=== PATIENT | female | born 1950 | race Caucasian/White ===

== ENCOUNTER 2017-04-05 12:16 | Outpatient (RCR) | payer MEDICARE, OTHER, SELFPAY ==
[2017-04-05 13:59] LABS: International Normalized Ratio 2.2; Prothrombin Time (Protime)PT. 23.9 SECONDS (11.7-14.9)
== END 2017-04-05 12:17 | disposition home or self-care (01) ==
LOC: LAB 12:16
PROVIDERS: Family Provider Family Medicine; PCP Family Medicine
DX: Z79.01 Long term (current) use of 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 (principal); Z79.899 Other long term (current) drug therapy
CPT/HCPCS: 36415; 85610

== ENCOUNTER 2017-05-06 12:20 | Outpatient (RCR) | payer MEDICARE, OTHER, SELFPAY ==
[2017-04-28 17:28] LABS: Prothrombin Time (Protime)PT. 34.4 SECONDS (11.7-14.9)
[2017-04-28 17:52] LABS: International Normalized Ratio 3.6
[2017-05-06 14:16] LABS: International Normalized Ratio 2.1
== END 2017-05-06 13:00 | disposition home or self-care (01) ==
LOC: LAB 12:20
PROVIDERS: Family Provider Family Medicine; PCP Family Medicine
DX: Z79.01 Long term (current) use of 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 (principal)
CPT/HCPCS: 36415; 85610

== ENCOUNTER → 2017-05-20 14:38 | Outpatient (CLI) | payer MEDICARE, OTHER, SELFPAY | PROVIDERS: Family Provider Family Medicine; PCP Family Medicine; Visit Provider Family Medicine | DX: N30.00 Acute cystitis without hematuria (principal); I48.91 Unspecified atrial fibrillation | CPT/HCPCS: 87086; 87088; 87186 ==

== ENCOUNTER → 2017-06-16 11:24 | Outpatient (CLI) | payer MEDICARE, OTHER, SELFPAY ==
[2017-06-16 16:03] LABS: International Normalized Ratio 2.7; Prothrombin Time (Protime)PT. 29.2 SECONDS (11.7-14.9)
== END ==
PROVIDERS: Family Provider Family Medicine; PCP Family Medicine
DX: Z79.01 Long term (current) use of 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 (principal); R39.11 Hesitancy of micturition
CPT/HCPCS: 36415; 85610; 87086

== ENCOUNTER → 2017-07-08 14:37 | Outpatient (CLI) | payer MEDICARE, OTHER, SELFPAY ==
[2017-07-08 17:13] LABS: International Normalized Ratio 2.3; Prothrombin Time (Protime)PT. 25.6 SECONDS (11.7-14.9)
== END ==
PROVIDERS: Family Provider Family Medicine; PCP Family Medicine
DX: Z79.01 Long term (current) use of 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 (principal)
CPT/HCPCS: 36415; 85610

== ENCOUNTER 2017-07-21 14:00 | Outpatient (RCR) | payer MEDICARE, OTHER, SELFPAY ==
--- NOTE | 2017-06-22 12:12 | HP.PTEVAL_ITS ---
Patient's Visit Information SVEN ALEJO is a 67 year old F referred to Physical Therapy by Everette Adkins MD with a diagnosis of Right Knee. Date of Evaluation: 06/22/17 Physical Therapist: Ivett García - Visit Plan Frequency: 2x /Week Duration: 4 Weeks Plan: Focus on LE and core s/s. - Subjective Subjective: Pt reports that one night she came home and slipped on water in her basement and landed on her R knee - pt knee was bleeding and was in excruciating pain. Pt called upstairs for and they called ambulance to take her to [facility] and the next day she had a aditya and screws placed in her femur - done by Dr. Stallworth. Fell on june 27, had surgery the - released from hospital on 07/25/16. During hospitalization, pt had small stroke and 2 blood clots. Pt reports that she had both knees replaced about a 2 years ago - L knee replaced june 2015 and R knee august [address] Adkins. Patient reports that the hip is good- no pain but the knee is not great. New in the past year she has had a hip injection about 4 months ago for bursitis. No new surgeries. It still clicks, grinds and carries on due to bone grown and bone spur. He could scrap with surgery but doesn?t want to due to infection. 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 Her main concern is that she doesn?t trust the right knee it just reji under her. MD is not as concerned about it as she is but thinks it needs strength. Has to use steps at work and uses them non recip but is nervous to carry things in her hands. Fear of falling when the knee reji. Worst pain is 2/10 with weather changes, stairs, and extra use. Best : 0/10 Eases: rest. Pain is located in the knee itself- no radiating pain. The feet get ice cold but they are N/T. Describes pain as dull and achy- no sharp/shooting for about 4 months. Uses a walker when she goes long distances or uneven surfaces. Sleep: is still sleeping in the recliner- but in the process of getting a new elevated bed for GERD and the knee. PMHx: no changes Meds: coumade, losartan, Prilosec, altase. X-rays last week on the knee. - Objective Posture: FH, RS. Gait: antalgic- decreased stance on the right LE- poor heel/ toe pattern secondary to decreased ROM. HR/TR: able but reports discomfort with heel raise. SLS: can SLS but required UE A. Stairs: non recip with 2 HR. Palpation: tender throughout knee joint medial and lateal joint lines, quad and down the calf to the ankle. ROM: 0-95 degrees with firm end feel. Strength : Ankle: 5/5 Knee: flexion: 4/5, extn: 4-/5, Hip: 4-/5 throughout Core: fair minus - Goals Goal 1:: Patient will be I with HEP and progression Goal Time Frame: 4-6 Weeks Goal 2:: Patient will ambulate >300 feet with a normalized gait pattern Goal Time Frame: 4-6 Weeks Goal 3:: Patient will asc/desc 8 recip with 1 HR Goal Time Frame: 4-6 Weeks Goal 4:: Patient will demo 4+/5 strength in LE Goal Time Frame: 4-6 Weeks - Rehabilitation Potential Physical Therapy Diagnosis: Patient presents with hypomobility- she has decreased ROM, strength and muscular endurance s/p multiple surgeries to the right knee. Rehabilitation Potential: Fair - Anticipated Interventions Patient/Client Instruction: Educate patient on: Benefits of Fitness Program For the Purpose of:: To increase tolerance to activity/condition/position Therapeutic Exercise to Include: Strength training, Endurance training, Balance training, Agility training, Body mechanics, Postural training, Gait and locomotor training, Dynamic Lumbar Stabilization For the Purpose of:: To improve muscle performance and motor function TENS: Yes Cryotherapy (ice pack, ice massage): Yes Thermo therapy (hot pack): Yes Ultrasound (thermal/non thermal): No For the Purpose of:: To decrease pain Thank you for the opportunity to evaluate your patient. For Medicare and Medicare HMO plans, please review the plan of care and approve it. It will need to be FAXED BACK to us at [phone] for Medicare purposes. Please let me know if there are questions or concerns regarding this plan of care. Physician Signature: Date:
--- NOTE | 2017-07-21 14:24 | HP.PTDCSUM_ITS ---
HP - PT D/C Summary It has been my pleasure to treat SVEN ALEJO under orders from Everette Adkins MD, for the diagnosis of Right Knee for a total of 9 visit(s). Discharge Date: Please see the following information for a summary of their discharge status. - Subjective Subjective: Patient reports that the soreness is the same- doesn't feel its muscle feels its more bone related. Goes back to [place] in 3 months but will call sooner. - Pain Right knee Pain Intensity (Out of 10): 4 - Overall Improvement % Improvement: 50 - Objective Objective/Function: Posture: FH, RS. Gait: antalgic- decreased stance on the right LE- poor heel/toe pattern secondary to decreased ROM. HR/TR: able but reports discomfort with heel raise. SLS: can SLS but required UE A. Stairs: non recip with 2 HR due to pain. Palpation: tender throughout knee joint medial and lateal joint lines, quad and down the calf to the ankle. ROM: 0-95 degrees with firm end feel. Strength: Ankle: 5/5 Knee: flexion: 4+/5, extn: 4/5 , Hip: 4/5 throughout Core: fair minus - Goals Goal 1:: Patient will be I with HEP and progression Goal Progress: Goal Met Goal 2:: Patient will ambulate >300 feet with a normalized gait pattern Goal Progress: Progressing Goal 3:: Patient will asc/desc 8 recip with 1 HR Goal Progress: Progressing Goal 4:: Patient will demo 4+/5 strength in LE Goal Progress: Progressing - Plan Plan: Discharge- return to MD for further evaluation - D/C Information If there are questions or concerns regarding this patient's physical therapy, please feel free to call me at [phone]. Thank you for the referral of this patient. Sincerely, Ivett García
== END 2017-07-21 19:00 | disposition home or self-care (01) ==
LOC: PT 14:00
PROVIDERS: Family Provider Family Medicine; PCP Family Medicine; Visit Provider Specialist
DX: M97.11XD Periprosthetic fracture around internal prosthetic right knee joint, subsequent encounter (principal); Z96.651 Presence of right artificial knee joint
CPT/HCPCS: 97110; 97162; 97164

== ENCOUNTER → 2017-08-23 13:40 | Outpatient (CLI) | payer MEDICARE, OTHER, SELFPAY ==
[2017-08-23 16:04] LABS: International Normalized Ratio 2.6; Prothrombin Time (Protime)PT. 28.1 SECONDS (11.7-14.9)
== END ==
PROVIDERS: Family Provider Family Medicine; PCP Family Medicine
DX: Z79.01 Long term (current) use of 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 (principal)
CPT/HCPCS: 36415; 85610

== ENCOUNTER → 2017-10-18 13:45 | Outpatient (CLI) | payer MEDICARE, OTHER, SELFPAY ==
[2017-10-18 15:58] LABS: International Normalized Ratio 2.6; Prothrombin Time (Protime)PT. 28.3 SECONDS (11.7-14.9)
== END ==
PROVIDERS: Family Provider Family Medicine; PCP Family Medicine
DX: Z79.01 Long term (current) use of 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 (principal)
CPT/HCPCS: 36415; 85610

== ENCOUNTER → 2017-12-12 11:01 | Outpatient (CLI) | payer MEDICARE, OTHER, SELFPAY ==
[2017-12-12 15:33] LABS: International Normalized Ratio 2.3
== END ==
PROVIDERS: Family Provider Family Medicine; PCP Family Medicine
DX: Z79.01 Long term (current) use of 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 (principal)
CPT/HCPCS: 36415; 85610

== ENCOUNTER → 2018-02-20 10:01 | Outpatient (CLI) | payer MEDICARE, OTHER, SELFPAY ==
[2018-02-20 12:18] LABS: International Normalized Ratio 2.2; Prothrombin Time (Protime)PT. 24.6 SECONDS (11.7-14.9)
--- OUTSIDE RECORDS SUMMARY | 2018-05-24 23:00 | XMS RPT_ITS | Summary of Care ---
:1950 Author Organization [facility] Address [address] [place] [address] Care Team Providers Name Role Phone Jad Pepe MD Primary Care Provider Reason for Referral Cardio (Routine) Status Reason Specialty Diagnoses / Referred By Referred To Procedures Contact Contact Pending Review Cardiology Diagnoses Bilateral carotid artery stenosis Peres, Jas Procedures Carotid Duplex MD cT [address] [address] Cardio (Routine) Status Reason Specialty Diagnoses / Referred By Referred To Procedures Contact Contact Pending Review Cardiology Diagnoses Bilateral carotid artery stenosis Peres, Jas Procedures Carotid Duplex MD Tc [address] [place] [address] Reason for Visit Cardio (Routine) Status Reason Specialty Diagnoses / Referred By Referred To Procedures Contact Contact Pending Review Cardiology Diagnoses Bilateral carotid artery stenosis Peres, Jas Procedures Carotid Duplex MD Tc [address] [address] Encounter Details Date Type Department Care Team Description 12/26/2017 Hospital Encounter [facility] Heart & Peres, Jas Bilateral carotid Vascular Physicians MD Tc artery stenosis [address] [facility] [address] [place], [place] [phone] [address] Allergies Active Allergy Reactions Severity Noted Date Comments Metformin Diarrhea Medium 10/23/2014 Pt currently taking even with complaints of diarrhea. Nsaids (Non-Steroidal Other (See Comments) 10/23/2014 nausea Anti-Inflammatory Drug) Fluoxetine 03/17/2016 Tevstll-Uxt-Obm Low 04/06/2017 Right upper quadrant Reductase Inhibitors pain with atorva, rosuva, simva, prava as of this encounter Medications Prescription Sig. Disp. Refills Start Date End Date Status warfarin (COUMADIN) 5 Take 1 (one) 45 tablet 11 05/10/2017 Active MG tabletIndications: tablet (5 mg 5mg 5 day's a week total) by mouth 7.5mg two days a week daily OR as directed. sotalol (BETAPACE) 120 Take 1 (one) 180 tablet 3 05/10/2017 Active MG tablet tablet (120 mg total) by mouth 2 (two) times a day. losartan-hydrochlorothi Take 1 (one) 90 tablet 3 05/31/2017 Active azide (HYZAAR) 50-12.5 tablet by mouth mg per tablet daily. as of this encounter Active Problems Problem Noted Date CVA (cerebral vascular accident) (HCC) 10/10/2016 Last Assessment & Plan: Postoperative stroke last year and it was unclear if it was related to A. fib and a subtherapeutic INR versus carotid stenosis. She has done well on her current regimen. I will repeat carotid duplex imaging. Bilateral carotid artery stenosis 10/10/2016 Last Assessment & Plan: History of mild disease in the right, 70% by noninvasive imaging per outside facility, I will repeat a duplex in May 2017 to make sure there has not been any progression. Atrial fibrillation ([facility]) 10/23/2014 Last Assessment & Plan: She is in sinus rhythm today. Her EKGs during hospitalization for the flu also demonstrated sinus rhythm. Continue warfarin and sotalol, no changes HTN (hypertension) 10/23/2014 Last Assessment & Plan: Her losartan hydrochlorothiazide was discontinued during hospitalization due to hypovolemia and acute kidney injury. Blood pressure is fantastic today at 117/78 yesterday was elevated in the 150s. I did not restart her medicines and I asked her to continue monitoring home blood pressure we can always restart it as needed. Diabetes ([facility]) 10/23/2014 Last Assessment & Plan: Improved after weight loss Dyslipidemia associated with type 2 diabetes mellitus (HCC) 10/23/2014 Last Assessment & Plan: She tells me that she has right upper quadrant pain with statins and she tells me she has tried Crestor, pravastatin, Lipitor and Zocor. She is unable to tolerate these meds, she may need something like a PCSK 9 inhibitor. Obviously cost is going to be an issue there so we will have to work through insurance. Social History Tobacco Use Types Packs/Day Years Used Date Never Smoker Smokeless Tobacco: Never Used Alcohol Use Drinks/Week oz/Week Comments Yes 0 Standard drinks or equivalent 0.0 once yearly Sex Assigned at Date Recorded Not on file as of this encounter Plan of Treatment Upcoming Encounters Date Type Specialty Care Team Description 12/28/2017 Office Visit Cardiology Jas Peres MD [address] [place] [address] [phone] Health Maintenance Due Date Last Done Comments CLASS III : CREATININE 1950 CLASS III : EKG 1950 CLASS III : MAGNESIUM 1950 CLASS III : POTASSIUM 1950 COLONOSCOPY 1950 DEXA SCAN 1950 HEPATITIS C SCREENING 1948 FOOT EXAM 1958 OPHTHALMOLOGY EXAM 1958 URINE MICROALBUMIN 1958 ZOSTER VACCINES (1 of 2) 1998 PNEUMOCOCCAL VACCINE AGE 65+ (1 of 2013 2 - PCV13) HEMOGLOBIN A1C 03/23/2015 09/20/2014, 05/01/2014 CLASS III : OFFICE VISIT 10/04/2017 04/06/2017, 10/06/2016, 03/17/2016, Additional history exists SEQUENTIAL INFLUENZA VACCINE (#1) 2017 TETANUS EVERY 10 YR 09/09/2023 09/08/2013 as of this encounter Procedures Procedure Name Priority Date/Time Associated Diagnosis Comments US DOPPLER CAROTID Routine 12/26/2017 12:46 PM Bilateral carotid Results for this EDT artery stenosis procedure are in the results section. in this encounter Results US DOPPLER CAROTID (12/26/2017 12:46 PM) Narrative Performed At Non-Invasive Vascular EM RAD Patient:? MELO ERWINBRIANNE Vickie? Med Rec#:?[id number]? (Age): 1950(67y) ? Study Date:?12/26/2017? Room#:? Type:?Outpatient? Sex:? F Reading:?Jas Peres MD, RPVI Referring:?JAS PERES ASHVIN Supervisor Fur Dressing:?Lori Rasheed RD, RVT Procedure Info:? [id number] Study Quality:?Carotid Duplex: adequate Diagnosis: I65.22?Occlusion and stenosis of left carotid artery Carotid Duplex? Conclusions There was no evidence of stenosis of the right common carotid artery. There was minimal stenosis (1-19%) in the right internal carotid artery. There were elevated velocities in the right external carotid artery, suggestive of stenosis.?The right vertebral artery was patent with antegrade flow.?There was no evidence of stenosis in the right subclavian artery. There was no evidence of stenosis of the left common carotid artery. There was critical stenosis (90-99%) of the left internal carotid artery.?There were elevated velocities in the left external carotid artery, suggestive of stenosis.?The left vertebral artery was patent with antegrade flow.?There was no evidence of stenosis in the left subclavian artery. Supervisor Fur Dressing's Comments:Previous study done 05/13/2017 showed 1-39% stenosis in right ICA with peak systolic velocity 70 cm/s and peak diastolic velocity of 18 cm/s and 60-79% stenosis of left ICA with peak velocity 212 cm/s and peak diastolic velocity 46 cm/s Findings The right common carotid artery showed no evidence of plaque.?The right internal carotid artery contained a small amount of plaque, heterogeneous in consistency.?The right external carotid artery contained a moderate amount of plaque, heterogeneous in consistency. The left common carotid artery showed no evidence of plaque.?The left internal carotid artery contained a large amount of calcified plaque. The left external carotid artery contained a small amount of calcified plaque. Notify Results Results called to Dr. Jas Peres?at 12/26/2017 12:39:01. The procedure was explained to the patient.?The patient voiced understanding.? Measurements ? Right Carotid PSV ? Name? Value?Units?PCCA? 115?cm/sec?MCCA? 94.3? cm/sec?DCCA? 93.5? cm/sec?PICA? -98?cm/sec?ANIVAL? -109? cm/sec?DICA? -112? cm/sec?ECA?2 24?cm/sec?Vertebral?-43.7?cm/sec?PSCA? 107?cm/sec? Right Carotid EDV ? Name? Value?Units?PCCA? 25? cm/sec?MCCA? 24.2? cm/sec?DCCA? 27.6? cm/sec?PICA? -29.9?cm/sec?ANIVAL? -39.2?cm/sec?DICA? -36.1?cm/sec?ECA?3 1.7? cm/sec?Vertebral?-13.2?cm/sec? Left Carotid PSV ? Name? Value?Units?PCCA? 98.7? cm/sec?MCCA? 96? cm/sec?DCCA? 68? cm/sec?PICA? 580?cm/sec?ANIVAL? -322? cm/sec?DICA? -71.8?cm/sec?ECA?- 174? cm/sec?Vertebral?-54.3?cm/sec?PSCA? -118? cm/sec? Left Carotid EDV ? Name? Value?Units?PCCA? 29.5? cm/sec?MCCA? 23.1? cm/sec?DCCA? 15.2? cm/sec?PICA? 233?cm/sec?ANIVAL? -104? cm/sec?DICA? -27.6?cm/sec?ECA?- 29.2?cm/sec?Vertebral?-19.2?cm/sec? Blood Pressures and Ratios ? Name? Value?Units?R ICA/CCA?1.04? ratio?L ICA/CCA?6?rati o? History ? Carotid Artery Stenosis. ? CVA. ? Diabetes. ? Hypertension. Electronically signed at 12/26/2017 13:08:38 by: Jas Peres MD, RPVI Procedure Note Interface, Rad In Heartlab Xper [facility] - 12/26/2017 1:10 PM EDT Non-Invasive Vascular Patient: MELO Johnston [facility] Rec#: [id number] (Age): 1950(67y) Study Date: 12/26/2017 Room#: Type: Outpatient Sex: F Reading: Jas Peres MD, RPVI Referring: JAS PERES ASHVIN Supervisor Fur Dressing: Lori Rasheed IHSAN, RVT Procedure Info: [id number] Study Quality: Carotid Duplex: adequate Diagnosis: I65.22 Occlusion and stenosis of left carotid artery Carotid Duplex Conclusions There was no evidence of stenosis of the right common carotid artery. There was minimal stenosis (1-19%) in the right internal carotid artery. There were elevated velocities in the right external carotid artery, suggestive of stenosis. The right vertebral artery was patent with antegrade flow. There was no evidence of stenosis in the right subclavian artery. There was no evidence of stenosis of the left common carotid artery. There was critical stenosis (90-99%) of the left internal carotid artery. There were elevated velocities in the left external carotid artery, suggestive of stenosis. The left vertebral artery was patent with antegrade flow. There was no evidence of stenosis in the left subclavian artery. Supervisor Fur Dressing's Comments:Previous study done 05/13/2017 showed 1-39% stenosis in right ICA with peak systolic velocity 70 cm/s and peak diastolic velocity of 18 cm/s and 60-79% stenosis of left ICA with peak velocity 212 cm/s and peak diastolic velocity 46 cm/s Findings The right common carotid artery showed no evidence of plaque. The right internal carotid artery contained a small amount of plaque, heterogeneous in consistency. The right external carotid artery contained a moderate amount of plaque, heterogeneous in consistency. The left common carotid artery showed no evidence of plaque. The left internal carotid artery contained a large amount of calcified plaque. The left external carotid artery contained a small amount of calcified plaque. Notify Results Results called to Dr. Jas Peres at 12/26/2017 12:39:01. The procedure was explained to the patient. The patient voiced understanding. Measurements Right Carotid PSV Name Value Units PCCA 115 cm/sec MCCA 94.3 cm/sec DCCA 93.5 cm/sec PICA -98 cm/sec ANIVAL -109 cm/sec DICA -112 cm/sec ECA 224 cm/sec Vertebral -43.7 cm/sec PSCA 107 cm/sec Right Carotid EDV Name Value Units PCCA 25 cm/sec MCCA 24.2 cm/sec DCCA 27.6 cm/sec PICA -29.9 cm/sec ANIVAL -39.2 cm/sec DICA -36.1 cm/sec ECA 31.7 cm/sec Vertebral -13.2 cm/sec Left Carotid PSV Name Value Units PCCA 98.7 cm/sec MCCA 96 cm/sec DCCA 68 cm/sec PICA 580 cm/sec ANIVAL -322 cm/sec DICA -71.8 cm/sec ECA -174 cm/sec Vertebral -54.3 cm/sec PSCA -118 cm/sec Left Carotid EDV Name Value Units PCCA 29.5 cm/sec MCCA 23.1 cm/sec DCCA 15.2 cm/sec PICA 233 cm/sec ANIVAL -104 cm/sec DICA -27.6 cm/sec ECA -29.2 cm/sec Vertebral -19.2 cm/sec Blood Pressures and Ratios Name Value Units R ICA/CCA 1.04 ratio L ICA/CCA 6 ratio History Carotid Artery Stenosis. CVA. Diabetes. Hypertension. Electronically signed at 12/26/2017 13:08:38 by: Jas Peres MD, VI Performing Organization Address City/State/Zipcode Phone Number [facility] [address] [place] [address] in this encounter Visit Diagnoses Diagnosis Bilateral carotid artery stenosis Occlusion and stenosis of carotid artery without mention of cerebral infarction
--- OUTSIDE RECORDS SUMMARY | 2018-05-24 23:00 | XMS RPT_ITS | Summary of Care ---
:1950 Author Organization [facility] Address [address] [place] [address] Care Team Providers Name Role Phone Jad Pepe MD Primary Care Provider Reason for Referral MRI/CAT/PET Scan (Routine) Status Reason Specialty Diagnoses / Procedures Referred By Contact Referred To Contact Closed Radiology Diagnoses Bilateral carotid artery stenosis Vic Christie, Procedures CT Angiogram Neck [address] [place] [address] Reason for Visit MRI/CAT/PET Scan (Routine) Status Reason Specialty Diagnoses / Procedures Referred By Contact Referred To Contact Closed Radiology Diagnoses Bilateral carotid artery stenosis Vic Christie, Procedures CT Angiogram Neck [address] [address] Encounter Details Date Type Department Care Team Description 01/05/2018 Documentation [facility] Physicians Vic Christie, Arrived Group [address] [place] [id number] Allergies Active Allergy Reactions Severity Noted Date Comments Fluoxetine Hcl Other (See Comments) 03/18/2017 Isosorbide Other (See Comments) 03/18/2017 Metformin Diarrhea Medium 10/23/2014 Pt currently taking even with complaints of diarrhea. Nsaids (Non-Steroidal Other (See Comments) 10/23/2014 nausea Anti-Inflammatory Drug) Fluoxetine 03/17/2016 Gvbgqmp-Xog-Trv Low 04/06/2017 Right upper quadrant Reductase Inhibitors [...] tablet by mouth mg per tablet daily. glipiZIDE (GLUCOTROL) 5 Take 5 mg by 1 11/16/2017 Active MG tablet mouth 2 (two) times a day. loratadine (CLARITIN) Take 10 mg by 07/23/2016 Active 10 mg tablet mouth at bedtime. famotidine (PEPCID) 10 Take 10 mg by 07/23/2016 Active MG tablet mouth daily. HEALTHPRO GLUCOSE Use to check 0 11/16/2017 Active MONITOR Misc blood sugars once daily and as needed HEALTHPRO TEST STRIPS use to check 5 11/16/2017 Active strips blood sugar once daily and as needed albuterol sulfate Inhale 1-2 puffs 03/20/2017 Active (PROAIR HFA INHL) daily as needed. as of this encounter Active Problems Problem [...] has not been any progression. Atrial fibrillation (HCC) 10/23/2014 Last Assessment & Plan: She is [...] can always restart it as needed. Diabetes (HCC) 10/23/2014 Last Assessment & Plan: Improved after [...] Encounters Date Type Specialty Care Team Description 01/09/2018 Appointment Cardiology Vic Christie MD [address] [place] [address] [phone] 01/09/2018 Appointment Cardiology Vic Christie MD [address] [address] [phone] 01/09/2018 Appointment Cardiology Vic Christie MD [address] [place] [address] [phone] 01/09/2018 Appointment Cardiology Vic Christie MD [address] [place], [place] [id number] Health Maintenance Due Date Last Done Comments [...] YR 09/09/2023 09/08/2013 as of this encounter Visit Diagnoses Diagnosis Bilateral carotid artery stenosis Occlusion and stenosis of carotid artery without mention of cerebral infarction
--- OUTSIDE RECORDS SUMMARY | 2018-05-24 23:00 | XMS RPT_ITS | Summary of Care ---
:1950 Author Organization [facility] Address [address] [place] [address] Care Team Providers Name Role Phone Jad Pepe MD Primary Care Provider Encounter Details Date Type Department Care Team Description 12/26/2017 Hospital Encounter [facility] Christie, Vic [address] [place] [address] [address] [place] [address] Allergies Active Allergy Reactions Severity Noted Date Comments Metformin Diarrhea Medium 10/23/2014 Pt currently taking even with complaints of diarrhea. Nsaids (Non-Steroidal Other (See Comments) 10/23/2014 nausea Anti-Inflammatory Drug) Fluoxetine 03/17/2016 Xfmpovh-Ywf-Fso Low 04/06/2017 Right upper quadrant Reductase Inhibitors [...] Care Team Description 12/28/2017 Office Visit Cardiology Vic Christie MD [address] [place] [address] [phone] Health Maintenance Due Date Last Done Comments [...]
--- OUTSIDE RECORDS SUMMARY | 2018-05-24 23:00 | XMS RPT_ITS | Summary of Care ---
:1950 Author Organization [facility] Address [address] [place] [address] Care Team Providers Name Role Phone Jad Pepe MD Primary Care Provider Encounter Details Date Type Department Care Team Description 01/05/2018 Hospital Encounter [facility] Christie, Vic [address] [place] [address] [address] [place] [address] Allergies Active Allergy Reactions Severity Noted Date Comments Fluoxetine Hcl Other (See Comments) 03/18/2017 Isosorbide Other (See Comments) 03/18/2017 Metformin Diarrhea Medium 10/23/2014 Pt currently taking even with complaints of diarrhea. Nsaids (Non-Steroidal Other (See Comments) 10/23/2014 nausea Anti-Inflammatory Drug) Fluoxetine 03/17/2016 Gngufke-Pap-Ymx Low 04/06/2017 Right upper quadrant Reductase Inhibitors [...] 01/09/2018 Appointment Cardiology Vic Christie MD [address] [place], [place] [id number] 01/09/2018 Appointment Cardiology Vic Christie MD [address] [place], [place] [id number] 01/09/2018 Appointment Cardiology Vic Christie MD [address] [place], [place] [id number] 01/09/2018 Appointment Cardiology Vic Christie MD [address] [place], [place] [id number] Health Maintenance Due Date Last Done Comments [...] encounter Procedures Procedure Name Priority Date/Time Associated Comments Diagnosis MHS - CREATININE Routine 01/05/2018 3:41 PM Results for this WITH EGFR EDT procedure are in the results section. in this encounter Results Creatinine with eGFR (01/05/2018 3:41 PM) Creatinine 0.9 0.60 - 1.20 mg/dL [facility] eGFR >=60 ml/min/1.73sq.m [facility] Comment: HOSPITAL eGFR is an estimated Glomerular Filtration Rate based on the value of the patient's serum creatinine. In outpatients, eGFR should be used as a helpful tool in screening for CKD. In inpatients or patients with acute renal failure, eGFR represents the GFR at the moment of the draw and should be used with caution. eGFR >=60 ml/min/1.73sq.m [facility] Specimen Blood Performing Organization Address City/State/Zipcode Phone Number [facility] [address] [place] [address] in this encounter
--- OUTSIDE RECORDS SUMMARY | 2018-05-24 23:01 | XMS RPT_ITS | Summary of Care ---
:1950 Author Organization [facility] Address [address] [place] [address] Care Team Providers Name Role Phone Jad Pepe MD Primary Care Provider Reason for Referral MRI/CAT/PET Scan (Routine) Status Reason Specialty Diagnoses / Procedures Referred By Contact Referred To Contact Closed Radiology Diagnoses Bilateral carotid artery stenosis Vic Christie, Procedures CT Angiogram Neck [address] [place] [address] Nuclear Medicine (Routine) Status Reason Specialty Diagnoses / Procedures Referred By Referred To Contact Contact Authorized Radiology Diagnoses Preop cardiovascular exam Dyslipidemia associated with type 2 diabetes mellitus (HCC) Vic Christie Procedures NM Myocardial Perfusion Multiple SPECT MD Tc [address] [place] [address] Reason for Visit Reason Comments Follow-up Carotid done 12/26 Encounter Details Date Type Department Care Team Description 12/28/2017 Office Visit [facility] Vic Christie Bilateral carotid artery stenosis (Primary Dx); Office MD Tc Atrial fibrillation, unspecified type ([facility]); 45 [facility] [address] Preop cardiovascular exam; [place], [place] [address] [place] [address] Dyslipidemia associated with type 2 diabetes mellitus ([facility]); [phone] [place], [place] Essential hypertension; [address] Cerebrovascular accident (CVA), unspecified mechanism ([facility]) [phone] Allergies Active Allergy Reactions Severity Noted Date Comments Fluoxetine Hcl Other (See Comments) 03/18/2017 Isosorbide Other (See Comments) 03/18/2017 Metformin Diarrhea Medium 10/23/2014 Pt currently taking even with complaints of diarrhea. Nsaids (Non-Steroidal Other (See Comments) 10/23/2014 nausea Anti-Inflammatory Drug) Fluoxetine 03/17/2016 Ntayrek-Vqc-Lpq Low 04/06/2017 Right upper quadrant Reductase Inhibitors [...] has done well on her current regimen. Bilateral carotid artery stenosis 10/10/2016 Last Assessment & Plan: Recent duplex shows a significant change in her left-sided velocities, I will quantify it with a carotid CTA, she may need endarterectomy if it has progressed significantly Atrial fibrillation (HCC) 10/23/2014 Last Assessment & Plan: She feels relatively stable, continue sotalol 120 twice daily and warfarin HTN (hypertension) 10/23/2014 Last Assessment & Plan: Mild to moderately elevated today. Currently taking losartan hydrochlorothiazide 50/12.5 daily, previous blood pressures were excellent, she admits that she is a bit nervous waiting for her carotid duplex results, continue to monitor blood pressure readings Diabetes (HCC) 10/23/2014 Last Assessment & Plan: [...] Not on file as of this encounter Last Filed Vital Signs Vital Sign Reading Time Taken Blood Pressure 151/75 12/28/2017 3:10 PM EDT Pulse 70 12/28/2017 3:10 PM EDT Temperature - - Respiratory Rate - - Oxygen Saturation 96% 12/28/2017 3:10 PM EDT Inhaled Oxygen Concentration - - Weight 92.1 kg (203 lb 1.6 oz) 12/28/2017 3:10 PM EDT Height 162.6 cm (5' 4) 12/28/2017 3:10 PM EDT Body Mass Index 34.86 12/28/2017 3:10 PM EDT in this encounter Progress Notes Vic Christie MD - 12/28/2017 3:57 PM EDTFormatting of this note may be different from the original. It was a pleasure to see Laisha Walker in follow up today. Problem List Items Addressed This Visit Endocrine Dyslipidemia associated with type 2 diabetes mellitus (HCC) She tells me that she has right upper quadrant pain with statins and she tells me she has tried Crestor, pravastatin, Lipitor and Zocor. She is unable to tolerate these meds, she may need something like a PCSK 9 inhibitor. Obviously cost is going to be an issue there so we will have to work through insurance. Relevant Medications glipiZIDE (GLUCOTROL) 5 MG tablet Other Relevant Orders Lipid Panel NM Myocardial Perfusion Multiple SPECT Cardiovascular and Mediastinum Atrial fibrillation (HCC) She feels relatively stable, continue sotalol 120 twice daily and warfarin HTN (hypertension) Mild to moderately elevated today. Currently taking losartan hydrochlorothiazide 50/12.5 daily, previous blood pressures were excellent, she admits that she is a bit nervous waiting for her carotid duplex results, continue to monitor blood pressure readings CVA (cerebral vascular accident) (HCC) Postoperative stroke last year and it was unclear if it was related to A. fib and a subtherapeuticINR versus carotid stenosis. She has done well on her current regimen. Bilateral carotid artery stenosis - Primary Recent duplex shows a significant change in her left-sided velocities, I will quantify it with a carotid CTA, she may need endarterectomy if it has progressed significantly Relevant Orders CT Angiogram Neck Other Visit Diagnoses Preop cardiovascular exam Relevant Orders NM Myocardial Perfusion Multiple SPECT She comes in for follow-up from a cardiac standpoint. She denies any complaints of exertional chestpain. She is chronically short of breath with exertion. She denies any symptoms to suggest a new neurologic event. She denies any palpitations. She denies any blood in her stool or urine. We did review her recent carotid duplex study. Review of Systems Constitution: Negative for diaphoresis, malaise/fatigue, weight gain and weight loss. HENT: Positive for tinnitus. Negative for hearing loss and nosebleeds. Eyes: Positive for blurred vision and visual disturbance. Cardiovascular: Positive for claudication, dyspnea on exertion, irregular heartbeat and palpitations. Negative for chest pain, cyanosis, leg swelling, near-syncope, orthopnea, paroxysmal nocturnal dyspnea and syncope. Respiratory: Positive for snoring. Negative for hemoptysis and shortness of breath. Endocrine: Negative for cold intolerance and heat intolerance. Hematologic/Lymphatic: Bruises/bleeds easily. Skin: Negative for flushing, poor wound healing and rash. Musculoskeletal: Positive for back pain and muscle cramps. Negative for muscle weakness and myalgias. Gastrointestinal: Positive for abdominal pain and nausea. Negative for change in bowel habit, melenaand vomiting. Genitourinary: Negative for decreased libido and hematuria. Neurological: Positive for loss of balance. Negative for numbness. Psychiatric/Behavioral: Positive for memory loss. The patient is not nervous/anxious. PMH/PSH/Social Hx/List of Medications reviewed and pertinent findings noted in HPI BP (!) 151/75 Pulse 70 Ht 5' 4 Wt 92.1 kg (203 lb 1.6 oz) SpO2 96% BMI 34.86 kg/m?? Physical Exam Constitutional: She is oriented to person, place, and time. She appears well- developed and well-nourished. HENT: Head: Normocephalic and atraumatic. Right Ear: External ear normal. Left Ear: External ear normal. Nose: Nose normal. Eyes: Pupils are equal, round, and reactive to light. EOM are normal. Neck: Normal range of motion. Carotid bruit is not present. Cardiovascular: Normal rate, regular rhythm and normal heart sounds. Exam reveals no gallop and no friction rub. No murmur heard. Pulmonary/Chest: Effort normal and breath sounds normal. No respiratory distress. She has no rales. Abdominal: Soft. Neurological: She is alert and oriented to person, place, and time. Skin: Skin is warm and dry. Psychiatric: She has a normal mood and affect. Her behavior is normal. Judgment and thought content normal. Nursing note and vitals reviewed. Return in about 6 months (around 06/28/2018). Thank you for allowing to participate in the care of your patient. Should you have any questions, please do not hesitate to contact me. Best wishes and warm regards Vic Christie MD Portions of this note utilized [employer] dictation software, please excuse any typographical or grammatical errors. Mckenna Talley MA - 12/28/2017 3:09 PM EDTReview of Systems Constitution: Negative for diaphoresis, malaise/fatigue, weight gain and weight loss. HENT: Positive for tinnitus. Negative for hearing loss and nosebleeds. Eyes: Positive for blurred vision and visual disturbance. Cardiovascular: Positive for claudication, dyspnea on exertion, irregular heartbeat and palpitations. Negative for chest pain, cyanosis, leg swelling, near-syncope, orthopnea, paroxysmal nocturnal dyspnea and syncope. Respiratory: Positive for snoring. Negative for hemoptysis and shortness of breath. Endocrine: Negative for cold intolerance and heat intolerance. Hematologic/Lymphatic: Bruises/bleeds easily. Skin: Negative for flushing, poor wound healing and rash. Musculoskeletal: Positive for back pain and muscle cramps. Negative for muscle weakness and myalgias. Gastrointestinal: Positive for abdominal pain and nausea. Negative for change in bowel habit, melenaand vomiting. Genitourinary: Negative for decreased libido and hematuria. Neurological: Positive for loss of balance. Negative for numbness. Psychiatric/Behavioral: Positive for memory loss. The patient is not nervous/anxious. in this encounter Miscellaneous Notes Assessment & Plan Note - Vic Christie MD - 01/17/2018 11:11 AM EST Associated Problem(s): Bilateral carotid artery stenosisRecent duplex shows a significant change in her left-sided velocities, I will quantify it with a luque tid CTA, she may need endarterectomy if it has progressed significantly Assessment & Plan Note - Vic Christie MD - 01/17/2018 11:10 AM EST Associated Problem(s): CVA (cerebral vascular accident) (HCC)Postoperative stroke last year and it was unclear if it was related to A. fib and a subtherapeutic INR versus carotid stenosis. She has done well on her current regimen.Assessment & Plan Note - Vic Christie MD - 01/17/2018 11:10 AM ESTAssociated Problem(s): Dyslipidemia associated with type 2 diabetes mellitus (HCC)She tells me that she has right upper quadrant pain with statins and she tells me she has tried Crestor, pravastatin, Lipitor and Zocor. She is unable to tolerate these meds, she may need something like a PCSK 9 inhibitor. Obviously cost is going to be an issue there so we will have to work through i nsurance.Assessment & Plan Note - Vic Christie MD - 01/17/2018 11:09 AM ESTAssociated Problem(s): HTN (hypertension)Mild to moderately elevated today. Currently taking losartan hydrochlorothiazide 50/12.5 daily, previous blood pressures were excellent, she admits that she is a bit nervous waiting for her carotid duplex results, continue to monitor blood pressure readings Assessment & Plan Note - Vic Christie MD - 01/17/2018 11:09 AM EST Associated Problem(s): Atrial fibrillation (HCC)She feels relatively stable, continue sotalol 120 twice daily and warfarinin this encounter Plan of Treatment Upcoming Encounters Date Type Specialty Care Team Description 01/31/2018 Appointment Cardiology Vic Christie MD [address] [place], [place] [id number] 01/31/2018 Appointment Cardiology Vic Christie MD [address] [place], [place] [phone] 01/31/2018 Appointment Cardiology Vic Christie MD [address] [place], [place] [phone] 01/31/2018 Appointment Cardiology Vic Christie MD [address] [place], [place] [phone] Scheduled Tests Name Priority Associated Diagnoses Order Schedule Lipid Panel Routine Dyslipidemia associated with 1 Occurrences starting type 2 diabetes mellitus 12/28/2017 until ([facility]) 12/28/2018 NM Myocardial Perfusion Routine Preop cardiovascular exam 1 Occurrences starting Multiple SPECT Dyslipidemia associated with 12/28/2017 until type 2 diabetes mellitus 12/28/2018 ([facility]) CT Angiogram Neck Routine Bilateral carotid artery 1 Occurrences starting stenosis 12/28/2017 until 12/28/2018 Health Maintenance Due Date Last Done Comments [...] - PCV13) HEMOGLOBIN A1C 03/23/2015 09/20/2014, 05/01/2014 SEQUENTIAL INFLUENZA VACCINE (#1) 2017 CLASS III : OFFICE VISIT 06/28/2018 12/28/2017, 04/06/2017, 10/06/2016, Additional history exists TETANUS EVERY 10 YR 09/09/2023 09/08/2013 as of this encounter Procedures Procedure Name Priority Date/Time Associated Diagnosis Comments ECG 12-LEAD Routine 12/28/2017 3:13 PM Atrial fibrillation, Results for this EDT unspecified type (HCC) procedure are in the results section. in this encounter Results ECG 12-LEAD (12/28/2017 3:13 PM) Atrial Rate Ventricular Rate P-R Interval QRS Duration Q-T Interval Q-T Interval (corrected) QTC Calculation (Bezet) P Lovell R Lovell T Lovell Narrative Performed At in this encounter Visit Diagnoses Diagnosis Bilateral carotid artery stenosis - Primary Occlusion and stenosis of carotid artery without mention of cerebral infarction Atrial fibrillation, unspecified type ([facility]) Preop cardiovascular exam Pre-operative cardiovascular examination Dyslipidemia associated with type 2 diabetes mellitus (HCC) Essential hypertension Unspecified essential hypertension Cerebrovascular accident (CVA), unspecified mechanism ([facility])
--- OUTSIDE RECORDS SUMMARY | 2018-05-24 23:01 | XMS RPT_ITS ---
:1950 Author Organization OHIP Support Name Relationship Address Phone ROCÍO ALEJO Unavailable [address] + [place] [address] R Unavailable Unavailable Unavailable ROCÍO ALEJO Unavailable [address] + [place] [address] R Unavailable Unavailable Unavailable ROCÍO ALEJO Unavailable [address] + [place] [address] ROCÍO ALEJO Unavailable [address] + [place] [address] ROCÍO ALEJO Unavailable Unavailable + ROCÍO ALEJO Unavailable [address] + [place] [address] ROCÍO ALEJO Unavailable [address] + [place] [address] ROCÍO ALEJO Unavailable [address] + [place] [address] ROCÍO ALEJO Unavailable Unavailable + ROCÍO ALEJO Unavailable [address] + [place] [address] R Unavailable Unavailable Unavailable ROCÍO ALEJO Unavailable [address] + [place] [address] R Unavailable Unavailable Unavailable ROCÍO ALEJO Unavailable [address] + [place] [address] ROCÍO ALEJO Unavailable [address] + [place] [address] R Unavailable Unavailable Unavailable ROCÍO ALEJO Unavailable [address] + [place] [address] R Unavailable Unavailable Unavailable ROCÍO ALEJO Unavailable [address] + [place] [address] R Unavailable Unavailable Unavailable ROCÍO ALEJO Unavailable [address] + [place] [address] ROCÍO ALEJO Unavailable [address] + [place] [address] ROCÍO ALEJO Unavailable [address] + [place] [address] R Unavailable Unavailable Unavailable ROCÍO ALEJO Unavailable [address] + [place] [address] R Unavailable Unavailable Unavailable ROCÍO ALEJO Unavailable [address] + [place] [address] R Unavailable Unavailable Unavailable ROCÍO ALEJO Unavailable [address] + [place] [address] ROCÍO ALEJO Unavailable [address] + [place] [address] ROCÍO ALEJO Unavailable [address] + [place] [address] R Unavailable Unavailable Unavailable ROCÍO ALEJO Unavailable [address] + [place] [address] ROCÍO ALEJO Unavailable [address] + [place] [address] R Unavailable Unavailable Unavailable Care Team Providers Name Role Phone Dr. Vic Peres MD Admitting Unavailable Dr. Vic Peres MD Attending Unavailable Dr. Vic Peres MD Admitting Unavailable Dr. Vic Peres MD Attending Unavailable Vic Peres Admitting Unavailable Vic Peres Attending Unavailable Jaycee Hall Primary Care Unavailable VIC PERES Attending Unavailable JAD PEPE Primary Care Unavailable VIC PERES Attending Unavailable JAD PEPE Primary Care Unavailable VIC PERES Admitting Unavailable JAD PEPE Referring Unavailable JAD PEPE Primary Care Unavailable VIC PERES Attending Unavailable JAD PEPE Primary Care Unavailable JOB GALEAS Attending Unavailable MY, JAD ZELDA Primary Care Unavailable LEONEL DEE Attending Unavailable MY, JAD ZELDA Primary Care Unavailable PERES, VIC KHUSHI Attending Unavailable PERES, VIC KHUSHI Referring Unavailable MY, JAD ZELDA Primary Care Unavailable PERES, VIC KHUSHI Attending Unavailable MY, JAD ZELDA Primary Care Unavailable PERES, VIC KHUSHI Admitting Unavailable MY, JAD ZELDA Referring Unavailable MY, JAD ZELDA Primary Care Unavailable ABHILASH MALAVE Attending Unavailable MY, JAD ZELDA Primary Care Unavailable PERES, VIC KHUSHI Attending Unavailable MY, JAD ZELDA Primary Care Unavailable MILLIE KAPLAN Attending Unavailable My, Jad Primary Care Unavailable My, Jad Attending Unavailable My, Jad Referring Unavailable My, Jad Primary Care Unavailable MILLIE KAPLAN Attending Unavailable MILLIE KAPLAN Referring Unavailable My, Jad Primary Care Unavailable MILLIE KAPLAN Attending Unavailable MILLIE KAPLAN Referring Unavailable My, Jad Primary Care Unavailable My, Jad Attending Unavailable My, Jad Primary Care Unavailable MILLIE KAPLAN Attending Unavailable MILLIE KAPLAN Referring Unavailable My, Jad Primary Care Unavailable My, Jad Primary Care Unavailable MILLIE KAPLAN Attending Unavailable MILLIE KAPLAN Referring Unavailable Everette Adkins Attending Unavailable JedEverette Referring Unavailable My, Jad Primary Care Unavailable My, Jad Primary Care Unavailable MILLIE KAPLAN Attending Unavailable MILLIE KAPLAN Referring Unavailable MILLIE KAPLAN Attending Unavailable My, Jad Primary Care Unavailable My, Jad Primary Care Unavailable MILLIE KAPLAN Attending Unavailable MILLIE KAPLAN Referring Unavailable My, Jad Primary Care Unavailable MILLIE KAPLAN Attending Unavailable MILLIE KAPLAN Referring Unavailable PROBLEMS PROBLEMS DATE TYPE CONDITION / CODE ATTENDING STATUS SOURCE 10/10/2016 Admitting Unspecified atrial PERESVIC [facility] diagnosis fibrillation / KH[place]HI Three I48.91(ICD-10) Repository 12/28/2017 Admitting Encounter for PERESVIC [facility] diagnosis preprocedural [place]HI Three cardiovascular Repository examination / Z01.810(ICD-10) 12/14/2017 Unknown Z79.01 - manager terminal MILLIE KAPLAN Active [place] (current) use of Community 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 / Hospital Z79.01(ICD-10) Repository 07/22/2017 Unknown M97.11XD - Everette Adkins Active [place] [facility] fracture around Hospital internal prosthetic Repository right knee joint, subsequent encounter / M97.11XD(ICD-10) 05/20/2017 Unknown N30.00 - Acute Jad Pepe Active [place] cystitis without Community hematuria / Hospital N30.00(ICD-10) Repository 05/20/2017 Unknown I48.91 - Unspecified Jad Pepe Active [place] atrial fibrillation Community / I48.91(ICD-10) Hospital Repository 10/10/2016 [facility] stenosis of [place]HI Three bilateral carotid Repository arteries / I65.23(ICD-10) 10/10/2016 Admitting Cerebral infarction, PERES, [facility] diagnosis unspecified / KHUSHI Three I63.9(ICD-10) Repository 10/23/2014 Admitting Type 2 diabetes [facility] diagnosis mellitus with other KHUSHI Three specified Repository complication / E11.69(ICD-10) 10/23/2014 Admitting Hyperlipidemia, PERESmediafeedia [facility] [email or web address] [facility] diagnosis unspecified / [place]HI Three E78.5(ICD-10) Repository 10/23/2014 Admitting Essential (primary) PERESmediafeedia [facility] diagnosis hypertension / [place] Three I10(ICD-10) Repository 10/23/2014 Admitting Paroxysmal atrial PERESmediafeedia [facility] diagnosis fibrillation / KH[place]HI Three I48.0(ICD-10) Repository 04/07/2017 Unknown Z79.899 - Other long MILLIE KAPLAN Active [place] term (current) drug Community therapy / Hospital Z79.899(ICD-10) Repository 04/07/2017 Unknown I48.0 - Paroxysmal MILLIE KAPLAN Active [place] atrial fibrillation Community Health / I48.0(ICD-10) Hospital Repository PROCEDURES PROCEDURES No Procedure Records FoundRESULTS RESULTS THYROID Observed: 02/21/2018 Status: F Source: [place] 11:53 AM [facility] REPOSITORY [facility] Imaging Services [address] [place] [address] Thyroid MR#: [id number] Acct: [id number] Name: SVEN ALEJO Rep #: [id number] : 1950 F 67 From: Shay Menon MD PCP: Jad Pepe MD Status: REG CLI Study: Thyroid Date of Exam: 02/21/18 Exam# [id number] Ordering Dr: Jad Pepe MD STUDY: THYROID ULTRASOUND REASON FOR EXAM: Female, 67 years old. Follow-up nodule TECHNIQUE: Ultrasound evaluation of the thyroid was performed with real-time and static cherry-scale imaging. COMPARISON: None FINDINGS: RIGHT LOBE: The right lobe of the thyroid gland measures 5.8 x 2.2 x 2.1 cm. There is a heterogeneous echotexture. There are numerous right thyroid lobe nodules. There is a complex cystic nodule measuring 1.0 x 1.0 x 0.4 cm with perinodular vascularity. There is a solid mixed echogenic nodule measuring 2.2 x 1.4 x 1.8 cm with intranodular vascularity. This nodule is irregularly margined. There is a complex cystic nodule with perinodular vascularity measuring 0.5 x 0.8 x 0.6 cm. LEFT LOBE: The left lobe of the thyroid gland measures 5.9 x 2.9 x 2.0 cm. There is a heterogeneous echotexture. There are numerous left thyroid lobe nodules also. There is a complex cystic nodule with perinodular vascularity measuring 1.4 x 1.0 x 1.2 cm. There is a solid hypoechoic nodule with calcification measuring 1.5 x 1.5 x 1.3 cm which demonstrates intranodular vascularity. ISTHMUS: The isthmus measures 0.4 cm . The regional lymph nodes are normal. The left and right thyroid lobes are heterogeneous in echogenicity and enlarged consistent with multinodular goiter. Numerous bilateral thyroidal nodules and complex cysts as detailed above. No previous study is available for comparison. US/Thyroid IMPRESSION: Normal ultrasound examination of the thyroid. Electronically Signed: Shay Menon MD at 16:11 EST , Service support , CC: Jad Pepe MD Truss Designer: Signed PROTHROMBIN TIME W/INR Collected: 02/20/2018 Status: F Source: [place] 10:08 AM [facility] REPOSITORY TYPE CODE TESTS RESULT OUT OF RANGE REFERENCE UNITS LAB L300.4150 11.7-14.9 SECONDS High PROTIME 24.6 LAB L300.4200 Normal INR 2.2 Performed By: #### L300.3900 #### [facility] [address] [place], [place], [address] Observed: 02/20/2018 Status: F Source: [place] CULTURE, URINE 10:00 AM [facility] REPOSITORY Urine Culture ORGANISM 1: Presumptive E. coli Blackey Count >100,000 Presumptive E. coli: REACTION Amoxacillin/Clavulanic Acid $ <=2 S Ampicillin $ 4 S Ampicillin/Sulbactam $ 4 S Cefazolin $ <=4 S Cefepime $ <=1 S Ceftriaxone $ <=1 S Ciprofloxacin $ <=0.25 S ESBL - Ertapenim $$$ <=0.5 S Gentamicin $ <=1 S Imipenem *NF <=0.25 S Levofloxacin $ <=0.12 S Nitrofurantoin $ <=16 S Piperacillin/Tazobactam $$ <=4 S Tobramycin $ <=1 S Trimethoprim/Sulfametho $ <=20 S (NF) indicates non-formulary drug at [facility]. Approval by Infectious Disease Specialist required before non-formulary drugs may be ordered and/or dispensed. Performed By: #### M100.0650 #### [facility] [address] [place], [place], [address] CTA NECK W/ OR W/ Observed: 01/05/2018 Status: F Source: [facility] ANDW/ CONTRAST 3:58 PM [facility] REPOSITORY Final Report Accession No: [id number] Performed: Jan 05 2018 3:58PM Examination: CTA NECK W/ OR W/ ANDW/ CONTRAST EXAMINATION: CTA NECK W/ OR W/ ANDW/ CONTRAST CLINICAL STATEMENT: Carotid artery stenosis. COMPARISON: None. TECHNIQUE: Spiral axial examination performed through the neck with contrast and reconstructed on an independent work station in the axial and coronal planes with maximum intensity projection and by rendering techniques. NASCET criteria used to determine the percent stenosis. Dose reduction techniques were achieved by using automated exposure control and/or adjustment of mA and/or kV according to patient size and/or use of iterative reconstruction technique. CONTRAST: 75 mL Isovue-370 contrast FINDINGS: ORIGIN OF THE GRE[place] VESSELS: No evidence of stenosis. COMMON CAROTID ARTERIES: Normal. LEFT CAROTID BIFURCATION: Atherosclerotic calcification of soft plaque with a residual lumen of 1.5 mm as compared to a cervical carotid artery lumen of 5 mm consistent with a stenosis of approximately 70%. RIGHT CAROTID BIFURCATION: Atherosclerotic calcification without stenosis. CERVICAL CAROTID ARTERIES: Normal. VERTEBRAL ARTERIES: Normal. Multinodular thyroid, no evidence of adenopathy. Lung apices are clear. Osseous structures are intact. IMPRESSION: 1. Approximately 70% stenosis of the origin of the left internal carotid artery. No evidence of stenosis of the origin right internal carotid artery. 2. Multinodular thyroid. Interpreting Physician: KEANU PARK M.D. Trans: leodan : cc: CREATININE WITH EGFR Collected: 01/05/2018 Status: F Source: [facility] 3:41 PM [facility] REPOSITORY TYPE CODE TESTS RESULT OUT OF RANGE REFERENCE UNITS LAB CREA 0.60-1.20 mg/dL Normal Creatinine 0.9 LAB eGFR ml/min/1.7 3sq.m Normal eGFR,NonAfrican- >=60 [place] Result Comment: eGFR is an estimated Glomerular Filtration Rate based on the value of the patient's serum creatinine. In outpatients, eGFR should be used as a helpful tool in screening for CKD. In inpatients or patients with acute renal failure, eGFR represents the GFR at the moment of the draw and should be used with caution. LAB eGFRB ml/min/1.73sq.m eGFR, Normal -Swazi >=60 Performed By: #### CREAT #### Unless otherwise noted, all testing performed by [facility] [address] [place], [place] [address] CLIA: [id number] Therapy Technician: Uche Carmichael M.D. US DOPPLER CAROTID Observed: 12/26/2017 Status: F Source: [facility] 1:08 PM THREE REPOSITORY Non-Invasive Vascular Patient: MELO Johnston [facility] Rec#: [id number] (Age): 1950(67y) Study Date: 12/26/2017 Room#: Type: Outpatient Sex: F Reading: Vic Peres MD, RPVI Referring: VIC PERES ASHVIN Heading Saw Operator: Lori Rasheed RDCS, RVT Procedure Info: 80686 Study Quality: Carotid Duplex: adequate Diagnosis: I65.22 [...] of stenosis in the left subclavian artery. Heading Saw Operator's Comments:Previous study done 05/13/2017 showed 1-39% stenosis [...] plaque. Notify Results Results called to Dr. Vic Peres at 12/26/2017 12:39:01. The procedure was [...] cm/sec DCCA 68 cm/sec PICA 580 cm/sec ANVIAL -322 cm/sec DICA -71.8 cm/sec ECA -174 [...] Hypertension. Electronically signed at 12/26/2017 13:08:38 by: Vic Peres MD, RPVI PROTHROMBIN TIME W/INR Collected: 12/12/2017 Status: F Source: [place] 11:05 AM [facility] REPOSITORY Order Comment: FAX [id number] TYPE CODE TESTS RESULT OUT OF RANGE REFERENCE UNITS LAB L300.4150 11.7-14.9 SECONDS High PROTIME 25.0 LAB L300.4200 Normal INR 2.3 Performed By: #### L300.3900 #### [facility] [address] [place] [address], [id number] PROTHROMBIN TIME W/INR Collected: 10/18/2017 Status: F Source: [place] 2:00 PM [facility] REPOSITORY Order Comment: DR.TEJASASHVIN PERES [facility] TYPE CODE TESTS RESULT OUT OF RANGE REFERENCE UNITS LAB L300.4150 11.7-14.9 SECONDS High PROTIME 28.3 LAB L300.4200 Normal INR 2.6 Performed By: #### L300.3900 #### [facility] [address] [facility] [place], [address] PROTHROMBIN TIME W/INR Collected: 08/23/2017 Status: F Source: [place] 1:55 PM [facility] REPOSITORY TYPE CODE TESTS RESULT OUT OF RANGE REFERENCE UNITS LAB L300.4150 11.7-14.9 SECONDS High PROTIME 28.1 LAB L300.4200 Normal INR 2.6 Performed By: #### L300.3900 #### [facility] [address] [place], [address] PT D/C SUMMARY (1) Observed: 07/21/2017 Status: F Source: [place] 2:24 PM [facility] REPOSITORY [facility] [address] [place], [place] [address] Fax REHABILITATION SERVICES DISCHARGE SUMMARY MR#: [id number] Acct: [id number] Name: SVEN ALEJO Rep #: [id number] : 1950 67 From: Ivett HOUSTONT Referring Dr.: Everette Adkins MD Status: REG RCR Insurance: MEDICARE PART A B [employer] [facility] - PT D/C Summary It has been my pleasure to treat SVEN ALEJO under orders from Everette Adkins MD, for the diagnosis of Right Knee for a total of 9 visit(s). Discharge Date: Please see the following information for a summary of their discharge status. - Subjective Subjective: Patient reports that the soreness is the same- doesn't feel its muscle feels its more bone related. Goes back to [place] in 3 months but will call sooner. - Pain Right knee Pain Intensity (Out of 10): 4 - Overall Improvement % Improvement: 50 - Objective Objective/Function: Posture: FH, RS. Gait: antalgic- decreased stance on the right LE- poor heel/toe pattern secondary to decreased ROM. HR/TR: able but reports discomfort with heel raise. SLS: can SLS but required UE A. Stairs: non recip with 2 HR due to pain. Palpation: tender throughout knee joint medial and lateal joint lines, quad and down the calf to the ankle. ROM: 0-95 degrees with firm end feel. Strength: Ankle: 5/5 Knee: flexion: 4+/5, extn: 4/5, Hip: 4/5 throughout Core: fair minus - Goals Goal 1:: Patient will be I with HEP and progression Goal Progress: Goal Met Goal 2:: Patient will ambulate >300 feet with a normalized gait pattern Goal Progress: Progressing Goal 3:: Patient will asc/desc 8 recip with 1 HR Goal Progress: Progressing Goal 4:: Patient will demo 4+/5 strength in LE Goal Progress: Progressing - Plan Plan: Discharge- return to MD for further evaluation - D/C Information If there are questions or concerns regarding this patient's physical therapy, please feel free to call me at [phone]. Thank you for the referral of this patient. Sincerely, Ivett García <Electronically signed by Ivett García DPT> 07/21/17 1424 CC: Jad Pepe; Everette Adkins MD ELR Signed PROTHROMBIN TIME W/INR Collected: 07/08/2017 Status: F Source: [place] 2:39 PM [facility] REPOSITORY TYPE CODE TESTS RESULT OUT OF RANGE REFERENCE UNITS LAB L300.4150 11.7-14.9 SECONDS High PROTIME 25.6 LAB L300.4200 Normal INR 2.3 Performed By: #### L300.3900 #### [facility] [address] [place], [address] INITAL EVALUATION (1) Observed: 06/22/2017 Status: F Source: [place] - PT 12:12 PM [facility] REPOSITORY [facility] [address] [place] [address]. [address] [place], [place] [address] Fax REHABILITATION SERVICES INITIAL EVALUATION MR#: [id number] Acct: [id number] Name: SVEN ALEJO Rep #: [id number] : 1950 67 From: Ivett García DPT Referring Dr.: Everette Adkins MD Status: REG RCR Insurance: MEDICARE PART A B [facility] Patient's Visit Information SVNE ALEJO is a 67 year old F referred to Physical Therapy by Everette Adkins MD with a diagnosis of Right Knee. Date of Evaluation: 06/22/17 Physical Therapist: Ivett García - Visit Plan Frequency: 2x /Week Duration: 4 Weeks Plan: Focus on LE and core s/s. - Subjective Subjective: Pt reports that one night she came home and slipped on water in her basement and landed on her R knee - pt knee was bleeding and was in excruciating pain. Pt called upstairs for and they called ambulance to take her to [facility] and the next day she had a aditya and screws placed in her femur - done by Dr. Malave. Fell on june 27, had surgery the - released from hospital on 07/25/16. During hospitalization, pt had small stroke and 2 blood clots. Pt reports that she had both knees replaced about a 2 years ago - L knee replaced june 2015 and R knee august [address] Adkins. Patient reports that the hip is good- no pain but the knee is not great. New in the past year she has had a hip injection about 4 months ago for bursitis. No new surgeries. It still clicks, grinds and carries on due to bone grown and bone spur. He could scrap with surgery but doesn t want to due to infection. 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 Her main concern is that she doesn t trust the right knee it just reji under her. MD is not as concerned about it as she is but thinks it needs strength. Has to use steps at work and uses them non recip but is nervous to carry things in her hands. Fear of falling when the knee reji. Worst pain is 2/10 with weather changes, stairs, and extra use. Best: 0/10 Eases: rest. Pain is located in the knee itself- no radiating pain. The feet get ice cold but they are N/T. Describes pain as dull and achy- no sharp/shooting for about 4 months. Uses a walker when she goes long distances or uneven surfaces. Sleep: is still sleeping in the recliner- but in the process of getting a new elevated bed for GERD and the knee. PMHx: no changes Meds: coumade, losartan, Prilosec, altase. X-rays last week on the knee. - Objective Posture: FH, RS. Gait: antalgic- decreased stance on the right LE- poor heel/toe pattern secondary to decreased ROM. HR/TR: able but reports discomfort with heel raise. SLS: can SLS but required UE A. Stairs: non recip with 2 HR. Palpation: tender throughout knee joint medial and lateal joint lines, quad and down the calf to the ankle. ROM: 0-95 degrees with firm end feel. Strength: Ankle: 5/5 Knee: flexion: 4/5, extn: 4-/5, Hip: 4-/5 throughout Core: fair minus - Goals Goal 1:: Patient will be I with HEP and progression Goal Time Frame: 4-6 Weeks Goal 2:: Patient will ambulate >300 feet with a normalized gait pattern Goal Time Frame: 4-6 Weeks Goal 3:: Patient will asc/desc 8 recip with 1 HR Goal Time Frame: 4-6 Weeks Goal 4:: Patient will demo 4+/5 strength in LE Goal Time Frame: 4-6 Weeks - Rehabilitation Potential Physical Therapy Diagnosis: Patient presents with hypomobility- she has decreased ROM, strength and muscular endurance s/p multiple surgeries to the right knee. Rehabilitation Potential: Fair - Anticipated Interventions Patient/Client Instruction: Educate patient on: Benefits of Fitness Program For the Purpose of:: To increase tolerance to activity/condition/position Therapeutic Exercise to Include: Strength training, Endurance training, Balance training, Agility training, Body mechanics, Postural training, Gait and locomotor training, Dynamic Lumbar Stabilization For the Purpose of:: To improve muscle performance and motor function TENS: Yes Cryotherapy (ice pack, ice massage): Yes Thermo therapy (hot pack): Yes Ultrasound (thermal/non thermal): No For the Purpose of:: To decrease pain Thank you for the opportunity to evaluate your patient. For Medicare and Medicare HMO plans, please review the plan of care and approve it. It will need to be FAXED BACK to us at [phone] for Medicare purposes. Please let me know if there are questions or concerns regarding this plan of care. Physician Signature: Date: <Electronically signed by Ivett García DPT> 06/22/17 1212 CC: Jad Pepe; Everette Adkins MD ELR Signed For Medicare only, by signing this I certify the plan of care. Physicians Signature Date Observed: 06/16/2017 Status: F Source: [place] CULTURE, URINE 11:33 AM [facility] REPOSITORY SEND URINE TO DR. LAN ONLY Urine Culture Culture exhibits no growth. Performed By: #### M100.0650 #### [facility] [address] [place], [address] PROTHROMBIN TIME W/INR Collected: 06/16/2017 Status: F Source: [place] 11:28 AM [facility] REPOSITORY Order Comment: [id number] FAX TYPE CODE TESTS RESULT OUT OF RANGE REFERENCE UNITS LAB L300.4150 11.7-14.9 SECONDS High PROTIME 29.2 LAB L300.4200 Normal INR 2.7 Performed By: #### L300.3900 #### [facility] [address] [place], [place], [address] Observed: 05/20/2017 Status: F Source: [place] CULTURE, URINE 2:46 PM [facility] REPOSITORY Urine Culture ORGANISM 1: Presumptive E. coli Blackey Count >100,000 Presumptive E. coli: REACTION Amoxacillin/Clavulanic Acid $ 4 S Ampicillin $ 8 S Ampicillin/Sulbactam $ 4 S Cefazolin $ <=4 S Cefepime $ <=1 S Ceftriaxone $ <=1 S Ciprofloxacin $ <=0.25 S ESBL - Ertapenim $$$ <=0.5 S Gentamicin $ <=1 S Imipenem *NF <=0.25 S Levofloxacin $ <=0.12 S Nitrofurantoin $ <=16 S Piperacillin/Tazobactam $$ <=4 S Tobramycin $ <=1 S Trimethoprim/Sulfametho $ <=20 S (NF) indicates non-formulary drug at [facility]. Approval by Infectious Disease Specialist required before non-formulary drugs may be ordered and/or dispensed. Performed By: #### M100.0650 #### [facility] [address] [place], [address] PROTHROMBIN TIME W/INR Collected: 04/28/2017 Status: F Source: [place] 3:12 PM [facility] REPOSITORY TYPE CODE TESTS RESULT OUT OF REFERENCE UNITS RANGE LAB L300.4150 11.7-14.9 SECONDS High PROTIME 34.4 LAB L300.4200 High alert INR 3.6 Result Comment: CRITICAL VALUE VERIFIED. CALLED TO DR. PERES 04/28/17 1751 Enid Larsen. RESULTS READ BACK BY SAME . Performed By: #### L300.3900 #### [facility] [address] [place], [place], [address] PROTHROMBIN TIME W/INR Collected: 04/05/2017 Status: F Source: [place] 12:44 PM [facility] REPOSITORY TYPE CODE TESTS RESULT OUT OF RANGE REFERENCE UNITS LAB L300.4150 11.7-14.9 SECONDS High PROTIME 23.9 LAB L300.4200 Normal INR 2.2 Performed By: #### L300.3900 #### [facility] [address] [place], [place], [address] ALLERGIES ALLERGIES DATE TYPE / CODE NAME / CODE REACTION SEVERITY SOURCE Drug PUMKOTS-ELH-TZX Low [place] [address] Class/042787056(SN REDUCTASE Three OMED CT) INHIBITORS Repository Drug fluoxetine Other Unknown [place] 8 Allergy/140081395( HCl/D860897634(RXN Community SNOMED [facility]) OR) Hospital Repository Drug isosorbide/E730162 Other Unknown [place] 8 Allergy/623742049( 687(RXNORM) Community SNOMED CT) Hospital Repository Drug metformin/X7367772 Nausea/Vom/Yari Unknown [place] 8 Allergy/851399869( 34(RXNORM) rrhea Community SNOM[facility]) Hospital Repository Drug celecoxib/O0325742 Nausea/Vom/Yari Unknown [place] 8 Allergy/339803954( 31(RXNORM) rrhea [facility] Hospital Repository DRUG FLUOXETINE HCL Other [place] [address] INGREDI/514505850( Three SN[address]) Repository DRUG ISOSORBIDE Other [place] [address] INGREDI/613490108( Three SN[address]) Repository DRUG FLUOXETINE [facility] 7 INGREDI/091136940( Three SN[address]) Repository DRUG METFORMIN Diarrhea Med [facility] 5 INGREDI/996546833( Three SN[address]) Repository Drug NSAIDS Other [place] [address] Class/635190297(SN (NON-STEROIDAL Three OMED CT) ANTI-INFLAMMATORY Repository DRUG) Drug/700086746(SNO ciprofloxacin IRREGULAR [place]aoism MED CT) HEARTBEAT [facility] Repository Drug/554947281(SNO No Known Allergies Hoahaoism MED CT) [facility] Repository Drug/120194160(SNO sulfa drugs Nausea [facility] MED CT) [facility] Repository Miscellaneous Cardizem Heart Palp. [place] Allergy/547425277( Regional SNOM[facility]) [facility] System Repository Miscellaneous Vasotec cough [place] Allergy/616985792( Regional SNOMED [facility]) Health System Repository Miscellaneous Lipitor [place] Allergy/846519690( Regional SNOMED [facility]) [facility] System Repository Drug/042049666(SNO NSAIDs cough [place]aoism MED CT) [facility] Repository ENCOUNTERS ENCOUNTERS ADMIT/DISCHARGE ACCOUNT NUMBER ADMITTING ENCOUNTER LOCATION SOURCE CLASS 02/21/2018 [id number] Ambulatory [facility] ding:US Repository 02/20/2018 [id number] Ambulatory [facility] ding:BFAB Repository 01/12/2018 [id number] Ambulatory Building:[facility] Three BPKWY Repository 01/12/2018 [id number] [facility] Three BPKW[facility] Repository 01/05/[id number] Ambulatory [facility] Repository 01/05/2018/01/10/20 [id number] VIC PERES Ambulatory Building:[place] [address] [facility] Three LOCATION Repository 12/28/2017/12/29/19 [id number] [address] Three BPKW[place] Repository 12/26/2017/12/27/19 [id number] Ambulatory Building:[place] [address] X Three Repository 12/26/[id number] Ambulatory [facility] Repository 12/12/2017 [id number] Ambulatory [facility] ding:BFHLAB Repository 10/18/2017 [id number] Ambulatory [facility] ding:BFHLAB Repository 08/25/2017 [id number] Ambulatory Building:[facility] Three D Repository 08/23/2017 [id number] Ambulatory [facility] ding:BFHLAB Repository 07/21/2017/07/22/19 [id number] Ambulatory [address] ding:PT Repository 07/08/2017 [id number] Ambulatory [facility] ding:BFHLAB Repository 06/24/2017 [id number] [facility] 06/17/2017 [id number] Ambulatory Building:[facility] Three D Repository 06/16/2017 [id number] Ambulatory [facility] ding:BFHLAB Repository 06/06/2017 [id number] Ambulatory [facility] ding:LAB Repository 05/20/2017 [id number] Ambulatory [facility] ding:BFHLAB Repository 05/13/2017/05/14/19 [id number] Vic Peres Ambulatory [address] ding:[facility] IO Repository 05/13/2017/05/14/19 [id number] VIC PERES Ambulatory Building:[place] [address] [facility] Three LOCATION Repository 05/09/2017 [id number] Ambulatory Building:[facility] Three Repository 05/06/2017/05/07/19 [id number] Ambulatory [address] ding:LAB Repository 04/06/2017/04/06/19 [id number] Ambulatory Building:[address] Repository 04/05/2017/04/05/19 [id number] Ambulatory [place] 18 [facility] ding:LAB Repository PAYERS PAYERS ENCOUNTER GUARANTOR PAYER SUBSCRIBER SOURCE 02/21/2018 SVEN Johnston Primary SVEN Reis [id number] [place] Insurance:MEDICARE CRAMERDOB: [place], [place] PART A [facility] [id number] Hospital [address]Wbv: (330) Number: Repository [phone] () [id number] Date:2018-02-20 02/21/2018 Secondary SVEN Hortonoster Insurance:MUTUAL OF CRAMERDOB: [facility] Number: [id number] Hospital [id number] Repository Date:6980-53-64XPDUQB OF [place], [place] [address]DT: 02/21/2018 Tertiary NOT GIVENUNK [place] Insurance:SELF PAY [facility] Number: Effective Repository Date:2018-02-20 02/20/2018 Sven Johnston Primary Sven Reis [id number] [place] Insurance:MEDICARE CramerDOB: [place] PART A [facility] [id number] Hospital [address]Lul: (330) Number: Repository [phone] () [id number] Date:2018-02-20 02/20/2018 Secondary Sven Johnston [place] Insurance:MUTUAL OF CramerDOB: [facility] Number: [id number] Hospital [id number] Repository Date:7582-20-19RRSULE [place], [place] [address]HP: 02/20/2018 Tertiary NOT GIVENUNK [place] Insurance:SELF PAY [facility] Number: Effective Repository Date:2018-02-20 01/12/2018 SVEN Johnston Primary SVEN [facility] CRAMERDOB: Insurance:MEDICAREPol CRAMERDOB: Three Repository icy Number: [id number] OJ[place] [id number] [place], [place] Date:0312-31-08CGT [place], [place] [address]Jpn: (999) J15 PART A CLAIMSPO [address]Fic: (HP) [address]KIQYGPWBW, [phone] (HP) [place] [address]NS: 01/12/2018 Secondary [facility] Health Insurance:COMMERCIALP CRAMERDOB: Three Repository olicy Number: [id number] OJEDA Date:7358-66-61UASFTH [place], [place] OF [facility], [address]Guz: (999) [place] [address]PD: [phone] (HP) 01/12/2018 [facility] Insurance:MEDICAREPol [facility]ER[facility] TUCSONDOB: Three Repository icy Number: [id number] [place] [id number] [place], [place] Date:5489-47-95[place]TAWOLF [place], [place] [address]Nhp: (999) J15 PART A CLAIMSPO [id number]: (HP) [address]KXCJBNTQD, [phone] (HP) [place] [address]MO: 01/12/2018 Secondary [facility] Health Insurance:COMMERCIALP CRAMERDOB: Three Repository olicy Number: [id number] [place] Date:2835-34-46XJDPSV [place], [place] OF [facility], [address]Oht: (999) [place] [address]ST: [phone] (HP) 01/05/2018 Primary [facility] Insurance:MedicarePol CRAMERDOB: [place] and icy Number: [id number] [facility] [id number] OJEDA Repository Date:4077-68-79Iaeo [place], [place] Name:Donna [place] [id number] 01/05/2018 Secondary [facility] Insurance:MedicarePol CRAMERDOB: [place] and icy Number: [id number] [facility] [id number] [place] Repository Date:4611-59-78ZebkLake [place], [place] Name:Donna Kim [address] 01/05/2018 Tertiary [facility] Insurance:[place] CRAMERDOB: [place] [facility] Number: [id number] [facility] [id number] OJEDA Repository Date:Plan [place] Name[facility] [address] [facility] [place] [address]SX: 01/05/2018 SVEN Johnston Primary SVEN [facility]: Insurance:MEDICAREPol CRAMERDOB: Three Repository icy Number: [id number] OJ[place] [id number] [place] Date:0476-48-84JNVWOLF LAKE, [place] [address]Xcx: (999) U15 PART A CLAIMSPO [id number]: (HP) [address]JTAGMBMNT, [phone] (HP) [place] [address]JZ: 01/05/2018 Secondary [facility] Insurance:COMMERCIALP CRAMERDOB: Three Repository olicy Number: [id number] [place] Date:1704-98-90FIKJBGPL[place]OU[place], [place] OF [facility], [address]Pig: (999) [place] [address]HA: [phone] (HP) 12/28/2017 SVEN Johnston Primary SVEN [facility]: Insurance:MEDICAREPol [facility] WESTMERDOB: Three Repository icy Number: [id number] [place] [id number] [place], [place] Date:5794-68-44VBXWOLF LAKE, [place] [address]Xdl: (999) J15 PART A CLAIMSPO [address]Tdg: (HP) [address]PYTFKUYID, [phone] (HP) [place] [address]LH: 12/28/2017 [facility] Insurance:COMMERCIALP CRAMERDOB: Three Repository olicy Number: [id number] O[place] Date:2053-33-66GALSBB [facility], [address]Ltq: (999) [place] [address]LQ: [phone] (HP) 12/26/2017 [facility] Insurance:MEDICAREPol CRAMERDOB: Three Repository icy Number: [id number] OJ[place]A [id number] [place], [place] Date:4694-04-29AVTWOLF LAKE, [place] [address]Mdn: (999) J15 PART A CLAIMSPO [address]Iqt: (HP) [address]LBHCGZYNX, [phone] (HP) [place] [address]FT: 12/26/2017 [facility] Insurance:COMMERCIALP CRAMERDOB: Three Repository olicy Number: [id number] OJEDA Date:5579-72-73NFDHHO [facility], [address]Nxq: (999) [place] [address]UN: [phone] (HP) 12/26/2017 Primary [facility] Insurance:MedicarePol CRAMERDOB: [place] p[place]s icy Number: [id number] [facility] [id number] OJEDA Repository Date:5231-37-15Eslw [place] Name:Donna Overton [address] 12/26/2017 Secondary [facility] Insurance:MedicarePol CRAMERDOB: [place] Number: [id number] [facility] [id number] OJEDA Repository Date:0803-14-03Jypz [place] Name:Donna Kim [address] 12/26/2017 [facility] Insurance:[place] CRAMERDOB: [place] [facility] Number: [id number] [facility] [id number] OJEDA Repository Date:[facility] [place] Name:Health[employer] of [address] [place], [place] [address]ZQ: 12/12/2017 Orlandoholden Johnston Primary Sven Reis [id number] [place] Insurance:MEDICARE CramerDOB: [place] PART A [facility] [id number] Hospital [address]Ilf: (330) Number: Repository [phone] () [id number] Date:2017-12-12 12/12/2017 Secondary Orlandoholden Johnston [place] Insurance:MUTUAL OF CramerDOB: [facility] Number: [id number] Hospital [id number] Repository Date:2314-80-12AGDWJF [place], [place] [address]OI: 12/12/2017 Tertiary NOT GIVENUNK [place] Insurance:SELF PAY [facility] Number: Effective Repository Date:2017-12-12 10/18/2017 Sven Johnston Primary Sven Reis [id number] [place] Insurance:MEDICARE CramerDOB: [place] PART A [facility] [id number] Hospital [address]Dta: (330) Number: Repository [phone] () [id number] Date:2017-10-18 10/18/2017 Secondary Sven Johnston [place] Insurance:MUTUAL OF CramerDOB: [facility] Number: [id number] Hospital [id number] Repository Date:2340-13-09CMAOAL OF [place], [place] [address]UU: 10/18/2017 Tertiary NOT GIVENUNK [place] Insurance:SELF PAY [facility] Number: Effective Repository Date:2017-10-18 08/25/2017 SVEN Johnston Primary SVEN Johnston [facility] CRAMERDOB: Insurance:MEDICAREPol CRAMERDOB: Three Repository icy Number: [id number] [place] [id number] [place] Date:2427-48-86UWG [place], [place] [address]Afn: (112) A90 PART A CLAIMSPO [id number]: (HP) [address] [address]KIPYQRSCK, [phone] (HP) [place] [address]BV: 08/25/2017 Secondary SVEN Johnston [facility] Insurance:COMMERCIALP CRAMERDOB: Three Repository olicy Number: [id number] O[place] Date:5178-59-30WDAOJW [facility], [address]Ivw: (877) NX 9858721[address]TB: [phone] () 08/23/2017 Sven Johnston Primary Sven Reis [id number] [place] Insurance:MEDICARE CramerDOB: [facility] [place] PART A BPolicy [id number] Hospital [address]Pvs: (330) Number: Repository [phone] () [id number] Date:2017-08-23 08/23/2017 Secondary Sven Reis Insurance:MUTUAL OF CramerDOB: [facility] Number: [id number] Hospital [id number] Repository Date:3448-41-19IPOIXDDUNCAN [facility] [place] [address]JJ: 08/23/2017 Tertiary NOT GIVENUNK [place] Insurance:SELF PAY [facility] Number: Effective Repository Date:2017-08-23 07/21/2017 Sven Johnston Primary Sven Reis [id number] [place] Insurance:MEDICARE CramerDOB[facility] [place] BPolic [id number] Hospital [address]Gur: (330) Number: Repository [phone] () [id number] Date:2013-10-05 07/21/2017 Secondary Sven Johnston [place] Insurance:MUTUAL OF CramerDOB: [facility] Number: [id number] Hospital [id number] Repository Date:1883-03-15WDQLEALUMBER [place]ID[place], [place] [address]WT: 07/21/2017 Tertiary NOT GIVENUNK [place] Insurance:SELF PAY [facility] Number: Effective Repository Date:2017-06-16 07/08/2017 Sven Johnston Primary Sven Hortonoster [id number] [place] Insurance:MEDICARE CramerDOB: [facility] [place] A [facility] [id number] Hospital [address]Wvd: (330) Number: Repository [phone] () [id number] Date:2017-07-08 07/08/2017 Secondary Sven Johnston [place] Insurance:MUTUAL OF CramerDOB: [facility] Number: [id number] Hospital [id number] Repository Date:4542-36-46PEMAWQWEST [place], [place] [address]PP: 07/08/2017 Tertiary NOT GIVENUNK [place] Insurance:SELF PAY [facility] Number: Effective Repository Date:2017-07-08 06/24/2017 SVEN Johnston Primary SVEN Johnston [facility]: Insurance:MEDICAREPol [facility] WESTMERDOB: [facility] Repository icy Number: [id number] [place] [id number] [place] Date:9358-83-70RKV [place] [address]Clp: (623) J15 PART A CLAIMSPO [address]Ddn: () [address]XJUZRIMCT, [phone] () [place] [address]GI: 06/24/2017 Secondary SVEN Johnston [facility] Insurance:COMMERCIALP CRAMERDOB: Three Repository olicy Number: [id number] [place] Date:8404-99-19IPVGOJ KEL[place]YBRANDY [facility], [address]Dif: 330) [place] [address]PN: [phone] (HP) 06/17/2017 SVEN Johnston Primary SVEN Johnston [facility] CRAMERDOB: Insurance:MEDICAREPol CRAMERDOB: Three Repository icy Number: [id number] [place] [id number] [place] Date:7789-74-20ISH [place], [place] [address]Xbm: ([phone] C03 PART A CLAIMSPO [address]Ety: (HP) [address]IZFULJXUI, [phone] (HP) [place] [address]AO: 06/17/2017 Secondary SVEN Johnston [facility] Insurance:COMMERCIALP CRAMERDOB: Three Repository olicy Number: [id number] [place] Date:6588-74-24BXTVHE [facility], [address]Fxc: 330) [place] [address]QQ: [phone] (HP) 06/16/2017 Orlandoholden Johnston Primary Sven Reis [place] [address] [place] Insurance:MEDICARE CramerDOB: [facility] [place] PART [place] BPolicy [id number] Hospital [address]Zqs: (330) Number: Repository [phone] (HP) [id number] Date:2017-06-16 06/16/2017 Secondary Sven Reis Insurance:MUTUAL OF CramerDOB: [facility] Number: [id number] Hospital [id number] Repository Date:3744-32-56DREBLKDUNCAN REGIONAL [facility] [place], [place] [address]LT: 06/16/2017 Tertiary NOT GIVENUNK [place] Insurance:SELF PAY [facility] Number: Effective Repository Date:2017-06-16 06/06/2017 Sven Johnston Primary Sven [id number] [place] Insurance:MEDICARE CramerDOB: [facility] [place] olic [id number] Hospital [address]Srz: (330) Number: Repository [phone] () [id number] Date:2017-04-07 06/06/2017 Secondary Sven Johnston [place] Insurance:MUTUAL OF CramerDOB: [facility] Number: [id number] Hospital [id number] Repository Date:5125-05-15BHOXRLLUMBER BRIDGE, [place] [address]XG: 06/06/2017 Tertiary NOT GIVENUNK [place] Insurance:SELF PAY [facility] Number: Effective Repository Date:2017-06-06 05/20/2017 Sven Johnston Primary Sven [id number] [place] Insurance:MEDICARE CramerDOB: [facility] PART A [facility] [id number] Hospital [address]Kyg: (330) Number: Repository [phone] () [id number] Date:2017-05-20 05/20/2017 Secondary Sven Johnston [place] Insurance:MUTUAL OF CramerDOB: [facility] Number: [id number] Hospital [id number] Repository Date:3821-34-74RCIECPWEST [place], [place] [address]ZI: 05/20/2017 Tertiary NOT GIVENUNK [place] Insurance:SELF PAY [facility] Number: Effective Repository Date:2017-05-20 05/13/2017 SVEN Johnston Primary SVEN GATICAB: Insurance:MedicarePol [facility]: [facility] [id number] icy Number: Effective [id number] System OJEDA Date:2017-04-06 - OJEDA Repository [place], [place] 4113-12-60Xeyr [place] [address]Ziz: Name:CD:[id number] [address]Wfm: [address]PPAEZVUQSI, [place] (HP) [phone]: (639) () [phone] (WP) 05/13/2017 Secondary SVEN Johnston [place] Insurance:MUTUAL OF [facility]: [facility] Number: [id number] System Effective OJEDA Repository Date:2017-04-06 - [place] 1811-26-09Perq [id number]: Name:CD:[id number] OF [place], [place] ()Tel: [phone]: (WP) [phone] 05/13/2017 SVEN Vickie Primary SVEN Johnston [facility]: Insurance:MEDICAREPol [facility] Three Repository icy Number: [id number] OJEDA [id number] [place], [place] Date:7887-28-32OKJWOLF LAKE, [place] [address]Vaz: (122) H96 PART A CLAIMSPO [address]Hmz: () [address] [address]OMXZGHZCF, [phone] () [place] [address]VM: 05/13/2017 Secondary SVEN Johnston [facility] Insurance:COMMERCIALP CRAMERDOB: Three Repository olicy Number: [id number] OJEDA Date:5597-31-56ENLUYN [place] OF [facility], [address]Jgn: 330) [place]A [address]BZ: [phone] () 05/09/2017 SVEN Johnston Primary ORLANDOHOLDEN Johnston [facility]: Insurance:MEDICAREPol [facility] WESTMERDOB: Three Repository icy Number: [id number] OJEDA [id number] OJEDA [facility] [place] Date:1945-52-16EYLSUGARLOAF, [place] [address]Qcu: (330) J15 PART A CLAIMSPO [address]Zar: (HP) [address] [address]THFEBBKUB, [phone] (HP) [place] [address]QF: 05/09/2017 Secondary SVEN Johnston [facility] Insurance:COMMERCIALP CRAMERDOB: Three Repository olicy Number: [id number] OJEDA Date:5842-72-61YLPRMD [facility], [address]Vjz: 330) [place] [address]ZT: [phone] () 05/06/2017 Sven Johnston Primary Sven [place] [address] [place] Insurance:MEDICARE CramerDOB: [place], [place] PART A BPolicy [id number] Hospital [address]Clb: (330) Number: Repository [phone] () [id number] Date:2017-04-07 05/06/2017 Secondary Sven Reis Insurance:MUTUAL OF CramerDOB: [facility] Number: [id number] Hospital [id number] Repository Date:4167-14-91XNZOXP [facility] [place] [address]MJ: 05/06/2017 Tertiary NOT GIVENUNK [place] Insurance:SELF PAY [facility] Number: Effective Repository Date:2017-04-07 04/06/2017 SVEN Johnston Primary SVEN Johnston [facility]: Insurance:MEDICAREPol CRAMERDOB: Three Repository icy Number: [id number] OJEDA [id number] [place] Date:7023-01-92RRXWOLF LAKE, [place] [address]Icc: (330) J15 PART A CLAIMSPO [address]Ubo: () [address] [address]XVRBUJUQC, [phone] () [place] [address]AX: 04/06/2017 Secondary SEVN Johnston [facility] Insurance:COMMERCIALP CRAMERDOB: Three Repository [facility] Number: [id number] OJEDA Date:9073-40-06FREWLC [facility] [address]Qog: (833) [place] [address]JA: [phone] () 04/05/2017 Sven Johnston Primary Sven Hortonoster [id number] [place] Insurance:MEDICARE CramerDOB: [facility] [place] A [facility] [id number] Hospital [address]Vte: (330) Number: Repository [phone] () [id number] Date:2017-04-05 04/05/2017 Secondary Sven Reis Insurance:MUTUAL OF [facility] HospitalmerD[facility]: [facility] Number: [id number] Hospital [id number] Repository Date:8723-71-75WNAXEJDUNCAN REGIONAL [facility] [place] [address]TZ: 04/05/2017 Tertiary NOT GIVENUNK [place] Insurance:SELF PAY [facility] Number: Effective Repository Date:2017-04-05
== END ==
PROVIDERS: Family Provider Family Medicine; PCP Family Medicine
DX: N39.0 Urinary tract infection, site not specified (principal); Z79.01 Long term (current) use of 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
CPT/HCPCS: 36415; 85610; 87086; 87088; 87186

== ENCOUNTER → 2018-02-21 11:48 | Outpatient (CLI) | payer MEDICARE, OTHER, SELFPAY ==
--- NOTE | 2018-02-21 11:53 | US_ITS ---
STUDY: THYROID ULTRASOUND REASON FOR EXAM: Female, 67 years old. Follow-up nodule TECHNIQUE: Ultrasound evaluation of the thyroid was performed with real-time and static cherry-scale imaging. COMPARISON: None FINDINGS: RIGHT LOBE: The right lobe of the thyroid gland measures 5.8 x 2.2 x 2.1 cm. There is a heterogeneous echotexture. There are numerous right thyroid lobe nodules. There is a complex cystic nodule measuring 1.0 x 1.0 x 0.4 cm with perinodular vascularity. There is a solid mixed echogenic nodule measuring 2.2 x 1.4 x 1.8 cm with intranodular vascularity. This nodule is irregularly margined. There is a complex cystic nodule with perinodular vascularity measuring 0.5 x 0.8 x 0.6 cm. LEFT LOBE: The left lobe of the thyroid gland measures 5.9 x 2.9 x 2.0 cm. There is a heterogeneous echotexture. There are numerous left thyroid lobe nodules also. There is a complex cystic nodule with perinodular vascularity measuring 1.4 x 1.0 x 1.2 cm. There is a solid hypoechoic nodule with calcification measuring 1.5 x 1.5 x 1.3 cm which demonstrates intranodular vascularity. ISTHMUS: The isthmus measures 0.4 cm . The regional lymph nodes are normal. The left and right thyroid lobes are heterogeneous in echogenicity and enlarged consistent with multinodular goiter. Numerous bilateral thyroidal nodules and complex cysts as detailed above. No previous study is available for comparison. US/Thyroid IMPRESSION: Normal ultrasound examination of the thyroid. Electronically Signed: Shay Menon MD at 16:11 EST , Service support ,
--- OUTSIDE RECORDS SUMMARY | 2018-05-25 21:19 | XMS RPT_ITS ---
:1950 Author Organization OHIP Support Name Relationship Address Phone ROCÍO ALEJO Unavailable [address] + [place] [address] R Unavailable Unavailable Unavailable ROCÍO ALEJO Unavailable [address] + [place] [address] R Unavailable Unavailable Unavailable ROCÍO ALEJO Unavailable [address] + [place] [address] ROCÍO ALEJO Unavailable [address] + [place] [address] ROCÍO ALEJO Unavailable Unavailable + ROCÍO ALEJO Unavailable [address] + [place] [address] ROCÍO ALEJO Unavailable [address] + [place] [address] ROCÍO ALEJO Unavailable [address] + [place] [address] ROCÍO ALEJO Unavailable Unavailable + ROCÍO ALEJO Unavailable [address] + [place] [address] R Unavailable Unavailable Unavailable ROCÍO ALEJO Unavailable [address] + [place] [address] R Unavailable Unavailable Unavailable ROCÍO ALEJO Unavailable [address] + [place] [address] ROCÍO ALEJO Unavailable [address] + [place] [address] R Unavailable Unavailable Unavailable ROCÍO ALEJO Unavailable [address] + [place] [address] R Unavailable Unavailable Unavailable ROCÍO ALEJO Unavailable [address] + [place] [address] R Unavailable Unavailable Unavailable ROCÍO ALEJO Unavailable [address] + [place] [address] ROCÍO ALEJO Unavailable [address] + [place] [address] ROCÍO ALEJO Unavailable [address] + [place] [address] R Unavailable Unavailable Unavailable ROCÍO ALEJO Unavailable [address] + [place] [address] R Unavailable Unavailable Unavailable ROCÍO ALEJO Unavailable [address] + [place] [address] R Unavailable Unavailable Unavailable ROCÍO ALEJO Unavailable [address] + [place] [address] ROCÍO ALEJO Unavailable [address] + [place] [address] ROCOÍ ALEJO Unavailable [address] + [place] [address] R Unavailable Unavailable Unavailable ROCÍO ALEJO Unavailable [address] + [place] [address] ROCÍO ALEJO Unavailable [address] + [place] [address] R Unavailable Unavailable Unavailable Care Team Providers Name Role Phone Pratik BRYANT, Dr. Vic Overton Attending Unavailable Dr. Vic Peres MD Admitting Unavailable Dr. 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 / Hospital Z79.01(ICD-10) Repository 07/22/2017 Unknown M97.11XD - Everette Adkins Active [place] Periprosthetic Community fracture around Hospital internal prosthetic Repository right knee joint, subsequent encounter / M97.11XD(ICD-10) 05/20/2017 Unknown N30.00 - Acute Jad Pepe Active [place] cystitis without Community hematuria / Hospital N30.00(ICD-10) Repository 05/20/2017 Unknown I48.91 - Unspecified Jad Pepe Active [place] atrial fibrillation Community / I48.91(ICD-10) Hospital Repository 10/10/2016 Admitting [facility] stenosis of [place]HI Three bilateral carotid Repository arteries / I65.23(ICD-10) 10/10/2016 Admitting Cerebral infarction, PERES, [facility] diagnosis unspecified / [place] Three I63.9(ICD-10) Repository 10/23/2014 Admitting Type 2 diabetes [facility] diagnosis mellitus with other K[facility]HI Three specified Repository complication / E11.69(ICD-10) 10/23/2014 Admitting Hyperlipidemia, PERESShirley Mae's [facility] RemoteReality [facility] diagnosis unspecified / [place] Three E78.5(ICD-10) Repository 10/23/2014 Admitting Essential (primary) PERESShirley Mae's [facility] diagnosis hypertension / [place] Three I10(ICD-10) Repository 10/23/2014 Admitting Paroxysmal atrial PERESShirley Mae's [facility] diagnosis fibrillation / K[facility]HI Three I48.0(ICD-10) Repository 04/07/2017 Unknown Z79.899 - Other long MILLIE KAPLAN Active [place] term (current) drug Community therapy / Hospital Z79.899(ICD-10) Repository 04/07/2017 Unknown I48.0 - Paroxysmal MILLIE KAPLAN Active [place] atrial fibrillation [facility] / I48.0(ICD-10) Hospital Repository PROCEDURES PROCEDURES No Procedure Records FoundRESULTS RESULTS THYROID Observed: 02/21/2018 Status: F Source: [place] 11:53 AM [facility] REPOSITORY [facility] Imaging Services [address] [place] [address] Thyroid MR#: [id number] Acct: [id number] Name: SVEN ALEJO Rep #: [id number] : 1950 F 67 From: Shay Menon MD PCP: Jad Pepe MD Status: REG CLI Study: Thyroid Date of Exam: 02/21/18 Exam# [id number] Ordering Dr: Jad Pepe MD STUDY: THYROID [...] Service support , CC: Jad Pepe MD Thermal Technician: Signed PROTHROMBIN TIME W/INR Collected: 02/20/2018 Status: F Source: [place] 10:08 AM [facility] REPOSITORY TYPE CODE TESTS RESULT OUT OF RANGE REFERENCE UNITS LAB L300.4150 11.7-14.9 SECONDS High PROTIME 24.6 LAB L300.4200 Normal INR 2.2 Performed By: #### L300.3900 #### [facility] Laboratory [address] [place], [place], [address] Observed: 02/20/2018 Status: F Source: [place] CULTURE, URINE 10:00 AM [facility] REPOSITORY Urine Culture ORGANISM 1: Presumptive E. coli Wales Count >100,000 Presumptive E. coli: REACTION Amoxacillin/Clavulanic [...] <=20 S (NF) indicates non-formulary drug at [facility] Pharm[facility]. Approval by Infectious Disease Specialist required before non-formulary drugs may be ordered and/or dispensed. Performed By: #### M100.0650 #### [facility] Laboratory [address] [place], [place], [address] CTA NECK W/ OR W/ Observed: 01/05/2018 Status: F Source: [facility] ANDW/ CONTRAST 3:58 PM [facility] REPOSITORY Final Report Accession No: [id number] Performed: Jan 05 2018 3:58PM Examination: [...] WITH EGFR Collected: 01/05/2018 Status: F Source: [facility] 3:41 PM [facility] REPOSITORY TYPE CODE TESTS RESULT OUT OF RANGE REFERENCE UNITS LAB CREA 0.60-1.20 mg/dL Normal Creatinine 0.9 LAB eGFR ml/min/1.7 3sq.m Normal eGFR,NonAfrican- >=60 Guinean Result Comment: eGFR is an estimated Glomerular Filtration Rate based on the value of the patient's serum creatinine. In outpatients, eGFR should be used as a helpful tool in screening for CKD. In inpatients or patients with acute renal failure, eGFR represents the GFR at the moment of the draw and should be used with caution. LAB eGFRB ml/min/1.73sq.m eGFR, Normal -Guinean >=60 Performed By: #### CREAT #### Unless otherwise noted, all testing performed by [place] [address] [place], [place] [address] CLIA: [id number] Isobutylene Operator Chief: Uche Carmichael M.D. US DOPPLER CAROTID Observed: 12/26/2017 Status: F Source: [facility] 1:08 PM THREE REPOSITORY Non-Invasive Vascular Patient: MELO Johnston [facility] Rec#: [id number] (Age): 1950(67y) Study Date: 12/26/2017 Room#: Type: Outpatient Sex: F Reading: Vic Peres MD, RPVI Referring: VIC PERES ASHVIN Bacon De Rinder: Lori Rasheed RDCS, RVT Procedure Info: 93857 Study Quality: Carotid Duplex: adequate Diagnosis: I65.22 [...] of stenosis in the left subclavian artery. Bacon De Rinder's Comments:Previous study done 05/13/2017 showed 1-39% stenosis [...] TIME W/INR Collected: 12/12/2017 Status: F Source: [place] 11:05 AM [facility] REPOSITORY Order Comment: FAX [id number] TYPE CODE TESTS RESULT OUT OF RANGE REFERENCE UNITS LAB L300.4150 11.7-14.9 SECONDS High PROTIME 25.0 LAB L300.4200 Normal INR 2.3 Performed By: #### L300.3900 #### [facility] Laboratory [address] [place] [address], [address] PROTHROMBIN TIME W/INR Collected: 10/18/2017 Status: F Source: [place] 2:00 PM [facility] REPOSITORY Order Comment: DR.TEJASASHVIN PERES [facility] HEART AND VASCULAR PHYSICIANS TYPE CODE TESTS RESULT OUT OF RANGE REFERENCE UNITS LAB L300.4150 11.7-14.9 SECONDS High PROTIME 28.3 LAB L300.4200 Normal INR 2.6 Performed By: #### L300.3900 #### [facility] Laboratory [address] [facility] [place], [address] PROTHROMBIN TIME W/INR Collected: 08/23/2017 Status: F Source: [place] 1:55 PM [facility] REPOSITORY TYPE CODE TESTS RESULT OUT OF RANGE REFERENCE UNITS LAB L300.4150 11.7-14.9 SECONDS High PROTIME 28.1 LAB L300.4200 Normal INR 2.6 Performed By: #### L300.3900 #### [facility] Laboratory [address] [place], [address] PT D/C SUMMARY (1) Observed: 07/21/2017 Status: F Source: [place] 2:24 PM [facility] REPOSITORY [facility] Physical Therapy [facility] [address] [place], [place] [address] Fax REHABILITATION SERVICES DISCHARGE SUMMARY MR#: [id number] Acct: [id number] Name: SVEN ALEJO Rep #: [id number] : 1950 67 From: Ivett HOUSTONT Referring Dr.: Everette Adkins MD Status: REG RCR Insurance: MEDICARE PART A B [employer] [place] - PT D/C Summary It has [...] please feel free to call me at [phone]. Thank you for the referral of this patient. Sincerely, Ivett García <Electronically signed by Ivett García DPT> 07/21/17 1424 CC: Jad Pepe; Everette Adkins MD ELR Signed PROTHROMBIN TIME W/INR Collected: 07/08/2017 Status: F Source: [place] 2:39 PM [facility] REPOSITORY TYPE CODE TESTS RESULT OUT OF RANGE REFERENCE UNITS LAB L300.4150 11.7-14.9 SECONDS High PROTIME 25.6 LAB L300.4200 Normal INR 2.3 Performed By: #### L300.3900 #### [facility] Laboratory [address] [place], [address] INITAL EVALUATION (1) Observed: 06/22/2017 Status: F Source: [place] - PT 12:12 PM [facility] REPOSITORY [facility] Physical Therapy [facility] [address] [place] [address]. [address] [place], [place] [address] Fax REHABILITATION SERVICES INITIAL EVALUATION MR#: [id number] Acct: [id number] Name: SVEN ALEJO Rep #: [id number] : 1950 67 From: Ivett García DPT Referring Dr.: Everette Adkins MD Status: REG RCR Insurance: MEDICARE PART A B [facility] Patient's Visit Information SVEN ALEJO is a 67 year old F [...] [facility] she [facility] [...] to be FAXED BACK to us at [phone] for Medicare purposes. Please let me know if there are questions or concerns regarding this plan of care. Physician Signature: Date: <Electronically signed by Ivett García DPT> 06/22/17 1212 CC: Jad Pepe; Everette Adkins MD ELR Signed For Medicare only, by signing this I certify the plan of care. Physicians Signature Date Observed: 06/16/2017 Status: F Source: [place] CULTURE, URINE 11:33 AM [facility] REPOSITORY SEND URINE TO DR. LAN ONLY Urine Culture Culture exhibits no growth. Performed By: #### M100.0650 #### [facility] Laboratory [address] [place], [address] PROTHROMBIN TIME W/INR Collected: 06/16/2017 Status: F Source: [place] 11:28 AM [facility] REPOSITORY Order Comment: [id number] FAX TYPE CODE TESTS RESULT OUT OF RANGE REFERENCE UNITS LAB L300.4150 11.7-14.9 SECONDS High PROTIME 29.2 LAB L300.4200 Normal INR 2.7 Performed By: #### L300.3900 #### [facility] Laboratory [address] [place], [place], [address] Observed: 05/20/2017 Status: F Source: [place] CULTURE, URINE 2:46 PM [facility] REPOSITORY Urine Culture ORGANISM 1: Presumptive E. coli Wales Count >100,000 Presumptive E. coli: REACTION Amoxacillin/Clavulanic [...] <=20 S (NF) indicates non-formulary drug at [facility]. Approval by Infectious Disease Specialist required before non-formulary drugs may be ordered and/or dispensed. Performed By: #### M100.0650 #### [facility] Laboratory [address] [place], [address] PROTHROMBIN TIME W/INR Collected: 04/28/2017 Status: F Source: [place] 3:12 PM [facility] REPOSITORY TYPE CODE TESTS RESULT OUT OF REFERENCE UNITS RANGE LAB L300.4150 11.7-14.9 SECONDS High PROTIME 34.4 LAB L300.4200 High alert INR 3.6 Result Comment: CRITICAL VALUE VERIFIED. CALLED TO DR. PERES 04/28/17 1751 Enid Larsen. RESULTS READ BACK BY SAME . Performed By: #### L300.3900 #### [facility] Laboratory [address] [place], [place], [address] PROTHROMBIN TIME W/INR Collected: 04/05/2017 Status: F Source: [place] 12:44 PM [facility] REPOSITORY TYPE CODE TESTS RESULT OUT OF RANGE REFERENCE UNITS LAB L300.4150 11.7-14.9 SECONDS High PROTIME 23.9 LAB L300.4200 Normal INR 2.2 Performed By: #### L300.3900 #### [facility] Laboratory [address] [place], [place], [address] ALLERGIES ALLERGIES DATE TYPE / CODE NAME / CODE REACTION SEVERITY SOURCE Drug [id number]-[id number]-VLQ [place] [address] Class/777417722(SN REDUCTASE Three OMED CT) INHIBITORS Repository Drug fluoxetine Other Unknown [place] 8 Allergy/247152274( HCl/G645670879(RXN Community SNOMED CT) OR) Hospital Repository Drug isosorbide/W634769 Other Unknown [place] 8 Allergy/492245940( 687(RXNORM) Community SNOMED CT) Hospital Repository Drug metformin/U4058443 Nausea/Vom/Yari Unknown [place] 8 Allergy/504363524( 34(RXNORM) rrhea Community SNOMED CT) Hospital Repository Drug celecoxib/W6806419 Nausea/Vom/Yari Unknown [place] 8 Allergy/367102570( 31(RXNORM) rrhea [facility] SNOMED CT) Hospital Repository DRUG FLUOXETINE HCL Other [place] [address] INGREDI/365630026( Three SNOM[address]) Repository DRUG ISOSORBIDE Other [place] [address] INGREDI/633703024( Three SN[address]) Repository DRUG FLUOXETINE [facility] 7 INGREDI/700349649( Three SNOM[address] CT) Repository DRUG METFORMIN Diarrhea Med [facility] 5 INGREDI/154894937( Three SN[address]) Repository Drug NSAIDS Other [place] [address] Class/238464103(SN (NON-STEROIDAL Three OMED CT) ANTI-INFLAMMATORY Repository DRUG) Drug/641673153(SNO ciprofloxacin IRREGULAR [facility] MED CT) HEARTBEAT [facility] Repository Drug/303415299(SNO No Known Allergies [facility] MED CT) [facility] Repository Drug/307869949(SNO sulfa drugs Nausea [facility] MED CT) [facility] Repository Miscellaneous Cardizem Heart Palp. [facility] Allergy/478352504( Regional SNOMED CT) Health System Repository Miscellaneous Vasotec cough [facility] Allergy/265491188( Regional SNOMED CT) Health System Repository Miscellaneous Lipitor [facility] Allergy/530113665( Regional SNOMED CT) Health System Repository Drug/684496594(SNO NSAIDs cough [facility] MED CT) [facility] Repository ENCOUNTERS ENCOUNTERS ADMIT/DISCHARGE ACCOUNT NUMBER ADMITTING ENCOUNTER LOCATION SOURCE CLASS 02/21/2018 [id number] Ambulatory [facility] ding:US Repository 02/20/2018 [id number] Ambulatory [facility] ding:BFAB Repository 01/12/2018 [id number] Ambulatory Building:[facility] Three BPKWY Repository 01/12/2018 [id number] [facility] Three [facility] Repository 01/05/[id number] Ambulatory [facility] Repository 01/05/2018/01/10/20 [id number] VIC PERES Ambulatory Building:[place] [address] [facility] Repository 12/28/2017/12/29/19 [id number] [facility] [facility] Three [place]PK[facility] Repository 12/26/2017/12/27/19 [id number] Ambulatory Building:[place] [address] X Three Repository 12/26/[id number] Ambulatory [facility] Repository 12/12/2017 [id number] Ambulatory [facility] Hospital ding:BFHLAB Repository 10/18/2017 [id number] Ambulatory [facility] Hospital ding:BFHLAB Repository 08/25/2017 [id number] Ambulatory Building:[facility] Three D Repository 08/23/2017 [id number] Ambulatory [facility] Hospital ding:BFHLAB Repository 07/21/2017/07/22/19 [id number] Ambulatory [address] ding:PT Repository 07/08/2017 [id number] Ambulatory [facility] ding:BFHLAB Repository 06/24/2017 [id number] [facility] 06/17/2017 [id number] Ambulatory Building:[facility] Three D Repository 06/16/2017 [id number] Ambulatory [facility] Hospital ding:BFHLAB Repository 06/06/2017 [id number] Ambulatory [facility] Hospital ding:LAB Repository 05/20/2017 [id number] Ambulatory [facility] ding:BFHLAB Repository 05/13/2017/05/14/19 [id number] Vic Peres Ambulatory [address] ding:[facility] IO Repository 05/13/2017/05/14/19 [id number] VIC PERES Ambulatory Building:[place] [address] [facility] Repository 05/09/2017 [id number] Ambulatory Building:[facility] Three Repository 05/06/2017/05/07/19 [id number] Ambulatory [address] ding:LAB Repository 04/06/2017/04/06/19 [id number] Ambulatory Building:[address] Repository 04/05/2017/04/05/19 [id number] Ambulatory [place] [facility] ding:LAB Repository PAYERS PAYERS ENCOUNTER GUARANTOR PAYER SUBSCRIBER SOURCE 02/21/2018 SVEN Johnston Primary SVEN Reis [id number] [address] Insurance:MEDICARE CRAMERDOB: [place], [place] PART A [facility] [id number] Hospital [address]Xxu: (330) Number: Repository [phone] () [id number] Date:2018-02-20 02/21/2018 Secondary SVEN Hortonoster Insurance:[employer]UAL OF CRAMERDOB: [facility] Number: [id number] Hospital [id number] Repository Date:3101-28-74XYEBQJ OF [place], [place] [address]FJ: 02/21/2018 Tertiary NOT GIVENUNK [place] Insurance:SELF PAY [facility] Number: Effective Repository Date:2018-02-20 02/20/2018 Sven Johnston Primary Sven Reis [id number] [place] Insurance:MEDICARE CramerDOB: [place], [place] PART A [facility] [id number] Hospital [address]Czy: (330) Number: Repository [phone] () [id number] Date:2018-02-20 02/20/2018 Secondary Sven Johnston [place] Insurance:MUTUAL OF CramerDOB: [facility] Number: [id number] Hospital [id number] Repository Date:9099-62-51YFIMES [place] [address]WX: 02/20/2018 Tertiary NOT GIVENUNK [place] Insurance:SELF PAY [facility] Number: Effective Repository Date:2018-02-20 01/12/2018 SVEN Johnston Primary [facility] CRAMERDOB: Insurance:MEDICAREPol CRAMERDOB: Three Repository icy Number: [id number] [address] [id number] [address] [place], [place] Date:3410-65-68JTS [place], [place] [address]Owt: (999) J15 PART A CLAIMSPO [id number]: (HP) [address], [phone] (HP) [place] [address]UV: 01/12/2018 Secondary [facility] Health Insurance:COMMERCIALP CRAMERDOB: Three Repository olicy Number: [id number] [address] Date:7774-80-57UXNXWC [place] OF [facility], [address]Djz: (999) [place] [address]RM: [phone] (HP) 01/12/2018 [facility] Insurance:MEDICAREPol [facility] Three Repository icy Number: [id number] [address] [id number] [address] [place], [place] Date:8649-92-18KGHBARAGA, [place] [address]Ugp: (999) J15 PART A CLAIMSPO [id number]: (HP) [address]JM[address], [phone] (HP) [place] [address]ZM: 01/12/2018 Secondary [facility] Health Insurance:COMMERCIALP CRAMERDOB: Three Repository olicy Number: [id number] [address] Date:7146-37-91DRVKXE [place] OF [facility], [address]Irj: (999) [place] [address]GR: [phone] (HP) 01/05/2018 Primary [facility] Insurance:MedicarePol CRAMERDOB: [place] and icy Number: [id number] [facility] [id number] OJEDA Repository Date:4217-71-85Xhhr [place], [place] Name:Donna Overton [id number] 01/05/2018 Secondary [facility] Insurance:MedicarePol CRAMERDOB: [place] and icy Number: [id number] [facility] [id number] OJEDA Repository Date:2671-36-73YkqzBritt, [place] Name:Donna Kim [id number] 01/05/2018 Tertiary [facility] Insurance:[place] Of CRAMERDOB: Ne[place] pitts [facility] Number: [id number] [facility] [id number] OJEDA Repository Date:Plan [place] Name:[facility] [address] [facility] [place], [place] [address]HV: 01/05/2018 SVEN Johnston Primary [facility]EN [facility] Insurance:MEDICAREPol CRAMERDOB: Three Repository icy Number: [id number] [address] [id number] [address] [place], [place] Date:9813-03-82HCKBARAGA, [place] [address]Lom: (999) S15 PART A CLAIMSPO [id number]: (HP) [address], [phone] (HP) [place] [address]CG: 01/05/2018 Secondary [facility] Insurance:COMMERCIALP CRAMERDOB: Three Repository olicy Number: [id number] OJED[place] Date:2014-20-77OMISGOMONTEREY, [place] OF [facility], [address]Cxe: (999) [place] [address]BO: [phone] (HP) 12/28/2017 SVEN Johnston Primary SVEN [facility]: Insurance:MEDICAREPol [facility] Three Repository icy Number: [id number] [address] [id number] [address] [place], [place] Date:8577-60-80UGZBARAGA, [place] [address]Zbc: (999) J15 PART A CLAIMSPO [id number]: (HP) [address]QKSFIR[address], [phone] (HP) [place] [address]IH: 12/28/2017 [facility] Insurance:COMMERCIALP CRAMERDOB: Three Repository olicy Number: [id number] O[place] Date:8892-47-40LKQWZZ [facility], [address]Hmx: (999) [place] [address]OK: [phone] (HP) 12/26/2017 [facility]: Insurance:MEDICAREPol CRAMERDOB: Three Repository icy Number: [id number] [address] [id number] [address] [place], [place] Date:7509-40-69TQLBARAGA, [place] [address]Biu: (999) J15 PART A CLAIMSPO [id number]: (HP) [address]NM[address], [phone] (HP) [place] [address]KJ: 12/26/2017 [facility] Insurance:COMMERCIALP CRAMERDOB: Three Repository olicy Number: [id number] [place] Date:2698-14-57TKRASR [facility], [address]Lfd: (999) [place] [address]SH: [phone] (HP) 12/26/2017 Primary [facility] Insurance:MedicarePol CRAMERDOB: Neena pitts icy Number: [id number] [facility] [id number] OJEDA Repository Date:2066-85-35Cxia [place], [place] Name:Donna Overton [id number] 12/26/2017 Secondary [facility] Insurance:MedicarePol CRAMERDOB: [place] Number: [id number] [facility] [id number] OJ[place]A Repository Date:9927-20-69Qqnc [place], [place] Name:Donna Kim [id number] 12/26/2017 [facility] Insurance:[place] Of CRAMERDOB: [facility] [facility] Hospital[facility] Number: [id number] [facility] [id number] OJEDA Repository Date:[facility] [place] Name:[employer] [place] [id number] [place], [place] [address]XX: 12/12/2017 [place] Johnston Primary Sven Reis [id number] Ojeda Insurance:MEDICARE CramerDOB: [place] PART A [facility] [id number] Hospital [address]Msp: (330) Number: Repository [phone] () [id number] Date:2017-12-12 12/12/2017 Secondary Orlandoholden Johnston Sm[place] Insurance:MUTUAL OF CramerDOB: [facility] Number: [id number] Hospital [id number] Repository Date:7314-80-07QGKFZG OF [place], [place] [address]GF: 12/12/2017 Tertiary NOT GIVENUNK [place] Insurance:SELF PAY [facility] Number: Effective Repository Date:2017-12-12 10/18/2017 Sven Johnston Primary Sven Reis [id number] Ojeda Insurance:MEDICARE CramerDOB: [place] PART A [facility] [id number] Hospital [address]Tje: (330) Number: Repository [phone] () [id number] Date:2017-10-18 10/18/2017 Secondary Sven Johnston [place] Insurance:MUTUAL OF CramerDOB: [facility] Number: [id number] Hospital [id number] Repository Date:1577-21-83YROOOM OF [place], [place] [address]JE: 10/18/2017 Tertiary NOT GIVENUNK [place] Insurance:SELF PAY [facility]: Effective Repository Date:2017-10-18 08/25/2017 SVEN Johnston Primary SVEN Johnston [facility] CRAMERDOB: Insurance:MEDICAREPol CRAMERDOB: Three Repository icy Number: [id number] OJEDA [id number] [place] Date:0917-13-32CIP [place], [place] [address]Mlq: [phone] PART A CLAIMSPO [id number]: (HP) [address]CLHWXPXOJ, [phone] (HP) [place] [address]HZ: 08/25/2017 Secondary SVEN Johnston [facility] Insurance:COMMERCIALP CRAMERDOB: Three Repository olicy Number: [id number] OJEDA Date:8572-95-95BEAECK [facility], [address]Tfl: [phone] SO [id number]: [phone] () 08/23/2017 Sven Johnston Primary Sven Reis [id number] Oj[place] Insurance:MEDICARE CramerDOB: [facility] [place] BPolicy [id number] Hospital [address]Dua: (330) Number: Repository [phone] () [id number] Date:2017-08-23 08/23/2017 Secondary Sven Reis Insurance:MUTUAL OF CramerDOB: [facility] Number: [id number] Hospital [id number] Repository Date:9586-09-63ZTJSDFJEFFERSON [facility] [place] [address]EA: 08/23/2017 Tertiary NOT GIVENUNK [place] Insurance:SELF PAY [facility] Number: Effective Repository Date:2017-08-23 07/21/2017 Sven Johnston Primary Sven Reis [id number] Oj[place] Insurance:MEDICARE CramerD[facility] BPolic [id number] Hospital [address]Hsl: (330) Number: Repository [phone] () [id number] Date:2013-10-05 07/21/2017 Secondary Sven Johnston [place] Insurance:MUTUAL OF CramerDOB: [facility] Number: [id number] Hospital [id number] Repository Date:4561-01-80QDMYNKMALDEN, [place] [address]ZR: 07/21/2017 Tertiary NOT GIVENUNK [place] Insurance:SELF PAY [facility] Number: Effective Repository Date:2017-06-16 07/08/2017 Sven Johnston Primary Sven Hortonoster [id number] Ojeda Insurance:MEDICARE CramerDOB: [facility] [place] PART A [facility] [id number] Hospital [address]Yfh: (330) Number: Repository [phone] () [id number] Date:2017-07-08 07/08/2017 Secondary Sven Johnston [place] Insurance:MUTUAL OF CramerDOB: [facility] Number: [id number] Hospital [id number] Repository Date:9605-72-80QQJNEGLOS ANGELES, [place] [address]JN: 07/08/2017 Tertiary NOT GIVENUNK [place] Insurance:SELF PAY [facility] Number: Effective Repository Date:2017-07-08 06/24/2017 SVEN Johnston [facility] Insurance:MEDICAREPol [facility] Repository icy Number: [id number] OJEDA [id number] OJEDA [place] Date:2572-89-37LND [place] [address]Xsf: [phone] [phone] PART A CLAIMSPO [id number]: () [address] [address]ZIQETQYIM, [phone] () [place] [address]YB: 06/24/2017 Secondary SVEN Johnston [facility] Insurance:COMMERCIALP CRAMERDOB: Three Repository olicy Number: [id number] OJEDA Date:2263-99-80MLGQME KELSEYBRANDY [facility], [address]Who: 330) [place] [address]UH: [phone] (HP) 06/17/2017 SVEN Johnston Primary SVEN Johnston [facility] CRAMERDOB: Insurance:MEDICAREPol CRAMERDOB: Three Repository icy Number: [id number] OJEDA [id number] OJEDA [place] Date:4313-33-16IXH [place], [place] [address]Tvt: [phone] PART A CLAIMSPO [phone]: (HP) [address] [address]IWNFTJOOZ, [phone] (HP) [place] [address]NS: 06/17/2017 Secondary SVEN Johnston [facility] Insurance:COMMERCIALP CRAMERDOB: Three Repository olicy Number: [id number] OJEDA Date:4902-67-80IOZTJS [facility]WAKEM[facility], [address]Pix: 330) [place] [address]ZS: [phone] (HP) 06/16/2017 Orlandoholden Johnston Primary Sven Reis [place] [address] [place] Insurance:MEDICARE CramerDOB: [facility] [place] PART A BPolicy [id number] Hospital [address]Cma: (330) Number: Repository [phone] (HP) [id number] Date:2017-06-16 06/16/2017 Secondary Sven Reis Insurance:MUTUAL OF CramerDOB: [facility] Number: [id number] Hospital [id number] Repository Date:8167-14-63RDTKSNJEFFERSON COUNTY HOSP[facility] – [place] [address]PG: 06/16/2017 Tertiary NOT GIVENUNK [place] Insurance:SELF PAY [facility] Number: Effective Repository Date:2017-06-16 06/06/2017 Sven Johnston Primary Sven [id number] Ojeda Insurance:MEDICARE CramerDOB: [facility] [place] olic [id number] Hospital [address]Pru: (330) Number: Repository [phone] () [id number] Date:2017-04-07 06/06/2017 Secondary Sven Johnston [place] Insurance:MUTUAL OF CramerDOB: [facility] Number: [id number] Hospital [id number] Repository Date:1005-20-40GGLLAPMALDEN, [place] [address]FI: 06/06/2017 Tertiary NOT GIVENUNK [place] Insurance:SELF PAY [facility] Number: Effective Repository Date:2017-06-06 05/20/2017 Sven Johnston Primary Sven [id number] Oj[place] Insurance:MEDICARE CramerDOB: [facility] PART A [facility] [id number] Hospital 130[address]Drd: (330) Number: Repository [phone] () [id number] Date:2017-05-20 05/20/2017 Secondary Sven Johnston [place] Insurance:MUTUAL OF CramerDOB: [facility] Number: [id number] Hospital [id number] Repository Date:6989-07-04BCDRKPLOS ANGELES, [place] [address]ST: 05/20/2017 Tertiary NOT GIVENUNK [place] Insurance:SELF PAY [facility] Number: Effective Repository Date:2017-05-20 05/13/2017 SVEN Johnston Primary SVEN GATICAB: Insurance:MedicarePol [facility]: [facility] [id number] icy Number: Effective [id number] System OJEDA Date:2017-04-06 - OJEDA Repository [place] 1640-92-35Jpgx [place] [id number]: Name:CD:[id number] [id number]: [id number], [place] (HP) [phone]: [phone] () [phone] (WP) 05/13/2017 Secondary SVEN Johnston Caodaism Insurance:MUTUAL OF [facility]: [facility] Number: [id number] System Effective OJEDA Repository Date:2017-04-06 [place] 6022-55-25Qjxo [id number]: Name:CD:[id number] OF [place], [place] ()Tel: [phone]: [phone]) [phone] 05/13/2017 SVEN Vickie Primary SVEN [facility]MEDICAREPol [facility] Three Repository icy Number: [id number] OJEDA [id number] OJEDA [place], [place] Date:5081-73-07EWABARAGA, [place] [address]Niu: [phone] PART A CLAIMSPO [id number]: () [address] [address]SHQJBPSKC, [phone] () [place] [address]CU: 05/13/2017 Secondary SVEN Johnston [facility] Insurance:COMMERCIALP CRAMERDOB: Three Repository olicy Number: [id number] OJEDA Date:4746-60-74QTUUKU [place] OF [facility], [address]Vvh: 330) [place] [address]ZK: [phone] () 05/09/2017 SVEN Johnston Primary ORLANDOHOLDEN Johnston [facility] Insurance:MEDICAREPol [facility]: Three Repository icy Number: [id number] OJEDA [id number] OJEDA [facility] Date:3642-03-90ASVNEL[place], [place] [address]Rnh: (330) J15 PART A CLAIMSPO [id number]: (HP) [address]ASLNYGHTQ, [phone] (HP) [place] [address]TU: 05/09/2017 Secondary SVEN Johnston [facility] Insurance:COMMERCIALP CRAMERDOB: Three Repository olicy Number: [id number] OJEDA Date:7027-22-74NWVOWL [facility], [address]Vma: 330) [place] [address]DK: [phone] () 05/06/2017 Sven Johnston Primary Sven [place] [address] [place] Insurance:MEDICARE CramerDOB: [place] PART A BPolicy [id number] Hospital [address]Qml: (330) Number: Repository [phone] () [id number] Date:2017-04-07 05/06/2017 Secondary Sven Reis Insurance:MUTUAL OF CramerDOB: [facility] Number: [id number] Hospital [id number] Repository Date:1219-33-43VAGPQK [facility] [place] [address]HD: 05/06/2017 Tertiary NOT GIVENUNK [place] Insurance:SELF PAY [facility] Number: Effective Repository Date:2017-04-07 04/06/2017 SVEN Johnston [facility] SVEN [facility]: Insurance:MEDICAREPol CRAMERDOB: Three Repository icy Number: [id number] OJEDA [id number] [place], [place] Date:6945-95-46ZVJBARAGA, [place] [address]Bnd: (330) J15 PART A CLAIMSPO [id number]: () [address] [address]DSFKRBPSI, [phone] () [place] [address]ZA: 04/06/2017 Secondary SVEN Johnston [facility] Insurance:COMMERCIALP CRAMERDOB: Three Repository [facility] Number: [id number] OJEDA Date:5103-82-63DYCUGR [facility] [address]Cvj: (647) [place] [address]NV: [phone] () 04/05/2017 Sven Johnston Primary Sven Hortonoster [id number] Ojeda Insurance:MEDICARE CramerDOB: [facility] [id number] Hospital [address]Nvs: (330) Number: Repository [phone] () [id number] Date:2017-04-05 04/05/2017 Secondary Sven Reis Insurance:MUTUAL OF [facility]: [facility] Number: [id number] Hospital [id number] Repository Date:3632-93-85XUGLMOJEFFERSON COUNTY HOSPITAL – [place] [address]EF: 04/05/2017 Tertiary NOT GIVENUNK [place] Insurance:SELF PAY [facility] Number: Effective Repository Date:2017-04-05
== END ==
PROVIDERS: Family Provider Family Medicine; PCP Family Medicine; Referring Provider Family Medicine; Visit Provider Family Medicine
DX: E04.1 Nontoxic single thyroid nodule (principal)
CPT/HCPCS: 76536

== ENCOUNTER → 2018-04-10 13:50 | Outpatient (CLI) | payer MEDICARE, OTHER, SELFPAY ==
[2018-04-07 16:14] VITALS: BMI 34.3
[2018-04-10 14:04] LABS: Mucous, Urine 0 SEEN /hpf (<or=2+); Squamous Epithelial Cells - UA 0 SEEN /hpf (5-10)
[2018-04-10 14:40] LABS: Color, Urine Yellow (Yellow); Glucose, Dipstick Normal (Normal); Ketone-Dipstick 5 mg/dl (Negative); Leukocyte Esterase-Dipstick 500 /ul (Negative); Nitrite-Dipstick Positive (Negative); Occult Blood-Urine 250 /ul (Negative); Protein-Dipstick 100 mg/dl (Negative); Specific Gravity, Urine 1.025 (1.002-1.030); Urine Bilirubin Dipstick Negative (Negative); Urine Clarity Turbid (Clear); Urine Urobilinogen Normal (Normal)
[2018-04-10 14:54] LABS: Bacteria 4+ /hpf (None Seen); White Blood Cells >100 SEEN /hpf (0-5)
[2018-04-10 14:55] LABS: Red Blood Cells-Urine > 100 SEEN /hpf (0-5)
== END ==
PROVIDERS: Family Provider Family Medicine; PCP Family Medicine; Referring Provider Physician Assistant Surgical; Visit Provider Physician Assistant Surgical
DX: N30.00 Acute cystitis without hematuria (principal); R30.0 Dysuria
CPT/HCPCS: 81001; 87086; 87088; 87186

== ENCOUNTER → 2018-05-15 17:09 | Outpatient (CLI) | payer MEDICARE, OTHER, SELFPAY ==
[2018-04-07 16:14] VITALS: BMI 34.3
[2018-05-15 17:36] LABS: International Normalized Ratio 1.9; Prothrombin Time (Protime)PT. 21.6 SECONDS (11.7-14.9)
== END ==
PROVIDERS: Family Provider Family Medicine; PCP Family Medicine
DX: I48.0 Paroxysmal atrial fibrillation (principal); Z79.01 Long term (current) use of 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
CPT/HCPCS: 36415; 85610

== ENCOUNTER → 2018-06-26 15:38 | Outpatient (CLI) | payer MEDICARE, OTHER, SELFPAY ==
[2018-04-07 16:14] VITALS: BMI 34.3
[2018-06-26 16:40] LABS: International Normalized Ratio 2.6; Prothrombin Time (Protime)PT. 27.5 SECONDS (11.7-14.9)
== END ==
PROVIDERS: Family Provider Family Medicine; PCP Family Medicine
DX: Z79.01 Long term (current) use of 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 (principal); I48.0 Paroxysmal atrial fibrillation
CPT/HCPCS: 36415; 85610

== ENCOUNTER → 2018-06-29 14:02 | Outpatient (CLI) | payer MEDICARE, OTHER, SELFPAY ==
[2018-06-29 12:46] VITALS: BMI 34.3
[2018-06-29 14:15] LABS: Mucous, Urine 0 SEEN /hpf (<or=2+)
[2018-06-29 14:21] LABS: Color, Urine Yellow (Yellow); Glucose, Dipstick 50 mg/dl (Normal); Ketone-Dipstick Negative (Negative); Leukocyte Esterase-Dipstick 500 /ul (Negative); Nitrite-Dipstick Negative (Negative); Occult Blood-Urine 250 /ul (Negative); Protein-Dipstick 100 mg/dl (Negative); Specific Gravity, Urine 1.015 (1.002-1.030); Urine Bilirubin Dipstick Negative (Negative); Urine Clarity Cloudy (Clear); Urine Urobilinogen Normal (Normal)
[2018-06-29 14:27] LABS: Bacteria 2+ /hpf (None Seen); Red Blood Cells-Urine 25-50 SEEN /hpf (0-5); Squamous Epithelial Cells - UA 0-5 SEEN /hpf (5-10); White Blood Cells 50-100 SEEN /hpf (0-5)
== END ==
PROVIDERS: Family Provider Family Medicine; PCP Family Medicine; Referring Provider Physician Assistant; Visit Provider Physician Assistant
DX: R30.0 Dysuria (principal); N39.0 Urinary tract infection, site not specified
CPT/HCPCS: 81001; 87086; 87088; 87186

== ENCOUNTER 2018-07-23 13:17 | Emergency (ER) | payer MEDICARE, OTHER, SELFPAY ==
[2018-06-29 12:46] VITALS: BMI 34.3
[2018-07-23 13:19] VITALS: BP 152/74; PULSE 83; RESP 16; TEMP 36.1; O2SAT 94; BMI 35.8
--- NOTE | 2018-07-23 14:03 | RAD_ITS ---
STUDY: X-RAY - RIGHT FOOT CLINICAL: Female, 68 years old. Medial foot pain with no injury. TECHNIQUE: 3 view(s) of the foot. COMPARISON: None. FINDINGS: There is generalized osteopenia. There is an inferior calcaneal spur. Normal visualized subtalar, talonavicular, calcaneocuboid, tarsal and tarsometatarsal articulations. Normal metatarsi. 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 Normal second through fifth metatarsophalangeal joints. Normal interphalangeal joints and phalanges of the lesser toes. The soft tissue structures are unremarkable. RAD/Foot min 3 Views IMPRESSION: Osteopenia with calcaneal spur. Severe first MTP joint arthrosis. Electronically Signed: Sav Nation MD at 14:30 EDT , Service support ,
--- NOTE | 2018-07-23 14:32 | ED.VISSUMM ---
- ER Visit Summary Date of Service: 07/23/18 Chief Complaint: Right foot pain History of Present Illness: The patient is a 68 F who presents with a 2 to 3-week history of right foot pain. Pain is worse along the medial aspect of the foot. She states it is worse after standing on her feet all day and improves with elevation. She tried new shoes without improvement. She is currently on Coumadin secondary to a history of A. fib. She has had multiple surgeries in her right leg as well. Physical Examination: Vital signs grossly unremarkable. Patient sitting upright in bed no acute distress. Right lower extremity examination was tenderness along the first metatarsal. No significant erythema noted. Strong distal pulses and normal cap refill noted. Minimal tenderness along the lateral distal ankle. Test Results: Right foot x-rays reveal chronic arthritic changes per my review. No evidence of fracture. Emergency Department Course and Treatment: Sotero wrap is applied to the foot. Patient will continue to use Tylenol. She will be referred to podiatry for follow-up. Treatment Plan: [] Disposition: Discharge Impression: Right foot sprain This note was generated with [employer] dictation software. It may contain incorrect words, spelling, and punctuation that were not noted in review of the chart prior to signing ED Disposition - Plan for ED Patient: Disposition: Home or Assisted Living Instructions: ED Sprain Foot Referrals: Jad Pepe MD [Primary Care Provider] - Stephanie Doran DPM [STAFF PHYSICIAN] - As Needed
[2018-07-23 14:42] VITALS: BP 150/70; PULSE 78; RESP 16; O2SAT 98
== END 2018-07-23 14:43 | disposition home or self-care (01) ==
PROVIDERS: Emergency Provider Emergency Medicine; Family Provider Family Medicine; PCP Family Medicine
DX: S93.601A Unspecified sprain of right foot, initial encounter (principal); M85.80 Other specified disorders of bone density and structure, unspecified site; M77.31 Calcaneal spur, right foot; M19.071 Primary osteoarthritis, right ankle and foot; I48.91 Unspecified atrial fibrillation; E11.9 Type 2 diabetes mellitus without complications; I10 Essential (primary) hypertension; E78.00 Pure hypercholesterolemia, unspecified; Z86.73 Personal history of transient ischemic attack (TIA), and cerebral infarction without residual deficits; Z79.01 Long term (current) use of 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; X58.XXXA Exposure to other specified factors, initial encounter; Y93.9 Activity, unspecified; Y92.89 Other specified places as the place of occurrence of the external cause; Y99.9 Unspecified external cause status
CPT/HCPCS: 73630; 99282

== ENCOUNTER → 2018-08-25 10:38 | Outpatient (CLI) | payer MEDICARE, OTHER, SELFPAY | PROVIDERS: Family Provider Family Medicine; PCP Family Medicine; Visit Provider Family Medicine | DX: N39.0 Urinary tract infection, site not specified (principal) | CPT/HCPCS: 87086; 87088; 87186 ==

== ENCOUNTER 2018-10-06 10:38 | Outpatient (RCR) | payer MEDICARE, OTHER, SELFPAY ==
[2018-10-06 11:06] LABS: International Normalized Ratio 2.8; Prothrombin Time (Protime)PT. 29.6 SECONDS (11.7-14.9)
== END 2018-10-06 12:00 | disposition home or self-care (01) ==
LOC: LAB 10:38
PROVIDERS: Family Provider Family Medicine; PCP Family Medicine
DX: I48.0 Paroxysmal atrial fibrillation (principal); Z79.01 Long term (current) use of 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
CPT/HCPCS: 36415; 85610

== ENCOUNTER → 2019-01-09 12:13 | Outpatient (CLI) | payer MEDICARE, OTHER, SELFPAY | PROVIDERS: Family Provider Family Medicine; PCP Family Medicine | DX: Z00.00 Encounter for general adult medical examination without abnormal findings (principal) ==

== ENCOUNTER → 2019-01-23 10:37 | Outpatient (CLI) | payer MEDICARE, OTHER, SELFPAY ==
[2019-01-23 11:16] LABS: International Normalized Ratio 2.6; Prothrombin Time (Protime)PT. 27.9 SECONDS (11.7-14.9)
== END ==
LOC: LAB.FUTURE 10:44 → LAB 10:53
PROVIDERS: Family Provider Family Medicine; PCP Family Medicine
DX: I48.91 Unspecified atrial fibrillation (principal)
CPT/HCPCS: 36415; 85610; 97035; 97110

== ENCOUNTER 2019-02-16 09:30 | Outpatient (RCR) | payer MEDICARE, OTHER, SELFPAY ==
--- NOTE | 2019-01-23 10:00 | HP.PTEVAL_ITS ---
Patient's Visit Information SVEN ALEJO is a 68 year old F referred to Physical Therapy by Everette Adkins MD with a diagnosis of R greater trochanteric bursitis. Date of Evaluation: 01/17/19 Physical Therapist: Romario Castro DPT - Visit Plan Frequency: 2-3x /Week Duration: 4-6 Weeks Plan: Start with US to R greater trochanter. Add in TFL and pirformis stretching. Once symptoms have lessened add in R hip strenghtening to stabilize her gait in turn reducing the stress she applies to her R hip. - Subjective Findings: Pt. is here today for her initial evaluation with diagnosis of R greater trochanteric bursitis. Pt. reports having in the past which was fixed by an injection. She reports having another injection, but did not help as much this time. She also reports they do not want to give her many more due to her diabetes. Pt. reports increased pain with walking, standing on her RLE. Pt. does have increased lateral hip sway with her walking due to previous injury. Pt. reports no N/T, no radiating pain and no low back pain. Pt. has no back pain as well. She reports increased pain with getting up/down out of a chair. Pt. has not tried any exercises for her pain at this point in time. Pt. has done ice with out good relief. Her symptoms do wake her up at night at times. Pt. is hopeful to reduce her symptoms in order to get back to all recreational walking and house work without limitations. - Pain R greater trochanter Pain Intensity (Out of 10): 4 Pain Intensity Range: 1, 6 - Objective POSTURE: Pt. has increased R laeral shift, with trunk correction. Pt. has normal iliac crest heights, equal. Slight flexed posture and anterior pelvic tilt. PALPATION: Pt. has increased tenderness along her greater trochanter on her R side, and glute med/piriformis region. R side only. No low back pain with palpation. NEURO: Normal bilaterally. Normal sensation. ROM: Pt. has normal lumbar ROM without increase in symptoms. R hip- tight HS, tigth TFL, tight hip flexor and tight quad muscles. MMT: LLE- ankle/knee 5/5 throughout; hip 4+/5 throughout. RLE- ankle 5/5 throughout; knee 5/5 throughout; hip- flexion 4/5, adb 4-/5, ext 4/5. Core strength- poor. GAIT: PT. ambulates without AD, but has large trunk sway during R stance phase with trunk sway to R. (opposite trandelemburg). Pt. has increased pain with all gait. STAIRS: Step to pattern with laoding LLE only. - Special Tests R Hip Scour: Negative R Hip FADDIR - Labrum: Positive R Hip Frank - IT Band: Positive - Goals Goal 1:: Pt. to be I with HEP. Goal Time Frame: 4-6 Weeks Goal 2:: Pt. to walk with improved pattern and 0-2/10 pain in R hip. Goal Time Frame: 4-6 Weeks Goal 3:: Pt. to have increased R hip muscle length including HS, piriformis, hip flexor and quads. Goal Time Frame: 4-6 Weeks Goal 4:: Pt. to have increase R hip strength by 1/2 grade throughout. Goal Time Frame: 4-6 Weeks Goal 5:: Pt. to sleep throughout the night without increase in symptoms. - Rehabilitation Potential Physical Therapy Diagnosis: Pt. has signs and symptoms consistent with R greater trochanteric bursitis. Pt. has tight musculatur throughout R hip and marked glute med/max weakness. Pt. also has marked lateral hip sway with gait, coming down on her R side. Pt. would benefit from PT to increase glute strength, R hip stretching and to reduce pain. Rehabilitation Potential: Good - Anticipated Interventions Patient/Client Instruction: Educate patient on: Condition, Plan of Care, Risk Factors, Benefits of Fitness Program For the Purpose of:: To foster healthy habits, To improve decision making, To facilitate caregiver knowledge, To improve self management, To prevent re- injury, To improve ability to perform tasks related to life management, To improve tolerance to ADL's Therapeutic Exercise to Include: Strength training, Power training, Postural training, Flexibilty training, Gait and locomotor training, Passive ROM, Active ROM, Dynamic Lumbar Stabilization For the Purpose of:: To decrease pain, To decrease swelling/inflammation, To increase ROM, To improve nutrient delivery to tissue, To increase oxygenation perfusion, To improve ability to perform ADL's, To improve gait and locomotor functions, To improve health of tissue, To decrease soft tissue restriction Manual Therapy Techniques to Include: Functional dry needling, Soft tissue mobilization For the Purpose of:: To decrease pain, To decrease swelling/inflammation, To increase ROM TENS: Yes Cryotherapy (ice pack, ice massage): Yes Ultrasound (thermal/non thermal): Yes For the Purpose of:: To decrease pain, To decrease swelling/inflammation, To increase ROM Thank you for the opportunity to evaluate your patient. For Medicare and Medicare HMO plans, please review the plan of care and approve it. It will need to be FAXED BACK to us at [phone] for Medicare purposes. For Medicare only, by signing this I certify the plan of care. Please let me know if there are questions or concerns regarding this plan of care. Physician Signature: Date:
--- NOTE | 2019-02-12 09:35 | HP.PTREVAL_ITS ---
Everette Adkins MD, It has been my pleasure to treat SVEN ALEJO over the last 7 visits for R greater trochanteric bursitis. Please see the progress note below for an update on the physical therapy plan of care! Subjective: Pt. reports I am having less pain, but overall I still having pain in my right hip. Pt. reports reports 4/10 pain currently. No pain with sitting, increased pain wtih standing and walking. Pt. has been HEP compliant with all exercises at home. Objective/Function: RLE- ROM: flexion 120deg mild increase in groin pain at end range (not comparable sign), abd 45deg NE, ext 10deg NE, IR 30deg mild increase NW, ER 445deg increase NE. Lumbar spine: flexion min loss (tightness), extension mod loss increase NW, SB min loss bilat NE, rotation min loss bilat NE. GAIT: Pt. ambulates wtihout AD, but has a large lateral hip sway and drops off. STAIRS: pt. is able to negotaite steps with BHR, but has increased R hip pain and feels weak with negotation, only with RLE, worst with descending. SHe did have improved walking and decreased pain wiht flexion based exercises this date. I would like to work a bit into this to determine if some flexion based exercises reduce her symptoms. Cont. with strengthening as well. Plan Plan: SHe did have improved walking and decreased pain wiht flexion based exercises this date. I would like to work a bit into this to determine if some flexion based exercises reduce her symptoms. Cont. with strengthening as well. Pt. consents. Goals Goal 1:: Pt. to be I with HEP. Goal Time Frame: 4-6 Weeks Goal Progress: Progressing Goal 2:: Pt. to walk with improved pattern and 0-2/10 pain in R hip. Goal Time Frame: 4-6 Weeks Goal Progress: Progressing Goal 3:: Pt. to have increased R hip muscle length including HS, piriformis, hip flexor and quads. Goal Time Frame: 4-6 Weeks Goal Progress: Progressing Goal 4:: Pt. to have increase R hip strength by 1/2 grade throughout. Goal Time Frame: 4-6 Weeks Goal Progress: Progressing Goal 5:: Pt. to sleep throughout the night without increase in symptoms. Goal Progress: Progressing Anticipated Interventions Patient/Client Instruction: Educate patient on: Condition, Plan of Care, Risk Factors, Benefits of Fitness Program For the Purpose of:: To foster healthy habits, To improve decision making, To facilitate caregiver knowledge, To improve self management, To prevent re- injury, To improve ability to perform tasks related to life management, To improve tolerance to ADL's Therapeutic Exercise to Include: Strength training, Power training, Postural training, Flexibilty training, Gait and locomotor training, Passive ROM, Active ROM, Dynamic Lumbar Stabilization For the Purpose of:: To decrease pain, To decrease swelling/inflammation, To increase ROM, To improve nutrient delivery to tissue, To increase oxygenation perfusion, To improve ability to perform ADL's, To improve gait and locomotor functions, To improve health of tissue, To decrease soft tissue restriction Manual Therapy Techniques to Include: Functional dry needling, Soft tissue mobilization For the Purpose of:: To decrease pain, To decrease swelling/inflammation, To increase ROM TENS: Yes Cryotherapy (ice pack, ice massage): Yes Ultrasound (thermal/non thermal): Yes For the Purpose of:: To decrease pain, To decrease swelling/inflammation, To increase ROM Please do not hesitate to contact me at [phone] by phone or if you have questions or concerns regarding this new plan of care! Sincerely, Romario Castro DPT
== END 2019-02-16 19:00 | disposition home or self-care (01) ==
LOC: PT 09:30
PROVIDERS: Family Provider Family Medicine; PCP Family Medicine; Referring Provider Specialist; Visit Provider Specialist
DX: M70.61 Trochanteric bursitis, right hip (principal)
CPT/HCPCS: 97035; 97110; 97140; 97161; 97530

== ENCOUNTER 2019-06-05 15:41 | Outpatient (RCR) | payer MEDICARE, SELFPAY ==
[2019-05-24 15:16] LABS: International Normalized Ratio 1.1; Prothrombin Time (Protime)PT. 14.5 SECONDS (11.7-14.9)
[2019-05-28 12:39] LABS: International Normalized Ratio 1.6
[2019-06-01 11:43] LABS: International Normalized Ratio 2.4; Prothrombin Time (Protime)PT. 26.4 SECONDS (11.7-14.9)
[2019-06-05 16:35] LABS: International Normalized Ratio 2.7
== END 2019-06-05 23:59 | disposition home or self-care (01) ==
LOC: LAB 15:41
PROVIDERS: PCP Family Medicine
DX: I48.0 Paroxysmal atrial fibrillation (principal)
CPT/HCPCS: 36415; 85610

== ENCOUNTER 2019-06-24 11:11 | Emergency (ER) | payer MEDICARE, SELFPAY ==
[2019-06-24 11:13] VITALS: BP 147/71; PULSE 78; RESP 16; TEMP 37.4; O2SAT 97; BMI 34.3
[2019-06-24 11:50] LABS: Absolute Lymphocyte Count 1.17 X10^3/uL (0.83-4.51); Absolute Neutrophil Count 9.9 X10^3/uL (2.0-7.7); Basophil# 0.06 X10^3/uL; Basophil% 0.5 % (0-1); Eosinophil# 0.12 X10^3/uL; Hemoglobin 11.9 g/dL (12.0-15.0); Lymphocyte # 1.17 X10^3/ul (4.0); Lymphocyte % 9.7 % (19-41); Mean Corp Hgb Conc 31.3 g/dL (32-36); Mean Corpuscular Hgb 27.2 pg (27.0-32.0); Mean Platelet Vol. 11.3 fl (6.2-12.0); Monocyte# 0.84 X10^3/uL; Monocyte% 6.9 % (0-10); NRBC Flagged by Analyzer 0 % (0-5); Neutrophil # 9.85 X10^3/uL (2.7-7.7); Neutrophil % 81.4 % (47-70); Platelet Count 238 K/mm3 (150-450); RBC Distribution Width CV 13.8 % (11.6-14.6); RBC Distribution Width SD 43.7 fl (35.1-43.9); Red Blood Count 4.37 M/mm3 (4.2-5.4); White Blood Count 12.1 K/mm3 (4.4-11.0)
[2019-06-24 12:00] LABS: Anion Gap 6 (5-15); BUN 19 mg/dL (7-18); Chloride 102 mmol/L (98-107); Creatinine, Serum 1.19 mg/dL (0.55-1.02); EST Glomerular Filtration Rate 48 mL/min (>60); Est Glom Filt Rate - Afr Amer 58 mL/min (>60); Estimated Creatinine Clearance 37.44 ml/min; Glucose 197 mg/dL (74-106); Potassium 4.3 mmol/L (3.5-5.1); Sodium Level 134 mmol/L (136-145)
[2019-06-24 12:12] LABS: Lactic Acid 1.4 mmol/L (0.4-1.9)
[2019-06-24 12:16] VITALS: BP 155/53; PULSE 83; RESP 18; TEMP 37.9; O2SAT 96
[2019-06-24] MEDS: 0.9% Normal Saline 1,000 ML 150 ML IV (12:19)
[2019-06-24 12:20] LABS: Mucous, Urine 0 SEEN /hpf (<or=2+)
[2019-06-24 12:22] LABS: Color, Urine Yellow (Yellow); Glucose, Dipstick Normal (Normal); Ketone-Dipstick Negative (Negative); Leukocyte Esterase-Dipstick 500 /ul (Negative); Nitrite-Dipstick Positive (Negative); Occult Blood-Urine 250 /ul (Negative); Protein-Dipstick 100 mg/dl (Negative); Specific Gravity, Urine 1.015 (1.002-1.030); Urine Bilirubin Dipstick Negative (Negative); Urine Clarity Cloudy (Clear); Urine Urobilinogen Normal (Normal)
[2019-06-24 12:39] LABS: Bacteria 2+ /hpf (None Seen); Red Blood Cells-Urine 25-50 SEEN /hpf (0-5); White Blood Cells 25-50 SEEN /hpf (0-5)
[2019-06-24 12:40] LABS: Squamous Epithelial Cells - UA 0-5 SEEN /hpf (5-10)
[2019-06-24] MEDS: Ceftriaxone 1 GM/50 ML BAG IV (12:55)
--- NOTE | 2019-06-24 13:04 | ED.DCSUM_ITS ---
- ER Visit Summary Date of Service: 06/24/19 Chief Complaint: [Dysuria] History of Present Illness: The patient is a 69 F [presents the emergency department with complaint of dysuria that started] 4 days ago. Patient complains of cloudy urine that looks like milk. 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 Uribe. Patient denies any vomiting although she is had some mild nausea. She is had decreased appetite. She is had low-grade fever at home up to 100.4. Patient has history of type 2 diabetes, CVA, hypertension, high cholesterol, GERD, and history of UTIs. Patient's had prior appendectomy, cholecystectomy, and hysterectomy. Physical Examination: [HEENT-PERRLA, EOMI. Cranial nerves II through XII grossly intact. TMs clear. Mucous membranes moist. No adenopathy. Cardiovascular-regular rate and rhythm without murmur or ectopy Lungs-clear to auscultation, chest wall stable without crepitus or subcu emphysema Abdomen-normoactive bowel sounds, soft. Patient has some mild diffuse suprapubic tenderness on palpation. There is no rebound, rigidity, peritoneal signs. Patient has multiple surgical wounds from port sites that are healing well without any evidence of infection. Extremities-intact ?4, normal range of motion, normal pulses, atraumatic] Test Results: [CBC with differential obtained showed a white count of 12.1, hemoglobin 11.9, hematocrit 38, platelets 238. Chemistries unremarkable. BUN was 19 and creatinine 1.19. Urinalysis was positive for 500 cassette esterase as well as positive for nitrites as well as WBCs. Lactate was 1.4.] Emergency Department Course and Treatment: [Patient was started on Rocephin 1 g IV. Patient case discussed with urologist on-call for Dr. Uribe. I spoke with Dr. Pugh who was comfortable with treating patient with antibiotics and close follow-up. If her symptoms do not improve they will reevaluate. This point he did not feel any imaging would be indicated.] Treatment Plan: [Patient will be started on ciprofloxacin p.o. And recommended follow-up with her urologist in 3 to 5 days. Patient advised to return if worsening pain, fever, vomiting, dehydration, or condition worsen anyway. Patient also will be given Pyridium.] Disposition: [Discharged home in stable condition] Impression: [Urinary tract infection] This note was generated with [employer] dictation software. It may contain incorrect words, spelling, and punctuation that were not noted in review of the chart prior to signing ED Disposition - Plan for ED Patient: Referrals: Jad Pepe MD [Primary Care Provider] -
--- NOTE | 2019-06-24 13:21 | ED.DEP ---
ED Disposition - Plan for ED Patient: Instructions: ED CYSTITIS Female Adult Prescriptions: Ciprofloxacin [Cipro] 500 mg PO BID #14 tab Transmission Status: Pending to [facility] Phenazopyridine HCl [Pyridium] 200 mg PO BID PRN PRN #10 tab PRN Reason: Pain Transmission Status: Pending to [facility] Referrals: Jad Pepe MD [Primary Care Provider] - Additional Instructions: See Dr. Uribe in 3-5 days
[2019-06-24 14:34] VITALS: BP 165/95; PULSE 84; RESP 16; O2SAT 96
--- NOTE | 2019-06-24 22:57 | ED.RN ---
LAB REPORTED THAT THE PT GREW IN ANEROBIC BLOOD CULTURE BOTTLE , GRAM NEGATIVE RODS. SPOKE WITH RUBEN PHARMACIST AND STATED ROCEPHIN THE PT RECIEVED TREATED THE GRAM NEGATIVE RODS.
== END 2019-06-24 14:38 | disposition home or self-care (01) ==
LOC: ED 13:25
PROVIDERS: Emergency Provider Emergency Medicine; PCP Nurse Practitioner Family
DX: N39.0 Urinary tract infection, site not specified (principal); I10 Essential (primary) hypertension; E78.00 Pure hypercholesterolemia, unspecified; E11.9 Type 2 diabetes mellitus without complications; K21.9 Gastro-esophageal reflux disease without esophagitis; Z86.73 Personal history of transient ischemic attack (TIA), and cerebral infarction without residual deficits; Z79.01 Long term (current) use of 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; Z79.899 Other long term (current) drug therapy
CPT/HCPCS: 80048; 81001; 83605; 85025; 87040; 87077; 87086; 87088; 87186; 96361; 96365; 96366; 99283; J7030; J7050; A4216

== ENCOUNTER 2019-06-28 11:56 | Outpatient (RCR) | payer MEDICARE, SELFPAY ==
[2019-06-20 12:53] LABS: International Normalized Ratio 3.2; Prothrombin Time (Protime)PT. 32.6 SECONDS (11.7-14.9)
[2019-06-28 12:42] LABS: International Normalized Ratio 2.4
== END 2019-07-05 18:00 | disposition home or self-care (01) ==
LOC: LAB 11:56
PROVIDERS: PCP Family Medicine
DX: I48.0 Paroxysmal atrial fibrillation (principal)
CPT/HCPCS: 36415; 85610

== ENCOUNTER 2019-07-27 13:26 | Outpatient (RCR) | payer MEDICARE, SELFPAY ==
[2019-07-13 14:04] LABS: International Normalized Ratio 2.8; Prothrombin Time (Protime)PT. 29.3 SECONDS (11.7-14.9)
[2019-07-27 13:57] LABS: Prothrombin Time (Protime)PT. 30.4 SECONDS (11.7-14.9)
== END 2019-07-27 18:00 | disposition home or self-care (01) ==
LOC: LAB 13:26
PROVIDERS: PCP Nurse Practitioner Family
DX: I48.0 Paroxysmal atrial fibrillation (principal)
CPT/HCPCS: 36415; 85610

== ENCOUNTER 2019-12-03 12:49 | Outpatient (RCR) | payer MEDICARE, SELFPAY ==
[2019-11-16 15:04] LABS: International Normalized Ratio 1.4; Prothrombin Time (Protime)PT. 16.7 SECONDS (11.7-14.9)
[2019-11-23 13:44] LABS: International Normalized Ratio 1.7; Prothrombin Time (Protime)PT. 19.2 SECONDS (11.7-14.9)
[2019-12-03 14:18] LABS: Prothrombin Time (Protime)PT. 22.4 SECONDS (11.7-14.9)
== END 2019-12-03 18:00 | disposition home or self-care (01) ==
LOC: LAB 12:49
PROVIDERS: PCP Nurse Practitioner Family
DX: I48.0 Paroxysmal atrial fibrillation (principal)
CPT/HCPCS: 36415; 85610

== ENCOUNTER 2019-12-17 15:32 | Outpatient (RCR) | payer MEDICARE, SELFPAY ==
[2019-12-10 13:33] LABS: International Normalized Ratio 1.8; Prothrombin Time (Protime)PT. 20.4 SECONDS (11.7-14.9)
[2019-12-17 17:05] LABS: International Normalized Ratio 2.3; Prothrombin Time (Protime)PT. 24.4 SECONDS (11.7-14.9)
== END 2019-12-17 18:00 | disposition home or self-care (01) ==
LOC: LAB 15:32
PROVIDERS: PCP Nurse Practitioner Family
DX: I48.0 Paroxysmal atrial fibrillation (principal)
CPT/HCPCS: 36415; 85610

== ENCOUNTER 2020-01-25 14:10 | Outpatient (RCR) | payer MEDICARE, SELFPAY ==
[2020-01-17 13:04] LABS: International Normalized Ratio 1.8; Prothrombin Time (Protime)PT. 20.4 SECONDS (11.7-14.9)
[2020-01-25 16:36] LABS: International Normalized Ratio 2.1; Prothrombin Time (Protime)PT. 23.2 SECONDS (11.7-14.9)
== END 2020-01-25 18:00 | disposition home or self-care (01) ==
LOC: LAB 14:10
PROVIDERS: PCP Nurse Practitioner Family
DX: I48.0 Paroxysmal atrial fibrillation (principal)
CPT/HCPCS: 36415; 85610

== ENCOUNTER 2020-02-22 13:08 | Outpatient (RCR) | payer MEDICARE, SELFPAY ==
[2020-02-22 14:21] LABS: Prothrombin Time (Protime)PT. 22.5 SECONDS (11.7-14.9)
== END 2020-02-22 18:00 | disposition home or self-care (01) ==
LOC: LAB 13:08
PROVIDERS: PCP Nurse Practitioner Family
DX: I48.0 Paroxysmal atrial fibrillation (principal)
CPT/HCPCS: 36415; 85610

== ENCOUNTER 2022-08-14 21:43 | Emergency (ER) | payer MEDICARE, SELFPAY ==
[2022-08-14 21:44] VITALS: BP 152/72; PULSE 73; RESP 19; TEMP 36.2; O2SAT 93; BMI 34.7
[2022-08-14 21:56] VITALS: O2SAT 96
--- NOTE | 2022-08-14 21:56 | EKG12_ITS ---
Test Reason : CP Blood Pressure : / mmHG Vent. Rate : 068 BPM Atrial Rate : 068 BPM P-R Int : 216 ms QRS Dur : 114 ms QT Int : 440 ms P-R-T Axes : -09 077 050 degrees QTc Int : 467 ms Sinus rhythm with 1st degree A-V block Incomplete right bundle branch block Borderline ECG Confirmed by MARLEN BRYANT, CAS ([id number]), commercial production editor SIMI DESAI ([id number]) on 08/16/2022 1:24:25 PM Referred By: PRETTY Confirmed By:CAS GEE MD
--- NOTE | 2022-08-14 22:02 | EDS_ITS ---
HPI History of Present Illness Chief Complaint: Chest Pain Informant: patient Onset/Context/Timing Onset: Yesterday Activity at onset: gradual Timing: Waxes and wanes Quality: Positive for Tightness (And twisting) Location: Substernal Worsened By: Eating (And drinking) Relieved By: Nothing Associated Symptoms: Positive for Nausea, Dyspnea and Lightheadedness; Negative for Vomiting, Diaphoresis, Cough, Fever, Acid Reflux or Palpitations Narrative Narrative: Patient presents with chest pain that began yesterday. Patient started to get better today and that tonight her pain became worse again. Patient describes it as a tightness and twisting in her chest. Patient states it is over the lower substernal area. Patient states it is worse with eating and drinking. Patient states nothing seems to help with it. Patient admits to some nausea denies any vomiting. Patient states she did take some antacids and Tums tonight with no improvement. Patient admits to some shortness of breath but denies any cough or fevers. Patient does admit to some lightheadedness. CVD Risk Factors: Positive for Hypertension, Diabetes, Hypercholesterolemia and Family History 1' </=55; Negative for Smoking PE Risk Factors: Positive for Prior DVT or PE and OCP + Smoking + >/=35; Negative for Recent Travel/Surgery, Recent Immobilization or Cancer [facility] Medical History (Updated 08/14/22 @ 23:[address] Adonis Reyez, ) Afib Arthritis Asthma Diabetes Difficulty balancing Hemorrhoids Hypertension Knee pain Shoulder pain Thyroid disease Home Medications acetaminophen 325 mg tablet 1,000 mg PO QHS 06/26/16 [History Last Taken 06/29/16 1000 mg] famotidine 20 mg tablet 20 mg PO QHS #30 tabs 07/23/16 [Rx Last Taken Unknown] loratadine 10 mg tablet 10 mg PO QHS 30 days 07/23/16 [Rx Last Taken Unknown] sotalol 80 mg tablet 120 mg PO BID 07/23/16 [Rx Last Taken Unknown] losartan 25 mg tablet 12.5 mg PO DAILY 01/10/17 [History Last Taken Unknown] warfarin 2.5 mg tablet 5 mg PO DAILY 01/10/17 [History Last Taken Unknown] glipizide 5 mg tablet 10 mg PO DAILY 07/23/18 [History Last Taken Unknown] ciprofloxacin HCl 500 mg tablet 500 mg PO BID #14 tabs 06/24/19 [Rx Last Taken Unknown] phenazopyridine 200 mg tablet 200 mg PO BID PRN PRN Pain #10 tabs 06/24/19 [Rx Last Taken Unknown] Allergy/AdvReac Type Severity Reaction Status Date / Time Sulfa (Sulfonamide AdvReac Unknown Diarrhea Verified 08/14/22 21:44 Antibiotics) celecoxib [From Celebrex] AdvReac Nausea/Vom/ Verified 08/14/22 21:44 Diarrhea fluoxetine HCl [From Prozac] AdvReac Other Verified 08/14/22 21:44 isosorbide AdvReac Other Verified 08/14/22 21:44 metformin AdvReac Nausea/Vom/ Verified 08/14/22 21:44 Diarrhea Family History Other CVA (cerebral vascular accident) Diabetes Heart disease Surgical History History of appendectomy History of cholecystectomy History of hysterectomy History of knee replacement History of shoulder surgery Social History Smoking Status: Never smoker ROS ROS ED Constitutional Constitutional ED: Denies chills or fever(s) Eyes Eyes: Denies blurry vision or change in vision ENT ENT ED: Denies rhinorrhea or sore throat Cardiovascular Cardiovascular: Reports chest pain; Denies palpitations Respiratory/Chest Respiratory/Chest: Reports dyspnea; Denies cough Gastrointestinal Gastrointestinal: Reports nausea; Denies abdominal pain or vomiting Genitourinary Genitourinary ED: Reports dysuria; Denies hematuria Musculoskeletal Musculoskeletal: Reports back pain; Denies neck pain Integumentary Denies abscess or rash Neurologic Neurologic: Denies headache(s) or weakness Allergic/Immunologic Allergic/Immunologic ED: Denies mouth swelling or urticaria EXAM Physical Exam Const Vital Signs: 08/14/22 21:44 08/14/22 22:24 08/14/22 21:56 Temperature 97.1 F L Temperature Source Temporal Pulse Rate 73 Respiratory Rate 19 H Respiratory Effort Normal Non-Labored Respiratory Pattern Normal Blood Pressure 152/72 H Blood Pressure Mean 98 Pulse Ox 93 96 Oxygen Delivery Method Room Air Room Air Positive well nourished, well developed and obese General Appearance ED: well developed and NAD Nutritional Appearance: obese HEENT normocephalic and atraumatic Eyes PERRL and EOMs intact bilaterally Neck supple and no JVD Chest Wall palpation of chest normal Resp normal respiratory effort and clear to auscultation bilaterally Effort and Inspection: Negative for respiratory distress Cardio regular rate and regular rhythm GI normal to inspection, nondistended, normoactive bowel sounds, soft to palpation, non-tender and non-distended Extremity normal to inspection General Extremety ED: Negative for edema or tenderness General Extremity: Negative for edema Neuro oriented x3, CN's II-XII intact bilaterally and no sensory deficits noted Sensorium / Orientation: awake and alert Motor Exam: strength 5/5 throughout Psych mental status grossly normal Heart Score History: Slightly/Non-Suspicious ECG: Normal Age: >/= 65 years Risk Factors: >/= 3 Risk Factors or History of CAD Troponin: </= Normal Limit Score: 4 MDM MDM MDM Narrative Medical decision making narrative: Differential diagnosis includes cardiac dysrhythmia, cardiac ischemia, pneumonia, pneumothorax, GERD, anxiety, and musculoskeletal pain. EKG will be obtained to assess for cardiac dysrhythmia and cardiac ischemia. Chest x-ray will be obtained to assess for pneumonia and pneumothorax. CBC will be obtained to assess for leukocytosis and anemia. Basic metabolic profile will be obtained to assess for electrolyte abnormality and renal function. High-sensitivity troponin will be obtained to assess for cardiac ischemia. Patient has a Wells score of 1.5. Therefore, I do not feel this is from a pulmonary embolism. Patient is also on Coumadin. Lab Data Attestation: I reviewed the patient's lab results. Lab results narrative: CBC was reviewed and was within normal limits. PT with INR was reviewed. PT was 25.7 and INR is therapeutic at 2.3. Basic metabolic profile was reviewed and was essentially within normal limits. High-sensitivity troponin was reviewed and was normal at 10. Labs: Laboratory Results - last 24 hr 08/14/22 08/14/22 08/14/22 22:20 22:20 22:35 WBC 9.5 RBC 4.38 Hgb 12.6 Hct 38.1 MCV 87.0 MCH 28.8 MCHC 33.1 RDW Std Deviation 43.4 RDW Coeff of Rukhsana 13.5 Plt Count 214 MPV 11.2 Immature Gran % (Auto) 0.300 Neut % (Auto) 58.6 Lymph % (Auto) 30.8 [place] % (Auto) 8.2 Eos % (Auto) 1.4 Baso % (Auto) 0.7 Absolute Neuts (auto) 5.6 Absolute Lymphs (auto) 2.93 Nucleated RBC % 0 PT 25.7 H INR 2.3 Sodium 139 Potassium 4.1 Chloride 106 Carbon Dioxide 27.0 Anion Gap 6 BUN 23 H Creatinine 1.04 H Estim Creat Clear Calc 40.98 Est GFR (MDRD) Af Amer 67 Est GFR (MDRD) Non-Af 55 L BUN/Creatinine Ratio 22.1 H Glucose 134 H Calcium 10.4 H Troponin I High Sens 10 Radiography Diagnostic Testing: Clinical Impression(s) from Imaging Studies Chest X-Ray 08/14/22 22:30 IMPRESSION: Normal x-ray examination of the chest. Electronically Signed: Ilia Salazar MD at 22:56 EDT , Portable 1 view chest x-ray was obtained. On my independent interpretation, lung arreaga are clear. There is normal cardiac silhouette. Bony thorax is normal. There is no acute process noted. Radiologist also interpreted the x- ray and agrees. EKG Initial EKG: Attestation: I personally reviewed and interpreted this EKG as follows: Interpretation: Sinus Rhythm (With first-degree AV block with a rate of 68), No Acute Injury Pattern and RBBB (Incomplete) Prior EKG tracings: available for review Prior: Unchanged (03/18/2017) Treatment and Re-Evaluation :: Patient was given aspirin and nitroglycerin here. Patient is feeling better on reevaluation. Patient was advised of her findings. Patient has a HEART score of 4. This is for her age and multiple risk factors. Patient was instructed to follow-up with her primary care physician in 5 to 7 days for further evaluation of her chest pain. Patient understood and was agreeable with the plan. All questions were answered. Discharge Plan Triage Chief Complaint: Chest Pain ED Provider: Adonis Reyez Dx/Rx/DC Orders Clinical Impression: Chest pain, HTN (hypertension) Instructions: ED Chest Pain, Uncertain Cause Prescriptions: No Action acetaminophen 325 MG tablet 1,000 mg PO QHS Label Comments: pain control sotalol 80 MG tablet 120 mg PO BID 0RF famotidine 20 MG tablet 20 mg PO QHS Qty: 30 0RF loratadine 10 MG tablet 10 mg PO QHS 30 Days 0RF warfarin 2.5 MG tablet 5 mg PO DAILY losartan 25 MG tablet 12.5 mg PO DAILY glipizide 5 MG tablet 10 mg PO DAILY Label Comments: TAKE 1 TABLET BY MOUTH TWICE DAILY Rx Instructions: 10 IN THE AM, 5 MG AT NIGHT ciprofloxacin HCl 500 MG tablet 500 mg PO BID Qty: 14 0RF phenazopyridine 200 MG tablet 200 mg PO BID PRN PRN (Reason: Pain) Qty: 10 0RF Primary Care Provider: Alexys Tracy Referrals: Alexys Tracy MD [Primary Care Provider] - 5-7 Days Disposition Disposition: Home, Self Care
[2022-08-14] MEDS: Aspirin 81 MG TAB.CHEW 324 MG PO (22:21)
[2022-08-14 22:27] LABS: Absolute Lymphocyte Count 2.93 X10^3/uL (0.83-4.51); Absolute Neutrophil Count 5.6 X10^3/uL (2.0-7.7); Basophil# 0.07 X10^3/uL; Basophil% 0.7 % (0-1); Eosinophil# 0.13 X10^3/uL; Eosinophils% 1.4 % (0-5); Hematocrit 38.1 % (37-47); Hemoglobin 12.6 g/dL (12.0-15.0); Lymphocyte # 2.93 X10^3/ul (0.83-4.51); Lymphocyte % 30.8 % (19-41); Mean Corp Hgb Conc 33.1 g/dL (32-36); Mean Corpuscular Hgb 28.8 pg (27.0-32.0); Mean Platelet Vol. 11.2 fl (6.2-12.0); Monocyte# 0.78 X10^3/uL; Monocyte% 8.2 % (0-10); NRBC Flagged by Analyzer 0 % (0-5); Neutrophil # 5.57 X10^3/uL (2.7-7.7); Neutrophil % 58.6 % (47-70); Platelet Count 214 K/mm3 (150-450); RBC Distribution Width CV 13.5 % (11.6-14.6); RBC Distribution Width SD 43.4 fl (35.1-43.9); Red Blood Count 4.38 M/mm3 (4.2-5.4); White Blood Count 9.5 K/mm3 (4.4-11.0)
--- NOTE | 2022-08-14 22:30 | RAD_ITS ---
STUDY: X-RAY CHEST REASON FOR EXAM: Female, 72 years old. chest pain TECHNIQUE: Single AP portable view of the chest. COMPARISON: 03/18/2017. FINDINGS: The lungs are clear and expanded. There is no demonstrated pleural abnormality. Normal size heart. Normal mediastinum and corina. Normal visualized pulmonary arteries. Normal visualized aortic arch and descending thoracic aorta. Normal visualized thoracic spine. Normal visualized ribs, clavicles, and shoulders. There is no demonstrated abnormality of the visualized soft tissue structures of the upper abdomen. RAD/Chest 1 View (Portable) IMPRESSION: Normal x-ray examination of the chest. Electronically Signed: Ilia Salazar MD at 22:56 EDT ,
[2022-08-14 22:43] LABS: Anion Gap 6 (5-15); BUN 23 mg/dL (7-18); BUN/Creat Ratio 22.1 RATIO (10-20); Calcium,Total 10.4 mg/dL (8.5-10.1); Chloride 106 mmol/L (98-107); Creatinine, Serum 1.04 mg/dL (0.55-1.02); EST Glomerular Filtration Rate 55 mL/min (>60); Est Glom Filt Rate - Afr Amer 67 mL/min (>60); Estimated Creatinine Clearance 40.98 ml/min; Glucose 134 mg/dL (74-106); Potassium 4.1 mmol/L (3.5-5.1); Sodium Level 139 mmol/L (136-145); Troponin-I HS 10 pg/mL (3.0-54.0)
[2022-08-14 22:49] LABS: International Normalized Ratio 2.3; Prothrombin Time (Protime)PT. 25.7 SECONDS (11.7-14.9)
[2022-08-14 23:13] VITALS: BP 115/71; PULSE 62; RESP 17
== END 2022-08-14 23:18 | disposition home or self-care (01) ==
PROVIDERS: Emergency Provider Emergency Medicine; PCP Family Medicine; Visit Provider Emergency Medicine
DX: R07.9 Chest pain, unspecified (principal); E11.9 Type 2 diabetes mellitus without complications; I10 Essential (primary) hypertension; R11.0 Nausea; R06.02 Shortness of breath; R30.0 Dysuria; E66.9 Obesity, unspecified; Z79.01 Long term (current) use of 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
CPT/HCPCS: 71045; 80048; 84484; 85025; 85610; 93005; 99284; A4216

== ENCOUNTER 2022-10-13 16:13 | Emergency (ER) | payer MEDICARE, SELFPAY ==
[2022-10-13 16:14] VITALS: BP 118/95; PULSE 66; RESP 14; TEMP 36.4; O2SAT 97; BMI 33.7
--- NOTE | 2022-10-13 16:53 | EDS_ITS ---
HPI HPI - GI History of Present Illness Chief Complaint: GI Bleed Detail of Chief Complaint: Hemorrhoidal bleeding. On Coumadin for A-fib. Informant: patient Abdominal Pain/Flank Pain Onset: Days Context: Gradual Onset Timing: Intermittent Nausea/Vomiting/Emesis GI Symptom: Negative for Vomiting Diarrhea/Melena/Hematochezia GI Symptom: Negative for Diarrhea or Melena Associated Symptoms Associated Symptoms: Negative for Dysuria, Frequency, Hematuria or Urgency Narrative Narrative: 72-year-old female history of A-fib on Coumadin also diabetes and hypertension. Chronic history of external hemorrhoids. She said her hemorrhoids have been bleeding for the last 6 days or so. Prior similar symptoms: Yes Recent Illness/Hospitalization: No PFSH PFSH Medical History (Updated 10/13/22 @ 20:[address] Gallito Roberson MD) Arthritis Asthma Chronic anemia CVA (cerebral vascular accident) Diabetes Hemorrhoids HLD (hyperlipidemia) Hypertension Obesity PAF (paroxysmal atrial fibrillation) VTE (venous thromboembolism) Home Medications acetaminophen 325 mg tablet 1,000 mg PO QHS 06/26/16 [History Last Taken 06/29/16 1000 mg] loratadine 10 mg tablet 10 mg PO QHS 30 days 07/23/16 [Rx Last Taken Unknown] sotalol 80 mg tablet 120 mg (1.5 x 80 mg) PO BID 07/23/16 [Rx Last Taken Unknown] losartan 25 mg tablet 12.5 mg PO DAILY 01/10/17 [History Last Taken Unknown] warfarin 2.5 mg tablet 5 mg PO DAILY 01/10/17 [History Last Taken Unknown] glipizide 5 mg tablet 10 mg PO DAILY 07/23/18 [History Last Taken Unknown] phenazopyridine 200 mg tablet 200 mg PO BID PRN PRN Pain #10 tabs 06/24/19 [Rx Last Taken Unknown] Allergy/AdvReac Type Severity Reaction Status Date / Time Sulfa (Sulfonamide AdvReac Unknown Diarrhea Verified 08/14/22 21:44 Antibiotics) celecoxib [From Celebrex] AdvReac Nausea/Vom/ Verified 08/14/22 21:44 Diarrhea fluoxetine HCl [From Prozac] AdvReac Other Verified 08/14/22 21:44 isosorbide AdvReac Other Verified 08/14/22 21:44 metformin AdvReac Nausea/Vom/ Verified 08/14/22 21:44 Diarrhea Family History (Updated 10/13/22 @ 20:[address] Elayne Mcmahon MD) Mother CVA (cerebral vascular accident) Diabetes Heart disease Father CVA (cerebral vascular accident) Diabetes Heart disease Surgical History (Updated 10/13/22 @ 20:[address] Elayne Mcmahon MD) History of appendectomy History of cholecystectomy History of hysterectomy History of knee replacement History of shoulder surgery Social History (Updated 10/13/22 @ 20:[address] Elayne Mcmahon MD) household members: spouse Smoking Status: Never smoker alcohol intake: never substance use type: does not use ROS ROS ED ROS Narrative Denies recent illness. Review of Systems ROS Unobtainable: Denies due to encephalopathy Constitutional Constitutional ED: Denies chills or fever(s) ENT ENT ED: Denies ear pain Cardiovascular Cardiovascular: Denies chest pain Respiratory/Chest Respiratory/Chest: Denies cough Gastrointestinal Gastrointestinal: Denies abdominal pain, diarrhea or vomiting Genitourinary Genitourinary ED: Denies dysuria or hematuria Musculoskeletal Musculoskeletal: Denies arthralgias Integumentary Denies abscess Neurologic Neurologic: Denies headache(s) Psychiatric Psychiatric: Denies anxiety Endocrine Endocrinology: Denies polydipsia Hematologic/Lymphatic Hematologic/Lymphatic: Denies easy bleeding Allergic/Immunologic Allergic/Immunologic ED: Denies mouth swelling EXAM Physical Exam Narrative Exam Narrative: Well-appearing 72-year-old female. Vital signs stable afebrile. No distress. at bedside. HEENT exam unremarkable. Lungs clear. Heart regular rhythm rate of 66. No murmur. Abdomen soft nontender. Moving all 4 extremities. Nontender. No significant edema. She has multiple external hemorrhoids nonthrombosed. Currently there is no active bleeding at this time. She is awake and alert. Moving all 4 extremities. Const Vital Signs: 10/13/22 16:14 10/13/22 19:39 Temperature 97.6 F L Temperature Source Temporal Pulse Rate 66 64 Respiratory Rate 14 15 Blood Pressure 118/95 H 146/66 H Blood Pressure Mean 102 92 Pulse Ox 97 97 Oxygen Delivery Method Room Air Room Air Positive well nourished and well developed; Negative for cachectic, contractures or unkempt General Appearance ED: well developed and NAD; Negative for unkempt, cachectic, contractures or pallor Nutritional Appearance: Negative for cachectic HEENT Reports moist mucous membranes normocephalic and atraumatic; Negative for trauma or tenderness Eyes PERRL and EOMs intact bilaterally General Eye ED: Negative for pale conjunctiva or scleral icterus Neck no lymphadenopathy, supple and no JVD General: Negative for tenderness Carotids: Negative for other Lymph Lymphatic: Negative for other Resp normal respiratory effort and clear to auscultation bilaterally Effort and Inspection: Negative for respiratory distress Auscultation: Negative for rales, rhonchi or wheezes Cardio regular rate, regular rhythm, S1 normal heart sound, S2 normal heart sound and no murmurs Rhythm: Negative for abnormal rhythm GI non-tender, non-distended and no masses Inspection: Negative for abdominal distention Auscultation: normoactive bowel sounds Palpation: soft; Negative for tender or guarding Back/Spine no CVA tenderness General Back: Negative for CVA tenderness Cervical Spine: Negative for cervical spine tenderness Thoracic Spine / Upper Back: Negative for thoracic spinal tenderness Lumbar Spine / Lower Back: Negative for lumbar spinal tenderness Coccyx: Negative for other Extremity full ROM General Extremety ED: Negative for edema or tenderness General Extremity: Negative for edema Neuro CN's II-XII intact bilaterally Sensorium / Orientation: alert, oriented to person, oriented to place and orie nted to time; Negative for orientation impaired, confused or lethargic Motor Exam: strength 5/5 throughout Psych Appearance: Negative for unkempt Attitude: No agitated Mood & Affect: Negative for depressed, anxious or tearful Skin no wounds General Skin Exam: Negative for jaundice or pallor Lesions: no lesions Rashes: no rashes Trauma: Negative for abrasion Nails: Negative for discolored MDM MDM MDM Narrative Medical decision making narrative: 72-year-old with bleeding from her hemorrhoids. On Coumadin for A-fib. CBC, chemistry and INR be checked. Currently there is no heavy bleeding. Patient told the nurse she might be having some urinary symptoms so UA was obtained also. Repeat exam patient is doing well. She will be instructed to follow-up with general surgery for possible hemorrhoidectomy. Preparation H cream. Continue her current medications. Return if worse. History & Record Review Discussion w/independent historian: Patient Additional record(s) reviewed:: Prior inpatient record, Prior outpatient record, Prior ED visit and Prior labs Lab Data Attestation: I reviewed the patient's lab results. Lab results narrative: BC shows a white count 8.9. H&H 11.9 and 37.6. That is her baseline hemoglobin. Prior labs are consistent with that. Platelets 235. Electrolytes show gap of 7. BUN and creatinine 18 and 1.1. Glucose 158. PT/INR of 28 and 2.6 which is therapeutic. Urinalysis normal. Labs: Laboratory Results - last 24 hr 10/13/22 10/13/22 17:00 17:15 WBC 8.9 RBC 4.29 Hgb 11.9 L Hct 37.6 MCV 87.6 MCH 27.7 MCHC 31.6 L RDW Std Deviation 44.8 H RDW Coeff of Rukhsana 13.9 Plt Count 235 MPV 11.6 PT 28.2 H INR 2.6 Sodium 139 Potassium 4.1 Chloride 106 Carbon Dioxide 26.0 Anion Gap 7 BUN 18 Creatinine 1.11 H Estim Creat Clear Calc 38.40 Est GFR (MDRD) Af Amer 62 Est GFR (MDRD) Non-Af 51 L BUN/Creatinine Ratio 16.2 Glucose 158 H Calcium 9.6 Urine Color Yellow Urine Clarity Clear Urine pH 7.0 Ur Specific [place] 1.005 Urine Protein Negative Urine Glucose (UA) 50 H Urine Ketones Negative Urine Occult Blood Negative Urine Nitrite Negative Urine Bilirubin Negative Urine Urobilinogen Normal Ur Leukocyte Esterase Negative Urine RBC 0 SEEN Urine WBC 0 SEEN Ur Squamous Epith Cells 0 SEEN Urine Bacteria 0 SEEN Urine Mucus 0 SEEN Discharge Plan Triage Chief Complaint: GI Bleed ED Provider: Gallito Roberson Dx/Rx/DC Orders Clinical Impression: Chronic anticoagulation, Bleeding hemorrhoids, Acute lower gastrointestinal bleeding Instructions: ED Hemorrhoids, ED Lower GI Bleeding (Stable) Prescriptions: No Action acetaminophen 325 MG tablet 1,000 mg PO QHS Patient Comments: pain control sotalol 80 MG tablet 120 mg PO BID 0RF loratadine 10 MG tablet 10 mg PO QHS 30 Days 0RF warfarin 2.5 MG tablet 5 mg PO DAILY losartan 25 MG tablet 12.5 mg PO DAILY glipizide 5 MG tablet 10 mg PO DAILY Patient Comments: TAKE 1 TABLET BY MOUTH TWICE DAILY Rx Instructions: 10 IN THE AM, 5 MG AT NIGHT phenazopyridine 200 MG tablet 200 mg PO BID PRN PRN (Reason: Pain) Qty: 10 0RF Hold Instructions: Pt has been DC'd Primary Care Provider: Alexys Tracy Referrals: Neal Sun MD [Med Staff - Active Staff] - As soon as possible Alexys Tracy MD [Primary Care Provider] - Activity Restrictions/Additional Instructions: Follow-up with a local general surgeon to discuss with them possible hemorrhoidectomy. Your labs were okay today. Your Coumadin level was 2.6. Your hemoglobin was 11.9. Your urinalysis was normal. Return if heavy bleeding otherwise outpatient follow-up. Disposition Disposition: Home, Self Care
[2022-10-13 17:19] LABS: Hematocrit 37.6 % (37-47); Hemoglobin 11.9 g/dL (12.0-15.0); Mean Corp Hgb Conc 31.6 g/dL (32-36); Mean Corpuscular Hgb 27.7 pg (27.0-32.0); Mean Corpuscular Volume 87.6 fL (81-99); Mean Platelet Vol. 11.6 fl (6.2-12.0); Platelet Count 235 K/mm3 (150-450); RBC Distribution Width CV 13.9 % (11.6-14.6); RBC Distribution Width SD 44.8 fl (35.1-43.9); Red Blood Count 4.29 M/mm3 (4.2-5.4); White Blood Count 8.9 K/mm3 (4.4-11.0)
[2022-10-13 17:24] LABS: International Normalized Ratio 2.6; Prothrombin Time (Protime)PT. 28.2 SECONDS (11.7-14.9)
[2022-10-13 17:25] LABS: Anion Gap 7 (5-15); BUN 18 mg/dL (7-18); BUN/Creat Ratio 16.2 RATIO (10-20); Calcium,Total 9.6 mg/dL (8.5-10.1); Chloride 106 mmol/L (98-107); Creatinine, Serum 1.11 mg/dL (0.55-1.02); EST Glomerular Filtration Rate 51 mL/min (>60); Est Glom Filt Rate - Afr Amer 62 mL/min (>60); Glucose 158 mg/dL (74-106); Potassium 4.1 mmol/L (3.5-5.1); Sodium Level 139 mmol/L (136-145)
[2022-10-13 17:41] LABS: Bacteria 0 SEEN /hpf (None Seen); Mucous, Urine 0 SEEN /hpf (<or=2+); Red Blood Cells-Urine 0 SEEN /hpf (0-5); Squamous Epithelial Cells - UA 0 SEEN /hpf (5-10); White Blood Cells 0 SEEN /hpf (0-5)
[2022-10-13 18:02] LABS: Color, Urine Yellow (Yellow); Glucose, Dipstick 50 mg/dl (Normal); Ketone-Dipstick Negative (Negative); Leukocyte Esterase-Dipstick Negative /ul (Negative); Nitrite-Dipstick Negative (Negative); Occult Blood-Urine Negative /ul (Negative); Protein-Dipstick Negative (Negative); Specific Gravity, Urine 1.005 (1.002-1.030); Urine Bilirubin Dipstick Negative (Negative); Urine Clarity Clear (Clear); Urine Urobilinogen Normal (Normal)
[2022-10-13 19:39] VITALS: BP 146/66; PULSE 64; RESP 15; O2SAT 97
== END 2022-10-13 20:55 | disposition home or self-care (01) ==
PROVIDERS: Emergency Provider Emergency Medicine; PCP Family Medicine; Visit Provider Emergency Medicine
DX: K64.4 Residual hemorrhoidal skin tags (principal); I48.91 Unspecified atrial fibrillation; E11.9 Type 2 diabetes mellitus without complications; K92.2 Gastrointestinal hemorrhage, unspecified; I10 Essential (primary) hypertension; E78.5 Hyperlipidemia, unspecified; Z79.01 Long term (current) use of 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
CPT/HCPCS: 80048; 81001; 85027; 85610; 99283; A4216

== ENCOUNTER 2023-01-01 11:29 | Emergency (ER) | payer MEDICARE, SELFPAY ==
[2023-01-01 11:30] VITALS: BP 147/73; PULSE 69; RESP 16; TEMP 35.9; O2SAT 99; BMI 34.0
--- NOTE | 2023-01-01 11:55 | CT_ITS ---
INDICATION: trauma EXAMINATION: CT BRAIN - CT Head or Brain W/O Contrast Injection TECHNIQUE: Multiple axial images were obtained of the head without intravenous contrast. A radiation dose optimization technique was used for this scan. IV Contrast dosage and agent: None. RADIATION DOSAGE (If Supplied By Facility): CTDIvol = ( 44.99 ) mGy, DLP = ( 796.11 ) mGycm COMPARISON: March 18, 2017. FINDINGS: BRAIN PARENCHYMA: Dystrophic calcifications are again seen within the basal ganglia bilaterally likely age related. No intra- or extra-axial hemorrhage. No evidence of acute infarct. No intracranial mass or mass effect. There is preservation of the cherry/white matter interface. Posterior fossa structures are unremarkable. CSF SPACES: Appropriate for age. No hydrocephalus. Basal cisterns are patent. CALVARIUM, SKULL BASE, PARANASAL SINUSES AND MASTOID AIR CELLS: Clear. No discrete lytic or blastic abnormalities. ORBITS: Both globes, extraocular muscles, optic nerves and retrobulbar fat appear unremarkable. ASPECTS Score for Acute Strokes: [address]/Brain/Head without Contrast IMPRESSION: Dystrophic calcifications basal ganglia bilaterally likely age related. Otherwise negative Brain CT without contrast. Electronically Signed: Alexys Young MD at 13:22 EDT ,
--- NOTE | 2023-01-01 11:56 | EDS_ITS ---
HPI HPI - Fall History of Present Illness Chief Complaint: Fall Detail of Chief Complaint: Fall Informant: patient Narrative Narrative: Patient presents to the emergency department with a fall that occurred this [place] around 6:30 AM. Patient states that she was moving something when she lost her balance and fell striking her head on a chair. Patient also went down onto her right side injuring her right hand and right hip. She has been ambulatory. She had no loss of consciousness. Patient is concerned because she is on Coumadin for history of A-fib. She denies any neck pain. Patient has had prior right hip replacement. Patient has had prior right knee replacement. Patient states her head just does not feel right. [facility] Medical History (Updated 01/01/23 @ 12:[address] Arben Wagner, ) Arthritis Asthma Chronic anemia CVA (cerebral vascular accident) Diabetes Hemorrhoids HLD (hyperlipidemia) Hypertension Obesity PAF (paroxysmal atrial fibrillation) Rectal pain VTE (venous thromboembolism) Home Medications acetaminophen 325 mg tablet 1,000 mg PO QHS 06/26/16 [History Last Taken 06/29/16 1000 mg] loratadine 10 mg tablet 10 mg PO QHS 30 days 07/23/16 [Rx Last Taken Unknown] sotalol 80 mg tablet 120 mg (1.5 x 80 mg) PO BID 07/23/16 [Rx Last Taken Unknown] losartan 25 mg tablet 12.5 mg PO DAILY 01/10/17 [History Last Taken Unknown] warfarin 2.5 mg tablet 5 mg PO DAILY 01/10/17 [History Last Taken Unknown] glipizide 5 mg tablet 10 mg PO DAILY 07/23/18 [History Last Taken Unknown] phenazopyridine 200 mg tablet 200 mg PO BID PRN PRN Pain #10 tabs 06/24/19 [Rx Last Taken Unknown] Diltiazem 2% / Lidocaine 5% ointment (compound) #1 ea 10/15/22 [Rx Last Taken Unknown] Allergy/AdvReac Type Severity Reaction Status Date / Time Sulfa (Sulfonamide AdvReac Unknown Diarrhea Verified 01/01/23 11:30 Antibiotics) celecoxib [From Celebrex] AdvReac Nausea/Vom/ Verified 01/01/23 11:30 Diarrhea fluoxetine HCl [From Prozac] AdvReac Other Verified 01/01/23 11:30 isosorbide AdvReac Other Verified 01/01/23 11:30 metformin AdvReac Nausea/Vom/ Verified 01/01/23 11:30 Diarrhea Family History Mother CVA (cerebral vascular accident) Diabetes Heart disease Father CVA (cerebral vascular accident) Diabetes Heart disease Surgical History History of appendectomy History of cholecystectomy History of hysterectomy History of knee replacement History of shoulder surgery Social History household members: spouse Smoking Status: Never smoker alcohol intake: never substance use type: does not use ROS ROS ED Review of Systems ROS Unobtainable: other Constitutional Constitutional ED: Reports lethargy; Denies chills, fever(s), sweats or weight loss Eyes Eyes: Denies blurry vision, change in vision or diplopia ENT ENT ED: Denies rhinorrhea or sore throat Cardiovascular Cardiovascular: Denies chest pain, orthopnea or racing heartbeat Respiratory/Chest Respiratory/Chest: Denies cough, dyspnea, dyspnea on exertion, orthopnea or sputum Gastrointestinal Gastrointestinal: Denies abdominal pain, diarrhea, nausea or vomiting Genitourinary Genitourinary ED: Denies dysuria, hematuria or urinary frequency Musculoskeletal Musculoskeletal: Reports other Details: Right hip pain, right hand pain ; Denies arthralgias, back pain, myalgias or neck pain Integumentary Denies abscess, Abrasions or rash Neurologic Neurologic: Reports headache(s); Denies weakness Psychiatric Psychiatric: Denies anxiety, depression or suicidal thoughts Endocrine Endocrinology: Denies polydipsia, polyphagia or polyuria Hematologic/Lymphatic Hematologic/Lymphatic: Denies easy bleeding, easy bruising or lymphadenopathy Allergic/Immunologic Allergic/Immunologic ED: Denies mouth swelling, tongue swelling or urticaria EXAM Physical Exam Const Vital Signs: 01/01/23 11:30 01/01/23 11:41 Temperature 96.6 F L Temperature Source Temporal Pulse Rate 69 Respiratory Rate 16 Respiratory Effort Normal Respiratory Depth Normal Respiratory Pattern Normal Blood Pressure 147/73 H Blood Pressure Mean 97 Pulse Ox 99 Oxygen Delivery Method Room Air Room Air Positive well nourished and well developed General Appearance ED: well developed and NAD HEENT Reports TM's clear and moist mucous membranes normocephalic and atraumatic; Negative for trauma or tenderness Tympanic Membrane ED: Yes TM's clear Eyes PERRL and EOMs intact bilaterally General Eye ED: Negative for pale conjunctiva or scleral icterus Neck no lymphadenopathy, supple and no JVD General: Negative for tenderness Chest Wall inspection of chest normal and palpation of chest normal Chest: Negative for tenderness Resp normal respiratory effort and clear to auscultation bilaterally Effort and Inspection: Negative for respiratory distress or pain with movement Auscultation: Negative for rhonchi, wheezes or diminished lung sounds Cardio regular rate, regular rhythm, S1 normal heart sound, S2 normal heart sound and no murmurs Peripheral Pulses: pulses 2+ throughout GI normal to inspection, nondistended, normoactive bowel sounds, soft to palpation, non-tender, non-distended and no masses Back/Spine no CVA tenderness and no thoracic nor lumbar tenderness Extremity Extremity Narrative: Tenderness over the right hip. No obvious ecchymosis or bruising noted. No obvious deformity. Neurovascular intact distally. Right hand-patient has tenderness over the fifth metacarpal. Mild ecchymosis noted. No obvious deformity. Neurovascular intact distally. General Extremety ED: Negative for edema General Extremity: Negative for edema Neuro oriented x3, CN's II-XII intact bilaterally, no sensory deficits noted and gait normal Sensorium / Orientation: awake, alert, oriented to person, oriented to place and oriented to time Motor Exam: strength 5/5 throughout and strength abnormal Psych mental status grossly normal Skin no rashes or lesions noted and no wounds MDM MDM MDM Narrative Medical decision making narrative: Patient presents after mechanical fall. She did strike her head and is on Coumadin. CT scan of the brain without contrast obtained interpreted as no evidence of intracranial hemorrhage or skull fracture or acute process. X-rays of the right hip and pelvis as well as right hand obtained showed no evidence of fractures. This point she will be discharged to home and advised to follow-up with primary care physician as needed. Advised to return if worsening headache, vomiting, or condition should worsen anyway. CT scan of the brain without contrast obtained was unremarkable for no evidence of intracranial hemorrhage or skull fracture or acute traumatic process. X-rays of the right hip and pelvis as well as the right hand obtained were read by myself as no acute fractures and radiology in agreement. Patient advised to follow-up with her primary care physician as needed. She is to use Tylenol for discomfort as needed. Radiography Diagnostic Testing: Clinical Impression(s) from Imaging Studies Brain CT 01/01/23 11:55 IMPRESSION: Dystrophic calcifications basal ganglia bilaterally likely age related. Otherwise negative Brain CT without contrast. Electronically Signed: Alexys Young MD at 13:22 EDT , Hand X-Ray 01/01/23 12:20 IMPRESSION: Negative. Electronically Signed: Alexys Young MD at 13:26 EDT , Hip/Pelvis X-Ray 01/01/23 12:20 IMPRESSION: No evidence of displaced pelvic or hip fracture. Electronically Signed: Alexys Young MD at 13:27 EDT , Three-view x-ray of right hip and pelvis obtained interpreted by myself as no evidence of fracture or dislocation. She does have a prior femur aditya noted without evidence of periprosthetic fracture. Three-view x-rays of right hand obtained interpreted by myself as no evidence of fracture or dislocation. Discharge Plan Triage Chief Complaint: Fall ED Provider: Arben Wagner Dx/Rx/DC Orders Clinical Impression: Head injury, Contusion of hand, right, Contusion of hip, right Instructions: ED Hand Contusion, ED Contusion, Lower Extremity, ED Head Injury (Adult) Prescriptions: No Action (DME) Diltiazem 2% / Lidocaine 5% ointment (compound) Ointment See Rx Instructions .ROUTE Qty: 1 0RF Rx Instructions: As directed acetaminophen 325 MG tablet 1,000 mg PO QHS Patient Comments: pain control sotalol 80 MG tablet 120 mg PO BID 0RF loratadine 10 MG tablet 10 mg PO QHS 30 Days 0RF warfarin 2.5 MG tablet 5 mg PO DAILY losartan 25 MG tablet 12.5 mg PO DAILY glipizide 5 MG tablet 10 mg PO DAILY Patient Comments: TAKE 1 TABLET BY MOUTH TWICE DAILY Rx Instructions: 10 IN THE AM, 5 MG AT NIGHT phenazopyridine 200 MG tablet 200 mg PO BID PRN PRN (Reason: Pain) Qty: 10 0RF Hold Instructions: Pt has been DC'd Primary Care Provider: Alexys Tracy Referrals: Alexys Tracy MD [Primary Care Provider] - As Needed Disposition Disposition: Home, Self Care
--- NOTE | 2023-01-01 12:20 | RAD_ITS ---
INDICATION: fall EXAMINATION/TECHNIQUE: X-RAY - XR Hip Unilateral with Pelvis when performed; 2-3 Views COMPARISON: FINDINGS: PELVIC BONES: No displaced fracture, destructive or sclerotic lesions. Note that overlapping bowel shadows may however obscure fine detail. Sacroiliac joints are unremarkable. No widening of the pubic symphysis. HIPS: The articular structures are unremarkable. No displaced fracture seen in this frontal view. Intramedullary aditya is seen in the right femoral shaft consistent with prior open reduction internal fixation. SOFT TISSUES: No soft tissue swelling or gas. RAD/HIP, UNI W/ Pelvis 2-3 Views IMPRESSION: No evidence of displaced pelvic or hip fracture. Electronically Signed: Alexys Young MD at 13:27 EDT ,
--- NOTE | 2023-01-01 12:20 | RAD_ITS ---
INDICATION: fall EXAMINATION/TECHNIQUE: X-RAY - RIGHT XR Hand Min 3 Views 3 VIEWS COMPARISON: FINDINGS: SOFT TISSUES: No soft tissue swelling or gas. No radiopaque foreign body. BONES/JOINTS: No acute fracture or subluxation.. Normal alignment. Preservation of the joint space.. No sclerotic or destructive changes observed. RAD/Hand Min 3 Views IMPRESSION: Negative. Electronically Signed: Alexys Young MD at 13:26 EDT ,
== END 2023-01-01 13:54 | disposition home or self-care (01) ==
PROVIDERS: Emergency Provider Emergency Medicine; PCP Family Medicine; Visit Provider Emergency Medicine
DX: S09.90XA Unspecified injury of head, initial encounter (principal); I48.0 Paroxysmal atrial fibrillation; E11.9 Type 2 diabetes mellitus without complications; S60.221A Contusion of right hand, initial encounter; S70.01XA Contusion of right hip, initial encounter; I10 Essential (primary) hypertension; E78.5 Hyperlipidemia, unspecified; W01.190A Fall on same level from slipping, tripping and stumbling with subsequent striking against furniture, initial encounter; Z79.01 Long term (current) use of 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; Z96.641 Presence of right artificial hip joint; Z96.651 Presence of right artificial knee joint
CPT/HCPCS: 70450; 73130; 73502; 99282

== ENCOUNTER 2023-01-14 15:40 | Observation (INO) | payer MEDICARE, SELFPAY ==
[2023-01-14] VITALS (7 sets, daily range): BP systolic 111–182; BP diastolic 55–82; PULSE 63–83; RESP 14–20; TEMP 36–36.7; O2SAT 95–98; BMI 34.7; BMI 34.1
--- NOTE | 2023-01-14 16:13 | EKG12_ITS ---
Test Reason : CP/SOB/FALL Blood Pressure : / mmHG Vent. Rate : 073 BPM Atrial Rate : 073 BPM P-R Int : 204 ms QRS Dur : 106 ms QT Int : 426 ms P-R-T Axes : 080 -21 004 degrees QTc Int : 469 ms Normal sinus rhythm Incomplete right bundle branch block Moderate voltage criteria for LVH, may be normal variant ( R in aVL , Aryan product ) Borderline ECG Confirmed by BARBARA BRYANT, RADHA ([id number]), editor house organ ADA LINTON ([id number]) on 01/17/2023 8:30:28 AM Referred By: DAVONTE/MONIE Confirmed By:ROSA MARIA JIMENEZ MD
--- NOTE | 2023-01-14 16:13 | CT_ITS ---
INDICATION: Trauma, fall, head injury with dizziness EXAMINATION: CT BRAIN - CT Head or Brain W/O Contrast Injection TECHNIQUE: Multiple axial images were obtained of the head without intravenous contrast. A radiation dose optimization technique was used for this scan. IV Contrast dosage and agent: None. COMPARISON: 01/01/2023 FINDINGS: BRAIN PARENCHYMA: No intra- or extra-axial hemorrhage. No evidence of acute infarct. No intracranial mass or mass effect. Stable idiopathic calcifications in the basal ganglia. Posterior fossa structures are unremarkable. CSF SPACES: Stable. No hydrocephalus. Basal cisterns are patent. CALVARIUM, SKULL BASE, PARANASAL SINUSES AND MASTOID AIR CELLS: Clear. No discrete lytic or blastic abnormalities. ORBITS: Both globes, extraocular muscles, optic nerves and retrobulbar fat appear unremarkable. CT/Brain/Head without Contrast IMPRESSION: No acute intracranial findings. Electronically Signed: Randall Hazel MD at 17:06 EST ,
--- NOTE | 2023-01-14 16:16 | EX.ED.DYSGE1 ---
HPI History of Present Illness Chief Complaint: Dizziness Informant: patient Narrative Narrative: Patient is 72-year-old female with history of proximal atrial fibrillation (on Coumadin and sotalol), type 2 diabetes mellitus, GERD and hypertension presenting from the [place] after a fall/syncopal episode. Apparently states she was visiting her sister at [place]. Patient lives at home with her . She was moving a chair when she somehow fell. She is not sure if she passed out or not. She notes she did hit the right side of her head/face. Patient states she had multiple falls over the past week. Week ago she had a fall and hit her head in the back. She did go to the ER to have this evaluated. Review shows that patient was seen on 01/01 for a fall after losing her balance. CT of the brain at that time did not show any acute process. Patient notes that she has been having issues of dizziness.Notes that she is having ongoing issues with her balance and is supposed to use either a cane or a walker. She does not use any assistive device when she fell today. She is concerned that some of her symptoms might be a side effect of sotalol. She notes her PCP is currently managing of her cardiac issues because her most recent heel seat flap stapler within the clinic moved and she has not followed up with anyone since. Fever or chills. She is little nauseous today. She states while she was on her way to the [place] today she suddenly felt a pain in her left chest which she gets sometimes and attributes to gas. She then felt a weird sensation in her head like she might pass out but did not. She denies any new swelling of her legs, fever, chills, urinary symptoms or other GI symptoms. No recent illnesses. [facility] Medical History Arthritis Asthma Chronic anemia CVA (cerebral vascular accident) Diabetes Hemorrhoids HLD (hyperlipidemia) Hypertension Obesity PAF (paroxysmal atrial fibrillation) Rectal pain VTE (venous thromboembolism) Home Medications acetaminophen 325 mg tablet 1,000 mg PO QHS 06/26/16 [History Last Taken 06/29/16 1000 mg] loratadine 10 mg tablet 10 mg PO QHS 30 days 07/23/16 [Rx Last Taken Unknown] sotalol 80 mg tablet 120 mg (1.5 x 80 mg) PO BID 07/23/16 [Rx Last Taken Unknown] losartan 25 mg tablet 12.5 mg PO DAILY 01/10/17 [History Last Taken Unknown] warfarin 2.5 mg tablet 5 mg PO SUMOWEFR 01/10/17 [History Last Taken Unknown] glipizide 5 mg tablet 5 mg PO BID 07/23/18 [History Last Taken Unknown] phenazopyridine 200 mg tablet 200 mg PO BID PRN PRN Pain #10 tabs 06/24/19 [Rx Last Taken Unknown] Diltiazem 2% / Lidocaine 5% ointment (compound) #1 ea 10/15/22 [Rx Last Taken Unknown] losartan 50 mg-hydrochlorothiazide 12.5 mg tablet 1 tab PO DAILY 01/14/23 [History Last Taken Unknown] rosuvastatin 10 mg tablet 10 mg PO DAILY 01/14/23 [History Last Taken Unknown] warfarin 5 mg tablet 2.5 mg PO TUTHSA 01/14/23 [History Last Taken Unknown] Allergy/AdvReac Type Severity Reaction Status Date / Time Sulfa (Sulfonamide AdvReac Unknown Diarrhea Verified 01/14/23 15:41 Antibiotics) celecoxib [From Celebrex] AdvReac Nausea/Vom/ Verified 01/14/23 15:41 Diarrhea fluoxetine HCl [From Prozac] AdvReac Other Verified 01/14/23 15:41 isosorbide AdvReac Other Verified 01/14/23 15:41 metformin AdvReac Nausea/Vom/ Verified 01/14/23 15:41 Diarrhea Family History Mother CVA (cerebral vascular accident) Diabetes Heart disease Father CVA (cerebral vascular accident) Diabetes Heart disease Surgical History History of appendectomy History of cholecystectomy History of hysterectomy History of knee replacement History of shoulder surgery Social History household members: spouse Smoking Status: Never smoker alcohol intake: never substance use type: does not use ROS ROS ED Constitutional Constitutional ED: Denies chills, fever(s) or sweats Eyes Eyes: Denies change in vision ENT ENT ED: Denies rhinorrhea or sore throat Cardiovascular Cardiovascular: Reports chest pain; Denies palpitations Respiratory/Chest Respiratory/Chest: Denies cough, dyspnea, dyspnea on exertion or sputum Gastrointestinal Gastrointestinal: Reports nausea; Denies abdominal pain, diarrhea, melena or vomiting Genitourinary Genitourinary ED: Denies dysuria or urinary frequency Musculoskeletal Musculoskeletal: Reports neck pain; Denies arthralgias or myalgias Integumentary Denies rash Neurologic Neurologic: Denies headache(s), paresthesias or weakness Psychiatric Psychiatric: Denies anxiety Hematologic/Lymphatic Hematologic/Lymphatic: Reports easy bleeding and easy bruising EXAM Physical Exam Const Vital Signs: 01/14/23 15:42 01/14/23 15:48 01/14/23 18:39 Temperature 96.8 F L Temperature Source Temporal Pulse Rate 75 Pulse Rate [Lying] 75 Pulse Rate [Sitting (for 1 minute prior to obtaining)] 80 Pulse Rate [Standing (for 1 minute prior to obtaining)] 83 Respiratory Rate 20 H Respiratory Effort Normal Non-Labored Blood Pressure 182/62 H Blood Pressure [Lying] 121/55 H Blood Pressure [Sitting (for 1 minute prior to obtaining)] 138/82 H Blood Pressure [Standing (for 1 minute prior to obtaining)] 111/74 Blood Pressure Mean 102 Blood Pressure Mean [Lying] 77 Blood Pressure Mean [Sitting (for 1 minute prior to obtaining)] 100 Blood Pressure Mean [Standing (for 1 minute prior to obtaining)] 86 Pulse Ox 98 Oxygen Delivery Method Room Air 01/14/23 19:33 01/14/23 21:29 01/14/23 22:00 Temperature Temperature Source Pulse Rate 70 76 Pulse Rate [Lying] 63 Pulse Rate [Sitting (for 1 minute prior to obtaining)] 69 Pulse Rate [Standing (for 1 minute prior to obtaining)] 75 Respiratory Rate 17 14 Respiratory Effort Blood Pressure 111/74 146/80 H Blood Pressure [Lying] 146/63 H Blood Pressure [Sitting (for 1 minute prior to obtaining)] 163/66 H Blood Pressure [Standing (for 1 minute prior to obtaining)] 146/80 H Blood Pressure Mean 86 102 Blood Pressure Mean [Lying] 90 Blood Pressure Mean [Sitting (for 1 minute prior to obtaining)] 98 Blood Pressure Mean [Standing (for 1 minute prior to obtaining)] 102 Pulse Ox 95 97 Oxygen Delivery Method Room Air Room Air 01/14/23 23:23 Temperature Temperature Source Pulse Rate 74 Pulse Rate [Lying] Pulse Rate [Sitting (for 1 minute prior to obtaining)] Pulse Rate [Standing (for 1 minute prior to obtaining)] Respiratory Rate 15 Respiratory Effort Blood Pressure 139/74 H Blood Pressure [Lying] Blood Pressure [Sitting (for 1 minute prior to obtaining)] Blood Pressure [Standing (for 1 minute prior to obtaining)] Blood Pressure Mean 95 Blood Pressure Mean [Lying] Blood Pressure Mean [Sitting (for 1 minute prior to obtaining)] Blood Pressure Mean [Standing (for 1 minute prior to obtaining)] Pulse Ox 97 Oxygen Delivery Method Positive well nourished and well developed General Appearance ED: well developed and NAD HEENT Reports TM's clear and moist mucous membranes Negative for trauma Tympanic Membrane ED: Yes TM's clear Eyes PERRL and EOMs intact bilaterally Neck supple and no JVD Neck Narrative: No midline tenderness Chest Wall inspection of chest normal and palpation of chest normal Resp normal respiratory effort and clear to auscultation bilaterally Cardio regular rate, regular rhythm and no murmurs GI normal to inspection, nondistended, normoactive bowel sounds and non-tender Back/Spine Cervical Spine: Negative for cervical spine tenderness Thoracic Spine / Upper Back: Negative for thoracic spinal tenderness Lumbar Spine / Lower Back: Negative for lumbar spinal tenderness Extremity normal to inspection General Extremety ED: Negative for edema or tenderness General Extremity: Negative for edema Neuro oriented x3 and CN's II-XII intact bilaterally Sensorium / Orientation: alert Motor Exam: Negative for general weakness Psych mental status grossly normal Skin Skin Narrative: abrasions to right fingers MDM MDM MDM Narrative Medical decision making narrative: Patient is evaluated for fall and dizziness. She had multiple falls over the past week or so. She is on Coumadin and high risk for injury associate with fall. CT of the brain and C-spine is obtained which does not show any acute trauma or intracranial hemorrhage. CBC is normal with no leukocytosis. INR is therapeutic at 2.2. Her BMP shows chronic CHANDAN with a creatinine of 1.17 which is actually slightly improved from her baseline. She is mildly hyperglycemic with a glucose of 188 but does have a history of diabetes mellitus. High since he troponin stable at 10 and 13 and EKG does not show acute ischemic changes. Orthostatics are obtained and are positive. Patient is symptomatic during them. She is given a liter of IV fluid and orthostatics were repeated. Blood pressure increases mildly but she still quite symptomatic during them and does drop her systolic blood pressure when she goes from sitting to standing.Due to her frequent falls and continued symptomatic dizziness despite IV fluids, patient is agreeable to be admitted. Urinalysis is consistent with mild contamination and not consistent with urinary tract infection. Patient is on multiple medications that can worsen her symptoms including sotalol, losartan as well as hydrochlorothiazide. She might benefit from medication management. She commented she has not seen a heel seat flap stapler in quite some time even though she is on sotalol and she also tells me that she has a history of flexion of carotid arteries wondering if that is related to her dizziness. This is relayed to admitting physician. Lab Data Attestation: I reviewed the patient's lab results. Labs: Laboratory Results - last 24 hr 01/14/23 01/14/23 01/14/23 15:50 17:47 18:55 WBC 8.6 RBC 4.45 Hgb 12.4 Hct 39.3 MCV 88.3 MCH 27.9 MCHC 31.6 L RDW Std Deviation 45.2 H RDW Coeff of R[place]hs[place] 14.1 Plt Count 252 MPV 11.7 Immature Gran % (Auto) 0.200 Neut % (Auto) 60.2 Lymph % (Auto) 28.4 [place] % (Auto) 8.3 Eos % (Auto) 2.1 Baso % (Auto) 0.8 Absolute Neuts (auto) 5.2 Absolute Lymphs (auto) 2.43 Nucleated RBC % 0 PT 24.4 H INR 2.2 Sodium 139 Potassium 4.2 Chloride 106 Carbon Dioxide 27.0 Anion Gap 6 BUN 29 H Creatinine 1.17 H Estim Creat Clear Calc 36.43 Est GFR (MDRD) Af Amer 58 L Est GFR (MDRD) Non-Af 48 L BUN/Creatinine Ratio 24.8 H Glucose 188 H Calcium 9.9 Troponin I High Sens 10 13 Urine Color Yellow Urine Clarity Sl. Cloudy Urine pH 6.5 Ur Specific [place] 1.010 Urine Protein Negative Urine Glucose (UA) 50 H Urine Ketones Negative Urine Occult Blood 10 H Urine Nitrite Negative Urine Bilirubin Negative Urine Urobilinogen Normal Ur Leukocyte Esterase 25 H Urine RBC 0-5 SEEN Urine WBC 0-5 SEEN Ur Squamous Epith Cells 0-5 SEEN Amorphous Sediment 1+ URATE Urine Bacteria 0 SEEN Urine Mucus 0 SEEN Radiography Chest X-Ray - ED: 2 View, Read by ED Physician, Read by Radiologist and No Acute Disease Diagnostic Testing: Clinical Impression(s) from Imaging Studies Brain CT 01/14/23 16:13 IMPRESSION: No acute intracranial findings. Electronically Signed: Randall Hazel MD at 17:06 EST , Cervical Spine CT 01/14/23 16:18 IMPRESSION: No acute fracture. Electronically Signed: Randall Hazel MD at 17:10 EST , Chest X-Ray 01/14/23 16:45 IMPRESSION: No radiographic evidence of acute cardiopulmonary disease. Electronically Signed: Randall Hazel MD at 17:11 EST , Rhythm Strip Rhythm Strip: Sinus Rhythm Rate: 73 Ectopy: None EKG Initial EKG: Attestation: I personally reviewed and interpreted this EKG as follows: Interpretation: Sinus Rhythm Comments: Sinus rhythm rate of 73 bpm Left axis deviation Incomplete right bundle cooper block Moderate voltage criteria for LVH Nonspecific T wave version lead III Prior EKG on 08/14/2022 patient now has a T wave version in lead III as well as LVH criteria Discharge Plan Dx/Rx/DC Orders Clinical Impression: Dizziness, Orthostatic hypotension, [facility] (current) use of 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, Multiple falls Disposition Disposition: Acute Care [facility] Discharge Date/Time: 01/14/23 23:28
--- NOTE | 2023-01-14 16:18 | CT_ITS ---
INDICATION: Trauma, fall EXAMINATION: CT CERVICAL SPINE - CT Spine Cervical W/O Contrast Injection TECHNIQUE: Helically acquired images were obtained of the cervical spine. 2D reformatted images were reviewed. A radiation dose optimization technique was used for this scan. IV Contrast dosage and agent: None. COMPARISON: None. FINDINGS: VERTEBRAE: No acute fracture. Diffuse bilateral facet joint hypertrophy. Normal alignment. Normal craniocervical junction and cervicothoracic junction. DISCS and SPINAL CANAL: Disc heights are preserved. No critical stenosis. NECK SOFT TISSUES: No prevertebral soft tissue swelling. LUNG APICES: Clear. CT/Spine Cervical without Contras IMPRESSION: No acute fracture. Electronically Signed: Randall Hazel MD at 17:10 [facility] ,
[2023-01-14 16:37] LABS: Absolute Lymphocyte Count 2.43 X10^3/uL (0.83-4.51); Absolute Neutrophil Count 5.2 X10^3/uL (2.0-7.7); Basophil# 0.07 X10^3/uL; Basophil% 0.8 % (0-1); Eosinophil# 0.18 X10^3/uL; Eosinophils% 2.1 % (0-5); Hematocrit 39.3 % (37-47); Hemoglobin 12.4 g/dL (12.0-15.0); Lymphocyte # 2.43 X10^3/ul (0.83-4.51); Lymphocyte % 28.4 % (19-41); Mean Corp Hgb Conc 31.6 g/dL (32-36); Mean Corpuscular Hgb 27.9 pg (27.0-32.0); Mean Corpuscular Volume 88.3 fL (81-99); Mean Platelet Vol. 11.7 fl (6.2-12.0); Monocyte# 0.71 X10^3/uL; Monocyte% 8.3 % (0-10); NRBC Flagged by Analyzer 0 % (0-5); Neutrophil # 5.16 X10^3/uL (2.7-7.7); Neutrophil % 60.2 % (47-70); Platelet Count 252 K/mm3 (150-450); RBC Distribution Width CV 14.1 % (11.6-14.6); RBC Distribution Width SD 45.2 fl (35.1-43.9); Red Blood Count 4.45 M/mm3 (4.2-5.4); White Blood Count 8.6 K/mm3 (4.4-11.0)
[2023-01-14 16:40] LABS: International Normalized Ratio 2.2; Prothrombin Time (Protime)PT. 24.4 SECONDS (11.7-14.9)
--- NOTE | 2023-01-14 16:45 | RAD_ITS ---
INDICATION: syncope EXAMINATION/TECHNIQUE: X-RAY - XR Chest 2 Views COMPARISON: 08/14/2022 FINDINGS: LINES/DEVICES: None. LUNGS: No consolidation, edema or effusion. No pneumothorax. MEDIASTINUM AND CARDIOVASCULAR STRUCTURES: Cardiac silhouette not enlarged. Central airways and mediastinal contour are unremarkable. BONES AND SOFT TISSUES: Unremarkable. RAD/Chest PA and Lateral IMPRESSION: No radiographic evidence of acute cardiopulmonary disease. Electronically Signed: Randall Hazel MD at 17:11 EST ,
[2023-01-14 16:48] LABS: Anion Gap 6 (5-15); BUN 29 mg/dL (7-18); BUN/Creat Ratio 24.8 RATIO (10-20); Calcium,Total 9.9 mg/dL (8.5-10.1); Chloride 106 mmol/L (98-107); Creatinine, Serum 1.17 mg/dL (0.55-1.02); EST Glomerular Filtration Rate 48 mL/min (>60); Est Glom Filt Rate - Afr Amer 58 mL/min (>60); Estimated Creatinine Clearance 36.43 ml/min; Glucose 188 mg/dL (74-106); Potassium 4.2 mmol/L (3.5-5.1); Sodium Level 139 mmol/L (136-145); Troponin-I HS (w/2H Reflex) 10 pg/mL (3.0-54.0)
[2023-01-14 18:23] LABS: Reflex Troponin-HS? (from REC) Y
[2023-01-14 18:45] LABS: Troponin-I HS 13 pg/mL (3.0-54.0)
[2023-01-14] MEDS: 0.9% Normal Saline (1000mL) 1,000 ML 999 ML IV (18:57)
[2023-01-14 19:00] LABS: Bacteria 0 SEEN /hpf (None Seen); Mucous, Urine 0 SEEN /hpf (<or=2+)
[2023-01-14 19:04] LABS: Color, Urine Yellow (Yellow); Glucose, Dipstick 50 mg/dl (Normal); Ketone-Dipstick Negative (Negative); Leukocyte Esterase-Dipstick 25 /ul (Negative); Nitrite-Dipstick Negative (Negative); Occult Blood-Urine 10 /ul (Negative); Protein-Dipstick Negative (Negative); Urine Bilirubin Dipstick Negative (Negative); Urine Clarity Sl. Cloudy (Clear); Urine Urobilinogen Normal (Normal); Urine pH 6.5 (5.0 - 8.0)
[2023-01-14 19:12] LABS: Amorphous Sediment 1+ URATE; Red Blood Cells-Urine 0-5 SEEN /hpf (0-5); Squamous Epithelial Cells - UA 0-5 SEEN /hpf (5-10); White Blood Cells 0-5 SEEN /hpf (0-5)
--- NOTE | 2023-01-14 23:27 | HP.PCM.HOS_ITS ---
HPI - General General Date of Admission: 01/14/23 Date of Service: 01/14/23 Chief Complaint: 5 falls in 7 days HPI Narrative SVEN WALKER, is a 72 F with a past medical history of hypertension, hyperlipidemia, diabetes mellitus type 2; of unknown control, obesity with BMI of 34.7 this admission, chronic anemia, asthma, striae of carotid artery stenosis with history of CVA, GERD and history of proximal atrial fibrillation; on Coumadin and sotalol (with no customer experience analyst for the past year) who presents to [facility] ER complaining of 5 falls in 7 days. Mrs. Walker reports her symptoms began in late December of this year when she was evaluated for a fall after losing her balance with a CT scan of the brain at that time showing no acute pathologic process. Since that time she has had problems with with intermittent dizziness and poor balance and is supposed to use a cane or a walker to ambulate. She now falls almost daily for the past week and earlier on 01/14/2023 she was moving a chair at home where she lives with her and somehow fell but she is not sure if she lost consciousness but she does admit to hitting the right side of her head and face. She is concerned that her symptoms may be due to side effects from her sotalol because her customer experience analyst left this area approximately 1 year ago and moved to his clinic closer to [place], [place] and she had seen a customer experience analyst at the [facility] but she did not like his 'flippant demeanor' and she has not followed up with an alternative customer experience analyst since that time. She denies fever, chills, vomiting, dysuria, diarrhea or constipation but she does admit to nausea and abdominal bloating due to gas today. She denies other recent illness and she claims that she has been on sotalol for the past 5 years and has had minimal heart racing on this agent and when her heart was flutter it only last 3 to 4 seconds. Her INR today is therapeutic at 2.2. In the ER she was noted to be orthostatic even after 1 L of fluid was given and there was concern about her continue pattern of falling while on Coumadin. She was then diagnosed with suspected adverse drug reaction to sotalol causing orthostasis and frequent falls and she was then admitted unde r observation status to the CDU for ongoing care for stay that is expected to be less than 48 hours. FORMERLY [facility], [facility]–1983 Medical History Arthritis Asthma Chronic anemia CVA (cerebral vascular accident) Diabetes Hemorrhoids HLD (hyperlipidemia) Hypertension Obesity PAF (paroxysmal atrial fibrillation) Rectal pain VTE (venous thromboembolism) Home Medications acetaminophen 325 mg tablet 1,000 mg PO QHS 06/26/16 [History Last Taken 06/29/16 1000 mg] loratadine 10 mg tablet 10 mg PO QHS 30 days 07/23/16 [Rx Last Taken Unknown] sotalol 80 mg tablet 120 mg (1.5 x 80 mg) PO BID 07/23/16 [Rx Last Taken Unknown] losartan 25 mg tablet 12.5 mg PO DAILY 01/10/17 [History Last Taken Unknown] warfarin 2.5 mg tablet 5 mg PO SUMOWEFR 01/10/17 [History Last Taken Unknown] glipizide 5 mg tablet 5 mg PO BID 07/23/18 [History Last Taken Unknown] phenazopyridine 200 mg tablet 200 mg PO BID PRN PRN Pain #10 tabs 06/24/19 [Rx Last Taken Unknown] Diltiazem 2% / Lidocaine 5% ointment (compound) #1 ea 10/15/22 [Rx Last Taken Unknown] losartan 50 mg-hydrochlorothiazide 12.5 mg tablet 1 tab PO DAILY 01/14/23 [History Last Taken Unknown] rosuvastatin 10 mg tablet 10 mg PO DAILY 01/14/23 [History Last Taken Unknown] warfarin 5 mg tablet 2.5 mg PO TUTHSA 01/14/23 [History Last Taken Unknown] Allergy/AdvReac Type Severity Reaction Status Date / Time Sulfa (Sulfonamide AdvReac Unknown Diarrhea Verified 01/14/23 15:41 Antibiotics) celecoxib [From Celebrex] AdvReac Nausea/Vom/ Verified 01/14/23 15:41 Diarrhea fluoxetine HCl [From Prozac] AdvReac Other Verified 01/14/23 15:41 isosorbide AdvReac Other Verified 01/14/23 15:41 metformin AdvReac Nausea/Vom/ Verified 01/14/23 15:41 Diarrhea Family History Mother CVA (cerebral vascular accident) Diabetes Heart disease Father CVA (cerebral vascular accident) Diabetes Heart disease Surgical History History of appendectomy History of cholecystectomy History of hysterectomy History of knee replacement History of shoulder surgery Social History household members: spouse Smoking Status: Never smoker alcohol intake: never substance use type: does not use ROS ROS Narrative Review of systems: Constitutional: Patient denies fevers chills or sweats Eyes: Patient denies changes in visio ENT: Patient denies runny nose or sore throat Cardiovascular: Patient admits to mild chest discomfort attributed to gas, she denies palpitations Respiratory: Patient denies shortness of breath or cough Gastrointestinal: Patient admits to nausea but denies abdominal pain diarrhea constipation melena or vomiting Genitourinary: Patient denies dysuria or hematuria Musculoskeletal: Patient admits to neck pain but denies arthralgias or myalgia Integumentary: Patient denies rash Neurologic: Patient denies headache or focal neurologic deficits Psychiatric: Patient denies anxiety Hematologic: Patient admits to easy be bleeding and bruising which have been attributed to Coumadin 14 point review systems otherwise negative except for positives noted above in HPI. Vital Signs Vital Signs Vital Signs: 01/14/23 15:42 01/14/23 15:48 01/14/23 18:39 Temperature 96.8 F L Temperature Source Temporal Pulse Rate 75 Pulse Rate [Lying] 75 Pulse Rate [Sitting (for 1 minute prior to obtaining)] 80 Pulse Rate [Standing (for 1 minute prior to obtaining)] 83 Respiratory Rate 20 H Respiratory Effort Normal Non-Labored Blood Pressure 182/62 H Blood Pressure [Lying] 121/55 H Blood Pressure [Sitting (for 1 minute prior to obtaining)] 138/82 H Blood Pressure [Standing (for 1 minute prior to obtaining)] 111/74 Blood Pressure Mean 102 Blood Pressure Mean [Lying] 77 Blood Pressure Mean [Sitting (for 1 minute prior to obtaining)] 100 Blood Pressure Mean [Standing (for 1 minute prior to obtaining)] 86 Pulse Ox 98 Oxygen Delivery Method Room Air 01/14/23 19:33 01/14/23 21:29 01/14/23 22:00 Temperature Temperature Source Pulse Rate 70 76 Pulse Rate [Lying] 63 Pulse Rate [Sitting (for 1 minute prior to obtaining)] 69 Pulse Rate [Standing (for 1 minute prior to obtaining)] 75 Respiratory Rate 17 14 Respiratory Effort Blood Pressure 111/74 146/80 H Blood Pressure [Lying] 146/63 H Blood Pressure [Sitting (for 1 minute prior to obtaining)] 163/66 H Blood Pressure [Standing (for 1 minute prior to obtaining)] 146/80 H Blood Pressure Mean 86 102 Blood Pressure Mean [Lying] 90 Blood Pressure Mean [Sitting (for 1 minute prior to obtaining)] 98 Blood Pressure Mean [Standing (for 1 minute prior to obtaining)] 102 Pulse Ox 95 97 Oxygen Delivery Method Room Air Room Air 01/14/23 23:23 Temperature Temperature Source Pulse Rate 74 Pulse Rate [Lying] Pulse Rate [Sitting (for 1 minute prior to obtaining)] Pulse Rate [Standing (for 1 minute prior to obtaining)] Respiratory Rate 15 Respiratory Effort Blood Pressure 139/74 H Blood Pressure [Lying] Blood Pressure [Sitting (for 1 minute prior to obtaining)] Blood Pressure [Standing (for 1 minute prior to obtaining)] Blood Pressure Mean 95 Blood Pressure Mean [Lying] Blood Pressure Mean [Sitting (for 1 minute prior to obtaining)] Blood Pressure Mean [Standing (for 1 minute prior to obtaining)] Pulse Ox 97 Oxygen Delivery Method Weight Weight: 202 lb 2.622 oz Body Mass Index (BMI) 34.7 Physical Exam Const alert, oriented x3, no apparent distress, average body habitus, healthy appearing and well nourished General Appearance: cooperative HEENT normocephalic, hearing grossly normal bilaterally, moist oral mucous membranes and oropharynx normal HEENT Narrative: Patient has a small abrasion on the right side of her face and head. Eyes PERRL, EOMs intact bilaterally and conjunctivae normal Neck no lymphadenopathy, supple and no JVD Resp normal respiratory effort, no retractions, no use of accessory muscles and clear to auscultation bilaterally Cardio regular rate and regular rhythm GI normal to inspection, nondistended, normoactive bowel sounds, soft to palpation and non-tender Extremity normal to inspection and full ROM Neuro oriented x3, CN's II-XII intact bilaterally, moves all extremities and no focal motor deficits Sensorium / Orientation: awake, alert, oriented to person, oriented to place and oriented to time Speech: speech normal Motor Exam: strength 5/5 throughout Psych affect normal Results Medical Records Data Attestation: I reviewed the patient's medical records Lab / Micro Data Attestation: I reviewed the patient's lab results. 01/15/23 05:43 01/14/23 15:50 Labs: Laboratory Results - last 24 hr 01/14/23 15:50: WBC 8.6, RBC 4.45, Hgb 12.4, Hct 39.3, MCV 88.3, MCH 27.9, MCHC 31.6 L, RDW Std Deviation 45.2 H, RDW Coeff of Rukhsana 14.1, Plt Count 252, MPV 11.7, Immature Gran % (Auto) 0.200, Neut % (Auto) 60.2, Lymph % (Auto) 28.4, [place] % (Auto) 8.3, Eos % (Auto) 2.1, Baso % (Auto) 0.8, Absolute Neuts (auto) 5.2, Absolute Lymphs (auto) 2.43, Nucleated RBC % 0, PT 24.4 H, INR 2.2, Sodium 139, Potassium 4.2, Chloride 106, Carbon Dioxide 27.0, Anion Gap 6, BUN 29 H, Creatinine 1.17 H, Estim Creat Clear Calc 36.43, Est GFR (MDRD) Af Amer 58 L, Est GFR (MDRD) Non-Af 48 L, BUN/Creatinine Ratio 24.8 H, Glucose 188 H, Calcium 9.9, Troponin I High Sens 10 01/14/23 17:47: Troponin I High Sens 13 01/14/23 18:55: Urine Color Yellow, Urine Clarity Sl. Cloudy, Urine pH 6.5, Ur Specific [place] 1.010, Urine Protein Negative, Urine Glucose (UA) 50 H, Urine Ketones Negative, Urine Occult Blood 10 H, Urine Nitrite Negative, Urine Bilirubin Negative, Urine Urobilinogen Normal, Ur Leukocyte Esterase 25 H, Urine RBC 0-5 SEEN, Urine WBC 0-5 SEEN, Ur Squamous Epith Cells 0-5 SEEN, Amorphous Sediment 1+ URATE, Urine Bacteria 0 SEEN, Urine Mucus 0 SEEN Micro: [facility] [address] [place] [address] Brain/Head without Contrast MR#: [id number] Acct: [id number] Name: SVEN WALKER Vickie Rep #: [id number] : 1950 F 72 From: Randall Hazel MD PCP: Dr. Alexys Tracy MD Status: REG ER Study: Brain/Head without Contrast Date of Exam: 01/14/23 Exam# [id number] Ordering Dr: Kelsi Brower DO INDICATION: Trauma, fall, head injury with dizziness EXAMINATION: CT BRAIN - CT Head or Brain W/O Contrast Injection TECHNIQUE: Multiple axial images were obtained of the head without intravenous contrast. A radiation dose optimization technique was used for this scan. IV Contrast dosage and agent: None. COMPARISON: 01/01/2023 FINDINGS: BRAIN PARENCHYMA: No intra- or extra-axial hemorrhage. No evidence of acute infarct. No intracranial mass or mass effect. Stable idiopathic calcifications in the basal ganglia. Posterior fossa structures are unremarkable. CSF SPACES: Stable. No hydrocephalus. Basal cisterns are patent. CALVARIUM, SKULL BASE, PARANASAL SINUSES AND MASTOID AIR CELLS: Clear. No discrete lytic or blastic abnormalities. ORBITS: Both globes, extraocular muscles, optic nerves and retrobulbar fat appear unremarkable. CT/Brain/Head without Contrast IMPRESSION: No acute intracranial findings. Electronically Signed: Randall Hazel MD at 17:06 EST , CC: Dr. Kelsi Brower DO; Dr. Alexys Tracy MD ~ Clinical Data Programmer: Signed [facility] [address] [place] [id number] Chest PA and Lateral MR#: [id number] Acct: [id number] Name: SVEN WALKER Rep #: [id number] : 1950 F 72 From: Randall Hazel MD PCP: Dr. Alexys Tracy MD Status: REG ER Study: Chest PA and Lateral Date of Exam: 01/14/23 Exam# [id number] Ordering Dr: Kelsi Brower DO INDICATION: syncope EXAMINATION/TECHNIQUE: X-RAY - XR Chest 2 Views COMPARISON: 08/14/2022 FINDINGS: LINES/DEVICES: None. LUNGS: No consolidation, edema or effusion. No pneumothorax. MEDIASTINUM AND CARDIOVASCULAR STRUCTURES: Cardiac silhouette not enlarged. Central airways and mediastinal contour are unremarkable. BONES AND SOFT TISSUES: Unremarkable. RAD/Chest PA and Lateral IMPRESSION: No radiographic evidence of acute cardiopulmonary disease. Electronically Signed: Randall Hazel MD at 17:11 EST , CC: Dr. Kelsi Brower DO; Dr. Alexys Tracy MD ~ Clinical Data Programmer Signed [facility] [address] [place] [id number] Spine Cervical without Contras MR#: [id number] Acct: [id number] Name: SVEN WALKER Rep #: [id number] : 1950 F 72 From: Randall Hazel MD PCP: Dr. Alexys Tracy MD Status: REG ER Study: Spine Cervical without Contras Date of Exam: 01/14/23 Exam# [id number] Ordering Dr: Kelsi Brower DO INDICATION: Trauma, fall EXAMINATION: CT CERVICAL SPINE - CT Spine Cervical W/O Contrast Injection TECHNIQUE: Helically acquired images were obtained of the cervical spine. 2D reformatted images were reviewed. A radiation dose optimization technique was used for this scan. IV Contrast dosage and agent: None. COMPARISON: None. FINDINGS: VERTEBRAE: No acute fracture. Diffuse bilateral facet joint hypertrophy. Normal alignment. Normal craniocervical junction and cervicothoracic junction. DISCS and SPINAL CANAL: Disc heights are preserved. No critical stenosis. NECK SOFT TISSUES: No prevertebral soft tissue swelling. LUNG APICES: Clear. CT/Spine Cervical without Contras IMPRESSION: No acute fracture. Electronically Signed: Randall Hazel MD at 17:10 EST , CC: Dr. Kelsi Brower DO; Dr. Alexys Tracy MD ~ Signed Rhythm Strip Rhythm Strip: Sinus Rhythm Rate: 73 Ectopy: None Radiology Impression Brain CT 01/14/23 16:13 IMPRESSION: No acute intracranial findings. Electronically Signed: Randall Hazel MD at 17:06 EST , Cervical Spine CT 01/14/23 16:18 IMPRESSION: No acute fracture. Electronically Signed: Randall Hazel MD at 17:10 EST , Chest X-Ray 01/14/23 16:45 IMPRESSION: No radiographic evidence of acute cardiopulmonary disease. Electronically Signed: Randall Hazel MD at 17:11 EST , Assessment & Plan Assessment/Plan (1) Orthostatic hypotension: (2) Adverse drug reaction: QUALIFIERS: Encounter type: initial encounter Qualified Code(s): T50.905A - Adverse effect of unspecified drugs, medicaments and biological substances, initial encounter PLAN: Plan 1. Orthostatic hypotension with frequent falls - Admit to CDU under observation status. Given normal saline IV fluids and continue supportive care. PT/OT and case management consult without appreciated in advance. 2. Adverse drug reaction to sotalol use to treat paroxysmal atrial fibrillation likely causing #1 - This agent will be discontinued. Finally, we will consult customer experience analyst on-call to evaluate this patient in the a.m. for recommendations regarding an alternative agent and to give her an opportunity to follow-up with someone that can manage her case with help appreciated in advance. 3. History of carotid stenosis with previous CVA - Check carotid duplex to evaluate for stenosis in case this is causing or contributing to #1. Check echocardiogram to evaluate left ventricular ejection fraction and assess for any potential aortic stenosis. 4. Essential hypertension - Hold antihypertensives until orthostatic hypotension is resolved. 5. Hyperlipidemia - Resume statin and check lipid profile. 6. Diabetes mellitus type 2; of unknown control - ADA diet. Fingerstick blood sugars before every meal and at bedtime plus sliding scale insulin. Check hemoglobin A1c to evaluate quality of diabetic control. 7. Obesity with a BMI of 34.1 this admission - Weight loss will be recommended. 8. DVT prophylaxis - Patient is already on Coumadin which will be continued at this time with a therapeutic INR of 2.2 present on admission. Total time: Approximately 45 minutes. Charges/Coding Visit Charges OBSV E&M: 32644 Observ/hosp same date L1
[2023-01-15] MEDS: 0.9% Normal Saline (1000mL) 1,000 ML 125 ML IV ×2 (00:45→09:25)
[2023-01-15] MEDS: 0.9% Saline Lock 10 ML Syringe IV (00:48)
--- NOTE | 2023-01-15 03:37 | ECHOD_ITS ---
Reason For Study: CHF Procedure This was a 2D Doppler, Color Flow transthoracic echocardiogram. Exam performed portable in patient room. Left Ventricle Normal LV size. The estimated ejection fraction is 65 %. Unable to assess diastolic dysfunction. No regional wall motion abnormalities noted. Right Ventricle Normal RV size. Normal systolic function. Atria Normal left atrium. Normal right atrium. No doppler evidence for ASD. Mitral Valve There is moderate to severe mitral annular calcification. There is no mitral valve stenosis. No mitral valve insufficiency. Tricuspid Valve There is no tricuspid stenosis. Trivial tricuspid valve insufficiency. Unable to estimate RV systolic pressure due to insufficient tricuspid regurgitant envelope. Aortic Valve Trisinus/trileaflet aortic valve. Aortic sclerosis, no stenosis. No aortic valve insufficiency. Pulmonic Valve There is no pulmonic valvular stenosis. Trivial pulmonic valve insufficiency. Great Vessels Normal aortic root. Pericardium/Pleural No pericardial effusion. MMode/2D Measurements & Calculations LVIDd: 3.9 cm IVSd: 1.2 cm Ao root diam: 3.1 cm LVIDs: 2.1 cm LVPWd: 1.1 cm RVDd: 2.8 cm FS: 45.0 % LAV(MOD-bp): 50.9 ml LVAd ap4: 22.7 cm2 SV(MOD-sp4): 40.3 ml LAV(MOD-bp) Indexed: 25.9 ml/m2 LVLd ap4: 7.3 cm LAV(MOD-sp2): 53.0 ml EDV(MOD-sp4): 58.1 ml LAV(MOD-sp4): 48.1 ml EDV(sp4-el): 59.6 ml LVAs ap4: 10.9 cm2 LVLs ap4: 5.6 cm ESV(MOD-sp4): 17.8 ml ESV(sp4-el): 18.0 ml EF(MOD-sp4): 69.3 % EF(sp4-el): 69.7 % SV(sp4-el): 41.5 ml LA A4 area: 18.0 cm2 LA dimension(2D): 4.0 cm RA A4 area: 11.1 cm2 TAPSE: 2.7 cm Time Measurements MV dec time: 0.21 sec Doppler Measurements & Calculations MV E max iker: 121.3 cm/sec Lat Peak E' Iker: 6.9 cm/sec Med Peak E' Iker: 7.0 cm/sec MV A max iker: 140.0 cm/sec E/E' lat: 17.5 E/E' med: 17.3 MV E/A: 0.87 MV V2 max: 163.8 cm/sec Ao V2 max: 143.4 cm/sec MV max P.7 mmHg MV dec slope: 575.7 cm/sec2 Ao max P.2 mmHg MV V2 mean: 104.8 cm/sec Ao V2 mean: 97.7 cm/sec MV mean P.8 mmHg Ao mean P.2 mmHg MV V2 VTI: 50.8 cm Ao V2 VTI: 33.1 cm AV (velocity ratio): 0.83 LV V1 max: 120.8 cm/sec PA V2 max: 112.7 cm/sec PI end-d iker: 129.0 cm/sec LV V1 max P.8 mmHg LV V1 mean P.1 mmHg LV V1 mean: 84.0 cm/sec LV V1 VTI: 27.5 cm TR max iker: 280.3 cm/sec TR max P.4 mmHg ECHO/Echo Complete Interpretation Summary The estimated ejection fraction is 65 %. Unable to assess diastolic dysfunction. Ordering Physician: [place] Referring Physician: Alexys Tracy Performed By: Mckenna Canada RDCS, RVT
[2023-01-15 03:42] VITALS: BP 128/56; PULSE 66; RESP 16; TEMP 36.5; O2SAT 97
[2023-01-15 06:00] VITALS: BMI 34.0
[2023-01-15 06:20] LABS: Absolute Lymphocyte Count 2.55 X10^3/uL (0.83-4.51); Absolute Neutrophil Count 4.2 X10^3/uL (2.0-7.7); Basophil# 0.07 X10^3/uL; Basophil% 0.9 % (0-1); Eosinophil# 0.13 X10^3/uL; Eosinophils% 1.7 % (0-5); Hematocrit 33.4 % (37-47); Hemoglobin 10.5 g/dL (12.0-15.0); Lymphocyte # 2.55 X10^3/ul (0.83-4.51); Lymphocyte % 33.5 % (19-41); Mean Corp Hgb Conc 31.4 g/dL (32-36); Mean Corpuscular Hgb 27.9 pg (27.0-32.0); Mean Corpuscular Volume 88.6 fL (81-99); Mean Platelet Vol. 11.7 fl (6.2-12.0); Monocyte# 0.64 X10^3/uL; Monocyte% 8.4 % (0-10); NRBC Flagged by Analyzer 0 % (0-5); Neutrophil % 55.2 % (47-70); Platelet Count 198 K/mm3 (150-450); RBC Distribution Width CV 14.3 % (11.6-14.6); RBC Distribution Width SD 46.4 fl (35.1-43.9); Red Blood Count 3.77 M/mm3 (4.2-5.4); White Blood Count 7.6 K/mm3 (4.4-11.0)
[2023-01-15 06:58] LABS: International Normalized Ratio 2.1
[2023-01-15 08:07] LABS: Anion Gap 5 (5-15); BUN 23 mg/dL (7-18); BUN/Creat Ratio 23.8 RATIO (10-20); Chloride 113 mmol/L (98-107); Creatinine, Serum 0.97 mg/dL (0.55-1.02); EST Glomerular Filtration Rate 60 mL/min (>60); Est Glom Filt Rate - Afr Amer 72 mL/min (>60); Estimated Creatinine Clearance 43.94 ml/min; Glucose 124 mg/dL (74-106); Sodium Level 141 mmol/L (136-145)
[2023-01-15 08:36] LABS: Cholesterol 155 mg/dL (200); High Density Lipoprotein 47 mg/dL; Triglycerides 278 mg/dL; Very Low Density Lipoprotein 56 mg/dL (5-40)
[2023-01-15 09:12] VITALS: BP 137/60; PULSE 77; RESP 18; TEMP 37.1; O2SAT 95
[2023-01-15] MEDS: Losartan Potassium 25 MG Tablet 12.5 MG PO (09:17)
[2023-01-15] MEDS: glipiZIDE 5 MG Tablet 10 MG PO (09:17)
[2023-01-15] MEDS: Flu Vacc QS2023-24(65YR UP)/PF 240 MCG/0.7 ML Syringe IM (09:26)
--- NOTE | 2023-01-15 10:24 | PN.HOSP_ITS ---
Reason for Visit Reason for Visit: Diagnoses Orthostatic hypotension (01/14/23) Adverse effect of unspecified drugs, medicaments and biological substances, initial encounter (01/14/23) Objective Data Objective Data Vital Signs: Vital Signs Temp Pulse Resp BP Pulse Ox O2 Del Method 98.8 F 77 18 137/60 H 95 Room Air 01/15/23 09:12 01/15/23 09:12 01/15/23 09:12 01/15/23 09:12 01/15/23 09:12 01/15/23 09:12 Oxygen Delivery Method Room Air Weight: 198 lb 6.656 oz Body Mass Index (BMI) 34.0 Intake & Output: Intake and Output for Last 24 Hours 01/13/23 01/14/23 01/15/23 23:59 23:59 23:59 Intake Total 1120 / 1120 1060 / 1060 Balance 1120 / 1120 1060 / 1060 Lab / Micro Data 01/15/23 05:43 01/15/23 05:43 Labs: Laboratory Results - last 24 hr 01/14/23 15:50: WBC 8.6, RBC 4.45, Hgb 12.4, Hct 39.3, MCV 88.3, MCH 27.9, MCHC 31.6 L, RDW Std Deviation 45.2 H, RDW Coeff of Rukhsana 14.1, Plt Count 252, MPV 11.7, Immature Gran % (Auto) 0.200, Neut % (Auto) 60.2, Lymph % (Auto) 28.4, [place] % (Auto) 8.3, Eos % (Auto) 2.1, Baso % (Auto) 0.8, Absolute Neuts (auto) 5.2, Absolute Lymphs (auto) 2.43, Nucleated RBC % 0, PT 24.4 H, INR 2.2, Sodium 139, Potassium 4.2, Chloride 106, Carbon Dioxide 27.0, Anion Gap 6, BUN 29 H, Creatinine 1.17 H, Estim Creat Clear Calc 36.43, Est GFR (MDRD) Af Amer 58 L, Est GFR (MDRD) Non-Af 48 L, BUN/Creatinine Ratio 24.8 H, Glucose 188 H, Calcium 9.9, Troponin I High Sens 10 01/14/23 17:47: Troponin I High Sens 13 01/14/23 18:55: Urine Color Yellow, Urine Clarity Sl. Cloudy, Urine pH 6.5, Ur Specific [place] 1.010, Urine Protein Negative, Urine Glucose (UA) 50 H, Urine Ketones Negative, Urine Occult Blood 10 H, Urine Nitrite Negative, Urine Bilirubin Negative, Urine Urobilinogen Normal, Ur Leukocyte Esterase 25 H, Urine RBC 0-5 SEEN, Urine WBC 0-5 SEEN, Ur Squamous Epith Cells 0-5 SEEN, Amorphous S ediment 1+ URATE, Urine Bacteria 0 SEEN, Urine Mucus 0 SEEN 01/15/23 05:35: PT 24.0 H, INR 2.1 01/15/23 05:43: WBC 7.6, RBC 3.77 L, Hgb 10.5 L, Hct 33.4 L, MCV 88.6, MCH 27.9, MCHC 31.4 L, RDW Std Deviation 46.4 H, RDW Coeff of Rukhsana 14.3, Plt Count 198, MPV 11.7, Immature Gran % (Auto) 0.300, Neut % (Auto) 55.2, Lymph % (Auto) 33.5, [place] % (Auto) 8.4, Eos % (Auto) 1.7, Baso % (Auto) 0.9, Absolute Neuts (auto) 4.2, Absolute Lymphs (auto) 2.55, Nucleated RBC % 0, Sodium 141, Potassium 4.0, Chloride 113 H, Carbon Dioxide 23.0, Anion Gap 5, BUN 23 H, Creatinine 0.97, E stim Creat Clear Calc 43.94, Est GFR (MDRD) Af Amer 72, Est GFR (MDRD) Non-Af 60, BUN/Creatinine Ratio 23.8 H, Glucose 124 H, Calcium 9.0, Triglycerides 278 H , Cholesterol 155, LDL Cholesterol 52, VLDL Cholesterol 56 H, HDL Cholesterol 47, TSH 0.80 Radiography Diagnostic Testing: Radiology Impression Brain CT 01/14/23 16:13 IMPRESSION: No acute intracranial findings. Electronically Signed: Randall Hazel MD at 17:06 EST , Cervical Spine CT 01/14/23 16:18 IMPRESSION: No acute fracture. Electronically Signed: Randall Hazel MD at 17:10 EST , Chest X-Ray 01/14/23 16:45 IMPRESSION: No radiographic evidence of acute cardiopulmonary disease. Electronically Signed: Randall Hazel MD at 17:11 EST , Rhythm Strip Rhythm Strip: Sinus Rhythm Rate: 73 Ectopy: None Assessment & Plan Assessment/Plan (1) Orthostatic hypotension: (2) Adverse drug reaction: QUALIFIERS: Encounter type: initial encounter Qualified Code(s): T50.905A - Adverse effect of unspecified drugs, medicaments and biological substances, initial encounter PLAN: Plan 1. Orthostatic hypotension with frequent falls - Admit to CDU under observation status. Given normal saline IV fluids and continue supportive care. PT/OT and case management consult without appreciated in advance. 2. Adverse drug reaction to sotalol use to treat paroxysmal atrial fibrillation likely causing #1 - This agent will be discontinued. Finally, we will consult rigging up man on-call to evaluate this patient in the a.m. for recommendations regarding an alternative agent and to give her an opportunity to follow-up with someone that can manage her case with help appreciated in advance. 3. History of carotid stenosis with previous CVA - Check carotid duplex to evaluate for stenosis in case this is causing or contributing to #1. Check echocardiogram to evaluate left ventricular ejection fraction and assess for any potential aortic stenosis. 4. Essential hypertension - Hold antihypertensives until orthostatic hypotension is resolved. 5. Hyperlipidemia - Resume statin and check lipid profile. 6. Diabetes mellitus type 2; of unknown control - ADA diet. Fingerstick blood sugars before every meal and at bedtime plus sliding scale insulin. Check hemoglobin A1c to evaluate quality of diabetic control. 7. Obesity with a BMI of 34.1 this admission - Weight loss will be recommended. 8. DVT prophylaxis - Patient is already on Coumadin which will be continued at this time with a therapeutic INR of 2.2 present on admission. Total time: Approximately 45 minutes.
[2023-01-15 10:42] VITALS: BP 123/65; BP 126/63; BP 132/57; PULSE 65; PULSE 72; PULSE 87
--- NOTE | 2023-01-15 10:43 | DCINST_ITS ---
Discharge Instructions Diet Discharge Diet: No restrictions and 1800 Calorie Control Diet Activity Discharge Activity: Return to Normal Activity Weight Bearing Status: Weight bearing as tolerated Dressing / Incision Call your doctor if you observe: Fever of 101 or Higher, Coldness, Increased Pain, Numbness or Tingling, Change in Color, Inability to urinate, Inability to have a bowel movement, Using more than 1 pad per hour, Shortness of breath, Dizziness, Fainting spells, Swelling in the ankles, Chest pain, Prolonged hiccupping, Increased palpitations (irregular heartbeat) and Calf discomfort Follow Up Care When: IN 2 WEEKS Test Results: Test results from this visit will be discussed in further detail at your follow- up appointment, if applicable. Discharge Plan Admission Admit Date/Time: 01/14/23 23:47 Primary Reason for Your Visit: Fall/orthostatic hypotension. Attending Provider: Maykel Sloan Primary Care Provider: Alexys Tracy Consulting Providers: Low Patino; [place] Discharge Orders/Prescriptions Prescriptions: New metoprolol succinate [Toprol XL] 25 mg tablet extended release 24 hr 12.5 mg PO DAILY 60 Days Qty: 30 1RF Rx Instructions: Hold for heart less than 60 or systolic blood pressure less than 100 mmHg. losartan 25 mg Tablet 12.5 mg PO DAILY Qty: 30 2RF Rx Instructions: Hold for SBP less than 130 mmHg Continued (DME) Diltiazem 2% / Lidocaine 5% ointment (compound) Ointment See Rx Instructions .ROUTE Qty: 1 0RF Rx Instructions: As directed acetaminophen 325 MG tablet 1,000 mg PO QHS Patient Comments: pain control loratadine 10 MG tablet 10 mg PO QHS 30 Days 0RF warfarin 2.5 MG tablet 5 mg PO SUMOWEFR losartan 25 MG tablet 12.5 mg PO DAILY glipizide 5 MG tablet 5 mg PO BID Patient Comments: TAKE 1 TABLET BY MOUTH TWICE DAILY Rx Instructions: 10 IN THE AM, 5 MG AT NIGHT phenazopyridine 200 MG tablet 200 mg PO BID PRN PRN (Reason: Pain) Qty: 10 0RF Hold Instructions: Pt has been DC'd warfarin 5 mg tablet 2.5 mg PO TUTHSA rosuvastatin 10 mg tablet 10 mg PO DAILY Discontinued sotalol 80 MG tablet 120 mg PO BID 0RF losartan-hydrochlorothiazide 50-12.5 mg tablet 1 tab PO DAILY Referrals / Follow Up: Low Patino MD [Med Staff - Active Staff] - Within 1 Month Alexys Tracy MD [Primary Care Provider] - Within 2 Weeks Disposition Disposition (needs filled in before D/C Order can be placed): Home, Self Care
--- NOTE | 2023-01-15 10:43 | DS.PCM_ITS ---
Providers Date of Admission: 01/14/23 Date of Discharge: 01/15/23 Primary Care Physician: Dr. Alexys Tracy MD Consultations 01/14/23 23:54 Consult: Cardiology Routine Consulting Provider: Low Patino Reason for Consult: Adverse drug reaction to sotalol with orthostatic hypotension frequent fall EMERGENT Consult: No MD Notified: Yes Date Notified: 01/15/23 Time Notified: 06:41 Method of Notification: Text Reason For Visit: ORTHOSTATIC HYPOTENSION D/T ADVERSE DRUG REACTION Diagnosis Discharge Diagnosis (1) Orthostatic hypotension: Status: Acute Code(s): I95.1 - Orthostatic hypotension (2) Adverse drug reaction: Status: Acute Code(s): T50.905A - Adverse effect of unspecified drugs, medicaments and biological substances, initial encounter Qualifiers: Encounter type: initial encounter Qualified Code(s): T50.905A - Adverse effect of unspecified drugs, medicaments and biological substances, initial encounter Plan 1. Orthostatic hypotension with frequent falls - Admit to CDU under observation status. Given normal saline IV fluids and continue supportive care. PT/OT and case management consult without appreciated in advance. 01/15: Patient was well resuscitated with IV fluid. Repeat orthostatic vitals were negative. Last few blood pressure 137/68, 132/57. Patient was evaluated by jewel bearing maker. 2D echo was done. 2D echo shows EF 65%, no RWMA. No Doppler evidence for ASD. Moderate to severe mitral annular calcification but no sig nificant valvular stenosis or regurgitation. Community Engagement Coordinator recommended to discontinue sotalol and HCTZ. Losartan 12.5 mg daily and metoprolol succinate 12.5 mg daily started with holding parameters. Patient was educated to hold losartan and metoprolol medications as per holding parameter and sit for half an hour after taking medications and avoid sudden change in position/posture. Follow-up with Dr. Patino in clinic. 2. Adverse drug reaction to sotalol use to treat paroxysmal atrial fibrillation likely causing #1 -patient on warfarin INR therapeutic. Sotalol discontinued. HCTZ discontinued as patient was dehydrated. 3. History of carotid stenosis with previous CVA: Fasting profile shows triglyceride 278, VLDL 56. TSH normal. Patient on rosuvastatin 10 mg daily, dose increased to 20 mg daily. Advised carotid Doppler as an outpatient. 4. Essential hypertension - Hold antihypertensives until orthostatic hypotension is resolved. 5. Hyperlipidemia - Resume statin and check lipid profile. 6. Diabetes mellitus type 2; of unknown control - ADA diet. Fingerstick blood sugars before every meal and at bedtime plus sliding scale insulin. 7. Obesity with a BMI of 34.1 this admission - Weight loss will be recommended. 8. DVT prophylaxis - Patient is already on Coumadin, continued at this time with a therapeutic INR of 2.2 present on admission. INR therapeutic. Discharge medication reconciliation done. Discharge follow-up instructions completed. Discharge process discussed with the patient and all questions were answered to patient's satisfaction. Follow with PCP in 1 to 2 weeks Total time spent, exact 35 minutes on discharge meds reconciliation, examinati on, coordination of care with nurses and ancillary staff, review of imaging and blood test and discussion with the patient on follow-up instructions. Medications at Discharge Home Medications acetaminophen 325 mg tablet 1,000 mg PO QHS 06/26/16 loratadine 10 mg tablet 10 mg PO QHS 30 days 07/23/16 losartan 25 mg tablet 12.5 mg PO DAILY 01/10/17 warfarin 2.5 mg tablet 5 mg PO SUMOWEFR 01/10/17 glipizide 5 mg tablet 5 mg PO BID 07/23/18 phenazopyridine 200 mg tablet 200 mg PO BID PRN PRN Pain #10 tabs 06/24/19 Diltiazem 2% / Lidocaine 5% ointment (compound) #1 ea 10/15/22 warfarin 5 mg tablet 2.5 mg PO TUTHSA 01/14/23 losartan 25 mg tablet 12.5 mg (1/2 x 25 mg) PO DAILY #30 tabs 01/15/23 metoprolol succinate 25 mg tablet,extended release 24 hr (Toprol XL) 12.5 mg (1/2 x 25 mg) PO DAILY 60 days #30 tabs 01/15/23 rosuvastatin 10 mg tablet 20 mg (2 x 10 mg) PO DAILY #30 tabs 01/15/23 Physical Exam Narrative The patient has a history of recurrent fall. He has degenerative arthritis of hips and knee joints. Had bilateral TKA. Patient is poor balance. PT and OT is done. Patient does not want to go to residential. Advised to follow with PCP and outpatient rehab. Physical exam General: Alert, Oriented x3, Cooperative HEENT: Atraumatic, PERRLA, EOMI, Normocephalic Oral: No Gingival or Mucosal Lesions/ Ulcerations Neck: Supple, No JVD, Negative Carotid Bruits Lungs: Air entry diminished in bilateral lung bases. No crepitation/rhonchi Cardiovascular: Regular rate, Regular Rhythm, Normal S1, Normal S2, No murmurs Abdomen: Bowel Sounds Present, Soft, Non Tender, Non-Distended : No renal angle tenderness. No suprapubic tenderness. Extremities: No edema, Capillary Refill Less than 3 Seconds Skin: No rashes, No breakdown Musculoskeletal: No Tenderness to Palpation of Joints or Extremities Neurological: Cranial nerves II-XII grossly intact, DTR 2+/4. No acute focal neurological deficit. Psych/Mental Status: Normal Affect, Appropriate. Weight / BMI Weight Weight: 198 lb 6.656 oz Body Mass Index (BMI) 34.0 ABG / Lab / Microbiology Data 01/15/23 05:43 01/15/23 05:43 Laboratory: Laboratory Results - last 24 hr 01/14/23 15:50: WBC 8.6, RBC 4.45, Hgb 12.4, Hct 39.3, MCV 88.3, MCH 27.9, MCHC 31.6 L, RDW Std Deviation 45.2 H, RDW Coeff of Rukhsana 14.1, Plt Count 252, MPV 11.7, Immature Gran % (Auto) 0.200, Neut % (Auto) 60.2, Lymph % (Auto) 28.4, [place] % (Auto) 8.3, Eos % (Auto) 2.1, Baso % (Auto) 0.8, Absolute Neuts (auto) 5.2, Absolute Lymphs (auto) 2.43, Nucleated RBC % 0, PT 24.4 H, INR 2.2, Sodium 139, Potassium 4.2, Chloride 106, Carbon Dioxide 27.0, Anion Gap 6, BUN 29 H, Creatinine 1.17 H, Estim Creat Clear Calc 36.43, Est GFR (MDRD) Af Amer 58 L, Est GFR (MDRD) Non-Af 48 L, BUN/Creatinine Ratio 24.8 H, Glucose 188 H, Calcium 9.9, Troponin I High Sens 10 01/14/23 17:47: Troponin I High Sens 13 01/14/23 18:55: Urine Color Yellow, Urine Clarity Sl. Cloudy, Urine pH 6.5, Ur Specific [place] 1.010, Urine Protein Negative, Urine Glucose (UA) 50 H, Urine Ketones Negative, Urine Occult Blood 10 H, Urine Nitrite Negative, Urine Bilirubin Negative, Urine Urobilinogen Normal, Ur Leukocyte Esterase 25 H, Urine RBC 0-5 SEEN, Urine WBC 0-5 SEEN, Ur Squamous Epith Cells 0-5 SEEN, Amorphous Sediment 1+ URATE, Urine Bacteria 0 SEEN, Urine Mucus 0 SEEN 01/15/23 05:35: PT 24.0 H, INR 2.1 01/15/23 05:43: WBC 7.6, RBC 3.77 L, Hgb 10.5 L, Hct 33.4 L, MCV 88.6, MCH 27.9, MCHC 31.4 L, RDW Std Deviation 46.4 H, RDW Coeff of [place]ukhs[place] 14.3, Plt Count 198, MPV 11.7, Immature Gran % (Auto) 0.300, Neut % (Auto) 55.2, Lymph % (Auto) 33.5, [place] % (Auto) 8.4, Eos % (Auto) 1.7, Baso % (Auto) 0.9, Absolute Neuts (auto) 4.2, Absolute Lymphs (auto) 2.55, Nucleated RBC % 0, Sodium 141, Potassium 4.0, Chloride 113 H, Carbon Dioxide 23.0, Anion Gap 5, BUN 23 H, Creatinine 0.97, Estim Creat Clear Calc 43.94, Est GFR (MDRD) Af Amer 72, Est GFR (MDRD) Non-Af 60, BUN/Creatinine Ratio 23.8 H, Glucose 124 H, Calcium 9.0, Triglycerides 278 H , Cholesterol 155, LDL Cholesterol 52, VLDL Cholesterol 56 H, HDL Cholesterol 47, TSH 0.80 Radiography Diagnostic Testing: Radiology Impression Brain CT 01/14/23 16:13 IMPRESSION: No acute intracranial findings. Electronically Signed: Randall Hazel MD at 17:06 EST , Cervical Spine CT 01/14/23 16:18 IMPRESSION: No acute fracture. Electronically Signed: Randall Hazel MD at 17:10 EST , Chest X-Ray 01/14/23 16:45 IMPRESSION: No radiographic evidence of acute cardiopulmonary disease. Electronically Signed: Randall Hazel MD at 17:11 EST , Meaningful Use Info Meaningful Use Diagnoses (Choose all that apply): None applicable Discharge Plan Admission Admit Date/Time: 01/14/23 23:47 Primary Reason for Your Visit: Fall/orthostatic hypotension. Attending Provider: Maykel Sloan Primary Care Provider: Alexys Tracy Consulting Providers: Low Patino; [place] Discharge Orders/Prescriptions Prescriptions: New metoprolol succinate [Toprol XL] 25 mg tablet extended release 24 hr 12.5 mg PO DAILY 60 Days Qty: 30 1RF Rx Instructions: Hold for heart less than 60 or systolic blood pressure less than 100 mmHg. losartan 25 mg Tablet 12.5 mg PO DAILY Qty: 30 2RF Rx Instructions: Hold for SBP less than 130 mmHg Continued (DME) Diltiazem 2% / Lidocaine 5% ointment (compound) Ointment See Rx Instructions .ROUTE Qty: 1 0RF Rx Instructions: As directed acetaminophen 325 MG tablet 1,000 mg PO QHS Patient Comments: pain control loratadine 10 MG tablet 10 mg PO QHS 30 Days 0RF warfarin 2.5 MG tablet 5 mg PO SUMOWEFR losartan 25 MG tablet 12.5 mg PO DAILY glipizide 5 MG tablet 5 mg PO BID Patient Comments: TAKE 1 TABLET BY MOUTH TWICE DAILY Rx Instructions: 10 IN THE AM, 5 MG AT NIGHT phenazopyridine 200 MG tablet 200 mg PO BID PRN PRN (Reason: Pain) Qty: 10 0RF Hold Instructions: Pt has been DC'd warfarin 5 mg tablet 2.5 mg PO TUTHSA Changed rosuvastatin 10 mg tablet 20 mg PO DAILY Qty: 30 0RF Discontinued sotalol 80 MG tablet 120 mg PO BID 0RF losartan-hydrochlorothiazide 50-12.5 mg tablet 1 tab PO DAILY Referrals / Follow Up: Low Patino MD [Med Staff - Active Staff] - Within 1 Month Alexys Tracy MD [Primary Care Provider] - Within 2 Weeks Disposition Disposition (needs filled in before D/C Order can be placed): Home, Self Care Charges/Coding Visit Charges Inpatient E&M: 00036 Disch Hosp >30min
--- NOTE | 2023-01-15 12:24 | PCM.CONS.C ---
Assessment & Plan Assessment/Plan (1) Orthostatic hypotension: PLAN: Agree with holding hydrochlorothiazide and sotalol. Advised patient to stay well-hydrated. Okay to discharge patient home on losartan 12.5 mg p.o. daily and metoprolol succinate 25 mg daily. Advised patient that if she has recurrence of orthostatic hypotension then she can hold the losartan. She does have a blood pressure cuff at home and will monitor her blood pressure at home as well. She can follow-up with cardiology as an outpatient. (2) PAF (paroxysmal atrial fibrillation): HPI Consult Data Date of Consult: 01/15/23 HPI Narrative Reason for Consultation: Dizziness HPI Narrative: SVEN ALEJO, is a 72 F who presents with dizziness. She was found to have orthostatic hypotension. She was given IV fluids and sotalol and hydrochlorothiazide were held. Patient's symptoms have improved overnight. Patient states that she has had dizziness for a very long time and over the last 2 weeks it has been particularly worse. Review of systems: All systems reviewed. All else is negative except that in HPI [facility] Medical History Arthritis Asthma Chronic anemia CVA (cerebral vascular accident) Diabetes Hemorrhoids HLD (hyperlipidemia) Hypertension Obesity PAF (paroxysmal atrial fibrillation) Rectal pain VTE (venous thromboembolism) Home Medications acetaminophen 325 mg tablet 1,000 mg PO QHS 06/26/16 [History Last Taken 06/29/16 1000 mg] loratadine 10 mg tablet 10 mg PO QHS 30 days 07/23/16 [Rx Last Taken Unknown] losartan 25 mg tablet 12.5 mg PO DAILY 01/10/17 [History Last Taken Unknown] warfarin 2.5 mg tablet 5 mg PO SUMOWEFR 01/10/17 [History Last Taken Unknown] glipizide 5 mg tablet 5 mg PO BID 07/23/18 [History Last Taken Unknown] phenazopyridine 200 mg tablet 200 mg PO BID PRN PRN Pain #10 tabs 06/24/19 [Rx Last Taken Unknown] Diltiazem 2% / Lidocaine 5% ointment (compound) #1 ea 10/15/22 [Rx Last Taken Unknown] warfarin 5 mg tablet 2.5 mg PO TUTHSA 01/14/23 [History Last Taken Unknown] losartan 25 mg tablet 12.5 mg (1/2 x 25 mg) PO DAILY #30 tabs 01/15/23 [Rx Last Taken Unknown] metoprolol succinate 25 mg tablet,extended release 24 hr (Toprol XL) 12.5 mg (1/2 x 25 mg) PO DAILY 60 days #30 tabs 01/15/23 [Rx Last Taken Unknown] rosuvastatin 10 mg tablet 20 mg (2 x 10 mg) PO DAILY #30 tabs 01/15/23 [Rx Last Taken Unknown] Allergy/AdvReac Type Severity Reaction Status Date / Time Sulfa (Sulfonamide AdvReac Unknown Diarrhea Verified 01/14/23 15:41 Antibiotics) celecoxib [From Celebrex] AdvReac Nausea/Vom/ Verified 01/14/23 15:41 Diarrhea fluoxetine HCl [From Prozac] AdvReac Other Verified 01/14/23 15:41 isosorbide AdvReac Other Verified 01/14/23 15:41 metformin AdvReac Nausea/Vom/ Verified 01/14/23 15:41 Diarrhea Family History Mother CVA (cerebral vascular accident) Diabetes Heart disease Father CVA (cerebral vascular accident) Diabetes Heart disease Surgical History History of appendectomy History of cholecystectomy History of hysterectomy History of knee replacement History of shoulder surgery Social History household members: spouse Smoking Status: Never smoker alcohol intake: never substance use type: does not use Physical Exam Const alert and oriented x3 HEENT normocephalic Eyes no scleral icterus Resp normal respiratory effort Psych mental status grossly normal Risk Stratification Risk Stratification Applicable: No Charges/Coding Visit Charges Inpatient E&M: 33998 Init Hosp L2 Objective Data Vital Signs: Vital Signs Temp Pulse Resp BP Pulse Ox O2 Del Method 98.8 F 65 18 132/57 H 95 Room Air 01/15/23 09:12 01/15/23 10:42 01/15/23 09:12 01/15/23 10:42 01/15/23 09:12 01/15/23 09:12 Oxygen Delivery Method Room Air Weight: 198 lb 6.656 oz Body Mass Index (BMI) 34.0 Intake & Output: Intake and Output for Last 24 Hours 01/13/23 01/14/23 01/15/23 23:59 23:59 23:59 Intake Total 1120 / 1120 1253.75 / 1253.75 Balance 1120 / 1120 1253.75 / 1253.75 Lab / Micro Data 01/15/23 05:43 01/15/23 05:43 Labs: Laboratory Results - last 24 hr 01/14/23 15:50: WBC 8.6, RBC 4.45, Hgb 12.4, Hct 39.3, MCV 88.3, MCH 27.9, MCHC 31.6 L, RDW Std Deviation 45.2 H, RDW Coeff of Rukhas[place] 14.1, Plt Count 252, MPV 11.7, Immature Gran % (Auto) 0.200, Neut % (Auto) 60.2, Lymph % (Auto) 28.4, [place] % (Auto) 8.3, Eos % (Auto) 2.1, Baso % (Auto) 0.8, Absolute Neuts (auto) 5.2, Absolute Lymphs (auto) 2.43, Nucleated RBC % 0, PT 24.4 H, INR 2.2, Sodium 139, Potassium 4.2, Chloride 106, Carbon Dioxide 27.0, Anion Gap 6, BUN 29 H, Creatinine 1.17 H, Estim Creat Clear Calc 36.43, Est GFR (MDRD) Af Amer 58 L, Est GFR (MDRD) Non-Af 48 L, BUN/Creatinine Ratio 24.8 H, Glucose 188 H, Calcium 9.9, Troponin I High Sens 10 01/14/23 17:47: Troponin I High Sens 13 01/14/23 18:55: Urine Color Yellow, Urine Clarity Sl. Cloudy, Urine pH 6.5, Ur Specific [place] 1.010, Urine Protein Negative, Urine Glucose (UA) 50 H, Urine Ketones Negative, Urine Occult Blood 10 H, Urine Nitrite Negative, Urine Bilirubin Negative, Urine Urobilinogen Normal, Ur Leukocyte Esterase 25 H, Urine RBC 0-5 SEEN, Urine WBC 0-5 SEEN, Ur Squamous Epith Cells 0-5 SEEN, Amorphous Sediment 1+ URATE, Urine Bacteria 0 SEEN, Urine Mucus 0 SEEN 01/15/23 05:35: PT 24.0 H, INR 2.1 01/15/23 05:43: WBC 7.6, RBC 3.77 L, Hgb 10.5 L, Hct 33.4 L, MCV 88.6, MCH 27.9, MCHC 31.4 L, RDW Std Deviation 46.4 H, RDW Coeff of Rukhsana 14.3, Plt Count 198, MPV 11.7, Immature Gran % (Auto) 0.300, Neut % (Auto) 55.2, Lymph % (Auto) 33.5, [place] % (Auto) 8.4, Eos % (Auto) 1.7, Baso % (Auto) 0.9, Absolute Neuts (auto) 4.2, Absolute Lymphs (auto) 2.55, Nucleated RBC % 0, Sodium 141, Potassium 4.0, Chloride 113 H, Carbon Dioxide 23.0, Anion Gap 5, BUN 23 H, Creatinine 0.97, Estim Creat Clear Calc 43.94, Est GFR (MDRD) Af Amer 72, Est GFR (MDRD) Non-Af 60, BUN/Creatinine Ratio 23.8 H, Glucose 124 H, Calcium 9.0, Triglycerides 278 H, Cholesterol 155, LDL Cholesterol 52, VLDL Cholesterol 56 H, HDL Cholesterol 47, TSH 0.80 Rhythm Strip Rhythm Strip: Sinus Rhythm Rate: 73 Ectopy: None Cardiology Labs/Tests 01/14/23 15:50: WBC 8.6, RBC 4.45, Hgb 12.4, Hct 39.3, MCV 88.3, MCH 27.9, MCHC 31.6 L, Plt Count 252, MPV 11.7, Immature Gran % (Auto) 0.200, Neut % (Auto) 60.2, Lymph % (Auto) 28.4, [place] % (Auto) 8.3, Eos % (Auto) 2.1, Baso % (Auto) 0.8, Absolute Neuts (auto) 5.2, Nucleated RBC % 0, PT 24.4 H, INR 2.2, Sodium 139, Potassium 4.2, Chloride 106, Carbon Dioxide 27.0, Anion Gap 6, BUN 29 H, Creatinine 1.17 H, Est GFR (MDRD) Af Amer 58 L, Est GFR (MDRD) Non-Af 48 L, BUN/Creatinine Ratio 24.8 H, Glucose 188 H, Calcium 9.9 01/14/23 18:55: Urine Color Yellow, Urine Clarity Sl. Cloudy, Urine pH 6.5, Ur Specific [place] 1.010, Urine Protein Negative, Urine Glucose (UA) 50 H, Urine Ketones Negative, Urine Occult Blood 10 H, Urine Nitrite Negative, Urine Bilirubin Negative, Urine Urobilinogen Normal, Ur Leukocyte Esterase 25 H, Urine RBC 0-5 SEEN, Urine WBC 0-5 SEEN 01/15/23 05:35: PT 24.0 H, INR 2.1 01/15/23 05:43: WBC 7.6, RBC 3.77 L, Hgb 10.5 L, Hct 33.4 L, MCV 88.6, MCH 27.9, MCHC 31.4 L, Plt Count 198, MPV 11.7, Immature Gran % (Auto) 0.300, Neut % (Auto) 55.2, Lymph % (Auto) 33.5, [place] % (Auto) 8.4, Eos % (Auto) 1.7, Baso % (Auto) 0.9, Absolute Neuts (auto) 4.2, Nucleated RBC % 0, Sodium 141, Potassium 4.0, Chloride 113 H, Carbon Dioxide 23.0, Anion Gap 5, BUN 23 H, Creatinine 0.97, Est GFR (MDRD) Af Amer 72, Est GFR (MDRD) Non-Af 60, BUN/Creatinine Ratio 23.8 H, Glucose 124 H, Calcium 9.0, Triglycerides 278 H, Cholesterol 155, LDL Cholesterol 52, VLDL Cholesterol 56 H, HDL Cholesterol 47 Rhythm: EKG: ECHO: Stress Test: Cardiac Cath: PCI: CT Surgery: Holter monitor: EPS: PPM: CXR: Chest CT Scan: Radiography Diagnostic Testing: Radiology Impression Brain CT 01/14/23 16:13 IMPRESSION: No acute intracranial findings. Electronically Signed: Randall Hazel MD at 17:06 EST , Cervical Spine CT 01/14/23 16:18 IMPRESSION: No acute fracture. Electronically Signed: Randall Hazel MD at 17:10 EST , Chest X-Ray 01/14/23 16:45 IMPRESSION: No radiographic evidence of acute cardiopulmonary disease. Electronically Signed: Randall Hazel MD at 17:11 EST Reading Location ID and State: [id number] [facility] Tel , Service support , Echocardiogram 01/15/23 03:37 Interpretation Summary The estimated ejection fraction is 65 %. Unable to assess diastolic dysfunction. Ordering Physician: [place] Referring Physician: Alexys Tracy Performed By: Mckenna Canada, RDCS, RVT
[2023-01-15 13:40] LABS: Bedside Glucose 169 mg/dL (74-106)
[2023-01-15 15:00] VITALS: BP 120/51; PULSE 74; RESP 16; TEMP 36.6; O2SAT 97
== END 2023-01-15 16:56 | disposition home or self-care (01) ==
LOC: ED 22:36 → PCU 23:59
PROVIDERS: Admitting Provider Internal Medicine; Emergency Provider Emergency Medicine; PCP Family Medicine; Visit Provider Internal Medicine
DX: I95.1 Orthostatic hypotension (principal); I48.0 Paroxysmal atrial fibrillation; E11.9 Type 2 diabetes mellitus without complications; I10 Essential (primary) hypertension; Z68.34 Body mass index [BMI] 34.0-34.9, adult; E66.9 Obesity, unspecified; Z79.01 Long term (current) use of 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; E78.5 Hyperlipidemia, unspecified; J45.909 Unspecified asthma, uncomplicated; Z79.899 Other long term (current) drug therapy; Z79.84 Long term (current) use of oral hypoglycemic drugs; R29.6 Repeated falls; T44.7X5A Adverse effect of beta-adrenoreceptor antagonists, initial encounter; Z23 Encounter for immunization
CPT/HCPCS: 36415; 70450; 71046; 72125; 80048; 80061; 81001; 82962; 84443; 84484; 85025; 85610; 93005; 93306; 96360; 96361; 99221; 99285; G0008; J7030; 90662; A4216; G0378

== ENCOUNTER → 2023-01-17 | Outpatient (CLI) | payer MEDICARE, SELFPAY ==
--- NOTE | 2023-01-17 12:30 | RAD_ITS ---
STUDY: X-RAY - PELVIS AND RIGHT HIP REASON FOR EXAM: Female, 72 years old. fall TECHNIQUE: 5 views of the pelvis and hip. COMPARISON: None. FINDINGS: There is a non-specific bowel gas pattern. Normal visualized soft tissue structures. There are multiple calcified phleboliths. Degenerative disease of the lower lumbar spine. There is narrowing with cortical sclerosis and osteophyte formation of the sacroiliac joint consistent with degenerative osteoarthritic changes. Normal bilateral superior and inferior pubic rami. Normal pubic symphysis. Normal bilateral ischial tuberosities. Mild degenerative disease of bilateral hips. Mild osteophyte along the right femoral head. Normal acetabulum. Mild narrowing of the right hip joint. The right femur reveals gallbladder surgery with intramedullary aditya and total knee prosthesis at the level of the knee. RAD/HIP, UNI W/ Pelvis 2-3 Views IMPRESSION: Multilevel degenerative disease with post ORIF surgery of the right femur. No acute fracture or subluxation seen. Electronically Signed: Chinyere Bae MD at 20:37 EST ,
[2023-01-17 13:19] LABS: Hematocrit 38.4 % (37-47); Hemoglobin 12.1 g/dL (12.0-15.0)
== END | disposition home or self-care (01) ==
LOC: RAD 12:23
PROVIDERS: PCP Family Medicine; Referring Provider Physician Assistant Medical; Visit Provider Physician Assistant Medical
DX: M25.551 Pain in right hip (principal); W19.XXXA Unspecified fall, initial encounter
CPT/HCPCS: 36415; 73502; 85014; 85018

== ENCOUNTER 2023-01-21 20:59 | Emergency (ER) | payer MEDICARE, SELFPAY ==
[2023-01-21 21:04] VITALS: BP 142/49; PULSE 71; RESP 17; TEMP 36.6; O2SAT 97; BMI 35.2
--- NOTE | 2023-01-21 21:11 | EKG12_ITS ---
Test Reason : DIZZY Blood Pressure : / mmHG Vent. Rate : 070 BPM Atrial Rate : 070 BPM P-R Int : 216 ms QRS Dur : 100 ms QT Int : 432 ms P-R-T Axes : 061 -18 011 degrees QTc Int : 466 ms Sinus rhythm 2:1 AV Block Incomplete right bundle branch block Minimal voltage criteria for LVH, may be normal variant ( R in aVL ) Borderline ECG Confirmed by MARLEN BRYANT, CAS ([id number]), social media editor SIMI DESAI ([id number]) on 01/26/2023 12:26:59 PM Referred By: Confirmed By:CAS GEE MD
--- NOTE | 2023-01-21 21:12 | EX.ED.DYSGE1 ---
HPI History of Present Illness Chief Complaint: Dizziness Informant: patient Onset/Context/Timing Onset: Today Narrative Narrative: Patient presents secondary to dizziness. She was seen by her PCP this morning and started on prednisone. After taking her first dose this morning she felt a little lightheaded. This evening she noted worsening of her dizziness and states she was sitting in her chair holding on because she felt the chair was moving. EMS reports her blood sugar was over 500. Patient was admitted to the hospital briefly last week and taken off of sotalol secondary to dizziness and falls. Patient states that dizziness/lightheadedness seemed to improve after her medication change. [facility] Medical History (Updated 01/21/23 @ 22:[address] Bonnie Ramirez MD) Arthritis Asthma Cancer Chronic anemia CVA (cerebral vascular accident) Diabetes DVT (deep venous thrombosis) Hemorrhoids HLD (hyperlipidemia) Hypertension Irregular heart beat Obesity Osteoporosis PAF (paroxysmal atrial fibrillation) Rectal pain TIA (transient ischemic attack) VTE (venous thromboembolism) Home Medications acetaminophen 325 mg tablet 1,000 mg PO QHS 06/26/16 [History Last Taken 06/29/16 1000 mg] loratadine 10 mg tablet 10 mg PO QHS 30 days 07/23/16 [Rx Last Taken Unknown] warfarin 2.5 mg tablet 5 mg PO SUMOWEFR 01/10/17 [History Last Taken Unknown] glipizide 5 mg tablet 5 mg PO BID 07/23/18 [History Last Taken Unknown] phenazopyridine 200 mg tablet 200 mg PO BID PRN PRN Pain #10 tabs 06/24/19 [Rx Last Taken Unknown] Diltiazem 2% / Lidocaine 5% ointment (compound) #1 ea 10/15/22 [Rx Last Taken Unknown] warfarin 5 mg tablet 2.5 mg PO TUTHSA 01/14/23 [History Last Taken Unknown] losartan 25 mg tablet 12.5 mg (1/2 x 25 mg) PO DAILY #30 tabs 01/15/23 [Rx Last Taken Unknown] rosuvastatin 10 mg tablet 20 mg (2 x 10 mg) PO DAILY #30 tabs 01/15/23 [Rx Last Taken Unknown] Allergy/AdvReac Type Severity Reaction Status Date / Time Sulfa (Sulfonamide AdvReac Unknown Diarrhea Verified 01/17/23 11:43 Antibiotics) celecoxib [From Celebrex] AdvReac Nausea/Vom/ Verified 01/17/23 11:43 Diarrhea fluoxetine HCl [From Prozac] AdvReac Other Verified 01/17/23 11:43 isosorbide AdvReac Other Verified 01/17/23 11:43 metformin AdvReac Nausea/Vom/ Verified 01/17/23 11:43 Diarrhea Family History Mother CVA (cerebral vascular accident) Diabetes Heart disease Father CVA (cerebral vascular accident) Diabetes Heart disease Surgical History (Updated 01/21/23 @ 22:04 by Ayana Hart) H/O partial nephrectomy History of appendectomy History of cholecystectomy History of hysterectomy History of knee replacement History of shoulder surgery Social History household members: spouse Smoking Status: Never smoker alcohol intake: never substance use type: does not use ROS ROS ED Constitutional Constitutional ED: Denies chills or fever(s) Eyes Eyes: Denies discharge from eye(s) ENT ENT ED: Denies discharge from eye(s), rhinorrhea or sore throat Cardiovascular Cardiovascular: Denies chest pain or palpitations Respiratory/Chest Respiratory/Chest: Denies cough or dyspnea Gastrointestinal Gastrointestinal: Denies abdominal pain, nausea or vomiting Genitourinary Genitourinary ED: Denies difficulty urinating or dysuria Musculoskeletal Musculoskeletal: Denies back pain or extremity pain Integumentary Denies Abrasions or rash Neurologic Neurologic: Reports other Details: Occasional headaches, none at this time ; Denies weakness Psychiatric Psychiatric: Denies anxiety or depression Allergic/Immunologic Allergic/Immunologic ED: Denies lip swelling or urticaria EXAM Physical Exam Const Vital Signs: 01/21/23 21:04 01/21/23 22:09 01/21/23 23:22 Temperature 97.9 F Temperature Source Oral Pulse Rate 71 37 L 68 Respiratory Rate 17 13 16 Blood Pressure 142/49 H 178/25 H 141/60 H Blood Pressure Mean 80 76 87 Pulse Ox 97 97 97 Oxygen Delivery Method Room Air Room Air Room Air Positive well nourished and well developed General Appearance ED: well developed Eyes EOMs intact bilaterally Chest Wall inspection of chest normal and palpation of chest normal Resp normal respiratory effort and clear to auscultation bilaterally Cardio regular rate and regular rhythm GI non-tender Palpation: soft Extremity normal to inspection Neuro oriented x3 and no sensory deficits noted Motor Exam: strength 5/5 throughout Psych mental status grossly normal Skin no rashes or lesions noted MDM MDM MDM Narrative Medical decision making narrative: Patient placed on quality assurance monitor final. IV line initiated. Patient given IV fluids given her elevated blood sugar. Labwork obtained to evaluate for leukocytosis, anemia, and electrolyte derangement. EKG obtained to evaluate for cardiac arrhythmia/ischemia. Chest x-ray obtained to evaluate for acute lung pathology, cardiac size, or mediastinal abnormality. History & Record Review Discussion w/independent historian: Patient, Family and Significant other Additional record(s) reviewed:: Prior inpatient record, Prior outpatient record, Prior ED visit and Prior labs Lab Data Attestation: I reviewed the patient's lab results. Labs: Laboratory Results - last 24 hr 01/21/23 21:20 WBC 7.5 RBC 4.37 Hgb 12.0 Hct 37.7 MCV 86.3 MCH 27.5 MCHC 31.8 L RDW Std Deviation 43.4 RDW Coeff of Rukhsana 13.7 Plt Count 279 MPV 11.6 Immature Gran % (Auto) 0.400 Neut % (Auto) 89.4 H Lymph % (Auto) 8.3 L [place] % (Auto) 1.6 Eos % (Auto) 0.0 Baso % (Auto) 0.3 Absolute Neuts (auto) 6.7 Absolute Lymphs (auto) 0.62 L Nucleated RBC % 0 PT 24.5 H INR 2.2 Sodium 133 L Potassium 5.4 H Chloride 100 Carbon Dioxide 24.0 Anion Gap 9 BUN 30 H Creatinine 1.57 H Estim Creat Clear Calc 27.15 Est GFR (MDRD) Af Amer 41 L Est GFR (MDRD) Non-Af 34 L BUN/Creatinine Ratio 19.1 Glucose 541 H* Calcium 9.7 Troponin I High Sens 23 Acetone Level NEGATIVE Radiography Chest X-Ray - ED: 1 View, Read by ED Physician and Chronic Changes Diagnostic Testing: Clinical Impression(s) from Imaging Studies Chest X-Ray 01/21/23 22:23 IMPRESSION: Findings suspicious for developing pneumonia in the left mid to upper lung. Electronically Signed: Carlos A Culp MD at 22:37 EST , EKG Initial EKG: Attestation: I personally reviewed and interpreted this EKG as follows: Interpretation: Sinus Rhythm (Sinus at 70 with incomplete right bundle branch block.) Follow-up EKG: Attestation: I personally reviewed and interpreted this EKG as follows: Comments: Second-degree AV block with 4 1 conduction. Ventricular rate is 38 bpm. Treatment and Re-Evaluation :: CBC was normal white count 7.5 with a hemoglobin of 12.0. Differential reveals 89% neutrophils. Chemistry studies reveal a BUN of 30 and creatinine 1.57. This appears consistent with her baseline. Potassium is 5.4 with moderate hemolysis. Glucose is elevated at 541. Serum acetone is negative. Portable chest x-ray per my interpretation reveals chronic changes. Radiology interpretation reviewed and believes there may be a pneumonia. Patient has no symptoms of pneumonia or infection. Initial EKG is sinus at 70. I was called back into the room by nursing staff who notes her heart rate is now in the mid 30s. Repeat EKG at this time reveals a sinus tachycardia rhythm with a second-degree AV block with 4-1 AV conduction where she is only conducting every fourth P wave. Her ventricular rate is only 38. Patient's blood pressure has been stable with this. I spoke with cardiology on-call and we do not have anyone available for a pacemaker this weekend. I then spoke with Audelia lagunas and patient has been accepted. I will add a troponin. Critical Care Time Critical Care Time: Yes Critical care time (excluding procedures): 30-74 minutes (45 minutes), Including time spent:, Discussing w/Patient &/or Family/Neuropsychologist, Discussing w/Consultants, Arranging Admission or Transfer and Performing Direct Patient Care at Bedside Discharge Plan Triage Chief Complaint: Dizziness ED Provider: Bonnie Ramirez Dx/Rx/DC Orders Clinical Impression: AV heart block, Bradycardia Prescriptions: No Action (DME) Diltiazem 2% / Lidocaine 5% ointment (compound) Ointment See Rx Instructions .Route Qty: 1 0RF Rx Instructions: As directed acetaminophen 325 MG tablet 1,000 mg PO QHS Patient Comments: pain control loratadine 10 MG tablet 10 mg PO QHS 30 Days 0RF warfarin 2.5 MG tablet 5 mg PO SUMOWEFR glipizide 5 MG tablet 5 mg PO BID Patient Comments: TAKE 1 TABLET BY MOUTH TWICE DAILY Rx Instructions: 10 IN THE AM, 5 MG AT NIGHT phenazopyridine 200 MG tablet 200 mg PO BID PRN PRN (Reason: Pain) Qty: 10 0RF Hold Instructions: Pt has been DC'd warfarin 5 mg tablet 2.5 mg PO TUTHSA losartan 25 mg Tablet 12.5 mg PO DAILY Qty: 30 2RF Rx Instructions: Hold for SBP less than 130 mmHg rosuvastatin 10 mg tablet 20 mg PO DAILY Qty: 30 0RF Primary Care Provider: Alexys Tracy Referrals: Alexys Tracy MD [Primary Care Provider] - Disposition Disposition: Acute Care Hospital Discharge Location: [facility]
[2023-01-21 21:34] LABS: Absolute Lymphocyte Count 0.62 X10^3/uL (0.83-4.51); Absolute Neutrophil Count 6.7 X10^3/uL (2.0-7.7); Basophil# 0.02 X10^3/uL; Basophil% 0.3 % (0-1); Hematocrit 37.7 % (37-47); Lymphocyte # 0.62 X10^3/ul (0.83-4.51); Lymphocyte % 8.3 % (19-41); Mean Corp Hgb Conc 31.8 g/dL (32-36); Mean Corpuscular Hgb 27.5 pg (27.0-32.0); Mean Corpuscular Volume 86.3 fL (81-99); Mean Platelet Vol. 11.6 fl (6.2-12.0); Monocyte# 0.12 X10^3/uL; Monocyte% 1.6 % (0-10); NRBC Flagged by Analyzer 0 % (0-5); Neutrophil # 6.71 X10^3/uL (2.7-7.7); Neutrophil % 89.4 % (47-70); Platelet Count 279 K/mm3 (150-450); RBC Distribution Width CV 13.7 % (11.6-14.6); RBC Distribution Width SD 43.4 fl (35.1-43.9); Red Blood Count 4.37 M/mm3 (4.2-5.4); White Blood Count 7.5 K/mm3 (4.4-11.0)
[2023-01-21 21:55] LABS: International Normalized Ratio 2.2; Prothrombin Time (Protime)PT. 24.5 SECONDS (11.7-14.9)
[2023-01-21 21:58] LABS: Anion Gap 9 (5-15); BUN 30 mg/dL (7-18); BUN/Creat Ratio 19.1 RATIO (10-20); Calcium,Total 9.7 mg/dL (8.5-10.1); Chloride 100 mmol/L (98-107); Creatinine, Serum 1.57 mg/dL (0.55-1.02); EST Glomerular Filtration Rate 34 mL/min (>60); Est Glom Filt Rate - Afr Amer 41 mL/min (>60); Estimated Creatinine Clearance 27.15 ml/min; Glucose 541 mg/dL (74-106); Potassium 5.4 mmol/L (3.5-5.1); Sodium Level 133 mmol/L (136-145)
--- NOTE | 2023-01-21 21:58 | EKG12_ITS ---
Test Reason : REPEAT Blood Pressure : / mmHG Vent. Rate : 038 BPM Atrial Rate : 150 BPM P-R Int : 256 ms QRS Dur : 098 ms QT Int : 598 ms P-R-T Axes : 069 -05 022 degrees QTc Int : 475 ms Critical Test Result: Low HR , AV Block Sinus Tachycardia with high grade AV block Abnormal ECG Confirmed by MARLEN BRYANT, CAS ([id number]), news videotape editor SIMI DESAI ([id number]) on 01/26/2023 12:28:11 PM Referred By: Confirmed By:CAS GEE MD
[2023-01-21] MEDS: 0.9% Normal Saline (1000mL) 1,000 ML 1000 ML IV (21:59)
[2023-01-21 22:09] VITALS: BP 178/25; PULSE 37; RESP 13; O2SAT 97
--- NOTE | 2023-01-21 22:23 | RAD_ITS ---
EXAM: XR CHEST, 1 VIEW CLINICAL INDICATION: sob TECHNIQUE: Frontal view of the chest. COMPARISON: Previous chest radiographs of 01/14/2023 and 06/30/2016. FINDINGS: LUNGS AND PLEURAL SPACES: Lesser degree of inspiration with crowding of bronchovascular markings. Development of subtle patchy density in the left mid to upper lung, worrisome for early pneumonia. Right lung is clear. No pneumothorax. No effusion. HEART: Unremarkable. Cardiac silhouette not enlarged. Normal pulmonary vasculature. MEDIASTINUM: Mild elongation and calcification of the thoracic aorta. BONES/JOINTS: Unremarkable. No acute fracture. SOFT TISSUES: Cholecystectomy clips. RAD/Chest 1 View (Portable) IMPRESSION: Findings suspicious for developing pneumonia in the left mid to upper lung. Electronically Signed: Carlos A Culp MD at 22:37 EST ,
[2023-01-21 23:22] VITALS: BP 141/60; PULSE 68; RESP 16; O2SAT 97
[2023-01-21 23:31] LABS: Troponin-I HS 23 pg/mL (3.0-54.0)
[2023-01-22 00:14] LABS: Bedside Glucose 489 mg/dL (74-106)
[2023-01-22 00:17] VITALS: BP 93/71; PULSE 64; RESP 22; O2SAT 97
[2023-01-22] MEDS: 0.9% Normal Saline (1000mL) 1,000 ML 999 ML IV (00:44)
[2023-01-22] MEDS: Insulin Lispro 100 UNIT/ML INSULN.PEN 6 UNIT SC (00:48)
[2023-01-22 02:00] VITALS: BP 136/71; PULSE 116; RESP 16; TEMP 36.4; O2SAT 97
== END 2023-01-22 02:24 | disposition short-term general hospital (02) ==
PROVIDERS: Emergency Provider Emergency Medicine; PCP Family Medicine; Visit Provider Emergency Medicine
DX: I44.1 Atrioventricular block, second degree (principal); E11.9 Type 2 diabetes mellitus without complications; I10 Essential (primary) hypertension; R00.1 Bradycardia, unspecified; E78.5 Hyperlipidemia, unspecified; R42 Dizziness and giddiness; Z79.01 Long term (current) use of 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; Z79.899 Other long term (current) drug therapy; Z86.718 Personal history of other venous thrombosis and embolism; J45.909 Unspecified asthma, uncomplicated
CPT/HCPCS: 71045; 80048; 82009; 82962; 84484; 85025; 85610; 93005; 96360; 96361; 96374; 96375; 99285; J7030; A4216

== ENCOUNTER 2023-01-28 00:11 | Emergency (ER) | payer MEDICARE, SELFPAY ==
[2023-01-28 00:12] VITALS: BP 187/90; PULSE 100; RESP 18; TEMP 36.4; O2SAT 99; BMI 33.9
--- NOTE | 2023-01-28 00:35 | ED.VIS.GI ---
HPI HPI - GI History of Present Illness Chief Complaint: Constipation Informant: patient and spouse/S.O. Abdominal Pain/Flank Pain Onset: Days Context: Gradual Onset Timing: Continuous Current Severity: Mild Maximum Severity: Mild Nausea/Vomiting/Emesis GI Symptom: Negative for Nausea or Vomiting Diarrhea/Melena/Hematochezia GI Symptom: Negative for Diarrhea or Melena Associated Symptoms Associated Symptoms: Negative for Dysuria, Frequency, Hematuria or Urgency Narrative Narrative: 72-year-old female status post recent pacemaker placed at [facility] on Tuesday. She is on Coumadin for A-fib. States that she has a history of constipation. After being hospitalized and off her regular diet and routine she said she has soft stools but limited bowel movements last several days. Really denies any abdominal pain. She has chronic hemorrhoids had some intermittent bleeding. She said that not new or worse. She denies any nausea or vomiting or any significant abdominal pain. Prior similar symptoms: Yes Recent Illness/Hospitalization: Yes PFSH PFSH Medical History Arthritis Asthma Cancer Chronic anemia CVA (cerebral vascular accident) Diabetes DVT (deep venous thrombosis) Hemorrhoids HLD (hyperlipidemia) Hypertension Irregular heart beat Obesity Osteoporosis PAF (paroxysmal atrial fibrillation) Rectal pain TIA (transient ischemic attack) VTE (venous thromboembolism) Home Medications acetaminophen 325 mg tablet 1,000 mg PO QHS 06/26/16 [History Last Taken 06/29/16 1000 mg] loratadine 10 mg tablet 10 mg PO QHS 30 days 07/23/16 [Rx Last Taken Unknown] warfarin 2.5 mg tablet 5 mg PO SUMOWEFR 01/10/17 [History Last Taken Unknown] glipizide 5 mg tablet 5 mg PO BID 07/23/18 [History Last Taken Unknown] phenazopyridine 200 mg tablet 200 mg PO BID PRN PRN Pain #10 tabs 06/24/19 [Rx Last Taken Unknown] Diltiazem 2% / Lidocaine 5% ointment (compound) #1 ea 10/15/22 [Rx Last Taken Unknown] warfarin 5 mg tablet 2.5 mg PO TUTHSA 01/14/23 [History Last Taken Unknown] losartan 25 mg tablet 12.5 mg (1/2 x 25 mg) PO DAILY #30 tabs 01/15/23 [Rx Last Taken Unknown] docusate sodium 100 mg capsule (Colace) 200 mg PO QHS 01/21/23 [History Last Taken Unknown] multivitamin (Daily Multi-Vitamin tablet) 1 tab PO DAILY 01/21/23 [History Last Taken Unknown] rosuvastatin 10 mg tablet 20 mg PO QHS 01/21/23 [History Last Taken Unknown] Allergy/AdvReac Type Severity Reaction Status Date / Time Sulfa (Sulfonamide AdvReac Unknown Diarrhea Verified 01/28/23 00:15 Antibiotics) celecoxib [From Celebrex] AdvReac Nausea/Vom/ Verified 01/28/23 00:15 Diarrhea fluoxetine HCl [From Prozac] AdvReac Other Verified 01/28/23 00:15 isosorbide AdvReac Other Verified 01/28/23 00:15 metformin AdvReac Nausea/Vom/ Verified 01/28/23 00:15 Diarrhea Family History Mother CVA (cerebral vascular accident) Diabetes Heart disease Father CVA (cerebral vascular accident) Diabetes Heart disease Surgical History H/O partial nephrectomy History of appendectomy History of cholecystectomy History of hysterectomy History of knee replacement History of shoulder surgery Social History household members: spouse Smoking Status: Never smoker alcohol intake: never substance use type: does not use ROS ROS ED ROS Narrative Constipation. Review of Systems ROS Unobtainable: Denies due to encephalopathy Constitutional Constitutional ED: Denies chills or fever(s) Cardiovascular Cardiovascular: Denies chest pain Respiratory/Chest Respiratory/Chest: Denies cough or dyspnea Gastrointestinal Gastrointestinal: Reports constipation; Denies abdominal pain, diarrhea, melena, nausea or vomiting Genitourinary Genitourinary ED: Denies dysuria or hematuria Musculoskeletal Musculoskeletal: Denies arthralgias Integumentary Denies abscess Neurologic Neurologic: Denies headache(s) Psychiatric Psychiatric: Denies anxiety Endocrine Endocrinology: Denies polydipsia or polyphagia Allergic/Immunologic Allergic/Immunologic ED: Denies mouth swelling, tongue swelling or urticaria EXAM Physical Exam Narrative Exam Narrative: Well-appearing 72-year-old female. Vital signs stable afebrile. present at bedside. HEENT exam unremarkable. Lungs clear. Heart regular rhythm rate about 100 no murmur. Abdomen soft, nondistended, normal bowel sounds without peritoneal signs. Moving all 4 extremities. Nontender no edema. Chest wall she has a recently placed pacemaker on the left. It is well-healing. Back nontender. She has external hemorrhoids. Currently no active bleeding. She is awake and alert. Const Vital Signs: 01/28/23 00:12 Temperature 97.6 F L Temperature Source Temporal Pulse Rate 100 Respiratory Rate 18 Blood Pressure 187/90 H Blood Pressure Mean 122 Pulse Ox 99 Oxygen Delivery Method Room Air Positive well nourished and well developed; Negative for cachectic, contractures or unkempt General Appearance ED: well developed and NAD; Negative for unkempt, cachectic, contractures or pallor Nutritional Appearance: Negative for cachectic HEENT Reports moist mucous membranes normocephalic and atraumatic; Negative for trauma or tenderness Eyes PERRL and EOMs intact bilaterally General Eye ED: Negative for pale conjunctiva or scleral icterus Neck no lymphadenopathy, supple and no JVD General: Negative for tenderness Lymph Lymphatic: Negative for other Resp normal respiratory effort and clear to auscultation bilaterally Effort and Inspection: Negative for respiratory distress Auscultation: Negative for rales, rhonchi or wheezes Cardio regular rate, regular rhythm, S1 normal heart sound, S2 normal heart sound and no murmurs GI non-tender, non-distended and no masses Inspection: Negative for abdominal distention Auscultation: normoactive bowel sounds Palpation: soft; Negative for tender or guarding Back/Spine no CVA tenderness General Back: Negative for CVA tenderness Cervical Spine: Negative for cervical spine tenderness Thoracic Spine / Upper Back: Negative for thoracic spinal tenderness Lumbar Spine / Lower Back: Negative for lumbar spinal tenderness Coccyx: Negative for other Extremity full ROM General Extremety ED: Negative for edema or tenderness General Extremity: Negative for edema Neuro CN's II-XII intact bilaterally and moves all extremities Sensorium / Orientation: alert, oriented to person, oriented to place and oriented to time; Negative for orientation impaired, confused or lethargic Motor Exam: strength 5/5 throughout Psych mental status grossly normal and thought process normal Appearance: Negative for unkempt Attitude: No agitated Mood & Affect: Negative for depressed, anxious or tearful Skin no wounds General Skin Exam: Negative for jaundice or pallor Lesions: no lesions Rashes: no rashes Trauma: Negative for abrasion MDM MDM MDM Narrative Medical decision making narrative: 72-year-old female status post recent hospitalization for pacemaker placement. Complaining of constipation which she has a history of. KUB being obtained. Otherwise exam is benign. Repeat exam patient doing well 1:30 AM. We went over x-ray results they are consistent with constipation. We discussed options and she preferred to go home and use GoLytely which we will get her from the pharmacy and sent home with her. She will continue to use Preparation H or Anusol cream for hemorrhoids. Follow-up as needed or return if worse. Patient and her at bedside are both comfortable with the plan. She will start using the GoLytely around 8 or 9 AM. Radiography Diagnostic Testing: Clinical Impression(s) from Imaging Studies KUB X-Ray 01/28/23 00:45 IMPRESSION: Moderate to large amount of stool. Electronically Signed: Cordell Donohue MD at 1:28 EST , KUB, single view, interpreted by myself and the radiologist showed increased stool in the rectum, ascending, transverse and descending colon. No obstruction. No free air. Discharge Plan Triage Chief Complaint: Constipation ED Provider: Gallito Roberson Dx/Rx/DC Orders Clinical Impression: Acute constipation, Chronic anticoagulation, Hemorrhoids, History of pacemaker, History of atrial fibrillation Instructions: ED Constipation (Adult), ED Hemorrhoids Prescriptions: No Action (DME) Diltiazem 2% / Lidocaine 5% ointment (compound) Ointment See Rx Instructions .Route Qty: 1 0RF Rx Instructions: As directed acetaminophen 325 MG tablet 1,000 mg PO QHS Patient Comments: pain control loratadine 10 MG tablet 10 mg PO QHS 30 Days 0RF warfarin 2.5 MG tablet 5 mg PO SUMOWEFR Rx Instructions: QHS glipizide 5 MG tablet 5 mg PO BID Patient Comments: TAKE 1 TABLET BY MOUTH TWICE DAILY Rx Instructions: 10 IN THE AM, 5 MG AT NIGHT phenazopyridine 200 MG tablet 200 mg PO BID PRN PRN (Reason: Pain) Qty: 10 0RF Hold Instructions: NO LONGER TAKING warfarin 5 mg tablet 2.5 mg PO TUTHSA losartan 25 mg Tablet 12.5 mg PO DAILY Qty: 30 2RF Rx Instructions: Hold for SBP less than 130 mmHg multivitamin [Daily Multi-Vitamin] Tablet 1 tab PO DAILY rosuvastatin 10 mg tablet 20 mg PO QHS docusate sodium [Colace] 100 mg capsule 200 mg PO QHS Primary Care Provider: Alexys Tracy Referrals: Alexys Tracy MD [Primary Care Provider] - 1-2 Days if not improving Activity Restrictions/Additional Instructions: Start drinking the GoLytely either at 8 or 9 AM. I would start with two 8 ounce glasses. And then an 8 out glass every 2 hours as needed and to have a large bowel movement. Use Preparation H or Anusol cream for your hemorrhoids. Also sit in a warm bathtub. Follow-up with your doctor if not improving or return if worse. Disposition Disposition: Home, Self Care
--- NOTE | 2023-01-28 00:45 | RAD_ITS ---
INDICATION: constipation EXAMINATION/TECHNIQUE: X-RAY - XR Abdomen COMPARISON: None. FINDINGS: Supine frontal views of the abdomen and pelvis were obtained. A moderate to large amount of stool is in the colon and rectum. Few loops of small bowel are borderline dilated, but there is no diffuse small bowel dilatation as definitive evidence of small bowel obstruction. No gross free air given the limitations of a supine view. Cholecystectomy clips. Mesenteric calcifications. RAD/Abdomen Single View IMPRESSION: Moderate to large amount of stool. Electronically Signed: Cordell Donohue MD at 1:28 EST ,
[2023-01-28] MEDS: Electrolyte Solution/Peg's 4000 ML 2000 ML PO (02:04)
== END 2023-01-28 02:06 | disposition home or self-care (01) ==
PROVIDERS: Emergency Provider Emergency Medicine; PCP Family Medicine; Visit Provider Emergency Medicine
DX: K59.00 Constipation, unspecified (principal); I48.91 Unspecified atrial fibrillation; E11.9 Type 2 diabetes mellitus without complications; Z79.01 Long term (current) use of 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; E78.5 Hyperlipidemia, unspecified; I10 Essential (primary) hypertension; K64.9 Unspecified hemorrhoids; Z95.0 Presence of cardiac pacemaker; Z79.899 Other long term (current) drug therapy
CPT/HCPCS: 74018; 99282

== ENCOUNTER → 2023-02-15 | Outpatient (CLI) | payer MEDICARE, SELFPAY ==
[2023-02-15 15:04] LABS: International Normalized Ratio 1.7; Prothrombin Time (Protime)PT. 19.8 SECONDS (11.7-14.9)
== END | disposition home or self-care (01) ==
LOC: LAB 13:48
PROVIDERS: PCP Family Medicine; Referring Provider Physician Assistant Medical; Visit Provider Physician Assistant Medical
DX: I48.0 Paroxysmal atrial fibrillation (principal); Z79.01 Long term (current) use of 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
CPT/HCPCS: 36415; 85610

== ENCOUNTER → 2023-03-04 | Outpatient (CLI) | payer MEDICARE, SELFPAY ==
[2023-03-04 14:50] LABS: International Normalized Ratio 1.9; Prothrombin Time (Protime)PT. 21.9 SECONDS (11.7-14.9)
== END | disposition home or self-care (01) ==
LOC: LAB 14:02
PROVIDERS: PCP Family Medicine; Referring Provider Physician Assistant Medical; Visit Provider Physician Assistant Medical
DX: I48.0 Paroxysmal atrial fibrillation (principal); Z79.01 Long term (current) use of 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
CPT/HCPCS: 36415; 85610

== ENCOUNTER 2023-03-18 12:37 | Outpatient (RCR) | payer MEDICARE, SELFPAY | END 2023-03-18 18:00 | disposition home or self-care (01) | LOC: LAB 12:37 | PROVIDERS: PCP Family Medicine; Referring Provider Physician Assistant Medical; Visit Provider Physician Assistant Medical | DX: Z79.01 Long term (current) use of 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 (principal); I48.0 Paroxysmal atrial fibrillation | CPT/HCPCS: 36415; 85610 ==

== ENCOUNTER 2023-04-25 13:11 | Outpatient (RCR) | payer MEDICARE, SELFPAY ==
[2023-04-25 13:39] LABS: International Normalized Ratio 2.2; Prothrombin Time (Protime)PT. 24.8 SECONDS (11.7-14.9)
== END 2023-05-05 18:00 | disposition home or self-care (01) ==
LOC: LAB 13:11
PROVIDERS: PCP Family Medicine; Referring Provider Physician Assistant Medical; Visit Provider Physician Assistant Medical
DX: I48.0 Paroxysmal atrial fibrillation (principal); Z79.01 Long term (current) use of 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
CPT/HCPCS: 36415; 85610

== ENCOUNTER → 2023-05-23 | Outpatient (CLI) | payer MEDICARE, SELFPAY ==
--- NOTE | 2023-05-21 | LES_PTH ---
PATIENT: SVEN ALEJO LOC: [facility] U#:[id number] AGE/SX: 73/F ROOM: RE05/23/[address]: Dr. Chris Land MD : [id number] BED: DIS: 05/23/2023 SPEC #: [id number] RECD: 05/21/23 10:45 STATUS: ANAYELI REDesiree #: [id number] BRANDON: 05/21/23 00:[address]: Chris Land DEPT: SURGICAL PATHOLOGY RECD BY: Julieth Melendrez ENTERED: 05/23/23 11:59 SP TYPE: Lesion OTHR DR: Dr. 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 Solar elastosis. SJ/mr 05/24/2023 COMMENT Case has been reviewed in consultation with Dr. Kumar who concurs with the above diagnosis. IDC:AM MICROSCOPIC DESCRIPTION Slides are reviewed. GROSS DESCRIPTION Received in fixative is one container labeled with the patient's name and designated Left upper lid. The specimen consists of a piece of florence-white skin measuring 0.2x 0.1x <0.1cm. SJ/ mr 05/23/2023 TC:5 CPT: 65075
== END | disposition home or self-care (01) ==
LOC: LABSPEC 10:51
PROVIDERS: PCP Family Medicine; Referring Provider Ophthalmology; Visit Provider Ophthalmology
DX: D49.2 Neoplasm of unspecified behavior of bone, soft tissue, and skin (principal)
CPT/HCPCS: 88305

== ENCOUNTER 2023-06-08 12:36 | Outpatient (RCR) | payer MEDICARE, SELFPAY ==
[2023-06-08 13:14] LABS: International Normalized Ratio 2.6; Prothrombin Time (Protime)PT. 27.8 SECONDS (11.7-14.9)
== END 2023-07-05 22:36 | disposition home or self-care (01) ==
LOC: LAB 12:36
PROVIDERS: PCP Family Medicine; Referring Provider Physician Assistant Medical; Visit Provider Physician Assistant Medical
DX: I48.0 Paroxysmal atrial fibrillation (principal); Z79.01 Long term (current) use of 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
CPT/HCPCS: 36415; 85610

== ENCOUNTER → 2023-06-28 | Outpatient (CLI) | payer MEDICARE, SELFPAY ==
--- NOTE | 2023-06-28 12:45 | CDU_ITS ---
Reason For Study: Rt Carotid Bruit Rt. Velocities/BP Lt. Velocities/BP Prox CCA 94.1/9.7 cm/sec. Prox CCA 100.7/11.6 cm/sec. Mid CCA 87.2/20.0 cm/sec. Mid CCA 88.2/7.5 cm/sec. Dist CCA 76.9/21.7 cm/sec. Dist CCA 67.5/11.6 cm/sec. Prox ICA 113.8/29.8 cm/sec. Prox ICA 0.0 / 0.0 cm/sec. Mid ICA 124.6/43.6 cm/sec. Mid ICA 0.0 / 0.0 cm/sec. Dist ICA 112.4/32.2 cm/sec. Lt ICA appears occluded. Rt. ICA/CCA = 1.4. Prox ECA 209.2/17.1 cm/sec. Prox ECA 164.9/11.5 cm/sec. Lt. Vert. 55.6/15.1 cm/sec. Rt. Vert. 53.5/11.0 cm/sec. Right Extracranial There is intimal thickening but no significant atherosclerotic plaque noted in the right common carotid artery. There is heterogeneous, irregular atherosclerotic plaque noted in the right internal carotid artery. There is heterogeneous, irregular atherosclerotic plaque noted in the right external carotid artery. Antegrade flow is noted in the right vertebral artery. Left Extracranial There is heterogeneous, irregular atherosclerotic plaque noted in the left common carotid artery. There is heterogeneous, irregular atherosclerotic plaque noted in the left internal carotid artery. The left internal carotid artery is occluded. There is heterogeneous, irregular atherosclerotic plaque noted in the left external carotid artery. Antegrade flow is noted in the left vertebral artery. Procedure Carotid Duplex [id number]. This is a Carotid Duplex examination using B-mode, color flow and specral Doppler. The exam was diagnostic. Exam performed in department. VL/Carotid Duplex Ultrasound Interpretation Summary Mild (<50%) stenosis right extracranial internal carotid. 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 Patent and antegrade vertebrals bilaterally. Ordering Physician: Kay Cavazos Referring Physician: MD Demarcus Alexys Performed By: Gonzalo Parikh RVT
== END | disposition home or self-care (01) ==
LOC: CVS 12:44
PROVIDERS: PCP Family Medicine; Referring Provider Physician Assistant Medical; Visit Provider Physician Assistant Medical
DX: R42 Dizziness and giddiness (principal); I65.23 Occlusion and stenosis of bilateral carotid arteries; R09.89 Other specified symptoms and signs involving the circulatory and respiratory systems
CPT/HCPCS: 93880

== ENCOUNTER 2023-07-15 23:17 | Emergency (ER) | payer MEDICARE, SELFPAY ==
[2023-07-15 23:17] VITALS: BP 145/99; PULSE 65; RESP 14; TEMP 36.1; O2SAT 97
[2023-07-15 23:20] VITALS: BMI 34.3
--- NOTE | 2023-07-15 23:22 | CT_ITS ---
EXAM: CT HEAD WITHOUT INTRAVENOUS CONTRAST CLINICAL INDICATION: FALL TECHNIQUE: Multiple axial images were obtained of the head without intravenous contrast. CTDIvol = ( 44.99 ) mGy, DLP = ( 796.11 ) mGycm This CT exam was performed using one or more of the following dose reduction techniques: automated exposure control, adjustment of the mA and/or kV according to patient size, and/or use of iterative reconstruction technique. COMPARISON: No relevant prior studies available. FINDINGS: BRAIN AND EXTRA-AXIAL SPACES: Periventricular small vessel ischemic change. No midline shift or hydrocephalus. Diffuse parenchymal atrophy. Posterior fossa structures are unremarkable. Basal cisterns are patent. No acute intracranial hemorrhage, mass effect or edema. No evidence of acute cortical stroke. BONES/JOINTS: Unremarkable. No discrete lytic or blastic abnormalities. VASCULATURE: Atherosclerotic calcifications of the carotid siphons and vertebrobasilar arteries. SINUSES: Unremarkable as visualized. Clear. MASTOID AIR CELLS: Visualized sinuses and mastoid air cells are clear. ORBITS: Visualized globes, extraocular muscles, optic nerves and retrobulbar fat appear unremarkable. CT/Brain/Head without Contrast IMPRESSION: 1. No evidence of acute intracranial pathology. 2. Diffuse involutional changes and chronic ischemic small vessel white matter disease. AIDOC was utilized to assist in identifying pertinent positive findings. Electronically Signed: Timothy Kpaoor MD at 0:22 EDT ,
--- NOTE | 2023-07-15 23:22 | CT_ITS ---
EXAM: CT CERVICAL SPINE WITHOUT INTRAVENOUS CONTRAST CLINICAL INDICATION: FALL TECHNIQUE: Helically acquired images were obtained of the cervical spine without intravenous contrast. 2D reformatted images were reviewed. CTDIvol = ( 22.65 ) mGy, DLP = ( 507.76 ) mGycm This CT exam was performed using one or more of the following dose reduction techniques: automated exposure control, adjustment of the mA and/or kV according to patient size, and/or use of iterative reconstruction technique. COMPARISON: No relevant prior studies available. FINDINGS: VERTEBRAE: Unremarkable. No traumatic subluxation. No discrete lytic or blastic abnormality. Normal craniocervical junction and cervicothoracic junction. No evidence of acute or healing fracture or malalignment. DISCS/SPINAL CANAL/NEURAL FORAMINA: Multilevel spine degenerative changes. No critical central canal stenosis. SOFT TISSUES: Unremarkable. No prevertebral soft tissue swelling. VASCULATURE: Atherosclerotic calcifications of the internal carotid arteries of the neck. LYMPH NODES: Unremarkable. No cervical adenopathy. THYROID: Bilateral indeterminate thyroid nodules can be further investigated with dedicated thyroid ultrasound. LUNG APICES: Unremarkable as visualized. Clear. PLEURAL SPACE: Unremarkable. No significant effusion. No or apical pneumothorax. CT/Spine Cervical without Contras IMPRESSION: 1. No evidence of acute or healing fracture or malalignment. 2. Bilateral indeterminate thyroid nodules can be further investigated with dedicated thyroid ultrasound. 3. AIDOC was utilized to assist in identifying pertinent positive findings. Electronically Signed: Timothy Kapoor MD at 0:19 EDT ,
--- NOTE | 2023-07-15 23:59 | EX.ED.DYSGE1 ---
HPI History of Present Illness Chief Complaint: Head Injury Informant: patient Onset/Context/Timing Onset: Today Narrative Narrative: Patient presents with fall and head injury. She is currently on Coumadin, her last INR check approximate 1 month ago. She was going up an outdoor step onto a porch tonight when she lost her balance, fell between a metal railing and a lyles. She has a 3 cm long abrasion on the right mosque. She denies loss of consciousness. She denies neck pain. [facility] Medical History Arthritis Asthma Bilateral carotid artery stenosis (10/27/20) Cancer Chronic anemia Cirrhosis of liver not due to alcohol Complete heart block CVA (cerebral vascular accident) Depression Diabetes DVT (deep venous thrombosis) Goiter Hemorrhoids History of renal carcinoma HLD (hyperlipidemia) Hypertension Irregular heart beat Obesity Osteoporosis PAF (paroxysmal atrial fibrillation) Rectal pain Stage 3a chronic kidney disease (CKD) Thrombosed external hemorrhoid TIA (transient ischemic attack) VTE (venous thromboembolism) Home Medications acetaminophen 325 mg tablet 1,000 mg PO QHS 06/26/16 [History Last Taken 06/29/16 1000 mg] loratadine 10 mg tablet 10 mg PO QHS 30 days 07/23/16 [Rx Last Taken Unknown] warfarin 2.5 mg tablet 5 mg PO SUMOWEFR 01/10/17 [History Last Taken Unknown] glipizide 5 mg tablet 5 mg PO BID 07/23/18 [History Last Taken Unknown] warfarin 5 mg tablet 2.5 mg PO TUTHSA 01/14/23 [History Last Taken Unknown] losartan 25 mg tablet 12.5 mg (1/2 x 25 mg) PO DAILY #30 tabs 01/15/23 [Rx Last Taken Unknown] docusate sodium 100 mg capsule (Colace) 200 mg PO QHS 01/21/23 [History Last Taken Unknown] multivitamin (Daily Multi-Vitamin tablet) 1 tab PO DAILY 01/21/23 [History Last Taken Unknown] hydrocortisone 2.5 % topical cream with perineal applicator (Anusol-HC) 1 applic SC QD-BID PRN 02/04/23 [History Last Taken Unknown] promethazine 12.5 mg tablet 12.5 mg PO Q6H PRN 02/04/23 [History Last Taken Unknown] rosuvastatin 20 mg tablet 20 mg PO QHS #90 tabs 03/14/23 [Rx Last Taken Unknown] metoprolol tartrate 50 mg tablet 50 mg PO BID #180 tabs 04/25/23 [Rx Last Taken Unknown] Allergy/AdvReac Type Severity Reaction Status Date / Time etodolac AdvReac Intermediate GI upset Verified 07/15/23 23:17 gabapentin AdvReac Intermediate dizziness Verified 07/15/23 23:17 NSAIDS (Non-Steroidal AdvReac Intermediate GI upset Verified 07/15/23 23:17 Anti-Inflamma sulfamethoxazole AdvReac Intermediate Sulfa Verified 07/15/23 23:17 drugs GI upset sulfametrole AdvReac Intermediate GI upset Verified 07/15/23 23:17 valdecoxib [From Bextra] AdvReac Intermediate GI upset Verified 07/15/23 23:17 atorvastatin AdvReac Unknown unknown Verified 07/15/23 23:17 codeine AdvReac Unknown unknown Verified 07/15/23 23:17 guaifenesin [From Entex [place]] AdvReac Unknown unknown Verified 07/15/23 23:17 hydrocodone AdvReac Unknown unknown Verified 07/15/23 23:17 naproxen [From Naprosyn] AdvReac Unknown unknown Verified 07/15/23 23:17 phenylephrine [From Entex LA] AdvReac Unknown unknown Verified 07/15/23 23:17 phenylpropanolamine AdvReac Unknown unknown Verified 07/15/23 23:17 [From Entex LA] pravastatin AdvReac Unknown unknown Verified 07/15/23 23:17 quinapril [From Accupril] AdvReac Unknown Unknown Verified 07/15/23 23:17 rofecoxib [From Vioxx] AdvReac Unknown unknown Verified 07/15/23 23:17 simvastatin AdvReac Unknown Unknown Verified 07/15/23 23:17 Sulfa (Sulfonamide AdvReac Unknown Diarrhea Verified 07/15/23 23:17 Antibiotics) tramadol AdvReac Unknown unknown Verified 07/15/23 23:17 celecoxib [From Celebrex] AdvReac Nausea/Vom/ Verified 07/15/23 23:17 Diarrhea fluoxetine HCl [From Prozac] AdvReac Other Verified 07/15/23 23:17 isosorbide AdvReac Other Verified 07/15/23 23:17 metformin AdvReac Nausea/Vom/ Verified 07/15/23 23:17 Diarrhea Family History Mother CVA (cerebral vascular accident) Diabetes Heart disease Father CVA (cerebral vascular accident) Diabetes Heart disease 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 Surgical History H/O partial nephrectomy History of appendectomy History of cholecystectomy History of hysterectomy History of incision and drainage History of knee replacement History of shoulder surgery S/P placement of cardiac pacemaker Social History household members: spouse Smoking Status: Never smoker alcohol intake: never substance use type: does not use ROS ROS ED Constitutional Constitutional ED: Denies chills or fever(s) Eyes Eyes: Denies discharge from eye(s) ENT ENT ED: Denies discharge from eye(s), rhinorrhea or sore throat Cardiovascular Cardiovascular: Denies chest pain Respiratory/Chest Respiratory/Chest: Denies cough or dyspnea Gastrointestinal Gastrointestinal: Denies abdominal pain, nausea or vomiting Musculoskeletal Musculoskeletal: Denies back pain, extremity pain or neck pain Integumentary Reports Abrasions; Denies rash Neurologic Neurologic: Denies headache(s) or weakness Psychiatric Psychiatric: Denies anxiety or depression Allergic/Immunologic Allergic/Immunologic ED: Denies lip swelling or urticaria EXAM Physical Exam Const Vital Signs: 07/15/23 23:17 07/15/23 23:58 Temperature 97 F L Temperature Source Temporal Pulse Rate 65 Respiratory Rate 14 Respiratory Effort Normal Respiratory Depth Normal Respiratory Pattern Normal Blood Pressure 145/99 H Blood Pressure Mean 114 Pulse Ox 97 Oxygen Delivery Method Room Air Room Air Positive well nourished and well developed General Appearance ED: well developed HEENT Reports moist mucous membranes HEENT Narrative: 3 cm long abrasion noted to the right mosque. No active bleeding at this time. No surrounding hematoma. Eyes EOMs intact bilaterally Neck Neck Narrative: No C-spine tenderness. Chest Wall inspection of chest normal and palpation of chest normal Resp normal respiratory effort and clear to auscultation bilaterally Cardio regular rate and regular rhythm GI non-tender Palpation: soft Extremity normal to inspection Neuro oriented x3 and no sensory deficits noted Motor Exam: strength 5/5 throughout Psych mental status grossly normal Skin no rashes or lesions noted MDM MDM MDM Narrative Medical decision making narrative: CT scan of the head and C-spine obtained from triage after discussion with physician. Patient does report her tetanus is up-to-date. Her INR will be checked tonight. Wound on the scalp will be cleansed and sealed with Dermabond. Lab Data Labs: Laboratory Results - last 24 hr 07/16/23 00:05 PT 20.4 H INR 1.8 Radiography Diagnostic Testing: Clinical Impression(s) from Imaging Studies Brain CT 07/15/23 23:22 IMPRESSION: 1. No evidence of acute intracranial pathology. 2. Diffuse involutional changes and chronic ischemic small vessel white matter disease. AIDOC was utilized to assist in identifying pertinent positive findings. Electronically Signed: Timothy Kapoor MD at 0:22 EDT , Cervical Spine CT 07/15/23 23:22 IMPRESSION: 1. No evidence of acute or healing fracture or malalignment. 2. Bilateral indeterminate thyroid nodules can be further investigated with dedicated thyroid ultrasound. 3. AIDOC was utilized to assist in identifying pertinent positive findings. Electronically Signed: Timothy Kapoor MD at 0:19 EDT , Treatment and Re-Evaluation :: CT scan of the brain reveals no acute intracranial pathology. CT the C-spine reveals no evidence of fracture or malalignment. INR is slightly subtherapeutic at 1.8. Test results were discussed with the patient. She states on Tuesday, Tuesday, and Tuesday she takes 5 mg of Coumadin and it is now Tuesday evening. The rest of the week she only takes 2.5 mg. Given that she is going into her higher dose over the next 3 days I will not adjust her Coumadin at this time. She is to follow-up next week for repeat INR check. Patient comfortable with the plan. Discharge Plan Triage Chief Complaint: Head Injury ED Provider: Bonnie Ramirez Dx/Rx/DC Orders Clinical Impression: Abrasion of scalp, Closed head injury, Fall Instructions: ED Scalp Contusion, ED Head Injury (Adult) Prescriptions: No Action promethazine 12.5 mg tablet 12.5 mg PO Q6H PRN hydrocortisone [Anusol-HC] 2.5 % cream with perineal applicator 1 applic SC QD-BID PRN rosuvastatin 20 mg tablet 20 mg PO QHS Qty: 90 3RF acetaminophen 325 MG tablet 1,000 mg PO QHS Patient Comments: pain control loratadine 10 MG tablet 10 mg PO QHS 30 Days 0RF warfarin 2.5 MG tablet 5 mg PO SUMOWE Protocol: Dose Management Condition: Tuesday Dose/Route: 5 mg Instruction: 1 x 5 mg tablet Condition: Tuesday Dose/Route: 2.5 mg Instruction: 1 x 2.5 mg tablet Condition: Tuesday Dose/Route: 2.5 mg Instruction: 1 x 2.5 mg tablet Condition: Tuesday Dose/Route: 2.5 mg Instruction: 1 x 2.5 mg tablet Condition: Dose/Route: 2.5 mg Instruction: 1 x 2.5 mg tablet Condition: Tuesday Dose/Route: 5 mg Instruction: 1 x 5 mg tablet Condition: Tuesday Dose/Route: 5 mg Instruction: 1 x 5 mg tablet Protocol Text: Adjustment Start Date: Tuesday06/08/23 INR Value: 2.6 INR Date: 06/08/23 Recheck Date: 07/08/23 Rx Instructions: QHS glipizide 5 MG tablet 5 mg PO BID Patient Comments: TAKE 1 TABLET BY MOUTH TWICE DAILY Rx Instructions: 10 IN THE AM, 5 MG AT NIGHT warfarin 5 mg tablet 2.5 mg PO TUTHSA Protocol: Dose Management Condition: Tuesday Dose/Route: 5 mg Instruction: 1 x 5 mg tablet Condition: Tuesday Dose/Route: 2.5 mg Instruction: 1 x 2.5 mg tablet Condition: Tuesday Dose/Route: 2.5 mg Instruction: 1 x 2.5 mg tablet Condition: Tuesday Dose/Route: 2.5 mg Instruction: 1 x 2.5 mg tablet Condition: Dose/Route: 2.5 mg Instruction: 1 x 2.5 mg tablet Condition: Tuesday Dose/Route: 5 mg Instruction: 1 x 5 mg tablet Condition: Tuesday Dose/Route: 5 mg Instruction: 1 x 5 mg tablet Protocol Text: Adjustment Start Date: Tuesday06/08/23 INR Value: 2.6 INR Date: 06/08/23 Recheck Date: 07/08/23 losartan 25 mg Tablet 12.5 mg PO DAILY Qty: 30 2RF Rx Instructions: Hold for SBP less than 130 mmHg multivitamin [Daily Multi-Vitamin] Tablet 1 tab PO DAILY docusate sodium [Colace] 100 mg capsule 200 mg PO QHS metoprolol tartrate 50 mg tablet 50 mg PO BID Qty: 180 3RF Primary Care Provider: Alexys Tracy Referrals: Alexys Tracy MD [Primary Care Provider] - 1 Week Disposition Disposition: Home, Self Care
[2023-07-16 00:36] LABS: International Normalized Ratio 1.8; Prothrombin Time (Protime)PT. 20.4 SECONDS (11.7-14.9)
[2023-07-16 01:17] VITALS: BP 140/52; PULSE 73; RESP 16; O2SAT 99
[2023-07-16 01:31] VITALS: BP 130/64; PULSE 76; RESP 19; TEMP 36.6; O2SAT 100
== END 2023-07-16 01:41 | disposition home or self-care (01) ==
PROVIDERS: Emergency Provider Emergency Medicine; PCP Family Medicine; Visit Provider Emergency Medicine
DX: S00.01XA Abrasion of scalp, initial encounter (principal); I48.0 Paroxysmal atrial fibrillation; E11.22 Type 2 diabetes mellitus with diabetic chronic kidney disease; N18.31 Chronic kidney disease, stage 3a; Z79.01 Long term (current) use of 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; J45.909 Unspecified asthma, uncomplicated; E78.5 Hyperlipidemia, unspecified; I12.9 Hypertensive chronic kidney disease with stage 1 through stage 4 chronic kidney disease, or unspecified chronic kidney disease; W10.9XXA Fall (on) (from) unspecified stairs and steps, initial encounter
CPT/HCPCS: 12002; 70450; 72125; 85610; 99284

== ENCOUNTER 2023-07-29 13:54 | Outpatient (RCR) | payer MEDICARE, SELFPAY ==
[2023-07-29 15:28] LABS: International Normalized Ratio 2.2; Prothrombin Time (Protime)PT. 23.9 SECONDS (11.7-14.9)
== END 2023-08-05 18:00 | disposition home or self-care (01) ==
LOC: MTLAB 13:54
PROVIDERS: PCP Family Medicine; Referring Provider Physician Assistant Medical; Visit Provider Physician Assistant Medical
DX: I48.0 Paroxysmal atrial fibrillation (principal); Z79.01 Long term (current) use of 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
CPT/HCPCS: 36415; 85610

== ENCOUNTER → 2023-07-29 | Outpatient (CLI) | payer MEDICARE, SELFPAY ==
--- NOTE | 2023-07-29 13:44 | RAD_ITS ---
STUDY: X-RAY - PELVIS AND LEFT HIP REASON FOR EXAM: Female, 73 years old. Hip pain. TECHNIQUE: 3 views of the pelvis and left hip. COMPARISON: Pelvis and right hip radiographs dated 01/17/2023. FINDINGS: There is a non-specific bowel gas pattern. There are multiple calcified phleboliths. Normal bilateral iliac wings, sacroiliac joints and visualized sacrum. Normal bilateral superior and inferior pubic rami. Normal pubic symphysis. Normal bilateral ischial tuberosities. There is stable minimal degenerative arthrosis of the hip joints bilaterally. There is no demonstrated acute fracture. There is a partially visualized intramedullary aditya in the right proximal femoral shaft. RAD/HIP, UNI W/ Pelvis 2-3 Views IMPRESSION: Stable minimal degenerative arthrosis of the hip joints bilaterally. No demonstrated acute fracture. Electronically Signed: Vincent Carroll MD at 16:06 EDT ,
== END | disposition home or self-care (01) ==
PROVIDERS: PCP Family Medicine; Referring Provider Nurse Practitioner; Visit Provider Nurse Practitioner
DX: R30.0 Dysuria (principal); M25.552 Pain in left hip
CPT/HCPCS: 73502; 87086; 87088

== ENCOUNTER 2023-08-12 14:33 | Outpatient (RCR) | payer MEDICARE, SELFPAY ==
[2023-08-12 15:53] LABS: Prothrombin Time (Protime)PT. 22.7 SECONDS (11.7-14.9)
== END 2023-08-12 18:00 | disposition home or self-care (01) ==
LOC: MTLAB 14:33
PROVIDERS: PCP Family Medicine; Referring Provider Physician Assistant Medical; Visit Provider Physician Assistant Medical
DX: I48.0 Paroxysmal atrial fibrillation (principal); Z79.01 Long term (current) use of 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
CPT/HCPCS: 36415; 85610

== ENCOUNTER 2023-09-20 13:51 | Outpatient (RCR) | payer MEDICARE, SELFPAY ==
[2023-09-20 14:55] LABS: International Normalized Ratio 2.3; Prothrombin Time (Protime)PT. 25.5 SECONDS (11.7-14.9)
== END 2023-10-05 18:00 | disposition home or self-care (01) ==
LOC: MTLAB 13:51
PROVIDERS: PCP Family Medicine; Referring Provider Physician Assistant Medical; Visit Provider Physician Assistant Medical
DX: I48.0 Paroxysmal atrial fibrillation (principal); Z79.01 Long term (current) use of 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
CPT/HCPCS: 36415; 85610

== ENCOUNTER 2023-11-03 15:15 | Outpatient (RCR) | payer MEDICARE, SELFPAY ==
[2023-11-03 16:22] LABS: International Normalized Ratio 2.5; Prothrombin Time (Protime)PT. 26.5 SECONDS (11.7-14.9)
== END 2023-11-03 18:00 | disposition home or self-care (01) ==
LOC: LAB 15:15
PROVIDERS: PCP Family Medicine; Referring Provider Physician Assistant Medical; Visit Provider Physician Assistant Medical
DX: I48.0 Paroxysmal atrial fibrillation (principal); Z79.01 Long term (current) use of 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
CPT/HCPCS: 36415; 85610

== ENCOUNTER 2024-01-30 14:22 | Outpatient (RCR) | payer MEDICARE, SELFPAY ==
[2024-01-30 15:06] LABS: International Normalized Ratio 2.5; Prothrombin Time (Protime)PT. 26.7 SECONDS (11.7-14.9)
== END 2024-02-04 18:00 | disposition home or self-care (01) ==
LOC: LAB 14:22
PROVIDERS: PCP Family Medicine; Referring Provider Physician Assistant Medical; Visit Provider Physician Assistant Medical
DX: I48.0 Paroxysmal atrial fibrillation (principal); Z79.01 Long term (current) use of 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
CPT/HCPCS: 36415; 85610

== ENCOUNTER 2024-03-29 13:38 | Outpatient (RCR) | payer MEDICARE, SELFPAY ==
[2024-03-29 14:32] LABS: International Normalized Ratio 1.9; Prothrombin Time (Protime)PT. 21.8 SECONDS (11.7-14.9)
== END 2024-03-29 18:00 | disposition home or self-care (01) ==
LOC: LAB 13:38
PROVIDERS: PCP Family Medicine; Referring Provider Physician Assistant Medical; Visit Provider Physician Assistant Medical
DX: I48.0 Paroxysmal atrial fibrillation (principal); Z79.01 Long term (current) use of 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

== ENCOUNTER 2024-05-02 15:00 | Outpatient (RCR) | payer MEDICARE, SELFPAY ==
[2024-05-02 16:08] LABS: International Normalized Ratio 2.2; Prothrombin Time (Protime)PT. 24.7 SECONDS (11.7-14.9)
== END 2024-05-04 18:00 | disposition home or self-care (01) ==
LOC: LAB 15:00
PROVIDERS: PCP Family Medicine; Referring Provider Physician Assistant Medical; Visit Provider Physician Assistant Medical
DX: I48.0 Paroxysmal atrial fibrillation (principal); Z79.01 Long term (current) use of 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
CPT/HCPCS: 36415; 85610

== ENCOUNTER → 2024-05-11 | Outpatient (CLI) | payer MEDICARE, SELFPAY ==
--- NOTE | 2024-05-11 07:49 | CDU_ITS ---
Reason For Study Reason For Study: Dizziness Rt. Velocities/BP Lt. Velocities/BP Prox CCA 76.8/14.5 cm/sec. Prox CCA 91.2/7.7 cm/sec. Mid CCA 74.9/23 cm/sec. Mid CCA 59.7/5.8 cm/sec. Dist CCA 73/23 cm/sec. Dist CCA 41.9/4.1 cm/sec. Prox ICA 94.9/31.1 cm/sec. Left ICA known occlusion. Mid ICA 141.2/46.8 cm/sec. Prox ECA 176.3/11.6 cm/sec. Dist ICA 149.9/38 cm/sec. Lt. Vert. 54.1/12.6 cm/sec. Rt. ICA/CCA = 2.00. Prox ECA 135.7 cm/sec. Rt. Vert. 54.4/13.9 cm/sec. Right Extracranial There is intimal thickening but no significant atherosclerotic plaque noted in the right common carotid artery. There is heterogeneous, irregular atherosclerotic plaque noted in the right internal carotid artery. There is heterogeneous, irregular atherosclerotic plaque noted in the right external carotid artery. Antegrade flow is noted in the right vertebral artery. Left Extracranial There is heterogeneous, irregular atherosclerotic plaque noted in the left common carotid artery. There is heterogeneous, irregular atherosclerotic plaque noted in the left internal carotid artery. The left internal carotid artery is occluded. There is heterogeneous, irregular atherosclerotic plaque noted in the left external carotid artery. Antegrade flow is noted in the left vertebral artery. Procedure Carotid Duplex 00149. This is a Carotid Duplex examination using B-mode, color flow and specral Doppler. Exam performed in department. VL/Carotid Duplex Ultrasound Interpretation Summary Moderate (50-69%) stenosis right extracranial internal carotid. 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 Patent and antegrade vertebrals bilaterally. Ordering Physician: Chago Dodge Referring Physician: MD Alexys Tracy Performed By: Sandrine Lunsford RVT
== END | disposition home or self-care (01) ==
PROVIDERS: PCP Family Medicine; Referring Provider Internal Medicine Cardiovascular Disease; Visit Provider Internal Medicine Cardiovascular Disease
DX: R42 Dizziness and giddiness (principal)
CPT/HCPCS: 93880

== ENCOUNTER 2024-05-13 23:41 | Emergency (ER) | payer MEDICARE, SELFPAY ==
[2024-05-13 23:42] VITALS: BP 150/58; PULSE 82; RESP 16; TEMP 38.3; O2SAT 93; BMI 36.7
--- NOTE | 2024-05-13 23:43 | EX.ED.DYSGE1 ---
HPI History of Present Illness Chief Complaint: General Illness [facility] Medical History (Updated 05/14/24 @ 01:[address] Alexis Copeland, DO) HLD (hyperlipidemia) Cancer of kidney Cirrhosis of liver not due to alcohol Goiter Depression History of renal carcinoma Stage 3a chronic kidney disease (CKD) Bilateral carotid artery stenosis (10/27/20) Complete heart block Thrombosed external hemorrhoid Osteoporosis Cancer Irregular heart beat DVT (deep venous thrombosis) TIA (transient ischemic attack) Rectal pain Chronic anemia Obesity PAF (paroxysmal atrial fibrillation) Asthma Diabetes Hemorrhoids Arthritis Hypertension VTE (venous thromboembolism) CVA (cerebral vascular accident) Home Medications ?Medication ?Instructions ?Recorded ?Last Taken ?Type acetaminophen 325 mg tablet 1,000 mg PO QHS 06/26/16 06/29/16 History 1000 mg loratadine 10 mg tablet 10 mg PO QHS 30 days 07/23/16 Unknown Rx docusate sodium 100 mg capsule 200 mg PO QHS 01/21/23 Unknown History (Colace) multivitamin (Daily Multi-Vitamin 1 tab PO DAILY 01/21/23 Unknown History tablet) hydrocortisone 2.5 % topical cream 1 applic RI QD-BID PRN 02/04/23 Unknown History with perineal applicator (Anusol-HC) promethazine 12.5 mg tablet 12.5 mg PO Q6H PRN 02/04/23 Unknown History losartan 25 mg tablet 12.5 mg (1/2 x 25 mg) PO DAILY #45 08/15/23 Unknown Rx tabs warfarin 2.5 mg tablet 2.5 mg PO .COMPLEX #180 tabs 01/30/24 Unknown Rx metoprolol tartrate 50 mg tablet 50 mg PO BID #180 tabs 02/24/24 Unknown Rx rosuvastatin 20 mg tablet 20 mg PO QHS #90 tabs 03/13/24 Unknown Rx glipizide 10 mg tablet, extended 10 mg PO BID 04/18/24 Unknown History release 24 hr ondansetron 4 mg disintegrating 4 mg PO Q8H PRN PRN Nausea #10 tabs 05/14/24 Unknown Rx tablet Allergy/AdvReac Type Severity Reaction Status Date / Time simvastatin Allergy Severe Unknown Verified 04/18/24 13:48 etodolac AdvReac Intermediate GI upset Verified 04/18/24 13:48 gabapentin AdvReac Intermediate dizziness Verified 04/18/24 13:48 NSAIDS (Non-Steroidal AdvReac Intermediate GI upset Verified 04/18/24 13:48 Anti-Inflamma sulfamethoxazole AdvReac Intermediate Sulfa Verified 04/18/24 13:48 drugs GI upset sulfametrole AdvReac Intermediate GI upset Verified 04/18/24 13:48 valdecoxib (From Bextra) AdvReac Intermediate GI upset Verified 04/18/24 13:48 atorvastatin AdvReac Unknown unknown Verified 04/18/24 13:48 codeine AdvReac Unknown unknown Verified 04/18/24 13:48 guaifenesin (From Entex [place]) AdvReac Unknown unknown Verified 04/18/24 13:48 hydrocodone AdvReac Unknown unknown Verified 04/18/24 13:48 naproxen (From Naprosyn) AdvReac Unknown unknown Verified 04/18/24 13:48 phenylephrine (From Entex [place]) AdvReac Unknown unknown Verified 04/18/24 13:48 phenylpropanolamine (From AdvReac Unknown unknown Verified 04/18/24 13:48 Entex [place]) pravastatin AdvReac Unknown unknown Verified 04/18/24 13:48 quinapril (From Accupril) AdvReac Unknown Unknown Verified 04/18/24 13:48 rofecoxib (From Vioxx) AdvReac Unknown unknown Verified 04/18/24 13:48 Sulfa (Sulfonamide AdvReac Unknown Diarrhea Verified 04/18/24 13:48 Antibiotics) tramadol AdvReac Unknown unknown Verified 04/18/24 13:48 celecoxib (From Celebrex) AdvReac Nausea/Vom/ Verified 04/18/24 13:48 Diarrhea fluoxetine HCl (From Prozac) AdvReac Other Verified 04/18/24 13:48 isosorbide AdvReac Other Verified 04/18/24 13:48 metformin AdvReac Nausea/Vom/ Verified 04/18/24 13:48 Diarrhea Family History Mother CVA (cerebral vascular accident) Diabetes Heart disease Father CVA (cerebral vascular accident) Diabetes Heart disease 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 Surgical History S/P placement of cardiac pacemaker History of incision and drainage H/O partial nephrectomy History of hysterectomy History of knee replacement History of cholecystectomy History of shoulder surgery History of appendectomy Social History household members: spouse Smoking Status: Never smoker alcohol intake: never substance use type: does not use EXAM Physical Exam Const Vital Signs: 05/13/24 23:42 05/13/24 23:46 05/14/24 00:09 Temperature 100.9 F H 100.9 F H Temperature Source Oral Oral Pulse Rate 82 79 Respiratory Rate 16 16 Respiratory Effort Short of Breath Respiratory Pattern Normal Blood Pressure 150/58 H 150/58 H Blood Pressure Mean 88 88 Pulse Ox 93 93 Oxygen Delivery Method 05/14/24 00:46 05/14/24 02:00 Temperature 99.2 F H 99.1 F Temperature Source Oral Pulse Rate 69 66 Respiratory Rate 23 H 12 Respiratory Effort Respiratory Pattern Blood Pressure 135/78 H 145/70 H Blood Pressure Mean 97 95 Pulse Ox 92 100 Oxygen Delivery Method Room Air MDM MDM MDM Narrative Medical decision making narrative: HISTORY OF PRESENT ILLNESS: 74-year-old female history of hyperlipidemia, CKD 3, nonalcoholic liver cirrhosis, renal cell carcinoma, DVT, complete heart block status post pacemaker, type 2 diabetes, atrial fibrillation (on warfarin), hypertension presents with concern for flulike symptoms. Notes this began Tuesday night (2 days ago). Notes acute onset of nausea vomiting diarrhea. No sick contacts. The patient further states she is experienced some intermittent chest discomfort but denies chest pain at this time. Notes some shortness of breath with exertion. Denies leg swelling. Denies focal weakness. Does note vomitus that started today. Notes right sided abdominal pain. Notes history of multiple abdominal surgeries. REVIEW OF SYSTEMS: Pertinent positives: Flulike symptoms Pertinent negatives: Chest PHYSICAL EXAM: Nursing triage notes reviewed, Vital signs reviewed Constitutional: please see mdm HENT: MMM Eyes: Pupils equal round and reactive to light, Extraocular muscles intact Neck: No stridor, no JVD, full neck ROM Lungs: Clear to auscultation, No wheezing or rales. No increased work of breathing, no conversational dyspnea, no accessory muscle use, no nasal flaring. No respiratory distress noted Heart: Regular rate and rhythm, No murmurs, No rubs and No gallops, 2+ distal pulses (radial, femoral, posterior tibial) in all extremities Abdomen: Soft, there is no tenderness, rigidity, rebound or guarding, no obvious peritoneal signs, no palpable pulsatile abdominal masses, no auscultated abdominal bruit : No CVAT Extremities: No edema Neuro: No new focal neurological deficits, cranial nerves II through XII intact, 5/5 strength in all present extremities. Intact sensation to light touch in all present extremities, 2+ reflexes bilateral patella tendons. Skin: No rash or lesions noted MEDICAL DECISION MAKING: Chief Complaint: Foot symptoms External records reviewed: Prior imaging reviewed Factors affecting care: As per HPI Social determinants of health: none History obtained from others: none Consults: none [facility] Narrative: The patient was initially hemodynamically stable, febrile with a temperature of 100.9 and saturating 93% on room air. Exam without focal cardiopulmonary abnormalities. I considered the following differential diagnosis: COVID/flu/RSV, pneumonia ALL IMAGES (IF OBTAINED) HAVE BEEN PERSONALLY REVIEWED AND INTERPRETED BY MYSELF. EKG with paced rhythm, left axis deviation, prolonged QTc (511), no obvious STEMI or arrhythmia CBC with no leukocytosis, mild anemia, no thrombocytopenia BMP without significant electrolyte abnormalities. There is noted metabolic acidosis and elevated anion gap (of note every patient has a low bicarb and elevated anion gap secondary to recent lab changes I suspect is a lab error). Do not suspect this is indicative of a severe infectious process Lipase is wnl indicating no pancreatic inflammation. LFTs show no evidence of hepatobiliary pathology. High-sensitivity troponin is negative, no evidence of myocardial ischemia COVID/flu/RSV returned with influenza A positive. Upon reassessment patient's fever improved. She is able to ambulate in the ED without significant hypoxia. Patient was able tolerate p.o. here in the emergency department. The likely etiology of patient's symptoms likely influenza A. While I considered prescribing Tamiflu I thought this may make the patient symptoms worse given her presentation with nausea and vomiting. I did prescribe Reglan for nausea vomiting trial at home. The patient and/or family, caregivers express understanding. The patient and/or family, caregivers agrees with the plan. Shared decision making: I will have a discussion with the patient and or visitors regarding risk/benefits of further testing or admission. They will be made aware of of the risk/benefits inherent in this decision they will be given the opportunity to voice understanding. Total critical care time today provided was at least 0 minutes. This excludes separately billable procedures. Critical care time (if documented) is secondary to the patient having high probability of clinically significant/life threatening deterioration in the patient's condition which required my urgent intervention. Impression: 1. Influenza A 2. Acute nausea vomiting diarrhea Dispo: Discharge home This note was generated with [employer] dictation software. It may contain incorrect words, spelling, and punctuation that were not noted in review of the chart prior to signing. Lab Data Labs: Laboratory Results - last 24 hr 05/14/24 00:02 WBC 7.6 RBC 4.24 Hgb 11.9 L Hct 35.7 L MCV 84.2 MCH 28.1 MCHC 33.3 RDW Std Deviation 43.3 RDW Coeff of Rukhsana 14.1 Plt Count 158 MPV 11.8 Sodium 135 Potassium 4.4 Chloride 101 Carbon Dioxide 18.6 L Anion Gap 16 H BUN 17 Creatinine 1.09 Estim Creat Clear Calc 49.64 L Est GFR (MDRD) Non-Af 53 L BUN/Creatinine Ratio 15.4 Glucose 212 H Calcium 9.4 Total Bilirubin 0.65 AST 75 H ALT 35 Alkaline Phosphatase 85 Troponin T High Sens 14 Total Protein 7.6 Albumin 3.9 Globulin 3.7 Albumin/Globulin Ratio 1.1 Lipase 66 Radiography Diagnostic Testing: Clinical Impression(s) from Imaging Studies Abdomen/Pelvis CT 05/13/24 23:59 IMPRESSION: No evidence of acute intra-abdominal process. Nodular liver contour surface suggests underlying cirrhosis. Status post cholecystectomy. One or more dose reduction techniques were used (e.g., Automated exposure control, adjustment of the mA and/or kV according to patient size, use of iterative reconstruction technique). Reading Location: [facility] Chest X-Ray 05/14/24 00:02 IMPRESSION: No evidence of acute cardiopulmonary disease. Interval placement of material combiner pacemaker now present. Reading Location: [facility] Discharge Plan Triage Chief Complaint: General Illness ED Provider: Alexis Copeland Dx/Rx/DC Orders Clinical Impression: Influenza A Instructions: ED Influenza (Adult) Prescriptions: New ondansetron 4 mg tablet,disintegrating 4 mg PO Q8H PRN PRN (Reason: Nausea) Qty: 10 0RF No Action promethazine 12.5 mg tablet 12.5 mg PO Q6H PRN hydrocortisone [Anusol-HC] 2.5 % cream with perineal applicator 1 applic RI QD-BID PRN glipizide 10 mg tablet extended release 24hr 10 mg PO BID acetaminophen 325 MG tablet 1,000 mg PO QHS Patient Comments: pain control loratadine 10 MG tablet 10 mg PO QHS 30 Days 0RF multivitamin [Daily Multi-Vitamin] Tablet 1 tab PO DAILY docusate sodium [Colace] 100 mg capsule 200 mg PO QHS losartan 25 mg tablet 12.5 mg PO DAILY Qty: 45 3RF Rx Instructions: Hold for SBP less than 130 mmHg warfarin 2.5 mg tablet 2.5 mg PO .COMPLEX Qty: 180 3RF Protocol: Dose Management Condition: Tuesday Dose/Route: 5 mg Instruction: 2 x 2.5 mg tablets Condition: Tuesday Dose/Route: 2.5 mg Instruction: 1 x 2.5 mg tablet Condition: Tuesday Dose/Route: 2.5 mg Instruction: 1 x 2.5 mg tablet Condition: Tuesday Dose/Route: 2.5 mg Instruction: 1 x 2.5 mg tablet Condition: Dose/Route: 2.5 mg Instruction: 1 x 2.5 mg tablet Condition: Tuesday Dose/Route: 5 mg Instruction: 2 x 2.5 mg tablets Condition: Tuesday Dose/Route: 5 mg Instruction: 2 x 2.5 mg tablets Protocol Text: Adjustment Start Date: Tuesday05/02/24 INR Value: 2.2 INR Date: 05/02/24 Recheck Date: 06/01/24 Rx Instructions: 2.5 mg orally 1 tablet (2.5 mg) on Tuesday, Tuesday, Tuesday, and ; 2 tablets together to = 5mg on Tuesday, Tuesday and Tuesday at bedtdime; dose changes often, please give extra tablets metoprolol tartrate 50 mg tablet 50 mg PO BID Qty: 180 3RF rosuvastatin 20 mg tablet 20 mg PO QHS Qty: 90 3RF Primary Care Provider: Alexys Tracy Referrals: Alexys Tracy MD [Primary Care Provider] - Activity Restrictions/Additional Instructions: Thank you for trusting us with your care today! Your labs images were consistent with influenza A. While you are within the window for an antiflu medicine called Tamiflu it does cause nausea and vomiting I think would make your symptoms worse rather than better in the situation. Influenza typically resolves in 7 to 14 days. Please take Zofran as needed for nausea and vomiting. Please take Tylenol (2 pills, 650 mg), ibuprofen (2 pills, 400 mg) every 6 hours as needed for pain and fever control. Please return to the emergency department if your symptoms change or worsen. Specifically develop worsening shortness of breath, chest pain or if you lose consciousness. Please follow with your primary care physician for further outpatient evaluation and management. Print Language: Iraqi Disposition Disposition: Home, Self Care Discharge Date/Time: 05/14/24 02:00
[2024-05-13 23:46] VITALS: BP 150/58; PULSE 79; RESP 16; TEMP 38.3; O2SAT 93
--- NOTE | 2024-05-13 23:59 | EKG12_ITS ---
Test Reason : DYSRHYTHMIA Blood Pressure : */* mmHG Vent. Rate : 73 BPM Atrial Rate : 73 BPM P-R Int : 228 ms QRS Dur : 166 ms QT Int : 464 ms P-R-T Axes : 58 -70 82 degrees QTcB Int : 511 ms Atrial-sensed ventricular-paced rhythm with prolonged AV conduction Abnormal ECG Confirmed by Chago Dodge ([id number]), multimedia editor ADA LINTON ([id number]) on 05/14/2024 10:52:46 AM Referred By: NICOLAS Confirmed By: Chago Dodge
--- NOTE | 2024-05-13 23:59 | CT_ITS ---
PROCEDURE: ABDOMEN/PELVIS WITHOUT CONT REASON FOR EXAM: Abdominal pain TECHNIQUE: Abdomen and pelvis CT without intravenous contrast. Coronal and sagittal reformatted images COMPARISON: None. FINDINGS: Noncontrast technique limits evaluation of the abdominal and pelvic viscera. Lung bases: Clear scar atelectasis in the lingula. Pacemaker. Liver: Nodular liver surface contour suggesting underlying cirrhosis. Gallbladder: Status post cholecystectomy. Spleen: Unremarkable. Pancreas: Unremarkable. Adrenals: Unremarkable. Kidneys: Staple line at the lower pole/portion of the right kidney limited evaluation on noncontrast study. No obvious mass identified. May correlate with prior imaging when available and follow-up as warranted. No renal stones or hydronephrosis. Exophytic 5.5 cm left renal cyst.. Bladder: Unremarkable. Reproductive Organs: Unremarkable. Bowel: No bowel dilation, free air or free fluid.. Appendix: Not identified, no secondary signs. Lymph nodes: No suspicious lymph node enlargement. Vasculature: Major vascular structures are unremarkable. Aortoiliac atherosclerotic calcifications. Peritoneum / Retroperitoneum: No ascites. No free air. Bones: Pride artifact from partially imaged retrograde right femoral nail. CT/Abdomen/Pelvis without Cont IMPRESSION: No evidence of acute intra-abdominal process. Nodular liver contour surface suggests underlying cirrhosis. Status post sally cystectomy. One or more dose reduction techniques were used (e.g., Automated exposure contr ol, adjustment of the mA and/or kV according to patient size, use of iterative reconstruction technique). Reading Location: [id number]
--- NOTE | 2024-05-14 00:02 | RAD_ITS ---
PROCEDURE: CHEST 1 VIEW (PORTABLE) REASON FOR EXAM: Cough TECHNIQUE: Frontal view of the chest. COMPARISON: 01/14/2023 and 01/21/2023 FINDINGS: The lungs appear clear. There is now a coverstitch binder pacemaker present. The cardiac and mediastinal contours appear within limits. Atherosclerotic changes at the aortic arch again noted. No significant interval change in appearance of the osseous visualized osseous structures. RAD/Chest 1 View (Portable) IMPRESSION: No evidence of acute cardiopulmonary disease. Interval placement of coverstitch binder pacemaker now present. Reading Location: [id number]
[2024-05-14] MEDS: 0.9% Normal Saline (1000mL) 1,000 ML 1000 ML IV (00:06)
[2024-05-14] MEDS: Acetaminophen 325 MG Tablet 650 MG PO (00:06)
[2024-05-14] MEDS: Ketorolac 15 MG/ML Vial IV (00:06)
[2024-05-14 00:24] LABS: Hematocrit 35.7 % (37-47); Hemoglobin 11.9 g/dL (12.0-15.0); Mean Corp Hgb Conc 33.3 g/dL (32-36); Mean Corpuscular Hgb 28.1 pg (27.0-32.0); Mean Corpuscular Volume 84.2 fL (81-99); Mean Platelet Vol. 11.8 fl (6.2-12.0); Platelet Count 158 K/mm3 (150-450); RBC Distribution Width CV 14.1 % (11.6-14.6); RBC Distribution Width SD 43.3 fl (35.1-43.9); Red Blood Count 4.24 M/mm3 (4.2-5.4); White Blood Count 7.6 K/mm3 (4.4-11.0)
[2024-05-14 00:42] VITALS: O2SAT 95
[2024-05-14 00:46] VITALS: BP 135/78; PULSE 69; RESP 23; TEMP 37.3; O2SAT 92
[2024-05-14 01:22] LABS: Troponin T High Sensitivity 14 ng/L (<=14)
[2024-05-14 01:23] LABS: ALB/GLOB Ratio 1.1 RATIO (0.9-2.4); AST(SGOT) 75 U/L (<=31); Alanine Aminotransfer ALT/SGPT 35 U/L (<=34); Albumin, Serum 3.9 g/dL (3.4-4.8); Alkaline Phosphatase 85 U/L (35-104); Anion Gap 16 (5-15); BUN 17 mg/dL (4-19); BUN/Creat Ratio 15.4 RATIO (10-20); Calcium,Total 9.4 mg/dL (7.6-11.0); Carbon Dioxide 18.6 mmol/L (21.0-32.0); Chloride 101 mmol/L (98-108); Creatinine, Serum 1.09 mg/dL (0.70-1.20); EST Glomerular Filtration Rate 53 (>60); Estimated Creatinine Clearance 49.64 ml/min (50-250); Globulin 3.7 g/dL (2.2-4.2); Glucose 212 mg/dL (70-99); Lipase 66 U/L (13-75); Potassium 4.4 mmol/L (3.3-5.1); Protein, Total 7.6 g/dL (5.9-8.4); Sodium Level 135 mmol/L (133-145); Total Bilirubin 0.65 mg/dL (0.00-1.30)
[2024-05-14 02:00] VITALS: BP 145/70; PULSE 66; RESP 12; TEMP 37.3; O2SAT 100
== END 2024-05-14 02:00 | disposition home or self-care (01) ==
PROVIDERS: Emergency Provider Emergency Medicine; PCP Family Medicine; Visit Provider Emergency Medicine
DX: J10.1 Influenza due to other identified influenza virus with other respiratory manifestations (principal); I48.91 Unspecified atrial fibrillation; E11.22 Type 2 diabetes mellitus with diabetic chronic kidney disease; N18.31 Chronic kidney disease, stage 3a; E87.20 Acidosis, unspecified; Z86.718 Personal history of other venous thrombosis and embolism; I12.9 Hypertensive chronic kidney disease with stage 1 through stage 4 chronic kidney disease, or unspecified chronic kidney disease; E78.5 Hyperlipidemia, unspecified; J45.909 Unspecified asthma, uncomplicated; Z95.0 Presence of cardiac pacemaker; Z79.01 Long term (current) use of 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
CPT/HCPCS: 96361; 96374; 99285; 71045; 74176; 80053; 83690; 84484; 85027; 87631; 93005; A4216

== ENCOUNTER 2024-05-15 16:47 | Inpatient (IN) | payer MEDICARE, SELFPAY ==
[2024-05-15 16:48] VITALS: BP 130/54; PULSE 90; RESP 20; TEMP 36.6; O2SAT 95; BMI 35.0
--- NOTE | 2024-05-15 17:21 | EKG12_ITS ---
Test Reason : GENERAL Blood Pressure : */* mmHG Vent. Rate : 76 BPM Atrial Rate : 76 BPM P-R Int : 176 ms QRS Dur : 116 ms QT Int : 402 ms P-R-T Axes : 65 -16 18 degrees QTcB Int : 452 ms Poor data quality, interpretation may be adversely affected Normal sinus rhythm Left ventricular hypertrophy with QRS widening ( R in aVL , [place] product ) Abnormal ECG Confirmed by BARBARA BRYANT, RADHA ([id number]), editor producer SIMI DESAI ([id number]) on 05/21/2024 11:18:47 AM Referred By: Confirmed By: RADHA JIMENEZ MD
--- NOTE | 2024-05-15 17:25 | ED.VIS.GI ---
HPI <Noreen Ge RN - Last Filed: 05/15/24 21:27> HPI - GI History of Present Illness Chief Complaint: GI Bleed Detail of Chief Complaint: Black liquid stool x 2 at home Informant: patient Abdominal Pain/Flank Pain Onset: Days (3-4) Context: Gradual Onset Timing: Continuous Quality: Aching and Cramping Location: Diffuse Current Severity: 5/10 Maximum Severity: 5/10 Worsened by: Nothing Relieved by: Nothing Nausea/Vomiting/Emesis GI Symptom: Positive for Nausea Onset: Days (3-4) Severity: Mild Diarrhea/Melena/Hematochezia GI Symptom: Positive for Diarrhea and Melena (X 2 episodes today at home) Onset: Today Stool Quality: Positive for Loose and Black Severity: Mild Associated Symptoms Associated Symptoms: Positive for - (Decreased urination) Narrative Narrative: Patient is a 74-year-old female with past medical history significant for hyperlipidemia, A-fib on warfarin, stage IIIa CKD, hemorrhoids, diabetes type 2, GERD, nonalcoholic cirrhosis, and hypertension who presented to the ED for black liquid stool x 2 today. Patient seen in the ED on 05/13/2024 with nausea, vomiting, diarrhea, and intermittent chest discomfort for which she was diagnosed with influenza A. At that time she was not prescribed Tamiflu as there was concern that this may exacerbate her symptoms of nausea and vomiting. Patient reports she still has some dizziness and lightheadedness that caused her to fall on 05/13/2024 and 05/14/2024. Patient denies LOC. Patient continues to have fevers with Tmax today 100.6 for which patient is taking Tylenol with improvement. Patient also continues to have intermittent headaches, intermittent sinus pain, intermittent jaw pain, intermittent chest pain she describes as dull, stabbing, and worse with cough, nausea. Vomiting is resolved. She has a cough with productive pale yellow sputum. Patient does report she has decreased urination which she suspects is due to decreased p.o. intake. Today she had a sudden onset of black liquid, tarry stools x 2 episodes. She reports a history of hemorrhoids. However she reports bleeding with hemorrhoids is generally bright red. This seems different than hemorrhoidal bleeding. Patient denies sore throat, urinary frequency, hematuria. Patient does report she has not taken her medications in approximately 2 days due to not feeling well. Recent Illness/Hospitalization: Yes (Influenza A diagnosed 05/13/2024.) [facility] <Noreen Ge RN - Last Filed: 05/15/24 21:27> [facility] Medical History HLD (hyperlipidemia) Cancer of kidney Cirrhosis of liver not due to alcohol Goiter Depression History of renal carcinoma Stage 3a chronic kidney disease (CKD) Bilateral carotid artery stenosis (10/27/20) Complete heart block Thrombosed external hemorrhoid Osteoporosis Cancer Irregular heart beat DVT (deep venous thrombosis) TIA (transient ischemic attack) Rectal pain Chronic anemia Obesity PAF (paroxysmal atrial fibrillation) Asthma Diabetes Hemorrhoids Arthritis Hypertension VTE (venous thromboembolism) CVA (cerebral vascular accident) Home Medications ?Medication ?Instructions ?Recorded ?Last Taken ?Type acetaminophen 325 mg tablet 1,000 mg PO QHS 06/26/16 06/29/16 History 1000 mg loratadine 10 mg tablet 10 mg PO QHS 30 days 07/23/16 Unknown Rx docusate sodium 100 mg capsule 200 mg PO QHS 01/21/23 Unknown History (Colace) multivitamin (Daily Multi-Vitamin 1 tab PO DAILY 01/21/23 Unknown History tablet) hydrocortisone 2.5 % topical cream 1 applic [place] QD-BID PRN hemorrhoids 02/04/23 Unknown History with perineal applicator (Anusol-HC) promethazine 12.5 mg tablet 12.5 mg PO Q6H PRN nausea and 02/04/23 Unknown History vomiting losartan 25 mg tablet 12.5 mg (1/2 x 25 mg) PO DAILY #45 08/15/23 Unknown Rx tabs metoprolol tartrate 50 mg tablet 50 mg PO BID #180 tabs 02/24/24 Unknown Rx rosuvastatin 20 mg tablet 20 mg PO QHS #90 tabs 03/13/24 Unknown Rx glipizide 10 mg tablet, extended 10 mg PO BID 04/18/24 Unknown History release 24 hr ondansetron 4 mg disintegrating 4 mg PO Q8H PRN PRN Nausea #10 tabs 05/14/24 Unknown Rx tablet warfarin 2.5 mg tablet 2.5 mg PO MOTUWETH 05/15/24 Unknown History Held on 05/17/24. Instructions: Resume on 05/21/24. warfarin 5 mg tablet 5 mg PO .FRSASU 05/15/24 Unknown History Held on 05/17/24. Instructions: Resume on 05/20/24. pantoprazole 40 mg tablet,delayed 40 mg PO BID #60 tabs 05/17/24 Unknown Rx release sucralfate 1 gram tablet 1 g PO TIDAC #90 tabs 05/17/24 Unknown Rx Allergy/AdvReac Type Severity Reaction Status Date / Time simvastatin Allergy Severe Unknown Verified 05/15/24 16:48 etodolac AdvReac Intermediate GI upset Verified 05/15/24 16:48 gabapentin AdvReac Intermediate dizziness Verified 05/15/24 16:48 NSAIDS (Non-Steroidal AdvReac Intermediate GI upset Verified 05/15/24 16:48 Anti-Inflamma sulfamethoxazole AdvReac Intermediate Sulfa Verified 05/15/24 16:48 drugs GI upset sulfametrole AdvReac Intermediate GI upset Verified 05/15/24 16:48 valdecoxib (From Bextra) AdvReac Intermediate GI upset Verified 05/15/24 16:48 atorvastatin AdvReac Unknown unknown Verified 05/15/24 16:48 codeine AdvReac Unknown unknown Verified 05/15/24 16:48 guaifenesin (From Entex [place]) AdvReac Unknown unknown Verified 05/15/24 16:48 hydrocodone AdvReac Unknown unknown Verified 05/15/24 16:48 naproxen (From Naprosyn) AdvReac Unknown unknown Verified 05/15/24 16:48 phenylephrine (From Entex [place]) AdvReac Unknown unknown Verified 05/15/24 16:48 phenylpropanolamine (From AdvReac Unknown unknown Verified 05/15/24 16:48 Entex [place]) pravastatin AdvReac Unknown unknown Verified 05/15/24 16:48 quinapril (From Accupril) AdvReac Unknown Unknown Verified 05/15/24 16:48 rofecoxib (From Vioxx) AdvReac Unknown unknown Verified 05/15/24 16:48 Sulfa (Sulfonamide AdvReac Unknown Diarrhea Verified 05/15/24 16:48 Antibiotics) tramadol AdvReac Unknown unknown Verified 05/15/24 16:48 celecoxib (From Celebrex) AdvReac Nausea/Vom/ Verified 05/15/24 16:48 Diarrhea fluoxetine HCl (From Prozac) AdvReac Other Verified 05/15/24 16:48 isosorbide AdvReac Other Verified 05/15/24 16:48 metformin AdvReac Nausea/Vom/ Verified 05/15/24 16:48 Diarrhea Family History Mother CVA (cerebral vascular accident) Diabetes Heart disease Father CVA (cerebral vascular accident) Diabetes Heart disease 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 Constitutional Constitutional ED: Reports fever(s); Denies chills ENT ENT ED: Reports other Details: Nasal congestion and sinus pain ; Denies ear pain, rhinorrhea or sore throat Cardiovascular Cardiovascular: Reports chest pain and other Details: Generalized chest pain described as dull and stabbing and worse with coughing ; Denies orthopnea, palpitations or racing heartbeat Respiratory/Chest Respiratory/Chest: Reports cough, dyspnea on exertion, sputum and other Details: Pale yellow sputum ; Denies orthopnea Gastrointestinal Gastrointestinal: Reports abdominal pain, diarrhea, melena, nausea and other Details: Generalized abdominal pain ; Denies vomiting Genitourinary Genitourinary ED: Reports other Details: Decreased urination ; Denies dysuria or hematuria Musculoskeletal Musculoskeletal: Reports arthralgias, back pain and myalgias; Denies neck pain Integumentary Denies rash Neurologic Neurologic: Reports headache(s), weakness and other Details: Intermittent headache and generalized weakness ; Denies paresthesias Psychiatric Psychiatric: Denies anxiety or depression Endocrine Endocrinology: Denies polydipsia, polyphagia or polyuria Hematologic/Lymphatic Hematologic/Lymphatic: Reports easy bleeding and easy bruising EXAM <Noreen Ge RN - Last Filed: 05/15/24 21:27> Physical Exam Narrative Exam Narrative: Patient is awake and alert, laying on ED cot with at bedside. Patient is ill-appearing. No acute distress noted. Const Vital Signs: 05/15/24 16:48 05/15/24 18:47 05/15/24 20:00 Temperature 97.9 F Temperature Source Temporal Pulse Rate 90 77 Respiratory Rate 20 H 18 Blood Pressure 130/54 H 137/48 H 128/41 H Blood Pressure Mean 79 77 70 Pulse Ox 95 95 95 Oxygen Delivery Method Room Air Room Air Room Air 05/15/24 20:55 Temperature 98.4 F Temperature Source Pulse Rate 70 Respiratory Rate 18 Blood Pressure 138/60 H Blood Pressure Mean 86 Pulse Ox 97 Oxygen Delivery Method Positive well nourished and well developed General Appearance ED: well developed and NAD HEENT Reports TM's clear and moist mucous membranes HEENT Narrative: Frontal and maxillary sinus pressure with palpation. Jaw pain with palpation normocephalic and atraumatic Tympanic Membrane ED: Yes TM's clear Eyes PERRL and EOMs intact bilaterally Neck no lymphadenopathy and supple General: Negative for tenderness Chest Wall Chest Narrative: No chest wall pain with palpation. Resp normal respiratory effort and clear to auscultation bilaterally Effort and Inspection: Negative for respiratory distress Auscultation: Negative for rales, rhonchi or wheezes Cardio regular rate, regular rhythm, S1 normal heart sound, S2 normal heart sound and no murmurs GI Auscultation: normoactive bowel sounds Palpation: soft and tender LLQ, RLQ, LUQ, RUQ and other (Brown dried stool noted on buttocks) Narrative: Patient reports decreased urine output for which she feels is due to decreased p.o. intake. Denies hematuria, dysuria, and urinary frequency. Back/Spine no CVA tenderness Extremity full ROM Extremity Narrative: Mild chronic bilateral lower extremity edema. General Extremety ED: Yes edema General Extremity: edema Neuro CN's II-XII intact bilaterally, moves all extremities and no sensory deficits noted Sensorium / Orientation: alert, oriented to person, oriented to place and oriented to time Motor Exam: general weakness Psych mental status grossly normal and thought process normal Skin no wounds <Dr. Gallito Roberson MD - Last Filed: 05/18/24 23:57> Physical Exam Const Vital Signs: 05/15/24 16:48 05/15/24 18:47 05/15/24 20:00 Temperature 97.9 F Temperature Source Temporal Pulse Rate 90 77 Respiratory Rate 20 H 18 Blood Pressure 130/54 H 137/48 H 128/41 H Blood Pressure Mean 79 77 70 Pulse Ox 95 95 95 Oxygen Delivery Method Room Air Room Air Room Air 05/15/24 20:55 Temperature 98.4 F Temperature Source Pulse Rate 70 Respiratory Rate 18 Blood Pressure 138/60 H Blood Pressure Mean 86 Pulse Ox 97 Oxygen Delivery Method [facility] <Noreen Ge RN - Last Filed: 05/15/24 21:27> [facility] Narrative Medical decision making narrative: Given patient report of melena, I will order a CBC to evaluate for leukocytosis, BMP to evaluate for electrolyte imbalance, PT/INR to evaluate coagulopathy, type and screen, and Hemoccult. Due to decreased p.o. intake I will also order a normal saline bolus of 500 mL. Due to continued nausea I will also order Protonix 40 mg IV. I have personally performed a face to face assessment of the patient and have reviewed the [facility] Note. I performed a substantive portion of the visit including all aspects of the following. My clark findings include: History is 74-year-old female history of A-fib on Coumadin complaining of black stool today. Her and her said there was a large amount of black stool in the toilet. She has no prior history of GI bleed. She was diagnosed with influenza this past weekend. She denies any hematemesis. Exam is [well-appearing 74-year-old female. Vital signs are stable. She is afebrile. She does not look septic or toxic. Pulse ox 95% on room air no hypoxia. H EENT exam pupils round react light. Mytrex membranes. Neck nontender no JVD. Lungs coarse breath sounds. Dry cough. Equal symmetrical. No rales or rhonchi. No wheezing. Heart regular rhythm. Rate is 70s. Abdomen soft nontender. Moving all 4 extremities. Nontender no edema. She is awake and alert. Rectal exam external hemorrhoids. Not actively bleeding. She has black stool. Neurologically she is awake and alert. Answering questions following commands.] Medical Decision Making [74-year-old female status post influenza anticoagulated on Coumadin due to A-fib. Has a GI bleed. Was given IV Protonix. Hospitalist on page for admission.] Other additions or changes: [None] History & Record Review Discussion w/independent historian: Patient and Significant other Lab Data Attestation: I reviewed the patient's lab results. Labs: Laboratory Results - last 24 hr 05/15/24 05/15/24 17:15 17:30 WBC 7.2 RBC 4.16 L Hgb 11.5 L Hct 35.3 L MCV 84.9 MCH 27.6 MCHC 32.6 RDW Std Deviation 45.5 H RDW Coeff of Rukhsana 14.6 Plt Count 154 MPV 11.4 Immature Gran % (Auto) 0.400 Neut % (Auto) 67.4 Lymph % (Auto) 21.6 Limestone % (Auto) 10.2 H Eos % (Auto) 0.1 Baso % (Auto) 0.3 Absolute Neuts (auto) 4.8 Absolute Lymphs (auto) 1.55 Nucleated RBC % 0 PT 19.9 H INR 1.7 Sodium 135 Potassium 3.8 Chloride 100 Carbon Dioxide 21.2 Anion Gap 13 BUN 27 H Creatinine 1.23 H Estim Creat Clear Calc 42.94 L Est GFR (MDRD) Non-Af 46 L BUN/Creatinine Ratio 22.1 H Glucose 222 H Calcium 9.2 Total Bilirubin 0.67 AST 52 H ALT 26 Alkaline Phosphatase 68 Total Protein 7.1 Albumin 3.6 Globulin 3.5 Albumin/Globulin Ratio 1.0 Blood Type O POSITIVE Antibody Screen NEGATIVE EKG Initial EKG: Attestation: I personally reviewed and interpreted this EKG as follows: Interpretation: Sinus Rhythm Differential Diagnosis Differential Diagnosis: GI bleed Differential Diagnosis: Diverticulitis Management Discussion w/another healthcare provider: Other (Dr Roberson, ED Provider) Treatment and Re-Evaluation :: Upon reevaluation, patient remains awake and alert. Overall, she actually looks better than when she first came into the ED. Patient continues with generalized abdominal pain rating 3/10. Discussed lab results with patient and . Rectal exam shows black stool in the rectal vault. Comments:: Hemoglobin has come back at 11.5 which is just slightly down from 11.9 on 05/14/2024. Her INR is subtherapeutic at 1.7. Hemoccult is negative. BUN has gone up from 17-27. Creatinine has gone up from 1.09-1.23. Patient has received a NS 500 mL bolus. Glucose is elevated at 222. She was 212 when she was seen here 2 days ago. Liver panel was negative. <Dr. Gallito Roberson MD - Last Filed: 05/18/24 23:57> [facility] Narrative Medical decision making narrative: Given patient report of melena, I will order a CBC, BMP, PT/INR, type and screen, and Hemoccult. Due to decreased p.o. intake I will also order a normal saline bolus of 500 mL. Due to continued nausea I will also order Protonix 40 mg IV. I have personally performed a face to face assessment of the patient and have reviewed the [facility] Note. I performed a substantive portion of the visit including all aspects of the following. My clark findings include: History is 74-year-old female history of A-fib on Coumadin complaining of black stool today. Her and her said there was a large amount of black stool in the toilet. She has no prior history of GI bleed. She was diagnosed with influenza this past weekend. She denies any hematemesis. Exam is [well-appearing 74-year-old female. Vital signs are stable. She is afebrile. She does not look septic or toxic. Pulse ox 95% on room air no hypoxia. H EENT exam pupils round react light. Mytrex membranes. Neck nontender no JVD. Lungs coarse breath sounds. Dry cough. Equal symmetrical. No rales or rhonchi. No wheezing. Heart regular rhythm. Rate is 70s. Abdomen soft nontender. Moving all 4 extremities. Nontender no edema. She is awake and alert. Rectal exam external hemorrhoids. Not actively bleeding. She has black stool. Neurologically she is awake and alert. Answering questions following commands.] Medical Decision Making [74-year-old female status post influenza anticoagulated on Coumadin due to A-fib. Has a GI bleed. Was given IV Protonix. Hospitalist on page for admission.] Other additions or changes: [None] Lab Data Lab results narrative: CBC shows a white count of 7 H&H 11.5 and 35.3. Platelets 154. PT/INR 19 and 1.7. Electrolytes show a gap of 13. BUN 27 creatinine 1.23. Glucose 222. Liver enzymes normal. Blood type O+. Labs: Laboratory Results - last 24 hr 05/15/24 05/15/24 17:15 17:30 WBC 7.2 RBC 4.16 L Hgb 11.5 L Hct 35.3 L MCV 84.9 MCH 27.6 MCHC 32.6 RDW Std Deviation 45.5 H RDW Coeff of Rukhsana 14.6 Plt Count 154 MPV 11.4 Immature Gran % (Auto) 0.400 Neut % (Auto) 67.4 Lymph % (Auto) 21.6 [place] % (Auto) 10.2 H Eos % (Auto) 0.1 Baso % (Auto) 0.3 Absolute Neuts (auto) 4.8 Absolute Lymphs (auto) 1.55 Nucleated RBC % 0 PT 19.9 H INR 1.7 Sodium 135 Potassium 3.8 Chloride 100 Carbon Dioxide 21.2 Anion Gap 13 BUN 27 H Creatinine 1.23 H Estim Creat Clear Calc 42.94 L Est GFR (MDRD) Non-Af 46 L BUN/Creatinine Ratio 22.1 H Glucose 222 H Calcium 9.2 Total Bilirubin 0.67 AST 52 H ALT 26 Alkaline Phosphatase 68 Total Protein 7.1 Albumin 3.6 Globulin 3.5 Albumin/Globulin Ratio 1.0 Blood Type O POSITIVE Antibody Screen NEGATIVE Discharge Plan Dx/Rx/DC Orders Clinical Impression: Anemia, Influenza A, Chronic anticoagulation, Diabetes mellitus type II, controlled, Acute upper gastrointestinal bleeding, History of atrial fibrillation Disposition Disposition: Acute Care [facility] Discharge Date/Time: 05/15/24 22:59
[2024-05-15 17:38] LABS: Absolute Lymphocyte Count 1.55 X10^3/uL (0.83-4.51); Absolute Neutrophil Count 4.8 X10^3/uL (2.0-7.7); Basophil# 0.02 X10^3/uL; Basophil% 0.3 % (0-1); Eosinophil# 0.01 X10^3/uL; Eosinophils% 0.1 % (0-5); Hematocrit 35.3 % (37-47); Hemoglobin 11.5 g/dL (12.0-15.0); Lymphocyte # 1.55 X10^3/ul (0.83-4.51); Lymphocyte % 21.6 % (19-41); Mean Corp Hgb Conc 32.6 g/dL (32-36); Mean Corpuscular Hgb 27.6 pg (27.0-32.0); Mean Corpuscular Volume 84.9 fL (81-99); Mean Platelet Vol. 11.4 fl (6.2-12.0); Monocyte# 0.73 X10^3/uL; Monocyte% 10.2 % (0-10); NRBC Flagged by Analyzer 0 % (0-5); Neutrophil # 4.83 X10^3/uL (2.7-7.7); Neutrophil % 67.4 % (47-70); Platelet Count 154 K/mm3 (150-450); RBC Distribution Width CV 14.6 % (11.6-14.6); RBC Distribution Width SD 45.5 fl (35.1-43.9); Red Blood Count 4.16 M/mm3 (4.2-5.4); White Blood Count 7.2 K/mm3 (4.4-11.0)
[2024-05-15] MEDS: 0.9% Normal Saline (500mL Bag) 500 ML 999 ML IV (17:41)
[2024-05-15 17:47] LABS: International Normalized Ratio 1.7; Prothrombin Time (Protime)PT. 19.9 SECONDS (11.7-14.9)
[2024-05-15] MEDS: Pantoprazole Sodium 40 MG in 0.9% Normal Saline (100mL MB+) 100 ML 330 MG IV (18:05)
[2024-05-15 18:17] LABS: AST(SGOT) 52 U/L (<=31); Alanine Aminotransfer ALT/SGPT 26 U/L (<=34); Albumin, Serum 3.6 g/dL (3.4-4.8); Alkaline Phosphatase 68 U/L (35-104); Anion Gap 13 (5-15); BUN 27 mg/dL (4-19); BUN/Creat Ratio 22.1 RATIO (10-20); Calcium,Total 9.2 mg/dL (7.6-11.0); Carbon Dioxide 21.2 mmol/L (21.0-32.0); Chloride 100 mmol/L (98-108); Creatinine, Serum 1.23 mg/dL (0.70-1.20); EST Glomerular Filtration Rate 46 (>60); Estimated Creatinine Clearance 42.94 ml/min (50-250); Globulin 3.5 g/dL (2.2-4.2); Glucose 222 mg/dL (70-99); Potassium 3.8 mmol/L (3.3-5.1); Protein, Total 7.1 g/dL (5.9-8.4); Sodium Level 135 mmol/L (133-145); Total Bilirubin 0.67 mg/dL (0.00-1.30)
[2024-05-15 18:47] VITALS: BP 137/48; O2SAT 95
[2024-05-15 20:00] VITALS: BP 128/41; PULSE 77; RESP 18; O2SAT 95
[2024-05-15 20:55] VITALS: BP 138/60; PULSE 70; RESP 18; TEMP 36.9; O2SAT 97
--- NOTE | 2024-05-15 21:20 | PCM.HP.STD ---
[facility] - General General Date of Admission: 05/15/24 Date of Service: 05/15/24 Chief Complaint: Black Stools. HPI Narrative SVEN WALKER, is a 74 F with a past medical history of essential hypertension; on losartan and metoprolol, hyperlipidemia; on rosuvastatin, history of goiter, obesity; with BMI of 35.1 this admission, history of KIDD; with cirrhosis, DM-2; of unknown control on glipizide 10 mg p.o. twice daily, paroxysmal atrial fibrillation; on warfarin, history of CHB; s/p PPM (2022), history of DVT, history of TIA/CVA, history of asymmetric septal hypertrophy, history of bilateral carotid stenosis (2020), history of orthostatic hypotension, history of renal carcinoma; s/p partial Right nephrectomy, CKD; stage IIIa, chronic anemia, history of thrombosed hemorrhoids; with history of BRBPR (2022), history of sepsis, history of torticollis, OA; with history of bilateral TKR's and chronic Left hip pain and recently diagnosed Influenza A in this ER on May 13, 2024 with complaints of nausea, vomiting, diarrhea and intermittent chest discomfort with patient not prescribed Tamiflu due to concerns that it may exacerbate her nausea and vomiting who presents to [facility] [place] [facility] planing of black liquid stools. Mrs. Walker reports her symptoms began approximately 2 days prior to admission with the abrupt-onset of black liquid stools that were voluminous. She also admits to associated lightheadedness, dizziness and falls on May 13, 2024 and May 14, 2024 but she denies loss of consciousness or significant head trauma with her falls along with fever up to 100.6 ?F earlier today which improved after acetaminophen. She denies similar previous episodes as her previous thrombosed external hemorrhoids are generally productive of bright red blood. She also states she did not take her medications for the past 2 days due to not feeling well. She reports associated lightheadedness, dizziness, generalized weakness, fever, nasal/chest congestion, sinus pain, chest pain that is generalized and dull and stabbing and made worse with coughing, cough productive of pale yellow sputum, abdominal pain, decreased urination and arthralgias. She denies hematuria, back pain, polydipsia, polyphagia or polyuria. In the ER patient was diagnosed with suspected UGIB causing melanotic stools likely due at least in part to adverse drug reaction to warfarin in the setting of suspected PUD. She was then started on IV pantoprazole and made n.p.o. with subsequent transfer to PCU for ongoing care for stay that is expected to extend beyond 2 midnights. [facility] Medical History (Updated 05/16/24 @ 07:[address] South Jesus, DO) HLD (hyperlipidemia) Cancer of kidney Cirrhosis of liver not due to alcohol Goiter Depression History of renal carcinoma Stage 3a chronic kidney disease (CKD) Bilateral carotid artery stenosis (10/27/20) Complete heart block Thrombosed external hemorrhoid Osteoporosis Cancer Irregular heart beat DVT (deep venous thrombosis) TIA (transient ischemic attack) Rectal pain Chronic anemia Obesity PAF (paroxysmal atrial fibrillation) Asthma Diabetes Hemorrhoids Arthritis Hypertension VTE (venous thromboembolism) CVA (cerebral vascular accident) Home Medications ?Medication ?Instructions ?Recorded ?Last Taken ?Type acetaminophen 325 mg tablet 1,000 mg PO QHS 06/26/16 06/29/16 History 1000 mg loratadine 10 mg tablet 10 mg PO QHS 30 days 07/23/16 Unknown Rx docusate sodium 100 mg capsule 200 mg PO QHS 01/21/23 Unknown History (Colace) multivitamin (Daily Multi-Vitamin 1 tab PO DAILY 01/21/23 Unknown History tablet) hydrocortisone 2.5 % topical cream 1 applic LA QD-BID PRN hemorrhoids 02/04/23 Unknown History with perineal applicator (Anusol-HC) promethazine 12.5 mg tablet 12.5 mg PO Q6H PRN nausea and 02/04/23 Unknown History vomiting losartan 25 mg tablet 12.5 mg (1/2 x 25 mg) PO DAILY #45 08/15/23 Unknown Rx tabs metoprolol tartrate 50 mg tablet 50 mg PO BID #180 tabs 02/24/24 Unknown Rx rosuvastatin 20 mg tablet 20 mg PO QHS #90 tabs 03/13/24 Unknown Rx glipizide 10 mg tablet, extended 10 mg PO BID 04/18/24 Unknown History release 24 hr ondansetron 4 mg disintegrating 4 mg PO Q8H PRN PRN Nausea #10 tabs 05/14/24 Unknown Rx tablet warfarin 2.5 mg tablet 2.5 mg PO MOTUWETH 05/15/24 Unknown History warfarin 5 mg tablet 5 mg PO .FRSASU 05/15/24 Unknown History Allergy/AdvReac Type Severity Reaction Status Date / Time simvastatin Allergy Severe Unknown Verified 05/15/24 16:48 etodolac AdvReac Intermediate GI upset Verified 05/15/24 16:48 gabapentin AdvReac Intermediate dizziness Verified 05/15/24 16:48 NSAIDS (Non-Steroidal AdvReac Intermediate GI upset Verified 05/15/24 16:48 Anti-Inflamma sulfamethoxazole AdvReac Intermediate Sulfa Verified 05/15/24 16:48 drugs GI upset sulfametrole AdvReac Intermediate GI upset Verified 05/15/24 16:48 valdecoxib (From Bextra) AdvReac Intermediate GI upset Verified 05/15/24 16:48 atorvastatin AdvReac Unknown unknown Verified 05/15/24 16:48 codeine AdvReac Unknown unknown Verified 05/15/24 16:48 guaifenesin (From Entex [place]) AdvReac Unknown unknown Verified 05/15/24 16:48 hydrocodone AdvReac Unknown unknown Verified 05/15/24 16:48 naproxen (From Naprosyn) AdvReac Unknown unknown Verified 05/15/24 16:48 phenylephrine (From Entex LA) AdvReac Unknown unknown Verified 05/15/24 16:48 phenylpropanolamine (From AdvReac Unknown unknown Verified 05/15/24 16:48 Entex LA) pravastatin AdvReac Unknown unknown Verified 05/15/24 16:48 quinapril (From Accupril) AdvReac Unknown Unknown Verified 05/15/24 16:48 rofecoxib (From Vioxx) AdvReac Unknown unknown Verified 05/15/24 16:48 Sulfa (Sulfonamide AdvReac Unknown Diarrhea Verified 05/15/24 16:48 Antibiotics) tramadol AdvReac Unknown unknown Verified 05/15/24 16:48 celecoxib (From Celebrex) AdvReac Nausea/Vom/ Verified 05/15/24 16:48 Diarrhea fluoxetine HCl (From Prozac) AdvReac Other Verified 05/15/24 16:48 isosorbide AdvReac Other Verified 05/15/24 16:48 metformin AdvReac Nausea/Vom/ Verified 05/15/24 16:48 Diarrhea Family History Mother CVA (cerebral vascular accident) Diabetes Heart disease Father CVA (cerebral vascular accident) Diabetes Heart disease Other longterm (current) use of 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 Surgical History S/P placement of cardiac pacemaker History of incision and drainage H/O partial nephrectomy History of hysterectomy History of knee replacement History of cholecystectomy History of shoulder surgery History of appendectomy Social History household members: spouse Smoking Status: Never smoker alcohol intake: never substance use type: does not use ROS ROS Narrative Review of Systems: Constitutional: Patient admits to low-grade fever, lightheadedness, dizziness and generalized weakness. Eyes: Patient denies changes vision or discharge from eyes. ENT: Patient admits to nasal congestion and sinus pain but she denies sore throat or ear pain. Resp: Patient admits to shortness of breath with congestive cough productive of pale, yellowish sputum after recently being diagnosed with influenza A as per HPI. CV: Patient admits to pleuritic type chest pain made worse with coughing and deep breathing. She denies heart racing or palpitations. GI: Patient admits to generalized abdominal pain with voluminous melanotic stools as per HPI. She admits to nausea but denies vomiting. : Patient admits to decreased urination but she denies dysuria or hematuria. MSK: Patient admits to arthralgias, myalgias and back pain but she denies neck pain. Skin: Patient denies rash, abscess, wounds or jaundice. Psych: Patient denies symptoms of uncontrolled depression or anxiety. Neuro: Patient admits to headache but she denies paresthesias or focal neurologic deficits. Allergy: Patient denies lip swelling, tongue swelling or urticaria. Hematology: Patient admits to voluminous melanotic stools as per HPI. Endocrinology: Patient denies polyuria, polydipsia or polyphagia. 14 point ROS otherwise negative except for positives noted above in HPI. Vital Signs Vital Signs Vital Signs: 05/15/24 16:48 05/15/24 18:47 05/15/24 20:00 Temperature 97.9 F Temperature Source Temporal Pulse Rate 90 77 Respiratory Rate 20 H 18 Blood Pressure 130/54 H 137/48 H 128/41 H Blood Pressure Mean 79 77 70 Pulse Ox 95 95 95 Oxygen Delivery Method Room Air Room Air Room Air 05/15/24 20:55 Temperature 98.4 F Temperature Source Pulse Rate 70 Respiratory Rate 18 Blood Pressure 138/60 H Blood Pressure Mean 86 Pulse Ox 97 Oxygen Delivery Method Weight Weight: 204 lb 5.896 oz Body Mass Index (BMI) 35.0 Physical Exam Const alert, oriented x3 and no apparent distress Constitutional Narrative: Obese with chronically ill appearance. General Appearance: cooperative HEENT normocephalic, head/scalp atraumatic, hearing grossly normal bilaterally and moist oral mucous membranes Eyes PERRL and EOMs intact bilaterally Neck no lymphadenopathy and supple Resp Resp Narrative: Diminished breath sounds throughout with scattered rhonci. Cardio regular rate and regular rhythm GI normal to inspection, nondistended, normoactive bowel sounds, soft to palpation and non-distended GI Narrative: Obese with mild generalized TTP. Extremity normal to inspection, full ROM and no clubbing, cyanosis or edema Skin Skin Narrative: Patient has no evidence of rash, abscess, wounds or jaundice. Neuro oriented x3, CN's II-XII intact bilaterally, moves all extremities and no focal motor deficits Sensorium / Orientation: awake, alert, oriented to person, oriented to place and oriented to time Speech: speech normal Psych affect normal Results Medical Records Data Attestation: I reviewed the patient's medical records Lab / Micro Data Attestation: I reviewed the patient's lab results. 05/16/24 05:47 05/15/24 17:15 Labs: Laboratory Results - last 24 hr 05/15/24 17:15: WBC 7.2, RBC 4.16 L, Hgb 11.5 L, Hct 35.3 L, MCV 84.9, MCH 27.6, MCHC 32.6, RDW Std Deviation 45.5 H, RDW Coeff of Rukhsana 14.6, Plt Count 154, MPV 11.4, Immature Gran % (Auto) 0.400, Neut % (Auto) 67.4, Lymph % (Auto) 21.6, Bladen % (Auto) 10.2 H, Eos % (Auto) 0.1, Baso % (Auto) 0.3, Absolute Neuts (auto) 4.8, Absolute Lymphs (auto) 1.55, Nucleated RBC % 0, PT 19.9 H, INR 1.7, Sodium 135, Potassium 3.8, Chloride 100, Carbon Dioxide 21.2, Anion Gap 13, BUN 27 H, Creatinine 1.23 H, Estim Creat Clear Calc 42.94 L, Est GFR (MDRD) Non-Af 46 L, BUN/Creatinine Ratio 22.1 H, Glucose 222 H, Calcium 9.2, Total Bilirubin 0.67, AST 52 H, ALT 26, Alkaline Phosphatase 68, Total Protein 7.1, Albumin 3.6, Globulin 3.5, Albumin/Globulin Ratio 1.0 05/15/24 17:30: Blood Type O POSITIVE, Antibody Screen NEGATIVE Micro: Microbiology 05/15/24 17:15 Stool Stool Occult Blood (MANDY) - Final Imaging [facility] Imaging Services [address] [place], [place] [id number] Chest without Contrast MR#: [id number] Acct: [id number] Name: SVEN WALKER Rep #: [id number] : 1950 F 74 From: Chago Wharton MD PCP: Dr. Alexys Tracy MD Status: ADM IN Study: Chest without Contrast Date of Exam: 05/16/24 Exam# [id number] Ordering Dr: South Jesus DO PROCEDURE: CHEST WITHOUT CONTRAST REASON FOR EXAM: CONGESTED COUGH AFTER RECENT INFLUENZA A; ?PNA TECHNIQUE: Chest CT without contrast. COMPARISON: Chest x-ray performed on May 14, 2024. FINDINGS: Pacemaker device overlying the left chest. The trachea and central bronchial tree are patent. There is no pleural or pericardial effusion. The heart is normal in size. There are shotty lymph nodes within the mediastinum, which are nonspecific. There is no pneumothorax. There are streaky changes within the left upper lobe and lingula, which may represent subsegmental atelectasis versus scarring (best seen on image 78 and image 97 of 121). There are subcentimeter pulmonary nodules present. For example there is a 2 mm right lower lobe nodule best seen on image 80/121. No evidence of pneumonia is seen. No acute osseous abnormalities identified. Extensive atheromatous calcification seen within the thoracic aorta without evidence of aneurysmal dilatation. Calcified nodules seen within the bilateral thyroid, incompletely characterized. CT/Chest without Contrast IMPRESSION: Minor scarring. Versus subsegmental atelectasis within the left lung. No definite evidence of pneumonia. Other findings as above. One or more dose reduction techniques were used (e.g., Automated exposure control, adjustment of the mA and/or kV according to patient size, use of iterative reconstruction technique). Reading Location: [id number] CC: Dr. South Jesus DO; Dr. Alexys Tracy MD ~ Top Steep Tender: Signed [facility] Imaging Services [address] [place] [address] [id number] Brain/Head without Contrast MR#: [id number] Acct: [id number] Name: SVEN WALKER Rep #: [id number] : 1950 F 74 From: Chago Wharton MD PCP: Dr. Alexys Tracy MD Status: ADM IN Study: Brain/Head without Contrast Date of Exam: 05/16/24 Exam# [id number] Ordering Dr: South Jesus DO EXAM: BRAIN/HEAD WITHOUT CONTRAST CLINICAL HISTORY: MAXIALLARY SINUS PAIN AND PRESSURE. ?SINUSITIS. COMPARISON: CT brain without contrast dated 07/15/2023. TECHNIQUE: CT of the brain was performed without intravenous contrast. Multiplanar reformats were obtained afterwards. FINDINGS: There is no acute intracranial hemorrhage, mass effect or midline shift. There are no abnormal extra-axial fluid collections present. The ventricles and sulci are within normal limits. Bilateral basal ganglia calcifications are present. Mucoperiosteal thickening seen within the bilateral ethmoids. The maxillary sinuses, frontal sinuses, sphenoid sinuses are well aerated. The mastoids are unremarkable. The calvarium is intact. CT/Brain/Head without Contrast IMPRESSION: Mild mucoperiosteal thickening involving the bilateral ethmoids. Correlate clinically for sinus disease. No acute intracranial hemorrhage, mass effect or midline shift. Reading Location: [id number] CC: Dr. South Jesus DO; Dr. Alexys Tracy MD ~ Top Steep Tender: Signed Assessment & Plan Assessment/Plan (1) UGIB (upper gastrointestinal bleed): (2) Melanotic stools: (3) Adverse drug reaction: QUALIFIERS: Encounter type: initial encounter Qualified Code(s): T50.905A - Adverse effect of unspecified drugs, medicaments and biological substances, initial encounter (4) Influenza A: (5) Ethmoidal sinusitis: QUALIFIERS: Chronicity: unspecified Qualified Code(s): J32.2 - Chronic ethmoidal sinusitis (6) Cirrhosis of liver not due to alcohol: (7) Obesity (BMI 30-39.9): (8) PAF (paroxysmal atrial fibrillation): PLAN: Plan 1. UGIB causing melanotic stools in the setting of previously known Orthostatic Hypotension - Admit to PCU. Keep strict n.p.o. and continue IV pantoprazole infusion. Give ondansetron IV as needed nausea vomiting. Give morphine IV as needed severe (level 6-10/10) pain. Finally, we will consult manager metal to see patient on rounds in the a.m. for further recommendations regarding EGD this admission with help appreciated in advance. 2. Adverse Drug Reaction to warfarin in the setting of suspected PUD precipitating #1 - Hold warfarin until further notice. 3. Recently diagnosed Influenza A with persistent low-grade fever plus sinus/chest congestion with Sinusitis complicating #1 & #2 - Checked CT's without contrast to confirm suspicion of suspected bacterial pneumonia and sinusitis with CT negative for pneumonia but positive for evidence of Ethmoid Sinusitis. Start empiric IV ceftriaxone and IV azithromycin. 4. History of KIDD; with cirrhosis in the setting of ongoing Obesity; with BMI of 35.2 this admission adding to the medical complexity of #1 - #3 - Weight loss will be recommended. Check TSH. GI to consult and decide on plan. This complicates her case and may hamper recovery. 5. Paroxysmal atrial fibrillation; on warfarin compounding #1 - #4 - Hold warfarin until further notice. 6. History of thrombosed hemorrhoids; with history of BRBPR (2022) - Noted. 7. Chronic Anemia in the setting of known CKD; stage IIIa - Stable. Check renal indices daily to ensure continued stability. 8. History of Renal Carcinoma; s/p partial Right nephrectomy - Stable. 9. Essential Hypertension; on losartan and metoprolol - Hold scheduled antihypertensives in light of #1. 10. Hyperlipidemia; on rosuvastatin - Restart stain when patient cleared for oral intake. 11. History of goiter - Noted. Check TSH. 12. DM-2; of unknown control on glipizide 10 mg p.o. twice daily - Keep NPO. FSBS q. 6 hours plus cover with lowest intensity SSI. Check HgbA1c to objectively evaluate quality of diabetic control. 13. History of CHB; s/p PPM (2022) - Stable. 14. History of DVT - Noted. 15. History of TIA/CVA - Noted with no signs of recurrence at this time. 16. History of asymmetric septal hypertrophy - Noted. 17. History of bilateral carotid stenosis (2020) - Noted. 18. History of sepsis - Noted. 19. History of torticollis - Stable. 20. OA; with history of bilateral TKR's and chronic Left hip pain - Stable. 21. DVT prophylaxis - SCD's only in light of #1. Total time: Approximately (but not less than) 75 minutes. Charges/Coding Visit Charges Inpatient E&M: 07547 Init Hosp L3
[2024-05-15 22:00] VITALS: BP 145/66; PULSE 77; RESP 18; O2SAT 94
[2024-05-15 23:23] VITALS: BP 158/60; PULSE 74; RESP 18; TEMP 37.6; O2SAT 94; BMI 35.2
[2024-05-16] VITALS (10 sets, daily range): BP systolic 120–159; BP diastolic 45–96; PULSE 82–104; RESP 16–24; TEMP 36.9–37.6; O2SAT 93–97; BMI 34.9
[2024-05-16] MEDS: 0.9% Normal Saline (1000mL) 1,000 ML 100 ML IV ×2 (00:40→12:29)
[2024-05-16] MEDS: Pantoprazole Sodium 80 MG in 0.9% Normal Saline (100mL Bag) 80 ML 10 MG CONT INF ×2 (00:41→10:05)
[2024-05-16 00:46] LABS: Ferritin 247 ng/mL (22-378); Iron 15 ug/dL (50-170); Iron Binding Capacity,Unsat 217 ug/dL (228-428)
[2024-05-16 01:01] LABS: Iron Binding Capacity,Total 232 ug/dL (250-450); PERCENT IRON SATURATION 6.5 % (13-59)
--- NOTE | 2024-05-16 02:30 | CT_ITS ---
PROCEDURE: CHEST WITHOUT CONTRAST REASON FOR EXAM: CONGESTED COUGH AFTER RECENT INFLUENZA A; ?PNA TECHNIQUE: Chest CT without contrast. COMPARISON: Chest x-ray performed on May 14, 2024. FINDINGS: Pacemaker device overlying the left chest. The trachea and central bronchial tree are patent. There is no pleural or pericardial effusion. The heart is normal in size. There are shotty lymph nodes within the mediastinum, which are nonspecific. There is no pneumothorax. There are streaky changes within the left upper lobe and lingula, which may represent subsegmental atelectasis versus scarring (best seen on image 78 and image 97 of 121). There are subcentimeter pulmonary nodules present. For example there is a 2 mm right lower lobe nodule best seen on image 80/121. No evidence of pneumonia is seen. No acute osseous abnormalities identified. Extensive atheromatous calcification seen within the thoracic aorta without evidence of aneurysmal dilatation. Calcified nodules seen within the bilateral thyroid, incompletely characterized. CT/Chest without Contrast IMPRESSION: Minor scarring. Versus subsegmental atelectasis within the left lung. No defi nite evidence of pneumonia. Other findings as above. One or more dose reduction techniques were used (e.g., Automated exposure contr ol, adjustment of the mA and/or kV according to patient size, use of iterative reconstruction technique). Reading Location: [id number]
--- NOTE | 2024-05-16 02:39 | CT_ITS ---
EXAM: BRAIN/HEAD WITHOUT CONTRAST CLINICAL HISTORY: MAXIALLARY SINUS PAIN AND PRESSURE. ?SINUSITIS. COMPARISON: CT brain without contrast dated 07/15/2023. TECHNIQUE: CT of the brain was performed without intravenous contrast. Multiplanar reformats were obtained afterwards. FINDINGS: There is no acute intracranial hemorrhage, mass effect or midline shift. There are no abnormal extra-axial fluid collections present. The ventricles and sulci are within normal limits. Bilateral basal ganglia calcifications are present. Mucoperiosteal thickening seen within the bilateral ethmoids. The maxillary sinuses, frontal sinuses, sphenoid sinuses are well aerated. The mastoids are unremarkable. The calvarium is intact. CT/Brain/Head without Contrast IMPRESSION: Mild mucoperiosteal thickening involving the bilateral ethmoids. Correlate cli nically for sinus disease. No acute intracranial hemorrhage, mass effect or midline shift. Reading Location: [id number]
[2024-05-16] MEDS: 0.9% Saline Lock 10 ML Syringe IV (04:24)
[2024-05-16] MEDS: Ceftriaxone 1 GM/50 ML BAG IV ×2 (04:24→21:47)
[2024-05-16] MEDS: Azithromycin 500 MG in 0.9% Normal Saline (250mL Bag) 250 ML 255 MG IV ×2 (04:59→23:34)
[2024-05-16 06:23] LABS: Absolute Lymphocyte Count 1.38 X10^3/uL (0.83-4.51); Absolute Neutrophil Count 3.2 X10^3/uL (2.0-7.7); Basophil# 0.02 X10^3/uL; Basophil% 0.4 % (0-1); Eosinophil# 0.04 X10^3/uL; Eosinophils% 0.8 % (0-5); Hemoglobin 10.7 g/dL (12.0-15.0); Lymphocyte # 1.38 X10^3/ul (0.83-4.51); Lymphocyte % 27.1 % (19-41); Mean Corp Hgb Conc 32.4 g/dL (32-36); Mean Corpuscular Hgb 27.5 pg (27.0-32.0); Mean Corpuscular Volume 84.8 fL (81-99); Mean Platelet Vol. 11.8 fl (6.2-12.0); Monocyte# 0.44 X10^3/uL; Monocyte% 8.6 % (0-10); NRBC Flagged by Analyzer 0 % (0-5); Neutrophil % 62.9 % (47-70); Platelet Count 141 K/mm3 (150-450); RBC Distribution Width CV 14.6 % (11.6-14.6); RBC Distribution Width SD 45.3 fl (35.1-43.9); Red Blood Count 3.89 M/mm3 (4.2-5.4); White Blood Count 5.1 K/mm3 (4.4-11.0)
[2024-05-16 06:41] LABS: International Normalized Ratio 1.6
[2024-05-16 07:10] LABS: AST(SGOT) 45 U/L (<=31); Alanine Aminotransfer ALT/SGPT 22 U/L (<=34); Albumin, Serum 3.4 g/dL (3.4-4.8); Alkaline Phosphatase 62 U/L (35-104); Anion Gap 13 (5-15); BUN 19 mg/dL (4-19); BUN/Creat Ratio 19.7 RATIO (10-20); Calcium,Total 8.9 mg/dL (7.6-11.0); Carbon Dioxide 20.5 mmol/L (21.0-32.0); Chloride 103 mmol/L (98-108); Creatinine, Serum 0.97 mg/dL (0.70-1.20); EST Glomerular Filtration Rate 60 (>60); Estimated Creatinine Clearance 54.29 ml/min (50-250); Globulin 3.3 g/dL (2.2-4.2); Glucose 157 mg/dL (70-99); Magnesium 1.8 mg/dL (1.5-2.2); Phosphorus 2.5 mg/dL (2.7-4.5); Potassium 3.9 mmol/L (3.3-5.1); Protein, Total 6.7 g/dL (5.9-8.4); Sodium Level 137 mmol/L (133-145); Total Bilirubin 0.49 mg/dL (0.00-1.30)
--- NOTE | 2024-05-16 08:40 | PCM.PN.HOSP ---
Reason for Visit Reason for Visit: Diagnoses Obesity, unspecified (05/15/24) Paroxysmal atrial fibrillation (05/15/24) Influenza due to other identified influenza virus with other respiratory manifestations (05/15/24) Chronic maxillary sinusitis (05/15/24) Chronic ethmoidal sinusitis (05/15/24) Unspecified cirrhosis of liver (05/15/24) Melena (05/15/24) Gastrointestinal hemorrhage, unspecified (05/15/24) Adverse effect of unspecified drugs, medicaments and biological substances, initial encounter (05/15/24) Subjective Subjective No further melena. Feeling well. Objective Data Objective Data Vital Signs: Vital Signs Temp Pulse Resp BP Pulse Ox O2 Del Method 37.6 C H 74 18 158/60 H 94 Room Air 05/15/24 23:23 05/15/24 23:23 05/15/24 23:23 05/15/24 23:23 05/15/24 23:23 05/15/24 23:23 Oxygen Delivery Method Room Air Weight: 92.2 kg Body Mass Index (BMI) 34.9 Intake & Output: Intake and Output for Last 24 Hours 05/14/24 05/15/24 05/16/24 23:59 23:59 23:59 Intake Total 610 / 610 461.50 / 461.50 Balance 610 / 610 461.50 / 461.50 Lab / Micro Data 05/16/24 05:47 05/16/24 05:47 Labs: Laboratory Results - last 24 hr 05/15/24 17:15: WBC 7.2, RBC 4.16 L, Hgb 11.5 L, Hct 35.3 L, MCV 84.9, MCH 27.6, MCHC 32.6, RDW Std Deviation 45.5 H, RDW Coeff of Rukhsana 14.6, Plt Count 154, MPV 11.4, Immature Gran % (Auto) 0.400, Neut % (Auto) 67.4, Lymph % (Auto) 21.6, Clare % (Auto) 10.2 H, Eos % (Auto) 0.1, Baso % (Auto) 0.3, Absolute Neuts (auto) 4.8, Absolute Lymphs (auto) 1.55, Nucleated RBC % 0, PT 19.9 H, INR 1.7, Sodium 135, Potassium 3.8, Chloride 100, Carbon Dioxide 21.2, Anion Gap 13, BUN 27 H, Creatinine 1.23 H, Estim Creat Clear Calc 42.94 L, Est GFR (MDRD) Non-Af 46 L, BUN/Creatinine Ratio 22.1 H, Glucose 222 H, Calcium 9.2, Iron 15 L, TIBC 232 L, Iron Saturation 6.5 L, Unsaturated IBC 217 L, Ferritin 247, Total Bilirubin 0.67, AST 52 H, ALT 26, Alkaline Phosphatase 68, Total Protein 7.1, Albumin 3.6, Globulin 3.5, Albumin/Globulin Ratio 1.0 05/15/24 17:30: Blood Type O POSITIVE, Antibody Screen NEGATIVE 05/16/24 05:47: WBC 5.1, RBC 3.89 L, Hgb 10.7 L, Hct 33.0 L, MCV 84.8, MCH 27.5, MCHC 32.4, RDW Std Deviation 45.3 H, RDW Coeff of Rukhsana 14.6, Plt Count 141 L, MPV 11.8, Immature Gran % (Auto) 0.200, Neut % (Auto) 62.9, Lymph % (Auto) 27.1, Clare % (Auto) 8.6, Eos % (Auto) 0.8, Baso % (Auto) 0.4, Absolute Neuts (auto) 3.2, Absolute Lymphs (auto) 1.38, Nucleated RBC % 0, PT 19.0 H, INR 1.6, Sodium 137, Potassium 3.9, Chloride 103, Carbon Dioxide 20.5 L, Anion Gap 13, BUN 19, Creatinine 0.97, Estim Creat Clear Calc 54.29, Est GFR (MDRD) Non-Af 60, BUN/Creatinine Ratio 19.7, Glucose 157 H, Hemoglobin A1c 8.0, Calcium 8.9, Phosphorus 2.5 L, Magnesium 1.8, Total Bilirubin 0.49, AST 45 H, ALT 22, Alkaline Phosphatase 62, Total Protein 6.7, Albumin 3.4, Globulin 3.3, Albumin/Globulin Ratio 1.0, TSH 1.170 Micro: Microbiology 05/15/24 17:15 Stool Stool Occult Blood (MANDY) - Final Radiography Diagnostic Testing: Radiology Impression Chest CT 05/16/24 02:30 IMPRESSION: Minor scarring. Versus subsegmental atelectasis within the left lung. No definite evidence of pneumonia. Other findings as above. One or more dose reduction techniques were used (e.g., Automated exposure control, adjustment of the mA and/or kV according to patient size, use of iterative reconstruction technique). Reading Location: [facility] Brain CT 05/16/24 02:39 IMPRESSION: Mild mucoperiosteal thickening involving the bilateral ethmoids. Correlate clinically for sinus disease. No acute intracranial hemorrhage, mass effect or midline shift. Reading Location: [facility] Physical Exam Const alert and no apparent distress Constitutional Narrative: up in chair. HEENT head/scalp atraumatic and moist oral mucous membranes Resp normal respiratory effort, no retractions, no use of accessory muscles and clear to auscultation bilaterally Cardio regular rate, regular rhythm, S1 normal heart sound and S2 normal heart sound GI normal to inspection, nondistended, normoactive bowel sounds, soft to palpation and non-distended GI Narrative: TTP Extremity normal to inspection Assessment & Plan Assessment/Plan (1) GI bleed: PLAN: PPI gtt. Unclear source, but suspect upper source. Warfarin held (not causing the bleeding, but exacerbating it) Hg down slightly to 10.7 (from 11.5). GI consult for endoscopy. PLAN: Plan Chronic conditions: pAfib: warfarin held given GIB. Continue metoprolol HTN: losartan DM2: glipizide held. SSI. VTE prophylaxis: SCDs. Charges/Coding Visit Charges Inpatient E&M: 54482 Subs Hosp L2
[2024-05-16 10:37] LABS: Bacteria 0 SEEN /hpf (None Seen); Color, Urine Yellow (Yellow); Glucose, Dipstick Normal (Normal); Ketone-Dipstick Negative (Negative); Leukocyte Esterase-Dipstick Negative /ul (Negative); Mucous, Urine 0 SEEN /hpf (<or=2+); Nitrite-Dipstick Negative (Negative); Occult Blood-Urine Negative /ul (Negative); Protein-Dipstick Negative (Negative); Specific Gravity, Urine 1.015 (1.002-1.030); Squamous Epithelial Cells - UA 0 SEEN /hpf (5-10); Urine Bilirubin Dipstick Negative (Negative); Urine Clarity Clear (Clear); Urine Urobilinogen Normal (Normal); White Blood Cells 0 SEEN /hpf (0-5)
[2024-05-16 12:46] LABS: Bedside Glucose 120 mg/dL (74-106)
[2024-05-16 13:07] LABS: Red Blood Cells-Urine 0 SEEN /hpf (0-5)
--- NOTE | 2024-05-16 13:55 | CASEMGMT ---
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 Pt voices understanding and consents to?assessment?at this time.? Pt resting in bed in no distress at this time.? Pt is A/O at this time and answers all questions appropriately.?? Care providers, pharmacy, and demographics verified/updated at this time. PCP: Dr Tracy Specialists: [facility]/Cardiology. Pt states she has also scheduled an appt @ [place] [facility]. [facility]erred [facility]acy: [facility] Insurance: [employer] [facility] Prescription Benefit:?yes Living Will/HPOA:?Has both LW and HCPOA, stating her is her HCPOA. LNOK: , Ta. 2 sons and a daughter (Cecy) Living Arrangements: Lives w/her in one-story home w/basement and 2 steps to enter home. Pt states she does go to the basement to do laundry and has figured out a way to do it re: navigating the stairs. She is indep w/ADL's and manages her own medications and appts. She does most of the home mgnt tasks, does assist at times. Pt and go grocery shopping together. Transportation:?Pt states drives self and states no transportation concerns at this time. also drives. DME: States has the following DME:?shower chair, raised toilet, cane, walker, pulse ox, W/C, glucometer w/supplies. Pt states she just purchased this glucometer and only tried to use it once so far & states it wouldn't read her BS, and states she thinks she just wasn't doing it right. ALONDRA MARCIAL recommended she have family member bring in the glucometer to have staff show her how to use it. She states she was not feeling well and was having difficulty reading the instructions. She states is not concerned about getting it to work right once she returns home, as she will be able to follow the instructions now that she is feeling better. ALONDRA MARCIAL instructed pt, if it is still not working correctly, to f/u with PCP or the pharmacy where she purchased it from for assistance. She voices appreciation. Pt states she would like medical alert info. Same provided at this time. Pt states no need for further DME at this time.? HHC/SNF: Pt has been to [facility] in the past. She has not had HHC. Discussed dc planning. Pt wishes to dc home, declines wanting HHC. She has done OP therapy @ [facility] in the past and would like to do this again @ dc. ALONDRA MARCIAL informed her a script can be provided for her @ dc. Offered to fax script to [employer] and schedule appt, but pt states she wants to take care of this herself, as she does not know when it will work for her to go. Pt wishes to return home and states has no concerns with going home at time of discharge.? ?CM?to follow for any further discharge planning/needs.? Pt voices no further concerns/needs at this time.? Advised pt to ask for?CM?if any further questions/concerns/needs arise.? Voices understanding. PLAN:??Home w/script for OP therapy. Huey BLELAN?RN?CM
--- NOTE | 2024-05-16 15:08 | PCM.PRE.AN2 ---
ASA Classification* ASA Classification ASA Classification: 3 Assessment & Plan Anesthesia* Anesthesia Assessment Anesthesia Assessment: Discussed sedation and/or anesthesia options, risks, benefits, and alternatives with patient/parents/legal guardian/POA. Questions invited. The patient/parents/legal guardian/POA seems to understand and agrees to proceed with anesthesia plan. Reviewed the physical assessment, medical history, allergy history and patient home medications list prior to surgery/procedure/anesthetic and documented any changes. Performed airway and anesthesia risk assessments. Anesthesia Type Anesthesia Type: MAC (Pacemaker. complete heart block history) Anesthesia Focused Assessment* Temperature: 98.6 F Pulse Rate: 82 Blood Pressure: 121/45 Respiratory Rate: 16 Pulse Ox: 94 Airway Assessment Mouth opens: >3 cm Mallampati Score: II Focused Labs Anesthesia Preop lab: CBC WBC 5.1 K/mm3 (4.4-11.0) 05/16/24 05:47 05/16/24 RBC 3.89 M/mm3 (4.2-5.4) L 05/16/24 05:47 05/16/24 Hgb 10.7 g/dL (12.0-15.0) L 05/16/24 05:47 05/16/24 Hct 33.0 % (37-47) L 05/16/24 05:47 05/16/24 Plt Count 141 K/mm3 (150-450) L 05/16/24 05:47 05/16/24 CHEMISTRY Potassium 3.9 mmol/L (3.3-5.1) 05/16/24 05:47 05/16/24 Sodium 137 mmol/L (133-145) 05/16/24 05:47 05/16/24 Magnesium 1.8 mg/dL (1.5-2.2) 05/16/24 05:47 05/16/24 Phosphorus 2.5 mg/dL (2.7-4.5) L 05/16/24 05:47 05/16/24 BUN 19 mg/dL (4-19) 05/16/24 05:47 05/16/24 Creatinine 0.97 mg/dL (0.70-1.20) 05/16/24 05:47 05/16/24 Glucose 157 mg/dL (70-99) H 05/16/24 05:47 05/16/24 POC Glucose 120 mg/dL (74-106) H 05/16/24 12:06 05/16/24 TSH 1.170 uIU/mL (0.300-4.200) 05/16/24 05:47 05/16/24 COAG PT 19.0 SECONDS (11.7-14.9) H 05/16/24 05:47 05/16/24 INR 4.2 H 02/11/23 15:24 02/11/23 Pre-Assessment Diagnosis/Proposed Procedure Planned Operative Procedure(s): EGD Anesthesia History Anesthesia History - animal care specialist: Anesthesia History - animal care specialist Hx Hospitalization Yes: 06/2107/29/23 12:32 Any Problems With Anesthesia No: pt slow to wake from 05/16/24 14:39 general and nausea Cholinesterase deficiency No 05/16/24 14:39 You/Your Family Experience No 05/16/24 14:39 fever (hyperthermia) with Relationship Recent Exposure to Contagious Yes 05/16/24 14:39 Disease Does patient have nerve No 05/16/24 14:39 stimulator Patient instructed to have No 05/16/24 14:39 device shut off --Does patient have Pacemaker Yes 05/16/24 14:00 or ICD? When Was Last Pacemaker Check dr anna 04/1305/16/24 14:39 QUESTION #4 FULL TEXT: You/Your Family Experience fever (hyperthermia) with Anesthesia Last Oral Intake Last Oral intake: Last Oral Intake NPO since 00:00 05/16/24 14:00 Meds taken in AM with sips of No 05/16/24 14:00 water? Meds patient instructed to take am of surgery PONV PONV - animal care specialist: PONV - animal care specialist Female HX of Motion Sickness HX of N/V After Surgery Non-Smoker Duration of Surgery greater than 60 minutes Number of Risk Factors PONV Score Height & Weight Height & Weight: Anesthesia: Height & Weight Height 5 ft 4 in 05/16/24 14:00 Weight: 92.2 kg 05/16/24 14:00 Body Mass Index (BMI) 34.9 05/16/24 14:00 Respiratory Assessment Respiratory Assessment - animal care specialist: Respiratory Tract Infection Hx - animal care specialist Hx Respiratory Tract Infection Yes: flu a + 05/16/24 14:39 STOP Sleep Apnea STOP Sleep Apnea - animal care specialist: STOP Sleep Apnea - animal care specialist Hx Hypertension Yes 05/16/24 11:44 Hx Sleep Apnea No 05/15/24 23:23 CPAP No 05/15/24 23:23 BIPAP No 05/15/24 23:23 Do you snore loudly (louder No 05/15/24 23:23 than talking or can be heard Do you often feel tired/ No 05/15/24 23:23 fatigued/ sleepy during daytime? Has anyone observed you stop No 05/15/24 23:23 breathing during sleep? STOP Results Negative 05/15/24 23:23 QUESTION #5 FULL TEXT : Do you snore loudly (louder than talking or can be heard through closed doors)? 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 Specify any problems Hx of Preganancy in last 3 No 05/15/24 23:23 Months Nurse Filling Out Transfusion LUIGI 05/15/24 23:23 & Questions: Date: 05/15/24 05/15/24 23:23 Time: 23:30 05/15/24 23:23 Patient unable to answer at this time (ie. confused, unrespo /Reproduction History /Reproductive History - animal care specialist: /Reproductive Hx- animal care specialist Hx Now No 05/16/24 14:39 Gestational Age (in weeks): EDC: Hx Hx Para Hx Section SAB No 05/16/24 14:39 Active Medications Active Medications: Current Medications Generic Name Dose Route Start Last Admin Trade Name Freq PRN Reason Stop Dose Admin Glucagon 1 mg 05/15/24 23:22 Glucagon 1 Mg/Ml Syringe IM X1 PRN HYPOGLYCEMIA Protocol Pantoprazole Sodium 80 mg/ 100 mls @ 10 mls/hr 05/15/24 22:34 05/16/24 10:05 Sodium Chloride CONT INF 10 mls/hr Q10H PREET Administration Sodium Chloride 1,000 mls @ 100 mls/hr 05/15/24 22:34 05/16/24 12:29 IV 05/16/24 18:33 100 mls/hr .Q10H PREET Administration Protocol Dextrose 250 mls @ 0 mls/hr 05/15/24 23:22 Dextrose 10%-Water IV .Q0M PRN HYPOGLYCEMIA Protocol As Directed Sodium Chloride 100 mls @ 15 mls/hr 05/15/24 23:34 IV .Q6H40M PRN Saline Flush Sodium Chloride 100 mls @ 15 mls/hr 05/15/24 23:34 IV .Q6H40M PRN Additional IVPB Infusion Ceftriaxone Sodium 1 gm in 50 mls @ 100 mls/hr 05/16/24 02:35 05/16/24 04:54 Rocephin IV Infused QHS PREET Infusion Azithromycin 500 mg/ Sodium 255 mls @ 255 mls/hr 05/16/24 02:35 05/16/24 04:59 Chloride IV 0 mls/hr QHS PREET Infusion Insulin Human Lispro 0 unit 05/16/24 00:00 05/16/24 13:14 Insulin Lispro 100 Unit/Ml Insuln.Pen SC Not Given Q6 PREET Protocol Ondansetron HCl 4 mg 05/15/24 23:22 Ondansetron 4 Mg/2 Ml Vial IV Q6H PRN PRN NAUSEA/VOMITING Promethazine HCl 12.5 mg 05/15/24 23:22 Promethazine 25 Mg/Ml Syringe IM Q6H PRN PRN Breakthrough Nausea/Vomiting Sodium Chloride 10 - 40 ml 05/15/24 23:34 05/16/24 04:24 0.9% Saline Lock 10 Ml Syringe IV 10 ml UD PRN Administration SALINE FLUSH PFSH Medical History HLD (hyperlipidemia) Cancer of kidney Cirrhosis of liver not due to alcohol Goiter Depression History of renal carcinoma Stage 3a chronic kidney disease (CKD) Bilateral carotid artery stenosis (10/27/20) Complete heart block Thrombosed external hemorrhoid Osteoporosis Cancer Irregular heart beat DVT (deep venous thrombosis) TIA (transient ischemic attack) Rectal pain Chronic anemia Obesity PAF (paroxysmal atrial fibrillation) Asthma Diabetes Hemorrhoids Arthritis Hypertension VTE (venous thromboembolism) CVA (cerebral vascular accident) Home Medications ?Medication ?Instructions ?Recorded ?Last Taken ?Type acetaminophen 325 mg tablet 1,000 mg PO QHS 06/26/16 06/29/16 History 1000 mg loratadine 10 mg tablet 10 mg PO QHS 30 days 07/23/16 Unknown Rx docusate sodium 100 mg capsule 200 mg PO QHS 01/21/23 Unknown History (Colace) multivitamin (Daily Multi-Vitamin 1 tab PO DAILY 01/21/23 Unknown History tablet) hydrocortisone 2.5 % topical cream 1 applic IA QD-BID PRN hemorrhoids 02/04/23 Unknown History with perineal applicator (Anusol-HC) promethazine 12.5 mg tablet 12.5 mg PO Q6H PRN nausea and 02/04/23 Unknown History vomiting losartan 25 mg tablet 12.5 mg (1/2 x 25 mg) PO DAILY #45 08/15/23 Unknown Rx tabs metoprolol tartrate 50 mg tablet 50 mg PO BID #180 tabs 02/24/24 Unknown Rx rosuvastatin 20 mg tablet 20 mg PO QHS #90 tabs 03/13/24 Unknown Rx glipizide 10 mg tablet, extended 10 mg PO BID 04/18/24 Unknown History release 24 hr ondansetron 4 mg disintegrating 4 mg PO Q8H PRN PRN Nausea #10 tabs 05/14/24 Unknown Rx tablet warfarin 2.5 mg tablet 2.5 mg PO MOTUWETH 05/15/24 Unknown History warfarin 5 mg tablet 5 mg PO .FRSASU 05/15/24 Unknown History Allergy/AdvReac Type Severity Reaction Status Date / Time simvastatin Allergy Severe Unknown Verified 05/15/24 16:48 etodolac AdvReac Intermediate GI upset Verified 05/15/24 16:48 gabapentin AdvReac Intermediate dizziness Verified 05/15/24 16:48 NSAIDS (Non-Steroidal AdvReac Intermediate GI upset Verified 05/15/24 16:48 Anti-Inflamma sulfamethoxazole AdvReac Intermediate Sulfa Verified 05/15/24 16:48 drugs GI upset sulfametrole AdvReac Intermediate GI upset Verified 05/15/24 16:48 valdecoxib (From Bextra) AdvReac Intermediate GI upset Verified 05/15/24 16:48 atorvastatin AdvReac Unknown unknown Verified 05/15/24 16:48 codeine AdvReac Unknown unknown Verified 05/15/24 16:48 guaifenesin (From Entex [place]) AdvReac Unknown unknown Verified 05/15/24 16:48 hydrocodone AdvReac Unknown unknown Verified 05/15/24 16:48 naproxen (From Naprosyn) AdvReac Unknown unknown Verified 05/15/24 16:48 phenylephrine (From Entex [place]) AdvReac Unknown unknown Verified 05/15/24 16:48 phenylpropanolamine (From AdvReac Unknown unknown Verified 05/15/24 16:48 Entex LA) pravastatin AdvReac Unknown unknown Verified 05/15/24 16:48 quinapril (From Accupril) AdvReac Unknown Unknown Verified 05/15/24 16:48 rofecoxib (From Vioxx) AdvReac Unknown unknown Verified 05/15/24 16:48 Sulfa (Sulfonamide AdvReac Unknown Diarrhea Verified 05/15/24 16:48 Antibiotics) tramadol AdvReac Unknown unknown Verified 05/15/24 16:48 celecoxib (From Celebrex) AdvReac Nausea/Vom/ Verified 05/15/24 16:48 Diarrhea fluoxetine HCl (From Prozac) AdvReac Other Verified 05/15/24 16:48 isosorbide AdvReac Other Verified 05/15/24 16:48 metformin AdvReac Nausea/Vom/ Verified 05/15/24 16:48 Diarrhea Family History Mother CVA (cerebral vascular accident) Diabetes Heart disease Father CVA (cerebral vascular accident) Diabetes Heart disease Other FPC (current) use of 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 Surgical History S/P placement of cardiac pacemaker History of incision and drainage H/O partial nephrectomy History of hysterectomy History of knee replacement History of cholecystectomy History of shoulder surgery History of appendectomy Social History household members: spouse Smoking Status: Never smoker alcohol intake: never substance use type: does not use Review of Systems (Anesthesia) ROS Narrative System reviewed and no additional complaints, except as documented.
--- NOTE | 2024-05-16 16:10 | CON.PCM.GI_ITS ---
HPI Consult Data Date of Consult: 05/16/24 HPI Narrative Reason for Consultation: GI bleed HPI Narrative: SVEN WALKER, is a 74 F who presents with complaints of nausea, vomiting, diarrhea and intermittent chest discomfort with patient not prescribed Tamiflu due to concerns that it may exacerbate her nausea and vomiting who presents to [facility] ER planing of black liquid stools. Mrs. Walker reports her symptoms began approximately 2 days prior to admission with the abrupt-onset of black liquid stools that were voluminous. She also admits to associated lightheadedness, dizziness and falls on May 13, 2024 and May 14, 2024 but she denies loss of consciousness or significant head trauma with her falls along with fever up to 100.6 ?F earlier today which improved after acetaminophen. She denies similar previous episodes as her previous thrombosed external hemorrhoids are generally productive of bright red blood. She denies hematuria, back pain, polydipsia, polyphagia or polyuria. In the ER patient was diagnosed with suspected UGIB causing melanotic stools. [facility] Medical History HLD (hyperlipidemia) Cancer of kidney Cirrhosis of liver not due to alcohol Goiter Depression History of renal carcinoma Stage 3a chronic kidney disease (CKD) Bilateral carotid artery stenosis (10/27/20) Complete heart block Thrombosed external hemorrhoid Osteoporosis Cancer Irregular heart beat DVT (deep venous thrombosis) TIA (transient ischemic attack) Rectal pain Chronic anemia Obesity PAF (paroxysmal atrial fibrillation) Asthma Diabetes Hemorrhoids Arthritis Hypertension VTE (venous thromboembolism) CVA (cerebral vascular accident) Home Medications ?Medication ?Instructions ?Recorded ?Last Taken ?Type acetaminophen 325 mg tablet 1,000 mg PO QHS 06/26/16 0 06/29/16 History 1000 mg loratadine 10 mg tablet 10 mg PO QHS 30 days 7 Unknown Rx docusate sodium 100 mg capsule 200 mg PO QHS 01/21/23 Unknown History (Colace) multivitamin (Daily Multi-Vitamin 1 tab PO DAILY 01/21 Unknown History tablet) hydrocortisone 2.5 % topical cream 1 applic [place] QD-BID PRN hemorrhoids 02/04/23 Unknown History with perineal applicator (Anusol-HC) promethazine 12.5 mg tablet 12.5 mg PO Q6H PRN nausea and 02/04/23 Unknown History vomiting losartan 25 mg tablet 12.5 mg (1/2 x 25 mg) PO ORION LY #45 08/15/23 Unknown Rx tabs metoprolol tartrate 50 mg tablet 50 mg PO BID #180 tab s 02/24/24 Unknown Rx rosuvastatin 20 mg tablet 20 mg PO QHS #90 tabs Unknown Rx glipizide 10 mg tablet, extended 10 mg PO BID 04/18/24 Unknown History release 24 hr ondansetron 4 mg disintegrating 4 mg PO Q8H PRN PRN Na usea #10 tabs 05/14/24 Unknown Rx tablet warfarin 2.5 mg tablet 2.5 mg PO MOTUWETH 05/15/24 Unknown History warfarin 5 mg tablet 5 mg PO .FRSASU 05/15/24 Unk nown History Allergy/AdvReac Type Severity Reaction Status Date / Time simvastatin Allergy Severe Unknown Verified 05/15/24 16:48 etodolac AdvReac Intermediate GI upset Verified 05/15/24 16:48 gabapentin AdvReac Intermediate dizziness Verified 05/15/24 16:48 NSAIDS (Non-Steroidal AdvReac Intermediate GI upset Verified 05/15/24 16:48 Anti-Inflamma sulfamethoxazole AdvReac Intermediate Sulfa Verified 05/15/24 16:48 drugs GI upset sulfametrole AdvReac Intermediate GI upset Verified 05/15/24 16:48 valdecoxib (From Bextra) AdvReac Intermediate GI upset Verified 05/15/24 16:48 atorvastatin AdvReac Unknown unknown Verified 05/15/24 16:48 codeine AdvReac Unknown unknown Verified 05/15/24 16:48 guaifenesin (From Entex [place]) AdvReac Unknown unknown Verified 05/15/24 16:48 hydrocodone AdvReac Unknown unknown Verified 05/15/24 16:48 naproxen (From Naprosyn) AdvReac Unknown unknown Verified 05/15/24 16:48 phenylephrine (From Entex [place]) AdvReac Unknown unknown Verified 05/15/24 16:48 phenylpropanolamine (From AdvReac Unknown unknown Verified 05/15/24 16:48 Entex [place]) pravastatin AdvReac Unknown unknown Verified 05/15/24 16:48 quinapril (From Accupril) AdvReac Unknown Unknown Verified 05/15/24 16:48 rofecoxib (From Vioxx) AdvReac Unknown unknown Verified 05/15/24 16:48 Sulfa (Sulfonamide AdvReac Unknown Diarrhea Verified 05/15/24 16:48 Antibiotics) tramadol AdvReac Unknown unknown Verified 05/15/24 16:48 celecoxib (From Celebrex) AdvReac Nausea/Vom/ Verified 05/15/24 16:48 Diarrhea fluoxetine HCl (From Prozac) AdvReac Other Verified 05/15/24 16:48 isosorbide AdvReac Other Verified 05/15/24 16:48 metformin AdvReac Nausea/Vom/ Verified 05/15/24 16:48 Diarrhea Family History Mother CVA (cerebral vascular accident) Diabetes Heart disease Father CVA (cerebral vascular accident) Diabetes Heart disease 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 (current) use of 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 Surgical History S/P placement of cardiac pacemaker History of incision and drainage H/O partial nephrectomy History of hysterectomy History of knee replacement History of cholecystectomy History of shoulder surgery History of appendectomy Social History household members: spouse Smoking Status: Never smoker alcohol intake: never substance use type: does not use ROS Constitutional Constitutional: Denies fatigue, fever(s), poor appetite, weight gain or weight loss Gastrointestinal Gastrointestinal: Denies belching, bloating, change in bowel habits, change in stool character, chewing difficulty, coffee ground emesis, constipation, cramping, diarrhea, dyspepsia, dysphagia, early satiety, excessive flatus, fecal incontinence, heartburn, hematemesis, hematochezia, hemorrhoids, loose stools, melena, nausea, odynophagia, rectal bleeding, tenesmus, vomiting or weight changes Physical Exam Const alert, oriented x3, no apparent distress and healthy appearing General Appearance: cooperative GI normal to inspection, nondistended, normoactive bowel sounds, soft to palpation, non-tender and non-distended Percussion: normal to percussion Rectal Exam: deferred Lab / Micro Data 05/16/24 05:47 05/16/24 05:47 Labs: Laboratory Results - last 24 hr 05/15/24 17:15: WBC 7.2, RBC 4.16 L, Hgb 11.5 L, Hct 35.3 L, MCV 84.9, MCH 27.6, MCHC 32.6, RDW Std Deviation 45.5 H, RDW Coeff of Rukhsana 14.6, Plt Count 154, MPV 11.4, Immature Gran % (Auto) 0.400, Neut % (Auto) 67.4, Lymph % (Auto) 21.6, M samy % (Auto) 10.2 H, Eos % (Auto) 0.1, Baso % (Auto) 0.3, Absolute Neuts (auto) 4.8, Absolute Lymphs (auto) 1.55, Nucleated RBC % 0, PT 19.9 H, INR 1.7, Sodium 135, Potassium 3.8, Chloride 100, Carbon Dioxide 21.2, Anion Gap 13, BUN 27 H, C reatinine 1.23 H, Estim Creat Clear Calc 42.94 L, Est GFR (MDRD) Non-Af 46 L, B UN/Creatinine Ratio 22.1 H, Glucose 222 H, Calcium 9.2, Iron 15 L, TIBC 232 L, I adalberto Saturation 6.5 L, Unsaturated IBC 217 L, Ferritin 247, Total Bilirubin 0.67, AST 52 H, ALT 26, Alkaline Phosphatase 68, Total Protein 7.1, Albumin 3.6, Globulin 3.5, Albumin/Globulin Ratio 1.0 05/15/24 17:30: Blood Type O POSITIVE, Antibody Screen NEGATIVE 05/16/24 04:19: Urine Color Yellow, Urine Clarity Clear, Urine pH 6.0, Ur Specific [place] 1.015, Urine Protein Negative, Urine Glucose (UA) Normal, Urine Ketones Negative, Urine Occult Blood Negative, Urine Nitrite Negative, Urine Bilirubin Negative, Urine Urobilinogen Normal, Ur Leukocyte Esterase Negative, Urine RBC 0 SEEN, Urine WBC 0 SEEN, Ur Squamous Epith Cells 0 SEEN, Urine Bacteria 0 SEEN, Urine Mucus 0 SEEN 05/16/24 05:47: WBC 5.1, RBC 3.89 L, Hgb 10.7 L, Hct 33.0 L, MCV 84.8, MCH 27.5, MCHC 32.4, RDW Std Deviation 45.3 H, RDW Coeff of Rukhsana 14.6, Plt Count 141 L, MPV 11.8, Immature Gran % (Auto) 0.200, Neut % (Auto) 62.9, Lymph % (Auto) 27.1, [place] % (Auto) 8.6, Eos % (Auto) 0.8, Baso % (Auto) 0.4, Absolute Neuts (auto) 3.2, Absolute Lymphs (auto) 1.38, Nucleated RBC % 0, PT 19.0 H, INR 1.6, Sodium 137, Potassium 3.9, Chloride 103, Carbon Dioxide 20.5 L, Anion Gap 13, BUN 19, Creatinine 0.97, Estim Creat Clear Calc 54.29, Est GFR (MDRD) Non-Af 60, BUN/Creatinine Ratio 19.7, Glucose 157 H, Hemoglobin A1c 8.0, Calcium 8.9, P hosphorus 2.5 L, Magnesium 1.8, Total Bilirubin 0.49, AST 45 H, ALT 22, Alkaline Phosphatase 62, Total Protein 6.7, Albumin 3.4, Globulin 3.3, Albumin/Globulin Ratio 1.0, TSH 1.170 05/16/24 12:06: POC Glucose 120 H Micro: Microbiology 05/15/24 17:15 Stool Stool Occult Blood (MANDY) - Final Imaging Radiology Impression Chest CT 05/16/24 02:30 IMPRESSION: Minor scarring. Versus subsegmental atelectasis within the left lung. No definite evidence of pneumonia. Other findings as above. One or more dose reduction techniques were used (e.g., Automated exposure control, adjustment of the mA and/or kV according to patient size, use of iterative reconstruction technique). Reading Location: [facility] Brain CT 05/16/24 02:39 IMPRESSION: Mild mucoperiosteal thickening involving the bilateral ethmoids. Correlate clinically for sinus disease. No acute intracranial hemorrhage, mass effect or midline shift. Reading Location: [facility] Assessment & Plan Assessment/Plan (1) GI bleed: PLAN: Very pleasant 74-year-old comes in with GI bleed suspect upper GI bleed source. She is on a PPI drip. Warfarin held (not causing the bleeding, but exacerbating it) Hg down slightly to 10.7 (from 11.5). She was explained alternatives, risk and benefits include not withstanding bleeding, infection, sepsis, perforation, need emergent urgent . She have an ASA of 3. Charges/Coding Visit Charges Inpatient E&M: 36576 Init Hosp L3
--- NOTE | 2024-05-16 16:31 | OP.EGD_ITS ---
Patient Name: Laisha Walker Procedure Date: 05/16/2024 4:03 PM Date of : 1950 Age: 74 Procedure: Upper GI endoscopy Indications: Epigastric abdominal pain, Melena Providers: Omer Jane DO Medicines: Monitored Anesthesia Care Patient Profile: This is a 74 year old female. Refer to note in patient chart for documentation of history and physical. Patient has symptoms of acute epigastric abdominal pain. Complications: No immediate complications. Procedure: Pre-Anesthesia Assessment: - Prior to the procedure, a History and Physical was performed, and patient medications and allergies were reviewed. The patient is competent. The risks and benefits of the procedure and the sedation options and risks were discussed with the patient. All questions were answered and informed consent was obtained. Patient identification and proposed procedure were verified by the physician in the pre-procedure area. Mental Status Examination: alert and oriented. Airway Examination: normal oropharyngeal airway and neck mobility. Respiratory Examination: clear to auscultation. CV Examination: normal. ASA Grade Assessment: II - A patient with mild systemic disease. After reviewing the risks and benefits, the patient was deemed in satisfactory condition to undergo the procedure. The anesthesia plan was to use monitored anesthesia care (MAC). Immediately prior to administration of medications, the patient was re-assessed for adequacy to receive sedatives. The heart rate, respiratory rate, oxygen saturations, blood pressure, adequacy of pulmonary ventilation, and response to care were monitored throughout the procedure. The physical status of the patient was re-assessed after the procedure. After obtaining informed consent, the endoscope was passed under direct vision. Throughout the procedure, the patient's blood pressure, pulse, and oxygen saturations were monitored continuously. The Endoscope was introduced through the mouth, and advanced to the third part of the duodenum. Small bowel enteroscopy was deemed necessary. The upper GI endoscopy was accomplished without difficulty. The patient tolerated the procedure well. Scope In: 4:22:44 PM Scope Out: 4:25:39 PM Total Procedure Duration Time 0 hours 2 minutes 55 seconds Findings: The examined esophagus was normal. A small hiatal hernia was present. No other significant abnormalities were identified in a careful examination of the stomach. One non-bleeding cratered duodenal ulcer with pigmented material was found in the first portion of the duodenum. The lesion was 20 mm in largest dimension. Impression: - No specimens collected. Recommendation: - Discharge patient to home. - Full liquid diet today. - No aspirin, ibuprofen, naproxen, or other non-steroidal anti-inflammatory drugs for 12 weeks. - Use Protonix (pantoprazole) 40 mg PO BID for 3 months. - Use sucralfate tablets 1 gram PO QID for 2 months. Procedure Code(s): --- Professional --- 89358, Small intestinal endoscopy, enteroscopy beyond second portion of duodenum, not including ileum; diagnostic, including collection of specimen(s) by brushing or washing, when performed (separate procedure) CPT copyright 2021 [employer] [place] [employer]. All rights reserved. The codes documented in this report are preliminary and upon automobile salesman review may be revised to meet current compliance requirements. Omer Jane DO 05/16/2024 4:30:46 PM This report has been signed electronically. Number of Addenda: 0 Note Initiated On: 05/16/2024 4:03 PM
--- NOTE | 2024-05-16 16:31 | OP.CCLET_ITS ---
05/16/2024 Alexys Tracy [address] [place] [address] Re : Upper GI endoscopy procedure for Orlandoholden Floresmer Dear Dr. Tracy This procedure was performed on Thursday, May 16, 2024. My impressions and recommendations are as follows: Impressions : - No specimens collected. Recommendations : - Discharge patient to home. - Full liquid diet today. - No aspirin, ibuprofen, naproxen, or other non-steroidal anti-inflammatory drugs for 12 weeks. - Use Protonix (pantoprazole) 40 mg PO BID for 3 months. - Use sucralfate tablets 1 gram PO QID for 2 months. My findings are described in the full procedure note, which is enclosed. If I can be of further assistance, please feel free to contact me at . Sincerely, Omer Friend, 05/16/2024 4:30:46 PM This report has been signed electronically.
--- NOTE | 2024-05-16 16:37 | PCM.POST.ANE ---
Anesthesia: Postop Eval I Current Vital Signs Temperature: 98.9 F Pulse Rate: 102 Blood Pressure: 159/55 Respiratory Rate: 20 Pulse Ox: 93 Assessment Airway patent: Yes Spontaneous unlabored respirations: Yes nausea: No Vomiting: No Anesthesia Complication: No Fluid Hydration Crystalloid volume administer (ml): 100 Total IV fluid infused: 100 Progress Note Anesthesia document: Postop Eval 1 completed: Yes
--- NOTE | 2024-05-16 16:48 | POSTOPAN2_ITS ---
Anesthesia Postop Eval I Sum Postop Eval Completion status Anesthesia document: Postop Eval 1 completed: Yes Anesthesia Postop Eval I Summary Anesthesia Postop Eval I Summary: Anesthesia Postop Eval I: Assessment Summary Airway patent Yes 05/16/24 16:37 PROVINCE [email or web address].[email or web address] Spontaneous unlabored Yes 05/16/24 16:37 PROVINCE ARCHIVIST.TNES respirations Mental status nausea No 05/16/24 16:37 PROVINCE ARCHIVIST.TNES Vomiting No 05/16/24 16:37 PROVINCE [email or web address].TNES Anesthesia Postop Eval I: Fluid Summary Crystalloid volume administer 100 05/16/24 16:37 PROVINCE ARCHIVIST.TNES (ml) Colloids volume administered ( ml) Blood Product volume administered (ml) Total IV fluid infused 100 05/16/24 16:37 PROVINCE [email or web address].TNES Anesthesia Postop Eval I: Summary Notes Anesthesia Complication No 05/16/24 16:37 PROVINCE [email or web address].TNES Anesthesia Complication Comment: Post-operative progress note Anesthesia: Postop Eval II Evaluation Mental status: Awake Pain Level: 0 nausea: No Vomiting: No
--- NOTE | 2024-05-16 16:48 | PCM.POSTANE2 ---
Anesthesia Postop Eval I Sum Postop Eval Completion status Anesthesia document: Postop Eval 1 completed: Yes Anesthesia Postop Eval I Summary Anesthesia Postop Eval I Summary: Anesthesia Postop Eval I: Assessment Summary Airway patent Yes 05/16/24 16:37 GRINDER OUTSIDE [email or web address] Spontaneous unlabored Yes 05/16/24 16:37 GRINDER OUTSIDE DIAMETER.TNES respirations Mental status nausea No 05/16/24 16:37 GRINDER OUTSIDE DIAMETER.TNES Vomiting No 05/16/24 16:37 GRINDER OUTSIDE DIAMETER.TNES Anesthesia Postop Eval I: Fluid Summary Crystalloid volume administer 100 05/16/24 16:37 GRINDER OUTSIDE DIAMETER.TNES (ml) Colloids volume administered ( ml) Blood Product volume administered (ml) Total IV fluid infused 100 05/16/24 16:37 GRINDER OUTSIDE [email or web address].TNES Anesthesia Postop Eval I: Summary Notes Anesthesia Complication No 05/16/24 16:37 GRINDER OUTSIDE [email or web address].TNES Anesthesia Complication Comment: Post-operative progress note Anesthesia: Postop Eval II Evaluation Mental status: Awake Pain Level: 0 nausea: No Vomiting: No
[2024-05-16 18:50] LABS: Bedside Glucose 120 mg/dL (74-106)
--- NOTE | 2024-05-16 19:10 | CT_ITS ---
PROCEDURE: CT abdomen pelvis with IV contrast REASON FOR EXAM: Pain, duodenal ulcer TECHNIQUE: Multiple contiguous axial images through the abdomen and pelvis were obtained after the administration of intravenous contrast. Two-dimensional coronal and sagittal reformatted images were reconstructed. Low-dose imaging technique was utilized. COMPARISON: 05/14/2024 FINDINGS: Lung bases are clear. Coronary artery calcifications. Cirrhotic morphology of the liver. Spleen, pancreas and adrenal glands are intact. Gallbladder is surgically absent. No significant biliary ductal dilation. Kidneys enhance symmetrically. No suspicious renal mass, calculi or hydronephrosis. Right renal atrophy and scarring along the inferior pole. Left renal cyst. Urinary bladder is intact. Moderate focal wall thickening of the 1st segment of the duodenum with moderate surrounding edema/inflammation. No periduodenal abscess or free air. Minimal edema/trace ascites also tracks along the right mesentery and right pericolic gutter toward the pelvis. No bowel obstruction. Severely calcified nonaneurysmal abdominal aorta. A couple mildly prominent periduodenal lymph nodes, likely reactive. No bulky retroperitoneal adenopathy. Small fat containing right inguinal hernia. No acute osseous abnormality. CT/Abdomen/Pelvis WITH Contrast IMPRESSION: 1. Moderate focal wall thickening of the proximal duodenum with surrounding conrado ma/inflammation likely related to the history of duodenal ulcer. No sanna duodenal abscess or free air. 2. Mild mesenteric edema in the right upper quadrant and along the right cristian lic gutter likely related to #1. 3. Cirrhosis. 4. Additional findings as above. One or more dose reduction techniques were used (e.g., Automated exposure contr ol, adjustment of the mA and/or kV according to patient size, use of iterative reconstruction technique). Reading Location: [facility]
[2024-05-16] MEDS: Pantoprazole Sodium 40 MG in 0.9% Normal Saline (100mL MB+) 100 ML 330 MG IV (21:47)
[2024-05-17 00:33] LABS: Bedside Glucose 137 mg/dL (74-106)
[2024-05-17 04:00] VITALS: BP 150/63; PULSE 93; RESP 16; TEMP 36.1; O2SAT 93
[2024-05-17] MEDS: Sucralfate 1 GM Tablet PO ×2 (05:51→12:00)
[2024-05-17 05:55] LABS: Absolute Lymphocyte Count 1.28 X10^3/uL (0.83-4.51); Absolute Neutrophil Count 2.4 X10^3/uL (2.0-7.7); Basophil# 0.01 X10^3/uL; Basophil% 0.2 % (0-1); Eosinophil# 0.03 X10^3/uL; Eosinophils% 0.7 % (0-5); Hematocrit 29.2 % (37-47); Hemoglobin 9.7 g/dL (12.0-15.0); Lymphocyte # 1.28 X10^3/ul (0.83-4.51); Lymphocyte % 31.8 % (19-41); Mean Corp Hgb Conc 33.2 g/dL (32-36); Mean Corpuscular Volume 84.1 fL (81-99); Mean Platelet Vol. 11.2 fl (6.2-12.0); Monocyte# 0.34 X10^3/uL; Monocyte% 8.5 % (0-10); NRBC Flagged by Analyzer 0 % (0-5); Neutrophil # 2.35 X10^3/uL (2.7-7.7); Neutrophil % 58.6 % (47-70); Platelet Count 145 K/mm3 (150-450); RBC Distribution Width CV 14.6 % (11.6-14.6); RBC Distribution Width SD 44.4 fl (35.1-43.9); Red Blood Count 3.47 M/mm3 (4.2-5.4)
[2024-05-17 06:00] VITALS: BMI 36.0
[2024-05-17 06:32] LABS: Anion Gap 13 (5-15); BUN 13 mg/dL (4-19); BUN/Creat Ratio 14.2 RATIO (10-20); Calcium,Total 8.4 mg/dL (7.6-11.0); Carbon Dioxide 19.2 mmol/L (21.0-32.0); Chloride 103 mmol/L (98-108); Creatinine, Serum 0.91 mg/dL (0.70-1.20); EST Glomerular Filtration Rate 66 (>60); Estimated Creatinine Clearance 58.87 ml/min (50-250); Glucose 111 mg/dL (70-99); Magnesium 1.5 mg/dL (1.5-2.2); Potassium 3.6 mmol/L (3.3-5.1); Sodium Level 135 mmol/L (133-145)
[2024-05-17 07:12] LABS: Bedside Glucose 112 mg/dL (74-106)
--- NOTE | 2024-05-17 07:38 | PN.HOSP_ITS ---
Reason for Visit Reason for Visit: Diagnoses Obesity, unspecified (05/15/24) Paroxysmal atrial fibrillation (05/15/24) Influenza due to other identified influenza virus with other respiratory manifestations (05/15/24) Chronic maxillary sinusitis (05/15/24) Chronic ethmoidal sinusitis (05/15/24) Unspecified cirrhosis of liver (05/15/24) Melena (05/15/24) Gastrointestinal hemorrhage, unspecified (05/15/24) Adverse effect of unspecified drugs, medicaments and biological substances, initial encounter (05/15/24) Subjective Subjective Had some black and brown stool. Some abdominal pain. Objective Data Objective Data Vital Signs: Vital Signs Temp Pulse Resp BP Pulse Ox O2 Del Method 36.1 C L 93 16 150/63 H 93 Room Air 05/17/24 04:00 05/17/24 04:00 05/17/24 04:00 05/17/24 04:00 05/17/24 04:00 05/17/24 05:00 Oxygen Delivery Method Room Air Weight: 95.2 kg Body Mass Index (BMI) 36.0 Intake & Output: Intake and Output for Last 24 Hours 05/15/24 05/16/24 05/17/24 23:59 23:59 23:59 Intake Total 610 / 610 2870.34 / 3270.34 855 / 855 Balance 610 / 610 2870.34 / 3270.34 855 / 855 Lab / Micro Data 05/17/24 05:37 05/17/24 05:37 Labs: Laboratory Results - last 24 hr 05/16/24 04:19: Urine Color Yellow, Urine Clarity Clear, Urine pH 6.0, Ur Specific [place] 1.015, Urine Protein Negative, Urine Glucose (UA) Normal, Urine Ketones Negative, Urine Occult Blood Negative, Urine Nitrite Negative, Urine Bilirubin Negative, Urine Urobilinogen Normal, Ur Leukocyte Esterase Negative, Urine RBC 0 SEEN, Urine WBC 0 SEEN, Ur Squamous Epith Cells 0 SEEN, Urine Bacteria 0 SEEN, Urine Mucus 0 SEEN 05/16/24 12:06: POC Glucose 120 H 05/16/24 18:25: POC Glucose 120 H 05/17/24 00:14: POC Glucose 137 H 05/17/24 05:37: WBC 4.0 L, RBC 3.47 L, Hgb 9.7 L, Hct 29.2 L, MCV 84.1, MCH 28.0, MCHC 33.2, RDW Std Deviation 44.4 H, RDW Coeff of Rukhsana 14.6, Plt Count 145 L, MPV 11.2, Immature Gran % (Auto) 0.200, Neut % (Auto) 58.6, Lymph % (Auto) 31.8, [place] % (Auto) 8.5, Eos % (Auto) 0.7, Baso % (Auto) 0.2, Absolute Neuts (auto) 2.4, Absolute Lymphs (auto) 1.28, Nucleated RBC % 0, Sodium 135, Potassium 3.6, Chloride 103, Carbon Dioxide 19.2 L, Anion Gap 13, BUN 13, Creatinine 0.91, Estim Creat Clear Calc 58.87, Est GFR (MDRD) Non-Af 66, BUN/Creatinine Ratio 14.2, Glucose 111 H, Calcium 8.4, Phosphorus 3.0, Magnesium 1.5 05/17/24 05:49: POC Glucose 112 H Micro: Microbiology 05/15/24 17:15 Stool Stool Occult Blood (MANDY) - Final Radiography Diagnostic Testing: Radiology Impression Abdomen/Pelvis CT 05/16/24 19:10 IMPRESSION: 1. Moderate focal wall thickening of the proximal duodenum with surrounding edema/inflammation likely related to the history of duodenal ulcer. No sanna duodenal abscess or free air. 2. Mild mesenteric edema in the right upper quadrant and along the right pericolic gutter likely related to #1. 3. Cirrhosis. 4. Additional findings as above. One or more dose reduction techniques were used (e.g., Automated exposure control, adjustment of the mA and/or kV according to patient size, use of iterative reconstruction technique). [facility] Physical Exam Const alert and no apparent distress HEENT head/scalp atraumatic and moist oral mucous membranes Resp normal respiratory effort, no retractions, no use of accessory muscles and clear to auscultation bilaterally Cardio regular rate, regular rhythm, S1 normal heart sound and S2 normal heart sound GI normal to inspection, nondistended, normoactive bowel sounds, soft to palpation, non-tender and non-distended Assessment & Plan Assessment/Plan (1) GI bleed: PLAN: PPI gtt. Unclear source, but suspect upper source. Warfarin held (not causing the bleeding, but exacerbating it) Hg down slightly to 9.7 (from 11.5). EGD on the show abdominal normal esophagus, small hiatal hernia, nonbleeding cratered duodenal ulcer with pigmented material. Suspect that bleeding that the patient had was due to this duodenal ulcer. Patient continue with pantoprazole and Sucre fate. (2) Debility: PLAN: Patient had falls at home. Case management spoke with patient's in the afternoon on and patient declines home health care. Patient will follow-up with outpatient therapy. PLAN: Plan Chronic conditions: * pAfib: warfarin held given GIB. Continue metoprolol * HTN: losartan * DM2: glipizide held. SSI. VTE prophylaxis: SCDs. Charges/Coding Visit Charges Inpatient E&M: 74769 Subs Hosp L2
[2024-05-17 08:55] VITALS: BP 162/76; PULSE 99; RESP 20; TEMP 36.9; O2SAT 98
[2024-05-17] MEDS: 0.9% Saline Lock 10 ML Syringe IV (09:06)
[2024-05-17] MEDS: Pantoprazole Sodium 40 MG in 0.9% Normal Saline (100mL MB+) 100 ML 330 MG IV (09:06)
[2024-05-17 12:26] LABS: Hematocrit 32.4 % (37-47); Hemoglobin 10.5 g/dL (12.0-15.0)
--- NOTE | 2024-05-17 12:29 | DS.PCM_ITS ---
Providers Date of Admission: 05/15/24 Primary Care Physician: Dr. Alexys Tracy MD Consultations 05/15/24 23:22 Consult: Gastroenterology Routine Consulting Provider: [facility] Reason for Consult: UGIB with Melanotic Stools on Warfarin. EMERGENT Consult: No MD Notified: Yes Date Notified: 05/16/24 Time Notified: 07:42 Method of Notification: Text Reason For Visit: UGIB WITH MELANOTIC STOOLS & ADVERSE DRUG REACTION Diagnosis Discharge Diagnosis (1) GI bleed: Status: Acute Code(s): K92.2 - Gastrointestinal hemorrhage, unspecified Plan: PPI gtt. Unclear source, but suspect upper source. Warfarin held (not causing the bleeding, but exacerbating it) Hg down slightly to 9.7 (from 11.5). EGD on the show abdominal normal esophagus, small hiatal hernia, nonbleeding cratered duodenal ulcer with pigmented material. Suspect that bleeding that the patient had was due to this duodenal ulcer. Patient continue with pantoprazole and Sucre fate. (2) Debility: Status: Acute Code(s): R53.81 - Other malaise Plan: Patient had falls at home. Case management spoke with patient's in the afternoon on and patient declines home health care. Patient will follow-up with outpatient therapy. Plan Chronic conditions: * pAfib: warfarin held given GIB. Continue metoprolol * HTN: losartan * DM2: glipizide held. SSI. VTE prophylaxis: SCDs. Medications at Discharge Home Medications acetaminophen 325 mg tablet 1,000 mg PO QHS 06/26/16 loratadine 10 mg tablet 10 mg PO QHS 30 days 07/23/16 docusate sodium 100 mg capsule (Colace) 200 mg PO QHS 01/21/23 multivitamin (Daily Multi-Vitamin tablet) 1 tab PO DAILY 01/21/23 hydrocortisone 2.5 % topical cream with perineal applicator (Anusol-HC) 1 applic LA QD-BID PRN hemorrhoids 02/04/23 promethazine 12.5 mg tablet 12.5 mg PO Q6H PRN nausea and vomiting 02/04/23 losartan 25 mg tablet 12.5 mg (1/2 x 25 mg) PO DAILY #45 tabs 08/15/23 metoprolol tartrate 50 mg tablet 50 mg PO BID #180 tabs 02/24/24 rosuvastatin 20 mg tablet 20 mg PO QHS #90 tabs 03/13/24 glipizide 10 mg tablet, extended release 24 hr 10 mg PO BID 04/18/24 ondansetron 4 mg disintegrating tablet 4 mg PO Q8H PRN PRN Nausea #10 tabs 05/14/24 warfarin 2.5 mg tablet 2.5 mg PO MOTUWETH 05/15/24 Held on 05/17/24. Instructions: Resume on 05/21/24. warfarin 5 mg tablet 5 mg PO .FRSASU 05/15/24 Held on 05/17/24. Instructions: Resume on 05/20/24. pantoprazole 40 mg tablet,delayed release 40 mg PO BID #60 tabs 05/17/24 sucralfate 1 gram tablet 1 g PO TIDAC #90 tabs 05/17/24 Hospital Course Operations None Procedures EGD Summary of Care Provided Minutes Spent on Discharge: 31 Hospital Course: Patient presents with melena. Patient underwent an EGD on the that showed a duodenal ulcer that was not bleeding. Patient was started on pantoprazole drip prior to that and Sucre fate. Patient remained stable and hemoglobin remained stable. Family made concerned about her ability but the medical plan is for patient to go home with outpatient therapy. Weight / BMI Weight Weight: 95.2 kg Body Mass Index (BMI) 36.0 ABG / Lab / Microbiology Data 05/17/24 10:30 05/17/24 05:37 Laboratory: Laboratory Results - last 24 hr 05/16/24 04:19: Urine RBC 0 SEEN 05/16/24 12:06: POC Glucose 120 H 05/16/24 18:25: POC Glucose 120 H 05/17/24 00:14: POC Glucose 137 H 05/17/24 05:37: WBC 4.0 L, RBC 3.47 L, Hgb 9.7 L, Hct 29.2 L, MCV 84.1, MCH 28.0, MCHC 33.2, RDW Std Deviation 44.4 H, RDW Coeff of Rukhsana 14.6, Plt Count 145 L, MPV 11.2, Immature Gran % (Auto) 0.200, Neut % (Auto) 58.6, Lymph % (Auto) 31.8, Maries % (Auto) 8.5, Eos % (Auto) 0.7, Baso % (Auto) 0.2, Absolute Neuts (auto) 2.4, Absolute Lymphs (auto) 1.28, Nucleated RBC % 0, Sodium 135, Potassium 3.6, Chloride 103, Carbon Dioxide 19.2 L, Anion Gap 13, BUN 13, Creatinine 0.91, Estim Creat Clear Calc 58.87, Est GFR (MDRD) Non-Af 66, BUN/Creatinine Ratio 14.2, Glucose 111 H, Calcium 8.4, Phosphorus 3.0, Magnesium 1.5 05/17/24 05:49: POC Glucose 112 H 05/17/24 10:30: Hgb 10.5 L, Hct 32.4 L Microbiology: Microbiology 05/15/24 17:15 Stool Stool Occult Blood (MANDY) - Final Radiography Diagnostic Testing: Radiology Impression Abdomen/Pelvis CT 05/16/24 19:10 IMPRESSION: 1. Moderate focal wall thickening of the proximal duodenum with surrounding edema/inflammation likely related to the history of duodenal ulcer. No sanna duodenal abscess or free air. 2. Mild mesenteric edema in the right upper quadrant and along the right pericolic gutter likely related to #1. 3. Cirrhosis. 4. Additional findings as above. One or more dose reduction techniques were used (e.g., Automated exposure control, adjustment of the mA and/or kV according to patient size, use of iterative reconstruction technique). Reading Location: [facility] Instructions Discharge Diet: No restrictions DC O2, CPAP, BIPAP Needs Home O2 Discharge instructions: No Meaningful Use Info Meaningful Use Meaningful Use Diagnoses (Choose all that apply): None applicable Ischemic Stroke Statin Dosing Therapy Reference: STATIN DOSE THERAPY REFERENCE: * Patients > 75 years receive moderate or high dose statin therapy. * Patients 75 years or YOUNGER should receive HIGH intensity statin dose unless contraindicated. You will be required to document reason for non-treatment if statin daily dose does not meet guidelines. HIGH DOSE STATIN THERAPY DAILY Atorvastatin > than or = to 40 mg Rosuvastatin > than or = to 20 mg Amlodipine + Atorvastatin > than or = to 2.5/40 mg Ezetimibe + Simvastatin 10/80 mg Simvastatin 80mg Discharge Plan Admission Admit Date/Time: 05/15/24 22:27 Primary Reason for Your Visit: GI bleed. Attending Provider: Adonis Love Primary Care Provider: Alexys Tracy Consulting Providers: [place] Instructions Additional Instructions / Restrictions: You had bleeding due to an ulcer in your duodenum. There is no longer bleeding but you will be on medication with Protonix and Sucre fate. If you have recurrent bleeding, notify your physician or return to the emergency room. We will hold off on your warfarin for 2 more days. Then you can resume that at that time. Please have your INR check later next week with you primary care physician. Discharge Orders/Prescriptions Prescriptions: New sucralfate 1 gram Tablet 1 g PO TIDAC Qty: 90 0RF pantoprazole 40 mg tablet,delayed release (DR/EC) 40 mg PO BID Qty: 60 0RF Continued promethazine 12.5 mg tablet 12.5 mg PO Q6H PRN (Reason: nausea and vomiting) hydrocortisone [Anusol-HC] 2.5 % cream with perineal applicator 1 applic LA QD-BID PRN (Reason: hemorrhoids) glipizide 10 mg tablet extended release 24hr 10 mg PO BID acetaminophen 325 MG tablet 1,000 mg PO QHS Patient Comments: pain control loratadine 10 MG tablet 10 mg PO QHS 30 Days 0RF multivitamin [Daily Multi-Vitamin] Tablet 1 tab PO DAILY docusate sodium [Colace] 100 mg capsule 200 mg PO QHS ondansetron 4 mg tablet,disintegrating 4 mg PO Q8H PRN PRN (Reason: Nausea) Qty: 10 0RF losartan 25 mg tablet 12.5 mg PO DAILY Qty: 45 3RF Rx Instructions: Hold for SBP less than 130 mmHg metoprolol tartrate 50 mg tablet 50 mg PO BID Qty: 180 3RF rosuvastatin 20 mg tablet 20 mg PO QHS Qty: 90 3RF Held warfarin 5 mg tablet 5 mg PO .FRSASU Hold Instructions: Resume on 05/20/24. warfarin 2.5 mg tablet 2.5 mg PO MOTUWETH Hold Instructions: Resume on 05/21/24. Protocol: Dose Management Condition: Tuesday Dose/Route: 5 mg Instruction: 2 x 2.5 mg tablets Condition: Tuesday Dose/Route: 2.5 mg Instruction: 1 x 2.5 mg tablet Condition: Tuesday Dose/Route: 2.5 mg Instruction: 1 x 2.5 mg tablet Condition: Tuesday Dose/Route: 2.5 mg Instruction: 1 x 2.5 mg tablet Condition: Dose/Route: 2.5 mg Instruction: 1 x 2.5 mg tablet Condition: Tuesday Dose/Route: 5 mg Instruction: 2 x 2.5 mg tablets Condition: Tuesday Dose/Route: 5 mg Instruction: 2 x 2.5 mg tablets Protocol Text: Adjustment Start Date: Tuesday05/02/24 INR Value: 2.2 INR Date: 05/02/24 Recheck Date: 06/01/24 Rx Instructions: 2.5 mg orally 1 tablet (2.5 mg) on Tuesday, Tuesday, Tuesday, and ; 2 tablets together to = 5mg on Tuesday, Tuesday and Tuesday at bedtdime; dose changes often, please give extra tablets Other Ambulatory Orders: Physical Therapy Evaluation (Routine) Location: None Selected Ordered By: Dr. Adonis Love Referrals / Follow Up: Alexys Tracy MD [Primary Care Provider] - Within 2 Weeks [facility] [Provider Group] - Within 1 Month Disposition Disposition (needs filled in before D/C Order can be placed): Home, Self Care Charges/Coding Visit Charges Inpatient E&M: 38274 Disch Hosp >30min
[2024-05-17 12:30] LABS: Bedside Glucose 145 mg/dL (74-106)
--- NOTE | 2024-05-17 13:44 | CASEMGMT ---
ALONDRA MARCIAL NOTE: DC order is in. Script for OP therapy obtained from Dr Love and given to pt. Pt is aware she is to hold her warfarin fpr 2 days and to f/u with PCP or tax assistant to have INR checked. ALONDRA MARCIAL advised her to f/u with physician re: INR result and to verify if warfarin is to be resumed. Pt aware Rx's have been sent to [facility] and she states she can pick these up today. She denies having further discharge needs. She plans to visit her in the hospital today, as he is being admitted to [facility] today. Huey GANDARA RN CM
[2024-05-17 13:57] VITALS: BP 153/77; PULSE 133; O2SAT 97
[2024-05-17 14:00] VITALS: BP 153/77; PULSE 133
[2024-05-17] MEDS: Metoprolol Tartrate 50 MG Tablet PO (14:00)
--- NOTE | 2024-05-17 14:26 | EKG12_ITS ---
Test Reason : Blood Pressure : */* mmHG Vent. Rate : 70 BPM Atrial Rate : 70 BPM P-R Int : 184 ms QRS Dur : 116 ms QT Int : 426 ms P-R-T Axes : 71 -17 -4 degrees QTcB Int : 460 ms Normal sinus rhythm Left ventricular hypertrophy with QRS widening ( R in aVL , Aryan product ) Abnormal ECG When compared with ECG of 15-May-2024 17:38, MANUAL COMPARISON REQUIRED DATA IS UNCONFIRMED Confirmed by BARBARA BRYANT, RADHA ([id number]), fashion editor ADA LINTON ([id number]) on 05/21/2024 10:52:21 AM Referred By: REBECCA Confirmed By: RADHA JIMEENZ MD
--- NOTE | 2024-05-17 15:12 | PHA.DC_ITS ---
Pharmacy [facility] has performed discharge medication reconciliation and counseling for this patient. 1. PANTOPRAZOLE 40MG PO BID 2. SUCRALFATE 1GM PO TIDAC 3. RESUMES WARFARIN 05/20 The patient's discharge medication list was reviewed for discrepancies and discrepancies were resolved. The patient was counseled on the following discharge medications and changes in medications for homegoing were reviewed. The Reason for Use, instructions for use, and potential side effects were reviewed for all new medications. The patient's questions regarding all of their medications were answered. The patient was able to verbally demonstrate an understanding of their discharge medications. Medications at Discharge Home Medications acetaminophen 325 mg tablet 1,000 mg PO QHS 06/26/16 loratadine 10 mg tablet 10 mg PO QHS 30 days 07/23/16 docusate sodium 100 mg capsule (Colace) 200 mg PO QHS 01/21/23 multivitamin (Daily Multi-Vitamin tablet) 1 tab PO DAILY 01/21/23 hydrocortisone 2.5 % topical cream with perineal applicator (Anusol-HC) 1 applic [place] QD-BID PRN hemorrhoids 02/04/23 promethazine 12.5 mg tablet 12.5 mg PO Q6H PRN nausea and vomiting 02/04/23 losartan 25 mg tablet 12.5 mg (1/2 x 25 mg) PO DAILY #45 tabs 08/15/23 metoprolol tartrate 50 mg tablet 50 mg PO BID #180 tabs 02/24/24 rosuvastatin 20 mg tablet 20 mg PO QHS #90 tabs 03/13/24 glipizide 10 mg tablet, extended release 24 hr 10 mg PO BID 04/18/24 ondansetron 4 mg disintegrating tablet 4 mg PO Q8H PRN PRN Nausea #10 tabs 05/14/24 warfarin 2.5 mg tablet 2.5 mg PO MOTUWETH 05/15/24 Held on 05/17/24. Instructions: Resume on 05/21/24. warfarin 5 mg tablet 5 mg PO .FRSASU 05/15/24 Held on 05/17/24. Instructions: Resume on 05/20/24. pantoprazole 40 mg tablet,delayed release 40 mg PO BID #60 tabs 05/17/24 sucralfate 1 gram tablet 1 g PO TIDAC #90 tabs 05/17/24
== END 2024-05-17 16:03 | disposition home or self-care (01) | DRG 377 ==
LOC: ED 21:27 → PCU 22:56
PROVIDERS: Internal Medicine Gastroenterology; Admitting Provider Internal Medicine; Emergency Provider Emergency Medicine; PCP Family Medicine
PROC: 0DJ08ZZ Inspection of Upper Intestinal Tract, Via Natural or Artificial Opening Endoscopic (ICD-10-PCS; CPT 43235; principal; 2024-05-16 16:40)
DX: K92.2 Gastrointestinal hemorrhage, unspecified (principal); J15.9 Unspecified bacterial pneumonia; E87.20 Acidosis, unspecified; D63.1 Anemia in chronic kidney disease; E11.22 Type 2 diabetes mellitus with diabetic chronic kidney disease; E66.9 Obesity, unspecified; J32.0 Chronic maxillary sinusitis; E78.5 Hyperlipidemia, unspecified; K74.60 Unspecified cirrhosis of liver; I48.0 Paroxysmal atrial fibrillation; N18.32 Chronic kidney disease, stage 3b; I12.9 Hypertensive chronic kidney disease with stage 1 through stage 4 chronic kidney disease, or unspecified chronic kidney disease; J45.909 Unspecified asthma, uncomplicated; K26.9 Duodenal ulcer, unspecified as acute or chronic, without hemorrhage or perforation; I95.1 Orthostatic hypotension; K64.4 Residual hemorrhoidal skin tags; J10.1 Influenza due to other identified influenza virus with other respiratory manifestations; K44.9 Diaphragmatic hernia without obstruction or gangrene; Z68.35 Body mass index [BMI] 35.0-35.9, adult; Z86.718 Personal history of other venous thrombosis and embolism; Z86.73 Personal history of transient ischemic attack (TIA), and cerebral infarction without residual deficits; Z90.710 Acquired absence of both cervix and uterus; Z79.01 Long term (current) use of 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; Z90.5 Acquired absence of kidney; Z85.528 Personal history of other malignant neoplasm of kidney; Z79.02 Long term (current) use of antithrombotics/antiplatelets; Z79.899 Other long term (current) drug therapy; Z88.5 Allergy status to narcotic agent; Z88.8 Allergy status to other drugs, medicaments and biological substances; Z79.84 Long term (current) use of oral hypoglycemic drugs; R53.81 Other malaise; R29.6 Repeated falls
CPT/HCPCS: 36415; 70450; 71045; 71250; 74176; 74177; 80048; 80053; 81001; 82274; 82728; 82962; 83036; 83540; 83550; 83690; 83735; 84100; 84443; 84484; 85014; 85018; 85025; 85027; 85610; 86850; 86900; 86901; 87631; 93005; 96361; 96374; 97116; 97162; 99285; Q9967; A4216

== ENCOUNTER 2024-05-24 12:33 | Outpatient (RCR) | payer MEDICARE, SELFPAY ==
[2024-05-18 16:26] LABS: International Normalized Ratio 1.4
[2024-05-24 13:00] LABS: International Normalized Ratio 1.5; Prothrombin Time (Protime)PT. 18.8 SECONDS (11.7-14.9)
== END 2024-05-24 18:00 | disposition home or self-care (01) ==
LOC: LAB 12:33
PROVIDERS: PCP Family Medicine; Referring Provider Physician Assistant Medical; Visit Provider Physician Assistant Medical
DX: I48.0 Paroxysmal atrial fibrillation (principal); Z79.01 Long term (current) use of 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
CPT/HCPCS: 36415; 85610

== ENCOUNTER 2024-05-30 10:45 | Emergency (ER) | payer MEDICARE, SELFPAY ==
[2024-05-30 10:47] VITALS: BP 168/92; PULSE 92; RESP 18; TEMP 37; O2SAT 97
--- NOTE | 2024-05-30 11:03 | CT_ITS ---
PROCEDURE: CTA CHEST W/WO CONTRAST 05/30/2024 REASON FOR EXAM: CHEST PAIN / ? PE TECHNIQUE: Contrasted CT pulmonary angiogram.. CONTRAST: Isovue 370 VOLUME: 100mL. One or more dose reduction techniques were used (e.g., Automated exposure control, adjustment of the mA and/or kV according to patient size, use of iterative reconstruction technique). RADIATION DOSE SUMMARY: CTDlvol: 20.68 mGy DLP: 428.96 mGycm COMPARISON: Chest CT of 05/16/2024. FINDINGS: Prominent splenic artery calcification is seen. The visualized upper abdomen shows no acute process. Moderate aortic calcification is seen. No aneurysmal dilation is noted areas, in visualized areas. No pleural effusion is seen. No pneumothorax is evident. No evidence of pulmonary embolism. No pulmonary edema is seen. No focal infiltrate is identified. [id number] degenerative changes of the visualized spine are seen. CT/CTA Chest W/WO Contrast IMPRESSION: 1. No evidence of pulmonary embolism. 2. No acute pneumonic process is seen. Reading Location: [id number]
--- NOTE | 2024-05-30 11:03 | EKG12_ITS ---
Test Reason : CP Blood Pressure : */* mmHG Vent. Rate : 86 BPM Atrial Rate : 86 BPM P-R Int : 226 ms QRS Dur : 170 ms QT Int : 438 ms P-R-T Axes : 76 -70 93 degrees QTcB Int : 524 ms Atrial-sensed ventricular-paced rhythm with prolonged AV conduction Abnormal ECG Confirmed by MARLEN BRYANT, CAS ([id number]), design editor SIMI DESAI ([id number]) on 05/31/2024 8:04:02 AM Referred By: MALENA Confirmed By: CAS GEE MD
[2024-05-30 11:10] VITALS: BMI 35.0
[2024-05-30] MEDS: 0.9% Normal Saline (500mL Bag) 500 ML 999 ML IV (11:10)
[2024-05-30] MEDS: traMADol 50 MG Tablet PO ×2 (11:19→12:33)
--- NOTE | 2024-05-30 11:24 | EX.ED.DYSGE1 ---
HPI History of Present Illness Chief Complaint: Chest Pain Informant: patient, spouse/S.O. and family Narrative Narrative: Patient is a 74-year-old female with past med history of hypertension hyperlipidemia atrial fibrillation status post pacemaker placement and Coumadin use. She was admitted to the hospital roughly 2 weeks ago secondary to upper GI bleed and had an EGD performed which showed a duodenal ulcer but no signs of active bleeding. She was advised to stop her Coumadin for a short time secondary to the blood. She states that she has also had a cough for the last week or so and was positive for influenza. She states she has left-sided chest discomfort that has been present for the last few days but states that it was worse this morning and with her recent admission and holding off on her Coumadin she was concerned this could be related to potential pulmonary embolus and therefore comes in for evaluation. [facility] Medical History Pacemaker Obesity (BMI 30-39.9) Cancer of kidney Cirrhosis of liver not due to alcohol Goiter Depression History of renal carcinoma Stage 3a chronic kidney disease (CKD) Bilateral carotid artery stenosis (10/27/20) Complete heart block Thrombosed external hemorrhoid Osteoporosis Cancer Irregular heart beat DVT (deep venous thrombosis) TIA (transient ischemic attack) Rectal pain Chronic anemia Obesity PAF (paroxysmal atrial fibrillation) Asthma Diabetes Hemorrhoids Arthritis Hypertension VTE (venous thromboembolism) CVA (cerebral vascular accident) PAF (paroxysmal atrial fibrillation) HLD (hyperlipidemia) Home Medications ?Medication ?Instructions ?Recorded ?Last Taken ?Type acetaminophen 325 mg tablet 1,000 mg PO QHS 06/26/16 06/29/16 History 1000 mg loratadine 10 mg tablet 10 mg PO QHS 30 days 07/23/16 Unknown Rx docusate sodium 100 mg capsule 200 mg PO QHS 01/21/23 Unknown History (Colace) multivitamin (Daily Multi-Vitamin 1 tab PO DAILY 01/21/23 Unknown History tablet) hydrocortisone 2.5 % topical cream 1 applic NH QD-BID PRN hemorrhoids 02/04/23 Unknown History with perineal applicator (Anusol-HC) promethazine 12.5 mg tablet 12.5 mg PO Q6H PRN nausea and 02/04/23 Unknown History vomiting metoprolol tartrate 50 mg tablet 50 mg PO BID #180 tabs 02/24/24 Unknown Rx rosuvastatin 20 mg tablet 20 mg PO QHS #90 tabs 03/13/24 Unknown Rx glipizide 10 mg tablet, extended 10 mg PO BID 04/18/24 Unknown History release 24 hr ondansetron 4 mg disintegrating 4 mg PO Q8H PRN PRN Nausea #10 tabs 05/14/24 Unknown Rx tablet warfarin 2.5 mg tablet 2.5 mg PO MOTUWETH 05/15/24 Unknown History Held on 05/17/24. Instructions: Resume on 05/21/24. warfarin 5 mg tablet 5 mg PO .FRSASU 05/15/24 Unknown History Held on 05/17/24. Instructions: Resume on 05/20/24. pantoprazole 40 mg tablet,delayed 40 mg PO BID #60 tabs 05/17/24 Unknown Rx release sucralfate 1 gram tablet 1 g PO TIDAC #90 tabs 05/17/24 Unknown Rx losartan 25 mg tablet 12.5 mg (1/2 x 25 mg) PO DAILY #45 05/21/24 Unknown Rx tabs methocarbamol 500 mg tablet 500 mg PO 4X/DAY PRN Muscle 05/30/24 Unknown Rx pain/spasm #40 tabs tramadol 50 mg tablet 50 mg PO Q6H PRN pain 3 days #12 05/30/24 Unknown Rx tabs Allergy/AdvReac Type Severity Reaction Status Date / Time simvastatin Allergy Severe Unknown Verified 05/15/24 16:48 etodolac AdvReac Intermediate GI upset Verified 05/15/24 16:48 gabapentin AdvReac Intermediate dizziness Verified 05/15/24 16:48 NSAIDS (Non-Steroidal AdvReac Intermediate GI upset Verified 05/15/24 16:48 Anti-Inflamma sulfamethoxazole AdvReac Intermediate Sulfa Verified 05/15/24 16:48 drugs GI upset sulfametrole AdvReac Intermediate GI upset Verified 05/15/24 16:48 valdecoxib (From Bextra) AdvReac Intermediate GI upset Verified 05/15/24 16:48 atorvastatin AdvReac Unknown unknown Verified 05/15/24 16:48 codeine AdvReac Unknown unknown Verified 05/15/24 16:48 guaifenesin (From Entex [place]) AdvReac Unknown unknown Verified 05/15/24 16:48 hydrocodone AdvReac Unknown unknown Verified 05/15/24 16:48 naproxen (From Naprosyn) AdvReac Unknown unknown Verified 05/15/24 16:48 phenylephrine (From Entex [place]) AdvReac Unknown unknown Verified 05/15/24 16:48 phenylpropanolamine (From AdvReac Unknown unknown Verified 05/15/24 16:48 Entex [place]) pravastatin AdvReac Unknown unknown Verified 05/15/24 16:48 quinapril (From Accupril) AdvReac Unknown Unknown Verified 05/15/24 16:48 rofecoxib (From Vioxx) AdvReac Unknown unknown Verified 05/15/24 16:48 Sulfa (Sulfonamide AdvReac Unknown Diarrhea Verified 05/15/24 16:48 Antibiotics) tramadol AdvReac Unknown unknown Verified 05/15/24 16:48 celecoxib (From Celebrex) AdvReac Nausea/Vom/ Verified 05/15/24 16:48 Diarrhea fluoxetine HCl (From Prozac) AdvReac Other Verified 05/15/24 16:48 isosorbide AdvReac Other Verified 05/15/24 16:48 metformin AdvReac Nausea/Vom/ Verified 05/15/24 16:48 Diarrhea Family History Mother CVA (cerebral vascular accident) Diabetes Heart disease Father CVA (cerebral vascular accident) Diabetes Heart disease Other longterm (current) use of 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 Surgical History (Updated 05/22/24 @ 00:03 by Background Joaquin) S/P placement of cardiac pacemaker History of incision and drainage H/O partial nephrectomy History of hysterectomy History of knee replacement History of cholecystectomy History of shoulder surgery History of appendectomy Social History household members: spouse Smoking Status: Never smoker alcohol intake: never substance use type: does not use ROS ROS ED Constitutional Constitutional ED: Denies chills or fever(s) Eyes Eyes: Denies change in vision ENT ENT ED: Denies sore throat Cardiovascular Cardiovascular: Reports chest pain; Denies palpitations or racing heartbeat Respiratory/Chest Respiratory/Chest: Reports cough; Denies dyspnea Gastrointestinal Gastrointestinal: Reports diarrhea; Denies abdominal pain, melena, nausea or vomiting Genitourinary Genitourinary ED: Denies dysuria Musculoskeletal Musculoskeletal: Reports myalgias Integumentary Denies rash Neurologic Neurologic: Denies headache(s) Hematologic/Lymphatic Hematologic/Lymphatic: Reports easy bleeding and easy bruising EXAM Physical Exam Const Vital Signs: 05/30/24 10:47 05/30/24 11:15 05/30/24 11:50 Temperature 98.6 F Temperature Source Temporal Pulse Rate 92 80 Respiratory Rate 18 17 Respiratory Effort Normal Blood Pressure 168/92 H 137/121 H Blood Pressure Mean 117 126 Pulse Ox 97 100 Oxygen Delivery Method Room Air Room Air Room Air 05/30/24 11:50 05/30/24 12:00 05/30/24 12:57 Temperature 98.9 F 98.1 F 98.1 F Temperature Source Oral Oral Oral Pulse Rate 84 74 81 Respiratory Rate 17 19 H 19 H Respiratory Effort Blood Pressure 137/121 H 174/77 H 174/77 H Blood Pressure Mean 126 109 109 Pulse Ox 100 95 98 Oxygen Delivery Method Room Air Room Air Room Air 05/30/24 13:59 Temperature Temperature Source Pulse Rate 78 Respiratory Rate 22 H Respiratory Effort Blood Pressure 153/58 H Blood Pressure Mean 89 Pulse Ox 94 Oxygen Delivery Method Room Air Positive well nourished and well developed General Appearance ED: well developed; Negative for pallor HEENT HEENT Narrative: No tongue or lip swelling no oral lesions no airway edema or compromise No secondary findings in the posterior pharynx to suggest infection Eyes PERRL and EOMs intact bilaterally General Eye ED: Negative for scleral icterus Neck supple and no JVD Neck Narrative: No nuchal rigidity or meningeal signs noted Chest Wall Chest Narrative: There is reproducible pain on palpation of the left chest wall without bony deformity or subcutaneous emphysema noted No overlying soft tissue changes to suggest trauma or infection Resp normal respiratory effort Resp Narrative: Breath sounds are diminished throughout with rhonchi in the bilateral bases but no nasal flaring retractions tachypnea or accessory muscle use Cardio regular rate and regular rhythm GI non-tender, non-distended and no masses GI Narrative: Soft nontender nondistended with hyperactive bowel sounds no voluntary guarding or rigidity or pulsatile mass Auscultation: hyperactive bowel sounds Palpation: soft Extremity normal to inspection Extremity Narrative: No asymmetric edema no pitting edema negative Homans' sign bilaterally Neuro oriented x3, CN's II-XII intact bilaterally and no sensory deficits noted Sensorium / Orientation: alert Motor Exam: strength 5/5 throughout Psych Mood & Affect: anxious Skin no rashes or lesions noted General Skin Exam: Negative for jaundice or pallor MDM MDM MDM Narrative Medical decision making narrative: Patient arrived to the ER in no acute distress. She had reducible chest wall pain indicating her pain is most likely musculoskeletal in nature. However because of her recent hospital admission and the fact she had to come off of her Coumadin because of a upper GI bleed there is concern for potential pulmonary embolus. Patient could also have an esophageal tear secondary to a recent EGD. There is potential for pneumonia or pneumothorax as well. There is also concern for acute coronary syndrome. Therefore at this time I did elect to perform basic laboratory studies with a CTA of the chest. Lab revealed no clinically significant findings. Patient's initial and delta troponin were both 19 going against ACS. Her CTA revealed no acute lung pathology. After receiving tramadol and IV morphine she did have near resolution of her pain and vitals remained stable. Therefore at this time I do not feel there is need for further workup and she is otherwise safe for discharge with symptomatic care History & Record Review Discussion w/independent historian: Patient, Family and Significant other Lab Data Attestation: I reviewed the patient's lab results. Labs: Laboratory Results - last 24 hr 05/30/24 05/30/24 11:22 13:02 WBC 10.4 RBC 4.19 L Hgb 11.6 L Hct 35.2 L MCV 84.0 MCH 27.7 MCHC 33.0 RDW Std Deviation 43.2 RDW Coeff of Rukhsana 14.2 Plt Count 279 MPV 11.4 Immature Gran % (Auto) 0.400 Neut % (Auto) 73.2 H Lymph % (Auto) 17.4 L Benson % (Auto) 7.5 Eos % (Auto) 0.8 Baso % (Auto) 0.7 Absolute Neuts (auto) 7.6 Absolute Lymphs (auto) 1.81 Nucleated RBC % 0 PT 24.7 H INR 2.2 Sodium 138 Potassium 4.3 Chloride 104 Carbon Dioxide 22.4 Anion Gap 12 BUN 16 Creatinine 0.98 Estim Creat Clear Calc 53.89 Est GFR (MDRD) Non-Af 60 BUN/Creatinine Ratio 16.3 Glucose 164 H Calcium 9.7 Magnesium 1.8 Troponin T High Sens 19 H D Troponin T Hi Sens 2 Hr 19 H Radiography Diagnostic Testing: Clinical Impression(s) from Imaging Studies Chest CTA 05/30/24 11:03 IMPRESSION: 1. No evidence of pulmonary embolism. 2. No acute pneumonic process is seen. Reading Location: [address] Discharge Plan Triage Chief Complaint: Chest Pain Other Complaint: Shortness of Breath ED Provider: Timothy James Dx/Rx/DC Orders Clinical Impression: Nonspecific chest pain, HTN (hypertension), Current use of care home anticoagulation, HLD (hyperlipidemia), GERD (gastroesophageal reflux disease) Instructions: ED Chest Pain, Uncertain Cause Prescriptions: New tramadol 50 mg tablet 50 mg PO Q6H PRN (Reason: pain) 3 Days Qty: 12 0RF methocarbamol 500 mg tablet 500 mg PO 4X/DAY PRN (Reason: Muscle pain/spasm) Qty: 40 0RF No Action promethazine 12.5 mg tablet 12.5 mg PO Q6H PRN (Reason: nausea and vomiting) hydrocortisone [Anusol-HC] 2.5 % cream with perineal applicator 1 applic NH QD-BID PRN (Reason: hemorrhoids) glipizide 10 mg tablet extended release 24hr 10 mg PO BID acetaminophen 325 MG tablet 1,000 mg PO QHS Patient Comments: pain control loratadine 10 MG tablet 10 mg PO QHS 30 Days 0RF multivitamin [Daily Multi-Vitamin] Tablet 1 tab PO DAILY docusate sodium [Colace] 100 mg capsule 200 mg PO QHS ondansetron 4 mg tablet,disintegrating 4 mg PO Q8H PRN PRN (Reason: Nausea) Qty: 10 0RF warfarin 5 mg tablet 5 mg PO .FRSASU Protocol: Dose Management Condition: Tuesday Dose/Route: 5 mg Instruction: 1 x 5 mg tablet Condition: Tuesday Dose/Route: 2.5 mg Instruction: 1 x 2.5 mg tablet Condition: Tuesday Dose/Route: 2.5 mg Instruction: 1 x 2.5 mg tablet Condition: Tuesday Dose/Route: 2.5 mg Instruction: 1 x 2.5 mg tablet Condition: Dose/Route: 2.5 mg Instruction: 1 x 2.5 mg tablet Condition: Tuesday Dose/Route: 5 mg Instruction: 1 x 5 mg tablet Condition: Tuesday Dose/Route: 5 mg Instruction: 1 x 5 mg tablet Protocol Text: Adjustment Start Date: 05/24/24 INR Value: 1.5 INR Date: 05/24/24 Recheck Date: 05/31/24 warfarin 2.5 mg tablet 2.5 mg PO MOTUWETH Protocol: Dose Management Condition: Tuesday Dose/Route: 5 mg Instruction: 1 x 5 mg tablet Condition: Tuesday Dose/Route: 2.5 mg Instruction: 1 x 2.5 mg tablet Condition: Tuesday Dose/Route: 2.5 mg Instruction: 1 x 2.5 mg tablet Condition: Tuesday Dose/Route: 2.5 mg Instruction: 1 x 2.5 mg tablet Condition: Dose/Route: 2.5 mg Instruction: 1 x 2.5 mg tablet Condition: Tuesday Dose/Route: 5 mg Instruction: 1 x 5 mg tablet Condition: Tuesday Dose/Route: 5 mg Instruction: 1 x 5 mg tablet Protocol Text: Adjustment Start Date: 05/24/24 INR Value: 1.5 INR Date: 05/24/24 Recheck Date: 05/31/24 Rx Instructions: 2.5 mg orally 1 tablet (2.5 mg) on Tuesday, Tuesday, Tuesday, and ; 2 tablets together to = 5mg on Tuesday, Tuesday and Tuesday at bedtdime; dose changes often, please give extra tablets sucralfate 1 gram Tablet 1 g PO TIDAC Qty: 90 0RF pantoprazole 40 mg tablet,delayed release (DR/EC) 40 mg PO BID Qty: 60 0RF metoprolol tartrate 50 mg tablet 50 mg PO BID Qty: 180 3RF rosuvastatin 20 mg tablet 20 mg PO QHS Qty: 90 3RF losartan 25 mg tablet 12.5 mg PO DAILY Qty: 45 3RF Rx Instructions: Hold for SBP less than 130 mmHg Primary Care Provider: Alexys Tracy Referrals: Alexys Tracy MD [Primary Care Provider] - Activity Restrictions/Additional Instructions: Your workup today showed no sign of heart attack or blood clot or pneumonia indicating your chest pain is most likely musculoskeletal. Take the prescribed medication as directed to help control symptoms and you may use pnct-tqa-[id number] medications such as IcyHot Bengay or lidocaine patches to help as well. Return to the ER should you have any further concerns Print Language: Upper Sorbian Disposition Disposition: Home, Self Care
[2024-05-30 11:30] LABS: Absolute Lymphocyte Count 1.81 X10^3/uL (0.83-4.51); Absolute Neutrophil Count 7.6 X10^3/uL (2.0-7.7); Basophil# 0.07 X10^3/uL; Basophil% 0.7 % (0-1); Eosinophil# 0.08 X10^3/uL; Eosinophils% 0.8 % (0-5); Hematocrit 35.2 % (37-47); Hemoglobin 11.6 g/dL (12.0-15.0); Lymphocyte # 1.81 X10^3/ul (0.83-4.51); Lymphocyte % 17.4 % (19-41); Mean Corpuscular Hgb 27.7 pg (27.0-32.0); Mean Platelet Vol. 11.4 fl (6.2-12.0); Monocyte# 0.78 X10^3/uL; Monocyte% 7.5 % (0-10); NRBC Flagged by Analyzer 0 % (0-5); Neutrophil % 73.2 % (47-70); Platelet Count 279 K/mm3 (150-450); RBC Distribution Width CV 14.2 % (11.6-14.6); RBC Distribution Width SD 43.2 fl (35.1-43.9); Red Blood Count 4.19 M/mm3 (4.2-5.4); White Blood Count 10.4 K/mm3 (4.4-11.0)
[2024-05-30 11:40] LABS: International Normalized Ratio 2.2; Prothrombin Time (Protime)PT. 24.7 SECONDS (11.7-14.9)
[2024-05-30 11:50] VITALS: BP 137/121; PULSE 80; PULSE 84; RESP 17; TEMP 37.2; O2SAT 100
[2024-05-30 12:00] VITALS: BP 174/77; PULSE 74; RESP 19; TEMP 36.7; O2SAT 95
[2024-05-30 12:13] LABS: Anion Gap 12 (5-15); BUN 16 mg/dL (4-19); BUN/Creat Ratio 16.3 RATIO (10-20); Calcium,Total 9.7 mg/dL (7.6-11.0); Carbon Dioxide 22.4 mmol/L (21.0-32.0); Chloride 104 mmol/L (98-108); Creatinine, Serum 0.98 mg/dL (0.70-1.20); EST Glomerular Filtration Rate 60 (>60); Estimated Creatinine Clearance 53.89 ml/min (50-250); Glucose 164 mg/dL (70-99); Magnesium 1.8 mg/dL (1.5-2.2); Potassium 4.3 mmol/L (3.3-5.1); Sodium Level 138 mmol/L (133-145)
[2024-05-30 12:35] LABS: Troponin T High Sensitivity 19 ng/L (<=14)
[2024-05-30 12:57] VITALS: BP 174/77; PULSE 81; RESP 19; TEMP 36.7; O2SAT 98
[2024-05-30] MEDS: Ondansetron 4 MG/2 ML Vial IV (13:25)
[2024-05-30] MEDS: Morphine 2 MG/ML Syringe IV (13:25)
[2024-05-30 13:45] LABS: Troponin T High Sens 2 HR 19 ng/L (<=14)
[2024-05-30 13:59] VITALS: BP 153/58; PULSE 78; RESP 22; O2SAT 94
[2024-05-30 14:10] VITALS: BP 141/52; PULSE 77; RESP 19; TEMP 36.8; O2SAT 98
== END 2024-05-30 14:26 | disposition home or self-care (01) ==
PROVIDERS: Emergency Provider Emergency Medicine; PCP Family Medicine; Visit Provider Emergency Medicine
DX: R07.89 Other chest pain (principal); I48.0 Paroxysmal atrial fibrillation; E11.22 Type 2 diabetes mellitus with diabetic chronic kidney disease; N18.31 Chronic kidney disease, stage 3a; E78.5 Hyperlipidemia, unspecified; I12.9 Hypertensive chronic kidney disease with stage 1 through stage 4 chronic kidney disease, or unspecified chronic kidney disease; K21.9 Gastro-esophageal reflux disease without esophagitis; Z79.01 Long term (current) use of 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; Z95.0 Presence of cardiac pacemaker
CPT/HCPCS: 71275; 80048; 83735; 84484; 85025; 85610; 93005; 96361; 96374; 96375; 99284; Q9967; A4216; J2405

== ENCOUNTER 2024-06-02 04:40 | Observation (INO) | payer MEDICARE, SELFPAY ==
[2024-06-02] VITALS (10 sets, daily range): BP systolic 114–160; BP diastolic 51–78; PULSE 66–80; RESP 16–18; TEMP 36.6–36.9; O2SAT 94–98; BMI 34.7; BMI 34.4
--- NOTE | 2024-06-02 04:56 | CT_ITS ---
EXAM: ABDOMEN/PELVIS W IV CONT ONLY 06/02/2024 CLINICAL HISTORY: Abdomen pain, back pain fall COMPARISON: 05/16/2024 TECHNIQUE: CT of the abdomen and pelvis with contrast with coronal and sagittal reformatted images. 99 cc Isovue 370 contrast intravenous FINDINGS: Diffusely nodular appearing liver surface contour may represent cirrhosis. Status post cholecystectomy. The adrenal glands, left kidney, pancreas and spleen appear within limits. Large exophytic left lower pole renal cyst again seen. Changes at the lower pole of the right kidney consistent with reported history of previous partial nephrectomy. Likely tiny hepatic cyst left lobe near the dome again seen. Aortoiliac atherosclerotic changes. No abdominal aortic aneurysm. Circumaortic left renal vein, incidental anatomic variant. No bowel dilation or free air. The appendix is not identified, no secondary signs. The bladder appears within limits. No free fluid seen. Status post apparent hysterectomy. Previous inflammatory changes at the duodenum and alexandr hepatis essentially resolved. Linwood artifact from right femoral intramedullary nail. No acute fracture. Lower lumbar spondylosis/discogenic change. CT/Abdomen/Pelvis W IV Cont ONLY IMPRESSION: No evidence of acute intra-abdominal traumatic injury. Possible cirrhosis again noted. Status post cholecystectomy and partial right nephrectomy. Reading Location: [id number]
--- NOTE | 2024-06-02 04:56 | EKG12_ITS ---
Test Reason : DYSRHYTHMIA Blood Pressure : */* mmHG Vent. Rate : 149 BPM Atrial Rate : 84 BPM P-R Int : * ms QRS Dur : 176 ms QT Int : 388 ms P-R-T Axes : 76 -67 92 degrees QTcB Int : 611 ms Normal sinus rhythm at 75 Ventricular electronic pacer tracking Sinus Rhythm Abnormal ECG Confirmed by Chago Dodge ([id number]), art editor SIMI DESAI ([id number]) on 06/07/2024 10:01:42 AM Referred By: Confirmed By: Chago Dodge
--- NOTE | 2024-06-02 04:56 | CT_ITS ---
EXAM: SPINE CERVICAL WITHOUT CONTRAS 06/02/2024 CLINICAL HISTORY: Trauma COMPARISON: 07/15/2023 TECHNIQUE: Noncontrast cervical spine CT with coronal and sagittal reformatted images FINDINGS: No fracture or malalignment. The disc spaces appear within limits. No prevertebral soft tissue swelling. Bilateral facet multilevel degenerative changes again noted. Carotid vascular calcifications. Heterogeneous and somewhat lobular prominent appearance of the thyroid with left lobe larger than right and areas of calcification again noted. May follow-up with thyroid ultrasound as warranted. Visualized apices appear clear. CT/Spine Cervical without Contras IMPRESSION: No fracture or malalignment. Reading Location: [id number]
--- NOTE | 2024-06-02 04:56 | CT_ITS ---
EXAM: BRAIN/HEAD WITHOUT CONTRAST 06/02/2024 CLINICAL HISTORY: Trauma COMPARISON: 05/16/2024 TECHNIQUE: Noncontrast head CT with coronal and sagittal reformatted images FINDINGS: No intracranial hemorrhage, mass effect or calvarial fracture. The ventricles are unchanged in size and remain midline. Age commensurate chronic and involutional changes again noted. Visualized paranasal sinuses, mastoids and orbits appear within limits. Vascular calcifications again noted. CT/Brain/Head without Contrast IMPRESSION: No intracranial hemorrhage, mass effect or calvarial fracture. Reading Location: [id number]
--- NOTE | 2024-06-02 04:56 | CT_ITS ---
EXAM: CHEST WITHOUT CONTRAST 06/02/2024 CLINICAL HISTORY: Back pain COMPARISON: 05/30/2024 TECHNIQUE: Noncontrast CT of the chest with coronal and sagittal reformatted images FINDINGS: Dual-chamber pacemaker again noted. Thoracic aorta appears within limits on noncontrast imaging. Atherosclerotic changes of the arch and descending thoracic aorta. Coronary calcifications appear heavy. No pericardial or pleural effusion. Heterogeneous nodular appearing thyroid with areas of calcification again seen. The central airways are patent. Mild dependent basilar atelectasis. The lungs otherwise appear clear. No pneumothorax. Suggestion of right shoulder rotator cuff calcific tendinosis. No acute fracture identified. CT/Chest without Contrast IMPRESSION: No evidence of acute intrathoracic traumatic injury on noncontrast imaging. Reading Location: [id number]
--- NOTE | 2024-06-02 04:59 | EX.ED.GENINJ ---
HPI History of Present Illness Chief Complaint: Fall Narrative Narrative: Patient is a 74-year-old female with past medical history of chronic kidney disease, complete heart block with pacemaker, renal cell carcinoma, DVT on warfarin, TIA, paroxysmal A-fib, diabetes, hyperlipidemia, hypertension who presented to the emerged part with chief complaint of fall. Patient states that she was attempted to go use the restroom walking with her rollator when she lost her balance falling backwards hitting her head against the wall. Patient is complaining of some back pain as well states that she has had back pain for the last several days. Patient states that she did not pass out she remembers the entire event. [facility] Medical History Pacemaker Obesity (BMI 30-39.9) Cancer of kidney Cirrhosis of liver not due to alcohol Goiter Depression History of renal carcinoma Stage 3a chronic kidney disease (CKD) Bilateral carotid artery stenosis (10/27/20) Complete heart block Thrombosed external hemorrhoid Osteoporosis Cancer Irregular heart beat DVT (deep venous thrombosis) TIA (transient ischemic attack) Rectal pain Chronic anemia Obesity PAF (paroxysmal atrial fibrillation) Asthma Diabetes Hemorrhoids Arthritis Hypertension VTE (venous thromboembolism) CVA (cerebral vascular accident) PAF (paroxysmal atrial fibrillation) HLD (hyperlipidemia) Home Medications ?Medication ?Instructions ?Recorded ?Last Taken ?Type acetaminophen 325 mg tablet 1,000 mg PO QHS 06/26/16 06/29/16 History 1000 mg loratadine 10 mg tablet 10 mg PO QHS 30 days 07/23/16 Unknown Rx docusate sodium 100 mg capsule 200 mg PO QHS 01/21/23 Unknown History (Colace) multivitamin (Daily Multi-Vitamin 1 tab PO DAILY 01/21/23 Unknown History tablet) hydrocortisone 2.5 % topical cream 1 applic [place] QD-BID PRN hemorrhoids 02/04/23 Unknown History with perineal applicator (Anusol-HC) promethazine 12.5 mg tablet 12.5 mg PO Q6H PRN nausea and 02/04/23 Unknown History vomiting metoprolol tartrate 50 mg tablet 50 mg PO BID #180 tabs 02/24/24 Unknown Rx rosuvastatin 20 mg tablet 20 mg PO QHS #90 tabs 03/13/24 Unknown Rx glipizide 10 mg tablet, extended 10 mg PO BID 04/18/24 Unknown History release 24 hr ondansetron 4 mg disintegrating 4 mg PO Q8H PRN PRN Nausea #10 tabs 05/14/24 Unknown Rx tablet warfarin 2.5 mg tablet 2.5 mg PO MOTUWETH 05/15/24 Unknown History warfarin 5 mg tablet 5 mg PO .FRSASU 05/15/24 Unknown History pantoprazole 40 mg tablet,delayed 40 mg PO BID #60 tabs 05/17/24 Unknown Rx release sucralfate 1 gram tablet 1 g PO TIDAC #90 tabs 05/17/24 Unknown Rx losartan 25 mg tablet 12.5 mg (1/2 x 25 mg) PO DAILY #45 05/21/24 Unknown Rx tabs methocarbamol 500 mg tablet 500 mg PO 4X/DAY PRN Muscle 05/30/24 Unknown Rx pain/spasm #40 tabs tramadol 50 mg tablet 50 mg PO Q6H PRN pain 3 days #12 05/30/24 Unknown Rx tabs Allergy/AdvReac Type Severity Reaction Status Date / Time simvastatin Allergy Severe Unknown Verified 06/02/24 04:41 etodolac AdvReac Intermediate GI upset Verified 06/02/24 04:41 gabapentin AdvReac Intermediate dizziness Verified 06/02/24 04:41 NSAIDS (Non-Steroidal AdvReac Intermediate GI upset Verified 06/02/24 04:41 Anti-Inflamma sulfamethoxazole AdvReac Intermediate Sulfa Verified 06/02/24 04:41 drugs GI upset sulfametrole AdvReac Intermediate GI upset Verified 06/02/24 04:41 valdecoxib (From Bextra) AdvReac Intermediate GI upset Verified 06/02/24 04:41 atorvastatin AdvReac Unknown unknown Verified 06/02/24 04:41 codeine AdvReac Unknown unknown Verified 06/02/24 04:41 guaifenesin (From Entex [place]) AdvReac Unknown unknown Verified 06/02/24 04:41 hydrocodone AdvReac Unknown unknown Verified 06/02/24 04:41 naproxen (From Naprosyn) AdvReac Unknown unknown Verified 06/02/24 04:41 phenylephrine (From Entex [place]) AdvReac Unknown unknown Verified 06/02/24 04:41 phenylpropanolamine (From AdvReac Unknown unknown Verified 06/02/24 04:41 Entex [place]) pravastatin AdvReac Unknown unknown Verified 06/02/24 04:41 quinapril (From Accupril) AdvReac Unknown Unknown Verified 06/02/24 04:41 rofecoxib (From Vioxx) AdvReac Unknown unknown Verified 06/02/24 04:41 Sulfa (Sulfonamide AdvReac Unknown Diarrhea Verified 06/02/24 04:41 Antibiotics) tramadol AdvReac Unknown unknown Verified 06/02/24 04:41 celecoxib (From Celebrex) AdvReac Nausea/Vom/ Verified 06/02/24 04:41 Diarrhea fluoxetine HCl (From Prozac) AdvReac Other Verified 06/02/24 04:41 isosorbide AdvReac Other Verified 06/02/24 04:41 metformin AdvReac Nausea/Vom/ Verified 06/02/24 04:41 Diarrhea Family History Mother CVA (cerebral vascular accident) Diabetes Heart disease Father CVA (cerebral vascular accident) Diabetes Heart disease 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 Surgical History S/P placement of cardiac pacemaker History of incision and drainage H/O partial nephrectomy History of hysterectomy History of knee replacement History of cholecystectomy History of shoulder surgery History of appendectomy Social History household members: spouse Smoking Status: Never smoker alcohol intake: never substance use type: does not use ROS ROS ED ROS Narrative Constitutional: Complains of headache denies any lightheadedness dizziness fevers or chills Eyes: Denies change in vision double vision blurry Cardiovascular: Denies chest pain or palpitations Respiratory: Denies coughing wheezing shortness of breath Abdomen: Complains of abdominal pain denies nausea vomit diarrhea : Denies urinary symptoms Neurological: Denies numbness, tingling Musculoskeletal: Complains of back pain as noted above Skin: Denies rashes or lesions EXAM Physical Exam Narrative Exam Narrative: General: Patient was lying in bed rest comfortably did not appear to be in acute distress Head: Atraumatic, normocephalic Eyes: PERRL bilaterally, EOMI bilateral, no conjunctival injection noted Neck: Soft, supple, trachea midline Cardiovascular: Regular rate and rhythm no murmurs gallops rubs noted Respiratory: Clear to auscultation bilaterally Abdomen: Soft, nondistended, nontender to palpation Extremities: +4/5 strength noted in the bilateral upper and lower extremities, radial pulse +2/4 in the bilateral per extremities Neurological: Patient following commands that she was at [facility] years 2024 Skin: Warm, dry, intact no rashes or lesions noted Const Vital Signs: 06/02/24 04:41 06/02/24 04:44 06/02/24 06:40 Temperature 97.8 F 97.8 F Temperature Source Oral Pulse Rate 80 77 Respiratory Rate 18 16 Respiratory Effort Normal Non-Labored Respiratory Depth Normal Respiratory Pattern Normal Blood Pressure 155/78 H 156/57 H Blood Pressure Mean 103 90 Pulse Ox 94 96 Oxygen Delivery Method Room Air Room Air Room Air 06/02/24 07:08 Temperature 98.2 F Temperature Source Pulse Rate 79 Respiratory Rate 18 Respiratory Effort Respiratory Depth Respiratory Pattern Blood Pressure 160/59 H Blood Pressure Mean 92 Pulse Ox 97 Oxygen Delivery Method MDM MDM MDM Narrative Medical decision making narrative: Patient is a 74-year-old female who presented to the emergency department chief complaint of losing her balance and falling backwards hitting her head she is on warfarin. On the differential diagnose includes but limited to intracranial hemorrhage, cervical spine fracture, intra-abdominal hemorrhage, thoracic lumbar fracture, rib fracture. Once workup is obtained reviewed she will be reevaluated. Patient CBC was reviewed and showed a white blood count of 13,000, hemoglobin 10.6, plate count normal at 277. Patient INR of 2.3 within therapeutic range for on warfarin, sodium was 131, potassium normal 4.4, creatinine was 1. Patient's AST and ALT are 2715 respectively. Patient's troponin was noted be 21 delta troponin pending at this point in time. Patient's EKG per computer showed heart rate of 149 bpm her heart rate was not 149 bpm on his EKG was roughly around 75 bpm did show a paced rhythm no Sgarbossa criteria were met. Patient's urinalysis reviewed and showed no evidence of infection. Patient's CT head and brain without contrast showed no acute hemorrhage. Patient CT cervical spine was reviewed and showed no fracture or malalignment. Patient CT chest reviewed and showed no evidence of acute intrathoracic traumatic injury. Patient CT abdomen pelvis with IV contrast showed no acute intra-abdominal traumatic injuries possible cirrhosis again noted status post cholecystectomy and right nephrectomy noted. Patient did ambulate to the bathroom however she felt shaky during this. Patient's delta troponin is pending. After further discussion with the patient and family at bedside she states that given that she was unsteady on her feet and has had multiple falls and multiple visits recently they do believe that she will benefit from rehab. Patient's case will be discussed with hospitalist for admission for PT/OT evaluation for possible placement Discussed case with hospitalist Dr. Carroll who accept the patient for admission. Patient and significant other bedside are agreeable this plan all question concerns answered. Lab Data Labs: Laboratory Results - last 24 hr 06/02/24 06/02/24 05:09 05:10 WBC 13.2 H RBC 3.96 L Hgb 10.9 L Hct 33.2 L MCV 83.8 MCH 27.5 MCHC 32.8 RDW Std Deviation 42.4 RDW Coeff of Rukhsana 13.7 Plt Count 277 MPV 11.7 Immature Gran % (Auto) 0.400 Neut % (Auto) 74.3 H Lymph % (Auto) 12.2 L Foster % (Auto) 12.5 H Eos % (Auto) 0.2 Baso % (Auto) 0.4 Absolute Neuts (auto) 9.8 H Absolute Lymphs (auto) 1.61 Nucleated RBC % 0 Differential Comment SCANNED Diff Path Review July foll PT 25.5 H INR 2.3 APTT 51.1 H Sodium 131 L Potassium 4.4 Chloride 98 Carbon Dioxide 21.1 Anion Gap 12 BUN 15 Creatinine 1.00 Estim Creat Clear Calc 52.57 Est GFR (MDRD) Non-Af 58 L BUN/Creatinine Ratio 15.2 Glucose 190 H Calcium 9.7 Total Bilirubin 1.18 Direct Bilirubin 0.56 H AST 27 ALT 15 Alkaline Phosphatase 78 Troponin T High Sens 21 H D Total Protein 7.7 Albumin 3.6 Globulin 4.1 Urine Color Yellow Urine Clarity Clear Urine pH 6.0 Ur Specific [place] 1.020 Urine Protein 15 H Urine Glucose (UA) 100 H Urine Ketones Negative Urine Occult Blood Negative Urine Nitrite Negative Urine Bilirubin Negative Urine Urobilinogen Normal Ur Leukocyte Esterase Negative Urine RBC 0 SEEN Urine WBC 0 SEEN Ur Squamous Epith Cells 0 SEEN Urine Bacteria 0 SEEN Urine Mucus 0 SEEN Radiography Diagnostic Testing: Clinical Impression(s) from Imaging Studies Abdomen/Pelvis CT 06/02/24 04:56 IMPRESSION: No evidence of acute intra-abdominal traumatic injury. Possible cirrhosis again noted. Status post cholecystectomy and partial right nephrectomy. Reading Location: [facility] Brain CT 06/02/24 04:56 IMPRESSION: No intracranial hemorrhage, mass effect or calvarial fracture. Reading Location: [facility] Cervical Spine CT 06/02/24 04:56 IMPRESSION: No fracture or malalignment. Reading Location: [facility] Chest CT 06/02/24 04:56 IMPRESSION: No evidence of acute intrathoracic traumatic injury on noncontrast imaging. Reading Location: [facility] Discharge Plan Triage Chief Complaint: Fall ED Provider: Ian Brambila Dx/Rx/DC Orders Clinical Impression: Fall, Generalized weakness Prescriptions: No Action promethazine 12.5 mg tablet 12.5 mg PO Q6H PRN (Reason: nausea and vomiting) hydrocortisone [Anusol-HC] 2.5 % cream with perineal applicator 1 applic [place] QD-BID PRN (Reason: hemorrhoids) glipizide 10 mg tablet extended release 24hr 10 mg PO BID acetaminophen 325 MG tablet 1,000 mg PO QHS Patient Comments: pain control loratadine 10 MG tablet 10 mg PO QHS 30 Days 0RF multivitamin [Daily Multi-Vitamin] Tablet 1 tab PO DAILY docusate sodium [Colace] 100 mg capsule 200 mg PO QHS ondansetron 4 mg tablet,disintegrating 4 mg PO Q8H PRN PRN (Reason: Nausea) Qty: 10 0RF warfarin 5 mg tablet [facility] Protocol: Dose Management Condition: Tuesday Dose/Route: 5 mg Instruction: 1 x 5 mg tablet Condition: Tuesday Dose/Route: 2.5 mg Instruction: 1 x 2.5 mg tablet Condition: Tuesday Dose/Route: 2.5 mg Instruction: 1 x 2.5 mg tablet Condition: Tuesday Dose/Route: 2.5 mg Instruction: 1 x 2.5 mg tablet Condition: Dose/Route: 2.5 mg Instruction: 1 x 2.5 mg tablet Condition: Tuesday Dose/Route: 5 mg Instruction: 1 x 5 mg tablet Condition: Tuesday Dose/Route: 5 mg Instruction: 1 x 5 mg tablet Protocol Text: Adjustment Start Date: 05/24/24 INR Value: 1.5 INR Date: 05/24/24 Recheck Date: 05/31/24 warfarin 2.5 mg tablet 2.5 mg PO MOTUWETH Protocol: Dose Management Condition: Tuesday Dose/Route: 5 mg Instruction: 1 x 5 mg tablet Condition: Tuesday Dose/Route: 2.5 mg Instruction: 1 x 2.5 mg tablet Condition: Tuesday Dose/Route: 2.5 mg Instruction: 1 x 2.5 mg tablet Condition: Tuesday Dose/Route: 2.5 mg Instruction: 1 x 2.5 mg tablet Condition: Dose/Route: 2.5 mg Instruction: 1 x 2.5 mg tablet Condition: Tuesday Dose/Route: 5 mg Instruction: 1 x 5 mg tablet Condition: Tuesday Dose/Route: 5 mg Instruction: 1 x 5 mg tablet Protocol Text: Adjustment Start Date: 05/24/24 INR Value: 1.5 INR Date: 05/24/24 Recheck Date: 05/31/24 Rx Instructions: 2.5 mg orally 1 tablet (2.5 mg) on Tuesday, Tuesday, Tuesday, and ; 2 tablets together to = 5mg on Tuesday, Tuesday and Tuesday at bedtdime; dose changes often, please give extra tablets sucralfate 1 gram Tablet 1 g PO TIDAC Qty: 90 0RF pantoprazole 40 mg tablet,delayed release (DR/EC) 40 mg PO BID Qty: 60 0RF tramadol 50 mg tablet 50 mg PO Q6H PRN (Reason: pain) 3 Days Qty: 12 0RF methocarbamol 500 mg tablet 500 mg PO 4X/DAY PRN (Reason: Muscle pain/spasm) Qty: 40 0RF metoprolol tartrate 50 mg tablet 50 mg PO BID Qty: 180 3RF rosuvastatin 20 mg tablet 20 mg PO QHS Qty: 90 3RF losartan 25 mg tablet 12.5 mg PO DAILY Qty: 45 3RF Rx Instructions: Hold for SBP less than 130 mmHg Primary Care Provider: Alexys Tracy Referrals: Alexys Tracy MD [Primary Care Provider] - Print Language: Kazakh Disposition Disposition: Acute Care Hospital [facility]
[2024-06-02] MEDS: 0.9% Normal Saline (1000mL) 1,000 ML 999 ML IV (05:16)
[2024-06-02 05:27] LABS: Bacteria 0 SEEN /hpf (None Seen); Mucous, Urine 0 SEEN /hpf (<or=2+); Squamous Epithelial Cells - UA 0 SEEN /hpf (5-10); White Blood Cells 0 SEEN /hpf (0-5)
[2024-06-02 05:30] LABS: Absolute Lymphocyte Count 1.61 X10^3/uL (0.83-4.51); Absolute Neutrophil Count 9.8 X10^3/uL (2.0-7.7); Basophil# 0.05 X10^3/uL; Basophil% 0.4 % (0-1); Eosinophil# 0.03 X10^3/uL; Eosinophils% 0.2 % (0-5); Hematocrit 33.2 % (37-47); Hemoglobin 10.9 g/dL (12.0-15.0); Lymphocyte # 1.61 X10^3/ul (0.83-4.51); Lymphocyte % 12.2 % (19-41); Mean Corp Hgb Conc 32.8 g/dL (32-36); Mean Corpuscular Hgb 27.5 pg (27.0-32.0); Mean Corpuscular Volume 83.8 fL (81-99); Mean Platelet Vol. 11.7 fl (6.2-12.0); Monocyte# 1.66 X10^3/uL; Monocyte% 12.5 % (0-10); NRBC Flagged by Analyzer 0 % (0-5); Neutrophil # 9.84 X10^3/uL (2.7-7.7); Neutrophil % 74.3 % (47-70); POSITIVE DIFFERENTIAL YES; Platelet Count 277 K/mm3 (150-450); RBC Distribution Width CV 13.7 % (11.6-14.6); RBC Distribution Width SD 42.4 fl (35.1-43.9); Red Blood Count 3.96 M/mm3 (4.2-5.4); White Blood Count 13.2 K/mm3 (4.4-11.0)
[2024-06-02 05:34] LABS: Differential Indicated SCAN CRITERIA MET
[2024-06-02 05:34] LABS: Color, Urine Yellow (Yellow); Glucose, Dipstick 100 mg/dl (Normal); Ketone-Dipstick Negative (Negative); Leukocyte Esterase-Dipstick Negative /ul (Negative); Nitrite-Dipstick Negative (Negative); Occult Blood-Urine Negative /ul (Negative); Protein-Dipstick 15 mg/dl (Negative); Urine Bilirubin Dipstick Negative (Negative); Urine Clarity Clear (Clear); Urine Urobilinogen Normal (Normal)
[2024-06-02 05:46] LABS: International Normalized Ratio 2.3; Prothrombin Time (Protime)PT. 25.5 SECONDS (11.7-14.9)
[2024-06-02 05:51] LABS: Red Blood Cells-Urine 0 SEEN /hpf (0-5)
[2024-06-02 05:55] LABS: AST(SGOT) 27 U/L (<=31); Alanine Aminotransfer ALT/SGPT 15 U/L (<=34); Albumin, Serum 3.6 g/dL (3.4-4.8); Alkaline Phosphatase 78 U/L (35-104); Anion Gap 12 (5-15); BUN 15 mg/dL (4-19); BUN/Creat Ratio 15.2 RATIO (10-20); Bilirubin, Direct 0.56 mg/dL (0.00-0.30); Calcium,Total 9.7 mg/dL (7.6-11.0); Carbon Dioxide 21.1 mmol/L (21.0-32.0); Chloride 98 mmol/L (98-108); EST Glomerular Filtration Rate 58 (>60); Estimated Creatinine Clearance 52.57 ml/min (50-250); Globulin 4.1 g/dL (2.2-4.2); Glucose 190 mg/dL (70-99); Partial Thromboplast Time 51.1 Seconds (24.1-36.2); Potassium 4.4 mmol/L (3.3-5.1); Protein, Total 7.7 g/dL (5.9-8.4); Sodium Level 131 mmol/L (133-145); Total Bilirubin 1.18 mg/dL (0.00-1.30)
[2024-06-02 06:22] LABS: Troponin T High Sensitivity 21 ng/L (<=14)
[2024-06-02 06:33] LABS: Differential Comment SCANNED; Pathologist Review May foll
--- NOTE | 2024-06-02 07:21 | PCM.HP.STD ---
HPI - General General Date of Admission: 06/02/24 Date of Service: 06/02/24 Chief Complaint: Falls HPI Narrative SVEN ALEJO, is a 74 F who presented to the emergency department [facility] on 06/02/2024 early in the morning after she sustained a fall at home. Patient was recently admitted here in mid May at which time she was found to have a duodenal ulcer. She is on Coumadin at baseline for atrial fibrillation and her Coumadin was held. Appears that her hemoglobin is stabilized since that point in time. She was then diagnosed with influenza and was back in the emergency department 3 days ago on the . At that time she was planing of some left-sided flank pain/chest pain and complained of some ongoing coughing. She was stable on room air at 97 to 100% and vitals were otherwise unremarkable at that time. A CTA was performed and was unremarkable for any lung pathology or pulmonary embolus/dissection. She was sent home with a course of Ultram and methocarbamol. Since discharge she has had 2 falls. She has not sustained any serious injury however she is sore. Early this morning she was getting up to use the restroom and walking with her rollator walker and lost her balance falling backwards and hitting her head against the wall. On presentation she was complaining of a sore back. The flank pain that she had previously has still been somewhat problematic. Patient had no loss of consciousness. She also complains of some dysuria. She said no fever or chills. She still is having some intermittent cough related to her recent influenza infection. Vital signs on presentation showed temperature of 97.8, heart rate 80, respiratory rate 18, blood pressure was 155/78 and pulse ox was 94 to 96% on room air. CBC shows a mild leukocytosis with a white count of 13.2. She does have a mild left shift there is a 74.3% neutrophilia. I am unclear if this is reactive or an infectious etiology as patient has no significant infectious concerns other send dysuria and her UA is unremarkable. She has anemia with a hemoglobin of 10.9 which appears to be fairly stable compared to previous. Her INR was 2.3 on presentation. She had mild hyponatremia sodium of 131 renal function is normal. Glucose was 190. Liver functions were unremarkable. Initial troponin was 21 with a repeat of 22. Her troponin was mildly elevated at her last ED visit to 19. UA showed some mild dehydration with a specific gravity of 1.02 but is negative for nitrites, leuk esterase, white cells, and bacteria. She was garland scanned on presentation due to trauma. She did have a CTA of her chest on 05/30/[address] of the abdomen pelvis was unremarkable for any acute findings. CT of the brain was unremarkable for any acute findings. CT of the cervical spine was negative for any acute findings, and CT of her chest was unremarkable for any acute findings [facility] Medical History Pacemaker Obesity (BMI 30-39.9) Cancer of kidney Cirrhosis of liver not due to alcohol Goiter Depression History of renal carcinoma Stage 3a chronic kidney disease (CKD) Bilateral carotid artery stenosis (10/27/20) Complete heart block Thrombosed external hemorrhoid Osteoporosis Cancer Irregular heart beat DVT (deep venous thrombosis) TIA (transient ischemic attack) Rectal pain Chronic anemia Obesity PAF (paroxysmal atrial fibrillation) Asthma Diabetes Hemorrhoids Arthritis Hypertension VTE (venous thromboembolism) CVA (cerebral vascular accident) PAF (paroxysmal atrial fibrillation) HLD (hyperlipidemia) Home Medications ?Medication ?Instructions ?Recorded ?Last Taken ?Type acetaminophen 325 mg tablet 1,000 mg PO QHS 06/26/16 06/29/16 History 1000 mg loratadine 10 mg tablet 10 mg PO QHS 30 days 07/23/16 Unknown Rx docusate sodium 100 mg capsule 200 mg PO QHS 01/21/23 Unknown History (Colace) multivitamin (Daily Multi-Vitamin 1 tab PO DAILY 01/21/23 Unknown History tablet) hydrocortisone 2.5 % topical cream 1 applic CO QD-BID PRN hemorrhoids 02/04/23 Unknown History with perineal applicator (Anusol-HC) promethazine 12.5 mg tablet 12.5 mg PO Q6H PRN nausea and 02/04/23 Unknown History vomiting metoprolol tartrate 50 mg tablet 50 mg PO BID #180 tabs 02/24/24 Unknown Rx rosuvastatin 20 mg tablet 20 mg PO QHS #90 tabs 03/13/24 Unknown Rx glipizide 10 mg tablet, extended 10 mg PO BID 04/18/24 Unknown History release 24 hr ondansetron 4 mg disintegrating 4 mg PO Q8H PRN PRN Nausea #10 tabs 05/14/24 Unknown Rx tablet warfarin 2.5 mg tablet 2.5 mg PO MOTUWETH 05/15/24 Unknown History warfarin 5 mg tablet 5 mg PO .FRSASU 05/15/24 Unknown History pantoprazole 40 mg tablet,delayed 40 mg PO BID #60 tabs 05/17/24 Unknown Rx release sucralfate 1 gram tablet 1 g PO TIDAC #90 tabs 05/17/24 Unknown Rx losartan 25 mg tablet 12.5 mg (1/2 x 25 mg) PO DAILY #45 05/21/24 Unknown Rx tabs methocarbamol 500 mg tablet 500 mg PO 4X/DAY PRN Muscle 05/30/24 Unknown Rx pain/spasm #40 tabs tramadol 50 mg tablet 50 mg PO Q6H PRN pain 3 days #12 05/30/24 Unknown Rx tabs Allergy/AdvReac Type Severity Reaction Status Date / Time simvastatin Allergy Severe Unknown Verified 06/02/24 04:41 etodolac AdvReac Intermediate GI upset Verified 06/02/24 04:41 gabapentin AdvReac Intermediate dizziness Verified 06/02/24 04:41 NSAIDS (Non-Steroidal AdvReac Intermediate GI upset Verified 06/02/24 04:41 Anti-Inflamma sulfamethoxazole AdvReac Intermediate Sulfa Verified 06/02/24 04:41 drugs GI upset sulfametrole AdvReac Intermediate GI upset Verified 06/02/24 04:41 valdecoxib (From Bextra) AdvReac Intermediate GI upset Verified 06/02/24 04:41 atorvastatin AdvReac Unknown unknown Verified 06/02/24 04:41 codeine AdvReac Unknown unknown Verified 06/02/24 04:41 guaifenesin (From Entex [place]) AdvReac Unknown unknown Verified 06/02/24 04:41 hydrocodone AdvReac Unknown unknown Verified 06/02/24 04:41 naproxen (From Naprosyn) AdvReac Unknown unknown Verified 06/02/24 04:41 phenylephrine (From Entex [place]) AdvReac Unknown unknown Verified 06/02/24 04:41 phenylpropanolamine (From AdvReac Unknown unknown Verified 06/02/24 04:41 Entex [place]) pravastatin AdvReac Unknown unknown Verified 06/02/24 04:41 quinapril (From Accupril) AdvReac Unknown Unknown Verified 06/02/24 04:41 rofecoxib (From Vioxx) AdvReac Unknown unknown Verified 06/02/24 04:41 Sulfa (Sulfonamide AdvReac Unknown Diarrhea Verified 06/02/24 04:41 Antibiotics) tramadol AdvReac Unknown unknown Verified 06/02/24 04:41 celecoxib (From Celebrex) AdvReac Nausea/Vom/ Verified 06/02/24 04:41 Diarrhea fluoxetine HCl (From Prozac) AdvReac Other Verified 06/02/24 04:41 isosorbide AdvReac Other Verified 06/02/24 04:41 metformin AdvReac Nausea/Vom/ Verified 06/02/24 04:41 Diarrhea Family History Mother CVA (cerebral vascular accident) Diabetes Heart disease Father CVA (cerebral vascular accident) Diabetes Heart disease Other FPC (current) use of 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 Surgical History S/P placement of cardiac pacemaker History of incision and drainage H/O partial nephrectomy History of hysterectomy History of knee replacement History of cholecystectomy History of shoulder surgery History of appendectomy Social History (Updated 06/02/24 @ 08:[address] Cheryl Carroll DO) household members: spouse Smoking Status: Never smoker alcohol intake: never substance use type: does not use additional social history: Ambulates with a wheeled walker ROS Constitutional Constitutional: Reports fatigue and weakness; Denies anorexia, change in weight, chills, fever(s), malaise, night sweats or other Eyes Eyes: Denies blurry vision, change in eye color, change in vision, discharge from eye(s), double vision, erythema, eye pain, loss of vision or other ENT HEENT: Denies abnormal hearing, dysphagia, ear pain, epistaxis, headache(s), hearing loss, nasal congestion, nasal discharge, post nasal drip, sinus pressure, sore throat or other Cardiovascular Cardiovascular: Denies chest pain, claudication, dyspnea on exertion, edema, lightheadedness, orthopnea, palpitations, paroxysmal nocturnal dyspnea, rapid heart rate, syncope or other Respiratory/Chest Respiratory/Chest: Reports other Details: Left-sided flank pain Gastrointestinal Gastrointestinal: Denies abdominal pain, coffee ground emesis, constipation, diarrhea, dyspepsia, hematemesis, hematochezia, loose stools, melena, nausea, vomiting or other Genitourinary Genitourinary: Reports dysuria; Denies burning urination, difficulty urinating, hematuria, nocturia, urinary frequency, urinary hesitancy, urinary incontinence, urinary urgency or other Musculoskeletal Musculoskeletal: Reports back pain, joint pain, joint stiffness, neck pain and other Details: Left scapular pain, left hip pains, left leg pain ; Denies arthralgias, joint swelling or myalgias Neurologic Neurologic: Reports abnormal gait; Denies abnormal speech, confusion, disequilibrium, dizziness, focal weakness, headache(s), numbness, paresthesias, seizure-like activity, seizures, syncope, tingling, tremor(s) or other Psychiatric Psychiatric: Denies anxiety, depression, homicidal ideation, suicidal ideation or other Endocrine Endocrinology: Denies change in body appearance, cold intolerance, excessive sweating, heat intolerance, polydipsia, polyuria or other Hematologic/Lymphatic Hematologic/Lymphatic: Denies anemia, easy bleeding, easy bruising, lymphadenopathy or other Allergic/Immunologic Allergic/Immunologic: Denies rhinitis, hives, eczemia, asthma or other Vital Signs Vital Signs Vital Signs: 06/02/24 04:41 06/02/24 04:44 06/02/24 06:40 Temperature 97.8 F 97.8 F Temperature Source Oral Pulse Rate 80 77 Respiratory Rate 18 16 Respiratory Effort Normal Non-Labored Respiratory Depth Normal Respiratory Pattern Normal Blood Pressure 155/78 H 156/57 H Blood Pressure Mean 103 90 Pulse Ox 94 96 Oxygen Delivery Method Room Air Room Air Room Air 06/02/24 07:08 Temperature 98.2 F Temperature Source Pulse Rate 79 Respiratory Rate 18 Respiratory Effort Respiratory Depth Respiratory Pattern Blood Pressure 160/59 H Blood Pressure Mean 92 Pulse Ox 97 Oxygen Delivery Method Weight Weight: 91.9 kg Body Mass Index (BMI) 34.7 Physical Exam Const alert, oriented x3, no apparent distress and well nourished; Negative for healthy appearing Constitutional Narrative: Obese, elderly, white female, lying in bed, at bedside, does not appear uncomfortable at this time, pleasant, interacts appropriately General Appearance: cooperative HEENT normocephalic, head/scalp atraumatic, hearing grossly normal bilaterally and moist oral mucous membranes HEENT Narrative: Dentition is poor, Mallampati is 3, no thrush Eyes EOMs intact bilaterally and conjunctivae normal Eyes Narrative: No scleral icterus Neck supple and no JVD Neck Narrative: Trachea midline Resp normal respiratory effort, no retractions, no use of accessory muscles and clear to auscultation bilaterally Auscultation: Negative for rales, rhonchi or wheezes Cardio regular rate, regular rhythm, S1 normal heart sound, S2 normal heart sound, no rub, no gallops and no clicks Cardio Narrative: 3/6 systolic murmur loudest at left lower sternal border GI normal to inspection, nondistended, normoactive bowel sounds, soft to palpation and non-tender Extremity no clubbing, cyanosis or edema Extremity Narrative: Pedal pulses are 2+, scattered areas of ecchymosis Skin Skin Narrative: Scattered areas of new ecchymosis Neuro oriented x3, moves all extremities and no focal motor deficits Speech: speech normal Psych affect normal Results Lab / Micro Data 06/02/24 05:09 06/02/24 05:09 Labs: Laboratory Results - last 24 hr 06/02/24 05:09: WBC 13.2 H, RBC 3.96 L, Hgb 10.9 L, Hct 33.2 L, MCV 83.8, MCH 27.5, MCHC 32.8, RDW Std Deviation 42.4, RDW Coeff of Rukhsana 13.7, Plt Count 277, MPV 11.7, Immature Gran % (Auto) 0.400, Neut % (Auto) 74.3 H, Lymph % (Auto) 12.2 L, [place] % (Auto) 12.5 H, Eos % (Auto) 0.2, Baso % (Auto) 0.4, Absolute Neuts (auto) 9.8 H, Absolute Lymphs (auto) 1.61, Nucleated RBC % 0, Differential Comment SCANNED, Diff Path Review July foll, PT 25.5 H, INR 2.3, APTT 51.1 H, Sodium 131 L, Potassium 4.4, Chloride 98, Carbon Dioxide 21.1, Anion Gap 12, BUN 15, Creatinine 1.00, Estim Creat Clear Calc 52.57, Est GFR (MDRD) Non-Af 58 L, BUN/Creatinine Ratio 15.2, Glucose 190 H, Calcium 9.7, Total Bilirubin 1.18, Direct Bilirubin 0.56 H, AST 27, ALT 15, Alkaline Phosphatase 78, Troponin T High Sens 21 H D, Total Protein 7.7, Albumin 3.6, Globulin 4.1 06/02/24 05:10: Urine Color Yellow, Urine Clarity Clear, Urine pH 6.0, Ur Specific [place] 1.020, Urine Protein 15 H, Urine Glucose (UA) 100 H, Urine Ketones Negative, Urine Occult Blood Negative, Urine Nitrite Negative, Urine Bilirubin Negative, Urine Urobilinogen Normal, Ur Leukocyte Esterase Negative, Urine RBC 0 SEEN, Urine WBC 0 SEEN, Ur Squamous Epith Cells 0 SEEN, Urine Bacteria 0 SEEN, Urine Mucus 0 SEEN Imaging Radiology Impression Abdomen/Pelvis CT 06/02/24 04:56 IMPRESSION: No evidence of acute intra-abdominal traumatic injury. Possible cirrhosis again noted. Status post cholecystectomy and partial right nephrectomy. Reading Location: [facility] Brain CT 06/02/24 04:56 IMPRESSION: No intracranial hemorrhage, mass effect or calvarial fracture. Reading Location: [facility] Cervical Spine CT 06/02/24 04:56 IMPRESSION: No fracture or malalignment. Reading Location: [facility] Chest CT 06/02/24 04:56 IMPRESSION: No evidence of acute intrathoracic traumatic injury on noncontrast imaging. Reading Location: [facility] Assessment & Plan Assessment/Plan (1) Generalized weakness: (2) Fall: (3) Current use of intermediate card tender anticoagulation: (4) Debility: (5) Elevated troponin: (6) Dysuria: PLAN: Plan Falls/generalized weakness/debility -Suspect compounded from recent GI bleed and influenza A infection -No focal deficits -Patient also with significant pain from recent falls but no severe injuries noted on imaging -PT/OT consultation for assistance with functional evaluation -Consult case management/social work assistance with discharge planning as I do suspect patient will need placement prior to going home -Patient does not meet criteria for full admission and will admitted observation. Patient has commercial Medicare and will need pre-CERT prior to discharge Dysuria -UA was completely unremarkable for any signs of infection -Will check culture given symptoms however highly doubt UTI present -Hold off on antibiotics empirically at this point Troponin elevation -Very mild at 21 and 22-suspect related to elevated blood pressure -Was 19 and 19 on her last hospital visit the ED -The chest pain she is experiencing is left lateral and more flank at the ribs and reproducible with palpation -No further workup required at this time Recent GI bleed secondary to peptic ulcer disease -Continue Carafate -Continue Protonix 40 mg p.o. twice daily -Okay to continue Coumadin with stable hemoglobin -Outpatient follow-up with Dr. Jane as previously recommended Recent influenza A infection -Patient still with mild cough -Antitussives available -Suspect contributing to generalized weakness and debility Leukocytosis -Mild -may be reactive from fall -No signs of overt infection -Continue to monitor Carotid artery stenosis -90% stenosis of left w/significant collaterals, 50% stenosis of right per U/S 10/27/2020. Right ICA 20-39% stenosis -Continue outpatient ongoing investigation -Patient states she is supposed to have an appointment on Tuesday Paroxysmal atrial fibrillation with history of complete heart block -Pacemaker in place -Continue home metoprolol Essential hypertension/hyperlipidemia -Continue metoprolol -Continue home losartan -Continue home statin Asymmetric septal hypertrophy -EF of 75% on last echo from January 2023 -Continue ongoing outpatient follow-up with cardiology Liver cirrhosis -Secondary to nonalcoholic fatty liver disease I suspect -Outpatient follow-up DM-2 -Hold home glipizide -SSI as ordered -Accu-Cheks 3 times daily and AC -Will monitor sugars Hemorrhoids -Continue home Anusol History of renal cell carcinoma -Remote Chronic anemia -Hemoglobin is relatively stable -Repeat CBC in a.m. Chronic anticoagulation -For atrial fibrillation -INR is therapeutic -Repeat INR in a.m. DVT prophylaxis -Continue home Coumadin with therapeutic INR presently CODE STATUS -DNR CCA with no intubation as verified at the time of admission Charges/Coding Visit Charges Inpatient E&M: 58146 Init Hosp L2
[2024-06-02 07:44] LABS: Troponin T High Sens 2 HR 22 ng/L (<=14)
[2024-06-02 10:32] LABS: Troponin T High Sens 4 HR 23 ng/L (<=14)
[2024-06-02] MEDS: Lidocaine 5% Patch 1 PATCH TOPICAL (11:16)
[2024-06-02] MEDS: Pantoprazole Sodium 40 MG Tablet PO ×2 (11:16→21:59)
[2024-06-02] MEDS: Sucralfate 1 GM Tablet PO ×2 (11:16→16:54)
[2024-06-02] MEDS: Multivitamins,Therapeutic Tablet 1 TABLET PO (11:17)
[2024-06-02] MEDS: Acetaminophen 500 MG Tablet 1000 MG PO ×2 (11:17→21:59)
[2024-06-02] MEDS: Metoprolol Tartrate 50 MG Tablet PO ×2 (11:20→21:59)
[2024-06-02] MEDS: Insulin Lispro 100 UNIT/ML INSULN.PEN SC ×3 (11:42→22:07)
[2024-06-02 11:57] LABS: Bedside Glucose 276 mg/dL (74-106)
--- NOTE | 2024-06-02 14:39 | CASEMGMT ---
ALONDRA CM in to complete WEBBER form with patient. ALONDRA MARCIAL explained WEBBER form to patient, patient voiced understanding. Patient signed WEBBER Form and filed in chart. Patient provided copy of signed WEBBER Form. Patient had no further questions or concerns.
--- NOTE | 2024-06-02 15:08 | CASEMGMT ---
Social Work- SW met with pt and spouse to discuss preferences at discharge. Pt spouse reports that he is concerned due to all the falls that pt has had recently. Pt spouse reports that pt has a difficult time from sit to stand and it is very challenging for him to assist pt. Pt reports pain in upper L quadrant that pt and pt spouse feel much of her difficulty comes from that pain. Pt reports she often does not want to move due to the pain. SW encouraged pt and pt spouse to discuss concerns with nursing and hospitalist. SW also notified hospitalist. SW provided education on HHC, outpatient therapy, and [facility] facility level of care, as well as the SNF process, precert guidelines, and timeline estimates for referral acceptances and precert determinations. A list of SNF providers including quality and resource use data and consistent with the patient?s preferred geographic region, medical needs, and insurance network were provided from the [employer] Guide. Pt and pt spouse to look over list and SW will follow up Tuesday to discuss if pt and pt spouse feel that SNF continues to be the preferred discharge plan. ONELIA Alonso
[2024-06-02 17:39] LABS: Bedside Glucose 170 mg/dL (74-106)
[2024-06-02] MEDS: Loratadine 10 MG Tablet PO (21:59)
[2024-06-02] MEDS: Docusate Sodium 100 MG Capsule 200 MG PO (21:59)
[2024-06-02] MEDS: Losartan Potassium 25 MG Tablet 12.5 MG PO (22:00)
[2024-06-02] MEDS: Rosuvastatin 20 MG Tablet PO (22:00)
[2024-06-02 23:30] LABS: Bedside Glucose 203 mg/dL (74-106)
[2024-06-03] MEDS: Acetaminophen 500 MG Tablet 1000 MG PO ×3 (07:08→21:12)
[2024-06-03] MEDS: Sucralfate 1 GM Tablet PO ×3 (07:10→16:07)
[2024-06-03 07:18] LABS: Absolute Lymphocyte Count 1.73 X10^3/uL (0.83-4.51); Absolute Neutrophil Count 5.2 X10^3/uL (2.0-7.7); Basophil# 0.05 X10^3/uL; Basophil% 0.6 % (0-1); Eosinophils% 1.3 % (0-5); Hematocrit 28.8 % (37-47); Hemoglobin 9.3 g/dL (12.0-15.0); Lymphocyte # 1.73 X10^3/ul (0.83-4.51); Lymphocyte % 21.7 % (19-41); Mean Corp Hgb Conc 32.3 g/dL (32-36); Mean Corpuscular Hgb 27.4 pg (27.0-32.0); Mean Corpuscular Volume 84.7 fL (81-99); Mean Platelet Vol. 12.2 fl (6.2-12.0); Monocyte% 11.3 % (0-10); NRBC Flagged by Analyzer 0 % (0-5); Neutrophil # 5.15 X10^3/uL (2.7-7.7); Neutrophil % 64.6 % (47-70); Platelet Count 248 K/mm3 (150-450); RBC Distribution Width SD 43.5 fl (35.1-43.9)
[2024-06-03] MEDS: Insulin Lispro 100 UNIT/ML INSULN.PEN SC ×4 (07:19→21:15)
[2024-06-03 07:34] LABS: Anion Gap 11 (5-15); BUN 19 mg/dL (4-19); BUN/Creat Ratio 18.3 RATIO (10-20); Calcium,Total 9.5 mg/dL (7.6-11.0); Carbon Dioxide 20.9 mmol/L (21.0-32.0); Chloride 103 mmol/L (98-108); Creatinine, Serum 1.03 mg/dL (0.70-1.20); EST Glomerular Filtration Rate 56 (>60); Estimated Creatinine Clearance 50.81 ml/min (50-250); Glucose 145 mg/dL (70-99); Magnesium 1.8 mg/dL (1.5-2.2); Phosphorus 3.6 mg/dL (2.7-4.5); Sodium Level 135 mmol/L (133-145)
[2024-06-03 08:19] VITALS: O2SAT 99
--- NOTE | 2024-06-03 08:57 | PCM.PN.HOSP ---
Reason for Visit Reason for Visit: Diagnoses Dysuria (06/02/24) Weakness (06/02/24) Other malaise (06/02/24) Other specified abnormal findings of blood chemistry (06/02/24) Unspecified fall, initial encounter (06/02/24) care home (current) use of 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 (06/02/24) Subjective Subjective Patient states the lidocaine patch does help her rib pain some. She states she still has pain with movement which is to be expected. No significant overnight issues. SNF list was provided yesterday and choices to be determined. Objective Data Objective Data Vital Signs: Vital Signs Temp Pulse Resp BP Pulse Ox O2 Del Method 98.5 F 70 18 114/57 L 99 Room Air 06/02/24 20:52 06/02/24 21:59 06/02/24 20:52 06/02/24 20:52 06/03/24 08:19 06/03/24 08:19 Oxygen Delivery Method Room Air Weight: 91.1 kg Body Mass Index (BMI) 34.4 Intake & Output: Intake and Output for Last 24 Hours 06/01/24 06/02/24 06/03/24 23:59 23:59 23:59 Intake Total 1360 / 1360 Balance 1360 / 1360 Lab / Micro Data 06/03/24 12:00 06/03/24 05:09 Labs: Laboratory Results - last 24 hr 06/02/24 09:35: Troponin T Hi Sens 4Hr 23 H 06/02/24 11:30: POC Glucose 276 H 06/02/24 16:53: POC Glucose 170 H 06/02/24 22:06: POC Glucose 203 H 06/03/24 05:09: WBC 8.0, RBC 3.40 L, Hgb 9.3 L, Hct 28.8 L, MCV 84.7, MCH 27.4, MCHC 32.3, RDW Std Deviation 43.5, RDW Coeff of Rukhsana 14.0, Plt Count 248, MPV 12.2 H, Immature Gran % (Auto) 0.500, Neut % (Auto) 64.6, Lymph % (Auto) 21.7, [place] % (Auto) 11.3 H, Eos % (Auto) 1.3, Baso % (Auto) 0.6, Absolute Neuts (auto) 5.2, Absolute Lymphs (auto) 1.73, Nucleated RBC % 0, Sodium 135, Potassium 4.0, Chloride 103, Carbon Dioxide 20.9 L, Anion Gap 11, BUN 19, Creatinine 1.03, Estim Creat Clear Calc 50.81, Est GFR (MDRD) Non-Af 56 L, BUN/Creatinine Ratio 18.3, Glucose 145 H, Calcium 9.5, Phosphorus 3.6, Magnesium 1.8 Physical Exam Const alert, oriented x3, no apparent distress and well nourished; Negative for healthy appearing Constitutional Narrative: Obese, elderly, white female, sitting up in a chair at the bedside, appears comfortable, nontoxic, watching television General Appearance: cooperative HEENT normocephalic and head/scalp atraumatic Skin Skin Narrative: Scattered areas of new ecchymosis Neuro moves all extremities and no focal motor deficits Psych affect normal Assessment & Plan Assessment/Plan (1) Generalized weakness: (2) Fall: (3) Current use of penitentiary anticoagulation: (4) Debility: (5) Elevated troponin: (6) Dysuria: PLAN: Plan Falls/generalized weakness/debility -Suspect compounded from recent GI bleed and influenza A infection -No focal deficits -Patient also with significant pain from recent falls but no severe injuries noted on imaging -PT/OT consultation for assistance with functional evaluation -Consult case management/social work assistance with discharge planning as I do suspect patient will need placement prior to going home -Plan is for discharge to SNF. bilingual patient support caseworker met yesterday and gave list. Patient has been are picking site and will need approval and pre-CERT prior to discharge Dysuria -UA was completely unremarkable for any signs of infection -Cx pending -Hold off on antibiotics empirically at this point Troponin elevation -Very mild at 21 and 22-suspect related to elevated blood pressure -Was 19 and 19 on her last hospital visit the ED -The chest pain she is experiencing is left lateral and more flank at the ribs and reproducible with palpation -No further workup required at this time Recent GI bleed secondary to peptic ulcer disease -Continue Carafate -Continue Protonix 40 mg p.o. twice daily -Okay to continue Coumadin with stable hemoglobin -Outpatient follow-up with Dr. Jane as previously recommended Recent influenza A infection -Patient still with mild cough -Antitussives available -Suspect contributing to generalized weakness and debility Leukocytosis -Resolved Carotid artery stenosis -90% stenosis of left w/significant collaterals, 50% stenosis of right per U/S 10/27/2020. Right ICA 20-39% stenosis -Continue outpatient ongoing investigation -Patient states she is supposed to have an appointment on Tuesday Paroxysmal atrial fibrillation with history of complete heart block -Pacemaker in place -Continue home metoprolol Essential hypertension/hyperlipidemia -Continue metoprolol -Continue home losartan -Continue home statin Asymmetric septal hypertrophy -EF of 75% on last echo from January 2023 -Continue ongoing outpatient follow-up with cardiology Liver cirrhosis -Secondary to nonalcoholic fatty liver disease I suspect -Outpatient follow-up DM-2 -Hold home glipizide -SSI as ordered -Accu-Cheks 3 times daily and AC -Will monitor sugars Hemorrhoids -Continue home Anusol History of renal cell carcinoma -Remote Chronic anemia -Slight drop this morning however repeat shows stability -Repeat CBC in a.m. Chronic anticoagulation -For atrial fibrillation -INR is therapeutic -Repeat INR in a.m. DVT prophylaxis -Continue home Coumadin with therapeutic INR presently CODE STATUS -DNR CCA with no intubation as verified at the time of admission Disposition: -Patient is medically stable for discharge as of 06/03/2024. Will need facility and pre-CERT Charges/Coding Visit Charges Inpatient E&M: 48629 Subs Hosp L1
[2024-06-03 09:10] VITALS: BP 137/54; PULSE 66; RESP 18; TEMP 36.6; O2SAT 98
[2024-06-03 09:14] VITALS: PULSE 66
[2024-06-03] MEDS: Lidocaine 5% Patch 1 PATCH TOPICAL (09:14)
[2024-06-03] MEDS: Pantoprazole Sodium 40 MG Tablet PO ×2 (09:14→21:12)
[2024-06-03] MEDS: Metoprolol Tartrate 50 MG Tablet PO ×2 (09:14→21:12)
[2024-06-03] MEDS: Multivitamins,Therapeutic Tablet 1 TABLET PO (09:14)
--- NOTE | 2024-06-03 10:09 | NURSING ---
downtime documentation 06/03/24 12am until 7am
[2024-06-03 10:35] LABS: Bedside Glucose 151 mg/dL (74-106)
[2024-06-03] MEDS: Docusate Sodium 100 MG Capsule 200 MG PO ×2 (12:08→21:11)
[2024-06-03 12:30] LABS: Bedside Glucose 223 mg/dL (74-106)
[2024-06-03 12:35] LABS: Hemoglobin 10.7 g/dL (12.0-15.0)
[2024-06-03 14:04] VITALS: BP 130/77; PULSE 60; RESP 18; TEMP 36.5; O2SAT 99
[2024-06-03 16:29] LABS: Bedside Glucose 164 mg/dL (74-106)
[2024-06-03 21:01] VITALS: BP 134/87; PULSE 67; RESP 18; TEMP 36.4; O2SAT 100
[2024-06-03] MEDS: 0.9% Saline Lock 10 ML Syringe IV (21:07)
[2024-06-03 21:12] VITALS: BP 134/87; PULSE 67
[2024-06-03] MEDS: Loratadine 10 MG Tablet PO (21:12)
[2024-06-03] MEDS: Losartan Potassium 25 MG Tablet 12.5 MG PO (21:12)
[2024-06-03] MEDS: Rosuvastatin 20 MG Tablet PO (21:12)
[2024-06-04 00:22] LABS: Bedside Glucose 152 mg/dL (74-106)
[2024-06-04 02:41] VITALS: BP 120/41; PULSE 66; RESP 16; TEMP 36.8; O2SAT 98
[2024-06-04 05:53] VITALS: BMI 34.4
[2024-06-04] MEDS: Sucralfate 1 GM Tablet PO ×3 (06:19→16:30)
[2024-06-04] MEDS: Acetaminophen 500 MG Tablet 1000 MG PO ×3 (06:19→22:57)
[2024-06-04] MEDS: Insulin Lispro 100 UNIT/ML INSULN.PEN SC ×4 (06:19→23:06)
[2024-06-04 07:09] LABS: Hematocrit 28.7 % (37-47); Hemoglobin 9.3 g/dL (12.0-15.0); Mean Corp Hgb Conc 32.4 g/dL (32-36); Mean Corpuscular Hgb 27.2 pg (27.0-32.0); Mean Corpuscular Volume 83.9 fL (81-99); Mean Platelet Vol. 11.9 fl (6.2-12.0); Platelet Count 283 K/mm3 (150-450); RBC Distribution Width CV 13.9 % (11.6-14.6); RBC Distribution Width SD 42.5 fl (35.1-43.9); Red Blood Count 3.42 M/mm3 (4.2-5.4); White Blood Count 6.1 K/mm3 (4.4-11.0)
[2024-06-04 07:31] LABS: Bedside Glucose 155 mg/dL (74-106)
[2024-06-04 07:42] LABS: Anion Gap 12 (5-15); BUN 18 mg/dL (4-19); Calcium,Total 9.4 mg/dL (7.6-11.0); Chloride 105 mmol/L (98-108); Creatinine, Serum 0.92 mg/dL (0.70-1.20); EST Glomerular Filtration Rate 65 (>60); Estimated Creatinine Clearance 56.88 ml/min (50-250); Glucose 165 mg/dL (70-99); Potassium 4.3 mmol/L (3.3-5.1); Sodium Level 137 mmol/L (133-145)
--- NOTE | 2024-06-04 08:05 | PCM.PN.HOSP ---
Reason for Visit Reason for Visit: Diagnoses Dysuria (06/02/24) Weakness (06/02/24) Other malaise (06/02/24) Other specified abnormal findings of blood chemistry (06/02/24) Unspecified fall, initial encounter (06/02/24) skilled nursing (current) use of 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 (06/02/24) Subjective Subjective Patient is a 74-year-old lady admitted with frequent falls. Patient had recently been diagnosed with upper GI bleed as well as acute influenza A infection Objective Data Objective Data Vital Signs: Vital Signs Temp Pulse Resp BP Pulse Ox O2 Del Method 98.2 F 66 16 120/41 L 98 Room Air 06/04/24 02:41 06/04/24 02:41 06/04/24 02:41 06/04/24 02:41 06/04/24 02:41 06/04/24 02:42 Oxygen Delivery Method Room Air Weight: 91.1 kg Body Mass Index (BMI) 34.4 Intake & Output: Intake and Output for Last 24 Hours 06/02/24 06/03/24 06/04/24 23:59 23:59 23:59 Intake Total 1360 / 1360 300 / 300 Balance 1360 / 1360 300 / 300 Lab / Micro Data 06/04/24 06:35 06/04/24 06:35 Labs: Laboratory Results - last 24 hr 06/03/24 06:07: POC Glucose 151 H 06/03/24 12:00: Hgb 10.7 L 06/03/24 12:07: POC Glucose 223 H 06/03/24 16:06: POC Glucose 164 H 06/03/24 21:06: POC Glucose 152 H 06/04/24 06:17: POC Glucose 155 H 06/04/24 06:35: WBC 6.1, RBC 3.42 L, Hgb 9.3 L, Hct 28.7 L, MCV 83.9, MCH 27.2, MCHC 32.4, RDW Std Deviation 42.5, RDW Coeff of Rukhsana 13.9, Plt Count 283, MPV 11.9, Sodium 137, Potassium 4.3, Chloride 105, Carbon Dioxide 20.0 L, Anion Gap 12, BUN 18, Creatinine 0.92, Estim Creat Clear Calc 56.88, Est GFR (MDRD) Non-Af 65, BUN/Creatinine Ratio 20.0, Glucose 165 H, Calcium 9.4 Physical Exam Narrative GENERAL: cooperative HEENT: Atraumatic; normocephalic EYES; Anicteric, Normal Conjunctiva NECK; supple, normal thyroid, RESPIRATORY: Diminished to auscultation CARDIOVASCULAR: Irregular S1-S2 GI: soft, normoactive bowel sounds, : No Renal angle tenderness; EXTREMITIES: No edema, no clubbing, MUSCULOSKELETAL: no muscle wasting NEURO: Awake; no lateralizing signs. SKIN: No Rash PSYCH; Flat affect Assessment & Plan Assessment/Plan (1) Generalized weakness: (2) Fall: (3) Current use of fci anticoagulation: (4) Debility: (5) Elevated troponin: (6) Dysuria: PLAN: Plan Patient is a 74-year-old lady admitted with frequent falls. Patient had recently been diagnosed with upper GI bleed as well as acute influenza A infection 1. Physical deconditioning ? Secondary to recent hospitalization with influenza A and GI bleed. Patient admitted to regular nursing floor requested for PT OT eval and social science manager to assist with discharge planning 2. Dysuria ? Patient urinalysis obtained unremarkable 3. Elevated troponin ? Secondary to demand ischemia from blood pressure 4.Recent GI bleed secondary to peptic ulcer disease Patient is on Carafate as well as Protonix 40 mg p.o. twice daily 5. Anemia ? Secondary to chronic disorder as well as recent acute blood loss anemia from bleeding peptic ulcer. Monitoring H&H and transfuse if patient becomes symptomatic or hemoglobin falls below 7 6. Carotid artery stenosis -90% stenosis of left w/significant collaterals, 50% stenosis of right per U/S 10/27/2020. Right ICA 20-39% stenosis. Patient followed by vascular surgery as outpatient 7. History of complete heart block ? Status post pacemaker placed 7. Chronic atrial fibrillation ? Rate controlled on metoprolol patient is on warfarin close monitoring of H&H implemented 8. Dyslipidemia ?Patient is on statin therapy, continued at home dose 9. Hypertension ? Blood pressure controlled, home medications continued with dose adjustment as needed 10. Asymmetric septal hypertrophy -EF of 75% on last echo from January 2023; Continue ongoing outpatient follow-up with cardiology 11. 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 Diabetes mellitus type II -patient's oral hypoglycemics held. Placed on long acting insulin, Accu-Cheks a.c. and at bedtime and covered with sliding scale insulin 13. Hemorrhoids -Continue home Anusol 14. History of renal cell carcinoma -Remote; remains in remission 15. DVT prophylaxis -Continue home Coumadin with therapeutic INR presently CODE STATUS -DNR CCA with no intubation as verified at the time of admission Time spent in the patient's overall evaluation,decision-making process, review of diagnostic data, adjustment of management, discussion with other providers, nursing nursing and ancillary staff involved in patient's care documentation, 36 minutes Charges/Coding Visit Charges Inpatient E&M: 23681 Subs Hosp L2
--- NOTE | 2024-06-04 09:24 | CASEMGMT ---
Dr. Lopez states that the pt will be medically ready for DC today. See PT notes. RN CM to pt room at this time. Dr. Lopez at bedside. Pt SO at bedside. Pt states that she does not feel safe returning home today. Pt refusing to return home today with her SO. Pt states that she would like to go to a SNF for further rehab prior to returning home. Pt was able to ambulate 150 ft with PT and precertification may get declined. Pt also educated on self pay options. At this time, the pt would like to attempt precertification and hope to qualify for a short term SNF stay. SW updated and to f/u for pt choices. Pt and pt SO deny further questions or concerns at this time.
[2024-06-04 09:46] VITALS: BP 144/64; PULSE 69; RESP 18; TEMP 36.6; O2SAT 98
[2024-06-04 09:53] VITALS: BP 144/64; PULSE 69
[2024-06-04] MEDS: Metoprolol Tartrate 50 MG Tablet PO ×2 (09:53→22:56)
[2024-06-04] MEDS: Pantoprazole Sodium 40 MG Tablet PO ×2 (09:53→22:56)
[2024-06-04] MEDS: Lidocaine 5% Patch 1 PATCH TOPICAL (09:53)
[2024-06-04] MEDS: Multivitamins,Therapeutic Tablet 1 TABLET PO (09:53)
--- NOTE | 2024-06-04 10:10 | CASEMGMT ---
Social Work SW spoke w/pt and spouse, though pt is walking 150 feet, she does not feel she can go home. SW explained that she was unsteady going to the bathroom is having difficulty w/pivoting. SW explained to pt that there is a strong possibility insurance will deny the SNF stay, but we can make the referral. SW did also speak w/her about home health, and private pay SNF. Pt states they cannot afford to pay for SNF privately. They would like a referral to TCU, SW explained TCU has no beds. Their next choices are [facility] and [facility]. SW explained will make the referrals and keep them informed. Pt and spouse state understanding. SW sent referral to [facility] via [facility], will continue to follow. JUSTINO Navarro
[2024-06-04 11:45] LABS: Bedside Glucose 171 mg/dL (74-106)
--- NOTE | 2024-06-04 15:42 | CASEMGMT ---
Social Work Pt was accepted by [facility], insurance is still pending. SW updated pt and . SW did again reiterate that pt will likely be denied by insurance. Pt states understanding. SW will continue to follow. JUSTINO Navarro
[2024-06-04 16:00] VITALS: BP 144/64; PULSE 69; RESP 16; TEMP 36.6; O2SAT 100
[2024-06-04 17:44] LABS: Bedside Glucose 199 mg/dL (74-106)
[2024-06-04 21:00] VITALS: BP 140/65; PULSE 64; RESP 16; TEMP 36.4; O2SAT 96
[2024-06-04] MEDS: Ondansetron 4 MG/2 ML Vial IV (21:15)
[2024-06-04] MEDS: 0.9% Saline Lock 10 ML Syringe IV (21:15)
[2024-06-04 22:56] VITALS: BP 140/65; PULSE 64
[2024-06-04] MEDS: Losartan Potassium 25 MG Tablet 12.5 MG PO (22:56)
[2024-06-04] MEDS: Docusate Sodium 100 MG Capsule 200 MG PO (22:56)
[2024-06-04] MEDS: Loratadine 10 MG Tablet PO (22:56)
[2024-06-04] MEDS: Rosuvastatin 20 MG Tablet PO (22:58)
[2024-06-04 23:28] LABS: Bedside Glucose 160 mg/dL (74-106)
[2024-06-05 03:15] VITALS: BP 102/48; PULSE 60; RESP 16; TEMP 36.5; O2SAT 100
[2024-06-05 05:11] VITALS: BMI 34.8
[2024-06-05] MEDS: Acetaminophen 500 MG Tablet 1000 MG PO (06:21)
[2024-06-05] MEDS: Sucralfate 1 GM Tablet PO ×2 (06:21→11:35)
[2024-06-05 06:44] LABS: Absolute Lymphocyte Count 2.22 X10^3/uL (0.83-4.51); Absolute Neutrophil Count 3.3 X10^3/uL (2.0-7.7); Basophil# 0.07 X10^3/uL; Basophil% 1.1 % (0-1); Eosinophil# 0.15 X10^3/uL; Eosinophils% 2.4 % (0-5); Hematocrit 29.2 % (37-47); Hemoglobin 9.4 g/dL (12.0-15.0); Lymphocyte # 2.22 X10^3/ul (0.83-4.51); Lymphocyte % 35.2 % (19-41); Mean Corp Hgb Conc 32.2 g/dL (32-36); Mean Corpuscular Hgb 27.2 pg (27.0-32.0); Mean Corpuscular Volume 84.6 fL (81-99); Mean Platelet Vol. 11.4 fl (6.2-12.0); Monocyte# 0.59 X10^3/uL; Monocyte% 9.4 % (0-10); NRBC Flagged by Analyzer 0 % (0-5); Neutrophil # 3.25 X10^3/uL (2.7-7.7); Neutrophil % 51.6 % (47-70); Platelet Count 310 K/mm3 (150-450); RBC Distribution Width CV 14.3 % (11.6-14.6); RBC Distribution Width SD 44.3 fl (35.1-43.9); Red Blood Count 3.45 M/mm3 (4.2-5.4); White Blood Count 6.3 K/mm3 (4.4-11.0)
[2024-06-05 06:51] LABS: Bedside Glucose 133 mg/dL (74-106)
[2024-06-05 07:00] LABS: Anion Gap 12 (5-15); BUN 19 mg/dL (4-19); BUN/Creat Ratio 17.8 RATIO (10-20); Calcium,Total 9.6 mg/dL (7.6-11.0); Carbon Dioxide 21.7 mmol/L (21.0-32.0); Chloride 107 mmol/L (98-108); Creatinine, Serum 1.06 mg/dL (0.70-1.20); EST Glomerular Filtration Rate 54 (>60); Estimated Creatinine Clearance 49.62 ml/min (50-250); Glucose 152 mg/dL (70-99); Magnesium 1.9 mg/dL (1.5-2.2); Phosphorus 3.4 mg/dL (2.7-4.5); Potassium 4.3 mmol/L (3.3-5.1); Sodium Level 140 mmol/L (133-145)
--- NOTE | 2024-06-05 07:23 | PN.HOSP_ITS ---
Reason for Visit Reason for Visit: Diagnoses Dysuria (06/02/24) Weakness (06/02/24) Other malaise (06/02/24) Other specified abnormal findings of blood chemistry (06/02/24) Unspecified fall, initial encounter (06/02/24) alf (current) use of 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 (06/02/24) Subjective Subjective Patient seen went into A-fib with rapid ventricular response. Resolved spontaneously. Awaiting insurance approval prior to transfer to [facility] Objective Data Objective Data Vital Signs: Vital Signs Temp Pulse Resp BP Pulse Ox O2 Del Method 97.7 F L 60 16 102/48 L 100 Room Air 06/05/24 03:15 06/05/24 03:15 06/05/24 03:15 06/05/24 03:15 06/05/24 03:15 06/05/24 03:15 Oxygen Delivery Method Room Air Weight: 92 kg Body Mass Index (BMI) 34.8 Intake & Output: Intake and Output for Last 24 Hours 06/03/24 06/04/24 06/05/24 23:59 23:59 23:59 Intake Total 300 / 300 Balance 300 / 300 Lab / Micro Data 06/05/24 05:59 06/05/24 05:59 Labs: Laboratory Results - last 24 hr 06/04/24 06:17: POC Glucose 155 H 06/04/24 06:35: Sodium 137, Potassium 4.3, Chloride 105, Carbon Dioxide 20.0 L, Anion Gap 12, BUN 18, Creatinine 0.92, Estim Creat Clear Calc 56.88, Est GFR (MDRD) Non-Af 65, BUN/Creatinine Ratio 20.0, Glucose 165 H, Calcium 9.4 06/04/24 11:24: POC Glucose 171 H 06/04/24 16:24: POC Glucose 199 H 06/04/24 23:04: POC Glucose 160 H 06/05/24 05:59: WBC 6.3, RBC 3.45 L, Hgb 9.4 L, Hct 29.2 L, MCV 84.6, MCH 27.2, MCHC 32.2, RDW Std Deviation 44.3 H, RDW Coeff of Rukhsana 14.3, Plt Count 310, MPV 11.4, Immature Gran % (Auto) 0.300, Neut % (Auto) 51.6, Lymph % (Auto) 35.2, [place] % (Auto) 9.4, Eos % (Auto) 2.4, Baso % (Auto) 1.1 H, Absolute Neuts (auto) 3.3, Absolute Lymphs (auto) 2.22, Nucleated RBC % 0, Sodium 140, Potassium 4.3, Chloride 107, Carbon Dioxide 21.7, Anion Gap 12, BUN 19, Creatinine 1.06, Estim Creat Clear Calc 49.62 L, Est GFR (MDRD) Non-Af 54 L, BUN/Creatinine Ratio 17.8, Glucose 152 H, Calcium 9.6, Phosphorus 3.4, Magnesium 1.9 06/05/24 06:20: POC Glucose 133 H Physical Exam Narrative GENERAL: cooperative HEENT: Atraumatic; normocephalic EYES; Anicteric, Normal Conjunctiva NECK; supple, normal thyroid, RESPIRATORY: Diminished to auscultation CARDIOVASCULAR: Irregular S1-S2 GI: soft, normoactive bowel sounds, : No Renal angle tenderness; EXTREMITIES: No edema, no clubbing, MUSCULOSKELETAL: no muscle wasting NEURO: Awake; no lateralizing signs. SKIN: No Rash PSYCH; Flat affect Assessment & Plan Assessment/Plan (1) Generalized weakness: (2) Fall: (3) Current use of termite technician anticoagulation: (4) Debility: (5) Elevated troponin: (6) Dysuria: PLAN: Plan Patient is a 74-year-old lady admitted with frequent falls. Patient had recently been diagnosed with upper GI bleed as well as acute influenza A infection 1. Physical deconditioning ? Secondary to recent hospitalization with influenza A and GI bleed. Patient admitted to regular nursing floor requested for PT OT eval and case management social worker to assist with discharge planning 06/05/2024; awaiting insurance decision prior to disposition 2. Dysuria ? Patient urinalysis obtained unremarkable 3. Elevated troponin ? Secondary to demand ischemia from blood pressure 4.Recent GI bleed secondary to peptic ulcer disease Patient is on Carafate as well as Protonix 40 mg p.o. twice daily 5. Anemia ? Secondary to chronic disorder as well as recent acute blood loss anemia from bleeding peptic ulcer. Monitoring H&H and transfuse if patient becomes symptomatic or hemoglobin falls below 7 6. Carotid artery stenosis -90% stenosis of left w/significant collaterals, 50% stenosis of right per U/S 10/27/2020. Right ICA 20-39% stenosis. Patient followed by vascular surgery as outpatient 7. History of complete heart block ? Status post pacemaker placed 7. Chronic atrial fibrillation ? Rate controlled on metoprolol patient is on warfarin close monitoring of H&H implemented ?; went into rapid ventricular response heart rate back within normal limits 8. Dyslipidemia ?Patient is on statin therapy, continued at home dose 9. Hypertension ? Blood pressure controlled, home medications continued with dose adjustment as needed 10. Asymmetric septal hypertrophy -EF of 75% on last echo from January 2023; Continue ongoing outpatient follow- up with cardiology 11. 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 Diabetes mellitus type II -patient's oral hypoglycemics held. Placed on long acting insulin, Accu-Cheks a.c. and at bedtime and covered with sliding scale insulin 13. Hemorrhoids -Continue home Anusol 14. History of renal cell carcinoma -Remote; remains in remission 15. DVT prophylaxis -Continue home Coumadin with therapeutic INR presently CODE STATUS -DNR CCA with no intubation as verified at the time of admission Time spent in the patient's overall evaluation,decision-making process, review of diagnostic data, adjustment of management, discussion with other providers, nursing nursing and ancillary staff involved in patient's care documentation, 36 minutes Charges/Coding Visit Charges Inpatient E&M: 69307 Subs Hosp L2
[2024-06-05 08:50] VITALS: BP 150/60; PULSE 64; RESP 16; TEMP 36.6; O2SAT 100
[2024-06-05] MEDS: Docusate Sodium 100 MG Capsule 200 MG PO (08:53)
[2024-06-05 08:54] VITALS: BP 150/60; PULSE 64
[2024-06-05] MEDS: Multivitamins,Therapeutic Tablet 1 TABLET PO (08:54)
[2024-06-05] MEDS: Lidocaine 5% Patch 1 PATCH TOPICAL (08:54)
[2024-06-05] MEDS: Metoprolol Tartrate 50 MG Tablet PO (08:54)
[2024-06-05] MEDS: Pantoprazole Sodium 40 MG Tablet PO (08:55)
--- NOTE | 2024-06-05 09:51 | CASEMGMT ---
Addendum entered by Tiffanie Salamanca 06/05/24 12:07: Social Work AMITA updated physician and [facility] that pt is going home now instead of SNF. JUSTINO Navarro Addendum entered by Tiffanie Salamanca 06/05/24 11:58: Social Work SW gave pt and list for home health, they reviewed and would like [facility]. AMITA updated CM Dennis, he is making referral. JUSTINO Navarro Addendum entered by Tiffanie Salamanca 06/05/24 11:09: Social Work Pt and have decided they will go home rather than wait to see if insurance will approve SNF. states understanding that the precert will likely not be given for SNF. They are agreeable to home health. SW explained will get them a list of [facility] agencies for them to choose which agency they would like a referral sent. SW will continue to follow. JUSTINO Navarro Original Note: Social Work We have not received a response yet from [facility] regarding precert. SW spoke w/pt and in room in regard to plan. They still want to continue to pursue SNF placement, both are aware that it will likely be denied by insurance. In speaking w/the physician, as per pt she was told if she were to fall again and if she hit her head could have a brain bleed, or could break something, and could then end up in a usp permanently. Both pt and are very concerned about pt falling again. SW offered support. SW explained we can continue to wait for the insurance determination, but to be prepared that it may be denied. Both state understanding. SW will continue to follow. JUSTINO Navarro
--- NOTE | 2024-06-05 11:26 | CASEMGMT ---
Discharge Planning A list of?HH providers including quality and resource use data and consistent with the patient's preferred geographic region, medical needs, and insurance network was created in [facility] Guide.? This list was provided to the SW. Darleen Parker Discharge Planning Asst.
[2024-06-05] MEDS: Insulin Lispro 100 UNIT/ML INSULN.PEN SC (11:37)
--- NOTE | 2024-06-05 11:56 | CASEMGMT ---
Addendum entered by Shaji Stallworth 06/05/24 12:43: Georgie from [facility] states that they are able to accept for SOC . RNCM to pt room at this time and the pt states that she is agreeable to this and denies any further DC needs. Original Note: RN AGGIE was notified by that the pt would like [facility]. TC to [facility] and referral made for SN, PT, OT. Awaiting return response. CM to follow.
[2024-06-05 12:14] LABS: Bedside Glucose 267 mg/dL (74-106)
--- NOTE | 2024-06-05 12:23 | PCM.DC.SUM ---
Providers Date of Admission: 06/02/24 Date of Discharge: 06/05/24 Primary Care Physician: Dr. Alexys Tracy MD Reason For Visit: FALLS/WEAKNESS Diagnosis Discharge Diagnosis (1) Generalized weakness: Status: Acute Code(s): R53.1 - Weakness (2) Fall: Status: Acute Code(s): W19.XXXA - Unspecified fall, initial encounter (3) Current use of detention anticoagulation: Status: Acute Code(s): Z79.01 - group home (current) use of 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 (4) Debility: Status: Acute Code(s): R53.81 - Other malaise (5) Elevated troponin: Status: Acute Code(s): R79.89 - Other specified abnormal findings of blood chemistry (6) Dysuria: Status: Acute Code(s): R30.0 - Dysuria Plan Patient is a 74-year-old lady admitted with frequent falls. Patient had recently been diagnosed with upper GI bleed as well as acute influenza A infection 1. Physical deconditioning ? Secondary to recent hospitalization with influenza A and GI bleed. Patient admitted to regular nursing floor requested for PT OT eval and social work administrator to assist with discharge planning 06/05/2024; awaiting insurance decision prior to disposition 2. Dysuria ? Patient urinalysis obtained unremarkable 3. Elevated troponin ? Secondary to demand ischemia from blood pressure 4.Recent GI bleed secondary to peptic ulcer disease Patient is on Carafate as well as Protonix 40 mg p.o. twice daily 5. Anemia ? Secondary to chronic disorder as well as recent acute blood loss anemia from bleeding peptic ulcer. Monitoring H&H and transfuse if patient becomes symptomatic or hemoglobin falls below 7 6. Carotid artery stenosis -90% stenosis of left w/significant collaterals, 50% stenosis of right per U/S 10/27/2020. Right ICA 20-39% stenosis. Patient followed by vascular surgery as outpatient 7. History of complete heart block ? Status post pacemaker placed 7. Chronic atrial fibrillation ? Rate controlled on metoprolol patient is on warfarin close monitoring of H&H implemented ; went into rapid ventricular response heart rate back within normal limits 8. Dyslipidemia ?Patient is on statin therapy, continued at home dose 9. Hypertension ? Blood pressure controlled, home medications continued with dose adjustment as needed 10. Asymmetric septal hypertrophy -EF of 75% on last echo from January 2023; Continue ongoing outpatient follow-up with cardiology 11. 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 Diabetes mellitus type II -patient's oral hypoglycemics held. Placed on long acting insulin, Accu-Cheks a.c. and at bedtime and covered with sliding scale insulin 13. Hemorrhoids -Continue home Anusol 14. History of renal cell carcinoma -Remote; remains in remission 15. DVT prophylaxis -Continue home Coumadin with therapeutic INR presently CODE STATUS -DNR CCA with no intubation as verified at the time of admission Time spent in the patient's overall evaluation,decision-making process, review of diagnostic data, adjustment of management, discussion with other providers, nursing nursing and ancillary staff involved in patient's care documentation, 36 minutes Medications at Discharge Home Medications acetaminophen 325 mg tablet 1,000 mg PO QHS 06/26/16 loratadine 10 mg tablet 10 mg PO QHS 30 days 07/23/16 docusate sodium 100 mg capsule (Colace) 200 mg PO QHS 01/21/23 multivitamin (Daily Multi-Vitamin tablet) 1 tab PO DAILY 01/21/23 hydrocortisone 2.5 % topical cream with perineal applicator (Anusol-HC) 1 applic SC QD-BID PRN hemorrhoids 02/04/23 promethazine 12.5 mg tablet 12.5 mg PO Q6H PRN nausea and vomiting 02/04/23 metoprolol tartrate 50 mg tablet 50 mg PO BID #180 tabs 02/24/24 rosuvastatin 20 mg tablet 20 mg PO QHS #90 tabs 03/13/24 glipizide 10 mg tablet, extended release 24 hr 10 mg PO BID 04/18/24 ondansetron 4 mg disintegrating tablet 4 mg PO Q8H PRN PRN Nausea #10 tabs 05/14/24 warfarin 2.5 mg tablet 2.5 mg PO MOTUWETH 05/15/24 warfarin 5 mg tablet 5 mg PO .FRSASU 05/15/24 pantoprazole 40 mg tablet,delayed release 40 mg PO BID #60 tabs 05/17/24 sucralfate 1 gram tablet 1 g PO TIDAC #90 tabs 05/17/24 losartan 25 mg tablet 12.5 mg (1/2 x 25 mg) PO DAILY #45 tabs 05/21/24 methocarbamol 500 mg tablet 500 mg PO 4X/DAY PRN Muscle pain/spasm #40 tabs 05/30/24 tramadol 50 mg tablet 50 mg PO Q6H PRN pain 3 days #12 tabs 05/30/24 Physical Exam Narrative GENERAL: cooperative HEENT: Atraumatic; normocephalic EYES; Anicteric, Normal Conjunctiva NECK; supple, normal thyroid, RESPIRATORY: Diminished to auscultation CARDIOVASCULAR: Irregular S1-S2 GI: soft, normoactive bowel sounds, : No Renal angle tenderness; EXTREMITIES: No edema, no clubbing, MUSCULOSKELETAL: no muscle wasting NEURO: Awake; no lateralizing signs. SKIN: No Rash PSYCH; Flat affect Weight / BMI Weight Weight: 92 kg Body Mass Index (BMI) 34.8 ABG / Lab / Microbiology Data 06/05/24 05:59 06/05/24 05:59 Laboratory: Laboratory Results - last 24 hr 06/04/24 16:24: POC Glucose 199 H 06/04/24 23:04: POC Glucose 160 H 06/05/24 05:59: WBC 6.3, RBC 3.45 L, Hgb 9.4 L, Hct 29.2 L, MCV 84.6, MCH 27.2, MCHC 32.2, RDW Std Deviation 44.3 H, RDW Coeff of Rukhsana 14.3, Plt Count 310, MPV 11.4, Immature Gran % (Auto) 0.300, Neut % (Auto) 51.6, Lymph % (Auto) 35.2, [place] % (Auto) 9.4, Eos % (Auto) 2.4, Baso % (Auto) 1.1 H, Absolute Neuts (auto) 3.3, Absolute Lymphs (auto) 2.22, Nucleated RBC % 0, Sodium 140, Potassium 4.3, Chloride 107, Carbon Dioxide 21.7, Anion Gap 12, BUN 19, Creatinine 1.06, Estim Creat Clear Calc 49.62 L, Est GFR (MDRD) Non-Af 54 L, BUN/Creatinine Ratio 17.8, Glucose 152 H, Calcium 9.6, Phosphorus 3.4, Magnesium 1.9 06/05/24 06:20: POC Glucose 133 H 06/05/24 11:36: POC Glucose 267 H Microbiology: Microbiology 06/03/24 12:00 Urine, Clean Catch Urine Culture - Final Mixed Gram Positive Organisms D/C Instructions Discharge Diet: No restrictions Discharge Activity: Return to Normal Activity Call your doctor if you observe: Fever of 101 or Higher, Shortness of breath, Fainting spells and Chest pain DC O2, CPAP, BIPAP Needs Home O2 Discharge instructions: No Meaningful Use Info Meaningful Use Meaningful Use Diagnoses (Choose all that apply): None applicable Ischemic Stroke Statin Dosing Therapy Reference: STATIN DOSE THERAPY REFERENCE: * Patients > 75 years receive moderate or high dose statin therapy. * Patients 75 years or YOUNGER should receive HIGH intensity statin dose unless contraindicated. You will be required to document reason for non-treatment if statin daily dose does not meet guidelines. HIGH DOSE STATIN THERAPY DAILY Atorvastatin > than or = to 40 mg Rosuvastatin > than or = to 20 mg Amlodipine + Atorvastatin > than or = to 2.5/40 mg Ezetimibe + Simvastatin 10/80 mg Simvastatin 80mg Discharge Plan Admission Admit Date/Time: 06/02/24 07:13 Attending Provider: [place] Primary Care Provider: Alexys Tracy Consulting Providers: Cheryl Carroll Discharge Orders/Prescriptions Prescriptions: Continued promethazine 12.5 mg tablet 12.5 mg PO Q6H PRN (Reason: nausea and vomiting) hydrocortisone [Anusol-HC] 2.5 % cream with perineal applicator 1 applic SC QD-BID PRN (Reason: hemorrhoids) glipizide 10 mg tablet extended release 24hr 10 mg PO BID acetaminophen 325 MG tablet 1,000 mg PO QHS Patient Comments: pain control loratadine 10 MG tablet 10 mg PO QHS 30 Days 0RF multivitamin [Daily Multi-Vitamin] Tablet 1 tab PO DAILY docusate sodium [Colace] 100 mg capsule 200 mg PO QHS ondansetron 4 mg tablet,disintegrating 4 mg PO Q8H PRN PRN (Reason: Nausea) Qty: 10 0RF war[facility]in 5 [facility] Protocol: Dose Management Condition: Tuesday Dose/Route: 5 mg Instruction: 1 x 5 mg tablet Condition: Tuesday Dose/Route: 2.5 mg Instruction: 1 x 2.5 mg tablet Condition: Tuesday Dose/Route: 2.5 mg Instruction: 1 x 2.5 mg tablet Condition: Tuesday Dose/Route: 2.5 mg Instruction: 1 x 2.5 mg tablet Condition: Dose/Route: 2.5 mg Instruction: 1 x 2.5 mg tablet Condition: Tuesday Dose/Route: 5 mg Instruction: 1 x 5 mg tablet Condition: Tuesday Dose/Route: 5 mg Instruction: 1 x 5 mg tablet Protocol Text: Adjustment Start Date: 05/24/24 INR Value: 1.5 INR Date: 05/24/24 Recheck Date: 05/31/24 warfarin 2.5 mg tablet 2.5 mg PO MOTUWETH Protocol: Dose Management Condition: Tuesday Dose/Route: 5 mg Instruction: 1 x 5 mg tablet Condition: Tuesday Dose/Route: 2.5 mg Instruction: 1 x 2.5 mg tablet Condition: Tuesday Dose/Route: 2.5 mg Instruction: 1 x 2.5 mg tablet Condition: Tuesday Dose/Route: 2.5 mg Instruction: 1 x 2.5 mg tablet Condition: Dose/Route: 2.5 mg Instruction: 1 x 2.5 mg tablet Condition: Tuesday Dose/Route: 5 mg Instruction: 1 x 5 mg tablet Condition: Tuesday Dose/Route: 5 mg Instruction: 1 x 5 mg tablet Protocol Text: Adjustment Start Date: 05/24/24 INR Value: 1.5 INR Date: 05/24/24 Recheck Date: 05/31/24 Rx Instructions: 2.5 mg orally 1 tablet (2.5 mg) on Tuesday, Tuesday, Tuesday, and ; 2 tablets together to = 5mg on Tuesday, Tuesday and Tuesday at bedtdime; dose changes often, please give extra tablets sucralfate 1 gram Tablet 1 g PO TIDAC Qty: 90 0RF pantoprazole 40 mg tablet,delayed release (DR/EC) 40 mg PO BID Qty: 60 0RF tramadol 50 mg tablet 50 mg PO Q6H PRN (Reason: pain) 3 Days Qty: 12 0RF methocarbamol 500 mg tablet 500 mg PO 4X/DAY PRN (Reason: Muscle pain/spasm) Qty: 40 0RF metoprolol tartrate 50 mg tablet 50 mg PO BID Qty: 180 3RF rosuvastatin 20 mg tablet 20 mg PO QHS Qty: 90 3RF losartan 25 mg tablet 12.5 mg PO DAILY Qty: 45 3RF Rx Instructions: Hold for SBP less than 130 mmHg Referrals / Follow Up: Alexys Tracy MD [Primary Care Provider] - 06/08/24 12:45 pm Disposition Disposition (needs filled in before D/C Order can be placed): Home Health Service Charges/Coding Visit Charges Inpatient E&M: 83804 Disch Hosp >30min
== END 2024-06-05 13:23 | disposition home health service (06) ==
LOC: ED 07:13 → MS3 08:01
PROVIDERS: Admitting Provider Internal Medicine; Emergency Provider Emergency Medicine; PCP Family Medicine; Visit Provider Internal Medicine
DX: R53.1 Weakness (principal); I48.0 Paroxysmal atrial fibrillation; E11.22 Type 2 diabetes mellitus with diabetic chronic kidney disease; N18.31 Chronic kidney disease, stage 3a; R79.89 Other specified abnormal findings of blood chemistry; W01.198A Fall on same level from slipping, tripping and stumbling with subsequent striking against other object, initial encounter; R29.6 Repeated falls; I65.23 Occlusion and stenosis of bilateral carotid arteries; K27.9 Peptic ulcer, site unspecified, unspecified as acute or chronic, without hemorrhage or perforation; D63.8 Anemia in other chronic diseases classified elsewhere; E78.5 Hyperlipidemia, unspecified; R53.81 Other malaise; R30.0 Dysuria; E86.0 Dehydration; Z79.01 Long term (current) use of 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; Z79.84 Long term (current) use of oral hypoglycemic drugs; Z79.899 Other long term (current) drug therapy; Z95.0 Presence of cardiac pacemaker; Z86.73 Personal history of transient ischemic attack (TIA), and cerebral infarction without residual deficits
CPT/HCPCS: 36415; 70450; 71250; 72125; 74177; 80048; 80076; 81001; 82962; 83735; 84100; 84484; 85018; 85025; 85027; 85610; 85730; 87086; 87088; 93005; 94668; 96361; 96374; 97116; 97162; 97166; 97530; 97535; 97802; 99221; 99285; Q9967; A4216; G0378; J2405

== ENCOUNTER → 2024-06-25 | Outpatient (CLI) | payer MEDICARE, SELFPAY ==
[2024-06-25 15:25] LABS: Absolute Lymphocyte Count 2.19 X10^3/uL (0.83-4.51); Absolute Neutrophil Count 4.7 X10^3/uL (2.0-7.7); Basophil# 0.09 X10^3/uL; Basophil% 1.2 % (0-1); Eosinophil# 0.15 X10^3/uL; Eosinophils% 1.9 % (0-5); Hemoglobin 11.3 g/dL (12.0-15.0); Lymphocyte # 2.19 X10^3/ul (0.83-4.51); Lymphocyte % 28.4 % (19-41); Mean Corp Hgb Conc 31.4 g/dL (32-36); Mean Corpuscular Hgb 27.1 pg (27.0-32.0); Mean Corpuscular Volume 86.3 fL (81-99); Mean Platelet Vol. 12.4 fl (6.2-12.0); Monocyte# 0.57 X10^3/uL; Monocyte% 7.4 % (0-10); NRBC Flagged by Analyzer 0 % (0-5); Neutrophil # 4.68 X10^3/uL (2.7-7.7); Neutrophil % 60.7 % (47-70); Platelet Count 218 K/mm3 (150-450); RBC Distribution Width CV 14.9 % (11.6-14.6); RBC Distribution Width SD 47.5 fl (35.1-43.9); Red Blood Count 4.17 M/mm3 (4.2-5.4); White Blood Count 7.7 K/mm3 (4.4-11.0)
== END | disposition home or self-care (01) ==
LOC: LABSPEC 13:57
PROVIDERS: PCP Family Medicine; Visit Provider Nurse Practitioner Family
DX: D50.0 Iron deficiency anemia secondary to blood loss (chronic) (principal)
CPT/HCPCS: 85025

== ENCOUNTER → 2024-07-11 | Outpatient (CLI) | payer MEDICARE, SELFPAY ==
[2024-07-11 14:32] LABS: Bacteria 0 SEEN /hpf (None Seen); Mucous, Urine 0 SEEN /hpf (<or=2+)
[2024-07-11 14:58] LABS: Color, Urine Yellow (Yellow); Glucose, Dipstick Normal (Normal); Ketone-Dipstick Negative (Negative); Leukocyte Esterase-Dipstick 500 /ul (Negative); Nitrite-Dipstick Negative (Negative); Occult Blood-Urine 250 /ul (Negative); Protein-Dipstick 100 mg/dl (Negative); Specific Gravity, Urine 1.005 (1.002-1.030); Urine Bilirubin Dipstick Negative (Negative); Urine Clarity Sl. Cloudy (Clear); Urine Urobilinogen Normal (Normal)
[2024-07-11 15:07] LABS: Red Blood Cells-Urine 5-10 SEEN /hpf (0-5); Squamous Epithelial Cells - UA 0-5 SEEN /hpf (5-10); White Blood Cells 50-100 SEEN /hpf (0-5)
== END | disposition home or self-care (01) ==
LOC: LAB 13:28
PROVIDERS: PCP Family Medicine; Referring Provider Internal Medicine; Visit Provider Internal Medicine
DX: N12 Tubulo-interstitial nephritis, not specified as acute or chronic (principal); R30.0 Dysuria
CPT/HCPCS: 81001; 87086; 87088; 87186

== ENCOUNTER → 2024-07-13 | Outpatient (CLI) | payer MEDICARE, SELFPAY ==
--- NOTE | 2024-07-13 11:44 | CT_ITS ---
PROCEDURE: CTA HEAD AND NECK W/ CONTRAST 07/13/2024 REASON FOR EXAM: L ICA OCCLUSION, R ICA STENOSIS TECHNIQUE: CTA imaging of the head and neck from the aortic arch to the skull vertex with out contrast and with intravenous contrast. Multiplanar and multisequence images were obtained. CONTRAST:VOLUME:mL Gauge IV One or more dose reduction techniques were used (e.g., Automated exposure control, adjustment of the mA and/or kV according to patient size, use of iterative reconstruction technique). RADIATION DOSE SUMMARY: CTDlvol: mGy DLP: mGycm COMPARISON: CT brain FINDINGS: Patent aortic arch showing intimal irregularities and calcified plaques. It gives rise to three ordered major vascular trunks showing ostial atherosclerotic changes. Patent common carotid arteries showing mild irregular intimal thickening. No tight stenosis. Patent carotid bulbs showing fibrofatty and calcified atheromatous plaques. Patent external carotid arteries. Occluded left internal carotid artery starting from its ostium with refilling of its attenuated petrous, cavernous and supraclinoid segments showing multifocal occluded segments. Attenuated yet patent left middle cerebral artery and its branches. Patent homogenously cervical, petrous, cavernous and supraclinoid segments of the right internal carotid artery showing non significant calcified atheromatous plaques. No tight stenotic lesions, aneurysmal dilatation or dissecting intimal flaps. Patent both anterior and right middle cerebral arteries. No tight stenotic lesions, aneurysmal dilatation or dissecting intimal flaps. Patent vertebral arteries showing irregular intimal thickening. No tight stenotic lesions, aneurysmal dilatation or dissecting intimal flaps. Patent basilar artery and its branches. No tight stenotic lesions, aneurysmal dilatation or dissecting intimal flaps. The visualized brain parenchyma shows normal appearance. No focal parenchymal abnormalities are demonstrated. Scherer-white matter differentiation is maintained. Normal CT appearance of the posterior fossa structures. No intracerebral or extra-axial hematoma. No midline shifts or deformity. Normal size and configuration of the cerebral ventricles. Prominent fronto-parietal cortical sulci. No definite calvarial fractures. The osseous structures in the skull base are unremarkable. CT/CTA Head AND Neck W/ Contrast IMPRESSION: Occluded left internal carotid artery starting from its ostium with refilling o f its attenuated petrous, cavernous and supraclinoid segments showing multifocal occluded segments. Attenuated yet patent left middle cerebral artery and its branches. Reading Location: [id number]
--- NOTE | 2024-07-13 11:44 | US_ITS ---
PROCEDURE: KIDNEY AND BLADDER 07/13/2024 REASON FOR EXAM: DYSURIA, LUQ PAIN TECHNIQUE: Bilateral renal ultrasound. COMPARISON: 06/02/2024 CT FINDINGS: Right kidney measures 8.8 x 4.1 x 4.6 cm. The cortex measures 1 cm. No stones. No hydronephrosis. History of partial nephrectomy with lobulated borders. The left kidney measures 11.8 x 4.4 x 4.3 cm. The cortex measures 0.8 cm. No stones. No hydronephrosis. Inferior pole cyst measuring 5.1 x 5.5 x 4.5 cm. Lobulated borders noted. Urinary bladder distended volume is 34.5 cc. Urinary bladder wall is 3 mm. Jets are visualized. US/Kidney and Bladder IMPRESSION: Left renal simple cysts, stable as compared to the. History of partial right nephrectomy with no obvious lesions. Reading Location: [place] [id number]
== END | disposition home or self-care (01) ==
LOC: US 11:39
PROVIDERS: PCP Family Medicine; Referring Provider Internal Medicine; Visit Provider Internal Medicine
DX: I65.23 Occlusion and stenosis of bilateral carotid arteries (principal)
CPT/HCPCS: 70496; 70498; 76770; Q9967

== ENCOUNTER 2024-08-13 09:11 | Outpatient (RCR) | payer MEDICARE, SELFPAY ==
[2024-08-13 10:13] LABS: International Normalized Ratio 2.3
== END 2024-08-13 18:00 | disposition home or self-care (01) ==
LOC: LAB 09:11
PROVIDERS: PCP Family Medicine; Referring Provider Physician Assistant Medical; Visit Provider Physician Assistant Medical
DX: I48.0 Paroxysmal atrial fibrillation (principal); Z79.01 Long term (current) use of 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
CPT/HCPCS: 36415; 85610

== ENCOUNTER 2024-09-12 08:20 | Outpatient (RCR) | payer MEDICARE, SELFPAY | END 2024-10-04 20:53 | disposition home or self-care (01) | LOC: LAB 08:20 | PROVIDERS: PCP Family Medicine; Referring Provider Physician Assistant Medical; Visit Provider Physician Assistant Medical | DX: I48.0 Paroxysmal atrial fibrillation (principal); Z79.01 Long term (current) use of 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 ==

== ENCOUNTER → 2024-09-12 | Outpatient (CLI) | payer MEDICARE, SELFPAY ==
--- NOTE | 2024-09-12 08:27 | US_ITS ---
PROCEDURE: ABD LIMITED W/ ELASTOGRAPHY REASON FOR EXAM: CIRRHOSIS, ELEVATED CA 19-9 COMPARISON: Prior CT scan dated June 02, 2024. TECHNIQUE: Right upper quadrant abdominal ultrasound. DYNA[employer] SOFTWARE SL ElastQ Imaging shear wave elastography for non-invasive assessment of liver tissue stiffness. D[employer] SL EPIQ Elite. FINDINGS: LIVER: Size: Unremarkable Length: 15.7 cm Echotexture: Coarsened Contour: Normal Lesions: None identified Elastography: EQI Med: 15.1 kPa EQI Med Iker: 2.22 m/s IQR/Med: 21 %* GALLBLADDER: Surgically absent. COMMON BILE DUCT: Dilated measuring up to 8.8 mm . PANCREAS: Normal The patient is status post partial right nephrectomy. The kidney measures 8 cm 5 cm 5.2 cm. Renal cortex measures 1.3 cm. No right upper quadrant ascites. The spleen is not enlarged. It measures 10.7 cm x 5.5 cm 4.8 cm. US/ABD Limited w/ Elastography IMPRESSION: SEVERE HEPATIC FIBROSIS / CIRRHOSIS Fatty infiltration of the liver. Status post cholecystectomy. Reference Values: SRU <1.37 m/s (5.7kPa): No to mild fibrosis 1.37 m/s - 2.2 m/s: Moderate to severe fibrosis >2.2 m/s (15kPa): Significant fibrosis / cirrhosis METAVIR Score F2 or higher: 1.34 m/s (5.7kPa) F3 or higher: 1.55 m/s (7.3kPa) F4: 1.80 m/s (10kPa) * If the IQR/Med is >30%, the variance in the measurements is a large and the a ccuracy of the measurement may be in question. Reading Location: [place] [id number]
[2024-09-12 10:12] LABS: Hematocrit 34.1 % (37-47); Hemoglobin 11.0 g/dL (12.0-15.0); Immature Granulocytes Count 0.020 X10^3/uL (0.0-0.0); Mean Corp Hgb Conc 32.3 g/dL (32-36); Mean Corpuscular Volume 84.2 fL (81-99); Mean Platelet Vol. 11.7 fl (6.2-12.0); NRBC Flagged by Analyzer 0 % (0-5); Platelet Count 173 K/mm3 (150-450); RBC Distribution Width CV 14.6 % (11.6-14.6); RBC Distribution Width SD 44.9 fl (35.1-43.9); Red Blood Count 4.05 M/mm3 (4.2-5.4); White Blood Count 5.8 K/mm3 (4.4-11.0)
[2024-09-12 10:19] LABS: Prothrombin Time (Protime)PT. 30.6 SECONDS (11.7-14.9)
[2024-09-12 11:30] LABS: AST(SGOT) 35 U/L (<=31); Alanine Aminotransfer ALT/SGPT 22 U/L (<=34); Albumin, Serum 4.0 g/dL (3.4-4.8); Alkaline Phosphatase 93 U/L (35-104); Anion Gap 13 (5-15); BUN 18 mg/dL (4-19); BUN/Creat Ratio 15.6 RATIO (10-20); Bilirubin, Direct 0.16 mg/dL (0.00-0.30); Calcium,Total 9.8 mg/dL (7.6-11.0); Carbon Dioxide 22.5 mmol/L (21.0-32.0); Chloride 103 mmol/L (98-108); Cholesterol 193 mg/dL (<=200); Ferritin 56 ng/mL (22-378); Globulin 3.5 g/dL (2.2-4.2); Glucose 166 mg/dL (70-99); HIV Nonreactive (Nonreactive); Low Density Lipoprotein Calc. 52 mg/dL; Potassium 4.2 mmol/L (3.3-5.1); Triglycerides 482 mg/dL; Very Low Density Lipoprotein 96 mg/dL (5-40); cholesterol:hdl ratio screen 4.35
[2024-09-12 15:19] LABS: Iron Binding Capacity,Total 297 ug/dL (250-450)
[2024-09-12 15:20] LABS: CRP < 3.00 mg/L (0.0-3.0); Iron 37 ug/dL (50-170); Iron Binding Capacity,Unsat 260 ug/dL (228-428); LDH 222 U/L (84-246)
[2024-09-13 15:08] LABS: ANTINUCLEAR ANTIBODIES DIRECT Negative (Negative)
[2024-09-16 16:07] LABS: Albumin 3.7 g/dL (2.9-4.4); Anti-Smooth Muscle ABS 5 Units (0-19); Carcinoembryonic Antigen 1.7 ng/mL (0.0-4.7); Copper, Serum or Plasma 103 ug/dL (80-158); Cytoplasmic Ab (C-ANCA) <1:20 titer (Neg:<1:20); GGTP 71 IU/L (0-60); Gamma Globulin 1.4 g/dL (0.4-1.8); HEPATITIS B SURFACE AG Negative (Negative); Hep C Antibodies Non Reactive (Non Reactive); Immunoglobulin A 279 mg/dL (64-422); Immunoglobulin G 1462 mg/dL (586-1602); Immunoglobulin M 73 mg/dL (26-217); PROEL- TOTAL PROTEIN 7.4 g/dL (6.0-8.5); Perinuclear Ab (P-ANCA) <1:20 titer (Neg:<1:20)
== END | disposition home or self-care (01) ==
PROVIDERS: PCP Family Medicine; Referring Provider Internal Medicine; Visit Provider Internal Medicine
DX: I48.0 Paroxysmal atrial fibrillation (principal); K74.60 Unspecified cirrhosis of liver; E11.22 Type 2 diabetes mellitus with diabetic chronic kidney disease; N18.31 Chronic kidney disease, stage 3a; Z79.01 Long term (current) use of 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; D64.9 Anemia, unspecified; K92.2 Gastrointestinal hemorrhage, unspecified; R10.32 Left lower quadrant pain; I12.9 Hypertensive chronic kidney disease with stage 1 through stage 4 chronic kidney disease, or unspecified chronic kidney disease; R97.8 Other abnormal tumor markers; Z90.5 Acquired absence of kidney
CPT/HCPCS: 76705; 76981; 80053; 80061; 80074; 82105; 82248; 82378; 82390; 82525; 82728; 82784; 82785; 82977; 83036; 83516; 83540; 83550; 83615; 83883; 84165; 84439; 84443; 85025; 85610; 86037; 86038; 86140; 86225; 86235; 86301; 86334; 86703

== ENCOUNTER 2024-10-26 12:10 | Outpatient (RCR) | payer MEDICARE, SELFPAY ==
[2024-10-08 13:04] LABS: Prothrombin Time (Protime)PT. 26.3 SECONDS (11.7-14.9)
[2024-10-26 12:50] LABS: Prothrombin Time (Protime)PT. 24.6 SECONDS (11.7-14.9)
== END 2024-10-26 18:00 | disposition home or self-care (01) ==
LOC: LAB 12:10
PROVIDERS: PCP Family Medicine; Referring Provider Physician Assistant Medical; Visit Provider Physician Assistant Medical
DX: I48.0 Paroxysmal atrial fibrillation (principal); Z79.01 Long term (current) use of 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
CPT/HCPCS: 36415; 85610

== ENCOUNTER → 2024-11-16 | Outpatient (CLI) | payer MEDICARE, SELFPAY ==
--- NOTE | 2024-11-16 09:09 | ECHOD_ITS ---
Reason For Study Reason For Study: OTHER Procedure This was a 2D Doppler, Color Flow transthoracic echocardiogram. Exam performed in department. Left Ventricle Normal LV size. Mild concentric left ventricular hypertrophy. The left ventricular ejection fraction is 60 %. Stage 1 diastolic dysfunction. Right Ventricle Normal right ventricle. Atria The left atrium is mildly enlarged. Normal right atrium. Mitral Valve There is Moderate focal posterior mitral annular calcification. Trivial mitral valve insufficiency. Tricuspid Valve Trivial tricuspid valve insufficiency. Unable to estimate RV systolic pressure due to insufficient tricuspid regurgitant envelope. Aortic Valve Moderately calcified aortic valve with restricted leaflet motion. Mean peak gradient 5 mmHg. Pulmonic Valve Mild (1+) pulmonic valve insufficiency. Great Vessels Normal sized aortic root. Pericardium/Pleural No pericardial effusion. MMode/2D Measurements & Calculations LVIDd: 4.0 cm IVSd: 1.3 cm LVOT diam: 1.9 cm LVIDs: 2.9 cm LVPWd: 1.3 cm LVOT area: 2.9 cm2 RVDd: 2.8 cm FS: 28.1 % Ao root diam: 3.2 cm LAV(MOD-bp): 48.6 ml LVAd ap4: 25.8 cm2 LA dimension: 4.5 cm LAV(MOD-bp) Indexed: 25.4 ml/m2 LVLd ap4: 7.7 cm LAV(MOD-sp2): 51.2 ml EDV(MOD-sp4): 71.1 ml LAV(MOD-sp4): 44.9 ml EDV(sp4-el): 73.5 ml LVAs ap4: 14.0 cm2 LVLs ap4: 6.7 cm ESV(MOD-sp4): 25.8 ml ESV(sp4-el): 24.8 ml EF(MOD-sp4): 63.7 % EF(sp4-el): 66.3 % SV(MOD-sp4): 45.3 ml SV(sp4-el): 48.7 ml LA A4 area: 17.2 cm2 SI(MOD-sp4): 23.7 ml/m2 LA dimension(2D): 3.8 cm RA A4 area: 10.5 cm2 Time Measurements MV dec time: 0.29 sec Doppler Measurements & Calculations MV E max iker: 87.9 cm/sec Lat Peak E' Iker: 6.3 cm/sec Med Peak E' Iker: 4.5 cm/sec MV A max iker: 131.2 cm/sec E/E' lat: 14.0 E/E' med: 19.5 MV E/A: 0.67 MV V2 max: 142.6 cm/sec Ao V2 max: 160.1 cm/sec MV max P.1 mmHg MV dec slope: 305.5 cm/sec2 Ao max P.3 mmHg MV V2 mean: 81.5 cm/sec Ao V2 mean: 113.5 cm/sec MV mean P.0 mmHg Ao mean P.9 mmHg MV V2 VTI: 44.2 cm Ao V2 VTI: 41.9 cm AV (velocity ratio): 0.98 MVA(VTI): 2.7 cm2 KIYA(I,D): 2.8 cm2 KIYA(V,D): 2.5 cm2 LV V1 max: 137.4 cm/sec SV(LVOT): 118.6 ml PA V2 max: 109.9 cm/sec LV V1 max P.6 mmHg PA V2 mean: 80.0 cm/sec LV V1 mean P.3 mmHg LV V1 mean: 111.5 cm/sec LV V1 VTI: 40.9 cm ECHO/Echo Complete Interpretation Summary Mild concentric left ventricular hypertrophy. The left ventricular ejection fraction is 60 %. Stage 1 diastolic dysfunction. The left atrium is mildly enlarged. There is Moderate focal posterior mitral annular calcification. Mild (1+) pulmonic valve insufficiency. Moderately calcified aortic valve with restricted leaflet motion. Mean peak gra dient 5 mmHg. Ordering Physician: Kay Cavazos Referring Physician: Kay Cavazos Performed By: Rosa Mclain RCS
== END | disposition home or self-care (01) ==
PROVIDERS: PCP Family Medicine; Referring Provider Physician Assistant Medical; Visit Provider Physician Assistant Medical
DX: I51.7 Cardiomegaly (principal)
CPT/HCPCS: 93306

== ENCOUNTER 2024-11-30 15:55 | Outpatient (RCR) | payer MEDICARE, SELFPAY ==
[2024-11-08 17:28] LABS: Prothrombin Time (Protime)PT. 19.7 SECONDS (11.7-14.9)
[2024-11-16 10:51] LABS: Prothrombin Time (Protime)PT. 22.8 SECONDS (11.7-14.9)
[2024-11-30 18:21] LABS: Prothrombin Time (Protime)PT. 30.3 SECONDS (11.7-14.9)
== END 2024-12-04 18:00 | disposition home or self-care (01) ==
LOC: LAB 15:55
PROVIDERS: PCP Family Medicine; Referring Provider Physician Assistant Medical; Visit Provider Physician Assistant Medical
DX: I48.0 Paroxysmal atrial fibrillation (principal); Z79.01 Long term (current) use of 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
CPT/HCPCS: 36415; 85610

== ENCOUNTER 2025-01-11 15:05 | Outpatient (RCR) | payer MEDICARE, SELFPAY ==
[2025-01-11 15:46] LABS: Prothrombin Time (Protime)PT. 23.1 SECONDS (11.7-14.9)
== END 2025-02-02 18:00 | disposition home or self-care (01) ==
LOC: LAB 15:05
PROVIDERS: PCP Family Medicine; Referring Provider Physician Assistant Medical; Visit Provider Physician Assistant Medical
DX: I48.0 Paroxysmal atrial fibrillation (principal); Z79.01 Long term (current) use of 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
CPT/HCPCS: 36415; 85610

== ENCOUNTER → 2025-01-21 | Outpatient (CLI) | payer MEDICARE, SELFPAY ==
--- NOTE | 2025-01-21 12:34 | CDU_ITS ---
Reason For Study Reason For Study: Right ICA stenosis Rt. Velocities/BP Lt. Velocities/BP Prox CCA 90.5/21.2 cm/sec. Prox CCA 75.1/6.9 cm/sec. Mid CCA 78.4/20.1 cm/sec. Mid CCA 54.2/8 cm/sec. Dist CCA 65.2/20.1 cm/sec. Dist CCA 43.2/5.8 cm/sec. Prox ICA 108.3/35.3 cm/sec. Left ICA, Known Occlusion. Mid ICA 157.6/48 cm/sec. Prox ECA 176.3/9.4 cm/sec. Dist ICA 139.4/38.9 cm/sec. Lt. Vert. 52/13.5 cm/sec. Prox ECA 137.5/4.2 cm/sec. Rt. Vert. 52.2/15.4 cm/sec. Right Extracranial There is intimal thickening but no significant atherosclerotic plaque noted in the right common carotid artery. There is heterogeneous, irregular atherosclerotic plaque noted in the right internal carotid artery. There is heterogeneous, irregular atherosclerotic plaque noted in the right external carotid artery. Antegrade flow is noted in the right vertebral artery. Left Extracranial There is intimal thickening but no significant atherosclerotic plaque noted in the left common carotid artery. There is heterogeneous, irregular atherosclerotic plaque noted in the left internal carotid artery. The left internal carotid artery is occluded. There is heterogeneous, irregular atherosclerotic plaque noted in the left external carotid artery. Antegrade flow is noted in the left vertebral artery. Procedure Carotid Duplex 47078. This is a Carotid Duplex examination using B-mode, color flow and specral Doppler. Exam performed in department. VL/Carotid Duplex Ultrasound Interpretation Summary Moderate (50-69%) stenosis right extracranial internal carotid. 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 Patent and antegrade vertebrals bilaterally. Ordering Physician: Sofya Herrera Referring Physician: MD Demarcus Alexys Performed By: Sandrine Lunsford, RVT
== END | disposition home or self-care (01) ==
LOC: CVS 12:31
PROVIDERS: PCP Family Medicine; Referring Provider Physician Assistant; Visit Provider Physician Assistant
DX: I65.23 Occlusion and stenosis of bilateral carotid arteries (principal)
CPT/HCPCS: 93880

== ENCOUNTER 2025-02-12 17:53 | Observation (INO) | payer MEDICARE, SELFPAY ==
[2025-02-12 17:53] VITALS: BP 146/63; PULSE 66; RESP 16; TEMP 37; O2SAT 99; BMI 33.0
--- NOTE | 2025-02-12 18:20 | CT_ITS ---
PROCEDURE: CT ABDOMEN/PELVIS W IV CONT ONLY 02/12/2025 REASON FOR EXAM: LLQ PAIN, MELANOTIC STOOL TECHNIQUE: Procedure Code: [id number] Modality: CT Procedure: ABDOMEN/PELVIS W IV CONT ONLY Coronal and Sagittal reconstruction series were provided. CONTRAST: Isovue 370 VOLUME: 88 mL One or more dose reduction techniques were used (e.g., Automated exposure control, adjustment of the mA and/or kV according to patient size, use of iterative reconstruction technique. RADIATION DOSE SUMMARY: DLP: 1202.19 mGycm COMPARISON: 06/02/2024 FINDINGS: Lung bases: Clear. Liver: Nodular surface contour compatible with cirrhosis. Mild diffuse steatosis. Gallbladder: Surgically absent. Spleen: Mildly enlarged. Pancreas: Few parenchymal calcifications, sequelae of chronic pancreatitis. Adrenals: Unremarkable. Kidneys: Normal in size with symmetric enhancement. No urolithiasis or hydronephrosis. Prominent simple appearing exophytic cyst extending from the lower pole of the left kidney. Postoperative changes to the lower pole of the right kidney status post partial nephrectomy. Bladder: Unremarkable. Reproductive Organs: Prior hysterectomy. Unremarkable adnexae. Bowel: No evidence of obstruction or active inflammatory process. Appendix: Surgically absent. Lymph nodes: No suspicious lymph node enlargement. Vasculature: Normal in course and caliber. Mild-moderate atherosclerotic disease. Peritoneum / Retroperitoneum: No ascites or free air. Bones: Mild degenerative changes of the spine. Partially imaged right femur ORIF hardware. CT/Abdomen/Pelvis W IV Cont ONLY IMPRESSION: 1. No acute or active inflammatory intra-abdominal pathology. 2. Hepatic cirrhosis and mild splenomegaly. 3. Ancillary findings noted above. Reading Location: [id number]
--- NOTE | 2025-02-12 18:25 | ED.VIS.GI ---
HPI HPI - GI History of Present Illness Chief Complaint: GI Bleed Narrative Narrative: Patient is a 74-year-old female presenting to the emergency department for melanotic stool and left lower quadrant pain. Patient has a past medical history of duodenal ulcer, cirrhosis, A-fib on warfarin, thrombosed hemorrhoids, type 2 diabetes, hypertension, hyperlipidemia, CKD stage III and obesity. Patient states that today she had 1 bowel movement this evening that was black and watery. States that she was dealing with some constipation and took laxatives and then had this episode today. States that she also had some bright red blood in her stool but thinks this is from her hemorrhoids. She endorses lightheadedness but states this is chronic for her as well as nausea which is also chronic for her she states. States has been having a left lower quadrant pain for months. Unchanged from baseline. Denies any fever or chills. Denies any vomiting. Denies any dysuria or hematuria. She denies chest pain or shortness of breath. Denies any recent iron use or Pepto-Bismol. PFSH [facility] Medical History Pacemaker Obesity (BMI 30-39.9) Cancer of kidney Cirrhosis of liver not due to alcohol Goiter Depression History of renal carcinoma Stage 3a chronic kidney disease (CKD) Bilateral carotid artery stenosis (10/27/20) Complete heart block Thrombosed external hemorrhoid Osteoporosis Cancer Irregular heart beat DVT (deep venous thrombosis) TIA (transient ischemic attack) Rectal pain Chronic anemia Obesity PAF (paroxysmal atrial fibrillation) Asthma Diabetes Hemorrhoids Arthritis Hypertension VTE (venous thromboembolism) CVA (cerebral vascular accident) PAF (paroxysmal atrial fibrillation) HLD (hyperlipidemia) Home Medications ?Medication ?Instructions ?Recorded ?Last Taken ?Type loratadine 10 mg tablet 10 mg PO QHS allergies 30 days 07/23/16 02/11/25 Rx hydrocortisone 2.5 % topical cream 1 applic MN QD-BID PRN hemorrhoids 02/04/23 02/05/25 History with perineal applicator (Anusol-HC) metoprolol tartrate 50 mg tablet 50 mg PO BID heart #180 tabs 02/24/24 02/12/25 Rx glipizide 10 mg tablet, extended 10 mg PO BID blood sugar 04/18/24 02/12/25 History release 24 hr warfarin 2.5 mg tablet 2.5 mg PO MOTUWETH afib 05/15/24 02/12/25 History warfarin 5 mg tablet 5 mg PO SUMOFRSA afib 05/15/24 02/11/25 History losartan 25 mg tablet 12.5 mg (1/2 x 25 mg) PO DAILY #45 05/21/24 02/11/25 Rx tabs acetaminophen 500 mg capsule 500 mg PO Q6H PRN pain 02/12/25 02/08/25 History docusate sodium 100 mg capsule 100 mg PO DAILY stool softner 02/12/25 02/11/25 History (Colace) fluticasone propionate 50 1 spray intranasal DAILY allergies 02/12/25 02/12/25 History mcg/actuation nasal spray,suspension multivitamin (Daily Multi-Vitamin 1 tab PO DAILY supplement 02/12/25 02/12/25 History tablet) ondansetron 4 mg disintegrating 4 mg PO Q8H PRN Nausea 02/12/25 02/12/25 History tablet pantoprazole 40 mg tablet,delayed 40 mg PO BID gerd 02/12/25 02/12/25 History release rosuvastatin 20 mg tablet 20 mg PO QHS cholesterol 02/12/25 02/11/25 History Allergy/AdvReac Type Severity Reaction Status Date / Time simvastatin Allergy Severe Unknown Verified 02/12/25 17:55 etodolac AdvReac Intermediate GI upset Verified 02/12/25 17:55 gabapentin AdvReac Intermediate dizziness Verified 02/12/25 17:55 NSAIDS (Non-Steroidal AdvReac Intermediate GI upset Verified 02/12/25 17:55 Anti-Inflamma sulfamethoxazole AdvReac Intermediate Sulfa Verified 02/12/25 17:55 drugs GI upset sulfametrole AdvReac Intermediate GI upset Verified 02/12/25 17:55 valdecoxib (From Bextra) AdvReac Intermediate GI upset Verified 02/12/25 17:55 atorvastatin AdvReac Unknown unknown Verified 02/12/25 17:55 codeine AdvReac Unknown unknown Verified 02/12/25 17:55 guaifenesin (From Entex [place]) AdvReac Unknown unknown Verified 02/12/25 17:55 hydrocodone AdvReac Unknown unknown Verified 02/12/25 17:55 naproxen (From Naprosyn) AdvReac Unknown unknown Verified 02/12/25 17:55 phenylephrine (From Entex [place]) AdvReac Unknown unknown Verified 02/12/25 17:55 phenylpropanolamine (From AdvReac Unknown unknown Verified 02/12/25 17:55 Entex [place]) pravastatin AdvReac Unknown unknown Verified 02/12/25 17:55 quinapril (From Accupril) AdvReac Unknown Unknown Verified 02/12/25 17:55 rofecoxib (From Vioxx) AdvReac Unknown unknown Verified 02/12/25 17:55 Sulfa (Sulfonamide AdvReac Unknown Diarrhea Verified 02/12/25 17:55 Antibiotics) tramadol AdvReac Unknown unknown Verified 02/12/25 17:55 celecoxib (From Celebrex) AdvReac Nausea/Vom/ Verified 02/12/25 17:55 Diarrhea fluoxetine HCl (From Prozac) AdvReac Other Verified 02/12/25 17:55 isosorbide AdvReac Other Verified 02/12/25 17:55 metformin AdvReac Nausea/Vom/ Verified 02/12/25 17:55 Diarrhea Family History Mother CVA (cerebral vascular accident) Diabetes Heart disease Father CVA (cerebral vascular accident) Diabetes Heart disease Other jail (current) use of 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 Surgical History S/P placement of cardiac pacemaker History of incision and drainage H/O partial nephrectomy History of hysterectomy History of knee replacement History of cholecystectomy History of shoulder surgery History of appendectomy Social History household members: spouse Smoking Status: Never smoker alcohol intake: never substance use type: does not use additional social history: Ambulates with a wheeled walker ROS ROS ED ROS Narrative See HPI EXAM Physical Exam Narrative Exam Narrative: Vital signs: Reviewed General: Alert and oriented x 3. No acute distress. Chronically ill-appearing, nontoxic. HEENT: Head is normocephalic and atraumatic, sinuses nontender, pupils equal round and reactive. Nares are patent. Oropharynx and throat exams normal. Neck: Supple without lymphadenopathy nontender Cardiovascular: Regular rate and rhythm, no murmurs. No rubs or gallops. Normal S1 and S2 Respiratory: Clear to auscultation bilaterally. No wheezes, rales, rhonchi Abdominal: Soft and mildly tender to palpation in the left lower quadrant. Normal bowel sounds. No guarding or rebound. 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 Multiple external hemorrhoids. No evidence of thrombosis. No gross blood on rectal exam. Extremities: No tenderness. No bruising. Normal range of motion. Normal sensation. Skin: No rash or redness. Pale. The rest of the physical exam is unremarkable Const Vital Signs: 02/12/25 17:53 02/12/25 19:53 02/12/25 21:01 Temperature 98.6 F 97.9 F Temperature Source Oral Oral Pulse Rate 66 68 66 Respiratory Rate 16 16 16 Blood Pressure 146/63 H 107/52 L 157/76 H Blood Pressure Mean 90 70 103 Pulse Ox 99 100 100 Oxygen Delivery Method Room Air Room Air Room Air 02/12/25 21:02 Temperature 97.9 F Temperature Source Pulse Rate 66 Respiratory Rate 16 Blood Pressure 157/76 H Blood Pressure Mean 103 Pulse Ox 100 Oxygen Delivery Method MDM MDM MDM Narrative Medical decision making narrative: Patient is a 74-year-old female presenting to the emergency department for melanotic stool that started today. Patient was seen and examined. Vitals are stable. Stable BP of 146/63. Pulse of 66. She is afebrile. Differential includes but is not limited to: Upper versus lower GI bleed, hemorrhoids, anemia, diverticulitis, colitis Coagulation studies and type and screen ordered. Blood work ordered including CBC, CMP and lipase. Will obtain a CT of the abdomen pelvis with IV contrast given concern for possible diverticulitis or colitis with the left lower quadrant pain however I think this is less likely given the chronic nature of the pain. Patient was given Protonix and Rocephin given patient's history of cirrhosis. CBC with no leukocytosis and chronic anemia of 11.5. CMP with mild elevation in BUN and Cr. Lipase mildly elevated at 90, not 3 times the upper limit of normal. CT shows no acute or active inflammatory intra-abdominal pathology. Hepatic cirrhosis and mild splenomegaly. Fecal occult positive. Given patient's use of warfarin and history of cirrhosis I did recommend that she be admitted for observation and further management with possible GI consultation. Patient is agreeable with plan. Patient admitted to hospitalist, Dr. Mcmahon for further management. Clinical impression: GI bleed Chronic anemia History & Record Review Discussion w/independent historian: Patient and Significant other Lab Data Attestation: I reviewed the patient's lab results. Labs: Laboratory Results - last 24 hr 02/12/25 18:45 WBC 8.6 RBC 4.42 Hgb 11.5 L Hct 36.9 L MCV 83.5 MCH 26.0 L MCHC 31.2 L RDW Std Deviation 45.4 H RDW Coeff of Rukhsana 15.0 H Plt Count 241 MPV 11.9 Immature Gran % (Auto) 0.300 Neut % (Auto) 61.7 Lymph % (Auto) 28.4 [place] % (Auto) 7.0 Eos % (Auto) 1.7 Baso % (Auto) 0.9 Absolute Neuts (auto) 5.3 Absolute Lymphs (auto) 2.45 Nucleated RBC % 0 PT 28.2 H INR 2.6 APTT 42.0 H Sodium 138 Potassium 4.2 Chloride 103 Carbon Dioxide 23.5 Anion Gap 11 BUN 20 H Creatinine 1.28 H Estim Creat Clear Calc 41.45 L Est GFR (MDRD) Non-Af 43 L BUN/Creatinine Ratio 15.9 Glucose 231 H Calcium 9.6 Total Bilirubin 0.72 AST 41 H ALT 22 Alkaline Phosphatase 96 Total Protein 7.6 Albumin 4.0 Globulin 3.6 Albumin/Globulin Ratio 1.1 Lipase 90 H Urine Color Yellow Urine Clarity Clear Urine pH 6.0 Ur Specific [employer] 1.015 Urine Protein 15 H Urine Glucose (UA) Normal Urine Ketones Negative Urine Occult Blood 10 H Urine Nitrite Negative Urine Bilirubin Negative Urine Urobilinogen Normal Ur Leukocyte Esterase 100 H Urine RBC 0-5 SEEN Urine WBC 5-10 SEEN Ur Squamous Epith Cells 0-5 SEEN Urine Bacteria RARE Urine Mucus 0 SEEN Blood Type O POSITIVE Antibody Screen POSITIVE H Antibody Identification ANTI-E Antigen Identification E ANTIGEN - NEGATIVE Radiography Diagnostic Testing: Clinical Impression(s) from Imaging Studies Abdomen/Pelvis CT 02/12/25 18:20 IMPRESSION: 1. No acute or active inflammatory intra-abdominal pathology. 2. Hepatic cirrhosis and mild splenomegaly. 3. Ancillary findings noted above. Reading Location: [id number] Discharge Plan Disposition Disposition: Acute Care Hospital [facility] Discharge Date/Time: 02/12/25 21:50
[2025-02-12] MEDS: Pantoprazole Sodium 40 MG in 0.9% Normal Saline (100mL MB+) 100 ML 300 MG IV (18:46)
[2025-02-12 19:09] LABS: Mucous, Urine 0 SEEN /hpf (<or=2+)
[2025-02-12] MEDS: Ceftriaxone 2 GM in 0.9% Normal Saline (50mL MB+) 50 ML IV (19:19)
[2025-02-12 19:20] LABS: Hematocrit 36.9 % (37-47); Hemoglobin 11.5 g/dL (12.0-15.0); Immature Granulocytes Count 0.030 X10^3/uL (0.0-0.0); Mean Corp Hgb Conc 31.2 g/dL (32-36); Mean Corpuscular Volume 83.5 fL (81-99); Mean Platelet Vol. 11.9 fl (6.2-12.0); NRBC Flagged by Analyzer 0 % (0-5); Platelet Count 241 K/mm3 (150-450); RBC Distribution Width CV 15.0 % (11.6-14.6); RBC Distribution Width SD 45.4 fl (35.1-43.9); Red Blood Count 4.42 M/mm3 (4.2-5.4); White Blood Count 8.6 K/mm3 (4.4-11.0)
[2025-02-12 19:21] LABS: Color, Urine Yellow (Yellow); Glucose, Dipstick Normal (Normal); Ketone-Dipstick Negative (Negative); Leukocyte Esterase-Dipstick 100 /ul (Negative); Nitrite-Dipstick Negative (Negative); Occult Blood-Urine 10 /ul (Negative); Protein-Dipstick 15 mg/dl (Negative); Specific Gravity, Urine 1.015 (1.002-1.030); Urine Bilirubin Dipstick Negative (Negative)
[2025-02-12 19:38] LABS: Prothrombin Time (Protime)PT. 28.2 SECONDS (11.7-14.9)
[2025-02-12 19:39] LABS: Partial Thromboplast Time 42.0 Seconds (24.1-36.2)
[2025-02-12 19:53] VITALS: BP 107/52; PULSE 68; RESP 16; O2SAT 100
[2025-02-12 19:56] LABS: AST(SGOT) 41 U/L (<=31); Alanine Aminotransfer ALT/SGPT 22 U/L (<=34); Albumin, Serum 4.0 g/dL (3.4-4.8); Alkaline Phosphatase 96 U/L (35-104); Anion Gap 11 (5-15); BUN 20 mg/dL (4-19); BUN/Creat Ratio 15.9 RATIO (10-20); Calcium,Total 9.6 mg/dL (7.6-11.0); Carbon Dioxide 23.5 mmol/L (21.0-32.0); Chloride 103 mmol/L (98-108); Estimated Creatinine Clearance 41.45 ml/min (50-250); Globulin 3.6 g/dL (2.2-4.2); Glucose 231 mg/dL (70-99); Lipase 90 U/L (13-75); Potassium 4.2 mmol/L (3.3-5.1)
[2025-02-12 20:26] LABS: Red Blood Cells-Urine 0-5 SEEN /hpf (0-5); Squamous Epithelial Cells - UA 0-5 SEEN /hpf (5-10)
--- NOTE | 2025-02-12 21:00 | PCM.HP.STD ---
[facility] - General General Date of Admission: 02/12/25 Date of Service: 02/12/25 Chief Complaint: LLQ pain, melanotic stools. HPI Narrative The patient is a 74-year-old female with PMHx: GERD with history of previous duodenal ulcer/GI bleed, obesity, chronic hepatic cirrhosis nonalcoholic with chronically elevated CEA, history of right renal carcinoma, CKD stage II unclear subtype, history VTE, history of CVA, diabetes mellitus type 2, carotid disease, history complete heart block, hypertension, hyperlipidemia, chronic asthma with allergic rhinitis, PAF, GERD who presents to the [facility] ED on 02/12/2025 with concern for melanotic stools and left lower quadrant pain with 1 bowel movement on the evening of day of presentation noted to be black and watery recently dealing with constipation with self administration of laxatives earlier in the day with also some bright red blood in the stool however she does have ongoing hemorrhoids with lightheadedness however noted to be chronic with mild nausea also chronic per patient in addition to left lower quadrant pain however she also reports there is some chronic component to this with no emesis prompting eventual ED evaluation to be cautious. Patient denies any ongoing iron usage or Pepto-Bismol usage. She does report acute on chronic bloating sensation throughout the abdomen. She describes the LLQ pain as more aching, 3-4/10 in severity. Workup in the ED included T98.6, heart rate 66, BP 146/63, respiratory rate 16, 99% on room air with most recent repeat vitals heart rate 68, BP 107/52, respiratory rate 16, 100% on room air, CBC with WBC 8.6, Hgb 11.5, MCV 83.5, platelet 241, acute shift, coags with INR 2.6, CMP with BUN/creatinine 20/1.28, GFR 43, glucose 231, hepatic profile with AST 41 otherwise not marked appearing, lipase 90, urinalysis with specific gravity 1.015, protein 15, occult blood 10, negative nitrite, leukocyte esterase 100 with no marked urine WBCs or bacteria, type and screen initiated per ED physician, CT abdomen and pelvis with IV contrast only with no acute or active inflammatory intra-abdominal pathology, chronic hepatic cirrhosis and mild splenomegaly, stool guaiac positive. In the ED patient ministered Rocephin 2 g IV x 1 as well as Protonix 40 mg IV x 1. [facility] Medical History Pacemaker Obesity (BMI 30-39.9) Cancer of kidney Cirrhosis of liver not due to alcohol Goiter Depression History of renal carcinoma Stage 3a chronic kidney disease (CKD) Bilateral carotid artery stenosis (10/27/20) Complete heart block Thrombosed external hemorrhoid Osteoporosis Cancer Irregular heart beat DVT (deep venous thrombosis) TIA (transient ischemic attack) Rectal pain Chronic anemia Obesity PAF (paroxysmal atrial fibrillation) Asthma Diabetes Hemorrhoids Arthritis Hypertension VTE (venous thromboembolism) CVA (cerebral vascular accident) PAF (paroxysmal atrial fibrillation) HLD (hyperlipidemia) Home Medications ?Medication ?Instructions ?Recorded ?Last Taken ?Type loratadine 10 mg tablet 10 mg PO QHS allergies 30 days 07/23/16 02/11/25 Rx hydrocortisone 2.5 % topical cream 1 applic AL QD-BID PRN hemorrhoids 02/04/23 02/05/25 History with perineal applicator (Anusol-HC) metoprolol tartrate 50 mg tablet 50 mg PO BID heart #180 tabs 02/24/24 02/12/25 Rx glipizide 10 mg tablet, extended 10 mg PO BID blood sugar 04/18/24 02/12/25 History release 24 hr warfarin 2.5 mg tablet 2.5 mg PO MOTUWETH afib 05/15/24 02/12/25 History warfarin 5 mg tablet 5 mg PO SUMOFRSA afib 05/15/24 02/11/25 History losartan 25 mg tablet 12.5 mg (1/2 x 25 mg) PO DAILY #45 05/21/24 02/11/25 Rx tabs acetaminophen 500 mg capsule 500 mg PO Q6H PRN pain 02/12/25 02/08/25 History docusate sodium 100 mg capsule 100 mg PO DAILY stool softner 02/12/25 02/11/25 History (Colace) fluticasone propionate 50 1 spray intranasal DAILY allergies 02/12/25 02/12/25 History mcg/actuation nasal spray,suspension multivitamin (Daily Multi-Vitamin 1 tab PO DAILY supplement 02/12/25 02/12/25 History tablet) ondansetron 4 mg disintegrating 4 mg PO Q8H PRN Nausea 02/12/25 02/12/25 History tablet pantoprazole 40 mg tablet,delayed 40 mg PO BID gerd 02/12/25 02/12/25 History release rosuvastatin 20 mg tablet 20 mg PO QHS cholesterol 02/12/25 02/11/25 History Allergy/AdvReac Type Severity Reaction Status Date / Time simvastatin Allergy Severe Unknown Verified 02/12/25 17:55 etodolac AdvReac Intermediate GI upset Verified 02/12/25 17:55 gabapentin AdvReac Intermediate dizziness Verified 02/12/25 17:55 NSAIDS (Non-Steroidal AdvReac Intermediate GI upset Verified 02/12/25 17:55 Anti-Inflamma sulfamethoxazole AdvReac Intermediate Sulfa Verified 02/12/25 17:55 drugs GI upset sulfametrole AdvReac Intermediate GI upset Verified 02/12/25 17:55 valdecoxib (From Bextra) AdvReac Intermediate GI upset Verified 02/12/25 17:55 atorvastatin AdvReac Unknown unknown Verified 02/12/25 17:55 codeine AdvReac Unknown unknown Verified 02/12/25 17:55 guaifenesin (From Entex [place]) AdvReac Unknown unknown Verified 02/12/25 17:55 hydrocodone AdvReac Unknown unknown Verified 02/12/25 17:55 naproxen (From Naprosyn) AdvReac Unknown unknown Verified 02/12/25 17:55 phenylephrine (From Entex [place]) AdvReac Unknown unknown Verified 02/12/25 17:55 phenylpropanolamine (From AdvReac Unknown unknown Verified 02/12/25 17:55 Entex [place]) pravastatin AdvReac Unknown unknown Verified 02/12/25 17:55 quinapril (From Accupril) AdvReac Unknown Unknown Verified 02/12/25 17:55 rofecoxib (From Vioxx) AdvReac Unknown unknown Verified 02/12/25 17:55 Sulfa (Sulfonamide AdvReac Unknown Diarrhea Verified 02/12/25 17:55 Antibiotics) tramadol AdvReac Unknown unknown Verified 02/12/25 17:55 celecoxib (From Celebrex) AdvReac Nausea/Vom/ Verified 02/12/25 17:55 Diarrhea fluoxetine HCl (From Prozac) AdvReac Other Verified 02/12/25 17:55 isosorbide AdvReac Other Verified 02/12/25 17:55 metformin AdvReac Nausea/Vom/ Verified 02/12/25 17:55 Diarrhea Family History Mother CVA (cerebral vascular accident) Diabetes Heart disease Father CVA (cerebral vascular accident) Diabetes Heart disease 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 HEENT: Eyes: No visual loss, blurred vision, double vision or yellow sclerae. Ears, Nose, Throat: No hearing loss, sneezing, congestion, runny nose or sore throat. SKIN: No rash or itching, lesions, wounds. CARDIOVASCULAR: No chest pain, chest pressure or chest discomfort, palpitations, edema, orthopnea, syncopal events. RESPIRATORY: No shortness of breath, cough or sputum, wheezing, hemoptysis. GASTROINTESTINAL: + Chronic nausea, acute on chronic left lower quadrant pain, recent issues with constipation with now resulting diarrhea following laxatives with melanotic stool concern, intermittent bright red blood per rectum which is common for patient given hemorrhoids and reportedly stable, acute on chronic bloating. GENITOURINARY: No dysuria, frequency, urgency or retention. NEUROLOGICAL: + Chronic lightheadedness. No headache, dizziness, syncope, paralysis, ataxia, numbness or tingling in the extremities, focal weakness, change in bowel or bladder control, seizure. MUSCULOSKELETAL: + muscle, back pain, joint pain or stiffness. HEMATOLOGIC: + Chronic anemia, easy bleeding/bruising. LYMPHATICS: No enlarged nodes. No history of splenectomy. PSYCHIATRIC: No history of depression or anxiety. ENDOCRINOLOGIC: No reports of sweating, cold or heat intolerance. No polyuria or polydipsia. ALLERGIES: + History of asthma, allergic rhinitis. Vital Signs Vital Signs Vital Signs: 02/12/25 17:53 02/12/25 19:53 Temperature 98.6 F Temperature Source Oral Pulse Rate 66 68 Respiratory Rate 16 16 Blood Pressure 146/63 H 107/52 L Blood Pressure Mean 90 70 Pulse Ox 99 100 Oxygen Delivery Method Room Air Room Air Weight Weight: 198 lb 8 oz Body Mass Index (BMI) 33.0 Physical Exam Narrative Physical Examination: General: Awake, alert, oriented x 3 and cooperative, seated upright in the ED bed in no apparent distress, fatigued. Skin: Normal color, normal turgor, no icterus, no cyanosis except occasional staged ecchymoses, occasional abrasion. HEENT: AT/NC, EOMI, PERRLA, MMM, no carotid bruits or JVD noted. Lungs: Diminished, greater bases, appropriate effort, no appreciated rales, ronchi or wheezing. Heart: Regular rate and rhythm; no gallop, rub audible. Abdomen: Soft, obese, despite complaints of left lower quadrant tenderness no significant discomfort with palpation of the entire abdomen although generalized discomfort complaint, reports bloating but no marked distention evident, mildly hyperactive BS, + HM, CT scan also noting splenomegaly but not appreciated. Extremities: No cyanosis, no clubbing, mild distal ankle not markedly pitting edema, chronic. Neurological: Patient awake, alert, oriented as noted cognitive function intact; pupils equally reactive to light and accommodation, cranial nerves grossly normal, moving all 4 extremities, no focal deficits, strength mildly to moderately globally decreased secondary to acute presentation complaints. Psychiatric: Affect appears fatigued, anxious, no acute evidence of depressive feelings. Results Lab / Micro Data 02/12/25 18:45 02/12/25 18:45 Labs: Laboratory Results - last 24 hr 02/12/25 18:45: WBC 8.6, RBC 4.42, Hgb 11.5 L, Hct 36.9 L, MCV 83.5, MCH 26.0 L, MCHC 31.2 L, RDW Std Deviation 45.4 H, RDW Coeff of Rukhsana 15.0 H, Plt Count 241, MPV 11.9, Immature Gran % (Auto) 0.300, Neut % (Auto) 61.7, Lymph % (Auto) 28.4, Daniels % (Auto) 7.0, Eos % (Auto) 1.7, Baso % (Auto) 0.9, Absolute Neuts (auto) 5.3, Absolute Lymphs (auto) 2.45, Nucleated RBC % 0, PT 28.2 H, INR 2.6, APTT 42.0 H, Sodium 138, Potassium 4.2, Chloride 103, Carbon Dioxide 23.5, Anion Gap 11, BUN 20 H, Creatinine 1.28 H, Estim Creat Clear Calc 41.45 L, Est GFR (MDRD) Non-Af 43 L, BUN/Creatinine Ratio 15.9, Glucose 231 H, Calcium 9.6, Total Bilirubin 0.72, AST 41 H, ALT 22, Alkaline Phosphatase 96, Total Protein 7.6, Albumin 4.0, Globulin 3.6, Albumin/Globulin Ratio 1.1, Lipase 90 H, Urine Color Yellow, Urine Clarity Clear, Urine pH 6.0, Ur Specific [place] 1.015, Urine Protein 15 H, Urine Glucose (UA) Normal, Urine Ketones Negative, Urine Occult Blood 10 H, Urine Nitrite Negative, Urine Bilirubin Negative, Urine Urobilinogen Normal, Ur Leukocyte Esterase 100 H, Urine RBC 0-5 SEEN, Urine WBC 5-10 SEEN, Ur Squamous Epith Cells 0-5 SEEN, Urine Bacteria RARE, Urine Mucus 0 SEEN, Blood Type O POSITIVE Micro: Microbiology 02/12/25 18:54 Stool Stool Occult Blood (MANDY) - Final Occult Blood Positive Imaging Radiology Impression Abdomen/Pelvis CT 02/12/25 18:20 IMPRESSION: 1. No acute or active inflammatory intra-abdominal pathology. 2. Hepatic cirrhosis and mild splenomegaly. 3. Ancillary findings noted above. Reading Location: [id number] Assessment & Plan Assessment/Plan (1) LUQ pain: PLAN: Plan The patient is a 74-year-old female with PMHx: GERD with history of previous duodenal ulcer/GI bleed, obesity, chronic hepatic cirrhosis nonalcoholic with chronically elevated CEA, history of right renal carcinoma, CKD stage II unclear subtype, history VTE, history of CVA, diabetes mellitus type 2, carotid disease, history complete heart block, hypertension, hyperlipidemia, chronic asthma with allergic rhinitis, PAF, GERD who presents to the [facility] ED on 02/12/2025 with concern for melanotic stools and left lower quadrant pain with 1 bowel movement on the evening of day of presentation noted to be black and watery recently dealing with constipation with self administration of laxatives earlier in the day with also some bright red blood in the stool however she does have ongoing hemorrhoids with lightheadedness however noted to be chronic with mild nausea also chronic per patient in addition to left lower quadrant pain however she also reports there is some chronic component to this with no emesis prompting eventual ED evaluation to be cautious. #1. Acute left lower quadrant pain with concern for possible GI Bleed w/ chronic normocytic anemia complicated/made worse by chronic anticoagulant therapy/hypercoaguable state: Will admit to [facility] given stable vital signs, will judiciously hydrate, allow clears until midnight with n.p.o. status following, will continue serial H&H assessments, guaiac positive per ED, type and screen already performed per ED physician, will maintain on prophylactic Rocephin as well as IV Protonix drip, GI will be consulted, will administer vitamin K and continue to trend INR however given current stable vital signs and stable hemoglobin will defer any FFP at this time but low threshold to use if necessary. Of note note most recently noted upper/lower scopes 11/01/2024 screening upper endoscopy with normal esophagus, portal hypertensive gastropathy, normal examined duodenum, dilation in the upper third of the main bile duct measuring up to 8 mm, normal ampulla, no demonstrated significant pathology in the main pancreatic duct, colonoscopy with one 3 mm polyp in the cecum which was removed with a cold biopsy forcep, resected and retrieved. #2. Chronic hepatic cirrhosis, nonalcoholic associated with chronically elevated CEA: Following with hepatology, last visit noted 01/10/2025, per note hepatic autoimmune evaluation negative, no aggressive usage of NSAIDs, liver ultrasound and elastography demonstrated median liver stiffness 15.1 kPa, median velocity 2.22 and elevated serum ELF 11.58 suggestive of advanced chronic liver fibrosis/early cirrhosis, all highly suggestive of early cirrhosis, per record has been hesitant to have a biopsy performed. Given this history patient will remain on prophylactic Rocephin therapy. #3. History of right renal carcinoma: Status post right partial nephrectomy, reportedly considered in remission, encourage follow-up as previously arranged. #4. Chronic Kidney Disease Stage III, unclear subtype or GFR trending: Admission BUN/Cr 20/1.28, GFR 43, baseline renal function primarily 0.9-1.1, repeat BMP in AM. #5. History of VTE: INR upon presentation therapeutic, 2.6, will temporally hold Coumadin and as noted will administer vitamin K and continue to trend INR however given current stable vital signs and stable hemoglobin will defer any FFP at this time but low threshold to use if necessary. #6. History CVA: Holding Coumadin as noted given concerns, will continue hypertensive regimen, statin therapy, hold oral diabetic regimen temporarily as noted. #7. Diabetes mellitus type II: Hold oral home regimen, given current presentation will allow clears until midnight with n.p.o. status following while further assessment as noted above, maintain on every 6 hours accu checks w/ ISS. #8. Carotid disease: Most recent noted carotid duplex ultrasound 01/21/2025 with moderate 50 to 69% stenosis of the right extracranial internal carotid, occlusion of the left extracranial internal carotid, patent and antegrade vertebrals bilaterally, temporally holding Coumadin as noted, continue statin therapy, continue hypertensive regimen, diabetic regimen with adjustments as noted. #9. History complete heart block: Status post cardiac pacemaker, encourage continued follow-up with interrogation as previously arranged. #10. Hypertension: Continue home regimen including metoprolol, losartan with hold parameters, PRN hydralazine. #11. Hyperlipidemia: Will continue patient on statin therapy. #12. Chronic asthma with allergic rhinitis: Per current list does not appear to be on chronic regimen, will have as needed albuterol, encourage head of bed, I-S, continue patient home loratadine and fluticasone home regimen. #13. PAF: Will continue patient home metoprolol regimen, temporally holding Coumadin, trend INR, defer reversal given stable hemoglobin however if H&H decreases with assessment low threshold to initiate. #14. GERD: Will maintain on Protonix drip. #15. Obesity: Weight loss and lifestyle changes encouraged. #16. DVT prophylaxis: SCDs, as noted above holding coumadin, will administer vitamin K and continue to trend INR however given current stable vital signs and stable hemoglobin will defer any FFP at this time but low threshold to use if necessary. #17. CODE status: Patient HARINDER is her who is present and living will is currently in place. Discussed CODE status at length including difference between FULL code, DNR-CCA and DNR-CC status. Following discussions about the differences in these status, requested Full Code status. Advanced Care Planning Face to Face Time: 16 minutes. Charges/Coding Visit Charges Inpatient E&M: 38597 Init Hosp L3 Procedures Hospitalists Procedures: 68702 Advncd Care Plan 30 Min
[2025-02-12 21:01] VITALS: BP 157/76; PULSE 66; RESP 16; TEMP 36.6; O2SAT 100
[2025-02-12 21:02] VITALS: BP 157/76; PULSE 66; RESP 16; TEMP 36.6; O2SAT 100
--- OUTSIDE RECORDS SUMMARY | 2025-02-12 21:49 | XMS RPT_ITS | CCD ---
Author Organization [facility] Care Team Providers Care Button Maker Name Role Phone Divya Dockery Unavailable [phone] Unavailable Unavailable Unavailable Christie, Vic Unavailable Unavailable Christie, Vic Unavailable Unavailable Rafael, Norma L Unavailable Unavailable Christie, Vic Unavailable Unavailable Christie, Vic Unavailable Unavailable Rafael, Norma L Unavailable Unavailable Christie, Vic A Unavailable Unavailable Christie, Vic A Unavailable Unavailable Christie, Vic A Unavailable Unavailable Hcristie, Vic A Unavailable Unavailable Divya Dockery Primary Care Provider [phone] CHRISTEI, VIC KHUSHI Attending Unavailable CHRISTIE, VIC KHUSHI Referring Unavailable DIVYA DOCKERY Primary Care Unavailable CHRISTIE, VIC KUHSHI Attending Unavailable CHRISTIE, VIC KHUSHI Referring Unavailable CHRISTINE, OTONIEL Primary Care Unavailable CHRISTIE, VIC KHUSHI Admitting Unavailable CHRISTIE, VIC KHUSHI Referring Unavailable CHRISTIEN, OTONIEL Primary Care Unavailable Christine, Otoniel Primary Care Provider CHRISTIE, VIC KHUSHI Attending Unavailable CHRISTINE, OTONIEL Primary Care Unavailable ZAC SULLIVAN Attending Unavaila ble DIVYA DOCKERY Primary Care Unavailable DIVYA DOCKERY Primary Care Unavailable VIC CHRISTIE Attending Unavailable DIVYA DOCKERY Primary Care Unavailable CHELI TALLEY Attending Unavailable DIVYA DOCKERY Primary Care Unavailable CHRISTIE, VIC PURI Attending Unavailable DIVYA DOCKERY Primary Care Unavailable ABHILASH STALLWORTH Attending Unavailable CHRISTINE, OTONIEL Primary Care Unavailable CHELI TALLEY Attending Unavailable CHRISTINE, OTONIEL Primary Care Unavailable CHRISTIE, VIC KHUSHI Attending Unavailable CHRISTIE, VIC KHUSHI Attending Unavailable CHRISTINE, OTONIEL Primary Care Unavailable CHRISTIE, VIC KHUSHI Attending Unavailable CHRISTINE, OTONIEL Primary Care Unavailable CHRISTIE, VIC KHUSHI Attending Unavailable CHRISTINE, OTONIEL Primary Care Unavailable SARKIS, DIVYA NDIAYE Primary Care Unavailable CHRISTIE, VIC KHUSHI Attending Unavailable SARKIS, DIVYA ZELDA Primary Care Unavailable CHRISTIE, VIC KHUSHI Attending Unavailable CHRISTIE, VIC KHUSHI Attending Unavailable CHRISTINE, OTONIEL Primary Care Unavailable Christine, Otoniel Primary Care Provider Christine MORTICIAN INVESTIGATOR, Otoniel Primary Care Provider Christine MORTICIAN INVESTIGATOR, Otoniel Primary Care Provider Flako Tracy MD Primary Care Provider 13, Pharmacist Unavailable Dr. Flako Tracy Primary Care Provider [phone] Dr. Flako Tracy Referring Provider Dr. Neal Sun Attending Provider Dr. Flako Tracy Primary Care Provider Dr. Flako Tracy Referring Provider Dr. Neal Sun Attending Provider [phone] Dr. Mark Ryan Attending Provider Dr. Kelsi Brower Emergency Provider Dr. South Jesus Admit Provider Unavailabl e Dr. South Jesus Other Provider Unavailabl e Dr. Low Patino Other Provider Dr. Maykel Sloan Attending Provider Dr. Maykel Sloan Other Provider Dirk SANDOVAL, PA Kay Johnston Attending Provider Low Patino MD Unavailable Deon CANTU, Denille Unavailable Dr. Flako Tracy Primary Care Provider Dr. Flako Tracy Referring Provider SIMONE Mariee Attending Provider Darleen Aranda Attending Provider Unavailable Dr. Flako Tracy Attending Provider LEONEL OTERO Attending Unavailable LEONEL OTERO Admitting Unavailable BONNIE RAMIREZ Referring Unavailable FLAKO TRACY Primary Care Unavailable FLAKO TRACY Primary Care Unavailable FLAKO TRACY Primary Care Unavailable GEORGIE STALLWORTH Referring Unavailable FLAKO TRACY Primary Care Unavailable Dr. Low Patino Attending Provider [phone] Gina Barrera Attending Provider Unavailable 13, Pharmacist Unavailable Dr. Flako Tracy Primary Care Provider Dr. Flako Tracy Referring Provider SIMONE Mariee Attending Provider Darleen Aranda Attending Provider Unavailable Dr. Flako Tracy Attending Provider Dr. Low Patino Attending Provider [phone] Gina Barrera Attending Provider Unavailable LORI Huang Attending Provider Dr. Flako Tracy Primary Care Provider Dr. Flako Tracy Referring Provider Dr. Low Patino Referring Provider [phone] Adonis Newman Attending Provider Flako Tracy MD Primary Care Provider Dr. Flako Tracy Primary Care Provider Dr. Low Patino Attending Provider [phone] Flako Tracy Referring Provider LORI Huang Attending Provider LORI Huang Referring Provider Rick SILK SCREEN CUTTER.MORTICIAN INVESTIGATOR, Georgie Unavailable Christine SILK SCREEN CUTTER.MORTICIAN INVESTIGATOR, Otoniel Unavailable Dr. Flako Tracy MD Primary Care Provider [phone] Kay Huang Attending Provider Kay Huang Referring Provider [phone] Carey BRYANT, Dr. Kelsey Attending Provider [phone] Carey BRYANT, Dr. Kelsey Referring Provider [phone] Echo BRYANT, Dr. Anders Other Provider [phone] Echo BRYANT, Dr. Anders Attending Provider Echo BRYANT, Dr. Anders Referring Provider Min WILSON, Dr. Espinoza Emergency Provider Trent BRYANT, Dr. Lamb Attending Provider Dr. Gallito Roberson MD Emergency Provider Jesus DO, Dr. Dia Admit Provider Unavail able Jesus DO, Dr. Dia Attending Provider Unav ailable Dr. Alexis Copeland DO Attending Provider Jesus DO, Dr. Dia Other Provider Unavail able Dr. Adonis Love DO Attending Provider Dr. Adonis Love DO Other Provider Dr. Omer Jane DO Attending Provider Dr. Adonis Love DO Referring Provider Dr. Flako Tracy MD Primary Care Provider Kay Huang Attending Provider Kay Huang Referring Provider Dr. Timothy James DO Emergency Provider Dr. Ian Brambila DO Emergency Provider Dr. Cheryl Carroll DO Admit Provider Glen WILSON, Dr. Luna Attending Provider Demarcus BRYANT, Dr. Reardon Primary Care Provider Carey BRYANT, Dr. Kelsey Attending Provider Carey BRYANT, Dr. Kelsey Referring Provider Dirk SANDOVAL, Kay Johnston Attending Provider Kay Huang Referring Provider Echo BRYANT, Dr. Anders Other Provider Echo BRYANT, Dr. Anders Attending Provider Echo BRYANT, Dr. Anders Referring Provider Trent BRYANT, Dr. Lamb Attending Provider [phone] Min WILSON, Dr. Espinoza Attending Provider [phone] Min WILSON, Dr. Espinoza Emergency Provider Da BRYANT, Dr. Conti Emergency Provider Jesus DO, Dr. Dia Admit Provider Unavail able de Luis Antonio WILSON, Dr. Dia Other Provider Unavail able Ivan WILSON, Dr. Lamb Attending Provider Ivan WILSON, Dr. Lamb Other Provider Ivan WILSON, Dr. Lamb Referring Provider Buck WILSON, Dr. Tello Attending Provider Dr. Timothy James DO Attending Provider Dr. Timothy James DO Emergency Provider Dr. Ian Brambila DO Emergency Provider Glen WILSON, Dr. Luna Admit Provider Glen WILSON, Dr. Luna Other Provider Dr. South Lopez MD Attending Provider Unavaila ble Glen WILSON, Dr. Luna Attending Provider Dr. South Lopez MD Other Provider Unavailable Androney WILSON, Dr. Aguirre Attending Provider Glen WILSON, Dr. Luna Other Provider Jessica BRYANT, Dr. Dia Attending Provider Unavaila ble Glen WILSON, Dr. Luna Attending Provider Jessica BRYANT, Dr. Dia Other Provider Unavailable Tannhof SILK SCREEN CUTTER.MORTICIAN INVESTIGATOR, Georgie Unavailable Unavail able Tannhof SILK SCREEN CUTTER.MORTICIAN INVESTIGATOR, Georgie Unavailable Demarcus BRYANT, Dr. Reardon Primary Care Provider Carey BRYANT, Dr. Kelsey Attending Provider Carey BRYANT, Dr. Kelsey Referring Provider Demarcus BRYANT, Dr. Reardon Attending Provider Demarcus BRYANT, Dr. Reardon Referring Provider Luther BRYANT, Dr. Brar Attending Provider Sofya Brown Attending Provider Christine PRODUCER ASSISTANT-C, Otoniel Attending Provider Luther BRYANT, Dr. Brar Referring Provider Christine MORTICIAN INVESTIGATOR, Otoniel Primary Care Provider [facility] SILK SCREEN CUTTER.MORTICIAN INVESTIGATOR, Georgie Amanda Unavailable Demarcus BRYANT, Dr. Reardon Primary Care Provider Kay Huang Attending Provider Kay Huang Referring Provider Dr. London Anna MD Other Provider Carey BRYANT, Dr. Kelsey Attending Provider Demarcus BRYANT, Dr. Reardon Primary Care Provider Demarcus BRYANT, Dr. Reardon Primary Care Provider Carey BRYANT, Dr. Kelsey Attending Provider Demarcus BRYANT, Dr. Reardon Attending Provider Demarcus BRYANT, Dr. Reardon Referring Provider Luther BRYANT, Dr. Brar Attending Provider Sofya Brown Attending Provider Dirk SANDOVAL, Kay Johnston Referring Provider Christine PRODUCER ASSISTANT-COtoniel Attending Provider Luther BRYANT, Dr. Brar Referring Provider Dirk SANDOVAL, Kay Johnston Attending Provider Echo BRYANT, Dr. Anders Other Provider Carey BRYANT, Dr. Kelsey Referring Provider Demarcus BRYANT, Dr. Reardon Primary Care Provider [phone] Demarcus BRYANT, Dr. Reardon Attending Provider Luther BRYANT, Dr. Brar Attending Provider Carey BRYANT, Dr. Kelsey Attending Provider Demarcus BRYANT, Dr. Reardon Referring Provider Demarcus BRYANT, Dr. Reardon Primary Care Provider Dirk SANDOVAL, Kay Johnston Referring Provider Demarcus BRYANT, Dr. Reardon Primary Care Physician Kay Huang Attending Physician Echo BRYANT, Dr. Anders Nurse Practitioner Carey BRYANT, Dr. Kelesy Attending Physician Luther BRYANT, Dr. Brar Attending Physician Luther BRYANT, Dr. Brar Referring Provider Cayden BRYANT, Dr. Young Attending Physician FLAKO TRACY Primary Care Unavailable OTONIEL KING Attending Unavailable FLAKO TRACY Primary Care Unavailable GEORGIE STALLWORTH Attending UnavailFLAKO Marie Primary Care Unavailable GEORGIE STALLWORTH Referring UnavailFLAKO Marie Primary Care Unavailable GEORGIE STALLWORTH Referring UnavailDARIELA Virk Referring Unavailable FLAKO TRACY Primary Care Unavailable DARIELA COUTLER Referring Unavailable ANIKA GALAN Attending Unavailable FLAKO TRACY Primary Care Unavailable ELDERBROCK, FLAKO D Primary Care Unavailable OTONIEL KING Attending Unavailable NORMA FERNÁNDEZ Attending Unavailable ELDERBROCK, FLAKO D Primary Care Unavailable ELDERBROCK, FLAKO D Primary Care Unavailable ELDERBROCK, FLAKO D Referring Unavailable ELDERBROCK, FLAKO D Primary Care Unavailable LONDON CONCEPCION Attending Unavailable ELDERBROCK, FLAKO D Attending Unavailable ELDERBROCK, FLAKO D Primary Care Unavailable ADRIA ANSARI Attending Unavaila ble ELDERBROCK, FLAKO D Primary Care Unavailable CHELSI COBB Referring Unavailable ELDERBROCK, FLAKO D Primary Care Unavailable DARIELA COULTER Referring Unavailable ELDERBROCK, FLAKO D Primary Care Unavailable DARIELA COULTER Referring Unavailable ELDERBROCK, FLAKO D Primary Care Unavailable MANA CARRENO Attending Unavailable ELDERBROCK, FLAKO D Primary Care Unavailable ELDERBROCK, FLAKO D Primary Care Unavailable GEORGIE STALLWORTH Referring Unavailabl e ELDERBROCK, FLAKO D Primary Care Unavailable GEORGIE STALLWORTH Referring Unavailabl e ELDERBROCK, FLAKO D Primary Care Unavailable OTONIEL KING Referring Unavailable ELDERBROCK, FLAKO D Primary Care Unavailable JERROD BUSBY Attending Unavailable OTONIEL KING Referring Unavailable Elderbrock, Flako Primary Care Unavailable London Anna Referring Unavailable Adonis Newman Attending Unavailable Kay Huang Referring Unavail able Elderbrock, Flako Primary Care Unavailable London Anna Consulting Unavailable Kay Huang Attending Unavail able Elderbrock, Flako Primary Care Unavailable Yaya Herreraison Attending Unavailable Herrera, Sofya Referring Unavailable HerreraYayaSofya Referring Unavailable Yaya Herreraison Attending Unavailable Elderbrock, Flako Primary Care Unavailable Kay Huang Referring Unavail able Elderbrock, Flako Primary Care Unavailable Kay Huang Attending Unavail able Elderbrock, Flako Primary Care Unavailable London Anna Referring Unavailable London Anna Attending Unavailable Kay Huang Referring Unavail able London Anna Consulting Unavailable Kay Huang Attending Unavail able Elderbrock, Flako Primary Care Unavailable Kay Huang Referring Unavail able London Anna Consulting Unavailable Elderbrock, Flako Primary Care Unavailable Kay Huang Attending Unavail able Elderbrock, Flako Primary Care Unavailable South Jesus Consulting Unavailable South Jesus Admitting Unavailable Adonis Love Attending Unavailable Kay Huang Referring Unavail able Elderbrock, Flako Primary Care Unavailable Kay Huang Attending Unavail able Otoniel King NP Attending Unavailable Elderbrock, Flako Primary Care Unavailable Luther, Maykel Attending Unavailable Luther, Maykel Referring Unavailable Elderbrock, Flako Primary Care Unavailable Elderbrock, Flako Primary Care Unavailable Alexis Copeland Attending Unavailable Timothy James Attending Unavailable Elderbrock, Flako Primary Care Unavailable [facility], Maykel Attending Unavailable Luther, Maykel Referring Unavailable Elderbrock, Flako Primary Care Unavailable Luther, Maykel Attending Unavailable Luther, Maykel Referring Unavailable Elderbrock, Flako Primary Care Unavailable Anna, London Consulting Unavailable Elderbrock, Flako Primary Care Unavailable Kay Huang Attending Unavail able Kay Huang Referring Unavail able Kay Huang Referring Unavail able Elderbrock, Flako Primary Care Unavailable Kay Huang Attending Unavail able Carey, Athol Attending Unavailable Elderbrock, Flako Primary Care Unavailable [facility], Maykel Attending Unavailable Elderbrock, Flako Primary Care Unavailable Elderbrock, Flako Referring Unavailable Anna, London Consulting Unavailable Elderbrock, Flako Primary Care Unavailable Kay Huang Attending Unavail able Kay Huang Referring Unavail able South Lopez Attending Unavailable Cheryl Carroll Consulting Unavailable Cheryl Carroll Admitting Unavailable Elderbrock, Flako Primary Care Unavailable Kay Huang Referring Unavail able London Anna Consulting Unavailable Elderbrock, Flako Primary Care Unavailable Kay Huang Attending Unavail able Carey, Athol Attending Unavailable Elderbrock, Flako Primary Care Unavailable Kay Huang Referring Unavail able Elderbrock, Flako Primary Care Unavailable Echo London Consulting Unavailable Kay Huang Attending Unavail able Carey, Athol Attending Unavailable Carey, Athol Referring Unavailable Elderbrock, Flako Primary Care Unavailable Carey, Athol Referring Unavailable Carey, Athol Attending Unavailable Elderbrock, Flako Primary Care Unavailable Elderbrock, Flako Primary Care Unavailable Elderbrock, Flako Attending Unavailable Elderbrock, Flako Primary Care Unavailable Elderbrock, Flako Attending Unavailable Elderbrock, Flako Primary Care Unavailable Hector Rodarte Attending Unavailable South Lopez Attending Unavailable Cheryl Carroll Consulting Unavailable Cheryl Carroll Admitting Unavailable Elderbrock, Flako Primary Care Unavailable South Lopez Consulting Unavailable Cheryl Carroll Attending Unavailable [facility], Flako Primary Care Unavailable South Jesus Attending Unavailable South Jesus Consulting Unavailable South Jesus Admitting Unavailable Jopperi, Adonis Consulting Unavailable Jopperi, Adonis Attending Unavailable Omer Jane Attending Unavailable Ivan, Adonis Referring Unavailable Maykel Sloan Attending Unavailable Elderbrock, Flako Primary Care Unavailable Elderbrock, Flako Referring Unavailable Elderbrock, Flako Primary Care Unavailable Elderbrock, Flako Referring Unavailable Kay Huang Attending Unavail able Carey, Low Referring Unavailable Carey, Low Attending Unavailable Elderbrock, Flako Primary Care Unavailable Elderbrock, Flako Primary Care Unavailable London Anna Attending Unavailable Elderbrock, Flako Referring Unavailable Kay Huang Referring Unavail able Sofya Herrera Attending Unavailable [facility], Flako Primary Care Unavailable Carey, Low Referring Unavailable Carey, Low Attending Unavailable [facility], Flako Primary Care Unavailable Allergies Allergy Classification Reported Allergen(s) Allergy Type Date of Onset Reaction(s) Facility Isosorbide (1 source) Isosorbide Drug Allergy 03-18-19 18 Other (See Comments) [facility] metFORMIN (1 source) metFORMIN Drug Allergy 10-24-19 15 Diarrhea [facility] Serotonin Reuptake Inhibitors (SSRIs) (2 sources) FLUoxetine Drug Allergy 03-17-19 17 Other (See Comments) [facility] Unclassified (1 source) HMG-CoA reductase inhibitor Propensity to adverse reactions to drug 04-06-19 18 [facility] Work Phone: Unclassified (9 sources) Non-steroidal anti-inflammatory agent Propensity to adverse reactions to drug 10-24-19 15 Other (See Comments), Other: See Comments [facility] (15 sources) FLUoxetine; Translations: [FLUOXETINE] Propensity to adverse reactions to drug 03-17-19 17 [facility] Work Phone: (13 sources) Hmg-Coa Reductase Inhibitors (Statins); Translations: [Unknown] Propensity to adverse reactions to drug 04-06-19 18 [facility] Work Phone: (20 sources) metFORMIN; Translations: [METFORMIN] Propensity to adverse reactions to drug 10-24-19 15 Diarrhea [facility] Work Phone: (20 sources) NSAIDs; Translations: [NSAIDS (NON-STEROIDAL ANTI-INFLAMMATORY DRUG)] Propensity to adverse reactions to drug 10-24-19 Other (See Comments), Other: See Comments [facility] Work Phone: (1 source) atorvastatin; Translations: [Lipitor] Drug Allergy [facility] Repository (1 source) ciprofloxacin; Translations: [facility]ciprofloxacin] [facility] dilTIAZem; Translations: [Cardizem] Drug Allergy [facility] Repository (1 source) enalapril; Translations: [Vasotec] Drug Allergy [facility] Rep[facility] (1 source) NSAIDs; Translations: [NSAIDs] Propensity to adverse reactions [facility] drug [facility]disorder[facility] Sulfonamides (Antibiotic); Translations: [sulfa drugs] Propensity to adverse reactions to drug (disorder[facility] ([facility]) No Known Allergies; Translations: [No Known Allergies] Propensity to adverse reactions to drug (disorder) [facility] Repository (20 sources) FLUoxetine; Translations: [FLUOXETINE HCL] Drug Allergy 03-18-19 18 Other (See Comments) [facility] (20 sources) isosorbide; Translations: [ISOSORBIDE] Drug Allergy 03-18-19 Other (See Comments) [facility] (2 sources) HMG-CoA reductase inhibitor Propensity to adverse reactions to drug 04-06-19 [facility] Work Phone: (20 sources) Non-steroidal anti-inflammatory agent Propensity to adverse reactions to drug 10-24-19 Other (See Comments), Unknown, Other: See Comments [facility] (20 sources) Acetaminophen / HYDROcodone; Translations: [HYDROCODONE-ACETAMINO PHEN] Drug Allergy 07-06-19 Other: See Comments [facility] Work Phone: (20 sources) Acetaminophen / traMADol; Translations: [TRAMADOL-ACETAMINOPHE N] Drug Allergy 07-06-19 Other: See Comments [facility] Work Phone: (20 sources) atorvastatin; Translations: [ATORVASTATIN CALCIUM] Drug Allergy 07-06-19 Other: See Comments [facility] Work Phone: (20 sources) celecoxib; Translations: [CELECOXIB] Drug Allergy 07-06-[address] [facility] Work Phone: (20 sources) Codeine; Translations: [CODEINE] Drug Allergy 07-06-19 Other: See Comments [facility] Work Phone: (20 sources) Etodolac; Translations: [ETODOLAC] Drug Allergy 07-06-[address] [facility] Work Phone: (20 sources) gabapentin; Translations: [GABAPENTIN] Drug Allergy 11-04-19 Other: See Comments [facility] (20 sources) guaiFENesin / Phenylephrine; Translations: [PHENYLEPHRINE-GUAIFEN ESIN] Drug Allergy 07-06-19 Other: See Comments [facility] Work Phone: (20 sources) metFORMIN; Translations: [METFORMIN HCL] Drug Allergy 07-06-19 Other: See Comments [facility] Work Phone: (20 sources) Naproxen; Translations: [NAPROXEN] Drug Allergy 07-06-19 Other: See Comments [facility] Work Phone: (20 sources) Pravastatin; Translations: [PRAVASTATIN SODIUM] Drug Allergy 07-06-19 Other: See Comments [facility] Work Phone: (20 sources) quinapril; Translations: [QUINAPRIL HCL] Drug Allergy 07-06-19 Other: See Comments [facility] Work Phone: (20 sources) rofecoxib; Translations: [ROFECOXIB] Drug Allergy 07-06-19 Other: See Comments [facility] Work Phone: (20 sources) Simvastatin; Translations: [SIMVASTATIN] Drug Allergy 07-06-19 Other: See Comments [facility] Work Phone: Comment on above: migraine (20 sources) Sulfonamides (Antibiotic); Translations: [SULFA (SULFONAMIDE ANTIBIOTICS)] Drug Allergy 07-09-[address] [facility] (20 sources) valdecoxib; Translations: [VALDECOXIB] Drug Allergy 07-06-[address] [facility] Work Phone: (20 sources) Sulfonamides (Antibiotic) Propensity to adverse reactions 08-15-19 Diarrhea [facility] (20 sources) atorvastatin Drug Allergy 02-05-20 unknown [facility] (20 sources) guaiFENesin Drug Allergy 02-05-20 unknown [facility] (20 sources) HYDROcodone Drug Allergy 02-05-20 unknown [facility] (20 sources) Phenylephrine Drug Allergy 02-05-20 [facility] (20 sources) Phenylpropanolamine Drug Allergy 02-05-20 [facility] (20 sources) Pravastatin Drug Allergy 02-05-20 [facility] (20 sources) quinapril Drug Allergy 02-05-20 [facility] (20 sources) Sulfamethoxazole Drug Allergy 02-05-20 Sulfa drugs GI upset [facility] (20 sources) sulfametrole Drug Allergy 02-05-20 [facility] (20 sources) traMADol Drug Allergy 02-05-20 unknown [facility] (1 source) atorvastatin Drug Allergy 01-11-20 [facility] Repository (1 source) celecoxib Drug Allergy 01-11-20 [facility] Repository (1 source) Codeine Drug Allergy 01-11-20 [facility] Rep[facility] (1 source) Etodolac Drug Allergy 01-11-20 [facility] (1 source) FLUoxetine Drug Allergy 01-11-20 [facility] Rep[facility] (1 source) gabapentin Drug Allergy 01-11-20 [facility] Rep[facility] (1 source) guaiFENesin Drug Allergy 01-11-20 [facility] Rep[facility] (1 source) HYDROcodone Drug Allergy 01-11-20 [facility] (1 source) Isosorbide Drug Allergy 01-11-20 [facility] (1 source) metFORMIN Drug Allergy 01-11-20 [facility] Rep[facility] (1 source) Naproxen Drug Allergy 01-11-20 [facility] (1 source) Phenylephrine Drug Allergy 01-11-20 [facility] Rep[facility] (1 source) Phenylpropanolamine Drug Allergy 01-11-20 [facility] (1 source) Pravastatin Drug Allergy 01-11-20 [facility] (1 source) quinapril Drug Allergy 01-11-20 [facility] (1 source) rofecoxib Drug Allergy 01-11-20 [facility] (1 source) Simvastatin Drug Allergy 01-11-20 [facility] Rep[facility] (1 source) Sulfamethoxazole Drug Allergy 01-11-20 [facility] Rep[facility] (1 source) Sulfonamides (Antibiotic) Drug allergy (disorder) 01-11-20 [facility] (1 source) traMADol Drug Allergy 01-11-20 [facility] (1 source) valdecoxib Drug Allergy 01-11-20 [facility] (1 source) NSAIDS (Non-Steroidal Anti-Inflamma Drug allergy (disorder) 01-11-20 [facility] Rep[facility] (1 source) sulfametrole Drug allergy (disorder) 01-11-20 [facility] Repository Medications Current Medications Medication Drug Class(es) Dates Sig (Normalized) Sig (Original) albuterol (11 sources) beta2-Adrenergic Agonist Start: 03-20-2017 take 1-2 puff(s) by inhalation once daily as needed albuterol sulfate (PROAIR HFA INHL) Inhale 1-2 puffs daily as needed. 0 03/20/2017 Active Start: 03-20-2017 take 1-2 puff(s) by inhalation once daily as needed albuterol sulfate (PROAIR HFA INHL) Inhale 1-2 puffs daily as needed. 03/20/2017 Active amoxicillin 500 mg oral tablet (2 sources) Penicillin-class Antibacterial Start: 10-07-2023 End: 10-14-2023 take 1 tablet by mouth twice daily Amoxicillin 500 mg tablet Indications: Dysuria Take 1 tablet by mouth two times a day for 7 days. 14 tablet 0 10/07/2023 10/14/2023 Active Blood-Glucose Meter monitoring kit (2 sources) Start: 05-14-2024 End: 05-15-2024 Blood-Glucose Meter monitoring kit Indications: Type 2 diabetes mellitus without complication, without long-term current use of insulin ([facility]) Glucose Meter of Choice - Kit - Dx: Type 2 DM - Controlled E11.9 Check sugars 1 time daily 1 Each 05/14/2024 05/15/2024 Active cephalexin 500 mg oral capsule (20 sources) Cephalosporin Antibacterial Start: 11-09-2024 End: 11-16-2024 take 1 capsule by mouth three times daily cephALEXin (KEFLEX) 500 mg capsule Indications: Urinary tract infection with hematuria, site unspecified Take 1 capsule by mouth three times a day for 7 days. 21 capsule 11/09/2024 11/16/2024 Active Start: 07-13-2024 End: 07-18-2024 take 1 tablet by mouth every eight hours Cephalexin 500 mg tablet Discontinued 500 mg PO Q8H 15 5 0 July 13, 2024 12:00am July 17, 2024 12:00am July 18, 2024 12:08am Start: 08-29-2023 End: 09-05-2023 take 1 capsule by mouth twice daily cephALEXin (KEFLEX) 500 mg capsule Take 1 capsule by mouth two times a day for 7 days. 14 capsule 0 08/29/2023 09/05/2023 Active Start: 07-29-2023 End: 08-03-2023 take 1 capsule by mouth three times daily Cephalexin 500 mg capsule Discontinued 500 mg PO THREE TIMES A DAY 15 5 0 July 29, 2023 12:00am August 02, 2023 12:00am August 03, 2023 12:05am Start: 11-15-2022 End: 11-22-2022 take 1 capsule by mouth twice daily cephALEXin (KEFLEX) 500 mg capsule Take 1 capsule by mouth twice daily for 7 days. 14 capsule 0 11/15/2022 11/22/2022 Active Start: 10-28-2022 End: 11-04-2022 take 1 capsule by mouth twice daily cephALEXin (KEFLEX) 500 mg capsule Indications: Burning with urination Take 1 capsule by mouth twice daily for 7 days. 14 capsule 0 10/28/2022 11/04/2022 Active Start: 04-05-2022 End: 04-12-2022 take 1 capsule by mouth twice daily cephALEXin (KEFLEX) 500 mg capsule Take 1 capsule by mouth twice daily for 7 days. 14 capsule 0 04/05/2022 04/12/2022 Active Start: 12-24-2019 End: 12-31-2019 take 1 capsule by mouth three times daily cephALEXin (KEFLEX) 500 mg capsule Indications: Recurrent UTI (urinary tract infection) Take 1 capsule by mouth three times daily for 7 days. 21 capsule 12/24/2019 12/31/2019 Start: 12-03-2019 End: 12-10-2019 take 1 capsule by mouth three times daily cephALEXin (KEFLEX) 500 mg capsule Indications: Dysuria Take 1 capsule by mouth three times daily for 7 days. 21 capsule 12/03/2019 12/10/2019 Start: 04-07-2018 End: 04-17-2018 take 1 capsule by mouth every twelve hours Cephalexin 500 mg capsule Discontinued 500 mg PO Q12H 20 10 0 April 07, 2018 1:00am April 16, 2018 1:00am April 17, 2018 1:09am Start: 03-20-2017 End: 04-17-2018 take 1 capsule by mouth three times daily Cephalexin 500 MG capsule Discontinued 500 mg PO THREE TIMES A DAY 12 March 20, 2017 1:00am April 07, 2018 5:17pm Comment on above: Take 1 capsule by mo [facility] twice daily for 7 days. ciprofloxacin 500 mg oral tablet (20 sources) Quinolone Antimicrobial Start: 11-24-19 End: 12-04-19 take 1 tablet by mouth twice daily ciprofloxacin HCl (CIPRO) 500 mg tablet Indications: Dysuria , Acute cough Take 1 tablet by mouth two times a day for 10 days. 20 tablet 11/24/2023 12/04/2023 Active Start: 06-24-2019 End: 12-31-2019 ciprofloxacin HCl (CIPRO) 50 0 mg tablet Ciprofloxacin Ciprofloxacin Active 500 MG TWICE A DAY June 24, 2019 1:22pm 06-24-2019 [facility] ([id number]) 06/24/2019 12/31/2019 Discontinued (Course of therapy completed) Start: 06-24-2019 End: 10-13-2022 take 1 tablet by mouth twice daily Ciprofloxacin Hcl 500 MG tablet Discontinued 500 mg PO TWICE A DAY 14 June 24, 2019 12:00am October 13, 2022 4:56pm docusate sodium 100 mg oral capsule (20 sources) Start: 01-21-2023 take 2 capsules by m outh at bedtime Start: 01-21-2023 docusate sodium (STOOL SOFTENER ORAL) Take by mouth as needed. OTC Active docusate sodium (STOOL SOFTENER ORAL) Take by mouth as needed. OTC 0 Active Comment on above: Take by mouth as nee ded. OTC enteric contrast (will be provided with radiology test) (1 source) Start: 08-12-2022 End: 08-13-2022 enteric contrast (will be provided with radiology test) Indications: Renal carcinoma, right (HCC) , Other cirrhosis of liver (HCC) For CT ABD/PEL W IVCON Routine order Administer, As Directed One Time Only, via Oral, Rectal, both Oral and Rectal, Enteric Tube, Stoma or Indwelling Catheter, Enteric Contrast as designated per enteric contrast guidelines 1 Each 0 08/12/2022 08/13/2022 Active Comment on above: For CT ABD/PEL W IVC ON Routine order Administer, As Directed One Time Only, via Oral, Rectal, both Oral and Rectal, Enteric Tube, Stoma or Indwelling Catheter, Enteric Contrast as designated per enteric contrast guidelines famotidine 10 mg oral tablet (20 sources) Histamine-2 Receptor Antagonist Start: 07-23-2016 take 1 tablet by mouth once daily famotidine (PEPCID) 10 MG tablet Take 10 mg by mouth daily. 07/23/2016 Active Start: 06-26-2016 End: 10-13-2022 take 1 tablet by mouth at bedtime Famotidine 20 MG tablet Discontinued 20 mg PO AT BEDTIME 30 0 July 23, 2016 11:38am October 13, 2022 4:56pm Start: 06-26-2016 End: 10-13-2022 glipiZIDE er 10 mg 24 hr extended release oral tablet (20 sources) Sulfonylurea Start: 02-17-2024 End: 04-16-2025 take 1 tablet by mouth twice daily Start: 10-10-2019 End: 02-05-2021 take 2 tablets by mouth before breakfast, then take 1 tablet by mouth before dinner glipiZIDE (GLUCOTROL) 5 mg tablet Indications: Type 2 diabetes mellitus without complication, without long-term current use of insulin (HCC) Take 2 tablets by mouth before breakfast and one tablet by mouth before dinner 270 tablet 1 10/10/2019 03/10/2020 Discontinued Start: 07-23-2018 End: 04-18-2024 Glipizide 5 MG tablet Discon tinued 5 mg PO TWICE A DAY July 23, 2018 12:00am April 18, 2024 2:50pm 10 IN THE AM, 5 MG AT NIGHT Start: 07-23-2018 Glipizide Acti ve 10 MG PO DAILY July 23, 2018 12:00am 10 IN THE AM, 5 MG AT NIGHT Start: 11-16-2017 End: 02-17-2024 glipiZIDE (GLUCOTROL) 5 MG t ablet 5 mg 2 tabs in AM. 1 tab in afternoon . 1 11/16/2017 Active Comment on above: Take 1 tablets by mo uth before breakfast and one tablet by mouth before dinner [employer] Glucose Monitor (2 sources) Start: 11-16-2017 [facility] GLUCOSE MONITOR Misc Use to check blood sugars once daily and as needed 0 11/16/2017 Active [facility] GLUCOSE MONITOR Misc (9 sources) Start: 11-16-2017 [facility] GLUCOSE MONITOR Misc Use to check blood sugars once daily and as needed 0 11/16/2017 Active hydrocortisone 25 mg/ml topical cream (20 sources) Corticosteroid Start: 02-04-2023 Start: 04-07-2021 hydrocortisone (ANUSOL-HC) 2.5 % rectal cream by RECTAL route twice daily. 28 g 04/07/2021 Active Comment on above: by RECTAL route twic e daily. isopropyl alcohol 0.7 ml/ml medicated pad (20 sources) Start: 01-15-20 alcohol swabs (ALCOHOL PREP PADS) Apply 1 application to affected area once daily. 200 Each 11 01/15/2020 Active Comment on above: Apply 1 application to affected area once daily. iv contrast (will be provided with radiology test) (1 source) Start: 08-13-19 End: 08-14-19 iv contrast (will be provided with radiology test) Indications: Renal carcinoma, right (HCC) , Other cirrhosis of liver (HCC) CT ABD/PEL -Inject, intravenously, once for 1 dose.No IV access, insert saline lock prior to the beginning of sedation, infusion, injection of imaging exam. Discontinue saline lock post exam. If Pt. has a central line or IVAD, may access for administration according to line specific nursing protocol. Once exam is complete flush line and de-access according to line specific nursing protocol in the CT contrast administration guidelines link. 1 Each 0 08/12/2022 08/13/2022 Active Comment on above: CT ABD/PEL -Inject, intravenously, once for 1 dose.No IV access, insert saline lock prior to the beginning of sedation, infusion, injection of imaging exam. Discontinue saline lock post exam. If Pt. has a central line or IVAD, may access for administration according to line specific nursing protocol. Once exam is complete flush line and de-access according to line specific nursing protocol in the CT contrast administration guidelines link. methocarbamol 500 mg oral tablet (16 sources) Muscle Relaxant Start: 05-31-19 take 1 tablet by mouth four times daily as needed for pain Multivitamin (Daily Multi-Vitamin) tablet (20 sources) Start: 01-22-20 Start: 01-21-2023 Multivitamin ( Daily Multi-Vitamin) tablet Active 1 {tbl} PO DAILY January 21, 2023 1:00am Start: 01-21-2023 take 1 tablet by sabrina th once daily Multivitamin (Daily Multi-Vitamin) tablet Active 1 TABLET PO DAILY January 21, 2023 1:00am Start: 01-21-2023 take 1 tablet by sabrina th once daily Multivitamin (Daily Multi-Vitamin) tablet Active 1 TABLET PO DAILY January 21, 2023 12:00am Multivitamin preparation (20 sources) multivitamin (MU LTIPLE VITAMINS ORAL) Take by mouth. Active multivitamin (MU LTIPLE VITAMINS ORAL) Take by mouth. 0 Active Comment on above: Take by mouth. ondansetron 4 mg disintegrating oral tablet (20 sources) Serotonin-3 Receptor Antagonist Start: 05-14-2024 take 1 tablet by mouth every eight hours as needed for nausea Start: 10-21-2023 End: 11-20-2023 take 1 tablet by mouth every eight hours as needed for nausea and nausea ondansetron orally disintegrating (ZOFRAN ODT) 4 mg disintegrating tablet Indications: Nausea Take 1 tablet by mouth every 8 hours as needed for nausea/vomiting. 30 tablet 10/21/2023 11/20/2023 Active Start: 05-22-2021 End: 08-10-2022 take 1 tablet by mouth every eight hours as needed for nausea and nausea ondansetron orally disintegrating (ZOFRAN ODT) 4 mg disintegrating tablet Indications: Nausea Take 1 tablet by mouth every 8 hours as needed for nausea/vomiting. 18 tablet 1 05/22/2021 08/10/2022 Discontinued Comment on above: Take 1 tablet by sabrina every 8 hours as needed for nausea/vomiting. pantoprazole 40 mg delayed release oral tablet (20 sources) Proton Pump Inhibitor Start: 05-17-2024 take 1 tablet by mouth twice daily Start: 05-17-2024 End: 09-26-2024 take 1 tablet by mouth every twelve hours pantop[address] (PROTONIX) 40 mg tablet Indications: Gastroesophageal reflux disease without esophagitis Take 1 tablet by mouth every 12 hours. 60 tablet 2 09/26/2024 Active Start: 03-13-2019 End: 04-14-2020 take 1 tablet by mouth once daily before breakfast pantoprazole DR (PROTONIX) 20 mg tablet Indications: GERD without esophagitis Take 1 tablet by mouth daily before breakfast. Take on empty stomach, 1/2 hr before meal. 90 tablet 1 03/13/2019 04/14/2020 Discontinued (Lack of Efficacy) pioglitazone 15 mg oral tablet (16 sources) Peroxisome Proliferator Receptor alpha Agonist, Peroxisome Proliferator Receptor gamma Agonist, Thiazolidinedione Start: 08-31-2024 take 1 tablet by mouth once daily pioglitazone (ACTOS) 15 mg tablet Take 1 tablet by mouth once daily. 30 tablet 5 08/31/2024 Active polyethylene glycol 3350 910080 mg / potassium chloride 2970 mg / sodium bicarbonate 6740 mg / sodium chloride 5860 mg / sodium sulfate 92308 mg powder for oral solution (1 source) Osmotic Laxative Start: 09-26-2024 End: 09-26-2024 peg 3350-Electrolytes (GOLYTELY) 236-22.74-6.74 -5.86 gram suspension Indications: Encounter for screening colonoscopy Take 4,000 mL by mouth one time only for 1 dose. Refer to printed prep instructions from your provider. 4000 mL 09/26/2024 09/26/2024 Active predniSONE 20 mg oral tablet (20 sources) Start: 01-21-2023 End: 01-26-2023 take 2 tablets by mouth once daily predniSONE (DELTASONE) 20 mg tablet Indications: Acute right-sided low back pain without sciatica Take 2 tablets by mouth once daily for 5 days. 10 tablet 0 01/21/2023 01/26/2023 Active Start: 03-20-2017 End: 06-29-2018 Prednisone 10 MG tablet Disc ontinued 1 {tbl} PO DAILY 12 March 20, 2017 1:00am June 29, 2018 12:45pm Comment on above: Take 2 tablets by [facility] once daily for 5 days. traMADol hydrochloride 50 mg oral tablet (16 sources) Opioid Agonist Start: 05-30-2024 take 1 tablet by mouth every six hours as needed for pain warfarin sodium 5 mg oral tablet (20 sources) Vitamin K Antagonist Start: 05-15-2024 Start: 01-14-2023 Warfarin Activ e 2.5 MG PO TUTHSA January 14, 2023 1:00am Start: 01-15-2022 End: 06-12-2024 Warfarin 5 mg tablet Discont inued 2.5 mg PO TUTHSA January 14, 2023 1:00am January 27, 2024 3:11pm Please contact the information source for Protocol details. Start: 03-29-2019 End: 01-27-2024 Warfarin 5 mg tablet Discont inued 2.5 mg PO TUTHSA Protocol: Adjustment Start Date: 11/03/23INR Value: 2.5INR Date: 11/03/23Recheck Date: 12/03/23 Condition: Tuesday Dose/Route: 5 mg Instructions: 1 x 5 mg tablet Condition: Tuesday Dose/Route: 2.5 mg Instructions: 1 x 2.5 mg tablet Condition: Tuesday Dose/Route: 2.5 mg Instructions: 1 x 2.5 mg tablet Condition: Tuesday Dose/Route: 2.5 mg Instructions: 1 x 2.5 mg tablet Condition: Dose/Route: 2.5 mg Instructions: 1 x 2.5 mg tablet Condition: Tuesday Dose/Route: 5 mg Instructions: 1 x 5 mg tablet Condition: Tuesday Dose/Route: 5 mg Instructions: 1 x 5 mg tablet January 14, 2023 1:00am January 27, 2024 3:11pm Please contact the information source for Protocol details. Start: 05-15-2018 take 1 tablet by sabrina th once daily warfarin (COUMADIN) 5 MG tablet Indications: 5mg 5 day's a week 7.5mg two days a week Take 1 (one) tablet (5 mg total) by mouth daily OR as directed Reasons: 5mg 5 day's a week 7.5mg two days a week. 45 tablet 05/15/2018 Active Start: 05-10-2017 warfarin (COUM ADELAIDE) 5 MG tablet Indications: 5mg 5 day's a week 7.5mg two days a week Take 1 (one) tablet (5 mg total) by mouth daily OR as directed. 45 tablet 05/10/2017 Active Start: 07-23-2016 End: 05-15-2024 Warfarin 2.5 mg tablet Disco ntinued 2.5 mg PO .COMPLEX Protocol: Adjustment Start Date: Tuesday05/02/24INR Value: 2.2INR Date: 05/02/24Recheck Date: 06/01/24 Condition: Tuesday Dose/Route: 5 mg Instructions: 2 x 2.5 mg tablets Condition: Tuesday Dose/Route: 2.5 mg Instructions: 1 x 2.5 mg tablet Condition: Tuesday Dose/Route: 2.5 mg Instructions: 1 x 2.5 mg tablet Condition: Tuesday Dose/Route: 2.5 mg Instructions: 1 x 2.5 mg tablet Condition: Dose/Route: 2.5 mg Instructions: 1 x 2.5 mg tablet Condition: Tuesday Dose/Route: 5 mg Instructions: 2 x 2.5 mg tablets Condition: Tuesday Dose/Route: 5 mg Instructions: 2 x 2.5 mg tablets 180 3 January 30, 2024 4:13pm May 15, 2024 8:55pm 2.5 mg orally 1 tablet (2.5 mg) on Tuesday, Tuesday, Tuesday, and ; 2 tablets together to = 5mg on Tuesday, Tuesday and Tuesday at bedtdime; dose changes often, please give extra tablets Please contact the information source for Protocol details. Start: 07-23-2016 End: 01-10-2017 take 1 tablet by mouth once daily Warfarin (Jantoven) 4 MG tablet Discontinued 4 mg PO DAILY@1700 30 0 July 23, 2016 12:00am January 10, 2017 6:59pm Start: 07-23-2016 End: 01-27-2024 take 2 tablets by mouth once daily at bedtime Warfarin 2.5 MG tablet Discontinued 5 mg PO SUMOWEFR January 10, 2017 6:59pm January 27, 2024 3:13pm [facility] Please contact the information source for Protocol details. Start: 07-23-2016 End: 05-15-2024 Start: 05-28-2015 End: 07-23-2016 take 1 tablet by mouth once daily Warfarin (Jantoven) 5 MG tablet Discontinued 5 mg PO DAILY May 28, 2015 12:00am July 23, 2016 11:37am Comment on above: 2.5 mg Mon, 5 mg all other days or as directed 2.5 mg Mon/Thurs, 5 mg all other days or as directed 2.5 mg //, 5 mg all other days or as directed Completed/Discontinued Medications Medication Drug Class(es) Dates Sig (Normalized) Sig (Original) acetaminophen 325 mg oral tablet (20 sources) Start: 06-26-2016 End: 10-17-2024 Acetaminophen 325 MG tablet Discontinued 1000 mg PO AT BEDTIME June 26, 2016 10:57pm October 17, 2024 11:43am Start: 06-26-2016 take 1000 mg by mout h at bedtime Acetaminophen Active 1000 MG PO AT BEDTIME June 26, 2016 10:57pm Start: 06-12-2015 End: 07-23-2016 take 2 tablets by mouth every six hours Acetaminophen (Tylenol) 325 MG tablet Discontinued 650 mg PO EVERY 6 HOURS 90 0 August 28, 2015 12:00am June 26, 2016 10:57pm Start: 06-12-2015 End: 07-23-2016 Acetaminophen (Tylenol) 325 MG tablet Discontinued 650 mg PO EVERY 6 HOURS NEEDED as needed for Mild Pain (scale 0-3)/T>100.7 0 0 July 02, 2016 12:00am July 23, 2016 11:34am Start: 05-28-2015 End: 06-12-2015 take 500-1000 mg by mouth every six hours as needed for pain Acetaminophen 500 MG tablet Discontinued 500 - 1000 mg PO EVERY 6 HOURS NEEDED as needed for Pain May 28, 2015 12:00am June 12, 2015 6:34am Comment on above: Take 500 mg by mouth . 2 TABLETS AT HS acetaminophen 325 mg / HYDROcodone bitartrate 5 mg oral tablet (20 sources) Opioid Agonist Start: 03-02-2015 End: 06-12-2015 Hydrocodone-Acetaminophe n 1 TABLET tablet Discontinued 1 - 2 {tbl} PO EVERY 4 HOURS NEEDED as needed for Pain 12 March 02, 2015 1:00am June 12, 2015 6:34am Start: 03-02-2015 End: 06-12-2015 Start: 03-02-2015 End: 06-12-2015 take 1 tablet by mouth every four hours as needed Hydrocodone-Acetaminophen Discontinued 1 - 2 TABLET PO EVERY 4 HOURS NEEDED March 02, 2015 1:00am June 12, 2015 6:34am atorvastatin 80 mg oral tablet (20 sources) HMG-CoA Reductase Inhibitor Start: 08-26-2016 End: 04-06-2017 take 1 tablet by mouth once daily atorvastatin (LIPITOR) 80 MG tablet Take 80 mg by mouth daily. 3 08/26/2016 04/06/2017 Discontinued Start: 07-02-2016 End: 07-23-2016 take 1 tablet by mouth once daily Atorvastatin 80 MG tablet Discontinued 80 mg PO DAILY@2200 30 0 July 02, 2016 12:00am July 23, 2016 11:38am benzonatate 100 mg oral capsule (12 sources) Non-narcotic Antitussive Start: 11-25-2022 End: 01-21-2023 take 2 capsules by mouth every eight hours as needed benzonatate (TESSALON PERLE) 100 mg capsule Take 2 capsules by mouth three times daily as needed. 30 capsule 0 11/25/2022 01/21/2023 Discontinued Comment on above: Take 2 capsules by m outh three times daily as needed. betamethasone 3 mg/ml / betamethasone acetate 3 mg/ml injectable suspension (2 sources) Corticosteroid Start: 06-12-2024 End: 06-12-2024 betamethasone acetate-betamethas one sodium phosphate 6 mg injection (CELESTONE) Start: 06-12-2024 End: 06-12-2024 6 mg, Injection - FOR ORTHO USE ONLY, ONCE, 1 dose, Starting on Tue06/12/24 at 1054, Until Tue06/12/24 at 1054 bisacodyl 5 mg delayed release oral tablet (1 source) Stimulant Laxative Start: 07-31-2020 End: 08-04-2021 Bisacodyl (DULCOLAX) 5 mg tab Indications: Alternating constipation and diarrhea , Grade II hemorrhoids , Other cirrhosis of liver (HCC) , History of colonic polyps , Blood in stool Use as directed for Miralax / Gatorade Bowel Prep Kit 4 tablet 07/31/2020 08/04/2021 Discontinued 30 ml bupivacaine hydrochloride 5 mg/ml injection (2 sources) Amide Local Anesthetic Start: 06-12-2024 End: 06-12-2024 BUPivacaine (PF) 0.5 % (5 mg/mL) 4 mL injection Start: 06-12-2024 End: 06-12-2024 4 mL, Injection - FOR ORTHO USE ONLY, ONCE, 1 dose, Starting on Tue06/12/24 at 1054, Until Tue06/12/24 at 1054 Diltiazem 2% / Lidocaine 5% Ointment (Compound) (13 sources) Start: 10-15-2022 End: 02-04-2023 Diltiazem 2% / Lidocaine 5% Ointment (Compound) Discontinued 0 .Route 1 October 15, 2022 12:00am February 04, 2023 4:55pm As directed Start: 10-15-2022 End: 02-04-2023 Diltiazem 2% / Lidocaine 5% Ointment (Compound) Discontinued 0 .Route 1 October 14, 2022 11:00pm February 04, 2023 3:55pm As directed Start: 10-15-2022 Diltiazem 2% / Lidocaine 5% Ointment (Compound) Active 0 .Route 1 October 14, 2022 11:00pm As directed Start: 10-15-2022 Diltiazem 2% / Lidocaine 5% Ointment (Compound) Active 0 .ROUTE October 14, 2022 11:00pm As directed Start: 10-15-2022 Diltiazem 2% / Lidocaine 5% Ointment (Compound) Active 0 .ROUTE 1 October 15, 2022 12:00am As directed Diltiazem 2% / Lidocaine 5% Ointment (Compound) ointment (13 sources) Start: 10-15-2022 End: 02-04-2023 Diltiazem 2% / Lidocaine 5% Ointment (Compound) ointment Discontinued 0 .Route 1 0 October 15, 2022 12:00am February 04, 2023 4:55pm Rectal pain Other specified diseases of anus and rectum rectal pain As directed Start: 10-15-2022 End: 02-04-2023 Diltiazem 2% / Lidocaine 5% Ointment (Compound) ointment Discontinued 0 .Route 1 October 15, 2022 12:00am February 04, 2023 4:55pm As directed docusate sodium 50 mg / sennosides, care home 8.6 mg oral tablet (20 sources) Start: 06-12-2015 End: 12-18-2015 take 1 tablet by mouth twice daily Sennosides-Docusate Sodium (Stool Softener-Stimulant Laxat) 1 TABLET tablet Discontinued 2 {tbl} PO TWICE A DAY 45 0 August 28, 2015 12:00am December 18, 2015 2:42pm Start: 06-12-2015 End: 12-18-2015 empagliflozin 10 mg oral tablet (2 sources) Sodium-Glucose Cotransporter 2 Inhibitor Start: 08-24-2024 End: 08-31-2024 take 1 tablet by mouth once daily at breakfast empagliflozin (JARDIANCE) 10 mg tablet Indications: Type 2 diabetes mellitus without complication, without long-term current use of insulin (HCC) Take 1 tablet by mouth daily with breakfast. 30 tablet 5 08/24/2024 08/31/2024 Discontinued escitalopram 10 mg oral tablet (3 sources) Serotonin Reuptake Inhibitor Start: 08-26-2016 End: 04-06-2017 take 1 tablet by mouth once escitalopram oxalate (LEXAPRO) 10 MG tablet Take 10 mg by mouth nightly. 3 08/26/2016 04/06/2017 Discontinued 1 ml evolocumab 140 mg/ml auto-injector (3 sources) PCSK9 Inhibitor Start: 08-23-2019 End: 05-23-2020 inject 140 mg by subcutaneous injection every other week evolocumab 140 mg/mL subcutaneous pen injector (REPATHA SURECLICK) Inject subcutaneously every 2 weeks. 08/23/2019 05/23/2020 Discontinued Start: 08-23-2019 evolocumab (Re patha SureClick) 140 mg/mL Pen Inject 1 Pen Needle under the skin every 14 (fourteen) days . 2 pen 11 08/23/2019 Active Fish Oil-[place]-3 Fatty Acids (FISH OIL) 340-1,000 mg cap (2 sources) End: 05-23-2020 take 1 capsule by mouth once daily Fish Oil-[place]-3 Fatty Acids (FISH OIL) 340-1,000 mg cap Take 1 capsule by mouth once daily. 05/23/2020 Discontinued Gatorade Sports Drink (1 source) Start: 07-31-2020 End: 08-04-2021 Gatorade Sports Drink Indications: Alternating constipation and diarrhea , Grade II hemorrhoids , Other cirrhosis of liver (HCC) , History of colonic polyps , Blood in stool Use as directed for Miralax / Gatorade Bowel Prep Kit 64 oz 07/31/2020 08/04/2021 Discontinued hydroCHLOROthiazide 25 mg oral tablet (20 sources) Thiazide Diuretic Start: 07-23-2016 End: 03-18-2017 take 6.25 mg by mouth once daily Hydrochlorothiazide 25 MG tablet Discontinued 6.25 mg PO DAILY 0 July 23, 2016 12:00am March 18, 2017 11:18am Start: 07-23-2016 End: 03-20-2017 Hydrochlorothiazide 25 MG ta blet Discontinued 12.5 mg PO DAILY March 18, 2017 11:18am March 20, 2017 12:15pm Start: 07-23-2016 End: 03-20-2017 Start: 07-23-2016 End: 03-18-2017 take 6.25 mg by mouth once daily Hydrochlorothiazide Discontinued 6.25 MG PO DAILY July 23, 2016 12:00am March 18, 2017 11:18am hydroCHLOROthiazide 12.5 mg / losartan potassium 50 mg oral tablet (20 sources) Thiazide Diuretic, Angiotensin 2 Receptor Zandra Start: 01-14-2023 End: 01-15-2023 Start: 01-14-2023 End: 01-15-2023 take 1 tablet by mouth once daily Losartan-Hydrochlorothiazide Discontinue d 1 TABLET PO DAILY January 14, 2023 1:00am January 15, 2023 1:21pm Start: 03-29-2019 End: 01-21-2023 Losartan-Hydrochlorothiazide 50-12.5 mg tablet Discontinued 1 {tbl} PO DAILY January 14, 2023 1:00am January 15, 2023 1:21pm Start: 05-31-2017 End: 08-02-2018 take 0.5 tablet by mouth once daily losartan-hydrochlorothiazide (HYZAAR) 50-12.5 mg per tablet Take 0.5 (one-half) tablet by mouth daily . 15 tablet 11 08/02/2018 Active Start: 05-03-2017 take 1 tablet by sabrina th once daily losartan-hydrochlorothiazide (HYZAAR) 50-12.5 mg per tablet Take 1 tablet by mouth daily. 05/03/2017 Active Start: 05-28-2015 End: 04-06-2017 Losartan/Hydrochlorothiazide (Hyzaar 50-12.5 Tablet) 1 TAB tablet Discontinued 0.5 {tbl} PO DAILY May 28, 2015 12:00am July 23, 2016 11:37am Start: 05-28-2015 End: 07-23-2016 Comment on above: Take 1 tablet by sabrina th once daily. Take 0.5 tablets by mouth once daily. ibuprofen 800 mg oral tablet (3 sources) Nonsteroidal Anti-inflammatory Drug End: 8 take 1 tablet by mouth once, then take 1 tablet by mouth ibuprofen (ADVIL,MOTRIN) 800 MG tablet Take 800 mg by mouth nightly. 04/06/2017 Discontinued 3 ml insulin aspart, human 100 unt/ml pen injector (20 sources) Insulin Analog Start: 7 End: 7 Insulin Aspart U-100 (Novolog Flexpen U-100 Insulin) 100 UNITS/ML Flexpen Discontinued 0 U SC BEFORE MEALS AND AT BEDTIME Protocol: - Use for Total Daily Dose of Insulin 15-27 units- Thin, elderly, renal patientsLOW DOSING ALGORITHM Condition: 150-224 mg/dl = 1 unit Condition: 225-299 mg/dl = 2 units Condition: 300-374 mg/dl = 3 units Condition: 375-499 mg/dl = 4 units Condition: Greater than 449 call physician June 30, 2016 1:22pm July 23, 2016 11:37am Please contact the information source for Protocol details. Start: 06-30-2016 End: 07-23-2016 Insulin Aspart U-100 (Novolo g Flexpen U-100 Insulin) 100 UNITS/ML Flexpen Discontinued 0 U SC BEFORE MEALS AND AT BEDTIME 0 June 30, 2016 12:00am June 30, 2016 1:22pm Start: 06-30-2016 End: 07-23-2016 10 ml lidocaine hydrochloride 10 mg/ml injection (20 sources) Antiarrhythmic, Amide Local Anesthetic Start: 06-12-2024 End: 06-12-2024 lidocaine (PF) 10 mg/mL (1 %) 4 mL injection (XYLOCAINE) Start: 06-12-2024 End: 06-12-2024 4 mL, Injection - FOR ORTHO USE ONLY, ONCE, 1 dose, Starting on Tue06/12/24 at 1054, Until Tue06/12/24 at 1054 Start: 07-23-2016 End: 07-23-2016 Lidocaine 1 PATCH patch Discontinued 1 NMA TOPICAL DAILY 0 July 23, 2016 12:00am July 23, 2016 12:11pm Start: 07-23-2016 End: 07-23-2016 Start: 07-23-2016 End: 07-23-2016 apply 1 dose topically once daily Lidocaine Discontinued 1 PATCH TOPICAL DAILY July 23, 2016 12:00am July 23, 2016 12:11pm loratadine 10 mg oral tablet (20 sources) Start: 05-28-2015 End: 04-06-2017 take 1 tablet by mouth at bedtime Loratadine (Allergy Relief (Loratadine)) 10 MG tablet Discontinued 10 mg PO AT BEDTIME 30 July 23, 2016 12:09pm July 23, 2016 12:10pm Comment on above: Take 10 mg by mouth once daily. losartan potassium 25 mg oral tablet (20 sources) Angiotensin 2 Receptor Zandra Start: 01-15-2023 take 0.5 tablet by mouth once losartan (COZAAR) 25 mg tablet Take 0.5 tablets by mouth every afternoon. 01/15/2023 Active Start: 07-23-2016 End: 05-21-2024 Losartan 25 mg tablet Discon tinued 12.5 mg PO DAILY 45 3 August 15, 2023 12:01pm May 21, 2024 3:04pm Hold for SBP less than 130 mmHg Start: 07-23-2016 End: 01-10-2017 take 1 tablet by mouth once daily Losartan 25 MG tablet Discontinued 25 mg PO DAILY 30 0 July 23, 2016 12:00am January 10, 2017 6:59pm Start: 07-23-2016 End: 05-21-2024 Losartan 25 MG tablet Discon tinued 12.5 mg PO DAILY January 10, 2017 6:59pm January 17, 2023 12:44pm Start: 07-23-2016 End: 05-21-2024 Start: 07-23-2016 End: 05-21-2024 Comment on above: Take 0.5 tablets by mouth every afternoon. metoprolol tartrate 50 mg oral tablet (20 sources) beta-Adrenergic Zandra Start: End: take 1 tablet by mouth twice daily Metoprolol Tartrate 50 mg tablet Discontinued 50 mg PO TWICE A DAY 180 April 25, 2023 3:10pm February 24, 2024 9:07am Start: 02-07-2023 End: 04-08-2023 take 1 tablet by mouth twice daily Metoprolol Tartrate 25 mg tablet Discontinued 25 mg PO TWICE A DAY 60 February 07, 2023 1:00am April 08, 2023 12:57pm Start: 02-07-2023 End: 04-08-2023 take 2 tablets by mouth twice daily Metoprolol Tartrate 25 mg tablet Discontinued 50 mg PO TWICE A DAY 60 April 08, 2023 12:57pm April 08, 2023 12:58pm Start: 02-07-2023 End: 04-08-2023 nitrofurantoin, macrocrystals 25 mg / nitrofurantoin, monohydrate 75 mg oral capsule (5 sources) Nitrofuran Antibacterial Start: 11-24-2023 End: 11-24-2023 take 1 capsule by mouth twice daily at mealtime nitrofurantoin monohydrate and macrocrystal (MACROBID) 100 mg capsule Indications: Dysuria Take 1 capsule by mouth two times a day with meals for 5 days. 10 capsule 11/24/2023 11/24/2023 Discontinued (Erroneous entry) Start: 08-24-2023 End: 08-29-2023 take 1 capsule by mouth twice daily nitrofurantoin monohydrate and macrocrystal (MACROBID) 100 mg capsule Indications: Urgency of urination Take 1 capsule by mouth two times a day for 5 days. 10 capsule 0 08/24/2023 08/29/2023 Active Start: 07-12-2022 End: 07-17-2022 take 1 capsule by mouth twice daily nitrofurantoin monohydrate and macrocrystal (MACROBID) 100 mg capsule Indications: Recurrent UTI (urinary tract infection) Take 1 capsule by mouth twice daily for 5 days. 10 capsule 0 07/12/2022 07/17/2022 Active Comment on above: Take 1 capsule by [facility] twice daily for 5 days. oseltamivir 75 mg oral capsule (20 sources) Neuraminidase Inhibitor Start: 03-20-19 18 End: 06-30-19 19 take 1 capsule by mouth twice daily Oseltamivir 75 MG capsule Discontinued 75 mg PO TWICE A DAY 5 0 March 20, 2017 1:00am June 29, 2018 12:44pm oxyCODONE hydrochloride 5 mg oral tablet (20 sources) Opioid Agonist Start: 07-01-19 17 End: 07-24-19 17 take 1 tablet by mouth every four hours as needed for pain Oxycodone 5 MG tablet Discontinued 5 mg PO EVERY 4 HOURS NEEDED as needed for Moderate Pain (pain scale 4-5) 20 0 June 30, 2016 12:00am July 23, 2016 11:37am Start: 06-12-2015 End: 08-28-2015 take 5-10 mg by mouth every four hours as needed for pain Oxycodone 5 MG tablet Discontinued 5 - 10 mg PO EVERY 4 HOURS NEEDED as needed for Pain 90 0 June 12, 2015 12:00am August 28, 2015 9:29am Start: 06-12-2015 End: 08-28-2015 take 1 tablet by mouth twice daily Oxycodone (Oxycontin) 10 MG tablet Discontinued 10 mg PO TWICE A DAY 4 0 June 12, 2015 12:00am August 28, 2015 9:29am phenazopyridine hydrochlorid e 200 mg oral tablet (20 sources) Start: 06-24-2019 End: 12-31-2019 phenazopyridine (PYRIDIUM, GERIDIUM) 200 mg tablet Phenazopyridine Phenazopyridine Hcl Active 200 MG TWICE DAILY NEEDED June 24, 2019 1:22pm 06-24-2019 [facility] ([id number]) 06/24/2019 12/31/2019 Discontinued (Course of therapy completed) Start: 06-24-2019 End: 02-04-2023 take 1 tablet by mouth twice daily as needed for pain Phenazopyridine 200 MG tablet Discontinued 200 mg PO TWICE DAILY NEEDED as needed for Pain 10 0 June 24, 2019 12:00am February 04, 2023 4:54pm On Hold: NO LONGER TAKING polyethylene glycol 3350 30712 mg powder for oral solution (1 source) Osmotic Laxative Start: 07-31-2020 End: 08-04-2021 polyethylene glycol 3350 (MIRALAX, GLYCOLAX) 17 gram/dose powder Indications: Alternating constipation and diarrhea , Grade II hemorrhoids , Other cirrhosis of liver (HCC) , History of colonic polyps , Blood in stool Use as directed for Miralax / Gatorade Bowel Prep Kit 238 g 07/31/2020 08/04/2021 Discontinued polysaccharide iron complex 150 mg oral capsule (20 sources) Start: 06-30-2016 End: 07-02-2016 Polysaccharide Iron Complex (Ferrex 150) 150 MG capsule Discontinued 150 mg PO DAILY WITH MEALS 0 June 30, 2016 12:00am July 02, 2016 10:20am promethazine hydrochloride 12.5 mg oral tablet (20 sources) Phenothiazine Start: 11-25-2022 End: 06-13-2024 take 1 tablet by mouth every six hours as needed for nausea and vomiting Promethazine 12.5 mg tablet Discontinued 12.5 mg PO EVERY 6 HOURS as needed for nausea and vomiting February 04, 2023 1:00am June 13, 2024 2:03pm Comment on above: Take 1 tablet by sabrina th every 6 hours as needed. rosuvastatin calcium 40 mg oral tablet (20 sources) HMG-CoA Reductase Inhibitor Start: 06-22-2024 End: 10-17-2024 take 1 tablet by mouth once daily Rosuvastatin 40 mg tablet Discontinued 40 mg PO daily 30 2 June 22, 2024 12:00am October 17, 2024 11:43am Start: 03-14-2023 End: 03-13-2024 take 1 tablet by mouth at bedtime Start: 02-04-2023 End: 03-14-2023 take 1 tablet by mouth at bedtime Rosuvastatin 10 mg tablet Discontinued 10 mg PO AT BEDTIME February 04, 2023 4:53pm March 14, 2023 6:05pm Start: 01-14-2023 End: 08-24-2024 take 2 tablets by mouth at bedtime Rosuvastatin 10 mg tablet Discontinued 20 mg PO AT BEDTIME January 21, 2023 1:00am February 04, 2023 4:57pm Start: 01-14-2023 End: 03-14-2023 Start: 08-10-2022 End: 01-21-2023 take 1 tablet by mouth once daily Rosuvastatin 10 mg tablet Discontinued 10 mg PO DAILY January 14, 2023 1:00am January 15, 2023 1:32pm Start: 08-04-2021 End: 08-10-2022 take 1 tablet by mouth once daily rosuvastatin (CRESTOR) 5 mg tablet Indications: Hyperlipidemia, mixed Take 1 tablet by mouth once daily. 90 tablet 3 08/04/2021 07/13/2022 Discontinued Comment on above: Take 1 tablet by sabrina th once daily. Take 1 tablet by sabrina th daily at bedtime. Take 20 mg by mouth once daily. sotalol hydrochloride 120 mg oral tablet (20 sources) Antiarrhythmic Start: 03-29-19 End: 01-22-20 take 1 tablet by mouth twice daily sotalol (BETAPACE) 120 mg tablet Indications: Hypertension, essential Take 1 tablet by mouth twice daily. 180 tablet 3 02/09/2022 01/21/2023 Discontinued Start: 09-21-2018 take 1 tablet by sabrina th twice daily sotalol (BETAPACE) 120 MG tablet Take 1 (one) tablet (120 mg total) by mouth 2 (two) times a day . 180 tablet 3 09/21/2018 Active Start: 05-10-2017 take 1 tablet by sabrina th twice daily sotalol (BETAPACE) 120 MG tablet Take 1 (one) tablet (120 mg total) by mouth 2 (two) times a day. 180 tablet 3 05/10/2017 Active Start: 05-10-2017 take 1 tablet by sabrina th twice daily sotalol (BETAPACE) 120 MG tablet Take 1 (one) tablet (120 mg total) by mouth 2 (two) times a day. 180 tablet 3 05/10/2017 Active Start: 07-23-2016 End: 01-15-2023 Sotalol 80 MG tablet Discont inued 120 mg PO TWICE A DAY 0 July 23, 2016 12:00am January 15, 2023 1:22pm Start: 07-23-2016 End: 01-15-2023 take 120 mg by mouth twice daily Sotalol Discontinued 120 MG PO TWICE A DAY July 23, 2016 12:00am January 15, 2023 1:22pm Start: 03-18-2016 End: 03-18-2017 take 1.5 tablets by mouth twice daily sotalol (BETAPACE) 80 MG tablet Take 1.5 tablets (120 mg total) by mouth 2 (two) times a day. 270 tablet 3 03/18/2016 03/18/2017 Active take 1 tablet by sabrina th twice daily sotalol (BETAPACE) 120 MG tablet Take 120 mg by mouth 2 (two) times a day. Active Comment on above: Take 1 tablet by sabrina th twice daily. sucralfate 1000 mg oral tablet (20 sources) Aluminum Complex Start: End: take 1 tablet by mouth three times daily before mealtime Sucralfate 1 gram Tablet Discontinued 1 g PO THREE TIMES DAILY BEFORE MEALS 90 0 May 17, 2024 12:00am June 13, 2024 2:03pm (20 sources) Start: End: Start: 07-13-2024 Start: 04-18-2024 Start: 01-21-2023 Start: 10-15-2022 End: 02-04-2023 Problems Active Problems Problem Classification Problem Date Documented Da te Episodic/Chronic Acute and unspecified renal failure (20 sources) Injury of kidney; Translations: [Acute kidney failure, unspecified] 03-18-2017 Episodic Acute cerebrovascular disease (20 sources) Cerebrovascular accident; Translations: [Cerebral infarction, unspecified] Onset: 7 10-10-2016 Chronic Comment on above: states neurologist s tated wasn't a cva. Anal and rectal conditions (20 sources) Rectal pain; Translations: [Other specified diseases of anus and rectum] 10-15-2022 Episodic Cancer of kidney and renal pelvis (20 sources) History of malignant neoplasm of retroperitoneum; Translations: [Personal history of other malignant neoplasm of kidney] 02-04-2023 Episodic Cardiac dysrhythmias (20 sources) Atrial fibrillation; Translations: [Paroxysmal atrial fibrillation] Onset: 5 10-23-2014 Chronic Cardiac dysrhythmias (20 sources) Bradycardia; Translations: [Bradycardia, unspecified] Onset: 3 01-22-2023 Episodic Chronic kidney disease (20 sources) Chronic kidney disease stage 3A ; Translations: [Stage 3a chronic kidney disease] Onset: 3 08-10-2022 Chronic Comment on above: History of kidney ca ncer and partial nephrecotmy Chronic kidney disease (1 source) Chronic kidney disease; Translations: [Stage 3a chronic kidney disease (HCC)] Onset: 3 Chronic obstructive pulmonary disease and bronchiectasis (20 sources) Bronchitis; Translations: [Bronchitis, not specified as acute or chronic] 03-18-2017 Episodic Conduction disorders (20 sources) Complete atrioventricular block; Translations: [Atrioventricular block, complete] Onset: 3 01-25-2023 Chronic Comment on above: Pacemaker placed by Dr. Otero @ [facility] 01/24/2023 [facility] Deficiency and other anemia (1 source) Iron deficiency anemia due to blood loss; Translations: [Iron deficiency anemia secondary to blood loss (chronic)] 06-08-2024 Chronic Deficiency and other anemia (2 sources) Iron deficiency anemia secondary to blood loss (chronic); Translations: [Iron deficiency anemia due to chronic blood loss] Onset: 5 Chronic Deficiency and other anemia (20 sources) Anemia; Translations: [Anemia, unspecified] Onset: 5 03-18-2017 Episodic Deficiency and other anemia (1 source) Anemia, unspecified; Translations: [Anemia, unspecified type] Onset: 5 Episodic Diabetes mellitus with complications (20 sources) Type 2 diabetes mellitus; Translations: [Type 2 diabetes mellitus with other specified complication] Onset: 5 10-23-2014 Chronic Diabetes mellitus without complication (20 sources) Diabetes mellitus; Translations: [Type 2 diabetes mellitus] Onset: 5 10-23-2014 Chronic Disorders of lipid metabolism (20 sources) Mixed hyperlipidemia; Translations: [Mixed hyperlipidemia] Onset: 3 Chronic Disorders of teeth and jaw (1 source) Jaw pain; Translations: [Jaw pain] 10-07-2023 Episodic E Codes: Natural/environment (1 source) Bitten or stung by nonvenomous insect and other nonvenomous arthropods, initial encounter; Translations: [Tick bite of right back wall of thorax, initial encounter] Onset: 5 Episodic Esophageal disorders (20 sources) Gastroesophageal reflux disease; Translations: [Gastro-esophageal reflux disease without esophagitis] Onset: 3 03-18-2017 Chronic Essential hypertension (20 sources) Hypertensive disorder; Translations: [Essential hypertension] Onset: 5 10-23-2014 Chronic Gastroduodenal ulcer (except hemorrhage) (19 sources) Ulcer of duodenum; Translations: [Duodenal ulcer, unspecified as acute or chronic, without hemorrhage or perforation] 06-13-2024 Chronic Gastrointestinal hemorrhage (1 source) Gastrointestinal hemorrhage; Translations: [Chronic or unspecified peptic ulcer, site unspecified, with hemorrhage] 06-08-2024 Chronic Hemorrhoids (20 sources) Bleeding hemorrhoids; Translations: [Unspecified hemorrhoids] 10-13-2022 Episodic Malaise and fatigue (1 source) Fatigue; Translations: [Chronic fatigue, unspecified] 10-21-2023 Chronic Nausea and vomiting (2 sources) Nausea; Translations: [Nausea] 11-25-2022 Episodic Occlusion or stenosis of precerebral arteries (20 sources) Occlusion and stenosis of bilateral carotid arteries; Translations: [Carotid artery stenosis] Onset: 7 10-10-2016 Chronic Comment on above: 90% stenosis of left w/significant collaterals, 50% stenosis of right per U/S 10/27/2020. Right ICA 20-39% stenosis 90% stenosis of left w/significant collaterals, 50% stenosis of right per U/S 10/27/2020. Right ICA 20-39% stenosisstates to have secretarial stenographer appointment 06/04/24 for this Other aftercare (20 sources) Long-term current use of anticoagulant; Translations: [USP (current) use of 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] Onset: 3 10-13-2022 Episodic Other aftercare (2 sources) Post-discharge follow-up; Translations: [Encounter for follow-up examination after completed treatment for conditions other than malignant neoplasm] 01-04-2023 Episodic Other aftercare (5 sources) imaging technologist (current) use of 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; Translations: [Long-term (current) use of 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] Onset: 5 01-15-2023 Episodic Other aftercare (1 source) Wound finding; Translations: [Encounter for other specified aftercare] 02-03-2023 Episodic Other aftercare (1 source) Encounter for other specified aftercare; Translations: [Visit for wound check] Onset: 3 Episodic Other and ill-defined heart disease (20 sources) Ventricular hypertrophy ; Translations: [Cardiomegaly] 04-18-2024 Chronic Other and ill-defined heart disease (1 source) Cardiomegaly; Translations: [Cardiomegaly] Onset: Chronic Other circulatory disease (20 sources) Orthostatic hypotension; Translations: [Orthostatic hypotension] Onset: 3 01-14-2023 Episodic Other circulatory disease (7 sources) Orthostatic hypotension; Translations: [Orthostatic hypotension] 01-15-2023 Episodic Other circulatory disease (20 sources) H/O: atrial fibrillation; Translations: [Personal history of other diseases of the circulatory system] 01-28-2023 Episodic Other connective tissue disease (1 source) Artificial knee joint present; Translations: [Presence of right artificial knee joint] 06-12-2024 Chronic Other connective tissue disease (1 source) Thickening of tendon sheath; Translations: [Other specified disorders of synovium and tendon, unspecified site] Episodic Other connective tissue disease (20 sources) Recurrent falls ; Translations: [Repeated falls] Onset: 3 01-15-2023 Episodic Other connective tissue disease (7 sources) Repeated falls; Translations: [History of fall] 01-15-2023 Episodic Other connective tissue disease (3 sources) Trochanteric bursitis of right hip; Translations: [Trochanteric bursitis, right hip] 06-08-2024 Episodic Other diseases of kidney and ureters (20 sources) Renal mass; Translations: [Other specified disorders of kidney and ureter] Onset: 0 05-18-2019 Chronic Other diseases of kidney and ureters (1 source) Other specified disorders of kidney and ureter; Translations: [Right renal mass] Onset: 0 Chronic Other gastrointestinal disorders (2 sources) Dysphagia; Translations: [Dysphagia, unspecified] 01-05-2023 Episodic Other gastrointestinal disorders (20 sources) Acute constipation; Translations: [Constipation, unspecified] 01-28-2023 Episodic Other gastrointestinal disorders (2 sources) Chronic constipation; Translations: [Other constipation] 10-07-2023 Episodic Other injuries and conditions due to external causes (20 sources) Injury of head; Translations: [Unspecified injury of head, initial encounter] 01-01-2023 Episodic Other injuries and conditions due to external causes (1 source) Unspecified injury of head, initial encounter; Translations: [Injury of head, initial encounter] Onset: 3 Episodic Other injuries and conditions due to external causes (20 sources) Closed injury of head; Translations: [Unspecified injury of head, initial encounter] 07-16-2023 Episodic Other injuries and conditions due to external causes (1 source) Injury of ribs; Translations: [Unspecified injury of thorax, initial encounter] 12-05-2020 Episodic Other injuries and conditions due to external causes (1 source) Injury of left hand; Translations: [Unspecified injury of left wrist, hand and finger(s), initial encounter] 12-05-2020 Episodic Other injuries and conditions due to external causes (1 source) Injury of right hand; Translations: [Unspecified injury of right wrist, hand and finger(s), initial encounter] 12-05-2020 Episodic Other liver diseases (20 sources) Cirrhosis of liver; Translations: [Other cirrhosis of liver] Onset: 1 05-23-2020 Chronic Other liver diseases (20 sources) Cirrhosis - non-alcoholic; Translations: [Unspecified cirrhosis of liver] 05-16-2024 Chronic Comment on above: THIS NEEDS VERIFIED: was on history from Discharge Summary from [facility] 01/25/23 Other liver diseases (2 sources) Unspecified cirrhosis of liver; Translations: [Hepatic cirrhosis, unspecified hepatic cirrhosis type, unspecified whether ascites present (HCC)] Onset: 5 Chronic Other liver diseases (1 source) Other cirrhosis of liver; Translations: [Other cirrhosis of liver (HCC)] Onset: 1 Chronic Other lower respiratory disease (1 source) Cough; Translations: [Acute cough] 11-24-2023 Episodic Other nervous system disorders (1 source) Other chronic pain; Translations: [Chronic midline low back pain without sciatica] Onset: 6 Chronic Other non-traumatic joint disorders (20 sources) Hip pain; Translations: [Pain in right hip] 01-17-2023 Episodic Other nutritional; endocrine; and metabolic disorders (20 sources) Obese class II; Translations: [Obesity, unspecified] Onset: 0 05-19-2019 Chronic Other nutritional; endocrine; and metabolic disorders (20 sources) Body mass index 30+ - obesity; Translations: [Body mass index (BMI) of 30.0 to 39.9] Onset: 0 03-18-2017 Chronic Other nutritional; endocrine; and metabolic disorders (1 source) Obesity caused by energy imbalance; Translations: [Other obesity due to excess calories] 10-21-2023 Chronic Other nutritional; endocrine; and metabolic disorders (1 source) Hypercalcemia; Translations: [Hypercalcemia] 02-17-2024 Chronic Other nutritional; endocrine; and metabolic disorders (1 source) Body mass index (BMI) 34.0-34.9, adult; Translations: [BMI 34.0-34.9,adult] Onset: 5 Chronic Other nutritional; endocrine; and metabolic disorders (1 source) Hypercalcemia; Translations: [Serum calcium elevated] Onset: 4 Chronic Other nutritional; endocrine; and metabolic disorders (1 source) Obesity, unspecified; Translations: [Obesity, unspecified] Onset: 5 Chronic Other nutritional; endocrine; and metabolic disorders (4 sources) H/O: thyroid disorder; Translations: [Personal history of other endocrine, nutritional and metabolic disease] Episodic Other screening for suspected conditions (not mental disorders or infectious disease) (1 source) Finding of thyroid gland; Translations: [Abnormal findings on diagnostic imaging of other specified body structures] 01-18-2023 Chronic Other upper respiratory infections (20 sources) Ethmoidal sinusitis; Translations: [Chronic ethmoidal sinusitis] Onset: 5 05-16-2024 Chronic Other upper respiratory infections (1 source) Upper respiratory infection; Translations: [Acute upper respiratory infection, unspecified] 11-25-2022 Episodic Otitis media and related conditions (1 source) Unspecified Eustachian tube disorder, bilateral; Translations: [Eustachian tube dysfunction, bilateral] Onset: 5 Episodic Phlebitis; thrombophlebitis and thromboembolism (20 sources) Thromboembolism of vein; Translations: [Acute embolism and thrombosis of unspecified vein] Onset: 5 10-13-2022 Episodic Pneumonia (except that caused by tuberculosis or sexually transmitted disease) (18 sources) Pneumonia; Translations: [Pneumonia, unspecified organism] 05-16-2024 Episodic Residual codes; unclassified (2 sources) Pain; Translations: [Pain, unspecified] Episodic Residual codes; unclassified (1 source) Bilateral lower limb edema; Translations: [Localized edema] 02-16-2024 Episodic Residual codes; unclassified (20 sources) Edema of lower extremity; Translations: [Localized edema] 07-20-2023 Episodic Residual codes; unclassified (12 sources) History of partial nephrectomy; Translations: [Acquired absence of kidney] 06-13-2024 Episodic Comment on above: Hx Right renal carci moma Respiratory failure; insufficiency; arrest (adult) (20 sources) Acute respiratory failure; Translations: [Acute respiratory failure with hypoxia] 03-18-2017 Episodic Septicemia (except in labor) (20 sources) Sepsis; Translations: [Sepsis, unspecified organism] 03-18-2017 Episodic Spondylosis; intervertebral disc disorders; other back problems (20 sources) Low back pain; Translations: [Lumbago] Onset: 6 07-06-2005 Episodic Superficial injury; contusion (20 sources) Contusion of right hand; Translations: [Contusion of right hand, initial encounter] Onset: 5 01-01-2023 Episodic Thyroid disorders (3 sources) Goiter; Translations: [Nontoxic goiter, unspecified] 11-19-2022 Chronic Unclassified (8 sources) Bilateral carotid artery stenosis; Translations: [Bilateral carotid artery stenosis] Onset: 7 10-10-2016 Unclassified (5 sources) 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 Onset: 5 10-18-2024 Unclassified (1 source) Acute midline low back pain without sciatica; Translations: [Acute midline low back pain without sciatica] Onset: 6 Unclassified (1 source) Obesity, Class II, BMI 35-39.9; Translations: [Obesity, Class II, BMI 35-39.9] Onset: 3 Unclassified (1 source) Chronic midline low back pain without sciatica; Translations: [Chronic midline low back pain without sciatica] Onset: 6 Past or Other Problems Problem Classification Problem Date Documented Da te Episodic/Chronic Abdominal pain (20 sources) Pain in pelvis; Translations: [Pelvic and perineal pain] Onset: 4 10-21-2023 Episodic Cancer of kidney and renal pelvis (20 sources) Malignant tumor of kidney parenchyma; Translations: [Malignant neoplasm of right kidney, except renal pelvis] Onset: 0 Resolved: 3 05-20-2019 Chronic Conditions associated with dizziness or vertigo (20 sources) Dizziness; Translations: [Dizziness and giddiness] Onset: 5 01-15-2023 Episodic E Codes: Adverse effects of medical drugs (20 sources) Adverse reaction to drug; Translations: [Adverse effect of unspecified drugs, medicaments and biological substances, initial encounter] Onset: 5 01-15-2023 Episodic E Codes: Fall (20 sources) Fall; Translations: [Unspecified fall, initial encounter] Onset: 5 01-05-2023 Episodic E Codes: Fall (1 source) Fall 06-08-2024 Gastrointestinal hemorrhage (20 sources) Acute lower gastrointestinal hemorrhage; Translations: [Gastrointestinal hemorrhage, unspecified] Onset: 5 10-13-2022 Episodic Genitourinary symptoms and ill-defined conditions (20 sources) Scalding pain on urination ; Translations: [Dysuria] Onset: 5 Episodic Influenza (20 sources) Influenza due to Influenza A virus; Translations: [Influenza due to other identified influenza virus with other respiratory manifestations] Onset: 5 03-18-2017 Episodic Malaise and fatigue (20 sources) Fatigue; Translations: [Other fatigue] Onset: 5 Episodic Nonspecific chest pain (20 sources) Chest pain; Translations: [Chest pain, unspecified] Onset: 5 08-22-2022 Episodic Other connective tissue disease (20 sources) Enthesopathy of hip region; Translations: [Other specified enthesopathies of unspecified lower limb, excluding foot] Onset: 6 07-06-2005 Episodic Other connective tissue disease (1 source) Trochanteric bursitis, right hip; Translations: [Trochanteric bursitis of right hip] Onset: 5 Episodic Other gastrointestinal disorders (1 source) Other constipation; Translations: [Chronic constipation] Onset: 4 Episodic Other non-traumatic joint disorders (7 sources) Pain in right hip; Translations: [Pain in joint, pelvic region and thigh] Onset: 5 01-17-2023 Episodic Other nutritional; endocrine; and metabolic disorders (20 sources) Obese class I; Translations: [Obesity, unspecified] Onset: 3 Resolved: 3 11-19-2022 Chronic Other screening for suspected conditions (not mental disorders or infectious disease) (20 sources) Patient encounter status; Translations: [Encounter for screening for malignant neoplasm of colon] Onset: 5 Episodic Residual codes; unclassified (20 sources) Other specified personal risk factors, not elsewhere classified; Translations: [Other specified personal history presenting hazards to health] Onset: 3 01-22-2023 Episodic Residual codes; unclassified (1 source) Illness, unspecified; Translations: [Illness, unspecified] Onset: 5 Episodic Sprains and strains (20 sources) Lumbar sprain; Translations: [Sprain of ligaments of lumbar spine, initial encounter] Onset: 6 07-06-2005 Episodic Unclassified (2 sources) Patient encounter status 09-26-2024 Urinary tract infections (20 sources) Acute cystitis; Translations: [Acute cystitis with hematuria] Onset: 4 Episodic Results Test Name Value Interpretation Reference Range Facility Prothrombin Time w/INRon INR Coag (PPP) [Relative time] 2.0 {INR} Normal [facility] Comment on above: Performed By: #### L 758.4787 ####[facility] [id number] [place], [place], [id number] PT Coag (PPP) [Time] 23.1 s High 11.7-14.9 [facility] Comment on above: Performed By: #### L 300.3900 ####[facility] [id number] [place], [address] Gastroenterology Visit Repor ton 01-10-2025 Gastroenterology Visit Report Normal [facility] CNOVon 12-27-2024 CNOV Office Visit (WOJOSE G) -------- LAISHA WALKER ([id number]) 1950 F Date Time Provider Department 12/27/24 1:45 PM [facility] CONCEPCION During your visit today, we recorded the following information about you: Temperature Pulse Respiration Blood pressure 98.4 degrees 79/minute 20/minute 132/76 Weight 88.8 kg London Concepcion MD 12/27/2024 1:52 PM Signed [facility] Subjective Laisha Walker is a 74 year old female. Patient presents with: Trauma: Tick bite on back Pt is here with a tick attached to her upper back area right side noticed this am unknown time attached no systemic symptoms brought in by her dog Pt desires prophylaxis Trauma Associated symptoms include a rash. Pertinent negatives include no chills, fatigue, fever, numbness or weakness. Review of Systems Constitutional: Negative for chills, fatigue and fever. Skin: Positive for rash and wound. Neurological: Negative for weakness and numbness. Objective BP 132/76 Pulse 79 Temp 36.9 ?C (98.4 ?F) Resp 20 Wt 88.8 kg (195 lb 12.3 oz) SpO2 97% BMI 34.13 kg/m? Physical Exam Vitals and nursing note reviewed. Constitutional: Appearance: Normal appearance. She is not ill-appearing. Skin: Findings: Rash present. Comments: Right upper back: tick attached with surrounding area of redness Neurological: Mental Status: She is alert. Numbing spray applied and tick removed with pick ups a small piece embedded in {ASSESSMENT/PLAN: 1. Tick bite of right back wall of thorax, initial encounter - ICD9: 911.4, E906.4, ICD10: S20.461A, W57.XXXA Return here as needed - MUPIROCIN 2 % TOPICAL OINTMENT - DOXYCYCLINE HYCLATE 100 MG CAPSULE London Concepcion MD History and Record Review Clinical information obtained from an independent historian. History obtained from or confirmed by: spouse. Differential Diagnoses - tick bite is more likely for the following reason(s): suggested by HANDP - unknown insect bite is less likely for the following reason(s): tick attached Disposition The patient was discharged. Procedures Allergies As of Date: 12/27/2024 Noted Allergy Reaction GABAPENTIN 11/03/2021 14 - Other: See Comments Comments: Dizziness ACCUPRIL (QUINAPRIL HCL) 07/05/2005 14 - Other: See Comments BEXTRA (VALDECOXIB) 07/05/2005 8 - GI Upset CELEBREX (CELECOXIB) 07/05/2005 8 - GI Upset Comments: CODEINE 07/05/2005 14 - Other: See Comments ENTEX LA (PHENYLEPHRINE-GUAIFENES *07/05/2005 14 - Other: See Comments GLUCOPHAGE (METFORMIN HCL) 07/05/2005 14 - Other: See Comments LIPITOR (ATORVASTATIN CALCIUM) 07/05/2005 14 - Other: See Comments LODINE (ETODOLAC) 07/05/2005 8 - GI Upset NAPROSYN (NAPROXEN) 07/05/2005 14 - Other: See Comments NSAIDS (NON-STEROIDAL ANTI-INFLAM*12/06/2019 14 - Other: See Comments PRAVACHOL (PRAVASTATIN SODIUM) 07/05/2005 14 - Other: See Comments Comments: Worsening abdominal pain SULFA (SULFONAMIDE ANTIBIOTICS) 07/08/2014 8 - GI Upset ULTRACET (TRAMADOL-ACETAMINOPHEN) 07/05/2005 14 - Other: See Comments VICODIN (HYDROCODONE-ACETAMINOPH E*07/05/2005 14 - Other: See Comments VIOXX (ROFECOXIB) 07/05/2005 14 - Other: See Comments ZOCOR (SIMVASTATIN) 07/05/2005 14 - Other: See Comments Date Reviewed: 12/27/2024 Reviewed by: Luli Dowling MA - Fully Assessed Reason for Visit: Trauma [112] Cmt: Tick bite on back Primary Visit Diagnosis:Tick bite of right back wall of thorax, initial encounter [S20.461A, W57.XXXA] Order(s):mupirocin (BACTROBAN) 2 % ointmentApply 1 application to affected area three times a day for 5 days.Disp: 30 gRfl: 0 doxycycline hyclate (VIBRAMYCIN) 100 mg capsuleTake 2 capsules by mouth one time only for 1 dose.Disp: 2 capsuleRfl: 0 Prescriptions as of 12/27/2024 - mupirocin (BACTROBAN) 2 % ointment Apply 1 application to affected area three times a day for 5 days. - doxycycline hyclate (VIBRAMYCIN) 100 mg capsule Take 2 capsules by mouth one time only for 1 dose. - fluticasone (FLONASE ALLERGY RELIEF) 50 mcg/actuation nasal spray Use 1 spray in each nostril once daily. - cetirizine (ZYRTEC) 10 mg tablet Take 1 tablet by mouth once daily. - blood sugar diagnostic (BLOOD GLUCOSE TEST) test strip Test blood sugar(s) 1` times daily. Dx: Type 2 DM - Uncontrolled E11.65 Insulin: No - glipiZIDE (GLUCOTROL XL) 10mg 24 hr tablet Take 1 tablet by mouth two times a day. - pantoprazole DR (PROTONIX) 40 mg tablet Take 1 tablet by mouth every 12 hours. - pioglitazone (ACTOS) 15 mg tablet Take 1 tablet by mouth once daily. - warfarin (COUMADIN) 2.5 mg tablet TAKE 1 TABLET BY MOUTH on Tuesday, Tuesday, Tuesday, and ; 2 tablets together to = 5mg on Tuesday, Tuesday and Tuesday at bedtdime; dose changes often, please give extra tablets - rosuvastatin (CRESTOR) 20 mg tablet Take 1 tablet by mouth once daily. - metoprolol tartrate, short acting, (more content not included)... Normal [facility] CBC panel Auto (Bld)on 12-25 Erythrocyte distribution width (RBC) [Ratio] 15.2 % High 11.5-15.0 [facility] Comment on above: Order Comment: Speci men Type: BLOOD SPECIMENOrdering Facility: [facility] Address: [address] [place], [place] [address] Performed By: #### 5 8410-2 ####[facility] LABCLIA [id number] [place] [address] [place] Hematocrit (Bld) [Volume fraction] 37.3 % Normal 36.0-46.0 [facility] Comment on above: Order Comment: Speci men Type: BLOOD SPECIMENOrdering Facility: [facility] Address: [address] [place] [address] Performed By: #### 5 8410-2 ####[facility] LABCLIA [id number] [place] [address] [place] Hemoglobin (Bld) [Mass/Vol] 11.4 g/dL Low 11.5-15.5 [facility] Comment on above: Order Comment: Speci men Type: BLOOD SPECIMENOrdering Facility: [facility] Address: [address] [place] [address] Performed By: #### 5 8410-2 ####[facility] LABCLIA [id number] [address] [place] MCH (RBC) [Entitic mass] 26.0 pg Normal 26.0-34.0 [facility] Comment on above: Order Comment: Speci men Type: BLOOD SPECIMENOrdering Facility: [facility] Address: [address] [place] [address] Performed By: #### 5 8410-2 ####[facility] LABCLIA [id number] [place] [address] [place] MCHC (RBC) [Mass/Vol] 30.6 g/dL Normal 30.5-36.0 [facility] Comment on above: Order Comment: Speci men Type: BLOOD SPECIMENOrdering Facility: [facility] Address: [address] [place] [address] Performed By: #### 5 8410-2 ####[facility] LABCLIA [id number] [address] [place] MCV (RBC) [Entitic vol] 85.0 fL Normal 80.0-100.0 [facility] Comment on above: Order Comment: Speci men Type: BLOOD SPECIMENOrdering Facility: [facility] Address: [address] [place] [address] Performed By: #### 5 8410-2 ####[facility] LABCLIA [id number] [place] [address] [place] Nucleated RBC (Bld) [#/Vol] 10*3/uL Normal <0.01 [facility] Comment on above: Order Comment: Speci men Type: BLOOD SPECIMENOrdering Facility: [facility] Address: [address] [place] [address] Performed By: #### 5 8410-2 ####[facility] LABIA [id number] [place] [address] [place] Platelet mean volume (Bld) [Entitic vol] 12.3 fL Normal 9.0-12.7 [facility] Comment on above: Order Comment: Speci men Type: BLOOD SPECIMENOrdering Facility: [facility] Address: [address] [place] [address] Performed By: #### 5 8410-2 ####[facility] LABCLIA [id number] [place] [address] [place] Platelets (Bld) [#/Vol] 263 10*3/uL Normal 150-400 [facility] Comment on above: Order Comment: Speci men Type: BLOOD SPECIMENOrdering Facility: [facility] Address: [address] [place] [address] Performed By: #### 5 8410-2 ####[facility] LABCLIA [id number] [place] [address] [place] RBC (Bld) [#/Vol] 4.39 10*6/uL Normal 3.90-5.20 [facility] Comment on above: Order Comment: Speci men Type: BLOOD SPECIMENOrdering Facility: [facility] Address: [address] [place] [address] Performed By: #### 5 8410-2 ####[facility] LABCLIA [id number] [place] [address] [place] WBC (Bld) [#/Vol] 9.16 10*3/uL Normal 3.70-11.00 [facility] Comment on above: Order Comment: Speci men Type: BLOOD SPECIMENOrdering Facility: [facility] Address: [address] [place] [address] Performed By: #### 5 8410-2 ####[facility] LABCLIA [id number] [address] [place] CNOVon 12-25-2024 CNOV Office Visit (FAMPWS ) -------- LAISHA WALKER ([id number]) 1950 F Date Time Provider Department 12/25/24 10:20 [facility] your visit today, we recorded the following information about you: Pulse Blood pressure Weight 76/minute 143/75 89 kg Mana Carreno APRN.MORTICIAN INVESTIGATOR 12/25/2024 10:26 AM Signed Chief Complaint Patient presents with: Ear Problem: JEREMY ear clogged feeling X 2 months HPI Orlandoholden Johnston Aaron is a 74 year old female who presents here today for Above Complaints.. Patient presents for sore throat and feeling of clogged ears. Past medical history, appointments, medications, allergies reviewed. Previous Medical History PAST MEDICAL HISTORY Diagnosis Date Atrial fibrillation (HCC) SEES DR. BARRERA Carotid stenosis, asymptomatic Cirrhosis (HCC) CVA (cerebral vascular accident) (HCC) post op after 2017 bilateral knee replacements - per pt was told by neurology that it was a questionable stroke Diabetes mellitus type 2 in obese 01/22/2023 DVT (deep venous thrombosis) (HCC) post op Dysthymic disorder Depression (non-psychotic) Esophageal reflux Essential hypertension, benign Goiter, unspecified Goiter Liver cirrhosis (HCC) Macular degeneration (senile) of retina, unspecified Macular degeneration Other and unspecified hyperlipidemia Renal carcinoma, right (HCC) S/P placement of cardiac pacemaker 01/25/2023 Patient underwent implantation of [place] permanent pacemaker with right atrial and right ventricular apex leads with Dr. Steele on 01/24/2023. Type 2 diabetes mellitus (HCC) Previous Surgical History PAST SURGICAL HISTORY Procedure Laterality Date ANESTH,PACEMAKER INSERTION APPENDECTOMY 1962 RUPTURED APPENDIX ARTHRP KNE CONDYLEANDPLATU MEDIALANDLAT COMPARTMENTS Bilateral 2017 CHOLECYSTECTOMY 1995 Cholecystectomy COLONOSCOPY [facility] EGD EUS 06/11/2020 benign leiomyoma GE junction, mild antral gastropathy, fatty pancreas, likely cirrhotic liver, prominent dilated portal vein NEPHRECTOMY PARTIAL Right 05/18/2019 robotic PAST SURGICAL HISTORY OF 07/15/1999 LEFT SHOULDER PAST SURGICAL HISTORY OF Left 2018 REPAIR OF LEFT KNEE FRACTURE PAST SURGICAL HISTORY OF 05/2024 duodenal procedure TOTAL ABDOMINAL HYSTERECT W/WO RMVL TUBE OVARY 1985 Hysterectomy, JERRY Family History FAMILY HISTORY Problem Relation Age of Onset Arthritis Mother Hypertension Mother Dementia Mother Heart Father [place] Hypertension Father Heart disease Father other (DEPRESSION) Sister Stroke Sister Diabetes Brother Heart Attack Brother Heart disease Brother other (DEPRESSION) Brother Hypertension Brother Cancer No Family History none Anesthesia Problems No Family History Patient Allergies ALLERGIES Allergen Reactions Gabapentin Other: See Comments Dizziness Accupril [Quinapril* Other: See Comments Bextra [Valdecoxib] GI Upset Celebrex [Celecoxib] GI Upset Codeine Other: See Comments Entex La [Phenyleph* Other: See Comments Glucophage [Metform* Other: See Comments Lipitor [Atorvastat* Other: See Comments Lodine [Etodolac] GI Upset Naprosyn [Naproxen] Other: See Comments Nsaids (Non-Steroid* Other: See Comments Pravachol [Pravasta* Other: See Comments Worsening abdominal pain Sulfa (Sulfonamide * GI Upset Ultracet [Tramadol-* Other: See Comments Vicodin [Hydrocodon* Other: See Comments Vioxx [Rofecoxib] Other: See Comments Zocor [Simvastatin] Other: See Comments Current Medications Current Outpatient Medications on File Prior to Visit Medication Sig glipiZIDE (GLUCOTROL XL) 10mg 24 hr tablet Take 1 tablet by mouth two times a day. pantoprazole DR (PROTONIX) 40 mg tablet Take 1 tablet by mouth every 12 hours. pioglitazone (ACTOS) 15 mg tablet Take 1 tablet by mouth once daily. (Patient not taking: Reported on 10/17/2024) warfarin (COUMADIN) 2.5 mg tablet TAKE 1 TABLET BY MOUTH on Tuesday, Tuesday, Tuesday, and ; 2 tablets together to = 5mg on Tuesday, Tuesday and Tuesday at bedtdime; dose changes often, please give extra tablets rosuvastatin (CRESTOR) 20 mg tablet Take 1 tablet by mouth once daily. blood sugar diagnostic (BLOOD GLUCOSE TEST) test strip Test blood sugar(s) 1` times daily. Dx: Type 2 DM - Uncontrolled E11.65 Insulin: No metoprolol tartrate, short acting, (LOPRESSOR) 50 mg tablet Take 50 mg by mouth two times a day. losartan (COZAAR) 25 mg tablet Take 0.5 tablets by mouth every afternoon. docusate sodium (STOOL SOFTENER ORAL) Take by mouth as needed. OTC Lancets lancets Test blood sugar(s) 1` times daily. Dx: Type 2 DM - Uncontrolled 65 Insulin: No hydrocortisone (ANUSOL-HC) 2.5 % rectal cream by RECTAL route twice daily. multivitamin (MULTIPLE VITAMINS ORAL) Take by mouth. alcohol swabs (ALCOHOL PREP PADS) Apply 1 application to affected area once daily. (more content not included)... Normal [facility] Comprehensive metabolic 2000 panelon 12-25-2024 Albumin [Mass/Vol] 4.1 g/dL Normal 3.9-4.9 [facility] Comment on above: Order Comment: Speci men Type: BLOOD SPECIMENOrdering Facility: [facility] Address: [address] [place] [address] Performed By: #### 2 4323-8, 86510-4 ####[facility] LABCLIA [id number] [place] [address] [place] ALP [Catalytic activity/Vol] 100 U/L Normal 34-123 [facility] Comment on above: Order Comment: Speci men Type: BLOOD SPECIMENOrdering Facility: [facility] Address: [address] [place] [address] Performed By: #### 2 4323-8, 18594-2 ####[facility] LABCLIA [id number] [place] [id number] [place] ALT [Catalytic activity/Vol] 23 U/L Normal 7-38 [facility] Comment on above: Order Comment: Speci men Type: BLOOD SPECIMENOrdering Facility: [facility] Address: [address] [place] [address] Performed By: #### 2 4323-8, 11558-2 ####[facility] LABCLIA [id number] [place] [address] [place] Anion gap [Moles/Vol] 14 mmol/L Normal 8-15 [facility] Comment on above: Order Comment: Speci men Type: BLOOD SPECIMENOrdering Facility: [facility] Address: [address] [place] [address] Performed By: #### 2 4323-8, 43021-2 ####[facility] LABCLIA [id number] [place] [address] [place] AST [Catalytic activity/Vol] 42 U/L High 13-35 [facility] Comment on above: Order Comment: Speci men Type: BLOOD SPECIMENOrdering Facility: [facility] Address: [address] [place] [address] Performed By: #### 2 4323-8, 54107-5 ####[facility] LABCLIA [id number] [place] [address] [place] Bilirubin [Mass/Vol] 0.6 mg/dL Normal 0.2-1.3 [facility] Comment on above: Order Comment: Speci men Type: BLOOD SPECIMENOrdering Facility: [facility] Address: [address] [place] [address] Performed By: #### 2 4323-8, 24580-3 ####[facility] LABCLIA [id number] [place] [address] [place] Calcium [Mass/Vol] 10.0 mg/dL Normal 8.5-10.2 [facility] Comment on above: Order Comment: Speci men Type: BLOOD SPECIMENOrdering Facility: [facility] Address: [address] [place] [address] Performed By: #### 2 4323-8, 75486-8 ####[facility] LABCLIA [id number] [place] [address] [place] Chloride [Moles/Vol] 101 mmol/L Normal 98-107 [facility] Comment on above: Order Comment: Speci men Type: BLOOD SPECIMENOrdering Facility: [facility] Address: [address] [place] [address] Performed By: #### 2 4323-8, 72771-3 ####[facility] LABCLIA [id number] [place] [address] [place] CO2 [Moles/Vol] 23 mmol/L Normal 22-30 [facility] Comment on above: Order Comment: Speci men Type: BLOOD SPECIMENOrdering Facility: [facility] Address: [address] [place] [address] Performed By: #### 2 4323-8, 55855-2 ####[facility] LABCLIA [id number] [place] [address] [place] Creatinine [Mass/Vol] 1.27 mg/dL High 0.58-0.96 [facility] Comment on above: Order Comment: Speci men Type: BLOOD SPECIMENOrdering Facility: [facility] Address: [address] [place] [address] Performed By: #### 2 4323-8, 09152-9 ####[facility] LABCLIA [id number] [place] [address] [place] eGFRcr SerPlBld CKD-EPI 2020 44 mL/min/1.73m??? Low >=60 [facility] Comment on above: Order Comment: Speci men Type: BLOOD SPECIMENOrdering Facility: [facility] Address: [address] [place] [address] Result Comment: Bhavain mated Glomerular Filtration Rate (eGFR) is calculated using the 2020 CKD-EPI creatinine equation. This equation utilizes serum creatinine, sex, and age as parameters. The creatinine assay has traceable calibration to isotope dilution-mass spectrometry. Refer to KDIGO guidelines for clinical interpretation. In patients with unstable renal function, e.g. those with acute kidney injury, the eGFR may not accurately reflect actual GFR. Performed By: #### 2 4323-8, 52177-0 ####[facility] LABCLIA [id number] [place] [address] [place] Glucose [Mass/Vol] 193 mg/dL High 74-99 [facility] Comment on above: Order Comment: Speci men Type: BLOOD SPECIMENOrdering Facility: [facility] Address: [address] [place] [address] Result Comment: The [place] Diabetes Association (ADA) provides guidance for cutoff values for fasting glucose and random glucose. The ADA defines fasting as no caloric intake for at least 8 hours. Fasting plasma glucose results between 100 to 125 mg/dL indicate increased risk for diabetes (prediabetes). Fasting plasma glucose results greater than or equal to 126 mg/dL meet the criteria for diagnosis of diabetes. In the absence of unequivocal hyperglycemia, results should be confirmed by repeat testing. In a patient with classic symptoms of hyperglycemia or hyperglycemic crisis, random plasma glucose results greater than or equal to 200 mg/dL meet the criteria for diagnosis of diabetes. Reference: Standards of Medical Care in Diabetes 2016, [place] [employer] Association. Diabetes Care. 2016.39(Suppl 1). Performed By: #### 2 4323-8, ####[facility] LABCLIA [id number] [place] [id number] [place] Potassium [Moles/Vol] 4.6 mmol/L Normal 3.7-5.1 [facility] Comment on above: Order Comment: Debbie pagan Type: BLOOD SPECIMENOrdering Facility: [facility] Address: [address] [place] [address] Performed By: #### 2 4323-8, 61587-6 ####[facility] LABCLIA [id number] [place] [address] [place] Protein [Mass/Vol] 8.0 g/dL Normal 6.3-8.0 [facility] Comment on above: Order Comment: Speci men Type: BLOOD SPECIMENOrdering Facility: [facility] Address: [address] [place] [address] Performed By: #### 2 4323-8, 37692-6 ####[facility] LABCLIA [id number] [place] [address] [place] Sodium [Moles/Vol] 138 mmol/L Normal 136-144 [facility] Comment on above: Order Comment: Speci men Type: BLOOD SPECIMENOrdering Facility: [facility] Address: [address] [place] [address] Performed By: #### 2 4323-8, 99796-7 ####[facility] LABCLIA [id number] [place] [address] [place] Urea nitrogen [Mass/Vol] 21 mg/dL Normal 7-21 [facility] Comment on above: Order Comment: Speci men Type: BLOOD SPECIMENOrdering Facility: [facility] Address: [address] [place] [address] Performed By: #### 2 4323-8, 48565-5 ####[facility] LABCLIA [id number] [place] [address] [place] HbA1c (Bld)on 12-25-2024 Average glucose Estimated from glycated hemoglobin (Bld) [Mass/Vol] 194 mg/dL Normal [facility] Comment on above: Order Comment: Speci men Type: BLOOD SPECIMENOrdering Facility: [facility] Address: [address] [place] [address] Result Comment: eAG: (Estimated average glucose) is a calculated value from HgbA1c and is sales representative meats of the average blood glucose level in the last 2-3 month period. Performed By: #### 5 5454-3 ####[facility] LABCLIA [id number] [place] [address] [place] HbA1c (Bld) [Mass fraction] 8.4 % High 4.3-5.6 [facility] Comment on above: Order Comment: Speci men Type: BLOOD SPECIMENOrdering Facility: [facility] Address: [address] [place] [address] Result Comment: Amer ican Diabetes Association guidelines indicate that patients with HgbA1c in the range 5.7-6.4% are at increased risk for development of diabetes, and intervention by lifestyle modification may be beneficial. HgbA1c greater or equal to 6.5% is considered diagnostic of diabetes. Performed By: #### 5 5454-3 ####[facility] LABCLIA [id number] [place] [address] [place] Lipid 1996 panelon 5 Cholesterol [Mass/Vol] 211 mg/dL High <200 [facility] Comment on above: Order Comment: Debbie pagan Type: BLOOD SPECIMENOrdering Facility: [facility] Address: [address] [place] [address] Result Comment: <200 mg/dL, Desirable 200-239 mg/dL, Borderline high >239 mg/dL, High Performed By: #### 2 4323-8, 09800-4 ####[facility] LABCLIA [id number] [address] [place] Cholesterol in HDL [Mass/Vol] 51 mg/dL Normal >39 [facility] Comment on above: Order Comment: Debbie pagan Type: BLOOD SPECIMENOrdering Facility: [facility] Address: [address] [place] [address] Result Comment: 40-5 9 mg/dL, Acceptable >59 mg/dL, High: Negative risk factor for coronary heart disease <40 mg/dL, Low: Positive risk factor for coronary heart disease Performed By: #### 2 4323-8, 00282-2 ####[facility] LABCLIA [id number] [address] [place] Cholesterol in LDL [Mass/Vol] 105 mg/dL High <100 [facility] Comment on above: Order Comment: Debbie pagan Type: BLOOD SPECIMENOrdering Facility: [facility] Address: [address] [place] [address] Result Comment: <100 mg/dL, Optimal 100-129 mg/dL, Near optimal/above optimal 130-159 mg/dL, Borderline high 160-189 mg/dL, High >189 mg/dL, Very high Secondary prevention optimal LDL Cholesterol levels are recommended to be <70 mg/dL LDL cholesterol is calculated using the Briceño-NIH equation. Performed By: #### 2 4323-8, 09063-3 ####[facility] LABCLIA [id number] [place] [address] [place] Cholesterol in LDL/Cholesterol in HDL [Mass ratio] 2.06 {ratio} Normal <2.54 [facility] Comment on above: Order Comment: Speci men Type: BLOOD SPECIMENOrdering Facility: [facility] Address: [address] [place] [address] Result Comment: Gem pineda: 1. National Cholesterol Education Program ATP III Guideline At-A-Glance Quick Desk Reference: National Heart, Lung, and Blood Geary. National Institutes of Health. 2001: NIH Publication No. 01-3305. 2. An International Atherosclerosis Society position paper: global recommendations for the management of dyslipidemia: executive summary, Atherosclerosis. 2014: 232(2):410-413. Performed By: #### 2 4323-8, ####[facility] LABCLIA [id number] [place] [address] [place] Cholesterol in VLDL [Mass/Vol] 55 mg/dL High <30 [facility] Comment on above: Order Comment: Debbie pagan Type: BLOOD SPECIMENOrdering Facility: [facility] Address: [address] [place] [address] Performed By: #### 2 4323-8, ####[facility] LABCLIA [id number] [place] [id number] [place] Cholesterol non HDL [Mass/Vol] 160 mg/dL High <130 [facility] Comment on above: Order Comment: Debbie ej Type: BLOOD SPECIMENOrdering Facility: [facility] Address: [address] [place] [address] Result Comment: <130 mg/dL, Optimal 130-159 mg/dL, Near optimal/above optimal 160-189 mg/dL, Borderline high 190-219 mg/dL, High >219 mg/dL, Very high Secondary prevention optimal non HDL Cholesterol levels are recommended to be <100 mg/dL Performed By: #### 2 4323-8, 11464-9 ####[facility] LABCLIA [id number] [place] [address] [place] Cholesterol.total/Jahaira sterol in HDL [Mass ratio] 4.14 {ratio} Normal <5.10 [facility] Comment on above: Order Comment: Speci men Type: BLOOD SPECIMENOrdering Facility: [facility] Address: [address] [place] [address] Performed By: #### 2 4323-8, 39439-4 ####[facility] LABCLIA [id number] [address] [place] FASTING TIME 12 hrs Normal [facility] Comment on above: Order Comment: Speci men Type: BLOOD SPECIMENOrdering Facility: [facility] Address: [address] [place] [address] Performed By: #### 2 4323-8, 08473-3 ####[facility] LABCLIA [id number] [place] [address] [place] Triglyceride [Mass/Vol] 326 mg/dL High <150 [facility] Comment on above: Order Comment: Speci men Type: BLOOD SPECIMENOrdering Facility: [facility] Address: [address] [place] [address] Result Comment: <150 mg/dL, Normal 150-199 mg/dL, Borderline high 200-499 mg/dL, High >499 mg/dL, Very high Performed By: #### 2 4323-8, 29243-1 ####[facility] LABCLIA [id number] [place] [address] [place] International normalized rat io (INR) calculationOrdered By: Kay Cavazos on 11-30-2024 INR Coag (Bld) [Relative time] 2.8 {INR} [facility] Prothrombin Time w/INRon INR Coag (PPP) [Relative time] 2.8 {INR} Normal [facility] Comment on above: Performed By: #### L 300.3900 ####[facility] [address] [place], [address] PT Coag (PPP) [Time] 30.3 s High 11.7-14.9 [facility] Comment on above: Performed By: #### L 300.3900 ####[facility] [address] [place], [address] Prothrombin timeOrdered By: Kay Cavazos on 11-30-2024 PT Coag (PPP) [Time] 30.3 s High 11.7-14.9 [facility] Echo Completeon 11-16-2024 Echo Complete Normal [facility] Echocardiogram study reportO rdered By: Hector Rodarte on 11-16-2024 Study report [facility] [address] [place] [address] Echo Complete 11/16/24 0913 MR#: [id number] Acct: [id number] Name: LAISHA WALKER Rep #:[id number] : 1950 74 From: Hector Rodarte MD Attending Dr: LORI Cho Status: REG CLI Ordering Dr: Kay Cavazos Date: 11/16/24 Location: CVS Sex: F C Admitted: Reason For Study : OTHER Procedure This was a 2D Doppler, Color Flow transthoracic echocardiogram. Exam performed in department. Left Ventricle Normal LV size. Mild concentric left ventricular hypertrophy. The left ventricular ejection fraction is 60 %. Stage 1 diastolic dysfunction. Right Ventricle Normal right ventricle. ICD or pacer leads identified within the right ventricle. Atria The left atrium is mildly enlarged. Normal right atrium. ICD or pacer leads identified within the right atrium. Mitral Valve There is Moderate focal posterior mitral annular calcification. Trivial mitral valve insufficiency. Tricuspid Valve Trivial tricuspid valve insufficiency. Unable to estimate RV systolic pressure due to insufficient tricuspid regurgitant envelope. Aortic Valve Moderately calcified aortic valve with restricted leaflet motion. Mean peak gradient 5 mmHg. Pulmonic Valve Mild (1+) pulmonic valve insufficiency. Great Vessels Normal sized aortic root. Pericardium/Pleural No pericardial effusion. MMode/2D Measurements & Calculations LVIDd: 4.0 cm IVSd: 1.3 cm LVOT diam: 1.9 cm LVIDs: 2.9 cm LVPWd: 1.3 cm LVOT area: 2.9 cm2 RVDd: 2.8 cm FS: 28.1 % _ Ao root diam: 3.2 cm LAV(MOD-bp): 48.6 ml LVAd ap4: 25.8 cm2 LA dimension: 4.5 cm LAV(MOD-bp) Indexed: 25.4 ml/m2 LVLd ap4: 7.7 cm LAV(MOD-sp2): 51.2 ml EDV(MOD-sp4): 71.1 ml LAV(MOD-sp4): 44.9 ml EDV(sp4-el): 73.5 ml LVAs ap4: 14.0 cm2 LVLs ap4: 6.7 cm ESV(MOD-sp4): 25.8 ml ESV(sp4-el): 24.8 ml EF(MOD-sp4): 63.7 % EF(sp4-el): 66.3 % _ SV(MOD-sp4): 45.3 ml SV(sp4-el): 48.7 ml LA A4 area: 17.2 cm2 SI(MOD-sp4): 23.7 ml/m2 _ LA dimension(2D): 3.8 cm RA A4 area: 10.5 cm2 Time Measurements MV dec time: 0.29 sec Doppler Measurements & Calculations MV E max betty: 87.9 cm/sec Lat Peak E' Betty: 6.3 cm/sec Med Peak E' Betty: 4.5 cm/sec MV A max betty: 131.2 cm/sec E/E' lat: 14.0 E/E' med: 19.5 MV E/A: 0.67 MV V2 max: 142.6 cm/sec Ao V2 max: 160.1 cm/sec MV max P.1 mmHg MV dec slope: 305.5 cm/sec2 Ao max P.3 mmHg MV V2 mean: 81.5 cm/sec Ao V2 mean: 113.5 cm/sec MV mean P.0 mmHg Ao mean P.9 mmHg MV V2 VTI: 44.2 cm Ao V2 VTI: 41.9 cm AV (velocity ratio): 0.98 MVA(VTI): 2.7 cm2 KIYA(I,D): 2.8 cm2 KIYA(V,D): 2.5 cm2 _ LV V1 max: 137.4 cm/sec SV(LVOT): 118.6 ml PA V2 max: 109.9 cm/sec LV V1 max P.6 mmHg PA V2 mean: 80.0 cm/sec LV V1 mean P.3 mmHg LV V1 mean: 111.5 cm/sec LV V1 VTI: 40.9 cm ECHO/Echo Complete Interpretation Summary Mild concentric left ventricular hypertrophy. The left ventricular ejection fraction is 60 %. Stage 1 diastolic dysfunction. The left atrium is mildly enlarged. There is Moderate focal posterior mitral annular calcification. Mild (1+) pulmonic valve insufficiency. Moderately calcified aortic valve with restricted leaflet motion. Mean peak gradient 5 mmHg. Ordering Physician: Kay Cavazos Referring Physician: Kay Cavazos Performed By: Rosa Mclain RCS 11/16/24 1057 Date _ Hector Rodarte MD CC: Dr. Flako Tracy MD; LORI Cho ~ Date Dictated: 11/16/24912 Date Transcribed: 11/16/24 1044 Account Group Supervisor: Signed [facility] Work Phone: Prothrombin Time w/INRon INR Coag (PPP) [Relative time] 2.0 {INR} Normal [facility] Comment on above: Performed By: #### L 300.3900 ####[facility] [id number] [place], [address] PT Coag (PPP) [Time] 22.8 s High 11.7-14.9 [facility] Comment on above: Performed By: #### L 300.3900 ####[facility] [id number] [place], [place], [id number] Bacteria Ur Culton 5 Bacteria identified Cx Nom (U) ORGANISM ID: 1 >=100,000 CFU/ml Providencia rettgeri ORGANISM ID: 1 (PROVIDENCIA RETTGERI) ANTIBIOTIC INTERPRETATION MANDY STATUS REFERENCE RANGE Ampicillin R F Cefazolin R >=64 F Susceptible 0-16 , Intermediate <0 or >16 , Resistant >16 For uncomplicated urinary tract infections, cefazolin results can be used to predict susceptibility or resistance to cephalexin. Ceftriaxone S <=1 F Susceptible <=1 , Intermediate >1 , Resistant >=4 Cefepime S <=1 F Susceptible <=2 , Susceptible-Dose Dependent >2 , Resistant >=16 Ertapenem S <=0.5 F Susceptible <=0.5 , Intermediate >.5 , Resistant >1 Meropenem S <=0.25 F Susceptible <=1 , Intermediate >1 , Resistant >2 Piperacillin/Tazobac S <=4 F Susceptible <16 , Susceptible-Dose Dependent >=16 , Resistant >=32 Gentamicin S <=1 F Susceptible <=2 , Intermediate >2 , Resistant >=8 Tobramycin S <=1 F Susceptible <4 , Intermediate >=4 , Resistant >=8 Trimeth sulfameth S <=20 F Susceptible <=40 , Resistant >40 Ciprofloxacin S <=0.25 F Susceptible <0.5 , Intermediate >=.5 , Resistant >=1 Nitrofurantoin R 128 F Susceptible <=32 , Intermediate >32 , Resistant >64 Abnormal [facility] Comment on above: Performed By: #### 6 30-4 ####[facility] LABCLIA [id number] [place] [id number] [facility] CNOVon 11-09-2024 CNOV Office Visit ([facility]) -------- LAISHA WALKER ([id number]) 1950 F Date Time Provider Department 11/09/24 4:45 PM NORMA FERNÁNDEZ During your visit today, we recorded the following information about you: Temperature Pulse Respiration Blood pressure 98.1 degrees 65/minute 18/minute 144/75 Weight 88.7 kg Norma Fernández APRN.[facility] 11/09/2024 5:19 PM Signed [facility] Subjective Laisha Johnston Aaron is a 74 year old female. Patient presents with: UTI: Burning, pain, urine odor x5 days UTI The patient is a 74-year-old female presenting with dysuria, urinary frequency, and chills. Dysuria and Urinary Frequency: - Onset: 1 week ago. - Associated with chills; denies fever >98 degreeF. - Denies emesis; reports chronic nausea. - Denies taking any medication for symptoms. - Denies pain over the bladder. Review of Systems Genitourinary: Positive for dysuria. Constitutional: (+) chills, (-) fever Gastrointestinal: (+) nausea, (-) vomiting Genitourinary: (+) urinary frequency, (+) dysuria, (-) suprapubic pain Musculoskeletal: (+) back pain Objective BP 144/75 Pulse 65 Temp 36.7 ?C (98.1 ?F) Resp 18 Wt 88.7 kg (195 lb 8.8 oz) SpO2 98% BMI 34.10 kg/m? PAST MEDICAL HISTORY Diagnosis Date Atrial fibrillation (HCC) SEES DR. BARRERA Carotid stenosis, asymptomatic Cirrhosis (HCC) CVA (cerebral vascular accident) (HCC) post op after 2017 bilateral knee replacements - per pt was told by neurology that it was a questionable stroke Diabetes mellitus type 2 in obese 01/22/2023 DVT (deep venous thrombosis) (HCC) post op Dysthymic disorder Depression (non-psychotic) Esophageal reflux Essential hypertension, benign Goiter, unspecified Goiter Liver cirrhosis (HCC) Macular degeneration (senile) of retina, unspecified Macular degeneration Other and unspecified hyperlipidemia Renal carcinoma, right (HCC) S/P placement of cardiac pacemaker 01/25/2023 Patient underwent implantation of [place] permanent pacemaker with right atrial and right ventricular apex leads with Dr. Steele on 01/24/2023. Type 2 diabetes mellitus (HCC) PAST SURGICAL HISTORY Procedure Laterality Date ANESTH,PACEMAKER INSERTION APPENDECTOMY 1963 RUPTURED APPENDIX ARTHRP KNE CONDYLEANDPLATU MEDIALANDLAT COMPARTMENTS Bilateral 2017 CHOLECYSTECTOMY 1995 Cholecystectomy COLONOSCOPY [facility] EGD EUS 06/11/2020 benign leiomyoma GE junction, mild antral gastropathy, fatty pancreas, likely cirrhotic liver, prominent dilated portal vein NEPHRECTOMY PARTIAL Right 05/18/2019 robotic PAST SURGICAL HISTORY OF 07/15/1999 LEFT SHOULDER PAST SURGICAL HISTORY OF Left 2018 REPAIR OF LEFT KNEE FRACTURE PAST SURGICAL HISTORY OF 05/2024 duodenal procedure TOTAL ABDOMINAL HYSTERECT W/WO RMVL TUBE OVARY 1984 Hysterectomy, JERRY ALLERGIES Gabapentin, Accupril [Quinapril Hcl], Bextra [Valdecoxib], Celebrex [Celecoxib], Codeine, Entex La [Phenylephrine-Guaifenes in], Glucophage [Metformin Hcl], Lipitor [Atorvastatin Calcium], Lodine [Etodolac], Naprosyn [Naproxen], Nsaids (Non-Steroidal Anti-Inflammatory Drug), Pravachol [Pravastatin Sodium], Sulfa (Sulfonamide Antibiotics), Ultracet [Tramadol-Acetaminophen] , Vicodin [Hydrocodone-Acetaminoph en], Vioxx [Rofecoxib], and Zocor [Simvastatin] MEDICATIONS glipiZIDE (GLUCOTROL XL) 10mg 24 hr tablet Take 1 tablet by mouth two times a day. pantoprazole DR (PROTONIX) 40 mg tablet Take 1 tablet by mouth every 12 hours. warfarin (COUMADIN) 2.5 mg tablet TAKE 1 TABLET BY MOUTH on Tuesday, Tuesday, Tuesday, and ; 2 tablets together to = 5mg on Tuesday, Tuesday and Tuesday at bedtdime; dose changes often, please give extra tablets rosuvastatin (CRESTOR) 20 mg tablet Take 1 tablet by mouth once daily. blood sugar diagnostic (BLOOD GLUCOSE TEST) test strip Test blood sugar(s) 1` times daily. Dx: Type 2 DM - Uncontrolled E11.65 Insulin: No metoprolol tartrate, short acting, (LOPRESSOR) 50 mg tablet Take 50 mg by mouth two times a day. losartan (COZAAR) 25 mg tablet Take 0.5 tablets by mouth every afternoon. docusate sodium (STOOL SOFTENER ORAL) Take by mouth as needed. OTC Lancets lancets Test blood sugar(s) 1` times daily. Dx: Type 2 DM - Uncontrolled E11.65 Insulin: No multivitamin (MULTIPLE VITAMINS ORAL) Take by mouth. alcohol swabs (ALCOHOL PREP PADS) Apply 1 application to affected area once daily. loratadine (CLARITIN) 10 mg tablet Take 10 mg by mouth once daily. pioglitazone (ACTOS) 15 mg tablet Take 1 tablet by mouth once daily. (Patient not taking: Reported on 10/17/2024) hydrocortisone (ANUSOL-HC) 2.5 % rectal cream by RECTAL route twice daily. acetaminophen (TYLENOL) 325 mg tablet Take 500 mg by mouth. 2 TABLETS AT HS (Patient not taking: Reported on 10/17/2024) FAMILY HISTORY Problem Relation Age of Onset (more content not included)... Normal [facility] UA DIP, URINE (POC)on 2024 BILIRUBIN UA (POCT) Negative Negative [facility] CLARITY UA (POCT) Cloudy [facility] COLOR UA (POCT) Yellow [facility] GLUCOSE UA (POCT) 500 mg/dL Abnormal Negative [facility] Hemoglobin Ql (U) Trace-intact Abnormal Negative [facility] Interpretation and review of laboratory results Abnormal [facility] KETONE UA (POCT) Negative Negative mg/dL [facility] LEUKOCYTES UA (POCT) Large Abnormal Negative [facility] NITR[facility] (POCT) Positive Abnormal Negative [facility] PH UA (POCT) 7.5 4.5 - 8.0 [facility] Protein Ql (U) 30 mg/dL Abnormal Negative [facility] SPECIFIC GRAVITY UA (POCT) 1.015 1.005 - 1.030 [facility] UROBILINOGEN UA (POCT) 0.2 Mily l E.U./dL [facility] Location:[facility], [address] [place] [address], [place], [address] [facility] Prothrombin Time w/INRon INR Coag (PPP) [Relative time] 1.6 {INR} Normal [facility] Comment on above: Performed By: #### L 300.3900 ####[facility] [id number] [place], [place], [address] PT Coag (PPP) [Time] 19.7 s High 11.7-14.9 [facility] Comment on above: Performed By: #### L [id number] ####[facility] [id number] [place], [place], [address] CNPNon 11-02-2024 CNPN Telephone ([facility]STNOR) -------- LAISHA WALKER ([id number]) 1950 F Date Time Provider Department 11/02/24 ADRIA ANSARI During your visit today, we recorded the following information about you: Sallie Mcmanus 11/02/2024 1:52 PM Signed Patient called and asks if she has liver cirrhosis. If she does, she would like to know what she should do next. Please call patient to answer her questions. Dariela Coulter PA-C 11/02/2024 4:26 PM Signed Spoke to patient on the phone; verified identity with full name and date of . Discussed diagnosis of cirrhosis based on elastography in may 2024. Discussed reasoning for EUS, EGD, colonoscopy. Patient expressed understanding and appreciation for call. Recommended follow up with Dr. Urbano in clinic. Allergies As of Date: 11/02/2024 Noted Allergy Reaction GABAPENTIN 11/03/2021 14 - Other: See Comments Comments: Dizziness ACCUPRIL (QUINAPRIL HCL) 07/05/2005 14 - Other: See Comments BEXTRA (VALDECOXIB) 07/05/2005 8 - GI Upset CELEBREX (CELECOXIB) 07/05/2005 8 - GI Upset Comments: CODEINE 07/05/2005 14 - Other: See Comments ENTEX LA (PHENYLEPHRINE-GUAIFENES *07/05/2005 14 - Other: See Comments GLUCOPHAGE (METFORMIN HCL) 07/05/2005 14 - Other: See Comments LIPITOR (ATORVASTATIN CALCIUM) 07/05/2005 14 - Other: See Comments LODINE (ETODOLAC) 07/05/2005 8 - GI Upset NAPROSYN (NAPROXEN) 07/05/2005 14 - Other: See Comments NSAIDS (NON-STEROIDAL ANTI-INFLAM*12/06/2019 14 - Other: See Comments PRAVACHOL (PRAVASTATIN SODIUM) 07/05/2005 14 - Other: See Comments Comments: Worsening abdominal pain SULFA (SULFONAMIDE ANTIBIOTICS) 07/08/2014 8 - GI Upset ULTRACET (TRAMADOL-ACETAMINOPHEN) 07/05/2005 14 - Other: See Comments VICODIN (HYDROCODONE-ACETAMINOPH E*07/05/2005 14 - Other: See Comments VIOXX (ROFECOXIB) 07/05/2005 14 - Other: See Comments ZOCOR (SIMVASTATIN) 07/05/2005 14 - Other: See Comments Date Reviewed: 11/01/2024 Reviewed by: Krysta Patel, RN - Fully Assessed Reason for Visit: Patient Question [1477] Prescriptions as of 11/02/2024 - glipiZIDE (GLUCOTROL XL) 10mg 24 hr tablet Take 1 tablet by mouth two times a day. - pantoprazole DR (PROTONIX) 40 mg tablet Take 1 tablet by mouth every 12 hours. - pioglitazone (ACTOS) 15 mg tablet Take 1 tablet by mouth once daily. - warfarin (COUMADIN) 2.5 mg tablet TAKE 1 TABLET BY MOUTH on Tuesday, Tuesday, Tuesday, and ; 2 tablets together to = 5mg on Tuesday, Tuesday and Tuesday at bedtdime; dose changes often, please give extra tablets - rosuvastatin (CRESTOR) 20 mg tablet Take 1 tablet by mouth once daily. - blood sugar diagnostic (BLOOD GLUCOSE TEST) test strip Test blood sugar(s) 1` times daily. Dx: Type 2 DM - Uncontrolled .65 Insulin: No - metoprolol tartrate, short acting, (LOPRESSOR) 50 mg tablet Take 50 mg by mouth two times a day. - losartan (COZAAR) 25 mg tablet Take 0.5 tablets by mouth every afternoon. - docusate sodium (STOOL SOFTENER ORAL) Take by mouth as needed. OTC - Lancets lancets Test blood sugar(s) 1` times daily. Dx: Type 2 DM - Uncontrolled 65 Insulin: No - hydrocortisone (ANUSOL-HC) 2.5 % rectal cream by RECTAL route twice daily. - multivitamin (MULTIPLE VITAMINS ORAL) Take by mouth. - alcohol swabs (ALCOHOL PREP PADS) Apply 1 application to affected area once daily. - loratadine (CLARITIN) 10 mg tablet Take 10 mg by mouth once daily. - acetaminophen (TYLENOL) 325 mg tablet Take 500 mg by mouth. 2 TABLETS AT HS Problem List As Of Date 11/02/2024 Noted Resolved LUMBAGO [M54.50] 07/06/2005 ENTHESOPATHY OF HIP [M76.899] 07/06/2005 SPRAIN LUMBAR REGION [S33.5XXA] 07/06/2005 Dyslipidemia associated with type 2 diabetes me* Paroxysmal atrial fibrillation (HCC) [I48.0] 01/15/2023 Carotid stenosis, asymptomatic [I65.29] Right renal mass [N28.89] 05/18/2019 BMI 34.0-34.9,adult [Z68.34] 05/19/2019 Renal carcinoma, right (HCC) [C64.1] 05/20/2019 01/21/2023 Other cirrhosis of liver (HCC) [K74.69] 05/23/2020 Stage 3a chronic kidney disease (HCC) [N18.31] 08/10/2022 Obesity, Class I, BMI 30-34.9 [E66.811] 11/19/2022 01/22/2023 Anticoagulant long-term use [Z79.01] 11/24/2022 Third degree atrioventricular block (HCC) [I44.*01/22/2023 Bradycardia [R00.1] 01/22/2023 At risk for stroke [Z91.89] 01/22/2023 Bilateral carotid artery stenosis [I65.23] 10/10/2016 Diagnosed: 01/22/2023 Gastroesophageal reflux disease [K21.9] 01/22/2023 Diagnosed: 01/22/2023 Hyperlipidemia [E78.5] 01/22/2023 Diagnosed: 01/22/2023 Recurrent falls [R29.6] 01/22/2023 Diagnosed: 01/22/2023 Orthostatic hypotension [I95.1] 01/17/2023 Diagnosed: 01/22/2023 Holley-Mary syncope [I45.9] 01/22/2023 Diabetes mellitus type 2 in obese (HCC) [E11.6*01/22/2023 S/P placement of cardiac pacemaker [Z95.0] 01/25/2023 HTN (hypertension) [I10] 10/17/2024 History of (more content not included)... Normal [facility] ANES POSTPROC EVALon 025 ANES POSTPROC EVAL HNO ID: [id number] Author: ANIKA GALAN MD Service: ? Author Type: Anesthesiologist Type: Anesthesia Postprocedure Evaluation Filed: 11/01/2024 16:34 Note Text: POST ANESTHESIA EVALUATION NOTE : 1950 Procedure Summary Date: 11/01/24 Room / Location: Gastroenterology Anesthesia Start: 1109 Anesthesia Stop: 1159 Procedures: COLONOSCOPY SCREENING EGD - THERAPEUTIC, EUS, OR TUBE INTERVENTIONS Diagnosis: Hepatic cirrhosis, unspecified hepatic cirrhosis type, unspecified whether ascites present (HCC) Encounter for screening colonoscopy (Screening for colorectal malignant neoplasm) (Abnormal ultrasound of the abdomen) Scheduled Providers: Chelsi Cobb MD; Lesly Herrera APRN.CRNA; Anika Galan MD Responsible Provider: Anika Galan MD Anesthesia Type: general ASA Status: 4 Anesthesia Type: general Airway Type: supplemental O2 Last Vitals Vitals Value Taken Time BP 137/61 11/01/24 12:20 Temp 36.4 ?C (97.5 ?F) 11/01/24 11:59 Pulse 60 11/01/24 12:22 Resp 16 11/01/24 11:59 SpO2 99 % 11/01/24 12:22 Vitals shown include unfiled device data. Post Anesthesia Patient Status Patient Evaluation: PACU. PACU/ICU Patient Condition: stable. Anticipated Disposition: phase 2 then home. Neurological Status: aware and responsive. Pulmonary Status: breathing comfortably on room air Airway Control: returned to baseline unsupported. Cardiovascular Status: stable. Pain Management: clinically adequate Postoperative Hydration: acceptable. Intraoperative Events: no significant anesthesia events Post Operative Nausea/Vomiting Status: no significant post operative nausea or vomiting Recommendation: continue current plan of care. Anesthesia Observations No Documentation SIGNATURE: Anika Galan MD PATIENT NAME: Laisha Walker DATE: November 01, 2024 TIME: 4:34 PM CSN: [id number] Normal [facility] ANES PRE-OPon 11-01-2024 ANES PRE-OP HNO ID: [id number] Author: ANIKA GALAN MD Service: ? Author Type: Anesthesiologist Type: Anesthesia Preprocedure Evaluation Filed: 11/01/2024 11:08 Note Text: ANESTHESIOLOGY DAY OF SURGERY NOTE : 1950 Procedure Information Date/Time: 11/01/24 1100 Scheduled providers: Chelsi Cobb MD; Lesly Herrera APRN.AGRICULTURAL ECONOMICS TEACHER; Anika Galan MD Procedures: COLONOSCOPY SCREENING EGD - THERAPEUTIC, EUS, OR TUBE INTERVENTIONS Location: Gastroenterology Estimated body mass index is 34.35 kg/m? as calculated from the following: Height as of 10/17/24: 161.3 cm (5' 3.5). Weight as of 10/17/24: 89.4 kg (197 lb). Most recent hematocrit and potassium results: Hematocrit 35.0 09/27/2024 Potassium 4.4 08/13/2024 Relevant Problems CARDIO (+) Bilateral carotid artery stenosis (+) Carotid stenosis, asymptomatic (+) HTN (hypertension) (+) Paroxysmal atrial fibrillation (HCC) (+) Third degree atrioventricular block (HCC) ENDO (+) Diabetes mellitus type 2 in obese (+) Dyslipidemia associated with type 2 diabetes mellitus (HCC) GI (+) Gastroesophageal reflux disease -RENAL (+) Other cirrhosis of liver (HCC) (+) Stage 3a chronic kidney disease (HCC) I - PHYSICAL EVALUATION AIRWAY Patient intubated: No. Tracheostomy tube not present Mallampati: II. TM distance: >3 FB. Neck ROM: full ROM without neurological symptoms. Mouth openin FB. Short neck: no. Thick neck: no DENTAL Dental findings: teeth intact. II - ANESTHESIA PLAN ASA Score: 4 Anesthetic Plan: general Airway type: supplemental O2 NPO Status: adequate Monitoring Plan Monitoring plan: standard ASA. Post Procedure Analgesic Plan Postoperative analgesic plan: per surgical service. Informed Consent Anesthetic risks, benefits, alternatives, personnel and consent discussed: yes. Patient / Responsible Libertarian agrees to proceed: yes Patient / Surrogate agrees to blood products: blood products not planned Significant changes in the patient condition since the History and Physical, not otherwise documented in primary service progress note: no. Potential Anesthesia issues that may suggest increased risk of complications or contraindication to planned procedure: none. Vitals Value Taken Time BP 156/65 11/01/24 10:37 Pulse Resp 16 11/01/24 10:37 Temp 36.3 ?C (97.3 ?F) 11/01/24 10:37 SpO2 98 % 11/01/24 10:37 Outpatient Medications as of 11/01/2024 Medication Sig glipiZIDE (GLUCOTROL XL) 10mg 24 hr tablet Take 1 tablet by mouth two times a day. pantoprazole DR (PROTONIX) 40 mg tablet Take 1 tablet by mouth every 12 hours. pioglitazone (ACTOS) 15 mg tablet Take 1 tablet by mouth once daily. (Patient not taking: Reported on 10/17/2024) warfarin (COUMADIN) 2.5 mg tablet TAKE 1 TABLET BY MOUTH on Tuesday, Tuesday, Tuesday, and ; 2 tablets together to = 5mg on Tuesday, Tuesday and Tuesday at bedtdime; dose changes often, please give extra tablets rosuvastatin (CRESTOR) 20 mg tablet Take 1 tablet by mouth once daily. blood sugar diagnostic (BLOOD GLUCOSE TEST) test strip Test blood sugar(s) 1` times daily. Dx: Type 2 DM - Uncontrolled E11.65 Insulin: No metoprolol tartrate, short acting, (LOPRESSOR) 50 mg tablet Take 50 mg by mouth two times a day. losartan (COZAAR) 25 mg tablet Take 0.5 tablets by mouth every afternoon. docusate sodium (STOOL SOFTENER ORAL) Take by mouth as needed. OTC Lancets lancets Test blood sugar(s) 1` times daily. Dx: Type 2 DM - Uncontrolled E11.65 Insulin: No hydrocortisone (ANUSOL-HC) 2.5 % rectal cream by RECTAL route twice daily. multivitamin (MULTIPLE VITAMINS ORAL) Take by mouth. alcohol swabs (ALCOHOL PREP PADS) Apply 1 application to affected area once daily. loratadine (CLARITIN) 10 mg tablet Take 10 mg by mouth once daily. acetaminophen (TYLENOL) 325 mg tablet Take 500 mg by mouth. 2 TABLETS AT HS (Patient not taking: Reported on 10/17/2024) No current facility-administered medications on file as of 11/01/2024. I have interviewed and examined the patient. I have reviewed the medical record and/or the pre-anesthesia evaluation, pertinent labs, and test results. This contains updated information obtained within 48 hours of Surgery/Procedure. SIGNATURE: Anika Galan MD PATIENT NAME: Laisha Walker DATE: November 01, 2024 TIME: 11:07 AM CSN: [id number] Normal [facility] Colonoscopyon 11-01-2024 Colonoscopy Q3 Patient Name: Laisha Walker Procedure Date: 11/01/2024 11:06 AM Date of : 1950 Admit Type: Outpatient Age: 74 Gender: Female Note Status: Finalized Attending MD: Chelsi Cobb MD, [id number] Procedure: Colonoscopy Indications: Screening for colorectal malignant neoplasm Providers: Chelsi Cobb MD Patient Profile: Last Colonoscopy: 5 years ago. Referring Physician: Dariela Coulter (Referring MD) Medicines: General Anesthesia Complications: No immediate complications. Requesting Provider: Procedure: Pre-Anesthesia Assessment: - ASA Grade Assessment: II - A patient with mild systemic disease. After I obtained informed consent, the scope was passed under direct vision. Throughout the procedure, the patient's blood pressure, pulse, and oxygen saturations were monitored continuously. The Colonoscope was introduced through the anus and advanced to the cecum, identified by appendiceal orifice and ileocecal valve. The colonoscopy was performed without difficulty. The patient tolerated the procedure well. The quality of the bowel preparation was excellent. The ileocecal valve, appendiceal orifice, and rectum were photographed. Moderate Sedation: MAC anesthesia was administered by the anesthesia team. Findings: The perianal and digital rectal examinations were normal. The colon (entire examined portion) appeared normal. No additional abnormalities were found on retroflexion. A 3 mm polyp was found in the cecum. The polyp was sessile. The polyp was removed with a cold biopsy forceps. Resection and retrieval were complete. Impression: - The entire examined colon is normal. - One 3 mm polyp in the cecum, removed with a cold biopsy forceps. Resected and retrieved. Estimated Blood Loss: Estimated blood loss: none. Recommendation: - Patient has a contact number available for emergencies. The signs and symptoms of potential delayed complications were discussed with the patient. Return to normal activities tomorrow. Written discharge instructions were provided to the patient. - Resume previous diet. - Continue present medications. - Repeat colonoscopy in 5-10 years for surveillance. Procedure Code(s): --- Professional --- 25719, Colonoscopy, flexible; with biopsy, single or multiple Diagnosis Code(s): --- Professional --- Z12.11, Encounter for screening for malignant neoplasm of colon D12.0, Benign neoplasm of cecum CPT copyright 2020 [employer]. All rights reserved. Attending Participation: I personally performed the entire procedure. Scope In: 11:35:00 AM Scope Out: 11:47:25 AM MD Chelsi Isbell MD 11/01/2024 11:51:00 AM This report has been signed electronically by Chelsi Cobb MD Number of Addenda: 0 Note Initiated On: 11/01/2024 11:06 AM Normal [facility] Colonoscopy Study observatio non 11-01-2024 [facility] Radiology Study observation (narrative) [facility] EGD Study observation Narrat iveon 11-01-2024 [facility] Radiology Study observation (narrative) [facility] NURSING PROGon 11-01-2024 NURSING PROG HNO ID: [id number] Author: KRYSTA PATEL RN Service: ? Author Type: Registered Nurse Type: Nursing Progress Note Filed: 11/01/2024 12:06 Note Text: AMBULATORY PATIENT EDUCATION NOTE TOPIC: GI PROCEDURES: Colonoscopy with or without biopsies based on clinical findings Endoscopic Ultrasound (EUS) with or without Fine Needle Aspiration (FNA) Esophagogastroduodenosco py(EGD) with or without biopies based on clinical findings, removal of polyps or lesions READINESS TO LEARN INSTRUCTION PROVIDED TO: Patient, readness to learn accessed prior to procedure COGNITIVE ABILITY: Alert and oriented PTED MOTIVATION TO LEARN: Eager FAMILY SUPPORT: High - Very involved in pt care IPATIENT LEARNS BEST BY: Individual Instruction Written Instruction - Hand-outs Verbal Instruction FACTORS AFFECTING LEARNING: None PHYSICAL LIMITATIONS AFFECTING LEARNING: None LEARNING RESPONSE METHOD OF INSTRUCTION: Individual instruction PATIENT / FAMILY RESPONSE: Verbalizes understanding of: WORSENING CONDITION-Signs and symptoms of a worsening condition that warrant a call to the physician FOLLOW-UP PLAN: Patient instructed to call with any further issues SUPPLEMENTAL MATERIAL: Procedure Discharge Instructions REFERRAL (RECOMMENDATION): None Electronically Signed By: Krysta Patel RN [facility] NURSING PROG HNO ID: [id number] Author: LÓPEZ PAIGE RN Service: Nursing Author Type: Registered Nurse Type: Nursing Progress Note Filed: 11/01/2024 10:22 Note Text: PRE OP LEARNING ASSESSMENT PROCEDURE/SURGERY: GI PROCEDURES: Colonoscopy, EGD, and ESU READINESS TO LEARN COGNITIVE ABILITY: Alert and oriented MOTIVATION TO LEARN: Interested FAMILY SUPPORT: High - Very involved in pt care PATIENT LEARNS BEST BY: Individual Instruction FACTORS AFFECTING LEARNING: None PHYSICAL LIMITATIONS AFFECTING LEARNING: None Electronically Signed By: López Paige RN In Department: GASTROENTEROLOGY Normal [facility] Pathology biopsy report Dominic (Tiss)on 11-01-2024 AP DISCLAIMER Normal [facility] Comment on above: Order Comment: Speci men Type: TISSUE SPECIMENOrdering Facility: [facility] Address: [address] [place] [address] Result Comment: Valorie whyte Developed Test (LDT) Disclaimer: Performance characteristics of immunohistochemical, immunofluorescent, and chromogenic in-situ hybridization tests have been determined by the performing laboratory within the [facility] Department of Pathology and Laboratory Medicine ([facility], [facility], [facility], [facility], [facility], or [facility]) in a manner consistent with CLIA requirements. One or more of these tests may not have been cleared or approved by the FDA. The [facility] Department of Pathology and Laboratory Medicine is regulated under CLIA as qualified to perform high-complexity testing. These tests are used for clinical purposes. These should not be regarded as investigational or for research. Positive and negative controls stain appropriately. Performed By: #### 6 6121-5 ####[facility] LAB[facility] [id number] [place] [address] [place] CASE REPORT Normal [facility] Comment on above: Order Comment: Debbie pagan Type: TISSUE SPECIMENOrdering Facility: [facility] Address: [address] [place] [address] Result Comment: Surg [facility] Pathology Report Case: [id number] Authorizing Provider: Chelsi Cobb MD Collected: 11/01/2024 11:43 AM Ordering Location: Gastroenterology Received: 11/01/2024 04:34 PM Pathologist: Lucio Richmond MD, PhD Specimen: Colon, Cecum, Polyp, R/o adenoma Performed By: #### 6 6121-5 ####[facility] [id number] [address] STATES OF [facility] FINAL DIAGNOSIS Normal [facility] Comment on above: Order Comment: Debbie pagan Type: TISSUE SPECIMENOrdering Facility: [facility] Address: [address] [place] [address] Result Comment: A. C ecum polyp, polypectomy: - Multiple fragments of tubular adenoma at 1258 EDT Performed By: #### 6 6121-5 ####[facility] [id number] [address] [address] [place] FINAL PERFORMING LAB Normal [facility] Comment on above: Order Comment: Speci men Type: TISSUE SPECIMENOrdering Facility: [facility] Address: [address] [place] [address] Result Comment: Diag nostic interpretation performed at: [facility], [address] [place] [address], [place] [address] CLIA# [id number] Ships Or Barges Loader: Gennaro Wolfe MD Performed By: #### 6 6121-5 ####[facility] [id number] [place] [address] [place] GROSS DESCRIPTION Normal [facility] Comment on above: Order Comment: Speci men Type: TISSUE SPECIMENOrdering Facility: [facility] Address: [address] [place] [address] Result Comment: Andrew guy, Cecum, Polyp Received in formalin are two pieces of florence, soft tissue aggregating to 0.9 x 0.2 x 0.1 cm. Totally submitted in one cassette. DB November 01, 2024 8:44 PM Gross examination performed at [facility], [address] [place] [address] Performed By: #### 6 6121-5 ####[facility] [id number] [place] [address] [place] International normalized rat io (INR) calculationOrdered By: Kay Cavazos on 10-26-2024 INR Coag (Bld) [Relative time] 2.2 {INR} [facility] Prothrombin Time w/INRon INR Coag (PPP) [Relative time] 2.2 {INR} Normal [facility] Comment on above: Performed By: #### L 300.3900 ####[facility] [address]fi[address] [facility] [id number] PT Coag (PPP) [Time] 24.6 s High 11.7-14.9 [facility] Comment on above: Performed By: #### L 300.3900 ####[facility] [address] [place], [address] Prothrombin timeOrdered By: Kay Cavazos on 10-26-2024 PT Coag (PPP) [Time] 24.6 s High [facility]7-14.9 [facility] CNPN Telephone (PREANME) -------- LAISHA WALKER ([id number]) 1950 F Date Time Provider Department 10/25/24 CHERELLE MELENDREZ PREANME During your visit today, we recorded the following information about you: Cherelle Melendrez APRN.CNP 10/26/2024 9:01 AM Addendum Valorie, I saw this mutual patient in [facility] on 10/17/2024. Laisha Walker 1950 [id number] is scheduled for Colonoscopy with you on 11/01/24. Received cardiac optimization letter from patient's secretarial stenographer, which in the attached note stated, 90% stenosis of left w/ significant collaterals, 50% stenosis of right per [place] 10/27/2020. Right ICA 20-39% states to have secretarial stenographer appointment 06/04/24 for this. Patient apparently was to see someone at the [facility] but they retired therefore we will revaluate this with carotid ultrasounds and if appropriate refer to one of the vascular surgeons. I am concerned about these dizzy spells that the patient is having which may be related to this carotid stenosis it does not appear to be related to her pacemaker which is functioning appropriately. June 2023 per Social Welfare Administrator note: Mild (<50%) stenosis right extracranial internal carotid. 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 Patent and antegrade vertebrals internally. Consulted Dr. Daphney Sweeney - Anesthesiologist, patient will have to have vascular workup prior to elective procedure. Called patient and made her aware of this. Thank you Cherelle Melendrez APRN.[facility] ADDENDUM: October 26, 2024 8:58 AM [facility] called this PRODUCER ASSISTANT this morning - spoke to Mar Carriage Operator. Voices that she is cleared as this is chronic and stable and had recent imaging in their office. Pending scan. Surgery can still proceed with appropriate workup per anesthesiologist. Erlinda Leigh LPN 10/26/2024 9:42 AM Signed Faxed optimization letter to [facility] requesting response back. JAMIE Mendiola Jessica, LPN 10/26/2024 10:45 AM Signed Received letter back from Vascular and last office visit. Scanned into [employer] through Onbase scanning. JAMIE Mendiola Ariana, APRN.JASEN 10/26/2024 10:57 AM Signed Patient has received clearance from vascular standpoint. See Scanned Documents. Cherelle Melendrez APRN.JASEN Allergies As of Date: 10/25/2024 Noted Allergy Reaction GABAPENTIN 11/03/2021 14 - Other: See Comments Comments: Dizziness ACCUPRIL (QUINAPRIL HCL) 07/05/2005 14 - Other: See Comments BEXTRA (VALDECOXIB) 07/05/2005 8 - GI Upset CELEBREX (CELECOXIB) 07/05/2005 8 - GI Upset Comments: CODEINE 07/05/2005 14 - Other: See Comments ENTEX LA (PHENYLEPHRINE-GUAIFENES *07/05/2005 14 - Other: See Comments GLUCOPHAGE (METFORMIN HCL) 07/05/2005 14 - Other: See Comments LIPITOR (ATORVASTATIN CALCIUM) 07/05/2005 14 - Other: See Comments LODINE (ETODOLAC) 07/05/2005 8 - GI Upset NAPROSYN (NAPROXEN) 07/05/2005 14 - Other: See Comments NSAIDS (NON-STEROIDAL ANTI-INFLAM*12/06/2019 14 - Other: See Comments PRAVACHOL (PRAVASTATIN SODIUM) 07/05/2005 14 - Other: See Comments Comments: Worsening abdominal pain SULFA (SULFONAMIDE ANTIBIOTICS) 07/08/2014 8 - GI Upset ULTRACET (TRAMADOL-ACETAMINOPHEN) 07/05/2005 14 - Other: See Comments VICODIN (HYDROCODONE-ACETAMINOPH E*07/05/2005 14 - Other: See Comments VIOXX (ROFECOXIB) 07/05/2005 14 - Other: See Comments ZOCOR (SIMVASTATIN) 07/05/2005 14 - Other: See Comments Date Reviewed: 10/17/2024 Reviewed by: Cherelle Melendrez APRN.MORTICIAN INVESTIGATOR - Fully Assessed Reason for Visit: Preparations For Surgery [898] Prescriptions as of 10/26/2024 - glipiZIDE (GLUCOTROL XL) 10mg 24 hr tablet Take 1 tablet by mouth two times a day. - pantoprazole DR (PROTONIX) 40 mg tablet Take 1 tablet by mouth every 12 hours. - pioglitazone (ACTOS) 15 mg tablet Take 1 tablet by mouth once daily. - warfarin (COUMADIN) 2.5 mg tablet TAKE 1 TABLET BY MOUTH on Tuesday, Tuesday, Tuesday, and ; 2 tablets together to = 5mg on Tuesday, Tuesday and Tuesday at bedtdime; dose changes often, please give extra tablets - rosuvastatin (CRESTOR) 20 mg tablet Take 1 tablet by mouth once daily. - blood sugar diagnostic (BLOOD GLUCOSE TEST) test strip Test blood sugar(s) 1` times daily. Dx: Type 2 DM - Uncontrolled E11.65 Insulin: No - metoprolol tartrate, short acting, (LOPRESSOR) 50 mg tablet Take 50 mg by mouth two times a day. - losartan (COZAAR) 25 mg tablet Take 0.5 tablets by mouth every afternoon. - docusate sodium (STOOL SOFTENER ORAL) Take by mouth as needed. OTC - Lancets lancets Test blood sugar(s) 1` times daily. Dx: Type 2 DM - Uncontrolled E11.65 Insulin: No - hydrocortisone (ANUSOL-HC) 2.5 % rectal cream by RECTAL route twice daily. - multivitamin (MULTIPLE VITAMINS ORAL) Take by mouth. - alcohol swabs (ALCOHOL PREP PADS) Apply 1 application to affected area once daily. - loratadine (CLAR (more content not included)... Normal [facility] NURSING PROGon 10-25-2024 NURSING PROG HNO ID: [id number] Author: JEN SWIFT RN Service: ? Author Type: Registered Nurse Type: Nursing Progress Note Filed: 10/25/2024 12:37 Note Text: Attempted to reach the patient at the contact number that they provided [phone] (home) . Unable to speak with patient so without identifying the patient the following information was left on their voice mail: Date of procedure, location and report time Prep instructions A message was left informing the patient/patient sales representative meats they must have a responsible adult accompany them to their procedure; and remain in the endoscopy area until they are discharged. Failure to have a responsible adult accompany the patient to their procedure appointment prevents the use of sedation or anesthesia for their procedure; and can result in cancellation of the procedure NPO instructions were reviewed. Clear liquids the day before the procedure, stop all liquids 4 hours before the procedure Instructions to contact their primary care provider regarding their medications and which medications to stop in preparation for their procedure Instructions to completely read and follow the written instructions that they recieved regarding their procedure. Number to call with questions or concerns [phone] Number to call to cancel their procedure [phone] Jen [facility] Telephone (PANCarnad) -------- LAISHA WALKER ([id number]) 1950 F Date Time Provider Department 10/22/24 CHERELLE MELENDREZ During your visit today, we recorded the following information about you: Erlinda Leigh LPN 10/22/2024 9:40 AM Signed Received Cardiac optimization letter and cardiac records. Scanned into [facility] through Onbase scanning. JAMIE Mendiola Ariana, APRN.JASEN 10/22/2024 11:05 AM Signed Hello, Would you mind calling to see if they ca fax over recent pacemaker check? It was not included in testing. Thanks!!!! Cherelle Melendrez APRN.Erlinda Gomes LPN 10/22/2024 1:12 PM Signed Scanned into epic through Onbase scanning. Erlinda Leigh LPN Allergies As of Date: 10/22/2024 Noted Allergy Reaction GABAPENTIN 11/03/2021 14 - Other: See Comments Comments: Dizziness ACCUPRIL (QUINAPRIL HCL) 07/05/2005 14 - Other: See Comments BEXTRA (VALDECOXIB) 07/05/2005 8 - GI Upset CELEBREX (CELECOXIB) 07/05/2005 8 - GI Upset Comments: CODEINE 07/05/2005 14 - Other: See Comments ENTEX LA (PHENYLEPHRINE-GUAIFENES *07/05/2005 14 - Other: See Comments GLUCOPHAGE (METFORMIN HCL) 07/05/2005 14 - Other: See Comments LIPITOR (ATORVASTATIN CALCIUM) 07/05/2005 14 - Other: See Comments LODINE (ETODOLAC) 07/05/2005 8 - GI Upset NAPROSYN (NAPROXEN) 07/05/2005 14 - Other: See Comments NSAIDS (NON-STEROIDAL ANTI-INFLAM*12/06/2019 14 - Other: See Comments PRAVACHOL (PRAVASTATIN SODIUM) 07/05/2005 14 - Other: See Comments Comments: Worsening abdominal pain SULFA (SULFONAMIDE ANTIBIOTICS) 07/08/2014 8 - GI Upset ULTRACET (TRAMADOL-ACETAMINOPHEN) 07/05/2005 14 - Other: See Comments VICODIN (HYDROCODONE-ACETAMINOPH E*07/05/2005 14 - Other: See Comments VIOXX (ROFECOXIB) 07/05/2005 14 - Other: See Comments ZOCOR (SIMVASTATIN) 07/05/2005 14 - Other: See Comments Date Reviewed: 10/17/2024 Reviewed by: Cherelle Melendrez APRN.MORTICIAN INVESTIGATOR - Fully Assessed Prescriptions as of 10/22/2024 - glipiZIDE (GLUCOTROL XL) 10mg 24 hr tablet Take 1 tablet by mouth two times a day. - pantoprazole DR (PROTONIX) 40 mg tablet Take 1 tablet by mouth every 12 hours. - pioglitazone (ACTOS) 15 mg tablet Take 1 tablet by mouth once daily. - warfarin (COUMADIN) 2.5 mg tablet TAKE 1 TABLET BY MOUTH on Tuesday, Tuesday, Tuesday, and ; 2 tablets together to = 5mg on Tuesday, Tuesday and Tuesday at bedtdime; dose changes often, please give extra tablets - rosuvastatin (CRESTOR) 20 mg tablet Take 1 tablet by mouth once daily. - blood sugar diagnostic (BLOOD GLUCOSE TEST) test strip Test blood sugar(s) 1` times daily. Dx: Type 2 DM - Uncontrolled 65 Insulin: No - metoprolol tartrate, short acting, (LOPRESSOR) 50 mg tablet Take 50 mg by mouth two times a day. - losartan (COZAAR) 25 mg tablet Take 0.5 tablets by mouth every afternoon. - docusate sodium (STOOL SOFTENER ORAL) Take by mouth as needed. OTC - Lancets lancets Test blood sugar(s) 1` times daily. Dx: Type 2 DM - Uncontrolled 65 Insulin: No - hydrocortisone (ANUSOL-HC) 2.5 % rectal cream by RECTAL route twice daily. - multivitamin (MULTIPLE VITAMINS ORAL) Take by mouth. - alcohol swabs (ALCOHOL PREP PADS) Apply 1 application to affected area once daily. - loratadine (CLARITIN) 10 mg tablet Take 10 mg by mouth once daily. - acetaminophen (TYLENOL) 325 mg tablet Take 500 mg by mouth. 2 TABLETS AT HS Problem List As Of Date 10/22/2024 Noted Resolved LUMBAGO [M54.50] 07/06/2005 ENTHESOPATHY OF HIP [M76.899] 07/06/2005 SPRAIN LUMBAR REGION [S33.5XXA] 07/06/2005 Dyslipidemia associated with type 2 diabetes me* Paroxysmal atrial fibrillation (HCC) [I48.0] 01/15/2023 Carotid stenosis, asymptomatic [I65.29] Right renal mass [N28.89] 05/18/2019 BMI 34.0-34.9,adult [Z68.34] 05/19/2019 Renal carcinoma, right (HCC) [C64.1] 05/20/2019 01/21/2023 Other cirrhosis of liver (HCC) [K74.69] 05/23/2020 Stage 3a chronic kidney disease (HCC) [N18.31] 08/10/2022 Obesity, Class I, BMI 30-34.9 [E66.811] 11/19/2022 01/22/2023 Anticoagulant long-term use [Z79.01] 11/24/2022 Third degree atrioventricular block (HCC) [I44.*01/22/2023 Bradycardia [R00.1] 01/22/2023 At risk for stroke [Z91.89] 01/22/2023 Bilateral carotid artery stenosis [I65.23] 10/10/2016 Diagnosed: 01/22/2023 Gastroesophageal reflux disease [K21.9] 01/22/2023 Diagnosed: 01/22/2023 Hyperlipidemia [E78.5] 01/22/2023 Diagnosed: 01/22/2023 Recurrent falls [R29.6] 01/22/2023 Diagnosed: 01/22/2023 Orthostatic hypotension [I95.1] 01/17/2023 Diagnosed: 01/22/2023 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 Normal [facility] Cardiology Visit Reporton Cardiology Visit Report Normal [facility] HISTORY PHYSICALon HISTORY PHYSICAL HNO ID: [id number] Author: CHERELLE MELENDREZ APRN.MORTICIAN INVESTIGATOR Service: ? Author Type: Nurse Practitioner Type: H&P Filed: 10/26/2024 12:52 Note Text: [facility] HISTORY AND PHYSICAL EXAMINATION SERVICE DATE: 10/17/2024 SERVICE TIME: 12:52 PM PRIMARY CARE PHYSICIAN: Flako Tracy MD Assessment Patient has the following medical conditions which may affect sanna-operative course: 1. 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 S/P placement of cardiac pacemaker (Z95.0) 3. Paroxysmal atrial fibrillation (HCC) (I48.0) - No episodes of syncope since pacemaker placement in 2022. - On Coumadin for anticoagulation; instructed to hold Coumadin 3-5 days prior to upcoming EGD and colonoscopy. - Will confirm Coumadin hold duration with Dr. Anna. - Shortness of breath worsening; seen by cardiology (Dr. Anna) today, echo performed. - Continue current management; will follow up with cardiology regarding echo results and further recommendations. External Cardiology - Miscellaneous Cardiac (10/22/2024) Type of device/Gut Sorter: [place] Last interrogation: 09/10/24 Pacemaker dependency: YY Surgical site: EGD/Colonscopy Location of CIED generator in body: Chest Device rep needed: No If device rep needed, PACC RN to contact. ADDENDUM: October 26, 2024 11:26 AM Patient optimized from a cardiac standpoint. External Document(s) - Consultation - Cardiology (10/19/2024) 4. Hyperlipidemia, unspecified hyperlipidemia type (E78.5) 5. Dyslipidemia associated with type 2 diabetes mellitus (HCC) (E11.69) - Continue rosuvastatin as prescribed. 6. Gastroesophageal reflux disease without esophagitis (K21.9) - Continue Protonix as prescribed. 7. Stage 3a chronic kidney disease (HCC) (N18.31) 8. Right renal mass (N28.89) - History of right renal mass resected. - No current issues reported. 9. BMI 34.0-34.9,adult (Z68.34) - Body mass index is 34.35 kg/m?. 10. Bilateral carotid artery stenosis (I65.23) - Recent evaluation performed per patient ADDENDUM: October 25, 2024 3:12 PM Received cardiac optimization letter from patient's secretarial stenographer, which in the attached note stated, 90% stenosis of left w/ significant collaterals, 50% stenosis of right per US 10/27/2020. Right ICA 20-39% states to have secretarial stenographer appointment 06/04/24 for this. Patient apparently was to see someone at the [facility] but they retired therefore we will revaluate this with carotid ultrasounds and if appropriate refer to one of the vascular surgeons. I am concerned about these dizzy spells that the patient is having which may be related to this carotid stenosis it does not appear to be related to her pacemaker which is functioning appropriately. June 2023 per Social Welfare Administrator note: Mild (<50%) stenosis right extracranial internal carotid. 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 Patent and antegrade vertebrals internally. Consulted Dr. Daphney Sweeney - Anesthesiologist, patient will have to have vascular workup prior to elective procedure. ADDENDUM: October 26, 2024 11:27 AM Patient is optimized from a vascular standpoint. Recent US and CTA below. Per Dr. Nell Valdivia MD - Anesthesiologist, okay to proceed. External Document(s) - Consultation - Vascular Medicine/Vascular Surgery (10/26/2024) 11. Hypertension, unspecified type (I10) - Continue losartan as prescribed. 12. History of DVT (deep vein thrombosis) (Z86.718) - On Coumadin for anticoagulation. 13. Acute midline low back pain without sciatica (M54.50) - Denies any new or worsening symptoms. 14. Anemia, unspecified type (D64.9) - Recent labs show resolving anemia (Hgb 11.4 on 09/27). ANESTHESIA FINDINGS: Intubation History: No history of difficult intubation. No abnormal airway history Significant Anesthesia Considerations: none Airway History: No history of difficult airway No abnormal airway history Elliott Activity Status Index: METS: Walk indoors, such as around the house (1.75 METs) Do light work around the house, such as dusting or washing dishes (2.70 METs) Take care of self; that is eating, dressing, bathing, using the toilet (2.75 METs) DASI Score: 7.2 (+ baseline dyspnea) Patient denies any chest pain or undue shortness of breath with the above physical activity. Clinical Frailty Scale: 3. Well, with treated comorbid disease STOP-Bang Score: Has or is being treated for high blood pressure Patient over 50 years old Denies snoring loudly Denies feeling tired, fatigued, or sleepy during the daytime Has not been observed to stop breathing or choking/gasping during sleep BMI less than or equal to 35 kg/m2 Does not have a large neck Non-male patient STOP-Bang Score: 2 I - PHYSICAL EVALUATION AIRWAY Patient intubated: No. Tracheostomy tube not present Mallampati: II. TM distance: >3 FB. Neck ROM: full ROM w (more content not included)... Normal [facility] Hepatic function 2000 panelo n 10-08-2024 Albumin [Mass/Vol] 4.0 g/dL Normal 3.9-4.9 [facility] Comment on above: Order Comment: Speci men Type: BLOOD SPECIMENOrdering Facility: [facility] Address: [address] [place] [address] Performed By: #### 2 4325-3 ####[facility] LABCLIA [id number] [facility] [address] [place] [address] [place] ALP [Catalytic activity/Vol] 96 U/L Normal 34-123 [facility] Comment on above: Order Comment: Speci men Type: BLOOD SPECIMENOrdering Facility: [facility] Address: [address] [place] [address] Performed By: #### 2 4325-3 ####[facility] LABCLIA [id number] [facility] [address] [place] [address] [place] ALT [Catalytic activity/Vol] 21 U/L Normal 7-38 [facility] Comment on above: Order Comment: Speci men Type: BLOOD SPECIMENOrdering Facility: [facility] Address: [address] [place] [address] Performed By: #### 2 4325-3 ####[facility] LABCLIA [id number] [address], [facility] [place] AST [Catalytic activity/Vol] 38 U/L High 13-35 [facility] Comment on above: Order Comment: Speci men Type: BLOOD SPECIMENOrdering Facility: [facility] Address: [address] [place] [address] Performed By: #### 2 4325-3 ####[facility] LABCLIA [id number] [place] [id number] [place] Bilirubin [Mass/Vol] 0.5 mg/dL Normal 0.2-1.3 [facility] Comment on above: Order Comment: Speci men Type: BLOOD SPECIMENOrdering Facility: [facility] Address: [address] [place] [address] Performed By: #### 2 4325-3 ####[facility] LABCLIA [id number] [address] [place] [address] [place] Bilirubin.conjugated [Mass/Vol] 0.2 mg/dL Normal <0.3 [facility] Comment on above: Order Comment: Speci men Type: BLOOD SPECIMENOrdering Facility: [facility] Address: [address] [place] [place] [id number] Performed By: #### 2 4325-3 ####[facility] LABCLIA [id number] [address] [address] [place] Protein [Mass/Vol] 7.5 g/dL Normal 6.3-8.0 [facility] Comment on above: Order Comment: Speci men Type: BLOOD SPECIMENOrdering Facility: [facility] Address: [address] [place], [place] [id number] Performed By: #### 2 4325-3 ####[facility] LABCLIA [id number] [place] [id number] [place] International normalized rat io (INR) calculationOrdered By: Kay Cavazos on 10-08-2024 INR Coag (Bld) [Relative time] 2.4 {INR} [facility] Prothrombin Time w/INRon INR Coag (PPP) [Relative time] 2.4 {INR} Normal [facility] Comment on above: Performed By: #### L 300.3900 ####[facility] [id number] [facility]. [place], [place], [id number] PT Coag (PPP) [Time] 26.3 s High 11.7-14.9 [facility] Comment on above: Performed By: #### L 300.3900 ####[facility] [id number] [facility]. [place], [place], [id number] Prothrombin timeOrdered By: Kay Cavazos on 10-08-2024 PT Coag (PPP) [Time] 26.3 s High 11.7-14.9 [facility] ASCITES SURVEYon 10-02-19 ASCITES SURVEY * * *Final Report* * * DATE OF EXAM: Oct 01 2024 11:00AM [facility] - US ASCITES SURVEY / PROCEDURE REASON: Hepatic cirrhosis, unspecified hepatic cirrhosis type, unspecified whether ascit * * * * Physician Interpretation * * * * EXAMINATION: US ASCITES SURVEY CLINICAL INFORMATION: 74 years old Female with Hepatic cirrhosis, unspecified hepatic cirrhosis type, unspecified whether ascites present TECHNIQUE: Targeted sonography of the abdomen was performed. Images were obtained and stored in a permanent archive. COMPARISON: CT abdomen pelvis 08/25/2022 RESULT/ IMPRESSION: No abdominal ascites. Limited evaluation of the abdomen demonstrates cirrhotic liver morphology. Account Group Supervisor: RODERICK Transcribe Date/Time: Oct 01 2024 3:16P Dictated by : VIDA GAMBINO DO This examination was interpreted and the report reviewed and electronically signed by: VIDA GAMBINO DO on Oct 01 2024 3:18PM EST [id number] Normal [facility] US Abdomenon 10-01-2024 * * *Final Report* * * DATE OF EXAM: Oct 01 2024 11:00AM [facility] 1016 US ASCITES SURVEY / PROCEDURE REASON: Hepatic cirrhosis, unspecified hepatic cirrhosis type, unspecified whether ascit * * * * Physician Interpretation * * * * EXAMINATION: US ASCITES SURVEY CLINICAL INFORMATION: 74 years old Female with Hepatic cirrhosis, unspecified hepatic cirrhosis type, unspecified whether ascites present TECHNIQUE: Targeted sonography of the abdomen was performed. Images were obtained and stored in a permanent archive. COMPARISON: CT abdomen pelvis 08/25/2022 RESULT/ DIVISION OF RADIOLOGY [facility]/01/2024 * * *Final Report* * * DATE OF EXAM: Oct 01 2024 11:00AM [facility] 1016 - US ASCITES SURVEY / PROCEDURE REASON: Hepatic cirrhosis, unspecified hepatic cirrhosis type, unspecified whether ascit * * * * Physician Interpretation * * * * EXAMINATION: US ASCITES SURVEY CLINICAL INFORMATION: 74 years old Female with Hepatic cirrhosis, unspecified hepatic cirrhosis type, unspecified whether ascites present TECHNIQUE: Targeted sonography of the abdomen was performed. Images were obtained and stored in a permanent archive. COMPARISON: CT abdomen pelvis 08/25/2022 RESULT/ IMPRESSION IMPRESSION: No abdominal ascites. Limited evaluation of the abdomen demonstrates cirrhotic liver morphology. Account Group Supervisor: RODERICK Transcribe Date/Time: Oct 01 2024 3:16P Dictated by : VIDA GAMBINO DO This examination was interpreted and the report reviewed and electronically signed by: VIDA GAMBINO DO on Oct 01 2024 3:18PM EST [facility] Radiology Study observation (narrative) [employer] US AbdomenOrdered By: Ccvirgilio lo on 10-01-2024 [facility] AFP SerPl-mCncon 09-27-2024 AFP [Mass/Vol] 3.61 ng/mL Normal <9.00 [facility] Comment on above: Order Comment: Speci men Type: BLOOD SPECIMENOrdering Facility: [facility] Address: [address] [place] [address] Result Comment: The Alpha-Fetoprotein test was performed using the Richy Amart[employer] DxI immunoenzymatic assay. Results obtained with different assay methods or kits cannot be used interchangeably. Performed By: #### 1 834-1 ####[facility] LABCLIA [id number] [place] [address] [place] Ammonia Plas-sCncon 09-28-19 25 Ammonia (P) [Moles/Vol] 25 umol/L Normal 11-51 C [facility] Comment on above: Order Comment: Speci men Type: BLOOD SPECIMENOrdering Facility: [facility] Address: [address] [place] [address] Performed By: #### 1 6362-6 ####[facility] LABCLIA [id number] [place] [address] [place] CBC W Auto Differential pane l (Bld)on 09-27-2024 Basophils (Bld) [#/Vol] 0.07 10*3/uL Normal <0.11 [facility] Comment on above: Order Comment: Speci men Type: BLOOD SPECIMENOrdering Facility: [facility] Address: [address] [place] [address] Performed By: #### 5 7021-8 ####[facility] [id number] [place] [address] [place] Basophils/100 WBC (Bld) 0.9 % Normal C [facility] Comment on above: Order Comment: Speci men Type: BLOOD SPECIMENOrdering Facility: [facility] Address: [address] [place] [address] Performed By: #### 5 7021-8 ####[facility]HA [id number] [place] [address] [place] Differential cell count method Nom (Bld) Auto Normal [facility] Comment on above: Order Comment: Speci men Type: BLOOD SPECIMENOrdering Facility: [facility] Address: [address] [place] [address] Performed By: #### 5 7021-8 ####[facility] [id number] [place] [address] [place] Eosinophils (Bld) [#/Vol] 0.13 10*3/uL Normal <0.46 [facility] Comment on above: Order Comment: Speci men Type: BLOOD SPECIMENOrdering Facility: [facility] Address: [address] [place] [address] Performed By: #### 5 7021-8 ####[facility] [id number] [place] [address] [place] Eosinophils/100 WBC (Bld) 1.8 % Normal [facility] Comment on above: Order Comment: Speci men Type: BLOOD SPECIMENOrdering Facility: [facility] Address: [address] [place] [address] Performed By: #### 5 7021-8 ####[facility] [id number] [place] [address] [place] Erythrocyte distribution width (RBC) [Ratio] 14.3 % Normal 11.5-15.0 [facility] Comment on above: Order Comment: Speci men Type: BLOOD SPECIMENOrdering Facility: [facility] Address: [address] [place] [address] Performed By: #### 5 7021-8 ####[facility] [id number] [place] [address] [place] Hematocrit (Bld) [Volume fraction] 35.0 % Low 36.0-46.0 [facility] Comment on above: Order Comment: Speci men Type: BLOOD SPECIMENOrdering Facility: [facility] Address: [address] [place] [address] Performed By: #### 5 7021-8 ####[facility] SYSTEM[facility] [id number] [place] [address] [place] Hemoglobin (Bld) [Mass/Vol] 11.4 g/dL Low 11.5-15.5 [facility] Comment on above: Order Comment: Speci men Type: BLOOD SPECIMENOrdering Facility: [facility] Address: [address] [place] [address] Performed By: #### 5 7021-8 ####[facility] [id number] [place] [address] [place] Immature granulocytes (Bld) [#/Vol] 10*3/uL Normal <0.10 [facility] Comment on above: Order Comment: Speci men Type: BLOOD SPECIMENOrdering Facility: [facility] Address: [address] [place] [address] Performed By: #### 5 7021-8 ####[facility] SYSTEM[facility] [id number] [place] [address] [place] Immature granulocytes/100 WBC (Bld) 0.3 % Normal [facility] Comment on above: Order Comment: Speci men Type: BLOOD SPECIMENOrdering Facility: [facility] Address: [address] [place] [address] Performed By: #### 5 7021-8 ####[facility] [id number] [place] [address] [place] Lymphocytes (Bld) [#/Vol] 1.88 10*3/uL Normal 1.00-4.00 [facility] Comment on above: Order Comment: Speci men Type: BLOOD SPECIMENOrdering Facility: [facility] Address: [address] [place] [address] Performed By: #### 5 7021-8 ####[facility] [id number] [place] [address] [place] Lymphocytes/100 WBC (Bld) 25.4 % Normal [facility] Comment on above: Order Comment: Speci men Type: BLOOD SPECIMENOrdering Facility: [facility] Address: [address] [place] [address] Performed By: #### 5 7021-8 ####[facility] [id number] [place] [address] [place] MCH (RBC) [Entitic mass] 26.8 pg Normal 26.0-34.0 [facility] Comment on above: Order Comment: Speci men Type: BLOOD SPECIMENOrdering Facility: [facility] Address: [address] [place] [address] Performed By: #### 5 7021-8 ####[facility] [id number] [place] [address] [place] MCHC (RBC) [Mass/Vol] 32.6 g/dL Normal 30.5-36.0 [facility] Comment on above: Order Comment: Speci men Type: BLOOD SPECIMENOrdering Facility: [facility] Address: [address] [place] [address] Performed By: #### 5 7021-8 ####[facility] [id number] [address] [place] MCV (RBC) [Entitic vol] 82.2 fL Normal 80.0-100.0 C [facility] Comment on above: Order Comment: Speci men Type: BLOOD SPECIMENOrdering Facility: [facility] Address: [address] [place] [address] Performed By: #### 5 7021-8 ####[facility] [id number] [place] [address] [place] Monocytes (Bld) [#/Vol] 0.54 10*3/uL Normal <0.87 [facility] Comment on above: Order Comment: Speci men Type: BLOOD SPECIMENOrdering Facility: [facility] Address: [address] [place] [address] Performed By: #### 5 7021-8 ####[facility] [id number] [place] [address] [place] Monocytes/100 WBC (Bld) 7.3 % Normal [facility] Comment on above: Order Comment: Speci men Type: BLOOD SPECIMENOrdering Facility: [facility] Address: [address] [place] [address] Performed By: #### 5 7021-8 ####[facility] [id number] [place] [address] [place] Neutrophils (Bld) [#/Vol] 4.76 10*3/uL Normal 1.45-7.50 [facility] Comment on above: Order Comment: Speci men Type: BLOOD SPECIMENOrdering Facility: [facility] Address: [address] [place] [address] Performed By: #### 5 7021-8 ####[facility] SYSTEM[facility] [id number] [place] [address] [place] Neutrophils/100 WBC (Bld) 64.3 % Normal [facility] Comment on above: Order Comment: Speci men Type: BLOOD SPECIMENOrdering Facility: [facility] Address: [address] [place] [address] Performed By: #### 5 7021-8 ####[facility] TAVOWNCLIA [id number] [place] [address] [place] Nucleated RBC (Bld) [#/Vol] 10*3/uL Normal <0.01 [facility] Comment on above: Order Comment: Speci men Type: BLOOD SPECIMENOrdering Facility: [facility] Address: [address] [place] [address] Performed By: #### 5 7021-8 ####[facility] SYSTEM[facility] [id number] [place] [address] [place] Nucleated RBC/100 WBC (Bld) [Ratio] 0.0 /100 WBC Normal [facility] Comment on above: Order Comment: Speci men Type: BLOOD SPECIMENOrdering Facility: [facility] Address: [address] [place] [address] Performed By: #### 5 7021-8 ####[facility] [id number] [place] [address] [place] Platelet mean volume (Bld) [Entitic vol] 10.9 fL Normal 9.0-12.7 [facility] Comment on above: Order Comment: Speci men Type: BLOOD SPECIMENOrdering Facility: [facility] Address: [address] [place] [address] Performed By: #### 5 7021-8 ####[facility] SYSTEML[facility] [id number] [place] [address] [place] Platelets (Bld) [#/Vol] 234 10*3/uL Normal 150-400 [facility] Comment on above: Order Comment: Speci men Type: BLOOD SPECIMENOrdering Facility: [facility] Address: [address] [place] [address] Performed By: #### 5 7021-8 ####[facility] [id number] [place] [address] [place] RBC (Bld) [#/Vol] 4.26 10*6/uL Normal 3.90-5.20 [facility] Comment on above: Order Comment: Speci men Type: BLOOD SPECIMENOrdering Facility: [facility] Address: [address] [place] [address] Performed By: #### 5 7021-8 ####[facility] [id number] [place] [address] [place] WBC (Bld) [#/Vol] 7.40 10*3/uL Normal 3.70-11.00 [facility] Comment on above: Order Comment: Speci men Type: BLOOD SPECIMENOrdering Facility: [facility] Address: [address] [place] [address] Performed By: #### 5 7021-8 ####[facility] [id number] [place] [address] [place] CEA SerPl-ncon 09-27-2024 Carcinoembryonic Ag [Mass/Vol] 1.3 ng/mL Normal <=2.9 [facility] Comment on above: Order Comment: [facility] Type: BLOOD SPECIMENOrdering Facility: [facility] Address: [address] [place] [address] Result Comment: Carc inoembryonic antigen test is used as an aid in monitoring response to treatment or recurrence in patients with established colorectal, breast, lung, prostatic, pancreatic, and ovarian carcinomas. Clinical correlation is required. The Carcinoembryonic antigen test was performed using the Richy [place] [employer] DXI paramagnetic particle chemiluminescent immunoassay method. Results obtained with different assay methods or kits cannot be used interchangeably. Performed By: #### 2 039-6 ####[facility] LABCLIA [id number] [place] [address] [place] Hepatic function 2000 panelo n 09-27-2024 Albumin [Mass/Vol] g/dL Low 3.9-4.9 [facility] Comment on above: Order Comment: Speci men Type: BLOOD SPECIMENOrdering Facility: [facility] Address: [address] [place] [address] Performed By: #### 2 4325-3 ####[facility] MILLTOWNCLIA [id number] [place] [address] [place] ALP [Catalytic activity/Vol] U/L Low 34-123 [facility] Comment on above: Order Comment: Speci men Type: BLOOD SPECIMENOrdering Facility: [facility] Address: [address] [place] [address] Performed By: #### 2 4325-3 ####[facility]ERSBURGWNCLIA [id number] [place] [address] [place] ALT [Catalytic activity/Vol] 15 U/L Normal 7-38 [facility] Comment on above: Order Comment: Speci men Type: BLOOD SPECIMENOrdering Facility: [facility] Address: [address] [place] [address] Performed By: #### 2 4325-3 ####[facility] PET[facility]GWNCLIA [id number] [place] [address] [place] AST [Catalytic activity/Vol] 29 U/L Normal 13-35 [facility] Comment on above: Order Comment: Speci men Type: BLOOD SPECIMENOrdering Facility: [facility] Address: [address] [place] [address] Performed By: #### 2 4325-3 ####[facility] MILLTOWNCLIA [id number] [place] [address] [place] Bilirubin [Mass/Vol] mg/dL Low 0.2-1.3 [facility] Comment on above: Order Comment: Speci men Type: BLOOD SPECIMENOrdering Facility: [facility] Address: [address] [place] [address] Performed By: #### 2 4325-3 ####[facility] MILLWNCLIA [id number] [place] [address] [place] Bilirubin.conjugated [Mass/Vol] mg/dL Normal <0.3 [facility] Comment on above: Order Comment: Speci men Type: BLOOD SPECIMENOrdering Facility: [facility] Address: [address] [place] [address] Performed By: #### 2 4325-3 ####[facility]EST YARMOUTHNCLI [id number] [address] [place] Protein [Mass/Vol] g/dL Low 6.3-8.0 [facility] Comment on above: Order Comment: Specrm men Type: BLOOD SPECIMENOrdering Facility: [facility] Address: [address] [place] [address] Performed By: #### 2 4325-3 ####[facility]GWNCLIA [id number] [address] OF [facility] CNOVon 09-26-2024 CNOV Office Visit (GSTNOR ) -------- LAISHA WALKER ([id number]) 1950 F Date Time Provider Department 09/26/24 11:30 AM ADRIA ANSARI GSTNOR During your visit today, we recorded the following information about you: Pulse Blood pressure Weight Height 73/minute 120/62 89.4 kg 1.575 m Dariela Coulter PA-C 09/26/2024 4:06 PM Signed CHIEF COMPLAINT: Patient presents with: EUS eval This consult was requested by No ref. provider found for an opinion regarding cirrhosis and elevated CA19-9. My final recommendations will be communicated to the requesting health care provider by way of the shared medical record for internal providers or letter via the [employer] for external providers. HPI: Laisha Walker is a 74 year old female who presents for EUS eval. Was told she had fatty liver 20+ years ago. Over the last few months, began having increasing dull pain, nausea, early satiety, fatigue, and loss of appetite. Food intake will slightly decrease abdominal pain and nausea. Really only tolerating peanut butter and mashed potatoes. Notes intermittent BRBPR when hemorrhoids get irritated. Denies weight loss, diarrhea, melena. Hx of duodenal ulcer and UGIB in 05/2024 evaluated with EGD - surgical intervention. 05/22/24 - EGD Latest Reference Range AND Units 04/15/20 10:14 05/06/20 10:36 08/05/20 13:56 CA19-9 <36 U/mL 90 (H) 101 (H) 79 (H) (H): Data is abnormally high Record Review: [facility] / Outside records reviewed. PAST MEDICAL HISTORY Diagnosis Date Atrial fibrillation (HCC) SEES DR. BARRERA Carotid stenosis, asymptomatic CVA (cerebral vascular accident) (HCC) post op after 2017 bilateral knee replacements - per pt was told by neurology that it was a questionable stroke Diabetes mellitus type 2 in obese 01/22/2023 DVT (deep venous thrombosis) (HCC) post op Dysthymic disorder Depression (non-psychotic) Esophageal reflux Essential hypertension, benign Goiter, unspecified Goiter Liver cirrhosis (HCC) Macular degeneration (senile) of retina, unspecified Macular degeneration Other and unspecified hyperlipidemia Renal carcinoma, right (HCC) S/P placement of cardiac pacemaker 01/25/2023 Patient underwent implantation of [place] permanent pacemaker with right atrial and right ventricular apex leads with Dr. Steele on 01/24/2023. Type 2 diabetes mellitus (HCC) PAST SURGICAL HISTORY Procedure Laterality Date ANESTH,PACEMAKER INSERTION APPENDECTOMY 1962 RUPTURED APPENDIX ARTHRP KNE CONDYLEANDPLATU MEDIALANDLAT COMPARTMENTS Bilateral 2017 CHOLECYSTECTOMY 1996 Cholecystectomy COLONOSCOPY [facility] EGD EUS 06/11/2020 benign leiomyoma GE junction, mild antral gastropathy, fatty pancreas, likely cirrhotic liver, prominent dilated portal vein NEPHRECTOMY PARTIAL Right 05/18/2019 robotic PAST SURGICAL HISTORY OF 07/15/1999 LEFT SHOULDER PAST SURGICAL HISTORY OF Left 2018 REPAIR OF LEFT KNEE FRACTURE TOTAL ABDOMINAL HYSTERECT W/WO RMVL TUBE OVARY 1985 Hysterectomy, JERRY Allergies: ALLERGIES Allergen Reactions Gabapentin Other: See Comments Dizziness Accupril [Quinapril* Other: See Comments Bextra [Valdecoxib] GI Upset Celebrex [Celecoxib] GI Upset Codeine Other: See Comments Entex La [Phenyleph* Other: See Comments Glucophage [Metform* Other: See Comments Lipitor [Atorvastat* Other: See Comments Lodine [Etodolac] GI Upset Naprosyn [Naproxen] Other: See Comments Nsaids (Non-Steroid* Other: See Comments Pravachol [Pravasta* Other: See Comments Worsening abdominal pain Sulfa (Sulfonamide * GI Upset Ultracet [Tramadol-* Other: See Comments Vicodin [Hydrocodon* Other: See Comments Vioxx [Rofecoxib] Other: See Comments Zocor [Simvastatin] Other: See Comments Medications: glipiZIDE (GLUCOTROL XL) 10mg 24 hr tablet Take 1 tablet by mouth two times a day. warfarin (COUMADIN) 2.5 mg tablet TAKE 1 TABLET BY MOUTH on Tuesday, Tuesday, Tuesday, and ; 2 tablets together to = 5mg on Tuesday, Tuesday and Tuesday at bedtdime; dose changes often, please give extra tablets rosuvastatin (CRESTOR) 20 mg tablet Take 1 tablet by mouth once daily. pantoprazole DR (PROTONIX) 40 mg tablet Take 1 tablet by mouth every 12 hours. blood sugar diagnostic (BLOOD GLUCOSE TEST) test strip Test blood sugar(s) 1` times daily. Dx: Type 2 DM - Uncontrolled E11.65 Insulin: No metoprolol tartrate, short acting, (LOPRESSOR) 50 mg tablet Take 50 mg by mouth two times a day. losartan (COZAAR) 25 mg tablet Take 0.5 tablets by mouth every afternoon. docusate sodium (STOOL SOFTENER ORAL) Take by mouth as needed. OTC Lancets lancets Test blood sugar(s) 1` times daily. Dx: Type 2 DM - Uncontrolled E11.65 Insulin: No hydrocortisone (ANUSOL-HC) 2.5 % rectal cream by RECTAL route twice daily. multivitamin (MULTIPLE VITAMINS ORAL) Take by mouth. lorata (more content not included)... Normal [facility] 09-26-2024 CNPN Telephone (GSTNOR) -------- LAISHA WALKER ([id number]) 1950 F Date Time Provider Department 09/26/24 ADRIA ANSARI GSTNOR During your visit today, we recorded the following information about you: Bassam Lancaster 09/26/2024 12:07 PM Signed Bi Quesada This patient will need scheduled at [facility] for her Colonoscopy. Thank you. Allergies As of Date: 09/26/2024 Noted Allergy Reaction GABAPENTIN 11/03/2021 14 - Other: See Comments Comments: Dizziness ACCUPRIL (QUINAPRIL HCL) 07/05/2005 14 - Other: See Comments BEXTRA (VALDECOXIB) 07/05/2005 8 - GI Upset CELEBREX (CELECOXIB) 07/05/2005 8 - GI Upset Comments: CODEINE 07/05/2005 14 - Other: See Comments ENTEX LA (PHENYLEPHRINE-GUAIFENES *07/05/2005 14 - Other: See Comments GLUCOPHAGE (METFORMIN HCL) 07/05/2005 14 - Other: See Comments LIPITOR (ATORVASTATIN CALCIUM) 07/05/2005 14 - Other: See Comments LODINE (ETODOLAC) 07/05/2005 8 - GI Upset NAPROSYN (NAPROXEN) 07/05/2005 14 - Other: See Comments NSAIDS (NON-STEROIDAL ANTI-INFLAM*12/06/2019 14 - Other: See Comments PRAVACHOL (PRAVASTATIN SODIUM) 07/05/2005 14 - Other: See Comments Comments: Worsening abdominal pain SULFA (SULFONAMIDE ANTIBIOTICS) 07/08/2014 8 - GI Upset ULTRACET (TRAMADOL-ACETAMINOPHEN) 07/05/2005 14 - Other: See Comments VICODIN (HYDROCODONE-ACETAMINOPH E*07/05/2005 14 - Other: See Comments VIOXX (ROFECOXIB) 07/05/2005 14 - Other: See Comments ZOCOR (SIMVASTATIN) 07/05/2005 14 - Other: See Comments Date Reviewed: 09/26/2024 Reviewed by: Claudia Ang MA - Fully Assessed Reason for Visit: Orders [681] Prescriptions as of 10/08/2024 - pantoprazole DR (PROTONIX) 40 mg tablet Take 1 tablet by mouth every 12 hours. - glipiZIDE (GLUCOTROL XL) 10mg 24 hr tablet Take 1 tablet by mouth two times a day. - pioglitazone (ACTOS) 15 mg tablet Take 1 tablet by mouth once daily. - warfarin (COUMADIN) 2.5 mg tablet TAKE 1 TABLET BY MOUTH on Tuesday, Tuesday, Tuesday, and ; 2 tablets together to = 5mg on Tuesday, Tuesday and Tuesday at bedtdime; dose changes often, please give extra tablets - rosuvastatin (CRESTOR) 20 mg tablet Take 1 tablet by mouth once daily. - blood sugar diagnostic (BLOOD GLUCOSE TEST) test strip Test blood sugar(s) 1` times daily. Dx: Type 2 DM - Uncontrolled E11.65 Insulin: No - metoprolol tartrate, short acting, (LOPRESSOR) 50 mg tablet Take 50 mg by mouth two times a day. - losartan (COZAAR) 25 mg tablet Take 0.5 tablets by mouth every afternoon. - docusate sodium (STOOL SOFTENER ORAL) Take by mouth as needed. OTC - Lancets lancets Test blood sugar(s) 1` times daily. Dx: Type 2 DM - Uncontrolled E11.65 Insulin: No - hydrocortisone (ANUSOL-HC) 2.5 % rectal cream by RECTAL route twice daily. - multivitamin (MULTIPLE VITAMINS ORAL) Take by mouth. - alcohol swabs (ALCOHOL PREP PADS) Apply 1 application to affected area once daily. - loratadine (CLARITIN) 10 mg tablet Take 10 mg by mouth once daily. - acetaminophen (TYLENOL) 325 mg tablet Take 500 mg by mouth. 2 TABLETS AT HS Problem List As Of Date 09/26/2024 Noted Resolved LUMBAGO [M54.50] 07/06/2005 ENTHESOPATHY OF HIP [M76.899] 07/06/2005 SPRAIN LUMBAR REGION [S33.5XXA] 07/06/2005 Dyslipidemia associated with type 2 diabetes me* Paroxysmal atrial fibrillation (HCC) [I48.0] 01/15/2023 Carotid stenosis, asymptomatic [I65.29] Right renal mass [N28.89] 05/18/2019 Obesity, Class II, BMI 35-39.9 [E66.812] 05/19/2019 Renal carcinoma, right (HCC) [C64.1] 05/20/2019 01/21/2023 Other cirrhosis of liver (HCC) [K74.69] 05/23/2020 Stage 3a chronic kidney disease (HCC) [N18.31] 08/10/2022 Obesity, Class I, BMI 30-34.9 [E66.811] 11/19/2022 01/22/2023 Anticoagulant long-term use [Z79.01] 11/24/2022 Third degree atrioventricular block (HCC) [I44.*01/22/2023 Bradycardia [R00.1] 01/22/2023 At risk for stroke [Z91.89] 01/22/2023 Bilateral carotid artery stenosis [I65.23] 10/10/2016 Diagnosed: 01/22/2023 Gastroesophageal reflux disease [K21.9] 01/22/2023 Diagnosed: 01/22/2023 Hyperlipidemia [E78.5] 01/22/2023 Diagnosed: 01/22/2023 Recurrent falls [R29.6] 01/22/2023 Diagnosed: 01/22/2023 Orthostatic hypotension [I95.1] 01/17/2023 Diagnosed: 01/22/2023 Holley-Mary syncope [I45.9] 01/22/2023 Diabetes mellitus type 2 in obese (HCC) [E11.6*01/22/2023 S/P placement of cardiac pacemaker [Z95.0] 01/25/2023 Encounter Status:Closed by BASSAM LANCASTER on 10/08/24 [facility] Natasha 09-19-2024 GLENN Telephone (GSTNOR) -------- LAISHA [id number]) 1950 F Date Time Provider Department 09/19/24 ADRIA ANSARI During your visit today, we recorded the following information about you: Allergies As of Date: 09/19/2024 Noted Allergy Reaction GABAPENTIN 11/03/2021 14 - Other: See Comments Comments: Dizziness ACCUPRIL (QUINAPRIL HCL) 07/05/2005 14 - Other: See Comments BEXTRA (VALDECOXIB) 07/05/2005 8 - GI Upset CELEBREX (CELECOXIB) 07/05/2005 8 - GI Upset Comments: CODEINE 07/05/2005 14 - Other: See Comments ENTEX LA (PHENYLEPHRINE-GUAIFENES *07/05/2005 14 - Other: See Comments GLUCOPHAGE (METFORMIN HCL) 07/05/2005 14 - Other: See Comments LIPITOR (ATORVASTATIN CALCIUM) 07/05/2005 14 - Other: See Comments LODINE (ETODOLAC) 07/05/2005 8 - GI Upset NAPROSYN (NAPROXEN) 07/05/2005 14 - Other: See Comments NSAIDS (NON-STEROIDAL ANTI-INFLAM*12/06/2019 14 - Other: See Comments PRAVACHOL (PRAVASTATIN SODIUM) 07/05/2005 14 - Other: See Comments Comments: Worsening abdominal pain SULFA (SULFONAMIDE ANTIBIOTICS) 07/08/2014 8 - GI Upset ULTRACET (TRAMADOL-ACETAMINOPHEN) 07/05/2005 14 - Other: See Comments VICODIN (HYDROCODONE-ACETAMINOPH E*07/05/2005 14 - Other: See Comments VIOXX (ROFECOXIB) 07/05/2005 14 - Other: See Comments ZOCOR (SIMVASTATIN) 07/05/2005 14 - Other: See Comments Date Reviewed: 08/24/2024 Reviewed by: Cheryl Harrison MA - Fully Assessed Prescriptions as of 09/19/2024 - glipiZIDE (GLUCOTROL XL) 10mg 24 hr tablet Take 1 tablet by mouth two times a day. - pioglitazone (ACTOS) 15 mg tablet Take 1 tablet by mouth once daily. - warfarin (COUMADIN) 2.5 mg tablet TAKE 1 TABLET BY MOUTH on Tuesday, Tuesday, Tuesday, and ; 2 tablets together to = 5mg on Tuesday, Tuesday and Tuesday at bedtdime; dose changes often, please give extra tablets - rosuvastatin (CRESTOR) 20 mg tablet Take 1 tablet by mouth once daily. - pantoprazole DR (PROTONIX) 40 mg tablet Take 1 tablet by mouth every 12 hours. - blood sugar diagnostic (BLOOD GLUCOSE TEST) test strip Test blood sugar(s) 1` times daily. Dx: Type 2 DM - Uncontrolled E11.65 Insulin: No - metoprolol tartrate, short acting, (LOPRESSOR) 50 mg tablet Take 50 mg by mouth two times a day. - losartan (COZAAR) 25 mg tablet Take 0.5 tablets by mouth every afternoon. - docusate sodium (STOOL SOFTENER ORAL) Take by mouth as needed. OTC - Lancets lancets Test blood sugar(s) 1` times daily. Dx: Type 2 DM - Uncontrolled E11.65 Insulin: No - hydrocortisone (ANUSOL-HC) 2.5 % rectal cream by RECTAL route twice daily. - multivitamin (MULTIPLE VITAMINS ORAL) Take by mouth. - alcohol swabs (ALCOHOL PREP PADS) Apply 1 application to affected area once daily. - loratadine (CLARITIN) 10 mg tablet Take 10 mg by mouth once daily. - acetaminophen (TYLENOL) 325 mg tablet Take 500 mg by mouth. 2 TABLETS AT HS Problem List As Of Date 09/19/2024 Noted Resolved LUMBAGO [M54.50] 07/06/2005 ENTHESOPATHY OF HIP [M76.899] 07/06/2005 SPRAIN LUMBAR REGION [S33.5XXA] 07/06/2005 Dyslipidemia associated with type 2 diabetes me* Paroxysmal atrial fibrillation (HCC) [I48.0] 01/15/2023 Carotid stenosis, asymptomatic [I65.29] Right renal mass [N28.89] 05/18/2019 Obesity, Class II, BMI 35-39.9 [E66.812] 05/19/2019 Renal carcinoma, right (HCC) [C64.1] 05/20/2019 01/21/2023 Other cirrhosis of liver (HCC) [K74.69] 05/23/2020 Stage 3a chronic kidney disease (HCC) [N18.31] 08/10/2022 Obesity, Class I, BMI 30-34.9 [E66.811] 11/19/2022 01/22/2023 Anticoagulant long-term use [Z79.01] 11/24/2022 Third degree atrioventricular block (HCC) [I44.*01/22/2023 Bradycardia [R00.1] 01/22/2023 At risk for stroke [Z91.89] 01/22/2023 Bilateral carotid artery stenosis [I65.23] 10/10/2016 Diagnosed: 01/22/2023 Gastroesophageal reflux disease [K21.9] 01/22/2023 Diagnosed: 01/22/2023 Hyperlipidemia [E78.5] 01/22/2023 Diagnosed: 01/22/2023 Recurrent falls [R29.6] 01/22/2023 Diagnosed: 01/22/2023 Orthostatic hypotension [I95.1] 01/17/2023 Diagnosed: 01/22/2023 Holley-Mary syncope [I45.9] 01/22/2023 Diabetes mellitus type 2 in obese (HCC) [E11.6*01/22/2023 S/P placement of cardiac pacemaker [Z95.0] 01/25/2023 Encounter Status:Closed by KATHERIN ANDRE on 09/19/24 Normal [facility] AFP, Tumor Markeron 09-17-19 AFP TUMOR FLAKO 3.2 ng/mL Normal 0.0-9.2 [facility] Comment on above: Order Comment: Test( s) 305940-Oaeddv, Serum or Plasmawas developed and its performance characteristicsdetermined by [facility]. It has not been cleared or approvedby the Food and Drug Administration.N Result Comment: [facility] Electrochemiluminescence Immunoassay(ECLIA)Values obtained with different assay methods or kits cannotbe used interchangeably. Results cannot be interpreted asabsolute evidence of the presence or absence of malignantdisease.This test is not interpretable in females. Performed By: #### L 300.3900, L501.4700, L3130.0010, L3890.6006, L501.9985, L3300.0100, L501.5101, L500.4100, L501.9520, L3100.2300, L3300.1200, L3100.3425, L504.2610, L800.1280, L3200.1100, L503.6030, L3400.0700, L100.0100, L506.0400, L3300.0700, L3100.5450, L3100.5020, L500.4050, L803.2200, L3410.9992, L501.6710, L3000.0375, L503.6550 ####[facility] [address] [place], [place], [id number] ANCAon 09-16-2024 Atypical pANCA <1:20 Normal Neg:<1:20 [facility] Comment on above: Order Comment: Test( s) 766168-Lgoruq, Serum or Plasmawas developed and its performance characteristicsdetermined by [facility]. It has not been cleared or approvedby the Food and Drug Administration. Result Comment: The atypical pANCA pattern has been observed in asignificant percentage of patients with ulcerative colitis,primary sclerosing cholangitis and autoimmune hepatitis. Performed By: #### L 300.3900, L501.4700, L3130.0010, L3890.6006, L501.9985, L3300.0100, L501.5101, L500.4100, L501.9520, L3100.2300, L3300.1200, L3100.3425, L504.2610, L800.1280, L3200.1100, L503.6030, L3400.0700, L100.0100, L506.0400, L3300.0700, L3100.5450, L3100.5020, L500.4050, L803.2200, L3410.9992, L501.6710, L3000.0375, L503.6550 ####[facility] [address] [place], [address] Cytoplasmic Ab <1:20 Normal Neg:<1:20 [facility] Comment on above: Order Comment: Test( s) [id number]-Phoxzi, Serum or Plasmawas developed and its performance characteristicsdetermined by [facility]. It has not been cleared or approvedby the Food and Drug Administration. Performed By: #### L 300.3900, L501.4700, L3130.0010, L3890.6006, L501.9985, L3300.0100, L501.5101, L500.4100, L501.9520, L3100.2300, L3300.1200, L3100.3425, L504.2610, L800.1280, L3200.1100, L503.6030, L3400.0700, L100.0100, L506.0400, L3300.0700, L3100.5450, L3100.5020, L500.4050, L803.2200, L3410.9992, L501.6710, L3000.0375, L503.6550 ####[facility] [address] [place], [address] Perinuclear Ab. <1:20 Normal Neg:<1:20 [facility] Comment on above: Order Comment: Test( s) 713397-Hzofrh, Serum or Plasmawas developed and its performance characteristicsdetermined by [facility]. It has not been cleared or approvedby the Food and Drug Administration. Result Comment: The presence of positive fluorescence exhibiting P-ANCA orC-ANCA patterns alone is not specific for the diagnosis ofWegener's Granulomatosis (WG) or microscopic polyangiitis.Decisions about treatment should not be based solely onANCA IFA results. The International ANCA Group Consensusrecommends follow up testing of positive sera with both FL-3 and MPO-ANCA enzyme immunoassays. As many as 5% serumsamples are positive only by EIA. Ref. AM J Clin Dxhksi1445;111:507-513. Performed By: #### L 300.3900, L501.4700, L3130.0010, L3890.6006, L501.9985, L3300.0100, L501.5101, L500.4100, L501.9520, L3100.2300, L3300.1200, L3100.3425, L504.2610, L800.1280, L3200.1100, L503.6030, L3400.0700, L100.0100, L506.0400, L3300.0700, L3100.5450, L3100.5020, L500.4050, L803.2200, L3410.9992, L501.6710, L3000.0375, L503.6550 ####[facility] [address] [place], [place], [address] Anti-Smooth Muscle ABSon ANTISMOOTH MUSC 5 Units Normal 0-19 [facility] Comment on above: Order Comment: Test( s) 696478-Mgxvss, Serum or Plasmawas developed and its performance characteristicsdetermined by [facility]. It has not been cleared or approvedby the Food and Drug Administration. Result Comment: Nega tive 0 - 19 Weak positive 20 - 30 Moderate to strong positive >30 Actin Antibodies are found in 52-85% of patients with autoimmune hepatitis or chronic active hepatitis and in 22% of patients with primary biliary cirrhosis. Performed By: #### L 300.3900, L501.4700, L3130.0010, L3890.6006, L501.9985, L3300.0100, L501.5101, L500.4100, L501.9520, L3100.2300, L3300.1200, L3100.3425, L504.2610, L800.1280, L3200.1100, L503.6030, L3400.0700, L100.0100, L506.0400, L3300.0700, L3100.5450, L3100.5020, L500.4050, L803.2200, L3410.9992, L501.6710, L3000.0375, L503.6550 ####[facility] [address] [place], [place], [id number] Carbohydrate AG 19-9on 09-16 CA 19-9 53 U/mL High 0-35 [facility] Comment on above: Order Comment: Test( s) [id number]-Skbaym, Serum or Plasmawas developed and its performance characteristicsdetermined by [facility]. It has not been cleared or approvedby the Food and Drug Administration. Result Comment: [facility] Electrochemiluminescence Immunoassay(ECLIA)Values obtained with different assay methods or kits cannotbe used interchangeably. Results cannot be interpreted asabsolute evidence of the presence or absence of malignantdisease. Performed By: #### L 300.3900, L501.4700, L3130.0010, L3890.6006, L501.9985, L3300.0100, L501.5101, L500.4100, L501.9520, L3100.2300, L3300.1200, L3100.3425, L504.2610, L800.1280, L3200.1100, L503.6030, L3400.0700, L100.0100, L506.0400, L3300.0700, L3100.5450, L3100.5020, L500.4050, L803.2200, L3410.9992, L501.6710, L3000.0375, L503.6550 ####[facility] [address] [place], [address] Carcinoembryonic Antigenon 0 - CEA 1.7 ng/mL Normal 0.0-4.7 [facility] Comment on above: Order Comment: Test( s) [id number]-Aexquh, Serum or Plasmawas developed and its performance characteristicsdetermined by [facility]. It has not been cleared or approvedby the Food and Drug Administration. Result Comment: Nons mokers <3.9 Smokers <5.6[facility] Electrochemiluminescence Immunoassay(ECLIA)Values obtained with different assay methods or kitscannot be used interchangeably. Results cannot beinterpreted as absolute evidence of the presence orabsence of malignant disease. Performed By: #### L 300.3900, L501.4700, L3130.0010, L3890.6006, L501.9985, L3300.0100, L501.5101, L500.4100, L501.9520, L3100.2300, L3300.1200, L3100.3425, L504.2610, L800.1280, L3200.1100, L503.6030, L3400.0700, L100.0100, L506.0400, L3300.0700, L3100.5450, L3100.5020, L500.4050, L803.2200, L3410.9992, L501.6710, L3000.0375, L503.6550 ####[facility] [address] [place], [place], [id number] Ceruloplasminon 09-16-2024 CERULOPLASMIN 24.3 mg/dL Normal 19.0-39.0 [facility] Comment on above: Order Comment: Test( s) [id number]-Qzniqm, Serum or Plasmawas developed and its performance characteristicsdetermined by [facility]. It has not been cleared or approvedby the Food and Drug Administration. Performed By: #### L 300.3900, L501.4700, L3130.0010, L3890.6006, L501.9985, L3300.0100, L501.5101, L500.4100, L501.9520, L3100.2300, L3300.1200, L3100.3425, L504.2610, L800.1280, L3200.1100, L503.6030, L3400.0700, L100.0100, L506.0400, L3300.0700, L3100.5450, L3100.5020, L500.4050, L803.2200, L3410.9992, L501.6710, L3000.0375, L503.6550 ####[facility] [address] [place], [place], [id number] Copper, Serum or Plasmaon COPPER, SERUM 103 ug/dL Normal 80-158 [facility] Comment on above: Order Comment: Test( s) [id number]-Wyfmii, Serum or Plasmawas developed and its performance characteristicsdetermined by [facility]. It has not been cleared or approvedby the Food and Drug Administration. Result Comment: Dete ction Limit = 5Performed at: [facility] [address] [id number] Director: Josafat El PhD, Phone: [phone] at: [address] [id number] Director: Jenny Cm MD, Phone: [phone] Performed By: #### L 300.3900, L501.4700, L3130.0010, L3890.6006, L501.9985, L3300.0100, L501.5101, L500.4100, L501.9520, L3100.2300, L3300.1200, L3100.3425, L504.2610, L800.1280, L3200.1100, L503.6030, L3400.0700, L100.0100, L506.0400, L3300.0700, L3100.5450, L3100.5020, L500.4050, L803.2200, L3410.9992, L501.6710, L3000.0375, L503.6550 ####[facility] [address] [place], [address] Hepatitis Panel Acuteon 09-04 COMMENT Comment Normal . [facility] Comment on above: Order Comment: Test( s) 401880-Pbmyrg, Serum or Plasmawas developed and its performance characteristicsdetermined by [employer]. It has not been cleared or approvedby the Food and Drug Administration. Result Comment: Not infected with HCV unless early or acute infection issuspected (which may be delayed in an immunocompromisedindividual), or other evidence exists to indicate HCVinfection. Performed By: #### L 300.3900, L501.4700, L3130.0010, L3890.6006, L501.9985, L3300.0100, L501.5101, L500.4100, L501.9520, L3100.2300, L3300.1200, L3100.3425, L504.2610, L800.1280, L3200.1100, L503.6030, L3400.0700, L100.0100, L506.0400, L3300.0700, L3100.5450, L3100.5020, L500.4050, L803.2200, L3410.9992, L501.6710, L3000.0375, L503.6550 ####[facility] [address] [facility]. [place], [place], [id number] HEP B CORE,IgM Negative Normal Negative [facility] Comment on above: Order Comment: Test( s) 139862-Qbuzou, Serum or Plasmawas developed and its performance characteristicsdetermined by [employer]. It has not been cleared or approvedby the Food and Drug Administration. Performed By: #### L 300.3900, L501.4700, L3130.0010, L3890.6006, L501.9985, L3300.0100, L501.5101, L500.4100, L501.9520, L3100.2300, L3300.1200, L3100.3425, L504.2610, L800.1280, L3200.1100, L503.6030, L3400.0700, L100.0100, L506.0400, L3300.0700, L3100.5450, L3100.5020, L500.4050, L803.2200, L3410.9992, L501.6710, L3000.0375, L503.6550 ####[facility] [address] [facility]. [place], [place], [id number] HEP B SURF AG Negative Normal Negative [facility] Comment on above: Order Comment: Test( s) 053125-Kvutep, Serum or Plasmawas developed and its performance characteristicsdetermined by [employer]. It has not been cleared or approvedby the Food and Drug Administration. Performed By: #### L 300.3900, L501.4700, L3130.0010, L3890.6006, L501.9985, L3300.0100, L501.5101, L500.4100, L501.9520, L3100.2300, L3300.1200, L3100.3425, L504.2610, L800.1280, L3200.1100, L503.6030, L3400.0700, L100.0100, L506.0400, L3300.0700, L3100.5450, L3100.5020, L500.4050, L803.2200, L3410.9992, L501.6710, L3000.0375, L503.6550 ####[facility] [address] [facility] [place], [address] HEP C VIRUS AB Non-Reactive Normal Non Reactive [facility] Comment on above: Order Comment: Test( s) 726276-Ywpmhb, Serum or Plasmawas developed and its performance characteristicsdetermined by [employer]. It has not been cleared or approvedby the Food and Drug Administration. Performed By: #### L 300.3900, L501.4700, L3130.0010, L3890.6006, L501.9985, L3300.0100, L501.5101, L500.4100, L501.9520, L3100.2300, L3300.1200, L3100.3425, L504.2610, L800.1280, L3200.1100, L503.6030, L3400.0700, L100.0100, L506.0400, L3300.0700, L3100.5450, L3100.5020, L500.4050, L803.2200, L3410.9992, L501.6710, L3000.0375, L503.6550 ####[facility] [address] [facility] [place], [address] HEPATITIS A-IgM Negative Normal Negative [facility] Comment on above: Order Comment: Test( s) 504394-Pkzrih, Serum or Plasmawas developed and its performance characteristicsdetermined by [employer]. It has not been cleared or approvedby the Food and Drug Administration. Result Comment: A ne gative anti-HAV IgM result suggests no recent orcurrent HAV infection. Performed By: #### L 300.3900, L501.4700, L3130.0010, L3890.6006, L501.9985, L3300.0100, L501.5101, L500.4100, L501.9520, L3100.2300, L3300.1200, L3100.3425, L504.2610, L800.1280, L3200.1100, L503.6030, L3400.0700, L100.0100, L506.0400, L3300.0700, L3100.5450, L3100.5020, L500.4050, L803.2200, L3410.9992, L501.6710, L3000.0375, L503.6550 ####[facility] [address] [place], [address] MARSHALL + Protein Elect, Serumon 09-16-2024 Albumin [Mass/Vol] 3.7 g/dL Normal 2.9-4.4 [facility] Comment on above: Order Comment: Test( s) 790972-Aeumqr, Serum or Plasmawas developed and its performance characteristicsdetermined by [employer]. It has not been cleared or approvedby the Food and Drug Administration.N Performed By: #### L 300.3900, L501.4700, L3130.0010, L3890.6006, L501.9985, L3300.0100, L501.5101, L500.4100, L501.9520, L3100.2300, L3300.1200, L3100.3425, L504.2610, L800.1280, L3200.1100, L503.6030, L3400.0700, L100.0100, L506.0400, L3300.0700, L3100.5450, L3100.5020, L500.4050, L803.2200, L3410.9992, L501.6710, L3000.0375, L503.6550 ####[facility] [address] [place], [address] Albumin/Globulin [Mass ratio] 1.1 {ratio} Normal 0.7-1.7 [facility] Comment on above: Order Comment: Test( s) 002228-Cxsbad, Serum or Plasmawas developed and its performance characteristicsdetermined by [employer]. It has not been cleared or approvedby the Food and Drug Administration.N Performed By: #### L 300.3900, L501.4700, L3130.0010, L3890.6006, L501.9985, L3300.0100, L501.5101, L500.4100, L501.9520, L3100.2300, L3300.1200, L3100.3425, L504.2610, L800.1280, L3200.1100, L503.6030, L3400.0700, L100.0100, L506.0400, L3300.0700, L3100.5450, L3100.5020, L500.4050, L803.2200, L3410.9992, L501.6710, L3000.0375, L503.6550 ####[facility] [address] [place], [place], [id number] SDTRI-8-DNSV 0.3 g/dL Normal 0.0-0.4 [facility] Comment on above: Order Comment: Test( s) 180178-Rrcpsl, Serum or Plasmawas developed and its performance characteristicsdetermined by [employer]. It has not been cleared or approvedby the Food and Drug Administration.N Performed By: #### L 300.3900, L501.4700, L3130.0010, L3890.6006, L501.9985, L3300.0100, L501.5101, L500.4100, L501.9520, L3100.2300, L3300.1200, L3100.3425, L504.2610, L800.1280, L3200.1100, L503.6030, L3400.0700, L100.0100, L506.0400, L3300.0700, L3100.5450, L3100.5020, L500.4050, L803.2200, L3410.9992, L501.6710, L3000.0375, L503.6550 ####[facility] [address] [facility]. [place], [place], [address] GVWAH-7-LZKX 0.9 g/dL Normal 0.4-1.0 [facility] Comment on above: Order Comment: Test( s) 602744-Txikfz, Serum or Plasmawas developed and its performance characteristicsdetermined by [employer]. It has not been cleared or approvedby the Food and Drug Administration.N Performed By: #### L 300.3900, L501.4700, L3130.0010, L3890.6006, L501.9985, L3300.0100, L501.5101, L500.4100, L501.9520, L3100.2300, L3300.1200, L3100.3425, L504.2610, L800.1280, L3200.1100, L503.6030, L3400.0700, L100.0100, L506.0400, L3300.0700, L3100.5450, L3100.5020, L500.4050, L803.2200, L3410.9992, L501.6710, L3000.0375, L503.6550 ####[facility] [address] [facility]. [place], [place], [id number] BETA GLOBULIN 1.1 g/dL Normal 0.7-1.3 [facility] Comment on above: Order Comment: Test( s) 022600-Kaqzee, Serum or Plasmawas developed and its performance characteristicsdetermined by [employer]. It has not been cleared or approvedby the Food and Drug Administration.N Performed By: #### L 300.3900, L501.4700, L3130.0010, L3890.6006, L501.9985, L3300.0100, L501.5101, L500.4100, L501.9520, L3100.2300, L3300.1200, L3100.3425, L504.2610, L800.1280, L3200.1100, L503.6030, L3400.0700, L100.0100, L506.0400, L3300.0700, L3100.5450, L3100.5020, L500.4050, L803.2200, L3410.9992, L501.6710, L3000.0375, L503.6550 ####[facility] [address] [place], [address] GAMMA GLOBULIN 1.4 g/dL Normal 0.4-1.8 [facility] Comment on above: Order Comment: Test( s) 276611-Gytnmn, Serum or Plasmawas developed and its performance characteristicsdetermined by [employer]. It has not been cleared or approvedby the Food and Drug Administration.N Performed By: #### L 300.3900, L501.4700, L3130.0010, L3890.6006, L501.9985, L3300.0100, L501.5101, L500.4100, L501.9520, L3100.2300, L3300.1200, L3100.3425, L504.2610, L800.1280, L3200.1100, L503.6030, L3400.0700, L100.0100, L506.0400, L3300.0700, L3100.5450, L3100.5020, L500.4050, L803.2200, L3410.9992, L501.6710, L3000.0375, L503.6550 ####[facility] [address] [facility] [place], [address] Globulin (S) [Mass/Vol] 3.7 g/dL Normal 2.2-3.9 [facility] Comment on above: Order Comment: Test( s) 781828-Xsabyo, Serum or Plasmawas developed and its performance characteristicsdetermined by [employer]. It has not been cleared or approvedby the Food and Drug Administration.N Performed By: #### L 300.3900, L501.4700, L3130.0010, L3890.6006, L501.9985, L3300.0100, L501.5101, L500.4100, L501.9520, L3100.2300, L3300.1200, L3100.3425, L504.2610, L800.1280, L3200.1100, L503.6030, L3400.0700, L100.0100, L506.0400, L3300.0700, L3100.5450, L3100.5020, L500.4050, L803.2200, L3410.9992, L501.6710, L3000.0375, L503.6550 ####[facility] [address] [place], [address] MARSHALL RESULT,S Comment Normal . [facility] Comment on above: Order Comment: Test( s) 870947-Rwieas, Serum or Plasmawas developed and its performance characteristicsdetermined by [employer]. It has not been cleared or approvedby the Food and Drug Administration.N Result Comment: No m onoclonality detected. Performed By: #### L 300.3900, L501.4700, L3130.0010, L3890.6006, L501.9985, L3300.0100, L501.5101, L500.4100, L501.9520, L3100.2300, L3300.1200, L3100.3425, L504.2610, L800.1280, L3200.1100, L503.6030, L3400.0700, L100.0100, L506.0400, L3300.0700, L3100.5450, L3100.5020, L500.4050, L803.2200, L3410.9992, L501.6710, L3000.0375, L503.6550 ####[facility] [address] [place], [place], [id number] IMMUNOGLOB A QN 279 mg/dL Normal 64-422 [facility] Comment on above: Order Comment: Test( s) 442195-Ilxdlj, Serum or Plasmawas developed and its performance characteristicsdetermined by [employer]. It has not been cleared or approvedby the Food and Drug Administration.N Performed By: #### L 300.3900, L501.4700, L3130.0010, L3890.6006, L501.9985, L3300.0100, L501.5101, L500.4100, L501.9520, L3100.2300, L3300.1200, L3100.3425, L504.2610, L800.1280, L3200.1100, L503.6030, L3400.0700, L100.0100, L506.0400, L3300.0700, L3100.5450, L3100.5020, L500.4050, L803.2200, L3410.9992, L501.6710, L3000.0375, L503.6550 ####[facility] [address] [facility]. [place], [place], [id number] IMMUNOGLOB G QN 1462 mg/dL Normal 586-1602 [facility] Comment on above: Order Comment: Test( s) 273095-Igyzbc, Serum or Plasmawas developed and its performance characteristicsdetermined by [employer]. It has not been cleared or approvedby the Food and Drug Administration.N Performed By: #### L 300.3900, L501.4700, L3130.0010, L3890.6006, L501.9985, L3300.0100, L501.5101, L500.4100, L501.9520, L3100.2300, L3300.1200, L3100.3425, L504.2610, L800.1280, L3200.1100, L503.6030, L3400.0700, L100.0100, L506.0400, L3300.0700, L3100.5450, L3100.5020, L500.4050, L803.2200, L3410.9992, L501.6710, L3000.0375, L503.6550 ####[facility] [address] [facility]. [place], [place], [id number] IMMUNOGLOB M QN 73 mg/dL Normal 26-217 [facility] Comment on above: Order Comment: Test( s) 187340-Czbkqx, Serum or Plasmawas developed and its performance characteristicsdetermined by [employer]. It has not been cleared or approvedby the Food and Drug Administration.N Performed By: #### L 300.3900, L501.4700, L3130.0010, L3890.6006, L501.9985, L3300.0100, L501.5101, L500.4100, L501.9520, L3100.2300, L3300.1200, L3100.3425, L504.2610, L800.1280, L3200.1100, L503.6030, L3400.0700, L100.0100, L506.0400, L3300.0700, L3100.5450, L3100.5020, L500.4050, L803.2200, L3410.9992, L501.6710, L3000.0375, L503.6550 ####[facility] [address] [facility] [place], [address] M-Jose Angel Not Observed Normal Not Observed [facility] Comment on above: Order Comment: Test( s) 008785-Fulsqt, Serum or Plasmawas developed and its performance characteristicsdetermined by [employer]. It has not been cleared or approvedby the Food and Drug Administration.N Performed By: #### L 300.3900, L501.4700, L3130.0010, L3890.6006, L501.9985, L3300.0100, L501.5101, L500.4100, L501.9520, L3100.2300, L3300.1200, L3100.3425, L504.2610, L800.1280, L3200.1100, L503.6030, L3400.0700, L100.0100, L506.0400, L3300.0700, L3100.5450, L3100.5020, L500.4050, L803.2200, L3410.9992, L501.6710, L3000.0375, L503.6550 ####[facility] [address] [facility] [place], [address] NOTE: Comment Normal . [facility] Comment on above: Order Comment: Test( s) 010917-Wbpgos, Serum or Plasmawas developed and its performance characteristicsdetermined by [employer]. It has not been cleared or approvedby the Food and Drug Administration.N Result Comment: Prot ein electrophoresis scan will follow via computer,mail, or rough rounder machine delivery. Performed By: #### L 300.3900, L501.4700, L3130.0010, L3890.6006, L501.9985, L3300.0100, L501.5101, L500.4100, L501.9520, L3100.2300, L3300.1200, L3100.3425, L504.2610, L800.1280, L3200.1100, L503.6030, L3400.0700, L100.0100, L506.0400, L3300.0700, L3100.5450, L3100.5020, L500.4050, L803.2200, L3410.9992, L501.6710, L3000.0375, L503.6550 ####[facility] [address] [place], [address] Protein [Mass/Vol] 7.4 g/dL Normal 6.0-8.5 [facility] Comment on above: Order Comment: Test( s) 670678-Zuiwvz, Serum or Plasmawas developed and its performance characteristicsdetermined by [employer]. It has not been cleared or approvedby the Food and Drug Administration.N Performed By: #### L 300.3900, L501.4700, L3130.0010, L3890.6006, L501.9985, L3300.0100, L501.5101, L500.4100, L501.9520, L3100.2300, L3300.1200, L3100.3425, L504.2610, L800.1280, L3200.1100, L503.6030, L3400.0700, L100.0100, L506.0400, L3300.0700, L3100.5450, L3100.5020, L500.4050, L803.2200, L3410.9992, L501.6710, L3000.0375, L503.6550 ####[facility] [address] [place], [place], [id number] Immunoglobulins G/A/M/Ulysses IMMUNOGLOB E QN 30 IU/mL Normal 6-495 [facility] Comment on above: Order Comment: Test( s) 917441-Yemzsb, Serum or Plasmawas developed and its performance characteristicsdetermined by [employer]. It has not been cleared or approvedby the Food and Drug Administration.N Performed By: #### L 300.3900, L501.4700, L3130.0010, L3890.6006, L501.9985, L3300.0100, L501.5101, L500.4100, L501.9520, L3100.2300, L3300.1200, L3100.3425, L504.2610, L800.1280, L3200.1100, L503.6030, L3400.0700, L100.0100, L506.0400, L3300.0700, L3100.5450, L3100.5020, L500.4050, L803.2200, L3410.9992, L501.6710, L3000.0375, L503.6550 ####[facility] [address] [place], [place], [id number] Farmer Lambda Light Chainson 09-16-2024 FR KAPPA LT CHN 27.2 mg/L Abnormal 3.3-19.4 [facility] Comment on above: Order Comment: Test( s) 337926-Joyrda, Serum or Plasmawas developed and its performance characteristicsdetermined by [employer]. It has not been cleared or approvedby the Food and Drug Administration. Performed By: #### L 300.3900, L501.4700, L3130.0010, L3890.6006, L501.9985, L3300.0100, L501.5101, L500.4100, L501.9520, L3100.2300, L3300.1200, L3100.3425, L504.2610, L800.1280, L3200.1100, L503.6030, L3400.0700, L100.0100, L506.0400, L3300.0700, L3100.5450, L3100.5020, L500.4050, L803.2200, L3410.9992, L501.6710, L3000.0375, L503.6550 ####[facility] [address] [place], [place], [address] FR LAMBDA LT CH 25.8 mg/L Normal 5.7-26.3 [facility] Comment on above: Order Comment: Test( s) 399900-Ahjwkh, Serum or Plasmawas developed and its performance characteristicsdetermined by [employer]. It has not been cleared or approvedby the Food and Drug Administration. Performed By: #### L 300.3900, L501.4700, L3130.0010, L3890.6006, L501.9985, L3300.0100, L501.5101, L500.4100, L501.9520, L3100.2300, L3300.1200, L3100.3425, L504.2610, L800.1280, L3200.1100, L503.6030, L3400.0700, L100.0100, L506.0400, L3300.0700, L3100.5450, L3100.5020, L500.4050, L803.2200, L3410.9992, L501.6710, L3000.0375, L503.6550 ####[facility] [address] [place], [address] KAPPA/LAMBDA % 1.05 Normal 0.26-1.65 [facility] Comment on above: Order Comment: Test( s) 529677-Xcyael, Serum or Plasmawas developed and its performance characteristicsdetermined by [employer]. It has not been cleared or approvedby the Food and Drug Administration. Performed By: #### L 300.3900, L501.4700, L3130.0010, L3890.6006, L501.9985, L3300.0100, L501.5101, L500.4100, L501.9520, L3100.2300, L3300.1200, L3100.3425, L504.2610, L800.1280, L3200.1100, L503.6030, L3400.0700, L100.0100, L506.0400, L3300.0700, L3100.5450, L3100.5020, L500.4050, L803.2200, L3410.9992, L501.6710, L3000.0375, L503.6550 ####[facility] [address] [place], [place], [address] L501.5101on 09-16-2024 GGTP 71 IU/L Abnormal 0-60 [facility] Comment on above: Order Comment: Test( s) 428839-Vqeyke, Serum or Plasmawas developed and its performance characteristicsdetermined by [employer]. It has not been cleared or approvedby the Food and Drug Administration. Performed By: #### L 300.3900, L501.4700, L3130.0010, L3890.6006, L501.9985, L3300.0100, L501.5101, L500.4100, L501.9520, L3100.2300, L3300.1200, L3100.3425, L504.2610, L800.1280, L3200.1100, L503.6030, L3400.0700, L100.0100, L506.0400, L3300.0700, L3100.5450, L3100.5020, L500.4050, L803.2200, L3410.9992, L501.6710, L3000.0375, L503.6550 ####[facility] [address] [place], [place], [address] DWAYNE w/ Reflex Mult Confirmon 09-14-2024 ANTI-DNA (DS)AB TNP Normal [facility] Comment on above: Performed By: #### L 300.3900, L501.4700, L3130.0010, L3890.6006, L501.9985, L3300.0100, L501.5101, L500.4100, L501.9520, L3100.2300, L3300.1200, L3100.3425, L504.2610, L800.1280, L3200.1100, L503.6030, L3400.0700, L100.0100, L506.0400, L3300.0700, L3100.5450, L3100.5020, L500.4050, L803.2200, L3410.9992, L501.6710, L3000.0375, L503.6550 ####[facility] [address] [place], [address] ANTI-SS-A TNP [facility] Comment on above: Performed By: #### L 300.3900, L501.4700, L3130.0010, L3890.6006, L501.9985, L3300.0100, L501.5101, L500.4100, L501.9520, L3100.2300, L3300.1200, L3100.3425, L504.2610, L800.1280, L3200.1100, L503.6030, L3400.0700, L100.0100, L506.0400, L3300.0700, L3100.5450, L3100.5020, L500.4050, L803.2200, L3410.9992, L501.6710, L3000.0375, L503.6550 ####[facility] [address] [place], [address] ANTI-SS-B TNP [facility] Comment on above: Performed By: #### L 300.3900, L501.4700, L3130.0010, L3890.6006, L501.9985, L3300.0100, L501.5101, L500.4100, L501.9520, L3100.2300, L3300.1200, L3100.3425, L504.2610, L800.1280, L3200.1100, L503.6030, L3400.0700, L100.0100, L506.0400, L3300.0700, L3100.5450, L3100.5020, L500.4050, L803.2200, L3410.9992, L501.6710, L3000.0375, L503.6550 ####[facility] [address] [place], [address] L3410.9992on 09-14-2024 [facility] Mis. COMMENT Normal . [facility] Comment on above: Order Comment: 34059 9ELD TIGER RF Result Comment: Test Ordered: [id number] Enhanced Liver Fibrosis (ELF)ELF(TM) Score 11.58 [H ] BN Reference Range: <9.80ELF(TM) Score Interpretation:Risk cut-offs to assess the likelihood of progressionto cirrhosis and liver-related clinical events within3.9 years following baseline ELF score (IQR: 14.0-22.4months)*: Lower risk < 9.80 Mid risk 9.80 - 11.29 Higher risk >11.29Note: The ELF(TM) Score is a unitless numerical value.*Andrea SA, Fortunato VW, Okandrei T, et al. Selonsertibfor patients with bridging fibrosis or compensatedcirrhosis due to KIDD: Results from randomized phaseIII STELLAR trials. J Hepatol. 2020 Sep;73(1):26-39.Performed at: [facility] [address] [id number] Director: Jenny Cm MD, Phone: [phone] at: [address] [id number] Director: Josafat El PhD, Phone: [phone] Performed By: #### L 300.3900, L501.4700, L3130.0010, L3890.6006, L501.9985, L3300.0100, L501.5101, L500.4100, L501.9520, L3100.2300, L3300.1200, L3100.3425, L504.2610, L800.1280, L3200.1100, L503.6030, L3400.0700, L100.0100, L506.0400, L3300.0700, L3100.5450, L3100.5020, L500.4050, L803.2200, L3410.9992, L501.6710, L3000.0375, L503.6550 ####[facility] [address] [place], [address] Anti-Mitochondrial ABon - ANTIMITOCHON AB <20.0 Normal 0.0-20.0 [facility] Comment on above: Result Comment: Nega tive 0.0 - 20.0 Equivocal 20.1 - 24.9 Positive >24.9Mitochondrial (M2) Antibodies are found in 90-96% ofpatients with primary biliary cirrhosis. Performed By: #### L 300.3900, L501.4700, L3130.0010, L3890.6006, L501.9985, L3300.0100, L501.5101, L500.4100, L501.9520, L3100.2300, L3300.1200, L3100.3425, L504.2610, L800.1280, L3200.1100, L503.6030, L3400.0700, L100.0100, L506.0400, L3300.0700, L3100.5450, L3100.5020, L500.4050, L803.2200, L3410.9992, L501.6710, L3000.0375, L503.6550 ####[facility] [address] [place], [place], [id number] ABD Limited w/ Elastographyo n 09-12-2024 ABD Limited w/ Elastography Normal [facility] Absolute lymphocyte countOrd ered By: Maykel Sloan on 09-12-2024 Lymphocytes Auto (Unsp spec) [#/Vol] 1.99 10*3/uL 0.83-4.51 [facility] Absolute neutrophil countOrd ered By: Maykel Sloan on 09-12-2024 Neutrophils (Bld) [#/Vol] 3.1 10*3/uL 2.0-7.7 [facility] Albumin Elph [Mass/Vol]Order ed By: Maykel Sloan on 09-12-2024 Albumin [Mass/Vol] 3.7 g/dL 2.9-4.4 [facility] Anion gap in Serum or Plasma Ordered By: Maykel Sloan on 09-12-2024 Anion gap [Moles/Vol] 13 mmol/L 5-15 [facility] Automated lymphocyte count a s percentage of total leukocytesOrdered By: Maykel Sloan on 09-12-2024 Lymphocytes/100 WBC Auto (Unsp spec) 34.6 % 19-41 [facility] BUN/creatinine ratioOrdered By: Maykel Sloan on 09-12-2024 Urea nitrogen/Creatinine [Mass ratio] 15.6 mg/mg 10-20 [facility] Basophil percentageOrdered B y: Maykel Sloan on 09-12-2024 Basophils/100 WBC (Bld) 1.2 % High 0-1 [facility] Bilirubin directOrdered By: Mayekl Sloan on 09-12-2024 Bilirubin.direct [Mass/Vol] 0.16 mg/dL 0.00-0.30 [facility] Bilirubin, Directon 09-13-19 25 Bilirubin.direct [Mass/Vol] 0.16 mg/dL Normal 0.00-0.30 [facility] Comment on above: Performed By: #### L 300.3900, L501.4700, L3130.0010, L3890.6006, L501.9985, L3300.0100, L501.5101, L500.4100, L501.9520, L3100.2300, L3300.1200, L3100.3425, L504.2610, L800.1280, L3200.1100, L503.6030, L3400.0700, L100.0100, L506.0400, L3300.0700, L3100.5450, L3100.5020, L500.4050, L803.2200, L3410.9992, L501.6710, L3000.0375, L503.6550 ####[facility] [address] [facility] [address] [place], [place], [id number] Bilirubin, totalOrdered By: Maykel Sloan on 09-12-2024 Bilirubin [Mass/Vol] 0.44 mg/dL 0.00-1.30 [facility] CA 19-9 agOrdered By: Jorge Sloan on 09-12-2024 CA 19-9 ag 53 U/mL High 0-35 [facility] Comment on above: [employer] El ectrochemiluminescence Immunoassay(ECLIA)Values obtained with different assay methods or kits cannotbe used interchangeably. Results cannot be interpreted asabsolute evidence of the presence or absence of malignantdisease. CBC W/Diff, Automatedon Absolute Lymph 1.99 X10 3/uL Normal 0.83-4.51 [facility] Comment on above: Performed By: #### L 300.3900, L501.4700, L3130.0010, L3890.6006, L501.9985, L3300.0100, L501.5101, L500.4100, L501.9520, L3100.2300, L3300.1200, L3100.3425, L504.2610, L800.1280, L3200.1100, L503.6030, L3400.0700, L100.0100, L506.0400, L3300.0700, L3100.5450, L3100.5020, L500.4050, L803.2200, L3410.9992, L501.6710, L3000.0375, L503.6550 ####[facility] [address] [facility] [address] [place], [place], [id number] Absolute Neut 3.1 X10 3/uL Normal 2.0-7.7 [facility] Comment on above: Performed By: #### L 300.3900, L501.4700, L3130.0010, L3890.6006, L501.9985, L3300.0100, L501.5101, L500.4100, L501.9520, L3100.2300, L3300.1200, L3100.3425, L504.2610, L800.1280, L3200.1100, L503.6030, L3400.0700, L100.0100, L506.0400, L3300.0700, L3100.5450, L3100.5020, L500.4050, L803.2200, L3410.9992, L501.6710, L3000.0375, L503.6550 ####[facility] [address] [facility] [place], [address] Basophils/100 WBC (Bld) 1.2 % High 0-1 [facility] Comment on above: Performed By: #### L 300.3900, L501.4700, L3130.0010, L3890.6006, L501.9985, L3300.0100, L501.5101, L500.4100, L501.9520, L3100.2300, L3300.1200, L3100.3425, L504.2610, L800.1280, L3200.1100, L503.6030, L3400.0700, L100.0100, L506.0400, L3300.0700, L3100.5450, L3100.5020, L500.4050, L803.2200, L3410.9992, L501.6710, L3000.0375, L503.6550 ####[facility] [address] [facility] [place], [address] Eosinophils/100 WBC (Bld) 2.3 % Normal 0-5 [facility] Comment on above: Performed By: #### L 300.3900, L501.4700, L3130.0010, L3890.6006, L501.9985, L3300.0100, L501.5101, L500.4100, L501.9520, L3100.2300, L3300.1200, L3100.3425, L504.2610, L800.1280, L3200.1100, L503.6030, L3400.0700, L100.0100, L506.0400, L3300.0700, L3100.5450, L3100.5020, L500.4050, L803.2200, L3410.9992, L501.6710, L3000.0375, L503.6550 ####[facility] [address]xf[address] [facility] [place], [address] Erythrocyte distribution width (RBC) [Ratio] 14.6 % Normal 11.6-14.6 [facility] Comment on above: Performed By: #### L 300.3900, L501.4700, L3130.0010, L3890.6006, L501.9985, L3300.0100, L501.5101, L500.4100, L501.9520, L3100.2300, L3300.1200, L3100.3425, L504.2610, L800.1280, L3200.1100, L503.6030, L3400.0700, L100.0100, L506.0400, L3300.0700, L3100.5450, L3100.5020, L500.4050, L803.2200, L3410.9992, L501.6710, L3000.0375, L503.6550 ####[facility] [address] [facility] [place] [place], [id number] Hematocrit (Bld) [Volume fraction] 34.1 % Low 37-47 [facility] Comment on above: Performed By: #### L 300.3900, L501.4700, L3130.0010, L3890.6006, L501.9985, L3300.0100, L501.5101, L500.4100, L501.9520, L3100.2300, L3300.1200, L3100.3425, L504.2610, L800.1280, L3200.1100, L503.6030, L3400.0700, L100.0100, L506.0400, L3300.0700, L3100.5450, L3100.5020, L500.4050, L803.2200, L3410.9992, L501.6710, L3000.0375, L503.6550 ####[facility] Wfphuxgusm3651 [facility]. [place], [place], [id number] Hemoglobin (Bld) [Mass/Vol] 11.0 g/dL Low 12.0-15.0 [facility] Comment on above: Performed By: #### L 300.3900, L501.4700, L3130.0010, L3890.6006, L501.9985, L3300.0100, L501.5101, L500.4100, L501.9520, L3100.2300, L3300.1200, L3100.3425, L504.2610, L800.1280, L3200.1100, L503.6030, L3400.0700, L100.0100, L506.0400, L3300.0700, L3100.5450, L3100.5020, L500.4050, L803.2200, L3410.9992, L501.6710, L3000.0375, L503.6550 ####[facility] Jwffinjtqx1996 [facility]. [place], [place], [phone] IG% 0.300 Normal 0.0-0.9 [facility] Comment on above: Result Comment: IG% - Immature Granulocytes (promyelocytes, myelocytes andmetamyelocytes) > 1% indicates that a LEFT SHIFT is Present. Performed By: #### L 300.3900, L501.4700, L3130.0010, L3890.6006, L501.9985, L3300.0100, L501.5101, L500.4100, L501.9520, L3100.2300, L3300.1200, L3100.3425, L504.2610, L800.1280, L3200.1100, L503.6030, L3400.0700, L100.0100, L506.0400, L3300.0700, L3100.5450, L3100.5020, L500.4050, L803.2200, L3410.9992, L501.6710, L3000.0375, L503.6550 ####[facility] [address] [facility] [place], [place], [id number] Lymphocytes/100 WBC (Bld) 34.6 % Normal 19-41 [facility] Comment on above: Performed By: #### L 300.3900, L501.4700, L3130.0010, L3890.6006, L501.9985, L3300.0100, L501.5101, L500.4100, L501.9520, L3100.2300, L3300.1200, L3100.3425, L504.2610, L800.1280, L3200.1100, L503.6030, L3400.0700, L100.0100, L506.0400, L3300.0700, L3100.5450, L3100.5020, L500.4050, L803.2200, L3410.9992, L501.6710, L3000.0375, L503.6550 ####[facility] [address]ugfr[address]75 [facility]. [place], [place], [phone] MCH (RBC) [Entitic mass] 27.2 pg Normal 27.0-32.0 [facility] Comment on above: Performed By: #### L 300.3900, L501.4700, L3130.0010, L3890.6006, L501.9985, L3300.0100, L501.5101, L500.4100, L501.9520, L3100.2300, L3300.1200, L3100.3425, L504.2610, L800.1280, L3200.1100, L503.6030, L3400.0700, L100.0100, L506.0400, L3300.0700, L3100.5450, L3100.5020, L500.4050, L803.2200, L3410.9992, L501.6710, L3000.0375, L503.6550 ####[facility] Ipoihhbsme8686 [facility]. [place], [place], [phone] MCHC (RBC) [Mass/Vol] 32.3 g/dL Normal 32-36 [facility] Comment on above: Performed By: #### L 300.3900, L501.4700, L3130.0010, L3890.6006, L501.9985, L3300.0100, L501.5101, L500.4100, L501.9520, L3100.2300, L3300.1200, L3100.3425, L504.2610, L800.1280, L3200.1100, L503.6030, L3400.0700, L100.0100, L506.0400, L3300.0700, L3100.5450, L3100.5020, L500.4050, L803.2200, L3410.9992, L501.6710, L3000.0375, L503.6550 ####[facility] Ekftjznvmp5462 [facility]. [place], [place], [id number] MCV (RBC) [Entitic vol] 84.2 fL Normal 81-99 [facility] Comment on above: Performed By: #### L 300.3900, L501.4700, L3130.0010, L3890.6006, L501.9985, L3300.0100, L501.5101, L500.4100, L501.9520, L3100.2300, L3300.1200, L3100.3425, L504.2610, L800.1280, L3200.1100, L503.6030, L3400.0700, L100.0100, L506.0400, L3300.0700, L3100.5450, L3100.5020, L500.4050, L803.2200, L3410.9992, L501.6710, L3000.0375, L503.6550 ####[facility] Gponmqttfb7562 [facility]. [place], [place], [phone]) Monocytes/100 WBC (Bld) 7.1 % Normal 0-10 [facility] Comment on above: Performed By: #### L 300.3900, L501.4700, L3130.0010, L3890.6006, L501.9985, L3300.0100, L501.5101, L500.4100, L501.9520, L3100.2300, L3300.1200, L3100.3425, L504.2610, L800.1280, L3200.1100, L503.6030, L3400.0700, L100.0100, L506.0400, L3300.0700, L3100.5450, L3100.5020, L500.4050, L803.2200, L3410.9992, L501.6710, L3000.0375, L503.6550 ####[facility] Wxyrxvwaqw3395 [facility]. [place], [place], [phone]) Neutrophils/100 WBC (Bld) 54.5 % Normal 47-70 [facility] Comment on above: Performed By: #### L 300.3900, L501.4700, L3130.0010, L3890.6006, L501.9985, L3300.0100, L501.5101, L500.4100, L501.9520, L3100.2300, L3300.1200, L3100.3425, L504.2610, L800.1280, L3200.1100, L503.6030, L3400.0700, L100.0100, L506.0400, L3300.0700, L3100.5450, L3100.5020, L500.4050, L803.2200, L3410.9992, L501.6710, L3000.0375, L503.6550 ####[facility] Duonuecejy4162 [facility]. [place], [place], [phone] Nucleated RBC (Bld) [#/Vol] 0 10*3/uL Normal 0-5 [facility] Comment on above: Performed By: #### L 300.3900, L501.4700, L3130.0010, L3890.6006, L501.9985, L3300.0100, L501.5101, L500.4100, L501.9520, L3100.2300, L3300.1200, L3100.3425, L504.2610, L800.1280, L3200.1100, L503.6030, L3400.0700, L100.0100, L506.0400, L3300.0700, L3100.5450, L3100.5020, L500.4050, L803.2200, L3410.9992, L501.6710, L3000.0375, L503.6550 ####[facility] [address] [place], [address] Platelet mean volume (Bld) [Entitic vol] 11.7 fL Normal 6.2-12.0 [facility] Comment on above: Performed By: #### L 300.3900, L501.4700, L3130.0010, L3890.6006, L501.9985, L3300.0100, L501.5101, L500.4100, L501.9520, L3100.2300, L3300.1200, L3100.3425, L504.2610, L800.1280, L3200.1100, L503.6030, L3400.0700, L100.0100, L506.0400, L3300.0700, L3100.5450, L3100.5020, L500.4050, L803.2200, L3410.9992, L501.6710, L3000.0375, L503.6550 ####[facility] [address] [place], [address] Platelets (Bld) [#/Vol] 173 10*3/uL Normal 150-450 [facility] Comment on above: Performed By: #### L 300.3900, L501.4700, L3130.0010, L3890.6006, L501.9985, L3300.0100, L501.5101, L500.4100, L501.9520, L3100.2300, L3300.1200, L3100.3425, L504.2610, L800.1280, L3200.1100, L503.6030, L3400.0700, L100.0100, L506.0400, L3300.0700, L3100.5450, L3100.5020, L500.4050, L803.2200, L3410.9992, L501.6710, L3000.0375, L503.6550 ####[facility] [address] [place], [address] RBC (Bld) [#/Vol] 4.05 10*6/uL Low 4.2-5.4 [facility] Comment on above: Performed By: #### L 300.3900, L501.4700, L3130.0010, L3890.6006, L501.9985, L3300.0100, L501.5101, L500.4100, L501.9520, L3100.2300, L3300.1200, L3100.3425, L504.2610, L800.1280, L3200.1100, L503.6030, L3400.0700, L100.0100, L506.0400, L3300.0700, L3100.5450, L3100.5020, L500.4050, L803.2200, L3410.9992, L501.6710, L3000.0375, L503.6550 ####[facility] [address] [place], [address] RDW SD 44.9 fl High 35.1-43.9 [facility] Comment on above: Performed By: #### L 300.3900, L501.4700, L3130.0010, L3890.6006, L501.9985, L3300.0100, L501.5101, L500.4100, L501.9520, L3100.2300, L3300.1200, L3100.3425, L504.2610, L800.1280, L3200.1100, L503.6030, L3400.0700, L100.0100, L506.0400, L3300.0700, L3100.5450, L3100.5020, L500.4050, L803.2200, L3410.9992, L501.6710, L3000.0375, L503.6550 ####[facility] Yqtrfiz[address]l7322 [facility]. [place], [place], [phone] WBC (Bld) [#/Vol] 5.8 10*3/uL Normal 4.4-11.0 [facility] Comment on above: Performed By: #### L 300.3900, L501.4700, L3130.0010, L3890.6006, L501.9985, L3300.0100, L501.5101, L500.4100, L501.9520, L3100.2300, L3300.1200, L3100.3425, L504.2610, L800.1280, L3200.1100, L503.6030, L3400.0700, L100.0100, L506.0400, L3300.0700, L3100.5450, L3100.5020, L500.4050, L803.2200, L3410.9992, L501.6710, L3000.0375, L503.6550 ####[facility] Exkf[address]tw4149 [facility]. [place], [place], [id number] CRPon 09-12-2024 C-REACTIVE PROT < 3.00 Normal 0.0-3.0 [facility] Comment on above: Performed By: #### L 300.3900, L501.4700, L3130.0010, L3890.6006, L501.9985, L3300.0100, L501.5101, L500.4100, L501.9520, L3100.2300, L3300.1200, L3100.3425, L504.2610, L800.1280, L3200.1100, L503.6030, L3400.0700, L100.0100, L506.0400, L3300.0700, L3100.5450, L3100.5020, L500.4050, L803.2200, L3410.9992, L501.6710, L3000.0375, L503.6550 ####[facility] [address] [place], [place], [id number] Calculated very low density lipoprotein (VLDL) cholesterol measurementOrdered By: Maykel Sloan on 09-12-2024 Calculated very low density lipoprotein (VLDL) cholesterol measurement 96 mg/dL High 5-40 [facility] Carbon dioxide, total [Moles /volume] in Central venous bloodOrdered By: Maykel Sloan on 09-12-2024 CO2 [Moles/Vol] 22.5 mmol/L 21.0-32.0 [facility] Chloride assayOrdered By: Preethi Sloan on 09-12-2024 Chloride [Moles/Vol] 103 mmol/L 98-108 [facility] Comprehensive Metabolic Prof ilon 09-12-2024 Albumin [Mass/Vol] 4.0 g/dL Normal 3.4-4.8 [facility] Comment on above: Performed By: #### L 300.3900, L501.4700, L3130.0010, L3890.6006, L501.9985, L3300.0100, L501.5101, L500.4100, L501.9520, L3100.2300, L3300.1200, L3100.3425, L504.2610, L800.1280, L3200.1100, L503.6030, L3400.0700, L100.0100, L506.0400, L3300.0700, L3100.5450, L3100.5020, L500.4050, L803.2200, L3410.9992, L501.6710, L3000.0375, L503.6550 ####[facility] [address] [place], [place], [phone] Albumin/Globulin [Mass ratio] 1.1 {ratio} Normal 0.9-2.4 [facility] Comment on above: Performed By: #### L 300.3900, L501.4700, L3130.0010, L3890.6006, L501.9985, L3300.0100, L501.5101, L500.4100, L501.9520, L3100.2300, L3300.1200, L3100.3425, L504.2610, L800.1280, L3200.1100, L503.6030, L3400.0700, L100.0100, L506.0400, L3300.0700, L3100.5450, L3100.5020, L500.4050, L803.2200, L3410.9992, L501.6710, L3000.0375, L503.6550 ####[facility] [address] [place], [address] ALK PHOS 93 U/L Normal 35-104 [facility] Comment on above: Performed By: #### L 300.3900, L501.4700, L3130.0010, L3890.6006, L501.9985, L3300.0100, L501.5101, L500.4100, L501.9520, L3100.2300, L3300.1200, L3100.3425, L504.2610, L800.1280, L3200.1100, L503.6030, L3400.0700, L100.0100, L506.0400, L3300.0700, L3100.5450, L3100.5020, L500.4050, L803.2200, L3410.9992, L501.6710, L3000.0375, L503.6550 ####[facility] [address] [place], [address] ALT [Catalytic activity/Vol] 22 U/L Normal <=34 [facility] Comment on above: Performed By: #### L 300.3900, L501.4700, L3130.0010, L3890.6006, L501.9985, L3300.0100, L501.5101, L500.4100, L501.9520, L3100.2300, L3300.1200, L3100.3425, L504.2610, L800.1280, L3200.1100, L503.6030, L3400.0700, L100.0100, L506.0400, L3300.0700, L3100.5450, L3100.5020, L500.4050, L803.2200, L3410.9992, L501.6710, L3000.0375, L503.6550 ####[facility] [address] [place], [address] AST [Catalytic activity/Vol] 35 U/L High <=31 [facility] Comment on above: Performed By: #### L 300.3900, L501.4700, L3130.0010, L3890.6006, L501.9985, L3300.0100, L501.5101, L500.4100, L501.9520, L3100.2300, L3300.1200, L3100.3425, L504.2610, L800.1280, L3200.1100, L503.6030, L3400.0700, L100.0100, L506.0400, L3300.0700, L3100.5450, L3100.5020, L500.4050, L803.2200, L3410.9992, L501.6710, L3000.0375, L503.6550 ####[facility] [address] [place], [address] Bilirubin [Mass/Vol] 0.44 mg/dL Normal 0.00-1.30 [facility] Comment on above: Performed By: #### L 300.3900, L501.4700, L3130.0010, L3890.6006, L501.9985, L3300.0100, L501.5101, L500.4100, L501.9520, L3100.2300, L3300.1200, L3100.3425, L504.2610, L800.1280, L3200.1100, L503.6030, L3400.0700, L100.0100, L506.0400, L3300.0700, L3100.5450, L3100.5020, L500.4050, L803.2200, L3410.9992, L501.6710, L3000.0375, L503.6550 ####[facility] [address]jxq[address] [facility]. [place], [place], [id number] BUN/CRE 15.6 RATIO Normal 10-20 [facility] Comment on above: Performed By: #### L 300.3900, L501.4700, L3130.0010, L3890.6006, L501.9985, L3300.0100, L501.5101, L500.4100, L501.9520, L3100.2300, L3300.1200, L3100.3425, L504.2610, L800.1280, L3200.1100, L503.6030, L3400.0700, L100.0100, L506.0400, L3300.0700, L3100.5450, L3100.5020, L500.4050, L803.2200, L3410.9992, L501.6710, L3000.0375, L503.6550 ####[facility] Rbeenoltzr3627 [facility]. [place], [place], [id number] Calcium [Mass/Vol] 9.8 mg/dL Normal 7.6-11.0 [facility] Comment on above: Performed By: #### L 300.3900, L501.4700, L3130.0010, L3890.6006, L501.9985, L3300.0100, L501.5101, L500.4100, L501.9520, L3100.2300, L3300.1200, L3100.3425, L504.2610, L800.1280, L3200.1100, L503.6030, L3400.0700, L100.0100, L506.0400, L3300.0700, L3100.5450, L3100.5020, L500.4050, L803.2200, L3410.9992, L501.6710, L3000.0375, L503.6550 ####[facility] Ozfvmoqeok1268 [facility]. [place], [place], [address] Chloride [Moles/Vol] 103 mmol/L Normal 98-108 [facility] Comment on above: Performed By: #### L 300.3900, L501.4700, L3130.0010, L3890.6006, L501.9985, L3300.0100, L501.5101, L500.4100, L501.9520, L3100.2300, L3300.1200, L3100.3425, L504.2610, L800.1280, L3200.1100, L503.6030, L3400.0700, L100.0100, L506.0400, L3300.0700, L3100.5450, L3100.5020, L500.4050, L803.2200, L3410.9992, L501.6710, L3000.0375, L503.6550 ####[facility] [address] [facility]. [place], [place], [id number] CO2 [Moles/Vol] 22.5 mmol/L Normal 21.0-32.0 [facility] Comment on above: Performed By: #### L 300.3900, L501.4700, L3130.0010, L3890.6006, L501.9985, L3300.0100, L501.5101, L500.4100, L501.9520, L3100.2300, L3300.1200, L3100.3425, L504.2610, L800.1280, L3200.1100, L503.6030, L3400.0700, L100.0100, L506.0400, L3300.0700, L3100.5450, L3100.5020, L500.4050, L803.2200, L3410.9992, L501.6710, L3000.0375, L503.6550 ####[facility] [address] [facility]. [place], [place], [id number] Creatinine [Mass/Vol] 1.15 mg/dL Normal 0.70-1.20 [facility] Comment on above: Performed By: #### L 300.3900, L501.4700, L3130.0010, L3890.6006, L501.9985, L3300.0100, L501.5101, L500.4100, L501.9520, L3100.2300, L3300.1200, L3100.3425, L504.2610, L800.1280, L3200.1100, L503.6030, L3400.0700, L100.0100, L506.0400, L3300.0700, L3100.5450, L3100.5020, L500.4050, L803.2200, L3410.9992, L501.6710, L3000.0375, L503.6550 ####[facility] [address] [place], [place], [address] GAP 13 Normal 5-15 [facility] Comment on above: Performed By: #### L 300.3900, L501.4700, L3130.0010, L3890.6006, L501.9985, L3300.0100, L501.5101, L500.4100, L501.9520, L3100.2300, L3300.1200, L3100.3425, L504.2610, L800.1280, L3200.1100, L503.6030, L3400.0700, L100.0100, L506.0400, L3300.0700, L3100.5450, L3100.5020, L500.4050, L803.2200, L3410.9992, L501.6710, L3000.0375, L503.6550 ####[facility] [address] [facility]. [place], [place], [id number] GFR/1.73 sq M.predicted among non-blacks MDRD (S/P/Bld) [Vol rate/Area] 49 mL/min/{1.73_m2} Low >60 [facility] Comment on above: Result Comment: mL/m in/1.73m2 CKD-EPI Creatinine Equation (2020) Performed By: #### L 300.3900, L501.4700, L3130.0010, L3890.6006, L501.9985, L3300.0100, L501.5101, L500.4100, L501.9520, L3100.2300, L3300.1200, L3100.3425, L504.2610, L800.1280, L3200.1100, L503.6030, L3400.0700, L100.0100, L506.0400, L3300.0700, L3100.5450, L3100.5020, L500.4050, L803.2200, L3410.9992, L501.6710, L3000.0375, L503.6550 ####[facility] [address] [place], [place], [id number] Globulin (S) [Mass/Vol] 3.5 g/dL Normal 2.2-4.2 [facility] Comment on above: Performed By: #### L 300.3900, L501.4700, L3130.0010, L3890.6006, L501.9985, L3300.0100, L501.5101, L500.4100, L501.9520, L3100.2300, L3300.1200, L3100.3425, L504.2610, L800.1280, L3200.1100, L503.6030, L3400.0700, L100.0100, L506.0400, L3300.0700, L3100.5450, L3100.5020, L500.4050, L803.2200, L3410.9992, L501.6710, L3000.0375, L503.6550 ####[facility] [address] [place], [place], [id number] Glucose [Mass/Vol] 166 mg/dL High 70-99 [facility] Comment on above: Performed By: #### L 300.3900, L501.4700, L3130.0010, L3890.6006, L501.9985, L3300.0100, L501.5101, L500.4100, L501.9520, L3100.2300, L3300.1200, L3100.3425, L504.2610, L800.1280, L3200.1100, L503.6030, L3400.0700, L100.0100, L506.0400, L3300.0700, L3100.5450, L3100.5020, L500.4050, L803.2200, L3410.9992, L501.6710, L3000.0375, L503.6550 ####[facility] [address] [facility]. [place], [place], [id number] Potassium [Moles/Vol] 4.2 mmol/L Normal 3.3-5.1 [facility] Comment on above: Performed By: #### L 300.3900, L501.4700, L3130.0010, L3890.6006, L501.9985, L3300.0100, L501.5101, L500.4100, L501.9520, L3100.2300, L3300.1200, L3100.3425, L504.2610, L800.1280, L3200.1100, L503.6030, L3400.0700, L100.0100, L506.0400, L3300.0700, L3100.5450, L3100.5020, L500.4050, L803.2200, L3410.9992, L501.6710, L3000.0375, L503.6550 ####[facility] [address] [place], [address] Sodium [Moles/Vol] 139 mmol/L Normal 133-145 [facility] Comment on above: Performed By: #### L 300.3900, L501.4700, L3130.0010, L3890.6006, L501.9985, L3300.0100, L501.5101, L500.4100, L501.9520, L3100.2300, L3300.1200, L3100.3425, L504.2610, L800.1280, L3200.1100, L503.6030, L3400.0700, L100.0100, L506.0400, L3300.0700, L3100.5450, L3100.5020, L500.4050, L803.2200, L3410.9992, L501.6710, L3000.0375, L503.6550 ####[facility] [address] [place], [place], [id number] T PROT 7.5 g/dL Normal 5.9-8.4 [facility] Comment on above: Performed By: #### L 300.3900, L501.4700, L3130.0010, L3890.6006, L501.9985, L3300.0100, L501.5101, L500.4100, L501.9520, L3100.2300, L3300.1200, L3100.3425, L504.2610, L800.1280, L3200.1100, L503.6030, L3400.0700, L100.0100, L506.0400, L3300.0700, L3100.5450, L3100.5020, L500.4050, L803.2200, L3410.9992, L501.6710, L3000.0375, L503.6550 ####[facility] [address] [facility] [place], [place], [id number] Urea nitrogen [Mass/Vol] 18 mg/dL Normal 4-19 [facility] Comment on above: Performed By: #### L 300.3900, L501.4700, L3130.0010, L3890.6006, L501.9985, L3300.0100, L501.5101, L500.4100, L501.9520, L3100.2300, L3300.1200, L3100.3425, L504.2610, L800.1280, L3200.1100, L503.6030, L3400.0700, L100.0100, L506.0400, L3300.0700, L3100.5450, L3100.5020, L500.4050, L803.2200, L3410.9992, L501.6710, L3000.0375, L503.6550 ####[facility] [address] [facility]. [place], [place], [id number] Eosinophil percentageOrdered By: [facility] on 09-12-2024 Eosinophils/100 WBC (Bld) 2.3 % 0-5 [facility] Erythrocyte distribution wid th ratioOrdered By: Maykel [facility] on 09-12-2024 Erythrocyte distribution width (RBC) [Ratio] 14.6 % 11.6-14.6 [facility] Erythrocyte distribution wid th standard deviationOrdered By: [facility] on 09-12-2024 Erythrocyte distribution width (RBC) [Ratio] 44.9 fl High 35.1-43.9 [facility] Ferritinon 09-12-2024 Ferritin [Mass/Vol] 56 ng/mL Normal 22-378 [facility] Comment on above: Performed By: #### L 300.3900, L501.4700, L3130.0010, L3890.6006, L501.9985, L3300.0100, L501.5101, L500.4100, L501.9520, L3100.2300, L3300.1200, L3100.3425, L504.2610, L800.1280, L3200.1100, L503.6030, L3400.0700, L100.0100, L506.0400, L3300.0700, L3100.5450, L3100.5020, L500.4050, L803.2200, L3410.9992, L501.6710, L3000.0375, L503.6550 ####[facility] [address] [place], [address] Gamma glutamyl transferase ( GGT) measurementOrdered By: Maykel Sloan on 09-12-2024 Amylase [Catalytic activity/Vol] 71 U/L High 0-60 [facility] Glomerular filtration rate ( GFR) estimation/1.73 sq m using serum, plasma, or whole bOrdered By: Maykel Sloan on 09-12-2024 GFR/1.73 sq M.predicted among non-blacks MDRD (S/P/Bld) [Vol rate/Area] 49 mL/min/{1.73_m2} Low >60 [facility] Comment on above: mL/min/1.73m2 CKD-EP I Creatinine Equation (2020) HIVon 09-12-2024 HIV Non-Reactive Normal Nonreactive [facility] Comment on above: Result Comment: Non- ReactiveReactiveRepeatedly reactive samples must be confirmed according toCCO recommended confirmatory algorithms. The subresults foreither HIVAG or AHIV can be used as an aid in the selectionof the confirmation algorithm for reactive samples.Send out specimens with Reactive results to [facility] forconfirmation.Order the HIV antibody detection and differentiation:lc#[id number] Performed By: #### L 300.3900, L501.4700, L3130.0010, L3890.6006, L501.9985, L3300.0100, L501.5101, L500.4100, L501.9520, L3100.2300, L3300.1200, L3100.3425, L504.2610, L800.1280, L3200.1100, L503.6030, L3400.0700, L100.0100, L506.0400, L3300.0700, L3100.5450, L3100.5020, L500.4050, L803.2200, L3410.9992, L501.6710, L3000.0375, L503.6550 ####[facility] [address] [facility] [place], [address] Hematocrit Auto (Bld) [Volum e fraction]Ordered By: Maykel Sloan on 09-12-2024 Hematocrit (Bld) [Volume fraction] 34.1 % Low 37-47 [facility] Hemoglobin A1con 09-12-2024 HbA1c (Bld) [Mass fraction] 8.6 % High <=5.6 [facility] Comment on above: Result Comment: Norm al < 5.7 % Prediabetic 5.7 - 6.4 % Diabetic >or= 6.5 % Please note range changes. Performed By: #### L 300.3900, L501.4700, L3130.0010, L3890.6006, L501.9985, L3300.0100, L501.5101, L500.4100, L501.9520, L3100.2300, L3300.1200, L3100.3425, L504.2610, L800.1280, L3200.1100, L503.6030, L3400.0700, L100.0100, L506.0400, L3300.0700, L3100.5450, L3100.5020, L500.4050, L803.2200, L3410.9992, L501.6710, L3000.0375, L503.6550 ####[facility] [address] [place], [address] Hemoglobin A1c percentageOrd ered By: Maykel Sloan on 09-12-2024 HbA1c (Bld) [Mass fraction] 8.6 % High <5.7 [facility] Comment on above: Normal < 5.7 % Predi abetic 5.7 - 6.4 % Diabetic >or= 6.5 % Please note range changes. Hemoglobin measurementOrdere d By: Maykel Sloan on 09-12-2024 Hemoglobin (Bld) [Mass/Vol] 11.0 g/dL Low 12.0-15.0 [facility] IgEOrdered By: Maykel Sloan on 09-12-2024 IgE 30 IU/mL 6-495 [facility] Immature granulocytes/100 WB C Auto (Bld)Ordered By: Maykel Sloan on 09-12-2024 Immature granulocytes/100 WBC (Bld) 0.300 % 0.0-0.9 [facility] Comment on above: IG% - Immature Granu locytes (promyelocytes, myelocytes and metamyelocytes) > 1% indicates that a LEFT SHIFT is Present. International normalized rat io (INR) calculationOrdered By: Maykel Sloan on 09-12-2024 INR Coag (Bld) [Relative time] 2.9 {INR} [facility] Interpretation of serum or p lasma protein pattern by immunofixation (narrative resultOrdered By: Maykel Sloan on 09-12-2024 Protein Fractions Immunofixation Dominic [Interp] Not Observed g/dL Not Observed [facility] Iron measurement (mass/mass) Ordered By: Myakel Sloan on 09-12-2024 Iron (Unsp spec) [Mass/Mass] 37 ug/dL Low 50-170 [facility] Iron+Iron Binding Capacityon 09-12-2024 Iron [Mass/Vol] 37 ug/dL Low 50-170 [facility] Comment on above: Performed By: #### L 300.3900, L501.4700, L3130.0010, L3890.6006, L501.9985, L3300.0100, L501.5101, L500.4100, L501.9520, L3100.2300, L3300.1200, L3100.3425, L504.2610, L800.1280, L3200.1100, L503.6030, L3400.0700, L100.0100, L506.0400, L3300.0700, L3100.5450, L3100.5020, L500.4050, L803.2200, L3410.9992, L501.6710, L3000.0375, L503.6550 ####[facility] [address] [place], [place], [id number] UIBC 260 ug/dL Normal 228-428 [facility] Comment on above: Performed By: #### L 300.3900, L501.4700, L3130.0010, L3890.6006, L501.9985, L3300.0100, L501.5101, L500.4100, L501.9520, L3100.2300, L3300.1200, L3100.3425, L504.2610, L800.1280, L3200.1100, L503.6030, L3400.0700, L100.0100, L506.0400, L3300.0700, L3100.5450, L3100.5020, L500.4050, L803.2200, L3410.9992, L501.6710, L3000.0375, L503.6550 ####[facility] [address] [place], [address] LDHon 09-12-2024 LDH 222 U/L Normal 84-246 [facility] Comment on above: Order Comment: 1 Performed By: #### L 300.3900, L501.4700, L3130.0010, L3890.6006, L501.9985, L3300.0100, L501.5101, L500.4100, L501.9520, L3100.2300, L3300.1200, L3100.3425, L504.2610, L800.1280, L3200.1100, L503.6030, L3400.0700, L100.0100, L506.0400, L3300.0700, L3100.5450, L3100.5020, L500.4050, L803.2200, L3410.9992, L501.6710, L3000.0375, L503.6550 ####[facility] [address] [place], [address] LDL calc ser/plasOrdered By: Maykel Sloan on 09-12-2024 Cholesterol in LDL [Mass/Vol] 52 mg/dL [facility] Comment on above: Aofpghynay=121-135 m g/dL & Higher Ewix=666 mg/dL or greater Laboratory - Chemistry and C hemistry - challengeOrdered By: Maykel Sloan on 09-12-2024 AST [Catalytic activity/Vol] 35 U/L High <32 [facility] Lactate dehydrogenase (LDH) measurementOrdered By: Maykel Sloan on 09-12-2024 LDH [Catalytic activity/Vol] 222 U/L 84-246 [facility] Lipid Profileon 09-12-2024 CHOL:HDL 4.35 Normal [facility] Comment on above: Performed By: #### L 300.3900, L501.4700, L3130.0010, L3890.6006, L501.9985, L3300.0100, L501.5101, L500.4100, L501.9520, L3100.2300, L3300.1200, L3100.3425, L504.2610, L800.1280, L3200.1100, L503.6030, L3400.0700, L100.0100, L506.0400, L3300.0700, L3100.5450, L3100.5020, L500.4050, L803.2200, L3410.9992, L501.6710, L3000.0375, L503.6550 ####[facility] [address] [place], [address] Cholesterol [Mass/Vol] 193 mg/dL Normal <=200 [facility] Comment on above: Result Comment: Chol esterol level, Desirable <200 mg/dLBorderline high cholesterol 200-239 mg/dLHigh cholesterol >=240 mg/dLRecommendations of the NCEP Adult Treatment Panel for thefollowing risk-cutoff thresholds for the [place] Americanpopulation. Performed By: #### L 300.3900, L501.4700, L3130.0010, L3890.6006, L501.9985, L3300.0100, L501.5101, L500.4100, L501.9520, L3100.2300, L3300.1200, L3100.3425, L504.2610, L800.1280, L3200.1100, L503.6030, L3400.0700, L100.0100, L506.0400, L3300.0700, L3100.5450, L3100.5020, L500.4050, L803.2200, L3410.9992, L501.6710, L3000.0375, L503.6550 ####[facility] [address] [facility] [place], [address] Cholesterol in HDL [Mass/Vol] 44 mg/dL Normal [facility] Comment on above: Result Comment: Xiomy onal Cholesterol Education Program (NCEP) guidelines:<40 mg/dL: Low HDL-cholesterol (major risk factor for CHD)>= 60 mg/dL: High HDL-cholesterol (negative risk factor forCHD)HDL-cholesterol is affected by a number of factors, e.g.smoking, exercise, hormones, sex and age. Performed By: #### L 300.3900, L501.4700, L3130.0010, L3890.6006, L501.9985, L3300.0100, L501.5101, L500.4100, L501.9520, L3100.2300, L3300.1200, L3100.3425, L504.2610, L800.1280, L3200.1100, L503.6030, L3400.0700, L100.0100, L506.0400, L3300.0700, L3100.5450, L3100.5020, L500.4050, L803.2200, L3410.9992, L501.6710, L3000.0375, L503.6550 ####[facility] [address] [facility] [place], [address] Cholesterol in LDL [Mass/Vol] 52 mg/dL Normal [facility] Comment on above: Result Comment: Bord djwdsr=410-036 mg/dL Higher Urxi=852 mg/dL or greater Performed By: #### L 300.3900, L501.4700, L3130.0010, L3890.6006, L501.9985, L3300.0100, L501.5101, L500.4100, L501.9520, L3100.2300, L3300.1200, L3100.3425, L504.2610, L800.1280, L3200.1100, L503.6030, L3400.0700, L100.0100, L506.0400, L3300.0700, L3100.5450, L3100.5020, L500.4050, L803.2200, L3410.9992, L501.6710, L3000.0375, L503.6550 ####[facility] [address] [facility] [place], [address] Cholesterol in VLDL [Mass/Vol] 96 mg/dL High 5-40 [facility] Comment on above: Performed By: #### L 300.3900, L501.4700, L3130.0010, L3890.6006, L501.9985, L3300.0100, L501.5101, L500.4100, L501.9520, L3100.2300, L3300.1200, L3100.3425, L504.2610, L800.1280, L3200.1100, L503.6030, L3400.0700, L100.0100, L506.0400, L3300.0700, L3100.5450, L3100.5020, L500.4050, L803.2200, L3410.9992, L501.6710, L3000.0375, L503.6550 ####[facility] [address] [facility] [place], [address] Triglyceride [Mass/Vol] 482 mg/dL High [facility] Comment on above: Result Comment: The drugs N-Acetylcysteine and Metamizole may falselydepress this assay.Normal range: <150 mg/dLBorderline High: 150-199 mg/dLHigh: 200-499 mg/dLVery High: >500 mg/dL Performed By: #### L 300.3900, L501.4700, L3130.0010, L3890.6006, L501.9985, L3300.0100, L501.5101, L500.4100, L501.9520, L3100.2300, L3300.1200, L3100.3425, L504.2610, L800.1280, L3200.1100, L503.6030, L3400.0700, L100.0100, L506.0400, L3300.0700, L3100.5450, L3100.5020, L500.4050, L803.2200, L3410.9992, L501.6710, L3000.0375, L503.6550 ####[facility] [address] [place], [address] MCV (mean corpuscular volume ) determinationOrdered By: Maykel Sloan on 09-12-2024 MCV (RBC) [Entitic vol] 84.2 fL 81-99 [facility] Mean corpuscular hemoglobin (MCH) determinationOrdered By: Maykel Sloan on 09-12-2024 MCH (RBC) [Entitic mass] 27.2 pg 27.0-32.0 [facility] Mean corpuscular hemoglobin concentration (MCHC) determinationOrdered By: Maykel Sloan on 09-12-2024 MCHC (RBC) [Mass/Vol] 32.3 g/dL 32-36 [facility] Mean platelet volume determi nationOrdered By: Maykel Sloan on 09-12-2024 Platelet mean volume (Bld) [Entitic vol] 11.7 fL 6.2-12.0 [facility] Monocyte percentageOrdered B y: Maykel Sloan on 09-12-2024 Monocytes/100 WBC (Bld) 7.1 % 0-10 [facility] Neutrophil percentageOrdered By: Maykel Sloan on 09-12-2024 Neutrophils/100 WBC (Bld) 54.5 % 47-70 [facility] No Panel InformationOrdered By: Maykel Sloan on 09-12-2024 Addendum Document Comment . [facility] Comment on above: Protein electrophore sis scan will follow via computer,mail, or rough rounder machine delivery. Hepatitis C Antibody Comment Comment . [facility] Comment on above: Not infected with HC V unless early or acute infection issuspected (which may be delayed in an immunocompromisedindividual), or other evidence exists to indicate HCVinfection. HIV (1&2) Antibody Non-Reactive Nonreactive [facility] Comment on above: Non-ReactiveReactive Repeatedly reactive samples must be confirmed according to CDC recommended confirmatory algorithms. The subresults for either HIVAG or AHIV can be used as an aid in the selection of the confirmation algorithm for reactive samples.Send out specimens with Reactive results to [facility] for confirmation.Order the HIV antibody detection and differentiation: #[id number] Unsaturated Iron Binding Capacity 260 ug/dL 228-428 [facility] 35 U/L High <32 [facility] 260 ug/dL 228-428 [facility] Comment . [facility] Non-Reactive Nonreactive [facility] Nucleated red blood cell per centageOrdered By: Maykel Sloan on 09-12-2024 Nucleated RBC/100 WBC (Bld) [Ratio] 0 % 0-5 [facility] Platelet countOrdered By: Preethi Sloan on 09-12-2024 Platelets (Bld) [#/Vol] 173 10*3/uL 150-450 [facility] Potassium measurement (mass/ volume)Ordered By: Maykel Sloan on 09-12-2024 Potassium (Unsp spec) [Mass/Vol] 4.2 mmol/L 3.3-5.1 [facility] Prothrombin Time w/INRon INR Coag (PPP) [Relative time] 2.9 {INR} Normal [facility] Comment on above: Order Comment: SEND FL/INR RESULTS TO Performed By: #### L 300.3900, L501.4700, L3130.0010, L3890.6006, L501.9985, L3300.0100, L501.5101, L500.4100, L501.9520, L3100.2300, L3300.1200, L3100.3425, L504.2610, L800.1280, L3200.1100, L503.6030, L3400.0700, L100.0100, L506.0400, L3300.0700, L3100.5450, L3100.5020, L500.4050, L803.2200, L3410.9992, L501.6710, L3000.0375, L503.6550 ####[facility] [address] [place], [place], [id number] PT Coag (PPP) [Time] 30.6 s High 11.7-14.9 [facility] Comment on above: Order Comment: SEND FL/INR RESULTS TO Performed By: #### L 300.3900, L501.4700, L3130.0010, L3890.6006, L501.9985, L3300.0100, L501.5101, L500.4100, L501.9520, L3100.2300, L3300.1200, L3100.3425, L504.2610, L800.1280, L3200.1100, L503.6030, L3400.0700, L100.0100, L506.0400, L3300.0700, L3100.5450, L3100.5020, L500.4050, L803.2200, L3410.9992, L501.6710, L3000.0375, L503.6550 ####[facility] [address] [place], [place], [id number] Prothrombin timeOrdered By: Maykel Sloan on 09-12-2024 PT Coag (PPP) [Time] 30.6 s High 11.7-14.9 [facility] RBC Auto (Bld) [#/Vol]Ordere d By: Maykel Sloan on 09-12-2024 RBC (Bld) [#/Vol] 4.05 10*6/uL Low 4.2-5.4 [facility] Screening total cholesterol/ high density lipoprotein (HDL) cholesterol ratioOrdered By: Maykel Sloan on 09-12-2024 Cholesterol.total/Jahaira sterol in HDL [Mass ratio] 4.35 {ratio} [facility] Serum DNA double strand anti body assay (units/volume)Ordered By: Maykel Sloan on 09-12-2024 DNA double strand Ab Qn (S) [facility] Comment on above: Test not performed Serum Scl-70 antibody assay (units/volume)Ordered By: Maykel Sloan on 09-12-2024 SCL-70 extractable nuclear Ab Qn (S) [facility] Comment on above: Test not performed Serum classic neutrophil cyt oplasmic antibody assay (units/volume)Ordered By: Maykel Sloan on 09-12-2024 Neutrophil cytoplasmic Ab.classic Qn (S) <1:20 titer Neg:<1:20 [facility] Serum creatinine measurement (mass/volume)Ordered By: Maykel Sloan on 09-12-2024 Creatinine [Mass/Vol] 1.15 mg/dL 0.70-1.20 [facility] Serum globulin measurement ( mass/volume)Ordered By: Maykel Sloan on 09-12-2024 Globulin (S) [Mass/Vol] 3.7 g/dL 2.2-3.9 [facility] Serum glucose measurement (m ass/volume)Ordered By: Maykel Sloan on 09-12-2024 Glucose [Mass/Vol] 166 mg/dL High 70-99 [facility] Serum immunoglobulin kappa l ight chains/immunoglobulin lambda light chains mass ratioOrdered By: Maykel Sloan on 09-12-2024 Immunoglobulin light chains.kappa/Immunoglob ulin light chains.lambda (S) [Mass ratio] 1.05 0.26-1.65 [facility] Serum mitochondria antibody detectionOrdered By: Maykel Sloan on 09-12-2024 Mitochondria Ab Ql (S) <20.0 Units 0.0-20.0 [facility] Comment on above: Negative 0.0 - 20.0 Equivocal 20.1 - 24.9 Positive >24.9Mitochondrial (M2) Antibodies are found in 90-96% ofpatients with primary biliary cirrhosis. Serum or plasma C reactive p rotein measurement (mass/volume)Ordered By: Maykel Sloan on 09-12-2024 CRP [Mass/Vol] mg/L 0.0-3.0 [facility] Serum or plasma IgA measurem ent (mass/volume)Ordered By: Maykel Sloan on 09-12-2024 IgA [Mass/Vol] 279 mg/dL 64-422 [facility] Serum or plasma IgG measurem ent (mass/volume)Ordered By: Maykel Sloan on 09-12-2024 IgG [Mass/Vol] 1462 mg/dL 586-1602 [facility] Serum or plasma actin IgG an tibody assay (units/volume)Ordered By: Maykel Sloan on 09-12-2024 Actin IgG Qn 5 Units 0-19 [facility] Comment on above: Negative 0 - 19 Weak positive 20 - 30 Moderate to strong positive >30 Actin Antibodies are found in 52-85% of patients with autoimmune hepatitis or chronic active hepatitis and in 22% of patients with primary biliary cirrhosis. Serum or plasma alanine marcum otransferase (ALT) measurementOrdered By: Maykel Sloan on 09-12-2024 ALT [Catalytic activity/Vol] 22 U/L <35 [facility] Serum or plasma albumin sebastián urement (mass/volume)Ordered By: Maykel Sloan on 09-12-2024 Albumin [Mass/Vol] 4.0 g/dL 3.4-4.8 [facility] Serum or plasma albumin/glob ulin mass ratioOrdered By: Maykel Sloan on 09-12-2024 Albumin/Globulin [Mass ratio] 1.1 {ratio} 0.9-2.4 [facility] Serum or plasma alkaline mahamed sphatase measurementOrdered By: Maykel Sloan on 09-12-2024 ALP [Catalytic activity/Vol] 93 U/L 35-104 [facility] Serum or plasma alpha 1 glob ulin measurement by electrophoresis (mass/volume)Ordered By: Maykel Sloan on 09-12-2024 Alpha 1 globulin Elph [Mass/Vol] 0.3 g/dL 0.0-0.4 [facility] Alpha 1 globulin Elph [Mass/Vol] 0.9 g/dL 0.4-1.0 [facility] Serum or plasma beta globuli n measurement by electrophoresis (mass/volume)Ordered By: Maykel Sloan on 09-12-2024 Beta globulin Elph [Mass/Vol] 1.1 g/dL 0.7-1.3 [facility] Serum or plasma calcium sebastián urement (mass/volume)Ordered By: Maykel Sloan on 09-12-2024 Calcium [Mass/Vol] 9.8 mg/dL 7.6-11.0 [facility] Serum or plasma carcinoembry onic antigen measurement (mass/volume)Ordered By: Maykel Sloan on 09-12-2024 Carcinoembryonic Ag [Mass/Vol] 1.7 ng/mL 0.0-4.7 [facility] Comment on above: Nonsmokers <3.9 Smok ers [facility] Electrochemiluminescence Immunoassay(ECLIA)Values obtained with different assay methods or kitscannot be used interchangeably. Results cannot beinterpreted as absolute evidence of the presence orabsence of malignant disease. Serum or plasma cholesterol in HDL measurement (mass/volume)Ordered By: Maykel Sloan on 09-12-2024 Cholesterol in HDL [Mass/Vol] 44 mg/dL >40 [facility] Comment on above: National Cholesterol Education Program (NCEP) guidelines:<40 mg/dL: Low HDL-cholesterol (major risk factor for CHD)>= 60 mg/dL: High HDL-cholesterol (negative risk factor for CHD)HDL-cholesterol is affected by a number of factors, e.g. smoking, exercise, hormones, sex and age. Serum or plasma cholesterol measurement (mass/volume)Ordered By: Maykel Sloan on 09-12-2024 Cholesterol [Mass/Vol] 193 mg/dL <201 [facility] Comment on above: Cholesterol level, D esirable <200 mg/dLBorderline high cholesterol 200-239 mg/dLHigh cholesterol >=240 mg/dLRecommendations of the NCEP Adult Treatment Panel for the following risk-cutoff thresholds for the [place] population. Serum or plasma ferritin anahi surement (mass/volume)Ordered By: Maykel Sloan on 09-12-2024 Ferritin [Mass/Vol] 56 ng/mL 22-378 [facility] Serum or plasma gamma globul in measurement by electrophoresis (mass/volume)Ordered By: Maykel Sloan on 09-12-2024 Gamma globulin Elph [Mass/Vol] 1.4 g/dL 0.4-1.8 [facility] Serum or plasma hepatitis B virus surface antigen detection by immunoassayOrdered By: Maykel Sloan on 09-12-2024 HBV surface Ag IA Ql Negative Negative [facility] Serum or plasma immunoelectr ophoresis interpretation (nominal result)Ordered By: Maykel Sloan on 09-12-2024 Interpretation IEP [Interp] Comment . [facility] Comment on above: No monoclonality det ected. Serum or plasma immunoglobul in kappa light chains measurement (mass/volume)Ordered By: Maykel Sloan on 09-12-2024 Immunoglobulin light chains.kappa [Mass/Vol] 27.2 mg/L High 3.3-19.4 [facility] Serum or plasma iron saturat ion measurement (mass fraction)Ordered By: Maykel Sloan on 09-12-2024 Iron saturation [Mass fraction] 12.5 % Low 13-59 [facility] Comment on above: Previous reported re sult: 12.0 %Edited by: JIMMY on 09/12/24:1520 AMENDED REPORT 09/12/24 1520 IRON SATURATION previously reported as: 12.0 L % Serum or plasma protein sebastián urement (mass/volume)Ordered By: Maykel Sloan on 09-12-2024 Protein [Mass/Vol] 7.4 g/dL 6.0-8.5 [facility] Serum or plasma urea nitroge n measurement (mass/volume)Ordered By: Maykel Sloan on 09-12-2024 Urea nitrogen [Mass/Vol] 18 mg/dL 4-19 [facility] Serum perinuclear neutrophil cytoplasmic antibody titer by immunofluorescenceOrdered By: Maykel Sloan on 09-12-2024 Neutrophil cytoplasmic Ab.perinuclear IF (S) [Titer] <1:20 titer Neg:<1:20 [facility] Comment on above: The presence of posi tive fluorescence exhibiting P-ANCA orC-ANCA patterns alone is not specific for the diagnosis ofWegener's Granulomatosis (WG) or microscopic polyangiitis.Decisions about treatment should not be based solely onANCA IFA results. The International ANCA Group Consensusrecommends follow up testing of positive sera with both FL-3 and MPO-ANCA enzyme immunoassays. As many as 5% serumsamples are positive only by EIA. Ref. AM J Clin Zlgqhx5423;111:507-513. Sodium levelOrdered By: Mary Sloan on 09-12-2024 Sodium [Moles/Vol] 139 mmol/L 133-145 [facility] T4 Free Directon 09-12-2024 T4 FREE DIRECT 1.20 ng/dL Normal 0.76-1.46 [facility] Comment on above: Performed By: #### L 300.3900, L501.4700, L3130.0010, L3890.6006, L501.9985, L3300.0100, L501.5101, L500.4100, L501.9520, L3100.2300, L3300.1200, L3100.3425, L504.2610, L800.1280, L3200.1100, L503.6030, L3400.0700, L100.0100, L506.0400, L3300.0700, L3100.5450, L3100.5020, L500.4050, L803.2200, L3410.9992, L501.6710, L3000.0375, L503.6550 ####[facility] [address] [place], [address] T4 freeOrdered By: Maykel beckwith on 09-12-2024 Free T4 [Mass/Vol] 1.20 ng/dL 0.76-1.46 [facility] TSH DL <= 0.005 mIU/L QnOrde red By: Maykel Sloan on 09-12-2024 TSH Qn 0.817 uIU/mL 0.300-4.200 [facility] Thyroid Stim Hormone (TSH)on 09-12-2024 TSH 0.817 uIU/mL Normal 0.300-4.200 [facility] Comment on above: Performed By: #### L 300.3900, L501.4700, L3130.0010, L3890.6006, L501.9985, L3300.0100, L501.5101, L500.4100, L501.9520, L3100.2300, L3300.1200, L3100.3425, L504.2610, L800.1280, L3200.1100, L503.6030, L3400.0700, L100.0100, L506.0400, L3300.0700, L3100.5450, L3100.5020, L500.4050, L803.2200, L3410.9992, L501.6710, L3000.0375, L503.6550 ####[facility] [address] [place], [address] Total proteinOrdered By: Pamela Sloan on 09-12-2024 Protein [Mass/Vol] 7.5 g/dL 5.9-8.4 [facility] Triglycerides measurementOrd ered By: Maykel Sloan on 09-12-2024 Triglyceride [Mass/Vol] 482 mg/dL High <199 [facility] Comment on above: The drugs N-Acetylcy steine and Metamizole may falsely depress this assay. Normal range: <150 mg/dLBorderline High: 150-199 mg/dLHigh: 200-499 mg/dLVery High: >500 mg/dL White blood cell (WBC) count Ordered By: Maykel Sloan on 09-12-2024 WBC (Bld) [#/Vol] 5.8 10*3/uL 4.4-11.0 [facility] CNOVon 08-24-2024 CNOV Office Visit (FAMPWS ) -------- LAISHA WALKER ([id number]) 1950 F Date Time Provider Department 08/24/24 11:00 AM FLAKO TRACY FAMPWS During your visit today, we recorded the following information about you: Pulse Respiration Blood pressure Weight 78/minute 16/minute 120/70 91.6 kg Flako Tracy MD 08/24/2024 5:31 PM Signed Chief Complaint Patient presents with: 6 Month Exam HPI Laisha Walker is a 74 year old female who presents here today for 6 month follow up. Has an advanced directive. Denies any bowel, Gi, or urinary issues. Uses OTC stool softeners as needed. Uses Anusol rectal cream BID as needed for hemorrhoids. Chronic constipation. Hx of left kidney cancer. Follows with Gastro Dr. Coates for liver. Getting CT done routinely every 3-6 months. Pt was referred to Urology at last visit in Feb for chronic UTI. GERD: Sx controlled with Protonix 40 mg 1 pill BID. DM: Checking BS once x a day with FBS 150-180. Taking Glucotrol xl 10 mg 1 pill BID. Denies any hypoglcyemic episodes. Some tingling in the toes of both feet. Follows with [facility], has appt next month. Does not follow with any Podiatrists for foot exams. HTN/A-fib: Follows with Social Welfare Administrator at [facility]. Taking Losartan 25 mg half pill daily and Lopressor 50 mg 1 pill BID. No chest pains, dizziness, or Shortness of Breath. Has pacemaker. Taking coumadin 2.5 mg taking 2.5 mg on Tue//Tue/ and 5 mg Tue/Tue/Tue which is managed by Social Welfare Administrator. Lipid: Taking Crestor 20 mg daily, she states that this was reduced from BID due to hand cramps. Uses Tylenol as needed for chronic hip, groin, and back pain. Past medical history, appointments, medications, allergies reviewed. Previous Medical History PAST MEDICAL HISTORY Diagnosis Date Atrial fibrillation (HCC) SEES DR. BARRERA Carotid stenosis, asymptomatic CVA (cerebral vascular accident) (HCC) post op after 2017 bilateral knee replacements - per pt was told by neurology that it was a questionable stroke Diabetes mellitus type 2 in obese 01/22/2023 DVT (deep venous thrombosis) (HCC) post op Dysthymic disorder Depression (non-psychotic) Esophageal reflux Essential hypertension, benign Goiter, unspecified Goiter Liver cirrhosis (HCC) Macular degeneration (senile) of retina, unspecified Macular degeneration Other and unspecified hyperlipidemia Renal carcinoma, right (HCC) S/P placement of cardiac pacemaker 01/25/2023 Patient underwent implantation of [place] permanent pacemaker with right atrial and right ventricular apex leads with Dr. Steele on 01/24/2023. Type 2 diabetes mellitus (HCC) Previous Surgical History PAST SURGICAL HISTORY Procedure Laterality Date APPENDECTOMY 1963 RUPTURED APPENDIX ARTHRP KNE CONDYLEANDPLATU MEDIALANDLAT COMPARTMENTS Bilateral 2017 CHOLECYSTECTOMY 1996 Cholecystectomy COLONOSCOPY [facility] EGD EUS 06/11/2020 benign leiomyoma GE junction, mild antral gastropathy, fatty pancreas, likely cirrhotic liver, prominent dilated portal vein NEPHRECTOMY PARTIAL Right 05/18/2019 robotic PAST SURGICAL HISTORY OF 07/15/1999 LEFT SHOULDER PAST SURGICAL HISTORY OF Left 2018 REPAIR OF LEFT KNEE FRACTURE TOTAL ABDOMINAL HYSTERECT W/WO RMVL TUBE OVARY 1985 Hysterectomy, JERRY Family History FAMILY HISTORY Problem Relation Age of Onset Arthritis Mother Hypertension Mother Dementia Mother Heart Father [place] Hypertension Father Heart disease Father other (DEPRESSION) Sister Stroke Sister Diabetes Brother Heart Attack Brother Heart disease Brother other (DEPRESSION) Brother Hypertension Brother Cancer No Family History none Patient Allergies ALLERGIES Allergen Reactions Gabapentin Other: See Comments Dizziness Accupril [Quinapril* Other: See Comments Bextra [Valdecoxib] GI Upset Celebrex [Celecoxib] GI Upset Codeine Other: See Comments Entex La [Phenyleph* Other: See Comments Glucophage [Metform* Other: See Comments Lipitor [Atorvastat* Other: See Comments Lodine [Etodolac] GI Upset Naprosyn [Naproxen] Other: See Comments Nsaids (Non-Steroid* Other: See Comments Pravachol [Pravasta* Other: See Comments Worsening abdominal pain Sulfa (Sulfonamide * GI Upset Ultracet [Tramadol-* Other: See Comments Vicodin [Hydrocodon* Other: See Comments Vioxx [Rofecoxib] Other: See Comments Zocor [Simvastatin] Other: See Comments Current Medications Current Outpatient Medications on File Prior to Visit Medication Sig pantoprazole DR (PROTONIX) 40 mg tablet Take 1 tablet by mouth every 12 hours. blood sugar diagnostic (BLOOD GLUCOSE TEST) test strip Test blood sugar(s) 1` times daily. Dx: Type 2 DM - Uncontrolled E11.65 Insulin: No glipiZIDE (GLUCOTROL XL) 10mg 24 hr tablet Take 1 tablet by mouth two times a day. metoprolol tartrate, sh (more content not included)... Normal [facility] CBC W Auto Differential pane l (Bld)on 08-13-2024 Basophils (Bld) [#/Vol] 0.08 10*3/uL Normal <0.11 [facility] Comment on above: Order Comment: Speci men Type: BLOOD SPECIMENOrdering Facility: [facility] Address: [address] [place] [address] Performed By: #### 5 7021-8 ####[facility] LABCLIA [id number] [place] [address] [place] Basophils/100 WBC (Bld) 1.3 % Normal [facility] Comment on above: Order Comment: Speci men Type: BLOOD SPECIMENOrdering Facility: [facility] Address: [address] [place] [address] Performed By: #### 5 7021-8 ####[facility] LABCLIA [id number] [place] [address] [place] Differential cell count method Nom (Bld) Auto Normal [facility] Comment on above: Order Comment: Speci men Type: BLOOD SPECIMENOrdering Facility: [facility] Address: [address] [place] [address] Performed By: #### 5 7021-8 ####[facility] LABCLIA [id number] [place] [address] [place] Eosinophils (Bld) [#/Vol] 0.12 10*3/uL Normal <0.46 [facility] Comment on above: Order Comment: Speci men Type: BLOOD SPECIMENOrdering Facility: [facility] Address: [address] [place] [address] Performed By: #### 5 7021-8 ####[facility] LABCLIA [id number] [place] [address] [place] Eosinophils/100 WBC (Bld) 1.9 % Normal [facility] Comment on above: Order Comment: Speci men Type: BLOOD SPECIMENOrdering Facility: [facility] Address: [address] [place] [address] Performed By: #### 5 7021-8 ####[facility] LABCLIA [id number] [place] [address] [place] Erythrocyte distribution width (RBC) [Ratio] 14.5 % Normal 11.5-15.0 [facility] Comment on above: Order Comment: Speci men Type: BLOOD SPECIMENOrdering Facility: [facility] Address: [address] [place] [address] Performed By: #### 5 7021-8 ####[facility] LABCLIA [id number] [address], [place] [address] [place] Hematocrit (Bld) [Volume fraction] 35.7 % Low 36.0-46.0 [facility] Comment on above: Order Comment: Speci men Type: BLOOD SPECIMENOrdering Facility: [facility] Address: [address] [place] [address] Performed By: #### 5 7021-8 ####[facility] LABCLIA [id number] [place] [address] [place] Hemoglobin (Bld) [Mass/Vol] 11.2 g/dL Low 11.5-15.5 [facility] Comment on above: Order Comment: Speci men Type: BLOOD SPECIMENOrdering Facility: [facility] Address: [address] [place] [address] Performed By: #### 5 7021-8 ####[facility] LABCLIA [id number] [place] [address] [place] Immature granulocytes (Bld) [#/Vol] 10*3/uL Normal <0.10 [facility] Comment on above: Order Comment: Speci men Type: BLOOD SPECIMENOrdering Facility: [facility] Address: [address] [place] [address] Performed By: #### 5 7021-8 ####[facility] LABCLIA [id number] [place] [id number] [place] Immature granulocytes/100 WBC (Bld) 0.3 % Normal [facility] Comment on above: Order Comment: Speci men Type: BLOOD SPECIMENOrdering Facility: [facility] Address: [address] [place] [address] Performed By: #### 5 7021-8 ####[facility] LABIA [id number] [place] [id number] [place] Lymphocytes (Bld) [#/Vol] 2.31 10*3/uL Normal 1.00-4.00 [facility] Comment on above: Order Comment: Speci men Type: BLOOD SPECIMENOrdering Facility: [facility] Address: [address] [place] [address] Performed By: #### 5 7021-8 ####[facility] LABIA [id number] [place] [address] [place] Lymphocytes/100 WBC (Bld) 36.8 % Normal [facility] Comment on above: Order Comment: Speci men Type: BLOOD SPECIMENOrdering Facility: [facility] Address: [address] [place] [address] Performed By: #### 5 7021-8 ####[facility] LABIA [id number] [place] [address] [place] MCH (RBC) [Entitic mass] 26.9 pg Normal 26.0-34.0 [facility] Comment on above: Order Comment: Speci men Type: BLOOD SPECIMENOrdering Facility: [facility] Address: [address] [place] [address] Performed By: #### 5 7021-8 ####[facility] LABIA [id number] [place] [id number] [place] MCHC (RBC) [Mass/Vol] 31.4 g/dL Normal 30.5-36.0 [facility] Comment on above: Order Comment: Speci men Type: BLOOD SPECIMENOrdering Facility: [facility] Address: [address] [place] [address] Performed By: #### 5 7021-8 ####[facility] LABCLIA [id number] [address] [address] [place] MCV (RBC) [Entitic vol] 85.6 fL Normal 80.0-100.0 [facility] Comment on above: Order Comment: Speci men Type: BLOOD SPECIMENOrdering Facility: [facility] Address: [address] [place] [address] Performed By: #### 5 7021-8 ####[facility] LABCLIA [id number] [place] [address] [place] Monocytes (Bld) [#/Vol] 0.52 10*3/uL Normal <0.87 [facility] Comment on above: Order Comment: Speci men Type: BLOOD SPECIMENOrdering Facility: [facility] Address: [address] [place] [address] Performed By: #### 5 7021-8 ####[facility] LABIA [id number] [place] [address] [place] Monocytes/100 WBC (Bld) 8.3 % Normal [facility] Comment on above: Order Comment: Speci men Type: BLOOD SPECIMENOrdering Facility: [facility] Address: [address] [place] [address] Performed By: #### 5 7021-8 ####[facility] LABIA [id number] [place] [address] [place] Neutrophils (Bld) [#/Vol] 3.22 10*3/uL Normal 1.45-7.50 [facility] Comment on above: Order Comment: Speci men Type: BLOOD SPECIMENOrdering Facility: [facility] Address: [address] [place] [address] Performed By: #### 5 7021-8 ####[facility] LABCLIA [id number] [place] [id number] [place] Neutrophils/100 WBC (Bld) 51.4 % Normal [facility] Comment on above: Order Comment: Speci men Type: BLOOD SPECIMENOrdering Facility: [facility] Address: [address] [place] [address] Performed By: #### 5 7021-8 ####[facility] LABCLIA [id number] [address] [address] [place] Nucleated RBC (Bld) [#/Vol] 10*3/uL Normal <0.01 [facility] Comment on above: Order Comment: Speci men Type: BLOOD SPECIMENOrdering Facility: [facility] Address: [address] [place] [address] Performed By: #### 5 7021-8 ####[facility] LABIA [id number] [place] [address] [place] Nucleated RBC/100 WBC (Bld) [Ratio] 0.0 /100 WBC Normal [facility] Comment on above: Order Comment: Speci men Type: BLOOD SPECIMENOrdering Facility: [facility] Address: [address] [place] [address] Performed By: #### 5 7021-8 ####[facility] LABIA [id number] [place] [address] [place] Platelet mean volume (Bld) [Entitic vol] 12.5 fL Normal 9.0-12.7 [facility] Comment on above: Order Comment: Speci men Type: BLOOD SPECIMENOrdering Facility: [facility] Address: [address] [place] [address] Performed By: #### 5 7021-8 ####[facility] LABIA [id number] [place] [id number] [place] Platelets (Bld) [#/Vol] 209 10*3/uL Normal 150-400 [facility] Comment on above: Order Comment: Speci men Type: BLOOD SPECIMENOrdering Facility: [facility] Address: [address] [place] [address] Performed By: #### 5 7021-8 ####[facility] LABCLIA [id number] [address] [address] [place] RBC (Bld) [#/Vol] 4.17 10*6/uL Normal 3.90-5.20 [facility] Comment on above: Order Comment: Speci men Type: BLOOD SPECIMENOrdering Facility: [facility] Address: [address] [place] [address] Performed By: #### 5 7021-8 ####[facility] LABCLIA [id number] [address] [address] [place] WBC (Bld) [#/Vol] 6.27 10*3/uL Normal 3.70-11.00 [facility] Comment on above: Order Comment: Speci men Type: BLOOD SPECIMENOrdering Facility: [facility] Address: [address] [place] [address] Performed By: #### 5 7021-8 ####[facility] LABCLIA [id number] [address] [address] [place] Comprehensive metabolic 2000 panelon 08-13-2024 Albumin [Mass/Vol] 4.0 g/dL Normal 3.9-4.9 [facility] Comment on above: Order Comment: Speci men Type: BLOOD SPECIMENOrdering Facility: [facility] Address: [address] [place] [address] Performed By: #### 2 4323-8, 75086-5 ####[facility] LABCLIA [id number] [address] [address] [place] ALP [Catalytic activity/Vol] 94 U/L Normal 34-123 [facility] Comment on above: Order Comment: Speci men Type: BLOOD SPECIMENOrdering Facility: [facility] Address: [address] [place] [address] Performed By: #### 2 4323-8, 85148-7 ####[facility] LABCLIA [id number] [facility] [address] [place] [address] [place] ALT [Catalytic activity/Vol] 18 U/L Normal 7-38 [facility] Comment on above: Order Comment: Speci men Type: BLOOD SPECIMENOrdering Facility: [facility] Address: [address] [place] [address] Performed By: #### 2 4323-8, 95389-9 ####[facility] LABCLIA [id number] [facility] [address] [place] [address] [place] Anion gap [Moles/Vol] 13 mmol/L Normal 8-15 [facility] Comment on above: Order Comment: Speci men Type: BLOOD SPECIMENOrdering Facility: [facility] Address: [address] [place] [address] Performed By: #### 2 4323-8, 73506-9 ####[facility] LABCLIA [id number] [address], [facility] [place] AST [Catalytic activity/Vol] 34 U/L Normal 13-35 [facility] Comment on above: Order Comment: Speci men Type: BLOOD SPECIMENOrdering Facility: [facility] Address: [address] [place] [address] Performed By: #### 2 4323-8, 93419-7 ####[facility] LABCLIA [id number] [address], [facility] [place] Bilirubin [Mass/Vol] 0.5 mg/dL Normal 0.2-1.3 [facility] Comment on above: Order Comment: Speci men Type: BLOOD SPECIMENOrdering Facility: [facility] Address: [address] [place] [address] Performed By: #### 2 4323-8, 50811-9 ####[facility] LABCLIA [id number] [address] [place] [address] [place] Calcium [Mass/Vol] 9.5 mg/dL Normal 8.5-10.2 [facility] Comment on above: Order Comment: Speci men Type: BLOOD SPECIMENOrdering Facility: [facility] Address: [address] [place], [place] [address] Performed By: #### 2 4323-8, 35099-8 ####[facility] LABCLIA [id number] [address] [address] [place] Chloride [Moles/Vol] 103 mmol/L Normal 98-107 [facility] Comment on above: Order Comment: Speci men Type: BLOOD SPECIMENOrdering Facility: [facility] Address: [address] [place], [place] [address] Performed By: #### 2 4323-8, 27828-3 ####[facility] LABCLIA [id number] [place] [address] [place] CO2 [Moles/Vol] 22 mmol/L Normal 22-30 [facility] Comment on above: Order Comment: Speci men Type: BLOOD SPECIMENOrdering Facility: [facility] Address: [address] [place] [address] Performed By: #### 2 4323-8, 02534-5 ####[facility] LABCLIA [id number] [place] [id number] [place] Creatinine [Mass/Vol] 1.04 mg/dL High 0.58-0.96 [facility] Comment on above: Order Comment: Speci men Type: BLOOD SPECIMENOrdering Facility: [facility] Address: [address] [place], [place] [address] Performed By: #### 2 4323-8, 91111-3 ####[facility] LABCLIA [id number] [place] [id number] [place] Creatinine and Glomerular filtration rate.predicted panel (S/P/Bld) 56 mL/min/1.73m??? Low >=60 [facility] Comment on above: Order Comment: Speci men Type: BLOOD SPECIMENOrdering Facility: [facility] Address: [address] [place] [address] Result Comment: Bhavani mated Glomerular Filtration Rate (eGFR) is calculated using the 2020 CKD-EPI creatinine equation. This equation utilizes serum creatinine, sex, and age as parameters. The creatinine assay has traceable calibration to isotope dilution-mass spectrometry. Refer to KDIGO guidelines for clinical interpretation. In patients with unstable renal function, e.g. those with acute kidney injury, the eGFR may not accurately reflect actual GFR. Performed By: #### 2 4323-8, 07854-2 ####[facility] LABIA [id number] [place] [address] [place] Glucose [Mass/Vol] 163 mg/dL High 74-99 [facility] Comment on above: Order Comment: Speci men Type: BLOOD SPECIMENOrdering Facility: [facility] Address: [address] [place] [address] Result Comment: The [place] Diabetes Association (ADA) provides guidance for cutoff values for fasting glucose and random glucose. The ADA defines fasting as no caloric intake for at least 8 hours. Fasting plasma glucose results between 100 to 125 mg/dL indicate increased risk for diabetes (prediabetes). Fasting plasma glucose results greater than or equal to 126 mg/dL meet the criteria for diagnosis of diabetes. In the absence of unequivocal hyperglycemia, results should be confirmed by repeat testing. In a patient with classic symptoms of hyperglycemia or hyperglycemic crisis, random plasma glucose results greater than or equal to 200 mg/dL meet the criteria for diagnosis of diabetes. Reference: Standards of Medical Care in Diabetes 2016, [place] Diabetes Association. Diabetes Care. 2016.39(Suppl 1). Performed By: #### 2 4323-8, 96727-3 ####[facility] LABIA [id number] [place] [id number] [place] Potassium [Moles/Vol] 4.4 mmol/L Normal 3.7-5.1 [facility] Comment on above: Order Comment: Speci men Type: BLOOD SPECIMENOrdering Facility: [facility] Address: [address] [place] [address] Performed By: #### 2 4323-8, ####[facility] LABCLIA [id number] [address] [address] [place] Protein [Mass/Vol] 7.6 g/dL Normal 6.3-8.0 [facility] Comment on above: Order Comment: Speci men Type: BLOOD SPECIMENOrdering Facility: [facility] Address: [address] [place] [address] Performed By: #### 2 4323-8, 95702-8 ####[facility] LABIA [id number] [address] [address] [place] Sodium [Moles/Vol] 138 mmol/L Normal 136-144 [facility] Comment on above: Order Comment: Speci men Type: BLOOD SPECIMENOrdering Facility: [facility] Address: [address] [place] [address] Performed By: #### 2 4323-8, ####[facility] LABIA [id number] [place] [id number] [place] Urea nitrogen [Mass/Vol] 17 mg/dL Normal 7-21 [facility] Comment on above: Order Comment: Speci men Type: BLOOD SPECIMENOrdering Facility: [facility] Address: [address] [place] [address] Performed By: #### 2 4323-8, ####[facility] LABIA [id number] [address] [address] [place] HbA1c (Bld)on 08-13-2024 Average glucose Estimated from glycated hemoglobin (Bld) [Mass/Vol] 183 mg/dL Normal [facility] Comment on above: Order Comment: Speci men Type: BLOOD SPECIMENOrdering Facility: [facility] Address: [address] [place] [address] Result Comment: eAG: (Estimated average glucose) is a calculated value from HgbA1c and is sales representative meats of the average blood glucose level in the last 2-3 month period. Performed By: #### 5 5454-3 ####[facility] LABCL[facility] [id number] [place] [address] [place] HbA1c (Bld) [Mass fraction] 8.0 % High 4.3-5.6 [facility] Comment on above: Order Comment: Speci men Type: BLOOD SPECIMENOrdering Facility: [facility] Address: [address] [place] [address] Result Comment: Amer [place] Diabetes Association guidelines indicate that patients with HgbA1c in the range 5.7-6.4% are at increased risk for development of diabetes, and intervention by lifestyle modification may be beneficial. HgbA1c greater or equal to 6.5% is considered diagnostic of diabetes. Performed By: #### 5 5454-3 ####[facility] LABIA [id number] [place] [id number] [place] International normalized rat io (INR) calculationOrdered By: Kay Cavazos on 08-13-2024 INR Coag (Bld) [Relative time] 2.3 {INR} [facility] Lipid 1996 panelon Cholesterol [Mass/Vol] 193 mg/dL Normal <200 [facility] Comment on above: Order Comment: Speci men Type: BLOOD SPECIMENOrdering Facility: [facility] Address: [address] [place] [address] Result Comment: <200 mg/dL, Desirable 200-239 mg/dL, Borderline high >239 mg/dL, High Performed By: #### 2 4323-8, 23036-3 ####[facility] LABIA [id number] [place] [id number] [place] Cholesterol in HDL [Mass/Vol] 44 mg/dL Normal >39 [facility] Comment on above: Order Comment: Speci men Type: BLOOD SPECIMENOrdering Facility: [facility] Address: [address] [place] [address] Result Comment: 40-5 9 mg/dL, Acceptable >59 mg/dL, High: Negative risk factor for coronary heart disease <40 mg/dL, Low: Positive risk factor for coronary heart disease Performed By: #### 2 4323-8, 05090-5 ####[facility] LABCLIA [id number] [address] STATES OF [facility] Cholesterol in LDL [Mass/Vol] 86 mg/dL Normal <100 [facility] Comment on above: Order Comment: Speci men Type: BLOOD SPECIMENOrdering Facility: [facility] Address: [address] [place] [address] Result Comment: <100 mg/dL, Optimal 100-129 mg/dL, Near optimal/above optimal 130-159 mg/dL, Borderline high 160-189 mg/dL, High >189 mg/dL, Very high Secondary prevention optimal LDL Cholesterol levels are recommended to be <70 mg/dL LDL cholesterol is calculated using the Briceño-NIH equation. Performed By: #### 2 4323-8, 01910-9 ####[facility] [id number] [address] STATES [facility] Cholesterol in LDL/Cholesterol in HDL [Mass ratio] 1.95 {ratio} Normal <2.54 [facility] Comment on above: Order Comment: Beni men Type: BLOOD SPECIMENOrdering Facility: [facility] Address: [address] [place] [address] Result Comment: Refe edwin: 1. National Cholesterol Education Program ATP III Guideline At-A-Glance Quick Desk Reference: National Heart, Lung, and Blood Geary. National Institutes of Health. 2001: NIH Publication No. 01-3305. 2. An International Atherosclerosis Society position paper: global recommendations for the management of dyslipidemia: executive summary, Atherosclerosis. 2014: 232(2):410-413. Performed By: #### 2 4323-8, 69323-9 ####[facility] [id number] [address] [place] Cholesterol in VLDL [Mass/Vol] 62 mg/dL High <30 [facility] Comment on above: Order Comment: Beni men Type: BLOOD SPECIMENOrdering Facility: [facility] Address: [address] [place] [id number] Performed By: #### 2 4323-8, 02355-3 ####[facility] LABCLIA [id number] [address] [address] [place] Cholesterol non HDL [Mass/Vol] 149 mg/dL High <130 [facility] Comment on above: Order Comment: Speci men Type: BLOOD SPECIMENOrdering Facility: [facility] Address: [address] [place] [address] Result Comment: <130 mg/dL, Optimal 130-159 mg/dL, Near optimal/above optimal 160-189 mg/dL, Borderline high 190-219 mg/dL, High >219 mg/dL, Very high Secondary prevention optimal non HDL Cholesterol levels are recommended to be <100 mg/dL Performed By: #### 2 4323-8, 24830-7 ####[facility] LABCL[facility] [id number] [place] [address] [place] Cholesterol.total/Jahaira sterol in HDL [Mass ratio] 4.39 {ratio} Normal <5.10 [facility] Comment on above: Order Comment: Speci men Type: BLOOD SPECIMENOrdering Facility: [facility] Address: [address] [place] [address] Performed By: #### 2 4323-8, 45812-9 ####[facility] LABCL[facility] [id number] [place] [id number] [place] FASTING TIME 12 hrs Normal [facility] Comment on above: Order Comment: Speci men Type: BLOOD SPECIMENOrdering Facility: [facility] Address: [address] [place], [place] [address] Performed By: #### 2 4323-8, 43110-9 ####[facility]CL[facility] [id number] [facility] [facility] [address] [address] [place] Triglyceride [Mass/Vol] 388 mg/dL High <150 C [facility] Comment on above: Order Comment: Speci men Type: BLOOD SPECIMENOrdering Facility: [facility] Address: [address] [place] [address] Result Comment: <150 mg/dL, Normal 150-199 mg/dL, Borderline high 200-499 mg/dL, High >499 mg/dL, Very high Performed By: #### 2 4323-8, 52163-6 ####[facility] LABCLIA [id number] [facility] [id number] [place] [address] [place] Prothrombin Time w/INRon INR Coag (PPP) [Relative time] 2.3 {INR} Normal [facility] Comment on above: Performed By: #### L 300.3900 ####[facility] [address] [place], [place], [phone] PT Coag (PPP) [Time] 26.0 s High 11.7-14.9 [facility] Comment on above: Performed By: #### L 300.3900 ####[facility] [address] [place], [place], [phone] Prothrombin timeOrdered By: Kay Cavazos on 08-13-2024 PT Coag (PPP) [Time] 26.0 s High 11.7-14.9 [facility] CREATININE FINGERSTICKon Creatinine [Mass/Vol] 1.0 mg/dL Normal 0.55-1.02 [facility] Comment on above: Performed By: #### L 9100.0200 ####[facility] [address] [place], [address] GFR/1.73 sq M.predicted among non-blacks MDRD (S/P/Bld) [Vol rate/Area] 54.0000 mL/min/{1.73_m2} Low >60 [facility] Comment on above: Performed By: #### L 9100.0200 ####[facility] [address] [place], [place], [phone] CTA Head AND Neck W/ Contras ton 07-13-2024 CTA Head AND Neck W/ Contrast Normal [facility] Kidney and Bladderon 025 Kidney and Bladder Normal [facility] Urine Cultureon 07-13-2024 URC Normal [facility] Comment on above: Performed By: #### L 400.0001, M100.0 ####[facility] [address] [place], [place], [phone] Bilirubin Test strip Ql (U)O rdered By: Maykel Sloan on 07-11-2024 Bilirubin Ql (U) Negative Negative [facility] Ketones Test strip Ql (U)Ord ered By: Maykel Sloan on 07-11-2024 Ketones Ql (U) Negative Negative [facility] Microscopic analysis of urin e for red blood cells (RBC)Ordered By: Maykel Sloan on 07-11-2024 Microscopic analysis of urine for red blood cells (RBC) 5-10 SEEN /hpf 0-5 [facility] Mucus LM Ql (Urine sed)Order ed By: Maykel Sloan on 07-11-2024 Mucus Ql (Urine sed) 0 SEEN /hpf [facility] Nitrite Test strip Ql (U)Ord ered By: Maykel Sloan on 07-11-2024 Nitrite Ql (U) Negative Negative [facility] Protein Test strip Ql (U)Ord ered By: Maykel Sloan on 07-11-2024 Protein Ql (U) 100 mg/dl High Negative [facility] Squamous epithelial cells de tection in urine sediment by light microscopyOrdered By: Maykel Sloan on 07-11-2024 Epithelial cells.squamous LM Ql (Urine sed) 0-5 SEEN /hpf 5-10 [facility] Urinalysis, Completeon 07-11 EPI,SQUAMOUS 0-5 SEEN Normal 5-10 [facility] Comment on above: Order Comment: ANISA CTOR TO SPECIFY Performed By: #### L 400.0001, M100.0 ####[facility] [address] [place], [place], [phone] RBC 5-10 SEEN Normal 0-5 [facility] Comment on above: Order Comment: ANISA CTOR TO SPECIFY Performed By: #### L 400.0001, M100.2200 ####[facility] [address] [place], [address] WBC 50-100 SEEN Normal 0-5 [facility] Comment on above: Order Comment: ANISA CTOR TO SPECIFY Performed By: #### L 400.0001, M100.2200 ####[facility] [address] [place], [address] BACTERIA 0 SEEN Normal None Seen [facility] Comment on above: Order Comment: ANISA CTOR TO SPECIFY Performed By: #### L 400.0001, M100.2200 ####[facility] [address] [place], [address] Mucus Ql (Urine sed) 0 SEEN Normal [facility] Comment on above: Order Comment: ANISA CTOR TO SPECIFY Performed By: #### L 400.0001, M100.2200 ####[facility] [address] [place], [address] Urine clarityOrdered By: Pamela Sloan on 07-11-2024 Clarity (U) Sl. Cloudy Clear [facility] Urine color determinationOrd ered By: Maykel Sloan on 07-11-2024 Color (U) Yellow Yellow [facility] Urine cultureOrdered By: Pamela Sloan on 07-11-2024 Bacteria identified Cx Nom (U) Presumptive E. coli Abnormal [facility] Urine glucose detectionOrder ed By: Maykel Sloan on 07-11-2024 Glucose Ql (U) Normal mg/dl Normal [facility] Urine leukocyte esterase det ection by dipstickOrdered By: Maykel Sloan on 07-11-2024 Leukocyte esterase Test strip Ql (U) 500 /ul High Negative [facility] Urine pHOrdered By: Maykel Sloan on 07-11-2024 pH (U) 7.0 [pH] 5.0 - 8.0 [facility] Urine sediment bacteria coun t by microscopy (number/high power field)Ordered By: Maykel Sloan on 2025 Bacteria LM.HPF (Urine sed) [#/Area] 0 /[HPF] None Seen [facility] Urine specific gravity measu rementOrdered By: Maykel Sloan on 07-11-2024 Specific gravity (U) [Rel density] 1.005 1.002-1.030 [facility] Urine urobilinogen measureme ntOrdered By: Maykel Sloan on 07-11-2024 Urobilinogen Ql (U) Normal mg/dl Normal [facility] White blood cell countOrdere d By: Maykel Sloan on 07-11-2024 White blood cell count 50-100 SEEN /hpf 0-5 [facility] CNPNon 07-06-2024 CNPN Telephone (FAMPWS) -------- LAISHA WALKER ([id number]) 1950 F Date Time Provider Department 07/06/24 FLAKO TRACY [facility] During your visit today, we recorded the following information about you: Vickie Gaines, RN 07/06/2024 4:24 PM Signed [facility]- reports patient was discharged from today. Insurance would not authorize any more visits. Flako Tracy MD 07/06/2024 4:56 PM Signed Michael Tracy MD Allergies As of Date: 07/06/2024 Noted Allergy Reaction GABAPENTIN 11/03/2021 14 - Other: See Comments Comments: Dizziness ACCUPRIL (QUINAPRIL HCL) 07/05/2005 14 - Other: See Comments BEXTRA (VALDECOXIB) 07/05/2005 8 - GI Upset CELEBREX (CELECOXIB) 07/05/2005 8 - GI Upset Comments: CODEINE 07/05/2005 14 - Other: See Comments ENTEX LA (PHENYLEPHRINE-GUAIFENES *07/05/2005 14 - Other: See Comments GLUCOPHAGE (METFORMIN HCL) 07/05/2005 14 - Other: See Comments LIPITOR (ATORVASTATIN CALCIUM) 07/05/2005 14 - Other: See Comments LODINE (ETODOLAC) 07/05/2005 8 - GI Upset NAPROSYN (NAPROXEN) 07/05/2005 14 - Other: See Comments NSAIDS (NON-STEROIDAL ANTI-INFLAM*12/06/2019 14 - Other: See Comments PRAVACHOL (PRAVASTATIN SODIUM) 07/05/2005 14 - Other: See Comments Comments: Worsening abdominal pain SULFA (SULFONAMIDE ANTIBIOTICS) 07/08/2014 8 - GI Upset ULTRACET (TRAMADOL-ACETAMINOPHEN) 07/05/2005 14 - Other: See Comments VICODIN (HYDROCODONE-ACETAMINOPH E*07/05/2005 14 - Other: See Comments VIOXX (ROFECOXIB) 07/05/2005 14 - Other: See Comments ZOCOR (SIMVASTATIN) 07/05/2005 14 - Other: See Comments Date Reviewed: 06/12/2024 Reviewed by: Pam Saunders MA - Fully Assessed Reason for Visit: [facility] discharge [Other] Prescriptions as of 07/06/2024 - pantoprazole DR (PROTONIX) 40 mg tablet Take 1 tablet by mouth every 12 hours. - blood sugar diagnostic (BLOOD GLUCOSE TEST) test strip Test blood sugar(s) 1` times daily. Dx: Type 2 DM - Uncontrolled E11.65 Insulin: No - glipiZIDE (GLUCOTROL XL) 10mg 24 hr tablet Take 1 tablet by mouth two times a day. - metoprolol tartrate, short acting, (LOPRESSOR) 50 mg tablet Take 50 mg by mouth two times a day. - rosuvastatin (CRESTOR) 10 mg tablet Take 20 mg by mouth once daily. - losartan (COZAAR) 25 mg tablet Take 0.5 tablets by mouth every afternoon. - docusate sodium (STOOL SOFTENER ORAL) Take by mouth as needed. OTC - Lancets lancets Test blood sugar(s) 1` times daily. Dx: Type 2 DM - Uncontrolled E11.65 Insulin: No - hydrocortisone (ANUSOL-HC) 2.5 % rectal cream by RECTAL route twice daily. - multivitamin (MULTIPLE VITAMINS ORAL) Take by mouth. - alcohol swabs (ALCOHOL PREP PADS) Apply 1 application to affected area once daily. - loratadine (CLARITIN) 10 mg tablet Take 10 mg by mouth once daily. - acetaminophen (TYLENOL) 325 mg tablet Take 500 mg by mouth. 2 TABLETS AT HS Problem List As Of Date 07/06/2024 Noted Resolved LUMBAGO [M54.50] 07/06/2005 ENTHESOPATHY OF HIP [M76.899] 07/06/2005 SPRAIN LUMBAR REGION [S33.5XXA] 07/06/2005 Dyslipidemia associated with type 2 diabetes me* Paroxysmal atrial fibrillation (HCC) [I48.0] 01/15/2023 Carotid stenosis, asymptomatic [I65.29] Right renal mass [N28.89] 05/18/2019 Obesity, Class II, BMI 35-39.9 [E66.812] 05/19/2019 Renal carcinoma, right (HCC) [C64.1] 05/20/2019 01/21/2023 Other cirrhosis of liver (HCC) [K74.69] 05/23/2020 Stage 3a chronic kidney disease (HCC) [N18.31] 08/10/2022 Obesity, Class I, BMI 30-34.9 [E66.811] 11/19/2022 01/22/2023 Anticoagulant long-term use [Z79.01] 11/24/2022 Third degree atrioventricular block (HCC) [I44.*01/22/2023 Bradycardia [R00.1] 01/22/2023 At risk for stroke [Z91.89] 01/22/2023 Bilateral carotid artery stenosis [I65.23] 10/10/2016 Diagnosed: 01/22/2023 Gastroesophageal reflux disease [K21.9] 01/22/2023 Diagnosed: 01/22/2023 Hyperlipidemia [E78.5] 01/22/2023 Diagnosed: 01/22/2023 Recurrent falls [R29.6] 01/22/2023 Diagnosed: 01/22/2023 Orthostatic hypotension [I95.1] 01/17/2023 Diagnosed: 01/22/2023 Holley-Mary syncope [I45.9] 01/22/2023 Diabetes mellitus type 2 in obese (HCC) [E11.6*01/22/2023 S/P placement of cardiac pacemaker [Z95.0] 01/25/2023 Encounter Status:Closed by FLAKO TRACY on 07/06/24 Normal [facility] CBC W/Diff, Automatedon 06-06 PATH REV Reviewed Normal [facility] Comment on above: Result Comment: SEE REPORT IN PATIENT'S EMR AMENDED REPORT 06/26/24 1129 PATH REV previously reported as: July Performed By: #### L 500.3400, L300.4310, L100.0100, L500.2500, L300.3900 ####[facility] [address] [place], [address] Absolute lymphocyte countOrd ered By: Otoniel King on 06-25-2024 Lymphocytes Auto (Unsp spec) [#/Vol] 2.19 10*3/uL 0.83-4.51 [facility] Absolute neutrophil countOrd ered By: Otoniel King on 06-25-2024 Neutrophils (Bld) [#/Vol] 4.7 10*3/uL 2.0-7.7 [facility] Automated lymphocyte count a s percentage of total leukocytesOrdered By: Otoniel King on 06-25-2024 Lymphocytes/100 WBC Auto (Unsp spec) 28.4 % 19-41 [facility] Basophil percentageOrdered B y: Otoniel King on 06-25-2024 Basophils/100 WBC (Bld) 1.2 % High 0-1 [facility] CBC W/Diff, Automatedon 06-06 Absolute Lymph 2.19 X10 3/uL Normal 0.83-4.51 [facility] Comment on above: Performed By: #### L 100.0100 ####[facility] [address] [place], [address] Absolute Neut 4.7 X10 3/uL Normal 2.0-7.7 [facility] Comment on above: Performed By: #### L 100.0100 ####[facility] [address] [place], [address] Basophils/100 WBC (Bld) 1.2 % High 0-1 [facility] Comment on above: Performed By: #### L 100.0100 ####[facility] [address] [place], [address] Eosinophils/100 WBC (Bld) 1.9 % Normal 0-5 [facility] Comment on above: Performed By: #### L 100.0100 ####[facility] [address] [place], [address] Erythrocyte distribution width (RBC) [Ratio] 14.9 % High 11.6-14.6 [facility] Comment on above: Performed By: #### L 100.0100 ####[facility] [address] [place], [address] Hematocrit (Bld) [Volume fraction] 36.0 % Low 37-47 [facility] Comment on above: Performed By: #### L 100.0100 ####[facility] [address] [place], [address] Hemoglobin (Bld) [Mass/Vol] 11.3 g/dL Low 12.0-15.0 [facility] Comment on above: Performed By: #### L 100.0100 ####[facility] [address] [place], [address] IG% 0.400 Normal 0.0-0.9 [facility] Comment on above: Result Comment: IG% - Immature Granulocytes (promyelocytes, myelocytes andmetamyelocytes) > 1% indicates that a LEFT SHIFT is Present. Performed By: #### L 100.0100 ####[facility] [address] [place], [address] Lymphocytes/100 WBC (Bld) 28.4 % Normal 19-41 [facility] Comment on above: Performed By: #### L 100.0100 ####[facility] [address] [place], [address] MCH (RBC) [Entitic mass] 27.1 pg Normal 27.0-32.0 [facility] Comment on above: Performed By: #### L 100.0100 ####[facility] [address] [place], [address] MCHC (RBC) [Mass/Vol] 31.4 g/dL Low 32-36 [facility] Comment on above: Performed By: #### L 100.0100 ####[facility] [address] [place], [address] MCV (RBC) [Entitic vol] 86.3 fL Normal 81-99 [facility] Comment on above: Performed By: #### L 100.0100 ####[facility] [address] [place], [address] Monocytes/100 WBC (Bld) 7.4 % Normal 0-10 [facility] Comment on above: Performed By: #### L 100.0100 ####[facility] [address] [place], [address] Neutrophils/100 WBC (Bld) 60.7 % Normal 47-70 [facility] Comment on above: Performed By: #### L 100.0100 ####[facility] [address] [place], [address] Nucleated RBC (Bld) [#/Vol] 0 10*3/uL Normal 0-5 [facility] Comment on above: Performed By: #### L 100.0100 ####[facility] [address] [place], [address] Platelet mean volume (Bld) [Entitic vol] 12.4 fL High 6.2-12.0 [facility] Comment on above: Performed By: #### L 100.0100 ####[facility] [address] [place], [address] Platelets (Bld) [#/Vol] 218 10*3/uL Normal 150-450 [facility] Comment on above: Performed By: #### L 100.0100 ####[facility] [address] [place], [place], [phone](170) RBC (Bld) [#/Vol] 4.17 10*6/uL Low 4.2-5.4 [facility] Comment on above: Performed By: #### L 100.0100 ####[facility] [address] [place], [address] RDW SD 47.5 fl High 35.1-43.9 [facility] Comment on above: Performed By: #### L 100.0100 ####[facility] [address] [place], [address] WBC (Bld) [#/Vol] 7.7 10*3/uL Normal 4.4-11.0 [facility] Comment on above: Performed By: #### L 100.0100 ####[facility] [address] [place], [place], [address] CNPNon 06-25-2024 CNPN Telephone (INTWS) -------- LAISHA WALKER ([id number]) 1950 F Date Time Provider Department 06/25/24 FLAKO TRACY INTWS During your visit today, we recorded the following information about you: Trip Angeles MA 06/25/2024 5:12 PM Signed Office received Lab results from [facility]. Recent TE this was supposed to be due in 1 month. Placed into scanning for review. SALTY Dowd Jesse, APRN.MORTICIAN INVESTIGATOR 06/25/2024 6:41 PM Signed Please let the patient know that her blood counts are almost back to normal. Much improved from when she was discharged from the hospital. We can recheck when she sees Dr Tracy in 2 months. JASEN Maher Amanda, RN 06/25/2024 6:59 PM Signed Pt called and is notified of providers results and instructions. Pt voices understanding. Simi Jung RN Allergies As of Date: 06/25/2024 Noted Allergy Reaction GABAPENTIN 11/03/2021 14 - Other: See Comments Comments: Dizziness ACCUPRIL (QUINAPRIL HCL) 07/05/2005 14 - Other: See Comments BEXTRA (VALDECOXIB) 07/05/2005 8 - GI Upset CELEBREX (CELECOXIB) 07/05/2005 8 - GI Upset Comments: CODEINE 07/05/2005 14 - Other: See Comments ENTEX LA (PHENYLEPHRINE-GUAIFENES *07/05/2005 14 - Other: See Comments GLUCOPHAGE (METFORMIN HCL) 07/05/2005 14 - Other: See Comments LIPITOR (ATORVASTATIN CALCIUM) 07/05/2005 14 - Other: See Comments LODINE (ETODOLAC) 07/05/2005 8 - GI Upset NAPROSYN (NAPROXEN) 07/05/2005 14 - Other: See Comments NSAIDS (NON-STEROIDAL ANTI-INFLAM*12/06/2019 14 - Other: See Comments PRAVACHOL (PRAVASTATIN SODIUM) 07/05/2005 14 - Other: See Comments Comments: Worsening abdominal pain SULFA (SULFONAMIDE ANTIBIOTICS) 07/08/2014 8 - GI Upset ULTRACET (TRAMADOL-ACETAMINOPHEN) 07/05/2005 14 - Other: See Comments VICODIN (HYDROCODONE-ACETAMINOPH E*07/05/2005 14 - Other: See Comments VIOXX (ROFECOXIB) 07/05/2005 14 - Other: See Comments ZOCOR (SIMVASTATIN) 07/05/2005 14 - Other: See Comments Date Reviewed: 06/12/2024 Reviewed by: Pam Saunders MA - Fully Assessed Reason for Visit: Results [95] Prescriptions as of 06/25/2024 - pantoprazole DR (PROTONIX) 40 mg tablet Take 1 tablet by mouth every 12 hours. - blood sugar diagnostic (BLOOD GLUCOSE TEST) test strip Test blood sugar(s) 1` times daily. Dx: Type 2 DM - Uncontrolled E11.65 Insulin: No - glipiZIDE (GLUCOTROL XL) 10mg 24 hr tablet Take 1 tablet by mouth two times a day. - metoprolol tartrate, short acting, (LOPRESSOR) 50 mg tablet Take 50 mg by mouth two times a day. - rosuvastatin (CRESTOR) 10 mg tablet Take 20 mg by mouth once daily. - losartan (COZAAR) 25 mg tablet Take 0.5 tablets by mouth every afternoon. - docusate sodium (STOOL SOFTENER ORAL) Take by mouth as needed. OTC - Lancets lancets Test blood sugar(s) 1` times daily. Dx: Type 2 DM - Uncontrolled E11.65 Insulin: No - hydrocortisone (ANUSOL-HC) 2.5 % rectal cream by RECTAL route twice daily. - multivitamin (MULTIPLE VITAMINS ORAL) Take by mouth. - alcohol swabs (ALCOHOL PREP PADS) Apply 1 application to affected area once daily. - loratadine (CLARITIN) 10 mg tablet Take 10 mg by mouth once daily. - acetaminophen (TYLENOL) 325 mg tablet Take 500 mg by mouth. 2 TABLETS AT HS Problem List As Of Date 06/25/2024 Noted Resolved LUMBAGO [M54.50] 07/06/2005 ENTHESOPATHY OF HIP [M76.899] 07/06/2005 SPRAIN LUMBAR REGION [S33.5XXA] 07/06/2005 Dyslipidemia associated with type 2 diabetes me* Paroxysmal atrial fibrillation (HCC) [I48.0] 01/15/2023 Carotid stenosis, asymptomatic [I65.29] Right renal mass [N28.89] 05/18/2019 Obesity, Class II, BMI 35-39.9 [E66.812] 05/19/2019 Renal carcinoma, right (HCC) [C64.1] 05/20/2019 01/21/2023 Other cirrhosis of liver (HCC) [K74.69] 05/23/2020 Stage 3a chronic kidney disease (HCC) [N18.31] 08/10/2022 Obesity, Class I, BMI 30-34.9 [E66.811] 11/19/2022 01/22/2023 Anticoagulant long-term use [Z79.01] 11/24/2022 Third degree atrioventricular block (HCC) [I44.*01/22/2023 Bradycardia [R00.1] 01/22/2023 At risk for stroke [Z91.89] 01/22/2023 Bilateral carotid artery stenosis [I65.23] 10/10/2016 Diagnosed: 01/22/2023 Gastroesophageal reflux disease [K21.9] 01/22/2023 Diagnosed: 01/22/2023 Hyperlipidemia [E78.5] 01/22/2023 Diagnosed: 01/22/2023 Recurrent falls [R29.6] 01/22/2023 Diagnosed: 01/22/2023 Orthostatic hypotension [I95.1] 01/17/2023 Diagnosed: 01/22/2023 Holley-Mary syncope [I45.9] 01/22/2023 Diabetes mellitus type 2 in obese (HCC) [E11.6*01/22/2023 S/P placement of cardiac pacemaker [Z95.0] 01/25/2023 Encounter Status:Closed by S[facility]M [facility] LAISHA [facility] ([id number]) 1950 F Date Time Provider Department 06/25/24 [facility] During your visit today, we recorded the following information about you: Nik Kate RN 06/25/2024 10:10 AM Signed Mary with [facility] calls to ask when patient is due for her CBC with diff as patient has requested they draw it with . Notified order was to be done in 1 month from last OV around 07/08/2024. Faxed to [phone] per request. Nik Kate RN Allergies As of Date: 06/25/2024 Noted Allergy Reaction GABAPENTIN 11/03/2021 14 - Other: See Comments Comments: Dizziness ACCUPRIL (QUINAPRIL HCL) 07/05/2005 14 - Other: See Comments BEXTRA (VALDECOXIB) 07/05/2005 8 - GI Upset CELEBREX (CELECOXIB) 07/05/2005 8 - GI Upset Comments: CODEINE 07/05/2005 14 - Other: See Comments ENTEX LA (PHENYLEPHRINE-GUAIFENES *07/05/2005 14 - Other: See Comments GLUCOPHAGE (METFORMIN HCL) 07/05/2005 14 - Other: See Comments LIPITOR (ATORVASTATIN CALCIUM) 07/05/2005 14 - Other: See Comments LODINE (ETODOLAC) 07/05/2005 8 - GI Upset NAPROSYN (NAPROXEN) 07/05/2005 14 - Other: See Comments NSAIDS (NON-STEROIDAL ANTI-INFLAM*12/06/2019 14 - Other: See Comments PRAVACHOL (PRAVASTATIN SODIUM) 07/05/2005 14 - Other: See Comments Comments: Worsening abdominal pain SULFA (SULFONAMIDE ANTIBIOTICS) 07/08/2014 8 - GI Upset ULTRACET (TRAMADOL-ACETAMINOPHEN) 07/05/2005 14 - Other: See Comments VICODIN (HYDROCODONE-ACETAMINOPH E*07/05/2005 14 - Other: See Comments VIOXX (ROFECOXIB) 07/05/2005 14 - Other: See Comments ZOCOR (SIMVASTATIN) 07/05/2005 14 - Other: See Comments Date Reviewed: 06/12/2024 Reviewed by: Pam Saunders MA - Fully Assessed Reason for Visit: Orders [681] Prescriptions as of 06/25/2024 - pantoprazole DR (PROTONIX) 40 mg tablet Take 1 tablet by mouth every 12 hours. - blood sugar diagnostic (BLOOD GLUCOSE TEST) test strip Test blood sugar(s) 1` times daily. Dx: Type 2 DM - Uncontrolled E11.65 Insulin: No - glipiZIDE (GLUCOTROL XL) 10mg 24 hr tablet Take 1 tablet by mouth two times a day. - metoprolol tartrate, short acting, (LOPRESSOR) 50 mg tablet Take 50 mg by mouth two times a day. - rosuvastatin (CRESTOR) 10 mg tablet Take 20 mg by mouth once daily. - losartan (COZAAR) 25 mg tablet Take 0.5 tablets by mouth every afternoon. - docusate sodium (STOOL SOFTENER ORAL) Take by mouth as needed. OTC - Lancets lancets Test blood sugar(s) 1` times daily. Dx: Type 2 DM - Uncontrolled E11.65 Insulin: No - hydrocortisone (ANUSOL-HC) 2.5 % rectal cream by RECTAL route twice daily. - multivitamin (MULTIPLE VITAMINS ORAL) Take by mouth. - alcohol swabs (ALCOHOL PREP PADS) Apply 1 application to affected area once daily. - loratadine (CLARITIN) 10 mg tablet Take 10 mg by mouth once daily. - acetaminophen (TYLENOL) 325 mg tablet Take 500 mg by mouth. 2 TABLETS AT HS Problem List As Of Date 06/25/2024 Noted Resolved LUMBAGO [M54.50] 07/06/2005 ENTHESOPATHY OF HIP [M76.899] 07/06/2005 SPRAIN LUMBAR REGION [S33.5XXA] 07/06/2005 Dyslipidemia associated with type 2 diabetes me* Paroxysmal atrial fibrillation (HCC) [I48.0] 01/15/2023 Carotid stenosis, asymptomatic [I65.29] Right renal mass [N28.89] 05/18/2019 Obesity, Class II, BMI 35-39.9 [E66.812] 05/19/2019 Renal carcinoma, right (HCC) [C64.1] 05/20/2019 01/21/2023 Other cirrhosis of liver (HCC) [K74.69] 05/23/2020 Stage 3a chronic kidney disease (HCC) [N18.31] 08/10/2022 Obesity, Class I, BMI 30-34.9 [E66.811] 11/19/2022 01/22/2023 Anticoagulant long-term use [Z79.01] 11/24/2022 Third degree atrioventricular block (HCC) [I44.*01/22/2023 Bradycardia [R00.1] 01/22/2023 At risk for stroke [Z91.89] 01/22/2023 Bilateral carotid artery stenosis [I65.23] 10/10/2016 Diagnosed: 01/22/2023 Gastroesophageal reflux disease [K21.9] 01/22/2023 Diagnosed: 01/22/2023 Hyperlipidemia [E78.5] 01/22/2023 Diagnosed: 01/22/2023 Recurrent falls [R29.6] 01/22/2023 Diagnosed: 01/22/2023 Orthostatic hypotension [I95.1] 01/17/2023 Diagnosed: 01/22/2023 Holley-Mary syncope [I45.9] 01/22/2023 Diabetes mellitus type 2 in obese (HCC) [E11.6*01/22/2023 S/P placement of cardiac pacemaker [Z95.0] 01/25/2023 Encounter Status:Closed by NIK KATE on 06/25/24 Normal [facility] Eosinophil percentageOrdered By: Otoniel King on 06-25-2024 Eosinophils/100 WBC (Bld) 1.9 % 0-5 [facility] Erythrocyte distribution wid th ratioOrdered By: Otoniel King on 06-25-2024 Erythrocyte distribution width (RBC) [Ratio] 14.9 % High 11.6-14.6 [facility] Erythrocyte distribution wid th standard deviationOrdered By: Otoneil King on 06-25-2024 Erythrocyte distribution width (RBC) [Ratio] 47.5 fl High 35.1-43.9 [facility] Hematocrit Auto (Bld) [Volum e fraction]Ordered By: Otonielaydin King on 06-25-2024 Hematocrit (Bld) [Volume fraction] 36.0 % Low 37-47 [facility] Hemoglobin measurementOrdere d By: Ootniel King on 06-25-2024 Hemoglobin (Bld) [Mass/Vol] 11.3 g/dL Low 12.0-15.0 [facility] Immature granulocytes/100 WB C Auto (Bld)Ordered By: Otoniel King on 06-25-2024 Immature granulocytes/100 WBC (Bld) 0.400 % 0.0-0.9 [facility] Comment on above: IG% - Immature Granu locytes (promyelocytes, myelocytes and metamyelocytes) > 1% indicates that a LEFT SHIFT is Present. MCV (mean corpuscular volume ) determinationOrdered By: Otoniel King on 06-25-2024 MCV (RBC) [Entitic vol] 86.3 fL 81-99 [facility] Mean corpuscular hemoglobin (MCH) determinationOrdered By: Otoniel King on 06-25-2024 MCH (RBC) [Entitic mass] 27.1 pg 27.0-32.0 [facility] Mean corpuscular hemoglobin concentration (MCHC) determinationOrdered By: Otoniel King on 06-25-2024 MCHC (RBC) [Mass/Vol] 31.4 g/dL Low 32-36 [facility] Mean platelet volume determi nationOrdered By: Otoniel King on 06-25-2024 Platelet mean volume (Bld) [Entitic vol] 12.4 fL High 6.2-12.0 [facility] Monocyte percentageOrdered B y: Otoniel King on 06-25-2024 Monocytes/100 WBC (Bld) 7.4 % 0-10 [facility] Neutrophil percentageOrdered By: Otoniel King on 06-25-2024 Neutrophils/100 WBC (Bld) 60.7 % 47-70 [facility] No Panel Informationon 06-25 INR International Normalized Ratio 2.5 [facility] 2.5 [facility] Nucleated red blood cell per centageOrdered By: Otoniel King on 06-25-2024 Nucleated RBC/100 WBC (Bld) [Ratio] 0 % 0-5 [facility] Platelet countOrdered By: Marcos King on 06-25-2024 Platelets (Bld) [#/Vol] 218 10*3/uL 150-450 [facility] RBC Auto (Bld) [#/Vol]Ordere d By: Otoniel King on 06-25-2024 RBC (Bld) [#/Vol] 4.17 10*6/uL Low 4.2-5.4 [facility] White blood cell (WBC) count Ordered By: Otoniel King on 06-25-2024 WBC (Bld) [#/Vol] 7.7 10*3/uL 4.4-11.0 [facility] MR/Rodri 06-22-2024 MR/[email or web address] Normal [facility]) [facility] AARONLAISHA Johnston ([id number]) 1950 F Date Time Provider Department 06/18/24 FLAKO TRACY FAMPWS During your visit today, we recorded the following information about you: Tresa Noriega LPN 06/18/2024 4:18 PM Signed Aimee from [facility] Home Health calling with OT plan of care, 2 visits weekly for 2 weeks, then 1 visit weekly for 1 week. Working on safety and fall prevention. No need for return call. Flako Tracy MD 06/18/2024 6:13 PM Signed Noted and agree Flako Tracy MD Allergies As of Date: 06/18/2024 Noted Allergy Reaction GABAPENTIN 11/03/2021 14 - Other: See Comments Comments: Dizziness ACCUPRIL (QUINAPRIL HCL) 07/05/2005 14 - Other: See Comments BEXTRA (VALDECOXIB) 07/05/2005 8 - GI Upset CELEBREX (CELECOXIB) 07/05/2005 8 - GI Upset Comments: CODEINE 07/05/2005 14 - Other: See Comments ENTEX LA (PHENYLEPHRINE-GUAIFENES *07/05/2005 14 - Other: See Comments GLUCOPHAGE (METFORMIN HCL) 07/05/2005 14 - Other: See Comments LIPITOR (ATORVASTATIN CALCIUM) 07/05/2005 14 - Other: See Comments LODINE (ETODOLAC) 07/05/2005 8 - GI Upset NAPROSYN (NAPROXEN) 07/05/2005 14 - Other: See Comments NSAIDS (NON-STEROIDAL ANTI-INFLAM*12/06/2019 14 - Other: See Comments PRAVACHOL (PRAVASTATIN SODIUM) 07/05/2005 14 - Other: See Comments Comments: Worsening abdominal pain SULFA (SULFONAMIDE ANTIBIOTICS) 07/08/2014 8 - GI Upset ULTRACET (TRAMADOL-ACETAMINOPHEN) 07/05/2005 14 - Other: See Comments VICODIN (HYDROCODONE-ACETAMINOPH E*07/05/2005 14 - Other: See Comments VIOXX (ROFECOXIB) 07/05/2005 14 - Other: See Comments ZOCOR (SIMVASTATIN) 07/05/2005 14 - Other: See Comments Date Reviewed: 06/12/2024 Reviewed by: Pam Saunders MA - Fully Assessed Reason for Visit: OT plan of care [Other] Prescriptions as of 06/18/2024 - pantoprazole DR (PROTONIX) 40 mg tablet Take 1 tablet by mouth every 12 hours. - blood sugar diagnostic (BLOOD GLUCOSE TEST) test strip Test blood sugar(s) 1` times daily. Dx: Type 2 DM - Uncontrolled E11.65 Insulin: No - glipiZIDE (GLUCOTROL XL) 10mg 24 hr tablet Take 1 tablet by mouth two times a day. - metoprolol tartrate, short acting, (LOPRESSOR) 50 mg tablet Take 50 mg by mouth two times a day. - rosuvastatin (CRESTOR) 10 mg tablet Take 20 mg by mouth once daily. - losartan (COZAAR) 25 mg tablet Take 0.5 tablets by mouth every afternoon. - docusate sodium (STOOL SOFTENER ORAL) Take by mouth as needed. OTC - Lancets lancets Test blood sugar(s) 1` times daily. Dx: Type 2 DM - Uncontrolled E11.65 Insulin: No - hydrocortisone (ANUSOL-HC) 2.5 % rectal cream by RECTAL route twice daily. - multivitamin (MULTIPLE VITAMINS ORAL) Take by mouth. - alcohol swabs (ALCOHOL PREP PADS) Apply 1 application to affected area once daily. - loratadine (CLARITIN) 10 mg tablet Take 10 mg by mouth once daily. - acetaminophen (TYLENOL) 325 mg tablet Take 500 mg by mouth. 2 TABLETS AT HS Problem List As Of Date 06/18/2024 Noted Resolved LUMBAGO [M54.50] 07/06/2005 ENTHESOPATHY OF HIP [M76.899] 07/06/2005 SPRAIN LUMBAR REGION [S33.5XXA] 07/06/2005 Dyslipidemia associated with type 2 diabetes me* Paroxysmal atrial fibrillation (HCC) [I48.0] 01/15/2023 Carotid stenosis, asymptomatic [I65.29] Right renal mass [N28.89] 05/18/2019 Obesity, Class II, BMI 35-39.9 [E66.812] 05/19/2019 Renal carcinoma, right (HCC) [C64.1] 05/20/2019 01/21/2023 Other cirrhosis of liver (HCC) [K74.69] 05/23/2020 Stage 3a chronic kidney disease (HCC) [N18.31] 08/10/2022 Obesity, Class I, BMI 30-34.9 [E66.811] 11/19/2022 01/22/2023 Anticoagulant long-term use [Z79.01] 11/24/2022 Third degree atrioventricular block (HCC) [I44.*01/22/2023 Bradycardia [R00.1] 01/22/2023 At risk for stroke [Z91.89] 01/22/2023 Bilateral carotid artery stenosis [I65.23] 10/10/2016 Diagnosed: 01/22/2023 Gastroesophageal reflux disease [K21.9] 01/22/2023 Diagnosed: 01/22/2023 Hyperlipidemia [E78.5] 01/22/2023 Diagnosed: 01/22/2023 Recurrent falls [R29.6] 01/22/2023 Diagnosed: 01/22/2023 Orthostatic hypotension [I95.1] 01/17/2023 Diagnosed: 01/22/2023 Holley-Mary syncope [I45.9] 01/22/2023 Diabetes mellitus type 2 in obese (HCC) [E11.6*01/22/2023 S/P placement of cardiac pacemaker [Z95.0] 01/25/2023 Encounter Status:Closed by FLAKO TRACY on 06/18/24 Normal [facility] Gastroenterology Visit Repor ton 06-13-2024 [facility] Visit Report [facility] Visit (FRFHWS ) -------- LAISHA WALKER ([id number]) 1950 F Date Time Provider Department 06/12/24 10:30 AM JERROD BUSBYWS During your visit today, we recorded the following information about you: Pam Saunders MA 06/12/2024 10:58 AM Signed Patient presents with: Trochanteric bursitis right hip: Referred by Otoniel King AMB ROOMING INTAKE FLOWSHEET DATA Pain Pain Level: 3 Description: Aching, Numbness, Stiffness, Surgical/Not Incision, Tenderness, Tightness Duration Units: Hours Frequency: Intermittent Intervention/Comfort measure: Reposition, Positioning Patient states she is having lateral right hip pain. States she fell 2 weeks ago and landed on that hip. She has fallen 4-5 times in the past 6 weeks.Taking Tylenol or Tramadol for the pain as needed. X-rays done 06/08/24. Jerrod Busby V, DO 06/12/2024 10:58 AM Signed SERVICE DATE: June 12, 2024 PCP: Flako Tracy MD Subjective Patient ID: Umm is a 74 year old female. Chief Complaint: Patient presents with: Trochanteric bursitis right hip: Referred by Otoniel King PAIN EVALUATION 06/11/2024 1512 Pain Level: 3 Description: Aching;Numbness;Stiffnes s;Surgical/Not Incision;Tenderness;Tigh tness Duration Units: Hours Frequency: Intermittent Intervention/Comfort measure: Reposition;Positioning HPI Hip Pain: - Persistent pain in the lateral hip. - History of frequent falls; recent fall with significant impact on the hip. - Concerns about increased pain and hesitancy to bear weight on the affected side. - Previous arden placement in the femur following a fall in 2017. - Has received corticosteroid injections in the past for pain management. Knee Pain: - Pain and crepitus in the knee with movement. - History of knee replacement surgery. - Physical therapy exercises provided for knee mobility. Musculoskeletal: (+) hip pain, (+) knee pain, (+) weight-bearing difficulty, (+) frequent falls Review of Systems ACTIVE PROBLEM LIST Lumbago Enthesopathy of Hip Region Sprain of Lumbar Region Dyslipidemia Associated With Type 2 Diabetes Mellitus (Hcc) Paroxysmal Atrial Fibrillation (Hcc) Carotid Stenosis, Asymptomatic Right Renal Mass Obesity, Class II, Bmi 35-39.9 Other Cirrhosis of Liver (Hcc) Stage 3a Chronic Kidney Disease (Hcc) Anticoagulant Long-Term Use Third Degree Atrioventricular Block (Hcc) Bradycardia At Risk for Stroke Bilateral Carotid Artery Stenosis Gastroesophageal Reflux Disease Hyperlipidemia Recurrent Falls Orthostatic Hypotension Holley-Mary Syncope Diabetes Mellitus Type 2 in Obese S/P Placement of Cardiac Pacemaker PAST MEDICAL HISTORY Diagnosis Date Atrial fibrillation (HCC) SEES DR. BARRERA Carotid stenosis, asymptomatic CVA (cerebral vascular accident) (HCC) post op after 2017 bilateral knee replacements - per pt was told by neurology that it was a questionable stroke Diabetes mellitus type 2 in obese 01/22/2023 DVT (deep venous thrombosis) (HCC) post op Dysthymic disorder Depression (non-psychotic) Esophageal reflux Essential hypertension, benign Goiter, unspecified Goiter Liver cirrhosis (HCC) Macular degeneration (senile) of retina, unspecified Macular degeneration Other and unspecified hyperlipidemia Renal carcinoma, right (HCC) S/P placement of cardiac pacemaker 01/25/2023 Patient underwent implantation of [place] permanent pacemaker with right atrial and right ventricular apex leads with Dr. Steele on 01/24/2023. Type 2 diabetes mellitus (HCC) PAST SURGICAL HISTORY Procedure Laterality Date APPENDECTOMY 1962 RUPTURED APPENDIX ARTHRP KNE CONDYLEANDPLATU MEDIALANDLAT COMPARTMENTS Bilateral 2017 CHOLECYSTECTOMY 1995 Cholecystectomy COLONOSCOPY [facility] EGD EUS 06/11/2020 benign leiomyoma GE junction, mild antral gastropathy, fatty pancreas, likely cirrhotic liver, prominent dilated portal vein NEPHRECTOMY PARTIAL Right 05/18/2019 robotic PAST SURGICAL HISTORY OF 07/15/1999 LEFT SHOULDER PAST SURGICAL HISTORY OF Left 2018 REPAIR OF LEFT KNEE FRACTURE TOTAL ABDOMINAL HYSTERECT W/WO RMVL TUBE OVARY 1985 Hysterectomy, JERRY FAMILY HISTORY Problem Relation Age of Onset Arthritis Mother Hypertension Mother Dementia Mother Heart Father [place] Hypertension Father Heart disease Father other (DEPRESSION) Sister Stroke Sister Diabetes Brother Heart Attack Brother Heart disease Brother other (DEPRESSION) Brother Hypertension Brother Cancer No Family History none Social History Tobacco Use Smoking status: Never Smokeless tobacco: Never Vaping Use Vaping status: Never Used Substance Use Topics Alcohol use: Yes Comment: very seldom Drug use: No ALLERGIES Allergen Reactions Gabapentin Other: See Comments Dizziness Accupril [Quinapril* Other: See Comments Bextra [Valdecox (more content not included)... Normal [facility] Large Joint Arthro/Inj: R gr eater trochanteric bursaon 06-12-2024 Jerrod Busby V, DO 06/12/2024 10:58 AM Large Joint Arthro/Inj: R greater trochanteric bursa 06/12/2024 10:54 AM The procedure site was prepped in the usual sterile fashion. Site: R greater trochanteric bursa Medications: 6 mg betamethasone acetate-betamethasone sodium phosphate 6 mg/mL Anesthetics: 4 mL lidocaine (PF) 10 mg/mL (1 %); 4 mL BUPivacaine (PF) 0.5 % (5 mg/mL) Outcome: Tolerated well, no immediate complications Post-injection instructions were reviewed with the patient and the patient voiced understanding of these instructions. Informed Consent Consent Obtained: Verbal [place] Protocol SIGN IN TIME OUT [facility] No Panel Informationon 06-12 INR International Normalized Ratio 2.8 [facility] 2.8 [facility] CNPNon [facility]-11-[facility] -------- LAISHA WALKER ([id number]) 1950 F Date Time Provider Department 06/11/24 [facility] During your visit today, we recorded the following information about you: Chasity Polk RN 06/11/2024 2:39 PM Signed Darinel with [facility] PT calling with plan of care for patient. Physical Therapy will see patient 2 times per week for 3 weeks for functional mobility training. No call back needed if provider agreeable with plan. ALONDRA Montez Mark D, MD 06/11/2024 2:40 PM Signed Noted and agree Flako Tracy MD Allergies As of Date: 06/11/2024 Noted Allergy Reaction GABAPENTIN 11/03/2021 14 - Other: See Comments Comments: Dizziness ACCUPRIL (QUINAPRIL HCL) 07/05/2005 14 - Other: See Comments BEXTRA (VALDECOXIB) 07/05/2005 8 - GI Upset CELEBREX (CELECOXIB) 07/05/2005 8 - GI Upset Comments: CODEINE 07/05/2005 14 - Other: See Comments ENTEX LA (PHENYLEPHRINE-GUAIFENES *07/05/2005 14 - Other: See Comments GLUCOPHAGE (METFORMIN HCL) 07/05/2005 14 - Other: See Comments LIPITOR (ATORVASTATIN CALCIUM) 07/05/2005 14 - Other: See Comments LODINE (ETODOLAC) 07/05/2005 8 - GI Upset NAPROSYN (NAPROXEN) 07/05/2005 14 - Other: See Comments NSAIDS (NON-STEROIDAL ANTI-INFLAM*12/06/2019 14 - Other: See Comments PRAVACHOL (PRAVASTATIN SODIUM) 07/05/2005 14 - Other: See Comments Comments: Worsening abdominal pain SULFA (SULFONAMIDE ANTIBIOTICS) 07/08/2014 8 - GI Upset ULTRACET (TRAMADOL-ACETAMINOPHEN) 07/05/2005 14 - Other: See Comments VICODIN (HYDROCODONE-ACETAMINOPH E*07/05/2005 14 - Other: See Comments VIOXX (ROFECOXIB) 07/05/2005 14 - Other: See Comments ZOCOR (SIMVASTATIN) 07/05/2005 14 - Other: See Comments Date Reviewed: 06/08/2024 Reviewed by: Areli Stanton LPN - Fully Assessed Reason for Visit: [facility] PT Plan of Care [Other] Prescriptions as of 06/11/2024 - sucralfate (CARAFATE) 1 gram tablet Take 1 g by mouth three times a day before meals. - pantoprazole DR (PROTONIX) 40 mg tablet Take 1 tablet by mouth every 12 hours. - blood sugar diagnostic (BLOOD GLUCOSE TEST) test strip Test blood sugar(s) 1` times daily. Dx: Type 2 DM - Uncontrolled E11.65 Insulin: No - glipiZIDE (GLUCOTROL XL) 10mg 24 hr tablet Take 1 tablet by mouth two times a day. - metoprolol tartrate, short acting, (LOPRESSOR) 50 mg tablet Take 50 mg by mouth two times a day. - rosuvastatin (CRESTOR) 10 mg tablet Take 20 mg by mouth once daily. - losartan (COZAAR) 25 mg tablet Take 0.5 tablets by mouth every afternoon. - warfarin (COUMADIN) 5 mg tablet 2.5 mg //Tuesday, 5 mg all other days or as directed - docusate sodium (STOOL SOFTENER ORAL) Take by mouth as needed. OTC - Lancets lancets Test blood sugar(s) 1` times daily. Dx: Type 2 DM - Uncontrolled E11.65 Insulin: No - hydrocortisone (ANUSOL-HC) 2.5 % rectal cream by RECTAL route twice daily. - multivitamin (MULTIPLE VITAMINS ORAL) Take by mouth. - alcohol swabs (ALCOHOL PREP PADS) Apply 1 application to affected area once daily. - loratadine (CLARITIN) 10 mg tablet Take 10 mg by mouth once daily. - acetaminophen (TYLENOL) 325 mg tablet Take 500 mg by mouth. 2 TABLETS AT HS Problem List As Of Date 06/11/2024 Noted Resolved LUMBAGO [M54.50] 07/06/2005 ENTHESOPATHY OF HIP [M76.899] 07/06/2005 SPRAIN LUMBAR REGION [S33.5XXA] 07/06/2005 Dyslipidemia associated with type 2 diabetes me* Paroxysmal atrial fibrillation (HCC) [I48.0] 01/15/2023 Carotid stenosis, asymptomatic [I65.29] Right renal mass [N28.89] 05/18/2019 Obesity, Class II, BMI 35-39.9 [E66.812] 05/19/2019 Renal carcinoma, right (HCC) [C64.1] 05/20/2019 01/21/2023 Other cirrhosis of liver (HCC) [K74.69] 05/23/2020 Stage 3a chronic kidney disease (HCC) [N18.31] 08/10/2022 Obesity, Class I, BMI 30-34.9 [E66.811] 11/19/2022 01/22/2023 Anticoagulant long-term use [Z79.01] 11/24/2022 Third degree atrioventricular block (HCC) [I44.*01/22/2023 Bradycardia [R00.1] 01/22/2023 At risk for stroke [Z91.89] 01/22/2023 Bilateral carotid artery stenosis [I65.23] 10/10/2016 Diagnosed: 01/22/2023 Gastroesophageal reflux disease [K21.9] 01/22/2023 Diagnosed: 01/22/2023 Hyperlipidemia [E78.5] 01/22/2023 Diagnosed: 01/22/2023 Recurrent falls [R29.6] 01/22/2023 Diagnosed: 01/22/2023 Orthostatic hypotension [I95.1] 01/17/2023 Diagnosed: 01/22/2023 Holley-Mary syncope [I45.9] 01/22/2023 Diabetes mellitus type 2 in obese (HCC) [E11.6*01/22/2023 S/P placement of cardiac pacemaker [Z95.0] 01/25/2023 Encounter Status:Closed by FLAKO TRACY on 06/11/24 [facility]NP[facility] Telephone (FAMPWS) -------- LAISHA WALKER ([id number]) 1950 F Date Time Provider Department 06/11/24 FLAKO TRACY FAMPWS During your visit today, we recorded the following information about you: Vickie Gaines RN 06/11/2024 11:18 AM Signed [facility]- reports she saw patient today, and patient informed her she is not taking her carafate d/t nausea everytime she took it. Cheli reports pt is seeing Dr. Jane later on this week, and advised patient to discuss with Dr. Jane. Just wanted to let pcp know. Otoniel King APRN.CNP 06/11/2024 11:30 AM Signed Noted. Otoniel King APRN.MORTICIAN INVESTIGATOR Allergies As of Date: 06/11/2024 Noted Allergy Reaction GABAPENTIN 11/03/2021 14 - Other: See Comments Comments: Dizziness ACCUPRIL (QUINAPRIL HCL) 07/05/2005 14 - Other: See Comments BEXTRA (VALDECOXIB) 07/05/2005 8 - GI Upset CELEBREX (CELECOXIB) 07/05/2005 8 - GI Upset Comments: CODEINE 07/05/2005 14 - Other: See Comments ENTEX LA (PHENYLEPHRINE-GUAIFENES *07/05/2005 14 - Other: See Comments GLUCOPHAGE (METFORMIN HCL) 07/05/2005 14 - Other: See Comments LIPITOR (ATORVASTATIN CALCIUM) 07/05/2005 14 - Other: See Comments LODINE (ETODOLAC) 07/05/2005 8 - GI Upset NAPROSYN (NAPROXEN) 07/05/2005 14 - Other: See Comments NSAIDS (NON-STEROIDAL ANTI-INFLAM*12/06/2019 14 - Other: See Comments PRAVACHOL (PRAVASTATIN SODIUM) 07/05/2005 14 - Other: See Comments Comments: Worsening abdominal pain SULFA (SULFONAMIDE ANTIBIOTICS) 07/08/2014 8 - GI Upset ULTRACET (TRAMADOL-ACETAMINOPHEN) 07/05/2005 14 - Other: See Comments VICODIN (HYDROCODONE-ACETAMINOPH E*07/05/2005 14 - Other: See Comments VIOXX (ROFECOXIB) 07/05/2005 14 - Other: See Comments ZOCOR (SIMVASTATIN) 07/05/2005 14 - Other: See Comments Date Reviewed: 06/08/2024 Reviewed by: Areli Stanton LPN - Fully Assessed Reason for Visit: Patient Update [1234] Prescriptions as of 06/11/2024 - sucralfate (CARAFATE) 1 gram tablet Take 1 g by mouth three times a day before meals. - pantoprazole DR (PROTONIX) 40 mg tablet Take 1 tablet by mouth every 12 hours. - blood sugar diagnostic (BLOOD GLUCOSE TEST) test strip Test blood sugar(s) 1` times daily. Dx: Type 2 DM - Uncontrolled E11.65 Insulin: No - glipiZIDE (GLUCOTROL XL) 10mg 24 hr tablet Take 1 tablet by mouth two times a day. - metoprolol tartrate, short acting, (LOPRESSOR) 50 mg tablet Take 50 mg by mouth two times a day. - rosuvastatin (CRESTOR) 10 mg tablet Take 20 mg by mouth once daily. - losartan (COZAAR) 25 mg tablet Take 0.5 tablets by mouth every afternoon. - warfarin (COUMADIN) 5 mg tablet 2.5 mg //Tuesday, 5 mg all other days or as directed - docusate sodium (STOOL SOFTENER ORAL) Take by mouth as needed. OTC - Lancets lancets Test blood sugar(s) 1` times daily. Dx: Type 2 DM - Uncontrolled E11.65 Insulin: No - hydrocortisone (ANUSOL-HC) 2.5 % rectal cream by RECTAL route twice daily. - multivitamin (MULTIPLE VITAMINS ORAL) Take by mouth. - alcohol swabs (ALCOHOL PREP PADS) Apply 1 application to affected area once daily. - loratadine (CLARITIN) 10 mg tablet Take 10 mg by mouth once daily. - acetaminophen (TYLENOL) 325 mg tablet Take 500 mg by mouth. 2 TABLETS AT HS Problem List As Of Date 06/11/2024 Noted Resolved LUMBAGO [M54.50] 07/06/2005 ENTHESOPATHY OF HIP [M76.899] 07/06/2005 SPRAIN LUMBAR REGION [S33.5XXA] 07/06/2005 Dyslipidemia associated with type 2 diabetes me* Paroxysmal atrial fibrillation (HCC) [I48.0] 01/15/2023 Carotid stenosis, asymptomatic [I65.29] Right renal mass [N28.89] 05/18/2019 Obesity, Class II, BMI 35-39.9 [E66.812] 05/19/2019 Renal carcinoma, right (HCC) [C64.1] 05/20/2019 01/21/2023 Other cirrhosis of liver (HCC) [K74.69] 05/23/2020 Stage 3a chronic kidney disease (HCC) [N18.31] 08/10/2022 Obesity, Class I, BMI 30-34.9 [E66.811] 11/19/2022 01/22/2023 Anticoagulant long-term use [Z79.01] 11/24/2022 Third degree atrioventricular block (HCC) [I44.*01/22/2023 Bradycardia [R00.1] 01/22/2023 At risk for stroke [Z91.89] 01/22/2023 Bilateral carotid artery stenosis [I65.23] 10/10/2016 Diagnosed: 01/22/2023 Gastroesophageal reflux disease [K21.9] 01/22/2023 Diagnosed: 01/22/2023 Hyperlipidemia [E78.5] 01/22/2023 Diagnosed: 01/22/2023 Recurrent falls [R29.6] 01/22/2023 Diagnosed: 01/22/2023 Orthostatic hypotension [I95.1] 01/17/2023 Diagnosed: 01/22/2023 Holley-Mary syncope [I45.9] 01/22/2023 Diabetes mellitus type 2 in obese (HCC) [E11.6*01/22/2023 S/P placement of cardiac pacemaker [Z95.0] 01/25/2023 Encounter Status:Closed by OTONIEL KING on 06/11/24 Normal [facility] CNOVon 06-08-2024 CNOV Office Visit (FAMPWS ) -------- AARONLAISHA JENNINGS ([id number]) 1950 F Date Time Provider Department 06/08/24 1:00 PM OTONIEL KING During your visit today, we recorded the following information about you: Pulse Respiration Blood pressure Weight 65/minute 16/minute 120/66 90.7 kg Otoniel King APRN.MORTICIAN INVESTIGATOR 06/08/2024 1:23 PM Signed Chief Complaint Patient presents with: Hospital F/U: [facility] HPI Laisha Johnston Aaron is a 74 year old female who presents here today for Hospital Discharge Follow up. follow up for weakness, falls, elevated troponin. Umm is a 74-year-old female with a history of cirrhosis, recent falls, and hemorrhoids, presenting for follow-up after a recent hospitalization. Umm was recently hospitalized from June 02 to June 05 at [facility] following a fall while walking to the bathroom, during which she hit her head. Imaging studies, including CT scans of the head, neck, chest, and abdomen, were performed and reportedly showed no acute abnormalities. However, the abdominal CT scan suggested possible cirrhosis, for which she has a follow-up appointment with Dr. Jane on the . She is also following up with private duty rn for neck artery issues in the next 2 weeks and is under the care of [facility] for Coumadin management. Since her discharge, Umm reports persistent dizziness, stating, my middle name is dizzy. She also experiences episodes of her legs giving out, particularly in the right knee, which has a history of surgery. She describes the knee as buckling and notes pain and swelling. Additionally, she reports pain in her right hip, where a arden was placed approximately a decade ago, stating, it's been hurting since the fall, not this fall...probably 4 falls ago. She expresses concern that the arden may be contributing to her symptoms. Umm also reports ongoing issues with hemorrhoids, experiencing bright red blood in her stool. She uses Anusol and occasionally takes sitz baths for relief. She denies any recent episodes of melena. She is currently receiving home health services for physical therapy to improve her strength. She monitors her blood pressure at home, noting readings around 150/60, but reports lower readings since her recent hospitalization. She is on metoprolol and losartan for blood pressure management. She also takes a multivitamin that includes iron. Past medical history, appointments, medications, allergies reviewed. EXAM: BP 120/66 Pulse 65 Resp 16 Wt 90.7 kg (200 lb) SpO2 96% BMI 35.44 kg/m? General Appearance: Well appearing, alert, in no acute distress, well-hydrated, well nourished.. Lungs: Lungs clear to auscultation. No wheezing, rhonchi, rales.. Heart: RRR without murmur, gallop, or rubs. No ectopy. M/S: Moderate tenderness of the right lateral hip, unable to get onto exam table for extensive exam. 1. Generalized weakness (R53.1) Fall, sequela (W19.XXXS) Recent hospitalization from 06/02 to 06/05 at [facility] due to a fall while walking to the bathroom, resulting in head trauma. CT scans of the head, neck, chest, and abdomen were performed, all showing no acute abnormalities. Patient reports two episodes of legs giving out, leading to falls. Currently receiving home health physical therapy for strengthening. - Continue home health physical therapy. - Monitor for any further episodes of weakness or falls. 2. Gastrointestinal hemorrhage associated with peptic ulcer (K27.4) Recent hospitalization noted a drop in hemoglobin to 9.4 g/dL, with initial levels in the mid-10s. No current melena reported, but bright red blood per rectum due to hemorrhoids. Patient uses Anusol and performs sitz baths for hemorrhoid management. - Continue Anusol and increase frequency of sitz baths or Epsom salt baths up to four times daily - Monitor for any signs of melena or increased bleeding. 3. Iron deficiency anemia due to chronic blood loss (D50.0) Hemoglobin levels have decreased, but not to the threshold for transfusion. Patient takes a multivitamin with iron. - Repeat CBC in one month to monitor hemoglobin levels. - Continue multivitamin with iron. - Encourage dietary intake of iron-rich foods. 4. Hypertension, essential (I10) Blood pressure readings have been variable, with recent in-office measurement at 120/66 mmHg and home readings reportedly around 150/60 mmHg. Currently on metoprolol and losartan 25 mg daily. - Continue current antihypertensive regimen. - Monitor blood pressure at home and report any significant changes. 5. Other cirrhosis of liver (HCC) (K74.69) CT scan findings suggestive of cirrhosis. Follow-up with Dr. Jane scheduled for next week to discuss potential liver biopsy for definitive diagnosis. - Follow-up with Dr. Jane on 06/11 to discuss liver biopsy. 6. Pain of r (more content not included)... Normal [facility] XR HIP 3V PELV+ AP/LAT RTon 06-08-2024 XR HIP 3V PELV+ AP/LAT RT * * *Final Report* * * DATE OF EXAM: Jun 08 2024 2:02PM WOX [id number] - XR HIP 3V PELV+ AP/LAT RT / PROCEDURE REASON: multiple diagnoses * * * * Physician Interpretation * * * * HIP RADIOGRAPHS - RIGHT HISTORY: Fall, sequela Pain of right hip TECHNOLOGIST PROVIDED HISTORY (if applicable): right hip pain. Pt states she has fallen multiple times over the last few weeks. TECHNIQUE: XR HIP 3V PELV+ AP/LAT RT COMPARISON: Comparison radiographs 02/09/2022 RESULT: There is mild medial narrowing of the right hip joint There is mild medial narrowing of the left hip joint Pelvic ring is intact. There is mild SI joint and symphysis pubis arthrosis. Distal lumbar spondylosis Intramedullary arden in the femur with healed fracture deformity distal metaphysis and partially visualized knee arthroplasty IMPRESSION: 1. No acute radiographic abnormality of the right hip Account Group Supervisor: PSCB Transcribe Date/Time: Jun 12 2024 7:13P Dictated by : SHEFALI WYMAN MD This examination was interpreted and the report reviewed and electronically signed by: SHEFALI WYMAN MD on Jun 12 2024 7:14PM EST [id number] Normal [facility] Basic Metabolic Profile (BMP )on 06-07-2024 BUN Normal 4-19 [facility] Comment on above: Result Comment: Canc elled via OM: Order cancelled - Patient discharged Performed By: #### L 500.2500, L100.0100 ####[facility] [address] [place], [address] BUN/CRE Normal 10-20 [facility] Comment on above: Result Comment: Canc elled via OM: Order cancelled - Patient discharged Performed By: #### L 500.2500, L100.0100 ####[facility] [address] [place], [address] Calcium Normal 7.6-11.0 [facility] Comment on above: Result Comment: Canc elled via OM: Order cancelled - Patient discharged Performed By: #### L 500.2500, L100.0100 ####[facility] [address] [place], [address] CL Normal 98-108 [facility] Comment on above: Result Comment: Canc elled via OM: Order cancelled - Patient discharged Performed By: #### L 500.2500, L100.0100 ####[facility] [address] [place], [address] CO2 Normal 21.0-32.0 [facility] Comment on above: Result Comment: Canc elled via OM: Order cancelled - Patient discharged Performed By: #### L 500.2500, L100.0100 ####[facility] [address] [place], [address] CREAT,SERUM Normal 0.70-1.20 [facility] Comment on above: Result Comment: Canc elled via OM: Order cancelled - Patient discharged Performed By: #### L 500.2500, L100.0100 ####[facility] [address] [place], [address] eGFR Normal >60 [facility] Comment on above: Result Comment: Canc elled via OM: Order cancelled - Patient discharged Performed By: #### L 500.2500, L100.0100 ####[facility] [address] [place], [address] GAP Normal 5-15 [facility] Comment on above: Result Comment: Canc elled via OM: Order cancelled - Patient discharged Performed By: #### L 500.2500, L100.0100 ####[facility] [address] [place], [address] GLU Normal 70-99 [facility] Comment on above: Result Comment: Canc elled via OM: Order cancelled - Patient discharged Performed By: #### L 500.2500, L100.0100 ####[facility] [address] [place], [address] Potassium Normal 3.3-5.1 [facility] Comment on above: Result Comment: Canc elled via OM: Order cancelled - Patient discharged Performed By: #### L 500.2500, L100.0100 ####[facility] [address] [place], [address] Basic Metabolic Profile (BMP) Normal 133-145 [facility] Comment on above: Result Comment: Canc elled via OM: Order cancelled - Patient discharged Performed By: #### L 500.2500, L100.0100 ####[facility] [address] [place], [address] CBC W/Diff, Automatedon 04-0 -2024 Absolute Neut Normal 2.0-7.7 [facility] Comment on above: Result Comment: Canc elled via OM: Order cancelled - Patient discharged Performed By: #### L 500.2500, L100.0100 ####[facility] [address] [place], [address] HCT Normal 37-47 [facility] Comment on above: Result Comment: Canc elled via OM: Order cancelled - Patient discharged Performed By: #### L 500.2500, L100.0100 ####[facility] [address] [place], [address] HGB Normal 12.0-15.0 [facility] Comment on above: Result Comment: Canc elled via OM: Order cancelled - Patient discharged Performed By: #### L 500.2500, L100.0100 ####[facility] [address] [place], [address] MCH Normal 27.0-32.0 [facility] Comment on above: Result Comment: Canc elled via OM: Order cancelled - Patient discharged Performed By: #### L 500.2500, L100.0100 ####[facility] [address] [place], [address] MCHC Normal 32-36 [facility] Comment on above: Result Comment: Canc elled via OM: Order cancelled - Patient discharged Performed By: #### L 500.2500, L100.0100 ####[facility] [address] [place], [address] MCV Normal 81-99 [facility] Comment on above: Result Comment: Canc elled via OM: Order cancelled - Patient discharged Performed By: #### L 500.2500, L100.0100 ####[facility] [address] [place], [address] NEUT% Normal 47-70 [facility] Comment on above: Result Comment: Canc elled via OM: Order cancelled - Patient discharged Performed By: #### L 500.2500, L100.0100 ####[facility] [address] [place], [address] PLT Normal 150-450 [facility] Comment on above: Result Comment: Canc elled via OM: Order cancelled - Patient discharged Performed By: #### L 500.2500, L100.0100 ####[facility] [address] [place], [address] RBC Normal 4.2-5.4 [facility] Comment on above: Result Comment: Canc elled via OM: Order cancelled - Patient discharged Performed By: #### L 500.2500, L100.0100 ####[facility] [address] [place], [address] RDW CV Normal 11.6-14.6 [facility] Comment on above: Result Comment: Canc elled via OM: Order cancelled - Patient discharged Performed By: #### L 500.2500, L100.0100 ####[facility] [address] [place], [address] RDW SD Normal 35.1-43.9 [facility] Comment on above: Result Comment: Canc elled via OM: Order cancelled - Patient discharged Performed By: #### L 500.2500, L100.0100 ####[facility] [address] [place], [address] WBC Normal 4.4-11.0 [facility] Comment on above: Result Comment: Canc elled via OM: Order cancelled - Patient discharged Performed By: #### L 500.2500, L100.0100 ####[facility] [address] [place], [address] CNPNon 06-07-2024 CNPN Telephone (FAMPWS) -------- LAISHA WALKER ([id number]) 1950 F Date Time Provider Department 06/07/24 FLAKO TRACY FAMPWS During your visit today, we recorded the following information about you: Tresa Noriega LPN 06/07/2024 1:36 PM Signed Jacquie from [facility] calling with residential plan of care, 1 visit weekly for 1 week, then 2 visits weekly for 1 week, then 1 visit weekly for 3 weeks. No need for return call. Flako Tracy MD 06/07/2024 1:49 PM Signed Noted and agree Flako Tracy MD Allergies As of Date: 06/07/2024 Noted Allergy Reaction GABAPENTIN 11/03/2021 14 - Other: See Comments Comments: Dizziness ACCUPRIL (QUINAPRIL HCL) 07/05/2005 14 - Other: See Comments BEXTRA (VALDECOXIB) 07/05/2005 8 - GI Upset CELEBREX (CELECOXIB) 07/05/2005 8 - GI Upset Comments: CODEINE 07/05/2005 14 - Other: See Comments ENTEX LA (PHENYLEPHRINE-GUAIFENES *07/05/2005 14 - Other: See Comments GLUCOPHAGE (METFORMIN HCL) 07/05/2005 14 - Other: See Comments LIPITOR (ATORVASTATIN CALCIUM) 07/05/2005 14 - Other: See Comments LODINE (ETODOLAC) 07/05/2005 8 - GI Upset NAPROSYN (NAPROXEN) 07/05/2005 14 - Other: See Comments NSAIDS (NON-STEROIDAL ANTI-INFLAM*12/06/2019 14 - Other: See Comments PRAVACHOL (PRAVASTATIN SODIUM) 07/05/2005 14 - Other: See Comments Comments: Worsening abdominal pain SULFA (SULFONAMIDE ANTIBIOTICS) 07/08/2014 8 - GI Upset ULTRACET (TRAMADOL-ACETAMINOPHEN) 07/05/2005 14 - Other: See Comments VICODIN (HYDROCODONE-ACETAMINOPH E*07/05/2005 14 - Other: See Comments VIOXX (ROFECOXIB) 07/05/2005 14 - Other: See Comments ZOCOR (SIMVASTATIN) 07/05/2005 14 - Other: See Comments Date Reviewed: 05/22/2024 Reviewed by: Areli Stanton LPN - Fully Assessed Reason for Visit: skilled nusring plan of care [Other] Prescriptions as of 06/07/2024 - sucralfate (CARAFATE) 1 gram tablet Take 1 g by mouth three times a day before meals. - pantoprazole DR (PROTONIX) 40 mg tablet Take 1 tablet by mouth every 12 hours. - blood sugar diagnostic (BLOOD GLUCOSE TEST) test strip Test blood sugar(s) 1` times daily. Dx: Type 2 DM - Uncontrolled E11.65 Insulin: No - glipiZIDE (GLUCOTROL XL) 10mg 24 hr tablet Take 1 tablet by mouth two times a day. - metoprolol tartrate, short acting, (LOPRESSOR) 50 mg tablet Take 50 mg by mouth two times a day. - rosuvastatin (CRESTOR) 10 mg tablet Take 20 mg by mouth once daily. - losartan (COZAAR) 25 mg tablet Take 0.5 tablets by mouth every afternoon. - warfarin (COUMADIN) 5 mg tablet 2.5 mg //Tuesday, 5 mg all other days or as directed - docusate sodium (STOOL SOFTENER ORAL) Take by mouth as needed. OTC - Lancets lancets Test blood sugar(s) 1` times daily. Dx: Type 2 DM - Uncontrolled E11.65 Insulin: No - hydrocortisone (ANUSOL-HC) 2.5 % rectal cream by RECTAL route twice daily. - multivitamin (MULTIPLE VITAMINS ORAL) Take by mouth. - alcohol swabs (ALCOHOL PREP PADS) Apply 1 application to affected area once daily. - loratadine (CLARITIN) 10 mg tablet Take 10 mg by mouth once daily. - acetaminophen (TYLENOL) 325 mg tablet Take 500 mg by mouth. 2 TABLETS AT HS Problem List As Of Date 06/07/2024 Noted Resolved LUMBAGO [M54.50] 07/06/2005 ENTHESOPATHY OF HIP [M76.899] 07/06/2005 SPRAIN LUMBAR REGION [S33.5XXA] 07/06/2005 Dyslipidemia associated with type 2 diabetes me* Paroxysmal atrial fibrillation (HCC) [I48.0] 01/15/2023 Carotid stenosis, asymptomatic [I65.29] Right renal mass [N28.89] 05/18/2019 Obesity, Class II, BMI 35-39.9 [E66.812] 05/19/2019 Renal carcinoma, right (HCC) [C64.1] 05/20/2019 01/21/2023 Other cirrhosis of liver (HCC) [K74.69] 05/23/2020 Stage 3a chronic kidney disease (HCC) [N18.31] 08/10/2022 Obesity, Class I, BMI 30-34.9 [E66.811] 11/19/2022 01/22/2023 Anticoagulant long-term use [Z79.01] 11/24/2022 Third degree atrioventricular block (HCC) [I44.*01/22/2023 Bradycardia [R00.1] 01/22/2023 At risk for stroke [Z91.89] 01/22/2023 Bilateral carotid artery stenosis [I65.23] 10/10/2016 Diagnosed: 01/22/2023 Gastroesophageal reflux disease [K21.9] 01/22/2023 Diagnosed: 01/22/2023 Hyperlipidemia [E78.5] 01/22/2023 Diagnosed: 01/22/2023 Recurrent falls [R29.6] 01/22/2023 Diagnosed: 01/22/2023 Orthostatic hypotension [I95.1] 01/17/2023 Diagnosed: 01/22/2023 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, [address] BUN/CRE Normal - [facility] Comment on above: Result Comment: Canc elled via OM: Order cancelled - Patient discharged Performed By: #### L 100.0100, L500.2500 ####[facility] [address] [place], [address] Calcium Normal 7.6-11.0 [facility] Comment on above: Result Comment: Canc elled via OM: Order cancelled - Patient discharged Performed By: #### L 100.0100, L500.2500 ####[facility] [address] [place], [address] CL Normal 98-108 [facility] Comment on above: Result Comment: Canc elled via OM: Order cancelled - Patient discharged Performed By: #### L 100.0100, L500.2500 ####[facility] [address] [place], [address] CO2 Normal 21.0-32.0 [facility] Comment on above: Result Comment: Canc elled via OM: Order cancelled - Patient discharged Performed By: #### L 100.0100, L500.2500 ####[facility] [address] [place], [address] CREAT,SERUM Normal 0.70-1.20 [facility] Comment on above: Result Comment: Canc elled via OM: Order cancelled - Patient discharged Performed By: #### L 100.0100, L500.2500 ####[facility] [address] [place], [address] eGFR Normal >60 [facility] Comment on above: Result Comment: Canc elled via OM: Order cancelled - Patient discharged Performed By: #### L 100.0100, L500.2500 ####[facility] [address] [place], [address] GAP Normal 5-15 [facility] Comment on above: Result Comment: Canc elled via OM: Order cancelled - Patient discharged Performed By: #### L 100.0100, L500.2500 ####[facility] [address] [place], [address] GLU Normal 70-99 [facility] Comment on above: Result Comment: Canc elled via OM: Order cancelled - Patient discharged Performed By: #### L 100.0100, L500.2500 ####[facility] [address] [place], [address] Potassium Normal 3.3-5.1 [facility] Comment on above: Result Comment: Canc elled via OM: Order cancelled - Patient discharged Performed By: #### L 100.0100, L500.2500 ####[facility] [address] [place], [address] Basic Metabolic Profile (BMP) Normal 133-145 [facility] Comment on above: Result Comment: Canc elled via OM: Order cancelled - Patient discharged Performed By: #### L 100.0100, L500.2500 ####[facility] [address] [place], [address] CBC W/Diff, Automatedon 04-0 Absolute Neut Normal 2.0-7.7 [facility] Comment on above: Result Comment: Canc elled via OM: Order cancelled - Patient discharged Performed By: #### L 100.0100, L500.2500 ####[facility] [address] [place], [address] HCT Normal 37-47 [facility] Comment on above: Result Comment: Canc elled via OM: Order cancelled - Patient discharged Performed By: #### L 100.0100, L500.2500 ####[facility] [address] [place], [address] HGB Normal 12.0-15.0 [facility] Comment on above: Result Comment: Canc elled via OM: Order cancelled - Patient discharged Performed By: #### L 100.0100, L500.2500 ####[facility] [address] [place], [address] MCH Normal 27.0-32.0 [facility] Comment on above: Result Comment: Canc elled via OM: Order cancelled - Patient discharged Performed By: #### L 100.0100, L500.2500 ####[facility] [address] [place], [address] MCHC Normal 32-36 [facility] Comment on above: Result Comment: Canc elled via OM: Order cancelled - Patient discharged Performed By: #### L 100.0100, L500.2500 ####[facility] [address] [place], [address] MCV Normal 81-99 [facility] Comment on above: Result Comment: Canc elled via OM: Order cancelled - Patient discharged Performed By: #### L 100.0100, L500.2500 ####[facility] [address] [place], [address] NEUT% Normal 47-70 [facility] Comment on above: Result Comment: Canc elled via OM: Order cancelled - Patient discharged Performed By: #### L 100.0100, L500.2500 ####[facility] [address] [place], [address] PLT Normal 150-450 [facility] Comment on above: Result Comment: Canc elled via OM: Order cancelled - Patient discharged Performed By: #### L 100.0100, L500.2500 ####[facility] [address] [place], [address] RBC Normal 4.2-5.4 [facility] Comment on above: Result Comment: Canc elled via OM: Order cancelled - Patient discharged Performed By: #### L 100.0100, L500.2500 ####[facility] [address] [place], [address] RDW CV Normal 11.6-14.6 [facility] Comment on above: Result Comment: Canc elled via OM: Order cancelled - Patient discharged Performed By: #### L 100.0100, L500.2500 ####[facility] [address] [place], [address] RDW SD Normal 35.1-43.9 [facility] Comment on above: Result Comment: Canc elled via OM: Order cancelled - Patient discharged Performed By: #### L 100.0100, L500.2500 ####[facility] [address] [place], [address] WBC Normal 4.4-11.0 [facility] Comment on above: Result Comment: Canc elled via OM: Order cancelled - Patient discharged Performed By: #### L 100.0100, L500.2500 ####[facility] [address] [place], [address] Absolute lymphocyte countOrd ered By: [place] Lopez on 06-05-2024 Lymphocytes Auto (Unsp spec) [#/Vol] 2.22 10*3/uL 0.83-4.51 [facility] Absolute neutrophil countOrd ered By: [place] Lopez on 06-05-2024 Neutrophils (Bld) [#/Vol] 3.3 10*3/uL 2.0-7.7 [facility] Anion gap in Serum or Plasma Ordered By: [place] Lopez on 06-05-2024 Anion gap [Moles/Vol] 12 mmol/L 5-15 [facility] Automated lymphocyte count a s percentage of total leukocytesOrdered By: [place] Lopez on 06-05-2024 Lymphocytes/100 WBC Auto (Unsp spec) 35.2 % - [facility] BUN/creatinine ratioOrdered By: [place] Lopez on 06-05-2024 Urea nitrogen/Creatinine [Mass ratio] 17.8 mg/mg - [facility] Basic Metabolic Profile (BMP )on 06-05-2024 BUN/CRE 17.8 RATIO Normal - [facility] Comment on above: Performed By: #### L 100.0100, L501.2300, L500.2500, L501.5200 ####[facility] [address] [place], [address] ECRCL 49.62 ml/min Low 50-250 [facility] Comment on above: Performed By: #### L 100.0100, L501.2300, L500.2500, L501.5200 ####[facility] [address] [place], [address] GAP 12 Normal 5-15 [facility] Comment on above: Performed By: #### L 100.0100, L501.2300, L500.2500, L501.5200 ####[facility] [address] [place], [address] Basophil percentageOrdered B y: [place] Mitulpriscilla on 06-05-2024 Basophils/100 WBC (Bld) 1.1 % High 0-1 [facility] Bedside Glucoseon 06-05-2024 FINGERSTICK GLU 267 mg/dL High 74-106 [facility] Comment on above: Result Comment: MUKUND GEMENT OF PATIENT CARE PER NURSING PROTOCOL Performed By: #### L 501.080 ####[facility] [address] [place], [address] FINGERSTICK GLU 133 mg/dL High 74-106 [facility] Comment on above: Result Comment: MUKUND GEMENT OF PATIENT CARE PER NURSING PROTOCOL Performed By: #### L 501.080 ####[facility] [address] [place], [address] CBC W/Diff, Automatedon 04-0 Absolute Lymph 2.22 X10 3/uL Normal 0.83-4.51 [facility] Comment on above: Performed By: #### L 100.0100, L501.2300, L500.2500, L501.5200 ####[facility] [address] [place], [address] Absolute Neut 3.3 X10 3/uL Normal 2.0-7.7 [facility] Comment on above: Performed By: #### L 100.0100, L501.2300, L500.2500, L501.5200 ####[facility] [address] [place], [address] Basophils/100 WBC (Bld) 1.1 % High 0-1 [facility] Comment on above: Performed By: #### L 100.0100, L501.2300, L500.2500, L501.5200 ####[facility] [address] [place], [address] Eosinophils/100 WBC (Bld) 2.4 % Normal 0-5 [facility] Comment on above: Performed By: #### L 100.0100, L501.2300, L500.2500, L501.5200 ####[facility] [address] [place], [address] Erythrocyte distribution width (RBC) [Ratio] 14.3 % Normal 11.6-14.6 [facility] Comment on above: Performed By: #### L 100.0100, L501.2300, L500.2500, L501.5200 ####[facility] [address] [place], [address] Hematocrit (Bld) [Volume fraction] 29.2 % Low 37-47 [facility] Comment on above: Performed By: #### L 100.0100, L501.2300, L500.2500, L501.5200 ####[facility] [address] [place], [address] Hemoglobin (Bld) [Mass/Vol] 9.4 g/dL Low 12.0-15.0 [facility] Comment on above: Performed By: #### L 100.0100, L501.2300, L500.2500, L501.5200 ####[facility] [address] [place], [address] IG% 0.300 Normal 0.0-0.9 [facility] Comment on above: Result Comment: IG% - Immature Granulocytes (promyelocytes, myelocytes andmetamyelocytes) > 1% indicates that a LEFT SHIFT is Present. Performed By: #### L 100.0100, L501.2300, L500.2500, L501.5200 ####[facility] [address] [place], [address] Lymphocytes/100 WBC (Bld) 35.2 % Normal 19-41 [facility] Comment on above: Performed By: #### L 100.0100, L501.2300, L500.2500, L501.5200 ####[facility] [address] [place], [address] MCH (RBC) [Entitic mass] 27.2 pg Normal 27.0-32.0 [facility] Comment on above: Performed By: #### L 100.0100, L501.2300, L500.2500, L501.5200 ####[facility] [address] [place], [address] MCHC (RBC) [Mass/Vol] 32.2 g/dL Normal 32-36 [facility] Comment on above: Performed By: #### L 100.0100, L501.2300, L500.2500, L501.5200 ####[facility] [address] [place], [address] MCV (RBC) [Entitic vol] 84.6 fL Normal 81-99 [facility] Comment on above: Performed By: #### L 100.0100, L501.2300, L500.2500, L501.5200 ####[facility] [address] [place], [address] Monocytes/100 WBC (Bld) 9.4 % Normal 0-10 [facility] Comment on above: Performed By: #### L 100.0100, L501.2300, L500.2500, L501.5200 ####[facility] [address] [place], [address] Neutrophils/100 WBC (Bld) 51.6 % Normal 47-70 [facility] Comment on above: Performed By: #### L 100.0100, L501.2300, L500.2500, L501.5200 ####[facility] [address] [place], [address] Nucleated RBC (Bld) [#/Vol] 0 10*3/uL Normal 0-5 [facility] Comment on above: Performed By: #### L 100.0100, L501.2300, L500.2500, L501.5200 ####[facility] [address] [place], [address] Platelet mean volume (Bld) [Entitic vol] 11.4 fL Normal 6.2-12.0 [facility] Comment on above: Performed By: #### L 100.0100, L501.2300, L500.2500, L501.5200 ####[facility] [address] [place], [address] Platelets (Bld) [#/Vol] 310 10*3/uL Normal 150-450 [facility] Comment on above: Performed By: #### L 100.0100, L501.2300, L500.2500, L501.5200 ####[facility] [address] [place], [address] RBC (Bld) [#/Vol] 3.45 10*6/uL Low 4.2-5.4 [facility] Comment on above: Performed By: #### L 100.0100, L501.2300, L500.2500, L501.5200 ####[facility] [address] [place], [address] RDW SD 44.3 fl High 35.1-43.9 [facility] Comment on above: Performed By: #### L 100.0100, L501.2300, L500.2500, L501.5200 ####[facility] [address] [place], [address] WBC (Bld) [#/Vol] 6.3 10*3/uL Normal 4.4-11.0 [facility] Comment on above: Performed By: #### L 100.0100, L501.2300, L500.2500, L501.5200 ####[facility] [address] [place], [address] CNPNon 06-05-2024 CNPN Telephone (FAMPWS) -------- LAISHA WALKER ([id number]) 1950 F Date Time Provider Department 06/05/24 [facility] During your visit today, we recorded the following information about you: Vickie Gaines, RN 06/05/2024 12:50 PM Signed Georgie- [facility] HH- reports patient is being discharged from [facility] today with referral for C SN PT OT. Admitted for falls/weakness AND possible UTI. Georgie asking if pcp is agreeable to follow. Please phone Georgie with verbal: [phone] Flako Tracy MD 06/05/2024 2:42 PM Signed I am agreeable to follow for HHC orders MD Ed Gomez Rilee, MA 06/05/2024 3:55 PM Signed Return call to Georgie and notified of message below from Provider. Georgie verbalized understanding. Trip Angeles MA Allergies As of Date: 06/05/2024 Noted Allergy Reaction GABAPENTIN 11/03/2021 14 - Other: See Comments Comments: Dizziness ACCUPRIL (QUINAPRIL HCL) 07/05/2005 14 - Other: See Comments BEXTRA (VALDECOXIB) 07/05/2005 8 - GI Upset CELEBREX (CELECOXIB) 07/05/2005 8 - GI Upset Comments: CODEINE 07/05/2005 14 - Other: See Comments ENTEX LA (PHENYLEPHRINE-GUAIFENES *07/05/2005 14 - Other: See Comments GLUCOPHAGE (METFORMIN HCL) 07/05/2005 14 - Other: See Comments LIPITOR (ATORVASTATIN CALCIUM) 07/05/2005 14 - Other: See Comments LODINE (ETODOLAC) 07/05/2005 8 - GI Upset NAPROSYN (NAPROXEN) 07/05/2005 14 - Other: See Comments NSAIDS (NON-STEROIDAL ANTI-INFLAM*12/06/2019 14 - Other: See Comments PRAVACHOL (PRAVASTATIN SODIUM) 07/05/2005 14 - Other: See Comments Comments: Worsening abdominal pain SULFA (SULFONAMIDE ANTIBIOTICS) 07/08/2014 8 - GI Upset ULTRACET (TRAMADOL-ACETAMINOPHEN) 07/05/2005 14 - Other: See Comments VICODIN (HYDROCODONE-ACETAMINOPH E*07/05/2005 14 - Other: See Comments VIOXX (ROFECOXIB) 07/05/2005 14 - Other: See Comments ZOCOR (SIMVASTATIN) 07/05/2005 14 - Other: See Comments Date Reviewed: 05/22/2024 Reviewed by: Areli Stanton LPN - Fully Assessed Reason for Visit: [facility] agree to follow [Other] Prescriptions as of 06/05/2024 - sucralfate (CARAFATE) 1 gram tablet Take 1 g by mouth three times a day before meals. - pantoprazole DR (PROTONIX) 40 mg tablet Take 1 tablet by mouth every 12 hours. - blood sugar diagnostic (BLOOD GLUCOSE TEST) test strip Test blood sugar(s) 1` times daily. Dx: Type 2 DM - Uncontrolled E11.65 Insulin: No - glipiZIDE (GLUCOTROL XL) 10mg 24 hr tablet Take 1 tablet by mouth two times a day. - metoprolol tartrate, short acting, (LOPRESSOR) 50 mg tablet Take 50 mg by mouth two times a day. - rosuvastatin (CRESTOR) 10 mg tablet Take 20 mg by mouth once daily. - losartan (COZAAR) 25 mg tablet Take 0.5 tablets by mouth every afternoon. - warfarin (COUMADIN) 5 mg tablet 2.5 mg //Tuesday, 5 mg all other days or as directed - docusate sodium (STOOL SOFTENER ORAL) Take by mouth as needed. OTC - Lancets lancets Test blood sugar(s) 1` times daily. Dx: Type 2 DM - Uncontrolled E11.65 Insulin: No - hydrocortisone (ANUSOL-HC) 2.5 % rectal cream by RECTAL route twice daily. - multivitamin (MULTIPLE VITAMINS ORAL) Take by mouth. - alcohol swabs (ALCOHOL PREP PADS) Apply 1 application to affected area once daily. - loratadine (CLARITIN) 10 mg tablet Take 10 mg by mouth once daily. - acetaminophen (TYLENOL) 325 mg tablet Take 500 mg by mouth. 2 TABLETS AT HS Problem List As Of Date 06/05/2024 Noted Resolved LUMBAGO [M54.50] 07/06/2005 ENTHESOPATHY OF HIP [M76.899] 07/06/2005 SPRAIN LUMBAR REGION [S33.5XXA] 07/06/2005 Dyslipidemia associated with type 2 diabetes me* Paroxysmal atrial fibrillation (HCC) [I48.0] 01/15/2023 Carotid stenosis, asymptomatic [I65.29] Right renal mass [N28.89] 05/18/2019 Obesity, Class II, BMI 35-39.9 [E66.812] 05/19/2019 Renal carcinoma, right (HCC) [C64.1] 05/20/2019 01/21/2023 Other cirrhosis of liver (HCC) [K74.69] 05/23/2020 Stage 3a chronic kidney disease (HCC) [N18.31] 08/10/2022 Obesity, Class I, BMI 30-34.9 [E66.811] 11/19/2022 01/22/2023 Anticoagulant long-term use [Z79.01] 11/24/2022 Third degree atrioventricular block (HCC) [I44.*01/22/2023 Bradycardia [R00.1] 01/22/2023 At risk for stroke [Z91.89] 01/22/2023 Bilateral carotid artery stenosis [I65.23] 10/10/2016 Diagnosed: 01/22/2023 Gastroesophageal reflux disease [K21.9] 01/22/2023 Diagnosed: 01/22/2023 Hyperlipidemia [E78.5] 01/22/2023 Diagnosed: 01/22/2023 Recurrent falls [R29.6] 01/22/2023 Diagnosed: 01/22/2023 Orthostatic hypotension [I95.1] 01/17/2023 Diagnosed: 01/22/2023 Holley-Mary syncope [I45.9] 01/22/2023 Diabetes mellitus type 2 in obese (HCC) [E11.6*01/22/2023 S/P placement of cardiac pacemaker [Z95.0] 01/25/2023 Encounter Status:Closed by TRIP ANGELES on 06/05/24 Normal [facility] Carbon dioxide, total [Moles /volume] in Central venous bloodOrdered By: South Lopez on 06-05-2024 CO2 [Moles/Vol] 21.7 mmol/L Normal 21.0-32.0 [facility] Comment on above: Performed By: #### L 100.0100, L501.2300, L500.2500, L501.5200 ####[facility] [address] [facility] [place], [place], [id number] Chloride assayOrdered By: Tobias Lopez on 06-05-2024 Chloride [Moles/Vol] 107 mmol/L Normal 98-108 [facility] Comment on above: Performed By: #### L 100.0100, L501.2300, L500.2500, L501.5200 ####[facility] [address] [facility]. [place], [place], [address] Eosinophil percentageOrdered By: South Lopez on 06-05-2024 Eosinophils/100 WBC (Bld) 2.4 % 0-5 [facility] Erythrocyte distribution wid th ratioOrdered By: South Lopez on 06-05-2024 Erythrocyte distribution width (RBC) [Ratio] 14.3 % 11.6-14.6 [facility] Erythrocyte distribution wid th standard deviationOrdered By: South Lopez on 06-05-2024 Erythrocyte distribution width (RBC) [Entitic vol] 44.3 fL High 35.1-43.9 [facility] Erythrocyte distribution width (RBC) [Ratio] 44.3 fl High 35.1-43.9 [facility] Estimation of creatinine stefani aranceOrdered By: South Lopez on 06-05-2024 Estimated Creatinine Clearance Calc 49.62 ml/min Low 50-250 [facility] GFR/1.73 sq M.predicted killian g non-blacks MDRD (S/P/Bld) [Vol rate/Area]Ordered By: South Lopez on 06-05-2024 Estimated GFR (MDRD) Non-Af Amer 54 Low >60 [facility] Comment on above: mL/min/1.73m2 CKD-EP I Creatinine Equation (2020) Glomerular filtration rate ( GFR) estimation/1.73 sq m using serum, plasma, or whole bOrdered By: South Lopez on 06-05-2024 GFR/1.73 sq M.predicted among non-blacks MDRD (S/P/Bld) [Vol rate/Area] 54 mL/min/{1.73_m2} Low >60 [facility] Comment on above: Result Comment: mL/m in/1.73m2 CKD-EPI Creatinine Equation (2020) Performed By: #### L 100.0100, L501.2300, L500.2500, L501.5200 ####[facility] [address] [place], [address] [facility] deOrdered By: South Lopez on 06-05-2024 Bedside Glucose (Misc Panel) 267 mg/dL High 74-106 [facility] Comment on above: MANAGEMENT OF PATIEN T CARE PER NURSING PROTOCOL Glucose [Mass/Vol] 267 mg/dL High 74-106 [facility] Hematocrit Auto (Bld) [Volum e fraction]Ordered By: South Lopez on 06-05-2024 Hematocrit (Bld) [Volume fraction] 29.2 % Low 37-47 [facility] Hemoglobin measurementOrdere d By: South Lopez on 06-05-2024 Hemoglobin (Bld) [Mass/Vol] 9.4 g/dL Low 12.0-15.0 [facility] Immature granulocytes/100 WB C Auto (Bld)Ordered By: South Lopez on 06-05-2024 Immature granulocytes/100 WBC (Bld) 0.300 % 0.0-0.9 [facility] Comment on above: IG% - Immature Granu locytes (promyelocytes, myelocytes and metamyelocytes) > 1% indicates that a LEFT SHIFT is Present. Lymphocytes Auto (Unsp spec) [#/Vol]Ordered By: South Lopez on 06-05-2024 Lymphocytes (Bld) [#/Vol] 2.22 10*3/uL 0.83-4.51 [facility] Lymphocytes/100 WBC Auto (Un sp spec)Ordered By: South Lopez on 06-05-2024 Lymphocytes/100 WBC (Bld) 35.2 % 19-41 [facility] MCV (mean corpuscular volume ) determinationOrdered By: South Lopez on 06-05-2024 MCV (RBC) [Entitic vol] 84.6 fL 81-99 [facility] Magnesium measurement (mass/ volume)Ordered By: South Lopez on 06-05-2024 Magnesium (Unsp spec) [Mass/Vol] 1.9 mg/dL 1.5-2.2 [facility] Magnesium [Mass/Vol] 1.9 mg/dL Normal 1.5-2.2 [facility] Comment on above: Performed By: #### L 100.0100, L501.2300, L500.2500, L501.5200 ####[facility] [address] [place], [address] Mean corpuscular hemoglobin (MCH) determinationOrdered By: South Lopez on 06-05-2024 MCH (RBC) [Entitic mass] 27.2 pg 27.0-32.0 [facility] Mean corpuscular hemoglobin concentration (MCHC) determinationOrdered By: South Lopez on 06-05-2024 MCHC (RBC) [Mass/Vol] 32.2 g/dL 32-36 [facility] Mean platelet volume determi nationOrdered By: South Lopez on 06-05-2024 Platelet mean volume (Bld) [Entitic vol] 11.4 fL 6.2-12.0 [facility] Monocyte percentageOrdered B y: South Lopez on 06-05-2024 Monocytes/100 WBC (Bld) 9.4 % 0-10 [facility] Neutrophil percentageOrdered By: South Lopez on 06-05-2024 Neutrophils/100 WBC (Bld) 51.6 % 47-70 [facility] Nucleated red blood cell per centageOrdered By: South Lopez on 06-05-2024 Nucleated RBC/100 WBC (Bld) [Ratio] 0 % 0-5 [facility] Phosphoruson 06-05-2024 Phosphate [Mass/Vol] 3.4 mg/dL Normal 2.7-4.5 [facility] Comment on above: Performed By: #### L 100.0100, L501.2300, L500.2500, L501.5200 ####[facility] [address] [place], [address] Platelet countOrdered By: Tobias Lopez on 06-05-2024 Platelets (Bld) [#/Vol] 310 10*3/uL 150-450 [facility] Potassium measurement (mass/ volume)Ordered By: South Lopez on 06-05-2024 Potassium (Unsp spec) [Mass/Vol] 4.3 mmol/L 3.3-5.1 [facility] Potassium [Moles/Vol] 4.3 mmol/L Normal 3.3-5.1 [facility] Comment on above: Performed By: #### L 100.0100, L501.2300, L500.2500, L501.5200 ####[facility] [address] [place], [address] RBC Auto (Bld) [#/Vol]Ordere d By: South Lopez on 06-05-2024 RBC (Bld) [#/Vol] 3.45 10*6/uL Low 4.2-5.4 [facility] Serum creatinine measurement (mass/volume)Ordered By: South Lopez on 06-05-2024 Creatinine [Mass/Vol] 1.06 mg/dL Normal 0.70-1.20 [facility] Comment on above: Performed By: #### L 100.0100, L501.2300, L500.2500, L501.5200 ####[facility] [address] [place], [address] Serum glucose measurement (m ass/volume)Ordered By: South Lopez on 06-05-2024 Glucose [Mass/Vol] 152 mg/dL High 70-99 [facility] Comment on above: Performed By: #### L 100.0100, L501.2300, L500.2500, L501.5200 ####[facility] [address] [place], [address] Serum or plasma calcium sebastián urement (mass/volume)Ordered By: South Lopez on 06-05-2024 Calcium [Mass/Vol] 9.6 mg/dL Normal 7.6-11.0 [facility] Comment on above: Performed By: #### L 100.0100, L501.2300, L500.2500, L501.5200 ####[facility] [address] [place], [address] Serum or plasma urea nitroge n measurement (mass/volume)Ordered By: South Lopez on 06-05-2024 Urea nitrogen [Mass/Vol] 19 mg/dL Normal 4-19 [facility] Comment on above: Performed By: #### L 100.0100, L501.2300, L500.2500, L501.5200 ####[facility] [address] [place], [address] Serum phosphorus measurement Ordered By: South Lopez on 06-05-2024 Phosphorus Level 3.4 mg/dL 2.7-4.5 [facility] Sodium levelOrdered By: Oscar Lopez on 06-05-2024 Sodium [Moles/Vol] 140 mmol/L Normal 133-145 [facility] Comment on above: Performed By: #### L 100.0100, L501.2300, L500.2500, L501.5200 ####[facility] [address] [place], [address] Urine Cultureon 06-05-2024 [facility] Mixed Gram Positive Organisms [place] Count 11,000-25,000 MIX[facility] Mixed contaminants. Submit a new specimen if indicated. Normal [facility] Comment on above: Performed By: #### M 100.2200 ####[facility] [address] [place], [address] White blood cell (WBC) count Ordered By: South Lopez on 06-05-2024 WBC (Bld) [#/Vol] 6.3 10*3/uL 4.4-11.0 [facility] Anion gap [Moles/Vol]Ordered By: Cheryl Carroll on 06-04-2024 Anion gap in Serum or Plasma 12 5-15 [facility] BUN/creatinine ratioOrdered By: Cheryl Carroll on 06-04-2024 BUN/creatinine ratio 20.0 RATIO 10-20 [facility] Basic Metabolic Profile (BMP )on 06-04-2024 BUN/CRE 20.0 RATIO Normal 10-20 [facility] Comment on above: Performed By: #### L 500.2500, L100.0500 ####[facility] [address] [place], [address] Calcium [Mass/Vol] 9.4 mg/dL Normal 7.6-11.0 [facility] Comment on above: Performed By: #### L 500.2500, L100.0500 ####[facility] [address] [place], [address] Chloride [Moles/Vol] 105 mmol/L Normal 98-108 [facility] Comment on above: Performed By: #### L 500.2500, L100.0500 ####[facility] [address] [place], [address] CO2 [Moles/Vol] 20.0 mmol/L Low 21.0-32.0 [facility] Comment on above: Performed By: #### L 500.2500, L100.0500 ####[facility] [address] [place], [address] Creatinine [Mass/Vol] 0.92 mg/dL Normal 0.70-1.20 [facility] Comment on above: Performed By: #### L 500.2500, L100.0500 ####[facility] [address] [place], [address] ECRCL 56.88 ml/min Normal 50-250 [facility] Comment on above: Performed By: #### L 500.2500, L100.0500 ####[facility] [address] [place], [address] GAP 12 Normal 5-15 [facility] Comment on above: Performed By: #### L 500.2500, L100.0500 ####[facility] [address] [place], [address] GFR/1.73 sq M.predicted among non-blacks MDRD (S/P/Bld) [Vol rate/Area] 65 mL/min/{1.73_m2} Normal >60 [facility] Comment on above: Result Comment: mL/m in/1.73m2 CKD-EPI Creatinine Equation (2020) Performed By: #### L 500.2500, L100.0500 ####[facility] [address] [place], [address] Glucose [Mass/Vol] 165 mg/dL High 70-99 [facility] Comment on above: Performed By: #### L 500.2500, L100.0500 ####[facility] [address] [place], [address] Potassium [Moles/Vol] 4.3 mmol/L Normal 3.3-5.1 [facility] Comment on above: Performed By: #### L 500.2500, L100.0500 ####[facility] [address] [place], [address] Sodium [Moles/Vol] 137 mmol/L Normal 133-145 [facility] Comment on above: Performed By: #### L 500.2500, L100.0500 ####[facility] [address] [place], [address] Urea nitrogen [Mass/Vol] 18 mg/dL Normal 4-19 [facility] Comment on above: Performed By: #### L 500.2500, L100.0500 ####[facility] [address] [place], [address] Bedside Glucoseon 06-04-2024 FINGERSTICK GLU 160 mg/dL High 74-106 [facility] Comment on above: Result Comment: MUKUND GEMENT OF PATIENT CARE PER NURSING PROTOCOL Performed By: #### L 501.080 ####[facility] [address] [place], [address] FINGERSTICK GLU 199 mg/dL High 74-106 [facility] Comment on above: Result Comment: MUKUND GEMENT OF PATIENT CARE PER NURSING PROTOCOL Performed By: #### L 501.080 ####[facility] [address] [place], [address] FINGERSTICK GLU 171 mg/dL High 74-106 [facility] Comment on above: Result Comment: MUKUND GEMENT OF PATIENT CARE PER NURSING PROTOCOL Performed By: #### L 501.080 ####[facility] [address] [place], [address] FINGERSTICK GLU 155 mg/dL High 74-106 [facility] Comment on above: Result Comment: MUKUND GEMENT OF PATIENT CARE PER NURSING PROTOCOL Performed By: #### L 501.080 ####[facility] [address] [place], [address] FINGERSTICK GLU 152 mg/dL High 74-106 [facility] Comment on above: Result Comment: MUKUND DUNLAP OF PATIENT CARE PER NURSING PROTOCOL Performed By: #### L 501.080 ####[facility] [address] [place], [address] CBC-Complete Blood Cnt No Di ffon 06-04-2024 Erythrocyte distribution width (RBC) [Ratio] 13.9 % Normal 11.6-14.6 [facility] Comment on above: Performed By: #### L 500.2500, L100.0500 ####[facility] [address] [place], [address] Hematocrit (Bld) [Volume fraction] 28.7 % Low 37-47 [facility] Comment on above: Performed By: #### L 500.2500, L100.0500 ####[facility] [address] [place], [address] Hemoglobin (Bld) [Mass/Vol] 9.3 g/dL Low 12.0-15.0 [facility] Comment on above: Performed By: #### L 500.2500, L100.0500 ####[facility] [address] [place], [address] MCH (RBC) [Entitic mass] 27.2 pg Normal 27.0-32.0 [facility] Comment on above: Performed By: #### L 500.2500, L100.0500 ####[facility] [address] [place], [address] MCHC (RBC) [Mass/Vol] 32.4 g/dL Normal 32-36 [facility] Comment on above: Performed By: #### L 500.2500, L100.0500 ####[facility] [address] [place], [address] MCV (RBC) [Entitic vol] 83.9 fL Normal 81-99 [facility] Comment on above: Performed By: #### L 500.2500, L100.0500 ####[facility] [address] [place], [address] Platelet mean volume (Bld) [Entitic vol] 11.9 fL Normal 6.2-12.0 [facility] Comment on above: Performed By: #### L 500.2500, L100.0500 ####[facility] [address] [place], [address] Platelets (Bld) [#/Vol] 283 10*3/uL Normal 150-450 [facility] Comment on above: Performed By: #### L 500.2500, L100.0500 ####[facility] [address] [place], [address] RBC (Bld) [#/Vol] 3.42 10*6/uL Low 4.2-5.4 [facility] Comment on above: Performed By: #### L 500.2500, L100.0500 ####[facility] [address] [place], [address] RDW SD 42.5 fl Normal 35.1-43.9 [facility] Comment on above: Performed By: #### L 500.2500, L100.0500 ####[facility] [address] [place], [address] WBC (Bld) [#/Vol] 6.1 10*3/uL Normal 4.4-11.0 [facility] Comment on above: Performed By: #### L 500.2500, L100.0500 ####[facility] [address] [place], [address] Calcium [Mass/Vol]Ordered By : Cheryl Carroll on 06-04-2024 Serum or plasma calcium measurement (mass/volume) 9.4 mg/dL 7.6-11.0 [facility] Carbon dioxide, total [Moles /volume] in Central venous bloodOrdered By: Cheryl Carroll on 06-04-2024 Carbon dioxide, total [Moles/volume] in Central venous blood 20.0 mmol/L Low 21.0-32.0 [facility] Chloride assayOrdered By: Xavi Carroll on 06-04-2024 Chloride assay 105 mmol/L 98-108 [facility] Creatinine [Mass/Vol]Ordered By: Cheryl Carroll on 06-04-2024 Serum creatinine measurement (mass/volume) 0.92 mg/dL 0.70-1.20 [facility] Erythrocyte distribution wid th (RBC) [Entitic vol]Ordered By: Cheryl Carroll on 06-04-2024 Erythrocyte distribution width standard deviation 42.5 fl 35.1-43.9 [facility] Erythrocyte distribution wid th (RBC) [Ratio]Ordered By: Cheryl Carroll on 06-04-2024 Erythrocyte distribution width ratio 13.9 % 11.6-14.6 [facility] Estimation of creatinine stefani aranceOrdered By: Cheryl Carroll on 06-04-2024 Estimation of creatinine clearance 56.88 ml/min 50-250 [facility] GFR/1.73 sq M.predicted killian g non-blacks MDRD (S/P/Bld) [Vol rate/Area]Ordered By: Cheryl Carroll on 06-04-2024 Glomerular filtration rate (GFR) estimation/1.73 sq m using serum, plasma, or whole b 65 >60 [facility] Glucose [Mass/Vol]Ordered By : Cheryl Carroll on 06-04-2024 Serum glucose measurement (mass/volume) 165 mg/dL High 70-99 [facility] Glucose measurement at bedsi deOrdered By: South Lopez on 06-04-2024 Glucose measurement at bedside 199 mg/dL High 74-106 [facility] Hematocrit Auto (Bld) [Volum e fraction]Ordered By: Cheryl Carroll on 06-04-2024 Automated blood hematocrit (percentage) 28.7 % Low 37-47 [facility] Hemoglobin measurementOrdere d By: Cheryl Carroll on 06-04-2024 Hemoglobin measurement 9.3 g/dL Low 12.0-15.0 [facility] MCV (RBC) [Entitic vol]Order ed By: Cheryl Carroll on 06-04-2024 MCV (mean corpuscular volume) determination 83.9 fL 81-99 [facility] Mean corpuscular hemoglobin (MCH) determinationOrdered By: Cheryl Carroll on 06-04-2024 Mean corpuscular hemoglobin (MCH) determination 27.2 pg 27.0-32.0 [facility] Mean corpuscular hemoglobin concentration (MCHC) determinationOrdered By: Cheryl Carroll on 06-04-2024 Mean corpuscular hemoglobin concentration (MCHC) determination 32.4 g/dL 32-36 [facility] Mean platelet volume determi nationOrdered By: Cheryl Carroll on 06-04-2024 Mean platelet volume determination 11.9 fl 6.2-12.0 [facility] Platelet countOrdered By: Xavi Carroll on 06-04-2024 Platelet count 283 K/mm3 150-450 [facility] Potassium (Unsp spec) [Mass/ Vol]Ordered By: Cheryl Carroll on 06-04-2024 Potassium measurement (mass/volume) 4.3 mmol/L 3.3-5.1 [facility] RBC Auto (Bld) [#/Vol]Ordere d By: Cheryl Carroll on 06-04-2024 Automated blood erythrocyte count 3.42 M/mm3 Low 4.2-5.4 [facility] Sodium levelOrdered By: Giovana Carroll on 06-04-2024 Sodium level 137 mmol/L 133-145 [facility] Urea nitrogen [Mass/Vol]Orde red By: Cheryl Carroll on 06-04-2024 Serum or plasma urea nitrogen measurement (mass/volume) 18 mg/dL 4-19 [facility] White blood cell (WBC) count Ordered By: Cheryl Carroll on 06-04-2024 White blood cell (WBC) count 6.1 K/mm3 4.4-11.0 [facility] Absolute neutrophil countOrd ered By: Cheryl Carroll on 06-03-2024 Absolute neutrophil count 5.2 X10^3/uL 2.0-7.7 [facility] Basic Metabolic Profile (BMP )on 06-03-2024 BUN/CRE 18.3 RATIO Normal 10-20 [facility] Comment on above: Performed By: #### L 501.5200, L501.2300, L500.2500, L100.0100 ####[facility] [address] [place], [address] Calcium [Mass/Vol] 9.5 mg/dL Normal 7.6-11.0 [facility] Comment on above: Performed By: #### L 501.5200, L501.2300, L500.2500, L100.0100 ####[facility] [address] [place], [address] Chloride [Moles/Vol] 103 mmol/L Normal 98-108 [facility] Comment on above: Performed By: #### L 501.5200, L501.2300, L500.2500, L100.0100 ####[facility] [address] [place], [address] CO2 [Moles/Vol] 20.9 mmol/L Low 21.0-32.0 [facility] Comment on above: Performed By: #### L 501.5200, L501.2300, L500.2500, L100.0100 ####[facility] [address] [place], [address] Creatinine [Mass/Vol] 1.03 mg/dL Normal 0.70-1.20 [facility] Comment on above: Performed By: #### L 501.5200, L501.2300, L500.2500, L100.0100 ####[facility] [address] [place], [address] ECRCL 50.81 ml/min Normal 50-250 [facility] Comment on above: Performed By: #### L 501.5200, L501.2300, L500.2500, L100.0100 ####[facility] [address] [place], [address] GAP 11 Normal 5-15 [facility] Comment on above: Performed By: #### L 501.5200, L501.2300, L500.2500, L100.0100 ####[facility] [address] [place], [address] GFR/1.73 sq M.predicted among non-blacks MDRD (S/P/Bld) [Vol rate/Area] 56 mL/min/{1.73_m2} Low >60 [facility] Comment on above: Result Comment: mL/m in/1.73m2 CKD-EPI Creatinine Equation (2020) Performed By: #### L 501.5200, L501.2300, L500.2500, L100.0100 ####[facility] [address] [place], [address] Glucose [Mass/Vol] 145 mg/dL High 70-99 [facility] Comment on above: Performed By: #### L 501.5200, L501.2300, L500.2500, L100.0100 ####[facility] [address] [place], [address] Potassium [Moles/Vol] 4.0 mmol/L Normal 3.3-5.1 [facility] Comment on above: Performed By: #### L 501.5200, L501.2300, L500.2500, L100.0100 ####[facility] [address] [place], [address] Sodium [Moles/Vol] 135 mmol/L Normal 133-145 [facility] Comment on above: Performed By: #### L 501.5200, L501.2300, L500.2500, L100.0100 ####[facility] [address] [place], [address] Urea nitrogen [Mass/Vol] 19 mg/dL Normal 4-19 [facility] Comment on above: Performed By: #### L 501.5200, L501.2300, L500.2500, L100.0100 ####[facility] [address] [place], [address] Basophil percentageOrdered B y: Cheryl Carroll on 06-03-2024 Basophil percentage 0.6 % 0-1 [facility] Bedside Glucoseon 06-03-2024 FINGERSTICK GLU 164 mg/dL High 74-106 [facility] Comment on above: Result Comment: MUKUND GEMENT OF PATIENT CARE PER NURSING PROTOCOL Performed By: #### L 501.080 ####[facility] [address] [place], [address] FINGERSTICK GLU 223 mg/dL High 74-106 [facility] Comment on above: Result Comment: MUKUND GEMENT OF PATIENT CARE PER NURSING PROTOCOL Performed By: #### L 501.080 ####[facility] [address] [place], [address] FINGERSTICK GLU 151 mg/dL High 74-106 [facility] Comment on above: Result Comment: MUKUND GEMENT OF PATIENT CARE PER NURSING PROTOCOL Performed By: #### L 501.080 ####[facility] [address] [place], [address] CBC W/Diff, Automatedon 05-07 Absolute Lymph 1.73 X10 3/uL Normal 0.83-4.51 [facility] Comment on above: Performed By: #### L 501.5200, L501.2300, L500.2500, L100.0100 ####[facility] [address] [place], [address] Absolute Neut 5.2 X10 3/uL Normal 2.0-7.7 [facility] Comment on above: Performed By: #### L 501.5200, L501.2300, L500.2500, L100.0100 ####[facility] [address] [place], [address] Basophils/100 WBC (Bld) 0.6 % Normal 0-1 [facility] Comment on above: Performed By: #### L 501.5200, L501.2300, L500.2500, L100.0100 ####[facility] [address] [place], [address] Eosinophils/100 WBC (Bld) 1.3 % Normal 0-5 [facility] Comment on above: Performed By: #### L 501.5200, L501.2300, L500.2500, L100.0100 ####[facility] [address] [place], [address] Erythrocyte distribution width (RBC) [Ratio] 14.0 % Normal 11.6-14.6 [facility] Comment on above: Performed By: #### L 501.5200, L501.2300, L500.2500, L100.0100 ####[facility] [address] [place], [address] Hematocrit (Bld) [Volume fraction] 28.8 % Low 37-47 [facility] Comment on above: Performed By: #### L 501.5200, L501.2300, L500.2500, L100.0100 ####[facility] [address] [place], [address] Hemoglobin (Bld) [Mass/Vol] 9.3 g/dL Low 12.0-15.0 [facility] Comment on above: Performed By: #### L 501.5200, L501.2300, L500.2500, L100.0100 ####[facility] [address] [place], [address] IG% 0.500 Normal 0.0-0.9 [facility] Comment on above: Result Comment: IG% - Immature Granulocytes (promyelocytes, myelocytes andmetamyelocytes) > 1% indicates that a LEFT SHIFT is Present. Performed By: #### L 501.5200, L501.2300, L500.2500, L100.0100 ####[facility] [address] [place], [address] Lymphocytes/100 WBC (Bld) 21.7 % Normal 19-41 [facility] Comment on above: Performed By: #### L 501.5200, L501.2300, L500.2500, L100.0100 ####[facility] [address] [place], [address] MCH (RBC) [Entitic mass] 27.4 pg Normal 27.0-32.0 [facility] Comment on above: Performed By: #### L 501.5200, L501.2300, L500.2500, L100.0100 ####[facility] [address] [place], [address] MCHC (RBC) [Mass/Vol] 32.3 g/dL Normal 32-36 [facility] Comment on above: Performed By: #### L 501.5200, L501.2300, L500.2500, L100.0100 ####[facility] [address] [place], [address] MCV (RBC) [Entitic vol] 84.7 fL Normal 81-99 [facility] Comment on above: Performed By: #### L 501.5200, L501.2300, L500.2500, L100.0100 ####[facility] [address] [place], [address] Monocytes/100 WBC (Bld) 11.3 % High 0-10 [facility] Comment on above: Performed By: #### L 501.5200, L501.2300, L500.2500, L100.0100 ####[facility] [address] [place], [address] Neutrophils/100 WBC (Bld) 64.6 % Normal 47-70 [facility] Comment on above: Performed By: #### L 501.5200, L501.2300, L500.2500, L100.0100 ####[facility] [address] [place], [address] Nucleated RBC (Bld) [#/Vol] 0 10*3/uL Normal 0-5 [facility] Comment on above: Performed By: #### L 501.5200, L501.2300, L500.2500, L100.0100 ####[facility] [address] [place], [address] Platelet mean volume (Bld) [Entitic vol] 12.2 fL High 6.2-12.0 [facility] Comment on above: Performed By: #### L 501.5200, L501.2300, L500.2500, L100.0100 ####[facility] [address] [place], [address] Platelets (Bld) [#/Vol] 248 10*3/uL Normal 150-450 [facility] Comment on above: Performed By: #### L 501.5200, L501.2300, L500.2500, L100.0100 ####[facility] [address] [place], [address] RBC (Bld) [#/Vol] 3.40 10*6/uL Low 4.2-5.4 [facility] Comment on above: Performed By: #### L 501.5200, L501.2300, L500.2500, L100.0100 ####[facility] [address] [place], [address] RDW SD 43.5 fl Normal 35.1-43.9 [facility] Comment on above: Performed By: #### L 501.5200, L501.2300, L500.2500, L100.0100 ####[facility] [address] [place], [address] WBC (Bld) [#/Vol] 8.0 10*3/uL Normal 4.4-11.0 [facility] Comment on above: Performed By: #### L 501.5200, L501.2300, L500.2500, L100.0100 ####[facility] [address] [place], [address] Eosinophil percentageOrdered By: Cheryl Carroll on 06-03-2024 Eosinophil percentage 1.3 % 0-5 [facility] Hemoglobinon 06-03-2024 Hemoglobin (Bld) [Mass/Vol] 10.7 g/dL Low 12.0-15.0 [facility] Comment on above: Performed By: #### L 100.1300 ####[facility] [address] [place], [address] Immature granulocytes/100 WB C Auto (Bld)Ordered By: Cheryl Carroll on 06-03-2024 Automated immature granulocyte percentage 0.500 % 0.0-0.9 [facility] Lymphocytes Auto (Unsp spec) [#/Vol]Ordered By: Cheryl Carroll on 06-03-2024 Absolute lymphocyte count 1.73 X10^3/uL 0.83-4.51 [facility] Lymphocytes/100 WBC Auto (Un sp spec)Ordered By: Cheryl Carroll on 06-03-2024 Automated lymphocyte count as percentage of total leukocytes 21.7 % 19-41 [facility] Magnesiumon 06-03-2024 Magnesium [Mass/Vol] 1.8 mg/dL Normal 1.5-2.2 [facility] Comment on above: Performed By: #### L 501.5200, L501.2300, L500.2500, L100.0100 ####[facility] [address] [place], [address] Magnesium (Unsp spec) [Mass/ Vol]Ordered By: Cheryl Carroll on 06-03-2024 Magnesium measurement (mass/volume) 1.8 mg/dL 1.5-2.2 [facility] Monocyte percentageOrdered B y: Cheryl Carroll on 06-03-2024 Monocyte percentage 11.3 % High 0-10 [facility] Neutrophil percentageOrdered By: Cheryl Carroll on 06-03-2024 Neutrophil percentage 64.6 % 47-70 [facility] Nucleated red blood cell per centageOrdered By: Cheryl Carroll on 06-03-2024 Nucleated red blood cell percentage 0 % 0-5 [facility] Phosphoruson 06-03-2024 Phosphate [Mass/Vol] 3.6 mg/dL Normal 2.7-4.5 [facility] Comment on above: Performed By: #### L 501.5200, L501.2300, L500.2500, L100.0100 ####[facility] [address] [place], [place], [address] Serum phosphorus measurement Ordered By: Cheryl Carroll on 06-03-2024 Serum phosphorus measurement 3.6 mg/dL 2.7-4.5 [facility] Urine cultureOrdered By: Caitlin Carroll on 06-03-2024 Bacteria identified Cx Nom (U) Positive Abnormal [facility] 12 Lead EKGon 06-02-2024 12 Lead EKG Normal [facility] ALP [Catalytic activity/Vol] Ordered By: Ian Brambila on 06-02-2024 Serum or plasma alkaline phosphatase measurement 78 U/L 35-104 [facility] ALT [Catalytic activity/Vol] Ordered By: Ian Brambila on 06-02-2024 Serum or plasma alanine aminotransferase (ALT) measurement 15 U/L <35 [facility] Abdomen/Pelvis W IV Cont ONL Yon 06-02-2024 Abdomen/Pelvis W IV Cont ONLY Normal [facility] Absolute neutrophil countOrd ered By: Ian Brambila on 06-02-2024 Neutrophils (Bld) [#/Vol] 9.8 10*3/uL High 2.0-7.7 [facility] Activated partial thrombopla stin time (aPTT) in platelet poor plasma by coagulation aOrdered By: Ian Brambila on 06-02-2024 aPTT Coag (PPP) [Time] 51.1 s High 24.1-36.2 [facility] Albumin [Mass/Vol]Ordered By : Ian Brambila on 06-02-2024 Serum or plasma albumin measurement (mass/volume) 3.6 g/dL 3.4-4.8 [facility] Anion gap in Serum or Plasma Ordered By: Ian Brambila on 06-02-2024 Anion gap [Moles/Vol] 12 mmol/L 07-19 [facility] BUN/creatinine ratioOrdered By: Ian Brambila on 06-02-2024 Urea nitrogen/Creatinine [Mass ratio] 15.2 mg/mg 12-24 [facility] Basic Metabolic Profile (BMP )on 06-02-2024 BUN/CRE 15.2 RATIO Normal 12-24 [facility] Comment on above: Performed By: #### L 500.3400, L300.4310, L100.0100, L500.2500, L300.3900 ####[facility] [address] [place], [address] Calcium [Mass/Vol] 9.7 mg/dL Normal 7.6-11.0 [facility] Comment on above: Performed By: #### L 500.3400, L300.4310, L100.0100, L500.2500, L300.3900 ####[facility] [address] [place], [address] Chloride [Moles/Vol] 98 mmol/L Normal 98-108 [facility] Comment on above: Performed By: #### L 500.3400, L300.4310, L100.0100, L500.2500, L300.3900 ####[facility] [address] [place], [address] CO2 [Moles/Vol] 21.1 mmol/L Normal 21.0-32.0 [facility] Comment on above: Performed By: #### L 500.3400, L300.4310, L100.0100, L500.2500, L300.3900 ####[facility] [address] [place], [address] Creatinine [Mass/Vol] 1.00 mg/dL Normal 0.70-1.20 [facility] Comment on above: Performed By: #### L 500.3400, L300.4310, L100.0100, L500.2500, L300.3900 ####[facility] [address] [place], [address] ECRCL 52.57 ml/min Normal 50-250 [facility] Comment on above: Performed By: #### L 500.3400, L300.4310, L100.0100, L500.2500, L300.3900 ####[facility] [address] [place], [address] GAP 12 Normal 5-15 [facility] Comment on above: Performed By: #### L 500.3400, L300.4310, L100.0100, L500.2500, L300.3900 ####[facility] [address] [place], [address] GFR/1.73 sq M.predicted among non-blacks MDRD (S/P/Bld) [Vol rate/Area] 58 mL/min/{1.73_m2} Low >60 [facility] Comment on above: Result Comment: mL/m in/1.73m2 CKD-EPI Creatinine Equation (2020) Performed By: #### L 500.3400, L300.4310, L100.0100, L500.2500, L300.3900 ####[facility] [address] [place], [address] Glucose [Mass/Vol] 190 mg/dL High 70-99 [facility] Comment on above: Performed By: #### L 500.3400, L300.4310, L100.0100, L500.2500, L300.3900 ####[facility] [address] [place], [address] Potassium [Moles/Vol] 4.4 mmol/L Normal 3.3-5.1 [facility] Comment on above: Performed By: #### L 500.3400, L300.4310, L100.0100, L500.2500, L300.3900 ####[facility] [address] [place], [address] Sodium [Moles/Vol] 131 mmol/L Low 133-145 [facility] Comment on above: Performed By: #### L 500.3400, L300.4310, L100.0100, L500.2500, L300.3900 ####[facility] [address] [place], [address] Urea nitrogen [Mass/Vol] 15 mg/dL Normal 4-19 [facility] Comment on above: Performed By: #### L 500.3400, L300.4310, L100.0100, L500.2500, L300.3900 ####[facility] [address] [place], [address] Basophil percentageOrdered B y: Ian Brambila on 06-02-2024 Basophils/100 WBC (Bld) 0.4 % 0-1 [facility] Bedside Glucoseon 06-02-2024 FINGERSTICK GLU 203 mg/dL High 74-106 [facility] Comment on above: Result Comment: MUKUND GEMENT OF PATIENT CARE PER NURSING PROTOCOL Performed By: #### L 501.080 ####[facility] [address] [place], [address] FINGERSTICK GLU 170 mg/dL High 74-106 [facility] Comment on above: Result Comment: MUKUND GEMENT OF PATIENT CARE PER NURSING PROTOCOL Performed By: #### L 501.080 ####[facility] [address] [place], [address] FINGERSTICK GLU 276 mg/dL High 74-106 [facility] Comment on above: Result Comment: MUKUND GEMENT OF PATIENT CARE PER NURSING PROTOCOL Performed By: #### L 501.080 ####[facility] [address] [place], [address] Bilirubin Test strip Ql (U)O rdered By: Ian Brambila on 06-02-2024 Bilirubin Ql (U) Negative Negative [facility] Bilirubin directOrdered By: Ian Brambila on 06-02-2024 Bilirubin.direct [Mass/Vol] 0.56 mg/dL High 0.00-0.30 [facility] Bilirubin, totalOrdered By: Ian Brambila on 06-02-2024 Bilirubin [Mass/Vol] 1.18 mg/dL 0.00-1.30 [facility] Bilirubin, total 1.18 mg/dL 0.00-1.30 [facility] Bilirubin.direct [Mass/Vol]O rdered By: Ian Brambila on 06-02-2024 Bilirubin direct 0.56 mg/dL High 0.00-0.30 [facility] Blood manual differential co mment interpretation (narrative result)Ordered By: Ian Brambila on 06-02-2024 Manual differential comment Dominic (Bld) [Interp] SCANNED [facility] Brain/Head without Contrasto n 06-02-2024 Brain/Head without Contrast Normal [facility] Carbon dioxide, total [Moles /volume] in Central venous bloodOrdered By: Ian Brambila on 06-02-2024 CO2 [Moles/Vol] 21.1 mmol/L 21.0-32.0 [facility] Chest without Contraston Chest without Contrast Normal [facility] Chloride assayOrdered By: Jadon Brambila on 06-02-2024 Chloride [Moles/Vol] 98 mmol/L 98-108 [facility] Clarity (U)Ordered By: Ian Brambila on 06-02-2024 Urine clarity Clear Clear [facility] Color (U)Ordered By: Ian nicholas on 06-02-2024 Urine color determination Yellow Yellow [facility] Emergency Department Summary on 06-02-2024 Emergency Department Summary Normal [facility] Eosinophil percentageOrdered By: Ian Brambila on 06-02-2024 Eosinophils/100 WBC (Bld) 0.2 % 0-5 [facility] Epithelial cells.squamous LM Ql (Urine sed)Ordered By: Ian Brambila on 06-02-2024 Epithelial cells.squamous LM.HPF (Urine sed) [#/Area] 0 /[HPF] 5-10 [facility] Erythrocyte distribution wid th ratioOrdered By: Ian Brambila on 06-02-2024 Erythrocyte distribution width (RBC) [Ratio] 13.7 % 11.6-14.6 [facility] Erythrocyte distribution wid th standard deviationOrdered By: Ian Brambila on 06-02-2024 Erythrocyte distribution width (RBC) [Entitic vol] 42.4 fL 35.1-43.9 [facility] Estimation of creatinine stefani aranceOrdered By: Ian Brambila on 06-02-2024 Estimated Creatinine Clearance Calc 52.57 ml/min 50-250 [facility] GFR/1.73 sq M.predicted killian g non-blacks MDRD (S/P/Bld) [Vol rate/Area]Ordered By: Ian Brambila on 06-02-2024 Estimated GFR (MDRD) Non-Af Amer 58 Low >60 [facility] Comment on above: mL/min/1.73m2 CKD-EP I Creatinine Equation (2020) Glucose Ql (U)Ordered By: Jadon Brambila on 06-02-2024 Glucose (U) [Mass/Vol] 100 mg/dL High Normal [facility] Urine glucose detection 100 mg/dl High Normal [facility] H AND P Exam - Hospitaliston 06-02-2024 H&P Exam - Hospitalist Normal [facility] Hematocrit Auto (Bld) [Volum e fraction]Ordered By: Ian Brambila on 06-02-2024 Hematocrit (Bld) [Volume fraction] 33.2 % Low 37-47 [facility] Hemoglobin measurementOrdere d By: Ian Brambila on 06-02-2024 Hemoglobin (Bld) [Mass/Vol] 10.9 g/dL Low 12.0-15.0 [facility] Immature granulocytes/100 WB C Auto (Bld)Ordered By: Ian Brambila on 06-02-2024 Immature granulocytes/100 WBC (Bld) 0.400 % 0.0-0.9 [facility] Comment on above: IG% - Immature Granu locytes (promyelocytes, myelocytes and metamyelocytes) > 1% indicates that a LEFT SHIFT is Present. International normalized rat io (INR) calculationOrdered By: Ian Brambila on 06-02-2024 INR Coag (Bld) [Relative time] 2.3 {INR} [facility] International normalized ratio (INR) calculation 2.3 [facility] Ketones Test strip Ql (U)Ord ered By: Ian Brambila on 06-02-2024 Ketones Ql (U) Negative Negative [facility] L499.0042on 06-02-2024 Trop T High Sen 22 ng/L High <=14 [facility] Comment on above: Performed By: #### L 499.0042 ####[facility] [address] [place], [address] L499.0043on 06-02-2024 Trop T High Sen 23 ng/L High <=14 [facility] Comment on above: Performed By: #### L 499.0043 ####[facility] [address] [place], [address] L501.4021on 06-02-2024 Trop T High Sen 21 ng/L High <=14 [facility] Comment on above: Performed By: #### L 501.4021 ####[facility] [address] [place], [address] Laboratory - Chemistry and C hemistry - challengeOrdered By: Ian Brambila on 06-02-2024 AST [Catalytic activity/Vol] 27 U/L <32 [facility] Liver Profileon 06-02-2024 Albumin [Mass/Vol] 3.6 g/dL Normal 3.4-4.8 [facility] Comment on above: Performed By: #### L 500.3400, L300.4310, L100.0100, L500.2500, L300.3900 ####[facility] [address] [place], [address] ALK PHOS 78 U/L Normal 35-104 [facility] Comment on above: Performed By: #### L 500.3400, L300.4310, L100.0100, L500.2500, L300.3900 ####[facility] [address] [place], [address] ALT [Catalytic activity/Vol] 15 U/L Normal <=34 [facility] Comment on above: Performed By: #### L 500.3400, L300.4310, L100.0100, L500.2500, L300.3900 ####[facility] [address] [place], [address] AST [Catalytic activity/Vol] 27 U/L Normal <=31 [facility] Comment on above: Performed By: #### L 500.3400, L300.4310, L100.0100, L500.2500, L300.3900 ####[facility] [address] [place], [address] Bilirubin [Mass/Vol] 1.18 mg/dL Normal 0.00-1.30 [facility] Comment on above: Performed By: #### L 500.3400, L300.4310, L100.0100, L500.2500, L300.3900 ####[facility] [address] [place], [address] Bilirubin.direct [Mass/Vol] 0.56 mg/dL High 0.00-0.30 [facility] Comment on above: Performed By: #### L 500.3400, L300.4310, L100.0100, L500.2500, L300.3900 ####[facility] [address] [place], [address] Globulin (S) [Mass/Vol] 4.1 g/dL Normal 2.2-4.2 [facility] Comment on above: Performed By: #### L 500.3400, L300.4310, L100.0100, L500.2500, L300.3900 ####[facility] [address] [place], [address] T PROT 7.7 g/dL Normal 5.9-8.4 [facility] Comment on above: Performed By: #### L 500.3400, L300.4310, L100.0100, L500.2500, L300.3900 ####[facility] [address] [place], [address] Lymphocytes Auto (Unsp spec) [#/Vol]Ordered By: Ian Brambila on 06-02-2024 Lymphocytes (Bld) [#/Vol] 1.61 10*3/uL 0.83-4.51 [facility] Lymphocytes/100 WBC Auto (Un sp spec)Ordered By: Ian Brambila on 06-02-2024 Lymphocytes/100 WBC (Bld) 12.2 % Low 19-41 [facility] MCV (mean corpuscular volume ) determinationOrdered By: Ian Brambila on 06-02-2024 MCV (RBC) [Entitic vol] 83.8 fL 81-99 [facility] Manual differential comment Dominic (Bld) [Interp]Ordered By: Ian Brambila on 06-02-2024 Differential Comment SCANNED [facility] Comment on above: MONOCYTOSIS PRESENT Blood manual differential comment interpretation (narrative result) SCANNED [facility] Mean corpuscular hemoglobin (MCH) determinationOrdered By: Ian Brambila on 06-02-2024 MCH (RBC) [Entitic mass] 27.5 pg 27.0-32.0 [facility] Mean corpuscular hemoglobin concentration (MCHC) determinationOrdered By: Ian Brambila on 06-02-2024 MCHC (RBC) [Mass/Vol] 32.8 g/dL 32-36 [facility] Mean platelet volume determi nationOrdered By: Ian Brambila on 06-02-2024 Platelet mean volume (Bld) [Entitic vol] 11.7 fL 6.2-12.0 [facility] Microscopic analysis of urin e for red blood cells (RBC)Ordered By: Ian Brambila on 06-02-2024 Urine RBC 0 SEEN /hpf 0-5 [facility] Monocyte percentageOrdered B y: Ian Brambila on 06-02-2024 Monocytes/100 WBC (Bld) 12.5 % High 0-10 [facility] Mucus LM Ql (Urine sed)Order ed By: Ian Brambila on 06-02-2024 Mucus Ql (Urine sed) 0 SEEN /hpf [facility] Neutrophil percentageOrdered By: Ian Brambila on 06-02-2024 Neutrophils/100 WBC (Bld) 74.3 % High 47-70 [facility] Nitrite Test strip Ql (U)Ord ered By: Ian Brambila on 06-02-2024 Nitrite Ql (U) Negative Negative [facility] No Panel InformationOrdered By: Ian Brambila on 06-02-2024 Troponin T High Sensitivity 21 ng/L High <14 [facility] Comment on above: Delta: 19 on 5-1122 21 ng/L High <14 [facility] 27 U/L <32 [facility] Nucleated red blood cell per centageOrdered By: Ian Brambila on 06-02-2024 Nucleated RBC/100 WBC (Bld) [Ratio] 0 % 0-5 [facility] Partial Thromboplast Timeon 06-02-2024 aPTT Coag (Bld) [Time] 51.1 s High 24.1-36.2 [facility] Comment on above: Performed By: #### L 500.3400, L300.4310, L100.0100, L500.2500, L300.3900 ####[facility] [address] [place], [place], [id number] Pathologist review Dominic (Unsp spec) [Interp]Ordered By: Ian Brambila on 06-02-2024 Differential Pathologist's Review July [facility] Review by pathologist July [facility] Platelet countOrdered By: Jadon Brambila on 06-02-2024 Platelets (Bld) [#/Vol] 277 10*3/uL 150-450 [facility] Potassium (Unsp spec) [Mass/ Vol]Ordered By: Ian Brambila on 06-02-2024 Potassium [Moles/Vol] 4.4 mmol/L 3.3-5.1 [facility] Protein Test strip Ql (U)Ord ered By: Ian Brambila on 06-02-2024 Protein Ql (U) 15 mg/dl High Negative [facility] Urine protein assay by test strip, semi-quantitative 15 mg/dl High Negative [facility] Prothrombin Time w/INRon INR Coag (PPP) [Relative time] 2.3 {INR} Normal [facility] Comment on above: Performed By: #### L 500.3400, L300.4310, L100.0100, L500.2500, L300.3900 ####[facility] [address] [place], [place], [id number] PT Coag (PPP) [Time] 25.5 s High 11.7-14.9 [facility] Comment on above: Performed By: #### L 500.3400, L300.4310, L100.0100, L500.2500, L300.3900 ####[facility] [address] [place], [place], [id number] Prothrombin timeOrdered By: Ian Brambila on 06-02-2024 PT Coag (PPP) [Time] 25.5 s High 11.7-14.9 [facility] Prothrombin time 25.5 SECONDS High 11.7-14.9 [facility] RBC Auto (Bld) [#/Vol]Ordere d By: Ian Brambila on 06-02-2024 RBC (Bld) [#/Vol] 3.96 10*6/uL Low 4.2-5.4 [facility] Review by pathologistOrdered By: Ian Brambila on 06-02-2024 Pathologist review Dominic (Unsp spec) [Interp] Reviewed [facility] Serum creatinine measurement (mass/volume)Ordered By: Ian Brambila on 06-02-2024 Creatinine [Mass/Vol] 1.00 mg/dL 0.70-1.20 [facility] Serum globulin measurementOr dered By: Ian Brambila on 06-02-2024 Globulin (S) [Mass/Vol] 4.1 g/dL 2.2-4.2 [facility] Serum globulin measurement 4.1 g/dL 2.2-4.2 [facility] Serum glucose measurement (m ass/volume)Ordered By: Ian Brambila on 06-02-2024 Glucose [Mass/Vol] 190 mg/dL High 70-99 [facility] Serum or plasma alanine marcum otransferase (ALT) measurementOrdered By: Ian Brambila on 06-02-2024 ALT [Catalytic activity/Vol] 15 U/L <35 [facility] Serum or plasma albumin sebastián urement (mass/volume)Ordered By: Ian Brambila on 06-02-2024 Albumin [Mass/Vol] 3.6 g/dL 3.4-4.8 [facility] Serum or plasma alkaline mahamed sphatase measurementOrdered By: Ian Brambila on 06-02-2024 ALP [Catalytic activity/Vol] 78 U/L 35-104 [facility] Serum or plasma calcium sebastián urement (mass/volume)Ordered By: Ian Brambila on 06-02-2024 Calcium [Mass/Vol] 9.7 mg/dL 7.6-11.0 [facility] Serum or plasma urea nitroge n measurement (mass/volume)Ordered By: Ian Brambila on 06-02-2024 Urea nitrogen [Mass/Vol] 15 mg/dL 4-19 [facility] Sodium levelOrdered By: Tai Brambila on 06-02-2024 Sodium [Moles/Vol] 131 mmol/L Low 133-145 [facility] Specific gravity (U) [Rel de nsity]Ordered By: Ian Brambila on 06-02-2024 Urine specific gravity measurement 1.020 1.002-1.030 [facility] Spine Cervical without Contr ason 06-02-2024 Spine Cervical without Contras Normal [facility] Squamous epithelial cells de tection in urine sediment by light microscopyOrdered By: Ian Brambila on 06-02-2024 Epithelial cells.squamous LM Ql (Urine sed) 0 SEEN /hpf 5-10 [facility] Total proteinOrdered By: Bonnie Brambila on 06-02-2024 Protein [Mass/Vol] 7.7 g/dL 5.9-8.4 [facility] Total protein 7.7 g/dL 5.9-8.4 [facility] Troponin T.cardiac High sens itivity method [Mass/Vol]Ordered By: Ian Brambila on 06-02-2024 Troponin T High Sensitivity 4 Hour 23 ng/L High <14 [facility] Troponin T.cardiac [Mass/volume] in Serum or Plasma by High sensitivity method 23 ng/L High <14 [facility] Troponin T High Sensitivity 2 Hour 22 ng/L High <14 [facility] Troponin T.cardiac [Mass/volume] in Serum or Plasma by High sensitivity method 22 ng/L High <14 [facility] Troponin T.cardiac [Mass/vol ume] in Serum or Plasma by High sensitivity methodOrdered By: Ian Brambila on 06-02-2024 Troponin T.cardiac High sensitivity method [Mass/Vol] 23 ng/L High <14 [facility] Troponin T.cardiac High sensitivity method [Mass/Vol] 22 ng/L High <14 [facility] Urinalysis, Completeon 06-02 RBC 0 SEEN Normal 0-5 [facility] Comment on above: Order Comment: CLEAN CATCH Performed By: #### L 400.0001 ####[facility] [address] [place], [address] BACTERIA 0 SEEN Normal None Seen [facility] Comment on above: Order Comment: CLEAN CATCH Performed By: #### L 400.0001 ####[facility] [address] [place], [address] EPI,SQUAMOUS 0 SEEN Normal 5-10 [facility] Comment on above: Order Comment: CLEAN CATCH Performed By: #### L 400.0001 ####[facility] [address] [place], [address] Mucus Ql (Urine sed) 0 SEEN Normal [facility] Comment on above: Order Comment: CLEAN CATCH Performed By: #### L 400.0001 ####[facility] [address] [place], [address] WBC 0 SEEN Normal 0-5 [facility] Comment on above: Order Comment: CLEAN CATCH Performed By: #### L 400.0001 ####[facility] [address] [place], [address] Urine blood detectionOrdered By: Ian Brambila on 06-02-2024 Urine Occult Blood Negative Negative [facility] Urine clarityOrdered By: Bonnie Brambila on 06-02-2024 Clarity (U) Clear Clear [facility] Urine color determinationOrd ered By: Ian Brambila on 06-02-2024 Color (U) Yellow Yellow [facility] Urine glucose detectionOrder ed By: Ian Brambila on 06-02-2024 Glucose Ql (U) 100 mg/dl High Normal [facility] Urine leukocyte esterase det ection by dipstickOrdered By: Ian Brambila on 06-02-2024 Leukocyte esterase Test strip Ql (U) Negative Negative [facility] Urine pHOrdered By: Ian de on 06-02-2024 pH (U) 6.0 [pH] 5.0 - 8.0 [facility] Urine sediment bacteria coun t by microscopy (number/high power field)Ordered By: Ian Brambila on 06-02-2024 Bacteria LM.HPF (Urine sed) [#/Area] 0 /[HPF] None Seen [facility] Urine specific gravity measu rementOrdered By: Ian Brambila on 06-02-2024 Specific gravity (U) [Rel density] 1.020 1.002-1.030 [facility] Urine total bilirubin detect ion by test stripOrdered By: Ian Brambila on 06-02-2024 Urine total bilirubin detection by test strip Negative Negative [facility] Urine urobilinogen measureme ntOrdered By: Ian Brambila on 06-02-2024 Urobilinogen Ql (U) Normal mg/dl Normal [facility] Urobilinogen Ql (U)Ordered B y: Ian Brambila on 06-02-2024 Urine Urobilinogen Normal mg/dl Normal [facility] Urine urobilinogen measurement Normal mg/dl Normal [facility] White blood cell (WBC) count Ordered By: Ian Brambila on 06-02-2024 WBC (Bld) [#/Vol] 13.2 10*3/uL High 4.4-11.0 [facility] White blood cell countOrdere d By: Ian Brambila on 06-02-2024 Urine WBC 0 SEEN /hpf 0-5 [facility] White blood cell count 0 SEEN /hpf 0-5 [facility] White blood cell count 0 SEEN /hpf [facility] aPTT Coag (PPP) [Time]Ordere d By: Ian Brambila on 06-02-2024 aPTT Coag (Bld) [Time] 51.1 s High 24.1-36.2 [facility] Activated partial thromboplastin time (aPTT) in platelet poor plasma by coagulation a 51.1 Seconds High 24.1-36.2 [facility] pH (U)Ordered By: Ian gunter on 06-02-2024 Urine pH 6.0 5.0 - 8.0 [facility] CNPNon 06-01-2024 CNPN Telephone (4CQ) -------- LAISHA WALKER ([id number]) 1950 F Date Time Provider Department 06/01/24 FLAKO TRACY 4CQ During your visit today, we recorded the following information about you: Chasity Isaacs 06/01/2024 9:53 AM Signed Called patient to offer a sooner appointment she did take Tuesday06/04/24 but requesting additional pain medication Tramadol 1 tablet every 6 hrs be sent to [facility] in [place], patient also states she has been to the [facility] ER 3 times in the last 2 weeks. Flako Tracy MD 06/04/2024 12:18 PM Signed Has appt today 06/04 Flako Tracy MD Allergies As of Date: 06/01/2024 Noted Allergy Reaction GABAPENTIN 11/03/2021 14 - Other: See Comments Comments: Dizziness ACCUPRIL (QUINAPRIL HCL) 07/05/2005 14 - Other: See Comments BEXTRA (VALDECOXIB) 07/05/2005 8 - GI Upset CELEBREX (CELECOXIB) 07/05/2005 8 - GI Upset Comments: CODEINE 07/05/2005 14 - Other: See Comments ENTEX LA (PHENYLEPHRINE-GUAIFENES *07/05/2005 14 - Other: See Comments GLUCOPHAGE (METFORMIN HCL) 07/05/2005 14 - Other: See Comments LIPITOR (ATORVASTATIN CALCIUM) 07/05/2005 14 - Other: See Comments LODINE (ETODOLAC) 07/05/2005 8 - GI Upset NAPROSYN (NAPROXEN) 07/05/2005 14 - Other: See Comments NSAIDS (NON-STEROIDAL ANTI-INFLAM*12/06/2019 14 - Other: See Comments PRAVACHOL (PRAVASTATIN SODIUM) 07/05/2005 14 - Other: See Comments Comments: Worsening abdominal pain SULFA (SULFONAMIDE ANTIBIOTICS) 07/08/2014 8 - GI Upset ULTRACET (TRAMADOL-ACETAMINOPHEN) 07/05/2005 14 - Other: See Comments VICODIN (HYDROCODONE-ACETAMINOPH E*07/05/2005 14 - Other: See Comments VIOXX (ROFECOXIB) 07/05/2005 14 - Other: See Comments ZOCOR (SIMVASTATIN) 07/05/2005 14 - Other: See Comments Date Reviewed: 05/22/2024 Reviewed by: Areli Stanton LPN - Fully Assessed Reason for Visit: Patient Update [1234] Prescriptions as of 06/04/2024 - sucralfate (CARAFATE) 1 gram tablet Take 1 g by mouth three times a day before meals. - pantoprazole DR (PROTONIX) 40 mg tablet Take 1 tablet by mouth every 12 hours. - blood sugar diagnostic (BLOOD GLUCOSE TEST) test strip Test blood sugar(s) 1` times daily. Dx: Type 2 DM - Uncontrolled E11.65 Insulin: No - glipiZIDE (GLUCOTROL XL) 10mg 24 hr tablet Take 1 tablet by mouth two times a day. - metoprolol tartrate, short acting, (LOPRESSOR) 50 mg tablet Take 50 mg by mouth two times a day. - rosuvastatin (CRESTOR) 10 mg tablet Take 20 mg by mouth once daily. - losartan (COZAAR) 25 mg tablet Take 0.5 tablets by mouth every afternoon. - warfarin (COUMADIN) 5 mg tablet 2.5 mg //Tuesday, 5 mg all other days or as directed - docusate sodium (STOOL SOFTENER ORAL) Take by mouth as needed. OTC - Lancets lancets Test blood sugar(s) 1` times daily. Dx: Type 2 DM - Uncontrolled E11.65 Insulin: No - hydrocortisone (ANUSOL-HC) 2.5 % rectal cream by RECTAL route twice daily. - multivitamin (MULTIPLE VITAMINS ORAL) Take by mouth. - alcohol swabs (ALCOHOL PREP PADS) Apply 1 application to affected area once daily. - loratadine (CLARITIN) 10 mg tablet Take 10 mg by mouth once daily. - acetaminophen (TYLENOL) 325 mg tablet Take 500 mg by mouth. 2 TABLETS AT HS Problem List As Of Date 06/01/2024 Noted Resolved LUMBAGO [M54.50] 07/06/2005 ENTHESOPATHY OF HIP [M76.899] 07/06/2005 SPRAIN LUMBAR REGION [S33.5XXA] 07/06/2005 Dyslipidemia associated with type 2 diabetes me* Paroxysmal atrial fibrillation (HCC) [I48.0] 01/15/2023 Carotid stenosis, asymptomatic [I65.29] Right renal mass [N28.89] 05/18/2019 Obesity, Class II, BMI 35-39.9 [E66.812] 05/19/2019 Renal carcinoma, right (HCC) [C64.1] 05/20/2019 01/21/2023 Other cirrhosis of liver (HCC) [K74.69] 05/23/2020 Stage 3a chronic kidney disease (HCC) [N18.31] 08/10/2022 Obesity, Class I, BMI 30-34.9 [E66.811] 11/19/2022 01/22/2023 Anticoagulant long-term use [Z79.01] 11/24/2022 Third degree atrioventricular block (HCC) [I44.*01/22/2023 Bradycardia [R00.1] 01/22/2023 At risk for stroke [Z91.89] 01/22/2023 Bilateral carotid artery stenosis [I65.23] 10/10/2016 Diagnosed: 01/22/2023 Gastroesophageal reflux disease [K21.9] 01/22/2023 Diagnosed: 01/22/2023 Hyperlipidemia [E78.5] 01/22/2023 Diagnosed: 01/22/2023 Recurrent falls [R29.6] 01/22/2023 Diagnosed: 01/22/2023 Orthostatic hypotension [I95.1] 01/17/2023 Diagnosed: 01/22/2023 Holley-Mary syncope [I45.9] 01/22/2023 Diabetes mellitus type 2 in obese (HCC) [E11.6*01/22/2023 S/P placement of cardiac pacemaker [Z95.0] 01/25/2023 Encounter Status:Closed by FLAKO TRACY on 06/04/24 Normal [facility] 12 Lead EKGon 05-30-2024 12 Lead EKG Normal [facility] Absolute lymphocyte countOrd ered By: Timothy James on 05-30-2024 Lymphocytes Auto (Unsp spec) [#/Vol] 1.81 10*3/uL 0.83-4.51 [facility] Absolute neutrophil countOrd ered By: Timothy James on 05-30-2024 Neutrophils (Bld) [#/Vol] 7.6 10*3/uL 2.0-7.7 [facility] Absolute neutrophil count 7.6 X10^3/uL 2.0-7.7 [facility] Anion gap [Moles/Vol]Ordered By: Timothy James on 05-30-2024 Anion gap in Serum or Plasma 12 5- [facility] Anion gap in Serum or Plasma Ordered By: Timothy James on 05-30-2024 Anion gap [Moles/Vol] 12 mmol/L - [facility] Automated lymphocyte count a s percentage of total leukocytesOrdered By: Timothy James on 05-30-2024 Lymphocytes/100 WBC Auto (Unsp spec) 17.4 % Low - [facility] BUN/creatinine ratioOrdered By: Timothy James on 05-30-2024 Urea nitrogen/Creatinine [Mass ratio] 16.3 mg/mg - [facility] BUN/creatinine ratio 16.3 RATIO - [facility] Basic Metabolic Profile (BMP )on 05-30-2024 BUN/CRE 16.3 RATIO Normal 10-20 [facility] Comment on above: Performed By: #### L 100.0100, L501.5200, L500.2500, L300.3900 ####[facility] [address] [place], [address] Calcium [Mass/Vol] 9.7 mg/dL Normal 7.6-11.0 [facility] Comment on above: Performed By: #### L 100.0100, L501.5200, L500.2500, L300.3900 ####[facility] [address] [place], [address] Chloride [Moles/Vol] 104 mmol/L Normal 98-108 [facility] Comment on above: Performed By: #### L 100.0100, L501.5200, L500.2500, L300.3900 ####[facility] [address] [place], [address] CO2 [Moles/Vol] 22.4 mmol/L Normal 21.0-32.0 [facility] Comment on above: Performed By: #### L 100.0100, L501.5200, L500.2500, L300.3900 ####[facility] [address] [place], [address] Creatinine [Mass/Vol] 0.98 mg/dL Normal 0.70-1.20 [facility] Comment on above: Performed By: #### L 100.0100, L501.5200, L500.2500, L300.3900 ####[facility] [address] [place], [address] ECRCL 53.89 ml/min Normal 50-250 [facility] Comment on above: Performed By: #### L 100.0100, L501.5200, L500.2500, L300.3900 ####[facility] [address] [place], [address] GAP 12 Normal 5-15 [facility] Comment on above: Performed By: #### L 100.0100, L501.5200, L500.2500, L300.3900 ####[facility] [address] [place], [address] GFR/1.73 sq M.predicted among non-blacks MDRD (S/P/Bld) [Vol rate/Area] 60 mL/min/{1.73_m2} Normal >60 [facility] Comment on above: Result Comment: mL/m in/1.73m2 CKD-EPI Creatinine Equation (2020) Performed By: #### L 100.0100, L501.5200, L500.2500, L300.3900 ####[facility] [address] [place], [address] Glucose [Mass/Vol] 164 mg/dL High 70-99 [facility] Comment on above: Performed By: #### L 100.0100, L501.5200, L500.2500, L300.3900 ####[facility] [address] [place], [address] Potassium [Moles/Vol] 4.3 mmol/L Normal 3.3-5.1 [facility] Comment on above: Performed By: #### L 100.0100, L501.5200, L500.2500, L300.3900 ####[facility] [address] [place], [address] Sodium [Moles/Vol] 138 mmol/L Normal 133-145 [facility] Comment on above: Performed By: #### L 100.0100, L501.5200, L500.2500, L300.3900 ####[facility] [address] [place], [address] Urea nitrogen [Mass/Vol] 16 mg/dL Normal 4-19 [facility] Comment on above: Performed By: #### L 100.0100, L501.5200, L500.2500, L300.3900 ####[facility] [address] [place], [address] Basophil percentageOrdered B y: Timothy James on 05-30-2024 Basophils/100 WBC (Bld) 0.7 % 0-1 [facility] Basophil percentage 0.7 % 0-1 [facility] CBC W/Diff, Automatedon 05-06 Absolute Lymph 1.81 X10 3/uL Normal 0.83-4.51 [facility] Comment on above: Performed By: #### L 100.0100, L501.5200, L500.2500, L300.3900 ####[facility] [address] [place], [address] Absolute Neut 7.6 X10 3/uL Normal 2.0-7.7 [facility] Comment on above: Performed By: #### L 100.0100, L501.5200, L500.2500, L300.3900 ####[facility] [address] [place], [address] Basophils/100 WBC (Bld) 0.7 % Normal 0-1 [facility] Comment on above: Performed By: #### L 100.0100, L501.5200, L500.2500, L300.3900 ####[facility] [address] [place], [address] Eosinophils/100 WBC (Bld) 0.8 % Normal 0-5 [facility] Comment on above: Performed By: #### L 100.0100, L501.5200, L500.2500, L300.3900 ####[facility] [address] [place], [address] Erythrocyte distribution width (RBC) [Ratio] 14.2 % Normal 11.6-14.6 [facility] Comment on above: Performed By: #### L 100.0100, L501.5200, L500.2500, L300.3900 ####[facility] [address] [place], [address] Hematocrit (Bld) [Volume fraction] 35.2 % Low 37-47 [facility] Comment on above: Performed By: #### L 100.0100, L501.5200, L500.2500, L300.3900 ####[facility] [address] [place], [address] Hemoglobin (Bld) [Mass/Vol] 11.6 g/dL Low 12.0-15.0 [facility] Comment on above: Performed By: #### L 100.0100, L501.5200, L500.2500, L300.3900 ####[facility] [address] [place], [address] IG% 0.400 Normal 0.0-0.9 [facility] Comment on above: Result Comment: IG% - Immature Granulocytes (promyelocytes, myelocytes andmetamyelocytes) > 1% indicates that a LEFT SHIFT is Present. Performed By: #### L 100.0100, L501.5200, L500.2500, L300.3900 ####[facility] [address] [place], [address] Lymphocytes/100 WBC (Bld) 17.4 % Low 19-41 [facility] Comment on above: Performed By: #### L 100.0100, L501.5200, L500.2500, L300.3900 ####[facility] [address] [place], [address] MCH (RBC) [Entitic mass] 27.7 pg Normal 27.0-32.0 [facility] Comment on above: Performed By: #### L 100.0100, L501.5200, L500.2500, L300.3900 ####[facility] [address] [place], [address] MCHC (RBC) [Mass/Vol] 33.0 g/dL Normal 32-36 [facility] Comment on above: Performed By: #### L 100.0100, L501.5200, L500.2500, L300.3900 ####[facility] [address] [place], [address] MCV (RBC) [Entitic vol] 84.0 fL Normal 81-99 [facility] Comment on above: Performed By: #### L 100.0100, L501.5200, L500.2500, L300.3900 ####[facility] [address] [place], [address] Monocytes/100 WBC (Bld) 7.5 % Normal 0-10 [facility] Comment on above: Performed By: #### L 100.0100, L501.5200, L500.2500, L300.3900 ####[facility] [address] [place], [address] Neutrophils/100 WBC (Bld) 73.2 % High 47-70 [facility] Comment on above: Performed By: #### L 100.0100, L501.5200, L500.2500, L300.3900 ####[facility] [address] [place], [address] Nucleated RBC (Bld) [#/Vol] 0 10*3/uL Normal 0-5 [facility] Comment on above: Performed By: #### L 100.0100, L501.5200, L500.2500, L300.3900 ####[facility] [address] [place], [address] Platelet mean volume (Bld) [Entitic vol] 11.4 fL Normal 6.2-12.0 [facility] Comment on above: Performed By: #### L 100.0100, L501.5200, L500.2500, L300.3900 ####[facility] [address] [place], [address] Platelets (Bld) [#/Vol] 279 10*3/uL Normal 150-450 [facility] [facility] Comment on above: Performed By: #### L 100.0100, L501.5200, L500.2500, L300.3900 ####[facility] [address] [place], [address] RBC (Bld) [#/Vol] 4.19 10*6/uL Low 4.2-5.4 [facility] Comment on above: Performed By: #### L 100.0100, L501.5200, L500.2500, L300.3900 ####[facility] [address] [place], [address] RDW SD 43.2 fl Normal 35.1-43.9 [facility] Comment on above: Performed By: #### L 100.0100, L501.5200, L500.2500, L300.3900 ####[facility] [address] [place], [address] WBC (Bld) [#/Vol] 10.4 10*3/uL Normal 4.4-11.0 [facility] Comment on above: Performed By: #### L 100.0100, L501.5200, L500.2500, L300.3900 ####[facility] [address] [place], [address] CTA Chest W/WO Contraston CTA Chest W/WO Contrast Normal [facility] Calcium [Mass/Vol]Ordered By : Timothy James on 05-30-2024 Serum or plasma calcium measurement (mass/volume) 9.7 mg/dL 7.6-11.0 [facility] Carbon dioxide, total [Moles /volume] in Central venous bloodOrdered By: Timothy James on 05-30-2024 CO2 [Moles/Vol] 22.4 mmol/L 21.0-32.0 [facility] Carbon dioxide, total [Moles/volume] in Central venous blood 22.4 mmol/L 21.0-32.0 [facility] Chloride assayOrdered By: Ligia James on 05-30-2024 Chloride [Moles/Vol] 104 mmol/L 98-108 [facility] Chloride assay 104 mmol/L 98-108 [facility] Creatinine [Mass/Vol]Ordered By: Timothy James on 05-30-2024 Serum creatinine measurement (mass/volume) 0.98 mg/dL 0.70-1.20 [facility] Emergency Department Summary on 05-30-2024 Emergency Department Summary Normal [facility] Eosinophil percentageOrdered By: Timothy James on 05-30-2024 Eosinophils/100 WBC (Bld) 0.8 % 0-5 [facility] Eosinophil percentage 0.8 % 0-5 [facility] Erythrocyte distribution wid th (RBC) [Entitic vol]Ordered By: Timothy James on 05-30-2024 Erythrocyte distribution width standard deviation 43.2 fl 35.1-43.9 [facility] Erythrocyte distribution wid th (RBC) [Ratio]Ordered By: Timothy James on 05-30-2024 Erythrocyte distribution width ratio 14.2 % 11.6-14.6 [facility] Erythrocyte distribution wid th ratioOrdered By: Timothy James on 05-30-2024 Erythrocyte distribution width (RBC) [Ratio] 14.2 % 11.6-14.6 [facility] Erythrocyte distribution wid th standard deviationOrdered By: Timothy James on 05-30-2024 Erythrocyte distribution width (RBC) [Entitic vol] 43.2 fL 35.1-43.9 [facility] Erythrocyte distribution width (RBC) [Ratio] 43.2 fl 35.1-43.9 [facility] Estimation of creatinine stefani aranceOrdered By: Timothy James on 05-30-2024 Estimated Creatinine Clearance Calc 53.89 ml/min 50-250 [facility] Estimation of creatinine clearance 53.89 ml/min 50-250 [facility] GFR/1.73 sq M.predicted killian g non-blacks MDRD (S/P/Bld) [Vol rate/Area]Ordered By: Timothy James on 05-30-2024 Estimated GFR (MDRD) Non-Af Amer 60 >60 [facility] Comment on above: mL/min/1.73m2 CKD-EP I Creatinine Equation (2020) Glomerular filtration rate (GFR) estimation/1.73 sq m using serum, plasma, or whole b 60 >60 [facility] Glomerular filtration rate ( GFR) estimation/1.73 sq m using serum, plasma, or whole bOrdered By: Timothy James on 05-30-2024 GFR/1.73 sq M.predicted among non-blacks MDRD (S/P/Bld) [Vol rate/Area] 60 mL/min/{1.73_m2} >60 [facility] Glucose [Mass/Vol]Ordered By : Timothy James on 05-30-2024 Serum glucose measurement (mass/volume) 164 mg/dL High 70-99 [facility] Hematocrit Auto (Bld) [Volum e fraction]Ordered By: Timothy James on 05-30-2024 Hematocrit (Bld) [Volume fraction] 35.2 % Low 37-47 [facility] Automated blood hematocrit (percentage) 35.2 % Low 37-47 [facility] Hemoglobin measurementOrdere d By: Timothy James on 05-30-2024 Hemoglobin (Bld) [Mass/Vol] 11.6 g/dL Low 12.0-15.0 [facility] Hemoglobin measurement 11.6 g/dL Low 12.0-15.0 [facility] Immature granulocytes/100 WB C Auto (Bld)Ordered By: Timothy James on 05-30-2024 Immature granulocytes/100 WBC (Bld) 0.400 % 0.0-0.9 [facility] Comment on above: IG% - Immature Granu locytes (promyelocytes, myelocytes and metamyelocytes) > 1% indicates that a LEFT SHIFT is Present. Automated immature granulocyte percentage 0.400 % 0.0-0.9 [facility] International normalized rat io (INR) calculationOrdered By: Timothy James on 05-30-2024 INR Coag (Bld) [Relative time] 2.2 {INR} [facility] International normalized ratio (INR) calculation 2.2 [facility] L499.0042on 05-30-2024 Trop T High Sen 19 ng/L High <=14 [facility] Comment on above: Performed By: #### L 499.0042 ####[facility] [address] [place], [address] L501.4021on 05-30-2024 Trop T High Sen 19 ng/L High <=14 [facility] Comment on above: Performed By: #### L 501.4021 ####[facility] [address] [place], [address] Lymphocytes Auto (Unsp spec) [#/Vol]Ordered By: Timothy James on 05-30-2024 Lymphocytes (Bld) [#/Vol] 1.81 10*3/uL 0.83-4.51 [facility] Absolute lymphocyte count 1.81 X10^3/uL 0.83-4.51 [facility] Lymphocytes/100 WBC Auto (Un sp spec)Ordered By: Timothy James on 05-30-2024 Lymphocytes/100 WBC (Bld) 17.4 % Low - [facility] Automated lymphocyte count as percentage of total leukocytes 17.4 % Low 19-41 [facility] MCV (RBC) [Entitic vol]Order ed By: Timothy James on 05-30-2024 MCV (mean corpuscular volume) determination 84.0 fL 81-99 [facility] MCV (mean corpuscular volume ) determinationOrdered By: Timothy James on 05-30-2024 MCV (RBC) [Entitic vol] 84.0 fL 81-99 [facility] Magnesiumon 05-30-2024 Magnesium [Mass/Vol] 1.8 mg/dL Normal 1.5-2.2 [facility] Comment on above: Performed By: #### L 100.0100, L501.5200, L500.2500, L300.3900 ####[facility] [address] [place], [address] Magnesium (Unsp spec) [Mass/ Vol]Ordered By: Timothy James on 05-30-2024 Magnesium [Mass/Vol] 1.8 mg/dL 1.5-2.2 [facility] Magnesium measurement (mass/volume) 1.8 mg/dL 1.5-2.2 [facility] Magnesium measurement (mass/ volume)Ordered By: Timothy James on 05-30-2024 Magnesium (Unsp spec) [Mass/Vol] 1.8 mg/dL 1.5-2.2 [facility] Mean corpuscular hemoglobin (MCH) determinationOrdered By: Timothy James on 05-30-2024 MCH (RBC) [Entitic mass] 27.7 pg 27.0-32.0 [facility] Mean corpuscular hemoglobin (MCH) determination 27.7 pg 27.0-32.0 [facility] Mean corpuscular hemoglobin concentration (MCHC) determinationOrdered By: Timothy James on 05-30-2024 MCHC (RBC) [Mass/Vol] 33.0 g/dL 32-36 [facility] Mean corpuscular hemoglobin concentration (MCHC) determination 33.0 g/dL -36 [facility] Mean platelet volume determi nationOrdered By: Timothy James on 05-30-2024 Platelet mean volume (Bld) [Entitic vol] 11.4 fL 6.2-12.0 [facility] Mean platelet volume determination 11.4 fl 6.2-12.0 [facility] Monocyte percentageOrdered B y: Timothy James on 05-30-2024 Monocytes/100 WBC (Bld) 7.5 % 0-10 [facility] Monocyte percentage 7.5 % 0-10 [facility] Neutrophil percentageOrdered By: Timothy James on 05-30-2024 Neutrophils/100 WBC (Bld) 73.2 % High 47-70 [facility] Neutrophil percentage 73.2 % High 47-70 [facility] No Panel InformationOrdered By: Timothy James on 05-30-2024 Troponin T High Sensitivity 19 ng/L High <14 [facility] Comment on above: Delta: 14 on 5-0002 19 ng/L High <14 [facility] Nucleated red blood cell per centageOrdered By: Timothy James on 05-30-2024 Nucleated RBC/100 WBC (Bld) [Ratio] 0 % 0-5 [facility] Nucleated red blood cell percentage 0 % 0-5 [facility] Platelet countOrdered By: Ligia James on 05-30-2024 Platelets (Bld) [#/Vol] 279 10*3/uL 150-450 [facility] Platelet count 279 K/mm3 150-450 [facility] Potassium (Unsp spec) [Mass/ Vol]Ordered By: Timothy James on 05-30-2024 Potassium [Moles/Vol] 4.3 mmol/L 3.3-5.1 [facility] Potassium measurement (mass/volume) 4.3 mmol/L 3.3-5.1 [facility] Potassium measurement (mass/ volume)Ordered By: Timothy James on 05-30-2024 Potassium (Unsp spec) [Mass/Vol] 4.3 mmol/L 3.3-5.1 [facility] Prothrombin Time w/INRon INR Coag (PPP) [Relative time] 2.2 {INR} Normal [facility] Comment on above: Performed By: #### L 100.0100, L501.5200, L500.2500, L300.3900 ####[facility] [address] [place], [address] PT Coag (PPP) [Time] 24.7 s High 11.7-14.9 [facility] Comment on above: Performed By: #### L 100.0100, L501.5200, L500.2500, L300.3900 ####[facility] [address] [place], [address] Prothrombin timeOrdered By: Timothy James on 05-30-2024 PT Coag (PPP) [Time] 24.7 s High 11.7-14.9 [facility] Prothrombin time 24.7 SECONDS High 11.7-14.9 [facility] RBC Auto (Bld) [#/Vol]Ordere d By: Timothy James on 05-30-2024 RBC (Bld) [#/Vol] 4.19 10*6/uL Low 4.2-5.4 [facility] Automated blood erythrocyte count 4.19 M/mm3 Low 4.2-5.4 [facility] Serum creatinine measurement (mass/volume)Ordered By: Timothy James on 05-30-2024 Creatinine [Mass/Vol] 0.98 mg/dL 0.70-1.20 [facility] Serum glucose measurement (m ass/volume)Ordered By: Timothy James on 05-30-2024 Glucose [Mass/Vol] 164 mg/dL High 70-99 [facility] Serum or plasma calcium sebastián urement (mass/volume)Ordered By: Timothy James on 05-30-2024 Calcium [Mass/Vol] 9.7 mg/dL 7.6-11.0 [facility] Serum or plasma urea nitroge n measurement (mass/volume)Ordered By: Timothy James on 05-30-2024 Urea nitrogen [Mass/Vol] 16 mg/dL 06-23 [facility] Sodium levelOrdered By: Haile James on 05-30-2024 Sodium [Moles/Vol] 138 mmol/L 133-145 [facility] Sodium level 138 mmol/L 133-145 [facility] Troponin T.cardiac High sens itivity method [Mass/Vol]Ordered By: Timothy James on 05-30-2024 Troponin T High Sensitivity 2 Hour 19 ng/L High <14 [facility] Troponin T.cardiac [Mass/volume] in Serum or Plasma by High sensitivity method 19 ng/L High <14 [facility] Troponin T.cardiac [Mass/vol ume] in Serum or Plasma by High sensitivity methodOrdered By: Timothy James on 05-30-2024 Troponin T.cardiac High sensitivity method [Mass/Vol] 19 ng/L High <14 [facility] Urea nitrogen [Mass/Vol]Orde red By: Timothy James on 05-30-2024 Serum or plasma urea nitrogen measurement (mass/volume) 16 mg/dL - [facility] White blood cell (WBC) count Ordered By: Timothy James on 05-30-2024 WBC (Bld) [#/Vol] 10.4 10*3/uL 4.4-11.0 [facility] White blood cell (WBC) count 10.4 K/mm3 4.4-11.0 [facility] International normalized rat io (INR) calculationOrdered By: Kay Cavazos on 05-24-2024 INR Coag (Bld) [Relative time] 1.5 {INR} [facility] International normalized ratio (INR) calculation 1.5 [facility] Prothrombin Time w/INRon INR Coag (PPP) [Relative time] 1.5 {INR} Normal [facility] Comment on above: Performed By: #### L 300.3900 ####[facility] [address] [place], [address] Prothrombin timeOrdered By: Kay Cavazos on 05-24-2024 PT Coag (PPP) [Time] 18.8 s High 11.7-14.9 [facility] Comment on above: Performed By: #### L 300.3900 ####[facility] [address] [place], [place], [address] Prothrombin time 18.8 SECONDS High 11.7-14.9 [facility] CNOVon 05-22-2024 CNOV Office Visit (FAMPWS ) -------- LAISHA WALKER ([id number]) 1950 F Date Time Provider Department 05/22/24 1:20 PM OTONIEL KING FAMPWS During your visit today, we recorded the following information about you: Pulse Respiration Blood pressure Weight 72/minute 16/minute 124/77 92.1 kg Otoniel King APRN.CNP 05/22/2024 1:48 PM Signed TRANSITION CARE MANAGEMENT (TCM) INITIAL CONTACT Divisional Merchandising Manager Outreach Provider Action/FYI: Pt reports [facility] instructed her to start coumadin on Tuesday05/20/24. Initial contact with patient post discharge, spoke to patient. Patient identified by name and . TRANSITION CARE MANAGEMENT INITIAL OUTREACH DOCUMENTATION: 05/18/2024 Date of Outreach: Outreach Attempt 1: Contact Made Date of Discharge 05/17/2024 SUMMARY: -Pt discharged from [facility] on 05/17/24. -Admitted for: Duodenal ulcer. GI bleed. Flu A. Sinus infection. Do you have a hospital follow up appointment with your PCP? Appointment on 05/22/24 with Otoniel King. Yes. Remind patient of appointment date, time, and location. If not within 14 calendar days of discharge - please reschedule accordingly. MEDICATIONS: Many patients have questions or concerns about their medications once they are home. Were you prescribed any new medications? If yes, what are those medications? Carafate. Protonix. Were you told to hold any medications? If yes, what are those medications? Coumadin on Hold. Has to check INR before restarts. States she has a standing order at [facility] for heart group. Were any of your medications discontinued? No Do you have any questions about getting or taking your medications? No Your discharge instructions/After visit Summary (AVS) are important in guiding you through the recovery process. Is there anything I might help you understand? No Do you have all the necessary equipment and supplies at home? Yes Medical records from recent hospitalization: Care Everywhere Chief Complaint Patient presents with: Hospital F/U: [facility] duodenal ulcer. Flu HPI Laisha Walker is a 74 year old female who presents here today for Hospital Discharge Follow up. Patient Overview: Patient is here for a hospital follow-up. She went to [facility] on May 15 for two episodes of dark stool. Two days prior, she was at [facility] and was diagnosed with influenza A. She is on Coumadin for atrial fibrillation and had a few episodes of dizziness. During her hospital stay, she was given IV Protonix and IV fluids, and her Coumadin was held. Gastroenterology was consulted, and she was admitted for observation to the progressive care unit. Her cardiology group also evaluated her and ordered an ultrasound of her carotid arteries due to dizziness. 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 Referred to vascular surgery. - Discharge Diagnoses (May 17): - Duodenal ulcer - GI bleed - Flu A - Sinus infection - Cirrhosis of the liver - Kidney function and Hgb Hct stable on discharge Items for Follow-Up Today: - Restart Coumadin on Tuesday, May 20 per [facility]. They have been following her INR. Umm is a 74-year-old female with a history of atrial fibrillation on Coumadin, presenting for a follow-up after a recent hospitalization for melena. Umm was admitted to [facility] on May 15 after experiencing two episodes of melena. She had been seen at the same hospital two days prior and was diagnosed with influenza. During her second visit, her hemoglobin levels were stable compared to her May 13 labs. She was given IV Protonix and IV fluids, and her Coumadin was held during admission. Gastroenterology was consulted, and she was admitted to the progressive care unit for observation. Her cardiology group also evaluated her and ordered a carotid ultrasound due to episodes of dizziness, which revealed 50-69% occlusion. She was discharged in stable condition on May 17 with diagnoses of duodenal ulcerative colitis, GI bleed, influenza A, and sinus infection. She was instructed to restart Coumadin on May 20. Since discharge, she denies any further episodes of melena but notes her stools are now yellow in color. She reports ongoing fatigue, nausea, and a general sense of not feeling well, as well as a persistent cough described as feeling like little feathers tickling her throat. She is currently taking Protonix 40 mg BID and Carafate, both of which were started during her hospital stay. She has a follow-up appointment with a c d still operator but does not recall the name. She also has a scheduled INR check on . She monitors her blood pressure at home, which typically ranges from 120/70 mmHg to 140/70 mmHg. Past medical history, appointments, medications, (more content not included)... Normal [facility] Natasha 05-18-2024 GLENN Telephone (KETURAHWS) -------- ALISHA WALKER ([id number]) 1950 F Date Time Provider Department 05/18/24 FLAKO TRACY During your visit today, we recorded the following information about you: Vickie Gaines, RN 05/18/2024 10:00 AM Signed Pt was d/c'd from [facility] yesterday. Reports she was admitted with duodenal ulcer, GI bleed, Flu A, sinus infection. Pt has f/u appt with Angela King on 05/22/24. TCM completed. Coumadin is on hold. Pt taking new Rx's carafate, and protonix. She was told carafate interacts with coumadin. Pt reports [facility] instructed her to restart coumadin on Tuesday05/20/24. Asking Otoniel if she should start it on Tuesday. Should she have INR checked first. Reports she has a standing order through Heart group at [facility]. Please advise and phone pt with reply. Otoniel King APRN.CNP 05/18/2024 10:29 AM Signed Noted. Since [facility] is managing her Coumadin, INR, she should reach out to them to ask their guidance. Otoniel King APRN.Areli Lindsey LPN 05/18/2024 11:13 AM Signed Patient notified. Verbalized understanding. Allergies As of Date: 05/18/2024 Noted Allergy Reaction GABAPENTIN 11/03/2021 14 - Other: See Comments Comments: Dizziness ACCUPRIL (QUINAPRIL HCL) 07/05/2005 14 - Other: See Comments BEXTRA (VALDECOXIB) 07/05/2005 8 - GI Upset CELEBREX (CELECOXIB) 07/05/2005 8 - GI Upset Comments: CODEINE 07/05/2005 14 - Other: See Comments ENTEX LA (PHENYLEPHRINE-GUAIFENES *07/05/2005 14 - Other: See Comments GLUCOPHAGE (METFORMIN HCL) 07/05/2005 14 - Other: See Comments LIPITOR (ATORVASTATIN CALCIUM) 07/05/2005 14 - Other: See Comments LODINE (ETODOLAC) 07/05/2005 8 - GI Upset NAPROSYN (NAPROXEN) 07/05/2005 14 - Other: See Comments NSAIDS (NON-STEROIDAL ANTI-INFLAM*12/06/2019 14 - Other: See Comments PRAVACHOL (PRAVASTATIN SODIUM) 07/05/2005 14 - Other: See Comments Comments: Worsening abdominal pain SULFA (SULFONAMIDE ANTIBIOTICS) 07/08/2014 8 - GI Upset ULTRACET (TRAMADOL-ACETAMINOPHEN) 07/05/2005 14 - Other: See Comments VICODIN (HYDROCODONE-ACETAMINOPH E*07/05/2005 14 - Other: See Comments VIOXX (ROFECOXIB) 07/05/2005 14 - Other: See Comments ZOCOR (SIMVASTATIN) 07/05/2005 14 - Other: See Comments Date Reviewed: 02/16/2024 Reviewed by: Meggan Bartlett LPN - Fully Assessed Reason for Visit: Patient Question [1477] Prescriptions as of 05/18/2024 - blood sugar diagnostic (BLOOD GLUCOSE TEST) test strip Test blood sugar(s) 1` times daily. Dx: Type 2 DM - Uncontrolled E11.65 Insulin: No - glipiZIDE (GLUCOTROL XL) 10mg 24 hr tablet Take 1 tablet by mouth two times a day. - metoprolol tartrate, short acting, (LOPRESSOR) 50 mg tablet Take 50 mg by mouth two times a day. - rosuvastatin (CRESTOR) 10 mg tablet Take 20 mg by mouth once daily. - losartan (COZAAR) 25 mg tablet Take 0.5 tablets by mouth every afternoon. - warfarin (COUMADIN) 5 mg tablet 2.5 mg //Tuesday, 5 mg all other days or as directed - docusate sodium (STOOL SOFTENER ORAL) Take by mouth as needed. OTC - Lancets lancets Test blood sugar(s) 1` times daily. Dx: Type 2 DM - Uncontrolled E11.65 Insulin: No - hydrocortisone (ANUSOL-HC) 2.5 % rectal cream by RECTAL route twice daily. - multivitamin (MULTIPLE VITAMINS ORAL) Take by mouth. - alcohol swabs (ALCOHOL PREP PADS) Apply 1 application to affected area once daily. - loratadine (CLARITIN) 10 mg tablet Take 10 mg by mouth once daily. - acetaminophen (TYLENOL) 325 mg tablet Take 500 mg by mouth. 2 TABLETS AT HS Problem List As Of Date 05/18/2024 Noted Resolved LUMBAGO [M54.50] 07/06/2005 ENTHESOPATHY OF HIP [M76.899] 07/06/2005 SPRAIN LUMBAR REGION [S33.5XXA] 07/06/2005 Dyslipidemia associated with type 2 diabetes me* Paroxysmal atrial fibrillation (HCC) [I48.0] 01/15/2023 Carotid stenosis, asymptomatic [I65.29] Right renal mass [N28.89] 05/18/2019 Obesity, Class II, BMI 35-39.9 [E66.812] 05/19/2019 Renal carcinoma, right (HCC) [C64.1] 05/20/2019 01/21/2023 Other cirrhosis of liver (HCC) [K74.69] 05/23/2020 Stage 3a chronic kidney disease (HCC) [N18.31] 08/10/2022 Obesity, Class I, BMI 30-34.9 [E66.811] 11/19/2022 01/22/2023 Anticoagulant long-term use [Z79.01] 11/24/2022 Third degree atrioventricular block (HCC) [I44.*01/22/2023 Bradycardia [R00.1] 01/22/2023 At risk for stroke [Z91.89] 01/22/2023 Bilateral carotid artery stenosis [I65.23] 10/10/2016 Diagnosed: 01/22/2023 Gastroesophageal reflux disease [K21.9] 01/22/2023 Diagnosed: 01/22/2023 Hyperlipidemia [E78.5] 01/22/2023 Diagnosed: 01/22/2023 Recurrent falls [R29.6] 01/22/2023 Diagnosed: 01/22/2023 Orthostatic hypotension [I95.1] 01/17/2023 Diagnosed: 01/22/2023 Holley-Mary syncope [I45.9] 01/22/2023 Diabetes mellitus type 2 in obese (HCC) [E11.6*01/22/2023 S/P placement of cardiac pacemaker [Z95.0] 01/25/2023 Encounter (more content not included)... Normal [facility] International normalized rat io (INR) calculationOrdered By: Kay Cavazos on 05-18-2024 INR Coag (Bld) [Relative time] 1.4 {INR} [facility] Prothrombin Time w/INRon INR Coag (PPP) [Relative time] 1.4 {INR} Normal [facility] Comment on above: Performed By: #### L 300.3900 ####[facility] [address] [place], [place], [id number] PT Coag (PPP) [Time] 17.0 s High 11.7-14.9 [facility] Comment on above: Performed By: #### L 300.3900 ####[facility] [address] [place], [place], [id number] Prothrombin timeOrdered By: Kay Cavazos on 05-18-2024 PT Coag (PPP) [Time] 17.0 s High 11.7-14.9 [facility] 12 Lead EKGon 05-17-2024 12 Lead EKG Normal [facility] Absolute lymphocyte countOrd ered By: Adonis Love on 05-17-2024 Lymphocytes Auto (Unsp spec) [#/Vol] 1.28 10*3/uL 0.83-4.51 [facility] Absolute neutrophil countOrd ered By: Adonis Love on 05-17-2024 Neutrophils (Bld) [#/Vol] 2.4 10*3/uL 2.0-7.7 [facility] Absolute neutrophil count 2.4 X10^3/uL 2.0-7.7 [facility] Anion gap [Moles/Vol]Ordered By: Adonis Love on 05-17-2024 Anion gap in Serum or Plasma 13 07-19 [facility] Anion gap in Serum or Plasma Ordered By: Adonis Love on 05-17-2024 Anion gap [Moles/Vol] 13 mmol/L 07-19 [facility] Automated lymphocyte count a s percentage of total leukocytesOrdered By: Adonis Love on 05-17-2024 Lymphocytes/100 WBC Auto (Unsp spec) 31.8 % [facility] BUN/creatinine ratioOrdered By: Adonis Love on 05-17-2024 Urea nitrogen/Creatinine [Mass ratio] 14.2 mg/mg - [facility] BUN/creatinine ratio 14.2 RATIO - [facility] Basic Metabolic Profile (BMP )on 05-17-2024 BUN/CRE 14.2 RATIO Normal - [facility] Comment on above: Performed By: #### L 501.5200, L501.2300, L500.2500 ####[facility] [address] [place], [address] Calcium [Mass/Vol] 8.4 mg/dL Normal 7.6-11.0 [facility] Comment on above: Performed By: #### L 501.5200, L501.2300, L500.2500 ####[facility] [address] [place], [address] Chloride [Moles/Vol] 103 mmol/L Normal 98-108 [facility] Comment on above: Performed By: #### L 501.5200, L501.2300, L500.2500 ####[facility] [address] [place], [address] CO2 [Moles/Vol] 19.2 mmol/L Low 21.0-32.0 [facility] Comment on above: Performed By: #### L 501.5200, L501.2300, L500.2500 ####[facility] [address] [place], [address] Creatinine [Mass/Vol] 0.91 mg/dL Normal 0.70-1.20 [facility] Comment on above: Performed By: #### L 501.5200, L501.2300, L500.2500 ####[facility] [address] [place], [address] ECRCL 58.87 ml/min Normal 50-250 [facility] Comment on above: Performed By: #### L 501.5200, L501.2300, L500.2500 ####[facility] [address] [place], [address] GAP 13 Normal 5-15 [facility] Comment on above: Performed By: #### L 501.5200, L501.2300, L500.2500 ####[facility] [address] [place], [address] GFR/1.73 sq M.predicted among non-blacks MDRD (S/P/Bld) [Vol rate/Area] 66 mL/min/{1.73_m2} Normal >60 [facility] Comment on above: Result Comment: mL/m in/1.73m2 CKD-EPI Creatinine Equation (2020) Performed By: #### L 501.5200, L501.2300, L500.2500 ####[facility] [address] [place], [address] Glucose [Mass/Vol] 111 mg/dL High 70-99 [facility] Comment on above: Performed By: #### L 501.5200, L501.2300, L500.2500 ####[facility] [address] [place], [address] Potassium [Moles/Vol] 3.6 mmol/L Normal 3.3-5.1 [facility] Comment on above: Performed By: #### L 501.5200, L501.2300, L500.2500 ####[facility] [address] [place], [address] Sodium [Moles/Vol] 135 mmol/L Normal 133-145 [facility] Comment on above: Performed By: #### L 501.5200, L501.2300, L500.2500 ####[facility] [address] [place], [address] Urea nitrogen [Mass/Vol] 13 mg/dL Normal 4-19 [facility] Comment on above: Performed By: #### L 501.5200, L501.2300, L500.2500 ####[facility] [address] [place], [address] Basophil percentageOrdered B y: Adonis Love on 05-17-2024 Basophils/100 WBC (Bld) 0.2 % 0-1 [facility] Basophil percentage 0.2 % 0-1 [facility] Bedside Glucoseon 05-17-2024 FINGERSTICK GLU 145 mg/dL High 74-106 [facility] Comment on above: Result Comment: MUKUND GEMENT OF PATIENT CARE PER NURSING PROTOCOL Performed By: #### L 501.080 ####[facility] [address] [place], [address] FINGERSTICK GLU 112 mg/dL High 74-106 [facility] Comment on above: Result Comment: MUKUND GEMENT OF PATIENT CARE PER NURSING PROTOCOL Performed By: #### L 501.080 ####[facility] [address] [place], [address] FINGERSTICK GLU 137 mg/dL High 74-106 [facility] Comment on above: Result Comment: MUKUND GEMENT OF PATIENT CARE PER NURSING PROTOCOL Performed By: #### L 501.080 ####[facility] [address] [place], [address] CBC W/Diff, Automatedon 05-05 Absolute Lymph 1.28 X10 3/uL Normal 0.83-4.51 [facility] Comment on above: Performed By: #### L 100.0100 ####[facility] [address] [place], [address] Absolute Neut 2.4 X10 3/uL Normal 2.0-7.7 [facility] Comment on above: Performed By: #### L 100.0100 ####[facility] [address] [place], [address] Basophils/100 WBC (Bld) 0.2 % Normal 0-1 [facility] Comment on above: Performed By: #### L 100.0100 ####[facility] [address] [place], [address] Eosinophils/100 WBC (Bld) 0.7 % Normal 0-5 [facility] Comment on above: Performed By: #### L 100.0100 ####[facility] [address] [place], [address] Erythrocyte distribution width (RBC) [Ratio] 14.6 % Normal 11.6-14.6 [facility] Comment on above: Performed By: #### L 100.0100 ####[facility] [address] [place], [address] Hematocrit (Bld) [Volume fraction] 29.2 % Low 37-47 [facility] Comment on above: Performed By: #### L 100.0100 ####[facility] [address] [place], [address] Hemoglobin (Bld) [Mass/Vol] 9.7 g/dL Low 12.0-15.0 [facility] Comment on above: Performed By: #### L 100.0100 ####[facility] [address] [place], [address] IG% 0.200 Normal 0.0-0.9 [facility] Comment on above: Result Comment: IG% - Immature Granulocytes (promyelocytes, myelocytes andmetamyelocytes) > 1% indicates that a LEFT SHIFT is Present. Performed By: #### L 100.0100 ####[facility] [address] [place], [address] Lymphocytes/100 WBC (Bld) 31.8 % Normal 19-41 [facility] Comment on above: Performed By: #### L 100.0100 ####[facility] [address] [place], [address] MCH (RBC) [Entitic mass] 28.0 pg Normal 27.0-32.0 [facility] Comment on above: Performed By: #### L 100.0100 ####[facility] [address] [place], [address] MCHC (RBC) [Mass/Vol] 33.2 g/dL Normal 32-36 [facility] Comment on above: Performed By: #### L 100.0100 ####[facility] [address] [place], [address] MCV (RBC) [Entitic vol] 84.1 fL Normal 81-99 [facility] Comment on above: Performed By: #### L 100.0100 ####[facility] [address] [place], [address] Monocytes/100 WBC (Bld) 8.5 % Normal 0-10 [facility] Comment on above: Performed By: #### L 100.0100 ####[facility] [address] [place], [address] Neutrophils/100 WBC (Bld) 58.6 % Normal 47-70 [facility] Comment on above: Performed By: #### L 100.0100 ####[facility] [address] [place], [address] Nucleated RBC (Bld) [#/Vol] 0 10*3/uL Normal 0-5 [facility] Comment on above: Performed By: #### L 100.0100 ####[facility] [address] [place], [address] Platelet mean volume (Bld) [Entitic vol] 11.2 fL Normal 6.2-12.0 [facility] Comment on above: Performed By: #### L 100.0100 ####[facility] [address] [place], [address] Platelets (Bld) [#/Vol] 145 10*3/uL Low 150-450 [facility] Comment on above: Performed By: #### L 100.0100 ####[facility] [address] [place], [address] RBC (Bld) [#/Vol] 3.47 10*6/uL Low 4.2-5.4 [facility] Comment on above: Performed By: #### L 100.0100 ####[facility] [address] [place], [address] RDW SD 44.4 fl High 35.1-43.9 [facility] Comment on above: Performed By: #### L 100.0100 ####[facility] [address] [place], [address] WBC (Bld) [#/Vol] 4.0 10*3/uL Low 4.4-11.0 [facility] Comment on above: Performed By: #### L 100.0100 ####[facility] [address] [place], [address] Calcium [Mass/Vol]Ordered By : Adonis Love on 05-17-2024 Serum or plasma calcium measurement (mass/volume) 8.4 mg/dL 7.6-11.0 [facility] Carbon dioxide, total [Moles /volume] in Central venous bloodOrdered By: Adonis Love on 05-17-2024 CO2 [Moles/Vol] 19.2 mmol/L Low 21.0-32.0 [facility] Carbon dioxide, total [Moles/volume] in Central venous blood 19.2 mmol/L Low 21.0-32.0 [facility] Chloride assayOrdered By: Ravin Love on 05-17-2024 Chloride [Moles/Vol] 103 mmol/L 98-108 [facility] Chloride assay 103 mmol/L 98-108 [facility] Creatinine [Mass/Vol]Ordered By: Adonis Love on 05-17-2024 Serum creatinine measurement (mass/volume) 0.91 mg/dL 0.70-1.20 [facility] Eosinophil percentageOrdered By: Adonis Love on 05-17-2024 Eosinophils/100 WBC (Bld) 0.7 % 0-5 [facility] Eosinophil percentage 0.7 % 0-5 [facility] Erythrocyte distribution wid th (RBC) [Entitic vol]Ordered By: Adonis Love on 05-17-2024 Erythrocyte distribution width standard deviation 44.4 fl High 35.1-43.9 [facility] Erythrocyte distribution wid th (RBC) [Ratio]Ordered By: Adonis Love on 05-17-2024 Erythrocyte distribution width ratio 14.6 % 11.6-14.6 [facility] Erythrocyte distribution wid th ratioOrdered By: Adonis Love on 05-17-2024 Erythrocyte distribution width (RBC) [Ratio] 14.6 % 11.6-14.6 [facility] Erythrocyte distribution wid th standard deviationOrdered By: Adonis Love on 05-17-2024 Erythrocyte distribution width (RBC) [Entitic vol] 44.4 fL High 35.1-43.9 [facility] Erythrocyte distribution width (RBC) [Ratio] 44.4 fl High 35.1-43.9 [facility] Estimation of creatinine stefani aranceOrdered By: Adonis Love on 05-17-2024 Estimated Creatinine Clearance Calc 58.87 ml/min 50-250 [facility] Estimation of creatinine clearance 58.87 ml/min 50-250 [facility] GFR/1.73 sq M.predicted killian g non-blacks MDRD (S/P/Bld) [Vol rate/Area]Ordered By: Adonis Love on 05-17-2024 Estimated GFR (MDRD) Non-Af Amer 66 >60 [facility] Comment on above: mL/min/1.73m2 CKD-EP I Creatinine Equation (2020) Glomerular filtration rate (GFR) estimation/1.73 sq m using serum, plasma, or whole b 66 >60 [facility] Glomerular filtration rate ( GFR) estimation/1.73 sq m using serum, plasma, or whole bOrdered By: Adonis Love on 05-17-2024 GFR/1.73 sq M.predicted among non-blacks MDRD (S/P/Bld) [Vol rate/Area] 66 mL/min/{1.73_m2} >60 [facility] Glucose [Mass/Vol]Ordered By : Adonis Love on 05-17-2024 Serum glucose measurement (mass/volume) 111 mg/dL High 70-99 [facility] Glucose measurement at bedsi deOrdered By: Adonis Love on 05-17-2024 Bedside Glucose (Misc Panel) 145 mg/dL High 74-106 [facility] Comment on above: MANAGEMENT OF PATIEN T CARE PER NURSING PROTOCOL Glucose [Mass/Vol] 145 mg/dL High 74-106 [facility] Glucose measurement at bedside 145 mg/dL High 74-106 [facility] HH, Hemoglobin AND Hematocri ton 05-17-2024 Hematocrit (Bld) [Volume fraction] 32.4 % Low 37-47 [facility] Comment on above: Performed By: #### L 100.0600 ####[facility] [address] [place], [address] Hemoglobin (Bld) [Mass/Vol] 10.5 g/dL Low 12.0-15.0 [facility] Comment on above: Performed By: #### L 100.0600 ####[facility] [address] [place], [address] Hematocrit Auto (Bld) [Volum e fraction]Ordered By: Adonis Love on 05-17-2024 Hematocrit (Bld) [Volume fraction] 32.4 % Low 37-47 [facility] Automated blood hematocrit (percentage) 32.4 % Low 37-47 [facility] Hemoglobin measurementOrdere d By: Adonis Love on 05-17-2024 Hemoglobin (Bld) [Mass/Vol] 10.5 g/dL Low 12.0-15.0 [facility] Hemoglobin measurement 10.5 g/dL Low 12.0-15.0 [facility] Immature granulocytes/100 WB C Auto (Bld)Ordered By: Adonis Love on 05-17-2024 Immature granulocytes/100 WBC (Bld) 0.200 % 0.0-0.9 [facility] Comment on above: IG% - Immature Granu locytes (promyelocytes, myelocytes and metamyelocytes) > 1% indicates that a LEFT SHIFT is Present. Automated immature granulocyte percentage 0.200 % 0.0-0.9 [facility] Lymphocytes Auto (Unsp spec) [#/Vol]Ordered By: Adonis Love on 05-17-2024 Lymphocytes (Bld) [#/Vol] 1.28 10*3/uL 0.83-4.51 [facility] Absolute lymphocyte count 1.28 X10^3/uL 0.83-4.51 [facility] Lymphocytes/100 WBC Auto (Un sp spec)Ordered By: Adonis Love on 05-17-2024 Lymphocytes/100 WBC (Bld) 31.8 % [facility] Automated lymphocyte count as percentage of total leukocytes 31.8 % [facility] MCV (RBC) [Entitic vol]Order ed By: Adonis Love on 05-17-2024 MCV (mean corpuscular volume) determination 84.1 fL 81-99 [facility] MCV (mean corpuscular volume ) determinationOrdered By: Adonis Love on 05-17-2024 MCV (RBC) [Entitic vol] 84.1 fL 81-99 [facility] Magnesiumon 05-17-2024 Magnesium [Mass/Vol] 1.5 mg/dL Normal 1.5-2.2 [facility] Comment on above: Performed By: #### L 501.5200, L501.2300, L500.2500 ####[facility] [address] [place], [address] Magnesium (Unsp spec) [Mass/ Vol]Ordered By: [place] on 05-17-2024 Magnesium [Mass/Vol] 1.5 mg/dL 1.5-2.2 [facility] Magnesium measurement (mass/volume) 1.5 mg/dL 1.5-2.2 [facility] Magnesium measurement (mass/ volume)Ordered By: [place] on 05-17-2024 Magnesium (Unsp spec) [Mass/Vol] 1.5 mg/dL 1.5-2.2 [facility] Mean corpuscular hemoglobin (MCH) determinationOrdered By: Adonis Love on 05-17-2024 MCH (RBC) [Entitic mass] 28.0 pg 27.0-32.0 [facility] Mean corpuscular hemoglobin (MCH) determination 28.0 pg 27.0-32.0 [facility] Mean corpuscular hemoglobin concentration (MCHC) determinationOrdered By: Adonis Love on 05-17-2024 MCHC (RBC) [Mass/Vol] 33.2 g/dL 32-36 [facility] Mean corpuscular hemoglobin concentration (MCHC) determination 33.2 g/dL -36 [facility] Mean platelet volume determi nationOrdered By: Adonis Love on 05-17-2024 Platelet mean volume (Bld) [Entitic vol] 11.2 fL 6.2-12.0 [facility] Mean platelet volume determination 11.2 fl 6.2-12.0 [facility] Monocyte percentageOrdered B y: Adonis Love on 05-17-2024 Monocytes/100 WBC (Bld) 8.5 % 0-10 [facility] Monocyte percentage 8.5 % 0-10 [facility] Neutrophil percentageOrdered By: Adonis Love on 05-17-2024 Neutrophils/100 WBC (Bld) 58.6 % 47-70 [facility] Neutrophil percentage 58.6 % 47-70 [facility] Nucleated red blood cell per centageOrdered By: Adonis Love on 05-17-2024 Nucleated RBC/100 WBC (Bld) [Ratio] 0 % 0-5 [facility] Nucleated red blood cell percentage 0 % 0-5 [facility] Phosphoruson 05-17-2024 Phosphate [Mass/Vol] 3.0 mg/dL Normal 2.7-4.5 [facility] Comment on above: Performed By: #### L 501.5200, L501.2300, L500.2500 ####[facility] [address] [place], [address] Platelet countOrdered By: Ravin Love on 05-17-2024 Platelets (Bld) [#/Vol] 145 10*3/uL Low 150-450 [facility] Platelet count 145 K/mm3 Low 150-450 [facility] Potassium (Unsp spec) [Mass/ Vol]Ordered By: Adonis Love on 05-17-2024 Potassium [Moles/Vol] 3.6 mmol/L 3.3-5.1 [facility] Potassium measurement (mass/volume) 3.6 mmol/L 3.3-5.1 [facility] Potassium measurement (mass/ volume)Ordered By: Adonis Love on 05-17-2024 Potassium (Unsp spec) [Mass/Vol] 3.6 mmol/L 3.3-5.1 [facility] RBC Auto (Bld) [#/Vol]Ordere d By: Adonis Love on 05-17-2024 RBC (Bld) [#/Vol] 3.47 10*6/uL Low 4.2-5.4 [facility] Automated blood erythrocyte count 3.47 M/mm3 Low 4.2-5.4 [facility] Serum creatinine measurement (mass/volume)Ordered By: Adonis Love on 05-17-2024 Creatinine [Mass/Vol] 0.91 mg/dL 0.70-1.20 [facility] Serum glucose measurement (m ass/volume)Ordered By: Adonis Love on 05-17-2024 Glucose [Mass/Vol] 111 mg/dL High 70-99 [facility] Serum or plasma calcium sebastián urement (mass/volume)Ordered By: Adonis Love on 05-17-2024 Calcium [Mass/Vol] 8.4 mg/dL 7.6-11.0 [facility] Serum or plasma urea nitroge n measurement (mass/volume)Ordered By: Adonis Love on 05-17-2024 Urea nitrogen [Mass/Vol] 13 mg/dL 4-19 [facility] Serum phosphorus measurement Ordered By: [place] on 05-17-2024 Phosphorus Level 3.0 mg/dL 2.7-4.5 [facility] Serum phosphorus measurement 3.0 mg/dL 2.7-4.5 [facility] Sodium levelOrdered By: Adonis Love on 05-17-2024 Sodium [Moles/Vol] 135 mmol/L 133-145 [facility] Sodium level 135 mmol/L 133-145 [facility] Urea nitrogen [Mass/Vol]Orde red By: Adonis Love on 05-17-2024 Serum or plasma urea nitrogen measurement (mass/volume) 13 mg/dL 4-19 [facility] White blood cell (WBC) count Ordered By: Adonis Love on 05-17-2024 WBC (Bld) [#/Vol] 4.0 10*3/uL Low 4.4-11.0 [facility] White blood cell (WBC) count 4.0 K/mm3 Low 4.4-11.0 [facility] ALP [Catalytic activity/Vol] Ordered By: [place] on 05-16-2024 Serum or plasma alkaline phosphatase measurement 62 U/L 35-104 [facility] ALT [Catalytic activity/Vol] Ordered By: [place] on 05-16-2024 Serum or plasma alanine aminotransferase (ALT) measurement 22 U/L <35 [facility] Abdomen/Pelvis WITH Contrast on 05-16-2024 Abdomen/Pelvis WITH Contrast Normal [facility] Albumin [Mass/Vol]Ordered By : [place] on 05-16-2024 Serum or plasma albumin measurement (mass/volume) 3.4 g/dL 3.4-4.8 [facility] Albumin/Globulin [Mass ratio ]Ordered By: [place] on 05-16-2024 Serum or plasma albumin/globulin mass ratio 1.0 RATIO 0.9-2.4 [facility] Bedside Glucoseon 05-16-2024 FINGERSTICK GLU 120 mg/dL High 74-106 [facility] Comment on above: Result Comment: MUKUND GEMENT OF PATIENT CARE PER NURSING PROTOCOL Performed By: #### L 501.080 ####[facility] [address] [place], [place], [address] FINGERSTICK GLU 120 mg/dL High 74-106 [facility] Comment on above: Result Comment: MUKUND GEMENT OF PATIENT CARE PER NURSING PROTOCOL Performed By: #### L 501.080 ####[facility] [address] [place], [place], [address] Bilirubin Test strip Ql (U)O rdered By: [place] on 05-16-2024 Bilirubin Ql (U) Negative Negative [facility] Bilirubin, totalOrdered By: [place] on 05-16-2024 Bilirubin [Mass/Vol] 0.49 mg/dL 0.00-1.30 [facility] Bilirubin, total 0.49 mg/dL 0.00-1.30 [facility] Brain/Head without Contrasto n 05-16-2024 Brain/Head without Contrast Normal [facility] CBC W/Diff, Automatedon 05-05 Absolute Lymph 1.38 X10 3/uL Normal 0.83-4.51 [facility] Comment on above: Performed By: #### L 100.0100, L501.9985, L500.4050, L501.2300, L501.9520, L300.3900, L501.5200 ####[facility] [address] [place], [address] Absolute Neut 3.2 X10 3/uL Normal 2.0-7.7 [facility] Comment on above: Performed By: #### L 100.0100, L501.9985, L500.4050, L501.2300, L501.9520, L300.3900, L501.5200 ####[facility] [address] [place], [address] Basophils/100 WBC (Bld) 0.4 % Normal 0-1 [facility] Comment on above: Performed By: #### L 100.0100, L501.9985, L500.4050, L501.2300, L501.9520, L300.3900, L501.5200 ####[facility] [address] [place], [address] Eosinophils/100 WBC (Bld) 0.8 % Normal 0-5 [facility] Comment on above: Performed By: #### L 100.0100, L501.9985, L500.4050, L501.2300, L501.9520, L300.3900, L501.5200 ####[facility] [address] [place], [address] Erythrocyte distribution width (RBC) [Ratio] 14.6 % Normal 11.6-14.6 [facility] Comment on above: Performed By: #### L 100.0100, L501.9985, L500.4050, L501.2300, L501.9520, L300.3900, L501.5200 ####[facility] [address] [place], [address] Hematocrit (Bld) [Volume fraction] 33.0 % Low 37-47 [facility] Comment on above: Performed By: #### L 100.0100, L501.9985, L500.4050, L501.2300, L501.9520, L300.3900, L501.5200 ####[facility] [address] [place], [address] Hemoglobin (Bld) [Mass/Vol] 10.7 g/dL Low 12.0-15.0 [facility] Comment on above: Performed By: #### L 100.0100, L501.9985, L500.4050, L501.2300, L501.9520, L300.3900, L501.5200 ####[facility] [address] [place], [address] IG% 0.200 Normal 0.0-0.9 [facility] Comment on above: Result Comment: IG% - Immature Granulocytes (promyelocytes, myelocytes andmetamyelocytes) > 1% indicates that a LEFT SHIFT is Present. Performed By: #### L 100.0100, L501.9985, L500.4050, L501.2300, L501.9520, L300.3900, L501.5200 ####[facility] [address] [place], [address] Lymphocytes/100 WBC (Bld) 27.1 % Normal 19-41 [facility] Comment on above: Performed By: #### L 100.0100, L501.9985, L500.4050, L501.2300, L501.9520, L300.3900, L501.5200 ####[facility] [address] [place], [address] MCH (RBC) [Entitic mass] 27.5 pg Normal 27.0-32.0 [facility] Comment on above: Performed By: #### L 100.0100, L501.9985, L500.4050, L501.2300, L501.9520, L300.3900, L501.5200 ####[facility] [address] [place], [address] MCHC (RBC) [Mass/Vol] 32.4 g/dL Normal 32-36 [facility] Comment on above: Performed By: #### L 100.0100, L501.9985, L500.4050, L501.2300, L501.9520, L300.3900, L501.5200 ####[facility] [address] [place], [address] MCV (RBC) [Entitic vol] 84.8 fL Normal 81-99 [facility] Comment on above: Performed By: #### L 100.0100, L501.9985, L500.4050, L501.2300, L501.9520, L300.3900, L501.5200 ####[facility] [address] [place], [address] Monocytes/100 WBC (Bld) 8.6 % Normal 0-10 [facility] Comment on above: Performed By: #### L 100.0100, L501.9985, L500.4050, L501.2300, L501.9520, L300.3900, L501.5200 ####[facility] [address] [place], [address] Neutrophils/100 WBC (Bld) 62.9 % Normal 47-70 [facility] Comment on above: Performed By: #### L 100.0100, L501.9985, L500.4050, L501.2300, L501.9520, L300.3900, L501.5200 ####[facility] [address] [place], [address] Nucleated RBC (Bld) [#/Vol] 0 10*3/uL Normal 0-5 [facility] Comment on above: Performed By: #### L 100.0100, L501.9985, L500.4050, L501.2300, L501.9520, L300.3900, L501.5200 ####[facility] [address] [place], [address] Platelet mean volume (Bld) [Entitic vol] 11.8 fL Normal 6.2-12.0 [facility] Comment on above: Performed By: #### L 100.0100, L501.9985, L500.4050, L501.2300, L501.9520, L300.3900, L501.5200 ####[facility] [address] [place], [address] Platelets (Bld) [#/Vol] 141 10*3/uL Low 150-450 [facility] Comment on above: Performed By: #### L 100.0100, L501.9985, L500.4050, L501.2300, L501.9520, L300.3900, L501.5200 ####[facility] [address] [place], [address] RBC (Bld) [#/Vol] 3.89 10*6/uL Low 4.2-5.4 [facility] Comment on above: Performed By: #### L 100.0100, L501.9985, L500.4050, L501.2300, L501.9520, L300.3900, L501.5200 ####[facility] [address] [place], [address] RDW SD 45.3 fl High 35.1-43.9 [facility] Comment on above: Performed By: #### L 100.0100, L501.9985, L500.4050, L501.2300, L501.9520, L300.3900, L501.5200 ####[facility] [address] [place], [address] WBC (Bld) [#/Vol] 5.1 10*3/uL Normal 4.4-11.0 [facility] Comment on above: Performed By: #### L 100.0100, L501.9985, L500.4050, L501.2300, L501.9520, L300.3900, L501.5200 ####[facility] [address] [place], [address] Chest without Contraston Chest without Contrast Normal [facility] Clarity (U)Ordered By: South Salmon on 05-16-2024 Urine clarity Clear Clear [facility] Color (U)Ordered By: South jaeger on 05-16-2024 Urine color determination Yellow Yellow [facility] Comprehensive Metabolic Prof ilon 05-16-2024 Albumin [Mass/Vol] 3.4 g/dL Normal 3.4-4.8 [facility] Comment on above: Performed By: #### L 100.0100, L501.9985, L500.4050, L501.2300, L501.9520, L300.3900, L501.5200 ####[facility] [address] [place], [address] Albumin/Globulin [Mass ratio] 1.0 {ratio} Normal 0.9-2.4 [facility] Comment on above: Performed By: #### L 100.0100, L501.9985, L500.4050, L501.2300, L501.9520, L300.3900, L501.5200 ####[facility] [address] [place], [address] ALK PHOS 62 U/L Normal 35-104 [facility] Comment on above: Performed By: #### L 100.0100, L501.9985, L500.4050, L501.2300, L501.9520, L300.3900, L501.5200 ####[facility] [address] [place], [place], [phone] ALT [Catalytic activity/Vol] 22 U/L Normal <=34 [facility] Comment on above: Performed By: #### L 100.0100, L501.9985, L500.4050, L501.2300, L501.9520, L300.3900, L501.5200 ####[facility] [address] [place], [place], [phone] AST [Catalytic activity/Vol] 45 U/L High <=31 [facility] Comment on above: Performed By: #### L 100.0100, L501.9985, L500.4050, L501.2300, L501.9520, L300.3900, L501.5200 ####[facility] [address] [place], [place], [phone] Bilirubin [Mass/Vol] 0.49 mg/dL Normal 0.00-1.30 [facility] Comment on above: Performed By: #### L 100.0100, L501.9985, L500.4050, L501.2300, L501.9520, L300.3900, L501.5200 ####[facility] [address] [place], [place], [phone] BUN/CRE 19.7 RATIO Normal 10-20 [facility] Comment on above: Performed By: #### L 100.0100, L501.9985, L500.4050, L501.2300, L501.9520, L300.3900, L501.5200 ####[facility] [address] [place], [address] Calcium [Mass/Vol] 8.9 mg/dL Normal 7.6-11.0 [facility] Comment on above: Performed By: #### L 100.0100, L501.9985, L500.4050, L501.2300, L501.9520, L300.3900, L501.5200 ####[facility] [address] [place], [address] Chloride [Moles/Vol] 103 mmol/L Normal 98-108 [facility] Comment on above: Performed By: #### L 100.0100, L501.9985, L500.4050, L501.2300, L501.9520, L300.3900, L501.5200 ####[facility] [address] [place], [address] CO2 [Moles/Vol] 20.5 mmol/L Low 21.0-32.0 [facility] Comment on above: Performed By: #### L 100.0100, L501.9985, L500.4050, L501.2300, L501.9520, L300.3900, L501.5200 ####[facility] [address] [place], [address] Creatinine [Mass/Vol] 0.97 mg/dL Normal 0.70-1.20 [facility] Comment on above: Performed By: #### L 100.0100, L501.9985, L500.4050, L501.2300, L501.9520, L300.3900, L501.5200 ####[facility] [address] [place], [address] ECRCL 54.29 ml/min Normal 50-250 [facility] Comment on above: Performed By: #### L 100.0100, L501.9985, L500.4050, L501.2300, L501.9520, L300.3900, L501.5200 ####[facility] [address] [place], [address] GAP 13 Normal 5-15 [facility] Comment on above: Performed By: #### L 100.0100, L501.9985, L500.4050, L501.2300, L501.9520, L300.3900, L501.5200 ####[facility] [address] [place], [address] GFR/1.73 sq M.predicted among non-blacks MDRD (S/P/Bld) [Vol rate/Area] 60 mL/min/{1.73_m2} Normal >60 [facility] Comment on above: Result Comment: mL/m in/1.73m2 CKD-EPI Creatinine Equation (2020) Performed By: #### L 100.0100, L501.9985, L500.4050, L501.2300, L501.9520, L300.3900, L501.5200 ####[facility] [address] [place], [place], [phone] Globulin (S) [Mass/Vol] 3.3 g/dL Normal 2.2-4.2 [facility] Comment on above: Performed By: #### L 100.0100, L501.9985, L500.4050, L501.2300, L501.9520, L300.3900, L501.5200 ####[facility] [address] [place], [address] Glucose [Mass/Vol] 157 mg/dL High 70-99 [facility] Comment on above: Performed By: #### L 100.0100, L501.9985, L500.4050, L501.2300, L501.9520, L300.3900, L501.5200 ####[facility] [address] [place], [address] Potassium [Moles/Vol] 3.9 mmol/L Normal 3.3-5.1 [facility] Comment on above: Performed By: #### L 100.0100, L501.9985, L500.4050, L501.2300, L501.9520, L300.3900, L501.5200 ####[facility] [address] [place], [address] Sodium [Moles/Vol] 137 mmol/L Normal 133-145 [facility] Comment on above: Performed By: #### L 100.0100, L501.9985, L500.4050, L501.2300, L501.9520, L300.3900, L501.5200 ####[facility] [address] [place], [address] T PROT 6.7 g/dL Normal 5.9-8.4 [facility] Comment on above: Performed By: #### L 100.0100, L501.9985, L500.4050, L501.2300, L501.9520, L300.3900, L501.5200 ####[facility] [address] [place], [address] Urea nitrogen [Mass/Vol] 19 mg/dL Normal 4-19 [facility] Comment on above: Performed By: #### L 100.0100, L501.9985, L500.4050, L501.2300, L501.9520, L300.3900, L501.5200 ####[facility] [address] [place], [address] EGD Reporton 05-16-2024 EGD Report Normal [facility] Epithelial cells.squamous LM Ql (Urine sed)Ordered By: South Salmon on 05-16-2024 Epithelial cells.squamous LM.HPF (Urine sed) [#/Area] 0 /[HPF] 5-10 [facility] Ferritinon 05-16-2024 Ferritin [Mass/Vol] 247 ng/mL Normal 22-378 [facility] Comment on above: Performed By: #### L 503.6030, L503.6550 ####[facility] [address] [place], [place], [phone] Glucose Ql (U)Ordered By: Tobias Salmon on 05-16-2024 Urine Glucose (UA) Normal mg/dl Normal [facility] HbA1c (Bld) [Mass fraction]O rdered By: South Salmon on 05-16-2024 Hemoglobin A1c percentage 8.0 % >5.7 [facility] Hemoglobin A1con 05-16-2024 HbA1c (Bld) [Mass fraction] 8.0 % Normal <=5.6 [facility] Comment on above: Performed By: #### L 100.0100, L501.9985, L500.4050, L501.2300, L501.9520, L300.3900, L501.5200 ####[facility] [address] [place], [place], [phone] Hemoglobin A1c percentageOrd ered By: South Salmon on 05-16-2024 HbA1c (Bld) [Mass fraction] 8.0 % >5.7 [facility] International normalized rat io (INR) calculationOrdered By: South Salmon on 05-16-2024 INR Coag (Bld) [Relative time] 1.6 {INR} [facility] International normalized ratio (INR) calculation 1.6 [facility] Iron+Iron Binding Capacityon 05-16-2024 TIBC 232 ug/dL Low 250-450 [facility] Comment on above: Performed By: #### L 503.6030, L503.6550 ####[facility] [address] [place], [place], [phone] Ketones Test strip Ql (U)Ord ered By: South Salmon on 05-16-2024 Ketones Ql (U) Negative Negative [facility] Laboratory - Chemistry and C hemistry - challengeOrdered By: South Salmon on 05-16-2024 AST [Catalytic activity/Vol] 45 U/L High <32 [facility] MR/CON.PCM.GIon 05-16-2024 MR/CON.PCM.GI Normal [facility] MR/POSTOP.ANEon 05-16-2024 MR/POSTOP.ANE Normal [facility] MR/RIUPCAEU9tf 05-16-2024 MR/POSTOPAN2 Normal [facility] Magnesiumon 05-16-2024 Magnesium [Mass/Vol] 1.8 mg/dL Normal 1.5-2.2 [facility] Comment on above: Performed By: #### L 100.0100, L501.9985, L500.4050, L501.2300, L501.9520, L300.3900, L501.5200 ####[facility] [address] [place], [place], [address] Microscopic analysis of urin e for red blood cells (RBC)Ordered By: South Salmon on 05-16-2024 Urine RBC 0 SEEN /hpf 0-5 [facility] Mucus LM Ql (Urine sed)Order ed By: South Salmon on 05-16-2024 Mucus Ql (Urine sed) 0 SEEN /hpf [facility] Nitrite Test strip Ql (U)Ord ered By: South Salmon on 05-16-2024 Nitrite Ql (U) Negative Negative [facility] No Panel InformationOrdered By: South Salmon on 05-16-2024 45 U/L High <32 [facility] Phosphoruson 05-16-2024 Phosphate [Mass/Vol] 2.5 mg/dL Low 2.7-4.5 [facility] Comment on above: Performed By: #### L 100.0100, L501.9985, L500.4050, L501.2300, L501.9520, L300.3900, L501.5200 ####[facility] [address] [place], [place], [address] Protein Test strip Ql (U)Ord ered By: South Salmon on 05-16-2024 Protein Ql (U) Negative Negative [facility] Prothrombin Time w/INRon INR Coag (PPP) [Relative time] 1.6 {INR} Normal [facility] Comment on above: Performed By: #### L 100.0100, L501.9985, L500.4050, L501.2300, L501.9520, L300.3900, L501.5200 ####[facility] [address] [place], [address] PT Coag (PPP) [Time] 19.0 s High 11.7-14.9 [facility] Comment on above: Performed By: #### L 100.0100, L501.9985, L500.4050, L501.2300, L501.9520, L300.3900, L501.5200 ####[facility] [address] [place], [place], [phone] Prothrombin timeOrdered By: South Salmon on 05-16-2024 PT Coag (PPP) [Time] 19.0 s High 11.7-14.9 [facility] Prothrombin time 19.0 SECONDS High 11.7-14.9 [facility] Serum globulin measurementOr dered By: South Salmon on 05-16-2024 Globulin (S) [Mass/Vol] 3.3 g/dL 2.2-4.2 [facility] Serum globulin measurement 3.3 g/dL 2.2-4.2 [facility] Serum or plasma alanine marcum otransferase (ALT) measurementOrdered By: South Salmon on 05-16-2024 ALT [Catalytic activity/Vol] 22 U/L <35 [facility] Serum or plasma albumin sebastián urement (mass/volume)Ordered By: South Salmon on 05-16-2024 Albumin [Mass/Vol] 3.4 g/dL 3.4-4.8 [facility] Serum or plasma albumin/glob ulin mass ratioOrdered By: South Salmno on 05-16-2024 Albumin/Globulin [Mass ratio] 1.0 {ratio} 0.9-2.4 [facility] Serum or plasma alkaline mahamed sphatase measurementOrdered By: South Salmon on 05-16-2024 ALP [Catalytic activity/Vol] 62 U/L 35-104 [facility] Specific gravity (U) [Rel de nsity]Ordered By: South Salmon on 05-16-2024 Urine specific gravity measurement 1.015 1.002-1.030 [facility] Squamous epithelial cells de tection in urine sediment by light microscopyOrdered By: South Salmon on 05-16-2024 Epithelial cells.squamous LM Ql (Urine sed) 0 SEEN /hpf 5-10 [facility] TSH DL <= 0.005 mIU/L QnOrde red By: South Salmon on 05-16-2024 Thyroid Stimulating Hormone (TSH) 1.170 uIU/mL 0.300-4.200 [facility] TSH Qn 1.170 uIU/mL 0.300-4.200 [facility] Serum or plasma thyroid stimulating hormone (TSH) measurement by high sensitivity met 1.170 uIU/mL 0.300-4.200 [facility] Thyroid Stim Hormone (TSH)on 05-16-2024 TSH 1.170 uIU/mL Normal 0.300-4.200 [facility] Comment on above: Performed By: #### L 100.0100, L501.9985, L500.4050, L501.2300, L501.9520, L300.3900, L501.5200 ####[facility] [address] [place], [place], [phone] Total proteinOrdered By: Rashid Salmon on 05-16-2024 Protein [Mass/Vol] 6.7 g/dL 5.9-8.4 [facility] Total protein 6.7 g/dL 5.9-8.4 [facility] Urinalysis, Completeon 05-16 RBC 0 SEEN Normal 0-5 [facility] Comment on above: Order Comment: COLLE CTOR TO SPECIFY Performed By: #### L 400.0001 ####[facility] [address] [place], [address] Urine blood detectionOrdered By: Sotuh Salmon on 05-16-2024 Urine Occult Blood Negative Negative [facility] Urine clarityOrdered By: Rashid Salmon on 05-16-2024 Clarity (U) Clear Clear [facility] Urine color determinationOrd ered By: South Salmon on 05-16-2024 Color (U) Yellow Yellow [facility] Urine glucose detectionOrder ed By: South Salmon on 05-16-2024 Glucose Ql (U) Normal mg/dl Normal [facility] Urine glucose detection Normal mg/dl Normal [facility] Urine leukocyte esterase det ection by dipstickOrdered By: South Salmon on 05-16-2024 Leukocyte esterase Test strip Ql (U) Negative Negative [facility] Urine pHOrdered By: Suoth perez on 05-16-2024 pH (U) 6.0 [pH] 5.0 - 8.0 [facility] Urine sediment bacteria coun t by microscopy (number/high power field)Ordered By: South Salmon on 05-16-2024 Bacteria LM.HPF (Urine sed) [#/Area] 0 /[HPF] None Seen [facility] Urine specific gravity measu rementOrdered By: South Salmon on 05-16-2024 Specific gravity (U) [Rel density] 1.015 1.002-1.030 [facility] Urine total bilirubin detect ion by test stripOrdered By: South Salmon on 05-16-2024 Urine total bilirubin detection by test strip Negative Negative [facility] Urine urobilinogen measureme ntOrdered By: South Salmon on 05-16-2024 Urobilinogen Ql (U) Normal mg/dl Normal [facility] Urobilinogen Ql (U)Ordered B y: South Salmon on 05-16-2024 Urine Urobilinogen Normal mg/dl Normal [facility] White blood cell countOrdere d By: South Salmon on 05-16-2024 Urine WBC 0 SEEN /hpf 0-5 [facility] White blood cell count 0 SEEN /hpf 0-5 [facility] White blood cell count 0 SEEN /hpf [facility] pH (U)Ordered By: South thomas on 05-16-2024 Urine pH 6.0 5.0 - 8.0 [facility] 12 Lead EKGon 05-15-2024 12 Lead EKG Normal [facility] Absolute neutrophil countOrd ered By: Gallito Roberson on 05-15-2024 Neutrophils (Bld) [#/Vol] 4.8 10*3/uL 2.0-7.7 [facility] Anion gap in Serum or Plasma Ordered By: Gallito Roberson on 05-15-2024 Anion gap [Moles/Vol] 13 mmol/L 5-15 [facility] BUN/creatinine ratioOrdered By: Gallito Roberson on 05-15-2024 Urea nitrogen/Creatinine [Mass ratio] 22.1 mg/mg High 10-20 [facility] Basophil percentageOrdered B y: Gallito Roberson on 05-15-2024 Basophils/100 WBC (Bld) 0.3 % 0-1 [facility] Bilirubin, totalOrdered By: Gallito Roberson on 05-15-2024 Bilirubin [Mass/Vol] 0.67 mg/dL 0.00-1.30 [facility] CBC W/Diff, Automatedon 05-05 Absolute Lymph 1.55 X10 3/uL Normal 0.83-4.51 [facility] Comment on above: Performed By: #### L 100.0100, L500.4050 ####[facility] [address] [place], [address] Absolute Neut 4.8 X10 3/uL Normal 2.0-7.7 [facility] Comment on above: Performed By: #### L 100.0100, L500.4050 ####[facility] [address] [place], [address] Basophils/100 WBC (Bld) 0.3 % Normal 0-1 [facility] Comment on above: Performed By: #### L 100.0100, L500.4050 ####[facility] [address] [place], [address] Eosinophils/100 WBC (Bld) 0.1 % Normal 0-5 [facility] Comment on above: Performed By: #### L 100.0100, L500.4050 ####[facility] [address] [place], [address] Erythrocyte distribution width (RBC) [Ratio] 14.6 % Normal 11.6-14.6 [facility] Comment on above: Performed By: #### L 100.0100, L500.4050 ####[facility] [address] [place], [address] Hematocrit (Bld) [Volume fraction] 35.3 % Low 37-47 [facility] Comment on above: Performed By: #### L 100.0100, L500.4050 ####[facility] [address] [place], [address] Hemoglobin (Bld) [Mass/Vol] 11.5 g/dL Low 12.0-15.0 [facility] Comment on above: Performed By: #### L 100.0100, L500.4050 ####[facility] [address] [place], [address] IG% 0.400 Normal 0.0-0.9 [facility] Comment on above: Result Comment: IG% - Immature Granulocytes (promyelocytes, myelocytes andmetamyelocytes) > 1% indicates that a LEFT SHIFT is Present. Performed By: #### L 100.0100, L500.4050 ####[facility] [address] [place], [address] Lymphocytes/100 WBC (Bld) 21.6 % Normal 19-41 [facility] Comment on above: Performed By: #### L 100.0100, L500.4050 ####[facility] [address] [place], [address] MCH (RBC) [Entitic mass] 27.6 pg Normal 27.0-32.0 [facility] Comment on above: Performed By: #### L 100.0100, L500.4050 ####[facility] [address] [place], [address] MCHC (RBC) [Mass/Vol] 32.6 g/dL Normal 32-36 [facility] Comment on above: Performed By: #### L 100.0100, L500.4050 ####[facility] [address] [place], [address] MCV (RBC) [Entitic vol] 84.9 fL Normal 81-99 [facility] Comment on above: Performed By: #### L 100.0100, L500.4050 ####[facility] [address] [place], [address] Monocytes/100 WBC (Bld) 10.2 % High 0-10 [facility] Comment on above: Performed By: #### L 100.0100, L500.4050 ####[facility] [address] [place], [address] Neutrophils/100 WBC (Bld) 67.4 % Normal 47-70 [facility] Comment on above: Performed By: #### L 100.0100, L500.4050 ####[facility] [address] [place], [address] Nucleated RBC (Bld) [#/Vol] 0 10*3/uL Normal 0-5 [facility] Comment on above: Performed By: #### L 100.0100, L500.4050 ####[facility] [address] [place], [address] Platelet mean volume (Bld) [Entitic vol] 11.4 fL Normal 6.2-12.0 [facility] Comment on above: Performed By: #### L 100.0100, L500.4050 ####[facility] [address] [place], [address] Platelets (Bld) [#/Vol] 154 10*3/uL Normal 150-450 [facility] Comment on above: Performed By: #### L 100.0100, L500.4050 ####[facility] [address] [place], [address] RBC (Bld) [#/Vol] 4.16 10*6/uL Low 4.2-5.4 [facility] Comment on above: Performed By: #### L 100.0100, L500.4050 ####[facility] [address] [place], [address] RDW SD 45.5 fl High 35.1-43.9 [facility] Comment on above: Performed By: #### L 100.0100, L500.4050 ####[facility] [address] [place], [address] WBC (Bld) [#/Vol] 7.2 10*3/uL Normal 4.4-11.0 [facility] Comment on above: Performed By: #### L 100.0100, L500.4050 ####[facility] [address] [place], [address] Calculated total iron bindin g capacityOrdered By: South Salmon on 05-15-2024 Total Iron Binding Capacity 232 ug/dL Low 250-450 [facility] Calculated total iron binding capacity 232 ug/dL Low 250-450 [facility] Carbon dioxide, total [Moles /volume] in Central venous bloodOrdered By: Gallito Roberson on 05-15-2024 CO2 [Moles/Vol] 21.2 mmol/L 21.0-32.0 [facility] Chloride assayOrdered By: Marcos Roberson on 05-15-2024 Chloride [Moles/Vol] 100 mmol/L 98-108 [facility] Comprehensive Metabolic Prof ilon 05-15-2024 Albumin [Mass/Vol] 3.6 g/dL Normal 3.4-4.8 [facility] Comment on above: Performed By: #### L 100.0100, L500.4050 ####[facility] [address] [place], [address] Albumin/Globulin [Mass ratio] 1.0 {ratio} Normal 0.9-2.4 [facility] Comment on above: Performed By: #### L 100.0100, L500.4050 ####[facility] [address] [place], [address] ALK PHOS 68 U/L Normal 35-104 [facility] Comment on above: Performed By: #### L 100.0100, L500.4050 ####[facility] [address] [place], [address] ALT [Catalytic activity/Vol] 26 U/L Normal <=34 [facility] Comment on above: Performed By: #### L 100.0100, L500.4050 ####[facility] [address] [place], [address] AST [Catalytic activity/Vol] 52 U/L High <=31 [facility] Comment on above: Performed By: #### L 100.0100, L500.4050 ####[facility] [address] [place], [address] Bilirubin [Mass/Vol] 0.67 mg/dL Normal 0.00-1.30 [facility] Comment on above: Performed By: #### L 100.0100, L500.4050 ####[facility] [address] [place], [address] BUN/CRE 22.1 RATIO High 10-20 [facility] Comment on above: Performed By: #### L 100.0100, L500.4050 ####[facility] [address] [place], [address] Calcium [Mass/Vol] 9.2 mg/dL Normal 7.6-11.0 [facility] Comment on above: Performed By: #### L 100.0100, L500.4050 ####[facility] [address] [place], [address] Chloride [Moles/Vol] 100 mmol/L Normal 98-108 [facility] Comment on above: Performed By: #### L 100.0100, L500.4050 ####[facility] [address] [place], [address] CO2 [Moles/Vol] 21.2 mmol/L Normal 21.0-32.0 [facility] Comment on above: Performed By: #### L 100.0100, L500.4050 ####[facility] [address] [place], [address] Creatinine [Mass/Vol] 1.23 mg/dL High 0.70-1.20 [facility] Comment on above: Performed By: #### L 100.0100, L500.4050 ####[facility] [address] [place], [address] ECRCL 42.94 ml/min Low 50-250 [facility] Comment on above: Performed By: #### L 100.0100, L500.4050 ####[facility] [address] [place], [address] GAP 13 Normal 5-15 [facility] Comment on above: Performed By: #### L 100.0100, L500.4050 ####[facility] [address] [place], [address] GFR/1.73 sq M.predicted among non-blacks MDRD (S/P/Bld) [Vol rate/Area] 46 mL/min/{1.73_m2} Low >60 [facility] Comment on above: Result Comment: mL/m in/1.73m2 CKD-EPI Creatinine Equation (2020) Performed By: #### L 100.0100, L500.4050 ####[facility] [address] [place], [address] Globulin (S) [Mass/Vol] 3.5 g/dL Normal 2.2-4.2 [facility] Comment on above: Performed By: #### L 100.0100, L500.4050 ####[facility] [address] [place], [address] Glucose [Mass/Vol] 222 mg/dL High 70-99 [facility] Comment on above: Performed By: #### L 100.0100, L500.4050 ####[facility] [address] [place], [address] Potassium [Moles/Vol] 3.8 mmol/L Normal 3.3-5.1 [facility] Comment on above: Performed By: #### L 100.0100, L500.4050 ####[facility] [facility] [address] [place], [address] Sodium [Moles/Vol] 135 mmol/L Normal 133-145 [facility] Comment on above: Performed By: #### L 100.0100, L500.4050 ####[facility] [address] [place], [address] T PROT 7.1 g/dL Normal 5.9-8.4 [facility] Comment on above: Performed By: #### L 100.0100, L500.4050 ####[facility] [address] [place], [address] Urea nitrogen [Mass/Vol] 27 mg/dL High 4-19 [facility] Comment on above: Performed By: #### L 100.0100, L500.4050 ####[facility] [address] [place], [address] Emergency Department Summary on 05-15-2024 Emergency Department Summary Normal [facility] Eosinophil percentageOrdered By: Gallito Roberson on 05-15-2024 Eosinophils/100 WBC (Bld) 0.1 % 0-5 [facility] Erythrocyte distribution wid th ratioOrdered By: Gallito Roberson on 05-15-2024 Erythrocyte distribution width (RBC) [Ratio] 14.6 % 11.6-14.6 [facility] Erythrocyte distribution wid th standard deviationOrdered By: Gallito Roberson on 05-15-2024 Erythrocyte distribution width (RBC) [Entitic vol] 45.5 fL High 35.1-43.9 [facility] Estimation of creatinine stefani aranceOrdered By: Gallito Roberson on 05-15-2024 Estimated Creatinine Clearance Calc 42.94 ml/min Low 50-250 [facility] Ferritin [Mass/Vol]Ordered B y: [place] on 05-15-2024 Serum or plasma ferritin measurement (mass/volume) 247 ng/mL 22-378 [facility] GFR/1.73 sq M.predicted killian g non-blacks MDRD (S/P/Bld) [Vol rate/Area]Ordered By: Gallito Roberson on 05-15-2024 Estimated GFR (MDRD) Non-Af Amer 46 Low >60 [facility] Comment on above: mL/min/1.73m2 CKD-EP I Creatinine Equation (2020) H AND P Exam - [facility] 05-15-2024 H&P Exam - Hospitalist Normal [facility] Hematocrit Auto (Bld) [Volum e fraction]Ordered By: Gallito Roberson on 05-15-2024 Hematocrit (Bld) [Volume fraction] 35.3 % Low 37-47 [facility] Hemoglobin measurementOrdere d By: Gallito Roberson on 05-15-2024 Hemoglobin (Bld) [Mass/Vol] 11.5 g/dL Low 12.0-15.0 [facility] Immature granulocytes/100 WB C Auto (Bld)Ordered By: Gallito Roberson on 05-15-2024 Immature granulocytes/100 WBC (Bld) 0.400 % 0.0-0.9 [facility] Comment on above: IG% - Immature Granu locytes (promyelocytes, myelocytes and metamyelocytes) > 1% indicates that a LEFT SHIFT is Present. International normalized rat io (INR) calculationOrdered By: Gallito Roberson on 05-15-2024 INR Coag (Bld) [Relative time] 1.7 {INR} [facility] Iron (Unsp spec) [Mass/Mass] Ordered By: [place] on 05-15-2024 Iron [Mass/Vol] 15 ug/dL Low 50-170 [facility] Iron measurement (mass/mass) 15 ug/dL Low 50-170 [facility] Iron measurement (mass/mass) Ordered By: [place] on 05-15-2024 Iron (Unsp spec) [Mass/Mass] 15 ug/dL Low 50-170 [facility] Iron saturation [Mass fracti on]Ordered By: [place] on 05-15-2024 Iron Saturation 6.5 % Low 13-59 [facility] Comment on above: Previous reported re sult: 7.0 %Edited by: LUZ ELENA on 05/16/24:0101 AMENDED REPORT 05/16/24 0101 IRON SATURATION previously reported as: 7.0 L % Serum or plasma iron saturation measurement (mass fraction) 6.5 % Low 13-59 [facility] Laboratory - Chemistry and C hemistry - challengeOrdered By: Gallito Roberson on 05-15-2024 AST [Catalytic activity/Vol] 52 U/L High <32 [facility] Lower GI hemoglobin IA Ql (S tl)Ordered By: Gallito Roberson on 05-15-2024 Stool Occult Blood (MANDY) [facility] Lymphocytes Auto (Unsp spec) [#/Vol]Ordered By: Gallito Roberson on 05-15-2024 Lymphocytes (Bld) [#/Vol] 1.55 10*3/uL 0.83-4.51 [facility] Lymphocytes/100 WBC Auto (Un sp spec)Ordered By: Gallito Roberson on 05-15-2024 Lymphocytes/100 WBC (Bld) 21.6 % 19-41 [facility] MCV (mean corpuscular volume ) determinationOrdered By: Gallito Roberson on 05-15-2024 MCV (RBC) [Entitic vol] 84.9 fL 81-99 [facility] Mean corpuscular hemoglobin (MCH) determinationOrdered By: Gallito Roberson on 05-15-2024 MCH (RBC) [Entitic mass] 27.6 pg 27.0-32.0 [facility] Mean corpuscular hemoglobin concentration (MCHC) determinationOrdered By: Gallito Roberson on 05-15-2024 MCHC (RBC) [Mass/Vol] 32.6 g/dL 32-36 [facility] Mean platelet volume determi nationOrdered By: Gallito Roberson on 05-15-2024 Platelet mean volume (Bld) [Entitic vol] 11.4 fL 6.2-12.0 [facility] Monocyte percentageOrdered B y: Gallito Roberson on 05-15-2024 Monocytes/100 WBC (Bld) 10.2 % High 0-10 [facility] Neutrophil percentageOrdered By: Gallito Roberson on 05-15-2024 Neutrophils/100 WBC (Bld) 67.4 % 47-70 [facility] No Panel InformationOrdered By: [place] on 05-15-2024 Unsaturated Iron Binding Capacity 217 ug/dL Low 228-428 [facility] 217 ug/dL Low 228-428 [facility] Nucleated red blood cell per centageOrdered By: Gallito Roberson on 05-15-2024 Nucleated RBC/100 WBC (Bld) [Ratio] 0 % 0-5 [facility] Platelet countOrdered By: Marcos Roberson on 05-15-2024 Platelets (Bld) [#/Vol] 154 10*3/uL 150-450 [facility] Potassium (Unsp spec) [Mass/ Vol]Ordered By: Gallito Roberson on 05-15-2024 Potassium [Moles/Vol] 3.8 mmol/L 3.3-5.1 [facility] Prothrombin Time w/INRon INR Coag (PPP) [Relative time] 1.7 {INR} Normal [facility] Comment on above: Performed By: #### L 797.3218 ####[facility] [address] [place], [place], [address] PT Coag (PPP) [Time] 19.9 s High 11.7-14.9 [facility] Comment on above: Performed By: #### L 300.3900 ####[facility] [address] [place], [place], [id number] Prothrombin timeOrdered By: Gallito Roberson on 05-15-2024 PT Coag (PPP) [Time] 19.9 s High 11.7-14.9 [facility] RBC Auto (Bld) [#/Vol]Ordere d By: Gallito Roberson on 05-15-2024 RBC (Bld) [#/Vol] 4.16 10*6/uL Low 4.2-5.4 [facility] Serum creatinine measurement (mass/volume)Ordered By: Gallito Roberson on 05-15-2024 Creatinine [Mass/Vol] 1.23 mg/dL High 0.70-1.20 [facility] Serum globulin measurementOr dered By: Gallito Roberson on 05-15-2024 Globulin (S) [Mass/Vol] 3.5 g/dL 2.2-4.2 [facility] Serum glucose measurement (m ass/volume)Ordered By: Gallito Roberson on 05-15-2024 Glucose [Mass/Vol] 222 mg/dL High 70-99 [facility] Serum or plasma alanine marcum otransferase (ALT) measurementOrdered By: Gallito Roberson on 05-15-2024 ALT [Catalytic activity/Vol] 26 U/L <35 [facility] Serum or plasma albumin sebastián urement (mass/volume)Ordered By: Gallito Roberson on 05-15-2024 Albumin [Mass/Vol] 3.6 g/dL 3.4-4.8 [facility] Serum or plasma albumin/glob ulin mass ratioOrdered By: Gallito Roberson on 05-15-2024 Albumin/Globulin [Mass ratio] 1.0 {ratio} 0.9-2.4 [facility] Serum or plasma alkaline mahamed sphatase measurementOrdered By: Gallito Roberson on 05-15-2024 ALP [Catalytic activity/Vol] 68 U/L 35-104 [facility] Serum or plasma calcium sebastián urement (mass/volume)Ordered By: Gallito Roberson on 05-15-2024 Calcium [Mass/Vol] 9.2 mg/dL 7.6-11.0 [facility] Serum or plasma ferritin anahi surement (mass/volume)Ordered By: [place] on 05-15-2024 Ferritin [Mass/Vol] 247 ng/mL 22-378 [facility] Serum or plasma iron saturat ion measurement (mass fraction)Ordered By: [place] on 05-15-2024 Iron saturation [Mass fraction] 6.5 % Low 13-59 [facility] Serum or plasma urea nitroge n measurement (mass/volume)Ordered By: Gallito Roberson on 05-15-2024 Urea nitrogen [Mass/Vol] 27 mg/dL High 4-19 [facility] Sodium levelOrdered By: Gallito Roberson on 05-15-2024 Sodium [Moles/Vol] 135 mmol/L 133-145 [facility] Stool Occult Blood iFOBon STOB Negative Normal [facility] Comment on above: Performed By: #### Julio DODD, M100.7537 ####[facility] [address] [place], [place], [id number] Stool gastrointestinal hemog lobin detection by immunologic methodOrdered By: Gallito Roberson on 05-15-2024 Lower GI hemoglobin IA Ql (Stl) [facility] Total proteinOrdered By: Cj Roberson on 05-15-2024 Protein [Mass/Vol] 7.1 g/dL 5.9-8.4 [facility] Type AND Screenon Ab SCREEN GEL Negative Normal [facility] Comment on above: Order Comment: HGI Performed By: #### Julio DODD, M100.7900 ####[facility] [address] [place], [place], [id number] White blood cell (WBC) count Ordered By: Gallito Roberson on 05-15-2024 WBC (Bld) [#/Vol] 7.2 10*3/uL 4.4-11.0 [facility] ALP [Catalytic activity/Vol] Ordered By: Alexis Copeland on 05-14-2024 Serum or plasma alkaline phosphatase measurement 85 U/L 35-104 [facility] ALT [Catalytic activity/Vol] Ordered By: Alexis Copeland on 05-14-2024 Serum or plasma alanine aminotransferase (ALT) measurement 35 U/L <35 [facility] Albumin [Mass/Vol]Ordered By : Alexis Copeland on 05-14-2024 Serum or plasma albumin measurement (mass/volume) 3.9 g/dL 3.4-4.8 [facility] Albumin/Globulin [Mass ratio ]Ordered By: Alexis Copeland on 05-14-2024 Serum or plasma albumin/globulin mass ratio 1.1 RATIO 0.9-2.4 [facility] Anion gap [Moles/Vol]Ordered By: Alexis Copeland on 05-14-2024 Anion gap in Serum or Plasma 16 High -15 [facility] Anion gap in Serum or Plasma Ordered By: Alexis Copeland on 05-14-2024 Anion gap [Moles/Vol] 16 mmol/L High -15 [facility] BUN/creatinine ratioOrdered By: Alexis Copeland on 05-14-2024 Urea nitrogen/Creatinine [Mass ratio] 15.4 mg/mg 12-24 [facility] BUN/creatinine ratio 15.4 RATIO 12-24 [facility] Bilirubin, totalOrdered By: Alexis Copeland on 05-14-2024 Bilirubin [Mass/Vol] 0.65 mg/dL 0.00-1.30 [facility] Bilirubin, total 0.65 mg/dL 0.00-1.30 [facility] CBC-Complete Blood Cnt No Di ffon 05-14-2024 Erythrocyte distribution width (RBC) [Ratio] 14.1 % Normal 11.6-14.6 [facility] Comment on above: Performed By: #### L 501.4021, L100.0500, L501.2450, L500.4050 ####[facility] [address] [place], [address] Hematocrit (Bld) [Volume fraction] 35.7 % Low 37-47 [facility] Comment on above: Performed By: #### L 501.4021, L100.0500, L501.2450, L500.4050 ####[facility] [address] [place], [address] Hemoglobin (Bld) [Mass/Vol] 11.9 g/dL Low 12.0-15.0 [facility] Comment on above: Performed By: #### L 501.4021, L100.0500, L501.2450, L500.4050 ####[facility] [address] [place], [address] MCH (RBC) [Entitic mass] 28.1 pg Normal 27.0-32.0 [facility] Comment on above: Performed By: #### L 501.4021, L100.0500, L501.2450, L500.4050 ####[facility] [address] [place], [address] MCHC (RBC) [Mass/Vol] 33.3 g/dL Normal 32-36 [facility] Comment on above: Performed By: #### L 501.4021, L100.0500, L501.2450, L500.4050 ####[facility] [address] [place], [address] MCV (RBC) [Entitic vol] 84.2 fL Normal 81-99 [facility] Comment on above: Performed By: #### L 501.4021, L100.0500, L501.2450, L500.4050 ####[facility] [address] [place], [address] Platelet mean volume (Bld) [Entitic vol] 11.8 fL Normal 6.2-12.0 [facility] Comment on above: Performed By: #### L 501.4021, L100.0500, L501.2450, L500.4050 ####[facility] [address] [place], [address] Platelets (Bld) [#/Vol] 158 10*3/uL Normal 150-450 [facility] Comment on above: Performed By: #### L 501.4021, L100.0500, L501.2450, L500.4050 ####[facility] [address] [place], [address] RBC (Bld) [#/Vol] 4.24 10*6/uL Normal 4.2-5.4 [facility] Comment on above: Performed By: #### L 501.4021, L100.0500, L501.2450, L500.4050 ####[facility] [address] [place], [address] RDW SD 43.3 fl Normal 35.1-43.9 [facility] Comment on above: Performed By: #### L 501.4021, L100.0500, L501.2450, L500.4050 ####[facility] [address] [place], [address] WBC (Bld) [#/Vol] 7.6 10*3/uL Normal 4.4-11.0 [facility] Comment on above: Performed By: #### L 501.4021, L100.0500, L501.2450, L500.4050 ####[facility] [address] [place], [address] Calcium [Mass/Vol]Ordered By : Alexis Copeland on 05-14-2024 Serum or plasma calcium measurement (mass/volume) 9.4 mg/dL 7.6-11.0 [facility] Carbon dioxide, total [Moles /volume] in Central venous bloodOrdered By: Alexis Copeland on 05-14-2024 CO2 [Moles/Vol] 18.6 mmol/L Low 21.0-32.0 [facility] Carbon dioxide, total [Moles/volume] in Central venous blood 18.6 mmol/L Low 21.0-32.0 [facility] Chest 1 View (Portable)on Chest 1 View (Portable) Normal [facility] Chloride assayOrdered By: Mary Copeland on 05-14-2024 Chloride [Moles/Vol] 101 mmol/L 98-108 [facility] Chloride assay 101 mmol/L 98-108 [facility] Comprehensive Metabolic Prof ilon 05-14-2024 Albumin [Mass/Vol] 3.9 g/dL Normal 3.4-4.8 [facility] Comment on above: Performed By: #### L 501.4021, L100.0500, L501.2450, L500.4050 ####[facility] [address] [place], [address] Albumin/Globulin [Mass ratio] 1.1 {ratio} Normal 0.9-2.4 [facility] Comment on above: Performed By: #### L 501.4021, L100.0500, L501.2450, L500.4050 ####[facility] [address] [place], [address] ALK PHOS 85 U/L Normal 35-104 [facility] Comment on above: Performed By: #### L 501.4021, L100.0500, L501.2450, L500.4050 ####[facility] [address] [place], [address] ALT [Catalytic activity/Vol] 35 U/L Normal <=34 [facility] Comment on above: Performed By: #### L 501.4021, L100.0500, L501.2450, L500.4050 ####[facility] [address] [place], [address] AST [Catalytic activity/Vol] 75 U/L High <=31 [facility] Comment on above: Performed By: #### L 501.4021, L100.0500, L501.2450, L500.4050 ####[facility] [address] [place], [address] Bilirubin [Mass/Vol] 0.65 mg/dL Normal 0.00-1.30 [facility] Comment on above: Performed By: #### L 501.4021, L100.0500, L501.2450, L500.4050 ####[facility] [address] [place], [address] BUN/CRE 15.4 RATIO Normal 10-20 [facility] Comment on above: Performed By: #### L 501.4021, L100.0500, L501.2450, L500.4050 ####[facility] [address] [place], [address] Calcium [Mass/Vol] 9.4 mg/dL Normal 7.6-11.0 [facility] Comment on above: Performed By: #### L 501.4021, L100.0500, L501.2450, L500.4050 ####[facility] [address] [place], [address] Chloride [Moles/Vol] 101 mmol/L Normal 98-108 [facility] Comment on above: Performed By: #### L 501.4021, L100.0500, L501.2450, L500.4050 ####[facility] [address] [place], [address] CO2 [Moles/Vol] 18.6 mmol/L Low 21.0-32.0 [facility] Comment on above: Performed By: #### L 501.4021, L100.0500, L501.2450, L500.4050 ####[facility] [address] [place], [address] Creatinine [Mass/Vol] 1.09 mg/dL Normal 0.70-1.20 [facility] Comment on above: Performed By: #### L 501.4021, L100.0500, L501.2450, L500.4050 ####[facility] [address] [place], [address] ECRCL 49.64 ml/min Low 50-250 [facility] Comment on above: Performed By: #### L 501.4021, L100.0500, L501.2450, L500.4050 ####[facility] [address] [place], [address] GAP 16 High 5-15 [facility] Comment on above: Performed By: #### L 501.4021, L100.0500, L501.2450, L500.4050 ####[facility] [address] [place], [address] GFR/1.73 sq M.predicted among non-blacks MDRD (S/P/Bld) [Vol rate/Area] 53 mL/min/{1.73_m2} Low >60 [facility] Comment on above: Result Comment: mL/m in/1.73m2 CKD-EPI Creatinine Equation (2020) Performed By: #### L 501.4021, L100.0500, L501.2450, L500.4050 ####[facility] [address] [place], [address] Globulin (S) [Mass/Vol] 3.7 g/dL Normal 2.2-4.2 [facility] Comment on above: Performed By: #### L 501.4021, L100.0500, L501.2450, L500.4050 ####[facility] [address] [place], [address] Glucose [Mass/Vol] 212 mg/dL High 70-99 [facility] Comment on above: Performed By: #### L 501.4021, L100.0500, L501.2450, L500.4050 ####[facility] [address] [place], [address] Potassium [Moles/Vol] 4.4 mmol/L Normal 3.3-5.1 [facility] Comment on above: Performed By: #### L 501.4021, L100.0500, L501.2450, L500.4050 ####[facility] [address] [place], [address] Sodium [Moles/Vol] 135 mmol/L Normal 133-145 [facility] Comment on above: Performed By: #### L 501.4021, L100.0500, L501.2450, L500.4050 ####[facility] [address] [place], [address] T PROT 7.6 g/dL Normal 5.9-8.4 [facility] Comment on above: Performed By: #### L 501.4021, L100.0500, L501.2450, L500.4050 ####[facility] [address] [place], [address] Urea nitrogen [Mass/Vol] 17 mg/dL Normal 4-19 [facility] Comment on above: Performed By: #### L 501.4021, L100.0500, L501.2450, L500.4050 ####[facility] [address] [place], [address] Creatinine [Mass/Vol]Ordered By: Alexis Copeland on 05-14-2024 Serum creatinine measurement (mass/volume) 1.09 mg/dL 0.70-1.20 [facility] Duplex ultrasound of carotid artery reportOrdered By: Adonis Newman on 05-14-2024 Study report [facility] [address] [place] [address] Carotid Duplex Ultrasound 05/11/24 0802 MR#: [id number] Acct: [id number] Name: LAISHA WALKER Vickie Rep #:[id number] : 1950 74 From: Adonis Frankel Attending Dr: Dr. London Anna MD Status: REG CLI Ordering Dr: London Anna MD Date: 05/11/24 Location: [facility] Sex: F C Admitted: Reason For Study Reason For Study: Dizziness Rt. Velocities/BP Lt. Velocities/BP Prox CCA 76.8/14.5 cm/sec. Prox CCA 91.2/7.7 cm/sec. Mid CCA 74.9/23 cm/sec. Mid CCA 59.7/5.8 cm/sec. Dist CCA 73/23 cm/sec. Dist CCA 41.9/4.1 cm/sec. Prox ICA 94.9/31.1 cm/sec. Left ICA known occlusion. Mid ICA 141.2/46.8 cm/sec. Prox ECA 176.3/11.6 cm/sec. Dist ICA 149.9/38 cm/sec. Lt. Vert. 54.1/12.6 cm/sec. Rt. ICA/CCA = 2.00. Prox ECA 135.7 cm/sec. Rt. Vert. 54.4/13.9 cm/sec. Right Extracranial There is intimal thickening but no significant atherosclerotic plaque noted in the right common carotid artery. There is heterogeneous, irregular atherosclerotic plaque noted in the right internal carotid artery. There is heterogeneous, irregular atherosclerotic plaque noted in the right external carotid artery. Antegrade flow is noted in the right vertebral artery. Left Extracranial There is heterogeneous, irregular atherosclerotic plaque noted in the left common carotid artery. There is heterogeneous, irregular atherosclerotic plaque noted in the left internal carotid artery. The left internal carotid artery is occluded. There is heterogeneous, irregular atherosclerotic plaque noted in the left external carotid artery. Antegrade flow is noted in the left vertebral artery. Procedure Carotid Duplex [id number]. This is a Carotid Duplex examination using B-mode, color flow and specral Doppler. Exam performed in department. VL/Carotid Duplex Ultrasound Interpretation Summary Moderate (50-69%) stenosis right extracranial internal carotid. 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 Patent and antegrade vertebrals bilaterally. Ordering Physician: London Anna Referring Physician: MD Demarcus Flako Performed By: Vinicio Lunsford RVT 05/14/24840 Date _ Adonis Newman MD CC: Dr. Flako Tracy MD; Dr. London Anna MD ~ Date Dictated: 05/11/24801 Date Transcribed: 05/14/24840 Account Group Supervisor: Signed [facility] Work Phone: Erythrocyte distribution wid th (RBC) [Entitic vol]Ordered By: Alexis Copeland on 05-14-2024 Erythrocyte distribution width standard deviation 43.3 fl 35.1-43.9 [facility] Erythrocyte distribution wid th (RBC) [Ratio]Ordered By: Alexis Copeland on 05-14-2024 Erythrocyte distribution width ratio 14.1 % 11.6-14.6 [facility] Erythrocyte distribution wid th ratioOrdered By: Alexis Copeland on 05-14-2024 Erythrocyte distribution width (RBC) [Ratio] 14.1 % 11.6-14.6 [facility] Erythrocyte distribution wid th standard deviationOrdered By: Alexis Copeland on 05-14-2024 Erythrocyte distribution width (RBC) [Entitic vol] 43.3 fL 35.1-43.9 [facility] Erythrocyte distribution width (RBC) [Ratio] 43.3 fl 35.1-43.9 [facility] Estimation of creatinine stefani aranceOrdered By: Alexis Copeland on 05-14-2024 Estimated Creatinine Clearance Calc 49.64 ml/min Low 50-250 [facility] Estimation of creatinine clearance 49.64 ml/min Low 50-250 [facility] GFR/1.73 sq M.predicted killian g non-blacks MDRD (S/P/Bld) [Vol rate/Area]Ordered By: Alexis Copeland on 05-14-2024 Estimated GFR (MDRD) Non-Af Amer 53 Low >60 [facility] Comment on above: mL/min/1.73m2 CKD-EP I Creatinine Equation (2020) Glomerular filtration rate (GFR) estimation/1.73 sq m using serum, plasma, or whole b 53 Low >60 [facility] Glomerular filtration rate ( GFR) estimation/1.73 sq m using serum, plasma, or whole bOrdered By: Alexis Copeland on 05-14-2024 GFR/1.73 sq M.predicted among non-blacks MDRD (S/P/Bld) [Vol rate/Area] 53 mL/min/{1.73_m2} Low >60 [facility] Glucose [Mass/Vol]Ordered By : Alexis Copeland on 05-14-2024 Serum glucose measurement (mass/volume) 212 mg/dL High 70-99 [facility] Hematocrit Auto (Bld) [Volum e fraction]Ordered By: Alexis Copeland on 05-14-2024 Hematocrit (Bld) [Volume fraction] 35.7 % Low 37-47 [facility] Automated blood hematocrit (percentage) 35.7 % Low 37-47 [facility] Hemoglobin measurementOrdere d By: Alexis Copeland on 05-14-2024 Hemoglobin (Bld) [Mass/Vol] 11.9 g/dL Low 12.0-15.0 [facility] Hemoglobin measurement 11.9 g/dL Low 12.0-15.0 [facility] Influenza virus A and B and SARS-CoV-2 (COVID-19) and Respiratory syncytial virus RNAOrdered By: Alexis Copeland on 05-14-2024 SARS-CoV-2 (COVID-19) RNA COLE+probe Ql (Unsp spec) Influenzae A Abnormal [facility] Influenza virus A and B and SARS-CoV-2 (COVID-19) and Respiratory syncytial virus RNA Influenzae A Abnormal [facility] L501.4021on 05-14-2024 Trop T High Sen 14 ng/L Normal <=14 [facility] Comment on above: Performed By: #### L 501.4021, L100.0500, L501.2450, L500.4050 ####[facility] [id number] [place], [address] Laboratory - Chemistry and C hemistry - challengeOrdered By: Alexis Copeland on 05-14-2024 AST [Catalytic activity/Vol] 75 U/L High <32 [facility] Lipaseon 05-14-2024 Lipase [Catalytic activity/Vol] 66 U/L Normal 13-75 [facility] Comment on above: Result Comment: Marquise mcghee note:LIPASE revised reference range effective 22.New Lipase methodology. Expected to produce lower valuesthan the previous assay method.NEW Reference Range: 13 - 75 U/L Performed By: #### L 501.4021, L100.0500, L501.2450, L500.4050 ####[facility] [address] [place], [address] Lipase measurementOrdered By : Alexis Copeland on 05-14-2024 Lipase [Catalytic activity/Vol] 66 U/L 13-75 [facility] Comment on above: Please note:LIPASE r evised reference range effective 22. New Lipase methodology. Expected to produce lower values than the previous assay method. NEW Reference Range: 13 - 75 U/L Lipase measurement 66 U/L 13-75 [facility] M100.678on 05-14-2024 M100.678 Normal [facility] Comment on above: Performed By: #### M 100.678 ####[facility] [address] [place], [place], [id number] MCV (RBC) [Entitic vol]Order ed By: Alexis Copeland on 05-14-2024 MCV (mean corpuscular volume) determination 84.2 fL 81-99 [facility] MCV (mean corpuscular volume ) determinationOrdered By: Alexis Copeland on 05-14-2024 MCV (RBC) [Entitic vol] 84.2 fL 81-99 [facility] Mean corpuscular hemoglobin (MCH) determinationOrdered By: Alexis Copeland on 05-14-2024 MCH (RBC) [Entitic mass] 28.1 pg 27.0-32.0 [facility] Mean corpuscular hemoglobin (MCH) determination 28.1 pg 27.0-32.0 [facility] Mean corpuscular hemoglobin concentration (MCHC) determinationOrdered By: Alexis Copeland on 05-14-2024 MCHC (RBC) [Mass/Vol] 33.3 g/dL 32-36 [facility] Mean corpuscular hemoglobin concentration (MCHC) determination 33.3 g/dL 32-36 [facility] Mean platelet volume determi nationOrdered By: Alexis Copeland on 05-14-2024 Platelet mean volume (Bld) [Entitic vol] 11.8 fL 6.2-12.0 [facility] Mean platelet volume determination 11.8 fl 6.2-12.0 [facility] No Panel InformationOrdered By: Alexis Copeland on 05-14-2024 Troponin T High Sensitivity 14 ng/L <14 [facility] 14 ng/L <14 [facility] 75 U/L High <32 [facility] Platelet countOrdered By: Mary Copeland on 05-14-2024 Platelets (Bld) [#/Vol] 158 10*3/uL 150-450 [facility] Platelet count 158 K/mm3 150-450 [facility] Potassium (Unsp spec) [Mass/ Vol]Ordered By: Alexis Copeland on 05-14-2024 Potassium [Moles/Vol] 4.4 mmol/L 3.3-5.1 [facility] Potassium measurement (mass/volume) 4.4 mmol/L 3.3-5.1 [facility] Potassium measurement (mass/ volume)Ordered By: lAexis Copeland on 05-14-2024 Potassium (Unsp spec) [Mass/Vol] 4.4 mmol/L 3.3-5.1 [facility] RBC Auto (Bld) [#/Vol]Ordere d By: Alexis Copeland on 05-14-2024 RBC (Bld) [#/Vol] 4.24 10*6/uL 4.2-5.4 [facility] Automated blood erythrocyte count 4.24 M/mm3 4.2-5.4 [facility] Serum creatinine measurement (mass/volume)Ordered By: Alexis Copeland on 05-14-2024 Creatinine [Mass/Vol] 1.09 mg/dL 0.70-1.20 [facility] Serum globulin measurementOr dered By: Alexis Copeland on 05-14-2024 Globulin (S) [Mass/Vol] 3.7 g/dL 2.2-4.2 [facility] Serum globulin measurement 3.7 g/dL 2.2-4.2 [facility] Serum glucose measurement (m ass/volume)Ordered By: Alexis Copeland on 05-14-2024 Glucose [Mass/Vol] 212 mg/dL High 70-99 [facility] Serum or plasma alanine marcum otransferase (ALT) measurementOrdered By: Alexis Copeland on 05-14-2024 ALT [Catalytic activity/Vol] 35 U/L <35 [facility] Serum or plasma albumin sebastián urement (mass/volume)Ordered By: Alexis Copeland on 05-14-2024 Albumin [Mass/Vol] 3.9 g/dL 3.4-4.8 [facility] Serum or plasma albumin/glob ulin mass ratioOrdered By: Alexis Copeland on 05-14-2024 Albumin/Globulin [Mass ratio] 1.1 {ratio} 0.9-2.4 [facility] Serum or plasma alkaline mahamed sphatase measurementOrdered By: Alexis Copeland on 05-14-2024 ALP [Catalytic activity/Vol] 85 U/L 35-104 [facility] Serum or plasma calcium sebastián urement (mass/volume)Ordered By: Alexis Copeland on 05-14-2024 Calcium [Mass/Vol] 9.4 mg/dL 7.6-11.0 [facility] Serum or plasma urea nitroge n measurement (mass/volume)Ordered By: Alexis Copeland on 05-14-2024 Urea nitrogen [Mass/Vol] 17 mg/dL 4-19 [facility] Sodium levelOrdered By: Adele Copeland on 05-14-2024 Sodium [Moles/Vol] 135 mmol/L 133-145 [facility] Sodium level 135 mmol/L 133-145 [facility] Total proteinOrdered By: Juan R Copeland on 05-14-2024 Protein [Mass/Vol] 7.6 g/dL 5.9-8.4 [facility] Total protein 7.6 g/dL 5.9-8.4 [facility] Urea nitrogen [Mass/Vol]Orde red By: Alexis Copeland on 05-14-2024 Serum or plasma urea nitrogen measurement (mass/volume) 17 mg/dL 4-19 [facility] White blood cell (WBC) count Ordered By: Alexis Copeland on 05-14-2024 WBC (Bld) [#/Vol] 7.6 10*3/uL 4.4-11.0 [facility] White blood cell (WBC) count 7.6 K/mm3 4.4-11.0 [facility] 12 Lead EKGon 05-13-2024 12 Lead EKG Normal [facility] Abdomen/Pelvis without Conto n 05-13-2024 Abdomen/Pelvis without Cont Normal [facility] Emergency Department Summary on 05-13-2024 Emergency Department Summary Normal [facility] Carotid Duplex Ultrasoundon 05-11-2024 Carotid Duplex Ultrasound Normal [facility] International normalized rat io (INR) calculationOrdered By: Kay Cavazos on 05-02-2024 INR Coag (Bld) [Relative time] 2.2 {INR} [facility] International normalized ratio (INR) calculation 2.2 [facility] Prothrombin Time w/INRon INR Coag (PPP) [Relative time] 2.2 {INR} Normal [facility] Comment on above: Performed By: #### L 300.3900 ####[facility] [address] [place], [address] PT Coag (PPP) [Time] 24.7 s High 11.7-14.9 [facility] Comment on above: Performed By: #### L 300.3900 ####[facility] [address] [place], [address] Prothrombin timeOrdered By: Kay Cavazos on 05-02-2024 PT Coag (PPP) [Time] 24.7 s High 11.7-14.9 [facility] Prothrombin time 24.7 SECONDS High 11.7-14.9 [facility] 12 Lead EKG performed by BMS on 04-18-2024 12 Lead EKG performed by [facility]MS Normal [facility] Cardiology Visit Reporton Cardiology Visit Report Normal [facility] Pacemaker Checkon 04-18-2024 Pacemaker Check Normal [facility] International normalized rat io (INR) calculationOrdered By: Kay Cavazos on 03-29-2024 INR Coag (Bld) [Relative time] 1.9 {INR} [facility] International normalized ratio (INR) calculation 1.9 [facility] Prothrombin Time w/INRon INR Coag (PPP) [Relative time] 1.9 {INR} Normal [facility] Comment on above: Performed By: #### L 300.3900 ####[facility] [address] [place], [place], [id number] PT Coag (PPP) [Time] 21.8 s High 11.7-14.9 [facility] Comment on above: Performed By: #### L 300.3900 ####[facility] [address] [place], [place], [id number] Prothrombin timeOrdered By: Kay Cavazos on 03-29-2024 PT Coag (PPP) [Time] 21.8 s High 11.7-14.9 [facility] Prothrombin time 21.8 SECONDS High 11.7-14.9 [facility] 02-24-2024 [facility] Telephone (MARY KATE) -------- LAISHA WALKER ([id number]) 1950 F Date Time Provider Department 02/24/24 [facility] During your visit today, we recorded the following information about you: Georgie Stallworth APRN.[facility] 02/24/2024 9:17 AM Signed Can you please call the patient and let her know that I reviewed her lab results. Labs were relatively normal, glucose was elevated. I would like her to monitor this at home. Work on eating a low-carb diet. Calcium was mildly elevated but PTH was normal. I would like her to get repeat labs in 6 months prior to next visit. Please let me know if she has any questions. Thank you. Georgie Stallworth APRN.Meggan Shelton, ALONDRA 02/24/2024 9:50 AM Signed Pt called and is notified of results and given providers message. Pt voices understanding. Allergies As of Date: 02/24/2024 Noted Allergy Reaction GABAPENTIN 11/03/2021 14 - Other: See Comments Comments: Dizziness ACCUPRIL (QUINAPRIL HCL) 07/05/2005 14 - Other: See Comments BEXTRA (VALDECOXIB) 07/05/2005 8 - GI Upset CELEBREX (CELECOXIB) 07/05/2005 8 - GI Upset Comments: CODEINE 07/05/2005 14 - Other: See Comments ENTEX LA (PHENYLEPHRINE-GUAIFENES *07/05/2005 14 - Other: See Comments GLUCOPHAGE (METFORMIN HCL) 07/05/2005 14 - Other: See Comments LIPITOR (ATORVASTATIN CALCIUM) 07/05/2005 14 - Other: See Comments LODINE (ETODOLAC) 07/05/2005 8 - GI Upset NAPROSYN (NAPROXEN) 07/05/2005 14 - Other: See Comments NSAIDS (NON-STEROIDAL ANTI-INFLAM*12/06/2019 14 - Other: See Comments PRAVACHOL (PRAVASTATIN SODIUM) 07/05/2005 14 - Other: See Comments Comments: Worsening abdominal pain SULFA (SULFONAMIDE ANTIBIOTICS) 07/08/2014 8 - GI Upset ULTRACET (TRAMADOL-ACETAMINOPHEN) 07/05/2005 14 - Other: See Comments VICODIN (HYDROCODONE-ACETAMINOPH E*07/05/2005 14 - Other: See Comments VIOXX (ROFECOXIB) 07/05/2005 14 - Other: See Comments ZOCOR (SIMVASTATIN) 07/05/2005 14 - Other: See Comments Date Reviewed: 02/16/2024 Reviewed by: Meggan Bartlett LPN - Fully Assessed Reason for Visit: Results [95] Cmt: Labs Prescriptions as of 02/24/2024 - glipiZIDE (GLUCOTROL XL) 10mg 24 hr tablet Take 1 tablet by mouth two times a day. - metoprolol tartrate, short acting, (LOPRESSOR) 50 mg tablet Take 50 mg by mouth two times a day. - rosuvastatin (CRESTOR) 10 mg tablet Take 20 mg by mouth once daily. - losartan (COZAAR) 25 mg tablet Take 0.5 tablets by mouth every afternoon. - warfarin (COUMADIN) 5 mg tablet 2.5 mg //Tuesday, 5 mg all other days or as directed - docusate sodium (STOOL SOFTENER ORAL) Take by mouth as needed. OTC - blood sugar diagnostic (BLOOD GLUCOSE TEST) test strip Test blood sugar(s) 1` times daily. Dx: Type 2 DM - Uncontrolled E11.65 Insulin: No - Lancets lancets Test blood sugar(s) 1` times daily. Dx: Type 2 DM - Uncontrolled E11.65 Insulin: No - hydrocortisone (ANUSOL-HC) 2.5 % rectal cream by RECTAL route twice daily. - multivitamin (MULTIPLE VITAMINS ORAL) Take by mouth. - alcohol swabs (ALCOHOL PREP PADS) Apply 1 application to affected area once daily. - loratadine (CLARITIN) 10 mg tablet Take 10 mg by mouth once daily. - acetaminophen (TYLENOL) 325 mg tablet Take 500 mg by mouth. 2 TABLETS AT HS Problem List As Of Date 02/24/2024 Noted Resolved LUMBAGO [M54.50] 07/06/2005 ENTHESOPATHY OF HIP [M76.899] 07/06/2005 SPRAIN LUMBAR REGION [S33.5XXA] 07/06/2005 Dyslipidemia associated with type 2 diabetes me* Paroxysmal atrial fibrillation (HCC) [I48.0] 01/15/2023 Carotid stenosis, asymptomatic [I65.29] Right renal mass [N28.89] 05/18/2019 Obesity, Class II, BMI 35-39.9 [E66.812] 05/19/2019 Renal carcinoma, right (HCC) [C64.1] 05/20/2019 01/21/2023 Other cirrhosis of liver (HCC) [K74.69] 05/23/2020 Stage 3a chronic kidney disease (HCC) [N18.31] 08/10/2022 Obesity, Class I, BMI 30-34.9 [E66.811] 11/19/2022 01/22/2023 Anticoagulant long-term use [Z79.01] 11/24/2022 Third degree atrioventricular block (HCC) [I44.*01/22/2023 Bradycardia [R00.1] 01/22/2023 At risk for stroke [Z91.89] 01/22/2023 Bilateral carotid artery stenosis [I65.23] 10/10/2016 Diagnosed: 01/22/2023 Gastroesophageal reflux disease [K21.9] 01/22/2023 Diagnosed: 01/22/2023 Hyperlipidemia [E78.5] 01/22/2023 Diagnosed: 01/22/2023 Recurrent falls [R29.6] 01/22/2023 Diagnosed: 01/22/2023 Orthostatic hypotension [I95.1] 01/17/2023 Diagnosed: 01/22/2023 Holley-Mary syncope [I45.9] 01/22/2023 Diabetes mellitus type 2 in obese (HCC) [E11.6*01/22/2023 S/P placement of cardiac pacemaker [Z95.0] 01/25/2023 Encounter Status:Closed by MEGGAN CHAUDHARI on 02/24/24 Normal [facility] Calcium.ionized [Moles/Vol]o n 02-20-2024 Calcium.ionized (Bld) [Mass/Vol] 1.38 mmol/L High 1.08-1.30 [facility] Comment on above: Order Comment: Speci men Type: BLOOD SPECIMENOrdering Facility: [facility] Address: [address] [place] [address] Performed By: #### 1 995-0 ####[facility] LABIA [id number] [place] [address] [place] Calcium.ionized adjusted to pH 7.4 (Bld) [Moles/Vol] 1.30 mmol/L Normal 1.08-1.30 [facility] Comment on above: Order Comment: Speci men Type: BLOOD SPECIMENOrdering Facility: [facility] Address: [address] [place] [address] Performed By: #### 1 995-0 ####[facility] LABCLIA [id number] [place] [id number] [place] Comprehensive metabolic 2000 panelon 02-20-2024 Albumin [Mass/Vol] 4.1 g/dL Normal 3.9-4.9 [facility] Comment on above: Order Comment: Speci men Type: BLOOD SPECIMENOrdering Facility: [facility] Address: [address] [place] [address] Performed By: #### 2 4323-8, 2730-10 ####[facility] LABCLIA [id number] [place] [address] [place] ALP [Catalytic activity/Vol] 87 U/L Normal 34-123 [facility] Comment on above: Order Comment: Speci men Type: BLOOD SPECIMENOrdering Facility: [facility] Address: [address] [place] [address] Performed By: #### 2 4323-8, 8 ####[facility] LABCLIA [id number] [place] [address] [place] ALT [Catalytic activity/Vol] 19 U/L Normal 7-38 [facility] Comment on above: Order Comment: Speci men Type: BLOOD SPECIMENOrdering Facility: [facility] Address: [address] [place] [address] Performed By: #### 2 4323-8, 8 ####[facility] LABCLIA [id number] [place] [address] [place] Anion gap [Moles/Vol] 14 mmol/L Normal 8-15 [facility] Comment on above: Order Comment: Speci men Type: BLOOD SPECIMENOrdering Facility: [facility] Address: [address] [place] [address] Performed By: #### 2 4323-8, 8 ####[facility] LABCLIA [id number] [place] [address] [place] AST [Catalytic activity/Vol] 33 U/L Normal 13-35 [facility] Comment on above: Order Comment: Speci men Type: BLOOD SPECIMENOrdering Facility: [facility] Address: [address] [place] [id number] Performed By: #### 2 432-8, 2730-10 ####[facility] LABCLIA [id number] [address] [address] [place] Bilirubin [Mass/Vol] 0.7 mg/dL Normal 0.2-1.3 [facility] Comment on above: Order Comment: Speci men Type: BLOOD SPECIMENOrdering Facility: [facility] Address: [address] [place], [place] [address] Performed By: #### 2 432-8, 2730-10 ####[facility] LABCLIA [id number] [place] [address] [place] Calcium [Mass/Vol] 9.9 mg/dL Normal 8.5-10.2 [facility] Comment on above: Order Comment: Speci men Type: BLOOD SPECIMENOrdering Facility: [facility] Address: [address] [place], [place] [address] Performed By: #### 2 432-8, 2730-10 ####[facility] LABCLIA [id number] [place] [address] [place] Chloride [Moles/Vol] 105 mmol/L Normal 98-107 [facility] Comment on above: Order Comment: Speci men Type: BLOOD SPECIMENOrdering Facility: [facility] Address: [address] [place], [place] [address] Performed By: #### 2 4323-8, 2730-10 ####[facility] LABCLIA [id number] [place] [id number] [place] CO2 [Moles/Vol] 21 mmol/L Low 22-30 [facility] Comment on above: Order Comment: Speci men Type: BLOOD SPECIMENOrdering Facility: [facility] Address: [address] [place] [address] Performed By: #### 2 4323-8, 2730-10 ####[facility] [id number] [place] [address] [place] Creatinine [Mass/Vol] 0.96 mg/dL Normal 0.58-0.96 [facility] Comment on above: Order Comment: Speci ej Type: BLOOD SPECIMENOrdering Facility: [facility] Address: [address] [place] [address] Performed By: #### 2 4323-8, 2730-10 ####[facility] [id number] [place] [address] [place] Creatinine and Glomerular filtration rate.predicted panel (S/P/Bld) 62 mL/min/1.73m??? Normal >=60 [facility] Comment on above: Order Comment: Debbie pagan Type: BLOOD SPECIMENOrdering Facility: [facility] Address: [address] [place] [address] Result Comment: Bhavani mated Glomerular Filtration Rate (eGFR) is calculated using the 2020 CKD-EPI creatinine equation. This equation utilizes serum creatinine, sex, and age as parameters. The creatinine assay has traceable calibration to isotope dilution-mass spectrometry. Refer to KDIGO guidelines for clinical interpretation. In patients with unstable renal function, e.g. those with acute kidney injury, the eGFR may not accurately reflect actual GFR. Performed By: #### 2 4323-8, 2730-10 ####[facility] [id number] [place] [address] [place] Glucose [Mass/Vol] 188 mg/dL High 74-99 [facility] Comment on above: Order Comment: Debbie pagan Type: BLOOD SPECIMENOrdering Facility: [facility] Address: [address] [place] [address] Result Comment: The [place] Diabetes Association (ADA) provides guidance for cutoff values for fasting glucose and random glucose. The ADA defines fasting as no caloric intake for at least 8 hours. Fasting plasma glucose results between 100 to 125 mg/dL indicate increased risk for diabetes (prediabetes). Fasting plasma glucose results greater than or equal to 126 mg/dL meet the criteria for diagnosis of diabetes. In the absence of unequivocal hyperglycemia, results should be confirmed by repeat testing. In a patient with classic symptoms of hyperglycemia or hyperglycemic crisis, random plasma glucose results greater than or equal to 200 mg/dL meet the criteria for diagnosis of diabetes. Reference: Standards of Medical Care in Diabetes 2016, [place] [employer] Association. Diabetes Care. 2016.39(Suppl 1). Performed By: #### 2 4328, 2730-10 ####[facility] LABCLIA [id number] [address] [address] [place] Potassium [Moles/Vol] 4.6 mmol/L Normal 3.7-5.1 [facility] Comment on above: Order Comment: Speci men Type: BLOOD SPECIMENOrdering Facility: [facility] Address: [address] [place] [address] Performed By: #### 2 8, 2730-10 ####[facility] [id number] [place] [id number] [place] Protein [Mass/Vol] 7.3 g/dL Normal 6.3-8.0 [facility] Comment on above: Order Comment: Speci men Type: BLOOD SPECIMENOrdering Facility: [facility] Address: [address] [place] [address] Performed By: #### 2 8, 2730-10 ####[facility] LABCLIA [id number] [place] [id number] [place] Sodium [Moles/Vol] 140 mmol/L Normal 136-144 [facility] Comment on above: Order Comment: Speci men Type: BLOOD SPECIMENOrdering Facility: [facility] Address: [address] [place] [address] Performed By: #### 2 4328, 2730-10 ####[facility] LABCLIA [id number] [address] [address] [place] Urea nitrogen [Mass/Vol] 21 mg/dL Normal 7-21 [facility] Comment on above: Order Comment: Speci men Type: BLOOD SPECIMENOrdering Facility: [facility] Address: [address] [place] [address] Performed By: #### 2 4323-8, 2738 ####[facility] [id number] [address] [place] PTH-Intact [facility]Pl[facility] - Parathyrin.intact [Mass/Vol] 44 pg/mL Normal 15-65 [facility] Comment on above: Order Comment: Speci men Type: BLOOD SPECIMENOrdering Facility: [facility] Address: [address] [place] [address] Performed By: #### 2 4323-8, 2738 ####[facility] LABCLIA [id number] [address] OF [facility] LAISHA WALKER ([id number]) 1950 F Date Time Provider Department 02/17/24 GEORGIE STALLWORTH [facility] During your visit today, we recorded the following information about you: Georgie Stallworth APRN.[employer]ICIAN INVESTIGATOR 02/17/2024 12:39 PM Addendum Can you please call the patient and let her know that I reviewed her x-ray of her low back and lab results. A1c went up from 7.5 to 7.6. Mild decreased kidney function but stable.Triglycerides were elevated. I would recommend increasing the glipizide 10 mg twice daily. Get repeat labs in 6 months prior to next office visit. Please let me know what she prefers. X-ray showed no fractures. There is mild arthritis in the low back as well as some mild osteophyte formation. I would recommend that she continue with Tylenol as needed. Continue supportive care at home, may consider physical therapy in the future. If pain does not improve I can place a consult for pain management. Please let me know if she has any questions. Thank you. Georgie Stallworth APRN.Tresa Bailey LPN 02/17/2024 1:05 PM Signed Phoned patient went over results, notes from Georgie Nicholson PRODUCER ASSISTANT. Patient has questions concerning her elevated calcium level and liver function AST elevated also. She said with her fatty liver and cirrhosis of the liver. She has sharp pain right upper quadrant off and on and bloating. If she needs to do any follow up with that? She did not discuss that yesterday since it was a wellness visit. She needs new rx for the Glipizide since dose is being increased. She uses [facility] for her pharmacy. Patient asking if she should see Ortho for her back or not? since she has arthritis in her knees and had knee replacement done. Georgie Stallworth APRN.JASEN 02/17/2024 1:24 PM Signed Can you please call the patient back and let her know that I sent in an updated prescription for glipizide 10 mg twice daily to her pharmacy. In regards to her liver enzyme, this is mildly elevated by 1 point. I would not be concerned however she is due to have a follow-up with her c d still operator. We can recheck labs in a month to verify calcium level. Let me know what she prefers. In regards to her back, orthopedics will probably recommend that she complete physical therapy to help with her back, they may be able to offer a back injection which may help provide her with relief. The following approved medication requests have been transmitted electronically. Requested Prescriptions Signed Prescriptions Disp Refills glipiZIDE (GLUCOTROL XL) 10mg 24 hr tablet 60 tablet 5 Sig: Take 1 tablet by mouth two times a day. Authorizing Provider: GEORGIE STALLWORTH APRN.CNP Ferriman, Barbara, LPN 02/17/2024 1:30 PM Signed Patient notified of Rx, verbalizes understanding of instructions. Please put in calcium in one month. JAMIE Goins Ashley, APRN.CNP 02/17/2024 1:34 PM Signed Lab orders placed, thank you Georgie Stallworth APRN.MORTICIAN INVESTIGATOR Allergies As of Date: 02/17/2024 Noted Allergy Reaction GABAPENTIN 11/03/2021 14 - Other: See Comments Comments: Dizziness ACCUPRIL (QUINAPRIL HCL) 07/05/2005 14 - Other: See Comments BEXTRA (VALDECOXIB) 07/05/2005 8 - GI Upset CELEBREX (CELECOXIB) 07/05/2005 8 - GI Upset Comments: CODEINE 07/05/2005 14 - Other: See Comments ENTEX LA (PHENYLEPHRINE-GUAIFENES *07/05/2005 14 - Other: See Comments GLUCOPHAGE (METFORMIN HCL) 07/05/2005 14 - Other: See Comments LIPITOR (ATORVASTATIN CALCIUM) 07/05/2005 14 - Other: See Comments LODINE (ETODOLAC) 07/05/2005 8 - GI Upset NAPROSYN (NAPROXEN) 07/05/2005 14 - Other: See Comments NSAIDS (NON-STEROIDAL ANTI-INFLAM*12/06/2019 14 - Other: See Comments PRAVACHOL (PRAVASTATIN SODIUM) 07/05/2005 14 - Other: See Comments Comments: Worsening abdominal pain SULFA (SULFONAMIDE ANTIBIOTICS) 07/08/2014 8 - GI Upset ULTRACET (TRAMADOL-ACETAMINOPHEN) 07/05/2005 14 - Other: See Comments VICODIN (HYDROCODONE-ACETAMINOPH E*07/05/2005 14 - Other: See Comments VIOXX (ROFECOXIB) 07/05/2005 14 - Other: See Comments ZOCOR (SIMVASTATIN) 07/05/2005 14 - Other: See Comments Date Reviewed: 02/16/2024 Reviewed by: Meggan Bartlett LPN - Fully Assessed Reason for Visit: Results [95] Cmt: Lumbar Xray/Labs Primary Visit Diagnosis:Controlled type 2 diabetes mellitus without complication, without long-term current use of insulin (HCC) [E11.9] Other Visit Diagnosis:Serum calcium elevated [E83.52] Order(s):glipiZIDE (GLUCOTROL XL) 10mg 24 hr tabletTake 1 tablet by mouth two times a day.Disp: 60 tabletRfl: 5 CALCIUM, IONIZED [SQICA] Order #: [id number] FUTURE PTH INTACT [SQPTHI] Order #: [id number] FUTURE COMPREHENSIVE METABOLIC PANEL [SQCMP] Order #: [id number] FUTURE Prescriptions as of 02/17/2024 - glipiZIDE (GLUCOTROL XL) 10mg 24 hr tablet Take 1 tablet by mouth two times a day. (more content not included)... Normal [facility] CNOVon 02-16-2024 [facility] -------- LAISHA WALKER ([id number]) 1950 F Date Time Provider Department 02/16/24 11:00 AM GEORGIE STALLWORTH [facility] During your visit today, we recorded the following information about you: Pulse Respiration Blood pressure Weight 60/minute 16/minute 130/64 93 kg Height 1.6 m Georgie Stallworth APRN.MORTICIAN INVESTIGATOR 02/16/2024 12:55 PM Signed Laisha Floresmer is a 73 year old female here for a Medicare wellness visit. Medicare Health Risk Assessment General Health Fair Exercise: Minutes/Day 0 min Exercise: Days/Week 0 days Alcohol: Daily Use Never Alcohol: Drinks/Day Patient does not drink Alcohol: 6 or more drinks Never Feel off balance Yes Concerns: Teeth/Dentures Yes Concerns: Sexual function No Troubled by feelings None of the above Frequency: Eating healthy diet Nearly every day ADLs requiring help Housework; Sitting or standing; Walking; Managing urine leakage Safety precautions in home/vehicle Yes Smoke, vape, chews tobacco No Difficulty hearing Yes Difficulty seeing No Current Providers Specialists: I have reviewed specialist-related care of the patient in the medical record. Cardiology: [facility], yearly. Medical/Family history review Reviewed and updated problem list, medical/surgical/family/ social history, medications, and allergies. Opioid use review Opioid Medications (last 90 days) No data to display Depression Screening DEPRESSION SCREENING Ordered at: 02/16/24 1110 Based on score and interview, patient is: Not at risk for depression Screening tool discussed with patient, and I recommend: No further intervention at this time PHQ-2 Score: 0 ANXIETY SCREENING Ordered at: 02/16/24 1110 Based on score and interview, patient is: Not at risk for anxiety Screening tool discussed with patient, and I recommend: No further intervention at this time ALAN-2 Score: 0 Cognitive screening Mini Cog Score: 5 Cognitive screening reviewed and No further action needed (score 3-5). Functional Observation Was the patient's Timed Up AND Go test unsteady or >= 12 seconds? No Advance Care Planning Surrogate decision maker and/or advance care plan documented Measurements BP 130/64 Pulse 60 Resp 16 Ht 160 cm (5' 2.99) Wt 93 kg (205 lb 0.4 oz) SpO2 98% BMI 36.33 kg/m? Vision Screening: Follows with optometry/ophthalmology Assessment/Plan Medicare annual wellness visit, subsequent (Z00.00) - Counseled on healthy diet and regular exercise - Fall avoidance information provided - Personalized prevention plan provided - Discussed need for and benefit of weight loss. BMI 36.33 kg/(m2) This is a 73 year old female who presents today with: Patient presents with: Medicare Wellness Exam HISTORY OF PRESENT ILLNESS: Laisha Walker is a 73 year old female. Patient presents with: Medicare Wellness Exam Here in the office for extensive exam. Chronic hip, groin, and back pain. Using Tylenol as needed, sparingly. Bilateral leg swelling, on going, but seems to be starting in the left ankle as well. No chest pain. Recurrent UTIs: Has had at least 4 UTI's in the past year. History of left kidney cancer in the past. Mass removed. Chronic constipation, using stool softener as needed. Afib: Following with cardiology, Dr. Christie, switched to [facility]. Taking losartan 25 mg, half tablet daily and Lopressor 50 mg twice daily. Taking Coumadin 5 mg Tuesday, Tuesday, and Tuesday. 2.5 mg all other days. Not currently checking blood pressure at home. Denies chest pain or dizziness. Pace maker placed in January 2023. DM2: Checking fasting sugars, 140's Taking Glucotrol 5 mg twice daily. Working on watching diet Denies any hypoglycemic . Tingling in bilateral feet worse in the toes, seems to be constant, sharp pain. Lipids: Taking Crestor 10 mg daily. Watching diet. Liver: Was getting CT abdomen/pelvis routinely to monitor the liver every 3 to 6 months. Was following with gastroenterology, Dr. Josie Coates, schedule follow-up. Would like to exit mammogram screening Vaccines: Denies wanting any vaccines at this time. PAST MEDICAL HISTORY: PAST MEDICAL HISTORY Diagnosis Date Atrial fibrillation (HCC) SEES DR. BARRERA Carotid stenosis, asymptomatic CVA (cerebral vascular accident) (HCC) post op after 2017 bilateral knee replacements - per pt was told by neurology that it was a questionable stroke Diabetes mellitus type 2 in obese 01/22/2023 DVT (deep venous thrombosis) (HCC) post op Dysthymic disorder Depression (non-psychotic) Esophageal reflux Essential hypertension, benign Goiter, unspecified Goiter Liver cirrhosis (HCC) Macular degeneration (senile) of retina, unspecified Macular degeneration Other and unspecified hyperlipidemia Renal carcinoma, right (HCC) S/P placement of cardiac pacemaker 01/26/20 (more content not included)... Normal [facility] Cholesterol in LDL Direct as say [Mass/Vol]on 02-16-2024 Cholesterol in LDL [Mass/Vol] 75 mg/dL Normal <100 [facility] Comment on above: Order Comment: Speci ej Type: BLOOD SPECIMENOrdering Facility: [facility] Address: [address] [place] [address] Result Comment: <100 mg/dL, Optimal 100-129 mg/dL, Near optimal/above optimal 130-159 mg/dL, Borderline high 160-189 mg/dL, High >189 mg/dL, Very high Secondary prevention optimal LDL Cholesterol levels are recommended to be < 70 mg/dL Performed By: #### 2 4331-1, 26882-2, 18032-1 ####[facility] LABCLIA [id number] [place] [address] [place] Cholesterol in VLDL [Mass/Vol] 83 mg/dL High <30 [facility] Comment on above: Order Comment: Debbie pagan Type: BLOOD SPECIMENOrdering Facility: [facility] Address: [address] [place] [address] Performed By: #### 2 4331-1, 20346-6, ####[facility] LABCLIA [id number] [address] [address] [place] Comprehensive metabolic 2000 panelon 02-16-2024 Albumin [Mass/Vol] 4.3 g/dL Normal 3.9-4.9 [facility] Comment on above: Order Comment: Speci men Type: BLOOD SPECIMENOrdering Facility: [facility] Address: [address] [place] [address] Performed By: #### 2 4331-1, 44024-6, ####[facility] LABIA [id number] [place] [address] [place] ALP [Catalytic activity/Vol] 86 U/L Normal 34-123 [facility] Comment on above: Order Comment: Speci men Type: BLOOD SPECIMENOrdering Facility: [facility] Address: [address] [place] [address] Performed By: #### 2 4331-1, , ####[facility] LABIA [id number] [place] [address] [place] ALT [Catalytic activity/Vol] 22 U/L Normal 7-38 [facility] Comment on above: Order Comment: Speci men Type: BLOOD SPECIMENOrdering Facility: [facility] Address: [address] [place] [address] Performed By: #### 2 4331-1, 09432-7, ####[facility] LABIA [id number] [address] [address] [place] Anion gap [Moles/Vol] 13 mmol/L Normal 8-15 [facility] Comment on above: Order Comment: Speci men Type: BLOOD SPECIMENOrdering Facility: [facility] Address: [address] [place] [address] Performed By: #### 2 4331-1, 98255-5, ####[facility] LABCLIA [id number] [address] [address] [place] AST [Catalytic activity/Vol] 36 U/L High 13-35 [facility] Comment on above: Order Comment: Speci men Type: BLOOD SPECIMENOrdering Facility: [facility] Address: [address] [place] [address] Performed By: #### 2 4331-1, 70265-0, ####[facility] LABCLIA [id number] [address] [address] [place] Bilirubin [Mass/Vol] 0.7 mg/dL Normal 0.2-1.3 [facility] Comment on above: Order Comment: Speci men Type: BLOOD SPECIMENOrdering Facility: [facility] Address: [address] [place] [address] Performed By: #### 2 4331-1, , ####[facility] LABIA [id number] [place] [address] [place] Calcium [Mass/Vol] 10.6 mg/dL High 8.5-10.2 [facility] Comment on above: Order Comment: Speci men Type: BLOOD SPECIMENOrdering Facility: [facility] Address: [address] [place] [address] Performed By: #### 2 4331-1, , ####[facility] LABIA [id number] [place] [id number] [place] Chloride [Moles/Vol] 102 mmol/L Normal 98-107 [facility] Comment on above: Order Comment: Speci men Type: BLOOD SPECIMENOrdering Facility: [facility] Address: [address] [place], [place] [address] Performed By: #### 2 4331-1, 66112-2, ####[facility] LABCLIA [id number] [place] [address] [place] CO2 [Moles/Vol] 24 mmol/L Normal 22-30 [facility] Comment on above: Order Comment: Debbie pagan Type: BLOOD SPECIMENOrdering Facility: [facility] Address: [address] [place] [address] Performed By: #### 2 4331-1, 14459-3, ####[facility] LABCLIA [id number] [place] [address] [place] Creatinine [Mass/Vol] 1.10 mg/dL High 0.58-0.96 [facility] Comment on above: Order Comment: Speci men Type: BLOOD SPECIMENOrdering Facility: [facility] Address: [address] [place] [address] Performed By: #### 2 4331-1, 33236-8, ####[facility] [id number] [place] [address] [place] Creatinine and Glomerular filtration rate.predicted panel (S/P/Bld) 53 mL/min/1.73m??? Low >=60 [facility] Comment on above: Order Comment: Debbie pagan Type: BLOOD SPECIMENOrdering Facility: [facility] Address: [address] [place] [address] Result Comment: Bhavani mated Glomerular Filtration Rate (eGFR) is calculated using the 2020 CKD-EPI creatinine equation. This equation utilizes serum creatinine, sex, and age as parameters. The creatinine assay has traceable calibration to isotope dilution-mass spectrometry. Refer to KDIGO guidelines for clinical interpretation. In patients with unstable renal function, e.g. those with acute kidney injury, the eGFR may not accurately reflect actual GFR. Performed By: #### 2 4331-1, 00577-1, ####[facility] LABCLIA [id number] [place] [id number] [place] Glucose [Mass/Vol] 185 mg/dL High 74-99 [facility] Comment on above: Order Comment: Debbie pagan Type: BLOOD SPECIMENOrdering Facility: [facility] Address: [address] [place] [address] Result Comment: The [place] Diabetes Association (ADA) provides guidance for cutoff values for fasting glucose and random glucose. The ADA defines fasting as no caloric intake for at least 8 hours. Fasting plasma glucose results between 100 to 125 mg/dL indicate increased risk for diabetes (prediabetes). Fasting plasma glucose results greater than or equal to 126 mg/dL meet the criteria for diagnosis of diabetes. In the absence of unequivocal hyperglycemia, results should be confirmed by repeat testing. In a patient with classic symptoms of hyperglycemia or hyperglycemic crisis, random plasma glucose results greater than or equal to 200 mg/dL meet the criteria for diagnosis of diabetes. Reference: Standards of Medical Care in Diabetes 2016, [place] Diabetes Association. Diabetes Care. 2016.39(Suppl 1). Performed By: #### 2 4331-1, 58252-1, 61947-2 ####[facility] LABCLIA [id number] [place] [address] [place] Potassium [Moles/Vol] 4.7 mmol/L Normal 3.7-5.1 [facility] Comment on above: Order Comment: Debbie pagan Type: BLOOD SPECIMENOrdering Facility: [facility] Address: [address] [place] [address] Performed By: #### 2 4331-1, 44591-9, 70338-0 ####[facility] LABCLIA [id number] [place] [id number] [place] Protein [Mass/Vol] 8.1 g/dL High 6.3-8.0 [facility] Comment on above: Order Comment: Debbie pagan Type: BLOOD SPECIMENOrdering Facility: [facility] Address: [address] [place] [address] Performed By: #### 2 4331-1, 29086-0, 55698-9 ####[facility] LABCLIA [id number] [place] [address] [place] Sodium [Moles/Vol] 139 mmol/L Normal 136-144 [facility] Comment on above: Order Comment: Speci men Type: BLOOD SPECIMENOrdering Facility: [facility] Address: [address] [place] [address] Performed By: #### 2 4331-1, 96211-0, 80493-6 ####[facility] LABCLIA [id number] [place] [address] [place] Urea nitrogen [Mass/Vol] 19 mg/dL Normal 7-21 [facility] Comment on above: Order Comment: Speci men Type: BLOOD SPECIMENOrdering Facility: [facility] Address: [address] [place] [address] Performed By: #### 2 4331-1, 50087-9, 33226-2 ####[facility] LABIA [id number] [place] [address] [place] HbA1c (Bld)on 02-16-2024 Average glucose Estimated from glycated hemoglobin (Bld) [Mass/Vol] 171 mg/dL Normal [facility] Comment on above: Order Comment: Beni men Type: BLOOD SPECIMENOrdering Facility: [facility] Address: [address] [place] [address] Result Comment: eAG: (Estimated average glucose) is a calculated value from HgbA1c and is sales representative meats of the average blood glucose level in the last 2-3 month period. Performed By: #### 5 5454-3 ####[facility] LABIA [id number] [place] [address] [place] HbA1c (Bld) [Mass fraction] 7.6 % High 4.3-5.6 [facility] Comment on above: Order Comment: Beni men Type: BLOOD SPECIMENOrdering Facility: [facility] Address: [address] [place] [address] Result Comment: Amer [place] Diabetes Association guidelines indicate that patients with HgbA1c in the range 5.7-6.4% are at increased risk for development of diabetes, and intervention by lifestyle modification may be beneficial. HgbA1c greater or equal to 6.5% is considered diagnostic of diabetes. Performed By: #### 5 5454-3 ####[facility] LABCLIA [id number] [place] [address] [place] Lipid 1996 panelon 4 Cholesterol [Mass/Vol] 210 mg/dL High <200 [facility] Comment on above: Order Comment: Speci men Type: BLOOD SPECIMENOrdering Facility: [facility] Address: [address] [place] [address] Result Comment: <200 mg/dL, Desirable 200-239 mg/dL, Borderline high >239 mg/dL, High Performed By: #### 2 4331-1, 87064-3, ####[facility] LABCLIA [id number] [address] [place] Cholesterol in HDL [Mass/Vol] 52 mg/dL Normal >39 [facility] Comment on above: Order Comment: Speci men Type: BLOOD SPECIMENOrdering Facility: [facility] Address: [address] [place] [address] Result Comment: 40-5 9 mg/dL, Acceptable >59 mg/dL, High: Negative risk factor for coronary heart disease <40 mg/dL, Low: Positive risk factor for coronary heart disease Performed By: #### 2 4331-1, 24470-6, 97787-6 ####[facility] LABCLIA [id number] [address] [place] Cholesterol in LDL [Mass/Vol] Normal [facility] Comment on above: Order Comment: Speci men Type: BLOOD SPECIMENOrdering Facility: [facility] Address: [address] [place] [address] Result Comment: Unab le to calculate due to increased Triglycerides. See LDL-Chol, Direct. Performed By: #### 2 4331-1, 78878-9, 37413-2 ####[facility] LABCLIA [id number] [address] [facility] Cholesterol in LDL/Cholesterol in HDL [Mass ratio] Normal [facility] Comment on above: Order Comment: Speci men Type: BLOOD SPECIMENOrdering Facility: [facility] Address: [address] [place] [address] Result Comment: Unab le to calculate due to elevated Triglycerides. Reference: 1. National Cholesterol Education Program ATP III Guideline At-A-Glance Quick Desk Reference: National Heart, Lung, and Blood Geary. National Institutes of Health. 2001: NIH Publication No. 01-3305. 2. An International Atherosclerosis Society position paper: global recommendations for the management of dyslipidemia: executive summary, Atherosclerosis. 2014: 232(2):410-413. Performed By: #### 2 4331-1, 78357-3, ####[facility] LABCLIA [id number] [address] [place] Cholesterol in VLDL [Mass/Vol] Normal [facility] Comment on above: Order Comment: Speci men Type: BLOOD SPECIMENOrdering Facility: [facility] Address: [address] [place] [address] Result Comment: Unab le to calculate due to increased Triglycerides. See LDL-Chol, Direct. Performed By: #### 2 4331-1, 78277-8, ####[facility] LABCLIA [id number] [place] [address] [place] Cholesterol non HDL [Mass/Vol] 158 mg/dL High <130 [facility] Comment on above: Order Comment: Debbie pagan Type: BLOOD SPECIMENOrdering Facility: [facility] Address: [address] [place] [address] Result Comment: <130 mg/dL, Optimal 130-159 mg/dL, Near optimal/above optimal 160-189 mg/dL, Borderline high 190-219 mg/dL, High >219 mg/dL, Very high Secondary prevention optimal non HDL Cholesterol levels are recommended to be <100 mg/dL Performed By: #### 2 4331-1, 15771-5, 98544-8 ####[facility] LABCLIA [id number] [place] [address] [place] Cholesterol.total/Jahaira sterol in HDL [Mass ratio] 4.04 {ratio} Normal <5.10 [facility] Comment on above: Order Comment: Speci men Type: BLOOD SPECIMENOrdering Facility: [facility] Address: [address] [place] [address] Performed By: #### 2 4331-1, 12206-9, 73819-2 ####[facility] LABIA [id number] [place] [address] [place] FASTING TIME 12 hrs Normal [facility] Comment on above: Order Comment: Speci men Type: BLOOD SPECIMENOrdering Facility: [facility] Address: [address] [place] [address] Performed By: #### 2 4331-1, 72370-2, 02855-5 ####[facility] LABIA [id number] [place] [id number] [place] Triglyceride [Mass/Vol] 407 mg/dL High <150 [facility] Comment on above: Order Comment: Speci men Type: BLOOD SPECIMENOrdering Facility: [facility] Address: [address] [place] [address] Result Comment: <150 mg/dL, Normal 150-199 mg/dL, Borderline high 200-499 mg/dL, High >499 mg/dL, Very high Performed By: #### 2 4331-1, 83977-6, 27325-7 ####[facility] LABCLIA [id number] [address] [address] [place] XR LUMBAR 3V AP/LAT/L5-S1on 02-16-2024 XR LUMBAR 3V AP/LAT/L5-S1 * * *Final Report* * * DATE OF EXAM: Feb 16 2024 12:13PM WOX [id number] - XR LUMBAR 3V AP/LAT/L5-S1 / PROCEDURE REASON: multiple diagnoses * * * * Physician Interpretation * * * * EXAM TITLE: XR LUMBAR 3V AP/LAT/L5-S1 EXAM DATE/TIME: 02/16/2024 12:13 PM COMPARISON: X-ray lumbar spine on 02/09/2022 CLINICAL INDICATION/HISTORY: Low back pain. TECHNIQUE: AP, lateral and cone down lateral views of the lumbar spine are presented. FINDINGS: There are five gxy-zyi-lnzvitk lumbar vertebrae. No acute fractures demonstrated. There is grade 1 L4 on L5 anterolisthesis. There appears be L4-5 mild disc space narrowing. There is mild osteophyte formation. Kissing spine seen on lateral view. IMPRESSION: Lumbar spine degenerative changes as described above. Account Group Supervisor: [employer] Transcribe Date/Time: Feb 17 2024 11:29A Dictated by : BREONNA GARCIA MD This examination was interpreted and the report reviewed and electronically signed by: BREONNA GARCIA MD on Feb 17 2024 11:33AM EST [id number] Normal [facility] [employer] normalized rat io (INR) calculationOrdered By: Kay Cavazos on 01-30-2024 INR Coag (Bld) [Relative time] 2.5 {INR} [facility] Prothrombin Time w/INRon INR Coag (PPP) [Relative time] 2.5 {INR} Normal [facility] Comment on above: Performed By: #### L 300.3900 ####[facility] [id number] [place], [place], [id number] PT Coag (PPP) [Time] 26.7 s High 11.7-14.9 [facility] Comment on above: Performed By: #### L 300.3900 ####[facility] [id number] [place], [address] Prothrombin timeOrdered By: Kay Cavazos on 01-30-2024 PT Coag (PPP) [Time] 26.7 s High 11.7-14.9 [facility] UA DIP, URINE (POC)on 2023 BILIRUBIN UA (POCT) Negative Negative [facility] CLARITY UA (POCT) Cloudy [facility] COLOR UA (POCT) Yellow [facility] GLUCOSE UA (POCT) 100 mg/dL Abnormal Negative [facility] Hemoglobin Ql (U) Moderate Abnormal Negative [facility] Interpretation and review of laboratory results Abnormal [facility] KETONE UA (POCT) Negative Negative mg/dL [facility] LEUKOCYTES UA (POCT) Large Abnormal [facility] NITRITE UA (POCT) Positive Abnormal Negative [facility] PH UA (POCT) 6.0 4.5 - 8.0 [facility] Protein Ql (U) 30 mg/dL Abnormal Negative [facility] SPECIFIC GRAVITY UA (POCT) 1.020 1.005 - 1.030 [facility] UROBILINOGEN UA (POCT) 0.2 Mily l E.U./dL [facility] Location:[address], [place], [place], [id number] [place] [address] [facility] XR Abdomen Single viewon IMPRESSION: No obstruction or free air seen Account Group Supervisor: [facility] Transcribe Date/Time: Oct 27 2023 7:03A Dictated by : MARION TIAN MD This examination was interpreted and the report reviewed and electronically signed by: MARION TIAN MD on Oct 27 2023 7:04AM [facility] DIVISION OF RADIOLOGY * * *Final Report* * * DATE OF EXAM: Oct 21 2023 2:41PM WOX [id number] - XR ABDOMEN 1V SPECIFY / PROCEDURE REASON: Pelvic pain * * * * Physician Interpretation * * * * XR ABDOMEN 1V SPECIFY PROVIDED HISTORY: Pelvic pain COMPARISON: No previous similar exams are available for comparison TECHNIQUE: Single view of abdomen RESULT: The bowel gas pattern is unremarkable. Cholecystectomy clips. No renal stones are seen. No small bowel obstruction or free air is visualized. Intramedullary arden of the right proximal femur. DIVISION OF RADIOLOGY Provider, [facility] - 10/27/2023 * * *Final Report* * * DATE OF EXAM: Oct 21 2023 2:41PM WOX 5288 - XR ABDOMEN 1V SPECIFY / PROCEDURE REASON: Pelvic pain * * * * Physician Interpretation * * * * XR ABDOMEN 1V SPECIFY PROVIDED HISTORY: Pelvic pain COMPARISON: No previous similar exams are available for comparison TECHNIQUE: Single view of abdomen RESULT: The bowel gas pattern is unremarkable. Cholecystectomy clips. No renal stones are seen. No small bowel obstruction or free air is visualized. Intramedullary arden of the right proximal femur. IMPRESSION IMPRESSION: No obstruction or free air seen Account Group Supervisor: RODERICK Transcribe Date/Time: Oct 27 2023 7:03A Dictated by : MARION TIAN MD This examination was interpreted and the report reviewed and electronically signed by: MARION TIAN MD on Oct 27 2023 7:04AM EST [facility] XR Abdomen Single viewOrdere d By: [facility] Provider on 10-27-2023 [facility] XR Abdomen Single viewon Radiology Study observation (narrative) [facility] UA DIP, URINE (POC)on 2023 BILIRUBIN UA (POCT) Negative Negative [facility] CLARITY UA (POCT) [facility] COLOR UA (POCT) Dark yellow [facility] GLUCOSE UA (POCT) Negative Negative mg/dL [facility] Hemoglobin Ql (U) Large Abnormal Negative [facility] [employer] Interpretation and review of laboratory results Abnormal [facility] KETONE UA (POCT) Negative Negative mg/dL [facility] LEUKOCYTES UA (POCT) Moderate Abnormal Negative [facility] NITRITE UA (POCT) Positive Abnormal Negative [facility] PH UA (POCT) 6.5 4.5 - 8.0 [facility] Protein Ql (U) 100 mg/dL Abnormal Negative [facility] SPECIFIC GRAVITY UA (POCT) 1.015 1.005 - 1.030 [facility] UROBILINOGEN UA (POCT) 0.2 Mily l E.U./dL [facility] Location:[address], [place], [place], [id number] [place] [address] [facility] UA DIP, URINE (POC)on 2023 BILIRUBIN UA (POCT) Negative Negative [facility] CLARITY UA (POCT) Cloudy [facility] COLOR UA (POCT) Light yellow [facility] GLUCOSE UA (POCT) Negative Negative mg/dL [facility] Hemoglobin Ql (U) Small Abnormal Negative [facility] Interpretation and review of laboratory results Abnormal [facility] KETONE UA (POCT) Negative Negative mg/dL [facility] LEUKOCYTES UA (POCT) Large Abnormal Negative [facility] NITRITE UA (POCT) Negative Negative [facility] PH UA (POCT) 5.5 4.5 - 8.0 [facility] Protein Ql (U) Negative Negative mg/dL [facility] SPECIFIC GRAVITY UA (POCT) <=1.005 Abnormal 1.005 - 1.030 [facility] UROBILINOGEN UA (POCT) 0.2 Mily l E.U./dL [facility] Location:[facility], [address] [place] [address], [place], [place], [address] [place] [address] [facility] Laboratory - CoagulationOrde red By: Bonnie Ramirez on 07-16-2023 INR Coag (Bld) [Relative time] 1.8 {INR} [facility] PT Coag (PPP) [Time] 20.4 s 11.7-14.9 [facility] Laboratory - CoagulationOrde red By: Kay Cavazos on 06-08-2023 INR Coag (Bld) [Relative time] 2.6 {INR} [facility] PT Coag (PPP) [Time] 27.8 s 11.7-14.9 [facility] Laboratory - CoagulationOrde red By: Kay Cavazos on 04-25-2023 INR Coag (Bld) [Relative time] 2.2 {INR} [facility] PT Coag (PPP) [Time] 24.8 s 11.7-14.9 [facility] - CoagulationOrde red By: Kay Cavazos on 03-18-2023 PT Coag (PPP) [Time] 23.0 s 11.7-14.9 [facility] Whole blood international no rmalized ratio (INR)Ordered By: Kay Cavazos on 03-18-2023 INR Coag (Bld) [Relative time] 2.0 {INR} [facility] INR in Blood by Coagulation assayOrdered By: Kay Cavazos on 03-04-2023 INR Coag (Bld) [Relative time] 1.9 {INR} [facility] Laboratory - CoagulationOrde red By: Kay Cavazos on 03-04-2023 PT Coag (PPP) [Time] 21.9 s 11.7-14.9 [facility] INR in Blood by Coagulation assayOrdered By: Kay Cavazos on 02-15-2023 INR Coag (Bld) [Relative time] 1.7 {INR} [facility] Laboratory - CoagulationOrde red By: Kay Cavazso on 02-15-2023 PT Coag (PPP) [Time] 19.8 s 11.7-14.9 [facility] INR (POC)on 02-11-2023 INR Coag (PPP) [Relative time] 4.7 {INR} High 0.8 - 1.2 [facility] Internal Quality Check Acceptable Cl [facility] No Panel Informationon 02-11 INR International Normalized Ratio 4.2 [facility] ALLIED HEALTHon 01-25-2023 ALLIED HEALTH HNO ID: [id number] Author: Nafisa Lou RT(R) Service: Radiology Author Type: Technologist Type: Allied Health Filed: 01/25/2023 10:14 AM Note Text: Radiology Service Progress Note PATIENT NAME: Laisha Walker DATE OF SERVICE: January 25, 2023 TIME: 10:14 AM PATIENT IDENTITY VERIFICATION COMPLETED USING TWO (2) IDENTIFIERS: Name and Date of confirmed by patient verbally and Name and Date of confirmed by identification band. FALL SCREENING: Has the patient had 2 falls in the last year or 1 fall with injury or currently using an Ambulatory Assistive Device (Walker, Cane, Wheelchair, Crutches, etc.)? Inpatient: Screened on floor PATIENT GENDER DATA: Female. status: : No status: NO. PATIENT RELEVANT IMPLANT DATA REVIEWED: Not Applicable RADIOLOGY DEPARTMENT: General X-ray: Exam(s) Completed: Chest X-Ray PERIPHERAL IV DATA: Not applicable SIGNED BY: RT Cj(R) January 25, 2023 10:14 AM Normal [facility] Basic metabolic 2000 panelon 01-25-2023 Anion gap [Moles/Vol] 8 mmol/L Low 9-18 [facility] Comment on above: Order Comment: Speci men Type: BLOOD SPECIMEN [facility] Facility[facility] Address: [address] [place] [address] Performed By: #### 2 4321-2, 60248-2, 2777-1 #### [facility] CLIA [id number] [address] [place] [address] [place] Calcium [Mass/Vol] 9.2 mg/dL Normal 8.5-10.2 [facility] Comment on above: Order Comment: Speci men Type: BLOOD SPECIMEN [facility] Address: [address] [place] [address] Performed By: #### 2 4321-2, , 2776-03 #### [facility] CLIA [id number] [address] [place] [address] [place] Chloride [Moles/Vol] 98 mmol/L Normal 97-105 [facility] Comment on above: Order Comment: Speci men Type: BLOOD SPECIMEN [facility] Address: [address] [place] [address] Performed By: #### 2 4321-2, , 2776-03 #### [facility] CLIA [id number] [address] STATES OF [facility] CO2 [Moles/Vol] 25 mmol/L Normal 22-30 [facility] Comment on above: Order Comment: Speci men Type: BLOOD SPECIMEN [facility] Address: [address] [place] [address] Performed By: #### 2 4321-2, , 2776-03 #### [facility] CLIA [id number] [address] [place] Creatinine [Mass/Vol] 1.16 mg/dL High 0.58-0.96 [facility] Comment on above: Order Comment: Speci men Type: BLOOD SPECIMEN [facility] Address: [address] [place] [address] Performed By: #### 2 4321-2, , 2776-03 #### [facility] CLIA [id number] [address] OF [place] Creatinine and Glomerular filtration rate.predicted panel (S/P/Bld) 50 mL/min/1.73m??? Low >=60 [facility] Comment on above: Order Comment: Debbie pagan Type: BLOOD SPECIMEN [facility] Address: [address] [place] [address] Result Comment: Bhavani mated Glomerular Filtration Rate (eGFR) is calculated using the 2020 CKD-EPI creatinine equation. This equation utilizes serum creatinine, sex, and age as parameters. The creatinine assay has traceable calibration to isotope dilution-mass spectrometry. Refer to KDIGO guidelines for clinical interpretation. In patients with unstable renal function, e.g. those with acute kidney injury, the eGFR may not accurately reflect actual GFR. Performed By: #### 2 4321-2, 54886-6, 2776- #### [facility] CLIA [id number] [address] [place] [address] [place] Glucose [Mass/Vol] 315 mg/dL High 74-99 [facility] Comment on above: Order Comment: Debbie pagan Type: BLOOD SPECIMEN [facility] Address: [address] [place] [address] Result Comment: The [place] Diabetes Association (ADA) provides guidance for cutoff values for fasting glucose and random glucose. The ADA defines fasting as no caloric intake for at least 8 hours. Fasting plasma glucose results between 100 to 125 mg/dL indicate increased risk for diabetes (prediabetes). Fasting plasma glucose results greater than or equal to 126 mg/dL meet the criteria for diagnosis of diabetes. In the absence of unequivocal hyperglycemia, results should be confirmed by repeat testing. In a patient with classic symptoms of hyperglycemia or hyperglycemic crisis, random plasma glucose results greater than or equal to 200 mg/dL meet the criteria for diagnosis of diabetes. Reference: Standards of Medical Care in Diabetes 2016, [place] Diabetes Association. Diabetes Care. 2016.39(Suppl 1). Performed By: #### 2 4321-2, 54469-5, 2776-03 #### [facility] CLIA [id number] [address] [place] [address] [place] Potassium [Moles/Vol] 4.7 mmol/L Normal 3.7-5.1 [facility] Comment on above: Order Comment: Debbie pagan Type: BLOOD SPECIMEN [facility] Address: [address] [place] [address] Performed By: #### 2 4321-2, 31904-4, 2777-1 #### [facility] CLIA [id number] [address] OF [facility] Sodium [Moles/Vol] 131 mmol/L Low 136-144 [facility] Comment on above: Order Comment: Speci men Type: BLOOD SPECIMEN [facility] Address: [address] [place] [address] Performed By: #### 2 4321-2, 60462-6, 2776- #### [facility] CLIA [id number] [address] [place] Urea nitrogen [Mass/Vol] 37 mg/dL High 7-21 [facility] Comment on above: Order Comment: Speci men Type: BLOOD SPECIMEN [facility] Address: [address] [place] [address] Performed By: #### 2 4321-2, , 2776-03 #### [facility] CLIA [id number] [address] OF [facility] CASE MANAGEMon 01-25-2023 CASE MANAGEM HNO ID: [id number] Author: Chris Vale RN Service: ? Author Type: Registered Nurse Type: Care Mgt Progress Note Filed: 01/25/2023 2:49 PM Note Text: CARE MANAGEMENT DISCHARGE NOTE SERVICE DATE: January 25, 2023 SERVICE TIME: 8 Admission Date: 01/22/2023 LOS: 3 days Discharge Arrangement Discharge Arrangement: Home with Self Care, Other: See Comment (home with spouse) Services Arranged Provider Name: Dr. Tracy Caregiver Assessment Caregiver is ready, willing and able to meet the patient's needs as recommended by the inter-professional team: Yes Name of Caregiver: Emir Walker Transportation Arrangements Transportation Arrangements: Car Handoff Communication: Additional Information: NA Pt to discharge to home with spouse and self care today. Spouse to transport patient home. SIGNATURE: Chris Vale RN PATIENT NAME: Laisha Walker DATE: January 25, 2023 TIME: 2:48 PM CONTACT #: [phone] [facility] CASE MANAGEM HNO ID: [id number] Author: Chris Vale RN Service: ? Author Type: Registered Nurse Type: Care Mgt Progress Note Filed: 01/25/2023 2:38 PM Note Text: CARE MANAGEMENT PROGRESS NOTE SERVICE DATE: 01/25/2023 SERVICE TIME: 1339 LOS: 3 days IMM Follow Up Copy Given: Yes Copy given to:: Patient Method: In Person Patient verbalized understanding SIGNATURE: Chris Vale RN PATIENT NAME: Laisha Walker DATE: January 25, 2023 TIME: 2:37 PM PAGER/CONTACT #: [phone] [facility] CASE MGT INIT Jena 2022 CASE MGT INIT ASSRONEY HNO ID: [id number] Author: Chris Vale RN Service: ? Author Type: Registered Nurse Type: Care Mgt Initial Assessment Filed: 01/25/2023 2:46 PM Note Text: CARE MANAGEMENT: ASSESSMENT AND DISCHARGE PLAN SERVICE DATE: January 25, 2023 SERVICE TIME: 1444 PCP: Flako Tracy MD Primary Contact: Extended Emergency Contact Information Primary Emergency Contact: Emir Walker Address: [address] [place] [address] [address] Mobile Relation: Spouse Secondary Emergency Contact: Claudia Harris Mobile Relation: Daughter Admission Status: Inpatient Insurance Provider: [facility] MEDIC[facility] PPO Discharge Planning requested by: Per Department Practice Potential Transition Plans Home Advance Directives Current Advance Directive: Health Care Power of Interpersonal Communications Professor In Chart: No Current Living Arrangements and Support Lives with: Spouse/significant other Type of Residence: Private Residence (House) Does the patient have to climb stairs at home?: Yes;stairs within the home (basement stairs) Support: Spouse/significant other How do you manage to accomplish the following: Independent: Bathe/Shower;Dress;Meals /Meal Prep;Medication Management Needs Assistance: Ambulation;Going to the bathroom;Transportation to appointments/community Current Services/Equipment Current Post-Acute Service(s): DME Current DME Type: Cane, Walker Discharge Planning Patient Goal(s): Be able to go home, General wellness [place] of Choice Explained: [place] of [place] Given: No Reason Not Given: No placements necessary Are you interested in bedside delivery of your medications? No Discharge Planning Participant(s): Patient Patient/Family Comments: Caregiver Assessment: Caregiver is ready, willing and able to meet the patient's needs as recommended by the inter-professional team: Yes Name of Caregiver: Emir Walker Transport at Discharge: Transportation Arrangements: Car Needs Prior to Discharge: Needs Prior to Discharge: Ready for Discharge Post-Acute Discharge Plan: MEt with patient at bedside. 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 Pt s/p pacemaker placement yesterday. +PCP, +DME, +Rx. No transitional care needs identified at this time. Spouse to transport at discharge. SIGNATURE: Chris Vale RN PATIENT NAME: Laisha Walker DATE: January 25, 2023 TIME: 2:43 PM CONTACT #: [phone] Normal [facility] CBC panel Auto (Bld)on 01-25 Erythrocyte distribution width (RBC) [Ratio] 13.5 % Normal 11.5-15.0 [facility] Comment on above: Order Comment: Debbie pagan Type: BLOOD SPECIMENOrdering Facility: [facility] Address: [address] [place] [address] Performed By: #### 5 8410-2 ####[facility]ORYCLIA [id number] [place] [address] [place] Hematocrit (Bld) [Volume fraction] 34.9 % Low 36.0-46.0 [facility] Comment on above: Order Comment: Debbie pagan Type: BLOOD SPECIMENOrdering Facility: [facility] Address: [address] [place] [address] Performed By: #### 5 8410-2 ####[facility]ORYCLIA [id number] [place] [address] [place] Hemoglobin (Bld) [Mass/Vol] 11.4 g/dL Low 11.5-15.5 [facility] Comment on above: Order Comment: Debbie pagan Type: BLOOD SPECIMENOrdering Facility: [facility] Address: [address] [place] [address] Performed By: #### 5 8410-2 ####[facility]ORYCLIA [id number] [address] MCH (RBC) [Entitic mass] 27.9 pg Normal 26.0-34.0 [facility] Comment on above: Order Comment: Speci men Type: BLOOD SPECIMENOrdering Facility: [facility] Address: [address] [place] [address] Performed By: #### 5 8410-2 ####[facility]ORYCLIA [id number] [address] MCHC (RBC) [Mass/Vol] 32.7 g/dL Normal 30.5-36.0 [facility] Comment on above: Order Comment: Speci men Type: BLOOD SPECIMENOrdering Facility: [facility] Address: [address] [place] [address] Performed By: #### 5 8410-2 ####[facility]ORYCLIA [id number] [address] MCV (RBC) [Entitic vol] 85.5 fL Normal 80.0-100.0 [facility] Comment on above: Order Comment: Speci men Type: BLOOD SPECIMENOrdering Facility: [facility] Address: [address] [place] [address] Performed By: #### 5 8410-2 ####[facility]ORYCLIA [id number] [address] Nucleated RBC (Bld) [#/Vol] 10*3/uL Normal <0.01 [facility] Comment on above: Order Comment: Speci men Type: BLOOD SPECIMENOrdering Facility: [facility] Address: [address] [place] [address] Performed By: #### 5 8410-2 ####[facility]ORYCLIA [id number] [address] Platelet mean volume (Bld) [Entitic vol] 10.8 fL Normal 9.0-12.7 [facility] Comment on above: Order Comment: Speci men Type: BLOOD SPECIMENOrdering Facility: [facility] Address: [address] [place] [address] Performed By: #### 5 8410-2 ####[facility]ATORYCLIA [id number] [address] Platelets (Bld) [#/Vol] 291 10*3/uL Normal 150-400 [facility] Comment on above: Order Comment: Speci men Type: BLOOD SPECIMENOrdering Facility: [facility] Address: [place] [address] Performed By: #### 5 8410-2 ####[facility]ATORYCLIA [id number] [address] RBC (Bld) [#/Vol] 4.08 10*6/uL Normal 3.90-5.20 [facility] Comment on above: Order Comment: Speci men Type: BLOOD SPECIMENOrdering Facility: [facility] Address: [address] [place] [address] Performed By: #### 5 8410-2 ####[facility]ORYCLIA [id number] [address] WBC (Bld) [#/Vol] 10.41 10*3/uL Normal 3.70-11.00 [facility] Comment on above: Order Comment: Speci men Type: BLOOD SPECIMENOrdering Facility: [facility] Address: [address] [place] [address] Performed By: #### 5 8410-2 ####[facility]ORYCLIA [id number] [address] CNDSon 01-25-2023 CNDS HNO ID: [id number] Author: Davon Morrissey MD Service: Cardiovascular Medicine Author Type: Resident Type: Discharge Summary Filed: 01/25/2023 12:14 PM Note Text: -------- Attestation signed by Adarsh Steele MD at 01/25/2023 2:27 PM I saw and evaluated the patient. Discussed with the resident and agree with resident's findings and plan as documented in the resident's note. -------- DISCHARGE SUMMARY PATIENT NAME: Laisha Walker ADMISSION DATE: 01/22/2023 DISCHARGE DATE: 01/25/2023 Attending Physician: Leonel Otero MD Code Status: Full Code Highest Readmission Risk Score: 17 The 30 day readmissions risk score is derived from an internally validated risk model which evaluates patient level characteristics, utilization history, medication orders and lab results up until the day of discharge. Patients with a score of 40 or above are considered highest risk for readmission. Specific patient level drivers will be listed at the bottom of the summary. The 30 day readmissions risk score is derived from an internally validated risk model which evaluates patient level characteristics, utilization history, medication orders and lab results up until the day of discharge. Patients with a score of 40 or above are considered highest risk for readmission. Specific patient level drivers will be listed at the bottom of the summary. PRINCIPAL PROBLEM: S/P placement of cardiac pacemaker Operations During Hospitalization: None Procedures During Hospitalization: Pacemaker placement Hospital Course: Laisha Walker is a 72 year old female with PMH: Atrial fibrillation Carotid stenosis Self reported 90% stenosis of left w/ significant collaterals, 50% stenosis of right US 10/27/20 Left ICA occlusion Right ICA 20-39% stenosis CVA DVT Warfarin 5 mg daily HTN T2DM (HBA1c 7.7 6 months ago) CKD 3a Renal carcinoma, right Cirrhosis Orthostatic hypotension Depression GERD Goiter Planning for FNA Who presented to the [facility] on January 21, 2023 after a syncopal event at home. Of note, patient was evaluated in the [facility] on 01/14 and by her PCP today for this same issue. Patient reports she has been having dizziness for the past 5 months however the episode she had yesterday was a lot worse and when she checked her heart rate it was 35. She initially went to [facility] on January 14 for chief complaint of frequent falls and syncope and was diagnosed with orthostatic hypotension. Her home sotalol and hydrochlorothiazide was held and patient was discharged. She again went to her PCP yesterday with similar complaints. Yesterday in the [facility] ED, she was normotensive heart rate of 71 however telemetry was concerning for complete heart block and her heart rate fell to 30s. Her labs were unremarkable and EKG showed normal sinus rhythm with incomplete right bundle branch block however repeat EKG showed second-degree AV block with 4:1 conduction. Of note, patient reports a tick bite 2 weeks ago which was removed when she noticed it and she is unsure how long it was there. She does not complain of any fever or any rash, arthralgias or myalgias. Review of system was otherwise unremarkable. Given her high-degree AV block, a permanent pacemaker was placed on Tuesday01/24/2023 without complications. She was observed overnight in CVICU and is now stable to be discharged. Principal Problem: S/P placement of cardiac pacemaker (POA: Unknown) Active Problems: Paroxysmal atrial fibrillation (HCC) (POA: Yes) Obesity, Class II, BMI 35-39.9 (POA: Yes) Stage 3a chronic kidney disease (HCC) (POA: Yes) Anticoagulant long-term use (POA: Yes) Third degree atrioventricular block (HCC) (POA: Yes) Bradycardia (POA: Yes) At risk for stroke (POA: Yes) Holley-Mary syncope (POA: Yes) Diabetes mellitus type 2 in obese (HCC) (POA: Yes) Resolved Problems: * No resolved hospital problems. * Transitions of Care Critical Issues: NEW BASELINE FOR PATIENT: s/p pacemaker placement IMAGING FOLLOW-UP: none LAB MONITORING NEEDED: none SPECIALIST FOLLOW-UP: none [facility]ARK MEDICATION CHANGES: none PROCEDURES SCHEDULED: none LABS AND PROCEDURES PENDING AT DISCHARGE: No pending results. Consulting Teams During Hospitalization: None Patient Condition @ Discharge: Stable Patient is able to complete both ADLS and IADLS which represents a return to baseline mental/physical health. Discharge Disposition: Home with Self Care Diet: Resume pre-hospital diet Activity: Resume pre-hospital activity Wound/Surgical Site Care: None ALLERGIES Allergen Reactions Gabapentin Other: See Comments Dizziness Accupril [Quinapril* Other: See Comments Bextra [Valdecoxib] GI Upset Celebrex [Celecoxib] GI Up (more content not included)... Normal [facility] 01-25-2023 JASENN Telephone (AGCARDPOB ) -------- LAISHA WALKER ([id number]) 1950 F Date Time Provider Department 01/25/23 MIGUELITO BRUNO During your visit today, we recorded the following information about you: Miguelito Bruno APRN.MORTICIAN INVESTIGATOR 01/25/2023 1:58 PM Signed Patient underwent implantation of [place] dual-chamber permanent pacemaker with Dr. Steele in 01/24/2023. She will need a wound check phone call in 1 week. Subsequently she would prefer to follow with her established general secretarial stenographer with the [facility] for device care moving forward. ThanksMiguelito APRN.[facility] January 25, 2023 1:58 PM Yolande Little 01/25/2023 3:33 PM Signed Follow up(s) scheduled. Patient to be notified upon discharge. Yolande Little Allergies As of Date: 01/25/2023 Noted Allergy Reaction GABAPENTIN 11/03/2021 14 - Other: See Comments Comments: Dizziness ACCUPRIL (QUINAPRIL HCL) 07/05/2005 14 - Other: See Comments BEXTRA (VALDECOXIB) 07/05/2005 8 - GI Upset CELEBREX (CELECOXIB) 07/05/2005 8 - GI Upset Comments: CODEINE 07/05/2005 14 - Other: See Comments ENTEX LA (PHENYLEPHRINE-GUAIFENES *07/05/2005 14 - Other: See Comments GLUCOPHAGE (METFORMIN HCL) 07/05/2005 14 - Other: See Comments LIPITOR (ATORVASTATIN CALCIUM) 07/05/2005 14 - Other: See Comments LODINE (ETODOLAC) 07/05/2005 8 - GI Upset NAPROSYN (NAPROXEN) 07/05/2005 14 - Other: See Comments NSAIDS (NON-STEROIDAL ANTI-INFLAM*12/06/2019 14 - Other: See Comments PRAVACHOL (PRAVASTATIN SODIUM) 07/05/2005 14 - Other: See Comments Comments: Worsening abdominal pain SULFA (SULFONAMIDE ANTIBIOTICS) 07/08/2014 8 - GI Upset ULTRACET (TRAMADOL-ACETAMINOPHEN) 07/05/2005 14 - Other: See Comments VICODIN (HYDROCODONE-ACETAMINOPH E*07/05/2005 14 - Other: See Comments VIOXX (ROFECOXIB) 07/05/2005 14 - Other: See Comments ZOCOR (SIMVASTATIN) 07/05/2005 14 - Other: See Comments Date Reviewed: 01/23/2023 Reviewed by: Delia Rivera RN - Fully Assessed Reason for Visit: Wound Check [133] Prescriptions as of 01/25/2023 - rosuvastatin (CRESTOR) 10 mg tablet Take 20 mg by mouth once daily. - predniSONE (DELTASONE) 20 mg tablet Take 2 tablets by mouth once daily for 5 days. - losartan (COZAAR) 25 mg tablet Take 0.5 tablets by mouth every afternoon. - promethazine (PHENERGAN) 12.5 mg tablet Take 1 tablet by mouth every 6 hours as needed. - warfarin (COUMADIN) 5 mg tablet 2.5 mg //Tuesday, 5 mg all other days or as directed - glipiZIDE (GLUCOTROL) 5 mg tablet Take 1 tablets by mouth before breakfast and one tablet by mouth before dinner - docusate sodium (STOOL SOFTENER ORAL) Take by mouth as needed. OTC - blood sugar diagnostic (BLOOD GLUCOSE TEST) test strip Test blood sugar(s) 1` times daily. Dx: Type 2 DM - Uncontrolled E11.65 Insulin: No - Lancets lancets Test blood sugar(s) 1` times daily. Dx: Type 2 DM - Uncontrolled E11.65 Insulin: No - hydrocortisone (ANUSOL-HC) 2.5 % rectal cream by RECTAL route twice daily. - multivitamin (MULTIPLE VITAMINS ORAL) Take by mouth. - alcohol swabs (ALCOHOL PREP PADS) Apply 1 application to affected area once daily. - loratadine (CLARITIN) 10 mg tablet Take 10 mg by mouth once daily. - acetaminophen (TYLENOL) 325 mg tablet Take 500 mg by mouth. 2 TABLETS AT HS Facility-Administered Medications as of 01/25/2023 - senna-docusate 8.6-50 mg 1 tablet (SENNA-S) - insulin lispro injection (rapid acting) (ADMElog) - acetaminophen 1,000 mg tab(s) (TYLENOL) - WARFARIN DOSING PER PHARMACY - rosuvastatin 20 mg tab(s) (CRESTOR) - losartan 12.5 mg tab(s) (COZAAR) - potassium chloride ER 20-40 mEq tab(s) (KLOR-CON) - potassium chloride iv piggyback 20 mEq/100 mL - phosphorus 500 mg tab(s) (K PHOS NEUTRAL) - calcium gluconate iv piggyback 2 g in NaCl (iso-osmotic) 100 mL - NaCl 0.9% iv flush bag - sodium chloride 0.9 % (flush) 2-10 mL (BD POSIFLUSH) - perflutren lipid microspheres 1.1 mg/mL 1.3 mL injection (DEFINITY) - atropine 0.4 mg injection - dextrose 15 gram/32 mL 15 g (TRUEPLUS) - glucagon 1 mg injection - dextrose 10% iv bolus Problem List As Of Date 01/25/2023 Noted Resolved LUMBAGO [M54.50] 07/06/2005 ENTHESOPATHY OF HIP [M76.899] 07/06/2005 SPRAIN LUMBAR REGION [S33.5XXA] 07/06/2005 Dyslipidemia associated with type 2 diabetes me* Paroxysmal atrial fibrillation (HCC) [I48.0] 01/15/2023 Carotid stenosis, asymptomatic [I65.29] Right renal mass [N28.89] 05/18/2019 Obesity, Class II, BMI 35-39.9 [E66.9] 05/19/2019 Renal carcinoma, right (HCC) [C64.1] 05/20/2019 01/21/2023 Other cirrhosis of liver (HCC) [K74.69] 05/23/2020 Stage 3a chronic kidney disease (HCC) [N18.31] 08/10/2022 Obesity, Class I, BMI 30-34.9 [E66.9] 11/19/2022 01/22/2023 Anticoagulant long-term use [Z79.01] 11/24/2022 Third degree atrioventricular block (HCC) [I44.*01/22/2023 Bradycardia [R00.1] (more content not included)... Normal [facility] Magnesium SerPl-mCncon 01-25 Magnesium [Mass/Vol] 2.1 mg/dL Normal 1.7-2.3 [facility] Comment on above: Order Comment: Speci men Type: BLOOD SPECIMENOrdering Facility: [facility] Address: [address] [place] [address] Performed By: #### 2 4321-2, 45567-4, 2777-1 ####[facility]ORYCLIA [id number] [place] [address] [place] No Panel Informationon 01-25 BLANK _ [facility] Implant Date 01/24/2023 [facility] PAC[facility]ER CLIN[facility] CHECKon AMS Fallback Rate (bpm) 80 {beats}/min [facility] AV Delay Adaptive Paced Minimum (ms) [address] [facility] AV Delay Adaptive Rate Maximum (bpm) 130 {beats}/min [facility] AV Delay Adaptive Rate Minimum (bpm) 90 {beats}/min [facility] AV Delay Adaptive Sensed Minimum (ms) [address] [facility] AV Delay Adaptive Status DISABLED [facility] Battery Voltage (volts) 3.07 V [facility] RA Pacing Amplitude (volts) 3.[address] [facility] Vincent RA Pacing Polarity BI [facility] Vincent RA Pacing Pulse Width (ms) 0.[address] [facility] Vincent RA Sensing Blanking Period (ms) [address] [facility] Vincent RA Sensing Polarity BI [facility] RA Sensing Refractory Period (ms) [address] [facility] Vincent RV Pacing Amplitude (volts) 3.[address] [facility] Vincent RV Pacing Polarity BI [facility] Vincent RV Pacing Pulse Width (ms) 0.[address] [facility] Vincent RV Sensing Amplitude (mvolts) 2.[address] [facility] Vincent RV Sensing Blanking Period (ms) [address] [facility] Vincent RV Sensing Polarity BI [facility] RV Sensing Refractory Period (ms) [address] [facility] Hysteresis Rate (bpm) Off [facility] Lead1 Mfg SJM [facility] Lead2 Mfg [facility] Location RA [facility] Location RV [facility] Lower Rate (bpm) 60 {beats}/min [facility] Max Sensor Rate (bmp) 130 {beats}/min [facility] Model 2272 Assurity MRI [facility] Model 2087TC/52 [facility] Model 2087TC/58 [facility] Pacemaker Dependent? NO [facility] Pacing Mode DDDR [facility] PM-Device Mfg STJ [facility] PM-Percent Pacing (A) 0.09 % [facility] PM-Percent Pacing (V) 4.3 % [facility] PM-PMT Intervention Atrial Pace [facility] PM-PVC Intervention Atrial Pace [facility] PM-Rate Modulation Acceleration Reaction Fast [facility] PM-Rate Modulation Deceleration Medium [facility] PM-Rate Modulation [place] Auto (+2) [facility] PM-Rate Modulation Threshold Auto (+0.0) [facility] Rhythm sinus rhythm @ 83 bpm [facility] Serial Number [id number] [facility] Serial Number [id number] [facility] Serial Number [id number] [facility] Thresh RA Capture Amplitude (volts) 0.[address] [facility] Thresh RA Capture Duration (ms) 0.[address] [facility] Thresh RA Sensing Amplitude (mvolts) 5.[address] [facility] Thresh RV Capture Amplitude (volts) 0.[address] [facility] Thresh RV Capture Duration (ms) 0.[address] [facility] Thresh RV Sensing Amplitude (mvolts) 8.[address] [facility] Tracking Rate (bpm) 130 {beats}/min [facility] PT panel Coag (PPP)on 2022 INR Coag (PPP) [Relative time] 1.8 {INR} High 0.9-1.3 [facility] Comment on above: Order Comment: Speci men Type: BLOOD SPECIMEN [facility] Address: [address] [place] [address] Result Comment: Daja min K Antagonist (VKA) Therapeutic Range: INR 2 to 3 (Target INR of 2.5) Note: For patients treated with VKA drugs, such as warfarin, the [place] [employer] 2012 Guideline recommends a therapeutic INR range of 2 to 3 (target INR of 2.5). This recommendation includes high-risk patients with antiphospholipid syndrome with previous arterial or venous thromboembolism, current-generation mechanical or bioprosthetic aortic heart valve replacement. Note: Patients with mechanical aortic valve replacement and additional risk factors for thromboembolic events (atrial fibrillation, previous thromboembolism, LV dysfunction, hypercoagulable conditions) or an older generation mechanical AVR (i.e., ball in-Cage) or any mechanical MVR should have a INR therapeutic range of 2.5 to 3.5 (target INR of 3). Joseph GH, et al. Chest 2012, 141:7S-47S Yoli RA, et al. JAC 2017, 70: 252-289 Performed By: #### 3 4528-0 #### [facility] CLIA [id number] [address] [place] [address] [place] PT Coag (PPP) [Time] 17.9 s High 9.7-13.0 [facility] Comment on above: Order Comment: Debbie pagan Type: BLOOD SPECIMEN [facility] Address: [address] [place] [address] Performed By: #### 3 4528-0 #### [facility] CLIA [id number] [address] [place] [address] [place] Phosphate SerPl-mCncon 01-25 Phosphate [Mass/Vol] 3.9 mg/dL Normal 2.7-4.8 [facility] Comment on above: Order Comment: Debbie pagan Type: BLOOD SPECIMENOrdering Facility: [facility] Address: [address] [place] [address] Performed By: #### 2 4321-2, 35881-3, 2777-1 ####[facility]ORATORYCLIA [id number] [place] [address] [place] XR CHEST 2V FRONTAL/LATon XR CHEST 2V FRONTAL/LAT * * *Final Repor t* * * DATE OF EXAM: Jan 25 2023 10:14AM [id number] [id number] - XR CHEST 2V FRONTAL/LAT / PROCEDURE REASON: Other * * * * Physician Interpretation * * * * EXAMINATION: CHEST RADIOGRAPH (2 VIEW FRONTAL and LATERAL) CLINICAL HISTORY: Other, Rhythm device implantation MQ: [id number] EXAM DATE/TIME: 01/25/2023 10:14 AM COMPARISON: 12/05/2020 RESULT: Lines, tubes, and devices: Left chest pacer device with leads in the right atrium and ventricle.. Lungs and pleura: No consolidation. No lung mass. No pleural effusion. No pneumothorax. Cardiomediastinal silhouette: Normal cardiomediastinal silhouette. Bones and soft tissues: Unremarkable. IMPRESSION: No acute radiographic abnormality. Account Group Supervisor: PSCB Transcribe Date/Time: Jan 25 2023 10:15A Dictated by : IDA SILVA MD This examination was interpreted and the report reviewed and electronically signed by: IDA SILVA MD on Jan 25 2023 10:16AM EST [id number] Normal [facility] ANES POSTPROC EVALon 023 ANES POSTPROC EVAL HNO ID: [id number] Author: Zelda Thompson MD Service: Anesthesiology Author Type: Physician Type: Anesthesia Postprocedure Evaluation Filed: 01/24/2023 2:55 PM Note Text: POST ANESTHESIA EVALUATION NOTE : 1950 Procedure Summary Date: 01/24/23 Room / Location: [place] [address] / [facility] Anesthesia Start: 1049 Anesthesia Stop: 1312 Procedure: (NEW IMPLANT DUAL CHAMBER PPM) INSERTION OF A NEW PERMANENT PACEMAKER W/ INSERTION OF NEW TRANSVENOUS ELECTRODE(S) ATRIAL AND VENTRICULAR (Left: Cardiac) Diagnosis: Heart block (Heart block [I45.9]) Surgeons: Adarsh Steele MD Responsible Provider: Zelda Thompson MD Anesthesia Type: MAC ASA Status: 4 Anesthesia Type: MAC Last Vitals Vitals Value Taken Time BP 143/66 01/24/23 1430 Temp 01/24/23 1446 Pulse 91 01/24/23 1445 Resp 15 01/24/23 1445 SpO2 97 % 01/24/23 1445 Vitals shown include unvalidated device data. Post Anesthesia Patient Status Anticipated Disposition: ICU planned admission. Neurological Status: aware and responsive. Pulmonary Status: breathing comfortably on room air Airway Control: returned to baseline unsupported. Cardiovascular Status: stable. Pain Management: clinically adequate Postoperative Hydration: acceptable. Intraoperative Events: no significant anesthesia events Post Operative Nausea/Vomiting Status: no significant post operative nausea or vomiting Recommendation: further care per PACU/ICU/floor team. Anesthesia Observations No Documentation SIGNATURE: Zelda Thompson MD PATIENT NAME: Laisha Walker DATE: January 24, 2023 TIME: 2:46 PM CSN: [id number] Normal [facility] ANES PRE-OPon 01-24-2023 ANES PRE-OP HNO ID: [id number] Author: Zelda Thompson MD Service: Anesthesiology Author Type: Physician Type: Anesthesia Preprocedure Evaluation Filed: 01/24/2023 10:55 AM Note Text: ANESTHESIOLOGY DAY OF SURGERY NOTE : 1950 Procedure Information Anesthesia Start Date/Time: 01/24/23 1021 Procedure: (NEW IMPLANT DUAL CHAMBER PPM) INSERTION OF A NEW PERMANENT PACEMAKER W/ INSERTION OF NEW TRANSVENOUS ELECTRODE(S) ATRIAL AND VENTRICULAR (Left: Cardiac) Location: [place] [facility] / [facility] Surgeons: Adarsh Steele MD Estimated body mass index is 35 kg/m? as calculated from the following: Height as of this encounter: 162.6 cm (5' 4). Weight as of this encounter: 92.5 kg (203 lb 14.8 oz). Most recent hematocrit and potassium results: Hematocrit 34.3 01/24/2023 Potassium 4.7 01/24/2023 Relevant Problems CARDIO (+) Bilateral carotid artery stenosis (+) Carotid stenosis, asymptomatic (+) Paroxysmal atrial fibrillation (HCC) (+) Third degree atrioventricular block (HCC) ENDO (+) Diabetes mellitus type 2 in obese (HCC) (+) Dyslipidemia associated with type 2 diabetes mellitus (HCC) GI (+) Gastroesophageal reflux disease -RENAL (+) Other cirrhosis of liver (HCC) (+) Stage 3a chronic kidney disease (HCC) I - PHYSICAL EVALUATION AIRWAY Patient intubated: No. Tracheostomy tube not present Mallampati: III. TM distance: <3 FB. Neck ROM: limited extension. Mouth opening: adequate. Short neck: no. Thick neck: no DENTAL Dental findings: chipped. Additional exam findings: no II - ANESTHESIA PLAN ASA Score: 4 Anesthetic Plan: MAC NPO Status: adequate Beta Zandra Monitoring Plan Monitoring plan: standard ASA. Post Procedure Analgesic Plan Postoperative analgesic plan: multimodal analgesia. Informed Consent Anesthetic risks, benefits, alternatives, personnel and consent discussed: yes. Patient / Responsible Libertarian agrees to proceed: yes Patient / Surrogate agrees to blood products: Yes Significant changes in the patient condition since the History and Physical, not otherwise documented in primary service progress note: no. Potential Anesthesia issues that may suggest increased risk of complications or contraindication to planned procedure: potential difficult intubation. Vitals Value Taken Time BP 161/83 01/24/23 1000 Pulse 89 01/24/23 1004 Resp 22 01/24/23 1004 Temp SpO2 97 % 01/24/23 1004 Vitals shown include unvalidated device data. Facility-Administered Medications as of 01/24/2023 Medication Dose Route Frequency - [Held on Transfer] acetaminophen 1,000 mg tab(s) (TYLENOL) 1,000 mg ORAL q 6 H PRN - [COMPLETED] magnesium sulfate iv piggyback in sterile water 2 g 50 mL 2 g INTRAVENOUS ONCE - [Held on Transfer] WARFARIN DOSING PER PHARMACY 1 Each OTHER DAILY - WARFARIN - [COMPLETED] warfarin 2.5 mg tab(s) (COUMADIN) 2.5 mg ORAL ONCE - WARFARIN - [COMPLETED] insulin regular human 5 Units injection (short acting) 5 Units SUBCUTANEOUS ONCE - [COMPLETED] insulin lispro 10 Units injection (rapid acting) (ADMElog) 10 Units SUBCUTANEOUS ONCE - [Held on Transfer] rosuvastatin 20 mg tab(s) (CRESTOR) 20 mg ORAL DAILY - [Held on Transfer] losartan 12.5 mg tab(s) (COZAAR) 12.5 mg ORAL DAILY - [Held on Transfer] potassium chloride ER 20-40 mEq tab(s) (KLOR-CON) 20-40 mEq ORAL/FEEDING TUBE PRN Or - [Held on Transfer] potassium chloride iv piggyback 20 mEq/100 mL 20 mEq INTRAVENOUS PRN - [Held on Transfer] phosphorus 500 mg tab(s) (K PHOS NEUTRAL) 500 mg ORAL/FEEDING TUBE PRN(NO DISPENSE) - [Held on Transfer] calcium gluconate iv piggyback 2 g in NaCl (iso-osmotic) 100 mL 2 g INTRAVENOUS PRN(NO DISPENSE) - [Held on Transfer] NaCl 0.9% iv flush bag 20 mL INTRAVENOUS PRN - [Held on Transfer] sodium chloride 0.9 % (flush) 2-10 mL (BD POSIFLUSH) 2-10 mL INTRAVENOUS DIRECTED PRN And - [Held on Transfer] perflutren lipid microspheres 1.1 mg/mL 1.3 mL injection (DEFINITY) 1.3 mL INTRAVENOUS DIRECTED PRN - [Held on Transfer] atropine 0.4 mg injection 0.4 mg INTRAVENOUS PRN(NO DISPENSE) - [Held on Transfer] dextrose 15 gram/32 mL 15 g (TRUEPLUS) 15 g ORAL PRN Or - [Held on Transfer] glucagon 1 mg injection 1 mg INTRAMUSCULAR PRN Or - [Held on Transfer] dextrose 10% iv bolus 12.5 g INTRAVENOUS PRN - [Held on Transfer] predniSONE 40 mg tab(s) (DELTASONE) 40 mg ORAL DAILY AT 12 PM - [Held on Transfer] insulin lispro injection (rapid acting) (ADMElog) SUBCUTANEOUS w MEALS - [COMPLETED] warfarin 2.5 mg tab(s) (COUMADIN) 2.5 mg ORAL ONCE - WARFARIN - [Held on Transfer] vancomycin 1.5 g in NaCl 0.9% 250 mL (VANCOCIN) 0.015 g/kg/dose INTRAVENOUS [employer] to [place] Outpatient Medications as of 01/24/2023 Medication Sig - rosuvastatin (CRESTOR) 10 mg tablet Take 20 mg by mouth once daily. - losartan (COZAAR) 25 mg tablet Take 0.5 tablets by mouth every afternoon. - promethazine (PHENERGAN) 12.5 mg tab (more content not included)... Normal [facility] Basic metabolic 2000 panelon 01-24-2023 Anion gap [Moles/Vol] 10 mmol/L Normal 9-18 [facility] Comment on above: Order Comment: Speci men Type: BLOOD SPECIMEN [facility] Address: [address] [place] [address] Performed By: #### 2 4321-2, 85283-2, 2777-1 #### [facility] CLIA [id number] [address] [place] [address] [place] Calcium [Mass/Vol] 9.3 mg/dL Normal 8.5-10.2 [facility] Comment on above: Order Comment: Speci men Type: BLOOD SPECIMEN [facility] Address: [address] [place] [address] Performed By: #### 2 4321-2, , 2776-03 #### [facility] CLIA [id number] [address] [place] Chloride [Moles/Vol] 102 mmol/L Normal 97-105 [facility] Comment on above: Order Comment: Speci men Type: BLOOD SPECIMEN [facility] Address: [address] [place] [address] Performed By: #### 2 4321-2, , 2776-03 #### [facility] CLIA [id number] [address] STATES OF [facility] CO2 [Moles/Vol] 24 mmol/L Normal 22-30 [facility] Comment on above: Order Comment: Speci men Type: BLOOD SPECIMEN [facility] Address: [address] [place] [address] Performed By: #### 2 4321-2, , 2776-03 #### [facility] CLIA [id number] [address] [place] Creatinine [Mass/Vol] 1.05 mg/dL High 0.58-0.96 [facility] Comment on above: Order Comment: Speci men Type: BLOOD SPECIMEN [facility] Address: [address] [place] [address] Performed By: #### 2 4321-2, , 2776-03 #### [facility] CLIA [id number] [address] Creatinine and Glomerular filtration rate.predicted panel (S/P/Bld) 56 mL/min/1.73m??? Low >=60 [facility] Comment on above: Order Comment: Speci men Type: BLOOD SPECIMEN [facility] Address: [address] [place] [address] Result Comment: Bhavani mated Glomerular Filtration Rate (eGFR) is calculated using the 2020 CKD-EPI creatinine equation. This equation utilizes serum creatinine, sex, and age as parameters. The creatinine assay has traceable calibration to isotope dilution-mass spectrometry. Refer to KDIGO guidelines for clinical interpretation. In patients with unstable renal function, e.g. those with acute kidney injury, the eGFR may not accurately reflect actual GFR. Performed By: #### 2 4321-2, , 2776-03 #### [facility] CLIA [id number] [address] [place] [address] [place] Glucose [Mass/Vol] 239 mg/dL High 74-99 [facility] Comment on above: Order Comment: Debbie pagan Type: BLOOD SPECIMEN [facility] Address: [address] [place] [address] Result Comment: The [place] Diabetes Association (ADA) provides guidance for cutoff values for fasting glucose and random glucose. The ADA defines fasting as no caloric intake for at least 8 hours. Fasting plasma glucose results between 100 to 125 mg/dL indicate increased risk for diabetes (prediabetes). Fasting plasma glucose results greater than or equal to 126 mg/dL meet the criteria for diagnosis of diabetes. In the absence of unequivocal hyperglycemia, results should be confirmed by repeat testing. In a patient with classic symptoms of hyperglycemia or hyperglycemic crisis, random plasma glucose results greater than or equal to 200 mg/dL meet the criteria for diagnosis of diabetes. Reference: Standards of Medical Care in Diabetes 2016, [place] [employer] Association. Diabetes Care. 2016.39(Suppl 1). Performed By: #### 2 4321-2, , 2776-03 #### [facility] CLIA [id number] [address] [place] [address] [place] Potassium [Moles/Vol] 4.7 mmol/L Normal 3.7-5.1 [facility] Comment on above: Order Comment: Debbie pagan Type: BLOOD SPECIMEN [facility] Address: [address] [place] [address] Performed By: #### 2 4321-2, , 2776-03 #### [facility] CLIA [id number] [address] [place] Sodium [Moles/Vol] 136 mmol/L Normal 136-144 [facility] Comment on above: Order Comment: Speci men Type: BLOOD SPECIMEN [facility] Address: [address] [place] [address] Performed By: #### 2 4321-2, 62748-0, 2776-1 #### [facility] CLIA [id number] [address] [place] Urea nitrogen [Mass/Vol] 32 mg/dL High 7-21 [facility] Comment on above: Order Comment: Speci men Type: BLOOD SPECIMEN [facility] Address: [address] [place] [address] Performed By: #### 2 4321-2, , 2776-03 #### [facility] CLIA [id number] [address] [place] [facility] CBC panel Auto (Bld)on 01-24 Erythrocyte distribution width (RBC) [Ratio] 13.4 % Normal 11.5-15.0 [facility] Comment on above: Order Comment: Speci men Type: BLOOD SPECIMEN [facility] Address: [address] [place] [address] Performed By: #### 3 4528-0 #### [facility] CLIA [id number] [address] [place] Hematocrit (Bld) [Volume fraction] 34.3 % Low 36.0-46.0 [facility] Comment on above: Order Comment: Speci men Type: BLOOD SPECIMEN [facility] Address: [address] [place] [address] Performed By: #### 3 4528-0 #### [facility] CLIA [id number] [address] [place] Hemoglobin (Bld) [Mass/Vol] 11.3 g/dL Low 11.5-15.5 [facility] Comment on above: Order Comment: Speci men Type: BLOOD SPECIMEN [facility] Address: [address] [place] [address] Performed By: #### 3 4528-0 #### [facility] CLIA [id number] [address] MCH (RBC) [Entitic mass] 28.0 pg Normal 26.0-34.0 [facility] Comment on above: Order Comment: Speci men Type: BLOOD SPECIMEN [facility] Address: [address] [place] [address] Performed By: #### 3 4528-0 #### [facility] CLIA [id number] [address] MCHC (RBC) [Mass/Vol] 32.9 g/dL Normal 30.5-36.0 [facility] Comment on above: Order Comment: Speci men Type: BLOOD SPECIMEN [facility] Address: [address] [place] [address] Performed By: #### 3 4528-0 #### [facility] CLIA [id number] [address] MCV (RBC) [Entitic vol] 84.9 fL Normal 80.0-100.0 [facility] Comment on above: Order Comment: Speci men Type: BLOOD SPECIMEN [facility] Address: [address] [place] [address] Performed By: #### 3 4528-0 #### [facility] CLIA [id number] [address] Nucleated RBC (Bld) [#/Vol] 10*3/uL Normal <0.01 [facility] Comment on above: Order Comment: Speci men Type: BLOOD SPECIMEN [facility] Facility[facility] Address: [address] [place] [address] Performed By: #### 3 4528-0 #### [facility] CLIA [id number] [address] [place] [address] [place] Platelet mean volume (Bld) [Entitic vol] 10.7 fL Normal 9.0-12.7 [facility] Comment on above: Order Comment: Beni men Type: BLOOD SPECIMEN [facility] Facility[facility] Address: [address] [place] [address] Performed By: #### 3 4528-0 #### [facility] CLIA [id number] [address] [place] Platelets (Bld) [#/Vol] 290 10*3/uL Normal 150-400 [facility] Comment on above: Order Comment: Beni ej Type: BLOOD SPECIMEN [facility] Facility[facility] Address: [address] [place] [address] Performed By: #### 3 4528-0 #### [facility] CLIA [id number] [address] STATES OF [facility] RBC (Bld) [#/Vol] 4.04 10*6/uL Normal 3.90-5.20 [facility] Comment on above: Order Comment: Beni men Type: BLOOD SPECIMEN [facility] Address: [address] [place] [address] Performed By: #### 3 4528-0 #### [facility] CLIA [id number] [address] [place] WBC (Bld) [#/Vol] 11.68 10*3/uL High 3.70-11.00 [facility] Comment on above: Order Comment: Speci men Type: BLOOD SPECIMEN [facility] Address: [address] [place] [address] Performed By: #### 3 4528-0 #### [facility] CLIA [id number] [address] CONSULT PROGon 01-24-2023 CONSULT PROG HNO ID: [id number] Author: Merrick Becker RPh Service: Pharmacy Author Type: Pharmacist Type: Consult Progress Note Filed: 01/24/2023 4:43 PM Note Text: PHARMACY ANTICOAGULATION CONSULT PATIENT NAME: Laisha Walker DATE of SERVICE: 01/24/2023 TIME of SERVICE: 4:34 PM Indication for Anticoagulation: A fib Goal INR: 2.0 to 2.5 Per consult order target INR is in low 2s for pacemaker implantation tentatively Tuesday - Pacer placed Goal remains 2.0-2.5 Expected Duration of Therapy: Indefinite Assessment: New Start: No Home Dose: warfarin 2.5 mg TTS, 5 mg all other days (per last outpatient anticoagulation note on 12/30/22. INR at that time was 2.6). Patient was due for a follow-up INR on 01/20/23. 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 Based on the dosing algorithm approved by the hospital Pharmacy and Therapeutics Committee, the following order will be initiated: Pharmacy re-consulted for warfarin dosing and monitoring. Goal INR adjusted to 2-2.5 with notes to target INR in low 2s for pacemaker implantation today Ordered 2.5 mg PO x 1 today. Conservative dosing given lower target INR and DDI with prednisone (risk of INR elevation). Consider increasing dose back to home dose along with INR goal once stable post pacemaker placement. Patient?s INR, condition, and signs/symptoms of bleeding will be monitored daily. Recommended post discharge dosing: Warfarin 2.5 mg TTS, 5mg every other days, with an INR check in 3-5 days. Thank you for allowing me to participate in the care for this patient. Current Laboratory Values Recent Labs 01/24/23 0410 01/23/23 0135 01/22/23 0324 12/30/22 1447 INR 1.7* 1.7* 2.0* 2.6* Recent Labs 01/24/23 0410 01/23/23 0135 01/22/23 0324 08/10/22 1035 HB 11.3* 10.6* 11.0* 12.8 HCT 34.3* 33.0* 33.4* 40.2 PLT 290 277 274 255 Estimated Creatinine Clearance: 51.8 mL/min (A) (based on SCr of 1.05 mg/dL (H)). Current Medications Current Facility-Administered Medications Medication Dose Route Frequency rosuvastatin 20 mg tab(s) (CRESTOR) 20 mg ORAL DAILY losartan 12.5 mg tab(s) (COZAAR) 12.5 mg ORAL DAILY potassium chloride ER 20-40 mEq tab(s) (KLOR-CON) 20-40 mEq ORAL/FEEDING TUBE PRN Or potassium chloride iv piggyback 20 mEq/100 mL 20 mEq INTRAVENOUS PRN phosphorus 500 mg tab(s) (K PHOS NEUTRAL) 500 mg ORAL/FEEDING TUBE PRN(NO DISPENSE) calcium gluconate iv piggyback 2 g in NaCl (iso-osmotic) 100 mL 2 g INTRAVENOUS PRN(NO DISPENSE) NaCl 0.9% iv flush bag 20 mL INTRAVENOUS PRN sodium chloride 0.9 % (flush) 2-10 mL (BD POSIFLUSH) 2-10 mL INTRAVENOUS DIRECTED PRN And perflutren lipid microspheres 1.1 mg/mL 1.3 mL injection (DEFINITY) 1.3 mL INTRAVENOUS DIRECTED PRN atropine 0.4 mg injection 0.4 mg INTRAVENOUS PRN(NO DISPENSE) dextrose 15 gram/32 mL 15 g (TRUEPLUS) 15 g ORAL PRN Or glucagon 1 mg injection 1 mg INTRAMUSCULAR PRN Or dextrose 10% iv bolus 12.5 g INTRAVENOUS PRN predniSONE 40 mg tab(s) (DELTASONE) 40 mg ORAL DAILY AT 12 PM insulin lispro injection (rapid acting) (ADMElog) SUBCUTANEOUS w MEALS acetaminophen 1,000 mg tab(s) (TYLENOL) 1,000 mg ORAL q 6 H PRN WARFARIN DOSING PER PHARMACY 1 Each OTHER DAILY - WARFARIN [START ON 01/25/2023] vancomycin 1.5 g in NaCl 0.9% 250 mL (VANCOCIN) 0.015 g/kg/dose INTRAVENOUS ONCE warfarin 2.5 mg tab(s) (COUMADIN) 2.5 mg ORAL ONCE - WARFARIN Has patient received education: No, not a new start medication Signature: Merrick Becker [facility] EKGon 01-24-2023 Electrocardiogram Ventricular Rate : 1 01 BPM Atrial Rate : 101 BPM P-R Interval : 188 ms QRS Duration : 112 ms Q-T Interval : 356 ms QTC Calculation(Bazett) : 461 ms Calculated P Kingfield : 73 degrees Calculated R [place] : -28 degrees Calculated T [place] : 3 degrees SINUS TACHYCARDIA INCOMPLETE RIGHT BUNDLE BRANCH BLOCK MODERATE VOLTAGE CRITERIA FOR LVH, MAY BE NORMAL VARIANT ( R in aVL , [place] product ) BORDERLINE ECG WHEN COMPARED WITH ECG OF 24-JAN-2023 19:25, SINUS RHYTHM HAS REPLACED ELECTRONIC VENTRICULAR PACEMAKER VENT. RATE HAS DECREASED BY 147 BPM Confirmed by MD WEIR KAMALESH ([id number]) on 01/25/2023 12:06:24 PM NAME : LAISHA WALKER PID : [id number] : 1950 Gender : Female Race : ORD : Procedure Date : Jan 24 2023 19:50:00 Edit Date : Jan 25 2023 12:06:25 Diagnosis: SINUS TACHYCARDIA INCOMPLETE RIGHT BUNDLE BRANCH BLOCK MODERATE VOLTAGE CRITERIA FOR LVH, MAY BE NORMAL VARIANT ( R in aVL , [place] product ) BORDERLINE ECG WHEN COMPARED WITH ECG OF 24-JAN-2023 19:25, SINUS RHYTHM HAS REPLACED ELECTRONIC VENTRICULAR PACEMAKER VENT. RATE HAS DECREASED BY 147 BPM Confirmed by MD WEIR KAMALESH ([id number]) on 01/25/2023 12:06:24 PM Test Reason : Location : 200 : [place] [address] Overread By : MD WEIR KAMALESH Edited By : MD WEIR KAMALESH Referred By : BONNIE RAMIREZ Acquired by : LYNDA AUSTIN [facility] Electrocardiogram Ventricular Rate : 1 26 BPM QRS Duration : 94 ms Q-T Interval : 88 ms QTC Calculation(Bazett) : 128 ms Calculated R [place] : -92 degrees Calculated T [place] : 0 degrees ventricular-paced complexes INFERIOR INFARCT , AGE UNDETERMINED ANTEROLATERAL INFARCT , AGE UNDETERMINED ABNORMAL ECG WHEN COMPARED WITH ECG OF 24-JAN-2023 19:23, VENT. RATE HAS INCREASED BY 124 BPM Confirmed by MD WEIR KAMALESH ([id number]) on 01/25/2023 12:06:13 PM NAME : LAISHA WALKER PID : [id number] : 1950 Gender : Female Race : ORD : Procedure Date : Jan 24 2023 19:25:03 Edit Date : Jan 25 2023 12:06:16 Diagnosis: ventricular-paced complexes INFERIOR INFARCT , AGE UNDETERMINED ANTEROLATERAL INFARCT , AGE UNDETERMINED ABNORMAL ECG WHEN COMPARED WITH ECG OF 24-JAN-2023 19:23, VENT. RATE HAS INCREASED BY 124 BPM Confirmed by MD WEIR KAMALESH ([id number]) on 01/25/2023 12:06:13 PM Test Reason : Location : [facility] : [place] [address] Overread By : MD WEIR KAMALESH Edited By : MD WEIR KAMALESH Referred By : BONNIE RAMIREZ Acquired by : LYNDA AUSTIN [facility] Electrocardiogram Ventricular Rate : 1 24 BPM Atrial Rate : 124 BPM QRS Duration : 108 ms Q-T Interval : 332 ms QTC Calculation(Bazett) : 476 ms Calculated R Kingfield : -34 degrees Calculated T [place] : 9 degrees Ventricular-paced rhythm ABNORMAL ECG WHEN COMPARED WITH ECG OF 24-JAN-2023 19:20, ELECTRONIC VENTRICULAR PACEMAKER HAS REPLACED SINUS RHYTHM Confirmed by MD EMERY YASSAR ([id number]) on 01/25/2023 11:51:25 AM NAME : LAISHA WALKER PID : [id number] : 1950 Gender : Female Race : ORD : Procedure Date : Jan 24 2023 19:23:40 Edit Date : Jan 25 2023 11:51:25 Diagnosis: Ventricular-paced rhythm ABNORMAL ECG WHEN COMPARED WITH ECG OF 24-JAN-2023 19:20, ELECTRONIC VENTRICULAR PACEMAKER HAS REPLACED SINUS RHYTHM Confirmed by MD EMERY YASSAR ([id number]) on 01/25/2023 11:51:25 AM Test Reason : Location : [facility] : [place] [address] Overread By : MD EMERY YASSAR Edited By : MD EMERY YASSAR Referred By : BONNIE RAMIREZ Acquired by : LYNDA AUSTIN [facility] Electrocardiogram Ventricular Rate : 1 27 BPM Atrial Rate : 127 BPM P-R Interval : 136 ms QRS Duration : 106 ms Q-T Interval : 360 ms QTC Calculation(Bazett) : 523 ms Calculated R [place] : -31 degrees Calculated T [place] : 12 degrees SINUS TACHYCARDIA LEFT AXIS DEVIATION INCOMPLETE RIGHT BUNDLE BRANCH BLOCK MODERATE VOLTAGE CRITERIA FOR LVH, MAY BE NORMAL VARIANT ( R in aVL , [place] product ) ABNORMAL ECG NO PREVIOUS ECGS AVAILABLE Confirmed by MD EMERY YASSAR ([id number]) on 01/25/2023 11:49:48 AM NAME : LAISHA WALKER PID : [id number] : 1950 Gender : Female Race : ORD : Procedure Date : Jan 24 2023 19:20:50 Edit Date : Jan 25 2023 11:50:02 Diagnosis: SINUS TACHYCARDIA LEFT AXIS DEVIATION INCOMPLETE RIGHT BUNDLE BRANCH BLOCK MODERATE VOLTAGE CRITERIA FOR LVH, MAY BE NORMAL VARIANT ( R in aVL , [place] product ) ABNORMAL ECG NO PREVIOUS ECGS AVAILABLE Confirmed by MD EMERY YASSAR ([id number]) on 01/25/2023 11:49:48 AM Test Reason : Location : 200 : [place] [address] Overread By : MD EMERY YASSAR Edited By : MD EMERY YASSAR Referred By : BONNIE RAMIREZ Acquired by : LYNDA AUSTIN [facility] Magnesium SerPl-mCncon 01-24 Magnesium [Mass/Vol] 2.3 mg/dL Normal 1.7-2.3 [facility] Comment on above: Order Comment: Debbie pagan Type: BLOOD SPECIMEN [facility] Address: [address] [place] [address] Performed By: #### 2 4321-2, 05740-1, 2777-1 #### [facility] CLIA [id number] [address] OF [facility] PT panel Coag (PPP)on 2022 INR Coag (PPP) [Relative time] 1.7 {INR} High 0.9-1.3 [facility] Comment on above: Order Comment: Debbie pagan Type: BLOOD SPECIMEN [facility] Address: [address] [place] [address] Result Comment: Daja min K Antagonist (VKA) Therapeutic Range: INR 2 to 3 (Target INR of 2.5) Note: For patients treated with VKA drugs, such as warfarin, the [place] [employer] 2012 Guideline recommends a therapeutic INR range of 2 to 3 (target INR of 2.5). This recommendation includes high-risk patients with antiphospholipid syndrome with previous arterial or venous thromboembolism, current-generation mechanical or bioprosthetic aortic heart valve replacement. Note: Patients with mechanical aortic valve replacement and additional risk factors for thromboembolic events (atrial fibrillation, previous thromboembolism, LV dysfunction, hypercoagulable conditions) or an older generation mechanical AVR (i.e., ball in-Cage) or any mechanical MVR should have a INR therapeutic range of 2.5 to 3.5 (target INR of 3). Joseph GH, et al. Chest 2012, 141:7S-47S Yoli RA, et al. [facility] 2017, 70: 252-289 Performed By: #### 3 4528-0 #### [facility] CLIA [id number] [address] STATES [place] [facility] PT Coag (PPP) [Time] 17.5 s High 9.7-13.0 [facility] Comment on above: Order Comment: Beni ej Type: BLOOD SPECIMEN [facility] Address: [address] [place] [address] Performed By: #### 3 4528-0 #### [facility] CLIA [id number] [address] [place] Phosphate SerPl-mCncon 01-24 Phosphate [Mass/Vol] 3.8 mg/dL Normal 2.7-4.8 [facility] Comment on above: Order Comment: Debbie pagan Type: BLOOD SPECIMEN [facility] Address: [address] [place] [address] Performed By: #### 2 4321-2, 01232-3, 2777-1 #### [facility] CLIA [id number] [address] [place] [address] Urinalysis complete panel (U )on 01-24-2023 Bilirubin Ql (U) Negative Normal Negative [facility] Comment on above: Order Comment: Debbie pagan Type: URINE SPECIMENOrdering Facility: [facility] Address: [address] [place] [address] Performed By: #### 2 4356-8 ####[facility]IA [id number] [address] [place] Clarity (Unsp spec) Clear Normal Clear [facility] Comment on above: Order Comment: Speci men Type: URINE SPECIMENOrdering Facility: [facility] Address: [address] [place] [address] Performed By: #### 2 4356-8 ####[facility]IA [id number] [address] [place] Color (U) Colorless Normal yellow [facility] Comment on above: Order Comment: Speci men Type: URINE SPECIMENOrdering Facility: [facility] Address: [address] [place] [address] Performed By: #### 2 4356-8 ####[facility]CLIA [id number] [address] Glucose Test strip (U) [Mass/Vol] 4+ Abnormal Trace, Negative [facility] Comment on above: Order Comment: Speci men Type: URINE SPECIMENOrdering Facility: [facility] Address: [address] [place] [address] Performed By: #### 2 4356-8 ####[facility]ORYCLIA [id number] [place] [address] [place] Hemoglobin Ql (U) Negative Normal Negative, Trace [facility] Comment on above: Order Comment: Speci men Type: URINE SPECIMENOrdering Facility: [facility] Address: [address] [place] [address] Performed By: #### 2 4356-8 ####[facility]ORYCLIA [id number] [address] [place] Ketones Ql (U) Negative Normal Negative, Trace [facility] Comment on above: Order Comment: Speci men Type: URINE SPECIMENOrdering Facility: [facility] Address: [address] [place] [address] Performed By: #### 2 4356-8 ####[facility]ORYCLIA [id number] [address] [place] Leukocyte esterase Test strip Ql (U) Negative Normal Negative, 25 Katya/uL [facility] Comment on above: Order Comment: Speci men Type: URINE SPECIMENOrdering Facility: [facility] Address: [address] [place] [address] Performed By: #### 2 4356-8 ####[facility]ORYCLIA [id number] [address] [place] Nitrite Ql (U) Negative Normal Negative [facility] Comment on above: Order Comment: Speci men Type: URINE SPECIMENOrdering Facility: [facility] Address: [address] [place] [address] Performed By: #### 2 4356-8 ####[facility]ORYCLIA [id number] [address] [place] pH (U) 7.0 [pH] Normal 5.0-8.0 [facility] Comment on above: Order Comment: Speci men Type: URINE SPECIMENOrdering Facility: [facility] Address: [address] [place] [address] Performed By: #### 2 4356-8 ####[facility]ORYCLIA [id number] [address] [place] Protein (U) [Mass/Vol] Negative Normal Trace , Negative [facility] Comment on above: Order Comment: Speci men Type: URINE SPECIMENOrdering Facility: [facility] Address: [address] [place] [address] Performed By: #### 2 4356-8 ####[facility]ORYCLIA [id number] [place] [address] [place] RBC LM.HPF (Urine sed) [#/Area] 0-3 /HPF Normal 0-3 /HPF [facility] Comment on above: Order Comment: Speci men Type: URINE SPECIMENOrdering Facility: [facility] Address: [address] [place] [address] Performed By: #### 2 4356-8 ####[facility]ORYCLIA [id number] [address] [place] Specific gravity (U) [Rel density] 1.011 Normal 1.005-1.030 [facility] Comment on above: Order Comment: Speci men Type: URINE SPECIMENOrdering Facility: [facility] Address: [address] [place] [address] Performed By: #### 2 4356-8 ####[facility]ORYCLIA [id number] [address] OF [facility] Urobilinogen Ql (U) Normal Normal Negative [facility] Comment on above: Order Comment: Speci men Type: URINE SPECIMENOrdering Facility: [facility] Address: [address] [place] [address] Performed By: #### 2 4356-8 ####[facility]ORYCLIA [id number] [address] STATES OF [facility] WBC LM.HPF (Urine sed) [#/Area] 0-5 /HPF Normal 0-5 /HPF [facility] Comment on above: Order Comment: Speci men Type: URINE SPECIMENOrdering Facility: [facility] Address: [address] [place] [address] Performed By: #### 2 4356-8 ####[facility]ORYCLIA [id number] [place] [address] [place] Basic metabolic 2000 panelon 01-23-2023 Anion gap [Moles/Vol] 11 mmol/L Normal 9-18 [facility] Comment on above: Order Comment: Speci men Type: BLOOD SPECIMEN [facility] Address: [address] [place] [address] Performed By: #### 3 4528-0 #### [facility] CLIA [id number] 1 [place] [address] [place] Calcium [Mass/Vol] 9.2 mg/dL Normal 8.5-10.2 [facility] Comment on above: Order Comment: Speci men Type: BLOOD SPECIMEN [facility] Address: [address] [place] [address] Performed By: #### 3 4528-0 #### [facility] CLIA [id number] [address] [place] Chloride [Moles/Vol] 100 mmol/L Normal 97-105 [facility] Comment on above: Order Comment: Speci men Type: BLOOD SPECIMEN [facility] Address: [address] [place] [address] Performed By: #### 3 4528-0 #### [facility] CLIA [id number] [address] CO2 [Moles/Vol] 23 mmol/L Normal 22-30 [facility] Comment on above: Order Comment: Speci men Type: BLOOD SPECIMEN [facility] Address: [address] [place] [address] Performed By: #### 3 4528-0 #### [facility] CLIA [id number] [address] [place] [address] Creatinine [Mass/Vol] 0.89 mg/dL Normal 0.58-0.96 [facility] Comment on above: Order Comment: Speci men Type: BLOOD SPECIMEN [facility] Address: [address] [place] [address] Performed By: #### 3 4528-0 #### [facility] CLIA [id number] [address] Creatinine and Glomerular filtration rate.predicted panel (S/P/Bld) 68 mL/min/1.73m??? Normal >=60 [facility] Comment on above: Order Comment: Speci men Type: BLOOD SPECIMEN [facility] Address: [address] [place] [address] Result Comment: Bhavani mated Glomerular Filtration Rate (eGFR) is calculated using the 2020 CKD-EPI creatinine equation. This equation utilizes serum creatinine, sex, and age as parameters. The creatinine assay has traceable calibration to isotope dilution-mass spectrometry. Refer to KDIGO guidelines for clinical interpretation. In patients with unstable renal function, e.g. those with acute kidney injury, the eGFR may not accurately reflect actual GFR. Performed By: #### 3 4528-0 #### [facility] CLIA [id number] [address] Glucose [Mass/Vol] 364 mg/dL High 74-99 [facility] Comment on above: Order Comment: Debbie pagan Type: BLOOD SPECIMEN [facility] Address: [address] [place] [address] Result Comment: The [place] Diabetes Association (ADA) provides guidance for cutoff values for fasting glucose and random glucose. The ADA defines fasting as no caloric intake for at least 8 hours. Fasting plasma glucose results between 100 to 125 mg/dL indicate increased risk for diabetes (prediabetes). Fasting plasma glucose results greater than or equal to 126 mg/dL meet the criteria for diagnosis of diabetes. In the absence of unequivocal hyperglycemia, results should be confirmed by repeat testing. In a patient with classic symptoms of hyperglycemia or hyperglycemic crisis, random plasma glucose results greater than or equal to 200 mg/dL meet the criteria for diagnosis of diabetes. Reference: Standards of Medical Care in Diabetes 2016, [place] [employer] Association. Diabetes Care. 2016.39(Suppl 1). Performed By: #### 3 4528-0 #### [facility] CLIA [id number] [address] [place] [address] [place] Potassium [Moles/Vol] 4.6 mmol/L Normal 3.7-5.1 [facility] Comment on above: Order Comment: Debbie pagan Type: BLOOD SPECIMEN [facility] Address: [address] [place] [address] Performed By: #### 3 4528-0 #### [facility] CLIA [id number] [address] [place] [address] [place] Sodium [Moles/Vol] 134 mmol/L Low 136-144 [facility] Comment on above: Order Comment: Debbie pagan Type: BLOOD SPECIMEN [facility] Address: [address] [place] [address] Performed By: #### 3 4528-0 #### [facility] CLIA [id number] [address] [place] [address] [place] Urea nitrogen [Mass/Vol] 26 mg/dL High 7-21 [facility] Comment on above: Order Comment: Debbie pagan Type: BLOOD SPECIMEN [facility] Address: [address] [place], [place] [id number] Performed By: #### 3 4528-0 #### [facility] CLIA [id number] [address] CBC panel Auto (Bld)on 01-23 Erythrocyte distribution width (RBC) [Ratio] 13.8 % Normal 11.5-15.0 [facility] Comment on above: Order Comment: Speci men Type: BLOOD SPECIMEN [facility] Address: [address] [place] [address] Performed By: #### 3 4528-0 #### [facility] CLIA [id number] [address] Hematocrit (Bld) [Volume fraction] 33.0 % Low 36.0-46.0 [facility] Comment on above: Order Comment: Speci men Type: BLOOD SPECIMEN [facility] Address: [address] [place] [address] Performed By: #### 3 4528-0 #### [facility] CLIA [id number] [address] Hemoglobin (Bld) [Mass/Vol] 10.6 g/dL Low 11.5-15.5 [facility] Comment on above: Order Comment: Speci men Type: BLOOD SPECIMEN [facility] Address: [address] [place] [address] Performed By: #### 3 4528-0 #### [facility] CLIA [id number] [address] MCH (RBC) [Entitic mass] 27.2 pg Normal 26.0-34.0 [facility] Comment on above: Order Comment: Speci men Type: BLOOD SPECIMEN [facility] Address: [address] [place] [address] Performed By: #### 3 4528-0 #### [facility] CLIA [id number] 1 [address] [address] MCHC (RBC) [Mass/Vol] 32.1 g/dL Normal 30.5-36.0 [facility] Comment on above: Order Comment: Speci men Type: BLOOD SPECIMEN Ordering Facility: [facility] Address: [address] [place] [address] Performed By: #### 3 4528-0 #### [facility] CLIA [id number] [address] MCV (RBC) [Entitic vol] 84.8 fL Normal 80.0-100.0 [facility] Comment on above: Order Comment: Speci men Type: BLOOD SPECIMEN Ordering Facility: [facility] Address: [address] [place] [address] Performed By: #### 3 4528-0 #### [facility] CLIA [id number] [address] Nucleated RBC (Bld) [#/Vol] 10*3/uL Normal <0.01 [facility] Comment on above: Order Comment: Speci men Type: BLOOD SPECIMEN [facility]ing Facility: [facility] Address: [address] [place] [address] Performed By: #### 3 4528-0 #### [facility] CLIA [id number] [address] Platelet mean volume (Bld) [Entitic vol] 11.1 fL Normal 9.0-12.7 [facility] Comment on above: Order Comment: Speci men Type: BLOOD SPECIMEN [facility] Facility[facility] Address: [address] [place] [address] Performed By: #### 3 4528-0 #### [facility] CLIA [id number] [address] [place] Platelets (Bld) [#/Vol] 277 10*3/uL Normal 150-400 [facility] Comment on above: Order Comment: Speci men Type: BLOOD SPECIMEN [facility]ing Facility[facility] Address: [address] [place] [address] Performed By: #### 3 4528-0 #### [facility] CLIA [id number] [address] [place] RBC (Bld) [#/Vol] 3.89 10*6/uL Low 3.90-5.20 [facility] Comment on above: Order Comment: Debbie pagan Type: BLOOD SPECIMEN [facility] Address: [address] [place] [address] Performed By: #### 3 4528-0 #### [facility] CLIA [id number] [address] [place] WBC (Bld) [#/Vol] 11.55 10*3/uL High 3.70-11.00 [facility] Comment on above: Order Comment: Debbie pagan Type: BLOOD SPECIMEN [facility] Address: [address] [place] [address] Performed By: #### 3 4528-0 #### [facility] CLIA [id number] [address] CONSULT PROGon 01-23-2023 CONSULT PROG HNO ID: [id number] Author: Ratna Kendrick RPh Service: Pharmacy Author Type: Pharmacist Type: Consult Progress Note Filed: 01/23/2023 11:53 AM Note Text: PHARMACY ANTICOAGULATION CONSULT PATIENT NAME: Laisha Walker DATE of SERVICE: 01/22/2023 TIME of SERVICE: 10:35 AM Indication for Anticoagulation: A fib Goal INR: 2-2.5* Per consult order target INR is in low 2s for pacemaker implantation tentatively Tuesday Expected Duration of Therapy: Indefinite Assessment: New Start: No Home Dose: warfarin 2.5 mg TTS, 5 mg all other days (per last outpatient anticoagulation note on 12/30/22. INR at that time was 2.6). Patient was due for a follow-up INR on 01/20/23. 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 Based on the dosing algorithm approved by the hospital Pharmacy and Therapeutics Committee, the following order will be initiated: Pharmacy re-consulted today for warfarin dosing and monitoring. Goal INR adjusted to 2-2.5 with notes to target INR in low 2s for pacemaker implantation tentatively tomorrow Will order 2.5 mg PO x 1 today (instead of 5 mg [employer] I ASSEMBLER dosing). This is 50% of the patient's home dose. Conservative dosing given lower target INR and DDI with prednisone (risk of INR elevation). Patient?s INR, condition, and signs/symptoms of bleeding will be monitored daily. Recommended post discharge dosing: TBD; anticipate resuming [employer] ASSEMBLER dosing of: warfarin 2.5 mg TTS, 5 mg all other days with outpatient follow-up in 3-5 days. Thank you for allowing me to participate in the care for this patient. Current Laboratory Values Recent Labs 01/23/23 0135 01/22/23 0324 12/30/22 1447 11/19/22 0910 INR 1.7* 2.0* 2.6* 2.4* Recent Labs 01/23/23 0135 01/22/23 0324 08/10/22 1035 HB 10.6* 11.0* 12.8 HCT 33.0* 33.4* 40.2 PLT 277 274 255 Estimated Creatinine Clearance: 61.1 mL/min (based on SCr of 0.89 mg/dL). Current Medications Current Facility-Administered Medications Medication Dose Route Frequency rosuvastatin 20 mg tab(s) (CRESTOR) 20 mg ORAL DAILY losartan 12.5 mg tab(s) (COZAAR) 12.5 mg ORAL DAILY potassium chloride ER 20-40 mEq tab(s) (KLOR-CON) 20-40 mEq ORAL/FEEDING TUBE PRN Or potassium chloride iv piggyback 20 mEq/100 mL 20 mEq INTRAVENOUS PRN phosphorus 500 mg tab(s) (K PHOS NEUTRAL) 500 mg ORAL/FEEDING TUBE PRN(NO DISPENSE) calcium gluconate iv piggyback 2 g in NaCl (iso-osmotic) 100 mL 2 g INTRAVENOUS PRN(NO DISPENSE) NaCl 0.9% iv flush bag 20 mL INTRAVENOUS PRN sodium chloride 0.9 % (flush) 2-10 mL (BD POSIFLUSH) 2-10 mL INTRAVENOUS DIRECTED PRN And perflutren lipid microspheres 1.1 mg/mL 1.3 mL injection (DEFINITY) 1.3 mL INTRAVENOUS DIRECTED PRN atropine 0.4 mg injection 0.4 mg INTRAVENOUS PRN(NO DISPENSE) dextrose 15 gram/32 mL 15 g (TRUEPLUS) 15 g ORAL PRN Or glucagon 1 mg injection 1 mg INTRAMUSCULAR PRN Or dextrose 10% iv bolus 12.5 g INTRAVENOUS PRN predniSONE 40 mg tab(s) (DELTASONE) 40 mg ORAL DAILY AT 12 PM insulin lispro injection (rapid acting) (ADMElog) SUBCUTANEOUS w MEALS [START ON 01/24/2023] vancomycin 1.5 g in NaCl 0.9% 250 mL (VANCOCIN) 0.015 g/kg/dose 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 Comment on above: Order Comment: Debbie pagan Type: BLOOD SPECIMEN [facility] Address: [address] [place] [address] Performed By: #### 3 4528-0 #### [facility] CLIA [id number] [address] OF [facility] PT panel Coag (PPP)on 2022 INR Coag (PPP) [Relative time] 1.7 {INR} High 0.9-1.3 [facility] Comment on above: Order Comment: Debbie pagan Type: BLOOD SPECIMEN [facility] Address: [address] [place] [address] Result Comment: Daja min K Antagonist (VKA) Therapeutic Range: INR 2 to 3 (Target INR of 2.5) Note: For patients treated with VKA drugs, such as warfarin, the [place] [employer] 2012 Guideline recommends a therapeutic INR range of 2 to 3 (target INR of 2.5). This recommendation includes high-risk patients with antiphospholipid syndrome with previous arterial or venous thromboembolism, current-generation mechanical or bioprosthetic aortic heart valve replacement. Note: Patients with mechanical aortic valve replacement and additional risk factors for thromboembolic events (atrial fibrillation, previous thromboembolism, LV dysfunction, hypercoagulable conditions) or an older generation mechanical AVR (i.e., ball in-Cage) or any mechanical MVR should have a INR therapeutic range of 2.5 to 3.5 (target INR of 3). Joseph GH, et al. Chest 2012, 141:7S-47S Yoli RA, et al. [facility] 2017, 70: 252-289 Performed By: #### 3 4528-0 #### [employer] [facility] CLIA [id number] [address] [place] [address] [place] PT Coag (PPP) [Time] 17.7 s High 9.7-13.0 [facility] Comment on above: Order Comment: Debbie pagan Type: BLOOD SPECIMEN [facility] Address: [address] [place] [address] Performed By: #### 3 4528-0 #### [facility] CLIA [id number] [address] [place] [address] [place] Phosphate SerPl-mCncon 01-23 Phosphate [Mass/Vol] 4.0 mg/dL Normal 2.7-4.8 [facility] Comment on above: Order Comment: Debbie pagan Type: BLOOD SPECIMEN [facility] Address: [address] [place] [address] Performed By: #### 3 4528-0 #### [facility] CLIA [id number] [address] [place] [address] [place] B. burgdorferi IgG and IgM p kaira (S)on 01-22-2023 B. burgdorferi IgG+IgM Qn (S) Negative Normal Negative [facility] Comment on above: Order Comment: Debbie pagan Type: BLOOD SPECIMEN [facility] Address: [address] [place] [address] Result Comment: Rece nt infection with B. burgdorferi sensu lato cannot be excluded if the specimen collected within four weeks after the onset of signs and symptoms or within six weeks after a known tick exposure. Clinical and epidemiological correlation is required. Performed By: #### 3 4942-3 #### [facility] CLIA [id number] [address] [facility] [id number] OF [facility] CBC panel Auto (Bld)on 01-22 Erythrocyte distribution width (RBC) [Ratio] 13.6 % Normal 11.5-15.0 [facility] Comment on above: Order Comment: Speci men Type: BLOOD SPECIMEN [facility] Address: [address] [place] [address] Performed By: #### 3 4528-0 #### [facility] CLIA [id number] [address] Hematocrit (Bld) [Volume fraction] 33.4 % Low 36.0-46.0 [facility] Comment on above: Order Comment: Debbie pagan Type: BLOOD SPECIMEN [facility] Address: [address] [place] [address] Performed By: #### 3 4528-0 #### [facility] CLIA [id number] [address] [place] [address] Hemoglobin (Bld) [Mass/Vol] 11.0 g/dL Low 11.5-15.5 [facility] Comment on above: Order Comment: Beni ej Type: BLOOD SPECIMEN [facility] Address: [address] [place] [address] Performed By: #### 3 4528-0 #### [facility] CLIA [id number] [address] MCH (RBC) [Entitic mass] 28.0 pg Normal 26.0-34.0 [facility] Comment on above: Order Comment: Beni men Type: BLOOD SPECIMEN [facility] Address: [address] [place] [address] Performed By: #### 3 4528-0 #### [facility] CLIA [id number] [address] MCHC (RBC) [Mass/Vol] 32.9 g/dL Normal 30.5-36.0 [facility] Comment on above: Order Comment: Speci men Type: BLOOD SPECIMEN [facility] Address: [address] [place] [address] Performed By: #### 3 4528-0 #### [facility] CLIA [id number] [address] [place] MCV (RBC) [Entitic vol] 85.0 fL Normal 80.0-100.0 [facility] Comment on above: Order Comment: Speci men Type: BLOOD SPECIMEN Order[facility] Address: [address] [place] [address] Performed By: #### 3 4528-0 #### [facility] CLIA [id number] [address] OF [facility] Nucleated RBC (Bld) [#/Vol] 10*3/uL Normal <0.01 [facility] Comment on above: Order Comment: Speci men Type: BLOOD SPECIMEN [facility] Address: [address] [place] [address] Performed By: #### 3 4528-0 #### [facility] CLIA [id number] [address] [place] Platelet mean volume (Bld) [Entitic vol] 11.3 fL Normal 9.0-12.7 [facility] Comment on above: Order Comment: Speci men Type: BLOOD SPECIMEN [facility] Address: [address] [place] [address] Performed By: #### 3 4528-0 #### [facility] CLIA [id number] [address] [place] Platelets (Bld) [#/Vol] 274 10*3/uL Normal 150-400 [facility] Comment on above: Order Comment: Speci men Type: BLOOD SPECIMEN [facility] Address: [address] [place] [address] Performed By: #### 3 4528-0 #### [facility] CLIA [id number] 1 [place] [address] [place] RBC (Bld) [#/Vol] 3.93 10*6/uL Normal 3.90-5.20 [facility] Comment on above: Order Comment: Speci men Type: BLOOD SPECIMEN [facility] Address: [address] [place] [address] Performed By: #### 3 4528-0 #### [facility] CLIA [id number] [address] OF [facility] WBC (Bld) [#/Vol] 11.10 10*3/uL High 3.70-11.00 [facility] Comment on above: Order Comment: Speci men Type: BLOOD SPECIMEN [facility] Address: [address] [place] [address] Performed By: #### 3 4528-0 #### [facility] CLIA [id number] [address] CONSULT PROGon 01-22-2023 CONSULT PROG HNO ID: [id number] Author: Ratna Kendrick RPh Service: Pharmacy Author Type: Pharmacist Type: Consult Progress Note Filed: 01/22/2023 3:55 PM Note Text: PHARMACY ANTICOAGULATION CONSULT Patient Name:Giselle Walker Admission Date: 01/22/2023 Date: 01/22/2023 Time: 3:50 PM Consult for warfarin dosing per pharmacy has been discontinued. Pharmacy will sign off. discontinued the warfarin dosing per pharmacy order today at 12:34. Pharmacy order for warfarin 2.5 mg PO x 1 was also discontinued by him at this time and a new order for 2.5 mg PO x 1 ordered by him at 13:30. Please place order for warfarin dosing per pharmacy if pharmacy is to resume warfarin dosing. Thank you for allowing us to participate in the care of this patient. Ratna Kendrick RPh Normal [facility] CONSULT PROG HNO ID: [id number] Author: Ratna eKndrick RPh Service: Pharmacy Author Type: Pharmacist Type: Consult Progress Note Filed: 01/22/2023 10:48 AM Note Text: PHARMACY ANTICOAGULATION CONSULT PATIENT NAME: Laisha Walker DATE of SERVICE: 01/22/2023 TIME of SERVICE: 10:35 AM Indication for Anticoagulation: A fib Goal INR: 2.0 to 3.0 Expected Duration of Therapy: Indefinite Assessment: New Start: No Home Dose: warfarin 2.5 mg TTS, 5 mg all other days (per last outpatient anticoagulation note on 12/30/22. INR at that time was 2.6). Patient was due for a follow-up INR on 01/20/23. Other Anticoagulants: None Dosing Considerations/Precautio ns: High fall risk Drug Interactions: Prednisone 40 mg daily -- through 01/25/23 (5-day total course) Rosuvastatin ([employer] I ASSEMBLER medication) Evidence of side effects?: No Plan: Patient is currently therapeutic. Based on the dosing algorithm approved by the hospital Pharmacy and Therapeutics Committee, the following order will be initiated: Warfarin 2.5 mg PO x 1 ([employer] I ASSEMBLER dose; monitor closely with addition of steroids) Ordered daily INRs to guide ongoing dosing/monitoring while inpatient. Patient?s INR, condition, and signs/symptoms of bleeding will be monitored daily. Recommended post discharge dosing: TBD; anticipate resuming [employer] I ASSEMBLER dosing of: warfarin 2.5 mg TTS, 5 mg all other days with outpatient follow-up in 3-5 days. Thank you for allowing me to participate in the care for this patient. Current Laboratory Values Recent Labs 01/22/23 0324 12/30/22 1447 11/19/22 0910 10/25/22 1331 INR 2.0* 2.6* 2.4* 2.6* Recent Labs 01/22/23 0324 08/10/22 1035 HB 11.0* 12.8 HCT 33.4* 40.2 PLT 274 255 Estimated Creatinine Clearance: 52.8 mL/min (A) (based on SCr of 1.03 mg/dL (H)). Current Medications Current Facility-Administered Medications Medication Dose Route Frequency WARFARIN DOSING PER PHARMACY 1 Each OTHER DAILY - WARFARIN rosuvastatin 20 mg tab(s) (CRESTOR) 20 mg ORAL DAILY losartan 12.5 mg tab(s) (COZAAR) 12.5 mg ORAL DAILY potassium chloride ER 20-40 mEq tab(s) (KLOR-CON) 20-40 mEq ORAL/FEEDING TUBE PRN Or potassium chloride iv piggyback 20 mEq/100 mL 20 mEq INTRAVENOUS PRN magnesium sulfate iv piggyback in sterile water 2 g 50 mL 2 g INTRAVENOUS PRN phosphorus 500 mg tab(s) (K PHOS NEUTRAL) 500 mg ORAL/FEEDING TUBE PRN(NO DISPENSE) calcium gluconate iv piggyback 2 g in NaCl (iso-osmotic) 100 mL 2 g INTRAVENOUS PRN(NO DISPENSE) NaCl 0.9% iv flush bag 20 mL INTRAVENOUS PRN sodium chloride 0.9 % (flush) 2-10 mL (BD POSIFLUSH) 2-10 mL INTRAVENOUS DIRECTED PRN And perflutren lipid microspheres 1.1 mg/mL 1.3 mL injection (DEFINITY) 1.3 mL INTRAVENOUS DIRECTED PRN atropine 0.4 mg injection 0.4 mg INTRAVENOUS PRN(NO DISPENSE) dextrose 15 gram/32 mL 15 g (TRUEPLUS) 15 g ORAL PRN Or glucagon 1 mg injection 1 mg INTRAMUSCULAR PRN Or dextrose 10% iv bolus 12.5 g INTRAVENOUS PRN predniSONE 40 mg tab(s) (DELTASONE) 40 mg ORAL DAILY AT 12 PM insulin lispro injection (rapid acting) (ADMElog) SUBCUTANEOUS w MEALS Has patient received education: No - not a new start Signature: Ratna Kendrick [facility] Pager/Extension: N/A Normal [facility] Comprehensive metabolic 2000 panelon 01-22-2023 Albumin [Mass/Vol] 3.7 g/dL Low 3.9-4.9 [facility] Comment on above: Order Comment: Speci men Type: BLOOD SPECIMEN [facility] Address: [address] [place] [address] Performed By: #### 3 4528-0 #### [facility] CLIA [id number] 1 [place] [address] [place] ALP [Catalytic activity/Vol] 78 U/L Normal 34-123 [facility] Comment on above: Order Comment: Speci men Type: BLOOD SPECIMEN [facility] Address: [address] [place] [address] Performed By: #### 3 4528-0 #### [facility] CLIA [id number] [address] OF [facility] ALT With P-5'-P [Catalytic activity/Vol] 17 U/L Normal 7-38 [facility] Comment on above: Order Comment: Speci men Type: BLOOD SPECIMEN [facility] Address: [address] [place] [address] Performed By: #### 3 4528-0 #### [facility] CLIA [id number] [address] OF [facility] Anion gap [Moles/Vol] 11 mmol/L Normal 9-18 [facility] Comment on above: Order Comment: Speci men Type: BLOOD SPECIMEN [facility] Address: [address] [place] [address] Performed By: #### 3 4528-0 #### [facility] CLIA [id number] [address] OF [facility] AST With P-5'-P [Catalytic activity/Vol] 22 U/L Normal 13-35 [facility] Comment on above: Order Comment: Speci men Type: BLOOD SPECIMEN [facility] Address: [address] [place] [address] Performed By: #### 3 4528-0 #### [facility] CLIA [id number] [address] OF [facility] Bilirubin [Mass/Vol] 0.4 mg/dL Normal 0.2-1.3 [facility] Comment on above: Order Comment: Speci men Type: BLOOD SPECIMEN [facility] Address: [address] [place] [address] Performed By: #### 3 4528-0 #### [facility] CLIA [id number] [address] OF [facility] Calcium [Mass/Vol] 9.6 mg/dL Normal 8.5-10.2 [facility] Comment on above: Order Comment: Speci men Type: BLOOD SPECIMEN [facility] Address: [address] [place] [address] Performed By: #### 3 4528-0 #### [facility] CLIA [id number] [address] OF [facility] Chloride [Moles/Vol] 104 mmol/L Normal 97-105 [facility] Comment on above: Order Comment: Speci men Type: BLOOD SPECIMEN [facility] Address: [address] [place] [address] Performed By: #### 3 4528-0 #### [facility] CLIA [id number] [address] OF [facility] CO2 [Moles/Vol] 22 mmol/L Normal 22-30 [facility] Comment on above: Order Comment: Speci men Type: BLOOD SPECIMEN [facility] Address: [address] [place] [address] Performed By: #### 3 4528-0 #### [facility] CLIA [id number] [address] [place] [address] OF [facility] Creatinine [Mass/Vol] 1.03 mg/dL High 0.58-0.96 [facility] Comment on above: Order Comment: Speci men Type: BLOOD SPECIMEN [facility] Address: [address] [place] [address] Performed By: #### 3 4528-0 #### [facility] CLIA [id number] [address] Creatinine and Glomerular filtration rate.predicted panel (S/P/Bld) 57 mL/min/1.73m??? Low >=60 [facility] Comment on above: Order Comment: Speci men Type: BLOOD SPECIMEN [facility] Address: [address] [place] [address] Result Comment: Bhavani mated Glomerular Filtration Rate (eGFR) is calculated using the 2020 CKD-EPI creatinine equation. This equation utilizes serum creatinine, sex, and age as parameters. The creatinine assay has traceable calibration to isotope dilution-mass spectrometry. Refer to KDIGO guidelines for clinical interpretation. In patients with unstable renal function, e.g. those with acute kidney injury, the eGFR may not accurately reflect actual GFR. Performed By: #### 3 4528-0 #### [facility] CLIA [id number] [address] [place] [address] [place] Glucose [Mass/Vol] 356 mg/dL High 74-99 [facility] Comment on above: Order Comment: Debbie pagan Type: BLOOD SPECIMEN [facility] Address: [address] [place] [address] Result Comment: The [place] Diabetes Association (ADA) provides guidance for cutoff values for fasting glucose and random glucose. The ADA defines fasting as no caloric intake for at least 8 hours. Fasting plasma glucose results between 100 to 125 mg/dL indicate increased risk for diabetes (prediabetes). Fasting plasma glucose results greater than or equal to 126 mg/dL meet the criteria for diagnosis of diabetes. In the absence of unequivocal hyperglycemia, results should be confirmed by repeat testing. In a patient with classic symptoms of hyperglycemia or hyperglycemic crisis, random plasma glucose results greater than or equal to 200 mg/dL meet the criteria for diagnosis of diabetes. Reference: Standards of Medical Care in Diabetes 2016, [place] [employer] Association. Diabetes Care. 2016.39(Suppl 1). Performed By: #### 3 4528-0 #### [facility] CLIA [id number] [address] [place] [address] [place] Potassium [Moles/Vol] 4.7 mmol/L Normal 3.7-5.1 [facility] Comment on above: Order Comment: Debbie pagan Type: BLOOD SPECIMEN [facility] Address: [address] [place] [address] Performed By: #### 3 4528-0 #### [facility] CLIA [id number] [address] [place] [address] [place] Protein [Mass/Vol] 7.5 g/dL Normal 6.3-8.0 [facility] Comment on above: Order Comment: Debbie pagan Type: BLOOD SPECIMEN [facility] Address: [address] [place] [address] Performed By: #### 3 4528-0 #### [facility] CLIA [id number] [address] [place] [address] [place] Sodium [Moles/Vol] 137 mmol/L Normal 136-144 [facility] Comment on above: Order Comment: Speci men Type: BLOOD SPECIMEN [facility] Address: [place] [address] Performed By: #### 3 4528-0 #### [facility] [facility] CLIA [id number] [address] [place] Urea nitrogen [Mass/Vol] 28 mg/dL High 7-21 [facility] Comment on above: Order Comment: Speci men Type: BLOOD SPECIMEN Ordering Facility: [facility] Address: [place] [address] Performed By: #### 3 4528-0 #### [facility] CLIA [id number] [address] ECHOon 01-22-2023 Echocardiography Echocardiography Rep ort: Transthoracic Echo [facility] Date of service: 01/22/2023 8:53:37 [facility] Ordering physician: LEONEL OTERO Indication: Sustained atrial fibrillation Technologist: Vinicio Rosenthal [facility] Interpreting physician: Pascual Souza MD PATIENT: Name: MRS. LAISHA WALKER : 1950 Age: 72 years Gender: F Primary rhythm: sinus. Height: 162.60 cm BSA: 2.01 m Weight: 89.13 kg BMI: 33.7 kg/m Heart rate 94 bpm Blood pressure 162/61 mmHg Technically difficult exam due to body habitus. Color Doppler was utilized to interrogate the cardiac valves assessed and spectral Doppler was utilized to determine the flow velocities and pressure gradients reported in this exam. Myocardial strain analysis was performed in this exam to aid in the assessment of cardiac function. MEASUREMENTS: Value Indexed Normal Max aortic dimension 3.3 cm Ao < 3.8 Left atrium diameter 2.8 cm (2D) Left atrial volume 44 ml (biplane A-L) 22 ml/m Max <= 34 LV ID (diastole) 3.4 cm (2D) 1.69 cm/m LV ID (systole) 1.9 cm (2D) 0.93 cm/m IVS, leaflet tips 1.6 cm (2D) Posterior wall thickness 1.1 cm (2D) Left ventricular mass 156 g (2D) 78 g/m Global peak long strain -20.2 % LV stroke volume 15 ml (3D) LVOT stroke volume 75 ml 38 ml/m LV end diastolic volume 20 ml (3D) 10.0 ml/m EDVi<=71 LV end systolic volume 5 ml (3D) 2.5 ml/m Ejection Fraction 75 % (3D) EF > 54 FINDINGS: LEFT VENTRICLE The left ventricle is normal in size. There is moderate septal asymmetric left ventricular hypertrophy. Left ventricular systolic function is hyperdynamic. Global LV myocardial strain is normal. Grade I left ventricular diastolic dysfunction. Mitral annular lateral E/e': 12.8. Mitral annular septal E/e': 11.5. Wall Motion: All scored segments are normal. 3D data was obtained and analyzed to provide quantitative left ventricle measurements and assist with ventricular assessment. RIGHT VENTRICLE The right ventricle is normal in size. Right ventricular systolic function is normal. RV systolic tissue Doppler velocity is 19.0 cm/s. Tricuspid annular displacement is 2.2 cm. Estimated right ventricular systolic pressure is not reported due to an insufficient tricuspid regurgitation signal. Estimated right atrial pressure is 3 mmHg based on IVC assessment. LEFT ATRIUM The left atrial cavity is normal in size. RIGHT ATRIUM The right atrial cavity is normal in size. Inferior Vena Cava: The inferior vena cava appears normal measuring 0.8 cm. The vessel decreases greater than 50 percent with inspiration. MITRAL VALVE There is moderate mitral annular calcification observed posterior. There is mild mitral stenosis. There is trace mitral valve regurgitation. There is mild thickening. The peak mitral valve gradient is 13 mmHg. The mean mitral valve gradient is 5 mmHg. The pressure half time is 57 msec. The peak mitral E/A ratio is 0.67. The average mitral E/e' ratio is 12.1. The mitral flow deceleration time is 197 msec. TRICUSPID VALVE The tricuspid valve leaflets are structurally normal. There is trace tricuspid valve regurgitation. AORTIC VALVE There is no aortic valve regurgitation. Tricuspid aortic valve. There is moderate thickening. The peak gradient is 15 mmHg (peak velocity = 196.7 cm/s). The mean gradient is 8 mmHg. The LVOT mean velocity is 93.1 cm/s. The LVOT diameter is 1.9 cm. The aortic VTI is 34.4 cm. The mean velocity in the aortic valve is 132.8 cm/s. The dimensionless valve index is 0.74. AV area is 2.17 cm (1.08 cm /m ) by continuity, VTI. The LVOT stroke volume index is 38 ml/m . PULMONIC VALVE The pulmonic valve cusps are structurally normal. There is no pulmonic valve regurgitation. The peak gradient is 10 mmHg. AORTA The visualized aorta is normal in size. Measurements - Sinus: 3.0 cm. Mid ascending aorta 3.3 cm. PULMONARY ARTERIES The pulmonary arteries are unseen or not interrogated. PERICARDIUM There is no pericardial effusion. CONCLUSIONS: - Technically difficult exam due to body habitus. - Exam indication: Sustained atrial fibrillation - The left ventricle is normal in size. There is moderate septal asymmetric left ventricular hypertrophy. Left ventricular systolic function is hyperdynamic. EF = 75 5% (3D) There is a 23 mm resting gradient in the left ventricular outflow tract, which increases to 54 mm with Valsalva. Global longitudinal strain -20.2% - The right ventricle is normal in size. Right ventricular systolic function is normal. Tricuspid annular displacement is 2.2 cm. - The patient has not had a prior CC echocardiographic exam for comparison. * * * Final * * * [facility] Image : [id number] D Normal [facility] HISTORY PHYSICALon HISTORY PHYSICAL HNO ID: [id number] Author: Tomer العلي DO Service: Cardiovascular Medicine Author Type: Resident Type: HANDP Filed: 01/22/2023 4:12 AM Note Text: -------- Attestation signed by Leonel Otero MD at 01/22/2023 1:26 PM [facility] Electrophysiology (EP) EP Attending [facility] STAFF PHYSICIAN NOTE OF PERSONAL INVOLVEMENT IN CARE IMPRESSION: Patient is a 72 year old female admitted with severely symptomatic bradycardia due to intermittent advanced AV block. She has required CVICU admission for intensive care and monitoring for her potentially unstable and unpredictable cardiac condition. Fortunately thus far has not required emergent cardiac pacing such as temporary transvenous or transcutaneous pacing, but these modalities are immediately available if necessary. No reversible cause of the AV block identified. I doubt she has Lyme disease, she has no clinical features suggestive of this problem. She did find a tick on the back of her neck or shoulder recently but states she did not think it bit her. No rash, fever, arthralgias. 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 Presently having 1:1 AV conduction but at times she has high degree AV block. She has clear indication for cardiac pacemaker. I think a transvenous dual-chamber pacemaker system jane the left side of the chest would be best, as opposed to a leadless type of pacemaker. I had a detailed discussion with Ms. Walker regarding my evaluation and recommendations. After our discussion, Ms. Walker expressed her understanding and I answered all her questions to her apparent satisfaction. She agrees to proceed as outlined with pacemaker implant. The procedure will likely be early this week, hopefully can add to schedule on Wednesday 01/24. NPO except medications after midnight Tuesday night, hold warfarin. She has very high [id number] score, high risk for stroke from atrial fibrillation. However, heparin bridge therapy postoperatively within the first 48 hours has very high risk for bleeding at the implant site, with subsequent risk for need of reoperation and therefore substantially higher risk for pocket infection. INR was 2.0 today. Will give half dose warfarin today and check INR tomorrow. We can try to keep INR near 2.0 - 2.5 for the procedure, if INR < 2.0 tomorrow consider small dose of warfarin, such as half of what she normally takes. Check with Dr. Steele about this tomorrow 01/23/2023 as he will be rounding for EP service. She expressed interest in having the pacemaker followed in the [facility] under supervision of [facility] secretarial stenographer. INFORMED CONSENT The risks, benefits and anticipated outcomes of the procedure, the risks and benefits of the alternatives to the procedure and the roles and tasks of the personnel to be involved were discussed with the patient. Consent for the procedure and agreement to proceed has been obtained. I verify that I personally obtained the consent. CHADS2-Vasc Score Breakdown 7 Total Score 1 Female 1 Age 65-74 years old 1 History of hypertension 1 History of diabetes mellitus 2 History of stroke, TIA, or thromboemolism 1 History of vascular disease Active Hospital Problems Diagnosis Date Noted Third degree atrioventricular block (HCC) 01/22/2023 Bradycardia 01/22/2023 At risk for stroke 01/22/2023 Holley-Mary syncope 01/22/2023 Diabetes mellitus type 2 in obese (HCC) 01/22/2023 Paroxysmal atrial fibrillation (HCC) 01/15/2023 Anticoagulant long-term use 11/24/2022 Stage 3a chronic kidney disease (HCC) 08/10/2022 Obesity, Class II, BMI 35-39.9 05/19/2019 PLAN: 1) plan for permanent pacemaker implant this week, possibly Wednesday 01/24. NPO except medications after midnight Tuesday night (orders placed) 2) will give half dose warfarin today 01/22/2023, check INR tomorrow. Consider aiming for low therapeutic range INR in light of high risk for anticoagulation therapy interruption 3) review final reading of echocardiogram performed today Dr. Steele rounds for EP service Tuesday01/23/2023. I have reviewed the documentation obtained and documented by the Resident and I have personally performed a face to face assessment of the patient and have personally participated in the clark components of the visit which includes medical decision making.. I have discussed the case and management of the patient's care. Critical Care: I personally spent 45 minutes of critical care time involved in the care of this patient. This care required my full attention and direct personal managment of severely symptomatic bradycardia. The time spent excluded other procedures/services provided by me. STAFF PHYSICIAN: Leonel Otero MD DATE OF SERVICE: January 22, 2023 TIME OF SERVICE: 1:03 PM ------- (more content not included)... Normal [facility] LYME DISEASE BY PCRon 2022 BORRELIA SP. PCR Not detected Normal [facility] Comment on above: Order Comment: Speci men Type: BLOOD SPECIMEN Ordering Facility: [facility] Address: [address] [place] [address] Result Comment: NOT DETECTED - A negative result does not rule out the presence of PCR inhibitors in the patient specimen or assay specific nucleic acid in concentrations below the level of detection by the assay. Blood and CSF specimens have poor clinical sensitivity for detection of Borrelia burgdorferi by PCR. INTERPRETIVE INFORMATION: Borrelia Species DNA Detection by PCR This test was developed and its performance characteristics determined by [facility]. It has not been cleared or approved by the [place] Food and Drug Administration. This test was performed in a CLIA certified laboratory and is intended for clinical purposes. Performed By: [facility] [address] [place] [address] [employer] Loader: Yary Santacruz MD, PhD CLIA Number: [id number] Performed By: #### 3 4528-0 #### [facility] CLIA [id number] [address] Specimen source Nom (Unsp spec) Plasma Normal [facility] Comment on above: Order Comment: Speci men Type: BLOOD SPECIMEN [facility]ing Facility[facility] Address: [address] [place] [address] Performed By: #### 3 4528-0 #### [facility] CLIA [id number] [address] STATES OF [facility] Magnesium SerPl-mCncon 01-22 Magnesium [Mass/Vol] 1.8 mg/dL Normal 1.7-2.3 [facility] Comment on above: Order Comment: Speci men Type: BLOOD SPECIMEN [facility]ing Facility[facility] Address: [address] [place] [address] Performed By: #### 3 4528-0 #### [facility] CLIA [id number] [address] OF [facility] PT panel Coag (PPP)on 2022 INR Coag (PPP) [Relative time] 2.0 {INR} High 0.9-1.3 [facility] Comment on above: Order Comment: Speci men Type: BLOOD SPECIMEN [facility]ing [facility] Address: [address] [place] [address] Result Comment: Daja min K Antagonist (VKA) Therapeutic Range: INR 2 to 3 (Target INR of 2.5) Note: For patients treated with VKA drugs, such as warfarin, the [place] [employer] 2012 Guideline recommends a therapeutic INR range of 2 to 3 (target INR of 2.5). This recommendation includes high-risk patients with antiphospholipid syndrome with previous arterial or venous thromboembolism, current-generation mechanical or bioprosthetic aortic heart valve replacement. Note: Patients with mechanical aortic valve replacement and additional risk factors for thromboembolic events (atrial fibrillation, previous thromboembolism, LV dysfunction, hypercoagulable conditions) or an older generation mechanical AVR (i.e., ball in-Cage) or any mechanical MVR should have a INR therapeutic range of 2.5 to 3.5 (target INR of 3). Joseph GH, et al. Chest 2012, 141:7S-47S Yoli CARMICHAEL et al. [facility] 2017, 70: 252-289 Performed By: #### 3 4528-0 #### [facility] CLIA [id number] [address] [place] [address] [place] PT Coag (PPP) [Time] 19.6 s High 9.7-13.0 [facility] Comment on above: Order Comment: Debbie pagan Type: BLOOD SPECIMEN [facility] Address: [address] [place] [address] Performed By: #### 3 4528-0 #### [facility] CLIA [id number] 1 [place] [address] [place] Phosphate SerPl-mCncon 01-22 Phosphate [Mass/Vol] 2.1 mg/dL Low 2.7-4.8 [facility] Comment on above: Order Comment: Debbie pagan Type: BLOOD SPECIMEN [facility] Address: [address] [place] [address] Performed By: #### 3 4528-0 #### [facility] CLIA [id number] 1 [place] [address] [place] STAPH AUREUS PCRon S. aureus and MRSA panel COLE+probe (Nose) Normal Negative [facility] Comment on above: Order Comment: Speci men Type: BLOOD SPECIMEN [facility] Address: [address], [place] [address] Result Comment: Nega tive for Staphylococcus aureus by PCR. Negative for MRSA by PCR Performed By: #### 3 4528-0 #### [facility] CLIA [id number] [address] STATES [place] [facility] Absolute lymphocyte countOrd ered By: Bonnie Ramirez on 01-21-2023 Lymphocytes Auto (Unsp spec) [#/Vol] 0.62 10*3/uL 0.83-4.51 [facility] Basophil percentageOrdered B y: Bonnie Ramirez on 01-21-2023 Basophils/100 WBC (Bld) 0.3 % 0-1 [facility] Chloride [Moles/Vol] 100 mmol/L 98-107 [facility] Eosinophils/100 WBC (Bld) 0.0 % 0-5 [facility] Glucose [Mass/Vol] 541 mg/dL 74-106 [facility] Comment on above: Critical Result(s) C alled at: 21:57:14 01/21/2023 by: Enid Larsen to Janey. Results read back by same.Glucose result greater than or equal to 200 mg/dLsuggests DIABETES MELLITUS per A.D.A. criteria. Neutrophils (Bld) [#/Vol] 6.7 10*3/uL 2.0-7.7 [facility] Neutrophils/100 WBC (Bld) 89.4 % 47-70 [facility] Potassium [Moles/Vol] 5.4 mmol/L 3.5-5.1 [facility] Comment on above: Moderate Hemolysis, Result may be falsely increased. Sodium [Moles/Vol] 133 mmol/L 136-145 [facility] WBC (Bld) [#/Vol] 7.5 10*3/uL 4.4-11.0 [facility] Blood erythrocytes count (nu mber/volume)Ordered By: Bonnie Ramirez on 01-21-2023 RBC (Bld) [#/Vol] 4.37 10*6/uL 4.2-5.4 [facility] Blood hemoglobin measurement (mass/volume)Ordered By: Bonnie Ramirez on 01-21-2023 Hemoglobin (Bld) [Mass/Vol] 12.0 g/dL 12.0-15.0 [facility] Blood lymphocytes/100 leukoc ytesOrdered By: Bonnie Ramirez on 01-21-2023 Lymphocytes/100 WBC (Bld) 8.3 % 19-41 [facility] Blood monocytes/100 leukocyt esOrdered By: Bonnie Ramirez on 01-21-2023 Monocytes/100 WBC (Bld) 1.6 % 0-10 [facility] Blood platelet mean volumeOr dered By: Bonnie Ramirez on 01-21-2023 Platelet mean volume (Bld) [Entitic vol] 11.6 fL 6.2-12.0 [facility] Determination of erythrocyte mean corpuscular volume (MCV)Ordered By: Bonnie Ramirez on 01-21-2023 MCV (RBC) [Entitic vol] 86.3 fL 81-99 [facility] Glucose Glucometer (BldC) [M ass/Vol]Ordered By: Bonnie Ramirez on 01-21-2023 Glucose [Mass/Vol] 489 mg/dL 74-106 [facility] Comment on above: MANAGEMENT OF PATIEN T CARE PER NURSING PROTOCOL Hematocrit Auto (Bld) [Volum e fraction]Ordered By: Bonnie Ramirez on 01-21-2023 Hematocrit (Bld) [Volume fraction] 37.7 % 37-47 [facility] INR in Blood by Coagulation assayOrdered By: Bonnie Ramirez on 01-21-2023 INR Coag (Bld) [Relative time] 2.2 {INR} [facility] Laboratory - Chemistry and C hemistry - challengeOrdered By: Bonnie Ramirez on 01-21-2023 CO2 [Moles/Vol] 24.0 mmol/L 21.0-32.0 [facility] Urea nitrogen/Creatinine [Mass ratio] 19.1 mg/mg 10-20 [facility] Laboratory - CoagulationOrde red By: Bonnie Ramirez on 01-21-2023 PT Coag (PPP) [Time] 24.5 s 11.7-14.9 [facility] - Hematology and Cell countsOrdered By: Bonnie Ramirez on 01-21-2023 Erythrocyte distribution width (RBC) [Entitic vol] 43.4 fL 35.1-43.9 [facility] Erythrocyte distribution width (RBC) [Ratio] 13.7 % 11.6-14.6 [facility] Immature granulocytes/100 WBC (Bld) 0.400 % 0.0-0.9 [facility] Comment on above: IG% - Immature Granu locytes (promyelocytes, myelocytes and metamyelocytes) > 1% indicates that a LEFT SHIFT is Present. MCH (RBC) [Entitic mass] 27.5 pg 27.0-32.0 [facility] Nucleated RBC/100 WBC (Bld) [Ratio] 0 % 0-5 [facility] MCHC Auto (RBC) [Mass/Vol]Or dered By: Bonnie Ramirez on 01-21-2023 MCHC (RBC) [Mass/Vol] 31.8 g/dL 32-36 [facility] No Panel InformationOrdered By: Bonnie Ramirez on 01-21-2023 Estimated Creatinine Clearance Calc 27.15 ml/min [facility] Estimated GFR (MDRD) Amer 41 mL/min >60 [facility] Comment on above: GFR Calc Estimated GFR (MDRD) Non-Af Amer 34 mL/min >60 [facility] Comment on above: Non- GFR Calc Troponin I High Sensitivity 23 pg/mL 3.0-54.0 [facility] Comment on above: Please Note: [place] t Units and Gender Specific Reference Ranges. For more information see Policy Stat Procedure [place] High Sensitivity Troponin (TNIH) and attachments. Platelets bldOrdered By: Hanna Ramirez on 01-21-2023 Platelets (Bld) [#/Vol] 279 10*3/uL 150-450 [facility] Serum or plasma acetone sebastián urement (mass/volume)Ordered By: Bonnie Ramirez on 01-21-2023 Acetone [Mass/Vol] Negative NEG [facility] Serum or plasma calcium sebastián urement (mass/volume)Ordered By: Bonnie Ramirez on 01-21-2023 Calcium [Mass/Vol] 9.7 mg/dL 8.5-10.1 [facility] Serum or plasma creatinine m easurement (mass/volume)Ordered By: Bonnie Ramirez on 01-21-2023 Creatinine [Mass/Vol] 1.57 mg/dL 0.55-1.02 [facility] Comment on above: The validity of the calculated GFR & GFRAA in patients over 70 years has not been determined. Clinical correlation is essential. Serum or plasma urea nitroge n measurement (mass/volume)Ordered By: Bonnie Ramirez on 01-21-2023 Urea nitrogen [Mass/Vol] 30 mg/dL 7-18 [facility] Thin prep Papanicolaou smear with manual screeningOrdered By: Bonnie Ramirez on 01-21-2023 Thin prep Papanicolaou smear with manual screening 9 -15 [facility] Blood hemoglobin measurement (mass/volume)Ordered By: Kay Cavazos on 01-17-2023 Hemoglobin (Bld) [Mass/Vol] 12.1 g/dL 12.0-15.0 [facility] Hematocrit Auto (Bld) [Volum e fraction]Ordered By: Kay Cavazos on 01-17-2023 Hematocrit (Bld) [Volume fraction] 38.4 % 37-47 [facility] Absolute lymphocyte countOrd ered By: [place] on 01-15-2023 Lymphocytes Auto (Unsp spec) [#/Vol] 2.55 10*3/uL 0.83-4.51 [facility] Basophil percentageOrdered B y: [place] on 01-15-2023 Basophils/100 WBC (Bld) 0.9 % 0-1 [facility] Chloride [Moles/Vol] 113 mmol/L 98-107 [facility] Cholesterol [Mass/Vol] 155 mg/dL <200 [facility] Comment on above: <200 mg/dL Desirable 200-240 mg/dL Borderline >240 mg/dL High Risk Eosinophils/100 WBC (Bld) 1.7 % 0-5 [facility] Glucose [Mass/Vol] 124 mg/dL 74-106 [facility] Comment on above: Fasting Glucose resu lt from 100 to 125 mg/dL suggests IMPAIRED HOMEOSTASIS per A.D.A. criteria. Neutrophils (Bld) [#/Vol] 4.2 10*3/uL 2.0-7.7 [facility] Neutrophils/100 WBC (Bld) 55.2 % 47-70 [facility] Potassium [Moles/Vol] 4.0 mmol/L 3.5-5.1 [facility] Sodium [Moles/Vol] 141 mmol/L 136-145 [facility] Triglyceride [Mass/Vol] 278 mg/dL <199 [facility] Comment on above: The drugs N-Acetylcy steine and Metamizole may falsely depress this assay.Serum Triglycerides Reference Interval Normal <150 mg/dL Borderline high 150 - 199 mg/dL High 200 - 499 mg/dL Very High > or = 500 mg/dL WBC (Bld) [#/Vol] 7.6 10*3/uL 4.4-11.0 [facility] Blood erythrocytes count (nu mber/volume)Ordered By: [place] on 01-15-2023 RBC (Bld) [#/Vol] 3.77 10*6/uL 4.2-5.4 [facility] Blood hemoglobin measurement (mass/volume)Ordered By: [place] on 01-15-2023 Hemoglobin (Bld) [Mass/Vol] 10.5 g/dL 12.0-15.0 [facility] Blood lymphocytes/100 leukoc ytesOrdered By: [place] on 01-15-2023 Lymphocytes/100 WBC (Bld) 33.5 % 19-41 [facility] Blood monocytes/100 leukocyt esOrdered By: [place] on 01-15-2023 Monocytes/100 WBC (Bld) 8.4 % 0-10 [facility] Blood platelet mean volumeOr dered By: [place] on 01-15-2023 Platelet mean volume (Bld) [Entitic vol] 11.7 fL 6.2-12.0 [facility] Determination of erythrocyte mean corpuscular volume (MCV)Ordered By: [place] on 01-15-2023 MCV (RBC) [Entitic vol] 88.6 fL 81-99 [facility] Glucose Glucometer (BldC) [M ass/Vol]Ordered By: Maykel Sloan on 01-15-2023 Glucose [Mass/Vol] 169 mg/dL 74-106 [facility] Comment on above: MANAGEMENT OF PATIEN T CARE PER NURSING PROTOCOL Hematocrit Auto (Bld) [Volum e fraction]Ordered By: [place] on 01-15-2023 Hematocrit (Bld) [Volume fraction] 33.4 % 37-47 [facility] INR in Blood by Coagulation assayOrdered By: [place] on 01-15-2023 INR Coag (Bld) [Relative time] 2.1 {INR} [facility] Laboratory - Chemistry and C hemistry - challengeOrdered By: [place] on 01-15-2023 CO2 [Moles/Vol] 23.0 mmol/L 21.0-32.0 [facility] Urea nitrogen/Creatinine [Mass ratio] 23.8 mg/mg 10-20 [facility] Laboratory - CoagulationOrde red By: [place] on 01-15-2023 PT Coag (PPP) [Time] 24.0 s 11.7-14.9 [facility] - Hematology and Cell countsOrdered By: [place] on 01-15-2023 Erythrocyte distribution width (RBC) [Entitic vol] 46.4 fL 35.1-43.9 [facility] Erythrocyte distribution width (RBC) [Ratio] 14.3 % 11.6-14.6 [facility] Immature granulocytes/100 WBC (Bld) 0.300 % 0.0-0.9 [facility] Comment on above: IG% - Immature Granu locytes (promyelocytes, myelocytes and metamyelocytes) > 1% indicates that a LEFT SHIFT is Present. MCH (RBC) [Entitic mass] 27.9 pg 27.0-32.0 [facility] Nucleated RBC/100 WBC (Bld) [Ratio] 0 % 0-5 [facility] MCHC Auto (RBC) [Mass/Vol]Or dered By: [place] on 01-15-2023 MCHC (RBC) [Mass/Vol] 31.4 g/dL 32-36 [facility] No Panel InformationOrdered By: [place] on 01-15-2023 Estimated Creatinine Clearance Calc 43.94 ml/min [facility] Estimated GFR (MDRD) Amer 72 mL/min >60 [facility] Comment on above: GFR Calc Estimated GFR (MDRD) Non-Af Amer 60 mL/min >60 [facility] Comment on above: Non- GFR Calc Thyroid Stimulating Hormone (TSH) 0.80 uIU/mL 0.358-3.74 [facility] Platelets bldOrdered By: [place]id [place] on 01-15-2023 Platelets (Bld) [#/Vol] 198 10*3/uL 150-450 [facility] Serum or plasma calcium sebastián urement (mass/volume)Ordered By: [place] on 01-15-2023 Calcium [Mass/Vol] 9.0 mg/dL 8.5-10.1 [facility] Serum or plasma cholesterol in HDL measurement (mass/volume)Ordered By: [place] on 01-15-2023 Cholesterol in HDL [Mass/Vol] 47 mg/dL >40 [facility] Comment on above: The drugs N-Acetylcy steine and Metamizole may falsely depress this assay. Reference Range HDL <40 mg/dL Low HDL Cholesterol HDL >or= 60 mg/dL High HDL Cholesterol Serum or plasma cholesterol in VLDL measurement (mass/volume)Ordered By: [place] on 01-15-2023 Cholesterol in VLDL [Mass/Vol] 56 mg/dL 5-40 [facility] Serum or plasma creatinine m easurement (mass/volume)Ordered By: [place] on 01-15-2023 Creatinine [Mass/Vol] 0.97 mg/dL 0.55-1.02 [facility] Comment on above: The validity of the calculated GFR & GFRAA in patients over 70 years has not been determined. Clinical correlation is essential. Serum or plasma low density lipoprotein (LDL) cholesterol measurement (mass/volume)Ordered By: [place] on 01-15-2023 Cholesterol in LDL [Mass/Vol] 52 mg/dL 0-130 [facility] Serum or plasma urea nitroge n measurement (mass/volume)Ordered By: [place] on 01-15-2023 Urea nitrogen [Mass/Vol] 23 mg/dL 7-18 [facility] Thin prep Papanicolaou smear with manual screeningOrdered By: [place] on 01-15-2023 Thin prep Papanicolaou smear with manual screening 5 5-15 [facility] Absolute lymphocyte countOrd ered By: Kelsi Brower on 01-14-2023 Lymphocytes Auto (Unsp spec) [#/Vol] 2.43 10*3/uL 0.83-4.51 [facility] Amorphous sediment detection in urine sediment by light microscopyOrdered By: Kelsi Brower on 01-14-2023 Amorphous sediment LM Ql (Urine sed) 1+ URATE [facility] Basophil percentageOrdered B y: Kelsi Brower on 01-14-2023 Basophil percentage 0-5 SEEN /hpf 0-5 [facility] Basophils/100 WBC (Bld) 0.8 % 0-1 [facility] Chloride [Moles/Vol] 106 mmol/L 98-107 [facility] Eosinophils/100 WBC (Bld) 2.1 % 0-5 [facility] Glucose [Mass/Vol] 188 mg/dL 74-106 [facility] Comment on above: Fasting Glucose resu lt greater than or equal to 126 mg/dL suggests DIABETES MELLITUS per A.D.A. criteria. Neutrophils (Bld) [#/Vol] 5.2 10*3/uL 2.0-7.7 [facility] Neutrophils/100 WBC (Bld) 60.2 % 47-70 [facility] Potassium [Moles/Vol] 4.2 mmol/L 3.5-5.1 [facility] Sodium [Moles/Vol] 139 mmol/L 136-145 [facility] WBC (Bld) [#/Vol] 8.6 10*3/uL 4.4-11.0 [facility] Bilirubin Test strip Ql (U)O rdered By: Kelsi Brower on 01-14-2023 Bilirubin Ql (U) Negative Negative [facility] Blood erythrocytes count (nu mber/volume)Ordered By: Kelsi Brower on 01-14-2023 RBC (Bld) [#/Vol] 4.45 10*6/uL 4.2-5.4 [facility] Blood hemoglobin measurement (mass/volume)Ordered By: Kelsi Brower on 01-14-2023 Hemoglobin (Bld) [Mass/Vol] 12.4 g/dL 12.0-15.0 [facility] Blood lymphocytes/100 leukoc ytesOrdered By: Kelsi Brower on 01-14-2023 Lymphocytes/100 WBC (Bld) 28.4 % 19-41 [facility] Blood monocytes/100 leukocyt esOrdered By: Kelsi Brower on 01-14-2023 Monocytes/100 WBC (Bld) 8.3 % 0-10 [facility] Blood platelet mean volumeOr dered By: Kelsi Brower on 01-14-2023 Platelet mean volume (Bld) [Entitic vol] 11.7 fL 6.2-12.0 [facility] Determination of erythrocyte mean corpuscular volume (MCV)Ordered By: Kelsi Brower on 01-14-2023 MCV (RBC) [Entitic vol] 88.3 fL 81-99 [facility] Hematocrit Auto (Bld) [Volum e fraction]Ordered By: Kelsi Brower on 01-14-2023 Hematocrit (Bld) [Volume fraction] 39.3 % 37-47 [facility] INR in Blood by Coagulation assayOrdered By: Kelsi Brower on 01-14-2023 INR Coag (Bld) [Relative time] 2.2 {INR} [facility] Ketones Test strip Ql (U)Ord ered By: Kelsi Brower on 01-14-2023 Ketones Ql (U) Negative Negative [facility] Laboratory - Chemistry and C hemistry - challengeOrdered By: Kelsi Brower on 01-14-2023 CO2 [Moles/Vol] 27.0 mmol/L 21.0-32.0 [facility] Urea nitrogen/Creatinine [Mass ratio] 24.8 mg/mg 10-20 [facility] Laboratory - CoagulationOrde red By: Kelsi Brower on 01-14-2023 PT Coag (PPP) [Time] 24.4 s 11.7-14.9 [facility] Laboratory - Hematology and Cell countsOrdered By: Kelsi Brower on 01-14-2023 Erythrocyte distribution width (RBC) [Entitic vol] 45.2 fL 35.1-43.9 [facility] Erythrocyte distribution width (RBC) [Ratio] 14.1 % 11.6-14.6 [facility] Immature granulocytes/100 WBC (Bld) 0.200 % 0.0-0.9 [facility] Comment on above: IG% - Immature Granu locytes (promyelocytes, myelocytes and metamyelocytes) > 1% indicates that a LEFT SHIFT is Present. MCH (RBC) [Entitic mass] 27.9 pg 27.0-32.0 [facility] Nucleated RBC/100 WBC (Bld) [Ratio] 0 % 0-5 [facility] MCHC Auto (RBC) [Mass/Vol]Or dered By: Kelsi Brower on 01-14-2023 MCHC (RBC) [Mass/Vol] 31.6 g/dL 32-36 [facility] Mucus LM Ql (Urine sed)Order ed By: Kelsi Brower on 01-14-2023 Mucus Ql (Urine sed) 0 SEEN /hpf [facility] Nitrite Test strip Ql (U)Ord ered By: Kelsi Brower on 01-14-2023 Nitrite Ql (U) Negative Negative [facility] No Panel InformationOrdered By: Kelsi Brower on 01-14-2023 Troponin I High Sensitivity 13 pg/mL 3.0-54.0 [facility] Comment on above: Please Note: New [place] t Units and Gender Specific Reference Ranges. For more information see Policy Stat Procedure [place] High Sensitivity Troponin (TNIH) and attachments. Estimated Creatinine Clearance Calc 36.43 ml/min [facility] Estimated GFR (MDRD) Amer 58 mL/min >60 [facility] Comment on above: GFR Calc Estimated GFR (MDRD) Non-Af Amer 48 mL/min >60 [facility] Comment on above: Non- GFR Calc Platelets bldOrdered By: Seema Brower on 01-14-2023 Platelets (Bld) [#/Vol] 252 10*3/uL 150-450 [facility] Protein Test strip Ql (U)Ord ered By: Kelsi Brower on 01-14-2023 Protein Ql (U) Negative Negative [facility] Serum or plasma calcium sebastián urement (mass/volume)Ordered By: Kelsi Brower on 01-14-2023 Calcium [Mass/Vol] 9.9 mg/dL 8.5-10.1 [facility] Serum or plasma creatinine m easurement (mass/volume)Ordered By: Kelsi Brower on 01-14-2023 Creatinine [Mass/Vol] 1.17 mg/dL 0.55-1.02 [facility] Comment on above: The validity of the calculated GFR & GFRAA in patients over 70 years has not been determined. Clinical correlation is essential. Serum or plasma urea nitroge n measurement (mass/volume)Ordered By: Kelsi Brower on 01-14-2023 Urea nitrogen [Mass/Vol] 29 mg/dL 7-18 [facility] Squamous epithelial cells de tection in urine sediment by light microscopyOrdered By: Kelsi Brower on 01-14-2023 Epithelial cells.squamous LM Ql (Urine sed) 0-5 SEEN /hpf 5-10 [facility] Thin prep Papanicolaou smear with manual screeningOrdered By: Kelsi Brower on 01-14-2023 Thin prep Papanicolaou smear with manual screening 6 5-15 [facility] Urine blood detectionOrdered By: Kelsi Brower on 01-14-2023 RBC Ql (U) 10 /ul Negative [facility] RBC Ql (U) 0-5 SEEN /hpf 0-5 [facility] Urine clarityOrdered By: Seema Brower on 01-14-2023 Clarity (U) Sl. Cloudy Clear [facility] Urine color determinationOrd ered By: Kelsi Brower on 01-14-2023 Color (U) Yellow Yellow [facility] Urine glucose detectionOrder ed By: Kelsi Brower on 01-14-2023 Glucose Ql (U) 50 mg/dl Normal [facility] Urine leukocyte esterase det ection by dipstickOrdered By: Kelsi Brower on 01-14-2023 Leukocyte esterase Test strip Ql (U) 25 /ul Negative [facility] Urine pHOrdered By: Kelsi hutson on 01-14-2023 pH (U) 6.5 [pH] 5.0 - 8.0 [facility] Urine sediment bacteria coun t by microscopy (number/high power field)Ordered By: Kelsi Brower on 01-14-2023 Bacteria LM.HPF (Urine sed) [#/Area] 0 /[HPF] None Seen [facility] Urine specific gravity measu rementOrdered By: Kelsi Brower on 01-14-2023 Specific gravity (U) [Rel density] 1.010 1.002-1.030 [facility] Urobilinogen Auto test strip Ql (U)Ordered By: Kelsi Brower on 01-14-2023 Urobilinogen Ql (U) Normal mg/dl Normal [facility] CT BRAIN WO IVCONon 01-07-20 CT BRAIN WO IVCON * * *Final Report* * * DATE OF EXAM: Jan 06 2023 10:44AM [facility] 0504 - CT BRAIN WO IVCON / PROCEDURE REASON: Injury of head, initial encounter * * * * Physician Interpretation * * * * EXAMINATION: CT BRAIN WO IVCON CLINICAL HISTORY: Head injury; recent fall TECHNIQUE: Serial axial images without IV contrast were obtained from the vertex to the foramen magnum. MQ: CTBWO_[id number] CT Radiation dose: Integrated Dose-Length Product (DLP) for this visit = 706.22 mGy*cm CT Dose Reduction Employed: No dose reduction techniques were required COMPARISON: None. RESULT: Quality Control Tester (topogram) images: Post-operative change: None. Acute change: No evidence of an acute infarct or other acute parenchymal process. Hemorrhage: No evidence of acute intracranial hemorrhage. ECASS hemorrhagic transformation score: Not Applicable Mass Lesion / Mass Effect: There is no evidence of an intracranial mass or extraaxial fluid collection. No significant mass effect. Chronic change: None apparent. Parenchyma: There is no significant volume loss. The brain parenchyma is otherwise within normal limits for age. Ventricles: The ventricles are within normal limits of size and configuration for age. Paranasal sinuses and skull base: The visualized paranasal sinuses are grossly clear. The skull base and imaged soft tissues are unremarkable. IMPRESSION: Unremarkable CT brain. No acute intracranial injury is seen. Account Group Supervisor: PSCB Transcribe Date/Time: Jan 06 2023 10:50A Dictated by : LINK MCGEE MD This examination was interpreted and the report reviewed and electronically signed by: LINK MCGEE MD on Jan 06 2023 10:52AM EST [id number] Normal [facility] No Panel Informationon 01-05 [facility] Breast Screeningon 2022 * * *Final Report* * * DATE OF EXAM: Dec 30 2022 3:05PM [facility] [id number] - [facility] SCREENING / PROCEDURE REASON: Encounter for screening mammogram for malignant neoplasm of breast * * * * Physician Interpretation * * * * RESULT: #[id number] - ELI SCREENING BILATERAL DIGITAL SCREENING MAMMOGRAM WITH CAD: 12/30/2022 HISTORY: /SEE [facility] NOTE /Encounter For Screening Mammogram For Malignant Neoplasm Of Breast /Screening Mammogram - patient reports NO breast symptoms /priors available for comparison. RESULT: TECHNIQUE: The study was acquired using full field digital technology and interpreted from soft copy. Current study was also evaluated with a Computer Aided Detection (CAD). Comparison is made to exams dated: 11/03/2020 mammogram, 03/03/2021 ultrasound, 03/03/2021 mammogram, 01/20/2022 mammogram, 01/20/2022 ultrasound, and 12/16/2021 mammogram - [facility]. There are scattered areas of fibroglandular density. No significant masses, calcifications, or other findings are seen in either breast. DIVISION OF RADIOLOGY Provider, [facility] - 12/31/2022 * * *Final Report* * * DATE OF EXAM: Dec 30 2022 3:05PM [facility] - [facility] SCREENING / PROCEDURE REASON: Encounter for screening mammogram for malignant neoplasm of breast * * * * Physician Interpretation * * * * RESULT: #[id number] - ELI SCREENING BILATERAL DIGITAL SCREENING MAMMOGRAM WITH CAD: 12/30/2022 HISTORY: /SEE [facility] NOTE /Encounter For Screening Mammogram For Malignant Neoplasm Of Breast /Screening Mammogram - patient reports NO breast symptoms /priors available for comparison. RESULT: TECHNIQUE: The study was acquired using full field digital technology and interpreted from soft copy. Current study was also evaluated with a Computer Aided Detection (CAD). Comparison is made to exams dated: 11/03/2020 mammogram, 03/03/2021 ultrasound, 03/03/2021 mammogram, 01/20/2022 mammogram, 01/20/2022 ultrasound, and 12/16/2021 mammogram - [facility]. There are scattered areas of fibroglandular density. No significant masses, calcifications, or other findings are seen in either breast. IMPRESSION IMPRESSION: INCOMPLETE: NEEDS ADDITIONAL IMAGING EVALUATION There is no abnormality seen in the right breast to correspond with the pain in the upper inner quadrant, however, ultrasound is recommended. Katherin lay/yessenia:12/31/2022 08:34:51 Construction Sales Manager(s): Oriana Mckeon RT(R)(M), [facility] letter sent: Additional Imaging Needed Mammogram BI-RADS: 0 Incomplete: needs additional imaging evaluation If this report indicates you need additional imaging, and it has NOT yet been performed, please call , to schedule. We sincerely thank you for choosing the [facility] for your breast imaging needs. Multiple national specialty organizations have released breast cancer screening guidelines for women at average risk for developing breast cancer - guidelines that are based on both evidence and opinion, yet differ on when to start and how often to screen for breast cancer. With representation from Breast Imaging, Internal Medicine, Women's Health, Family Medicine, and Medical/Surgical Oncology, the [facility] has carefully reviewed the data and reached the following consensus: 1) All women should engage in shared decision-making with their providers to decide when to start and how often to screen; 2) All women should have the opportunity to start screening mammography at age 40; 3) For women ages 45-55, we recommend annual screening mammograms; 4) For women ages 55 and over, we support both the transition from an annual to a biennial interval if this aligns more with patient's values and preferences, or continuation with annual screening; 5) All women should discuss with their providers when to stop screening mammograms. Account Group Supervisor: Yessenia Transcribe Date/Time: Dec 30 2022 1:59P Dictated by: KATHERIN STALLWORTH MD This examination was interpreted and the report reviewed and electronically signed by: KATHERIN STALLWORTH MD on Dec 31 2022 8:34AM EST [facility] Breast ScreeningOrdered B y: [facility] Provider on 12-31-2022 [facility] ELI SCREENINGon 12-30-2022 [facility] Breast Screeningon 2022 Radiology Study [facility]narrative[facility] NAAT, UPPER RESPIRATOR Y, ROUTINEon 11-25-2022 SARS-CoV-2 (COVID-19) RNA COLE+probe Ql (Resp) Detected Abnormal See comment [facility] ROUTINE FLU A/B + RSVon 11-06 FLUAV RNA COLE+probe Ql (Unsp spec) Not detected Not Detected [facility] FLUBV RNA COLE+probe Ql (Unsp spec) Not detected Not Detected [facility] RSV A RNA COLE+probe Ql (Unsp spec) Not detected Not Detected [facility] PT panel Coag (PPP)on 2022 INR Coag (PPP) [Relative time] 2.4 {INR} High 0.9 - 1.3 [facility] PT Coag (PPP) [Time] 23.4 s High 9.7 - [address] [facility] UA DIP, URINE (POC)on 2022 BILIRUBIN UA (POCT) Negative Negative [facility] CLARITY UA (POCT) Cloudy [facility] COLOR UA (POCT) Dark yellow [facility] GLUCOSE UA (POCT) Negative Negative mg/dL [facility] Hemoglobin Ql (U) Large Abnormal Negative [facility] KETONE UA (POCT) Negative Negative mg/dL [facility] LEUKOCYTES UA (POCT) Small Abnormal Negative [facility] NITRITE UA (POCT) Positive Abnormal Negative [facility] PH UA (POCT) 6.5 4.5 - 8.0 [facility] Protein Ql (U) 100 mg/dL Abnormal Negative mg/dL [facility] SPECIFIC GRAVITY UA (POCT) 1.010 1.005 - 1.030 [facility] UROBILINOGEN UA (POCT) 0.2 E.U./dL Mily l E.U./dL [facility] Basophil percentageOrdered B y: Gallito Roberson on 10-13-2022 Basophil percentage 0 SEEN /hpf 0-5 [facility] Chloride [Moles/Vol] 106 mmol/L 98-107 [facility] Glucose [Mass/Vol] 158 mg/dL 74-106 [facility] Comment on above: Fasting Glucose resu lt greater than or equal to 126 mg/dL suggests DIABETES MELLITUS per A.D.A. criteria. Potassium [Moles/Vol] 4.1 mmol/L 3.5-5.1 [facility] Sodium [Moles/Vol] 139 mmol/L 136-145 [facility] WBC (Bld) [#/Vol] 8.9 10*3/uL 4.4-11.0 [facility] Bilirubin Test strip Ql (U)O rdered By: Gallito Roberson on 10-13-2022 Bilirubin Ql (U) Negative Negative [facility] Blood erythrocytes count (nu mber/volume)Ordered By: Gallito Roberson on 10-13-2022 RBC (Bld) [#/Vol] 4.29 10*6/uL 4.2-5.4 [facility] Blood hemoglobin measurement (mass/volume)Ordered By: Gallito Roberson on 10-13-2022 Hemoglobin (Bld) [Mass/Vol] 11.9 g/dL 12.0-15.0 [facility] Blood platelet mean volumeOr dered By: Gallito Roberson on 10-13-2022 Platelet mean volume (Bld) [Entitic vol] 11.6 fL 6.2-12.0 [facility] Determination of erythrocyte mean corpuscular volume (MCV)Ordered By: Gallito Roberson on 10-13-2022 MCV (RBC) [Entitic vol] 87.6 fL 81-99 [facility] Hematocrit Auto (Bld) [Volum e fraction]Ordered By: Gallito Roberson on 10-13-2022 Hematocrit (Bld) [Volume fraction] 37.6 % 37-47 [facility] INR in Blood by Coagulation assayOrdered By: Gallito Roberson on 10-13-2022 INR Coag (Bld) [Relative time] 2.6 {INR} [facility] Ketones Test strip Ql (U)Ord ered By: Gallito Roberson on 10-13-2022 Ketones Ql (U) Negative Negative [facility] Laboratory - Chemistry and C hemistry - challengeOrdered By: Gallito Roberson on 10-13-2022 CO2 [Moles/Vol] 26.0 mmol/L 21.0-32.0 [facility] Urea nitrogen/Creatinine [Mass ratio] 16.2 mg/mg 10-20 [facility] Laboratory - CoagulationOrde red By: Gallito Roberson on 10-13-2022 PT Coag (PPP) [Time] 28.2 s 11.7-14.9 [facility] Laboratory - Hematology and Cell countsOrdered By: Gallito Roberson on 10-13-2022 Erythrocyte distribution width (RBC) [Entitic vol] 44.8 fL 35.1-43.9 [facility] Erythrocyte distribution width (RBC) [Ratio] 13.9 % 11.6-14.6 [facility] MCH (RBC) [Entitic mass] 27.7 pg 27.0-32.0 [facility] MCHC Auto (RBC) [Mass/Vol]Or dered By: Gallito Roberson on 10-13-2022 MCHC (RBC) [Mass/Vol] 31.6 g/dL 32-36 [facility] Mucus LM Ql (Urine sed)Order ed By: Gallito Roberson on 10-13-2022 Mucus Ql (Urine sed) 0 SEEN /hpf [facility] Nitrite Test strip Ql (U)Ord ered By: Gallito Roberson on 10-13-2022 Nitrite Ql (U) Negative Negative [facility] No Panel InformationOrdered By: Gallito Roberson on 10-13-2022 Estimated Creatinine Clearance Calc 38.40 ml/min [facility] Estimated GFR (MDRD) Amer 62 mL/min >60 [facility] Comment on above: GFR Calc Estimated GFR (MDRD) Non-Af Amer 51 mL/min >60 [facility] Comment on above: Non- GFR Calc Platelets bldOrdered By: Cj Roberson on 10-13-2022 Platelets (Bld) [#/Vol] 235 10*3/uL 150-450 [facility] Protein Test strip Ql (U)Ord ered By: Gallito Roberson on 10-13-2022 Protein Ql (U) Negative Negative [facility] Serum or plasma calcium sebastián urement (mass/volume)Ordered By: Gallito Roberson on 10-13-2022 Calcium [Mass/Vol] 9.6 mg/dL 8.5-10.1 [facility] Serum or plasma creatinine m easurement (mass/volume)Ordered By: Gallito Roberson on 10-13-2022 Creatinine [Mass/Vol] 1.11 mg/dL 0.55-1.02 [facility] Comment on above: The validity of the calculated GFR & GFRAA in patients over 70 years has not been determined. Clinical correlation is essential. Serum or plasma urea nitroge n measurement (mass/volume)Ordered By: Gallito Roberson on 10-13-2022 Urea nitrogen [Mass/Vol] 18 mg/dL 7-18 [facility] Squamous epithelial cells de tection in urine sediment by light microscopyOrdered By: Gallito Roberson on 10-13-2022 Epithelial cells.squamous LM Ql (Urine sed) 0 SEEN /hpf 5-10 [facility] Thin prep Papanicolaou smear with manual screeningOrdered By: Gallito Roberson on 10-13-2022 Thin prep Papanicolaou smear with manual screening 7 5-15 [facility] Urine blood detectionOrdered By: Gallito Roberson on 10-13-2022 RBC Ql (U) Negative Negative [facility] RBC Ql (U) 0 SEEN /hpf 0-5 [facility] Urine clarityOrdered By: Cj Roberson on 10-13-2022 Clarity (U) Clear Clear [facility] Urine color determinationOrd ered By: Gallito Roberson on 10-13-2022 Color (U) Yellow Yellow [facility] Urine glucose detectionOrder ed By: Gallito Roberson on 10-13-2022 Glucose Ql (U) 50 mg/dl Normal [facility] Urine leukocyte esterase det ection by dipstickOrdered By: Gallito Roberson on 10-13-2022 Leukocyte esterase Test strip Ql (U) Negative Negative [facility] Urine pHOrdered By: Gallito krishna on 10-13-2022 pH (U) 7.0 [pH] 5.0 - 8.0 [facility] Urine sediment bacteria coun t by microscopy (number/high power field)Ordered By: Gallito Roberson on 10-13-2022 Bacteria LM.HPF (Urine sed) [#/Area] 0 /[HPF] None Seen [facility] Urine specific gravity measu rementOrdered By: Gallito Roberson on 10-13-2022 Specific gravity (U) [Rel density] 1.005 1.002-1.030 [facility] Urobilinogen Auto test strip Ql (U)Ordered By: Gallito Roberson on 10-13-2022 Urobilinogen Ql (U) Normal mg/dl Normal [facility] US THYROID/PARATHYROIDon Radiology Result ACTIONABLE Abnormal [facility] CT ABD/PEL W IVCONon 023 [facility] Absolute lymphocyte countOrd ered By: Adonis Reyez on 08-14-2022 Lymphocytes Auto (Unsp spec) [#/Vol] 2.93 10*3/uL 0.83-4.51 [facility] Basophil percentageOrdered B y: Adonis Reyez on 08-14-2022 Basophils/100 WBC (Bld) 0.7 % 0-1 [facility] Chloride [Moles/Vol] 106 mmol/L 98-107 [facility] Eosinophils/100 WBC (Bld) 1.4 % 0-5 [facility] Glucose [Mass/Vol] 134 mg/dL 74-106 [facility] Comment on above: Fasting Glucose resu lt greater than or equal to 126 mg/dL suggests DIABETES MELLITUS per A.D.A. criteria. Neutrophils (Bld) [#/Vol] 5.6 10*3/uL 2.0-7.7 [facility] Neutrophils/100 WBC (Bld) 58.6 % 47-70 [facility] Potassium [Moles/Vol] 4.1 mmol/L 3.5-5.1 [facility] Sodium [Moles/Vol] 139 mmol/L 136-145 [facility] WBC (Bld) [#/Vol] 9.5 10*3/uL 4.4-11.0 [facility] Blood erythrocytes count (nu mber/volume)Ordered By: Adonis Reyez on 08-14-2022 RBC (Bld) [#/Vol] 4.38 10*6/uL 4.2-5.4 [facility] Blood hemoglobin measurement (mass/volume)Ordered By: Adonis Reyez on 08-14-2022 Hemoglobin (Bld) [Mass/Vol] 12.6 g/dL 12.0-15.0 [facility] Blood lymphocytes/100 leukoc ytesOrdered By: Adonis Reyez on 08-14-2022 Lymphocytes/100 WBC (Bld) 30.8 % 19-41 [facility] Blood monocytes/100 leukocyt esOrdered By: Adonis Reyez on 08-14-2022 Monocytes/100 WBC (Bld) 8.2 % 0-10 [facility] Blood platelet mean volumeOr dered By: Adonis Reyez on 08-14-2022 Platelet mean volume (Bld) [Entitic vol] 11.2 fL 6.2-12.0 [facility] Determination of erythrocyte mean corpuscular volume (MCV)Ordered By: Adonis Reyez on 08-14-2022 MCV (RBC) [Entitic vol] 87.0 fL 81-99 [facility] Hematocrit Auto (Bld) [Volum e fraction]Ordered By: Adonis Reyez on 08-14-2022 Hematocrit (Bld) [Volume fraction] 38.1 % 37-47 [facility] INR in Blood by Coagulation assayOrdered By: Adonis Reyez on 08-14-2022 INR Coag (Bld) [Relative time] 2.3 {INR} [facility] Laboratory - Chemistry and C hemistry - challengeOrdered By: Adonis Reyez on 08-14-2022 CO2 [Moles/Vol] 27.0 mmol/L 21.0-32.0 [facility] Urea nitrogen/Creatinine [Mass ratio] 22.1 mg/mg 10-20 [facility] Laboratory - CoagulationOrde red By: Adonis Reyez on 08-14-2022 PT Coag (PPP) [Time] 25.7 s 11.7-14.9 [facility] - Hematology and Cell countsOrdered By: Adonis Reyez on 08-14-2022 Erythrocyte distribution width (RBC) [Entitic vol] 43.4 fL 35.1-43.9 [facility] Erythrocyte distribution width (RBC) [Ratio] 13.5 % 11.6-14.6 [facility] Immature granulocytes/100 WBC (Bld) 0.300 % 0.0-0.9 [facility] Comment on above: IG% - Immature Granu locytes (promyelocytes, myelocytes and metamyelocytes) > 1% indicates that a LEFT SHIFT is Present. MCH (RBC) [Entitic mass] 28.8 pg 27.0-32.0 [facility] Nucleated RBC/100 WBC (Bld) [Ratio] 0 % 0-5 [facility] MCHC Auto (RBC) [Mass/Vol]Or dered By: Adonis Reyez on 08-14-2022 MCHC (RBC) [Mass/Vol] 33.1 g/dL 32-36 [facility] No Panel InformationOrdered By: Adonis Reyez on 08-14-2022 Estimated Creatinine Clearance Calc 40.98 ml/min [facility] Estimated GFR (MDRD) Amer 67 mL/min >60 [facility] Comment on above: GFR Calc Estimated GFR (MDRD) Non-Af Amer 55 mL/min >60 [facility] Comment on above: Non- GFR Calc Troponin I High Sensitivity 10 pg/mL 3.0-54.0 [facility] Comment on above: Please Note: New Maria Esther t Units and Gender Specific Reference Ranges. For more information see Policy Stat Procedure [place] High Sensitivity Troponin (TNIH) and attachments. Platelets bldOrdered By: Mirta Reyez on 08-14-2022 Platelets (Bld) [#/Vol] 214 10*3/uL 150-450 [facility] Serum or plasma calcium sebastián urement (mass/volume)Ordered By: Adonis Reyez on 08-14-2022 Calcium [Mass/Vol] 10.4 mg/dL 8.5-10.1 [facility] Serum or plasma creatinine m easurement (mass/volume)Ordered By: Adonis Reyez on 08-14-2022 Creatinine [Mass/Vol] 1.04 mg/dL 0.55-1.02 [facility] Comment on above: The validity of the calculated GFR & GFRAA in patients over 70 years has not been determined. Clinical correlation is essential. Serum or plasma urea nitroge n measurement (mass/volume)Ordered By: Adonis Reyez on 08-14-2022 Urea nitrogen [Mass/Vol] 23 mg/dL 7-18 [facility] Thin prep Papanicolaou smear with manual screeningOrdered By: Adonis Reyez on 08-14-2022 Thin prep Papanicolaou smear with manual screening 6 5-15 [facility] C-REACTIVE PROTEIN (CRP)on 0 08-10-2022 CRP [Mass/Vol] 0.4 mg/dL <0.9 mg/dL [facility] CBC W Auto Differential pane l (Bld)on 08-10-2022 Basophils (Bld) [#/Vol] 0.09 10*3/uL <0.11 k/uL [facility] Basophils/100 WBC (Bld) 1.1 % C [facility] Differential cell count method Nom (Bld) Auto [facility] Eosinophils (Bld) [#/Vol] 0.15 10*3/uL <0.46 k/uL [facility] Eosinophils/100 WBC (Bld) 1.8 % [facility] Erythrocyte distribution width (RBC) [Ratio] 13.8 % 11.5 - 15.0 % [facility] Hematocrit (Bld) [Volume fraction] 40.2 % 36.0 - 46.0 % [facility] Hemoglobin (Bld) [Mass/Vol] 12.8 g/dL 11.5 - 15.5 g/dL [facility] Immature granulocytes (Bld) [#/Vol] 0.03 10*3/uL <0.10 k/uL [facility] Immature granulocytes/100 WBC (Bld) 0.4 % [facility] Lymphocytes (Bld) [#/Vol] 2.40 10*3/uL 1.00 - 4.00 k/uL [facility] Lymphocytes/100 WBC (Bld) 29.1 % [facility] MCH (RBC) [Entitic mass] 28.3 pg 26.0 - 34.[address] [facility] MCHC (RBC) [Mass/Vol] 31.8 g/dL 30.5 - 36.0 g/dL [facility] MCV (RBC) [Entitic vol] 88.7 fL 80.0 - 100.[address] [facility] Monocytes (Bld) [#/Vol] 0.65 10*3/uL <0.87 k/uL [facility] Monocytes/100 WBC (Bld) 7.9 % C [facility] Neutrophils (Bld) [#/Vol] 4.93 10*3/uL 1.45 - 7.50 k/uL [facility] Neutrophils/100 WBC (Bld) 59.7 % [facility] Nucleated RBC (Bld) [#/Vol] <0.01 k/uL [facility] Nucleated RBC/100 WBC (Bld) [Ratio] 0.0 /[address] [facility] Platelet mean volume (Bld) [Entitic vol] 11.9 fL 9.0 - 12.[address] [facility] Platelets (Bld) [#/Vol] 255 10*3/uL 150 - 400 k/uL [facility] RBC (Bld) [#/Vol] 4.53 10*6/uL 3.90 - 5.2 0 m/uL [facility] WBC (Bld) [#/Vol] 8.25 10*3/uL 3.70 - 11. 00 k/uL [facility] ESR Westergren method (Bld) [Velocity]on 08-10-2022 ESR (Bld) [Velocity] 33 mm/h High 0 - 20 mm/hr [facility] FERRITIN BLDon 08-10-2022 Ferritin [Mass/Vol] 162.0 ng/mL 14.7 - 2 05.1 ng/mL [facility] RHEUMATOID FACTOR BLon 08-10 Rheumatoid factor Qn <16 IU[facility] TSH BLDon 08-10-2022 TSH Qn 1.220 m[IU]/L 0.270 - 4.200 mIU/L [facility] VITAMIN B12 BLOODon 08-11-19 Cobalamin (Vitamin B12) [Mass/Vol] 960 pg/mL 232 - 1,245 pg/mL [facility] No Panel Informationon 07-12 IMPRESSION: No acute osseous abnormality. Account Group Supervisor: RODERICK Transcribe Date/Time: Jul 12 2022 3:12P Dictated by : VIDA GAMBINO DO This examination was interpreted and the report reviewed and electronically signed by: VIDA GAMBINO DO on Jul 12 2022 3:18PM [facility] DIVISION OF RADIOLOGY Radiology Study observation (narrative) [facility] No Panel InformationOrdered By: Ccf Provider on 07-12-2022 [facility] UA DIP, URINE (POC)on 2022 BILIRUBIN UA (POCT) Small Abnormal Negative [facility] CLARITY UA (POCT) Slightly Cloudy Cl [facility] COLOR UA (POCT) Dark yellow [facility] GLUCOSE UA (POCT) 100 mg/dL Abnormal Negative mg/dL [facility] HEMOGLOBIN/BLOOD UA (POCT) Large Abnormal Negative [facility] KETONE UA (POCT) Trace Negative mg/dL [facility] LEUKOCYTES UA (POCT) Small Abnormal Negative [facility] NITRITE UA (POCT) Positive Abnormal Negative [facility] PH UA (POCT) 5.0 4.5 - 8.0 [facility] Protein Ql (U) >=300 Abnormal Negative mg/dL [facility] SPECIFIC GRAVITY UA (POCT) 1.020 1.005 - 1.030 [facility] UROBILINOGEN UA (POCT) 1.0 E.U./dL Mily l E.U./dL [facility] XR Shoulder - right 3 Viewso n 07-12-2022 * * *Final Report* * * DATE OF EXAM: Jul 12 2022 3:10PM WOX 5253 - XR SHLDR >/=3V AP/RENNY AP/OTHR RT / PROCEDURE REASON: Pain * * * * Physician Interpretation * * * * EXAMINATION: XR WRIST 4V PA/LAT/OBL/SCAPH RT, XR SHLDR >/=3V AP/RENNY AP/OTHR RT PATIENT/TECHNOLOGIST PROVIDED HISTORY: Right radial sided wrist pain x 4 days following a fall. Posterior right shoulder pain following a fall x 4 days ago. Pt could not tolerate laying flat on the table. Y-view instead CLINICAL INFORMATION: 72 years old Female with Pain TECHNIQUE: XR WRIST 4V PA/LAT/OBL/SCAPH RT, XR SHLDR >/=3V AP/RENNY AP/OTHR RT Laterality: RIGHT Number of different views (projections): 3 views of the RIGHT shoulder and 4 views of the RIGHT wrist. COMPARISON: None RESULT: Right shoulder: No acute fracture or dislocation. Glenohumeral joint space is maintained. Mild degenerative change acromioclavicular joint. Acromiohumeral interval is maintained. Right wrist: No fracture. Joint spaces are maintained. DIVISION OF RADIOLOGY Provider, [facility] - 07/12/2022 * * *Final Report* * * DATE OF EXAM: Jul 12 2022 3:10PM WOX 5253 - XR SHLDR >/=3V AP/RENNY AP/OTHR RT / PROCEDURE REASON: Pain * * * * Physician Interpretation * * * * EXAMINATION: XR WRIST 4V PA/LAT/OBL/SCAPH RT, XR SHLDR >/=3V AP/RENNY AP/OTHR RT PATIENT/TECHNOLOGIST PROVIDED HISTORY: Right radial sided wrist pain x 4 days following a fall. Posterior right shoulder pain following a fall x 4 days ago. Pt could not tolerate laying flat on the table. [employer]-view instead CLINICAL INFORMATION: 72 years old Female with Pain TECHNIQUE: XR WRIST 4V PA/LAT/OBL/SCAPH RT, XR SHLDR >/=3V AP/RENNY AP/OTHR RT Laterality: RIGHT Number of different views (projections): 3 views of the RIGHT shoulder and 4 views of the RIGHT wrist. COMPARISON: None RESULT: Right shoulder: No acute fracture or dislocation. Glenohumeral joint space is maintained. Mild degenerative change acromioclavicular joint. Acromiohumeral interval is maintained. Right wrist: No fracture. Joint spaces are maintained. IMPRESSION IMPRESSION: No acute osseous abnormality. Account Group Supervisor: Zighra Transcribe Date/Time: Jul 12 2022 3:12P Dictated by : VIDA GAMBINO DO This examination was interpreted and the report reviewed and electronically signed by: VIDA GAMBINO DO on Jul 12 2022 3:18PM [facility] XR Wrist - right 4 Viewson 0 07-12-2022 * * *Final Report* * * DATE OF EXAM: Jul 12 2022 3:10PM WOX 5273 - XR WRIST 4V PA/LAT/OBL/SCAPH RT / PROCEDURE REASON: Pain * * * * Physician Interpretation * * * * EXAMINATION: XR WRIST 4V PA/LAT/OBL/SCAPH RT, XR SHLDR >/=3V AP/RENNY AP/OTHR RT PATIENT/TECHNOLOGIST PROVIDED HISTORY: Right radial sided wrist pain x 4 days following a fall. Posterior right shoulder pain following a fall x 4 days ago. Pt could not tolerate laying flat on the table. Y-view instead CLINICAL INFORMATION: 72 years old Female with Pain TECHNIQUE: XR WRIST 4V PA/LAT/OBL/SCAPH RT, XR SHLDR >/=3V AP/RENNY AP/OTHR RT Laterality: RIGHT Number of different views (projections): 3 views of the RIGHT shoulder and 4 views of the RIGHT wrist. COMPARISON: None RESULT: Right shoulder: No acute fracture or dislocation. Glenohumeral joint space is maintained. Mild degenerative change acromioclavicular joint. Acromiohumeral interval is maintained. Right wrist: No fracture. Joint spaces are maintained. DIVISION OF RADIOLOGY [facility] * * *Final Report* * * DATE OF EXAM: Jul 12 2022 3:10PM WOX 5273 - XR WRIST 4V PA/LAT/OBL/SCAPH RT / PROCEDURE REASON: Pain * * * * Physician Interpretation * * * * EXAMINATION: XR WRIST 4V PA/LAT/OBL/SCAPH RT, XR SHLDR >/=3V AP/RENNY AP/OTHR RT PATIENT/TECHNOLOGIST PROVIDED HISTORY: Right radial sided wrist pain x 4 days following a fall. Posterior right shoulder pain following a fall x 4 days ago. Pt could not tolerate laying flat on the table. Y-view instead CLINICAL INFORMATION: 72 years old Female with Pain TECHNIQUE: XR WRIST 4V PA/LAT/OBL/SCAPH RT, XR SHLDR >/=3V AP/RENNY AP/OTHR RT Laterality: RIGHT Number of different views (projections): 3 views of the RIGHT shoulder and 4 views of the RIGHT wrist. COMPARISON: None RESULT: Right shoulder: No acute fracture or dislocation. Glenohumeral joint space is maintained. Mild degenerative change acromioclavicular joint. Acromiohumeral interval is maintained. Right wrist: No fracture. Joint spaces are maintained. IMPRESSION IMPRESSION: No acute osseous abnormality. Account Group Supervisor: PSCB Transcribe Date/Time: Jul 12 2022 3:12P Dictated by : VIDA GAMBINO DO This examination was interpreted and the report reviewed and electronically signed by: VIDA GAMBINO DO on Jul 12 2022 3:18PM EST [facility] UA DIP, URINE (POC)on 2022 BILIRUBIN UA (POCT) Negative Negative [facility] CLARITY UA (POCT) Clear [facility] COLOR UA (POCT) Yellow [facility] GLUCOSE UA (POCT) Negative Negative mg/dL [facility] HEMOGLOBIN/BLOOD UA (POCT) Large Abnormal Negative [facility] KETONE UA (POCT) Trace Negative mg/dL [facility] LEUKOCYTES UA (POCT) Small Abnormal Negative [facility] NITRITE UA (POCT) Positive Abnormal Negative [facility] PH UA (POCT) 5.0 4.5 - 8.0 [facility] Protein Ql (U) >=300 Abnormal Negative mg/dL [facility] SPECIFIC GRAVITY UA (POCT) 1.025 1.005 - 1.030 [facility] UROBILINOGEN UA (POCT) 1.0 E.U./dL Mily l E.U./dL [facility] XR Lumbar spine 3 Viewson Addendum by Provider , [facility] on 02/11/2022 7:25 AM EST * * *Final Report* * * DATE OF EXAM: Feb 09 2022 10:53AM WOX 5228 - XR LUMBAR 3V AP/LAT/L5-S1 / PROCEDURE REASON: Left-sided low back pain without sciatica, unspecified chronicity * * * * Physician Interpretation * * * * Clinical information: Left-sided low back pain without sciatica, unspecified chronicity AP and lateral views of the lumbar spine were obtained. Comparison: 12/31/2019 No fracture is identified. Alignment is satisfactory. Vertebral body heights are maintained. Mild disc space narrowing L4-5. Minimal facet hypertrophy lower lumbar spine. No lytic or blastic lesions are seen. IMPRESSION: Mild degenerative changes with no acute abnormality. Account Group Supervisor: [facility] Transcribe Date/Time: Feb 11 2022 7:21A Dictated by : ZELDA HOWARD MD This examination was interpreted and the report reviewed and electronically signed by: ZELDA HOWARD MD on Feb 11 2022 7:25AM EST [facility] XR Lumbar spine 3 ViewsOrder ed By: [facility] Provider on 02-11-2022 [facility] XR Pelvis and Hip - left AP and Lateral frogon 02-10-2022 IMPRESSION: No radiographic evidence of acute osseous abnormality. Account Group Supervisor: [facility] Transcribe Date/Time: Feb 10 2022 4:33P Dictated by : SUNDAR CALDERON MD This examination was interpreted and the report reviewed and electronically signed by: SUNDAR CALDERON MD on Feb 10 2022 4:34PM EST DIVISION OF RADIOLOGY * * *Final Report* * * DATE OF EXAM: Feb 09 2022 10:53AM WOX 5351 - XR HIP 3V PELV+ AP/LAT LT / PROCEDURE REASON: multiple diagnoses * * * * Physician Interpretation * * * * TITLE: XR HIP 3V PELV+ AP/LAT LT CLINICAL INDICATION: Left hip pain TECHNIQUE: AP radiograph of the pelvis and AP/frog leg lateral radiographs of the left hip COMPARISON: Radiograph dated July 08, 2014 FINDINGS: No acute fracture or dislocation identified. Hip joint spaces appear symmetric and relatively preserved. Intramedullary arden with proximal screw partially visualized in the right femoral shaft. Mild subchondral sclerosis about the pubic symphysis. DIVISION OF RADIOLOGY [facility]10/[facility]22 * * *Final Report* * * DATE OF EXAM: Feb 09 2022 10:53AM WOX 5351 - XR HIP 3V PELV+ AP/LAT LT / PROCEDURE REASON: multiple diagnoses * * * * Physician Interpretation * * * * TITLE: XR HIP 3V PELV+ AP/LAT LT CLINICAL INDICATION: Left hip pain TECHNIQUE: AP radiograph of the pelvis and AP/frog leg lateral radiographs of the left hip COMPARISON: Radiograph dated July 08, 2014 FINDINGS: No acute fracture or dislocation identified. Hip joint spaces appear symmetric and relatively preserved. Intramedullary arden with proximal screw partially visualized in the right femoral shaft. Mild subchondral sclerosis about the pubic symphysis. IMPRESSION IMPRESSION: No radiographic evidence of acute osseous abnormality. Account Group Supervisor: [facility] Transcribe Date/Time: Feb 10 2022 4:33P Dictated by : SUNDAR CALDERON MD This examination was interpreted and the report reviewed and electronically signed by: SUNDAR CALDERON MD on Feb 10 2022 4:34PM EST [facility] No Panel Informationon 02-09 Radiology Study observation (narrative) [facility] ELI DIAG W SANTY RTon 022 [facility] US BREAST LTD RTon 2 [facility] No Panel Informationon 12-05 Radiology Study observation (narrative) [facility] XR Hand - bilateral PA and L ateral and Obliqueon 12-05-2020 IMPRESSION: No acute osseous abnormality is identified. 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 Account Group Supervisor: [facility] Transcribe Date/Time: Dec 05 2020 4:42P Dictated by : CHAYO HUMPHREY MD This examination was interpreted and the report reviewed and electronically signed by: CHAYO HUMPHREY MD on Dec 05 2020 4:49PM [facility] DIVISION OF RADIOLOGY * * *Final Report* * * DATE OF EXAM: Dec 05 2020 4:37PM WOX 5556 - XR HAND 3V PA/LAT/OBL JEREMY / PROCEDURE REASON: multiple diagnoses * * * * Physician Interpretation * * * * EXAMINATION: XR HAND 3V PA/LAT/OBL JEREMY CLINICAL HISTORY: Diffuse bilateral hand pain following a fall 4 days ago. Hand injury, left, initial encounter Technique: XR HAND 3V PA/LAT/OBL JEREMY -- BILATERAL hands with 3 views on 3 images Comparison: None RESULT: No acute fracture or dislocation is identified. There is mild narrowing at the 1st carpometacarpal joints bilaterally with minimal degenerative spurring at some of the interphalangeal joints of bilateral hands. 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 DIVISION OF RADIOLOGY [facility] 12/05/2020 * * *Final Report* * * DATE OF EXAM: Dec 05 2020 4:37PM WOX 5556 - XR HAND 3V PA/LAT/OBL JEREMY / PROCEDURE REASON: multiple diagnoses * * * * Physician Interpretation * * * * EXAMINATION: XR HAND 3V PA/LAT/OBL JEREMY CLINICAL HISTORY: Diffuse bilateral hand pain following a fall 4 days ago. Hand injury, left, initial encounter Technique: XR HAND 3V PA/LAT/OBL JEREMY -- BILATERAL hands with 3 views on 3 images Comparison: None RESULT: No acute fracture or dislocation is identified. There is mild narrowing at the 1st carpometacarpal joints bilaterally with minimal degenerative spurring at some of the interphalangeal joints of bilateral hands. 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 IMPRESSION IMPRESSION: No acute osseous abnormality is identified. 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 Account Group Supervisor: RODERICK Transcribe Date/Time: Dec 05 2020 4:42P Dictated by : CHAYO HUMPHREY MD This examination was interpreted and the report reviewed and electronically signed by: CHAYO HUMPHREY MD on Dec 05 2020 4:49PM [facility] XR Ribs - right Views and [facility] PAon 12-05-2020 IMPRESSION: NO ACUTE RADIOGRAPHIC ABNORMALITY OR DISPLACED RIB FRACTURE. Account Group Supervisor: PSCB Transcribe Date/Time: Dec 05 2020 4:40P Dictated by : CHAYO HUMPHREY MD This examination was interpreted and the report reviewed and electronically signed by: CAHYO HUMPHREY MD on Dec 05 2020 4:42PM EST DIVISION OF RADIOLOGY * * *Final Report* * * DATE OF EXAM: Dec 05 2020 4:37PM WOX 5244 - XR RIB/CHST 3V AP RIB/OBL/CHST R / PROCEDURE REASON: Rib injury * * * * Physician Interpretation * * * * EXAMINATION: FRONTAL CHEST X-RAY, AP AND OBLIQUE X-RAYS OF RIGHT RIBS History: Rib injury M: XC2 Comparison: 12/10/2019 RESULT: 1. Lines, Tubes, and Devices: N/A 2. Lungs and Pleura: The lungs are clear. No pleural effusion or pneumothorax. 3. Cardiomediastinal silhouette: Within normal limits. 4. Bones: No acute osseous abnormality. - - DIVISION OF RADIOLOGY Provider, [facility] - 12/05/2020 * * *Final Report* * * DATE OF EXAM: Dec 05 2020 4:37PM WOX 5244 - XR RIB/CHST 3V AP RIB/OBL/CHST R / PROCEDURE REASON: Rib injury * * * * Physician Interpretation * * * * EXAMINATION: FRONTAL CHEST X-RAY, AP AND OBLIQUE X-RAYS OF RIGHT RIBS History: Rib injury M: XC2 Comparison: 12/10/2019 RESULT: 1. Lines, Tubes, and Devices: N/A 2. Lungs and Pleura: The lungs are clear. No pleural effusion or pneumothorax. 3. Cardiomediastinal silhouette: Within normal limits. 4. Bones: No acute osseous abnormality. - - IMPRESSION IMPRESSION: NO ACUTE RADIOGRAPHIC ABNORMALITY OR DISPLACED RIB FRACTURE. Account Group Supervisor: RODERICK Transcribe Date/Time: Dec 05 2020 4:40P Dictated by : CHAYO HUMPHREY MD This examination was interpreted and the report reviewed and electronically signed by: CHAYO HUMPHREY MD on Dec 05 2020 4:42PM EST [facility] XR Ribs - right Views and est PAOrdered By: Cc Provider on 12-05-2020 [facility] XR Lumbar spine 3 Viewson IMPRESSION: Minimal degenerative changes of the lumbar spine. Account Group Supervisor: PSCB Transcribe Date/Time: Dec 31 2019 8:29A Dictated by : GISELLA ALDRIDGE DO This examination was interpreted and the report reviewed and electronically signed by: GISELLA ALDRIDGE DO on Dec 31 2019 8:31AM [facility] DIVISION OF RADIOLOGY * * *Final Report* * * DATE OF EXAM: Dec 31 2019 8:25AM WOX 5228 - XR LUMBAR 3V AP/LAT/L5-S1 / PROCEDURE REASON: multiple diagnoses * * * * Physician Interpretation * * * * EXAMINATION: XR LUMBAR 3V AP/LAT/L5-S1 CLINICAL HISTORY: 69 years old Female with Chronic bilateral low back pain without sciatica Chronic bilateral low back pain without sciatica posterior right of the spine mid lateral back pain for a while. TECHNIQUE: XR LUMBAR 3V AP/LAT/L5-S1 with 3 views on 3 images MQ: XLS_1 COMPARISON: None available RESULT: Counting Reference: Lumbosacral junction on lateral view. For the purposes of this report, L5S1 is considered the last lumbar type disc space and L4-5 is considered the level of the iliac crest. Post-op assessment: N/A Alignment: Normal. No scoliosis or kyphosis. Vertebral bodies: No compression fracture deformity. Minimal anterior endplate osteophytosis. Spine articulations: Disc spaces are maintained. Mild facet arthrosis of L5-S1. Soft tissues: Vascular calcifications. DIVISION OF RADIOLOGY Provider, Jessica Ahmet wagner [facility] - 12/31/2019 * * *Final Report* * * DATE OF EXAM: Dec 31 2019 8:25AM WOX 5228 - XR LUMBAR 3V AP/LAT/L5-S1 / PROCEDURE REASON: multiple diagnoses * * * * Physician Interpretation * * * * EXAMINATION: XR LUMBAR 3V AP/LAT/L5-S1 CLINICAL HISTORY: 69 years old Female with Chronic bilateral low back pain without sciatica Chronic bilateral low back pain without sciatica posterior right of the spine mid lateral back pain for a while. TECHNIQUE: XR LUMBAR 3V AP/LAT/L5-S1 with 3 views on 3 images MQ: XLS_1 COMPARISON: None available RESULT: Counting Reference: Lumbosacral junction on lateral view. For the purposes of this report, L5S1 is considered the last lumbar type disc space and L4-5 is considered the level of the iliac crest. Post-op assessment: N/A Alignment: Normal. No scoliosis or kyphosis. Vertebral bodies: No compression fracture deformity. Minimal anterior endplate osteophytosis. Spine articulations: Disc spaces are maintained. Mild facet arthrosis of L5-S1. Soft tissues: Vascular calcifications. IMPRESSION IMPRESSION: Minimal degenerative changes of the lumbar spine. Account Group Supervisor: RODERICK Transcribe Date/Time: Dec 31 2019 8:29A Dictated by : GISELLA ALDRIDGE DO This examination was interpreted and the report reviewed and electronically signed by: GISELLA ALDRIDGE DO on Dec 31 2019 8:31AM EST [facility] Radiology Study observation (narrative) [facility] XR Lumbar spine 3 ViewsOrder ed By: Ccf Provider on 12-31-2019 [facility] XR Chest PA and Lateralon IMPRESSION: No developing abnormality or acute process Account Group Supervisor: RODEIRCK Transcribe Date/Time: Dec 10 2019 1:06P Dictated by : DOMENIC BARLOW MD This examination was interpreted and the report reviewed and electronically signed by: DOMENIC BARLOW MD on Dec 10 2019 1:07PM [facility] DIVISION OF RADIOLOGY * * *Final Report* * * DATE OF EXAM: Dec 10 2019 1:02PM WOX 5291 - XR CHEST 2V FRONTAL/LAT / PROCEDURE REASON: Malignant neoplasm of right kidney (HCC) * * * * Physician Interpretation * * * * EXAMINATION: CHEST RADIOGRAPH (2 VIEW FRONTAL & LATERAL) CLINICAL HISTORY: Malignant neoplasm of right kidney (HCC) MQ: XC2_6 EXAM DATE/TIME: 12/10/2019 1:02 PM COMPARISON: 05/21/2019 RESULT: Lines, tubes, and devices: None. Lungs and pleura: No consolidation. No developing nodule or mass. No pleural effusion. No pneumothorax. Cardiomediastinal silhouette: Normal cardiomediastinal silhouette. Bones and soft tissues: Unremarkable. DIVISION OF RADIOLOGY Provider, virgilio Leo [facility] - 12/10/2019 * * *Final Report* * * DATE OF EXAM: Dec 10 2019 1:02PM WOX 5291 - XR CHEST 2V FRONTAL/LAT / PROCEDURE REASON: Malignant neoplasm of right kidney (HCC) * * * * Physician Interpretation * * * * EXAMINATION: CHEST RADIOGRAPH (2 VIEW FRONTAL & LATERAL) CLINICAL HISTORY: Malignant neoplasm of right kidney (HCC) MQ: XC2_6 EXAM DATE/TIME: 12/10/2019 1:02 PM COMPARISON: 05/21/2019 RESULT: Lines, tubes, and devices: None. Lungs and pleura: No consolidation. No developing nodule or mass. No pleural effusion. No pneumothorax. Cardiomediastinal silhouette: Normal cardiomediastinal silhouette. Bones and soft tissues: Unremarkable. IMPRESSION IMPRESSION: No developing abnormality or acute process Account Group Supervisor: P[employer] Transcribe Date/Time: Dec 10 2019 1:06P Dictated by : DOMENIC BARLOW MD This examination was interpreted and the report reviewed and electronically signed by: DOMENIC BARLOW MD on Dec 10 2019 1:07PM EST [facility] Radiology Study observation (narrative) [facility] Chest PA and LateralOrder ed By: Ccf Provider on 12-10-2019 [facility] US DOPPLER CAROTIDon 020 Patient Info Name: LAISHA WALKER Age: 69 years : 1950 Gender: Female Exam Date: 09/12/2019 10:51 AM Site Location: [facility] Patient Status: Outpatient Staff Ordering Physician: VIC CHRISTIE Lining Closer: Lori Rasheed, MICK, RVT Referring Physician: VIC CHRISTIE ; Attending Physician: VIC CHRISTIE Indications I65.23 - Occlusion and stenosis of bilateral carotid arteries Procedure Description 00136 Duplex examination using B-mode, color and spectral Doppler of extracranial arteries; complete bilateral study. NASCET criteria is used when performing imaging correlation with carotid duplex interpretation. Conclusions * Mild (20-49%) stenosis in the right internal carotid artery. * Hemodynamically significant stenosis in the right external carotid artery. * No hemodynamically significant stenosis in the right common carotid and subclavian arteries. * Right vertebral artery is patent with antegrade flow. * The left internal carotid artery is occluded. * Hemodynamically significant stenosis in the left external carotid artery. * No hemodynamically significant stenosis in the left common carotid and subclavian arteries. * Left vertebral artery is patent with antegrade flow. Measurements Name Value Right PSV Right Prox CCA PSV 116 cm/s Right Mid CCA PSV 110 cm/s Right Distal CCA PSV 99 cm/s Right Prox ICA PSV 100 cm/s Right Mid ICA PSV 133 cm/s Right Distal ICA PSV 134 cm/s Right ECA PSV 212 cm/s Right Vert PSV 60 cm/s BC PSV 134 cm/s Right Prox SCA PSV 151 cm/s Rt ICA/CCA Ratio 1.0 Measurements Name Value Right EDV Right Prox CCA EDV 31 cm/s Right Mid CCA EDV 35 cm/s Right Distal CCA EDV 28 cm/s Right Prox ICA EDV 31 cm/s Right Mid ICA EDV 44 cm/s Right Distal ICA EDV 49 cm/s Right ECA EDV 24 cm/s Right Vert EDV 17 cm/s BC EDV 20 cm/s Right Prox SCA EDV 0 cm/s Measurements Name Value Left PSV Left Prox CCA PSV 109 cm/s Left Mid CCA PSV 96 cm/s Left Distal CCA PSV 75 cm/s Left Prox ICA PSV 0 cm/s Left Mid ICA PSV 0 cm/s Left Distal ICA PSV 0 cm/s Left ECA PSV 270 cm/s Left Vert PSV 66 cm/s Left Prox SCA PSV 141 cm/s Lt ICA/CCA Ratio 0.0 Measurements Name Value Left EDV Left Prox CCA EDV 16 cm/s Left Mid CCA EDV 16 cm/s Left Distal CCA EDV 18 cm/s Left Prox ICA EDV 0 cm/s Left Mid ICA EDV 0 cm/s Left Distal ICA EDV 0 cm/s Left ECA EDV 26 cm/s Left Vert EDV 17 cm/s Left Prox SCA EDV 0 cm/s Right Findings * No plaque noted in the right common carotid artery. * Heterogeneous plaque noted in the right internal carotid artery. * Heterogeneous plaque noted in the right external carotid artery. * No significant atherosclerotic plaque noted with normal Doppler flow velocities in all right carotid segments. Left Findings * No plaque noted in the left common carotid artery. * Heterogeneous plaque noted in the left internal carotid artery. * Heterogeneous plaque noted in the left external carotid artery. * No significant atherosclerotic plaque noted with normal Doppler flow velocities in all left carotid segments. Prior Study Date: 02/06/2019 Risk Factors Patient has a history of diabetes, CAD, hyperlipidemia and hypertension. . Report Signatures Finalized by Vic Christie MD, RPVI on 09/12/2019 03:36 PM [facility] Interface, Rad In Heartlab Xper Echopacs - 09/12/2019 3:37 PM EDT Patient Info Name: LAISHA WALKER Age: 69 years : 1950 Gender: Female Exam Date: 09/12/2019 10:51 AM Site Location: [facility] Patient Status: Outpatient Staff Ordering Physician: VIC CHRISTIE Lining Closer: Motil, Lori, RDCS, RVT Referring Physician: VIC CHRISTIE ; Attending Physician: VIC CHRISTIE Indications I65.23 - Occlusion and stenosis of bilateral carotid arteries Procedure Description 17903 Duplex examination using B-mode, color and spectral Doppler of extracranial arteries; complete bilateral study. NASCET criteria is used when performing imaging correlation with carotid duplex interpretation. Conclusions * Mild (20-49%) stenosis in the right internal carotid artery. * Hemodynamically significant stenosis in the right external carotid artery. * No hemodynamically significant stenosis in the right common carotid and subclavian arteries. * Right vertebral artery is patent with antegrade flow. * The left internal carotid artery is occluded. * Hemodynamically significant stenosis in the left external carotid artery. * No hemodynamically significant stenosis in the left common carotid and subclavian arteries. * Left vertebral artery is patent with antegrade flow. Measurements Name Value Right PSV Right Prox CCA PSV 116 cm/s Right Mid CCA PSV 110 cm/s Right Distal CCA PSV 99 cm/s Right Prox ICA PSV 100 cm/s Right Mid ICA PSV 133 cm/s Right Distal ICA PSV 134 cm/s Right ECA PSV 212 cm/s Right Vert PSV 60 cm/s BC PSV 134 cm/s Right Prox SCA PSV 151 cm/s Rt ICA/CCA Ratio 1.0 Measurements Name Value Right EDV Right Prox CCA EDV 31 cm/s Right Mid CCA EDV 35 cm/s Right Distal CCA EDV 28 cm/s Right Prox ICA EDV 31 cm/s Right Mid ICA EDV 44 cm/s Right Distal ICA EDV 49 cm/s Right ECA EDV 24 cm/s Right Vert EDV 17 cm/s BC EDV 20 cm/s Right Prox SCA EDV 0 cm/s Measurements Name Value Left PSV Left Prox CCA PSV 109 cm/s Left Mid CCA PSV 96 cm/s Left Distal CCA PSV 75 cm/s Left Prox ICA PSV 0 cm/s Left Mid ICA PSV 0 cm/s Left Distal ICA PSV 0 cm/s Left ECA PSV 270 cm/s Left Vert PSV 66 cm/s Left Prox SCA PSV 141 cm/s Lt ICA/CCA Ratio 0.0 Measurements Name Value Left EDV Left Prox CCA EDV 16 cm/s Left Mid CCA EDV 16 cm/s Left Distal CCA EDV 18 cm/s Left Prox ICA EDV 0 cm/s Left Mid ICA EDV 0 cm/s Left Distal ICA EDV 0 cm/s Left ECA EDV 26 cm/s Left Vert EDV 17 cm/s Left Prox SCA EDV 0 cm/s Right Findings * No plaque noted in the right common carotid artery. * Heterogeneous plaque noted in the right internal carotid artery. * Heterogeneous plaque noted in the right external carotid artery. * No significant atherosclerotic plaque noted with normal Doppler flow velocities in all right carotid segments. Left Findings * No plaque noted in the left common carotid artery. * Heterogeneous plaque noted in the left internal carotid artery. * Heterogeneous plaque noted in the left external carotid artery. * No significant atherosclerotic plaque noted with normal Doppler flow velocities in all left carotid segments. Prior Study Date: 02/06/2019 Risk Factors Patient has a history of diabetes, CAD, hyperlipidemia and hypertension. . Report Signatures Finalized by Vic Christie MD, RPVI on 09/12/2019 03:36 PM [facility] Basic Panelon 05-23-2019 Creatinine [Mass/Vol] 0.91 mg/dL Normal 0.51-0.[address] [facility] Comment on above: Result Comment: Use of this assay is not recommended for patients undergoing treatment with phenindione, due to the potential for falsely depressed results. Performed By: #### H CTI #### [facility] [address] [place], [place] [address] Anion gap [Moles/Vol] 11 mmol/L Normal 8-[address] [facility] Comment on above: Performed By: #### H CTI #### [facility] [address] [place], [place] [address] CO2 [Moles/Vol] 24 mmol/L Normal 21-32 [facility] Comment on above: Performed By: #### H CTI #### [facility] [address] [place], [place] [address] Glucose [Mass/Vol] 205 mg/dL High 70-99 [facility] Comment on above: Performed By: #### H CTI #### [facility] [address] [place], [place] [address] Urea nitrogen [Mass/Vol] 16 mg/dL Normal 7-18 [facility] Comment on above: Performed By: #### H CTI #### [facility] [address] [place], [place] [address] Calcium [Mass/Vol] 9.0 mg/dL Normal 8.5-10.1 [facility] Comment on above: Performed By: #### H CTI #### [facility] [address] [place], [place] [address] Chloride [Moles/Vol] 103 mmol/L Normal 98-107 [facility] Comment on above: Performed By: #### H CTI #### [facility] [address] [place], [place] [address] Potassium [Moles/Vol] 4.0 mmol/L Normal 3.5-5.[address] [facility] Comment on above: Performed By: #### H CTI #### [place] [address] Sodium [Moles/Vol] 134 mmol/L Low 136-145 [facility] Comment on above: Performed By: #### H CTI #### [place] [address] Glucose Meteron 05-23-2019 Glucose [Mass/Vol] 339 mg/dL High 70-99 [facility] Comment on above: Result Comment: ALONDRA NICKERSON Performed By: #### G LMET #### [place] [address] Hemogram/Diffon 05-23-2019 Abs Immature Grans 0.07 thou/cmm High 0.00-0.[address] [facility] Comment on above: Performed By: #### H CTI #### [place] [address] Abs Neut (ANC) 7.24 thou/cmm High 1.56-6.13 [facility] Comment on above: Performed By: #### H CTI #### [place] [address] Abs. Baso 0.06 thou/cmm Normal 0.01-0.08 [facility] Comment on above: Performed By: #### H CTI #### [place] [address] Abs. [place] 1.19 thou/cmm High 0.27-0.70 [facility] Comment on above: Performed By: #### H CTI #### [place] [address] Basophils/100 WBC (Bld) 0.5 % Normal [facility] Comment on above: Performed By: #### H CTI #### [place] [address] Eosinophils (Bld) [#/Vol] 0.28 thou/cmm Normal 0.00-0.31 [facility] Comment on above: Performed By: #### H CTI #### [facility] [address] [place], [place] [address] Eosinophils/100 WBC (Bld) 2.5 % Normal [facility] Comment on above: Performed By: #### H CTI #### [facility] [address] [place] [address] Erythrocyte distribution width (RBC) [Ratio] 13.5 % Normal 11.7-14.4 [facility] Comment on above: Performed By: #### H CTI #### [facility] [address] [place] [address] Hematocrit (Bld) [Volume fraction] 31.2 % Low 34.1-44.9 [facility] Comment on above: Performed By: #### H CTI #### [place] [address] Hemoglobin (Bld) [Mass/Vol] 9.7 g/dL Low 11.2-15.7 [facility] Comment on above: Performed By: #### H CTI #### [facility] [address] [place] [address] Immature Grans 0.60 % Normal [facility] Comment on above: Performed By: #### H CTI #### [facility] [address] [place] [address] Lymphocytes (Bld) [#/Vol] 2.51 thou/cmm Normal 1.18-3.74 [facility] Comment on above: Performed By: #### H CTI #### [facility] [address] [place], [place] [address] Lymphocytes/100 WBC (Bld) 22.1 % Normal [facility] Comment on above: Performed By: #### H CTI #### [facility] [address] [place] [address] MCH (RBC) [Entitic mass] 27.4 pg Normal 25.6-32.2 [facility] Comment on above: Performed By: #### H CTI #### [facility] [address] [place] [address] MCHC (RBC) [Mass/Vol] 31.1 % Low 31.6-34.[address] [facility] Comment on above: Performed By: #### H CTI #### [facility] [address] [place] [address] MCV (RBC) [Entitic vol] 88.1 fL Normal 79.4-94.8 [facility] Comment on above: Performed By: #### H CTI #### [facility] [address] [place] [address] Monocytes/100 WBC (Bld) 10.5 % Normal [facility] Comment on above: Performed By: #### H CTI #### [facility] [address] [place] [address] Platelet mean volume (Bld) [Entitic vol] 12.1 fL Normal 9.4-12.3 [facility] Comment on above: Performed By: #### H CTI #### [facility] [address] [place] [address] Platelets (Bld) [#/Vol] 241 thou/cmm Normal 182-369 [facility] Comment on above: Performed By: #### H CTI #### [facility] [address] [place] [address] RBC (Bld) [#/Vol] 3.54 mil/cmm Low 3.93-5.22 [facility] Comment on above: Performed By: #### H CTI #### [facility] [address] [place] [address] RDW SD 43.6 fl Normal 36.4-46.3 [facility] Comment on above: Performed By: #### H CTI #### [facility] [address] [place] [address] Seg Neutrophil 63.8 % Normal [facility] Comment on above: Performed By: #### H CTI #### [facility] [address] [place] [address] WBC (Bld) [#/Vol] 11.35 thou/cmm High 3.98-10.[address] [facility] Comment on above: Performed By: #### H CTI #### [facility] [address] [place], [place] [address] MDRD GFRon 05-23-2019 GFR/1.73 sq M predicted among non-blacks MDRD (S/P/Bld) [Vol rate/Area] mL/min/{1.73_m2} Normal >60mL/min/1. 73m2 [facility] Comment on above: Result Comment: If t he patient is , multiply the result by 1.210. Performed By: #### H GBI #### [address] [address] Basic Panelon 05-22-2019 Creatinine [Mass/Vol] 0.91 mg/dL Normal 0.51-0.[address] [facility] Comment on above: Result Comment: Use of this assay is not recommended for patients undergoing treatment with phenindione, due to the potential for falsely depressed results. Performed By: #### H CTI #### [place] [address] Anion gap [Moles/Vol] 9 mmol/L Normal 8-[address] [facility] Comment on above: Performed By: #### H CTI #### [place] [address] Chloride [Moles/Vol] 104 mmol/L Normal 98-107 [facility] Comment on above: Performed By: #### H CTI #### [address] [address] Potassium [Moles/Vol] 3.8 mmol/L Normal 3.5-5.[address] [facility] Comment on above: Performed By: #### H CTI #### [address] [address] Sodium [Moles/Vol] 134 mmol/L Low 136-145 [facility] Comment on above: Performed By: #### H CTI #### [address] [address] Urea nitrogen [Mass/Vol] 15 mg/dL Normal 7-18 [facility] Comment on above: Performed By: #### H CTI #### [facility] [address] [place] [address] Calcium [Mass/Vol] 9.1 mg/dL Normal 8.5-10.1 [facility] Comment on above: Performed By: #### H CTI #### [facility] [address] [place] [address] CO2 [Moles/Vol] 25 mmol/L Normal 21-32 [facility] Comment on above: Performed By: #### H CTI #### [facility] [address] [place] [address] Glucose [Mass/Vol] 177 mg/dL High 70-99 [facility] Comment on above: Performed By: #### H CTI #### [facility] [address] [place] [address] Hemogram/Diffon 05-22-2019 Abs Immature Grans 0.08 thou/cmm High 0.00-0.[address] [facility] Comment on above: Performed By: #### H CTI #### [facility] [address] [place] [address] Abs Neut (ANC) 7.89 thou/cmm High 1.56-6.13 [facility] Comment on above: Performed By: #### H CTI #### [facility] [address] [place] [address] Abs. Baso 0.08 thou/cmm Normal 0.01-0.08 [facility] Comment on above: Performed By: #### H CTI #### [facility] [address] [place] [address] Abs. [place] 1.07 thou/cmm High 0.27-0.70 [facility] Comment on above: Performed By: #### H CTI #### [facility] [address] [place] [address] Basophils/100 WBC (Bld) 0.7 % Normal [facility] Comment on above: Performed By: #### H CTI #### [place] [address] Eosinophils (Bld) [#/Vol] 0.25 thou/cmm Normal 0.00-0.31 [facility] Comment on above: Performed By: #### H CTI #### [facility] [address] [place], [place] [address] Eosinophils/100 WBC (Bld) 2.2 % Normal [facility] Comment on above: Performed By: #### H CTI #### [facility] [address] [place] [address] Erythrocyte distribution width (RBC) [Ratio] 13.5 % Normal 11.7-14.4 [facility] Comment on above: Performed By: #### H CTI #### [facility] [address] [place] [address] Hematocrit (Bld) [Volume fraction] 31.6 % Low 34.1-44.9 [facility] Comment on above: Performed By: #### H CTI #### [place] [address] Hemoglobin (Bld) [Mass/Vol] 9.9 g/dL Low 11.2-15.7 [facility] Comment on above: Performed By: #### H CTI #### [place] [address] Immature Grans 0.70 % Normal [facility] Comment on above: Performed By: #### H CTI #### [place] [address] Lymphocytes (Bld) [#/Vol] 1.93 thou/cmm Normal 1.18-3.74 [facility] Comment on above: Performed By: #### H CTI #### [facility] [address] [place] [address] Lymphocytes/100 WBC (Bld) 17.1 % Normal [facility] Comment on above: Performed By: #### H CTI #### [facility] [address] [place] [address] MCH (RBC) [Entitic mass] 27.6 pg Normal 25.6-32.2 [facility] Comment on above: Performed By: #### H CTI #### [facility] [address] [place], [place] [address] MCHC (RBC) [Mass/Vol] 31.3 % Low 31.6-34.[address] [facility] Comment on above: Performed By: #### H CTI #### [facility] [address] [place], [place] [address] MCV (RBC) [Entitic vol] 88.0 fL Normal 79.4-94.8 [facility] Comment on above: Performed By: #### H CTI #### [facility] [address] [place] [address] Monocytes/100 WBC (Bld) 9.5 % Normal [facility] Comment on above: Performed By: #### H CTI #### [facility] [address] [place] [address] Platelet mean volume (Bld) [Entitic vol] 12.6 fL High 9.4-12.3 [facility] Comment on above: Performed By: #### H CTI #### [facility] [address] [place] [address] Platelets (Bld) [#/Vol] 213 thou/cmm Normal 182-369 [facility] Comment on above: Performed By: #### H CTI #### [facility] [address] [place] [address] RBC (Bld) [#/Vol] 3.59 mil/cmm Low 3.93-5.22 [facility] Comment on above: Performed By: #### H CTI #### [facility] [address] [place] [address] RDW SD 43.3 fl Normal 36.4-46.3 [facility] Comment on above: Performed By: #### H CTI #### [facility] [address] [place] [address] Seg Neutrophil 69.8 % Normal [facility] Comment on above: Performed By: #### H CTI #### [facility] [address] [place], [place] [address] WBC (Bld) [#/Vol] 11.31 thou/cmm High 3.98-10.[address] [facility] Comment on above: Performed By: #### H CTI #### [facility] [address] [place] [id number] Protimeon 05-22-2019 INR Coag (PPP) [Relative time] 1.01 {INR} Normal 0.90-1.30 [facility] Comment on above: Result Comment: Daja min K Antagonist (VKA) Therapeutic Range: INR 2 to 3 (Target INR of 2.5) Note: For patients treated with VKA drugs, such as warfarin, the [place] [employer] 2012 Guideline recommends a therapeutic INR range of 2 to 3 (target INR of 2.5). This recommendation includes high-risk patients with antiphospholipid syndrome with previous arterial or venous thromboembolism, current-generation mechanical or bioprosthetic aortic heart valve replacement. Note: Patients with mechanical aortic valve replacement and additional risk factors for thromboembolic events (atrial fibrillation, previous thromboembolism, LV dysfunction, hypercoagulable conditions) or an older generation mechanical AVR (i.e., ball in-Cage) or any mechanical MVR should have a INR therapeutic range of 2.5 to 3.5 target INR of 3). Joseph GH, et al. Chest 2012; 141:7S-47S Yoli RA, et al. [facility] 2017; 70: 252-289 Performed By: #### H CTI #### [place] [id number] PT Coag (PPP) [Time] 10.9 s Normal 9.7-13.0 [facility] Comment on above: Performed By: #### H CTI #### [facility] [address] [place] [id number] Basic Panelon 05-21-2019 Creatinine [Mass/Vol] 1.05 mg/dL High 0.51-0.[address] [facility] Comment on above: Result Comment: Use of this assay is not recommended for patients undergoing treatment with phenindione, due to the potential for falsely depressed results. Performed By: #### H CTI #### [facility] [address] [place] [id number] Urea nitrogen [Mass/Vol] 20 mg/dL High 7-18 [facility] Comment on above: Performed By: #### H CTI #### [facility] [address] [place], [place] [address] Anion gap [Moles/Vol] 11 mmol/L Normal 8-[address] [facility] Comment on above: Performed By: #### H CTI #### [facility] [address] [place], [place] [address] Calcium [Mass/Vol] 8.8 mg/dL Normal 8.5-10.1 [facility] Comment on above: Performed By: #### H CTI #### [facility] [address] [place], [place] [address] CO2 [Moles/Vol] 20 mmol/L Low 21-32 [facility] Comment on above: Performed By: #### H CTI #### [place] [address] Glucose [Mass/Vol] 174 mg/dL High 70-99 [facility] Comment on above: Performed By: #### H CTI #### [facility] [address] [place] [address] Chloride [Moles/Vol] 107 mmol/L Normal 98-107 [facility] Comment on above: Performed By: #### H CTI #### [place] [address] Potassium [Moles/Vol] 3.8 mmol/L Normal 3.5-5.[address] [facility] Comment on above: Performed By: #### H CTI #### [address] [address] Sodium [Moles/Vol] 134 mmol/L Low 136-145 [facility] Comment on above: Performed By: #### H CTI #### [place] [address] Hemogram/Diffon 05-21-2019 Abs Immature Grans 0.08 thou/cmm High 0.00-0.[address] [facility] Comment on above: Performed By: #### H GBI #### [address] [address] Abs Neut (ANC) 8.66 thou/cmm High 1.56-6.13 [facility] Comment on above: Performed By: #### H GBI #### [facility] [address] [place], [place] [address] Abs. Baso 0.06 thou/cmm Normal 0.01-0.08 [facility] Comment on above: Performed By: #### H GBI #### [facility] [address] [place], [place] [address] Abs. [place] 1.43 thou/cmm High 0.27-0.70 [facility] Comment on above: Performed By: #### H GBI #### [facility] [address] [place] [address] Basophils/100 WBC (Bld) 0.5 % Normal [facility] Comment on above: Performed By: #### H GBI #### [place] [address] Eosinophils (Bld) [#/Vol] 0.18 thou/cmm Normal 0.00-0.31 [facility] Comment on above: Performed By: #### H GBI #### [facility] [address] [place] [address] Eosinophils/100 WBC (Bld) 1.4 % Normal [facility] Comment on above: Performed By: #### H GBI #### [facility] [address] [place] [address] Erythrocyte distribution width (RBC) [Ratio] 14.1 % Normal 11.7-14.4 [facility] Comment on above: Performed By: #### H GBI #### [facility] [address] [place], [place] [address] Hematocrit (Bld) [Volume fraction] 32.2 % Low 34.1-44.9 [facility] [facility] Comment on above: Performed By: #### H GBI #### [facility] [address] [place], [place] [address] Hemoglobin (Bld) [Mass/Vol] 10.1 g/dL Low 11.2-15.7 [facility] Comment on above: Performed By: #### H GBI #### [facility] [address] [place], [place] [address] Immature Grans 0.60 % Normal [facility] Comment on above: Performed By: #### H GBI #### [facility] [address] [place] [address] Lymphocytes (Bld) [#/Vol] 2.46 thou/cmm Normal 1.18-3.74 [facility] Comment on above: Performed By: #### H GBI #### [facility] [address] [place] [id number] Lymphocytes/100 WBC (Bld) 19.1 % Normal [facility] Comment on above: Performed By: #### H GBI #### [facility] [address] [place] [address] MCH (RBC) [Entitic mass] 28.2 pg Normal 25.6-32.2 [facility] Comment on above: Performed By: #### H GBI #### [facility] [address] [place] [address] MCHC (RBC) [Mass/Vol] 31.4 % Low 31.6-34.[address] [facility] Comment on above: Performed By: #### H GBI #### [facility] [address] [place] [address] MCV (RBC) [Entitic vol] 89.9 fL Normal 79.4-94.8 [facility] Comment on above: Performed By: #### H GBI #### [facility] [address] [place] [address] Monocytes/100 WBC (Bld) 11.1 % Normal [facility] Comment on above: Performed By: #### H GBI #### [facility] [address] [place] [id number] Platelet mean volume (Bld) [Entitic vol] 12.4 fL High 9.4-12.3 [facility] Comment on above: Performed By: #### H GBI #### [facility] [address] [place] [id number] Platelets (Bld) [#/Vol] 178 thou/cmm Low 182-369 [facility] Comment on above: Performed By: #### H GBI #### [facility] [address] [place], [place] [address] RBC (Bld) [#/Vol] 3.58 mil/cmm Low 3.93-5.22 [facility] Comment on above: Performed By: #### H GBI #### [facility] [address] [place] [address] RDW SD 46.3 fl Normal 36.4-46.3 [facility] Comment on above: Performed By: #### H GBI #### [facility] [address] [place] [address] Seg Neutrophil 67.3 % Normal [facility] Comment on above: Performed By: #### H GBI #### [facility] [address] [place], [place] [address] WBC (Bld) [#/Vol] 12.87 thou/cmm High 3.98-10.[address] [facility] Comment on above: Performed By: #### H GBI #### [facility] [address] [place] [address] XR CHEST 1V FRONTALon 2019 XR CHEST 1V FRONTAL * * *Final Report* * * DATE OF EXAM: May 21 2019 4:36PM AKX [id number] - XR CHEST 1V FRONTAL / PROCEDURE REASON: Acute respiratory illness * * * * Physician Interpretation * * * * EXAMINATION: CHEST RADIOGRAPH (SINGLE VIEW AP PORTABLE UPRIGHT) CLINICAL HISTORY: Acute respiratory illness MQ: XC1_5 Comparison: AP chest 05/20/2019 RESULT: Lines, tubes, and devices: None. Lungs and pleura: No consolidation. No lung mass. No pleural effusion or pneumothorax. Cardiomediastinal silhouette: Within normal limits for AP technique and unchanged Other: IMPRESSION: No acute radiographic abnormality. Account Group Supervisor: RODERICK Transcribe Date/Time: May 21 2019 4:41P Dictated by : YARY AREVALO MD This examination was interpreted and the report reviewed and electronically signed by: YARY AREVALO MD on May 21 2019 4:42PM EST Normal [facility] Basic Panelon 05-20-2019 Creatinine [Mass/Vol] 1.17 mg/dL High 0.51-0.[address] [facility] Comment on above: Result Comment: Use of this assay is not recommended for patients undergoing treatment with phenindione, due to the potential for falsely depressed results. Performed By: #### H GBI #### [facility] [address] [place], [place] [address] Anion gap [Moles/Vol] 11 mmol/L Normal 8-[address] [facility] Comment on above: Performed By: #### H GBI #### [facility] [address] [place], [place] [address] CO2 [Moles/Vol] 22 mmol/L Normal 21-32 [facility] Comment on above: Performed By: #### H GBI #### [facility] [address] [place], [place] [address] Glucose [Mass/Vol] 251 mg/dL High 70-99 [facility] Comment on above: Performed By: #### H GBI #### [facility] [address] [place], [place] [address] Urea nitrogen [Mass/Vol] 20 mg/dL High 7-18 [facility] Comment on above: Performed By: #### H GBI #### [facility] [address] [place], [place] [address] Calcium [Mass/Vol] 8.4 mg/dL Low 8.5-10.1 [facility] Comment on above: Performed By: #### H GBI #### [facility] [address] [place], [place] [address] Chloride [Moles/Vol] 106 mmol/L Normal 98-107 [facility] Comment on above: Performed By: #### H GBI #### [facility] [address] [place], [place] [address] Potassium [Moles/Vol] 4.1 mmol/L Normal 3.5-5.[address] [facility] Comment on above: Performed By: #### H GBI #### [facility] [address] [place], [place] [address] Sodium [Moles/Vol] 135 mmol/L Low 136-145 [facility] Comment on above: Performed By: #### H GBI #### [facility] [address] [place] [address] Cult Bloodon 05-20-2019 Cult Blood Test performed at [facility] No growth Normal [facility] Comment on above: Performed By: #### H CTI #### [facility] [address] [place] [address] Cult Urineon 05-20-2019 Cult Urine Test performed at [facility] No growth <1,000 CFU/ml. Normal [facility] Comment on above: Performed By: #### H CTI #### [facility] [address] [place] [address] Hemogram/Diffon 05-20-2019 Abs Immature Grans 0.08 thou/cmm High 0.00-0.[address] [facility] Comment on above: Performed By: #### H GBI #### [facility] [address] [place] [address] Abs Neut (ANC) 10.49 thou/cmm High 1.56-6.13 [facility] Comment on above: Performed By: #### H GBI #### [facility] [address] [place] [address] Abs. Baso 0.05 thou/cmm Normal 0.01-0.08 [facility] Comment on above: Performed By: #### H GBI #### [facility] [address] [place] [address] Abs. [place] 1.28 thou/cmm High 0.27-0.70 [facility] Comment on above: Performed By: #### H GBI #### [place] [address] Basophils/100 WBC (Bld) 0.4 % Normal [facility] Comment on above: Performed By: #### H GBI #### [place] [address] Eosinophils (Bld) [#/Vol] 0.12 thou/cmm Normal 0.00-0.31 [facility] Comment on above: Performed By: #### H GBI #### [facility] [address] [place], [place] [address] Eosinophils/100 WBC (Bld) 0.9 % Normal [facility] Comment on above: Performed By: #### H GBI #### [facility] [address] [place], [place] [address] Immature Grans 0.60 % Normal [facility] Comment on above: Performed By: #### H GBI #### [facility] [address] [place], [place] [address] Lymphocytes (Bld) [#/Vol] 1.61 thou/cmm Normal 1.18-3.74 [facility] Comment on above: Performed By: #### H GBI #### [facility] [address] [place], [place] [address] Lymphocytes/100 WBC (Bld) 11.8 % Normal [facility] Comment on above: Performed By: #### H GBI #### [facility] [address] [place], [place] [address] Monocytes/100 WBC (Bld) 9.4 % Normal [facility] Comment on above: Performed By: #### H GBI #### [facility] [address] [place], [place] [address] Seg Neutrophil 76.9 % Normal [facility] Comment on above: Performed By: #### H GBI #### [facility] [address] [place], [place] [address] Erythrocyte distribution width (RBC) [Ratio] 13.9 % Normal 11.7-14.4 [facility] Comment on above: Performed By: #### H GBI #### [facility] [address] [place], [place] [address] Hematocrit (Bld) [Volume fraction] 32.6 % Low 34.1-44.9 [facility] Comment on above: Performed By: #### H GBI #### [facility] [address] [place], [place] [address] Hemoglobin (Bld) [Mass/Vol] 10.4 g/dL Low 11.2-15.7 [facility] Comment on above: Performed By: #### H GBI #### [facility] [address] [place] [address] MCH (RBC) [Entitic mass] 28.3 pg Normal 25.6-32.2 [facility] Comment on above: Performed By: #### H GBI #### [facility] [address] [place] [address] MCHC (RBC) [Mass/Vol] 31.9 % Normal 31.6-34.[address] [facility] Comment on above: Performed By: #### H GBI #### [facility] [address] [place] [address] MCV (RBC) [Entitic vol] 88.8 fL Normal 79.4-94.8 [facility] Comment on above: Performed By: #### H GBI #### [facility] [address] [place] [address] Platelet mean volume (Bld) [Entitic vol] 11.9 fL Normal 9.4-12.3 [facility] Comment on above: Performed By: #### H GBI #### [facility] [address] [place] [address] Platelets (Bld) [#/Vol] 181 thou/cmm Low 182-369 [facility] Comment on above: Performed By: #### H GBI #### [facility] [address] [place] [address] RBC (Bld) [#/Vol] 3.67 mil/cmm Low 3.93-5.22 [facility] Comment on above: Performed By: #### H GBI #### [facility] [address] [place] [address] RDW SD 45.2 fl Normal 36.4-46.3 [facility] Comment on above: Performed By: #### H GBI #### [facility] [address] [place] [address] WBC (Bld) [#/Vol] 13.64 thou/cmm High 3.98-10.[address] [facility] Comment on above: Performed By: #### H GBI #### [facility] [address] [place], [place] [address] XR CHEST 1V FRONTALon 2019 XR CHEST 1V FRONTAL * * *Final Report* * * DATE OF EXAM: May 20 2019 9:10PM AKX 5290 - XR CHEST 1V FRONTAL / PROCEDURE REASON: Post-operative / post-procedure assessment, symptomatic * * * * Physician Interpretation * * * * EXAMINATION: CHEST RADIOGRAPH (SINGLE VIEW AP OR PA) CLINICAL HISTORY: Post-operative / post-procedure assessment, symptomatic MQ: XC1_5 Comparison: None RESULT: Lines, tubes, and devices: None. Lungs and pleura: There is mild bibasilar atelectasis/infiltrate (left greater than right). No pleural effusion. Cardiomediastinal silhouette: Exaggerated cardiomediastinal silhouette. Other: The bony structures are grossly intact. There are surgical clips in the right upper quadrant, suggestive of prior cholecystectomy. IMPRESSION: MILD BIBASILAR ATELECTASIS/INFILTRATE (LEFT GREATER THAN RIGHT). Account Group Supervisor: PSCB Transcribe Date/Time: May 20 2019 9:12P Dictated by : KALYN LESTER MD This examination was interpreted and the report reviewed and electronically signed by: KALYN LESTER MD on May 20 2019 9:13PM EST Normal [facility] Antibody Idon 05-19-2019 Antibody Id See Below Normal [facility] Comment on above: Result Comment: Anti -E (Rh system) may result in a transfusion reaction or cause HDN. Approximately 70% of donor blood will be compatible. Please allow for a short delay in compatibility testing. Performed By: #### H GBI #### [facility] [address] [place], [place] [address] Basic Panelon 05-19-2019 Creatinine [Mass/Vol] 1.23 mg/dL High 0.51-0.[address] [facility] Comment on above: Result Comment: Use of this assay is not recommended for patients undergoing treatment with phenindione, due to the potential for falsely depressed results. Performed By: #### H GBI #### [address] [address] Anion gap [Moles/Vol] 9 mmol/L Normal 8-[address] [facility] Comment on above: Performed By: #### H GBI #### [facility] [address] [place], [place] [address] CO2 [Moles/Vol] 26 mmol/L Normal 21-32 [facility] Comment on above: Performed By: #### H GBI #### [facility] [address] [place], [place] [address] Urea nitrogen [Mass/Vol] 19 mg/dL High 7-18 [facility] Comment on above: Performed By: #### H GBI #### [facility] [address] [place], [place] [address] Calcium [Mass/Vol] 8.7 mg/dL Normal 8.5-10.1 [facility] Comment on above: Performed By: #### H GBI #### [facility] [address] [place], [place] [address] Glucose [Mass/Vol] 214 mg/dL High 70-99 [facility] Comment on above: Performed By: #### H GBI #### [facility] [address] [place], [place] [address] Chloride [Moles/Vol] 106 mmol/L Normal 98-107 [facility] Comment on above: Performed By: #### H GBI #### [facility] [address] [place], [place] [address] Potassium [Moles/Vol] 4.5 mmol/L Normal 3.5-5.[address] [facility] Comment on above: Performed By: #### H GBI #### [facility] [address] [place], [place] [address] Sodium [Moles/Vol] 136 mmol/L Normal 136-145 [facility] Comment on above: Performed By: #### H GBI #### [facility] [address] [place], [place] [address] Creatinine, Fluidon 05-19-19 20 Creatinine [Mass/Vol] 1.1 mg/dL Normal [facility] Comment on above: Result Comment: Crea tinine measurement in peritoneal or drainage fluids is considered a useful test for detecting the presence of urine leaking through a defect in the urinary tract. A ratio of serous fluid creatinine to a concurrent serum creatinine > 1.0 mg/dL indicates possible urine extravasation. Use of this assay is not recommended for patients undergoing treatment with phenindione, due to the potential for falsely depressed results Performed By: #### H GBI #### [facility] [address] [place] [address] Specimen type Nom (Spec) BROOKE Drainage Normal [facility] Comment on above: Performed By: #### H GBI #### [place] [address] Hemogramon 05-19-2019 Erythrocyte distribution width (RBC) [Ratio] 14.0 % Normal 11.7-14.4 [facility] Comment on above: Performed By: #### H GBI #### [place] [address] Hematocrit (Bld) [Volume fraction] 36.8 % Normal 34.1-44.9 [facility] Comment on above: Performed By: #### H GBI #### [place] [address] Hemoglobin (Bld) [Mass/Vol] 11.6 g/dL Normal 11.2-15.7 [facility] Comment on above: Performed By: #### H GBI #### [place] [address] MCH (RBC) [Entitic mass] 28.0 pg Normal 25.6-32.2 [facility] Comment on above: Performed By: #### H GBI #### [place] [address] MCHC (RBC) [Mass/Vol] 31.5 % Low 31.6-34.[address] [facility] Comment on above: Performed By: #### H GBI #### [place] [address] MCV (RBC) [Entitic vol] 88.9 fL Normal 79.4-94.8 [facility] Comment on above: Performed By: #### H GBI #### [place] [address] Platelet mean volume (Bld) [Entitic vol] 12.2 fL Normal 9.4-12.3 [facility] Comment on above: Performed By: #### H GBI #### [place] [address] Platelets (Bld) [#/Vol] 212 thou/cmm Normal 182-369 [facility] Comment on above: Performed By: #### H GBI #### [place] [address] RBC (Bld) [#/Vol] 4.14 mil/cmm Normal 3.93-5.22 [facility] Comment on above: Performed By: #### H GBI #### [place] [address] RDW SD 45.5 fl Normal 36.4-46.3 [facility] Comment on above: Performed By: #### H GBI #### [place] [address] WBC (Bld) [#/Vol] 12.21 thou/cmm High 3.98-10.[address] [facility] Comment on above: Performed By: #### H GBI #### [place] [address] Type and Screenon 05-19-2019 ABO group Nom (Bld) O Normal [facility] Comment on above: Performed By: #### H GBI #### [place] [address] Comment See Below Normal [facility] Comment on above: Result Comment: Scre en &/or Xmatch expires in 3 days at 12 midnight. Redraw patient at that time. Performed By: #### H GBI #### [place] [address] RH Type Positive Normal [facility] Comment on above: Performed By: #### H GBI #### [place] [address] Surgical Tissue Examon 05-17 Surgical Tissue Exam Test performed at A [address] [place], [place] [address] NAME: LAISHA WALKER REQUESTING: GARCIA URIBE M.D. COPY TO: TUMOR REGISTRY; ELECTRICIAN SUPERVISOR SUPPLEMENTAL INFORMATION A: SPECIAL STAIN FOR METZGER'S COLLOIDAL IRON APPEARED NEGATIVE IN THE NEOPLASM. THE DIAGNOSIS REMAINS UNCHANGED. VINICIO PALACIOS M.D. 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 SURGICAL MARGINS NEGATIVE. SEE COMMENT. COMMENT: Sections demonstrate nests of tumor cells with eosinophilic cytoplasm and some nuclear atypia. Immunohistochemical stains demonstrate the neoplasm to be positive by IHC for CD117 and p504s with rare, scattered CK7+ cells. Also present focally are features of papillary adenoma. Dr. Kristofer Hernandez reviewed the case and agrees with the diagnosis. Kidney Cancer Case Summary Procedure: Partial nephrectomy. Specimen laterality: Right. Tumor size: Greatest dimension: 3.1 cm. Tumor focality: Unifocal. Histologic type: Low grade oncocytic renal cell carcinoma. Sarcomatoid features: Not identified. Rhabdoid features: Not identified. Histologic grade: Not applicable. Necrosis: Not identified. Tumor extension: Tumor limited to kidney. Margins: Uninvolved by invasive carcinoma. Regional lymph nodes: No nodes submitted or found. Pathologic stage: pT1a pNX. Laboratory Developed Test (LDT) Disclaimer: Positive and negative controls stain appropriately. Performance characteristics of immunohistochemical tests have been determined by [facility]'s Department of Pathology and Laboratory Medicine in a manner consistent with CLIA requirements. One or more of these tests have not been cleared or approved by the FDA. [facility] is regulated under CLIA as qualified to perform high-complexity testing. These tests are useful for clinical purposes. They should not be regarded as investigational or for research. OPERATIVE PROCEDURE: Robotic laparoscopic nephrectomy partial CLINICAL INFORMATION: Renal carcinoma, right GROSS DESCRIPTION: Right kidney tumor Received in formalin labeled right kidney tumor is a segment of kidney measuring 5.0 x 3.7 x 4.2 cm and weighing 31.0 gm. Renal artery, vein, polyps and ureter are not present within the specimen. A portion of renal sinus fat is identified and inked orange. The parenchymal margin is inked blue and the capsular surface is inked black. Upon sectioning, two areas of interest are identified. The first is a yellow-orange, well-circumscribed solid mass measuring 3.1 x 3.0 x 2.8 cm. Areas of hemorrhage are present. The mass bulges at the capsule, but does not appear to extend into or through the capsule. The mass is located 0.7 cm from the parenchymal margin and extends within 0.1 cm of the renal sinus. The mass does not grossly appear to involve the renal sinus. Adjacent to the mass is a white, cystic, slightly calcified nodule measuring 1.5 x 1.4 x 1.2 cm. It bulges at the capsule, but does not appear to extend into or involve the capsule. It is 0.7 cm from the parenchymal margin and 0.8 cm from the renal sinus. The remainder of the parenchyma is unremarkable. Tissue is submitted as follows: 1 - first mass with parenchymal margin; 2-3 - first mass with extent to capsule; 4-5 - first mass with renal sinus; 6-7 - sales representative meats sections of calcified cystic nodule following a brief period of decalcification with capsule and parenchymal margin; 8 - additional sales representative meats section of cystic slightly calcified nodule with capsular surface following a brief period of decalcification. KVB:neva PALACIOS M.D. PATHOLOGIST (Electronic signature on file) Signed out: 05/24/2019 16:07 PRINTED: 06/01/2019 Page 1 of 1 [facility] Comment on above: Performed By: #### H CTI #### [place] [address] RBC Productson 05-12-2019 Xmatch Unit 1 see below [facility] Comment on above: Result Comment: Comp atible Performed By: #### R BCPS #### [place] [address] Xmatch Unit 2 see below [facility] Comment on above: Result Comment: Comp atible Performed By: #### R BCPS #### [place] [address] Antibody Idon 05-05-2019 Antibody Id See Below [facility] Comment on above: Result Comment: Anti -E (Rh system) may result in a transfusion reaction or cause HDN. Approximately 70% of donor blood will be compatible. Please allow for a short delay in compatibility testing. Performed By: #### A BID #### [facility] [address] [place], [place] [address] Type and Screenon 05-05-2019 AutoControl Negative Normal NEGATIVE [facility] Comment on above: Performed By: #### T &S #### [facility] [address] [place], [place] [address] Basic Panelon 05-04-2019 Creatinine [Mass/Vol] 0.82 mg/dL Normal 0.51-0.[address] [facility] Comment on above: Result Comment: Use of this assay is not recommended for patients undergoing treatment with phenindione, due to the potential for falsely depressed results. Performed By: #### P 8 #### [facility] [address] [place], [place] [address] Glucose [Mass/Vol] 207 mg/dL High 70-99 [facility] Comment on above: Performed By: #### P 8 #### [facility] [address] [place], [place] [address] Anion gap [Moles/Vol] 10 mmol/L Normal 8-[address] [facility] Comment on above: Performed By: #### P 8 #### [address] [address] CO2 [Moles/Vol] 26 mmol/L Normal 21-32 [facility] Comment on above: Performed By: #### P 8 #### [facility] [address] [place], [place] [address] Urea nitrogen [Mass/Vol] 27 mg/dL High 7-18 [facility] Comment on above: Performed By: #### P 8 #### [facility] [address] [place], [place] [address] Calcium [Mass/Vol] 10.0 mg/dL Normal 8.5-10.1 [facility] Comment on above: Performed By: #### P 8 #### [address] [address] Chloride [Moles/Vol] 106 mmol/L Normal 98-107 [facility] Comment on above: Performed By: #### P 8 #### [facility] [address] [place] [address] Potassium [Moles/Vol] 4.2 mmol/L Normal 3.5-5.[address] [facility] Comment on above: Performed By: #### P 8 #### [facility] [address] [place], [place] [address] Sodium [Moles/Vol] 138 mmol/L Normal 136-145 [facility] Comment on above: Performed By: #### P 8 #### [facility] [address] [place] [address] Cult Urineon 05-04-2019 Cult Urine Test performed at [facility] ORGANISM: Normal Urogenital Pili (ID: 1) 10,000-50,000 CFU/ml Normal [facility] Comment on above: Performed By: #### C _URI #### [place] [address] Hcton 05-04-2019 Hematocrit (Bld) [Volume fraction] 41.3 % Normal 34.1-44.9 [facility] Comment on above: Performed By: #### H CTI #### [place] [address] Hgbon 05-04-2019 Hemoglobin (Bld) [Mass/Vol] 13.1 g/dL Normal 11.2-15.7 [facility] Comment on above: Performed By: #### H GBI #### [place] [address] MDRD GFRon 05-04-2019 GFR/1.73 sq M predicted among non-blacks MDRD (S/P/Bld) [Vol rate/Area] mL/min/{1.73_m2} Normal >60mL/min/1. 73m2 [facility] Comment on above: Result Comment: If t he patient is , multiply the result by 1.210. Performed By: #### G FR #### [place] [address] Protimeon 05-04-2019 INR Coag (PPP) [Relative time] 2.51 {INR} High 0.90-1.30 [facility] Comment on above: Result Comment: Daja min K Antagonist (VKA) Therapeutic Range: INR 2 to 3 (Target INR of 2.5) Note: For patients treated with VKA drugs, such as warfarin, the [place] [employer] 2012 Guideline recommends a therapeutic INR range of 2 to 3 (target INR of 2.5). This recommendation includes high-risk patients with antiphospholipid syndrome with previous arterial or venous thromboembolism, current-generation mechanical or bioprosthetic aortic heart valve replacement. Note: Patients with mechanical aortic valve replacement and additional risk factors for thromboembolic events (atrial fibrillation, previous thromboembolism, LV dysfunction, hypercoagulable conditions) or an older generation mechanical AVR (i.e., ball in-Cage) or any mechanical MVR should have a INR therapeutic range of 2.5 to 3.5 target INR of 3). Joseph COX, et al. Chest 2012; 141:7S-47S Yoli CARMICHAEL et al. [facility] 2017; 70: 252-289 Performed By: #### M PT #### [place] [address] PT Coag (PPP) [Time] 26.6 s High 9.7-13.0 [facility] Comment on above: Performed By: #### M PT #### [place] [address] Type and Screenon 05-04-2019 ABO group Nom (Bld) O Normal [facility] [facility] Comment on above: Performed By: #### T &S #### [place] [id number] Comment PAT specimen Normal [facility] Comment on above: Performed By: #### T &S #### [place] [address] RH Type Positive Normal [facility] Comment on above: Performed By: #### T &S #### [place] [address] ECG 12-LEADon 08-02-2018 [facility] [place] P-R Interval [facility] Q-T Interval [facility] Q-T Interval (corrected) [facility] QRS Duration [facility] QTC Calculation (Bezet) [facility] T [facility] Ventricular Rate [facility] 08-02-2018 Cholesterol in HDL mass conc 41 mg/dL 40 - 59 [facility] Comment on above: National Cholesterol Education Program Guidelines: HDL Cholesterol Low: <40 mg/dL Near Optimal: 40-59 mg/dL High: greater than or equal to 60 mg/dL Cholesterol in LDL mass conc 170 mg/dL High 10 - 130 mg/dL [facility] Comment on above: National Cholesterol Education Program Guidelines: LDL Cholesterol Optimal: <100 mg/dL Near Optimal/above Optimal: 100-129 mg/dL Borderline High: 130-159 mg/dL High: 160-189 mg/dL Very High: greater than or equal to 190 mg/dL Reference range change on 03/21/17 to reflect NCEP guidelines. Cholesterol mass conc 277 mg/dL High 100 - 199 mg/dL [facility] Comment on above: National Cholesterol Education Program Guidelines: Cholesterol Desirable: <200 mg/dL Borderline High: 200-239 mg/dL High: greater than or equal to 240 mg/dL Cholesterol non HDL mass conc 236 mg/dL [facility] Comment on above: National Cholesterol Education Program Guidelines: NON HDL Cholesterol Desirable: <130 mg/dL Borderline High: 130-159 mg/dL High: 160-189 mg/dL Very High: > or = 190 mg/dL Cholesterol.total/Jahaira sterol in HDL mass ratio 6.8 {ratio} ratio [facility] Comment on above: Female Cholesterol/HDL Ratio: Average risk: 4.4 1/2 average risk: 3.3 2 x average risk: 7.1 Interpretation and review of laboratory results Abnormal [facility] Triglyceride mass conc 330 mg/dL High 30 - 150 mg/dL [facility] Comment on above: National Cholesterol Education Program Guidelines: Triglyceride Normal: <150 mg/dL Borderline High: 150-199 mg/dL High: 200-499 mg/dL Very High: greater than or equal to 500 mg/dL Protime-INRon 08-02-2018 INR Coag RelTime (PPP) 2.3 {INR} High [facility] Interpretation and review of laboratory results Abnormal [facility] Prothrombin time (PT) Coag time (PPP) 24.1 s High [facility] During the induction phase of oral anticoagulation, the INR may not reflect the anticoagulation status of the patient. Therapeutic ranges for INR's are: Most clinical situations: INR 2.0-3.0 Mechanical Prosthetic Valve: INR 2.5-3.5 Critical: INR >5.0 [facility] CTA NECK W/ OR W/ ANDW/ CONT Cheng 01-05-2018 CTA NECK W/ OR W/ ANDW/ CONTRAST Final ReportAccession No: [id number] Performed: Jan 05 2018 3:58PMExamination: CTA NECK W/ OR W/ ANDW/ CONTRASTEXAMINATION: CTA NECK W/ OR W/ ANDW/ CONTRASTCLINICAL STATEMENT: Carotid artery stenosis.COMPARISON: None.TECHNIQUE: Spiral axial examination performed through the neck withcontrastand reconstructed on an independent work station in the axial and coronalplanes with maximum intensity projection and by rendering techniques.NASCETcriteri a used to determine the percent stenosis.Dose reduction techniques were achieved by using automated exposurecontroland/or adjustment of mA and/or kV according to patient size and/or use ofiterative reconstruction technique.CONTRAST: 75 mL Isovue-370 contrastFINDINGS:ORIGIN OF THE GRE[place]ESSELS: No evidence of stenosis.COMMON CAROTID ARTERIES: Normal.LEFT CAROTID BIFURCATION: Atherosclerotic calcification of soft plaquewith aresidual lumen of 1.5 mm as compared to a cervical carotid artery lumenof 5 mmconsistent with a stenosis of approximately 70%.RIGHT CAROTID BIFURCATION: Atherosclerotic calcification without stenosis.CERVICAL CAROTID ARTERIES: Normal.VERTEBRAL ARTERIES: Normal.Multinodular thyroid, no evidence of adenopathy. Lung apices are clear.Osseousstructures are intact.IMPRESSION:1. Approximately 70% stenosis of the origin of the left internal carotidartery. No evidence of stenosis of the origin right internal carotidartery.2. Multinodular thyroid.Interpreting Physician: KEANU PARK M.D.Trans: [email or web address] : cc: Normal [facility] Creatinine with eGFRon 01-05 Creatinine mass conc 0.9 mg/dL Invalid Interpretation Code 0.6 - 1.2 mg/dL [facility] GFR/1.73 sq M predicted among blacks MDRD vol rate/area (S/P/Bld) mL/min/{1.73_m2} Invalid Interpretation Code ml/min/1.73s q.m [facility] GFR/1.73 sq M predicted among non-blacks MDRD vol rate/area (S/P/Bld) mL/min/{1.73_m2} Invalid Interpretation Code ml/min/1.73s q.m [facility] Comment on above: eGFR is an estimated Glomerular Filtration Rate based on the value of the patient's serum creatinine. In outpatients, eGFR should be used as a helpful tool in screening for CKD. In inpatients or patients with acute renal failure, eGFR represents the GFR at the moment of the draw and should be used with caution. Creatinine mass conc 0.9 mg/dL Normal 0.60-1.20 [facility] Comment on above: Performed By: #### C REAT ####Unless otherwise noted, all testing performed by [address] [id number]: [id number] Director: Yary Carmichael M.D. GFR/1.73 sq M predicted among blacks MDRD vol rate/area (S/P/Bld) mL/min/{1.73_m2} Normal [facility] Comment on above: Performed By: #### C REAT ####Unless otherwise noted, all testing performed by [address] [id number]: [id number] Director: Yary Carmichael M.D. GFR/1.73 sq M predicted among non-blacks MDRD vol rate/area (S/P/Bld) mL/min/{1.73_m2} Normal [facility] Comment on above: Result Comment: eGFR is an estimated Glomerular Filtration Rate based on the valueof the patient's serum creatinine. In outpatients, eGFR should be usedas a helpful tool in screening for CKD. In inpatients or patients withacute renal failure, eGFR represents the GFR at the moment of the drawand should be used with caution. Performed By: #### C REAT ####Unless otherwise noted, all testing performed by [address] [id number]: [id number] Director: Yary Carmichael M.D. Vital Signs Date Time Vital Sign Value Performing Clinician Facility 11-09-2024 17:06-0400 Body mass index (BMI) [Ratio] 34.1 kg/m2 Norma Praisler-Wood SILK SCREEN CUTTER.MORTICIAN INVESTIGATOR Work Phone: [facility] 11-09-2024 17:06-0400 Body temperature 98.1 [degF] Norma Praisler-Wood SILK SCREEN CUTTER.MORTICIAN INVESTIGATOR Work Phone: [facility] 11-09-2024 17:06-0400 Body weight 88.7 kg Norma Praisler-Wood SILK SCREEN CUTTER.MORTICIAN INVESTIGATOR Work Phone: [facility] 11-09-2024 17:06-0400 Diastolic blood pressure 75 mm[Hg] Norma Praisler-Wood SILK SCREEN CUTTER.MORTICIAN INVESTIGATOR Work Phone: [facility] 11-09-2024 17:06-0400 Heart rate 65 /min Norma Praisler-Wood SILK SCREEN CUTTER.MORTICIAN INVESTIGATOR Work Phone: [facility] 11-09-2024 17:06-0400 Respiratory rate 18 /min Norma Praisler-Wood SILK SCREEN CUTTER.MORTICIAN INVESTIGATOR Work Phone: [facility] 11-09-2024 17:06-0400 SaO2% (BldA) [Mass fraction] 98 % Norma Praisler-Wood SILK SCREEN CUTTER.MORTICIAN INVESTIGATOR Work Phone: [facility] 11-09-2024 17:06-0400 Systolic blood pressure 144 mm[Hg] Norma Praisler-Wood SILK SCREEN CUTTER.MORTICIAN INVESTIGATOR Work Phone: [facility] 11-01-2024 12:20-0400 Diastolic blood pressure 61 mm[Hg] Chelsi Cobb MD Work Phone: [facility] 11-01-2024 12:20-0400 Heart rate 60 /min Chelsi Cobb MD Work Phone: [facility] 11-01-2024 12:20-0400 SaO2% (BldA) [Mass fraction] 98 % Chelsi Cobb MD Work Phone: [facility] 11-01-2024 12:20-0400 Systolic blood pressure 137 mm[Hg] Chelsi Cobb MD Work Phone: [facility] 11-01-2024 11:59-0400 Body temperature 97.5 [degF] Chelsi Cobb MD Work Phone: [facility] 11-01-2024 11:59-0400 Respiratory rate 16 /min Chelsi Cobb MD Work Phone: [facility] 10-17-2024 13:55-0400 Body height 161.3 cm Pacc 1 Work Phone: [facility] 10-17-2024 13:55-0400 Body mass index (BMI) [Ratio] 34.35 kg/m2 Pacc 1 Work Phone: [facility] 10-17-2024 13:55-0400 Body temperature 97.3 [degF] Pacc 1 Work Phone: [facility] 10-17-2024 13:55-0400 Body weight 89.36 kg Pacc 1 Work Phone: [facility] 10-17-2024 13:55-0400 Diastolic blood pressure 52 mm[Hg] Pacc 1 Work Phone: [facility] 10-17-2024 13:55-0400 Heart rate 76 /min Pacc 1 Work Phone: [facility] 10-17-2024 13:55-0400 Respiratory rate 14 /min Pacc 1 Work Phone: [facility] 10-17-2024 13:55-0400 SaO2% (BldA) [Mass fraction] 97 % Pacc 1 Work Phone: [facility] 10-17-2024 13:55-0400 Systolic blood pressure 118 mm[Hg] Pacc 1 Work Phone: [facility] 10-17-2024 11:36-0400 Body height 162.[address] Flako Tracy MD Work Phone: [facility] 10-17-2024 11:36-0400 Body mass index (BMI) [Ratio] 33.6 kg/m2 Dr. Flako Tracy MD Work Phone: [facility] 10-17-2024 11:36-0400 Body weight 88.[address] Flako Tracy MD Work Phone: [facility] 10-17-2024 11:36-0400 Diastolic blood pressure 73 mm[Hg] Dr. Flako Tracy MD Work Phone: [facility] 10-17-2024 11:36-0400 Heart rate 59 /min Dr. Flako Tracy MD Work Phone: [facility] 10-17-2024 11:36-0400 Respiratory rate 16 /min Dr. Flako Tracy MD Work Phone: [facility] 10-17-2024 11:36-0400 Systolic blood pressure 133 mm[Hg] Dr. Flako Tracy MD Work Phone: [facility] 09-26-2024 10:37-0400 Body height 157.5 cm Adria Ansari MD Work Phone: [facility] 09-26-2024 10:37-0400 Body mass index (BMI) [Ratio] 36.03 kg/m2 Adria Ansari MD Work Phone: [facility] 09-26-2024 10:37-0400 Body weight 89.36 kg Adria Ansari MD Work Phone: [facility] 09-26-2024 10:37-0400 Diastolic blood pressure 62 mm[Hg] Adria Ansari MD Work Phone: [facility] 09-26-2024 10:37-0400 Heart rate 73 /min Adria Ansari MD Work Phone: [facility] 09-26-2024 10:37-0400 SaO2% (BldA) [Mass fraction] 98 % Adria Ansari MD Work Phone: [facility] 09-26-2024 10:37-0400 Systolic blood pressure 120 mm[Hg] Adria Ansari MD Work Phone: [facility] 08-24-2024 10:49-0400 Body mass index (BMI) [Ratio] 35.78 kg/m2 Flako Tracy MD Work Phone: [facility] 08-24-2024 10:49-0400 Body weight 91.6 kg Flako Tracy MD Work Phone: [facility] 08-24-2024 10:49-0400 Diastolic blood pressure 70 mm[Hg] Flako Tracy MD Work Phone: [facility] 08-24-2024 10:49-0400 Heart rate 78 /min Flako Tracy MD Work Phone: [facility] 08-24-2024 10:49-0400 Respiratory rate 16 /min Flako Tracy MD Work Phone: [facility] 08-24-2024 10:49-0400 SaO2% (BldA) [Mass fraction] 99 % Flako Tracy MD Work Phone: [facility] 08-24-2024 10:49-0400 Systolic blood pressure 120 mm[Hg] Flako Tracy MD Work Phone: [facility] 06-22-2024 08:47-0400 Body temperature 97.7 [degF] Dr. Flako Tracy MD Work Phone: [facility] 06-22-2024 08:47-0400 Body weight 90.[address] Flako Tracy MD Work Phone: [facility] 06-22-2024 08:47-0400 Diastolic blood pressure 73 mm[Hg] Dr. Flako Tracy MD Work Phone: [facility] 06-22-2024 08:47-0400 Heart rate 61 /min Dr. Flako Tracy MD Work Phone: 3(376)760-565056 [place] [address] 06-22-2024 08:47-0400 Respiratory rate 16 /min Dr. Flako Tracy MD Work Phone: 0(637)276-979756 [place] [address] 06-22-2024 08:47-0400 SaO2% (BldA) [Mass fraction] 95 % Dr. Flako Tracy MD Work Phone: 4(938)999-749356 [place] [address] 06-22-2024 08:47-0400 Systolic blood pressure 143 mm[Hg] Dr. Flako Tracy MD Work Phone: 9(365)378-946056 [place] [address] 06-13-2024 14:08-0400 Body height 162.[address] Flako Tracy MD Work Phone: 1(003)493-574256 [place] [address] 06-13-2024 14:08-0400 Body mass index (BMI) [Ratio] 34.3 kg/m2 Dr. Flako Tracy MD Work Phone: 8(669)769-871856 [place] [address] 06-13-2024 14:08-0400 Body weight 90.[address] Flako Tracy MD Work Phone: 7(760)667-139956 [place] [address] 06-13-2024 14:08-0400 Diastolic blood pressure 83 mm[Hg] Dr. Flako Tracy MD Work Phone: 6(652)160-548656 [place] [address] 06-13-2024 14:08-0400 Heart rate 95 /min Dr. Flako Tracy MD Work Phone: 7(935)004-320856 [place] [address] 06-13-2024 14:08-0400 Respiratory rate 16 /min Dr. Flako Tracy MD Work Phone: 7(637)809-968056 [place] [address] 06-13-2024 14:08-0400 SaO2% (BldA) [Mass fraction] 95 % Dr. Flako Tracy MD Work Phone: 5(418)694-755556 [place] [address] 06-13-2024 14:08-0400 Systolic blood pressure 154 mm[Hg] Dr. Flako Tracy MD Work Phone: 2(218)255-377856 [place] [address] 06-08-2024 13:02-0400 Diastolic blood pressure 66 mm[Hg] Otoniel Christine SILK SCREEN CUTTER.MORTICIAN INVESTIGATOR Work Phone: [facility] 06-08-2024 13:02-0400 Systolic blood pressure 120 mm[Hg] Otoniel Christine SILK SCREEN CUTTER.MORTICIAN INVESTIGATOR Work Phone: [facility] 06-08-2024 12:43-0400 Body mass index (BMI) [Ratio] 35.44 kg/m2 Otoniel Christine SILK SCREEN CUTTER.MORTICIAN INVESTIGATOR Work Phone: [facility] 06-08-2024 12:43-0400 Body weight 90.72 kg Otoniel Christine SILK SCREEN CUTTER.MORTICIAN INVESTIGATOR Work Phone: [facility] 06-08-2024 12:43-0400 Heart rate 65 /min Otoniel Christine SILK SCREEN CUTTER.MORTICIAN INVESTIGATOR Work Phone: [facility] 06-08-2024 12:43-0400 Respiratory rate 16 /min Otoniel Christine SILK SCREEN CUTTER.MORTICIAN INVESTIGATOR Work Phone: [facility] 06-08-2024 12:43-0400 SaO2% (BldA) [Mass fraction] 96 % Otoniel Christine SILK SCREEN CUTTER.MORTICIAN INVESTIGATOR Work Phone: [facility] 06-05-2024 08:54-0400 Diastolic blood pressure 60 mm[Hg] Dr. Flako Tracy MD Work Phone: [facility] 06-05-2024 08:54-0400 Heart rate 64 /min Dr. Flako Tracy MD Work Phone: [facility] 06-05-2024 08:54-0400 Systolic blood pressure 150 mm[Hg] Dr. Flako Tracy MD Work Phone: [facility] 06-05-2024 08:50-0400 Body temperature 97.8 [degF] Dr. Flako Tracy MD Work Phone: [facility] 06-05-2024 08:50-0400 Respiratory rate 16 /min Dr. Flako Tracy MD Work Phone: 9(039)914-395756 [place] [address] 06-05-2024 08:50-0400 SaO2% (BldA) [Mass fraction] 100 % Dr. Flako Tracy MD Work Phone: 7(882)731-767656 [place] [address] 06-05-2024 05:11-0400 Body mass index (BMI) [Ratio] 34.8 kg/m2 Dr. Flako Tracy MD Work Phone: 2(552)545-189356 [place] [address] 06-05-2024 05:11-0400 Body weight [address] Flako Tracy MD Work Phone: 6(904)533-262856 [place] [address] 06-04-2024 21:00-0400 Body temperature 97.6 [degF] Dr. Flako Tarcy MD Work Phone: 8(152)501-779956 [place] [address] 06-04-2024 21:00-0400 Diastolic blood pressure 65 mm[Hg] Dr. Flako Tracy MD Work Phone: 6(575)196-427256 [place] [address] 06-04-2024 21:00-0400 Heart rate 64 /min Dr. Flako Tracy MD Work Phone: 2(510)183-925456 [place] [address] 06-04-2024 21:00-0400 Respiratory rate 16 /min Dr. Flako Tracy MD Work Phone: 4(912)025-531956 [place] [address] 06-04-2024 21:00-0400 SaO2% (BldA) [Mass fraction] 96 % Dr. Flako Tracy MD Work Phone: 4(174)523-425756 [place] [address] 06-04-2024 21:00-0400 Systolic blood pressure 140 mm[Hg] Dr. Flako Tracy MD Work Phone: 1(835)507-885456 [place] [address] 06-04-2024 05:53-0400 Body mass index (BMI) [Ratio] 34.4 kg/m2 Dr. Flako Tracy MD Work Phone: 2(258)748-006756 [place] [address] 06-04-2024 05:53-0400 Body weight 91.[address] Flako Tracy MD Work Phone: 0(027)260-872556 [place] [address] 06-02-2024 12:35-0400 Body height 162.[address] Flako Tracy MD Work Phone: 3(734)614-850556 [place] [address] 06-02-2024 07:08-0400 Body temperature 98.2 [degF] Dr. Flako Tracy MD Work Phone: 5(326)963-637956 [place] [address] 06-02-2024 07:08-0400 Diastolic blood pressure 59 mm[Hg] Dr. Flako Tracy MD Work Phone: 3(253)210-396556 [place] [address] 06-02-2024 07:08-0400 Heart rate 79 /min Dr. Flako Tracy MD Work Phone: 8(431)529-225156 [place] [address] 06-02-2024 07:08-0400 Respiratory rate 18 /min Dr. Flako Tracy MD Work Phone: 6(959)833-206656 [place] [address] 06-02-2024 07:08-0400 SaO2% (BldA) [Mass fraction] 97 % Dr. Flako Tracy MD Work Phone: 6(118)603-844756 [place] [address] 06-02-2024 07:08-0400 Systolic blood pressure 160 mm[Hg] Dr. Flako Tracy MD Work Phone: 2(135)796-298856 [place] [address] 06-02-2024 04:41-0400 Body height 162.[address] Flako Tracy MD Work Phone: 1(823)053-953656 [place] [address] 06-02-2024 04:41-0400 Body mass index (BMI) [Ratio] 34.7 kg/m2 Dr. Flako Tracy MD Work Phone: 4(625)895-168056 [place] [address] 06-02-2024 04:41-0400 Body weight 91.[address] Flako Tracy MD Work Phone: 9(185)621-828156 [place] [address] 05-30-2024 14:10-0400 Body temperature 98.2 [degF] Dr. Flako Tracy MD Work Phone: 4(366)171-538556 [place] [address] 05-30-2024 14:10-0400 Diastolic blood pressure 52 mm[Hg] Dr. Flako Tracy MD Work Phone: 7(282)741-054956 [place] [address] 05-30-2024 14:10-0400 Heart rate 77 /min Dr. Flako Tracy MD Work Phone: [facility] 05-30-2024 14:10-0400 Respiratory rate 19 /min Dr. Flako Tracy MD Work Phone: [facility] 05-30-2024 14:10-0400 SaO2% (BldA) [Mass fraction] 98 % Dr. Flako Tracy MD Work Phone: [facility] 05-30-2024 14:10-0400 Systolic blood pressure 141 mm[Hg] Dr. Flako Tracy MD Work Phone: 8(883)343-650039 [place] [address] 05-30-2024 11:10-0400 Body mass index (BMI) [Ratio] 35 kg/m2 Dr. Flako Tracy MD Work Phone: [facility] 05-30-2024 11:10-0400 Body weight 92.[address] Flako Tracy MD Work Phone: [facility] 05-30-2024 10:47-0400 Body height 162.[address] Flako Tracy MD Work Phone: [facility] 05-22-2024 13:16-0400 Body mass index (BMI) [Ratio] 35.97 kg/m2 Otoniel King SILK SCREEN CUTTER.MORTICIAN INVESTIGATOR Work Phone: [facility] 05-22-2024 13:16-0400 Body weight 92.08 kg Otonielmechelle Waldenil SILK SCREEN CUTTER.MORTICIAN INVESTIGATOR Work Phone: [facility] 05-22-2024 13:16-0400 Diastolic blood pressure 77 mm[Hg] Otoniel Christine SILK SCREEN CUTTER.MORTICIAN INVESTIGATOR Work Phone: [facility] 05-22-2024 13:16-0400 Heart rate 72 /min Otoniel Christine SILK SCREEN CUTTER.MORTICIAN INVESTIGATOR Work Phone: [facility] 05-22-2024 13:16-0400 Respiratory rate 16 /min Otoniel Christine SILK SCREEN CUTTER.MORTICIAN INVESTIGATOR Work Phone: [facility] 05-22-2024 13:16-0400 SaO2% (BldA) [Mass fraction] 96 % Otoniel King SILK SCREEN CUTTER.MORTICIAN INVESTIGATOR Work Phone: [facility] 05-22-2024 13:16-0400 Systolic blood pressure 124 mm[Hg] Otoniel King SILK SCREEN CUTTER.MORTICIAN INVESTIGATOR Work Phone: [facility] 05-17-2024 14:00-0400 Diastolic blood pressure 77 mm[Hg] Dr. Flako Tracy MD Work Phone: 0(675)753-734541 [address] 05-17-2024 14:00-0400 Heart rate 133 /min Dr. Flako Tracy MD Work Phone: 9(493)915-778656 [place] [address] 05-17-2024 14:00-0400 Systolic blood pressure 153 mm[Hg] Dr. Flako Tracy MD Work Phone: 3(763)050-228256 [place] [address] 05-17-2024 13:57-0400 SaO2% (BldA) [Mass fraction] 97 % Dr. Flako Tracy MD Work Phone: 5(287)437-037839 [place] [address] 05-17-2024 08:55-0400 Body temperature 98.5 [degF] Dr. Flako Tracy MD Work Phone: 2(590)447-784756 [place] [address] 05-17-2024 08:55-0400 Respiratory rate 20 /min Dr. Flako Tracy MD Work Phone: 7(834)010-707556 [place] [address] 05-17-2024 06:00-0400 Body mass index (BMI) [Ratio] 36 kg/m2 Dr. Flako Tracy MD Work Phone: 6(861)066-540639 [place] [address] 05-17-2024 06:00-0400 Body weight 95.[address] Flako Tracy MD Work Phone: 9(068)892-077256 [place] [address] 05-16-2024 14:00-0400 Body height 162.[address] Flako Tracy MD Work Phone: 1(840)967-773156 [place] [address] 05-15-2024 22:00-0400 Diastolic blood pressure 66 mm[Hg] Dr. Flako Tracy MD Work Phone: 1(479)625-349139 [place] [address] 05-15-2024 22:00-0400 Heart rate 77 /min Dr. Flako Tracy MD Work Phone: 1(499)014-796656 [place] [address] 05-15-2024 22:00-0400 Respiratory rate 18 /min Dr. Flako Tracy MD Work Phone: 6(037)144-434256 [place] [address] 05-15-2024 22:00-0400 SaO2% (BldA) [Mass fraction] 94 % Dr. Flako Tracy MD Work Phone: 4(242)902-609556 [place] [address] 05-15-2024 22:00-0400 Systolic blood pressure 145 mm[Hg] Dr. Flako Tracy MD Work Phone: 3(906)832-877156 [place] [address] 05-15-2024 20:55-0400 Body temperature 98.4 [degF] Dr. Flako Tracy MD Work Phone: 4(431)719-112256 [place] [address] 05-15-2024 16:48-0400 Body height 162.[address] Flako Tracy MD Work Phone: 9(282)891-789256 [place] [address] 05-15-2024 16:48-0400 Body mass index (BMI) [Ratio] 35 kg/m2 Dr. Flako Tracy MD Work Phone: 0(275)104-292956 [place] [address] 05-15-2024 16:48-0400 Body weight 92.[address] Flako Tracy MD Work Phone: 0(646)777-980356 [place] [address] 05-14-2024 14:00-0400 Body temperature 99.1 [degF] Dr. Flako Tracy MD Work Phone: 2(579)612-879756 [place] [address] 05-14-2024 14:00-0400 Diastolic blood pressure 70 mm[Hg] Dr. Flako Tracy MD Work Phone: 1(630)759-091556 [place] [address] 05-14-2024 14:00-0400 Heart rate 66 /min Dr. Flako Tracy MD Work Phone: 3(884)589-777956 [place] [address] 05-14-2024 14:00-0400 Respiratory rate 12 /min Dr. Flako Tracy MD Work Phone: 0(560)367-206056 [place] [address] 05-14-2024 14:00-0400 SaO2% (BldA) [Mass fraction] 100 % Dr. Flako Tracy MD Work Phone: 8(435)200-411956 [place] [address] 05-14-2024 14:00-0400 Systolic blood pressure 145 mm[Hg] Dr. Flako Tracy MD Work Phone: 8(447)308-619756 [place] [address] 05-13-2024 23:42-0400 Body height 162.[address] Flako Tracy MD Work Phone: 8(386)202-233256 [place] [address] 05-13-2024 23:42-0400 Body mass index (BMI) [Ratio] 36.7 kg/m2 Dr. Flako Tracy MD Work Phone: 0(720)273-273156 [place] [address] 05-13-2024 23:42-0400 Body weight [address] Flako Tracy MD Work Phone: 6(513)636-903156 [place] [address] 04-18-2024 13:47-0500 Body mass index (BMI) [Ratio] 35 kg/m2 Dr. Flako Tracy MD Work Phone: 7(342)496-891756 [place] [address] 04-18-2024 13:47-0500 Body weight 92.[address] Flako Tracy MD Work Phone: 5(455)511-555856 [place] [address] 04-18-2024 13:47-0500 Diastolic blood pressure 78 mm[Hg] Dr. Flako Tracy MD Work Phone: 7(463)648-092556 [place] [address] 04-18-2024 13:47-0500 Heart rate 61 /min Dr. Flako Tracy MD Work Phone: 6(547)218-318056 [place] [address] 04-18-2024 13:47-0500 Respiratory rate 18 /min Dr. Flako Tracy MD Work Phone: 4(142)092-527256 [place] [address] 04-18-2024 13:47-0500 SaO2% (BldA) [Mass fraction] 95 % Dr. Flako Tracy MD Work Phone: 2(624)551-654056 [place] [address] 04-18-2024 13:47-0500 Systolic blood pressure 130 mm[Hg] Dr. Flako Tracy MD Work Phone: [facility] 02-16-2024 11:06-0500 Body height 160 cm Georgieroland Stallworth SILK SCREEN CUTTER.MORTICIAN INVESTIGATOR Work Phone: [facility] 02-16-2024 11:06-0500 Body mass index (BMI) [Ratio] 36.33 kg/m2 Georgieroland Sandovalhof SILK SCREEN CUTTER.MORTICIAN INVESTIGATOR Work Phone: [facility] 02-16-2024 11:06-0500 Body weight 93 kg Georgie Sandovalhovirgilio SILK SCREEN CUTTER.MORTICIAN INVESTIGATOR Work Phone: [facility] 02-16-2024 11:06-0500 Diastolic blood pressure 64 mm[Hg] Georgie Sandovalhof SILK SCREEN CUTTER.MORTICIAN INVESTIGATOR Work Phone: [facility] 02-16-2024 11:06-0500 Heart rate 60 /min Georgie Sandovalhof SILK SCREEN CUTTER.MORTICIAN INVESTIGATOR Work Phone: [facility] 02-16-2024 11:06-0500 Respiratory rate 16 /min Georgie Sandovalhof SILK SCREEN CUTTER.MORTICIAN INVESTIGATOR Work Phone: [facility] 02-16-2024 11:06-0500 SaO2% (BldA) [Mass fraction] 98 % Georgie Franklinf SILK SCREEN CUTTER.MORTICIAN INVESTIGATOR Work Phone: [facility] 02-16-2024 11:06-0500 Systolic blood pressure 130 mm[Hg] Georgie Sandovalhof SILK SCREEN CUTTER.MORTICIAN INVESTIGATOR Work Phone: [facility] 11-24-2023 15:36-0400 Body mass index (BMI) [Ratio] 34.16 kg/m2 Areli Suppan SILK SCREEN CUTTER.MORTICIAN INVESTIGATOR Work Phone: [facility] 11-24-2023 15:36-0400 Body weight 90.27 kg Areli Suppan SILK SCREEN CUTTER.MORTICIAN INVESTIGATOR Work Phone: [facility] 11-24-2023 15:36-0400 Diastolic blood pressure 68 mm[Hg] Areli Suppan SILK SCREEN CUTTER.MORTICIAN INVESTIGATOR Work Phone: [facility] 11-24-2023 15:36-0400 Heart rate 67 /min Areli Suppan SILK SCREEN CUTTER.MORTICIAN INVESTIGATOR Work Phone: [facility] 11-24-2023 15:36-0400 Respiratory rate 16 /min Areli Suppan SILK SCREEN CUTTER.MORTICIAN INVESTIGATOR Work Phone: [facility] 11-24-2023 15:36-0400 SaO2% (BldA) [Mass fraction] 97 % Areli Suppan SILK SCREEN CUTTER.MORTICIAN INVESTIGATOR Work Phone: [facility] 11-24-2023 15:36-0400 Systolic blood pressure 124 mm[Hg] Areli Suppan SILK SCREEN CUTTER.MORTICIAN INVESTIGATOR Work Phone: [facility] 10-21-2023 13:11-0400 Body mass index (BMI) [Ratio] 34.5 kg/m2 Areli Suppan SILK SCREEN CUTTER.MORTICIAN INVESTIGATOR Work Phone: [facility] 10-21-2023 13:11-0400 Body weight 91.17 kg Areli Suppan SILK SCREEN CUTTER.MORTICIAN INVESTIGATOR Work Phone: [facility] 10-21-2023 13:11-0400 Diastolic blood pressure 68 mm[Hg] Areli Suppan SILK SCREEN CUTTER.MORTICIAN INVESTIGATOR Work Phone: [facility] 10-21-2023 13:11-0400 Heart rate 68 /min Areli Suppan SILK SCREEN CUTTER.MORTICIAN INVESTIGATOR Work Phone: [facility] 10-21-2023 13:11-0400 Respiratory rate 16 /min Areli Suppan SILK SCREEN CUTTER.MORTICIAN INVESTIGATOR Work Phone: [facility] 10-21-2023 13:11-0400 SaO2% (BldA) [Mass fraction] 98 % Areli Suppan SILK SCREEN CUTTER.MORTICIAN INVESTIGATOR Work Phone: [facility] 10-21-2023 13:11-0400 Systolic blood pressure 130 mm[Hg] Areli Suppan SILK SCREEN CUTTER.MORTICIAN INVESTIGATOR Work Phone: [facility] 10-07-2023 14:10-0400 Body temperature 98.49 [degF] Areli Suppan SILK SCREEN CUTTER.MORTICIAN INVESTIGATOR Work Phone: [facility] 10-07-2023 14:10-0400 Diastolic blood pressure 70 mm[Hg] Areli Suppan SILK SCREEN CUTTER.MORTICIAN INVESTIGATOR Work Phone: [facility] 10-07-2023 14:10-0400 Heart rate 68 /min Areli Suppan SILK SCREEN CUTTER.MORTICIAN INVESTIGATOR Work Phone: [facility] 10-07-2023 14:10-0400 SaO2% (BldA) [Mass fraction] 96 % Areli Suppan SILK SCREEN CUTTER.MORTICIAN INVESTIGATOR Work Phone: [facility] 10-07-2023 14:10-0400 Systolic blood pressure 132 mm[Hg] Areli Suppan SILK SCREEN CUTTER.MORTICIAN INVESTIGATOR Work Phone: [facility] 08-24-2023 16:26-0400 Body mass index (BMI) [Ratio] 34.7 kg/m2 Fermin Weathers MD Work Phone: [facility] 08-24-2023 16:26-0400 Body temperature 98.91 [degF] Fermin Weathers MD Work Phone: [facility] 08-24-2023 16:26-0400 Body weight 91.7 kg Fermin Weathers MD Work Phone: [facility] 08-24-2023 16:26-0400 Diastolic blood pressure 66 mm[Hg] Fermin Weathers MD Work Phone: [facility] 08-24-2023 16:26-0400 Heart rate 70 /min Fermin Weathers MD Work Phone: [facility] 08-24-2023 16:26-0400 Respiratory rate 21 /min Fermin Weathers MD Work Phone: [facility] 08-24-2023 16:26-0400 SaO2% (BldA) [Mass fraction] 95 % Fermin Weathers MD Work Phone: [facility] 08-24-2023 16:26-0400 Systolic blood pressure 140 mm[Hg] Fermin Weathers MD Work Phone: [facility] 07-16-2023 01:31-0400 Body temperature 97.8 [degF] Dr. Flako Tracy Work Phone: 4(671)179-448941 [address] 07-16-2023 01:31-0400 Diastolic blood pressure 64 mm[Hg] Dr. Flako Tracy Work Phone: 4(127)213-225941 [address] 07-16-2023 01:31-0400 Heart rate 76 /min Dr. Flako Tracy Work Phone: 2(745)415-113139 [place] [address] 07-16-2023 01:31-0400 Respiratory rate 19 /min Dr. Flako Tracy Work Phone: 7(560)480-236356 [place] [address] 07-16-2023 01:31-0400 SaO2% (BldA) [Mass fraction] 100 % Dr. Flako Tracy Work Phone: 6(958)077-407756 [place] [address] 07-16-2023 01:31-0400 Systolic blood pressure 130 mm[Hg] Dr. Flako Tracy Work Phone: 7(336)321-694856 [place] [address] 07-15-2023 23:20-0400 Body mass index (BMI) [Ratio] 34.3 kg/m2 Dr. Flako Tracy Work Phone: 6(473)245-916556 [place] [address] 07-15-2023 23:20-0400 Body weight 90.[address] Flako Tracy Work Phone: 3(684)284-589756 [place] [address] 07-15-2023 23:17-0400 Body height 162.[address] Flako Tracy Work Phone: 3(801)803-141539 [place] [address] 06-15-2023 10:01-0400 Body height 162.[address] Flako Tracy Work Phone: 2(661)416-332856 [place] [address] 06-15-2023 10:01-0400 Body mass index (BMI) [Ratio] 34.3 kg/m2 Dr. Flako Tracy Work Phone: 4(041)127-232156 [place] [address] 06-15-2023 10:01-0400 Body weight 90.[address] Flako Tracy Work Phone: 7(081)006-415256 [place] [address] 06-15-2023 10:01-0400 Diastolic blood pressure 76 mm[Hg] Dr. Flako Tracy Work Phone: 2(894)067-079056 [place] [address] 06-15-2023 10:01-0400 Heart rate 61 /min Dr. Flako Tracy Work Phone: 1(688)645-531456 [place] [address] 06-15-2023 10:01-0400 Respiratory rate 18 /min Dr. Flako Tracy Work Phone: 4(676)249-906756 [place] [address] 06-15-2023 10:01-0400 SaO2% (BldA) [Mass fraction] 93 % Dr. Flako Tracy Work Phone: 4(368)626-500556 [place] [address] 06-15-2023 10:01-0400 Systolic blood pressure 131 mm[Hg] Dr. Flako Tracy Work Phone: 7(540)589-432556 [place] [address] 03-14-2023 09:06-0500 Body height 162.[address] Flako Tracy Work Phone: 6(025)009-756856 [place] [address] 03-14-2023 09:06-0500 Body mass index (BMI) [Ratio] 34 kg/m2 Dr. Flako Tracy Work Phone: 7(208)261-808756 [place] [address] 03-14-2023 09:06-0500 Body weight 89.[address] Flako Tracy Work Phone: 9(963)511-657356 [place] [address] 03-14-2023 09:06-0500 Diastolic blood pressure 75 mm[Hg] Dr. Flako Tracy Work Phone: 8(236)181-664256 [place] [address] 03-14-2023 09:06-0500 Heart rate 68 /min Dr. Flako Tracy Work Phone: 3(864)285-304856 [place] [address] 03-14-2023 09:06-0500 Respiratory rate 18 /min Dr. Flako Tracy Work Phone: 4(076)599-555056 [place] [address] 03-14-2023 09:06-0500 SaO2% (BldA) [Mass fraction] 96 % Dr. Flako Tracy Work Phone: 9(492)779-127756 [place] [address] 03-14-2023 09:06-0500 Systolic blood pressure 145 mm[Hg] Dr. Flako Tracy Work Phone: 0(539)007-027256 [place] [address] 01-28-2023 00:12-0500 Body height 162.[address] Flako Tracy Work Phone: 2(166)281-881656 [place] [address] 01-28-2023 00:12-0500 Body mass index (BMI) [Ratio] 33.9 kg/m2 Dr. Flako Tracy Work Phone: 2(657)640-712956 [place] [address] 01-28-2023 00:12-0500 Body temperature 97.6 [degF] Dr. Flako Tracy Work Phone: 6(330)896-780756 [place] [address] 01-28-2023 00:12-0500 Body weight 89.[address] Flako Tracy Work Phone: 3(846)020-946556 [place] [address] 01-28-2023 00:12-0500 Diastolic blood pressure 90 mm[Hg] Dr. Flako Tracy Work Phone: 7(717)565-546556 [place] [address] 01-28-2023 00:12-0500 Heart rate 100 /min Dr. Flako Tracy Work Phone: 5(472)866-487156 [place] [address] 01-28-2023 00:12-0500 Respiratory rate 18 /min Dr. Flako Tracy Work Phone: 5(426)655-829856 [place] [address] 01-28-2023 00:12-0500 SaO2% (BldA) [Mass fraction] 99 % Dr. Flako Tracy Work Phone: 8(434)258-363356 [place] [address] 01-28-2023 00:12-0500 Systolic blood pressure 187 mm[Hg] Dr. Flako Tracy Work Phone: 3(112)399-565556 [place] [address] 01-22-2023 14:00-0500 Body temperature 97.5 [degF] Dr. Flako Tracy Work Phone: 9(224)750-872756 [place] [address] 01-22-2023 14:00-0500 Diastolic blood pressure 71 mm[Hg] Dr. Flako Tracy Work Phone: 3(104)206-804056 [place] [address] 01-22-2023 14:00-0500 Heart rate 116 /min Dr. Flako Tracy Work Phone: [facility] 01-22-2023 14:00-0500 Respiratory rate 16 /min Dr. Flako Tracy Work Phone: [facility] 01-22-2023 14:00-0500 SaO2% (BldA) [Mass fraction] 97 % Dr. Flako Tracy Work Phone: [facility] 01-22-2023 14:00-0500 Systolic blood pressure 136 mm[Hg] Dr. Flako Tracy Work Phone: [facility] 01-21-2023 21:04-0500 Body mass index (BMI) [Ratio] 35.2 kg/m2 Dr. Flako Tracy Work Phone: [facility] 01-21-2023 21:04-0500 Body weight 93.[address] Flako Tracy Work Phone: [facility] 01-21-2023 09:54-0500 Body weight 89.13 kg Flako Tracy MD Work Phone: [facility] 01-21-2023 09:54-0500 Diastolic blood pressure 78 mm[Hg] Flako Tracy MD Work Phone: [facility] 01-21-2023 09:54-0500 Heart rate 115 /min Flako Tracy MD Work Phone: [facility] 01-21-2023 09:54-0500 Respiratory rate 16 /min Flako Tracy MD Work Phone: [facility] 01-21-2023 09:54-0500 SaO2% (BldA) [Mass fraction] 96 % Flako Tracy MD Work Phone: [facility] 01-21-2023 09:54-0500 Systolic blood pressure 144 mm[Hg] Flako Tracy MD Work Phone: [facility] 01-17-2023 14:43-0500 Body height 162.6 cm Pam Ocampo MD Work Phone: [facility] 01-17-2023 14:43-0500 Body temperature 97.81 [degF] Pam Ocampo MD Work Phone: [facility] 01-17-2023 14:43-0500 Body weight 90.9 kg Pam Ocampo MD Work Phone: [facility] 01-17-2023 14:43-0500 Diastolic blood pressure 72 mm[Hg] Pam Ocampo MD Work Phone: [facility] 01-17-2023 14:43-0500 Heart rate 97 /min Pam Ocampo MD Work Phone: [facility] 01-17-2023 14:43-0500 SaO2% (BldA) [Mass fraction] 98 % Pam Ocampo MD Work Phone: [facility] 01-17-2023 14:43-0500 Systolic blood pressure 128 mm[Hg] Pam Ocampo MD Work Phone: [facility] 01-17-2023 11:30-0500 Body height 162.[address] Flako Tracy Work Phone: [facility] 01-17-2023 11:30-0500 Body mass index (BMI) [Ratio] 30.2 kg/m2 Dr. Flako Tracy Work Phone: [facility] 01-17-2023 11:30-0500 Body weight 79.[address] Flako Tracy Work Phone: [facility] 01-17-2023 11:30-0500 Diastolic blood pressure 86 mm[Hg] Dr. Flako Tracy Work Phone: [facility] 01-17-2023 11:30-0500 Heart rate 75 /min Dr. Flako Tracy Work Phone: [facility] 01-17-2023 11:30-0500 Respiratory rate 18 /min Dr. Flako Tracy Work Phone: [facility] 01-17-2023 11:30-0500 SaO2% (BldA) [Mass fraction] 97 % Dr. Flako Tracy Work Phone: 6(128)867-291439 [place] [address] 01-17-2023 11:30-0500 Systolic blood pressure 149 mm[Hg] Dr. Flako Tracy Work Phone: 1(926)649-977441 [address] 01-15-2023 15:00-0500 Body temperature 98 [degF] Dr. Flako Tracy Work Phone: 5(325)520-508756 [place] [address] 01-15-2023 15:00-0500 Diastolic blood pressure 51 mm[Hg] Dr. Flako Tracy Work Phone: 3(644)731-049156 [place] [address] 01-15-2023 15:00-0500 Heart rate 74 /min Dr. Flako Tracy Work Phone: 0(180)066-911556 [place] [address] 01-15-2023 15:00-0500 Respiratory rate 16 /min Dr. Flako Tracy Work Phone: 7(476)210-329556 [place] [address] 01-15-2023 15:00-0500 SaO2% (BldA) [Mass fraction] 97 % Dr. Flako Tracy Work Phone: 0(857)421-435356 [place] [address] 01-15-2023 15:00-0500 Systolic blood pressure 120 mm[Hg] Dr. Flako Tracy Work Phone: 8(168)200-535456 [place] [address] 01-15-2023 06:00-0500 Body mass index (BMI) [Ratio] 34 kg/m2 Dr. Flako Tracy Work Phone: 8(525)756-118056 [place] [address] 01-15-2023 06:00-0500 Body weight [address] Flako Tracy Work Phone: 0(354)438-803856 [place] [address] 01-14-2023 23:40-0500 Body height 162.[address] Flako Tracy Work Phone: 3(092)469-731956 [place] [address] 01-14-2023 23:23-0500 Diastolic blood pressure 74 mm[Hg] Dr. Flako Tracy Work Phone: 9(391)055-016139 [place] [address] 01-14-2023 23:23-0500 Heart rate 74 /min Dr. Flako Tracy Work Phone: [facility] 01-14-2023 23:23-0500 Respiratory rate 15 /min Dr. Flako Tracy Work Phone: [facility] 01-14-2023 23:23-0500 SaO2% (BldA) [Mass fraction] 97 % Dr. Flako Tracy Work Phone: [facility] 01-14-2023 23:23-0500 Systolic blood pressure 139 mm[Hg] Dr. Flako Tracy Work Phone: [facility] 01-14-2023 15:42-0500 Body height 162.[address] Flako Tracy Work Phone: [facility] 01-14-2023 15:42-0500 Body mass index (BMI) [Ratio] 34.7 kg/m2 Dr. Flako Tracy Work Phone: [facility] 01-14-2023 15:42-0500 Body temperature 96.8 [degF] Dr. Flako Tracy Work Phone: [facility] 01-14-2023 15:42-0500 Body weight 91.[address] Flako Tracy Work Phone: [facility] 01-05-2023 08:26-0400 Body weight 89.36 kg Georgie Stallworth APRN.MORTICIAN INVESTIGATOR Work Phone: [facility] 01-05-2023 08:26-0400 Diastolic blood pressure 82 mm[Hg] Georgie Stallworth APRN.MORTICIAN INVESTIGATOR Work Phone: [facility] 01-05-2023 08:26-0400 Heart rate 61 /min Georgie Stallworth APRN.MORTICIAN INVESTIGATOR Work Phone: [facility] 01-05-2023 08:26-0400 Respiratory rate 16 /min Georgie Stallworth APRN.MORTICIAN INVESTIGATOR Work Phone: [facility] 01-05-2023 08:26-0400 SaO2% (BldA) [Mass fraction] 99 % Georgie Stallworth APRN.MORTICIAN INVESTIGATOR Work Phone: [facility] 01-05-2023 08:26-0400 Systolic blood pressure 138 mm[Hg] Georgie Stallworth APRN.MORTICIAN INVESTIGATOR Work Phone: [facility] 01-01-2023 11:30-0400 Body height 162.[address] Flako Tracy Work Phone: [facility] 01-01-2023 11:30-0400 Body mass index (BMI) [Ratio] 34 kg/m2 Dr. Flako Tracy Work Phone: [facility] 01-01-2023 11:30-0400 Body temperature 96.6 [degF] Dr. Flako Tracy Work Phone: [facility] 01-01-2023 11:30-0400 Body weight 90.[address] Flako Tracy Work Phone: [facility] 01-01-2023 11:30-0400 Diastolic blood pressure 73 mm[Hg] Dr. Flako Tracy Work Phone: [facility] 01-01-2023 11:30-0400 Heart rate 69 /min Dr. Flako Tracy Work Phone: [facility] 01-01-2023 11:30-0400 Respiratory rate 16 /min Dr. Flako Tracy Work Phone: [facility] 01-01-2023 11:30-0400 SaO2% (BldA) [Mass fraction] 99 % Dr. Flako Tracy Work Phone: [facility] 01-01-2023 11:30-0400 Systolic blood pressure 147 mm[Hg] Dr. Flako Tracy Work Phone: [facility] 11-25-2022 10:28-0400 Body temperature 100.09 [degF] Jessica Lara APRN.MORTICIAN INVESTIGATOR Work Phone: [facility] 11-25-2022 10:28-0400 Body weight 89.18 kg Jessica Lara SILK SCREEN CUTTER.MORTICIAN INVESTIGATOR Work Phone: [facility] 11-25-2022 10:28-0400 Diastolic blood pressure 82 mm[Hg] Jessica Marco SILK SCREEN CUTTER.MORTICIAN INVESTIGATOR Work Phone: [facility] 11-25-2022 10:28-0400 Heart rate 76 /min Jessica Marco SILK SCREEN CUTTER.MORTICIAN INVESTIGATOR Work Phone: [facility] 11-25-2022 10:28-0400 Respiratory rate 18 /min Jessica Vicentek SILK SCREEN CUTTER.MORTICIAN INVESTIGATOR Work Phone: [facility] 11-25-2022 10:28-0400 SaO2% (BldA) [Mass fraction] 96 % Jessica Vicentek SILK SCREEN CUTTER.MORTICIAN INVESTIGATOR Work Phone: [facility] 11-25-2022 10:28-0400 Systolic blood pressure 128 mm[Hg] Jessica Marco SILK SCREEN CUTTER.MORTICIAN INVESTIGATOR Work Phone: [facility] 11-19-2022 08:40-0400 Body weight 89.36 kg Georgie Franklinf SILK SCREEN CUTTER.MORTICIAN INVESTIGATOR Work Phone: [facility] 11-19-2022 08:40-0400 Diastolic blood pressure 68 mm[Hg] Georgie Jaimehof SILK SCREEN CUTTER.MORTICIAN INVESTIGATOR Work Phone: [facility] 11-19-2022 08:40-0400 Heart rate 61 /min Georgie Sandovalhof SILK SCREEN CUTTER.MORTICIAN INVESTIGATOR Work Phone: [facility] 11-19-2022 08:40-0400 Respiratory rate 16 /min Georgie Sandovalhof SILK SCREEN CUTTER.MORTICIAN INVESTIGATOR Work Phone: [facility] 11-19-2022 08:40-0400 SaO2% (BldA) [Mass fraction] 97 % Georgie Tannhof SILK SCREEN CUTTER.MORTICIAN INVESTIGATOR Work Phone: [facility] 11-19-2022 08:40-0400 Systolic blood pressure 108 mm[Hg] Georgie Tannhof SILK SCREEN CUTTER.MORTICIAN INVESTIGATOR Work Phone: [facility] 11-15-2022 15:00-0400 Body temperature 98.2 [degF] [facility] SILK SCREEN CUTTER.MORTICIAN INVESTIGATOR Work Phone: [facility] 11-15-2022 15:00-0400 Body weight 90.72 kg [facility] SILK SCREEN CUTTER.MORTICIAN INVESTIGATOR Work Phone: [facility] 11-15-2022 15:00-0400 Diastolic blood pressure 76 mm[Hg] [facility] SILK SCREEN CUTTER.MORTICIAN INVESTIGATOR Work Phone: [facility] 11-15-2022 15:00-0400 Heart rate 70 /min [facility] SILK SCREEN CUTTER.MORTICIAN INVESTIGATOR Work Phone: [facility] 11-15-2022 15:00-0400 Respiratory rate 16 /min [facility] SILK SCREEN CUTTER.MORTICIAN INVESTIGATOR Work Phone: [facility] 11-15-2022 15:00-0400 SaO2% (BldA) [Mass fraction] 96 % [facility] SILK SCREEN CUTTER.MORTICIAN INVESTIGATOR Work Phone: [facility] 11-15-2022 15:00-0400 Systolic blood pressure 122 mm[Hg] [facility] SILK SCREEN CUTTER.MORTICIAN INVESTIGATOR Work Phone: [facility] 10-15-2022 12:57-0400 Body mass index (BMI) [Ratio] 34.4 kg/m2 Dr. Flako Tracy Work Phone: [facility] 10-15-2022 12:57-0400 Body weight 91.[address] Flako Tracy Work Phone: [facility] 10-15-2022 12:57-0400 Diastolic blood pressure 83 mm[Hg] Dr. Flako Tracy Work Phone: [facility] 10-15-2022 12:57-0400 Heart rate 68 /min Dr. Flako Tracy Work Phone: [facility] 10-15-2022 12:57-0400 Respiratory rate 18 /min Dr. Flako Tracy Work Phone: [facility] 10-15-2022 12:57-0400 Systolic blood pressure 160 mm[Hg] Dr. Flako Tracy Work Phone: [facility] 10-13-2022 19:39-0400 Diastolic blood pressure 66 mm[Hg] [facility] 10-13-2022 19:39-0400 Heart rate 64 /min [facility] 10-13-2022 19:39-0400 Respiratory rate 15 /min [facility] 10-13-2022 19:39-0400 SaO2% (BldA) [Mass fraction] 97 % [facility] 10-13-2022 19:39-0400 Systolic blood pressure 146 mm[Hg] [facility] 10-13-2022 16:14-0400 Body height 162.56 cm [facility] 10-13-2022 16:14-0400 Body mass index (BMI) [Ratio] 33.7 kg/m2 [facility] 10-13-2022 16:14-0400 Body temperature 97.6 [degF] [facility] 10-13-2022 16:14-0400 Body weight 89.17 kg [facility] 08-14-2022 23:13-0400 Diastolic blood pressure 71 mm[Hg] [facility] 08-14-2022 23:13-0400 Heart rate 62 /min [facility] 08-14-2022 23:13-0400 Respiratory rate 17 /min [facility] 08-14-2022 23:13-0400 Systolic blood pressure 115 mm[Hg] [facility] 08-14-2022 21:56-0400 SaO2% (BldA) [Mass fraction] 96 % [facility] 08-14-2022 21:44-0400 Body mass index (BMI) [Ratio] 34.7 kg/m2 [facility] 08-14-2022 21:44-0400 Body temperature 97.1 [degF] [facility] 08-14-2022 21:44-0400 Body weight 91.71 kg [facility] 08-10-2022 09:58-0400 Body weight 91.58 kg Flako Tracy MD Work Phone: [facility] 08-10-2022 09:58-0400 Diastolic blood pressure 70 mm[Hg] Flako Tracy MD Work Phone: [facility] 08-10-2022 09:58-0400 Heart rate 74 /min Flako Tracy MD Work Phone: [facility] 08-10-2022 09:58-0400 Respiratory rate 16 /min Flako Tracy MD Work Phone: [facility] 08-10-2022 09:58-0400 Systolic blood pressure 118 mm[Hg] Flako Tracy MD Work Phone: [facility] 07-12-2022 14:24-0400 Body temperature 98.49 [degF] Arielle Lara APRN.MORTICIAN INVESTIGATOR Work Phone: [facility] 07-12-2022 14:24-0400 Body weight 91.17 kg Arielle Lara APRN.MORTICIAN INVESTIGATOR Work Phone: [facility] 07-12-2022 14:24-0400 Diastolic blood pressure 86 mm[Hg] Arielle Lara APRN.MORTICIAN INVESTIGATOR Work Phone: [facility] 07-12-2022 14:24-0400 Heart rate 76 /min Arielle Lara APRN.MORTICIAN INVESTIGATOR Work Phone: [facility] 07-12-2022 14:24-0400 Respiratory rate 18 /min Arielle Lara APRN.MORTICIAN INVESTIGATOR Work Phone: [facility] 07-12-2022 14:24-0400 SaO2% (BldA) [Mass fraction] 93 % Arielle Lara APRN.MORTICIAN INVESTIGATOR Work Phone: [facility] 07-12-2022 14:24-0400 Systolic blood pressure 140 mm[Hg] Arielle Lara APRN.MORTICIAN INVESTIGATOR Work Phone: [facility] 04-05-2022 18:22-0500 Body temperature 97.81 [degF] Tiffanie Reyes PA-C Work Phone: [facility] 04-05-2022 18:22-0500 Body weight 89.81 kg Tiffanie Athy PA-C Work Phone: [facility] 04-05-2022 18:22-0500 Diastolic blood pressure 80 mm[Hg] Tiffanie Athy PA-C Work Phone: [facility] 04-05-2022 18:22-0500 Heart rate 72 /min Tiffanie Athy PA-C Work Phone: [facility] 04-05-2022 18:22-0500 Respiratory rate 16 /min Tiffanie Athy PA-C Work Phone: [facility] 04-05-2022 18:22-0500 SaO2% (BldA) [Mass fraction] 98 % Tiffanie Athy PA-C Work Phone: [facility] 04-05-2022 18:22-0500 Systolic blood pressure 132 mm[Hg] Tiffanie Athy PA-C Work Phone: [facility] 01-31-2019 11:50-0500 BMI (Body Mass Index) 35.53 kg/m2 [facility] 01-31-2019 11:50-0500 Body weight 93.89 kg [facility] 01-31-2019 11:50-0500 BP Diastolic 80 mm[Hg] [facility] 01-31-2019 11:50-0500 BP Systolic 137 mm[Hg] [facility] 01-31-2019 11:50-0500 Height 162.6 cm [facility] 01-31-2019 11:50-0500 Pulse (Heart Rate) 65 /min [facility] 01-31-2019 11:50-0500 Pulse Oximetry 96 % [facility] 08-02-2018 11:38-0400 BMI (Body Mass Index) 35.45 kg/m2 [facility] 08-02-2018 11:38-0400 BP Diastolic 81 mm[Hg] [facility] 08-02-2018 11:38-0400 BP Systolic 125 mm[Hg] [facility] 08-02-2018 11:38-0400 Height 162.6 cm [facility] 08-02-2018 11:38-0400 Pulse (Heart Rate) 64 /min [facility] 08-02-2018 11:38-0400 Pulse Oximetry 94 % [facility] 08-02-2018 11:38-0400 Weight 93.67 kg [facility] 04-06-2017 12:53-0500 BMI (Body Mass Index) 34.84 kg/m2 [facility] Work Phone: 04-06-2017 12:53-0500 BP Diastolic 78 mm[Hg] [facility] Work Phone: 04-06-2017 12:53-0500 BP Systolic 117 mm[Hg] [facility] Work Phone: 04-06-2017 12:53-0500 Height 162.6 cm [facility] Work Phone: 04-06-2017 12:53-0500 Pulse (Heart Rate) 74 /min [facility] Work Phone: 04-06-2017 12:53-0500 Pulse Oximetry 96 % [facility] Work Phone: 04-06-2017 12:53-0500 Weight 92.08 kg [facility] Work Phone: 10-06-2016 13:23-0400 BMI (Body Mass Index) 34.6 kg/m2 [facility] Work Phone: 10-06-2016 13:23-0400 BP Diastolic 73 mm[Hg] [facility] Work Phone: 10-06-2016 13:23-0400 BP Systolic 117 mm[Hg] [facility] Work Phone: 10-06-2016 13:23-0400 Height 162.6 cm Vic Christie [facility] Work Phone: 10-06-2016 13:-0400 Pulse (Heart Rate) 56 /min Vic Christie [facility] Work Phone: 10-06-2016 13:040 Pulse Oximetry 95 % Vic Christie [facility] Work Phone: 10-06-2016 13:040 Weight 91.44 kg Vic Christie [facility] Work Phone: Encounters Encounter Date Encounter Type Care Provider Facility Start: 01-11-2025 ambulatory Kay SANDOVAL Facility:[facility] Start: 01-10-2025 End: 01-10-2025 ambulatory [facility] Facility:[facility] Start: 12-27-2024 End: 12-27-2024 ambulatory FLAKO TRACY Facility:[facility] Start: 12-25-2024 End: 12-25-2024 ambulatory FLAKO TRACY Facility:[facility] Start: 12-10-2024 End: 12-10-[address] Flako Tracy MD Work Phone: -[facility] Start: 12-10-2024 End: 12-10-[address] Low Patino MD -[facility] Work Phone: Start: 11-30-2024 End: 12-04-[address] Flako Tracy MD Work Phone: -Laboratory Start: 11-30-2024 End: 12-04-2024 Discharged Recurring Kay Cavazos PA -Laboratory Work Phone: Start: 11-21-2024 End: 11-21-2024 ambulatory Flako Tracy MD Work [facility]: [facility] [place] Start: 11-21-2024 End: 11-21-2024 Patient encounter procedure Flako Tracy MD [facility] [place] Comment on above: Population Health Na vigation Outreach ([employer] [place]/) Start: 11-16-2024 Non-patient / Non-visit Dr. Hector gramajo MD -[facility] Start: 11-16-2024 End: 11-16-[address] Flako Tracy MD Work Phone: -Cardiovascular Services Start: 11-16-2024 End: 11-16-2024 Patient encounter procedure Kay SANDOVAL -Cardiovascular Services Work Phone: Start: 11-16-2024 End: 11-16-2024 ambulatory Kay SANDOVAL Facility:[facility] Start: 11-09-2024 End: 11-09-2024 Patient encounter procedure Norma Fernández APRN.CNP Work Phone: [facility] [place] Comment on above: Burning with urinati on (Primary Dx); Urinary tract infection with hematuria, site unspecified Start: 11-09-2024 End: 11-09-2024 ambulatory Flako Tracy MD Work Phone: [facility] [place] Comment on above: Urinary Symptoms Start: 11-02-2024 End: 11-02-2024 Telephone encounter Adria Ansari MD Work Phone: [facility] [place] Comment on above: Patient Question Start: 11-01-2024 ambulatory DARIELA COULTER Facility:[facility] Start: 11-01-2024 End: 11-01-2024 Subsequent hospital visit by physician Chelsi Cobb MD Work Phone: Gastroenterology Comment on above: Hepatic cirrhosis, u nspecified hepatic cirrhosis type, unspecified whether ascites present (HCC) [K74.60] Start: 10-26-2024 End: 10-26-2024 Discharged Recurring Kay Cavazos PA -Laboratory Work Phone: Start: 10-26-2024 End: 10-26-[address] Flako Tracy MD Work Phone: -Laboratory Start: 10-25-2024 End: 10-25-2024 ambulatory Jen Swift RNrepairer auto clocks Start: 10-25-2024 End: 10-26-2024 Telephone encounter Cherelle Melendrez APRN.CNP Work Phone: Pre Anesthesia Comment on above: Preparations For Amberly ai Start: 10-22-2024 End: 10-22-2024 Telephone encounter Cherelle Melendrez APRN.JASEN Work Phone: Pre Anesthesia Start: 10-18-2024 End: 10-18-2024 Refill Flako Tracy MD Work Phone: [facility] Start: 10-17-2024 End: 10-17-2024 [facility]mission [facility] Work Phone: Pre Anesthesia Start: 10-17-2024 End: 10-17-2024 Anesthesia consultation [facility] Work Phone: Pre Anesthesia Comment on above: Holley-Mary syncope (Primary Dx); S/P placement of cardiac pacemaker; Paroxysmal atrial fibrillation (HCC); Hyperlipidemia, unspecified hyperlipidemia type; Gastroesophageal reflux disease without esophagitis; Stage 3a chronic kidney disease (HCC); Right renal mass; Dyslipidemia associated with type 2 diabetes mellitus (HCC); BMI 34.0-34.9,adult; Bilateral carotid artery stenosis; Hypertension, unspecified type; History of DVT (deep vein thrombosis); Acute midline low back pain without sciatica; Anemia, unspecified type Start: 10-17-2024 End: 10-17-2024 ambulatory CHELSI COBB Facility:[facility] Start: 10-17-2024 End: 10-17-2024 Patient encounter procedure Kay Avalos [facility] Work Phone: Start: 10-17-2024 End: 10-17-[address] Flako Tracy MD Work Phone: -[facility] Start: 10-08-2024 End: 10-08-2024 ambulatory DARIELA COULTER Facility:[facility] Start: 10-08-2024 Registered Recurring Kay SANDOVAL -Laboratory Work Phone: Start: 10-01-2024 ambulatory DARIELA COULTER Facility:[facility] Start: 10-01-2024 End: 10-01-2024 Subsequent hospital visit by physician [facility] Work Phone: Radiology Comment on above: Hepatic cirrhosis, u nspecified hepatic cirrhosis type, unspecified whether ascites present (HCC) [K74.60] Start: 09-28-2024 End: 09-28-2024 Follow-up encounter Dariela FIELDC Work Phone: [facility] Start: 09-27-2024 End: 09-27-2024 ambulatory DARIELA COULTER Facility:[facility] Start: 09-26-2024 End: 10-08-2024 Telephone encounter Adria Ansari MD Work Phone: [facility] Comment on above: Orders Start: 09-26-2024 End: 09-26-2024 Office outpatient new 45 minutes Adria Ansari MD Work Phone: [facility] Comment on above: Hepatic cirrhosis, u nspecified hepatic cirrhosis type, unspecified whether ascites present (HCC) (Primary Dx); High serum carbohydrate antigen 19-9 (CA19-9); Encounter for screening colonoscopy; Gastroesophageal reflux disease without esophagitis Start: 09-26-2024 End: 09-26-2024 ambulatory ADRIA ANSARI Facility:[facility] Start: 09-19-2024 End: 09-19-2024 Telephone encounter Adria Ansari MD Work Phone: [facility] Start: 09-12-2024 End: 10-04-2024 Discharged Recurring Kay SANDOVAL -Laboratory Work Phone: Start: 09-12-2024 End: 10-04-[address] Flako Tracy MD Work Phone: -Ultrasound [facility] Start: 09-12-2024 End: 09-12-[address] Maykel Sloan MD -Ultrasound [facility] Work Phone: Start: 09-12-2024 End: 09-12-2024 Kay Cavazos PA -Laboratory Work Phone: Start: 09-12-2024 End: 09-12-2024 ambulatory [facility] Facility:[facility] Start: 09-10-2024 End: 09-10-[address] Flako Tracy MD Work Phone: -[facility] Start: 09-10-2024 End: 09-10-[address] Low Patino MD -[facility] Work Phone: Start: 09-10-2024 End: 09-10-2024 Dr. Low Patino MD -[facility] Work Phone: Start: 08-29-2024 End: 08-31-2024 Refill Flako Tracy MD Work Phone: [facility] Comment on above: Refill Request; Medi cation Question Start: 08-24-2024 End: 08-24-2024 Office outpatient visit 25 minutes Flako Tracy MD Work Phone: [facility] Comment on above: Paroxysmal atrial fi brillation (HCC) (Primary Dx); Stage 3a chronic kidney disease (HCC); Hyperlipidemia, unspecified hyperlipidemia type; Obesity, Class II, BMI 35-39.9; Hypertension, essential; Type 2 diabetes mellitus without complication, without long-term current use of insulin (HCC) Start: 08-24-2024 End: 08-24-2024 ambulatory FLAKO TRACY Facility:[facility] Start: 08-13-2024 End: 10-13-2024 Follow-up encounter Otoniel King APRN.CNP Work Phone: [facility] Start: 08-13-2024 End: 08-13-2024 Discharged Recurring Kay Cavazos PA -Laboratory Work Phone: Start: 08-13-2024 End: 08-13-2024 Kay Cavazos PA -Laboratory Work Phone: Start: 08-13-2024 End: 08-13-[address] Flako Tracy MD Work Phone: -Laboratory Start: 07-13-2024 ambulatory Sofya Herrera Facility:[facility] Start: 07-13-2024 End: 07-13-[address] Flako Trayc MD Work Phone: [facility] Work Phone: Start: 07-13-2024 End: 07-13-[address] Maykel Sloan MD -Ultrasound [facility] Work Phone: Start: 07-13-2024 End: 07-13-2024 Dr. Maykel Sloan MD -Ultrasound, [facility] Work Phone: Start: 07-13-2024 End: 07-13-2024 ambulatory [facility] Facility:[facility] Start: 07-11-2024 End: 07-11-[address] Flako Tracy MD Work Phone: [facility] Work Phone: Start: 07-11-2024 End: 07-11-[address] Maykel Sloan MD -Laboratory Work Phone: Start: 07-11-2024 End: 07-11-2024 Dr. Maykel Sloan MD -Laboratory Work Phone: Start: 07-11-2024 End: 07-11-2024 ambulatory [facility] Facility:[facility] Start: 07-06-2024 End: 07-06-2024 Telephone encounter Flako Tracy MD Work Phone: [facility] Comment on above: [facility] discharge Start: 06-29-2024 End: 07-30-2024 Release of Information Provider Not In System [facility] Historical Mapping Start: 06-29-2024 End: 07-30-2024 KRISTA Legacy Provider Not In System [facility] Historical Mapping Start: 06-26-2024 End: 06-26-2024 ambulatory Mechelle Garland RN [employer] Comment on above: Primary Care Coordin ator- Other Start: 06-25-2024 End: 06-25-2024 Telephone encounter Flako Tracy MD Work Phone: [facility] Comment on above: Orders Results Start: 06-25-2024 End: 06-25-2024 Patient encounter procedure Otoniel King PRODUCER ASSISTANT-C -Laboratory Specimen Work Phone: Start: 06-25-2024 ambulatory Flako Goodman y:[facility] Start: 06-25-2024 Non-patient / Non-visit Dr. Salty Tracy MD -[place] [facility] Work Phone: Start: 06-25-2024 End: 06-25-2024 Dr. Flako Tracy MD -[facility] Work Phone: Start: 06-25-2024 End: 06-25-2024 ambulatory Otoniel King NP Facility:[facility] Start: 06-22-2024 End: 06-22-2024 Patient encounter procedure Sofya SANDOVAL -[facility] Work Phone: Start: 06-22-2024 End: 06-22-2024 Sofya SANDOVAL -[facility] Work Phone: Start: 06-22-2024 End: 06-22-2024 ambulatory Kay SANDOVAL Facility:[facility] Start: 06-18-2024 End: 06-18-2024 Telephone encounter Flako Tracy MD Work Phone: [facility] Comment on above: OT plan of care Start: 06-13-2024 End: 08-13-2024 Follow-up encounter Otoniel King SILK SCREEN CUTTER.MORTICIAN INVESTIGATOR Work Phone: [facility] Start: 06-13-2024 End: 06-13-[address] Maykel Sloan MD -[facility] Work Phone: Start: 06-13-2024 End: 06-13-2024 Dr. Maykel Sloan MD -[facility] Work Phone: Start: 06-13-2024 End: 06-13-2024 ambulatory Maykel Sloan Facility:[facility] Start: 06-12-2024 End: 06-12-2024 ambulatory FLAKO TRACY Facility:[facility] Start: 06-12-2024 End: 06-12-2024 Patient encounter procedure Jerrod Busby Work Phone: [facility] Comment on above: Trochanteric bursiti s of right hip; Presence of right artificial knee joint; USP (current) use of 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 Start: 06-12-2024 ambulatory Flako Goodman y:[facility] Start: 06-12-2024 Non-patient / Non-visit Dr. Salty Tracy MD -[facility] Work Phone: Start: 06-12-2024 Dr. Flako slaughter MD -[facility] Work Phone: Start: 06-11-2024 End: 06-11-2024 ambulatory Low Patino Facility:[facility] Start: 06-11-2024 End: 06-11-[address] Low Patino MD -[facility] Work Phone: Start: 06-11-2024 End: 06-11-2024 Telephone encounter Flako Tracy MD Work Phone: [facility] Comment on above: Patient Update [facility] PT Plan of Ca re Start: 06-11-2024 End: 06-11-2024 Dr. Low Patino MD [facility] Work Phone: Start: 06-08-2024 End: 06-08-2024 Subsequent hospital visit by physician Jaleel [facility] Work Phone: Radiology Comment on above: Fall, sequela [W19.X XXS] Start: 06-08-2024 End: 06-08-2024 ambulatory FLAKO TRACY Facility:[facility] Start: 06-08-2024 End: 06-08-2024 Office outpatient visit 40 minutes Otoniel King APRN.CNP Work Phone: [facility] Comment on above: Generalized weakness (Primary Dx); Fall, sequela; Gastrointestinal hemorrhage associated with peptic ulcer; Iron deficiency anemia due to chronic blood loss; Hypertension, essential; Other cirrhosis of liver (HCC); Pain of right hip; Trochanteric bursitis of right hip Start: 06-07-2024 End: 06-07-2024 Telephone encounter Flako Tracy MD Work Phone: [facility] Comment on above: skilled nusring plan of care Start: 06-05-2024 End: 06-05-2024 Telephone encounter Flako Tracy MD Work Phone: [facility] Comment on above: [facility] agree to foll ow Start: 06-05-2024 Non-patient / Non-visit Dr. South nieves MD [facility] Work Phone: Start: 06-05-2024 Dr. South Lopez MD -[facility] Work Phone: Start: 06-04-2024 Non-patient / Non-visit Dr. South nieves MD -[place] [facility] Work Phone: Start: 06-04-2024 Dr. South Lopez MD -[facility] Work Phone: Start: 06-03-2024 Non-patient / Non-visit Dr. Cheryl Carroll DO [facility] Work Phone: Start: 06-03-2024 Dr. Cheryl Carroll DO [facility] Inpatient [facility] Work Phone: Start: 06-02-2024 Non-patient / Non-visit Dr. Cheryl Carroll DO [facility] Work Phone: Start: 06-02-2024 End: 06-05-2024 ambulatory [facility] Facility:[facility] Start: 06-02-2024 End: 06-05-2024 Evaluation and management of inpatient Dr. Cheryl Carroll DO -[facility] Surgical 3 Work Phone: Start: 06-02-2024 End: 06-05-[address] Flako Tracy MD Work Phone: [facility] Work Phone: Start: 06-02-2024 End: 06-05-2024 Dr. Cheryl Carroll DO [facility] Work Phone: Start: 06-01-2024 End: 06-04-2024 Telephone encounter Flako Tracy MD Work Phone: [address] [place] [address] Comment on above: Patient Update Start: 05-30-2024 End: 05-30-2024 [facility] Work Phone: Start: 05-30-2024 End: 05-30-2024 Emergency department patient visit Dr. Flako Tracy MD Work Phone: -Emergency Department Work Phone: Start: 05-24-2024 End: 05-24-[address] Flako Tracy MD Work Phone: [facility] Work Phone: Start: 05-24-2024 End: 05-24-2024 Discharged Recurring Kay Cavazos PA -Laboratory Work Phone: Start: 05-24-2024 Registered Recurring Kay Cavazos PA -Laboratory Work Phone: Start: 05-24-2024 End: 05-24-2024 Kay Cavazos PA -Laboratory Work Phone: Start: 05-22-2024 End: 05-22-2024 ambulatory FLAKO TRACY Facility:[facility] Start: 05-22-2024 End: 05-22-2024 Patient encounter procedure Otoniel King APRN.CNP Work Phone: [facility] Comment on above: UGIB (upper gastroin testinal bleed) (Primary Dx); Melanotic stools; Influenza A; Other cirrhosis of liver (HCC); Gastroesophageal reflux disease without esophagitis; Atrial fibrillation, unspecified type (HCC); Stage 3a chronic kidney disease (HCC); Bilateral carotid artery stenosis Start: 05-18-2024 Registered Recurring Kay Cavazos PA -Laboratory Work Phone: Start: 05-18-2024 End: 05-18-2024 Patient Outreach Flako Tracy MD Work Phone: [facility] Comment on above: Transition Of Care Patient Question Start: 05-17-2024 Non-patient / Non-visit Dr. Adonis isidro DO -[place] [facility] Work Phone: Start: 05-17-2024 Dr. Adonis Love DO -[facility] Work Phone: Start: 05-16-2024 Non-patient / Non-visit Omer Jean Paul janak DO [facility] Start: 05-16-2024 Omer Buck DO -[facility] Start: 05-16-2024 Non-patient / Non-visit Dr. Adonis isidro DO -[place] [facility] Work Phone: Start: 05-16-2024 Dr. Adonis Love DO -[facility] Work Phone: Start: 05-15-2024 End: 05-17-2024 Evaluation and management of inpatient Dr. South Jesus DO -Progressive Care Unit Work Phone: Start: 05-15-2024 End: 05-17-2024 Dr. [facility] Work Phone: Start: 05-15-2024 End: 05-15-2024 ambulatory Flako Tracy MD Work Phone: [facility] Comment on above: Gastrointestinal Ble ed Start: 05-14-2024 End: 05-14-2024 Refill Flako Tracy MD Work Phone: [facility] Comment on above: Refill Request Start: 05-13-2024 End: 05-14-2024 Dr. Alexis Copeland DO -Emergency Departme nt Work Phone: Start: 05-13-2024 End: 05-14-2024 Emergency department patient visit Dr. Flako Tracy MD Work Phone: -Emergency Department Work Phone: Start: 05-11-2024 Non-patient / Non-visit Dr. Adonis gonsales MD -[facility] Start: 05-11-2024 End: 05-11-[address] Flako Tracy MD Work Phone: [facility] Work Phone: Start: 05-11-2024 End: 05-11-[address] London Anna MD -Cardiovascular Services Work Phone: Start: 05-11-2024 End: 05-11-2024 Dr. Adonis Newman MD -[facility] Start: 05-11-2024 End: 05-11-2024 ambulatory Flako Tracy Facility:[facility] Start: 05-04-2024 End: 05-04-2024 Refill Flako Tracy MD Work Phone: [facility] Comment on above: Refill Request Start: 05-02-2024 End: 05-04-2024 Discharged Recurring Kay Cavazos PA -Laboratory Work Phone: Start: 05-02-2024 End: 05-04-2024 Kay Cavazos PA -Laboratory Work Phone: Start: 05-02-2024 End: 05-04-2024 ambulatory Kay SANDOVAL Facility:[facility] Start: 04-18-2024 End: 04-18-2024 ambulatory Low Patino Facility:[facility] Start: 04-18-2024 End: 04-18-[address] Low Patino MD -[facility] Work Phone: Start: 04-18-2024 End: 04-18-2024 Dr. Low Patino MD -[facility] Work Phone: Start: 04-04-2024 End: 04-04-2024 [facility] [place] Start: 04-04-2024 End: 04-04-2024 Patient encounter procedure Zachary Best MA [facility] [place] Comment on above: Population Health Na vigation Outreach ([place] high risk attempt 1) Start: 03-29-2024 End: 03-29-2024 Discharged Recurring Kay Cavazos PA -Laboratory Work Phone: Start: 03-29-2024 End: 03-29-2024 Kay Cavazos PA -Laboratory Work Phone: Start: 03-29-2024 End: 03-29-2024 ambulatory Kay SANDOVAL Facility:[facility] Start: 03-12-2024 End: 03-12-2024 ambulatory Low Patino Facility:[facility] Start: 03-12-2024 End: 03-12-[address] Low Patino MD -[facility] Work Phone: Start: 03-12-2024 End: 03-12-2024 Dr. Lwo Patino MD -[facility] Work Phone: Start: 02-24-2024 End: 02-24-2024 Telephone encounter Georgie Stallworth APRN.MORTICIAN INVESTIGATOR Work Phone: [facility] Comment on above: Results (Labs ) Start: 02-20-2024 End: 02-20-2024 ambulatory [facility] Facility:[facility] Start: 02-17-2024 End: 02-17-2024 Telephone encounter Georgie Stallworth APRN.MORTICIAN INVESTIGATOR Work Phone: [facility] Comment on above: Results (Lumbar Xray /Labs ) Start: 02-16-2024 End: 02-16-2024 Subsequent hospital visit by physician Xr [facility] Work Phone: Radiology Comment on above: Chronic midline low back pain without sciatica [M54.50, G89.29] Start: 02-16-2024 End: 02-16-2024 ambulatory [facility] Facility:[facility] Start: 02-16-2024 End: 02-16-2024 Patient encounter procedure Georgie Stallworth APRN.CNP Work Phone: [facility] Comment on above: Medicare annual [facility] ness visit, subsequent (Primary Dx); Recurrent UTI (urinary tract infection); Bilateral leg edema; Other cirrhosis of liver (HCC); Chronic midline low back pain without sciatica; Chronic constipation; Paroxysmal atrial fibrillation (HCC); Controlled type 2 diabetes mellitus without complication, without long-term current use of insulin (HCC); Hyperlipidemia, unspecified hyperlipidemia type; Encounter for screening examination for other mental health and behavioral disorders; Screening for depression; Pelvic pain Start: 02-09-2024 End: 02-09-2024 [facility] Start: 02-09-2024 End: 02-09-2024 [facility] Comment on above: Population Health Na vigation Outreach ([employer] ) Start: 01-30-2024 End: 02-04-2024 Discharged Recurring Kay Cavazos PA -Laboratory Work Phone: Start: 01-30-2024 End: 02-04-2024 ambulatory Kay SANDOVAL Facility:[facility] Start: 01-04-2024 End: 01-04-2024 [facility] Start: 01-04-2024 End: 01-04-2024 [facility] Comment on above: Population Health Na vigation Outreach ([employer] ) Start: 11-29-2023 End: 11-29-2023 Telephone encounter Areli Escobar APRN.MORTICIAN INVESTIGATOR Work Phone: [facility] [place] Start: 11-28-2023 End: 11-28-2023 Telephone encounter Areli Escobar APRN.MORTICIAN INVESTIGATOR Work Phone: [facility] [place] Comment on above: Results Start: 11-24-2023 End: 11-24-2023 Office outpatient visit 15 minutes Areli Escobar SILK SCREEN CUTTER.MORTICIAN INVESTIGATOR Work Phone: [facility] [place] Comment on above: Dysuria (Primary Dx) ; Acute cough Start: 11-24-2023 End: 11-28-2023 Telephone encounter Flako Tracy MD Work Phone: [facility] [place] Start: 10-27-2023 End: 10-27-2023 Telephone encounter Areli Escobar APRN.MORTICIAN INVESTIGATOR Work Phone: [facility] [place] Comment on above: Results Start: 10-21-2023 End: 10-21-2023 Subsequent hospital visit by physician Xr [facility] [place] Work Phone: Radiology Comment on above: Pelvic pain [R10.2] Start: 10-21-2023 End: 10-21-2023 Office outpatient visit 25 minutes Areli A Zackeryan SILK SCREEN CUTTER.MORTICIAN INVESTIGATOR Work Phone: [facility] [place] Comment on above: Nausea (Primary Dx); Pelvic pain; Class 1 obesity due to excess calories with serious comorbidity and body mass index (BMI) of 34.0 to 34.9 in adult; Chronic fatigue; Screening for lipid disorders; Paroxysmal atrial fibrillation (HCC); Other cirrhosis of liver (HCC); Gastroesophageal reflux disease without esophagitis; Controlled type 2 diabetes mellitus without complication, without long-term current use of insulin (HCC) Start: 10-17-2023 Telephone encounter Areli A Zackeryan SILK SCREEN CUTTER.MORTICIAN INVESTIGATOR Work Phone: [facility] [place] Comment on above: Lab Orders Start: 10-10-2023 Telephone encounter Areli A Suppan SILK SCREEN CUTTER.MORTICIAN INVESTIGATOR Work Phone: [facility] [place] Start: 10-07-2023 End: 10-07-2023 Office outpatient visit 15 minutes Areli A Suppan SILK SCREEN CUTTER.MORTICIAN INVESTIGATOR Work Phone: [facility] [place] Comment on above: Dysuria (Primary Dx) ; Chronic constipation; Jaw pain Start: 10-07-2023 Telephone encounter Flako saenz MD Work Phone: [facility] [place] Comment on above: UTI; Constipation; p ainful jaw Start: 08-29-2023 Telephone encounter [facility] Comment on above: Medication Question Start: 08-24-2023 End: 08-24-2023 Patient encounter procedure Fermin Weathers MD Work Phone: [facility] Comment on above: Urgency of urination (Primary Dx) Start: 07-15-2023 End: 07-16-2023 Emergency department patient visit Dr. Flako Tracy Work Phone: [facility] Work Phone: Start: 06-28-2023 Non-patient / Non-visit Dr. Salty Tracy Work Phone: [facility] Start: 06-28-2023 End: 06-28-[address] Flako Tracy Work Phone: [facility] Work Phone: Start: 06-28-2023 End: 06-28-[address] [facility] Start: 06-15-2023 End: 06-15-[address] Flako Tracy Work Phone: [facility] Work Phone: Start: 06-13-2023 End: 06-13-[address] Flako Tracy Work Phone: [facility] Work Phone: Start: 06-08-2023 End: 07-05-[address] Flako Tracy Work Phone: [facility] Work Phone: Start: 06-08-2023 End: 07-05-[address] Flako Tracy Work Phone: [facility] Work Phone: Start: 06-08-[address] Flako Tracy Work Phone: [facility] Work Phone: Start: 05-23-2023 End: 05-23-[address] Flako Tracy Work Phone: [facility] Work Phone: Start: 05-23-2023 End: 05-23-[address] lFako Tracy [facility] Work Phone: Start: 05-21-2023 End: 05-21-[address] Flako Tracy Work Phone: [facility] Work Phone: Start: 04-25-2023 End: 05-05-[address] Flako Tracy Work Phone: [facility] Work Phone: Start: 04-25-2023 End: 05-05-[address] Fl[facility] Start: 03-18-2023 End: 03-18-[address] Flako Tracy Work Phone: [facility] Work Phone: Start: 03-18-2023 End: 03-18-[address] Flako [facility] Start: 03-14-2023 End: 03-14-[address] Flako Tracy Work Phone: [facility] Work Phone: Start: 03-08-2023 End: 03-09-2023 ambulatory FLAKO TRACY Facility:[facility] Start: 03-04-2023 End: 03-04-[address] Flako Tracy Work Phone: [facility] Work Phone: Start: 03-04-2023 End: 03-04-[address] Flako [facility] Start: 02-15-2023 End: 02-15-[address] Flako Tracy Work Phone: [facility] Work Phone: Start: 02-15-2023 End: 02-15-[address] Flako Tracy Work Phone: [facility] Work Phone: Start: 02-11-2023 Non-patient / Non-visit Dr. Salty Tracy Work Phone: [facility] Work Phone: Start: 02-11-2023 End: 02-11-2023 Anticoagulant drug monitoring [facility] Work Phone: [facility] [place] Comment on above: Paroxysmal atrial fi brillation (HCC) (Primary Dx); Anticoagulant long-term use Start: 02-04-2023 Non-patient / Non-visit Dr. Salty Tracy Work Phone: [facility] Work Phone: Start: 02-03-2023 End: 02-03-2023 ambulatory FLAKO TRACY [facility] [place] Comment on above: Visit for wound chec k (Primary Dx) Start: 02-03-2023 End: 02-03-2023 Telemedicine consultation with patient Nurse Card Ag Perry Pob Work Phone: [facility] Start: 01-31-2023 End: 01-31-[address] Flako Tracy Work Phone: [facility] Work Phone: Start: 01-28-2023 Telephone encounter Magaly Farmer [facility] Comment on above: Anticoagulation Tele phone Fu Start: 01-28-2023 End: 01-28-2023 Emergency department patient visit Dr. Flako Tracy Work Phone: [facility] Work Phone: Start: 01-26-2023 Patient Outreach Yuri hernandez RN Work Phone: [employer] Comment on above: Transition Of Care ( TCM Initial [facility] Discharge 01/25/23/) Start: 01-25-2023 Follow-up encounter Adarsh Steele MD Work Phone: [facility] Start: 01-25-2023 Patient encounter procedure Adarsh Steele MD Work Phone: [facility] NOT [facility]ED Start: 01-25-2023 Telephone encounter Miguelito peter APRN.CNP Work Phone: [facility] [place] Comment on above: Wound Check medication question/ prednisone Start: 01-22-2023 End: 01-25-2023 Evaluation and management of inpatient [facility] Facility:[facility] Start: 01-21-2023 End: 01-22-2023 Emergency department patient visit Dr. Flako Tracy Work Phone: [facility] Work Phone: Start: 01-21-2023 End: 01-21-2023 Patient encounter procedure Flako Tracy MD Work Phone: [facility] Comment on above: Hospital discharge f ollow-up (Primary Dx); Orthostatic hypotension; Acute right-sided low back pain without sciatica; Dyslipidemia associated with type 2 diabetes mellitus (HCC) ; Atrial fibrillation, unspecified type (HCC); USP (current) use of 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; Stage 3a chronic kidney disease (HCC) Start: 01-19-2023 ambulatory Flako rosenberg MD Work Phone: [facility] Comment on above: Palpitations Start: 01-17-2023 End: 01-17-2023 Patient encounter procedure Pam Ocampo MD Work Phone: General Surgery Comment on above: Abnormal ultrasound of thyroid gland (Primary Dx); Thyroid nodule Start: 01-17-2023 End: 01-17-[address] Falko Tracy Work Phone: [facility] Work Phone: Comment on above: Transition Of Care Start: 01-17-2023 End: 01-17-[address] Flako Tracy Work Phone: [facility] Work Phone: Start: 01-15-2023 Non-patient / Non-visit Dr. Salty Tracy Work Phone: [facility] Work Phone: Start: 01-15-2023 Non-patient / Non-visit Dr. Salty Tracy Work Phone: [facility] Start: 01-14-2023 End: 01-15-2023 Evaluation and management of inpatient Dr. Flako Tracy Work Phone: [facility] Work Phone: Start: 01-14-2023 End: 01-15-[address] Flako Tracy Work Phone: [facility] Work Phone: Start: 01-07-2023 Telephone encounter Katherin slater MD Work Phone: Mammography Comment on above: Mammogram Result Carlos l Back Start: 01-06-2023 Telephone encounter Georgie roy SILK SCREEN CUTTER.MORTICIAN INVESTIGATOR Work Phone: [facility] Comment on above: Results (US Thyroid and Head CT ); Orders Start: 01-06-2023 ambulatory [facility] Facility :[facility] Start: 01-05-2023 End: 01-05-2023 Subsequent hospital visit by physician [facility] 2 Work Phone: Radiology Comment on above: Dysphagia, unspecifi ed type [R13.10] Start: 01-05-2023 End: 01-05-2023 Patient encounter procedure Georgie Stallworth SILK SCREEN CUTTER.MORTICIAN INVESTIGATOR Work Phone: [facility] Comment on above: Hospital discharge f ollow-up (Primary Dx); Fall, initial encounter; Dysphagia, unspecified type; History of thyroid nodule; Injury of head, initial encounter Start: 01-01-2023 End: 01-01-2023 Emergency department patient visit Dr. Flako Tracy Work Phone: [facility] Work Phone: Start: 12-30-2022 End: 12-30-2022 Anticoagulant drug monitoring Anticoag [facility] Work Phone: [facility] [place] Comment on above: Atrial fibrillation, unspecified type (HCC) (Primary Dx); USP (current) use of 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 Start: 12-30-2022 End: 12-30-2022 Subsequent hospital visit by physician Screen Mammo [facility] Mammogram Comment on above: Encounter for screen ing mammogram for malignant neoplasm of breast [Z12.31] Start: 12-29-2022 Telephone encounter Flako saenz MD Work Phone: [facility] Comment on above: Orders Start: 11-25-2022 End: 11-25-2022 Patient encounter procedure Jessica Lara APRN.MORTICIAN INVESTIGATOR Work Phone: [facility] Comment on above: URI with cough and c ongestion (Primary Dx); Nausea Start: 11-24-2022 Orders Only Flako rosenberg MD Work Phone: [facility] Comment on above: imaging technologist (current) use of 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 (Primary Dx) Anticoagulation - In itial Consult Start: 11-22-2022 Telephone encounter Georgie roy SILK SCREEN CUTTER.MORTICIAN INVESTIGATOR Work Phone: [facility] Comment on above: Results (Labs ) Start: 11-19-2022 End: 11-19-2022 Patient encounter procedure Georgie Stallworth SILK SCREEN CUTTER.MORTICIAN INVESTIGATOR Work Phone: [facility] Comment on above: Recurrent UTI (urina ry tract infection) (Primary Dx); Goiter; Atrial fibrillation, unspecified type (HCC); Obesity, Class I, BMI 30-34.9 Start: 11-16-2022 Telephone encounter Arielle Lara APRN.MORTICIAN INVESTIGATOR Work Phone: [facility] Comment on above: Results Start: 11-15-2022 End: 11-15-2022 Office outpatient visit 25 minutes Edgard aXvi HAMILTON.MORTICIAN INVESTIGATOR Work Phone: [facility] Comment on above: Urinary frequency (P rimary Dx); Burning with urination Start: 11-15-2022 Telephone encounter Flako saenz MD Work Phone: [facility] Comment on above: dysuria Start: 11-01-2022 Patient encounter procedure Erlinda Urias MD Work Phone: [facility] Start: 11-01-2022 Telephone encounter Arielleluann Lara APRN.MORTICIAN INVESTIGATOR Work Phone: [facility] Comment on above: Results Start: 10-26-2022 Telephone encounter Flako saenz MD Work Phone: [facility] Comment on above: Anticoagulation Start: 10-18-2022 Refill Flako rosenberg MD Work Phone: [facility] Comment on above: Refill Request Start: 10-15-2022 End: 10-15-[address] Flako Tracy Work Phone: [facility] Work Phone: Start: 10-14-2022 Telephone encounter Flako saenz MD Work Phone: [facility] Comment on above: Patient Update Start: 10-13-2022 End: 10-13-2022 Emergency department patient visit [facility] Work Phone: Start: 10-13-2022 ambulatory Flako rosenberg MD Work Phone: [facility] Comment on above: Rectal Bleeding Start: 08-25-2022 End: 08-25-2022 Subsequent hospital visit by physician [facility] Mob 2 Work Phone: Radiology Comment on above: History of thyroid n odule [Z86.39] Start: 08-25-2022 End: 08-25-2022 [facility] Comment on above: Renal carcinoma, rig ht (HCC) [C64.1] Start: 08-14-2022 End: 08-14-2022 Emergency department patient visit [facility] Work Phone: Start: 08-12-2022 Telephone encounter Flako saenz MD Work Phone: [facility] Comment on above: Results Start: 08-10-2022 End: 08-10-2022 Patient encounter procedure Flako Tracy MD Work Phone: [facility] Comment on above: Atrial fibrillation, unspecified type (HCC) (Primary Dx); Hyperlipidemia, mixed; Type 2 diabetes mellitus without complication, without long-term current use of insulin (HCC); Acute midline low back pain without sciatica; Fatigue, unspecified type; Other cirrhosis of liver (HCC); Tendon sheath thickening; Stage 3a chronic kidney disease (HCC); Malignant neoplasm of right kidney (HCC); Dyslipidemia associated with type 2 diabetes mellitus (HCC) Start: 08-06-2022 Telephone encounter Flako saenz MD Work Phone: [facility] Comment on above: Anticoagulation Start: 07-12-2022 End: 07-12-2022 Subsequent hospital visit by physician Xr [facility] Work Phone: Radiology Comment on above: Pain [R52] Start: 07-12-2022 End: 07-12-2022 Patient encounter procedure Arielle Lara APRN.CNP Work Phone: [facility] Comment on above: Burning with urinati on (Primary Dx); Recurrent UTI (urinary tract infection); Pain Start: 07-12-2022 Telephone encounter Flako saenz MD Work Phone: [facility] Comment on above: Orders Start: 05-11-2022 ambulatory Paris Mckeon [facility] [place] Comment on above: Population Health Na vigation Outreach ([employer] Gaps ) Start: 04-05-2022 End: 04-05-2022 Patient encounter procedure Tiffanie Reyes PA-C Work Phone: [facility] Comment on above: Acute cystitis with hematuria (Primary Dx) Start: 02-09-2022 End: 02-09-2022 Subsequent hospital visit by physician Xr [facility] Work Phone: Radiology Comment on above: Left groin pain [R10 .32] Start: 01-20-2022 End: 01-20-2022 Subsequent hospital visit by physician Diagnostic Mammo [facility] Mammogram Comment on above: Abnormal mammogram [ R92.8] Start: 04-10-2021 Refill Vic craig MD Work Phone: [facility] Comment on above: Medication Refill (S otaloL) Start: 12-05-2020 End: 12-05-2020 Subsequent hospital visit by physician Xr [facility] Work Phone: Radiology Comment on above: Rib injury [S29.9XXA ] Start: 08-25-2020 End: 08-25-2020 Refill Vic Christie MD Work Phone: [facility] Comment on above: Medication Refill (S otalol and Losartan/HCTZ) Start: 03-25-2020 End: 03-25-2020 Refill Vic Christie Work Phone: [facility] Comment on above: Medication Refill (W arfarin) Start: 02-14-2020 Patient encounter procedure OTONIEL KING [facility] Start: 01-23-2020 End: 01-23-2020 Patient encounter procedure VIC CHRISTIE [facility] Start: 01-17-2020 Patient encounter procedure VIC CHRISTIE [facility] Start: 12-31-2019 End: 12-31-2019 Subsequent hospital visit by physician Xr [facility] Work Phone: Radiology Comment on above: Chronic bilateral lo w back pain without sciatica [M54.5, G89.29] Start: 12-10-2019 End: 12-10-2019 Subsequent hospital visit by physician Xr [facility] Work Phone: Radiology Comment on above: Malignant neoplasm o f right kidney (HCC) [C64.1] Start: 10-18-2019 Patient encounter procedure VIC CHRISTIE [facility] Start: 09-12-2019 End: 09-16-2019 Patient encounter procedure VIC CHRISTIE [facility] Start: 09-12-2019 End: 09-12-2019 Subsequent hospital visit by physician Vic Christie Work Phone: [facility] Comment on above: Bilateral carotid ar augustina stenosis Start: 08-27-2019 Patient encounter procedure VIC CHAUHTA [facility] Start: 08-03-2019 Patient encounter procedure OTONIEL KING [facility] Start: 08-01-2019 End: 08-01-2019 Patient encounter procedure VIC CHRISTIE [facility] Start: 07-17-2019 Patient encounter procedure DIVYA DOCKERY [facility] Start: 07-13-2019 Patient encounter procedure DIVYA DOCKERY [facility] Start: 06-28-2019 Patient encounter procedure ZAC SULLIVAN [facility] Start: 06-25-2019 Patient encounter procedure DIVYA DOCKERY [facility] Start: 06-21-2019 Patient encounter procedure DIVYA DOCKERY [facility] Start: 05-25-2019 Patient encounter procedure DIVYA DOCKERY [facility] Start: 05-04-2019 Patient encounter procedure DIVYA DOCKERY [facility] Start: 02-06-2019 End: 02-07-2019 Patient encounter procedure VICJESE PURI [facility] Start: 02-06-2019 End: 02-06-2019 Subsequent hospital visit by physician Vic Christie Work Phone: [facility] Comment on above: Bilateral carotid ar augustina stenosis Start: 01-31-2019 End: 01-31-2019 Office outpatient visit 15 minutes Vic Christie Work Phone: [facility] Comment on above: Paroxysmal atrial fi brillation (HCC) (Primary Dx); Bilateral carotid artery stenosis; Essential hypertension; Dyslipidemia associated with type 2 diabetes mellitus (HCC); Cerebrovascular accident (CVA), unspecified mechanism (HCC) Start: 08-02-2018 End: 08-02-2018 Patient encounter procedure Vic Christie Work Phone: [facility] Comment on above: Carotid stenosis, bi lateral Start: 08-02-2018 End: 08-02-2018 Office outpatient visit 25 minutes Vic Garciaa Work Phone: [facility] Comment on above: Essential hypertensi on (Primary Dx); Atrial fibrillation, unspecified type (HCC); Cerebrovascular accident (CVA), unspecified mechanism (HCC); Bilateral carotid artery stenosis; Dyslipidemia associated with type 2 diabetes mellitus (HCC) Start: 01-05-2018 Patient encounter procedure Vic A Christie Facility:[facility] Start: 01-05-2018 End: 01-05-2018 Patient encounter Vic Garciaa Work Phone: [facility] Start: 01-05-2018 End: 01-05-2018 Patient encounter Vic Garciaa Work Phone: [facility] Comment on above: Arrived Start: 12-26-2017 Patient encounter procedure Vic A Christie Facility:[facility] Start: 05-13-2017 End: 05-14-2017 Ambulatory Vic Christie Facility:[facility] Start: 05-13-2017 Ambulatory Vic gilliamta Work Phone: [facility] Start: 04-06-2017 Office/outpatient vi sit, est, level 4 Vic Khushi Christie Work Phone: [facility] Start: 10-22-2016 End: 10-23-2016 Ambulatory Vic Christie Facility:[facility] Start: 10-22-2016 Ambulatory Vic Johnston ehta Work Phone: [facility] Start: 10-06-2016 Office/outpatient vi sit, est, level 4 Vic Khushi Christie Work Phone: [facility] Procedures Date Procedure Procedure Detail Performing Clinician Start: 11-09-2024 Urnls dip stick/tablet rgnt auto w/o microscopy Norma Fernández APRN.MORTICIAN INVESTIGATOR Work Phone: Start: 11-01-2024 Esophagoscp rig transoral hypopharynx crv esoph Dariela Coulter PA-C Work Phone: Start: 11-01-2024 Colonoscopy flx dx w/collj spec when pfrmd Dariela Coulter PA-C Work Phone: Start: 10-01-2024 Us abdominal real time w/image limited Dariela Coulter PA-C Work Phone: Start: 09-12-[address] Flako Tracy MD Work Phone: Comment on above: Test Ordered: [id number] Enhanced Liver Fibr osis (ELF)ELF(TM) Score 11.58 [H ] BN Reference Range: <9.80ELF(TM) Score Interpretation:Risk cut-offs to assess the likelihood of progressionto cirrhosis and liver-related clinical events within3.9 years following baseline ELF score (IQR: 14.0-22.4months)*: Lower risk < 9.80 Mid risk 9.80 - 11.29 Higher risk >11.29Note: The ELF(TM) Score is a unitless numerical value.*Andrea SA, Fortunato VW, Okandrei T, et al. Selonsertibfor patients with bridging fibrosis or compensatedcirrhosis due to KIDD: Results from randomized phaseIII STELLAR trials. J Hepatol. 2020 Sep;73(1):26-39.Performed at: [address] [id number] Director: Jenny Cm MD, Phone: [phone] at: [facility] [id number] Director: Josafat El PhD, Phone: [phone] Start: 09-12-2024 Albumin/Globulin ratio Dr. Flako menchaca MD Work Phone: Start: 09-12-2024 Wzyge-2-Dkccrcefukh measurement Dr. Flako Tracy MD Work Phone: Comment on above: Mapiliary Electrochemiluminescen ce Immunoassay(ECLIA)Values obtained with different assay methods or kits cannotbe used interchangeably. Results cannot be interpreted asabsolute evidence of the presence or absence of malignantdisease.This test is not interpretable in females. Start: 09-12-[address] Flako Tracy MD Work Phone: Comment on above: Performed at: [address] [id number] Director: Josafat El PhD, Phone: [phone] Start: 09-12-[address] Flako Tracy MD Work Phone: Comment on above: The atypical pANCA pattern has been obse rved in asignificant percentage of patients with ulcerative colitis,primary sclerosing cholangitis and autoimmune hepatitis. Start: 09-12-2024 Antibody to centromere measurement Dr. Flako Tracy MD Work Phone: Comment on above: Test not performed Start: 09-12-2024 Antibody to extractable nuclear antigen measurement Dr. Flako Tracy MD Work Phone: Comment on above: Test not performed Start: 09-12-2024 Antibody to MITUL-[address] Flako lopes MD Work Phone: Comment on above: Test not performed Start: 09-12-2024 Antibody to lupus La protein measurement Dr. Flako Tracy MD Work Phone: Comment on above: Test not performed Start: 09-12-2024 Antibody to SS-A measurement Dr. Flako lopes MD Work Phone: Comment on above: Test not performed Start: 09-12-[address] Flako christianson MD Work Phone: Comment on above: Test not performed Start: 09-12-2024 Blood count smear mcrscp w/mnl difrntl wbc count Dr. Flako Tracy MD Work Phone: Start: 09-12-2024 Calculation of international normalized ratio Dr. Flako Tracy MD Work Phone: Start: 09-12-[address] Flako slaughter MD Work Phone: Start: 09-12-2024 Copper measurement, serum Dr. Flako slaughter MD Work Phone: Comment on above: Detection Limit = 5Performed at: - [facility] [id number] [place], [place] [id number] Director: Josafat El PhD, Phone: [phone] at: [address] [id number] Director: Jenny Cm MD, Phone: [phone] Start: 09-12-2024 Hepatitis A virus antibody, IgM type Dr. Flako Tracy MD Work Phone: Comment on above: A negative anti-HAV IgM result suggests no recent orcurrent HAV infection. Start: 09-12-2024 Hepatitis B core antibody measurement, IgM type Dr. Flako Tracy MD Work Phone: Start: 09-12-2024 Hepatitis C antibody measurement Dr. Emily Tracy MD Work Phone: Start: 09-12-[address] Dr. Flako lopes MD Work Phone: Start: 09-12-2024 Mean corpuscular hemoglobin concentration determination Dr. Flako Tracy MD Work Phone: Start: 09-12-2024 Nucleated red blood cell count procedure Dr. Flako Tracy MD Work Phone: Start: 09-12-2024 Platelet mean volume determination Dr. Flako Tracy MD Work Phone: Start: 09-12-[address] Flako christianson MD Work Phone: Comment on above: Test not performed Start: 09-12-2024 Total cholesterol:HDL ratio measurement Dr. Flako Tracy MD Work Phone: Start: 09-12-2024 Total iron binding capacity measurement Dr. Flako Tracy MD Work Phone: Start: 09-12-2024 Urine lambda light chain measurement Dr. Flako Tracy MD Work Phone: Start: 09-12-[address] elast[address] of liver Dr. Emily Tracy MD Work Phone: Start: 08-13-2024 Calculation of international normalized ratio Dr. Flako Tracy MD Work Phone: Start: 07-13-2024 Complete ultrasound of kidneys and bladder Dr. Flako Tracy MD Work Phone: Start: 07-13-2024 CT angiography of head and neck Dr. Flako Tracy MD Work Phone: Start: 07-11-[address] Flako Tracy MD Work Phone: Start: 07-11-2024 Urine microscopy: red cells Dr. Flako saenz MD Work Phone: Start: 07-11-2024 Urnls dip stick/tablet reagent auto microscopy Dr. Flako Tracy MD Work Phone: Start: 06-25-2024 Blood count smear mcrscp w/mnl difrntl wbc count Dr. Flako Tracy MD Work Phone: Start: 06-25-2024 Mean corpuscular hemoglobin concentration determination Dr. Flako Tracy MD Work Phone: Start: 06-25-2024 Nucleated red blood cell count procedure Dr. Flako Tracy MD Work Phone: Start: 06-25-2024 Platelet mean volume determination Dr. Flako Tracy MD Work Phone: Start: 06-12-2024 Arthrocentesis aspir&/inj major jt/bursa w/o us Jerrod Busby DO Work Phone: Start: 06-05-2024 Blood count smear mcrscp w/mnl difrntl wbc count Dr. Flako Tracy MD Work Phone: Start: 06-05-[address] Flako Tracy MD Work Phone: Start: 06-05-2024 Mean corpuscular hemoglobin concentration determination Dr. Flako Tracy MD Work Phone: Start: 06-05-2024 Nucleated red blood cell count procedure Dr. Flako Tracy MD Work Phone: Start: 06-05-2024 Platelet mean volume determination Dr. Flako Tracy MD Work Phone: Start: 06-05-2024 Serum inorganic phosphate measurement Dr. Flako Tracy MD Work Phone: Start: 06-03-[address] Flako Tracy MD Work Phone: Start: 06-02-2024 Urine microscopy: red cells Dr. Flako saenz MD Work Phone: Start: 06-02-2024 Urnls dip stick/tablet reagent auto microscopy Dr. Flako Tracy MD Work Phone: Start: 06-02-2024 Calculation of international normalized ratio Dr. Flako Tracy MD Work Phone: Start: 06-02-2024 Computed tomography of abdomen and pelvis with intravenous contrast Dr. Flako Tracy MD Work Phone: Start: 06-02-2024 CT cervical spine without contrast Dr. Flako Tracy MD Work Phone: Start: 06-02-2024 CT of chest without contrast Dr. Flako lopes MD Work Phone: Start: 06-02-2024 CT of head without contrast Dr. Flako saenz MD Work Phone: Start: 05-30-2024 Blood count smear mcrscp w/mnl difrntl wbc count Dr. Flako Tracy MD Work Phone: Start: 05-30-2024 Calculation of international normalized ratio Dr. Flako Tracy MD Work Phone: Start: 05-30-[address] Flako Tracy MD Work Phone: Start: 05-30-2024 Mean corpuscular hemoglobin concentration determination Dr. Flako Tracy MD Work Phone: Start: 05-30-2024 Nucleated red blood cell count procedure Dr. Flako Tracy MD Work Phone: Start: 05-30-2024 Platelet mean volume determination Dr. Flako Tracy MD Work Phone: Start: 05-30-2024 CT angiography of chest with contrast Dr. Flako Tracy MD Work Phone: Start: 05-24-2024 Calculation of international normalized ratio Dr. Flako Tracy MD Work Phone: Start: 05-17-2024 Blood count smear mcrscp w/mnl difrntl wbc count Dr. Flako Tracy MD Work Phone: Start: 05-17-[address] Flako Tracy MD Work Phone: Start: 05-17-2024 Mean corpuscular hemoglobin concentration determination Dr. Flako Tracy MD Work Phone: Start: 05-17-2024 Nucleated red blood cell count procedure Dr. Flako Tracy MD Work Phone: Start: 05-17-2024 Platelet mean volume determination Dr. Flako Trayc MD Work Phone: Start: 05-17-2024 Serum inorganic phosphate measurement Dr. Flako Tracy MD Work Phone: Start: 05-16-2024 Computed tomography of abdomen and pelvis with contrast Dr. Flako Tracy MD Work Phone: Start: 05-16-[address] Flako wilkins MD Work Phone: Start: 05-16-2024 Calculation of international normalized ratio Dr. Flako Tracy MD Work Phone: Start: 05-16-2024 Urine microscopy: red cells Dr. Flako saenz MD Work Phone: Start: 05-16-2024 Urnls dip stick/tablet reagent auto microscopy Dr. Flako Tracy MD Work Phone: Start: 05-16-2024 CT of head without contrast Dr. Flako saenz MD Work Phone: Start: 05-16-2024 CT of chest without contrast Dr. Flako lopes MD Work Phone: Start: 05-15-2024 Total iron binding capacity measurement Dr. Flako Tracy MD Work Phone: Start: 05-15-2024 Measurement of occult blood in stool specimen using immunoassay Dr. Flako Tracy MD Work Phone: Start: 05-14-2024 SARS-CoV-2, Influenza & RSV (PCR) Dr. Salty Tracy MD Work Phone: Start: 05-14-2024 Dr. Flako Tracy MD Work Phone: Start: 05-14-[address] Flako Tracy MD Work Phone: Start: 05-14-2024 Mean corpuscular hemoglobin concentration determination Dr. Flako Tracy MD Work Phone: Start: 05-14-2024 Plain chest X-ray Dr. Flako Tracy MD Work Phone: Start: 05-14-2024 Platelet mean volume determination Dr. Flako Tracy MD Work Phone: Start: 05-14-[address] Flako Tracy MD Work Phone: Start: 05-13-2024 CT of abdomen and pelvis without contrast Dr. Flako Tracy MD Work Phone: Start: 05-02-2024 Calculation of international normalized ratio Dr. Flako Tracy MD Work Phone: Start: 03-29-2024 Calculation of international normalized ratio Dr. Flako Tracy MD Work Phone: Start: 02-16-2024 Adult depression screening assessment Georgie Stallworth SILK SCREEN CUTTER.MORTICIAN INVESTIGATOR Work Phone: Start: 11-24-2023 Urnls dip stick/tablet rgnt auto w/o microscopy Areli Escobar SILK SCREEN CUTTER.MORTICIAN INVESTIGATOR Work Phone: Start: 10-21-2023 Radiologic exam abdomen 1 view Millicent aydin Overton Shawn SILK SCREEN CUTTER.MORTICIAN INVESTIGATOR Work Phone: Start: 10-07-2023 Urnls dip stick/tablet rgnt auto w/o microscopy Areli Vizcarrasimon SILK SCREEN CUTTER.MORTICIAN INVESTIGATOR Work Phone: Start: 08-24-2023 Urnls dip stick/tablet rgnt auto w/o microscopy Fermin Weathers MD Work Phone: Start: 07-15-2023 CT cervical spine without contrast Dr. Flako Tracy Work Phone: Start: 07-15-2023 CT of head without contrast Dr. Flako saenz Work Phone: Start: 02-11-2023 Prothrombin time [facility] Provider Start: 01-28-2023 Diagnostic radiography of abdomen Dr. Salty Tracy Work Phone: Start: 01-25-2023 PACEMAKER CLINIC CHECK Adarsh Steele MD Work Phone: Start: 01-21-2023 Plain chest X-ray Dr. Flako Tracy Work Phone: Start: 01-17-2023 Plain x-ray of pelvis and lower extremity Dr. Flako Tracy Work Phone: Start: 01-14-2023 Plain chest X-ray Dr. Flako Tracy Work Phone: Start: 01-14-2023 CT cervical spine without contrast Dr. Flako Tracy Work Phone: Start: 01-14-2023 CT of head without contrast Dr. Flako saenz Work Phone: Start: 01-05-2023 Us soft tissue head & neck real time imge haydee Stallworth SILK SCREEN CUTTER.MORTICIAN INVESTIGATOR Work Phone: Start: 01-01-2023 Plain x-ray of hand Dr. Flako Tracy Work Phone: Start: 01-01-2023 Plain x-ray of pelvis and lower extremity Dr. Flako Tracy Work Phone: Start: 01-01-2023 CT of head without contrast Dr. Flako saenz Work Phone: Start: 12-30-2022 Screening mammography bi 2-view breast inc cad Flako Tracy MD Work Phone: Start: 11-25-2022 COVID & INFLUENZA A/B & RSV NAAT, ROUTINE Jessica Lara SILK SCREEN CUTTER.MORTICIAN INVESTIGATOR Work Phone: Start: 11-25-2022 Iadna respiratry probe & rev trnscr 3-5 targets Jessica Lara SILK SCREEN CUTTER.MORTICIAN INVESTIGATOR Work Phone: Start: 11-25-2022 Sars-cov-2 detection by dna/rna Jessica nelson SILK SCREEN CUTTER.MORTICIAN INVESTIGATOR Work Phone: Start: 11-15-2022 Urnls dip stick/tablet rgnt auto w/o microscopy Erlinda Cota SILK SCREEN CUTTER.MORTICIAN INVESTIGATOR Work Phone: Start: 08-25-2022 Us soft tissue head & neck real time imge docm Falko Tracy MD Work Phone: Start: 08-25-2022 Ct abdomen & pelvis w/contrast material Flako Tracy MD Work Phone: Start: 08-14-2022 Plain chest X-ray Start: 07-12-2022 Radex shoulder complete minimum 2 views Arielle Lara APRN.MORTICIAN INVESTIGATOR Work Phone: Start: 07-12-2022 Urnls dip stick/tablet rgnt auto w/o microscopy Arielle Lara SILK SCREEN CUTTER.MORTICIAN INVESTIGATOR Work Phone: Start: 04-05-2022 Urnls dip stick/tablet rgnt auto w/o microscopy Tiffanie Reyes PA-C Work Phone: Start: 02-09-2022 End: 02-09-2022 Radex hip unilateral with pelvis 2-3 views Flako Tracy MD Work Phone: Start: 01-20-2022 Us breast uni real time with image limited Flako Tracy MD Work Phone: Start: 01-20-2022 ELI DIAG W SANTY RIGHT Flako Tracy MD Work Phone: Start: 12-16-2021 Mammography Tiffanie Eric FIELDC Work Phone: Start: 12-05-2020 Radex ribs uni w/posteroant ch minimum 3 views Norma Fernández SILK SCREEN CUTTER.MORTICIAN INVESTIGATOR Work Phone: Start: 12-31-2019 Radex spine lumbosacral 2/3 views Otoniel King SILK SCREEN CUTTER.MORTICIAN INVESTIGATOR Work Phone: Start: 12-10-2019 Radiologic exam chest 2 views Garcia Uribe MD Work Phone: Start: 09-12-2019 Carotid artery doppler assessment Vic Christie Work Phone: Start: 05-19-2019 Antibody screen Comment on above: Performed By: #### HGBI #### [place] [id number] Start: 05-04-2019 Antibody screen Comment on above: Performed By: #### T&S #### [place] [id number] Start: 08-02-2018 12 lead ECG Vic Christie Work Phone: Start: 01-05-2018 End: 01-05-2018 [facility] - CREATININE WITH EGFR Vic Khushi Christie Work Phone: Plan of Treatment Date Care Activity Detail Author Start: 03-11-2033 Urine microalbumin profile DTaP,Tdap,Td Vaccine (3 - Td or Tdap) [facility] Start: 10-15-2025 Glaucoma screening Dilated Retinal Exam [facility] Start: 09-27-2025 Complete blood count Hemoglobin/Hematocrit [facility] Start: 08-24-2025 Annual PCP Team Chronic Disease Visit Annual PCP Team Chronic Disease Visit [facility] Start: 08-13-2025 Complete blood count Hemoglobin/Hematocrit [facility] Start: 08-13-2025 Creatinine measurement Serum Creatinine [facility] Start: 08-13-2025 Hepatitis B surface antibody level LDL Cholesterol [facility] Start: 06-08-2025 Annual PCP Team Chronic Disease Visit Annual PCP Team Chronic Disease Visit [facility] Start: 05-22-2025 Annual PCP Team Chronic Disease Visit Annual PCP Team Chronic Disease Visit [facility] Start: 05-19-2025 COLOGUARD (FIT-DNA) COLOGUARD (FIT-DNA) [facility] Start: 05-19-2025 COLORECTAL CANCER SCREENING COLORECTAL CANCER SCREENING [facility] Start: 05-19-2025 Screening for malignant neoplasm of colon [facility] Start: 02-19-2025 Creatinine measurement Serum Creatinine [facility] Start: 02-19-2025 End: 02-19-2025 Patient encounter procedure 02/19/2025 10:40 AM EST Office Visit [facility] [address] [place] [address] Flako Tracy MD [address] [place] [address] Annual Wellness Exam [facility] Comment on above: Annual Wellness Exam Start: 02-15-2025 Annual PCP Team Chronic Disease Visit Annual PCP Team Chronic Disease Visit [facility] Start: 02-15-2025 Anxiety Screening Anxiety Screening [facility] Start: 02-15-2025 Covid-19 Vaccine () Covid-19 Vaccine () [facility] Comment on above: Postponed from 11/06/2023 (Declined at t his time) Start: 02-15-2025 Creatinine measurement Serum Creatinine [facility] Start: 02-15-2025 Depression Screening Depression Screening [facility] Start: 02-15-2025 Hepatitis B surface antibody level LDL Cholesterol [facility] Start: 02-15-2025 Pneumococcal Vaccine: 50+ (1 of 2 - PCV) Pneumococcal Vaccine: 50+ (1 of 2 - PCV) [facility] Comment on above: Postponed from [birth year]/08/1967 (Declined at t his time) Start: 02-15-2025 Pneumococcal Vaccine: 65+ (1 of 2 - PCV) Pneumococcal Vaccine: 65+ (1 of 2 - PCV) [facility] Comment on above: Postponed from 1954 (Declined at t his time) Start: 02-15-2025 Shingrix Vaccine (1 of 2) Shingrix Vaccine (1 of 2) [facility] Comment on above: Postponed from 1998 (Declined at t his time) Start: 01-21-2025 ambulatory Facility:[facility] Start: 11-30-2024 Registered Recurring Registered Recurring -Laboratory Work Phone: Start: 11-29-2024 End: 11-29-2024 Patient encounter procedure 11/29/2024 10:40 AM EDT Office Visit [facility] [address] [place] [address] Flako Tracy MD [address] [place], [place] [id number] 3 month follow up [facility] Comment on above: 3 month follow up Start: 11-24-2024 End: 02-23-2025 CBC panel - Blood by Automated count COMPLETE BLOOD COUNT Lab Routine Stage 3a chronic kidney disease (HCC) Hypertension, essential Expected: 11/24/2024, Expires: 02/23/2025 [facility] Comment on above: Expected: 11/24/2024, Expires: Start: 11-24-2024 End: 02-23-2025 Comprehensive metabolic 2000 panel - Serum or Plasma COMPREHENSIVE METABOLIC PANEL Lab Routine Stage 3a chronic kidney disease (HCC) Hyperlipidemia, unspecified hyperlipidemia type Hypertension, essential Type 2 diabetes mellitus without complication, without long-term current use of insulin (HCC) Expected: 11/24/2024, Expires: 02/23/2025 [facility] Work Phone: Comment on above: Expected: 11/24/2024, Expires: Start: 11-24-2024 End: 02-23-2025 Hemoglobin A1c in Blood HEMOGLOBIN A1C Lab Routine Type 2 diabetes mellitus without complication, without long-term current use of insulin (HCC) Expected: 11/24/2024, Expires: 02/23/2025 [facility] Comment on above: Expected: 11/24/2024, Expires: Start: 11-24-2024 End: 02-23-2025 Lipid 1996 panel - Serum or Plasma LIPID PANEL, FASTING Lab Routine Hyperlipidemia, unspecified hyperlipidemia type Hypertension, essential Type 2 diabetes mellitus without complication, without long-term current use of insulin (HCC) Expected: 11/24/2024, Expires: 02/23/2025 [facility] Comment on above: Expected: 11/24/2024, Expires: Start: 11-13-2024 Hemoglobin A1c measurement HbA1C [place] [facility] Start: 11-05-[address] [facility] Start: 11-01-2024 End: 11-01-2024 Patient encounter procedure 11/01/2024 11:00 AM EDT Appointment Gastroenterology [address] [id number] Chelsi Cobb MD [address] [address] EUS/Hepatic cirrhosis, unspecified hepatic cirrhosis type, unspecified whether ascites present (HCC) [K74.60]Encounter for screening colonoscopy [Z12.11] Gastroenterology Comment on above: EUS/Hepatic cirrhosis, unspecified hepat ic cirrhosis type, unspecified whether ascites present (HCC) [K74.60]Encounter for screening colonoscopy [Z12.11] Start: 10-20-2024 Complete blood count Hemoglobin/Hematocrit [facility] Start: 10-20-2024 Creatinine measurement Serum Creatinine [facility] Start: 10-20-2024 Hepatitis B screening Urine Albumin:Creatinine Ratio [facility] Start: 10-20-2024 Hepatitis B surface antibody level LDL Cholesterol [facility] Start: 10-17-2024 End: 10-17-2024 Anesthesia consultation 10/17/2024 2:00 PM EDT PAT Pre Anesthesia [address], [place] [id number] 1, Pacc [facility] [address] [place] [address] 11/01DECLINED [email or web address].COL Pre Anesthesia Comment on above: 11/01DECLINED [email or web address].COL Start: 10-01-2024 End: 10-01-2024 Patient encounter procedure 10/01/2024 10:45 AM EDT Appointment Radiology [address] [place] [address] Hepatic cirrhosis, unspecified hepatic cirrhosis type, unspecified whether ascites present (HCC) [K74.60] Radiology Comment on above: Hepatic cirrhosis, unspecified hepatic c irrhosis type, unspecified whether ascites present (HCC) [K74.60] Start: 09-28-2024 End: 12-28-2024 Hepatic function 2000 panel - Serum or Plasma HEPATIC FUNCTION PNL Lab Routine Hepatic cirrhosis, unspecified hepatic cirrhosis type, unspecified whether ascites present (HCC) Expected: 09/28/2024, Expires: 12/28/2024 [facility] Work Phone: Comment on above: Expected: 09/28/2024, Expires: Start: 09-27-2024 End: 09-27-2024 ambulatory 09/27/2024 11:30 AM EDT Results Only [place] [address] [place] [address] Hepatic cirrhosis, unspecified hepatic cirrhosis type, unspecified whether ascites present (HCC) [K74.60] [facility] Comment on above: Hepatic cirrhosis, unspecified hepatic c irrhosis type, unspecified whether ascites present (HCC) [K74.60] Start: 09-26-2024 End: 12-26-2024 [id number] [Mass/volume] in Serum or Plasma ALPHA FETOPROTEIN Lab Routine Hepatic cirrhosis, unspecified hepatic cirrhosis type, unspecified whether ascites present (HCC) Expected: 09/26/2024, Expires: 12/26/2024 [facility] Work Phone: Comment on above: Expected: 09/26/2024, Expires: Start: 09-26-2024 End: 12-26-2024 Ammonia [Moles/volume] in Plasma AMMONIA Lab Routine Hepatic cirrhosis, unspecified hepatic cirrhosis type, unspecified whether ascites present (HCC) Expected: 09/26/2024, Expires: 12/26/2024 [facility] Comment on above: Expected: 09/26/2024, Expires: Start: 09-26-2024 End: 12-26-2024 Carcinoembryonic Ag [Mass/volume] in Serum or Plasma CARCINOEMBRYONIC ANTIGEN Lab Routine Hepatic cirrhosis, unspecified hepatic cirrhosis type, unspecified whether ascites present (HCC) Expected: 09/26/2024, Expires: 12/26/2024 [facility] Comment on above: Expected: 09/26/2024, Expires: Start: 09-26-2024 End: 12-26-2024 CBC W Auto Differential panel - Blood COMPLETE BLOOD COUNT AND DIFFERENTIAL Lab Routine Hepatic cirrhosis, unspecified hepatic cirrhosis type, unspecified whether ascites present (HCC) Expected: 09/26/2024, Expires: 12/26/2024 [facility] Comment on above: Expected: 09/26/2024, Expires: Start: 09-26-2024 End: 12-26-2024 Hepatic function 2000 panel - Serum or Plasma HEPATIC FUNCTION PNL Lab Routine Hepatic cirrhosis, unspecified hepatic cirrhosis type, unspecified whether ascites present (HCC) Expected: 09/26/2024, Expires: 12/26/2024 [facility] Comment on above: Expected: 09/26/2024, Expires: Start: 09-26-2024 End: 09-26-2024 Patient encounter procedure 09/26/2024 11:30 AM EDT Office Visit [facility] [address] [facility] [address] Adria Ansari MD [address] [facility] [place], [place] [id number] other abnormal tumor markers,evaluation for EUS, elevated CA19-9 [facility] Comment on above: other abnormal tumor markers,evaluation for EUS, elevated CA19-9 Start: 09-03-2024 Influenza [facility] Comment on above: Postponed from 11/06/2023 (Declined at t his time) Start: 08-24-2024 End: 08-24-2024 Patient encounter procedure Family [facility] [place] Comment on above: 6 month follow up and labs Start: 08-16-2024 End: 11-15-2024 Comprehensive metabolic 2000 panel - Serum or Plasma COMPREHENSIVE METABOLIC PANEL Lab Routine Hyperlipidemia, unspecified hyperlipidemia type Expected: 08/16/2024, Expires: 11/15/2024 [facility] Comment on above: Expected: 08/16/2024, Expires: Start: 08-16-2024 End: 11-15-2024 Hemoglobin A1c in Blood HEMOGLOBIN A1C Lab Routine Controlled type 2 diabetes mellitus without complication, without long-term current use of insulin (HCC) Expected: 08/16/2024, Expires: 11/15/2024 [facility] Comment on above: Expected: 08/16/2024, Expires: Start: 08-16-2024 Hemoglobin A1c measurement HbA1C [facility] Start: 08-16-2024 End: 11-15-2024 Lipid 1996 panel - Serum or Plasma LIPID PANEL BASIC Lab Routine Hyperlipidemia, unspecified hyperlipidemia type Expected: 08/16/2024, Expires: 11/15/2024 [facility] Comment on above: Expected: 08/16/2024, Expires: Start: 07-08-2024 End: 10-07-2024 CBC W Auto Differential panel - Blood COMPLETE BLOOD COUNT AND DIFFERENTIAL Lab Routine Iron deficiency anemia due to chronic blood loss Expected: 07/08/2024 (Approximate), Expires: 10/07/2024 [facility] Comment on above: Expected: 07/08/2024 (Approximate), Expi res: 10/07/2024 Start: 06-12-2024 End: 06-12-2024 Patient encounter procedure 06/12/2024 10:30 AM EDT Office Visit Family [facility] [address] [place] [address] Jerrod Busby V, DO [address] [place] [address] Dx: Trochanteric bursitis of right hip [M70.61] Family [facility] Comment on above: Dx: Trochanteric bursitis of right hip [ M70.61] Start: 06-08-2024 End: 06-08-2024 Patient encounter procedure 06/08/2024 1:00 PM EDT Office Visit Family [facility] [address] [place] [address] Otoniel King APRN.MORTICIAN INVESTIGATOR [address] [facility] [address] follow up from [facility] for weakness and falls [facility] Comment on above: follow up from [facility] for weakness and fall s Start: 06-05-2024 Referral to service [facility] Start: 06-05-2024 Patient discharge [facility] Start: 06-05-2024 Serum inorganic phosphate measurement [facility] Start: 06-03-2024 End: 06-03-2024 [facility] Start: 06-03-2024 Provision of activity privileges [facility] Start: 06-02-2024 Following clinical pathway protocol [facility] Start: 06-02-2024 Assessment of risk of venous thromboembolism [facility] Start: 06-02-2024 Care regimes management [facility] Start: 06-02-2024 Catheterization of vein [facility] Start: 06-02-2024 Inhalation therapy procedure [facility] Start: 06-02-2024 Insertion of catheter into peripheral vein [facility] Start: 06-02-2024 Measuring intake and output [facility] Start: 06-02-2024 Providing care according to standard [facility] Start: 06-02-2024 Provision of activity privileges [facility] Start: 06-02-2024 Referral to occupational therapist [facility] Start: 06-02-2024 Referral to service [facility] Start: 06-02-2024 End: 06-02-2024 [facility] Start: 06-02-2024 Verification routine [facility] Start: 06-02-2024 Admission procedure [facility] Start: 06-02-2024 Hospital admission, emergency, from emergency room, medical nature [facility] Start: 06-02-2024 [facility] Start: 06-02-2024 Patient referral to dietitian [facility] Start: 06-02-2024 [facility] Start: 05-30-2024 [facility] Start: 05-30-2024 [facility] Start: 05-22-2024 End: 05-22-2024 Patient encounter procedure 05/22/2024 1:20 PM EDT Office Visit [facility] [address] [place] [address] Otoniel King, SILK SCREEN CUTTER.MORTICIAN INVESTIGATOR [address] [place] [address] TCM. [facility] f/u 05/17/24 duodenal ulcer, GI bleed, Flu A. [facility] Comment on above: TCM. [facility] f/u 05/17/24 duodenal ulcer, GI bleed, Flu A. Start: 05-17-2024 Patient discharge [facility] Start: 05-17-2024 End: 05-17-2024 Patient encounter procedure 05/17/2024 10:40 AM EDT Office Visit [facility] [address] [place] [address] Georgie Stallworth, SILK SCREEN CUTTER.MORTICIAN INVESTIGATOR [address] [place] [address] [facility] ER follow up influenza [facility] Comment on above: [facility] ER follow up influenza Start: 05-17-2024 Application of intermittent pneumatic compression device [facility] Start: 05-17-2024 Referral to service [facility] Start: 05-16-2024 [facility] Start: 05-16-2024 Referral to occupational therapist [facility] Start: 05-16-2024 Respiratory secretion precautions [facility] Start: 05-15-2024 Following clinical pathway protocol [facility] Start: 05-15-2024 Aspiration precautions [facility] Start: 05-15-2024 Assessment of risk of venous thromboembolism [facility] Start: 05-15-2024 Care regimes management [facility] Start: 05-15-2024 Documentation procedure [facility] Start: 05-15-2024 Insertion of catheter into peripheral vein [facility] Start: 05-15-2024 Measuring intake and output [facility] Start: 05-15-2024 Notification of physician [facility] Start: 05-15-2024 Oxygen therapy [facility] Start: 05-15-2024 Providing care according to standard [facility] Start: 05-15-2024 Provision of activity privileges [facility] Start: 05-15-2024 Referral to gastroenterology service [facility] Start: 05-15-2024 Referral to service [facility] Start: 05-15-2024 End: 05-15-2024 [facility] Start: 05-15-2024 Urinalysis complete panel - Urine [facility] Start: 05-15-2024 Verification routine [facility] Start: 05-15-2024 Admission procedure [facility] Start: 05-15-2024 Hospital admission, emergency, from emergency room, medical nature [facility] Start: 05-14-2024 [facility] Start: 05-13-2024 [facility] Start: 05-13-2024 Emergency dept visit high severity&threat funcj [facility] Start: 05-13-2024 Iv infusion hydration each additional hour [facility] Start: 05-13-2024 Ther proph/dx njx iv push single/1st sbst/drug [facility] Start: 05-09-2024 Glaucoma screening Dilated Retinal Exam [facility] Start: 04-23-2024 End: 04-23-2024 Patient encounter procedure 04/23/2024 1:00 PM EST Office Visit [facility] [address] [place] [address] Otoniel King, JOY.MORTICIAN INVESTIGATOR [address] [place] [address] follow up [facility] Comment on above: follow up Start: 04-22-2024 Hemoglobin A1c measurement HbA1C [facility] Start: 03-16-2024 End: 03-16-2024 Patient encounter procedure 03/16/2024 2:00 PM EST Office Visit Urology [address] [place] [address] Sydnie Olvera, SILK SCREEN CUTTER.MORTICIAN INVESTIGATOR [address] [place] [address] Recurrent UTI (urinary tract infection) [N39.0] Urology Comment on above: Recurrent UTI (urinary tract infection) [N39.0] Start: 03-07-2024 Advance Directive Discussion Advance Directive Discussion [facility] Start: 03-07-2024 Medicare Advantage Annual Wellness Visit Medicare Advantage Annual Wellness Visit [facility] Start: 02-17-2024 End: 05-18-2024 Calcium.ionized [Moles/volume] in Blood CALCIUM, IONIZED Lab Routine Serum calcium elevated Expected: 02/17/2024, Expires: 05/18/2024 [facility] Work Phone: Comment on above: Expected: 02/17/2024, Expires: Start: 02-17-2024 End: 05-18-2024 Comprehensive metabolic 2000 panel - Serum or Plasma COMPREHENSIVE METABOLIC PANEL Lab Routine Serum calcium elevated Expected: 02/17/2024, Expires: 05/18/2024 [facility] Comment on above: Expected: 02/17/2024, Expires: Start: 02-17-2024 End: 05-18-2024 Parathyrin.intact [Mass/volume] in Serum or Plasma PTH INTACT Lab Routine Serum calcium elevated Expected: 02/17/2024, Expires: 05/18/2024 [facility] Comment on above: Expected: 02/17/2024, Expires: Start: 02-16-2024 End: 05-17-2024 Comprehensive metabolic 2000 panel - Serum or Plasma [facility] Comment on above: Expected: 02/16/2024, Expires: Start: 02-16-2024 End: 05-17-2024 Hemoglobin A1c in Blood [facility] Work Phone: Comment on above: Expected: 02/16/2024, Expires: Start: 02-16-2024 End: 05-17-2024 Lipid 1996 panel - Serum or Plasma [facility] Comment on above: Expected: 02/16/2024, Expires: Start: 02-16-2024 End: 02-16-2024 Patient encounter procedure 02/16/2024 11:00 AM EST Office Visit [facility] [address] [place] [address] Georgie Stallworth APRN.MORTICIAN INVESTIGATOR [address] [place] [address] Annual [employer] Wellness, flu vaccine [facility] Comment on above: Annual [employer] Wellness, flu vaccine Start: 02-01-2024 End: 02-01-2024 Patient encounter procedure 02/01/2024 11:40 AM EST Office Visit [facility] [address] [place] [address] Adarsh Steele MD [address] [place] [id number] 1 year device follow up [facility] Comment on above: 1 year device follow up Start: 01-26-2024 Complete blood count Hemoglobin/Hematocrit [facility] Start: 01-26-2024 Creatinine measurement Serum Creatinine [facility] Start: 01-26-2024 Hemoglobin/Hematocrit Hemoglobin/Hematocrit [facility] Start: 01-26-2024 Serum Creatinine Serum Creatinine [facility] Start: 01-22-2024 Annual PCP Team Chronic Disease Visit Annual PCP Team Chronic Disease Visit [facility] Start: 01-18-2024 BP Controlled (<130/80) BP Controlled (<130/80) [facility] Start: 01-06-2024 Annual PCP Team Chronic Disease Visit Annual PCP Team Chronic Disease Visit [facility] Start: 12-31-[address] [facility] Start: 12-31-2023 Screening for malignant neoplasm of breast Mammogram Screening [facility] Start: 11-20-2023 Annual PCP Team Chronic Disease Visit Annual PCP Team Chronic Disease Visit [facility] Start: 11-20-2023 BP Controlled (<130/80) BP Controlled (<130/80) [facility] Start: 11-16-2023 BP CONTROLLED (<130/80) BP CONTROLLED (<130/80) [facility] Start: 11-06-2023 COVID-19 Vaccine () COVID-19 Vaccine () [facility] Start: 11-06-2023 Covid-19 Vaccine ( season) Covid-19 Vaccine ( season) [facility] Start: 11-06-2023 Covid-19 Vaccine ( season) Covid-19 Vaccine ( season) [facility] Start: 11-06-2023 Influenza vaccination [facility] Start: 10-29-2023 BP CONTROLLED (<130/80) BP CONTROLLED (<130/80) [facility] Start: 10-21-2023 End: 01-20-2024 CBC W Auto Differential panel - Blood [facility] Comment on above: Expected: 10/21/2023, Expires: Start: 10-21-2023 End: 01-20-2024 Comprehensive metabolic 2000 panel - Serum or Plasma [facility] Comment on above: Expected: 10/21/2023, Expires: 4 Start: 10-21-2023 End: 01-20-2024 Hemoglobin A1c in Blood [facility] Comment on above: Expected: 10/21/2023, Expires: Start: 10-21-2023 End: 01-20-2024 LIPID PANEL, NONFASTING [facility] Comment on above: Expected: 10/21/2023, Expires: 4 Start: 10-21-2023 End: 01-20-2024 Magnesium [Mass/volume] in Serum or Plasma [facility] Comment on above: Expected: 10/21/2023, Expires: 4 Start: 10-21-2023 End: 01-20-2024 Microalbumin/Creatinine [Mass Ratio] in Urine [facility] Comment on above: Expected: 10/21/2023, Expires: Start: 10-21-2023 End: 01-20-2024 Thyrotropin [Units/volume] in Serum or Plasma [facility] Comment on above: Expected: 10/21/2023, Expires: 4 Start: 10-21-2023 End: 11-19-2024 XR Abdomen Single view [facility] Work Phone: Comment on above: Expected: 10/21/2023, Expires: 5 Start: 10-21-2023 End: 10-21-2023 Patient encounter procedure 10/21/2023 1:20 PM EDT Office Visit [facility] [address] [place] [address] Areli Escobar APRN.MORTICIAN INVESTIGATOR [address] [place] [address] 2 week f/u [facility] Comment on above: 2 week f/u Start: 10-10-2023 End: 01-09-2024 Bacteria identified in Urine by Culture URINE CULTURE Microbiology Routine Recurrent UTI (urinary tract infection) Expected: 10/10/2023, Expires: 01/09/2024 [facility] Work Phone: Comment on above: Expected: 10/10/2023, Expires: 4 Start: 09-09-2023 Tetanus vaccination [facility] Start: 09-09-2023 Urine microalbumin profile [place] [facility] Start: 08-11-2023 ANNUAL PCP TEAM CHRONIC DISEASE VISIT ANNUAL PCP TEAM CHRONIC DISEASE VISIT [facility] Start: 08-11-2023 BP CONTROLLED (<130/80) BP CONTROLLED (<130/80) [facility] Start: 08-11-2023 HEMOGLOBIN/HEMATOCRIT HEMOGLOBIN/HEMATOCRIT [facility] Start: 08-07-2023 Hepatitis B surface antibody level LDL CHOLESTEROL [facility] Start: 07-27-2023 SERUM CREATININE SERUM CREATININE [facility] Start: 07-16-2023 [facility] Start: 05-08-2023 Respiratory Syncytial Virus Immunization: Risk, 60-74 Risk, or 75+ (1 - 1-dose 75+ series) Respiratory Syncytial Virus Immunization: Risk, 60-74 Risk, or 75+ (1 - 1-dose 75+ series) [facility] Start: 05-08-2023 RSV Vaccine (1 - 1-dose 75+ series) RSV Vaccine (1 - 1-dose 75+ series) [facility] Start: 03-07-2023 Advance Directive Discussion Advance Directive Discussion [facility] Start: 03-07-2023 Behavioral Health Screening Behavioral Health Screening [facility] Start: 03-07-2023 Depression Assessment Depression Assessment 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 Expected: 02/18/2023 (Approximate), Expires: 05/20/2023 [facility] Work Phone: Comment on above: Expected: 02/18/2023 (Approximate), Expi res: 05/20/2023 Start: 02-18-2023 End: 05-20-2023 Comprehensive metabolic 2000 panel - Serum or Plasma COMP METABOLIC PANEL Lab Routine Dyslipidemia associated with type 2 diabetes mellitus (HCC) Expected: 02/18/2023 (Approximate), Expires: 05/20/2023 [facility] Work Phone: Comment on above: Expected: 02/18/2023 (Approximate), Expi res: 05/20/2023 Start: 02-18-2023 End: 05-20-2023 Lipid 1996 panel - Serum or Plasma LIPID PANEL BASIC Lab Routine Dyslipidemia associated with type 2 diabetes mellitus (HCC) Expected: 02/18/2023 (Approximate), Expires: 05/20/2023 [facility] Work Phone: Comment on above: Expected: 02/18/2023 (Approximate), Expi res: 05/20/2023 Start: 02-09-2023 End: 04-11-2023 ALBUMIN/CREAT RATIO RND UR ALBUMIN/CREAT RATIO RND UR Lab Routine Type 2 diabetes mellitus without complication, without long-term current use of insulin (HCC) Expected: 02/09/2023 (Approximate), Expires: 04/11/2023 [facility] Work Phone: Comment on above: Expected: 02/09/2023 (Approximate), Expi res: 04/11/2023 Start: 02-09-2023 ANNUAL PCP TEAM CHRONIC DISEASE VISIT ANNUAL PCP TEAM CHRONIC DISEASE VISIT [facility] Start: 02-09-2023 End: 04-11-2023 CBC W Auto Differential panel - Blood CBC + DIFF Lab Routine Fatigue, unspecified type Other cirrhosis of liver (HCC) Expected: 02/09/2023 (Approximate), Expires: 04/11/2023 [facility] Work Phone: Comment on above: Expected: 02/09/2023 (Approximate), Expi res: 04/11/2023 Start: 02-09-2023 End: 04-11-2023 Comprehensive metabolic 2000 panel - Serum or Plasma COMP METABOLIC PANEL Lab Routine Hyperlipidemia, mixed Type 2 diabetes mellitus without complication, without long-term current use of insulin (HCC) Expected: 02/09/2023 (Approximate), Expires: 04/11/2023 [facility] Work Phone: Comment on above: Expected: 02/09/2023 (Approximate), Expi res: 04/11/2023 Start: 02-09-2023 End: 04-11-2023 Hemoglobin A1c in Blood HGB A1C Lab Routine Type 2 diabetes mellitus without complication, without long-term current use of insulin (HCC) Expected: 02/09/2023 (Approximate), Expires: 04/11/2023 [facility] Work Phone: Comment on above: Expected: 02/09/2023 (Approximate), Expi res: 04/11/2023 Start: 02-09-2023 End: 04-11-2023 Lipid 1996 panel - Serum or Plasma LIPID PANEL BASIC Lab Routine Hyperlipidemia, mixed Expected: 02/09/2023 (Approximate), Expires: 04/11/2023 [facility] Work Phone: Comment on above: Expected: 02/09/2023 (Approximate), Expi res: 04/11/2023 Start: 01-28-2023 [facility] Start: 01-26-2023 Hemoglobin A1c measurement HbA1C [facility] Start: 01-26-2023 Hemoglobin A1c/Hemoglobin.total in Blood HBA1C [facility] Start: 01-21-2023 [facility] Start: 01-20-2023 Hepatitis B surface antibody level LDL CHOLESTEROL [facility] Start: 01-15-2023 Patient discharge [facility] Start: 01-15-2023 Referral to occupational therapist [facility] Start: 01-15-2023 Referral to service [facility] Start: 01-15-2023 Care regimes management [facility] Start: 01-15-2023 Insertion of catheter into peripheral vein [facility] Start: 01-15-2023 Measuring intake and output [facility] Start: 01-15-2023 Notification of physician [facility] Start: 01-15-2023 Oxygen therapy [facility] Start: 01-15-2023 Providing care according to standard [facility] Start: 01-15-2023 Provision of activity privileges [facility] Start: 01-15-2023 [facility] Start: 01-14-2023 End: 01-14-2023 Following clinical pathway protocol [facility] Start: 01-14-2023 Referral to secretarial stenographer [facility] Start: 01-14-2023 End: 01-14-2023 Admission procedure [facility] Start: 01-14-2023 Verification routine [facility] Start: 01-14-2023 Hospital admission, emergency, from emergency room, medical nature [facility] Start: 01-14-2023 Electrocardiographic procedure [facility] Start: 01-14-2023 [facility] Start: 12-16-[address] [facility] Start: 11-19-2022 End: 01-19-2023 THYROID PEROXIDASE ANTIBODY BLOOD [facility] Work Phone: Comment on above: Expected: 11/19/2022, Expires: 3 Start: 11-19-2022 End: 01-19-2023 Thyrotropin [Units/volume] in Serum or Plasma [facility] Work Phone: Comment on above: Expected: 11/19/2022, Expires: 3 Start: 11-19-2022 End: 01-19-2023 Thyroxine (T4) free [Mass/volume] in Serum or Plasma [facility] Work Phone: Comment on above: Expected: 11/19/2022, Expires: 3 Start: 11-19-2022 End: 01-19-2023 Triiodothyronine (T3) [Mass/volume] in Serum or Plasma [facility] Work Phone: Comment on above: Expected: 11/19/2022, Expires: 3 Start: 11-15-2022 End: 01-15-2023 Bacteria identified in Urine by Culture [facility] Work Phone: Comment on above: Expected: 11/15/2022, Expires: 3 Start: 11-05-2022 Covid-19 Vaccine () Covid-19 Vaccine () [facility] Start: 11-05-2022 Covid-19 Vaccine () Covid-19 Vaccine () [facility] Start: 11-05-[address] [facility] Start: 09-15-2022 Glaucoma screening Dilated Retinal Exam [facility] Start: 09-15-2022 Hepatitis C antibody, confirmatory test DILATED RETINAL EXAM [facility] Start: 08-14-2022 [facility] Start: 08-10-2022 End: 10-10-2022 DWAYNE BY IFA SCREEN [facility] Work Phone: Comment on above: Expected: 08/10/2022 (Approximate), Expi res: 10/10/2022 Start: 07-20-2022 Hemoglobin A1c/Hemoglobin.total in Blood HBA1C [facility] Start: 04-15-2022 Hepatitis B screening URINE ALBUMIN:CREATININE RATIO [facility] Start: 03-07-2022 ADVANCE DIRECTIVE DISCUSSION ADVANCE DIRECTIVE DISCUSSION [facility] Start: 03-07-2022 DEPRESSION ASSESSMENT DEPRESSION ASSESSMENT [facility] Start: 11-05-2021 Influenza vaccination Sequential Influenza Vaccine (#1) [facility] Start: 07-14-2021 COVID-19 VACCINE (4 - Booster for Pfizer series) COVID-19 VACCINE (4 - Booster for Pfizer series) [facility] Start: 07-14-2021 COVID-19 VACCINE (4 - Pfizer series) COVID-19 VACCINE (4 - Pfizer series) [facility] Start: 06-30-2020 Hemoglobin A1c measurement A1C [facility] Start: 05-21-2020 End: 05-21-2020 Office Visit 05/21/2020 Office Visit Cardiology Vic Christie MD [address] [facility] [address] [place] [address] [phone] [facility] Office Start: 11-06-2019 Influenza vaccination given Sequential Influenza Vaccine (#1) [facility] Start: 08-01-2019 CLASS III : OFFICE VISIT CLASS III : OFFICE VISIT [facility] Start: 08-01-2019 End: 08-01-2019 Office Visit 08/01/2019 Office Visit Cardiology Vic Christie MD [address] [address] [place] [address] [phone] [facility] Office Start: 02-06-2019 Hospital Encounter 02/06/2019 Hospital Encounter Cardiology Vic Christie MD [address] [facility] [address] [place] [address] [phone] [facility] Start: 02-02-2019 CLASS III : OFFICE VISIT CLASS III : OFFICE VISIT [facility] Start: 01-31-2019 End: 01-31-2019 Office Visit 01/31/2019 Office Visit Cardiology Vic Christie MD [address] [facility] [address] [place] [address] [phone] [facility] Office Start: 11-05-2018 Influenza vaccination given [facility] Start: 06-28-2018 CLASS III : OFFICE VISIT CLASS III : OFFICE VISIT [facility] Start: 01-09-2018 End: 01-09-2018 Ambulatory 01/09/2018 Appointment Cardiology Vic Christie MD [address] [place] [address] [phone] [facility] Start: 11-05-2017 Influenza vaccination SEQUENTIAL INFLUENZA VACCINE (#1) [facility] Start: 10-04-2017 CLASS III : OFFICE VISIT CLASS III : OFFICE VISIT [facility] Work Phone: Start: 05-13-2017 Ambulatory 05/13/2017 Scanned Document [facility] Start: 05-05-2017 End: 04-06-2018 Carotid Duplex Carotid Duplex Routine Bilateral carotid artery stenosis Cerebrovascular accident (CVA), unspecified mechanism (HCC) Expected: 05/05/2017, Expires: 04/06/2018 [facility] Work Phone: Start: 04-08-2017 CLASS III : OFFICE VISIT CLASS III : OFFICE VISIT [facility] Work Phone: Start: 11-05-2016 Influenza vaccination SEQUENTIAL INFLUENZA VACCINE (#1) [facility] Work Phone: Start: 11-05-2016 SEQUENTIAL INFLUENZA VACCINE (#1) SEQUENTIAL INFLUENZA VACCINE (#1) [facility] Work Phone: Start: 03-23-2015 HbA1c [facility] Work Phone: Start: 03-23-2015 HEMOGLOBIN A1C HEMOGLOBIN A1C [facility] Work Phone: Start: 03-23-2015 Hemoglobin A1c measurement A1C [facility] Start: 12-21-2014 CLASS III : CREATININE CLASS III : CREATININE [facility] Work Phone: Start: 12-21-2014 Creatinine measurement CLASS III : CREATININE [facility] Start: 2013 Fall risk assessment Falls Risk Assessment [facility] Start: 2013 Pneumococcal vaccination PNEUMOCOCCAL VACCINE AGE 65+ (1 of 2 - PCV13) [facility] Work Phone: Start: 2013 PNEUMOCOCCAL VACCINE AGE 65+ (1 of 2 - PCV13) PNEUMOCOCCAL VACCINE AGE 65+ (1 of 2 - PCV13) [facility] Work Phone: Start: 2008 HEPATITIS B (1 of 3 - Risk 3-dose series) HEPATITIS B (1 of 3 - Risk 3-dose series) [facility] Start: 2008 Hepatitis B Vaccine (1 of 3 - Risk 3-dose series) Hepatitis B Vaccine (1 of 3 - Risk 3-dose series) [facility] Start: 2008 RSV Vaccine (1 - 1-dose 60+ series) RSV Vaccine (1 - 1-dose 60+ series) [facility] Start: 2008 Zoster vacc, sc ZOSTER VACCINE [facility] Work Phone: Start: 1998 Administration of herpes zoster vaccine Zoster Vaccines (1 of 2) [facility] Start: 1998 Pneumococcal Vaccine: Age 50+ (1 of 1 - PCV) Pneumococcal Vaccine: Age 50+ (1 of 1 - PCV) [facility] Start: 1998 Screening for malignant neoplasm of colon [facility] Start: 1998 SHINGRIX VACCINE (1 of 2) SHINGRIX VACCINE (1 of 2) [facility] Start: 1998 ZOSTER VACCINES (1 of 2) ZOSTER VACCINES (1 of 2) [facility] Start: 1993 COLOGUARD (FIT-DNA) COLOGUARD (FIT-DNA) [facility] Start: [address] [facility] Start: 1993 COLORECTAL CANCER SCREENING COLORECTAL CANCER SCREENING [facility] Start: [address] [facility] Start: 1993 FECAL OCCULT BLOOD FECAL OCCULT BLOOD [facility] Start: 1993 Screening for malignant neoplasm of colon [facility] Start: [address] [facility] Start: 1988 Screening for malignant neoplasm of breast Mammogram [facility] Start: 1988 Screening mammography Mammogram [facility] Start: 05-08-1967 HEPATITIS A (1 of 2 - Risk 2-dose series) HEPATITIS A (1 of 2 - Risk 2-dose series) [facility] Start: 05-08-1967 Hepatitis A Vaccine (1 of 2 - Risk 2-dose series) Hepatitis A Vaccine (1 of 2 - Risk 2-dose series) [facility] Start: 1966 Anxiety Screening Anxiety Screening [facility] Start: 1966 BP CONTROLLED (<130/80) BP CONTROLLED (<130/80) [facility] Start: 1966 Depression Screening Depression Screening [facility] Start: 1966 Hepatitis C antibody, confirmatory test Hepatitis C Screening [facility] Start: 1966 Hepatitis C screening Hepatitis C Screening [facility] Start: 1964 COVID-19 Vaccine (1 of 2) COVID-19 Vaccine (1 of 2) [facility] Start: 1960 Adolescent depression screening assessment Depression Screening (PHQ9) [facility] Start: 1960 COVID-19 Vaccine (1) COVID-19 Vaccine (1) [facility] Start: 1960 Depression screening using PHQ-9 (Patient Health Questionnaire 9) score [facility] Start: 1958 3 comp foot exam completed DIABETIC FOOT EXAM [facility] Start: 1958 Diabetic foot examination (regime/therapy) [facility] Start: 1958 FOOT EXAM FOOT EXAM [facility] Work Phone: Start: 1958 Glaucoma screening Ophthalmology Exam [facility] Start: 1958 Microalbumin measurement, urine, quantitative Urine Microalbumin [facility] Start: 1958 Ophthalmic examination and evaluation OPHTHALMOLOGY EXAM [facility] Work Phone: Start: 1958 OPHTHALMOLOGY EXAM OPHTHALMOLOGY EXAM [facility] Work Phone: Start: 1958 URINE MICROALBUMIN URINE MICROALBUMIN [facility] Work Phone: Start: 1958 Urine screening for protein Urine Microalbumin [facility] Start: 1958 Urine, microalbumin URINE MICROALBUMIN [facility] Work Phone: Start: 1954 Pneumococcal Vaccine: 65+ (1 - PCV) Pneumococcal Vaccine: 65+ (1 - PCV) [facility] Start: 1954 Pneumococcal Vaccine: 65+ (1 of 2 - PCV) Pneumococcal Vaccine: 65+ (1 of 2 - PCV) [facility] Start: 1954 Pneumococcal Vaccine: Age 65+ (1 - PCV) Pneumococcal Vaccine: Age 65+ (1 - PCV) [facility] Start: 1954 Pneumococcal Vaccine: Age 65+ (1 of 2 - PPSV23) Pneumococcal Vaccine: Age 65+ (1 of 2 - PPSV23) [facility] Start: 1954 PNEUMOCOCCAL: 65+ (1 - PCV) PNEUMOCOCCAL: 65+ (1 - PCV) [facility] Start: 05-08-1951 History and physical examination, annual for health maintenance Wellness Visit [facility] Start: 1949 HEPATITIS A (1 of 2 - Risk 2-dose series) HEPATITIS A (1 of 2 - Risk 2-dose series) [facility] Start: 1948 COVID-19 Vaccine (#1) COVID-19 Vaccine (#1) [facility] Start: 1948 CLASS III : CREATININE CLASS III : CREATININE [facility] Work Phone: Start: 1948 CLASS III : EKG CLASS III : EKG [facility] Start: 1948 CLASS III : MAGNESIUM CLASS III : MAGNESIUM [facility] Work Phone: Start: 1948 CLASS III : POTASSIUM CLASS III : POTASSIUM [facility] Start: 1948 Class III: Magnesium Class III: Magnesium [facility] Start: 1948 Colonoscopy COLONOSCOPY [facility] Work Phone: Start: 1948 DEXA SCAN DEXA SCAN [facility] Work Phone: Start: 1948 Fall risk assessment Falls Risk Assessment [facility] Start: 1948 Hepatitis C antibody, confirmatory test HEPATITIS C SCREENING [facility] Start: 1948 HEPATITIS C SCREENING HEPATITIS C SCREENING [facility] Work Phone: Start: 1948 Protein mass conc Mammogram [facility] Start: 1948 Screening colonoscopy COLONOSCOPY [facility] Work Phone: Start: 1948 Screening for malignant neoplasm of colon [facility] Start: 1948 Screening for osteoporosis DEXA SCAN [facility] Start: 1948 Screening mammography Mammogram [facility] Start: 1948 TETANUS EVERY 10 YR TETANUS EVERY 10 YR [facility] Work Phone: Start: 1948 Tetanus vaccination TETANUS EVERY 10 YR [facility] Work Phone: Acute hepatitis 2000 panel - Serum [facility] [id number]. tumor marker [Units/volume] in Serum or Plasma [facility] Anion gap in Serum o r Plasma [facility] Anion gap in Serum o r Plasma [facility] Anion gap in Serum o r Plasma [facility] Anion gap in Serum o r Plasma [facility] Bacteria identified in Urine by Culture URINE CULTURE Microbiology Routine Acute cystitis with hematuria 04/05/2022 7:13 PM [facility] Work Phone: Bacteria identified in Urine by Culture URINE CULTURE Microbiology Routine Burning with urination 07/12/2022 3:02 PM EDT [facility] Work Phone: Bacteria identified in Urine by Culture URINE CULTURE Microbiology Routine Urgency of urination Ordered: 08/24/2023 [facility] Work Phone: Comment on above: Ordered: 08/24/2023 Bacteria identified in Urine by Culture URINE CULTURE Microbiology Routine Dysuria 10/07/2023 2:26 PM EDT [facility] Work Phone: Bacteria identified in Urine by Culture URINE CULTURE Microbiology Routine Dysuria 11/24/2023 3:46 PM EDT [facility] [facility] Work Phone: Bacteria identified in Urine by Culture BACTERIAL CULTURE, URINE Microbiology Routine Burning with urination Ordered: 11/09/2024 [facility] Work Phone: Comment on above: Ordered: 11/09/2024 Bilirubin.direct [Mass/volume] in Serum or Plasma [facility] BUN/Creatinine ratio [facility] BUN/Creatinine ratio [facility] BUN/Creatinine ratio [facility] BUN/Creatinine ratio [facility] C reactive protein [Mass/volume] in Serum or Plasma [facility] Calcium [Mass/volume ] in Serum or Plasma [facility] Calcium [Mass/volume ] in Serum or Plasma [facility] Calcium [Mass/volume ] in Serum or Plasma [facility] Calcium [Mass/volume ] in Serum or Plasma [facility] Cancer Ag 19-9 [Units/volume] in Serum or Plasma [facility] Carbon dioxide, tota l [Moles/volume] in Central venous blood [facility] Carbon dioxide, tota l [Moles/volume] in Central venous blood [facility] Carbon dioxide, tota l [Moles/volume] in Central venous blood [facility] Carbon dioxide, tota l [Moles/volume] in Central venous blood [facility] Carcinoembryonic Ag [Mass/volume] in Serum or Plasma [facility] Cardiac event recording [facility] End: 08-02-2018 Carotid artery doppler assessment Carotid Duplex Vascular Ultrasound Routine Carotid stenosis, bilateral Once for 1 Occurrences starting 08/02/2018 until 08/02/2018 [facility] Comment on above: Once for 1 Occurrences starting 08/03/19 19 until 08/02/2018 Carotid artery doppl er assessment [facility] End: 04-02-2020 Carotid artery doppler assessment Carotid Duplex Vascular Ultrasound Routine Bilateral carotid artery stenosis 1 Occurrences starting 01/31/2019 until 04/02/2020 [facility] Comment on above: 1 Occurrences starting 01/31/2019 until 04/02/2020 End: 02-06-2019 Carotid artery doppler assessment Carotid Duplex Vascular Ultrasound Routine Bilateral carotid artery stenosis Once for 1 Occurrences starting 02/06/2019 until 02/06/2019 [facility] Comment on above: Once for 1 Occurrences starting 02/07/20 19 until 02/06/2019 End: 12-10-2017 Carotid Duplex Carotid Duplex Routine Bilateral carotid artery stenosis Cerebrovascular accident (CVA), unspecified mechanism (HCC) 1 Occurrences starting 10/10/2016 until 12/10/2017 [facility] Work Phone: CBC W Auto Different ial panel - Blood [facility] Ceruloplasmin [Mass/ volume] in Serum or Plasma [facility] COLOGUARD COLOGUARD Lab Ro utine Screening for colon cancer Ordered: 05/11/2022 [facility] Work Phone: Comment on above: Ordered: 05/11/2022 Comprehensive metabo lic 2000 panel - Serum or Plasma [facility] Copper [Moles/volume ] in Serum or Plasma [facility] Creatinine [Mass/vol ume] in Serum or Plasma [facility] Creatinine [Mass/vol ume] in Serum or Plasma [facility] Creatinine [Mass/vol ume] in Serum or Plasma [facility] Creatinine [Mass/vol ume] in Serum or Plasma [facility] End: 09-11-2023 Ct abdomen & pelvis w/contrast material CT ABD/PEL W IVCON Radiology Routine Renal carcinoma, right (HCC) Other cirrhosis of liver (HCC) 1 Occurrences starting 08/12/2022 until 09/11/2023 [facility] Work Phone: Comment on above: 1 Occurrences starting 08/12/2022 until 09/11/2023 End: 02-04-[address]24 CT BRAIN WO IVCON CT BRAIN WO IVCON Radiology STAT Injury of head, initial encounter 1 Occurrences starting 01/05/2023 until 02/04/2024 [facility] Work Phone: Comment on above: 1 Occurrences starting 01/05/2023 until 02/04/2024 Cytoplasmic ANCA Screen [facility] End: 09-26-2025 EGD - THERAPEUTIC, EUS, OR TUBE INTERVENTIONS EGD - THERAPEUTIC, EUS, OR TUBE INTERVENTIONS Endoscopy Routine Hepatic cirrhosis, unspecified hepatic cirrhosis type, unspecified whether ascites present (HCC) 1 Occurrences starting 09/26/2024 until 09/26/2025 [facility] Comment on above: 1 Occurrences starting 09/26/2024 until 09/26/2025 Erythrocyte mean corpuscular volume determination [facility] Erythrocyte mean corpuscular volume determination [facility] Erythrocyte mean corpuscular volume determination [facility] Erythrocyte mean corpuscular volume determination [facility] Ferritin [Mass/volum e] in Serum or Plasma [facility] Gamma glutamyl trans ferase measurement [facility] Glucose [Mass/volume ] in Serum or Plasma [facility] Glucose [Mass/volume ] in Serum or Plasma [facility] Glucose [Mass/volume ] in Serum or Plasma [facility] Glucose [Mass/volume ] in Serum or Plasma [facility] Hematocrit [Volume Fraction] of Blood [facility] Hematocrit [Volume Fraction] of Blood [facility] Hematocrit [Volume Fraction] of Blood [facility] Hematocrit [Volume Fraction] of Blood [facility] Hemoglobin [Mass/vol ume] in Blood [facility] Hemoglobin [Mass/vol ume] in Blood [facility] Hemoglobin [Mass/vol ume] in Blood [facility] Hemoglobin [Mass/vol ume] in Blood [facility] Hemoglobin A1c/Hemoglobin.total in Blood [facility] Imaging of liver [facility] Immunoglobulin measurement [facility] End: 02-01-2020 INR Coag (PPP) [Relative time] Protime-INR Lab Routine Paroxysmal atrial fibrillation (HCC) 1 Occurrences starting 01/31/2019 until 02/01/2020 [facility] Comment on above: 1 Occurrences starting 01/31/2019 until 02/01/2020 Iron and Iron bindin g capacity panel - Serum or Plasma [facility] Lactate dehydrogenas e measurement [facility] Leukocytes [#/volume ] in Blood [facility] Leukocytes [#/volume ] in Blood [facility] Leukocytes [#/volume ] in Blood [facility] Leukocytes [#/volume ] in Blood [facility] Lipid 1996 panel - S payal or Plasma [facility] Magnesium measurement [facility] Magnesium measurement [facility] Mean corpuscular hem oglobin concentration determination [facility] Mean corpuscular hem oglobin concentration determination [facility] Mean corpuscular hem oglobin concentration determination [facility] Mean corpuscular hem oglobin concentration determination [facility] Mean corpuscular hem oglobin determination [facility] Mean corpuscular hem oglobin determination [facility] Mean corpuscular hem oglobin determination [facility] Mean corpuscular hem oglobin determination [facility] Measurement of renal function [facility] Measurement of renal function [facility] Measurement of renal function [facility] Measurement of renal function [facility] Mitochondria Ab [Pre sence] in Serum [facility] Neutrophil count [facility] Neutrophil count [facility] Neutrophil count [facility] Neutrophil count [facility] Neutrophil percent differential count [facility] Neutrophil percent differential count [facility] Neutrophil percent differential count [facility] Neutrophil percent differential count [facility] Patient Education [facility] Work Phone: Patient referral [facility] Work Phone: Platelets [#/volume] in Blood [facility] Platelets [#/volume] in Blood [facility] Platelets [#/volume] in Blood [facility] Platelets [#/volume] in Blood [facility] Potassium measurement [facility] Potassium measurement [facility] Potassium measurement [facility] Potassium measurement [facility] Procedure [facility] Prothrombin time [facility] End: 07-12-2023 PT panel - Platelet poor plasma by Coagulation assay PROTHROMBIN TIME/PT Lab Routine Atrial fibrillation, unspecified type (HCC) Encounter for monitoring Coumadin therapy Once per week for 99 Occurrences starting 07/12/2022 until 07/12/2023 [facility] Work Phone: Comment on above: Once per week for 99 Occurrences startin g 07/12/2022 until 07/12/2023 End: 11-25-2023 PT panel - Platelet poor plasma by Coagulation assay PROTHROMBIN TIME/PT Lab 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 99 Occurrences starting 11/24/2022 until 11/25/2023 [facility] Work Phone: Comment on above: 99 Occurrences starting 11/24/2022 until 11/25/2023 Red blood cell count [facility] Red blood cell count [facility] Red blood cell count [facility] Red blood cell count [facility] Red cell distributio n width determination [facility] Red cell distributio n width determination [facility] Red cell distributio n width determination [facility] Red cell distributio n width determination [facility] End: 09-26-2025 Screening colonoscopy COLONOSCOPY SCREENING Endoscopy Routine Hepatic cirrhosis, unspecified hepatic cirrhosis type, unspecified whether ascites present (HCC) Encounter for screening colonoscopy 1 Occurrences starting 09/26/2024 until 09/26/2025 [facility] Comment on above: 1 Occurrences starting 09/26/2024 until 09/26/2025 Serum chloride measurement [facility] Serum chloride measurement [facility] Serum chloride measurement [facility] Serum chloride measurement [facility] Serum immunofixation [facility] Serum inorganic phos phate measurement [facility] Smooth muscle Ab [Pr esence] in Serum [facility] Sodium measurement [facility] Sodium measurement [facility] Sodium measurement [facility] Sodium measurement [facility] T4 free measurement [facility] Thyroid stimulating hormone measurement [facility] Tissue Pathology bio psy report [facility] Work Phone: Comment on above: Release Upon Ordering for 1 Occurrences starting 11/01/2024, 1 completed Troponin T.cardiac [Mass/volume] in Serum or Plasma by High sensitivity method [facility] Urea nitrogen [Mass/ volume] in Serum or Plasma [facility] Urea nitrogen [Mass/ volume] in Serum or Plasma [facility] Urea nitrogen [Mass/ volume] in Serum or Plasma [facility] Urea nitrogen [Mass/ volume] in Serum or Plasma [facility] Urine culture [facility] End: 10-26-2025 US Abdomen US ASCITES SURVEY Radiology Routine Hepatic cirrhosis, unspecified hepatic cirrhosis type, unspecified whether ascites present (HCC) 1 Occurrences starting 09/26/2024 until 10/26/2025 [facility] Comment on above: 1 Occurrences starting 09/26/2024 until 10/26/2025 [facility] End: 09-11-2023 Us soft tissue head & neck real time imge docm US THYROID/PARATHYROID Radiology Routine History of thyroid nodule 1 Occurrences starting 08/12/2022 until 09/11/2023 [facility] Work Phone: Comment on above: 1 Occurrences starting 08/12/2022 until 09/11/2023 End: 12-19-2023 Us soft tissue head & neck real time imge docm US THYROID/PARATHYROID Radiology Routine Goiter 1 Occurrences starting 11/19/2022 until 12/19/2023 [facility] Work Phone: Comment on above: 1 Occurrences starting 11/19/2022 until 12/19/2023 End: 03-17-2025 XR Lumbar spine 3 Views XR LUMBAR GENERAL 3V AP/LAT/L5-S1 Radiology Routine Chronic midline low back pain without sciatica 1 Occurrences starting 02/16/2024 until 03/17/2025 [facility] Comment on above: 1 Occurrences starting 02/16/2024 until 03/17/2025 XR Lumbar spine 3 Views XR LUMBA R GENERAL 3V AP/LAT/L5-S1 Radiology Routine Chronic midline low back pain without sciatica 02/16/2024 12:[address] [facility] End: 07-08-2025 XR Pelvis and Hip - right AP and Lateral frog XR HIP GENERAL 3V PELV/AP/LAT RIGHT Radiology Routine Fall, sequela Pain of right hip 1 Occurrences starting 06/08/2024 until 07/08/2025 [facility] Work Phone: Comment on above: 1 Occurrences starting 06/08/2024 until 07/08/2025 XR Pelvis and Hip - right AP and Lateral frog XR HIP GENERAL 3V PELV/AP/LAT RIGHT Radiology Routine Fall, sequela Pain of right hip 06/08/2024 2:02 PM EDT [facility] Immunizations Immunization Date Immunization Notes Care Provider Flaca riverajadon 03-11-2023 tetanus and diphther ia toxoids, adsorbed, preservative free, for adult use (5 Lf of tetanus toxoid and 2 Lf of diphtheria toxoid) Fermin Weathers MD Work Phone: [facility] 01-15-2023 Influenza High-Dose Quadrivalent Dr. Flako Tracy Work Phone: [facility] 01-15-2023 influenza virus vaccine, unspecified formulation Flako Tracy MD Work Phone: [facility] 02-09-2022 COVID-19 vaccine, ag e 12+ yr, bivalent (PFIZER-BIONTECH) Adarsh Steele MD Work Phone: [facility] Work Phone: 02-09-2022 influenza, high-dose , quadrivalent vaccine (FLUZONE HIGH DOSE QUADRIVALENT) Tiffanie Reyes PA-C Work Phone: [facility] 02-09-2022 influenza virus vaccine, unspecified formulation Arielle Lara APRN.CNP Work Phone: [facility] 05-19-2021 COVID-19 vaccine (UNSPECIFIED) Tiffanie Reyes PA-C Work Phone: [facility] 12-23-2020 COVID-19 original vaccine, age 12+ yr, monovalent (PFIZER-BIONTECH - PURPLE TOP) Tiffanie Reyes PA-C Work Phone: [facility] 12-02-2020 COVID-19 original vaccine, age 12+ yr, monovalent (PFIZER-BIONTECH - PURPLE TOP) Tiffanie Reyes PA-C Work Phone: [facility] 12-31-2019 influenza, high-dose , quadrivalent vaccine (FLUZONE HIGH DOSE QUADRIVALENT) Tiffanie Athy PA-C Work Phone: [facility] 12-31-2019 influenza virus vaccine, unspecified formulation Provider System [facility] 03-13-2019 influenza, high dose seasonal, preservative-free Tiffanie Davidy PA-C Work Phone: [facility] 03-19-2017 influenza, injectabl e, quadrivalent, preservative free Dr. Flako Tracy Work Phone: [facility] 03-19-2017 influenza, seasonal, injectable [facility] 03-19-2017 influenza, seasonal, injectable, preservative free Tiffanie Athy PA-C Work Phone: [facility] 09-20-2014 HEMOGLOBIN A1C Provider [facility] 09-08-2013 tetanus toxoid, reduced diphtheria toxoid, and acellular pertussis vaccine, adsorbed Tiffanie Davidy PA-C Work Phone: [facility] 01-24-2009 novel [id number], preservative-free, injectable Tiffanie Eric PA-C Work Phone: [facility] 11-22-2008 influenza virus vaccine, whole virus Tiffanie Athy PA-C Work Phone: [facility] Payers Date Payer Category Payer Medicare (Managed Care) AETKAY AYOUB [id number] 2024 Private Health Insurance [id number] 2023 Self-pay [id number] 2019 Medicare HUMANA MANAGED M EDSHAYRE HUMANA MCR ADVANTAGE CHOICE PPO xxxxxxxxx 2019-Present xxxxxxxxx [id number] 2019 Medicare HUMANA MANAGED M EDICARE HUMANA MCR ADVANTAGE CHOICE PPO [id number] 2019-Present [id number] 2019 Medicare PPO HUMANA MCR ADVAN TAGE CHOICE PPO Member Subscriber Plan / Payer (Effective 2019-Present) Name: Laisha Walker Relation to Subscriber: Self Name: Laisha Walker Payer ID: [id number] (NAIC) Type: Not on file Address: [place] [id number] 2019 Medicare [id number] 2016 Medicare 2015 Unknown [employer] [place] xxxxxxxx 2015-Present [id number] 2015 Unknown [id number] 2013 Medicare [id number] 2013 Medicare MEDICARE MEDICAR E PART A & B xxxxxxxxxxx 2013-Present [place] xxxxxxxxxxx [id number] 2013 Medicare [id number] 1948 Unknown [id number] 2.16840.1.636625.3.579.2. 903 1948 Unknown [id number] 2.16840.1.318281.3.579.2. 1948 Unknown [id number] 2.16840.1.414365.3.579.2. 1948 Unknown [id number] 2.16840.1.189898.3.579.2 1948 Unknown [id number] 2.16840.1.699723.3.579.2 1948 Unknown [id number] 2.840.1.032399.3.579.2 1948 Unknown [id number] 2.840.1.734749.3.579.2 1948 Unknown [id number] 2.840.1.592849.3.579.2 1948 Unknown [id number] 2.840.1.978206.3.579.2 1948 Unknown [id number] 2.840.1.540154.3.579.2 1948 Unknown [id number] 2.840.1.732252.3.579.2 1948 Unknown [id number] 2.16840.1.103102.3.579.2 1948 Unknown [id number] 2.16840.1.403983.3.579.2 1948 Unknown [id number] 2.16840.1.770683.3.579.2 1948 Unknown [id number] 2.16840.1.764969.3.579.2 1948 Unknown [id number] 2.16.840.1.545520.3.579.2. 903 1948 Unknown [id number] 2.16.840.1.552210.3.579.2. 903 Medicare xxxxxxxxxx 2.840.1.286554.3.249.13 Unknown [id number] 2.840.1.798683.3.249.13 Unknown [id number] 2.840.1.990670.3.249.13 Unknown [id number] Unknown [id number] 2.840.1.175297.3.579.2. 462 Unknown [id number] 2.840.1.078175.3.579.2. 462 Unknown [id number] 2.840.1.435771.3.579.2. 462 Unknown [id number] 2.840.1.805283.3.579.2. 462 Unknown [id number] 2.840.1.807299.3.579.2. 462 Unknown [id number] 2.840.1.467630.3.579.2. 462 Unknown [id number] 2.840.1.768900.3.579.2. 462 Unknown [id number] 2.840.1.050831.3.579.2. 462 Unknown [id number] 2.840.1.674285.3.579.2. 462 Unknown [id number] 2.840.1.565355.3.579.2. 462 Unknown [id number] 2.16.840.1.318935.3.579.2. 462 Unknown [id number] 2.840.1.611610.3.579.2. 462 Unknown [id number] 2.16840.1.263073.3.579.2. 462 Unknown [id number] 2.840.1.462366.3.579.2. 462 Unknown [id number] 2.16.840.1.217744.3.579.2. 462 Unknown [id number] 2.16.840.1.830372.3.579.2. 462 Unknown [id number] 2.16.840.1.767389.3.579.2. 462 Unknown [id number] 2.16.840.1.940166.3.579.2. 462 Unknown [id number] 2.16.840.1.156642.3.579.2. 462 Unknown [id number] 2.16.840.1.973932.3.579.2. 462 Unknown [id number] 2.16.840.1.663632.3.579.2. 462 Unknown [id number] 2.16.840.1.262523.3.579.2. 462 Unknown [id number] 2.16.840.1.950118.3.579.2. 462 Unknown [id number] 2.16.840.1.147939.3.579.2. 462 Unknown [id number] 2.16.840.1.642989.3.579.2. 462 Unknown [id number] 2.16.840.1.858450.3.579.2. 462 Unknown [id number] 2.16.840.1.137030.3.579.2. 462 Unknown [id number] 2.16.840.1.473367.3.579.2. 462 Unknown [id number] 2.16.840.1.943479.3.579.2. 462 Unknown [id number] 2.16.840.1.143470.3.579.2. 462 Unknown [id number] 2.16.840.1.326427.3.579.2. 462 Unknown [id number] 2.16.840.1.425819.3.579.2. 462 Unknown [id number] 2.16.840.1.225313.3.579.2. 462 Unknown [id number] 2.16.840.1.734877.3.579.2. 462 Unknown [id number] 2.16.840.1.712964.3.579.2. 462 Unknown [id number] 2.16.840.1.228130.3.579.2. 462 Unknown [id number] 2.16.840.1.683778.3.579.2. 462 Unknown [id number] 2.16.840.1.532110.3.579.2. 462 Unknown [id number] 2.16.840.1.683336.3.579.2. 462 Unknown [id number] 2.16.840.1.026282.3.579.2. 462 Unknown [id number] 2.16.840.1.840421.3.579.2. 462 Unknown [id number] 2.16.840.1.102261.3.579.2. 462 Unknown [id number] 2.16.840.1.932985.3.579.2. 462 Unknown [id number] 2.16.840.1.671980.3.579.2. 462 Unknown [id number] 2.16.840.1.445694.3.579.2. 462 Social History Date Type Detail Facility Start: 04-06-2017 End: 06-02-2024 Tobacco smoking status [facility] Never smoker [facility] Start: 1950 Sex Assigned At Not on file [facility] Work Phone: Start: 01-31-2019 End: 06-12-2024 Alcohol intake Current drinker of alcohol (finding) [facility] Start: 01-23-2020 End: 10-15-2021 Tobacco use and exposure Never used [facility] Start: 01-23-2020 End: 08-10-[address] [facility] Start: 12-06-2019 History SDOH Alcohol Frequency 2 [facility] Start: 1950 Sex Assigned At Female [facility] Work Phone: Start: 10-13-2022 End: 01-31-2023 Tobacco smoking status NHIS Unknown if ever smoked [facility] Start: 07-07-2016 None [facility] Start: 03-18-2017 Spouse/ Signif icant Other [facility] Start: 03-18-2017 Non-smoker [facility] Start: 12-06-2019 End: 08-10-2022 Alcohol Use Disorder Identification Test - Consumption [AUDIT-C] [facility] How often to you hav e a drink containing alcohol? Monthly or less [facility] Start: 02-06-2012 Average Number of Drinks Not on file [facility] (I/We) worried wheth er (my/our) food would run out before (I/we) got money to buy more. DK or Refused [facility] Work Phone: Start: 01-31-2019 Gender identity Identifies as female gender (finding) [facility] Work Phone: Start: 04-02-2019 Sexual orientation Choose not to disclose [facility] How hard is it for y ou to pay for the very basics like food, housing, medical care, and heating Somewhat hard [facility] ([facility]/We) [facility] (my[facility]our) food would run out before (I/we) got money to buy more. Never true [facility] In the past 12 month s, was there a time when you were not able to pay the mortgage or rent on time? No [facility] Start: 11-10-2019 End: 11-11-2020 Exposure to SARS-CoV-2 (event) Not sure [facility] How often to you hav e a drink containing alcohol? Never [facility] Start: 05-14-2024 End: 06-05-2024 Sex Female (finding) [facility] Do you belong to any clubs or organizations such as methodist groups, unions, fraternal or athletic groups, or school groups? Yes [facility] Are you now , , , , never or living with a partner? [facility] How hard is it for y ou to pay for the very basics like food, housing, medical care, and heating Not very hard [facility] Do you feel stress - tense, restless, nervous, or anxious, or unable to sleep at night because your mind is troubled all the time - these days [OSQ] Only a little [facility] Start: 01-31-2019 Sexual orientation Heterosexua l (finding) [facility] Start: 09-26-2024 End: 11-09-2024 Alcoholic beverage intake Ex-drinker (finding) [facility] NEGATED: Highlighted row Not [facility] Medical Equipment Procedure Code Equipment Code Equipment Origin al Text Equipment Identifier Dates [id number] Start: 11-16-2017 Comment on above: Test blood sugar(s) 1` times daily. Dx: Type 2 DM - Uncontrolled E11.65 Insulin: No Test blood sugar (s) 1` times daily. Dx: Type 2 DM - Uncontrolled E11.65 Insulin: No [id number] Start: 08-04-2021 End: 05-04-2024 Test blood sugar (s) 1` times daily. Dx: Type 2 DM - Uncontrolled E11.65 Insulin: No [id number] Start: 08-04-2021 Test blood sugar (s) 1` times daily. Dx: Type 2 DM - Uncontrolled E11.65 Insulin: No [id number] Start: 05-04-2024 Goals Date Patient Goal Desired Activity /State Personal health goal Functional Status Date Assessment Result Facility 06-05-2024 Functional status Chair [facility] Work Phone: 06-04-2024 Functional status Ambulates;Bath room Privilege;Back to bed [facility] Work Phone: 05-17-2024 Functional status Chair [facility] Work Phone: 01-25-2023 Are you deaf, or do you have serious difficulty hearing No 01/25/2023 2:00 PM Vinicio Segura RN No [facility] 01-25-2023 Are you blind, or do you have serious difficulty seeing, even when wearing glasses No 01/25/2023 2:00 PM Vinicio Segura, ALONDRA No [facility] 01-25-2023 Do you have serious difficulty walking or climbing stairs No 01/25/2023 2:00 PM Vinicio Segura RN No [facility] 01-25-2023 Do you have difficul ty dressing or bathing No 01/25/2023 2:00 PM Vinicio Segura RN No [facility] 01-25-2023 Because of a physica l, mental, or emotional condition, do you have difficulty doing errands alone such as visiting a physician's office or shopping No 01/25/2023 2:00 PM Vinicio Segura RN No [facility] 01-15-2023 Functional status Ambulates [facility] Work Phone: Mental Status Date Assessment Result Facility 06-05-2024 Cognitive function [facility]/Name [facility] Work Phone: 06-04-2024 Cognitive function Voice/Name [facility] Work Phone: 05-30-2024 Cognitive function [facility]/Name [facility] Work Phone: 05-17-2024 Cognitive function Voice/Name [facility] Work Phone: 05-15-2024 Cognitive function Level Of Cons ciousness Awake;Alert;Appropriate [facility] Work Phone: 05-14-2024 Cognitive function Awake;Alert;A ppropriate;Fol lows Commands [facility] Work Phone: 01-25-2023 Because of a physica l, mental, or emotional condition, do you have serious difficulty concentrating, remembering, or making decisions No 01/25/2023 2:00 PM Vinicio Segura, ALONDRA No [facility] 01-15-2023 Cognitive function Voice/Name [facility] Work Phone: 01-14-2023 Cognitive function Level Of Cons ciousness Awake;Alert;Appropriate;Fol lows Commands [facility] Work Phone: 08-14-2022 Cognitive function Voice/Name [facility] Work Phone: Clinical Notes 05-20-2019 to 12-27-2024 Emmy Meneses - 11/21/2024 12:12 PM EDTPatient InstructionsPraisler-Norma Larios, JOY.JASEN - 11/09/2024 5:17 PM EDTTelephone Encounter - Nik Kate RN - 11/09/2024 3:57 PM EDT Note Date & Type Note Facility 12-27-2024 Note HNO ID: [id number] Author: LONDON CONCEPCION MD Service: ? Author Type: Physician Type: Progress Notes Filed: 12/27/2024 13:52 Note Text: [facility] Subjective Laisha Walker is a 74 year old female. Patient presents with: Trauma: Tick bite on back Pt is here with a tick attached to her upper back area right side noticed this am unknown time attached no systemic symptoms brought in by her dog Pt desires prophylaxis Trauma Associated symptoms include a rash. Pertinent negatives include no chills, fatigue, fever, numbness or weakness. Review of Systems Constitutional: Negative for chills, fatigue and fever. Skin: Positive for rash and wound. Neurological: Negative for weakness and numbness. Objective BP 132/76 Pulse 79 Temp 36.9 ?C (98.4 ?F) Resp 20 Wt 88.8 kg (195 lb 12.3 oz) SpO2 97% BMI 34.13 kg/m? Physical Exam Vitals and nursing note reviewed. Constitutional: Appearance: Normal appearance. She is not ill-appearing. Skin: Findings: Rash present. Comments: Right upper back: tick attached with surrounding area of redness Neurological: Mental Status: She is alert. Numbing spray applied and tick removed with pick ups a small piece embedded in {ASSESSMENT/PLAN: 1. Tick bite of right back wall of thorax, initial encounter - ICD9: 911.4, E906.4, ICD10: S20.461A, W57.XXXA Return here as needed - MUPIROCIN 2 % TOPICAL OINTMENT - DOXYCYCLINE HYCLATE 100 MG CAPSULE London Concepcion MD History and Record Review Clinical information obtained from an independent historian. History obtained from or confirmed by: spouse. Differential Diagnoses - tick bite is more likely for the following reason(s): suggested by HANDP - unknown insect bite is less likely for the following reason(s): tick attached Disposition The patient was discharged. Procedures [facility] 12-25-2024 Note HNO ID: [id number] Author: MANA CARRENO APRN.MORTICIAN INVESTIGATOR Service: ? Author Type: Nurse Practitioner Type: Progress Notes Filed: 12/25/2024 10:26 Note Text: Chief Complaint Patient presents with: Ear Problem: JEREMY ear clogged feeling X 2 months HPI Laisha Walker is a 74 year old female who presents here today for Above Complaints.. Patient presents for sore throat and feeling of clogged ears. Past medical history, appointments, medications, allergies reviewed. Previous Medical History PAST MEDICAL HISTORY Diagnosis Date Atrial fibrillation (HCC) SEES DR. BARRERA Carotid stenosis, asymptomatic Cirrhosis (HCC) CVA (cerebral vascular accident) (HCC) post op after 2017 bilateral knee replacements - per pt was told by neurology that it was a questionable stroke Diabetes mellitus type 2 in obese 01/22/2023 DVT (deep venous thrombosis) (HCC) post op Dysthymic disorder Depression (non-psychotic) Esophageal reflux Essential hypertension, benign Goiter, unspecified Goiter Liver cirrhosis (HCC) Macular degeneration (senile) of retina, unspecified Macular degeneration Other and unspecified hyperlipidemia Renal carcinoma, right (HCC) S/P placement of cardiac pacemaker 01/25/2023 Patient underwent implantation of [employer] permanent pacemaker with right atrial and right ventricular apex leads with Dr. Steele on 01/24/2023. Type 2 diabetes mellitus (HCC) Previous Surgical History PAST SURGICAL HISTORY Procedure Laterality Date ANESTH,PACEMAKER INSERTION APPENDECTOMY 1963 RUPTURED APPENDIX ARTHRP KNE CONDYLEANDPLATU MEDIALANDLAT COMPARTMENTS Bilateral 2017 CHOLECYSTECTOMY 1996 Cholecystectomy COLONOSCOPY [facility] EGD EUS 06/11/2020 benign leiomyoma GE junction, mild antral gastropathy, fatty pancreas, likely cirrhotic liver, prominent dilated portal vein NEPHRECTOMY PARTIAL Right 05/18/2019 robotic PAST SURGICAL HISTORY OF 07/15/1999 LEFT SHOULDER PAST SURGICAL HISTORY OF Left 2018 REPAIR OF LEFT KNEE FRACTURE PAST SURGICAL HISTORY OF 05/2024 duodenal procedure TOTAL ABDOMINAL HYSTERECT W/WO RMVL TUBE OVARY 1985 Hysterectomy, JERRY Family History FAMILY HISTORY Problem Relation Age of Onset Arthritis Mother Hypertension Mother Dementia Mother Heart Father [place] Hypertension Father Heart disease Father other (DEPRESSION) Sister Stroke Sister Diabetes Brother Heart Attack Brother Heart disease Brother other (DEPRESSION) Brother Hypertension Brother Cancer No Family History none Anesthesia Problems No Family History Patient Allergies ALLERGIES Allergen Reactions Gabapentin Other: See Comments Dizziness Accupril [Quinapril* Other: See Comments Bextra [Valdecoxib] GI Upset Celebrex [Celecoxib] GI Upset Codeine Other: See Comments Entex La [Phenyleph* Other: See Comments Glucophage [Metform* Other: See Comments Lipitor [Atorvastat* Other: See Comments Lodine [Etodolac] GI Upset Naprosyn [Naproxen] Other: See Comments Nsaids (Non-Steroid* Other: See Comments Pravachol [Pravasta* Other: See Comments Worsening abdominal pain Sulfa (Sulfonamide * GI Upset Ultracet [Tramadol-* Other: See Comments Vicodin [Hydrocodon* Other: See Comments Vioxx [Rofecoxib] Other: See Comments Zocor [Simvastatin] Other: See Comments Current Medications Current Outpatient Medications on File Prior to Visit Medication Sig glipiZIDE (GLUCOTROL XL) 10mg 24 hr tablet Take 1 tablet by mouth two times a day. pantoprazole DR (PROTONIX) 40 mg tablet Take 1 tablet by mouth every 12 hours. pioglitazone (ACTOS) 15 mg tablet Take 1 tablet by mouth once daily. (Patient not taking: Reported on 10/17/2024) warfarin (COUMADIN) 2.5 mg tablet TAKE 1 TABLET BY MOUTH on Tuesday, Tuesday, Tuesday, and ; 2 tablets together to = 5mg on Tuesday, Tuesday and Tuesday at bedtdime; dose changes often, please give extra tablets rosuvastatin (CRESTOR) 20 mg tablet Take 1 tablet by mouth once daily. blood sugar diagnostic (BLOOD GLUCOSE TEST) test strip Test blood sugar(s) 1` times daily. Dx: Type 2 DM - Uncontrolled E11.65 Insulin: No metoprolol tartrate, short acting, (LOPRESSOR) 50 mg tablet Take 50 mg by mouth two times a day. losartan (COZAAR) 25 mg tablet Take 0.5 tablets by mouth every afternoon. docusate sodium (STOOL SOFTENER ORAL) Take by mouth as needed. OTC Lancets lancets Test blood sugar(s) 1` times daily. Dx: Type 2 DM - Uncontrolled E11.65 Insulin: No hydrocortisone (ANUSOL-HC) 2.5 % rectal cream by RECTAL route twice daily. multivitamin (MULTIPLE VITAMINS ORAL) Take by mouth. alcohol swabs (ALCOHOL PREP PADS) Apply 1 application to affected area once daily. loratadine (CLARITIN) 10 mg tablet Take 10 mg by mouth once daily. acetaminophen (TYLENOL) 325 mg tablet Take 500 mg by mouth. 2 TABLETS AT HS (Patient not taking: Reported on 10/17/2024) No current facility-administered medications on (more content not included)... [facility] 11-21-2024 Note HNO ID: [id number] Author: ?, ?, ? Service: ? Author Type: ? Type: Progress Notes Filed: 11/21/2024 12:20 Note Text: POPULATION HEALTH NAVIGATION OUTREACH Action/ [facility] Wellness: Overdue since 03/07/2024 KED ([facility]): Overdue since 10/20/2024 A1C: Overdue since 11/13/2024 Flu: Due for dose 1 since 11/05/2024 ------ Called Patient: Wellness: would like to wait to complete until patient has new PCP Flu: would like to wait to complete until patient has new PCP Labs: would like to wait to complete until patient has new PCP Cancelled 11/29/24 appt per patient Reason for Outreach Care Gap/HCC or Scheduling Wellness Visits Care Gaps due: Medicare Annual Wellness Visit HBA1C KED Flu Vaccine Patient Contacted: Spoke to patient/parent/or legal guardian Patient identified by name and : Yes Care Gap/HCC/Scheduling Wellness actions taken: Patient declined: Other: would like to wait to complete until patient has new PCP Navigation Signature: Emmy Meneses November 21, 2024 12:12 PM [facility] 11-21-2024 History of Presen t illness Narrative POPULATION HEALTH NAVIGATION OUTREACH Action/ [facility] Wellness: Overdue since 03/07/2024 KED ([facility]): Overdue since 10/20/2024 A1C: Overdue since 11/13/2024 Flu: Due for dose 1 since 11/05/2024 ------ Called Patient: Wellness: would like to wait to complete until patient has new PCP Flu: would like to wait to complete until patient has new PCP Labs: would like to wait to complete until patient has new PCP Cancelled 11/29/24 appt per patient Reason for Outreach Care Gap/HCC or Scheduling Wellness Visits Care Gaps due: Medicare Annual Wellness Visit HBA1C KED Flu Vaccine Patient Contacted: Spoke to patient/parent/or legal guardian Patient identified by name and : Yes Care Gap/HCC/Scheduling Wellness actions taken: Patient declined: Other: would like to wait to complete until patient has new PCP Navigation Signature: Emmy Meneses November 21, 2024 12:12 PM documented in this encounter [facility] 11-21-2024 Note Patient Outreach (NE TNAV) LAISHA WALKER ([id number]) 1950 F Date Time Provider Department 11/21/24 FLAKO TRACY During your visit today, we recorded the following information about you: Emmy Meneses 11/21/2024 12:20 PM Signed POPULATION HEALTH NAVIGATION OUTREACH Action/ [facility] Wellness: Overdue since 03/07/2024 KED ([facility]): Overdue since 10/20/2024 A1C: Overdue since 11/13/2024 Flu: Due for dose 1 since 11/05/2024 ------ Called Patient: Wellness: would like to wait to complete until patient has new PCP Flu: would like to wait to complete until patient has new PCP Labs: would like to wait to complete until patient has new PCP Cancelled 11/29/24 appt per patient Reason for Outreach Care Gap/HCC or Scheduling Wellness Visits Care Gaps due: Medicare Annual Wellness Visit HBA1C KED Flu Vaccine Patient Contacted: Spoke to patient/parent/or legal guardian Patient identified by name and : Yes Care Gap/HCC/Scheduling Wellness actions taken: Patient declined: Other: would like to wait to complete until patient has new PCP Navigation Signature: Emmy Meneses November 21, 2024 12:12 PM Allergies As of Date: 11/21/2024 Noted Allergy Reaction GABAPENTIN 11/03/2021 14 - Other: See Comments Comments: Dizziness ACCUPRIL (QUINAPRIL HCL) 07/05/2005 14 - Other: See Comments BEXTRA (VALDECOXIB) 07/05/2005 8 - GI Upset CELEBREX (CELECOXIB) 07/05/2005 8 - GI Upset Comments: CODEINE 07/05/2005 14 - Other: See Comments ENTEX LA (PHENYLEPHRINE-GUAIFENES* 006 14 - Other: See Comments GLUCOPHAGE (METFORMIN HCL) 07/05/2005 14 - Other: See Comments LIPITOR (ATORVASTATIN CALCIUM) 07/05/2005 14 - Other: See Comments LODINE (ETODOLAC) 07/05/2005 8 - GI Upset NAPROSYN (NAPROXEN) 07/05/2005 14 - Other: See Comments NSAIDS (NON-STEROIDAL ANTI-INFLAM*12/06/2019 14 - Other: See Comments PRAVACHOL (PRAVASTATIN SODIUM) 07/05/2005 14 - Other: See Comments Comments: Worsening abdominal pain SULFA (SULFONAMIDE ANTIBIOTICS) 07/08/2014 8 - GI Upset ULTRACET (TRAMADOL-ACETAMINOPHEN) 07/05/2005 14 - Other: See Comments VICODIN (HYDROCODONE-ACETAMINOPHE*2005 14 - Other: See Comments VIOXX (ROFECOXIB) 07/05/2005 14 - Other: See Comments ZOCOR (SIMVASTATIN) 07/05/2005 14 - Other: See Comments Date Reviewed: 11/09/2024 Reviewed by: Lesa Saab MA - Fully Assessed Reason for Visit: Population Health Navigation Outreach [3910] Cmt: Jono Reis Prescriptions as of 11/22/2024 - glipiZIDE (GLUCOTROL XL) 10mg 24 hr tablet Take 1 tablet by mouth two times a day. - pantoprazole DR (PROTONIX) 40 mg tablet Take 1 tablet by mouth every 12 hours. - pioglitazone (ACTOS) 15 mg tablet Take 1 tablet by mouth once daily. - warfarin (COUMADIN) 2.5 mg tablet TAKE 1 TABLET BY MOUTH on Tuesday, Tuesday, Tuesday, and ; 2 tablets together to = 5mg on Tuesday, Tuesday and Tuesday at bedtdime; dose changes often, please give extra tablets - rosuvastatin (CRESTOR) 20 mg tablet Take 1 tablet by mouth once daily. - blood sugar diagnostic (BLOOD GLUCOSE TEST) test strip Test blood sugar(s) 1` times daily. Dx: Type 2 DM - Uncontrolled E11.65 Insulin: No - metoprolol tartrate, short acting, (LOPRESSOR) 50 mg tablet Take 50 mg by mouth two times a day. - losartan (COZAAR) 25 mg tablet Take 0.5 tablets by mouth every afternoon. - docusate sodium (STOOL SOFTENER ORAL) Take by mouth as needed. OTC - Lancets lancets Test blood sugar(s) 1` times daily. Dx: Type 2 DM - Uncontrolled E11.65 Insulin: No - hydrocortisone (ANUSOL-HC) 2.5 % rectal cream by RECTAL route twice daily. - multivitamin (MULTIPLE VITAMINS ORAL) Take by mouth. - alcohol swabs (ALCOHOL PREP PADS) Apply 1 application to affected area once daily. - loratadine (CLARITIN) 10 mg tablet Take 10 mg by mouth once daily. - acetaminophen (TYLENOL) 325 mg tablet Take 500 mg by mouth. 2 TABLETS AT HS Problem List As Of Date 11/21/2024 Noted Resolved LUMBAGO [M54.50] 07/06/2005 ENTHESOPATHY OF HIP [M76.899] 07/06/2005 SPRAIN LUMBAR REGION [S33.5XXA] 07/06/2005 Dyslipidemia associated with type 2 diabetes me* Paroxysmal atrial fibrillation (HCC) [I48.0] 01/15/2023 Carotid stenosis, asymptomatic [I65.29] Right renal mass [N28.89] 05/18/2019 BMI 34.0-34.9,adult [Z68.34] 05/19/2019 Renal carcinoma, right (HCC) [C64.1] 05/20/2019 01/21/2023 Other cirrhosis of liver (HCC) [K74.69] 05/23/2020 Stage 3a chronic kidney disease (HCC) [N18.31] 08/10/2022 Obesity, Class I, BMI 30-34.9 [E66.811] 11/19/2022 01/22/2023 Anticoagulant long-term use [Z79.01] 11/24/2022 Third degree atrioventricular block (HCC) [I44.*01/22/2023 Bradycardia [R00.1] 01/22/2023 At risk for stroke [Z91.89] 01/22/2023 Bilateral carotid artery stenosis [I65.23] 10/10/2016 Diagnosed: (more content not included)... [facility] 11-09-2024 Instructions Norma Fernández APRN.JASEN - 11/09/2024 5:19 PM EDT 1. Burning with urination (R30.0) 2. Urinary tract infection with hematuria, site unspecified (N39.0) - Acute UTI with hematuria; urinalysis positive for blood, protein, nitrites, and leukocytes. - Start antibiotic therapy. - Urine sent for culture to identify causative organism and guide antibiotic therapy. - Advised patient to drink plenty of water. - Instructed patient to complete the full course of antibiotics unless otherwise directed based on culture results; explained that antibiotic may be changed if culture indicates a different organism or resistance. - Begin the antibiotic sent to your pharmacy today and complete the full course as directed. - Drink plenty of water to help flush the infection and support your recovery. - A urine culture has been sent to the lab; we will contact you only if the antibiotic needs to be changed based on those results. documented in this encounter [facility] 11-09-2024 Note HNO ID: [id number] Author: NORMA FERNÁNDEZ APRN.JASEN Service: ? Author Type: Nurse Practitioner Type: Progress Notes Filed: 11/09/2024 17:19 Note Text: [facility] Laisha Walker is a 74 year old female. Patient presents with: UTI: Burning, pain, urine odor x5 days UTI The patient is a 74-year-old female presenting with dysuria, urinary frequency, and chills. Dysuria and Urinary Frequency: - Onset: 1 week ago. - Associated with chills; denies fever >98 degreeF. - Denies emesis; reports chronic nausea. - Denies taking any medication for symptoms. - Denies pain over the bladder. Review of Systems Genitourinary: Positive for dysuria. Constitutional: (+) chills, (-) fever Gastrointestinal: (+) nausea, (-) vomiting Genitourinary: (+) urinary frequency, (+) dysuria, (-) suprapubic pain Musculoskeletal: (+) back pain Objective BP 144/75 Pulse 65 Temp 36.7 ?C (98.1 ?F) Resp 18 Wt 88.7 kg (195 lb 8.8 oz) SpO2 98% BMI 34.10 kg/m? PAST MEDICAL HISTORY Diagnosis Date Atrial fibrillation (HCC) SEES DR. BARRERA Carotid stenosis, asymptomatic Cirrhosis (HCC) CVA (cerebral vascular accident) (HCC) post op after 2017 bilateral knee replacements - per pt was told by neurology that it was a questionable stroke Diabetes mellitus type 2 in obese 01/22/2023 DVT (deep venous thrombosis) (HCC) post op Dysthymic disorder Depression (non-psychotic) Esophageal reflux Essential hypertension, benign Goiter, unspecified Goiter Liver cirrhosis (HCC) Macular degeneration (senile) of retina, unspecified Macular degeneration Other and unspecified hyperlipidemia Renal carcinoma, right (HCC) S/P placement of cardiac pacemaker 01/25/2023 Patient underwent implantation of [employer] permanent pacemaker with right atrial and right ventricular apex leads with Dr. Steele on 01/24/2023. Type 2 diabetes mellitus (HCC) PAST SURGICAL HISTORY Procedure Laterality Date ANESTH,PACEMAKER INSERTION APPENDECTOMY 1962 RUPTURED APPENDIX ARTHRP KNE CONDYLEANDPLATU MEDIALANDLAT COMPARTMENTS Bilateral 2017 CHOLECYSTECTOMY 1996 Cholecystectomy COLONOSCOPY [facility] EGD EUS 06/11/2020 benign leiomyoma GE junction, mild antral gastropathy, fatty pancreas, likely cirrhotic liver, prominent dilated portal vein NEPHRECTOMY PARTIAL Right 05/18/2019 robotic PAST SURGICAL HISTORY OF 07/15/1999 LEFT SHOULDER PAST SURGICAL HISTORY OF Left 2018 REPAIR OF LEFT KNEE FRACTURE PAST SURGICAL HISTORY OF 05/2024 duodenal procedure TOTAL ABDOMINAL HYSTERECT W/WO RMVL TUBE OVARY 1985 Hysterectomy, JERRY ALLERGIES Gabapentin, Accupril [Quinapril Hcl], Bextra [Valdecoxib], Celebrex [Celecoxib], Codeine, Entex La [Phenylephrine-Guaifenesin], Glucophage [Metformin Hcl], Lipitor [Atorvastatin Calcium], Lodine [Etodolac], Naprosyn [Naproxen], Nsaids (Non-Steroidal Anti-Inflammatory Drug), Pravachol [Pravastatin Sodium], Sulfa (Sulfonamide Antibiotics), Ultracet [Tramadol-Acetaminophen], Vicodin [Hydrocodone-Acetaminophen], Vioxx [Rofecoxib], and Zocor [Simvastatin] MEDICATIONS glipiZIDE (GLUCOTROL XL) 10mg 24 hr tablet Take 1 tablet by mouth two times a day. pantoprazole DR (PROTONIX) 40 mg tablet Take 1 tablet by mouth every 12 hours. warfarin (COUMADIN) 2.5 mg tablet TAKE 1 TABLET BY MOUTH on Tuesday, Tuesday, Tuesday, and ; 2 tablets together to = 5mg on Tuesday, Tuesday and Tuesday at bedtdime; dose changes often, please give extra tablets rosuvastatin (CRESTOR) 20 mg tablet Take 1 tablet by mouth once daily. blood sugar diagnostic (BLOOD GLUCOSE TEST) test strip Test blood sugar(s) 1` times daily. Dx: Type 2 DM - Uncontrolled E11.65 Insulin: No metoprolol tartrate, short acting, (LOPRESSOR) 50 mg tablet Take 50 mg by mouth two times a day. losartan (COZAAR) 25 mg tablet Take 0.5 tablets by mouth every afternoon. docusate sodium (STOOL SOFTENER ORAL) Take by mouth as needed. OTC Lancets lancets Test blood sugar(s) 1` times daily. Dx: Type 2 DM - Uncontrolled E11.65 Insulin: No multivitamin (MULTIPLE VITAMINS ORAL) Take by mouth. alcohol swabs (ALCOHOL PREP PADS) Apply 1 application to affected area once daily. loratadine (CLARITIN) 10 mg tablet Take 10 mg by mouth once daily. pioglitazone (ACTOS) 15 mg tablet Take 1 tablet by mouth once daily. (Patient not taking: Reported on 10/17/2024) hydrocortisone (ANUSOL-HC) 2.5 % rectal cream by RECTAL route twice daily. acetaminophen (TYLENOL) 325 mg tablet Take 500 mg by mouth. 2 TABLETS AT HS (Patient not taking: Reported on 10/17/2024) FAMILY HISTORY Problem Relation Age of Onset Arthritis Mother Hypertension Mother Dementia Mother Heart Father [place] Hypertension Father Heart disease Father other (DEPRESSION) Sister Stroke Sister Diabetes Brother Heart Attack Brother Heart disease Brother other (DEPRESSION) Brother Hypertension Brother Cancer (more content not included)... [facility] 11-09-2024 History of Presen t illness Narrative [facility] Subjective Laisha Walker is a 74 year old female. Patient presents with: UTI: Burning, pain, urine odor x5 days UTI The patient is a 74-year-old female presenting with dysuria, urinary frequency, and chills. Dysuria and Urinary Frequency: - Onset: 1 week ago. - Associated with chills; denies fever >98 degreeF. - Denies emesis; reports chronic nausea. - Denies taking any medication for symptoms. - Denies pain over the bladder. Review of Systems Genitourinary: Positive for dysuria. Constitutional: (+) chills, (-) fever Gastrointestinal: (+) nausea, (-) vomiting Genitourinary: (+) urinary frequency, (+) dysuria, (-) suprapubic pain Musculoskeletal: (+) back pain Objective BP 144/75 Pulse 65 Temp 36.7 C (98.1 F) Resp 18 Wt 88.7 kg (195 lb 8.8 oz) SpO2 98% BMI 34.10 kg/m PAST MEDICAL HISTORY Diagnosis Date Atrial fibrillation (HCC) SEES DR. BARRERA Carotid stenosis, asymptomatic Cirrhosis (HCC) CVA (cerebral vascular accident) (HCC) post op after 2017 bilateral knee replacements - per pt was told by neurology that it was a questionable stroke Diabetes mellitus type 2 in obese 01/22/2023 DVT (deep venous thrombosis) (HCC) post op Dysthymic disorder Depression (non-psychotic) Esophageal reflux Essential hypertension, benign Goiter, unspecified Goiter Liver cirrhosis (HCC) Macular degeneration (senile) of retina, unspecified Macular degeneration Other and unspecified hyperlipidemia Renal carcinoma, right (HCC) S/P placement of cardiac pacemaker 01/25/2023 Patient underwent implantation of [employer] permanent pacemaker with right atrial and right ventricular apex leads with Dr. Steele on 01/24/2023. Type 2 diabetes mellitus (HCC) PAST SURGICAL HISTORY Procedure Laterality Date ANESTH,PACEMAKER INSERTION APPENDECTOMY 1963 RUPTURED APPENDIX ARTHRP KNE CONDYLE&PLATU MEDIAL&LAT COMPARTMENTS Bilateral 2017 CHOLECYSTECTOMY 1995 Cholecystectomy COLONOSCOPY [facility] EGD EUS 06/11/2020 benign leiomyoma GE junction, mild antral gastropathy, fatty pancreas, likely cirrhotic liver, prominent dilated portal vein NEPHRECTOMY PARTIAL Right 05/18/2019 robotic PAST SURGICAL HISTORY OF 07/15/1999 LEFT SHOULDER PAST SURGICAL HISTORY OF Left 2018 REPAIR OF LEFT KNEE FRACTURE PAST SURGICAL HISTORY OF 05/2024 duodenal procedure TOTAL ABDOMINAL HYSTERECT W/WO RMVL TUBE OVARY 1984 Hysterectomy, JERRY ALLERGIES Gabapentin, Accupril [Quinapril Hcl], Bextra [Valdecoxib], Celebrex [Celecoxib], Codeine, Entex La [Phenylephrine-Guaifenesin], Glucophage [Metformin Hcl], Lipitor [Atorvastatin Calcium], Lodine [Etodolac], Naprosyn [Naproxen], Nsaids (Non-Steroidal Anti-Inflammatory Drug), Pravachol [Pravastatin Sodium], Sulfa (Sulfonamide Antibiotics), Ultracet [Tramadol-Acetaminophen], Vicodin [Hydrocodone-Acetaminophen], Vioxx [Rofecoxib], and Zocor [Simvastatin] MEDICATIONS glipiZIDE (GLUCOTROL XL) 10mg 24 hr tablet Take 1 tablet by mouth two times a day. pantoprazole DR (PROTONIX) 40 mg tablet Take 1 tablet by mouth every 12 hours. warfarin (COUMADIN) 2.5 mg tablet TAKE 1 TABLET BY MOUTH on Tuesday, Tuesday, Tuesday, and ; 2 tablets together to = 5mg on Tuesday, Tuesday and Tuesday at bedtdime; dose changes often, please give extra tablets rosuvastatin (CRESTOR) 20 mg tablet Take 1 tablet by mouth once daily. blood sugar diagnostic (BLOOD GLUCOSE TEST) test strip Test blood sugar(s) 1` times daily. Dx: Type 2 DM - Uncontrolled E11.65 Insulin: No metoprolol tartrate, short acting, (LOPRESSOR) 50 mg tablet Take 50 mg by mouth two times a day. losartan (COZAAR) 25 mg tablet Take 0.5 tablets by mouth every afternoon. docusate sodium (STOOL SOFTENER ORAL) Take by mouth as needed. OTC Lancets lancets Test blood sugar(s) 1` times daily. Dx: Type 2 DM - Uncontrolled E11.65 Insulin: No multivitamin (MULTIPLE VITAMINS ORAL) Take by mouth. alcohol swabs (ALCOHOL PREP PADS) Apply 1 application to affected area once daily. loratadine (CLARITIN) 10 mg tablet Take 10 mg by mouth once daily. pioglitazone (ACTOS) 15 mg tablet Take 1 tablet by mouth once daily. (Patient not taking: Reported on 10/17/2024) hydrocortisone (ANUSOL-HC) 2.5 % rectal cream by RECTAL route twice daily. acetaminophen (TYLENOL) 325 mg tablet Take 500 mg by mouth. 2 TABLETS AT HS (Patient not taking: Reported on 10/17/2024) FAMILY HISTORY Problem Relation Age of Onset Arthritis Mother Hypertension Mother Dementia Mother Heart Father [place] Hypertension Father Heart disease Father other (DEPRESSION) Sister Stroke Sister Diabetes Brother Heart Attack Brother Heart disease Brother other (DEPRESSION) Brother Hypertension Brother Cancer No Family History none Anesthesia Problems No Family History SOCIAL HISTORY[1] Physical Exam Vitals and nursing note reviewed. Constitutional: General: She is not in acute distress. Appearance: Normal appearance. She is not ill-appearing. Cardiovascular: Rate and Rhythm: Normal rate and regular rhythm. Heart sounds: Normal heart sounds. Pulmonary: Effort: Pulmonary effort is normal. No respiratory distress. Breath sounds: Normal breath sounds. No wheezing or rales. Abdominal: General: There is no distension. Palpations: Abdomen is soft. There is no mass. Tenderness: There is no abdominal tenderness. There is no right CVA tenderness, left CVA tenderness or guarding. Skin: General: Skin is warm and dry. Neurological: Mental Status: She is alert. { 1. Burning with urination (R30.0) 2. Urinary tract infection with hematuria, site unspecified (N39.0) - Acute UTI with hematuria; urinalysis positive for blood, protein, nitrites, and leukocytes. - Start antibiotic therapy. - Urine sent for culture to identify causative organism and guide antibiotic therapy. - Advised patient to drink plenty of water. - Instructed patient to complete the full course of antibiotics unless otherwise directed based on culture results; explained that antibiotic may be changed if culture indicates a different organism or resistance. - Follow-up with your PCP in 3-5 days if symptoms have not improved or sooner if symptoms worsen - Discussed red flags and need for immediate medical evaluation if any occur. - Discussed supportive care treatment with fluids, rest and analgesia. - Discussed expected course of illness Norma Fernández APRN.MORTICIAN INVESTIGATOR and Recording using [employer] software for draft documentation of the visit was discussed with the patient/authorized sales representative meats; all questions welcomed and answered. Patient/authorized sales representative meats agreed to proceed History and Record Review External record(s) reviewed: prior labs/imaging. Findings from review of prior labs/imaging: Previous Renal Function Panel Reviewed 02/16/2024: BUN 19; Creatinine 1.10 (H); Estimated Glomerular Filtration Rate 53 (L) 02/20/2024: BUN 21; Creatinine 0.96; Estimated Glomerular Filtration Rate 62 08/13/2024: BUN 17; Creatinine 1.04 (H); Estimated Glomerular Filtration Rate 56 (L) Disposition The patient was discharged. Procedures [1] Social History Tobacco Use Smoking status: Never Smokeless tobacco: Never Vaping Use Vaping status: Never Used Substance Use Topics Alcohol use: Not Currently Comment: very seldom Drug use: No documented in this encounter [facility] 11-09-2024 Telephone encounter Note Reason for Conversation Urinary Symptoms Background Patient calls to request an antibiotic for UTI. Patient is having urinary burning and cloudy/foul urine. Nurse triage recommends see provider within 24 hours. No appointments available. Patient is going to check with insurance to make sure they cover urgent care and plans to be evaluated at Urgent Care. If insurance doesn't cover Urgent Care patient will be calling back to schedule an appointment on Tuesday. Care advice and red flag symptoms reviewed with patient with verbalized understanding. Disposition See PCP Within 24 Hours Reason for Disposition Bad or foul-smelling urine 1. SYMPTOM: Patient calls for burning with urination and and cloudy urine. 2. ONSET: This past Tuesday. 3. PAIN: Patient reports not pain but burning with urination. 4. CAUSE: Patient reports history of UTI. 5. OTHER SYMPTOMS: No blood in urine, fever, flank pain, pain with urination. No Additional Information on file. Protocols Used Urinary [id number] [facility] 11-09-2024 Miscellaneous Notes Reason for Conversation Urinary Symptoms Background Patient calls to request an antibiotic for UTI. Patient is having urinary burning and cloudy/foul urine. Nurse triage recommends see provider within 24 hours. No appointments available. Patient is going to check with insurance to make sure they cover urgent care and plans to be evaluated at Urgent Care. If insurance doesn't cover Urgent Care patient will be calling back to schedule an appointment on Tuesday. Care advice and red flag symptoms reviewed with patient with verbalized understanding. Disposition See PCP Within 24 Hours Reason for Disposition Bad or foul-smelling urine 1. SYMPTOM: Patient calls for burning with urination and and cloudy urine. 2. ONSET: This past Tuesday. 3. PAIN: Patient reports not pain but burning with urination. 4. CAUSE: Patient reports history of UTI. 5. OTHER SYMPTOMS: No blood in urine, fever, flank pain, pain with urination. No Additional Information on file. Protocols Used Urinary Uxooopai-[id number] documented in this encounter [facility] 11-02-2024 Telephone encounter Note Spoke to patient on the phone; verified identity with full name and date of . Discussed diagnosis of cirrhosis based on elastography in may 2024. Discussed reasoning for EUS, EGD, colonoscopy. Patient expressed understanding and appreciation for call. Recommended follow up with Dr. Urbano in clinic. [facility] 11-02-2024 Miscellaneous Notes Spoke to patient on the phone; verified identity with full name and date of . Discussed diagnosis of cirrhosis based on elastography in may 2024. Discussed reasoning for EUS, EGD, colonoscopy. Patient expressed understanding and appreciation for call. Recommended follow up with Dr. Urbano in clinic. Patient called and asks if she has liver cirrhosis. If she does, she would like to know what she should do next. Please call patient to answer her questions. documented in this encounter [facility] 11-02-2024 Telephone encounter Note Patient called and asks if she has liver cirrhosis. If she does, she would like to know what she should do next. Please call patient to answer her questions. [facility] 11-01-2024 Note Q3 Patient Name: Laisha Walker Procedure Date: 11/01/2024 11:06 AM Date of : 1950 Admit Type: Outpatient Age: 74 Gender: Female Note Status: Finalized Attending MD: Chelsi Cobb MD, [id number] Procedure: Colonoscopy Indications: Screening for colorectal malignant neoplasm Providers: Chelsi Cobb MD Patient Profile: Last Colonoscopy: 5 years ago. Referring Physician: Dariela Coulter (Referring MD) Medicines: General Anesthesia Complications: No immediate complications. Requesting Provider: Procedure: Pre-Anesthesia Assessment: - ASA Grade Assessment: II - A patient with mild systemic disease. After I obtained informed consent, the scope was passed under direct vision. Throughout the procedure, the patient's blood pressure, pulse, and oxygen saturations were monitored continuously. The Colonoscope was introduced through the anus and advanced to the cecum, identified by appendiceal orifice and ileocecal valve. The colonoscopy was performed without difficulty. The patient tolerated the procedure well. The quality of the bowel preparation was excellent. The ileocecal valve, appendiceal orifice, and rectum were photographed. Moderate Sedation: MAC anesthesia was administered by the anesthesia team. Findings: The perianal and digital rectal examinations were normal. The colon (entire examined portion) appeared normal. No additional abnormalities were found on retroflexion. A 3 mm polyp was found in the cecum. The polyp was sessile. The polyp was removed with a cold biopsy forceps. Resection and retrieval were complete. Impression: - The entire examined colon is normal. - One 3 mm polyp in the cecum, removed with a cold biopsy forceps. Resected and retrieved. Estimated Blood Loss: Estimated blood loss: none. Recommendation: - Patient has a contact number available for emergencies. The signs and symptoms of potential delayed complications were discussed with the patient. Return to normal activities tomorrow. Written discharge instructions were provided to the patient. - Resume previous diet. - Continue present medications. - Repeat colonoscopy in 5-10 years for surveillance. Procedure Code(s): --- Professional --- 90231, Colonoscopy, flexible; with biopsy, single or multiple Diagnosis Code(s): --- Professional --- Z12.11, Encounter for screening for malignant neoplasm of colon D12.0, Benign neoplasm of cecum CPT copyright 2020 [employer]. All rights reserved. Attending Participation: I personally performed the entire procedure. Scope In: 11:35:00 AM Scope Out: 11:47:25 AM MD Chelsi Isbell MD 11/01/2024 11:51:00 AM This report has been signed electronically by Chelsi Cobb MD Number of Addenda: 0 Note Initiated On: 11/01/2024 11:06 AM [facility] 11-01-2024 Note Q3 Patient Name: Laisha Walker Procedure Date: 11/01/2024 11:07 AM Date of : 1950 Admit Type: Outpatient Age: 74 Gender: Female Note Status: Forger Helper Override Attending MD: Chelsi Cobb MD, [id number] Procedure: Upper EUS Indications: Abnormal ultrasound of the abdomen, Cirrhosis with suspected esophageal varices Providers: Chelsi Cobb MD Referring Physician: Dariela Coulter (Referring MD) Medicines: General Anesthesia Complications: No immediate complications. Requesting Provider: Procedure: Pre-Anesthesia Assessment: - ASA Grade Assessment: II - A patient with mild systemic disease. After obtaining informed consent, the endoscope was passed under direct vision. Throughout the procedure, the patient's blood pressure, pulse, and oxygen saturations were monitored continuously. The Endosonoscope was introduced through the mouth, and advanced to the second part of duodenum. The upper EUS was accomplished without difficulty. The patient tolerated the procedure well. Moderate Sedation: GA Findings: ENDOSCOPIC FINDING: : The examined esophagus was normal. Mild portal hypertensive gastropathy was found in the gastric body. The examined duodenum was normal. ENDOSONOGRAPHIC FINDING: : There was dilation in the upper third of the main bile duct which measured up to 8 mm. There was no sign of significant endosonographic abnormality in the main pancreatic duct. The pancreatic duct measured up to 2 mm in diameter. No masses, the pancreatic duct was thin in caliber. Impression: - Normal esophagus. - Portal hypertensive gastropathy. - Normal examined duodenum. - There was dilation in the upper third of the main bile duct which measured up to 8 mm. - There was no sign of significant pathology in the main pancreatic duct. - Normal ampulla. . Estimated Blood Loss: Estimated blood loss: none. Recommendation: - Patient has a contact number available for emergencies. The signs and symptoms of potential delayed complications were discussed with the patient. Return to normal activities tomorrow. Written discharge instructions were provided to the patient. - Resume previous diet. - Continue present medications. Procedure Code(s): --- Professional --- 53430, Esophagogastroduodenoscopy, flexible, transoral; with endoscopic ultrasound examination limited to the esophagus, stomach or duodenum, and adjacent structures Diagnosis Code(s): --- Professional --- K76.6, Portal hypertension K31.89, Other diseases of stomach and duodenum K74.60, Unspecified cirrhosis of liver K83.8, Other specified diseases of biliary tract R93.5, Abnormal findings on diagnostic imaging of other abdominal regions, including retroperitoneum CPT copyright 2020 [employer]. All rights reserved. Attending Participation: I personally performed the entire procedure. Scope In: 11:23:02 AM Scope Out: 11:31:22 AM MD Chelsi Isbell MD 11/01/2024 11:33:47 AM This report has been signed electronically by Chelsi Cobb MD Number of Addenda: 0 Note Initiated On: 11/01/2024 11:07 AM [facility] 11-01-2024 Nurse Note AMBULATORY PATIENT EDUCATION NOTE TOPIC: GI PROCEDURES: Colonoscopy with or without biopsies based on clinical findings Endoscopic Ultrasound (EUS) with or without Fine Needle Aspiration (FNA) Esophagogastroduodenoscopy(EGD) with or without biopies based on clinical findings, removal of polyps or lesions READINESS TO LEARN INSTRUCTION PROVIDED TO: Patient, readness to learn accessed prior to procedure COGNITIVE ABILITY: Alert and oriented PTED MOTIVATION TO LEARN: Eager FAMILY SUPPORT: High - Very involved in pt care IPATIENT LEARNS BEST BY: Individual Instruction Written Instruction - Hand-outs Verbal Instruction FACTORS AFFECTING LEARNING: None PHYSICAL LIMITATIONS AFFECTING LEARNING: None LEARNING RESPONSE METHOD OF INSTRUCTION: Individual instruction PATIENT / FAMILY RESPONSE: Verbalizes understanding of: WORSENING CONDITION-Signs and symptoms of a worsening condition that warrant a call to the physician FOLLOW-UP PLAN: Patient instructed to call with any further issues SUPPLEMENTAL MATERIAL: Procedure Discharge Instructions REFERRAL (RECOMMENDATION): None [facility] 11-01-2024 Nurse Note AMBULATORY PATIENT EDUCATION NOTE TOPIC: GI PROCEDURES: Colonoscopy with or without biopsies based on clinical findings Endoscopic Ultrasound (EUS) with or without Fine Needle Aspiration (FNA) Esophagogastroduodenoscopy(EGD) with or without biopies based on clinical findings, removal of polyps or lesions READINESS TO LEARN INSTRUCTION PROVIDED TO: Patient, readness to learn accessed prior to procedure COGNITIVE ABILITY: Alert and oriented PTED MOTIVATION TO LEARN: Eager FAMILY SUPPORT: High - Very involved in pt care IPATIENT LEARNS BEST BY: Individual Instruction Written Instruction - Hand-outs Verbal Instruction FACTORS AFFECTING LEARNING: None PHYSICAL LIMITATIONS AFFECTING LEARNING: None LEARNING RESPONSE METHOD OF INSTRUCTION: Individual instruction PATIENT / FAMILY RESPONSE: Verbalizes understanding of: WORSENING CONDITION-Signs and symptoms of a worsening condition that warrant a call to the physician FOLLOW-UP PLAN: Patient instructed to call with any further issues SUPPLEMENTAL MATERIAL: Procedure Discharge Instructions REFERRAL (RECOMMENDATION): None PRE OP LEARNING ASSESSMENT PROCEDURE/SURGERY: GI PROCEDURES: Colonoscopy, EGD, and ESU READINESS TO LEARN COGNITIVE ABILITY: Alert and oriented MOTIVATION TO LEARN: Interested FAMILY SUPPORT: High - Very involved in pt care PATIENT LEARNS BEST BY: Individual Instruction FACTORS AFFECTING LEARNING: None PHYSICAL LIMITATIONS AFFECTING LEARNING: None Electronically Signed By: López Paige RN In Department: GASTROENTEROLOGY documented in this encounter [facility] 11-01-2024 Nurse procedure note @1131 EGD/EUS scope out @[address] [facility] 11-01-2024 Miscellaneous Notes @1131 EGD/EUS scope out @1135 Colonoscopy scope in documented in this encounter [facility] 11-01-2024 Note Q3 Patient Name: Laisha Walker Procedure Date: 11/01/2024 11:07 AM Date of : 1950 Admit Type: Outpatient Age: 74 Gender: Female Note Status: Forger Helper Override Attending MD: Chelsi Cobb MD, [id number] Procedure: Upper EUS Indications: Abnormal ultrasound of the abdomen, Cirrhosis with suspected esophageal varices Providers: Chelsi Cobb MD Referring Physician: Dariela Coulter (Referring MD) Medicines: General Anesthesia Complications: No immediate complications. Requesting Provider: Procedure: Pre-Anesthesia Assessment: - ASA Grade Assessment: II - A patient with mild systemic disease. After obtaining informed consent, the endoscope was passed under direct vision. Throughout the procedure, the patient's blood pressure, pulse, and oxygen saturations were monitored continuously. The Endosonoscope was introduced through the mouth, and advanced to the second part of duodenum. The upper EUS was accomplished without difficulty. The patient tolerated the procedure well. Moderate Sedation: GA Findings: ENDOSCOPIC FINDING: : The examined esophagus was normal. Mild portal hypertensive gastropathy was found in the gastric body. The examined duodenum was normal. ENDOSONOGRAPHIC FINDING: : There was dilation in the upper third of the main bile duct which measured up to 8 mm. There was no sign of significant endosonographic abnormality in the main pancreatic duct. The pancreatic duct measured up to 2 mm in diameter. No masses, the pancreatic duct was thin in caliber. Impression: - Normal esophagus. - Portal hypertensive gastropathy. - Normal examined duodenum. - There was dilation in the upper third of the main bile duct which measured up to 8 mm. - There was no sign of significant pathology in the main pancreatic duct. - Normal ampulla. . Estimated Blood Loss: Estimated blood loss: none. Recommendation: - Patient has a contact number available for emergencies. The signs and symptoms of potential delayed complications were discussed with the patient. Return to normal activities tomorrow. Written discharge instructions were provided to the patient. - Resume previous diet. - Continue present medications. Procedure Code(s): --- Professional --- 35619, Esophagogastroduodenoscopy, flexible, transoral; with endoscopic ultrasound examination limited to the esophagus, stomach or duodenum, and adjacent structures Diagnosis Code(s): --- Professional --- K76.6, Portal hypertension K31.89, Other diseases of stomach and duodenum K74.60, Unspecified cirrhosis of liver K83.8, Other specified diseases of biliary tract R93.5, Abnormal findings on diagnostic imaging of other abdominal regions, including retroperitoneum CPT copyright 2020 [employer]. All rights reserved. Attending Participation: I personally performed the entire procedure. Scope In: 11:23:02 AM Scope Out: 11:31:22 AM MD Chelsi Isbell MD 11/01/2024 11:33:47 AM This report has been signed electronically by Chelsi Cobb MD Number of Addenda: 0 Note Initiated On: 11/01/2024 11:07 AM [facility] 11-01-2024 Nurse Note PRE OP LEARNING ASSESSMENT PROCEDURE/SURGERY: GI PROCEDURES: Colonoscopy, EGD, and ESU READINESS TO LEARN COGNITIVE ABILITY: Alert and oriented MOTIVATION TO LEARN: Interested FAMILY SUPPORT: High - Very involved in pt care PATIENT LEARNS BEST BY: Individual Instruction FACTORS AFFECTING LEARNING: None PHYSICAL LIMITATIONS AFFECTING LEARNING: None Electronically Signed By: López Paige RN In Department: GASTROENTEROLOGY [facility] 10-26-2024 Telephone encounter Note Images from the original note were not included. Patient has received clearance from vascular standpoint. See Scanned Documents. Cherelle Melendrez APRN.JASEN [facility] 10-26-2024 Miscellaneous Notes Images from the original note were not included. Patient has received clearance from vascular standpoint. See Scanned Documents. Cherelle Melendrez APRN.JASEN Received letter back from Vascular and last office visit. Scanned into [employer] through Onbase scanning. Erlinda Leigh LPN Faxed optimization letter to [facility] requesting response back. Erlinda Leigh LPN Valorie, I saw this mutual patient in [facility] on 10/17/2024. Laisha Johnston Aaron 1950 [id number] is scheduled for Colonoscopy with you on 11/01/24. Received cardiac optimization letter from patient's secretarial stenographer, which in the attached note stated, 90% stenosis of left w/ significant collaterals, 50% stenosis of right per US 10/27/2020. Right ICA 20-39% states to have secretarial stenographer appointment 06/04/24 for this. Patient apparently was to see someone at the [facility] but they retired therefore we will revaluate this with carotid ultrasounds and if appropriate refer to one of the vascular surgeons. I am concerned about these dizzy spells that the patient is having which may be related to this carotid stenosis it does not appear to be related to her pacemaker which is functioning appropriately. June 2023 per Social Welfare Administrator note: Mild (<50%) stenosis right extracranial internal carotid. 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 Patent and antegrade vertebrals internally. Consulted Dr. Daphney Sweeney - Anesthesiologist, patient will have to have vascular workup prior to elective procedure. Called patient and made her aware of this. Thank you Cherelle Melendrez APRN.MORTICIAN INVESTIGATOR [facility] ADDENDUM: October 26, 2024 8:[address] [facility] called this PRODUCER ASSISTANT this morning - spoke to Mar Lytle. Voices that she is cleared as this is chronic and stable and had recent imaging in their office. Pending scan. Surgery can still proceed with appropriate workup per anesthesiologist. documented in this encounter [facility] 10-26-2024 Telephone encounter Note Received letter back from Vascular and last office visit. Scanned into Epic through Onbase scanning. Erlinda Leigh LPN [facility] 10-26-2024 Telephone encounter Note Faxed optimization letter to [facility] requesting response back. Erlinda Leigh LPN [facility] 10-25-2024 Telephone encounter Note Valorie, I saw this mutual patient in [facility] on 10/17/2024. Laisha Johnston Aaron 1950 [id number] is scheduled for Colonoscopy with you on 11/01/24. Received cardiac optimization letter from patient's secretarial stenographer, which in the attached note stated, 90% stenosis of left w/ significant collaterals, 50% stenosis of right per US 10/27/2020. Right ICA 20-39% states to have secretarial stenographer appointment 06/04/24 for this. Patient apparently was to see someone at the [facility] but they retired therefore we will revaluate this with carotid ultrasounds and if appropriate refer to one of the vascular surgeons. I am concerned about these dizzy spells that the patient is having which may be related to this carotid stenosis it does not appear to be related to her pacemaker which is functioning appropriately. June 2023 per Social Welfare Administrator note: Mild (<50%) stenosis right extracranial internal carotid. 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 Patent and antegrade vertebrals internally. Consulted Dr. Daphney Sweeney - Anesthesiologist, patient will have to have vascular workup prior to elective procedure. Called patient and made her aware of this. Thank you Cherelle Melendrez APRN.CNP PAC ADDENDUM: October 26, 2024 8:[address] [facility] called this PRODUCER ASSISTANT this morning - spoke to Mar Randhawaary. Voices that she is cleared as this is chronic and stable and had recent imaging in their office. Pending scan. Surgery can still proceed with appropriate workup per anesthesiologist. [facility] 10-25-2024 Nurse Note Attempted to reach the patient at the contact number that they provided [phone] (home) . Unable to speak with patient so without identifying the patient the following information was left on their voice mail: Date of procedure, location and report time Prep instructions A message was left informing the patient/patient sales representative meats they must have a responsible adult accompany them to their procedure; and remain in the endoscopy area until they are discharged. Failure to have a responsible adult accompany the patient to their procedure appointment prevents the use of sedation or anesthesia for their procedure; and can result in cancellation of the procedure NPO instructions were reviewed. Clear liquids the day before the procedure, stop all liquids 4 hours before the procedure Instructions to contact their primary care provider regarding their medications and which medications to stop in preparation for their procedure Instructions to completely read and follow the written instructions that they recieved regarding their procedure. Number to call with questions or concerns [phone] Number to call to cancel their procedure [phone] [facility] 10-25-2024 Nurse Note Attempted to reach the patient at the contact number that they provided [phone] (home) . Unable to speak with patient so without identifying the patient the following information was left on their voice mail: Date of procedure, location and report time Prep instructions A message was left informing the patient/patient sales representative meats they must have a responsible adult accompany them to their procedure; and remain in the endoscopy area until they are discharged. Failure to have a responsible adult accompany the patient to their procedure appointment prevents the use of sedation or anesthesia for their procedure; and can result in cancellation of the procedure NPO instructions were reviewed. Clear liquids the day before the procedure, stop all liquids 4 hours before the procedure Instructions to contact their primary care provider regarding their medications and which medications to stop in preparation for their procedure Instructions to completely read and follow the written instructions that they recieved regarding their procedure. Number to call with questions or concerns [phone] Number to call to cancel their procedure [phone] Jen Swift RN documented in this encounter [facility] 10-22-2024 Telephone encounter Note Scanned into [employer] through Onbase scanning. Erlinda Leigh LPN [facility] 10-22-2024 Miscellaneous Notes Scanned into [employer] through Onbase scanning. Erlinda Leigh LPN Hello, Would you mind calling to see if they ca fax over recent pacemaker check? It was not included in testing. Thanks!!!! Cherelle Melendrez APRN.MORTICIAN INVESTIGATOR Received Cardiac optimization letter and cardiac records. Scanned into [employer] through Onbase scanning. Erlinda Leigh LPN documented in this encounter [facility] 10-22-2024 Telephone encounter Note Valorie, Would you mind calling to see if they ca fax over recent pacemaker check? It was not included in testing. Thanks!!!! Cherelle Melendrez APRN.CNP [facility] 10-22-2024 Telephone encounter Note Received Cardiac optimization letter and cardiac records. Scanned into [employer] through Onbase scanning. Erlinda Leigh LPN [facility] 10-18-2024 Telephone encounter Note The following approved medication requests have been transmitted electronically. Requested Prescriptions Pending Prescriptions Disp Refills glipiZIDE XL (GLUCOTROL XL) 10 mg 24 hr tablet 180 tablet 1 Sig: Take 1 tablet by mouth two times a day. Otoniel King APRN.CNP [facility] 10-18-2024 Miscellaneous Notes The following approved medication requests have been transmitted electronically. Requested Prescriptions Pending Prescriptions Disp Refills glipiZIDE XL (GLUCOTROL XL) 10 mg 24 hr tablet 180 tablet 1 Sig: Take 1 tablet by mouth two times a day. Otoniel King APRN.CNP Vinicio Pleitez with [employer] calls to let provider know that she works with patient on medication compliance and wanted to update provider that patient is not taking the pioglitazone d/t side effects (patient noted this on 10/17/2024). Vinicio also reports that patient is missing the glipizide dose about once a week. She is requesting a 90 day supply for better compliance (Patient has a current prescription at pharmacy but for 30 days). Last OV: 08/24/2024 Next OV: 11/29/2024 Pended request for review. Please review and adviseNik RN documented in this encounter [facility] 10-18-2024 Telephone encounter Note Vinicio Pleitez with [employer] calls to let provider know that she works with patient on medication compliance and wanted to update provider that patient is not taking the pioglitazone d/t side effects (patient noted this on 10/17/2024). Vinicio also reports that patient is missing the glipizide dose about once a week. She is requesting a 90 day supply for better compliance (Patient has a current prescription at pharmacy but for 30 days). Last OV: 08/24/2024 Next OV: 11/29/2024 Pended request for review. Please review and advise, Nik Kate RN [facility] 10-17-2024 History and physical note Images from the original note were not included. [facility] HISTORY AND PHYSICAL EXAMINATION SERVICE DATE: 10/17/2024 SERVICE TIME: 2:41 PM PRIMARY CARE PHYSICIAN: Flako Tracy MD Assessment Patient has the following medical conditions which may affect sanna-operative course: 1. 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 S/P placement of cardiac pacemaker (Z95.0) 3. Paroxysmal atrial fibrillation (HCC) (I48.0) - No episodes of syncope since pacemaker placement in 2022. - On Coumadin for anticoagulation; instructed to hold Coumadin 3-5 days prior to upcoming EGD and colonoscopy. - Will confirm Coumadin hold duration with Dr. Anna. - Shortness of breath worsening; seen by cardiology (Dr. Anna) today, echo performed. - Continue current management; will follow up with cardiology regarding echo results and further recommendations. 4. Hyperlipidemia, unspecified hyperlipidemia type (E78.5) 5. Dyslipidemia associated with type 2 diabetes mellitus (HCC) (E11.69) - Continue rosuvastatin as prescribed. 6. Gastroesophageal reflux disease without esophagitis (K21.9) - Continue Protonix as prescribed. 7. Stage 3a chronic kidney disease (HCC) (N18.31) 8. Right renal mass (N28.89) - History of right renal mass resected. - No current issues reported. 9. BMI 34.0-34.9,adult (Z68.34) - Body mass index is 34.35 kg/m . 10. Bilateral carotid artery stenosis (I65.23) - Recent evaluation performed per patient 11. Hypertension, unspecified type (I10) - Continue losartan as prescribed. 12. History of DVT (deep vein thrombosis) (Z86.718) - On Coumadin for anticoagulation. 13. Acute midline low back pain without sciatica (M54.50) - Denies any new or worsening symptoms. 14. Anemia, unspecified type (D64.9) - Recent labs show resolving anemia (Hgb 11.4 on 09/27). ANESTHESIA FINDINGS: Intubation History: No history of difficult intubation. No abnormal airway history Significant Anesthesia Considerations: none Airway History: No history of difficult airway No abnormal airway history Elliott Activity Status Index: METS: Walk indoors, such as around the house (1.75 METs) Do light work around the house, such as dusting or washing dishes (2.70 METs) Take care of self; that is eating, dressing, bathing, using the toilet (2.75 METs) DASI Score: 7.2 (+ baseline dyspnea) Patient denies any chest pain or undue shortness of breath with the above physical activity. Clinical Frailty Scale: 3. Well, with treated comorbid disease STOP-Bang Score: Has or is being treated for high blood pressure Patient over 50 years old Denies snoring loudly Denies feeling tired, fatigued, or sleepy during the daytime Has not been observed to stop breathing or choking/gasping during sleep BMI less than or equal to 35 kg/m^2 Does not have a large neck Non-male patient STOP-Bang Score: 2 [id number] Score: Diabetes history: Yes [id number] Score: I - PHYSICAL EVALUATION AIRWAY Patient intubated: No. Tracheostomy tube not present Mallampati: II. TM distance: >3 FB. Neck ROM: full ROM without neurological symptoms. Mouth opening: adequate. Short neck: no. Thick neck: no DENTAL Dental findings: teeth intact. II - ANESTHESIA PLAN Anesthetic plan additional comments: *PACC/TCI - anesthesia choice. Beta Zandra Monitoring Plan Post Procedure Analgesic Plan Prepared for Surgery: optimally prepared for surgery, pending [see comment]. CONSULTS: Patient does not require consults for optimization at this time Planned Anesthetic: anesthesia choice The Following Tests/Procedures Have Been Initiated: No orders of the defined types were placed in this encounter. REASON FOR VISIT: Laisha Walker is a 74 year old female who is scheduled for * No surgery found * at the request of @PACCSURG@ for consultation. My final recommendation will be communicated back to the requesting physician by way of shared medical record or letter. Subjective The patient has the following: COVID-19 Immunization Status This patient has no relevant Health Maintenance data. CHIEF COMPLAINT: colonoscopy HPI: Laisha Walker is a 74-year-old female with a history of hepatic cirrhosis, duodenal ulcer, and atrial fibrillation, presenting for preoperative evaluation prior to an upcoming EGD and colonoscopy. Laisha is scheduled for an EGD and colonoscopy at the [facility], which has been scheduled for approximately 3 weeks. She reports fluctuating abdominal distention, nausea, increased fatigue, and decreased appetite. REVIEW OF SYSTEMS: General: No weight loss, malaise or fevers. Neurological: + Holley-Mary syncope Negative for: dementia, headaches, impaired sensorium, peripheral neuropathy, seizures, TIA and strokes. Respiratory: Negative for: asthma, bronchitis, COPD, current cough, bronchodilator used daily for the last 3 months, dyspnea, home oxygen, orthopnea, pneumonia within 6 weeks, tobacco use, URI < 2 weeks and obstructive sleep apnea. Cardiovascular: + Bilateral carotid artery stenosis + Denies any heart palpitations, chest pain, syncope or dizziness. Positive for: AICD/PPM, atrial fibrillation, DVT/PE, hyperlipidemia, hypertension and murmur/valvular heart disease Negative for: abdominal aortic aneurysm, angina, anticoagulation therapy, arrhythmia, CAD, chest pain, CHF, congenital heart defect, recent [place], PTCA, PVD, open heart surgery and valve surgery. GI: Positive for: GERD and liver disease : + stage 3a CKD + renal mass Negative for: dysuria, frequent urination, hematuria and urinary tract infection. Endocrine: Positive for: diabetes mellitus. Patient's diabetes mellitus is controlled by diet and oral agents. Negative for: hyperthyroidism and hypothyroidism. Hematology: Positive for: chronic anti-coagulation/platelet meds. Patient is on anti-coagulation/platelet medication(s): Coumadin. Negative for: anemia, bruises/bleeds easily, factor V Leiden, hemophilia, thrombocytopenia, von Willebrand disease and transfusion of at least 4 units within 72 hours prior to surgery. Oncology: + hx of renal cancer Psych: No history of psychiatric symptoms or problems. Musculoskeletal: Positive for: back pain. Skin: Negative for lesions, rash and itching. Implanted Devices: Has implanted device PAST MEDICAL HISTORY Diagnosis Date Atrial fibrillation (HCC) SEES DR. BARRERA Carotid stenosis, asymptomatic Cirrhosis (HCC) CVA (cerebral vascular accident) (HCC) post op after 2017 bilateral knee replacements - per pt was told by neurology that it was a questionable stroke Diabetes mellitus type 2 in obese 01/22/2023 DVT (deep venous thrombosis) (HCC) post op Dysthymic disorder Depression (non-psychotic) Esophageal reflux Essential hypertension, benign Goiter, unspecified Goiter Liver cirrhosis (HCC) Macular degeneration (senile) of retina, unspecified Macular degeneration Other and unspecified hyperlipidemia Renal carcinoma, right (HCC) S/P placement of cardiac pacemaker 01/25/2023 Patient underwent implantation of [place] permanent pacemaker with right atrial and right ventricular apex leads with Dr. Steele on 01/24/2023. Type 2 diabetes mellitus (HCC) PAST SURGICAL HISTORY Procedure Laterality Date ANESTH,PACEMAKER INSERTION APPENDECTOMY 1962 RUPTURED APPENDIX ARTHRP KNE CONDYLE&PLATU MEDIAL&LAT COMPARTMENTS Bilateral 2017 CHOLECYSTECTOMY 1996 Cholecystectomy COLONOSCOPY [facility] EGD EUS 06/11/2020 benign leiomyoma GE junction, mild antral gastropathy, fatty pancreas, likely cirrhotic liver, prominent dilated portal vein NEPHRECTOMY PARTIAL Right 05/18/2019 robotic PAST SURGICAL HISTORY OF 07/15/1999 LEFT SHOULDER PAST SURGICAL HISTORY OF Left 2018 REPAIR OF LEFT KNEE FRACTURE PAST SURGICAL HISTORY OF 05/2024 duodenal procedure TOTAL ABDOMINAL HYSTERECT W/WO RMVL TUBE OVARY 1985 Hysterectomy, JERRY FAMILY HISTORY Problem Relation Age of Onset Arthritis Mother Hypertension Mother Dementia Mother Heart Father [place] Hypertension Father Heart disease Father other (DEPRESSION) Sister Stroke Sister Diabetes Brother Heart Attack Brother Heart disease Brother other (DEPRESSION) Brother Hypertension Brother Cancer No Family History none Anesthesia Problems No Family History SOCIAL HISTORY[1] Prior to Admission medications as of 10/17/24 1412 Medication Sig Last Dose Taking pantoprazole DR (PROTONIX) 40 mg tablet Take 1 tablet by mouth every 12 hours. Yes glipiZIDE (GLUCOTROL XL) 10mg 24 hr tablet Take 1 tablet by mouth two times a day. Yes warfarin (COUMADIN) 2.5 mg tablet TAKE 1 TABLET BY MOUTH on Tuesday, Tuesday, Tuesday, and ; 2 tablets together to = 5mg on Tuesday, Tuesday and Tuesday at bedtdime; dose changes often, please give extra tablets Yes rosuvastatin (CRESTOR) 20 mg tablet Take 1 tablet by mouth once daily. Yes blood sugar diagnostic (BLOOD GLUCOSE TEST) test strip Test blood sugar(s) 1` times daily. Dx: Type 2 DM - Uncontrolled E11.65 Insulin: No Yes metoprolol tartrate, short acting, (LOPRESSOR) 50 mg tablet Take 50 mg by mouth two times a day. Yes losartan (COZAAR) 25 mg tablet Take 0.5 tablets by mouth every afternoon. Yes docusate sodium (STOOL SOFTENER ORAL) Take by mouth as needed. OTC Yes Lancets lancets Test blood sugar(s) 1` times daily. Dx: Type 2 DM - Uncontrolled E11.65 Insulin: No Yes hydrocortisone (ANUSOL-HC) 2.5 % rectal cream by RECTAL route twice daily. Yes multivitamin (MULTIPLE VITAMINS ORAL) Take by mouth. Yes alcohol swabs (ALCOHOL PREP PADS) Apply 1 application to affected area once daily. Yes loratadine (CLARITIN) 10 mg tablet Take 10 mg by mouth once daily. Yes pioglitazone (ACTOS) 15 mg tablet Take 1 tablet by mouth once daily. Patient not taking: Reported on 10/17/2024 acetaminophen (TYLENOL) 325 mg tablet Take 500 mg by mouth. 2 TABLETS AT HS Patient not taking: Reported on 10/17/2024 No medication comments found. ALLERGIES Allergen Reactions Gabapentin Other: See Comments Dizziness Accupril [Quinapril* Other: See Comments Bextra [Valdecoxib] GI Upset Celebrex [Celecoxib] GI Upset Codeine Other: See Comments Entex La [Phenyleph* Other: See Comments Glucophage [Metform* Other: See Comments Lipitor [Atorvastat* Other: See Comments Lodine [Etodolac] GI Upset Naprosyn [Naproxen] Other: See Comments Nsaids (Non-Steroid* Other: See Comments Pravachol [Pravasta* Other: See Comments Worsening abdominal pain Sulfa (Sulfonamide * GI Upset Ultracet [Tramadol-* Other: See Comments Vicodin [Hydrocodon* Other: See Comments Vioxx [Rofecoxib] Other: See Comments Zocor [Simvastatin] Other: See Comments Objective PHYSICAL EXAM: General: alert and oriented and healthy appearance. Pertinent negatives noted - not distressed. Skin: normal color, no rash or lesions. HEENT: EOM intact, pupils equal round and pupils reactive to light. Pertinent negatives noted - no carotid bruit. Cardiovascular: regular rate and rhythm, normal S1 and S2, no rub, murmurs, or gallop. Respiratory: normal breath sounds, no wheezes or crackles. No chest wall deformity or tenderness. Abdomen: bowel sounds present and soft. Pertinent negatives noted - not tender. Extremities: no deformity, no edema or tenderness, no joint swelling or clubbing. Positive for edema (ankles). Neurological: normal cognition and motor skills. Gait normal. No weakness or sensory deficit. PAIN ASSESSMENT: VITALS: BP 118/52 Pulse 76 Temp (Src) 97.3 (Temporal) Resp 14 Ht 5' 3.5 (1.61m) Wt 197 lb (89.4kg) SpO2 97% BMI 34.35 kg/(m^2). Diagnostic tests reviewed for today's visit: Lab Value Units Date High Low HB 11.4 g/dL 09/27/2024 15.5 11.5 HCT 35.0 % 09/27/2024 46.0 36.0 WBC 7.40 k/uL 09/27/2024 11.00 3.70 PLT 234 k/uL 09/27/2024 400 150 NA 138 mmol/L 08/13/2024 144 136 K 4.4 mmol/L 08/13/2024 5.1 3.7 GLUC 163 mg/dL 08/13/2024 99 74 BUN 17 mg/dL 08/13/2024 21 7 CREAT 1.04 mg/dL 08/13/2024 0.96 0.58 PTSEC No results within date range. INR No results within date range. APTT No results within date range. ALT 21 U/L 10/08/2024 38 7 AST 38 U/L 10/08/2024 35 13 TBILI 0.5 mg/dL 10/08/2024 1.3 0.2 TSH No results within date range. Lab Value Units Date High Low HCGQT No results within date range. UHCG No results within date range. HCG, BODY* No results within date range. Lab Value Units Date High Low ABORHD No results within date range. ABSCREEN No results within date range. Hemoglobin A1C (%) Date Value 08/13/2024 8.0 02/16/2024 7.6 10/21/2023 7.5 07/26/2022 7.7 01/20/2022 7.3 04/30/2021 8.6 04/28/2020 7.9 12/31/2019 7.1 03/13/2019 8.1 No results found for this or any previous visit (from the past 8760 hours). Recent Results (from the past 42194 hours) ECHO Collection Time: 01/22/23 8:53 AM Impression CONCLUSIONS: - Technically difficult exam due to body habitus. - Exam indication: Sustained atrial fibrillation - The left ventricle is normal in size. There is moderate septal asymmetric left ventricular hypertrophy. Left ventricular systolic function is hyperdynamic. EF = 75 5% (3D) There is a 23 mm resting gradient in the left ventricular outflow tract, which increases to 54 mm with Valsalva. Global longitudinal strain -20.2% - The right ventricle is normal in size. Right ventricular systolic function is normal. Tricuspid annular displacement is 2.2 cm. - The patient has not had a prior CC echocardiographic exam for comparison. * * * Final * * * Instructions Given to Patient: Instructions located in the after visit summary. Patient given verbal and written preop instructions and voices comprehension and compliance. Recording using [employer] software for draft documentation of the visit was discussed with the patient/authorized sales representative meats; all questions welcomed and answered. Patient/authorized sales representative meats agreed to proceed SIGNATURE: Cherelle Melendrez APRN.JASEN PATIENT NAME: Laisha Walker DATE: October 17, 2024 TIME: 2:01 PM PAGER/CONTACT #: [1] Social History Tobacco Use Smoking status: Never Smokeless tobacco: Never Vaping Use Vaping status: Never Used Substance Use Topics Alcohol use: Not Currently Comment: very seldom Drug use: No [facility] 10-17-2024 History and physical note Images from the original note were not included. [facility] HISTORY AND PHYSICAL EXAMINATION SERVICE DATE: 10/17/2024 SERVICE TIME: 2:41 PM PRIMARY CARE PHYSICIAN: Flako Tracy MD Assessment Patient has the following medical conditions which may affect sanna-operative course: 1. 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 S/P placement of cardiac pacemaker (Z95.0) 3. Paroxysmal atrial fibrillation (HCC) (I48.0) - No episodes of syncope since pacemaker placement in 2022. - On Coumadin for anticoagulation; instructed to hold Coumadin 3-5 days prior to upcoming EGD and colonoscopy. - Will confirm Coumadin hold duration with Dr. Anna. - Shortness of breath worsening; seen by cardiology (Dr. Anna) today, echo performed. - Continue current management; will follow up with cardiology regarding echo results and further recommendations. 4. Hyperlipidemia, unspecified hyperlipidemia type (E78.5) 5. Dyslipidemia associated with type 2 diabetes mellitus (HCC) (E11.69) - Continue rosuvastatin as prescribed. 6. Gastroesophageal reflux disease without esophagitis (K21.9) - Continue Protonix as prescribed. 7. Stage 3a chronic kidney disease (HCC) (N18.31) 8. Right renal mass (N28.89) - History of right renal mass resected. - No current issues reported. 9. BMI 34.0-34.9,adult (Z68.34) - Body mass index is 34.35 kg/m . 10. Bilateral carotid artery stenosis (I65.23) - Recent evaluation performed per patient 11. Hypertension, unspecified type (I10) - Continue losartan as prescribed. 12. History of DVT (deep vein thrombosis) (Z86.718) - On Coumadin for anticoagulation. 13. Acute midline low back pain without sciatica (M54.50) - Denies any new or worsening symptoms. 14. Anemia, unspecified type (D64.9) - Recent labs show resolving anemia (Hgb 11.4 on 09/27). ANESTHESIA FINDINGS: Intubation History: No history of difficult intubation. No abnormal airway history Significant Anesthesia Considerations: none Airway History: No history of difficult airway No abnormal airway history Elliott Activity Status Index: METS: Walk indoors, such as around the house (1.75 METs) Do light work around the house, such as dusting or washing dishes (2.70 METs) Take care of self; that is eating, dressing, bathing, using the toilet (2.75 METs) DASI Score: 7.2 (+ baseline dyspnea) Patient denies any chest pain or undue shortness of breath with the above physical activity. Clinical Frailty Scale: 3. Well, with treated comorbid disease STOP-Bang Score: Has or is being treated for high blood pressure Patient over 50 years old Denies snoring loudly Denies feeling tired, fatigued, or sleepy during the daytime Has not been observed to stop breathing or choking/gasping during sleep BMI less than or equal to 35 kg/m^2 Does not have a large neck Non-male patient STOP-Bang Score: 2 [id number] Score: Diabetes history: Yes [id number] Score: I - PHYSICAL EVALUATION AIRWAY Patient intubated: No. Tracheostomy tube not present Mallampati: II. TM distance: >3 FB. Neck ROM: full ROM without neurological symptoms. Mouth opening: adequate. Short neck: no. Thick neck: no DENTAL Dental findings: teeth intact. II - ANESTHESIA PLAN Anesthetic plan additional comments: *PACC/TCI - anesthesia choice. Beta Zandra Monitoring Plan Post Procedure Analgesic Plan Prepared for Surgery: optimally prepared for surgery, pending [see comment]. CONSULTS: Patient does not require consults for optimization at this time Planned Anesthetic: anesthesia choice The Following Tests/Procedures Have Been Initiated: No orders of the defined types were placed in this encounter. REASON FOR VISIT: Laisha Walker is a 74 year old female who is scheduled for * No surgery found * at the request of @PACCSURG@ for consultation. My final recommendation will be communicated back to the requesting physician by way of shared medical record or letter. Subjective The patient has the following: COVID-19 Immunization Status This patient has no relevant Health Maintenance data. CHIEF COMPLAINT: colonoscopy HPI: Laisha Walker is a 74-year-old female with a history of hepatic cirrhosis, duodenal ulcer, and atrial fibrillation, presenting for preoperative evaluation prior to an upcoming EGD and colonoscopy. Laisha is scheduled for an EGD and colonoscopy at the [facility], which has been scheduled for approximately 3 weeks. She reports fluctuating abdominal distention, nausea, increased fatigue, and decreased appetite. REVIEW OF SYSTEMS: General: No weight loss, malaise or fevers. Neurological: + Holley-Mary syncope Negative for: dementia, headaches, impaired sensorium, peripheral neuropathy, seizures, TIA and strokes. Respiratory: Negative for: asthma, bronchitis, COPD, current cough, bronchodilator used daily for the last 3 months, dyspnea, home oxygen, orthopnea, pneumonia within 6 weeks, tobacco use, URI < 2 weeks and obstructive sleep apnea. Cardiovascular: + Bilateral carotid artery stenosis + Denies any heart palpitations, chest pain, syncope or dizziness. Positive for: AICD/PPM, atrial fibrillation, DVT/PE, hyperlipidemia, hypertension and murmur/valvular heart disease Negative for: abdominal aortic aneurysm, angina, anticoagulation therapy, arrhythmia, CAD, chest pain, CHF, congenital heart defect, recent [place], PTCA, PVD, open heart surgery and valve surgery. GI: Positive for: GERD and liver disease : + stage 3a CKD + renal mass Negative for: dysuria, frequent urination, hematuria and urinary tract infection. Endocrine: Positive for: diabetes mellitus. Patient's diabetes mellitus is controlled by diet and oral agents. Negative for: hyperthyroidism and hypothyroidism. Hematology: Positive for: chronic anti-coagulation/platelet meds. Patient is on anti-coagulation/platelet medication(s): Coumadin. Negative for: anemia, bruises/bleeds easily, factor V Leiden, hemophilia, thrombocytopenia, von Willebrand disease and transfusion of at least 4 units within 72 hours prior to surgery. Oncology: + hx of renal cancer Psych: No history of psychiatric symptoms or problems. Musculoskeletal: Positive for: back pain. Skin: Negative for lesions, rash and itching. Implanted Devices: Has implanted device PAST MEDICAL HISTORY Diagnosis Date Atrial fibrillation (HCC) SEES DR. BARRERA Carotid stenosis, asymptomatic Cirrhosis (HCC) CVA (cerebral vascular accident) (HCC) post op after 2017 bilateral knee replacements - per pt was told by neurology that it was a questionable stroke Diabetes mellitus type 2 in obese 01/22/2023 DVT (deep venous thrombosis) (HCC) post op Dysthymic disorder Depression (non-psychotic) Esophageal reflux Essential hypertension, benign Goiter, unspecified Goiter Liver cirrhosis (HCC) Macular degeneration (senile) of retina, unspecified Macular degeneration Other and unspecified hyperlipidemia Renal carcinoma, right (HCC) S/P placement of cardiac pacemaker 01/25/2023 Patient underwent implantation of [place] permanent pacemaker with right atrial and right ventricular apex leads with Dr. Steele on 01/24/2023. Type 2 diabetes mellitus (HCC) PAST SURGICAL HISTORY Procedure Laterality Date ANESTH,PACEMAKER INSERTION APPENDECTOMY 1962 RUPTURED APPENDIX ARTHRP KNE CONDYLE&PLATU MEDIAL&LAT COMPARTMENTS Bilateral 2017 CHOLECYSTECTOMY 1996 Cholecystectomy COLONOSCOPY [facility] EGD EUS 06/11/2020 benign leiomyoma GE junction, mild antral gastropathy, fatty pancreas, likely cirrhotic liver, prominent dilated portal vein NEPHRECTOMY PARTIAL Right 05/18/2019 robotic PAST SURGICAL HISTORY OF 07/15/1999 LEFT SHOULDER PAST SURGICAL HISTORY OF Left 2018 REPAIR OF LEFT KNEE FRACTURE PAST SURGICAL HISTORY OF 05/2024 duodenal procedure TOTAL ABDOMINAL HYSTERECT W/WO RMVL TUBE OVARY 1985 Hysterectomy, JERRY FAMILY HISTORY Problem Relation Age of Onset Arthritis Mother Hypertension Mother Dementia Mother Heart Father [place] Hypertension Father Heart disease Father other (DEPRESSION) Sister Stroke Sister Diabetes Brother Heart Attack Brother Heart disease Brother other (DEPRESSION) Brother Hypertension Brother Cancer No Family History none Anesthesia Problems No Family History SOCIAL HISTORY[1] Prior to Admission medications as of 10/17/24 1412 Medication Sig Last Dose Taking pantoprazole DR (PROTONIX) 40 mg tablet Take 1 tablet by mouth every 12 hours. Yes glipiZIDE (GLUCOTROL XL) 10mg 24 hr tablet Take 1 tablet by mouth two times a day. Yes warfarin (COUMADIN) 2.5 mg tablet TAKE 1 TABLET BY MOUTH on Tuesday, Tuesday, Tuesday, and ; 2 tablets together to = 5mg on Tuesday, Tuesday and Tuesday at bedtdime; dose changes often, please give extra tablets Yes rosuvastatin (CRESTOR) 20 mg tablet Take 1 tablet by mouth once daily. Yes blood sugar diagnostic (BLOOD GLUCOSE TEST) test strip Test blood sugar(s) 1` times daily. Dx: Type 2 DM - Uncontrolled E11.65 Insulin: No Yes metoprolol tartrate, short acting, (LOPRESSOR) 50 mg tablet Take 50 mg by mouth two times a day. Yes losartan (COZAAR) 25 mg tablet Take 0.5 tablets by mouth every afternoon. Yes docusate sodium (STOOL SOFTENER ORAL) Take by mouth as needed. OTC Yes Lancets lancets Test blood sugar(s) 1` times daily. Dx: Type 2 DM - Uncontrolled E11.65 Insulin: No Yes hydrocortisone (ANUSOL-HC) 2.5 % rectal cream by RECTAL route twice daily. Yes multivitamin (MULTIPLE VITAMINS ORAL) Take by mouth. Yes alcohol swabs (ALCOHOL PREP PADS) Apply 1 application to affected area once daily. Yes loratadine (CLARITIN) 10 mg tablet Take 10 mg by mouth once daily. Yes pioglitazone (ACTOS) 15 mg tablet Take 1 tablet by mouth once daily. Patient not taking: Reported on 10/17/2024 acetaminophen (TYLENOL) 325 mg tablet Take 500 mg by mouth. 2 TABLETS AT HS Patient not taking: Reported on 10/17/2024 No medication comments found. ALLERGIES Allergen Reactions Gabapentin Other: See Comments Dizziness Accupril [Quinapril* Other: See Comments Bextra [Valdecoxib] GI Upset Celebrex [Celecoxib] GI Upset Codeine Other: See Comments Entex La [Phenyleph* Other: See Comments Glucophage [Metform* Other: See Comments Lipitor [Atorvastat* Other: See Comments Lodine [Etodolac] GI Upset Naprosyn [Naproxen] Other: See Comments Nsaids (Non-Steroid* Other: See Comments Pravachol [Pravasta* Other: See Comments Worsening abdominal pain Sulfa (Sulfonamide * GI Upset Ultracet [Tramadol-* Other: See Comments Vicodin [Hydrocodon* Other: See Comments Vioxx [Rofecoxib] Other: See Comments Zocor [Simvastatin] Other: See Comments Objective PHYSICAL EXAM: General: alert and oriented and healthy appearance. Pertinent negatives noted - not distressed. Skin: normal color, no rash or lesions. HEENT: EOM intact, pupils equal round and pupils reactive to light. Pertinent negatives noted - no carotid bruit. Cardiovascular: regular rate and rhythm, normal S1 and S2, no rub, murmurs, or gallop. Respiratory: normal breath sounds, no wheezes or crackles. No chest wall deformity or tenderness. Abdomen: bowel sounds present and soft. Pertinent negatives noted - not tender. Extremities: no deformity, no edema or tenderness, no joint swelling or clubbing. Positive for edema (ankles). Neurological: normal cognition and motor skills. Gait normal. No weakness or sensory deficit. PAIN ASSESSMENT: VITALS: BP 118/52 Pulse 76 Temp (Src) 97.3 (Temporal) Resp 14 Ht 5' 3.5 (1.61m) Wt 197 lb (89.4kg) SpO2 97% BMI 34.35 kg/(m^2). Diagnostic tests reviewed for today's visit: Lab Value Units Date High Low HB 11.4 g/dL 09/27/2024 15.5 11.5 HCT 35.0 % 09/27/2024 46.0 36.0 WBC 7.40 k/uL 09/27/2024 11.00 3.70 PLT 234 k/uL 09/27/2024 400 150 NA 138 mmol/L 08/13/2024 144 136 K 4.4 mmol/L 08/13/2024 5.1 3.7 GLUC 163 mg/dL 08/13/2024 99 74 BUN 17 mg/dL 08/13/2024 21 7 CREAT 1.04 mg/dL 08/13/2024 0.96 0.58 PTSEC No results within date range. INR No results within date range. APTT No results within date range. ALT 21 U/L 10/08/2024 38 7 AST 38 U/L 10/08/2024 35 13 TBILI 0.5 mg/dL 10/08/2024 1.3 0.2 TSH No results within date range. Lab Value Units Date High Low HCGQT No results within date range. UHCG No results within date range. HCG, BODY* No results within date range. Lab Value Units Date High Low ABORHD No results within date range. ABSCREEN No results within date range. Hemoglobin A1C (%) Date Value 08/13/2024 8.0 02/16/2024 7.6 10/21/2023 7.5 07/26/2022 7.7 01/20/2022 7.3 04/30/2021 8.6 04/28/2020 7.9 12/31/2019 7.1 03/13/2019 8.1 No results found for this or any previous visit (from the past 8760 hours). Recent Results (from the past 97481 hours) ECHO Collection Time: 01/22/23 8:53 AM Impression CONCLUSIONS: - Technically difficult exam due to body habitus. - Exam indication: Sustained atrial fibrillation - The left ventricle is normal in size. There is moderate septal asymmetric left ventricular hypertrophy. Left ventricular systolic function is hyperdynamic. EF = 75 5% (3D) There is a 23 mm resting gradient in the left ventricular outflow tract, which increases to 54 mm with Valsalva. Global longitudinal strain -20.2% - The right ventricle is normal in size. Right ventricular systolic function is normal. Tricuspid annular displacement is 2.2 cm. - The patient has not had a prior [facility] echocardiographic exam for comparison. * * * Final * * * Instructions Given to Patient: Instructions located in the after visit summary. Patient given verbal and written preop instructions and voices comprehension and compliance. Recording using [employer] software for draft documentation of the visit was discussed with the patient/authorized sales representative meats; all questions welcomed and answered. Patient/authorized sales representative meats agreed to proceed SIGNATURE: Cherelle Melendrez APRN.CNP PATIENT NAME: Laisha Walker DATE: October 17, 2024 TIME: 2:01 PM PAGER/CONTACT #: [1] Social History Tobacco Use Smoking status: Never Smokeless tobacco: Never Vaping Use Vaping status: Never Used Substance Use Topics Alcohol use: Not Currently Comment: very seldom Drug use: No documented in this encounter [facility] 10-17-2024 Evaluation note Diagnosis Onset Date Resolution Asymmetric septal hypertrophy acute October 17, 2024 11:32am HLD (hyperlipidemia) acute Augu [facility] 2024 11:32am Bilateral carotid artery stenosis October 27, 2020 chronic October 17, 2024 11:32am Chronic anticoagulation chronic October 17, 2024 11:32am HTN (hypertension) chronic October 17, 2024 11:32am S/P placement of cardiac pacemaker chronic October 17, 2024 11:32am PAF (paroxysmal atrial fibrillation) inactive October 11:32am [facility] Work Phone: [phone]) 193-910608-12-2025 Instructions* Patient Instructions* Cherelle Melendrez APRN.MORTICIAN INVESTIGATOR - 10/16/2024 5:03 PM EDT Images from the original note were not included. [facility] PATIENT PREOPERATIVE INSTRUCTIONS Chelsi Cobb MD has scheduled you for your procedure at this surgery center: [facility] [place] [facility] Scheduling Office: [phone] --[address] [place] [address]. Please read below carefully for your personalized instructions. Arrival Time for Surgery: - To obtain your arrival time for surgery, call your physician's office the day before your surgery. - If you have received different instructions about finding out your arrival time from your surgeon, please follow those instructions. - If your surgery is scheduled for Tuesday, call the Tuesday before. Your surgeon s scheduler conveyor will tell you what time to call the office. - If you have not reached the departmental scheduler conveyor by 5 P.M., call [phone] after 5 P.M. the day before your surgery. DIET REQUIREMENTS The day before your colonoscopy, you may have a clear liquid diet (see below). The day of your colonoscopy, you may continue a clear liquid diet until 3 hours before your colonoscopy. Within 3 hours of your colonoscopy, take only any medications (as above) with a sip of water. Clear Liquid Diet Broth (chicken, beef or vegetable broth or bullion. Just the broth, no solids). Water Coffee or Tea (NO milk or creamer), but sugar and sugar substitutes are allowed. Clear liquids including clear, yellow, green, blue (NO red, NO orange, NO purple) Sodas / soft drinks Gatorade or other sports drinks Timmy-Aid or flavored drinks Plain Jell-O or other gelatins Fruit juice (strained; no-pulp) Popsicles or hard candy BOWEL PREPARATION (GOLYTELY/NULYTELY/TRILYTE/COLYTE) Split Dosing Bowel Prep: This means drinking your bowel prep in two doses. Split dosing helps cleanyour colon better and makes it less likely that your procedure will be canceled. Fill your prescription for Golytely/Nulytely/Trilyte/Colyte: The afternoon before your colonoscopy, mix the solution and refrigerate. You may add the flavor pack (if present) that came with the bowel preparation. Do not add ice, sugar, or other flavorings to the solution. You will drink your prep in two doses, by several hours. On the evening before your colonoscopy: 1. 6 PM drink the first half of the bowel preparation solution. Drink one 8-ounce glass every 15 minutes. 2. Six hours before your colonoscopy, drink the second half of the solution. Drink one 8-ounce glass every 15 minutes. 3. You may continue a clear liquid diet until 3 hours before your colonoscopy. Bowel prep can work differently from person to person. Some people's bowels move slowly and they may need different instructions. Please see your doctor in office or virtually for personalized bowel prep instructions if you have: Medical condition that needs special accommodations Had a poor bowel prep results or failed bowel prep attempts in the past. Had difficulty with anesthesia during the procedure. Medications: Unless instructed differently below, stay on all of your medications until your surgery. If you start any new medications after today's visit, please contact your surgeon. Pre-Surgery Med Instructions Medication Instructions pantoprazole DR (PROTONIX) 40 mg tablet If you normally take this medication in the morning, take the morning of surgery. glipiZIDE (GLUCOTROL XL) 10mg 24 hr tablet Do not take the day of surgery warfarin (COUMADIN) 2.5 mg tablet We will touch base with your prescribing provider to ensure it isOK for you to hold Coumadin for 3-5 days prior to your procedure. rosuvastatin (CRESTOR) 20 mg tablet If you normally take this medication in the morning, take the morning of surgery. metoprolol tartrate, short acting, (LOPRESSOR) 50 mg tablet If you normally take this medication inthe morning, take the morning of surgery. losartan (COZAAR) 25 mg tablet If you normally take this medication in the morning, take the morning of surgery. docusate sodium (STOOL SOFTENER ORAL) Do not take the day of surgery hydrocortisone (ANUSOL-HC) 2.5 % rectal cream Do not take the day of surgery multivitamin (MULTIPLE VITAMINS ORAL) Do not take the day of surgery loratadine (CLARITIN) 10 mg tablet If you normally take this medication in the morning, take the morning of surgery. If you are currently using a [id number]-[id number]-szcl injectable or oral medication for diabetes or weight loss such as Dulaglutide (Trulicity), Exenatide (Byetta, Bydureon), Liraglutide (Victoza, Saxenda), Semaglutide (Ozempic, Wegovy, Rybelsus), or Tirzepatide (Mounjaro), the medicine should be stopped at least 7 days before surgery. These medicines can cause food to remain in your stomach for a very longtime and increase the risks from surgery and anesthesia. Not stopping the medication for a long enough time may result in your surgery being rescheduled. If you start any new medications after today's visit, please contact the surgeon's office. Blood Thinning Medications: - Stop NSAIDS (Ibuprofen, Advil, Aleve, Motrin, Celebrex, Mobic, etc.) 7 days before surgery, as directed by your surgeon. - Stop Aspirin 7 days before surgery, as directed by your surgeon. - Stop herbal supplements 7 days before surgery. - You may take Tylenol (Acetaminophen) or any of your pain medications that do not contain aspirin or NSAIDS as needed. Important Reminders: - If you use CPAP/BIPAP, bring the machine with you to the surgery center. - If you are prescribed inhalers for breathing, continue using them. -Please be sure to brush your teeth and you can use mouth wash or rinse your mouth if dry. - Candy, mints, and tobacco products are NOT permitted the morning of surgery. - Hearing aids, dentures and glasses may be worn the morning of surgery. - If you have dentures or partials, please have a case to place them in or leave at home day of surgery. - NO jewelry, body piercings, makeup, hairpins or contacts are to be worn the day of surgery. If you develop symptoms such as a fever, cold, or flu, or have other changes to your health within TWO DAYS of scheduled surgery or the morning of surgery, please contact the surgery center above. Personal Belongings: -Please have photo ID and insurance cards. -If you do not have a copy of advance directives on file with us, please bring a copy with you on the day of surgery. - Leave ALL valuables and money at home or with family members. For Outpatient Procedures: - YOU MUST HAVE A RESPONSIBLE SHIP ENGINEER TAKE YOU HOME. A COAL SAMPLE TESTER OR SOCIAL MEDIA MANAGER CANNOT BE MADE A RESPONSIBLE SHIP ENGINEER. - We recommend that a responsible person stays with you overnight to take care of you. - You cannot stay in a hotel alone after outpatient surgery. You will not be permitted to have yoursurgery, if you do not have someone to take care of you. Please be aware that emergency situations arise, which may delay or change your surgical time. If this happens, we will notify you as soon as possible and regret any inconvenience. If you already have an Advance Directive, please fax a copy to [phone] or email to for it to be added to your chart. If you do not have an Advance Directive, you can find the appropriate form and more information at [email or web address]. We recommend that youcomplete the Advance Directive form found on the website and bring it with you the day of your surgery. It can be witnessed and scanned into your chart that day. Cherelle Melendrez APRN.MORTICIAN INVESTIGATOR [facility] NoteIMPRESSION: No abdominal ascites. Limited evaluation of the abdomen demonstrates cirrhotic liver morphology. Account Group Supervisor: RODERICK Transcribe Date/Time: Oct 01 2024 3:16P Dictated by : VIDA GAMBINO DO This examination was interpreted and the report reviewed and electronically signed by: VIDA GAMBINO DO on Oct 01 2024 3:18PM [facility] DIVISION OF [id number] History of Present illness Narrative* Mary Grace Sears RDMS - 10/01/2024 10:45 AM EDT Radiology Service Progress Note PATIENT NAME: Laisha Walker DATE OF SERVICE: October 01, 2024 TIME: 11:01 AM PATIENT IDENTITY VERIFICATION COMPLETED USING TWO (2) IDENTIFIERS: Name and Date of confirmedby patient verbally. FALL SCREENING: Has the patient had 2 falls in the last year or 1 fall with injury or currently using an Ambulatory Assistive Device (Walker, Cane, Wheelchair, Crutches, etc.)? Yes, Patient High Riskfor Falls What interventions were put in place to prevent falls during this visit? Increased Observations by Caregivers PATIENT GENDER DATA: Assigned female at . status: : No status:NO. PATIENT RELEVANT IMPLANT DATA REVIEWED: Not Applicable PATIENT PRESENTS WITH AN IMPLANTABLE OR ATTACHED ORE CHARGER: No RADIOLOGY DEPARTMENT: Ultrasound PERIPHERAL IV DATA: Not applicable SIGNED BY: Mary Grace Sears RDMS October 01, 2024 11:01 AM documented in this encounterSt[facility] NoteHNO ID: [id number] Author: MARY GRACE SEARS RDMS Service: ? Author Type: Blow Down Operator Type: Progress Notes Filed: 10/01/2024 11:01 Note Text: Radiology Service Progress Note PATIENT NAME: Laisha Walker DATE OF SERVICE: October 01, 2024 TIME: 11:01 AM PATIENT IDENTITY VERIFICATION COMPLETED USING TWO (2) IDENTIFIERS: Name and Date of confirmed by patient verbally. FALL SCREENING: Has the patient had 2 falls in the last year or 1 fall with injury or currently using an Ambulatory Assistive Device (Walker, Cane, Wheelchair, Crutches, etc.)? Yes, Patient High Risk for Falls What interventions were put in place to prevent falls during this visit? Increased Observations by Caregivers PATIENT GENDER DATA: Assigned female at . status: : No status: NO. PATIENT RELEVANT IMPLANT DATA REVIEWED: Not Applicable PATIENT PRESENTS WITH AN IMPLANTABLE OR ATTACHED ORE CHARGER: No RADIOLOGY DEPARTMENT: Ultrasound PERIPHERAL IV DATA: Not applicable SIGNED BY: Mary Grace Sears RDMS October 01, 2024 11:01 [facility]07-23-2025 Evaluation note* Diagnosis Hepatic cirrhosis, unspecified hepatic cirrhosis type, unspecified whether ascites present (HCC)- Primary High serum carbohydrate antigen 19-9 (CA19-9) Encounter for screening colonoscopy Special screening for malignant neoplasms, colon Gastroesophageal reflux disease without esophagitis Esophageal reflux documented in this encounter [facility] Telephone encounter Note* Telephone Encounter - Bassam Lancaster - 09/26/2024 12:06 PM EDT Bi Quesada This patient will need scheduled at [facility] for her Colonoscopy. Thank you. [facility] Miscellaneous Notes* Telephone Encounter - Bassam Lancaster - 09/26/2024 12:06 PM EDT Bi Quesada This patient will need scheduled at [facility] for her Colonoscopy. Thank you. documented in this encounterSt[facility] Instructions* Patient Instructions* Dariela Coulter PA-C - 09/26/2024 11:43 AM EDT COLONOSCOPY BOWEL PREPARATION INSTRUCTIONS GOLYTELY/NULYTELY/TRILYTE/COLYTE Your doctor has scheduled you for a colonoscopy. To have a successful colonoscopy, you must have a clean colon, that is empty. A clean colon allows your doctor to see the entire colon & diagnose issues like polyps or cancer. For doctors, a clean colon is like driving on a adina day; a dirty colon like driving in a storm. It is very important that you follow these instructions exactly, or your colonoscopy might not be as effective, could be canceled, and you may need to do the bowel prep and the colonoscopy again. TRANSPORTATION REQUIREMENTS You are receiving IV sedation. For your safety, a responsible adult escort must accompany you to and from your procedure: Your adult escort MUST be present with you at check-in for your colonoscopy. Your adult escort MUST remain in the endoscopy area until you are discharged. Your adult escort MUST transport you home once you are discharged. You are NOT allowed to operate any form of transportation (i.e. drive a car, bicycle, etc.) or leave the Endoscopy Center ALONE. It is not safe to do so. If you cannot meet these requirements, your procedure will be canceled. MEDICATION REQUIREMENTS For your safety, certain medications will need to be stopped or adjusted before you can have your procedure: BLOOD THINNERS: If you take blood thinners, such as Coumadin (warfarin), Plavix (clopidogrel), Ticlid (ticlopidine hydrochloride), Agrylin (anagrelide), Xarelto (Rivaroxaban), Pradaxa (Dabigatran), Eliquis (Apixaban), or Effient (Prasugrel), contact the physician who is prescribing these medications at least 2 weeks prior to your procedure to discuss any necessary adjustments. DIABETES: If you take medications for diabetes, your dosage may need to be adjusted. If you are being treated for diabetes with insulin, diabetic pills, or other injectable medicationsdo not take your REGULAR dose after midnight on the day of your procedure. If you are taking any other types of insulin such as Lantus, Humalog, NPH (long- acting insulin), or70/30 insulin, take half your normal dose the day before your procedure. DIABETES/WEIGHT MANAGEMENT: If you take medications for weight-loss, your dosage may need to be adjusted Contact the doctor who prescribes this medication for further instructions. If you take medications for weight-loss like semaglutide (Ozempic, Wegovy, Rybelsus), dulaglutide (Trulicity), liraglutide (Victoza, Saxenda), exenatide (Byetta, Bydureon), or lixisenatide (Adylyxin), stop your medication 1 week prior to your procedure. If you take medications like canagliflozin (Invokana), dapagliflozin (Farxiga, Forxiga), empagliflozin (Jardiance), stop your medication 3 days prior to your procedure. If you take ertugliflozin (Steglatro) stop your medication 4 days prior to your procedure. IRON: If you take iron pills, STOP them 1 week BEFORE your procedure, may resume after. OTHER MEDS: May take all other medications (including aspirin, antibiotics, water pills / diureticslike Lasix or Metolozone, blood pressure meds, etc.) at their usual scheduled time with a sip of water. DIET REQUIREMENTS The day before your colonoscopy, you may have a clear liquid diet (see below). The day of your colonoscopy, you may continue a clear liquid diet until 3 hours before your colonoscopy. Within 3 hours of your colonoscopy, take only any medications (as above) with a sip of water. Clear Liquid Diet Broth (chicken, beef or vegetable broth or bullion. Just the broth, no solids). Water Coffee or Tea (NO milk or creamer), but sugar and sugar substitutes are allowed. Clear liquids including clear, yellow, green, blue (NO red, NO orange, NO purple) Sodas / soft drinks Gatorade or other sports drinks Timmy-Aid or flavored drinks Plain Jell-O or other gelatins Fruit juice (strained; no-pulp) Popsicles or hard candy BOWEL PREPARATION (GOLYTELY/NULYTELY/TRILYTE/COLYTE) Split Dosing Bowel Prep: This means drinking your bowel prep in two doses. Split dosing helps cleanyour colon better and makes it less likely that your procedure will be canceled. Fill your prescription for Golytely/Nulytely/Trilyte/Colyte: The afternoon before your colonoscopy, mix the solution and refrigerate. You may add the flavor pack (if present) that came with the bowel preparation. Do not add ice, sugar, or other flavorings to the solution. You will drink your prep in two doses, by several hours. On the evening before your colonoscopy: 1. 6 PM drink the first half of the bowel preparation solution. Drink one 8-ounce glass every 15 minutes. 2. Six hours before your colonoscopy, drink the second half of the solution. Drink one 8-ounce glass every 15 minutes. 3. You may continue a clear liquid diet until 3 hours before your colonoscopy. Bowel prep can work differently from person to person. Some people's bowels move slowly and they may need different instructions. Please see your doctor in office or virtually for personalized bowel prep instructions if you have: Medical condition that needs special accommodations Had a poor bowel prep results or failed bowel prep attempts in the past. Had difficulty with anesthesia during the procedure. FREQUENTLY ASKED QUESTIONS Q: What if I suffer from constipation? A: Recommend taking extra laxatives to resolve your constipation days prior to entering the bowel prep day. Q: What if have had prior poor preps results in past? A: Contact your physician as you will likely need additional bowel prep instructions. Q: What if I have motility issues like Parkinson's, MS (multiple sclerosis), wheelchair dependent, etc.? or on medications that slow bowel emptying (narcotics, gabapentin, anticholinergic medicationsetc.) A: Contact your physician as you will likely need extra time and additional laxatives to complete your bowel prep. Q: What if I cannot drink large volume of liquid? A: Start your prep 2-3 hours earlier to allow yourself more time to complete the entire prep. Q: What if I can't finish my bowel prep? A: If you cannot finish your entire bowel prep, it is likely that your colonoscopy will need to be rescheduled due to poor prep quality. Q: What if I had bariatric surgery? Do I still have to complete the entire prep? A: Yes, gastric bypass surgery involves the stomach & small bowel. You may need to drink smaller amounts, slower (may need more time to complete your bowel prep). Gastric bypass does not alter the length of your colon so you will need to complete the entire bowel prep, it may just take longer time to complete it. Q: What if I am on dialysis? A: Please consult your mirror specialist prior to scheduling to get instructions pertinent to you. In general, dialysis patients take the [employer] bowel prep and have the procedure same day of their dialysis (colonoscopy in AM, dialysis in PM). Q: How do I know if something is considered as clear liquid diet? A: If you can pour it in a glass and you can see through it, it is considered clear liquid Q: Can I eat nuts, seeds, beans, popcorn, dried fruits, vegetables & fruits that have skin peel? A: No, you will need to not eat these items starting 3 days prior to procedure. Q: Can I take Uber/Lyft/taxi/bus home? A: An adult MUST be present with you at check-in for your colonoscopy and remain in the endoscopy area until you are discharged. You can take Uber home only if this adult escort is with you at check in, remain in the endoscopy area until you are discharged, and takes the Uber with you to home. Q: Can I sleep it off here and drive myself home? A: No, you must have an adult with you at time of procedure check in, remain in the endoscopy center during your procedure, and drive you home. You cannot drive a vehicle after your procedure the rest of the day. documented in this encounterSt. [facility] NoteHNO ID: [id number] Author: DARIELA COULTER PA-C Service: ? Author Type: Physician Laboratory Immunologist Type: Progress Notes Filed: 09/26/2024 16:06 Note Text: CHIEF COMPLAINT: Patient presents with: EUS eval This consult was requested by No ref. provider found for an opinion regarding cirrhosis and elevated CA19-9. My final recommendations will be communicated to the requesting health care provider by way of the shared medical record for internal providers or letter via the [employer] for external providers. HPI: Laisha Walker is a 74 year old female who presents for EUS eval. Was told she had fatty liver 20+ years ago. Over the last few months, began having increasing dull pain, nausea, early satiety, fatigue, and loss of appetite. Food intake will slightly decrease abdominal pain and nausea. Really only tolerating peanut butter and mashed potatoes. Notes intermittent BRBPR when hemorrhoids get irritated. Denies weight loss, diarrhea, melena. Hx of duodenal ulcer and UGIB in 05/2024 evaluated with EGD - surgical intervention. 05/22/24 - EGD Latest Reference Range AND Units 04/15/20 10:14 05/06/20 10:36 08/05/20 13:56 CA19-9 <36 U/mL 90 (H) 101 (H) 79 (H) (H): Data is abnormally high Record Review: [facility] / Outside records reviewed. PAST MEDICAL HISTORY Diagnosis Date Atrial fibrillation (HCC) SEES DR. BARRERA Carotid stenosis, asymptomatic CVA (cerebral vascular accident) (HCC) post op after 2017 bilateral knee replacements - per pt was told by neurology that it was a questionable stroke Diabetes mellitus type 2 in obese 01/22/2023 DVT (deep venous thrombosis) (HCC) post op Dysthymic disorder Depression (non-psychotic) Esophageal reflux Essential hypertension, benign Goiter, unspecified Goiter Liver cirrhosis (HCC) Macular degeneration (senile) of retina, unspecified Macular degeneration Other and unspecified hyperlipidemia Renal carcinoma, right (HCC) S/P placement of cardiac pacemaker 01/25/2023 Patient underwent implantation of [employer] permanent pacemaker with right atrial and right ventricular apex leads with Dr. Steele on 01/24/2023. Type 2 diabetes mellitus (HCC) PAST SURGICAL HISTORY Procedure Laterality Date ANESTH,PACEMAKER INSERTION APPENDECTOMY 1963 RUPTURED APPENDIX ARTHRP KNE CONDYLEANDPLATU MEDIALANDLAT COMPARTMENTS Bilateral 2017 CHOLECYSTECTOMY 1996 Cholecystectomy COLONOSCOPY [facility] EGD EUS 06/11/2020 benign leiomyoma GE junction, mild antral gastropathy, fatty pancreas, likely cirrhotic liver, prominent dilated portal vein NEPHRECTOMY PARTIAL Right 05/18/2019 robotic PAST SURGICAL HISTORY OF 07/15/1999 LEFT SHOULDER PAST SURGICAL HISTORY OF Left 2018 REPAIR OF LEFT KNEE FRACTURE TOTAL ABDOMINAL HYSTERECT W/WO RMVL TUBE OVARY 1985 Hysterectomy, JERRY Allergies: ALLERGIES Allergen Reactions Gabapentin Other: See Comments Dizziness Accupril [Quinapril* Other: See Comments Bextra [Valdecoxib] GI Upset Celebrex [Celecoxib] GI Upset Codeine Other: See Comments Entex La [Phenyleph* Other: See Comments Glucophage [Metform* Other: See Comments Lipitor [Atorvastat* Other: See Comments Lodine [Etodolac] GI Upset Naprosyn [Naproxen] Other: See Comments Nsaids (Non-Steroid* Other: See Comments Pravachol [Pravasta* Other: See Comments Worsening abdominal pain Sulfa (Sulfonamide * GI Upset Ultracet [Tramadol-* Other: See Comments Vicodin [Hydrocodon* Other: See Comments Vioxx [Rofecoxib] Other: See Comments Zocor [Simvastatin] Other: See Comments Medications: glipiZIDE (GLUCOTROL XL) 10mg 24 hr tablet Take 1 tablet by mouth two times a day. warfarin (COUMADIN) 2.5 mg tablet TAKE 1 TABLET BY MOUTH on Tuesday, Tuesday, Tuesday, and ; 2 tablets together to = 5mg on Tuesday, Tuesday and Tuesday at bedtdime; dose changes often, please give extra tablets rosuvastatin (CRESTOR) 20 mg tablet Take 1 tablet by mouth once daily. pantoprazole DR (PROTONIX) 40 mg tablet Take 1 tablet by mouth every 12 hours. blood sugar diagnostic (BLOOD GLUCOSE TEST) test strip Test blood sugar(s) 1` times daily. Dx: Type 2 DM - Uncontrolled E11.65 Insulin: No metoprolol tartrate, short acting, (LOPRESSOR) 50 mg tablet Take 50 mg by mouth two times a day. losartan (COZAAR) 25 mg tablet Take 0.5 tablets by mouth every afternoon. docusate sodium (STOOL SOFTENER ORAL) Take by mouth as needed. OTC Lancets lancets Test blood sugar(s) 1` times daily. Dx: Type 2 DM - Uncontrolled E11.65 Insulin: No hydrocortisone (ANUSOL-HC) 2.5 % rectal cream by RECTAL route twice daily. multivitamin (MULTIPLE VITAMINS ORAL) Take by mouth. loratadine (CLARITIN) 10 mg tablet Take 10 mg by mouth once daily. pioglitazone (ACTOS) 15 mg tablet Take 1 tablet by mouth once daily. alcohol swabs (ALCOHOL PREP PADS) Apply 1 application to affected area once daily. acetaminophen (TYLENOL) 325 mg tablet Take (more content not included)... [facility]07-23-2025 History of Present illness Narrative* Dariela Coulter PA-C - 09/26/2024 10:36 AM EDT CHIEF COMPLAINT: Patient presents with: EUS eval This consult was requested by No ref. provider found for an opinion regarding cirrhosis and elevated CA19-9. My final recommendations will be communicated to the requesting health care provider by way of the shared medical record for internal providers or letter via the [employer] Servicefor external providers. HPI: Laisha Walker is a 74 year old female who presents for EUS eval. Was told she had fatty liver 20+ years ago. Over the last few months, began having increasing dull pain, nausea, early satiety, fatigue, and loss of appetite. Food intake will slightly decrease abdominal pain and nausea. Really only tolerating peanut butter and mashed potatoes. Notes intermittent BRBPR when hemorrhoids get irritated. Denies weight loss, diarrhea, melena. Hx of duodenal ulcer and UGIB in 05/2024 evaluated with EGD - surgical intervention. 05/22/24 - EGD Latest Reference Range & Units 04/15/20 10:14 05/06/20 10:36 08/05/20 13:56 CA19-9 <36 U/mL 90 (H) 101 (H) 79 (H) (H): Data is abnormally high Record Review: [facility] / Outside records reviewed. PAST MEDICAL HISTORY Diagnosis Date Atrial fibrillation (HCC) SEES DR. BARRERA Carotid stenosis, asymptomatic CVA (cerebral vascular accident) (HCC) post op after 2017 bilateral knee replacements - per pt was told by neurology that it was a questionable stroke Diabetes mellitus type 2 in obese 01/22/2023 DVT (deep venous thrombosis) (HCC) post op Dysthymic disorder Depression (non-psychotic) Esophageal reflux Essential hypertension, benign Goiter, unspecified Goiter Liver cirrhosis (HCC) Macular degeneration (senile) of retina, unspecified Macular degeneration Other and unspecified hyperlipidemia Renal carcinoma, right (HCC) S/P placement of cardiac pacemaker 01/25/2023 Patient underwent implantation of [employer] permanent pacemaker with right atrial and right ventricular apex leads with Dr. Steele on 01/24/2023. Type 2 diabetes mellitus (HCC) PAST SURGICAL HISTORY Procedure Laterality Date ANESTH,PACEMAKER INSERTION APPENDECTOMY 1963 RUPTURED APPENDIX ARTHRP KNE CONDYLE&PLATU MEDIAL&LAT COMPARTMENTS Bilateral 2017 CHOLECYSTECTOMY 1996 Cholecystectomy COLONOSCOPY [facility] EGD EUS 06/11/2020 benign leiomyoma GE junction, mild antral gastropathy, fatty pancreas, likely cirrhotic liver, prominent dilated portal vein NEPHRECTOMY PARTIAL Right 05/18/2019 robotic PAST SURGICAL HISTORY OF 07/15/1999 LEFT SHOULDER PAST SURGICAL HISTORY OF Left 2018 REPAIR OF LEFT KNEE FRACTURE TOTAL ABDOMINAL HYSTERECT W/WO RMVL TUBE OVARY 1985 Hysterectomy, JERRY Allergies: ALLERGIES Allergen Reactions Gabapentin Other: See Comments Dizziness Accupril [Quinapril* Other: See Comments Bextra [Valdecoxib] GI Upset Celebrex [Celecoxib] GI Upset Codeine Other: See Comments Entex La [Phenyleph* Other: See Comments Glucophage [Metform* Other: See Comments Lipitor [Atorvastat* Other: See Comments Lodine [Etodolac] GI Upset Naprosyn [Naproxen] Other: See Comments Nsaids (Non-Steroid* Other: See Comments Pravachol [Pravasta* Other: See Comments Worsening abdominal pain Sulfa (Sulfonamide * GI Upset Ultracet [Tramadol-* Other: See Comments Vicodin [Hydrocodon* Other: See Comments Vioxx [Rofecoxib] Other: See Comments Zocor [Simvastatin] Other: See Comments Medications: glipiZIDE (GLUCOTROL XL) 10mg 24 hr tablet Take 1 tablet by mouth two times a day. warfarin (COUMADIN) 2.5 mg tablet TAKE 1 TABLET BY MOUTH on Tuesday, Tuesday, Tuesday, and ; 2 tablets together to = 5mg on Tuesday, Tuesday and Tuesday at bedtdime; dose changes often, please give extra tablets rosuvastatin (CRESTOR) 20 mg tablet Take 1 tablet by mouth once daily. pantoprazole DR (PROTONIX) 40 mg tablet Take 1 tablet by mouth every 12 hours. blood sugar diagnostic (BLOOD GLUCOSE TEST) test strip Test blood sugar(s) 1` times daily. Dx: Type2 DM - Uncontrolled Insulin: No metoprolol tartrate, short acting, (LOPRESSOR) 50 mg tablet Take 50 mg by mouth two times a day. losartan (COZAAR) 25 mg tablet Take 0.5 tablets by mouth every afternoon. docusate sodium (STOOL SOFTENER ORAL) Take by mouth as needed. OTC Lancets lancets Test blood sugar(s) 1` times daily. Dx: Type 2 DM - Uncontrolled Insulin: No hydrocortisone (ANUSOL-HC) 2.5 % rectal cream by RECTAL route twice daily. multivitamin (MULTIPLE VITAMINS ORAL) Take by mouth. loratadine (CLARITIN) 10 mg tablet Take 10 mg by mouth once daily. pioglitazone (ACTOS) 15 mg tablet Take 1 tablet by mouth once daily. alcohol swabs (ALCOHOL PREP PADS) Apply 1 application to affected area once daily. acetaminophen (TYLENOL) 325 mg tablet Take 500 mg by mouth. 2 TABLETS AT HS FAMILY HISTORY Problem Relation Age of Onset Arthritis Mother Hypertension Mother Dementia Mother Heart Father [place] Hypertension Father Heart disease Father other (DEPRESSION) Sister Stroke Sister Diabetes Brother Heart Attack Brother Heart disease Brother other (DEPRESSION) Brother Hypertension Brother Cancer No Family History none Employer And Job Title: None on file Years Of Education Completed: Not specified Marital Status: Social History Tobacco Use Smoking status: Never Smokeless tobacco: Never Vaping Use Vaping status: Never Used Substance Use Topics Alcohol use: Not Currently Comment: very seldom Drug use: No Review of Systems: Review of Systems Constitutional: Positive for appetite change and fatigue. Respiratory: Positive for shortness of breath. Cardiovascular: Positive for leg swelling. Gastrointestinal: Positive for abdominal distention, abdominal pain and nausea. Heartburn All other systems reviewed and are negative. Are you taking any blood thinners? Yes, Warfarin Physical Examination: BP 120/62 Pulse 73 Ht 5' 2 (1.58m) Wt 197 lb (89.4kg) SpO2 98% BMI 36.02 kg/(m^2). Physical Exam Constitutional: Appearance: Normal appearance. HENT: Head: Normocephalic and atraumatic. Eyes: General: No scleral icterus. Cardiovascular: Rate and Rhythm: Normal rate and regular rhythm. Heart sounds: Normal heart sounds. Pulmonary: Effort: Pulmonary effort is normal. Breath sounds: Normal breath sounds. Abdominal: General: Bowel sounds are normal. There is no distension. Palpations: Abdomen is soft. There is no shifting dullness, fluid wave or mass. Tenderness: There is no abdominal tenderness. Hernia: No hernia is present. Skin: General: Skin is warm and dry. Neurological: Mental Status: She is alert and oriented to person, place, and time. Psychiatric: Mood and Affect: Mood normal. Behavior: Behavior normal. ASSESSMENT: 1. 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 kPA of 15. Patientnoting fluctuating abdominal distention, nausea, and increased fatigue. - check afp, cea, liver panel, ammonia - plan for EUS in setting of elevated CA19-9 - due for colonoscopy, order placed today - ALPHA FETOPROTEIN; Future - CARCINOEMBRYONIC ANTIGEN; Future - US ASCITES SURVEY; Future - COLONOSCOPY SCREENING; Future - EGD - THERAPEUTIC, EUS, OR TUBE INTERVENTIONS; Future - COMPLETE BLOOD COUNT AND DIFFERENTIAL; Future - HEPATIC FUNCTION PNL; Future - AMMONIA; Future 2. 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 This is ongoing with prior elevations in 2020 with peak of 101. Will recheck other tumor markers today and plan for EUS. 3. Encounter for screening colonoscopy Due for screening colonoscopy. Patient cannot remember date of last colonoscopy, but had to cancel most resent planned colonoscopy due to her being ill. - peg 3350-Electrolytes (GOLYTELY) 236-22.74-6.74 -5.86 gram suspension; Take 4,000 mL by mouth onetime only for 1 dose. Refer to printed prep instructions from your provider. Dispense: 4000 mL; Refill: 0 - COLONOSCOPY SCREENING; Future 4. Gastroesophageal reflux disease without esophagitis Patient with GERD and recent UGIB due to duodenal ulcer in 05/2024. Doing well with pantoprazole 40 mg BID. Refill sent today. - pantoprazole DR (PROTONIX) 40 mg tablet; Take 1 tablet by mouth every 12 hours. Dispense: 60 tablet; Refill: 2 Supervising clinician was present and guided the care of the patient for the entire session on thisdate. All documentation was reviewed and agreed upon. Adria Ansari MD DATE: 09/26/24 TIME: 10:42 AM documented in this encounterSt. [facility]07-[facility] Radiology Diagnostic study [facility]06-27-2025 Telephone encounter Note* Telephone Encounter - Cheryl Harrison MA - 08/31/2024 3:51 PM EDT Pt notified and voiced understanding. Cheryl Harrison MA [facility]06-27-2025 Miscellaneous Notes* Telephone Encounter - Cheryl Harrison MA - 08/31/2024 3:51 PM EDT Pt notified and voiced understanding. Cheryl Harrison MA * Telephone Encounter - Flako Tracy MD - 08/31/2024 3:21 PM EDT She may try adding Actos 15 mg daily rather than Jardiance Flako Tracy MD * Telephone Encounter - Tresa Noriega LPN - 08/29/2024 11:12 AM EDT Patient calling said she can not afford the Jardiance rx is it over 500 dollars for 30 tablets. Asking if PCP wants her to take another medication that would be cheaper? Patient is asking for a refill on the Glipizide rx. Pending to file to [facility]. Please advise The patient has been identified by name and date of : Yes Caregiver verified no other encounters exist for this prescription request: Yes Caregiver confirmed with patient/requestor that no other refills are due, in the near future, with this provider at this time: Yes The last office visit in the department: 08/24/2024 Does the patient have a future office visit with this provider/department: Yes 11/29/2024 Requested Prescriptions Pending Prescriptions Disp Refills glipiZIDE XL (GLUCOTROL XL) 10 mg 24 hr tablet 60 tablet 5 Sig: Take 1 tablet by mouth two times a day. Tresa Noriega LPN August 29, 2024 11:18 AM documented in this encounterSt. Rita'[facility]06-27-2025 Telephone encounter Note * Telephone Encounter - Flako Tracy MD - 08/31/2024 3:21 PM EDT She may try adding Actos 15 mg daily rather than Jardiance Flako Tracy MD [facility] Telephone encounter Note* Telephone Encounter - Tresa Noriega LPN - 08/29/2024 11:12 AM EDT Patient calling said she can not afford the Jardiance rx is it over 500 dollars for 30 tablets. Asking if PCP wants her to take another medication that would be cheaper? Patient is asking for a refill on the Glipizide rx. Pending to file to [facility] pharmacy. Please advise The patient has been identified by name and date of : Yes Caregiver verified no other encounters exist for this prescription request: Yes Caregiver confirmed with patient/requestor that no other refills are due, in the near future, with this provider at this time: Yes The last office visit in the department: 08/24/2024 Does the patient have a future office visit with this provider/department: Yes 11/29/2024 Requested Prescriptions Pending Prescriptions Disp Refills glipiZIDE XL (GLUCOTROL XL) 10 mg 24 hr tablet 60 tablet 5 Sig: Take 1 tablet by mouth two times a day. Tresa Noriega LPN August 29, 2024 11:[address] [facility] History of Present illness Narrative* Flako Tracy MD - 08/24/2024 11:00 AM EDT Chief Complaint Patient presents with: 6 Month Exam HPI Laisha Walker is a 74 year old female who presents here today for 6 month follow up. Has an advanced directive. Denies any bowel, Gi, or urinary issues. Uses OTC stool softeners as needed. Uses Anusol rectal cream BID as needed for hemorrhoids. Chronic constipation. Hx of left kidney cancer. Follows with Gastro Dr. Coates for liver. Getting CT done routinely every 3-6 months. Pt was referred to Urology at last visit in Feb for chronic UTI. GERD: Sx controlled with Protonix 40 mg 1 pill BID. DM: Checking BS once x a day with FBS 150-180. Taking Glucotrol xl 10 mg 1 pill BID. Denies any hypoglcyemic episodes. Some tingling in the toes of both feet. Follows with [facility], has appt next month. Does not follow with any Podiatrists for foot exams. HTN/A-fib: Follows with Social Welfare Administrator at [facility]. Taking Losartan 25 mg half pill daily and Lopressor 50 mg 1 pill BID. No chest pains, dizziness, or Shortness of Breath. Has pacemaker. Taking coumadin 2.5 mg taking 2.5 mg on Mon/Tu/Tue/Th and 5 mg Tue/Tue/Sun which is managed by Social Welfare Administrator. Lipid: Taking Crestor 20 mg daily, she states that this was reduced from BID due to hand cramps. Uses Tylenol as needed for chronic hip, groin, and back pain. Past medical history, appointments, medications, allergies reviewed. Previous Medical History PAST MEDICAL HISTORY Diagnosis Date Atrial fibrillation (HCC) SEES DR. BARRERA Carotid stenosis, asymptomatic CVA (cerebral vascular accident) (HCC) post op after 2017 bilateral knee replacements - per pt was told by neurology that it was a questionable stroke Diabetes mellitus type 2 in obese 01/22/2023 DVT (deep venous thrombosis) (HCC) post op Dysthymic disorder Depression (non-psychotic) Esophageal reflux Essential hypertension, benign Goiter, unspecified Goiter Liver cirrhosis (HCC) Macular degeneration (senile) of retina, unspecified Macular degeneration Other and unspecified hyperlipidemia Renal carcinoma, right (HCC) S/P placement of cardiac pacemaker 01/25/2023 Patient underwent implantation of [employer] permanent pacemaker with right atrial and right ventricular apex leads with Dr. Steele on 01/24/2023. Type 2 diabetes mellitus (HCC) Previous Surgical History PAST SURGICAL HISTORY Procedure Laterality Date APPENDECTOMY 1963 RUPTURED APPENDIX ARTHRP KNE CONDYLE&PLATU MEDIAL&LAT COMPARTMENTS Bilateral 2017 CHOLECYSTECTOMY 1996 Cholecystectomy COLONOSCOPY [facility] EGD EUS 06/11/2020 benign leiomyoma GE junction, mild antral gastropathy, fatty pancreas, likely cirrhotic liver, prominent dilated portal vein NEPHRECTOMY PARTIAL Right 05/18/2019 robotic PAST SURGICAL HISTORY OF 07/15/1999 LEFT SHOULDER PAST SURGICAL HISTORY OF Left 2018 REPAIR OF LEFT KNEE FRACTURE TOTAL ABDOMINAL HYSTERECT W/WO RMVL TUBE OVARY 1985 Hysterectomy, JERRY Family History FAMILY HISTORY Problem Relation Age of Onset Arthritis Mother Hypertension Mother Dementia Mother Heart Father [place] Hypertension Father Heart disease Father other (DEPRESSION) Sister Stroke Sister Diabetes Brother Heart Attack Brother Heart disease Brother other (DEPRESSION) Brother Hypertension Brother Cancer No Family History none Patient Allergies ALLERGIES Allergen Reactions Gabapentin Other: See Comments Dizziness Accupril [Quinapril* Other: See Comments Bextra [Valdecoxib] GI Upset Celebrex [Celecoxib] GI Upset Codeine Other: See Comments Entex La [Phenyleph* Other: See Comments Glucophage [Metform* Other: See Comments Lipitor [Atorvastat* Other: See Comments Lodine [Etodolac] GI Upset Naprosyn [Naproxen] Other: See Comments Nsaids (Non-Steroid* Other: See Comments Pravachol [Pravasta* Other: See Comments Worsening abdominal pain Sulfa (Sulfonamide * GI Upset Ultracet [Tramadol-* Other: See Comments Vicodin [Hydrocodon* Other: See Comments Vioxx [Rofecoxib] Other: See Comments Zocor [Simvastatin] Other: See Comments Current Medications Current Outpatient Medications on File Prior to Visit Medication Sig pantoprazole DR (PROTONIX) 40 mg tablet Take 1 tablet by mouth every 12 hours. blood sugar diagnostic (BLOOD GLUCOSE TEST) test strip Test blood sugar(s) 1` times daily. Dx: Type2 DM - Uncontrolled E11.65 Insulin: No glipiZIDE (GLUCOTROL XL) 10mg 24 hr tablet Take 1 tablet by mouth two times a day. metoprolol tartrate, short acting, (LOPRESSOR) 50 mg tablet Take 50 mg by mouth two times a day. rosuvastatin (CRESTOR) 10 mg tablet Take 20 mg by mouth once daily. losartan (COZAAR) 25 mg tablet Take 0.5 tablets by mouth every afternoon. docusate sodium (STOOL SOFTENER ORAL) Take by mouth as needed. OTC Lancets lancets Test blood sugar(s) 1` times daily. Dx: Type 2 DM - Uncontrolled E11.65 Insulin: No hydrocortisone (ANUSOL-HC) 2.5 % rectal cream by RECTAL route twice daily. multivitamin (MULTIPLE VITAMINS ORAL) Take by mouth. alcohol swabs (ALCOHOL PREP PADS) Apply 1 application to affected area once daily. loratadine (CLARITIN) 10 mg tablet Take 10 mg by mouth once daily. acetaminophen (TYLENOL) 325 mg tablet Take 500 mg by mouth. 2 TABLETS AT HS No current facility-administered medications on file prior to visit. Social History Social History Tobacco Use Smoking status: Never Smokeless tobacco: Never Vaping Use Vaping status: Never Used Substance Use Topics Alcohol use: Yes Comment: very seldom Drug use: No EXAM: BP 120/70 Pulse 78 Resp 16 Wt 91.6 kg (201 lb 15.1 oz) SpO2 99% BMI 35.78 kg/m General Appearance: Well appearing, alert, in no acute distress, well-hydrated, well nourished. andObese. Lungs: Lungs clear to auscultation. No wheezing, rhonchi, rales.. Heart: RRR without murmur, gallop, or rubs. No ectopy. Health Maintenance List Diabetic Foot Exam Never done Hepatitis A Vaccine(1 of 2 - Risk 2-dose series) Never done Hepatitis B Vaccine(1 of 3 - Risk 3-dose series) Never done RSV Vaccine(1 - 1-dose 75+ series) Never done Advance Directive Discussion due on 03/07/2024 Medicare Advantage Annual Wellness Visit due on 03/07/2024 Dilated Retinal Exam due on 05/09/2024 Shingrix Vaccine(1 of 2) due on 02/15/2025 Covid-19 Vaccine( season) due on 02/15/2025 Pneumococcal Vaccine: 50+(1 of 2 - PCV) due on 02/15/2025 Urine Albumin:Creatinine Ratio due on 10/20/2024 Influenza Vaccine(Season Ended) due on 11/05/2024 HbA1C due on 11/13/2024 Depression Screening due on 02/15/2025 Anxiety Screening due on 02/15/2025 Annual PCP Team Chronic Disease Visit due on 06/08/2025 LDL Cholesterol due on 08/13/2025 Serum Creatinine due on 08/13/2025 Hemoglobin/Hematocrit due on 08/13/2025 DTaP,Tdap,Td Vaccine(3 - Td or Tdap) due on 03/11/2033 Bone Density Screening Completed Hepatitis C Screening Completed Mammogram Screening Discontinued Colorectal Cancer Screening Discontinued Data reviewed Results Only on 08/13/2024 Component Date Value Hemoglobin A1C 08/13/2024 8.0 (H) Estimated Average Glucose 08/13/2024 183 Protein, Total 08/13/2024 7.6 Albumin 08/13/2024 4.0 Calcium, Total 08/13/2024 9.5 Bilirubin, Total 08/13/2024 0.5 Alkaline Phosphatase 08/13/2024 94 AST 08/13/2024 34 ALT 08/13/2024 18 Glucose 08/13/2024 163 (H) BUN 08/13/2024 17 Creatinine 08/13/2024 1.04 (H) Sodium 08/13/2024 138 Potassium 08/13/2024 4.4 Chloride 08/13/2024 103 CO2 08/13/2024 22 Anion Gap 08/13/2024 13 Estimated Glomerular Guillaume* 08/13/2024 56 (L) Cholesterol, Total 08/13/2024 193 Triglyceride 08/13/2024 388 (H) HDL Cholesterol 08/13/2024 44 LDL Cholesterol, Calcula* 08/13/2024 86 Non HDL Cholesterol 08/13/2024 149 (H) VLDL Cholesterol 08/13/2024 62 (H) TC:HDL Ratio 08/13/2024 4.39 LDL:HDL Ratio 08/13/2024 1.95 Fasting Time 08/13/2024 12 WBC 08/13/2024 6.27 RBC 08/13/2024 4.17 Hemoglobin 08/13/2024 11.2 (L) Hematocrit 08/13/2024 35.7 (L) MCV 08/13/2024 85.6 MCH 08/13/2024 26.9 MCHC 08/13/2024 31.4 RDW-CV 08/13/2024 14.5 Platelet Count 08/13/2024 209 MPV 08/13/2024 12.5 Neutrophils % 08/13/2024 51.4 Abs Neut 08/13/2024 3.22 Lymphocytes % 08/13/2024 36.8 Abs Lymph 08/13/2024 2.31 Monocytes % 08/13/2024 8.3 Abs [place] 08/13/2024 0.52 Eosinophils % 08/13/2024 1.9 Abs Eosin 08/13/2024 0.12 Basophils % 08/13/2024 1.3 Abs Baso 08/13/2024 0.08 Immature Granulocytes % 08/13/2024 0.3 Abs Immature Gran 08/13/2024 <0.03 NRBC 08/13/2024 0.0 Absolute nRBC 08/13/2024 <0.01 Diff Type 08/13/2024 Auto ASSESSMENT/PLAN: 1. Paroxysmal atrial fibrillation (HCC) - ICD9: 427.31, ICD10: I48.0 (primary diagnosis) Stable Continue current medications. 2. Stage 3a chronic kidney disease (HCC) - ICD9: 585.3, ICD10: N18.31 - eGFR: 56 Stable Monitor - COMPREHENSIVE METABOLIC PANEL - COMPLETE BLOOD COUNT 3. Hyperlipidemia, unspecified hyperlipidemia type - ICD9: 272.4, ICD10: E78.5 - Controlled - Continue current medications - Counseled on healthy diet and regular exercise - COMPREHENSIVE METABOLIC PANEL - LIPID PANEL, FASTING 4. Obesity, Class II, BMI 35-39.9 - ICD9: 278.00, ICD10: E66.812 Stable - Behavioral intervention 5. Hypertension, essential - ICD9: 401.9, ICD10: I10 - Controlled - Continue current medications - Recommend home blood pressure monitoring, to bring results to next visit - Encouraged sodium restriction, DASH or Mediterranean diet - Recommend regular aerobic exercise - COMPREHENSIVE METABOLIC PANEL - LIPID PANEL, FASTING - COMPLETE BLOOD COUNT 6. Type 2 diabetes mellitus without complication, without long-term current use of insulin (HCC) - ICD9: 250.00, ICD10: E11.9 - Uncontrolled - Continue current medications - Start empagliflozin (Jardiance) - COMPREHENSIVE METABOLIC PANEL - LIPID PANEL, FASTING - HEMOGLOBIN A1C - EMPAGLIFLOZIN 10 MG TABLET Follow up in 3 months I agree with the Chief Complaint, ROS, and Past Histories independently gathered by the clinical user support analyst and the remaining scribed note accurately describes my personal service to the patient. Medical Decision Making: Problems: Moderate: 1+ chronic illnesses with change and 2+ stable chronic illnesses Data: Unique test result(s) reviewed: 3+ Unique test(s) ordered: 2 Risk: Moderate: Drug management Medical Decision Making Level: 4 - Moderate Flako Tracy MD The documentation for this note was completed by Cheryl Harrison MA acting as scribe for Flako Tracy MD. August 24, 2024 10:42 AM. Cheryl Harrison MA documented in this encounterSt. [facility] NoteHNO ID: [id number] Author: FLAKO TRACY MD Service: ? Author Type: Physician Type: Progress Notes Filed: 08/24/2024 17:31 Note Text: Chief Complaint Patient presents with: 6 Month Exam HPI Laisha Walker is a 74 year old female who presents here today for 6 month follow up. Has an advanced directive. Denies any bowel, Gi, or urinary issues. Uses OTC stool softeners as needed. Uses Anusol rectal cream BID as needed for hemorrhoids. Chronic constipation. Hx of left kidney cancer. Follows with Gastro Dr. Coates for liver. Getting CT done routinely every 3-6 months. Pt was referred to Urology at last visit in Feb for chronic UTI. GERD: Sx controlled with Protonix 40 mg 1 pill BID. DM: Checking BS once x a day with FBS 150-180. Taking Glucotrol xl 10 mg 1 pill BID. Denies any hypoglcyemic episodes. Some tingling in the toes of both feet. Follows with [facility], has appt next month. Does not follow with any Podiatrists for foot exams. HTN/A-fib: Follows with Social Welfare Administrator at [facility]. Taking Losartan 25 mg half pill daily and Lopressor 50 mg 1 pill BID. No chest pains, dizziness, or Shortness of Breath. Has pacemaker. Taking coumadin 2.5 mg taking 2.5 mg on Tue//Tue/ and 5 mg Tue/Tue/Tue which is managed by Social Welfare Administrator. Lipid: Taking Crestor 20 mg daily, she states that this was reduced from BID due to hand cramps. Uses Tylenol as needed for chronic hip, groin, and back pain. Past medical history, appointments, medications, allergies reviewed. Previous Medical History PAST MEDICAL HISTORY Diagnosis Date Atrial fibrillation (HCC) SEES DR. BARRERA Carotid stenosis, asymptomatic CVA (cerebral vascular accident) (HCC) post op after 2017 bilateral knee replacements - per pt was told by neurology that it was a questionable stroke Diabetes mellitus type 2 in obese 01/22/2023 DVT (deep venous thrombosis) (HCC) post op Dysthymic disorder Depression (non-psychotic) Esophageal reflux Essential hypertension, benign Goiter, unspecified Goiter Liver cirrhosis (HCC) Macular degeneration (senile) of retina, unspecified Macular degeneration Other and unspecified hyperlipidemia Renal carcinoma, right (HCC) S/P placement of cardiac pacemaker 01/25/2023 Patient underwent implantation of [place] permanent pacemaker with right atrial and right ventricular apex leads with Dr. Steele on 01/24/2023. Type 2 diabetes mellitus (HCC) Previous Surgical History PAST SURGICAL HISTORY Procedure Laterality Date APPENDECTOMY 1962 RUPTURED APPENDIX ARTHRP KNE CONDYLEANDPLATU MEDIALANDLAT COMPARTMENTS Bilateral 2017 CHOLECYSTECTOMY 1996 Cholecystectomy COLONOSCOPY [facility] EGD EUS 06/11/2020 benign leiomyoma GE junction, mild antral gastropathy, fatty pancreas, likely cirrhotic liver, prominent dilated portal vein NEPHRECTOMY PARTIAL Right 05/18/2019 robotic PAST SURGICAL HISTORY OF 07/15/1999 LEFT SHOULDER PAST SURGICAL HISTORY OF Left 2018 REPAIR OF LEFT KNEE FRACTURE TOTAL ABDOMINAL HYSTERECT W/WO RMVL TUBE OVARY 1985 Hysterectomy, JERRY Family History FAMILY HISTORY Problem Relation Age of Onset Arthritis Mother Hypertension Mother Dementia Mother Heart Father [place] Hypertension Father Heart disease Father other (DEPRESSION) Sister Stroke Sister Diabetes Brother Heart Attack Brother Heart disease Brother other (DEPRESSION) Brother Hypertension Brother Cancer No Family History none Patient Allergies ALLERGIES Allergen Reactions Gabapentin Other: See Comments Dizziness Accupril [Quinapril* Other: See Comments Bextra [Valdecoxib] GI Upset Celebrex [Celecoxib] GI Upset Codeine Other: See Comments Entex La [Phenyleph* Other: See Comments Glucophage [Metform* Other: See Comments Lipitor [Atorvastat* Other: See Comments Lodine [Etodolac] GI Upset Naprosyn [Naproxen] Other: See Comments Nsaids (Non-Steroid* Other: See Comments Pravachol [Pravasta* Other: See Comments Worsening abdominal pain Sulfa (Sulfonamide * GI Upset Ultracet [Tramadol-* Other: See Comments Vicodin [Hydrocodon* Other: See Comments Vioxx [Rofecoxib] Other: See Comments Zocor [Simvastatin] Other: See Comments Current Medications Current Outpatient Medications on File Prior to Visit Medication Sig pantoprazole DR (PROTONIX) 40 mg tablet Take 1 tablet by mouth every 12 hours. blood sugar diagnostic (BLOOD GLUCOSE TEST) test strip Test blood sugar(s) 1` times daily. Dx: Type 2 DM - Uncontrolled E11.65 Insulin: No glipiZIDE (GLUCOTROL XL) 10mg 24 hr tablet Take 1 tablet by mouth two times a day. metoprolol tartrate, short acting, (LOPRESSOR) 50 mg tablet Take 50 mg by mouth two times a day. rosuvastatin (CRESTOR) 10 mg tablet Take 20 mg by mouth once daily. losartan (COZAAR) 25 mg tablet Take 0.5 tablets by mouth every afternoon. docusate sodium (STOOL SOFTENER ORAL) Take by mouth as n (more content not included)...[facility]06-20-2025 Evaluation note* Diagnosis Paroxysmal atrial fibrillation (HCC)- Primary Atrial fibrillation Stage 3a chronic kidney disease (HCC) Hyperlipidemia, unspecified hyperlipidemia type Obesity, Class II, BMI 35-39.9 Obesity, unspecified Hypertension, essential Unspecified essential hypertension Type 2 diabetes mellitus without complication, without long-term current use of insulin (HCC) documented in this encounter [facility] Diagnostic study [facility]05-11-2025 Radiology Diagnostic study [facility] 07-06-2024 Telephone encounter Note* Telephone Encounter - Flako Tracy MD - 07/06/2024 4:55 PM EDT Noted Flako Tracy MD [facility] Miscellaneous Notes* Telephone Encounter - Flako Tracy MD - 07/06/2024 4:55 PM EDT Noted Flako Tracy MD * Telephone Encounter - Vickie Gaines RN - 07/06/2024 4:23 PM EDT [facility]- reports patient was discharged from today. Insurance would not authorize any more visits. documented in this encounterSt. [facility]05-[facility] Telephone encounter Note * Telephone Encounter - Vickie Gaines RN - 07/06/2024 4:23 PM EDT [facility]- reports patient was discharged from today. Insurance would not authorize any more visits. [facility]04-[facility]25 NoteHNO ID: [id number] Author: MECHELLE GARLAND RN Service: ? Author Type: Registered Nurse Type: Progress Notes Filed: 06/26/2024 15:14 Note Text: Value Based Care Coordination Chart Review Provider Action / FYI: OON Upon review of patient chart, the patient is excluded from Chronic Disease Management Patient is not a candidate for CDM at this time and placed in the following status: Deferred Action taken: No action needed . Mechelle Garland RN June 26, 2024 3:14 [facility]04-22-2025 History of Present illness Narrative* Mechelle Garland RN - 06/26/2024 3:14 PM EDT Value Based Care Coordination Chart Review Provider Action / FYI: OON Upon review of patient chart, the patient is excluded from Chronic Disease Management Patient is not a candidate for CDM at this time and placed in the following status: Deferred Action taken: No action needed . Mechelle Garland RN June 26, 2024 3:14 PM documented in this encounterSt. [facility]04-22-2025 NotePatient Outreach ([facility]) LAISHA WALKER ([id number]) 1950 F Date Time Provider Department 06/26/[address] [facility] During your visit today, we recorded the following information about you: Mechelle Garland RN 06/26/2024 3:14 PM Signed Value Based Care Coordination Chart Review Provider Action / FYI: OON Upon review of patient chart, the patient is excluded from Chronic Disease Management Patient is not a candidate for CDM at this time and placed in the following status: Deferred Action taken: No action needed . Mechelle Garland RN June 26, 2024 3:14 PM Allergies As of Date: 06/26/2024 Noted Allergy Reaction GABAPENTIN 11/03/2021 14 - Other: See Comments Comments: Dizziness ACCUPRIL (QUINAPRIL HCL) 07/05/2005 14 - Other: See Comments BEXTRA (VALDECOXIB) 07/05/2005 8 - GI Upset CELEBREX (CELECOXIB) 07/05/2005 8 - GI Upset Comments: CODEINE 07/05/2005 14 - Other: See Comments ENTEX LA (PHENYLEPHRINE-GUAIFENES*07/05/2005 14 - Other: See Comments GLUCOPHAGE (METFORMIN HCL) 07/05/2005 14 - Other: See Comments LIPITOR (ATORVASTATIN CALCIUM) 07/05/2005 14 - Other: See Comments LODINE (ETODOLAC) 07/05/2005 8 - GI Upset NAPROSYN (NAPROXEN) 07/05/2005 14 - Other: See Comments NSAIDS (NON-STEROIDAL ANTI-INFLAM*12/06/2019 14 - Other: See Comments PRAVACHOL (PRAVASTATIN SODIUM) 07/05/2005 14 - Other: See Comments Comments: Worsening abdominal pain SULFA (SULFONAMIDE ANTIBIOTICS) 07/08/2014 8 - GI Upset ULTRACET (TRAMADOL-ACETAMINOPHEN) 07/05/2005 14 - Other: See Comments VICODIN (HYDROCODONE-ACETAMINOPHE*07/05/2005 14 - Other: See Comments VIOXX (ROFECOXIB) 07/05/2005 14 - Other: See Comments ZOCOR (SIMVASTATIN) 07/05/2005 14 - Other: See Comments Date Reviewed: 06/12/2024 Reviewed by: Pam Saunders MA - Fully Assessed 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 - blood sugar diagnostic (BLOOD GLUCOSE TEST) test strip Test blood sugar(s) 1` times daily. Dx: Type 2 DM - Uncontrolled E11.65 Insulin: No - glipiZIDE (GLUCOTROL XL) 10mg 24 hr tablet Take 1 tablet by mouth two times a day. - metoprolol tartrate, short acting, (LOPRESSOR) 50 mg tablet Take 50 mg by mouth two times a day. - rosuvastatin (CRESTOR) 10 mg tablet Take 20 mg by mouth once daily. - losartan (COZAAR) 25 mg tablet Take 0.5 tablets by mouth every afternoon. - docusate sodium (STOOL SOFTENER ORAL) Take by mouth as needed. OTC - Lancets lancets Test blood sugar(s) 1` times daily. Dx: Type 2 DM - Uncontrolled E11.65 Insulin: No - hydrocortisone (ANUSOL-HC) 2.5 % rectal cream by RECTAL route twice daily. - multivitamin (MULTIPLE VITAMINS ORAL) Take by mouth. - alcohol swabs (ALCOHOL PREP PADS) Apply 1 application to affected area once daily. - loratadine (CLARITIN) 10 mg tablet Take 10 mg by mouth once daily. - acetaminophen (TYLENOL) 325 mg tablet Take 500 mg by mouth. 2 TABLETS AT HS Problem List As Of Date 06/26/2024 Noted Resolved LUMBAGO [M54.50] 07/06/2005 ENTHESOPATHY OF HIP [M76.899] 07/06/2005 SPRAIN LUMBAR REGION [S33.5XXA] 07/06/2005 Dyslipidemia associated with type 2 diabetes me* Paroxysmal atrial fibrillation (HCC) [I48.0] 01/15/2023 Carotid stenosis, asymptomatic [I65.29] Right renal mass [N28.89] 05/18/2019 Obesity, Class II, BMI 35-39.9 [E66.812] 05/19/2019 Renal carcinoma, right (HCC) [C64.1] 05/20/2019 01/21/2023 Other cirrhosis of liver (HCC) [K74.69] 05/23/2020 Stage 3a chronic kidney disease (HCC) [N18.31] 08/10/2022 Obesity, Class I, BMI 30-34.9 [E66.811] 11/19/2022 01/22/2023 Anticoagulant long-term use [Z79.01] 11/24/2022 Third degree atrioventricular block (HCC) [I44.*01/22/2023 Bradycardia [R00.1] 01/22/2023 At risk for stroke [Z91.89] 01/22/2023 Bilateral carotid artery stenosis [I65.23] 10/10/2016 Diagnosed: 01/22/2023 Gastroesophageal reflux disease [K21.9] 01/22/2023 Diagnosed: 01/22/2023 Hyperlipidemia [E78.5] 01/22/2023 Diagnosed: 01/22/2023 Recurrent falls [R29.6] 01/22/2023 Diagnosed: 01/22/2023 Orthostatic hypotension [I95.1] 01/17/2023 Diagnosed: 01/22/2023 Holley-Mary syncope [I45.9] 01/22/2023 Diabetes mellitus type 2 in obese (HCC) [E11.6*01/22/2023 S/P placement of cardiac pacemaker [Z95.0] 01/25/2023 Encounter Status:Closed by MECHELLE GARLAND RN on 06/26/24[facility] Miscellaneous Notes* Telephone Encounter - Simi Jung RN - 06/25/2024 6:59 PM EDT Pt called and is notified of providers results and instructions. Pt voices understanding. Simi Jung RN * Telephone Encounter - Otoniel King APRN.CNP - 06/25/2024 6:41 PM EDT Please let the patient know that her blood counts are almost back to normal. Much improved from when she was discharged from the hospital. We can recheck when she sees Dr Tracy in 2 months. Otoniel King CNP * Telephone Encounter - Trip Angeles MA - 06/25/2024 5:10 PM EDT Office received Lab results from [facility]. Recent TE this was supposed to be due in 1 month. [place] scanning for review. Trip Angeles MA documented in this encounterSt. [facility]04-21-2025 Telephone encounter Note * Telephone Encounter - Simi Jung RN - 06/25/2024 6:59 PM EDT Pt called and is notified of providers results and instructions. Pt voices understanding. Simi Jung RN [facility]04-21-20[facility] Telephone encounter Note* Telephone Encounter - Otoniel King APRN.CNP - 06/25/2024 6:41 PM EDT Please let the patient know that her blood counts are almost back to normal. Much improved from when she was discharged from the hospital. We can recheck when she sees Dr Tracy in 2 months. Otoniel King CNP [facility]04-21-20[facility] Telephone encounter Note* Telephone Encounter - Trip Angeles MA - 06/25/2024 5:10 PM EDT Office received Lab results from [facility]. Recent TE this was supposed to be due in 1 month. [place] scanning for review. Trip Angeles MA [facility]04-21-[facility] Telephone encounter Note* Telephone Encounter - Nik Kate RN - 06/25/2024 10:07 AM EDT Mary with [facility] calls to ask when patient is due for her CBC with diff as patient has requested they draw it with HH. Notified order was to be done in 1 month from last OV around 07/08/2024. Faxed to [phone] per request. Nik Kate RN [facility]04-21-2025 Miscellaneous Notes* Telephone Encounter - Nik Kate RN - 06/25/2024 10:07 AM EDT Mary with [facility] calls to ask when patient is due for her CBC with diff as patient has requested they draw it with HH. Notified order was to be done in 1 month from last OV around 07/08/2024. Faxed to [phone] per request. Nik Kate RN documented in this encounterSt. [facility]04-18-2025 Evaluation note* Diagnosis Onset Date Resolution Status Admit Date Left carotid artery occlusion acute June 22, 2024 8:24am Stenosis of right carotid artery acute June 22, 2024 8:24am Asymmetric septal hypertrophy acute October 17 11:32am HLD (hyperlipidemia) acute Augu st 2024 11:32am Bilateral carotid artery stenosis October 27, 2020 chronic October 17, 2 025 11:32am Chronic anticoagulation chronic A ugust 2024 11:32am HTN (hypertension) chronic October 17, 2024 11:32am S/P placement of cardiac pacemaker chronic October 17 11:32am PAF (paroxysmal atrial fibrillation) inactive October 17 11:32am [facility] Work Phone: 1(829) 824-240204-14-2025 Telephone encounter Note* Telephone Encounter - Flako Tracy MD - 06/18/2024 6:13 PM EDT Noted and agree Flako Tracy MD [facility] Miscellaneous Notes* Telephone Encounter - Flako Tracy MD - 06/18/2024 6:13 PM EDT Noted and agree Flako Tracy MD * Telephone Encounter - Tresa Noriega LPN - 06/18/2024 4:16 PM EDT Aimee from [facility] Home [facility] calling with OT plan of care, 2 visits weekly for 2 weeks, then 1 visit weekly for 1 week. Working on safety and fall prevention. No need for return call. documented in this encounterSt. [facility]04-14-2025 Telephone encounter Note * Telephone Encounter - Tresa Noriega LPN - 06/18/2024 4:16 PM EDT Aimee from [facility] calling with OT plan of care, 2 visits weekly for 2 weeks, then 1 visit weekly for 1 week. Working on safety and fall prevention. No need for return call. [facility]04-[facility] Evaluation note* Diagnosis Onset Date Resolution Status Admit Date Duodenal ulcer acute June 13, 2024 1:50pm Abdominal pain chronic June 13, 2024 1:50pm Cirrhosis chronic June 13 1:50pm Elevated CA 19-9 level chronic Ap 2024 1:50pm Left carotid artery occlusion acute June 22, 2024 8:24am Stenosis of right carotid artery acute June 22, 2024 8:24am [facility] Work Phone: 1(403) 846-134604-08-2025 NoteHNO ID: [id number] Author: JERROD BUSBY, DO Service: ? Author Type: Physician Type: Progress Notes Filed: 06/12/2024 10:58 Note Text: SERVICE DATE: June 12, 2024 PCP: Flako Tracy MD Subjective Patient ID: Umm is a 74 year old female. Chief Complaint: Patient presents with: Trochanteric bursitis right hip: Referred by Otoniel King PAIN EVALUATION 06/11/2024 1512 Pain Level: 3 Description: Aching;Numbness;Stiffness;Surgical/Not Incision;Tenderness;Tightness Duration Units: Hours Frequency: Intermittent Intervention/Comfort measure: Reposition;Positioning HPI Hip Pain: - Persistent pain in the lateral hip. - History of frequent falls; recent fall with significant impact on the hip. - Concerns about increased pain and hesitancy to bear weight on the affected side. - Previous arden placement in the femur following a fall in 2017. - Has received corticosteroid injections in the past for pain management. Knee Pain: - Pain and crepitus in the knee with movement. - History of knee replacement surgery. - Physical therapy exercises provided for knee mobility. Musculoskeletal: (+) hip pain, (+) knee pain, (+) weight-bearing difficulty, (+) frequent falls Review of Systems ACTIVE PROBLEM LIST Lumbago Enthesopathy of Hip Region Sprain of Lumbar Region Dyslipidemia Associated With Type 2 Diabetes Mellitus (Hcc) Paroxysmal Atrial Fibrillation (Hcc) Carotid Stenosis, Asymptomatic Right Renal Mass Obesity, Class II, Bmi 35-39.9 Other Cirrhosis of Liver (Hcc) Stage 3a Chronic Kidney Disease (Hcc) Anticoagulant Long-Term Use Third Degree Atrioventricular Block (Hcc) Bradycardia At Risk for Stroke Bilateral Carotid Artery Stenosis Gastroesophageal Reflux Disease Hyperlipidemia Recurrent Falls Orthostatic Hypotension Holley-Mary Syncope Diabetes Mellitus Type 2 in Obese S/P Placement of Cardiac Pacemaker PAST MEDICAL HISTORY Diagnosis Date Atrial fibrillation (HCC) SEES DR. BARRERA Carotid stenosis, asymptomatic CVA (cerebral vascular accident) (HCC) post op after 2017 bilateral knee replacements - per pt was told by neurology that it was a questionable stroke Diabetes mellitus type 2 in obese 01/22/2023 DVT (deep venous thrombosis) (HCC) post op Dysthymic disorder Depression (non-psychotic) Esophageal reflux Essential hypertension, benign Goiter, unspecified Goiter Liver cirrhosis (HCC) Macular degeneration (senile) of retina, unspecified Macular degeneration Other and unspecified hyperlipidemia Renal carcinoma, right (HCC) S/P placement of cardiac pacemaker 01/25/2023 Patient underwent implantation of [employer] permanent pacemaker with right atrial and right ventricular apex leads with Dr. Steele on 01/24/2023. Type 2 diabetes mellitus (HCC) PAST SURGICAL HISTORY Procedure Laterality Date APPENDECTOMY 1963 RUPTURED APPENDIX ARTHRP KNE CONDYLEANDPLATU MEDIALANDLAT COMPARTMENTS Bilateral 2017 CHOLECYSTECTOMY 1996 Cholecystectomy COLONOSCOPY [facility] EGD EUS 06/11/2020 benign leiomyoma GE junction, mild antral gastropathy, fatty pancreas, likely cirrhotic liver, prominent dilated portal vein NEPHRECTOMY PARTIAL Right 05/18/2019 robotic PAST SURGICAL HISTORY OF 07/15/1999 LEFT SHOULDER PAST SURGICAL HISTORY OF Left 2018 REPAIR OF LEFT KNEE FRACTURE TOTAL ABDOMINAL HYSTERECT W/WO RMVL TUBE OVARY 1985 Hysterectomy, JERRY FAMILY HISTORY Problem Relation Age of Onset Arthritis Mother Hypertension Mother Dementia Mother Heart Father [place] Hypertension Father Heart disease Father other (DEPRESSION) Sister Stroke Sister Diabetes Brother Heart Attack Brother Heart disease Brother other (DEPRESSION) Brother Hypertension Brother Cancer No Family History none Social History Tobacco Use Smoking status: Never Smokeless tobacco: Never Vaping Use Vaping status: Never Used Substance Use Topics Alcohol use: Yes Comment: very seldom Drug use: No ALLERGIES Allergen Reactions Gabapentin Other: See Comments Dizziness Accupril [Quinapril* Other: See Comments Bextra [Valdecoxib] GI Upset Celebrex [Celecoxib] GI Upset Codeine Other: See Comments Entex La [Phenyleph* Other: See Comments Glucophage [Metform* Other: See Comments Lipitor [Atorvastat* Other: See Comments Lodine [Etodolac] GI Upset Naprosyn [Naproxen] Other: See Comments Nsaids (Non-Steroid* Other: See Comments Pravachol [Pravasta* Other: See Comments Worsening abdominal pain Sulfa (Sulfonamide * GI Upset Ultracet [Tramadol-* Other: See Comments Vicodin [Hydrocodon* Other: See Comments Vioxx [Rofecoxib] Other: See Comments Zocor [Simvastatin] Other: See Comments MEDICATIONS: pantoprazole DR (PROTONIX) 40 mg tablet Take 1 tablet by mouth every 12 hours. blood sugar diagnostic (BLOOD GLUCOSE TEST) test strip Test blood sugar(s) 1` times daily. Dx: Type 2 DM - Uncontrolled (more content not included)... [facility]04-08-2025 History of Present illness Narrative* Jerrod Busby V, DO - 06/12/2024 10:52 AM EDTAssociated Order(s): Large Joint Arthro/Inj: R greater trochanteric bursa Post-Procedure Diagnose(s): Trochanteric bursitis of right hip Images from the original note were not included. SERVICE DATE: June 12, 2024 PCP: Flako Tracy MD Subjective Patient ID: Umm is a 74 year old female. Chief Complaint: Patient presents with: Trochanteric bursitis right hip: Referred by Otoniel King PAIN EVALUATION 06/11/2024 1512 Pain Level: 3 Description: Aching;Numbness;Stiffness;Surgical/Not Incision;Tenderness;Tightness Duration Units: Hours Frequency: Intermittent Intervention/Comfort measure: Reposition;Positioning HPI Hip Pain: - Persistent pain in the lateral hip. - History of frequent falls; recent fall with significant impact on the hip. - Concerns about increased pain and hesitancy to bear weight on the affected side. - Previous arden placement in the femur following a fall in 2017. - Has received corticosteroid injections in the past for pain management. Knee Pain: - Pain and crepitus in the knee with movement. - History of knee replacement surgery. - Physical therapy exercises provided for knee mobility. Musculoskeletal: (+) hip pain, (+) knee pain, (+) weight-bearing difficulty, (+) frequent falls Review of Systems ACTIVE PROBLEM LIST Lumbago Enthesopathy of Hip Region Sprain of Lumbar Region Dyslipidemia Associated With Type 2 Diabetes Mellitus (Hcc) Paroxysmal Atrial Fibrillation (Hcc) Carotid Stenosis, Asymptomatic Right Renal Mass Obesity, Class II, Bmi 35-39.9 Other Cirrhosis of Liver (Hcc) Stage 3a Chronic Kidney Disease (Hcc) Anticoagulant Long-Term Use Third Degree Atrioventricular Block (Hcc) Bradycardia At Risk for Stroke Bilateral Carotid Artery Stenosis Gastroesophageal Reflux Disease Hyperlipidemia Recurrent Falls Orthostatic Hypotension Holley-Mary Syncope Diabetes Mellitus Type 2 in Obese S/P Placement of Cardiac Pacemaker PAST MEDICAL HISTORY Diagnosis Date Atrial fibrillation (HCC) SEES DR. BARRERA Carotid stenosis, asymptomatic CVA (cerebral vascular accident) (HCC) post op after 2017 bilateral knee replacements - per pt was told by neurology that it was a questionable stroke Diabetes mellitus type 2 in obese 01/22/2023 DVT (deep venous thrombosis) (HCC) post op Dysthymic disorder Depression (non-psychotic) Esophageal reflux Essential hypertension, benign Goiter, unspecified Goiter Liver cirrhosis (HCC) Macular degeneration (senile) of retina, unspecified Macular degeneration Other and unspecified hyperlipidemia Renal carcinoma, right (HCC) S/P placement of cardiac pacemaker 01/25/2023 Patient underwent implantation of [employer] permanent pacemaker with right atrial and right ventricular apex leads with Dr. Steele on 01/24/2023. Type 2 diabetes mellitus (HCC) PAST SURGICAL HISTORY Procedure Laterality Date APPENDECTOMY 1963 RUPTURED APPENDIX ARTHRP KNE CONDYLE&PLATU MEDIAL&LAT COMPARTMENTS Bilateral 2017 CHOLECYSTECTOMY 1996 Cholecystectomy COLONOSCOPY [facility] EGD EUS 06/11/2020 benign leiomyoma GE junction, mild antral gastropathy, fatty pancreas, likely cirrhotic liver, prominent dilated portal vein NEPHRECTOMY PARTIAL Right 05/18/2019 robotic PAST SURGICAL HISTORY OF 07/15/1999 LEFT SHOULDER PAST SURGICAL HISTORY OF Left 2018 REPAIR OF LEFT KNEE FRACTURE TOTAL ABDOMINAL HYSTERECT W/WO RMVL TUBE OVARY 1985 Hysterectomy, JERRY FAMILY HISTORY Problem Relation Age of Onset Arthritis Mother Hypertension Mother Dementia Mother Heart Father [place] Hypertension Father Heart disease Father other (DEPRESSION) Sister Stroke Sister Diabetes Brother Heart Attack Brother Heart disease Brother other (DEPRESSION) Brother Hypertension Brother Cancer No Family History none Social History Tobacco Use Smoking status: Never Smokeless tobacco: Never Vaping Use Vaping status: Never Used Substance Use Topics Alcohol use: Yes Comment: very seldom Drug use: No ALLERGIES Allergen Reactions Gabapentin Other: See Comments Dizziness Accupril [Quinapril* Other: See Comments Bextra [Valdecoxib] GI Upset Celebrex [Celecoxib] GI Upset Codeine Other: See Comments Entex La [Phenyleph* Other: See Comments Glucophage [Metform* Other: See Comments Lipitor [Atorvastat* Other: See Comments Lodine [Etodolac] GI Upset Naprosyn [Naproxen] Other: See Comments Nsaids (Non-Steroid* Other: See Comments Pravachol [Pravasta* Other: See Comments Worsening abdominal pain Sulfa (Sulfonamide * GI Upset Ultracet [Tramadol-* Other: See Comments Vicodin [Hydrocodon* Other: See Comments Vioxx [Rofecoxib] Other: See Comments Zocor [Simvastatin] Other: See Comments MEDICATIONS: pantoprazole DR (PROTONIX) 40 mg tablet Take 1 tablet by mouth every 12 hours. blood sugar diagnostic (BLOOD GLUCOSE TEST) test strip Test blood sugar(s) 1` times daily. Dx: Type2 DM - Uncontrolled E11.65 Insulin: No glipiZIDE (GLUCOTROL XL) 10mg 24 hr tablet Take 1 tablet by mouth two times a day. metoprolol tartrate, short acting, (LOPRESSOR) 50 mg tablet Take 50 mg by mouth two times a day. rosuvastatin (CRESTOR) 10 mg tablet Take 20 mg by mouth once daily. losartan (COZAAR) 25 mg tablet Take 0.5 tablets by mouth every afternoon. warfarin (COUMADIN) 5 mg tablet 2.5 mg //Tuesday, 5 mg all other days or as directed docusate sodium (STOOL SOFTENER ORAL) Take by mouth as needed. OTC Lancets lancets Test blood sugar(s) 1` times daily. Dx: Type 2 DM - Uncontrolled E11.65 Insulin: No hydrocortisone (ANUSOL-HC) 2.5 % rectal cream by RECTAL route twice daily. multivitamin (MULTIPLE VITAMINS ORAL) Take by mouth. alcohol swabs (ALCOHOL PREP PADS) Apply 1 application to affected area once daily. loratadine (CLARITIN) 10 mg tablet Take 10 mg by mouth once daily. acetaminophen (TYLENOL) 325 mg tablet Take 500 mg by mouth. 2 TABLETS AT HS sucralfate (CARAFATE) 1 gram tablet Take 1 g by mouth three times a day before meals. (Patient not taking: Reported on 06/12/2024) Allergies, medications, past surgical history, family history and past medical history were reviewed per this encounter. Objective Ortho Exam General: No acute distress. MSK/Ext: Tenderness over greater trochanter; pain with external rotation of hip; crepitus in knee with movement. Labs Tests Imaging - X-ray: - Arden in the femur noted. - Mild degenerative changes of the hip joint with a small bone spur. - Knee arthroplasty hardware with screws intact, no evidence of loosening. Assessment/Plan ASSESSMENT Diagnosis (M70.61) Trochanteric bursitis of right hip Plan: CONSULT TO ORTHOPAEDICS 1. Trochanteric bursitis of right hip (M70.61) - Pain localized to the lateral aspect of the right hip, exacerbated by external rotation. - Recent X-ray on the 4th shows a arden in the femur, mild arthritis in the hip joint, and a bone spur; no severe degenerative changes. - Discussed etiology of trochanteric bursitis, including inflammation of the bursa between the muscle and bone at the greater trochanter. - Offered corticosteroid injection into the trochanteric bursa to reduce inflammation and alleviatepain; patient agreed to proceed. 2. Presence of right artificial knee joint (Z96.651) - Noted crepitus and crunching sounds in the knee, likely due to existing hardware. - X-ray confirms presence of screws and knee replacement components; no new abnormalities observed. - Continue physical therapy exercises to maintain joint mobility and function. 3. 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 - Discussed safety of corticosteroid injection in the context of anticoagulation; minimal risk of interaction. Office Visit on 06/12/24 CONSULT TO ORTHOPAEDICS PLAN Large Joint Arthro/Inj: R greater trochanteric bursa 06/12/2024 10:54 AM The procedure site was prepped in the usual sterile fashion. Site: R greater trochanteric bursa Medications: 6 mg betamethasone acetate-betamethasone sodium phosphate 6 mg/mL Anesthetics: 4 mL lidocaine (PF) 10 mg/mL (1 %); 4 mL BUPivacaine (PF) 0.5 % (5 mg/mL) Outcome: Tolerated well, no immediate complications Post-injection instructions were reviewed with the patient and the patient voiced understanding of these instructions. Informed Consent Consent Obtained: Verbal [place] Protocol SIGN IN TIME OUT FOLLOW-UP: No follow-ups on file. SIGNATURE: Jerrod Busby DO PATIENT NAME: Laisha Walker DATE: June 12, 2024 TIME: 10:52 AM * Pam Saunders MA - 06/12/2024 10:30 AM EDT Patient presents with: Trochanteric bursitis right hip: Referred by Otoniel [facility] INTAKE FLOWSHEET DATA Pain Pain Level: 3 Description: Aching, Numbness, Stiffness, Surgical/Not Incision, Tenderness, Tightness Duration Units: Hours Frequency: Intermittent Intervention/Comfort measure: Reposition, Positioning Patient states she is having lateral right hip pain. States she fell 2 weeks ago and landed on thathip. She has fallen 4-5 times in the past 6 weeks.Taking Tylenol or Tramadol for the pain as needed. X-rays done 06/08/24. documented in this encounterSt. [facility] NoteHNO ID: [id number] Author: PAM SAUNDERS MA Service: ? Author Type: Divisional Merchandising Manager Type: Progress Notes Filed: 06/12/2024 10:58 Note Text: Patient presents with: Trochanteric bursitis right hip: Referred by Otoniel [facility] FLOWSHEET DATA Pain Pain Level: 3 Description: Aching, Numbness, Stiffness, Surgical/Not Incision, Tenderness, Tightness Duration Units: Hours Frequency: Intermittent Intervention/Comfort measure: Reposition, Positioning Patient states she is having lateral right hip pain. States she fell 2 weeks ago and landed on that hip. She has fallen 4-5 times in the past 6 weeks.Taking Tylenol or Tramadol for the pain as needed. X-rays done 06/08/24.[facility]04-07-2025 Telephone encounter Note* Telephone Encounter - Flako Tracy MD - 06/11/2024 2:40 PM EDT Noted and agree Flako Tracy MD [facility]04-07-2025 Miscellaneous Notes* Telephone Encounter - Flako Tracy MD - 06/11/2024 2:40 PM EDT Noted and agree Flako Tracy MD * Telephone Encounter - Chasity Polk RN - 06/11/2024 2:20 PM EDT Darinel with [facility] PT calling with plan of care for patient. Physical Therapy will see patient 2 times per week for 3 weeks for functional mobility training. No call back needed if provider agreeable with plan. Chasity Polk RN documented in this encounterSt. [facility]04-[facility]-2025 Telephone encounter Note * Telephone Encounter - Chsaity Polk RN - 06/11/2024 2:20 PM EDT Darinel with [facility] PT calling with plan of care for patient. Physical Therapy will see patient 2 times per week for 3 weeks for functional mobility training. No call back needed if provider agreeable with plan. Chasity Polk RN [facility]04-07-2025 Telephone encounter Note* Telephone Encounter - Otoniel King APRN.CNP - 06/11/2024 11:29 AM EDT Noted. Otoniel Knig APRN.CNP [facility]04-07-2025 Miscellaneous Notes* Telephone Encounter - Otoniel King APRN.CNP - 06/11/2024 11:29 AM EDT Noted. Otoniel King APRN.JASEN * Telephone Encounter - Vickie Gaines RN - 06/11/2024 11:16 AM EDT [facility], and patient informed her she is not taking her carafate d/t nausea everytime she took it. Cheli guzman pt is seeing Dr. Jane later on this week, andadvised patient to discuss with Dr. Jane. Just wanted to let pcp know. documented in this encounterSt. [facility]04-07-2025 Telephone encounter Note * Telephone Encounter - Vickie Gaines RN - 06/11/2024 11:16 AM EDT [facility], and patient informed her she is not taking her carafate d/t nausea everytime she took it. Cheli guzman pt is seeing Dr. Jane later on this week, andadvised patient to discuss with Dr. Jane. Just wanted to let pcp know. [facility]04[facility] History of Present illness Narrative* Choco Leach Tech - 06/08/2024 1:40 PM EDT Radiology Service Progress Note PATIENT NAME: Laisha Walker DATE OF SERVICE: June 08, 2024 TIME: 1:30 PM PATIENT IDENTITY VERIFICATION COMPLETED USING TWO (2) IDENTIFIERS: Name and Date of confirmedby patient verbally. FALL SCREENING: Has the patient had 2 falls in the last year or 1 fall with injury or currently using an Ambulatory Assistive Device (Walker, Cane, Wheelchair, Crutches, etc.)? Yes, Patient High Riskfor Falls What interventions were put in place to prevent falls during this visit? Offered Assistance with Transfers/Clothing, Instructed Patient to Remain Seated (Not on Exam Table) Until Exam, and Increased Observations by Caregivers PATIENT GENDER DATA: Assigned female at . status: : No status:NO. PATIENT RELEVANT IMPLANT DATA REVIEWED: Not Applicable PATIENT PRESENTS WITH AN IMPLANTABLE OR ATTACHED ORE CHARGER: No RADIOLOGY DEPARTMENT: General X-ray: Exam(s) Completed: Pelvis X-Ray: Pelvis with Hip Right PERIPHERAL IV DATA: Not applicable SIGNED BY: Bruce Clayton June 08, 2024 1:30 PM documented in this encounterSt. [facility]04-04-2025 NoteHNO ID: [id number] Author: CHOCO LEACH Tech Service: ? Author Type: Technologist Type: Progress Notes Filed: 06/08/2024 14:02 Note Text: Radiology Service Progress Note PATIENT NAME: Laisha Walker DATE OF SERVICE: June 08, 2024 TIME: 1:30 PM PATIENT IDENTITY VERIFICATION COMPLETED USING TWO (2) IDENTIFIERS: Name and Date of confirmed by patient verbally. FALL SCREENING: Has the patient had 2 falls in the last year or 1 fall with injury or currently using an Ambulatory Assistive Device (Walker, Cane, Wheelchair, Crutches, etc.)? Yes, Patient High Risk for Falls What interventions were put in place to prevent falls during this visit? Offered Assistance with Transfers/Clothing, Instructed Patient to Remain Seated (Not on Exam Table) Until Exam, and Increased Observations by Caregivers PATIENT GENDER DATA: Assigned female at . status: : No status: NO. PATIENT RELEVANT IMPLANT DATA REVIEWED: Not Applicable PATIENT PRESENTS WITH AN IMPLANTABLE OR ATTACHED ORE CHARGER: No RADIOLOGY DEPARTMENT: General X-ray: Exam(s) Completed: Pelvis X-Ray: Pelvis with Hip Right PERIPHERAL IV DATA: Not applicable SIGNED BY: Bruce Clayton June 08, 2024 1:30 [facility]04-04-2025 Instructions* Patient Instructions* Otoniel King APRN.[facility] - 06/08/2024 1:13 PM EDT We discussed your recent hospitalization and falls: - You were recently hospitalized after falling while walking to the bathroom and hitting your head.A CT scan of your head, neck, chest, and abdomen showed no bleeding or acute abnormalities. - You are currently receiving home health physical therapy to improve your strength. Please continue with these sessions. If the therapists feel you need additional time or outpatient therapy, they will contact us. - You reported that your legs give out, particularly your right leg, which has a history of surgeryand a arden placement. You also mentioned pain in your right hip and knee. We ordered an X-ray of your right hip to evaluate for any issues. Please complete this X-ray today. - If your symptoms persist or worsen despite physical therapy, we may consider further evaluation, such as imaging or a referral to a specialist. - Schedule with orthopedics We discussed your blood pressure and dizziness: - Your blood pressure today was 115/56, which is lower than your usual readings. You reported feeling dizzy, especially when standing up from your wheelchair. This may be related to your blood pressure. - You are currently taking metoprolol and losartan for blood pressure. We discussed holding losartan temporarily to see if this improves your symptoms. However, after reviewing your blood pressure history, we decided to continue your current dose of losartan (25 mg daily). Please monitor your bloodpressure at home and let us know if you experience significant dizziness or other concerns. We discussed your anemia and blood counts: - During your hospitalization, your hemoglobin dropped to 9.4, likely due to a combination of your Coumadin use and a prior ulcer. This level did not require a blood transfusion. - You reported no recent black stools but noted bright red blood, likely from hemorrhoids. Continueusing Anusol as needed and consider sitz baths with warm water and Epsom salts up to 4 times daily to help reduce irritation. - We will repeat your blood work, including a complete blood count (CBC), in 1 month to monitor your hemoglobin levels. You do not need to come in for this; the lab will handle it. We discussed your liver findings: - A prior CT scan showed changes in your liver that may suggest cirrhosis. This will require further evaluation, possibly including a biopsy. Please follow up with Dr. Jane, your liver specialist, at your scheduled appointment on June 11. We discussed your diet and iron intake: - You are not currently taking an iron supplement. To support your blood counts, try to include iron-rich foods in your diet, such as fortified cereals, sweet potatoes, and other iron-containing foods. Avoid foods high in vitamin K, as they may interfere with your Coumadin. Follow-up and next steps: - Complete the X-ray of your right hip today. - Repeat your blood work (CBC) in 1 month. - Continue with home health physical therapy and follow their recommendations. -, Follow up with Dr. Jane on June 11 for further evaluation of your liver. - You have an appointment with Dr. Tracy in approximately 1.5 to 2 months. - Schedule with orthopedics Please contact our office if you experience worsening symptoms, such as increased dizziness, falls,black stools, or significant changes in your health. documented in this encounterSt. [facility]04-[facility] History of Present illness Narrative* Otoniel King APRN.CNP - 06/08/2024 1:00 PM EDT Chief Complaint Patient presents with: Hospital F/U: [facility] HPI Laisha Walker is a 74 year old female who presents here today for Hospital Discharge Follow up. follow up for weakness, falls, elevated troponin. Umm is a 74-year-old female with a history of cirrhosis, recent falls, and hemorrhoids, presentingfor follow-up after a recent hospitalization. Umm was recently hospitalized from June 02 to June 05 at [facility] following[facility] fall while walking to the bathroom, during which she hit her head. Imaging studies, including CT scans of the head, neck, chest, and abdomen, were performed and reportedly showed no acute abnormalities. However, the abdominal CT scan suggested possible cirrhosis, for which she has a follow- up appointment with Dr. Jane on the . She is also following up with private duty rn for neck artery issues in the next 2 weeks and is under the care of [facility] for Coumadin management. Since her discharge, Umm reports persistent dizziness, stating, my middle name is dizzy. She also experiences episodes of her legs giving out, particularly in the right knee, which has a history of surgery. She describes the knee as buckling and notes pain and swelling. Additionally, she reports pain in her right hip, where a arden was placed approximately a decade ago, stating, it's been hurting since the fall, not this fall...probably 4 falls ago. She expresses concern that the arden may be contributing to her symptoms. Umm also reports ongoing issues with hemorrhoids, experiencing bright red blood in her stool. She uses Anusol and occasionally takes sitz baths for relief. She denies any recent episodes of melena. She is currently receiving home health services for physical therapy to improve her strength. She monitors her blood pressure at home, noting readings around 150/60, but reports lower readings since her recent hospitalization. She is on metoprolol and losartan for blood pressure management. She also takes a multivitamin that includes iron. Past medical history, appointments, medications, allergies reviewed. EXAM: BP 120/66 Pulse 65 Resp 16 Wt 90.7 kg (200 lb) SpO2 96% BMI 35.44 kg/m General Appearance: Well appearing, alert, in no acute distress, well-hydrated, well nourished.. Lungs: Lungs clear to auscultation. No wheezing, rhonchi, rales.. Heart: RRR without murmur, gallop, or rubs. No ectopy. M/S: Moderate tenderness of the right lateral hip, unable to get onto exam table for extensive exam. 1. Generalized weakness (R53.1) Fall, sequela (W19.XXXS) Recent hospitalization from 06/02 to 06/05 at [facility] due to a fall while walking to the bathroom, resulting in head trauma. CT scans of the head, neck, chest, and abdomen were performed, all showing no acute abnormalities. Patient reports two episodes of legs giving out, leadingto falls. Currently receiving home health physical therapy for strengthening. - Continue home health physical therapy. - Monitor for any further episodes of weakness or falls. 2. Gastrointestinal hemorrhage associated with peptic ulcer (K27.4) Recent hospitalization noted a drop in hemoglobin to 9.4 g/dL, with initial levels in the mid-10s. No current melena reported, but bright red blood per rectum due to hemorrhoids. Patient uses Anusol and performs sitz baths for hemorrhoid management. - Continue Anusol and increase frequency of sitz baths or Epsom salt baths up to four times daily - Monitor for any signs of melena or increased bleeding. 3. Iron deficiency anemia due to chronic blood loss (D50.0) Hemoglobin levels have decreased, but not to the threshold for transfusion. Patient takes a multivitamin with iron. - Repeat CBC in one month to monitor hemoglobin levels. - Continue multivitamin with iron. - Encourage dietary intake of iron-rich foods. 4. Hypertension, essential (I10) Blood pressure readings have been variable, with recent in-office measurement at 120/66 mmHg and home readings reportedly around 150/60 mmHg. Currently on metoprolol and losartan 25 mg daily. - Continue current antihypertensive regimen. - Monitor blood pressure at home and report any significant changes. 5. Other cirrhosis of liver (HCC) (K74.69) CT scan findings suggestive of cirrhosis. Follow-up with Dr. Jane scheduled for next week to discuss potential liver biopsy for definitive diagnosis. - Follow-up with Dr. Jane on 06/11 to discuss liver biopsy. 6. Pain of right hip (M25.551) Chronic right hip pain exacerbated by recent falls. History of arden placement in the hip over a decade ago and frequenty falls. Pain reportedly originates in the hip and radiates down the leg, causinginstability. - Ordered X-ray of the right hip to evaluate for any acute changes or hardware issues. - Continue physical therapy. - See orthopedics RTO in 2 months, sooner if needed. I spent a total of 42 minutes on the date of the service which included preparing to see the patient, [id number] patient care, completing clinical documentation, obtaining and/or reviewing separately obtained history, performing a medically appropriate examination, counseling and educating the pat ient/family/caregiver, and ordering medications, tests, or procedures. This note was partly generated using SeatID voice recognition dictation and may contain some misspelled or inaccurate words missed on review. The patient consented to the use of Vgift software for draft documentation of the visit consistent with [facility] s Notice of Privacy Practices. documented in this encounterSt. Rita'S Hospital04-04-2025 NoteHNO ID: [id number] Author: OTONIEL KING APRN.JASEN Service: ? Author Type: Nurse Practitioner Type: Progress Notes Filed: 06/08/2024 13:23 Note Text: Chief Complaint Patient presents with: Hospital F/U: [facility] HPI Laisha Walker is a 74 year old female who presents here today for Hospital Discharge Follow up. follow up for weakness, falls, elevated troponin. Umm is a 74-year-old female with a history of cirrhosis, recent falls, and hemorrhoids, presenting for follow-up after a recent hospitalization. Umm was recently hospitalized from June 02 to June 05 at [facility] following a fall while walking to the bathroom, during which she hit her head. Imaging studies, including CT scans of the head, neck, chest, and abdomen, were performed and reportedly showed no acute abnormalities. However, the abdominal CT scan suggested possible cirrhosis, for which she has a follow-up appointment with Dr. Jane on the . She is also following up with private duty rn for neck artery issues in the next 2 weeks and is under the care of [facility] for Coumadin management. Since her discharge, Umm reports persistent dizziness, stating, my middle name is dizzy. She also experiences episodes of her legs giving out, particularly in the right knee, which has a history of surgery. She describes the knee as buckling and notes pain and swelling. Additionally, she reports pain in her right hip, where a arden was placed approximately a decade ago, stating, it's been hurting since the fall, not this fall...probably 4 falls ago. She expresses concern that the arden may be contributing to her symptoms. Umm also reports ongoing issues with hemorrhoids, experiencing bright red blood in her stool. She uses Anusol and occasionally takes sitz baths for relief. She denies any recent episodes of melena. She is currently receiving home health services for physical therapy to improve her strength. She monitors her blood pressure at home, noting readings around 150/60, but reports lower readings since her recent hospitalization. She is on metoprolol and losartan for blood pressure management. She also takes a multivitamin that includes iron. Past medical history, appointments, medications, allergies reviewed. EXAM: BP 120/66 Pulse 65 Resp 16 Wt 90.7 kg (200 lb) SpO2 96% BMI 35.44 kg/m? General Appearance: Well appearing, alert, in no acute distress, well-hydrated, well nourished.. Lungs: Lungs clear to auscultation. No wheezing, rhonchi, rales.. Heart: RRR without murmur, gallop, or rubs. No ectopy. M/S: Moderate tenderness of the right lateral hip, unable to get onto exam table for extensive exam. 1. Generalized weakness (R53.1) Fall, sequela (W19.XXXS) Recent hospitalization from 06/02 to 06/05 at [facility] due to a fall while walking to the bathroom, resulting in head trauma. CT scans of the head, neck, chest, and abdomen were performed, all showing no acute abnormalities. Patient reports two episodes of legs giving out, leading to falls. Currently receiving home health physical therapy for strengthening. - Continue home health physical therapy. - Monitor for any further episodes of weakness or falls. 2. Gastrointestinal hemorrhage associated with peptic ulcer (K27.4) Recent hospitalization noted a drop in hemoglobin to 9.4 g/dL, with initial levels in the mid-10s. No current melena reported, but bright red blood per rectum due to hemorrhoids. Patient uses Anusol and performs sitz baths for hemorrhoid management. - Continue Anusol and increase frequency of sitz baths or Epsom salt baths up to four times daily - Monitor for any signs of melena or increased bleeding. 3. Iron deficiency anemia due to chronic blood loss (D50.0) Hemoglobin levels have decreased, but not to the threshold for transfusion. Patient takes a multivitamin with iron. - Repeat CBC in one month to monitor hemoglobin levels. - Continue multivitamin with iron. - Encourage dietary intake of iron-rich foods. 4. Hypertension, essential (I10) Blood pressure readings have been variable, with recent in-office measurement at 120/66 mmHg and home readings reportedly around 150/60 mmHg. Currently on metoprolol and losartan 25 mg daily. - Continue current antihypertensive regimen. - Monitor blood pressure at home and report any significant changes. 5. Other cirrhosis of liver (HCC) (K74.69) CT scan findings suggestive of cirrhosis. Follow-up with Dr. Jane scheduled for next week to discuss potential liver biopsy for definitive diagnosis. - Follow-up with Dr. Jane on 06/11 to discuss liver biopsy. 6. Pain of right hip (M25.551) Chronic right hip pain exacerbated by recent falls. History of arden placement in the hip over a decade ago and frequenty falls. Pain reportedly originates in the hip and radiates down the leg, causing instability. - Ordered X-ray of (more content not included)...[facility] 06-07-2024 Telephone encounter Note* Telephone Encounter - Flako Tracy MD - 06/07/2024 1:48 PM EDT Noted and agree Flako Tracy MD [facility]04-03-2025 Miscellaneous Notes* Telephone Encounter - Flako Tracy MD - 06/07/2024 1:48 PM EDT Noted and agree Flako Tracy MD * Telephone Encounter - Tresa Nroiega LPN - 06/07/2024 1:33 PM EDT Jacquie from [facility] Home Health calling with residential plan of care, 1 visit weekly for 1 week, then 2 visits weekly for 1 week, then 1 visit weekly for 3 weeks. No need for return call. documented in this encounterSt. [facility]04-03-2025 Telephone encounter Note * Telephone Encounter - Tresa Noriega LPN - 06/07/2024 1:33 PM EDT Jacquie from [facility] Home [facility] calling with residential plan of care, 1 visit weekly for 1 week, then 2 visits weekly for 1 week, then 1 visit weekly for 3 weeks. No need for return call. [facility]04-01-2025 Telephone encounter Note* Telephone Encounter - Trip Angeles MA - 06/05/2024 3:55 PM EDT Return call to Georgie and notified of message below from Provider. Georgie verbalized understanding. Trip Angeles MA [facility]04-01-2025 Miscellaneous Notes* Telephone Encounter - Trip Angeles MA - 06/05/2024 3:55 PM EDT Return call to Georgie and notified of message below from Provider. Georgie verbalized understanding. Trip Angeles MA * Telephone Encounter - Flako Tracy MD - 06/05/2024 2:41 PM EDT I am agreeable to follow for HHC orders Flako Tracy MD * Telephone Encounter - Vickie Gaines, RN - 06/05/2024 12:48 PM EDT Georgie- [facility] HH- reports patient is being discharged from [facility] today with referral for [facility]HC SN PT OT. Admitted for falls/weakness & possible UTI. Georgie asking if pcp is agreeable to follow. Please phone Georgie with verbal: [phone] documented in this encounterSt. Rita'S Hospital04-01-2025 Telephone encounter Note * Telephone Encounter - Flako Tracy MD - 06/05/2024 2:41 PM EDT I am agreeable to follow for HHC orders Flako Tracy MD [facility]04-01-2025 Telephone encounter Note* Telephone Encounter - Vickie Gaines RN - 06/05/2024 12:48 PM EDT Georgie- [facility] HH- reports patient is being discharged from [facility] today with referral for [facility] SN PT OT. Admitted for falls/weakness & possible UTI. Georgie asking if pcp is agreeable to follow. Please phone Georgie with verbal: [phone] [facility]04-01-2025 Discharge summary [facility] Medical Records Department [address] [place] [address] Discharge Summary 06/05/24 1223 MR#: [id number] Acct: [id number] Name: LAISHA WALKER Rep #:[id number] : 1950 74 From: [place] Lopez MD PCP: Dr. Flako Tracy MD Status:KSENIA VARELA [id number] Providers Date of Admission: 06/02/24 Date of Discharge: 06/05/24 Primary Care Physician: Dr. Flako Tracy MD Reason For Visit: FALLS/WEAKNESS Diagnosis Discharge Diagnosis (1) Generalized weakness: Status: Acute Code(s): R53.1 - Weakness (2) Fall: Status: Acute Code(s): W19.XXXA - Unspecified fall, initial encounter (3) 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: Status: Acute Code(s): Z79.01 - imaging technologist (current) use of 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 (4) Debility: Status: Acute Code(s): R53.81 - Other malaise (5) Elevated troponin: Status: Acute Code(s): R79.89 - Other specified abnormal findings of blood chemistry (6) Dysuria: Status: Acute Code(s): R30.0 - Dysuria Plan Patient is a 74-year-old lady admitted with frequent falls. Patient had recently been diagnosed with upper GI bleed as well as acute influenza A infection 1. Physical deconditioning ? Secondary to recent hospitalization with influenza A and GI bleed. Patient admitted to regular nursing floor requested for PT OT eval and social media manager to assist with discharge planning 06/05/2024; awaiting insurance decision prior to disposition 2. Dysuria ? Patient urinalysis obtained unremarkable 3. Elevated troponin ? Secondary to demand ischemia from blood pressure 4.Recent GI bleed secondary to peptic ulcer disease Patient is on Carafate as well as Protonix 40 mg p.o. twice daily 5. Anemia ? Secondary to chronic disorder as well as recent acute blood loss anemia from bleeding peptic ulcer. Monitoring H&H and transfuse if patient becomes symptomatic or hemoglobin falls below 7 6. Carotid artery stenosis -90% stenosis of left w/significant collaterals, 50% stenosis of right per U/S 10/27/2020. Right [id number]% stenosis. Patient followed by vascular surgery as outpatient 7. History of complete heart block ? Status post pacemaker placed 7. Chronic atrial fibrillation ? Rate controlled on metoprolol patient is on warfarin close monitoring of H&H implemented ; went into rapid ventricular response heart rate back within normal limits 8. Dyslipidemia ?Patient is on statin therapy, continued at home dose 9. Hypertension ? Blood pressure controlled, home medications continued with dose adjustment as needed 10. Asymmetric septal hypertrophy -EF of 75% on last echo from January 2023; Continue ongoing outpatient follow- up with cardiology 11. 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 Diabetes mellitus type II -patient's oral hypoglycemics held. Placed on long acting insulin, Accu-Cheks a.c. and at bedtime and covered with sliding scale insulin 13. Hemorrhoids -Continue home Anusol 14. History of renal cell carcinoma -Remote; remains in remission 15. DVT prophylaxis -Continue home Coumadin with therapeutic INR presently CODE STATUS -DNR CCA with no intubation as verified at the time of admission Time spent in the patient's overall evaluation,decision-making process, review of diagnostic data, adjustment of management, discussion with other providers, nursing nursing and ancillary staff involved in patient's care documentation, 36minutes Medications at Discharge Home Medications acetaminophen 325 mg tablet 1,000 mg PO QHS 06/26/16 loratadine 10 mg tablet 10 mg PO QHS 30 days 07/23/16 docusate sodium 100 mg capsule (Colace) 200 mg PO QHS 01/21/23 multivitamin (Daily Multi-Vitamin tablet) 1 tab PO DAILY 11/17/23 hydrocortisone 2.5 % topical cream with perineal applicator (Anusol-HC) 1 applicPR QD-BID PRN hemorrhoids 02/04/23 promethazine 12.5 mg tablet 12.5 mg PO Q6H PRN nausea and vomiting 02/04/23 metoprolol tartrate 50 mg tablet 50 mg PO BID #180 tabs 02/24/24 rosuvastatin 20 mg tablet 20 mg PO QHS #90 tabs 03/13/24 glipizide 10 mg tablet, extended release 24 hr 10 mg PO BID 04/18/24 ondansetron 4 mg disintegrating tablet 4 mg PO Q8H PRN PRN Nausea #10 tabs 05/14/24 warfarin 2.5 mg tablet 2.5 mg PO MOTUWETH 05/15/24 warfarin 5 mg tablet 5 mg PO .FRSASU 05/15/24 pantoprazole 40 mg tablet,delayed release 40 mg PO BID #60 tabs 05/17/24 sucralfate 1 gram tablet 1 g PO TIDAC #90 tabs 05/17/24 losartan 25 mg tablet 12.5 mg (1/2 x 25 mg) PO DAILY #45 tabs 05/21/24 methocarbamol 500 mg tablet 500 mg PO 4X/DAY PRN Muscle pain/spasm #40 tabs 05/30/24 tramadol 50 mg tablet 50 mg PO Q6H PRN pain 3 days #12 tabs 05/30/24 Physical Exam Narrative GENERAL: cooperative HEENT: Atraumatic; normocephalic EYES; Anicteric, Normal Conjunctiva NECK; supple, normal thyroid, RESPIRATORY: Diminished to auscultation CARDIOVASCULAR: Irregular S1-S2 GI: soft, normoactive bowel sounds, : No Renal angle tenderness; EXTREMITIES: No edema, no clubbing, MUSCULOSKELETAL: no muscle wasting NEURO: Awake; no lateralizing signs. SKIN: No Rash PSYCH; Flat affect Weight / BMI Weight Weight: 92 kg Body Mass Index (BMI) 34.8 ABG / Lab / Microbiology Data 06/05/24 05:59 06/05/24 05:59 Laboratory: Laboratory Results - last 24 hr 06/04/24 16:24: POC Glucose 199 H 06/04/24 23:04: POC Glucose 160 H 06/05/24 05:59: WBC 6.3, RBC 3.45 L, Hgb 9.4 L, Hct 29.2 L, MCV 84.6, MCH 27.2, MCHC 32.2, RDW Std Deviation 44.3 H, RDW Coeff of Rukhsana 14.3, Plt Count 310, MPV 11.4, Immature Gran % (Auto) 0.300, Neut% (Auto) 51.6, Lymph % (Auto) 35.2, [place] % (Auto) 9.4, Eos % (Auto) 2.4, Baso % (Auto) 1.1 H, Absolute Neuts (auto) 3.3, Absolute Lymphs (auto) 2.22, Nucleated RBC % 0, Sodium 140, Potassium 4.3, Chlo ride 107, Carbon Dioxide 21.7, Anion Gap 12, BUN 19, Creatinine 1.06, Estim Creat Clear Calc 49.62 L, Est GFR (MDRD) Non-Af 54 L, BUN/Creatinine Ratio 17.8,Glucose 152 H, Calcium 9.6, Phosphorus 3.4,Magnesium 1.9 06/05/24 06:20: POC Glucose 133 H 06/05/24 11:36: POC Glucose 267 H Microbiology: Microbiology 06/03/24 12:00 Urine, Clean Catch Urine Culture - Final Mixed Gram Positive Organisms D/C Instructions Discharge Diet: No restrictions Discharge Activity: Return to Normal Activity Call your doctor if you observe: Fever of 101 or Higher, Shortness of breath, Fainting spells and Chest pain DC O2, CPAP, BIPAP Needs Home O2 Discharge instructions: No Meaningful Use Info Meaningful Use Meaningful Use Diagnoses (Choose all that apply): None applicable Ischemic Stroke Statin Dosing Therapy Reference: STATIN DOSE THERAPY REFERENCE: * Patients > 75 years receive moderate or high dose statin therapy. * Patients 75 years or YOUNGER should receive HIGH intensity statin dose unless contraindicated. You will be required to document reason for non-treatment if statin daily dose does not meet guidelines. HIGH DOSE STATIN THERAPY DAILY Atorvastatin > than or = to 40 mg Rosuvastatin > than or = to 20 mg Amlodipine + Atorvastatin > than or = to 2.5/40 mg Ezetimibe + Simvastatin 10/80 mg Simvastatin 80mg Discharge Plan Admission Admit Date/Time: 06/02/24 07:13 Attending Provider: South Lopez Primary Care Provider: Flako Tracy Consulting Providers: Cheryl Carroll Discharge Orders/Prescriptions Prescriptions: Continued promethazine 12.5 mg tablet 12.5 mg PO Q6H PRN (Reason: nausea and vomiting) hydrocortisone [Anusol-HC] 2.5 % cream with perineal applicator 1 applic FL QD-BID PRN (Reason: hemorrhoids) glipizide 10 mg tablet extended release 24hr 10 mg PO BID acetaminophen 325 MG tablet 1,000 mg PO QHS Patient Comments: pain control loratadine 10 MG tablet 10 mg PO QHS 30 Days 0RF multivitamin [Daily Multi-Vitamin] Tablet 1 tab PO DAILY docusate sodium [Colace] 100 mg capsule 200 mg PO QHS ondansetron 4 mg tablet,disintegrating 4 mg PO Q8H PRN PRN (Reason: Nausea) Qty: 10 0RF warfarin 5 mg tablet 5 mg PO .ABBY Protocol: Dose Management Condition: Tuesday Dose/Route: 5 mg Instruction: 1 x 5 mg tablet Condition: Tuesday Dose/Route: 2.5 mg Instruction: 1 x 2.5 mg tablet Condition: Tuesday Dose/Route: 2.5 mg Instruction: 1 x 2.5 mg tablet Condition: Tuesday Dose/Route: 2.5 mg Instruction: 1 x 2.5 mg tablet Condition: Dose/Route: 2.5 mg Instruction: 1 x 2.5 mg tablet Condition: Tuesday Dose/Route: 5 mg Instruction: 1 x 5 mg tablet Condition: Tuesday Dose/Route: 5 mg Instruction: 1 x 5 mg tablet Protocol Text: Adjustment Start Date: 05/24/24 INR Value: 1.5 INR Date: 05/24/24 Recheck Date: 05/31/24 warfarin 2.5 mg tablet 2.5 mg PO JULIETTE Protocol: Dose Management Condition: Tuesday Dose/Route: 5 mg Instruction: 1 x 5 mg tablet Condition: Tuesday Dose/Route: 2.5 mg Instruction: 1 x 2.5 mg tablet Condition: Tuesday Dose/Route: 2.5 mg Instruction: 1 x 2.5 mg tablet Condition: Tuesday Dose/Route: 2.5 mg Instruction: 1 x 2.5 mg tablet Condition: Dose/Route: 2.5 mg Instruction: 1 x 2.5 mg tablet Condition: Tuesday Dose/Route: 5 mg Instruction: 1 x 5 mg tablet Condition: Saturday Dose/Route: 5 mg Instruction: 1 x 5 mg tablet Protocol Text: Adjustment Start Date: 05/24/24 INR Value: 1.5 INR Date: 05/24/24 Recheck Date: 05/31/24 Rx Instructions: 2.5 mg orally 1 tablet (2.5 mg) on Tuesday, Tuesday, Tuesday, and ; 2 tablets together to = 5mg on Tuesday, Tuesday and Tuesday at bedtdime; dose changes often, please give extra tablets sucralfate 1 gram Tablet 1 g PO TIDAC Qty: 90 0RF pantoprazole 40 mg tablet,delayed release (DR/EC) 40 mg PO BID Qty: 60 0RF tramadol 50 mg tablet 50 mg PO Q6H PRN (Reason: pain) 3 Days Qty: 12 0RF methocarbamol 500 mg tablet 500 mg PO 4X/DAY PRN (Reason: Muscle pain/spasm) Qty: 40 0RF metoprolol tartrate 50 mg tablet 50 mg PO BID Qty: 180 3RF rosuvastatin 20 mg tablet 20 mg PO QHS Qty: 90 3RF losartan 25 mg tablet 12.5 mg PO DAILY Qty: 45 3RF Rx Instructions: Hold for SBP less than 130 mmHg Referrals / Follow Up: Flako Tracy MD [Primary Care Provider] - 06/08/24 12:45 pm Disposition Disposition (needs filled in before D/C Order can be placed): Home Health Service Charges/Coding Visit Charges Inpatient E&M: 66134 Disch Hosp >30min 06/05/24 1231 Cosigner Signature (if applicable): CC: Dr. South Lopez MD; Dr. Flako Tracy MD~ Signed [facility]04-01-20[facility] Progress note Author South Lopez [facility] Note Date/Time June 05, 2024 8:40 am [facility] Medical Records Department [address] [place] [address] Progress Note - Hospitalist 06/05/24 0723 MR#: [id number] Acct: [id number] Name: AARONORLANDOHOLDEN Johnston Rep #:[id number] : 1950 74 From: South Lopez MD PCP: Dr. Flako Tracy MD Status:AD M AVERY Location: MS3 [id number] Reason for Visit Reason for Visit: Diagnoses Dysuria (06/02/24) Weakness (06/02/24) Other malaise (06/02/24) Other specified abnormal findings of blood chemistry (06/02/24) Unspecified fall, initial encounter (06/02/24) imaging technologist (current) use of 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 (06/02/24) Subjective Subjective Patient seen went into A-fib with rapid ventricular response. Resolved spontaneously. Awaiting insurance approval prior to transfer to [facility] Objective Data Objective Data Vital Signs: Vital Signs Temp Pulse Resp BP Pulse Ox O2 Del Method 97.7 F L 60 16 102/48 L 100 Room Air 06/05/24 03:15 06/05/24 03:15 06/05/24 03:15 06/05/24 03:15 06/05/24 03:15 06/05/24 03:15 Oxygen Delivery Method Room Air Weight: 92 kg Body Mass Index (BMI) 34.8 Intake & Output: Intake and Output for Last 24 Hours 06/03/24 06/04/24 06/05/24 23:59 23:59 23:59 Intake Total 300 / 300 Balance 300 / 300 Lab / Micro Data 06/05/24 05:59 06/05/24 05:59 Labs: Laboratory Results - last 24 hr 06/04/24 06:17: POC Glucose 155 H 06/04/24 06:35: Sodium 137, Potassium 4.3, Chloride 105, Carbon Dioxide 20.0 L, Anion Gap 12, BUN 18, Creatinine 0.92, Estim Creat Clear Calc 56.88, Est GFR (MDRD) Non-Af 65, BUN/Creatinine Ratio 20.0, Glucose 165 H, Calcium 9.4 06/04/24 11:24: POC Glucose 171 H 06/04/24 16:24: POC Glucose 199 H 06/04/24 23:04: POC Glucose 160 H 06/05/24 05:59: WBC 6.3, RBC 3.45 L, Hgb 9.4 L, Hct 29.2 L, MCV 84.6, MCH 27.2, MCHC 32.2, RDW Std Deviation 44.3 H, RDW Coeff of Rukhsana 14.3, Plt Count 310, MPV 11.4, Immature Gran % (Auto) 0.300, Neut % (Auto) 51.6, Lymph % (Auto) 35.2, [place] % (Auto) 9.4, Eos % (Auto) 2.4, Baso % (Auto) 1.1 H, Absolute Neuts (auto) 3.3, Absolute Lymphs (auto) 2.22, Nucleated RBC % 0, Sodium 140, Potassium 4.3, Chloride 107, Carbon Dioxide 21.7, Anion Gap 12, BUN 19, Creatinine 1.06, Estim Creat Clear Calc 49.62 L, Est GFR (MDRD) Non-Af 54 L, BUN/Creatinine Ratio 17.8,Glucose 152 H, Calcium 9.6, Phosphorus 3.4, Magnesium 1.9 06/05/24 06:20: POC Glucose 133 H Physical Exam Narrative GENERAL: cooperative HEENT: Atraumatic; normocephalic EYES; Anicteric, Normal Conjunctiva NECK; supple, normal thyroid, RESPIRATORY: Diminished to auscultation CARDIOVASCULAR: Irregular S1-S2 GI: soft, normoactive bowel sounds, : No Renal angle tenderness; EXTREMITIES: No edema, no clubbing, MUSCULOSKELETAL: no muscle wasting NEURO: Awake; no lateralizing signs. SKIN: No Rash PSYCH; Flat affect Assessment & Plan Assessment/Plan (1) Generalized weakness: (2) Fall: (3) Current use of assisted anticoagulation: (4) Debility: (5) Elevated troponin: (6) Dysuria: PLAN: Plan Patient is a 74-year-old lady admitted with frequent falls. Patient had recently been diagnosed with upper GI bleed as well as acute influenza A infection 1. Physical deconditioning ? Secondary to recent hospitalization with influenza A and GI bleed. Patient admitted to regular nursing floor requested for PT OT eval and social media manager to assist with discharge planning 06/05/2024; awaiting insurance decision prior to disposition 2. Dysuria ? Patient urinalysis obtained unremarkable 3. Elevated troponin ? Secondary to demand ischemia from blood pressure 4.Recent GI bleed secondary to peptic ulcer disease Patient is on Carafate as well as Protonix 40 mg p.o. twice daily 5. Anemia ? Secondary to chronic disorder as well as recent acute blood loss anemia from bleeding peptic ulcer. Monitoring H&H and transfuse if patient becomes symptomatic or hemoglobin falls below 7 6. Carotid artery stenosis -90% stenosis of left w/significant collaterals, 50% stenosis of right per U/S 10/27/2020. Right ICA 20-39% stenosis. Patient followed by vascular surgery as outpatient 7. History of complete heart block ? Status post pacemaker placed 7. Chronic atrial fibrillation ? Rate controlled on metoprolol patient is on warfarin close monitoring of H&H implemented ; went into rapid ventricular response heart rate back within normal limits 8. Dyslipidemia ?Patient is on statin therapy, continued at home dose 9. Hypertension ? Blood pressure controlled, home medications continued with dose adjustment as needed 10. Asymmetric septal hypertrophy -EF of 75% on last echo from January 2023; Continue ongoing outpatient follow- up with cardiology 11. 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 Diabetes mellitus type II -patient's oral hypoglycemics held. Placed on long acting insulin, Accu-Cheks a.c. and at bedtime and covered with sliding scale insulin 13. Hemorrhoids -Continue home Anusol 14. History of renal cell carcinoma -Remote; remains in remission 15. DVT prophylaxis -Continue home Coumadin with therapeutic INR presently CODE STATUS -DNR CCA with no intubation as verified at the time of admission Time spent in the patient's overall evaluation,decision-making process, review of diagnostic data, adjustment of management, discussion with other providers, nursing nursing and ancillary staff involved in patient's care documentation, 36minutes Charges/Coding Visit Charges Inpatient E&M: 46827 Subs Hosp L2 06/05/24 0840 <Electronically signed by South Lopez MD> Cosigner Signature (if applicable): CC: ~ Signed [facility] Work Phone: 1([phone]) 209-422404-01-2025 Progress note [facility] Medical Records Department [address] [place] [address] Progress Note - Hospitalist 06/05/24 0723 MR#: [id number] Acct: [id number] Name: LAISHA WALKER Rep #:[id number] : 1950 74 From: South Lopez MD PCP: Dr. Flako Tracy MD Status:KSENIA VARELA Location: [place] [address] Reason for Visit Reason for Visit: Diagnoses Dysuria (06/02/24) Weakness (06/02/24) Other malaise (06/02/24) Other specified abnormal findings of blood chemistry (06/02/24) Unspecified fall, initial encounter (06/02/24) USP (current) use of 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 (06/02/24) Subjective Subjective Patient seen went into A-fib with rapid ventricular response. Resolved spontaneously. Awaiting insurance approval prior to transfer to [facility] Objective Data Objective Data Vital Signs: Vital Signs Temp Pulse Resp BP Pulse Ox O2 Del Method 97.7 F L 60 16 102/48 L 100 Room Air 06/05/24 03:15 06/05/24 03:15 06/05/24 03:15 06/05/24 03:15 06/05/24 03:15 06/05/24 03:15 Oxygen Delivery Method Room Air Weight: 92 kg Body Mass Index (BMI) 34.8 Intake & Output: Intake and Output for Last 24 Hours 06/03/24 06/04/24 06/05/24 23:59 23:59 23:59 Intake Total 300 / 300 Balance 300 / 300 Lab / Micro Data 06/05/24 05:59 06/05/24 05:59 Labs: Laboratory Results - last 24 hr 06/04/24 06:17: POC Glucose 155 H 06/04/24 06:35: Sodium 137, Potassium 4.3, Chloride 105, Carbon Dioxide 20.0 L, Anion Gap 12, BUN 18, Creatinine 0.92, Estim Creat Clear Calc 56.88, Est GFR (MDRD) Non-Af 65, BUN/Creatinine Ratio 20.0, Glucose 165 H, Calcium 9.4 06/04/24 11:24: POC Glucose 171 H 06/04/24 16:24: POC Glucose 199 H 06/04/24 23:04: POC Glucose 160 H 06/05/24 05:59: WBC 6.3, RBC 3.45 L, Hgb 9.4 L, Hct 29.2 L, MCV 84.6, MCH 27.2, MCHC 32.2, RDW Std Deviation 44.3 H, RDW Coeff of Rukhsana 14.3, Plt Count 310, MPV 11.4, Immature Gran % (Auto) 0.300, Neut% (Auto) 51.6, Lymph % (Auto) 35.2, [place] % (Auto) 9.4, Eos % (Auto) 2.4, Baso % (Auto) 1.1 H, Absolute Neuts (auto) 3.3, Absolute Lymphs (auto) 2.22, Nucleated RBC % 0, Sodium 140, Potassium 4.3, Chlo ride 107, Carbon Dioxide 21.7, Anion Gap 12, BUN 19, Creatinine 1.06, Estim Creat Clear Calc 49.62 L, Est GFR (MDRD) Non-Af 54 L, BUN/Creatinine Ratio 17.8,Glucose 152 H, Calcium 9.6, Phosphorus 3.4,Magnesium 1.9 06/05/24 06:20: POC Glucose 133 H Physical Exam Narrative GENERAL: cooperative HEENT: Atraumatic; normocephalic EYES; Anicteric, Normal Conjunctiva NECK; supple, normal thyroid, RESPIRATORY: Diminished to auscultation CARDIOVASCULAR: Irregular S1-S2 GI: soft, normoactive bowel sounds, : No Renal angle tenderness; EXTREMITIES: No edema, no clubbing, MUSCULOSKELETAL: no muscle wasting NEURO: Awake; no lateralizing signs. SKIN: No Rash PSYCH; Flat affect Assessment & Plan Assessment/Plan (1) Generalized weakness: (2) Fall: (3) 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: (4) Debility: (5) Elevated troponin: (6) Dysuria: PLAN: Plan Patient is a 74-year-old lady admitted with frequent falls. Patient had recently been diagnosed with upper GI bleed as well as acute influenza A infection 1. Physical deconditioning ? Secondary to recent hospitalization with influenza A and GI bleed. Patient admitted to regular nursing floor requested for PT OT eval and social media manager to assist with discharge planning 06/05/2024; awaiting insurance decision prior to disposition 2. Dysuria ? Patient urinalysis obtained unremarkable 3. Elevated troponin ? Secondary to demand ischemia from blood pressure 4.Recent GI bleed secondary to peptic ulcer disease Patient is on Carafate as well as Protonix 40 mg p.o. twice daily 5. Anemia ? Secondary to chronic disorder as well as recent acute blood loss anemia from bleeding peptic ulcer. Monitoring H&H and transfuse if patient becomes symptomatic or hemoglobin falls below 7 6. Carotid artery stenosis -90% stenosis of left w/significant collaterals, 50% stenosis of right per U/S 10/27/2020. Right CPS56-42% stenosis. Patient followed by vascular surgery as outpatient 7. History of complete heart block ? Status post pacemaker placed 7. Chronic atrial fibrillation ? Rate controlled on metoprolol patient is on warfarin close monitoring of H&H implemented ; went into rapid ventricular response heart rate back within normal limits 8. Dyslipidemia ?Patient is on statin therapy, continued at home dose 9. Hypertension ? Blood pressure controlled, home medications continued with dose adjustment as needed 10. Asymmetric septal hypertrophy -EF of 75% on last echo from January 2023; Continue ongoing outpatient follow- up with cardiology 11. 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 Diabetes mellitus type II -patient's oral hypoglycemics held. Placed on long acting insulin, Accu-Cheks a.c. and at bedtime and covered with sliding scale insulin 13. Hemorrhoids -Continue home Anusol 14. History of renal cell carcinoma -Remote; remains in remission 15. DVT prophylaxis -Continue home Coumadin with therapeutic INR presently CODE STATUS -DNR CCA with no intubation as verified at the time of admission Time spent in the patient's overall evaluation,decision-making process, review of diagnostic data, adjustment of management, discussion with other providers, nursing nursing and ancillary staff involved in patient's care documentation, 36minutes Charges/Coding Visit Charges Inpatient E&M: 14999 Subs Hosp L2 06/05/24 0840 Cosigner Signature (if applicable): CC: ~ Signed [facility]03-31-2025 Progress note Author South Lopez [facility] Note Date/Time June 04, 2024 12: 45pm [facility] Medical Records Department [address] [place] [address] Progress Note - Hospitalist 06/04/24 0805 MR#: [id number] Acct: [id number] Name: LAISHA WALKER Vickie Rep #:[id number] : 1950 74 From: South Lopez MD PCP: Dr. Flako Tracy MD Status:AD M AVERY Location: [place] [id number] Reason for Visit Reason for Visit: Diagnoses Dysuria (06/02/24) Weakness (06/02/24) Other malaise (06/02/24) Other specified abnormal findings of blood chemistry (06/02/24) Unspecified fall, initial encounter (06/02/24) USP (current) use of 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 (06/02/24) Subjective Subjective Patient is a 74-year-old lady admitted with frequent falls. Patient had recently been diagnosed with upper GI bleed as well as acute influenza A infection Objective Data Objective Data Vital Signs: Vital Signs Temp Pulse Resp BP Pulse Ox O2 Del Method 98.2 F 66 16 120/41 L 98 Room Air 06/04/24 02:41 06/04/24 02:41 06/04/24 02:41 06/04/24 02:41 06/04/24 02:41 06/04/24 02:42 Oxygen Delivery Method Room Air Weight: 91.1 kg Body Mass Index (BMI) 34.4 Intake & Output: Intake and Output for Last 24 Hours 06/02/24 06/03/24 06/04/24 23:59 23:59 23:59 Intake Total 1360 / 1360 300 / 300 Balance 1360 / 1360 300 / 300 Lab / Micro Data 06/04/24 06:35 06/04/24 06:35 Labs: Laboratory Results - last 24 hr 06/03/24 06:07: POC Glucose 151 H 06/03/24 12:00: Hgb 10.7 L 06/03/24 12:07: POC Glucose 223 H 06/03/24 16:06: POC Glucose 164 H 06/03/24 21:06: POC Glucose 152 H 06/04/24 06:17: POC Glucose 155 H 06/04/24 06:35: WBC 6.1, RBC 3.42 L, Hgb 9.3 L, Hct 28.7 L, MCV 83.9, MCH 27.2, MCHC 32.4, RDW Std Deviation 42.5, RDW Coeff of Rukhsana 13.9, Plt Count 283, MPV 11.9, Sodium 137, Potassium 4.3, Chloride 105, Carbon Dioxide 20.0 L, Anion Gap 12, BUN 18, Creatinine 0.92, Estim Creat Clear Calc 56.88, Est GFR (MDRD) Non-Af65, BUN/Creatinine Ratio 20.0, Glucose 165 H, Calcium 9.4 Physical Exam Narrative GENERAL: cooperative HEENT: Atraumatic; normocephalic EYES; Anicteric, Normal Conjunctiva NECK; supple, normal thyroid, RESPIRATORY: Diminished to auscultation CARDIOVASCULAR: Irregular S1-S2 GI: soft, normoactive bowel sounds, : No Renal angle tenderness; EXTREMITIES: No edema, no clubbing, MUSCULOSKELETAL: no muscle wasting NEURO: Awake; no lateralizing signs. SKIN: No Rash PSYCH; Flat affect Assessment & Plan Assessment/Plan (1) Generalized weakness: (2) Fall: (3) Current use of assisted anticoagulation: (4) Debility: (5) Elevated troponin: (6) Dysuria: PLAN: Plan Patient is a 74-year-old lady admitted with frequent falls. Patient had recently been diagnosed with upper GI bleed as well as acute influenza A infection 1. Physical deconditioning ? Secondary to recent hospitalization with influenza A and GI bleed. Patient admitted to regular nursing floor requested for PT OT eval and social media manager to assist with discharge planning 2. Dysuria ? Patient urinalysis obtained unremarkable 3. Elevated troponin ? Secondary to demand ischemia from blood pressure 4.Recent GI bleed secondary to peptic ulcer disease Patient is on Carafate as well as Protonix 40 mg p.o. twice daily 5. Anemia ? Secondary to chronic disorder as well as recent acute blood loss anemia from bleeding peptic ulcer. Monitoring H&H and transfuse if patient becomes symptomatic or hemoglobin falls below 7 6. Carotid artery stenosis -90% stenosis of left w/significant collaterals, 50% stenosis of right per U/S 10/27/2020. Right ICA 20-39% stenosis. Patient followed by vascular surgery as outpatient 7. History of complete heart block ? Status post pacemaker placed 7. Chronic atrial fibrillation ? Rate controlled on metoprolol patient is on warfarin close monitoring of H&H implemented 8. Dyslipidemia ?Patient is on statin therapy, continued at home dose 9. Hypertension ? Blood pressure controlled, home medications continued with dose adjustment as needed 10. Asymmetric septal hypertrophy -EF of 75% on last echo from January 2023; Continue ongoing outpatient follow- up with cardiology 11. 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 Diabetes mellitus type II -patient's oral hypoglycemics held. Placed on long acting insulin, Accu-Cheks a.c. and at bedtime and covered with sliding scale insulin 13. Hemorrhoids -Continue home Anusol 14. History of renal cell carcinoma -Remote; remains in remission 15. DVT prophylaxis -Continue home Coumadin with therapeutic INR presently CODE STATUS -DNR CCA with no intubation as verified at the time of admission Time spent in the patient's overall evaluation,decision-making process, review of diagnostic data, adjustment of management, discussion with other providers, nursing nursing and ancillary staff involved in patient's care documentation, 36minutes Charges/Coding Visit Charges Inpatient E&M: 14304 Subs Hosp L2 06/04/24 1245 <Electronically signed by South Lopez MD> Cosigner Signature (if applicable): CC: ~ Signed [facility] Work Phone: [phone] 112-876503-31-2025 Progress note [facility] Medical Records Department [address] [place] [address] Progress Note - Hospitalist 06/04/24804 MR#: [id number] Acct: [id number] Name: LAISHA WALKER Rep #:[id number] : 1950 74 From: South Lopez MD PCP: Dr. Flako Tracy MD Status:KSENIA VARELA Location: [id number] Reason for Visit Reason for Visit: Diagnoses Dysuria (06/02/24) Weakness (06/02/24) Other malaise (06/02/24) Other specified abnormal findings of blood chemistry (06/02/24) Unspecified fall, initial encounter (06/02/24) USP (current) use of 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 (06/02/24) Subjective Subjective Patient is a 74-year-old lady admitted with frequent falls. Patient had recently been diagnosed with upper GI bleed as well as acute influenza A infection Objective Data Objective Data Vital Signs: Vital Signs Temp Pulse Resp BP Pulse Ox O2 Del Method 98.2 F 66 16 120/41 L 98 Room Air 06/04/24 02:41 06/04/24 02:41 06/04/24 02:41 06/04/24 02:41 06/04/24 02:41 06/04/24 02:42 Oxygen Delivery Method Room Air Weight: 91.1 kg Body Mass Index (BMI) 34.4 Intake & Output: Intake and Output for Last 24 Hours 06/02/24 06/03/24 06/04/24 23:59 23:59 23:59 Intake Total 1360 / 1360 300 / 300 Balance 1360 / 1360 300 / 300 Lab / Micro Data 06/04/24 06:35 06/04/24 06:35 Labs: Laboratory Results - last 24 hr 06/03/24 06:07: POC Glucose 151 H 06/03/24 12:00: Hgb 10.7 L 06/03/24 12:07: POC Glucose 223 H 06/03/24 16:06: POC Glucose 164 H 06/03/24 21:06: POC Glucose 152 H 06/04/24 06:17: POC Glucose 155 H 06/04/24 06:35: WBC 6.1, RBC 3.42 L, Hgb 9.3 L, Hct 28.7 L, MCV 83.9, MCH 27.2, MCHC 32.4, RDW Std Deviation 42.5, RDW Coeff of Rukhsana 13.9, Plt Count 283, MPV 11.9, Sodium 137, Potassium 4.3, Chloride 105, Carbon Dioxide 20.0 L, Anion Gap 12, BUN 18, Creatinine 0.92, Estim Creat Clear Calc 56.88, EstGFR (MDRD) Non- Af65, BUN/Creatinine Ratio 20.0, Glucose 165 H, Calcium 9.4 Physical Exam Narrative GENERAL: cooperative HEENT: Atraumatic; normocephalic EYES; Anicteric, Normal Conjunctiva NECK; supple, normal thyroid, RESPIRATORY: Diminished to auscultation CARDIOVASCULAR: Irregular S1-S2 GI: soft, normoactive bowel sounds, : No Renal angle tenderness; EXTREMITIES: No edema, no clubbing, MUSCULOSKELETAL: no muscle wasting NEURO: Awake; no lateralizing signs. SKIN: No Rash PSYCH; Flat affect Assessment & Plan Assessment/Plan (1) Generalized weakness: (2) Fall: (3) Current use of assisted anticoagulation: (4) Debility: (5) Elevated troponin: (6) Dysuria: PLAN: Plan Patient is a 74-year-old lady admitted with frequent falls. Patient had recently been diagnosed with upper GI bleed as well as acute influenza A infection 1. Physical deconditioning ? Secondary to recent hospitalization with influenza A and GI bleed. Patient admitted to regular nursing floor requested for PT OT eval and social media manager to assist with discharge planning 2. Dysuria ? Patient urinalysis obtained unremarkable 3. Elevated troponin ? Secondary to demand ischemia from blood pressure 4.Recent GI bleed secondary to peptic ulcer disease Patient is on Carafate as well as Protonix 40 mg p.o. twice daily 5. Anemia ? Secondary to chronic disorder as well as recent acute blood loss anemia from bleeding peptic ulcer. Monitoring H&H and transfuse if patient becomes symptomatic or hemoglobin falls below 7 6. Carotid artery stenosis -90% stenosis of left w/significant collaterals, 50% stenosis of right per U/S 10/27/2020. Right IJJ15-95% stenosis. Patient followed by vascular surgery as outpatient 7. History of complete heart block ? Status post pacemaker placed 7. Chronic atrial fibrillation ? Rate controlled on metoprolol patient is on warfarin close monitoring of H&H implemented 8. Dyslipidemia ?Patient is on statin therapy, continued at home dose 9. Hypertension ? Blood pressure controlled, home medications continued with dose adjustment as needed 10. Asymmetric septal hypertrophy -EF of 75% on last echo from January 2023; Continue ongoing outpatient follow- up with cardiology 11. 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 Diabetes mellitus type II -patient's oral hypoglycemics held. Placed on long acting insulin, Accu-Cheks a.c. and at bedtime and covered with sliding scale insulin 13. Hemorrhoids -Continue home Anusol 14. History of renal cell carcinoma -Remote; remains in remission 15. DVT prophylaxis -Continue home Coumadin with therapeutic INR presently CODE STATUS -DNR CCA with no intubation as verified at the time of admission Time spent in the patient's overall evaluation,decision-making process, review of diagnostic data, adjustment of management, discussion with other providers, nursing nursing and ancillary staff involved in patient's care documentation, 36minutes Charges/Coding Visit Charges Inpatient E&M: 21947 Subs Hosp L2 06/04/24 1245 Cosigner Signature (if applicable): CC: ~ Signed [facility]03-31-2025 Telephone encounter Note* Telephone Encounter - Flako Tracy MD - 06/04/2024 12:18 PM EDT Has appt today 06/[address] [facility]03-31-2025 Miscellaneous Notes* Telephone Encounter - Flako Tracy MD - 06/04/2024 12:18 PM EDT Has appt today 06/04 Flako Tracy MD * Telephone Encounter - Chasity Isaacs - 06/01/2024 9:50 AM EDT Called patient to offer a sooner appointment she did take Tuesday06/04/24 but requesting additional pain medication Tramadol 1 tablet every 6 hrs be sent to [facility] in [place], patient also states she has been to the [facility] ER 3 times in the last 2 weeks. [facility] Progress note Author Cheryl Carroll [facility] Note Date/Time June 03, 2024 3:1 4pm [facility] Medical Records Department [address] [place] [address] Progress Note - Hospitalist 06/03/24 0857 MR#: [id number] Acct: [id number] Name: LAISHA WALKER Rep #:[id number] : 1950 74 From: Cheryl Carroll DO PCP: Dr. Flako Tracy MD Status:[facility] Location: [place] [address] Reason for Visit Reason for Visit: Diagnoses Dysuria (06/02/24) Weakness (06/02/24) Other malaise (06/02/24) Other specified abnormal findings of blood chemistry (06/02/24) Unspecified fall, initial encounter (06/02/24) USP (current) use of 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 (06/02/24) Subjective Subjective Patient states the lidocaine patch does help her rib pain some. She states she still has pain with movement which is to be expected. No significant overnight issues. SNF list was provided yesterday and choices to be determined. Objective Data Objective Data Vital Signs: Vital Signs Temp Pulse Resp BP Pulse Ox O2 Del Method 98.5 F 70 18 114/57 L 99 Room Air 06/02/24 20:52 06/02/24 21:59 06/02/24 20:52 06/02/24 20:52 06/03/24 08:19 06/03/24 08:19 Oxygen Delivery Method Room Air Weight: 91.1 kg Body Mass Index (BMI) 34.4 Intake & Output: Intake and Output for Last 24 Hours 06/01/24 06/02/24 06/03/24 23:59 23:59 23:59 Intake Total 1360 / 1360 Balance 1360 / 1360 Lab / Micro Data 06/03/24 12:00 06/03/24 05:09 Labs: Laboratory Results - last 24 hr 06/02/24 09:35: Troponin T Hi Sens 4Hr 23 H 06/02/24 11:30: POC Glucose 276 H 06/02/24 16:53: POC Glucose 170 H 06/02/24 22:06: POC Glucose 203 H 06/03/24 05:09: WBC 8.0, RBC 3.40 L, Hgb 9.3 L, Hct 28.8 L, MCV 84.7, MCH 27.4, MCHC 32.3, RDW Std Deviation 43.5, RDW Coeff of Rukhsana 14.0, Plt Count 248, MPV 12.2 H, Immature Gran % (Auto) 0.500, Neut % (Auto) 64.6, Lymph % (Auto) 21.7, [place] % (Auto) 11.3 H, Eos % (Auto) 1.3, Baso % (Auto) 0.6, Absolute Neuts (auto) 5.2, Absolute Lymphs (auto) 1.73, Nucleated RBC % 0, Sodium 135, Potassium 4.0, Chloride 103, Carbon Dioxide 20.9 L, Anion Gap 11, BUN 19, Creatinine 1.03, Estim Creat Clear Calc 50.81, Est GFR (MDRD) Non-Af 56 L, BUN/Creatinine Ratio 18.3, Glucose 145 H, Calcium 9.5, Phosphorus 3.6, Magnesium 1.8 Physical Exam Const alert, oriented x3, no apparent distress and well nourished; Negative for healthy appearing Constitutional Narrative: Obese, elderly, white female, sitting up in a chair at the bedside, appears comfortable, nontoxic, watching television General Appearance: cooperative HEENT normocephalic and head/scalp atraumatic Skin Skin Narrative: Scattered areas of new ecchymosis Neuro moves all extremities and no focal motor deficits Psych affect normal Assessment & Plan Assessment/Plan (1) Generalized weakness: (2) Fall: (3) Current use of assisted anticoagulation: (4) Debility: (5) Elevated troponin: (6) Dysuria: PLAN: Plan Falls/generalized weakness/debility -Suspect compounded from recent GI bleed and influenza A infection -No focal deficits -Patient also with significant pain from recent falls but no severe injuries noted on imaging -PT/OT consultation for assistance with functional evaluation -Consult case management/social work assistance with discharge planning as I do suspect patient will need placement prior to going home -Plan is for discharge to SNF. [employer] worker met yesterday and gave list. Patient has been are picking site and will need approval and pre-CERT prior to discharge Dysuria -UA was completely unremarkable for any signs of infection -Cx pending -Hold off on antibiotics empirically at this point Troponin elevation -Very mild at 21 and 22-suspect related to elevated blood pressure -Was 19 and 19 on her last hospital visit the ED -The chest pain she is experiencing is left lateral and more flank at the ribs and reproducible with palpation -No further workup required at this time Recent GI bleed secondary to peptic ulcer disease -Continue Carafate -Continue Protonix 40 mg p.o. twice daily -Okay to continue Coumadin with stable hemoglobin -Outpatient follow-up with Dr. Jane as previously recommended Recent influenza A infection -Patient still with mild cough -Antitussives available -Suspect contributing to generalized weakness and debility Leukocytosis -Resolved Carotid artery stenosis -90% stenosis of left w/significant collaterals, 50% stenosis of right per U/S 10/27/2020. Right ICA 20-39% stenosis -Continue outpatient ongoing investigation -Patient states she is supposed to have an appointment on Tuesday Paroxysmal atrial fibrillation with history of complete heart block -Pacemaker in place -Continue home metoprolol Essential hypertension/hyperlipidemia -Continue metoprolol -Continue home losartan -Continue home statin Asymmetric septal hypertrophy -EF of 75% on last echo from January 2023 -Continue ongoing outpatient follow-up with cardiology Liver cirrhosis -Secondary to nonalcoholic fatty liver disease I suspect -Outpatient follow-up DM-2 -Hold home glipizide -SSI as ordered -Accu-Cheks 3 times daily and AC -Will monitor sugars Hemorrhoids -Continue home Anusol History of renal cell carcinoma -Remote Chronic anemia -Slight drop this morning however repeat shows stability -Repeat CBC in a.m. Chronic anticoagulation -For atrial fibrillation -INR is therapeutic -Repeat INR in a.m. DVT prophylaxis -Continue home Coumadin with therapeutic INR presently CODE STATUS -DNR CCA with no intubation as verified at the time of admission Disposition: -Patient is medically stable for discharge as of 06/03/2024. Will need facility and pre-CERT Charges/Coding Visit Charges Inpatient E&M: 37113 Subs Hosp L1 06/03/24 1514 <Electronically signed by Cheryl Carroll DO> Cosigner Signature (if applicable): CC: ~ Signed [facility] Work Phone: 1(101) 835-512203-30-2025 Progress note [facility] Medical Records Department [address] [place] [id number] Progress Note - Hospitalist 06/03/24 0857 MR#: [id number] Acct: [id number] Name: LAISHA WALKER Rep #:[id number] : 1950 74 From: Cheryl Carroll DO PCP: Dr. Flako Tracy MD Status:AD M [facility] Location: [place]3 [id number] Reason for Visit Reason for Visit: Diagnoses Dysuria (06/02/24) Weakness (06/02/24) Other malaise (06/02/24) Other specified abnormal findings of blood chemistry (06/02/24) Unspecified fall, initial encounter (06/02/24) USP (current) use of 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 (06/02/24) Subjective Subjective Patient states the lidocaine patch does help her rib pain some. She states she still has pain with movement which is to be expected. No significant overnight issues. SNF list was provided yesterday and choices to be determined. Objective Data Objective Data Vital Signs: Vital Signs Temp Pulse Resp BP Pulse Ox O2 Del Method 98.5 F 70 18 114/57 L 99 Room Air 06/02/24 20:52 06/02/24 21:59 06/02/24 20:52 06/02/24 20:52 06/03/24 08:19 06/03/24 08:19 Oxygen Delivery Method Room Air Weight: 91.1 kg Body Mass Index (BMI) 34.4 Intake & Output: Intake and Output for Last 24 Hours 06/01/24 06/02/24 06/03/24 23:59 23:59 23:59 Intake Total 1360 / 1360 Balance 1360 / 1360 Lab / Micro Data 06/03/24 12:00 06/03/24 05:09 Labs: Laboratory Results - last 24 hr 06/02/24 09:35: Troponin T Hi Sens 4Hr 23 H 06/02/24 11:30: POC Glucose 276 H 06/02/24 16:53: POC Glucose 170 H 06/02/24 22:06: POC Glucose 203 H 06/03/24 05:09: WBC 8.0, RBC 3.40 L, Hgb 9.3 L, Hct 28.8 L, MCV 84.7, MCH 27.4, MCHC 32.3, RDW Std Deviation 43.5, RDW Coeff of Rukhsana 14.0, Plt Count 248, MPV 12.2 H, Immature Gran % (Auto) 0.500, Neut% (Auto) 64.6, Lymph % (Auto) 21.7, [place] % (Auto) 11.3 H, Eos % (Auto) 1.3, Baso % (Auto) 0.6, Absolute Neuts (auto) 5.2, Absolute Lymphs (auto) 1.73, Nucleated RBC % 0, Sodium 135, Potassium 4.0, Chloride 103, Carbon Dioxide 20.9 L, Anion Gap 11, BUN 19, Creatinine 1.03, Estim Creat Clear Calc 50.81, Est GFR (MDRD) Non-Af 56 L, BUN/Creatinine Ratio 18.3, Glucose 145 H, Calcium 9.5, Phosphorus 3.6, Magnesium 1.8 Physical Exam Const alert, oriented x3, no apparent distress and well nourished; Negative for healthy appearing Constitutional Narrative: Obese, elderly, white female, sitting up in a chair at the bedside, appears comfortable, nontoxic, watching television General Appearance: cooperative HEENT normocephalic and head/scalp atraumatic Skin Skin Narrative: Scattered areas of new ecchymosis Neuro moves all extremities and no focal motor deficits Psych affect normal Assessment & Plan Assessment/Plan (1) Generalized weakness: (2) Fall: (3) 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: (4) Debility: (5) Elevated troponin: (6) Dysuria: PLAN: Plan Falls/generalized weakness/debility -Suspect compounded from recent GI bleed and influenza A infection -No focal deficits -Patient also with significant pain from recent falls but no severe injuries noted on imaging -PT/OT consultation for assistance with functional evaluation -Consult case management/social work assistance with discharge planning as I do suspect patient will need placement prior to going home -Plan is for discharge to SNF. [employer] worker met yesterday and gave list. Patient has been are picking site and will need approval and pre-CERT prior to discharge Dysuria -UA was completely unremarkable for any signs of infection -Cx pending -Hold off on antibiotics empirically at this point Troponin elevation -Very mild at 21 and 22-suspect related to elevated blood pressure -Was 19 and 19 on her last hospital visit the ED -The chest pain she is experiencing is left lateral and more flank at the ribs and reproducible with palpation -No further workup required at this time Recent GI bleed secondary to peptic ulcer disease -Continue Carafate -Continue Protonix 40 mg p.o. twice daily -Okay to continue Coumadin with stable hemoglobin -Outpatient follow-up with Dr. Jane as previously recommended Recent influenza A infection -Patient still with mild cough -Antitussives available -Suspect contributing to generalized weakness and debility Leukocytosis -Resolved Carotid artery stenosis -90% stenosis of left w/significant collaterals, 50% stenosis of right per U/S 10/27/2020. Right WDU22-36% stenosis -Continue outpatient ongoing investigation -Patient states she is supposed to have an appointment on Tuesday Paroxysmal atrial fibrillation with history of complete heart block -Pacemaker in place -Continue home metoprolol Essential hypertension/hyperlipidemia -Continue metoprolol -Continue home losartan -Continue home statin Asymmetric septal hypertrophy -EF of 75% on last echo from January 2023 -Continue ongoing outpatient follow-up with cardiology Liver cirrhosis -Secondary to nonalcoholic fatty liver disease I suspect -Outpatient follow-up DM-2 -Hold home glipizide -SSI as ordered -Accu-Cheks 3 times daily and AC -Will monitor sugars Hemorrhoids -Continue home Anusol History of renal cell carcinoma -Remote Chronic anemia -Slight drop this morning however repeat shows stability -Repeat CBC in a.m. Chronic anticoagulation -For atrial fibrillation -INR is therapeutic -Repeat INR in a.m. DVT prophylaxis -Continue home Coumadin with therapeutic INR presently CODE STATUS -DNR CCA with no intubation as verified at the time of admission Disposition: -Patient is medically stable for discharge as of 06/03/2024. Will need facility and pre-CERT Charges/Coding Visit Charges Inpatient E&M: 96223 Subs Hosp L1 06/03/24 2003 Cosigner Signature (if applicable): CC: ~ Signed [facility]03-29-2025 History and physical note Author Cheryl Carroll [facility] Note Date/Time June 02, 2024 8:4 2am [facility] Medical Records Department [address] [place] [address] H&P Exam - Hospitalist 06/02/24 0721 MR#: [id number] Acct: [id number] Name: LAISHA WALKER Rep #:[id number] : 1950 74 From: Cheryl Carroll DO PCP: Dr. Flako Tracy MD Status:KSENIA VARELA Location: [facility] [id number] HPI - General General Date of Admission: 06/02/24 Date of Service: 06/02/24 Chief Complaint: Falls HPI Narrative LAISHA WALKER, is a 74 F who presented to the emergency department [facility] on 06/02/2024 early in the morning after she sustained a fall at home. Patient was recently admitted here in mid May at which time she was found to have a duodenal ulcer. She is on Coumadin at baseline for atrial fibrillation and her Coumadin was held. Appears that her hemoglobin is stabilized since that point in time. She was then diagnosed with influenza and was back in the emergency department 3 days ago on the . At that time she was planing of some left-sided flank pain/chest pain and complained of some ongoing coughing. She was stable on room air at 97 to 100% and vitals were otherwise unremarkable at that time. A CTA was performed and was unremarkable for any lung pathology or pulmonary embolus/dissection. She was sent home with a course of Ultram and methocarbamol. Since discharge she has had 2 falls. Shehas not sustained any serious injury however she is sore. Early this morning she was getting up to use the restroom and walking with her rollator walker and lost her balance falling backwards and hitting her head against the wall. On presentation she was complaining of a sore back. The flank pain that she had previously has still been somewhat problematic. Patient had no loss of consciousness. She also complains of some dysuria. She said no fever or chills. She still is having some intermittent cough related to her recent influenza infection. Vital signs on presentation showed temperature of 97.8, heart rate 80, respiratory rate 18, blood pressure was 155/78 and pulse ox was 94 to 96% on room air. CBC shows a mild leukocytosis with a white count of 13.2. She does have a mild left shift there is a 74.3% neutrophilia. I am unclear if this is reactive or an infectious etiology as patient has no significant infectious concerns other send dysuria and her UA is unremarkable. She has anemia with a hemoglobin of 10.9 which appears to be fairly stable compared to previous. Her INR was 2.3 on presentation. She had mild hyponatremia sodium of 131 renal function is normal. Glucose was 190. Liver functions were unremarkable. Initial troponin was 21 with a repeat of 22. Her troponin was mildly elevated at her last ED visit to 19. UA showed some mild dehydration with a specific gravity of 1.02 but is negative for nitrites, leuk esterase, white cells, and bacteria. She was garland scanned on presentation due to trauma. She did have a CTA of her chest on 05/30/[address] was [address] CT of the abdomen pelvis was unremarkable for any acute findings. CT of the brain was unremarkable for any acute findings. CT of the cervical spine was negative for any acute findings, and CT of her chest was unremarkable for any acute findings [facility] Medical History Pacemaker Obesity (BMI 30-39.9) Cancer of kidney Cirrhosis of liver not due to alcohol Goiter Depression History of renal carcinoma Stage 3a chronic kidney disease (CKD) Bilateral carotid artery stenosis (10/27/20) Complete heart block Thrombosed external hemorrhoid Osteoporosis Cancer Irregular heart beat DVT (deep venous thrombosis) TIA (transient ischemic attack) Rectal pain Chronic anemia Obesity PAF (paroxysmal atrial fibrillation) Asthma Diabetes Hemorrhoids Arthritis Hypertension VTE (venous thromboembolism) CVA (cerebral vascular accident) PAF (paroxysmal atrial fibrillation) HLD (hyperlipidemia) Home Medications ?Medication ?Instructions ?Recorded ?Last Taken ?Type acetaminophen 325 mg tablet 1,000 mg PO QHS 06/26/16 0 06/29/16 History 1000 mg loratadine 10 mg tablet 10 mg PO QHS 30 days 7 Unknown Rx docusate sodium 100 mg capsule 200 mg PO QHS 01/21/23 Unknown History (Colace) multivitamin (Daily Multi-Vitamin 1 tab PO DAILY 01/21 Unknown History tablet) hydrocortisone 2.5 % topical cream 1 applic FL QD-BID PRN hemorrhoids 02/04/23 Unknown History with perineal applicator (Anusol-HC) promethazine 12.5 mg tablet 12.5 mg PO Q6H PRN nausea and 02/04/23 Unknown History vomiting metoprolol tartrate 50 mg tablet 50 mg PO BID #180 tab s 02/24/24 Unknown Rx rosuvastatin 20 mg tablet 20 mg PO QHS #90 tabs Unknown Rx glipizide 10 mg tablet, extended 10 mg PO BID 04/18/24 Unknown History release 24 hr ondansetron 4 mg disintegrating 4 mg PO Q8H PRN PRN Na usea #10 tabs 05/14/24 Unknown Rx tablet warfarin 2.5 mg tablet 2.5 mg PO MOTUWETH 05/15/24 Unknown History warfarin 5 mg tablet 5 mg PO .FRSASU 05/15/24 Unk nown History pantoprazole 40 mg tablet,delayed 40 mg PO BID #60 tab s 05/17/24 Unknown Rx release sucralfate 1 gram tablet 1 g PO TIDAC #90 tabs Unknown Rx losartan 25 mg tablet 12.5 mg (1/2 x 25 mg) PO ORION LY #45 05/21/24 Unknown Rx tabs methocarbamol 500 mg tablet 500 mg PO 4X/DAY PRN Muscl e 05/30/24 Unknown Rx pain/spasm #40 tabs tramadol 50 mg tablet 50 mg PO Q6H PRN pain 3 days #12 05/30/24 Unknown Rx tabs Allergy/AdvReac Type Severity Reaction Status Date / Time simvastatin Allergy Severe Unknown Verified 06/02/24 04:41 etodolac AdvReac Intermediate GI upset Verified 06/02/24 04:41 gabapentin AdvReac Intermediate dizziness Verified 06/02/24 04:41 NSAIDS (Non-Steroidal AdvReac Intermediate GI upset Verified 06/02/24 04:41 Anti-Inflamma sulfamethoxazole AdvReac Intermediate Sulfa Verified 06/02/24 04:41 drugs GI upset sulfametrole AdvReac Intermediate GI upset Verified 06/02/24 04:41 valdecoxib (From Bextra) AdvReac Intermediate GI upset Verified 06/02/24 04:41 atorvastatin AdvReac Unknown unknown Verified 06/02/24 04:41 codeine AdvReac Unknown unknown Verified 06/02/24 04:41 guaifenesin (From Entex [place]) AdvReac Unknown unknown Verified 06/02/24 04:41 hydrocodone AdvReac Unknown unknown Verified 06/02/24 04:41 naproxen (From Naprosyn) AdvReac Unknown unknown Verified 06/02/24 04:41 phenylephrine (From Entex [place]) AdvReac Unknown unknown Verified 06/02/24 04:41 phenylpropanolamine (From AdvReac Unknown unknown Verified 06/02/24 04:41 Entex [place]) pravastatin AdvReac Unknown unknown Verified 06/02/24 04:41 quinapril (From Accupril) AdvReac Unknown Unknown Verified 06/02/24 04:41 rofecoxib (From Vioxx) AdvReac Unknown unknown Verified 06/02/24 04:41 Sulfa (Sulfonamide AdvReac Unknown Diarrhea Verified 06/02/24 04:41 Antibiotics) tramadol AdvReac Unknown unknown Verified 06/02/24 04:41 celecoxib (From Celebrex) AdvReac Nausea/Vom/ Verified 06/02/24 04:41 Diarrhea fluoxetine HCl (From Prozac) AdvReac Other Verified 06/02/24 04:41 isosorbide AdvReac Other Verified 06/02/24 04:41 metformin AdvReac Nausea/Vom/ Verified 06/02/24 04:41 Diarrhea Family History Mother CVA (cerebral vascular accident) Diabetes Heart disease Father CVA (cerebral vascular accident) Diabetes Heart disease Other USP (current) use of 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 Surgical History S/P placement of cardiac pacemaker History of incision and drainage H/O partial nephrectomy History of hysterectomy History of knee replacement History of cholecystectomy History of shoulder surgery History of appendectomy Social History (Updated 06/02/24 @ 08:[address] Cheryl Carroll DO) household members: spouse Smoking Status: Never smoker alcohol intake: never substance use type: does not use additional social history: Ambulates with a wheeled walker ROS Constitutional Constitutional: Reports fatigue and weakness; Denies anorexia, change in weight,chills, fever(s), malaise, night sweats or other Eyes Eyes: Denies blurry vision, change in eye color, change in vision, discharge from eye(s), double vision, erythema, eye pain, loss of vision or other ENT HEENT: Denies abnormal hearing, dysphagia, ear pain, epistaxis, headache(s), hearing loss, nasal congestion, nasal discharge, post nasal drip, sinus pressure, sore throat or other Cardiovascular Cardiovascular: Denies chest pain, claudication, dyspnea on exertion, edema, lightheadedness, orthopnea, palpitations, paroxysmal nocturnal dyspnea, rapid heart rate, syncope or other Respiratory/Chest Respiratory/Chest: Reports other Details: Left-sided flank pain Gastrointestinal Gastrointestinal: Denies abdominal pain, coffee ground emesis, constipation, diarrhea, dyspepsia, hematemesis, hematochezia, loose stools, melena, nausea, vomiting or other Genitourinary Genitourinary: Reports dysuria; Denies burning urination, difficulty urinating, hematuria, nocturia, urinary frequency, urinary hesitancy, urinary incontinence,urinary urgency or other Musculoskeletal Musculoskeletal: Reports back pain, joint pain, joint stiffness, neck pain and other Details: Left scapular pain, left hip pains, left leg pain ; Denies arthralgias, joint swelling or myalgias Neurologic Neurologic: Reports abnormal gait; Denies abnormal speech, confusion, disequilibrium, dizziness, focal weakness, headache(s), numbness, paresthesias, seizure-like activity, seizures, syncope, tingling, tremor(s) or other Psychiatric Psychiatric: Denies anxiety, depression, homicidal ideation, suicidal ideation or other Endocrine Endocrinology: Denies change in body appearance, cold intolerance, excessive sweating, heat intolerance, polydipsia, polyuria or other Hematologic/Lymphatic Hematologic/Lymphatic: Denies anemia, easy bleeding, easy bruising, lymphadenopathy or other Allergic/Immunologic Allergic/Immunologic: Denies rhinitis, hives, eczemia, asthma or other Vital Signs Vital Signs Vital Signs: 06/02/24 04:41 06/02/24 04:44 06/02/24 06:40 Temperature 97.8 F 97.8 F Temperature Source Oral Pulse Rate 80 77 Respiratory Rate 18 16 Respiratory Effort Normal Non-Labored Respiratory Depth Normal Respiratory Pattern Normal Blood Pressure 155/78 H 156/57 H Blood Pressure Mean 103 90 Pulse Ox 94 96 Oxygen Delivery Method Room Air Room Air Room Air 06/02/24 07:08 Temperature 98.2 F Temperature Source Pulse Rate 79 Respiratory Rate 18 Respiratory Effort Respiratory Depth Respiratory Pattern Blood Pressure 160/59 H Blood Pressure Mean 92 Pulse Ox 97 Oxygen Delivery Method Weight Weight: 91.9 kg Body Mass Index (BMI) 34.7 Physical Exam Const alert, oriented x3, no apparent distress and well nourished; Negative for healthy appearing Constitutional Narrative: Obese, elderly, white female, lying in bed, at bedside, does not appear uncomfortable at this time, pleasant, interacts appropriately General Appearance: cooperative HEENT normocephalic, head/scalp atraumatic, hearing grossly normal bilaterally and moist oral mucous membranes HEENT Narrative: Dentition is poor, Mallampati is 3, no thrush Eyes EOMs intact bilaterally and conjunctivae normal Eyes Narrative: No scleral icterus Neck supple and no JVD Neck Narrative: Trachea midline Resp normal respiratory effort, no retractions, no use of accessory muscles and clearto auscultation bilaterally Auscultation: Negative for rales, rhonchi or wheezes Cardio regular rate, regular rhythm, S1 normal heart sound, S2 normal heart sound, no rub, no gallops and no clicks Cardio Narrative: 3/6 systolic murmur loudest at left lower sternal border GI normal to inspection, nondistended, normoactive bowel sounds, soft to palpation and non-tender Extremity no clubbing, cyanosis or edema Extremity Narrative: Pedal pulses are 2+, scattered areas of ecchymosis Skin Skin Narrative: Scattered areas of new ecchymosis Neuro oriented x3, moves all extremities and no focal motor deficits Speech: speech normal Psych affect normal Results Lab / Micro Data 06/02/24 05:09 06/02/24 05:09 Labs: Laboratory Results - last 24 hr 06/02/24 05:09: WBC 13.2 H, RBC 3.96 L, Hgb 10.9 L, Hct 33.2 L, MCV 83.8, MCH 27.5, MCHC 32.8, RDW Std Deviation 42.4, RDW Coeff of Rukhsana 13.7, Plt Count 277, MPV 11.7, Immature Gran % (Auto) 0.400, Neut % (Auto) 74.3 H, Lymph % (Auto) 12.2 L, [place] % (Auto) 12.5 H, Eos % (Auto) 0.2, Baso % (Auto) 0.4, Absolute Neuts (auto) 9.8 H, Absolute Lymphs (auto) 1.61, Nucleated RBC % 0, DifferentialComment SCANNED, Diff Path Review July, PT 25.5 H, INR 2.3, APTT 51.1 H, Sodium 131 L, Potassium 4.4, Chloride 98, Carbon Dioxide 21.1, Anion Gap 12, BUN 15, Creatinine 1.00, Estim Creat Clear Calc 52.57, Est GFR (MDRD) Non-Af 58 L, BUN/Creatinine Ratio 15.2, Glucose 190 H, Calcium 9.7, Total Bilirubin 1.18, Direct Bilirubin 0.56 H, AST 27, ALT 15, Alkaline Phosphatase 78, Troponin T HighSens 21 H D, Total Protein 7.7, Albumin 3.6, Globulin 4.1 06/02/24 05:10: Urine Color Yellow, Urine Clarity Clear, Urine pH 6.0, Ur Specific Clyde 1.020, Urine Protein 15 H, Urine Glucose (UA) 100 H, Urine Ketones Negative, Urine Occult Blood Negative, Urine Nitrite Negative, Urine Bilirubin Negative, Urine Urobilinogen Normal, Ur Leukocyte Esterase Negative, Urine RBC 0 SEEN, Urine WBC 0 SEEN, Ur Squamous Epith Cells 0 SEEN, Urine Bacteria 0 SEEN, Urine Mucus 0 SEEN Imaging Radiology Impression Abdomen/Pelvis CT 06/02/24 04:56 IMPRESSION: No evidence of acute intra-abdominal traumatic injury. Possible cirrhosis again noted. Status post cholecystectomy and partial right nephrectomy. Reading Location: [facility] Brain CT 06/02/24 04:56 IMPRESSION: No intracranial hemorrhage, mass effect or calvarial fracture. Reading Location: [facility] Cervical Spine CT 06/02/24 04:56 IMPRESSION: No fracture or malalignment. Reading Location: [facility] Chest CT 06/02/24 04:56 IMPRESSION: No evidence of acute intrathoracic traumatic injury on noncontrast imaging. Reading Location: [facility] Assessment & Plan Assessment/Plan (1) Generalized weakness: (2) Fall: (3) Current use of assisted anticoagulation: (4) Debility: (5) Elevated troponin: (6) Dysuria: PLAN: Plan Falls/generalized weakness/debility -Suspect compounded from recent GI bleed and influenza A infection -No focal deficits -Patient also with significant pain from recent falls but no severe injuries noted on imaging -PT/OT consultation for assistance with functional evaluation -Consult case management/social work assistance with discharge planning as I do suspect patient will need placement prior to going home -Patient does not meet criteria for full admission and will admitted observation. Patient has commercial Medicare and will need pre-CERT prior to discharge Dysuria -UA was completely unremarkable for any signs of infection -Will check culture given symptoms however highly doubt UTI present -Hold off on antibiotics empirically at this point Troponin elevation -Very mild at 21 and 22-suspect related to elevated blood pressure -Was 19 and 19 on her last hospital visit the ED -The chest pain she is experiencing is left lateral and more flank at the ribs and reproducible with palpation -No further workup required at this time Recent GI bleed secondary to peptic ulcer disease -Continue Carafate -Continue Protonix 40 mg p.o. twice daily -Okay to continue Coumadin with stable hemoglobin -Outpatient follow-up with Dr. Jane as previously recommended Recent influenza A infection -Patient still with mild cough -Antitussives available -Suspect contributing to generalized weakness and debility Leukocytosis -Mild -may be reactive from fall -No signs of overt infection -Continue to monitor Carotid artery stenosis -90% stenosis of left w/significant collaterals, 50% stenosis of right per U/S 10/27/2020. Right ICA 20-39% stenosis -Continue outpatient ongoing investigation -Patient states she is supposed to have an appointment on Tuesday Paroxysmal atrial fibrillation with history of complete heart block -Pacemaker in place -Continue home metoprolol Essential hypertension/hyperlipidemia -Continue metoprolol -Continue home losartan -Continue home statin Asymmetric septal hypertrophy -EF of 75% on last echo from January 2023 -Continue ongoing outpatient follow-up with cardiology Liver cirrhosis -Secondary to nonalcoholic fatty liver disease I suspect -Outpatient follow-up DM-2 -Hold home glipizide -SSI as ordered -Accu-Cheks 3 times daily and AC -Will monitor sugars Hemorrhoids -Continue home Anusol History of renal cell carcinoma -Remote Chronic anemia -Hemoglobin is relatively stable -Repeat CBC in a.m. Chronic anticoagulation -For atrial fibrillation -INR is therapeutic -Repeat INR in a.m. DVT prophylaxis -Continue home Coumadin with therapeutic INR presently CODE STATUS -DNR CCA with no intubation as verified at the time of admission Charges/Coding Visit Charges Inpatient E&M: 90834 Init Hosp L2 06/02/24 0842 <Electronically signed by Cheryl Carroll DO> Cosigner Signature (if applicable): CC: Dr. Cheryl Carroll DO; Dr. Flako Tracy MD~ Signed [facility] Work Phone: [phone] Discharge summary Author Ian Brambila [facility] Note Date/Time June 02, 2024 7:1 3am [facility] Medical Records Department [address] [place] [address] Emergency Department Summary 06/02/24 MR#: [id number] Acct: [id number] Name: LAISHA WALKER Rep #:[id number] : 1950 74 From: Ian Brambila DO PCP: Dr. Flako Tracy MD Status:RE G ER Location: ED HPI History of Present Illness Chief Complaint: Fall Narrative Narrative: Patient is a 74-year-old female with past medical history of chronic kidney disease, complete heart block with pacemaker, renal cell carcinoma, DVT on warfarin, TIA, paroxysmal A-fib, diabetes, hyperlipidemia, hypertension who presented to the emerged part with chief complaint of fall. Patient states thatshe was attempted to go use the restroom walking with her rollator when she losther balance falling backwards hitting her head against the wall. Patient is complaining of some back pain as well states that she has had back pain for the last several days. Patient states that she did not pass out she remembers the entire event. [facility] Medical History Pacemaker Obesity (BMI 30-39.9) Cancer of kidney Cirrhosis of liver not due to alcohol Goiter Depression History of renal carcinoma Stage 3a chronic kidney disease (CKD) Bilateral carotid artery stenosis (10/27/20) Complete heart block Thrombosed external hemorrhoid Osteoporosis Cancer Irregular heart beat DVT (deep venous thrombosis) TIA (transient ischemic attack) Rectal pain Chronic anemia Obesity PAF (paroxysmal atrial fibrillation) Asthma Diabetes Hemorrhoids Arthritis Hypertension VTE (venous thromboembolism) CVA (cerebral vascular accident) PAF (paroxysmal atrial fibrillation) HLD (hyperlipidemia) Home Medications ?Medication ?Instructions ?Recorded ?Last Taken ?Type acetaminophen 325 mg tablet 1,000 mg PO QHS 06/26/16 0 06/29/16 History 1000 mg loratadine 10 mg tablet 10 mg PO QHS 30 days 7 Unknown Rx docusate sodium 100 mg capsule 200 mg PO QHS 01/21/23 Unknown History (Colace) multivitamin (Daily Multi-Vitamin 1 tab PO DAILY 01/21 Unknown History tablet) hydrocortisone 2.5 % topical cream 1 applic FL QD-BID PRN hemorrhoids 02/04/23 Unknown History with perineal applicator (Anusol-HC) promethazine 12.5 mg tablet 12.5 mg PO Q6H PRN nausea and 02/04/23 Unknown History vomiting metoprolol tartrate 50 mg tablet 50 mg PO BID #180 tab s 02/24/24 Unknown Rx rosuvastatin 20 mg tablet 20 mg PO QHS #90 tabs Unknown Rx glipizide 10 mg tablet, extended 10 mg PO BID 04/18/24 Unknown History release 24 hr ondansetron 4 mg disintegrating 4 mg PO Q8H PRN PRN Na usea #10 tabs 05/14/24 Unknown Rx tablet warfarin 2.5 mg tablet 2.5 mg PO MOTUWETH 05/15/24 Unknown History warfarin 5 mg tablet 5 mg PO .FRSASU 05/15/24 Unk nown History pantoprazole 40 mg tablet,delayed 40 mg PO BID #60 tab s 05/17/24 Unknown Rx release sucralfate 1 gram tablet 1 g PO TIDAC #90 tabs Unknown Rx losartan 25 mg tablet 12.5 mg (1/2 x 25 mg) PO ORION LY #45 05/21/24 Unknown Rx tabs methocarbamol 500 mg tablet 500 mg PO 4X/DAY PRN Muscl e 05/30/24 Unknown Rx pain/spasm #40 tabs tramadol 50 mg tablet 50 mg PO Q6H PRN pain 3 days #12 05/30/24 Unknown Rx tabs Allergy/AdvReac Type Severity Reaction Status Date / Time simvastatin Allergy Severe Unknown Verified 06/02/24 04:41 etodolac AdvReac Intermediate GI upset Verified 06/02/24 04:41 gabapentin AdvReac Intermediate dizziness Verified 06/02/24 04:41 NSAIDS (Non-Steroidal AdvReac Intermediate GI upset Verified 06/02/24 04:41 Anti-Inflamma sulfamethoxazole AdvReac Intermediate Sulfa Verified 06/02/24 04:41 drugs GI upset sulfametrole AdvReac Intermediate GI upset Verified 06/02/24 04:41 valdecoxib (From Bextra) AdvReac Intermediate GI upset Verified 06/02/24 04:41 atorvastatin AdvReac Unknown unknown Verified 06/02/24 04:41 codeine AdvReac Unknown unknown Verified 06/02/24 04:41 guaifenesin (From Entex LA) AdvReac Unknown unknown Verified 06/02/24 04:41 hydrocodone AdvReac Unknown unknown Verified 06/02/24 04:41 naproxen (From Naprosyn) AdvReac Unknown unknown Verified 06/02/24 04:41 phenylephrine (From Entex LA) AdvReac Unknown unknown Verified 06/02/24 04:41 phenylpropanolamine (From AdvReac Unknown unknown Verified 06/02/24 04:41 Entex LA) pravastatin AdvReac Unknown unknown Verified 06/02/24 04:41 quinapril (From Accupril) AdvReac Unknown Unknown Verified 06/02/24 04:41 rofecoxib (From Vioxx) AdvReac Unknown unknown Verified 06/02/24 04:41 Sulfa (Sulfonamide AdvReac Unknown Diarrhea Verified 06/02/24 04:41 Antibiotics) tramadol AdvReac Unknown unknown Verified 06/02/24 04:41 celecoxib (From Celebrex) AdvReac Nausea/Vom/ Verified 06/02/24 04:41 Diarrhea fluoxetine HCl (From Prozac) AdvReac Other Verified 06/02/24 04:41 isosorbide AdvReac Other Verified 06/02/24 04:41 metformin AdvReac Nausea/Vom/ Verified 06/02/24 04:41 Diarrhea Family History Mother CVA (cerebral vascular accident) Diabetes Heart disease Father CVA (cerebral vascular accident) Diabetes Heart disease 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 Surgical History S/P placement of cardiac pacemaker History of incision and drainage H/O partial nephrectomy History of hysterectomy History of knee replacement History of cholecystectomy History of shoulder surgery History of appendectomy Social History household members: spouse Smoking Status: Never smoker alcohol intake: never substance use type: does not use ROS ROS ED ROS Narrative Constitutional: Complains of headache denies any lightheadedness dizziness fevers or chills Eyes: Denies change in vision double vision blurry Cardiovascular: Denies chest pain or palpitations Respiratory: Denies coughing wheezing shortness of breath Abdomen: Complains of abdominal pain denies nausea vomit diarrhea : Denies urinary symptoms Neurological: Denies numbness, tingling Musculoskeletal: Complains of back pain as noted above Skin: Denies rashes or lesions EXAM Physical Exam Narrative Exam Narrative: General: Patient was lying in bed rest comfortably did not appear to be in acutedistress Head: Atraumatic, normocephalic Eyes: PERRL bilaterally, EOMI bilateral, no conjunctival injection noted Neck: Soft, supple, trachea midline Cardiovascular: Regular rate and rhythm no murmurs gallops rubs noted Respiratory: Clear to auscultation bilaterally Abdomen: Soft, nondistended, nontender to palpation Extremities: +4/5 strength noted in the bilateral upper and lower extremities, radial pulse +2/4 in the bilateral per extremities Neurological: Patient following commands that she was at [facility] years 2024 Skin: Warm, dry, intact no rashes or lesions noted Const Vital Signs: 06/02/24 04:41 06/02/24 04:44 06/02/24 06:40 Temperature 97.8 F 97.8 F Temperature Source Oral Pulse Rate 80 77 Respiratory Rate 18 16 Respiratory Effort Normal Non-Labored Respiratory Depth Normal Respiratory Pattern Normal Blood Pressure 155/78 H 156/57 H Blood Pressure Mean 103 90 Pulse Ox 94 96 Oxygen Delivery Method Room Air Room Air Room Air 06/02/24 07:08 Temperature 98.2 F Temperature Source Pulse Rate 79 Respiratory Rate 18 Respiratory Effort Respiratory Depth Respiratory Pattern Blood Pressure 160/59 H Blood Pressure Mean 92 Pulse Ox 97 Oxygen Delivery Method MDM MDM MDM Narrative Medical decision making narrative: Patient is a 74-year-old female who presented to the emergency department chief complaint of losing her balance and falling backwards hitting her head she is onwarfarin. On the differential diagnose includes but limited to intracranial hemorrhage, cervical spine fracture, intra-abdominal hemorrhage, thoracic lumbarfracture, rib fracture. Once workup is obtained reviewed she will be reevaluated. Patient CBC was reviewed and showed a white blood count of 13,000, hemoglobin 10.6, plate count normal at 277. Patient INR of 2.3 within therapeutic range for on warfarin, sodium was 131, potassium normal 4.4, creatinine was 1. Patient's AST and ALT are 2715 respectively. Patient's troponin was noted be 21delta troponin pending at this point in time. Patient's EKG per computer showedheart rate of 149 bpm her heart rate was not 149 bpm on his EKG was roughly around 75 bpm did show a paced rhythm no Sgarbossa criteria were met. Patient'surinalysis reviewed and showed no evidence of infection. Patient's CT head and brain without contrast showed no acute hemorrhage. Patient CT cervical spine was reviewed and showed no fracture or malalignment. Patient CT chest reviewed and showed no evidence of acute intrathoracic traumatic injury. Patient CT abdomen pelvis with IV contrast showed no acute intra-abdominal traumatic injuries possible cirrhosis again noted status post cholecystectomy and right nephrectomy noted. Patient did ambulate to the bathroom however she felt shaky during this. Patient's delta troponin is pending. After further discussion with the patient and family at bedside she states that given that she was unsteady on her feet and has had multiple falls and multiple visits recently they do believe that she will benefit from rehab. Patient's case will be discussed with hospitalist for admission for PT/OT evaluation for possible placement Discussed case with hospitalist Dr. Carroll who accept the patient for admission. Patient and significant other bedside are agreeable this plan all question concerns answered. Lab Data Labs: Laboratory Results - last 24 hr 06/02/24 06/02/24 05:09 05:10 WBC 13.2 H RBC 3.96 L Hgb 10.9 L Hct 33.2 L MCV 83.8 MCH 27.5 MCHC 32.8 RDW Std Deviation 42.4 RDW Coeff of Rukhsana 13.7 Plt Count 277 MPV 11.7 Immature Gran % (Auto) 0.400 Neut % (Auto) 74.3 H Lymph % (Auto) 12.2 L [place] % (Auto) 12.5 H Eos % (Auto) 0.2 Baso % (Auto) 0.4 Absolute Neuts (auto) 9.8 H Absolute Lymphs (auto) 1.61 Nucleated RBC % 0 Differential Comment SCANNED Diff Path Review May foll PT 25.5 H INR 2.3 APTT 51.1 H Sodium 131 L Potassium 4.4 Chloride 98 Carbon Dioxide 21.1 Anion Gap 12 BUN 15 Creatinine 1.00 Estim Creat Clear Calc 52.57 Est GFR (MDRD) Non-Af 58 L BUN/Creatinine Ratio 15.2 Glucose 190 H Calcium 9.7 Total Bilirubin 1.18 Direct Bilirubin 0.56 H AST 27 ALT 15 Alkaline Phosphatase 78 Troponin T High Sens 21 H D Total Protein 7.7 Albumin 3.6 Globulin 4.1 Urine Color Yellow Urine Clarity Clear Urine pH 6.0 Ur Specific Clyde 1.020 Urine Protein 15 H Urine Glucose (UA) 100 H Urine Ketones Negative Urine Occult Blood Negative Urine Nitrite Negative Urine Bilirubin Negative Urine Urobilinogen Normal Ur Leukocyte Esterase Negative Urine RBC 0 SEEN Urine WBC 0 SEEN Ur Squamous Epith Cells 0 SEEN Urine Bacteria 0 SEEN Urine Mucus 0 SEEN Radiography Diagnostic Testing: Clinical Impression(s) from Imaging Studies Abdomen/Pelvis CT 06/02/24 04:56 IMPRESSION: No evidence of acute intra-abdominal traumatic injury. Possible cirrhosis again noted. Status post cholecystectomy and partial right nephrectomy. Reading Location: [id number] Brain CT 06/02/24 04:56 IMPRESSION: No intracranial hemorrhage, mass effect or calvarial fracture. Reading Location: [facility] Cervical Spine CT 06/02/24 04:56 IMPRESSION: No fracture or malalignment. Reading Location: [facility] Chest CT 06/02/24 04:56 IMPRESSION: No evidence of acute intrathoracic traumatic injury on noncontrast imaging. Reading Location: [facility] Discharge Plan Triage Chief Complaint: Fall ED Provider: Ian Brambila Dx/Rx/DC Orders Clinical Impression: Fall, Generalized weakness Prescriptions: No Action promethazine 12.5 mg tablet 12.5 mg PO Q6H PRN (Reason: nausea and vomiting) hydrocortisone [Anusol-HC] 2.5 % cream with perineal applicator 1 applic FL QD-BID PRN (Reason: hemorrhoids) glipizide 10 mg tablet extended release 24hr 10 mg PO BID acetaminophen 325 MG tablet 1,000 mg PO QHS Patient Comments: pain control loratadine 10 MG tablet 10 mg PO QHS 30 Days 0RF multivitamin [Daily Multi-Vitamin] Tablet 1 tab PO DAILY docusate sodium [Colace] 100 mg capsule 200 mg PO QHS ondansetron 4 mg tablet,disintegrating 4 mg PO Q8H PRN PRN (Reason: Nausea) Qty: 10 0RF warfarin 5 mg tablet 5 mg PO .FRSASU Protocol: Dose Management Condition: Tuesday Dose/Route: 5 mg Instruction: 1 x 5 mg tablet Condition: Tuesday Dose/Route: 2.5 mg Instruction: 1 x 2.5 mg tablet Condition: Tuesday Dose/Route: 2.5 mg Instruction: 1 x 2.5 mg tablet Condition: Tuesday Dose/Route: 2.5 mg Instruction: 1 x 2.5 mg tablet Condition: Dose/Route: 2.5 mg Instruction: 1 x 2.5 mg tablet Condition: Tuesday Dose/Route: 5 mg Instruction: 1 x 5 mg tablet Condition: Tuesday Dose/Route: 5 mg Instruction: 1 x 5 mg tablet Protocol Text: Adjustment Start Date: 05/24/24 INR Value: 1.5 INR Date: 05/24/24 Recheck Date: 05/31/24 warfarin 2.5 mg tablet 2.5 mg PO MOTUWETH Protocol: Dose Management Condition: Tuesday Dose/Route: 5 mg Instruction: 1 x 5 mg tablet Condition: Tuesday Dose/Route: 2.5 mg Instruction: 1 x 2.5 mg tablet Condition: Tuesday Dose/Route: 2.5 mg Instruction: 1 x 2.5 mg tablet Condition: Tuesday Dose/Route: 2.5 mg Instruction: 1 x 2.5 mg tablet Condition: Dose/Route: 2.5 mg Instruction: 1 x 2.5 mg tablet Condition: Tuesday Dose/Route: 5 mg Instruction: 1 x 5 mg tablet Condition: Tuesday Dose/Route: 5 mg Instruction: 1 x 5 mg tablet Protocol Text: Adjustment Start Date: 05/24/24 INR Value: 1.5 INR Date: 05/24/24 Recheck Date: 05/31/24 Rx Instructions: 2.5 mg orally 1 tablet (2.5 mg) on Tuesday, Tuesday, Tuesday, and ; 2 tablets together to = 5mg on Tuesday, Tuesday and Tuesday at bedtdime; dose changes often, please give extra tablets sucralfate 1 gram Tablet 1 g PO TIDAC Qty: 90 0RF pantoprazole 40 mg tablet,delayed release (DR/EC) 40 mg PO BID Qty: 60 0RF tramadol 50 mg tablet 50 mg PO Q6H PRN (Reason: pain) 3 Days Qty: 12 0RF methocarbamol 500 mg tablet 500 mg PO 4X/DAY PRN (Reason: Muscle pain/spasm) Qty: 40 0RF metoprolol tartrate 50 mg tablet 50 mg PO BID Qty: 180 3RF rosuvastatin 20 mg tablet 20 mg PO QHS Qty: 90 3RF losartan 25 mg tablet 12.5 mg PO DAILY Qty: 45 3RF Rx Instructions: Hold for SBP less than 130 mmHg Primary Care Provider: Flaok Tracy Referrals: Flako Tracy MD [Primary Care Provider] - Print Language: Hungarian Disposition Disposition: Acute Care Hospital [facility] What to do if you have Problems For any increased pain, shortness of breath, bleeding, nausea or vomiting, chestpain, or any unexpected problems, contact your Primary Care Provider. Call [facility] ([phone]) or report to the closest Emergency Room. Call 911 if necessary. 06/02/24712 <Electronically signed by Ian Brambila DO> Cosigner Signature (if applicable): CC: Dr. Flako Tracy MD ~ Signed [facility] Work Phone: [phone] 281-692703-29-2025 Evaluation note* Diagnosis Onset Date Resolution Status Admit Date Debility acute June 02 7:13am Dysuria acute June 02 7:13am Elevated troponin resolved May 062024 7:13am Fall resolved June 02 7:13am Generalized weakness resolved 2024 7:13am 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 inactive June 02, 2024 7:13am Duodenal ulcer acute June 13, 2024 1:50pm Abdominal pain chronic June 13, 2024 1:50pm Cirrhosis chronic June 13 1:50pm Elevated CA 19-9 level chronic Ap 2024 1:50pm Left carotid artery occlusion acute June 22, 2024 8:24am Stenosis of right carotid artery acu te June 22, 2024 8:24am [facility] Work Phone: [phone] 249-195503-29-2025 History and physical note [facility] Medical Records Department [address] [place] [id number] H&P Exam - Hospitalist 06/02/24 0721 MR#: [id number] Acct: [id number] Name: LAISHA WALKER Rep #:[id number] : 1950 74 From: Cheryl Carroll DO PCP: Dr. Flako Tracy MD Status:KSENIA VARELA Location: [facility] [id number] HPI - General General Date of Admission: 06/02/24 Date of Service: 06/02/24 Chief Complaint: Falls HPI Narrative LAISHA WALKER, is a 74 F who presented to the emergency department [facility] on 06/02/2024 early in the morning after she sustained a fall at home. Patient was recently admitted here in mid May at which time she was found to have a duodenal ulcer. She is on Coumadin at baseline for atrial fibrillation and her Coumadin was held. Appears that her hemoglobin is stabilized since that point in time. She was then diagnosed with influenza and was back in the emergency department 3 days ago on the . At that time she was planing of some left-sided flank pain/chest pain and complained of some ongoing coughing. She was stable on room air at 97 to 100% and vitals were otherwise unremarkable at that time. A CTA was performed and was unremarkable for any lung pathology or pulmonary embolus/dissection. She was sent home with a course of Ultram and methocarbamol. Since discharge she has had 2 falls. Shehas not sustained any serious injury however she is sore. Early this morning she was getting up to use the restroom and walking with her rollator walker and lost her balance falling backwards and hitting her head against the wall. On presentation she was complaining of a sore back. The flank pain that she had previously has still been somewhat problematic. Patient had no loss of consciousness. She also complains of some dysuria. She said no fever or chills. She still is having some intermittent cough related to her recent influenza infection. Vital signs on presentation showed temperature of 97.8, heart rate 80, respiratory rate 18, blood pressure was 155/78 and pulse ox was 94 to 96% on room air. CBC shows a mild leukocytosis with a white count of 13.2. She does have a mild left shift there is a 74.3% neutrophilia. I am unclear if thisis reactive or an infectious etiology as patient has no significant infectious concerns other send dysuria and her UA is unremarkable. She has anemia with a hemoglobin of 10.9 which appears to be fairly stable compared to previous. Her INR was 2.3 on presentation. She had mild hyponatremia sodium of 131 renal function is normal. Glucose was 190. Liver functions were unremarkable. Initial troponinwas 21 with a repeat of 22. Her troponin was mildly elevated at her last ED visit to . UA showed some mild dehydration with a specific gravity of 1.02 but is negative for nitrites, leuk esterase, white cells, and bacteria. She was garland scanned on presentation due to trauma. She did have a CTA of her chest on 05/30/[address] again [address] was negative[address] CT of the abdomen pelvis was unremarkable for any acute findings. CT of the brain was unremarkable for any acute findings. CT of the cervical spine was negative for any acute findings, and CT of her chest was unremarkable for any acute findings [facility] Medical History Pacemaker Obesity (BMI 30-39.9) Cancer of kidney Cirrhosis of liver not due to alcohol Goiter Depression History of renal carcinoma Stage 3a chronic kidney disease (CKD) Bilateral carotid artery stenosis (10/27/20) Complete heart block Thrombosed external hemorrhoid Osteoporosis Cancer Irregular heart beat DVT (deep venous thrombosis) TIA (transient ischemic attack) Rectal pain Chronic anemia Obesity PAF (paroxysmal atrial fibrillation) Asthma Diabetes Hemorrhoids Arthritis Hypertension VTE (venous thromboembolism) CVA (cerebral vascular accident) PAF (paroxysmal atrial fibrillation) HLD (hyperlipidemia) Home Medications ?Medication ?Instructions ?Recorded ?Last Taken ?Type acetaminophen 325 mg tablet 1,000 mg PO QHS 06/26/16 0 06/29/16 History 1000 mg loratadine 10 mg tablet 10 mg PO QHS 30 days 7 Unknown Rx docusate sodium 100 mg capsule 200 mg PO QHS 01/21/23 Unknown History (Colace) multivitamin (Daily Multi-Vitamin 1 tab PO DAILY 01/21 Unknown History tablet) hydrocortisone 2.5 % topical cream 1 applic FL QD-BID PRN hemorrhoids 02/04/23 Unknown History with perineal applicator (Anusol-HC) promethazine 12.5 mg tablet 12.5 mg PO Q6H PRN nausea and 02/04/23 Unknown History vomiting metoprolol tartrate 50 mg tablet 50 mg PO BID #180 tab s 02/24/24 Unknown Rx rosuvastatin 20 mg tablet 20 mg PO QHS #90 tabs Unknown Rx glipizide 10 mg tablet, extended 10 mg PO BID 04/18/24 Unknown History release 24 hr ondansetron 4 mg disintegrating 4 mg PO Q8H PRN PRN Na usea #10 tabs 05/14/24 Unknown Rx tablet warfarin 2.5 mg tablet 2.5 mg PO MOTUWETH 05/15/24 Unknown History warfarin 5 mg tablet 5 mg PO .FRSASU 05/15/24 Unk nown History pantoprazole 40 mg tablet,delayed 40 mg PO BID #60 tab s 05/17/24 Unknown Rx release sucralfate 1 gram tablet 1 g PO TIDAC #90 tabs Unknown Rx losartan 25 mg tablet 12.5 mg (1/2 x 25 mg) PO ORION LY #45 05/21/24 Unknown Rx tabs methocarbamol 500 mg tablet 500 mg PO 4X/DAY PRN Muscl e 05/30/24 Unknown Rx pain/spasm #40 tabs tramadol 50 mg tablet 50 mg PO Q6H PRN pain 3 days #12 05/30/24 Unknown Rx tabs Allergy/AdvReac Type Severity Reaction Status Date / Time simvastatin Allergy Severe Unknown Verified 06/02/24 04:41 etodolac AdvReac Intermediate GI upset Verified 06/02/24 04:41 gabapentin AdvReac Intermediate dizziness Verified 06/02/24 04:41 NSAIDS (Non-Steroidal AdvReac Intermediate GI upset Verified 06/02/24 04:41 Anti-Inflamma sulfamethoxazole AdvReac Intermediate Sulfa Verified 06/02/24 04:41 drugs GI upset sulfametrole AdvReac Intermediate GI upset Verified 06/02/24 04:41 valdecoxib (From Bextra) AdvReac Intermediate GI upset Verified 06/02/24 04:41 atorvastatin AdvReac Unknown unknown Verified 06/02/24 04:41 codeine AdvReac Unknown unknown Verified 06/02/24 04:41 guaifenesin (From Entex LA) AdvReac Unknown unknown Verified 06/02/24 04:41 hydrocodone AdvReac Unknown unknown Verified 06/02/24 04:41 naproxen (From Naprosyn) AdvReac Unknown unknown Verified 06/02/24 04:41 phenylephrine (From Entex LA) AdvReac Unknown unknown Verified 06/02/24 04:41 phenylpropanolamine (From AdvReac Unknown unknown Verified 06/02/24 04:41 Entex LA) pravastatin AdvReac Unknown unknown Verified 06/02/24 04:41 quinapril (From Accupril) AdvReac Unknown Unknown Verified 06/02/24 04:41 rofecoxib (From Vioxx) AdvReac Unknown unknown Verified 06/02/24 04:41 Sulfa (Sulfonamide AdvReac Unknown Diarrhea Verified 06/02/24 04:41 Antibiotics) tramadol AdvReac Unknown unknown Verified 06/02/24 04:41 celecoxib (From Celebrex) AdvReac Nausea/Vom/ Verified 06/02/24 04:41 Diarrhea fluoxetine HCl (From Prozac) AdvReac Other Verified 06/02/24 04:41 isosorbide AdvReac Other Verified 06/02/24 04:41 metformin AdvReac Nausea/Vom/ Verified 06/02/24 04:41 Diarrhea Family History Mother CVA (cerebral vascular accident) Diabetes Heart disease Father CVA (cerebral vascular accident) Diabetes Heart disease 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 Cheryl Carroll DO) household members: spouse Smoking Status: Never smoker alcohol intake: never substance use type: does not use additional social history: Ambulates with a wheeled walker ROS Constitutional Constitutional: Reports fatigue and weakness; Denies anorexia, change in weight,chills, fever(s), malaise, night sweats or other Eyes Eyes: Denies blurry vision, change in eye color, change in vision, discharge from eye(s), double vision, erythema, eye pain, loss of vision or other ENT HEENT: Denies abnormal hearing, dysphagia, ear pain, epistaxis, headache(s), hearing loss, nasal congestion, nasal discharge, post nasal drip, sinus pressure, sore throat or other Cardiovascular Cardiovascular: Denies chest pain, claudication, dyspnea on exertion, edema, lightheadedness, orthopnea, palpitations, paroxysmal nocturnal dyspnea, rapid heart rate, syncope or other Respiratory/Chest Respiratory/Chest: Reports other Details: Left-sided flank pain Gastrointestinal Gastrointestinal: Denies abdominal pain, coffee ground emesis, constipation, diarrhea, dyspepsia, hematemesis, hematochezia, loose stools, melena, nausea, vomiting or other Genitourinary Genitourinary: Reports dysuria; Denies burning urination, difficulty urinating, hematuria, nocturia, urinary frequency, urinary hesitancy, urinary incontinence,urinary urgency or other Musculoskeletal Musculoskeletal: Reports back pain, joint pain, joint stiffness, neck pain and other Details: Left scapular pain, left hip pains, left leg pain ; Denies arthralgias, joint swelling or myalgias Neurologic Neurologic: Reports abnormal gait; Denies abnormal speech, confusion, disequilibrium, dizziness, focal weakness, headache(s), numbness, paresthesias, seizure-like activity, seizures, syncope, tingling, tremor(s) or other Psychiatric Psychiatric: Denies anxiety, depression, homicidal ideation, suicidal ideation or other Endocrine Endocrinology: Denies change in body appearance, cold intolerance, excessive sweating, heat intolerance, polydipsia, polyuria or other Hematologic/Lymphatic Hematologic/Lymphatic: Denies anemia, easy bleeding, easy bruising, lymphadenopathy or other Allergic/Immunologic Allergic/Immunologic: Denies rhinitis, hives, eczemia, asthma or other Vital Signs Vital Signs Vital Signs: 06/02/24 04:41 06/02/24 04:44 06/02/24 06:40 Temperature 97.8 F 97.8 F Temperature Source Oral Pulse Rate 80 77 Respiratory Rate 18 16 Respiratory Effort Normal Non-Labored Respiratory Depth Normal Respiratory Pattern Normal Blood Pressure 155/78 H 156/57 H Blood Pressure Mean 103 90 Pulse Ox 94 96 Oxygen Delivery Method Room Air Room Air Room Air 06/02/24 07:08 Temperature 98.2 F Temperature Source Pulse Rate 79 Respiratory Rate 18 Respiratory Effort Respiratory Depth Respiratory Pattern Blood Pressure 160/59 H Blood Pressure Mean 92 Pulse Ox 97 Oxygen Delivery Method Weight Weight: 91.9 kg Body Mass Index (BMI) 34.7 Physical Exam Const alert, oriented x3, no apparent distress and well nourished; Negative for healthy appearing Constitutional Narrative: Obese, elderly, white female, lying in bed, at bedside, does not appear uncomfortable at this time, pleasant, interacts appropriately General Appearance: cooperative HEENT normocephalic, head/scalp atraumatic, hearing grossly normal bilaterally and moist oral mucous membranes HEENT Narrative: Dentition is poor, Mallampati is 3, no thrush Eyes EOMs intact bilaterally and conjunctivae normal Eyes Narrative: No scleral icterus Neck supple and no JVD Neck Narrative: Trachea midline Resp normal respiratory effort, no retractions, no use of accessory muscles and clearto auscultation bilaterally Auscultation: Negative for rales, rhonchi or wheezes Cardio regular rate, regular rhythm, S1 normal heart sound, S2 normal heart sound, no rub, no gallops and no clicks Cardio Narrative: 3/6 systolic murmur loudest at left lower sternal border GI normal to inspection, nondistended, normoactive bowel sounds, soft to palpation and non-tender Extremity no clubbing, cyanosis or edema Extremity Narrative: Pedal pulses are 2+, scattered areas of ecchymosis Skin Skin Narrative: Scattered areas of new ecchymosis Neuro oriented x3, moves all extremities and no focal motor deficits Speech: speech normal Psych affect normal Results Lab / Micro Data 06/02/24 05:09 06/02/24 05:09 Labs: Laboratory Results - last 24 hr 06/02/24 05:09: WBC 13.2 H, RBC 3.96 L, Hgb 10.9 L, Hct 33.2 L, MCV 83.8, MCH 27.5, MCHC 32.8, RDW Std Deviation 42.4, RDW Coeff of Rukhsana 13.7, Plt Count 277, MPV 11.7, Immature Gran % (Auto) 0.400, Neut % (Auto) 74.3 H, Lymph % (Auto) 12.2 L, De [place] % (Auto) 12.5 H, Eos % (Auto) 0.2, Baso % (Auto) 0.4, Absolute Neuts (auto) 9.8 H, Absolute Lymphs (auto) 1.61, Nucleated RBC % 0, DifferentialComment SCANNED, Diff Path Review July, PT 25.5 H, INR 2.3, APTT 51.1 H, Sodium 131 L, Potassium 4.4, Chloride 98, Carbon Dioxide 21.1, Anion Gap 12, BUN 15, Creatinine 1.00, Estim Creat Clear Calc 52.57, Est GFR (MDRD) Non-Af 58 L, BUN/Creatinine Ratio 15.2, Glucose 190 H, Calcium 9.7, Total Bilirubin 1. 18, Direct Bilirubin 0.56 H, AST 27, ALT 15, Alkaline Phosphatase 78, Troponin T HighSens 21 H D, Total Protein 7.7, Albumin 3.6, Globulin 4.1 06/02/24 05:10: Urine Color Yellow, Urine Clarity Clear, Urine pH 6.0, Ur Specific Clyde 1.020, Urine Protein 15 H, Urine Glucose (UA) 100 H, Urine Ketones Negative, Urine Occult Blood Negative, Urine Nitrite Negative, Urine Bilirubin Negative, Urine Urobilinogen Normal, Ur Leukocyte Esterase Negative, Urine RBC 0 SEEN, Urine WBC 0 SEEN, Ur Squamous Epith Cells 0 SEEN, Urine Bacteria 0 SEEN, Urine Mucus 0 SEEN Imaging Radiology Impression Abdomen/Pelvis CT 06/02/24 04:56 IMPRESSION: No evidence of acute intra-abdominal traumatic injury. Possible cirrhosis again noted. Status post cholecystectomy and partial right nephrectomy. Reading Location: [facility] Brain CT 06/02/24 04:56 IMPRESSION: No intracranial hemorrhage, mass effect or calvarial fracture. Reading Location: [facility] Cervical Spine CT 06/02/24 04:56 IMPRESSION: No fracture or malalignment. Reading Location: [facility] Chest CT 06/02/24 04:56 IMPRESSION: No evidence of acute intrathoracic traumatic injury on noncontrast imaging. Reading Location: [facility] Assessment & Plan Assessment/Plan (1) Generalized weakness: (2) Fall: (3) 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: (4) Debility: (5) Elevated troponin: (6) Dysuria: PLAN: Plan Falls/generalized weakness/debility -Suspect compounded from recent GI bleed and influenza A infection -No focal deficits -Patient also with significant pain from recent falls but no severe injuries noted on imaging -PT/OT consultation for assistance with functional evaluation -Consult case management/social work assistance with discharge planning as I do suspect patient will need placement prior to going home -Patient does not meet criteria for full admission and will admitted observation. Patient has commercial Medicare and will need pre-CERT prior to discharge Dysuria -UA was completely unremarkable for any signs of infection -Will check culture given symptoms however highly doubt UTI present -Hold off on antibiotics empirically at this point Troponin elevation -Very mild at 21 and 22-suspect related to elevated blood pressure -Was 19 and 19 on her last hospital visit the ED -The chest pain she is experiencing is left lateral and more flank at the ribs and reproducible with palpation -No further workup required at this time Recent GI bleed secondary to peptic ulcer disease -Continue Carafate -Continue Protonix 40 mg p.o. twice daily -Okay to continue Coumadin with stable hemoglobin -Outpatient follow-up with Dr. Jane as previously recommended Recent influenza A infection -Patient still with mild cough -Antitussives available -Suspect contributing to generalized weakness and debility Leukocytosis -Mild -may be reactive from fall -No signs of overt infection -Continue to monitor Carotid artery stenosis -90% stenosis of left w/significant collaterals, 50% stenosis of right per U/S 10/27/2020. Right NPR46-51% stenosis -Continue outpatient ongoing investigation -Patient states she is supposed to have an appointment on Tuesday Paroxysmal atrial fibrillation with history of complete heart block -Pacemaker in place -Continue home metoprolol Essential hypertension/hyperlipidemia -Continue metoprolol -Continue home losartan -Continue home statin Asymmetric septal hypertrophy -EF of 75% on last echo from January 2023 -Continue ongoing outpatient follow-up with cardiology Liver cirrhosis -Secondary to nonalcoholic fatty liver disease I suspect -Outpatient follow-up DM-2 -Hold home glipizide -SSI as ordered -Accu-Cheks 3 times daily and AC -Will monitor sugars Hemorrhoids -Continue home Anusol History of renal cell carcinoma -Remote Chronic anemia -Hemoglobin is relatively stable -Repeat CBC in a.m. Chronic anticoagulation -For atrial fibrillation -INR is therapeutic -Repeat INR in a.m. DVT prophylaxis -Continue home Coumadin with therapeutic INR presently CODE STATUS -DNR CCA with no intubation as verified at the time of admission Charges/Coding Visit Charges Inpatient E&M: 50525 Init Hosp L2 06/02/24 0842 Cosigner Signature (if applicable): CC: Dr. Cheryl Carroll DO; Dr. Flako Tracy MD~ Signed [facility]03-29-2025 Discharge summary [facility] Medical Records Department [address] [place] [address] Emergency Department Summary 06/02/24 MR#: [id number] Acct: [id number] Name: ORLANDO WALKERHOLDEN Johnston Rep #:[id number] : 1950 74 From: Ian Brambila DO PCP: Dr. Flako Tracy MD Status:RE G ER Location: ED HPI History of Present Illness Chief Complaint: Fall Narrative Narrative: Patient is a 74-year-old female with past medical history of chronic kidney disease, complete heartblock with pacemaker, renal cell carcinoma, DVT on warfarin, TIA, paroxysmal A-fib, diabetes, hyperlipidemia, hypertension who presented to the emerged part with chief complaint of fall. Patient states thatshe was attempted to go use the restroom walking with her rollator when she losther balance falling backwards hitting her head against the wall. Patient is complaining of some back pain as wellstates that she has had back pain for the last several days. Patient states that she did not pass out she remembers the entire event. [facility] Medical History Pacemaker Obesity (BMI 30-39.9) Cancer of kidney Cirrhosis of liver not due to alcohol Goiter Depression History of renal carcinoma Stage 3a chronic kidney disease (CKD) Bilateral carotid artery stenosis (10/27/20) Complete heart block Thrombosed external hemorrhoid Osteoporosis Cancer Irregular heart beat DVT (deep venous thrombosis) TIA (transient ischemic attack) Rectal pain Chronic anemia Obesity PAF (paroxysmal atrial fibrillation) Asthma Diabetes Hemorrhoids Arthritis Hypertension VTE (venous thromboembolism) CVA (cerebral vascular accident) PAF (paroxysmal atrial fibrillation) HLD (hyperlipidemia) Home Medications ?Medication ?Instructions ?Recorded ?Last Taken ?Type acetaminophen 325 mg tablet 1,000 mg PO QHS 06/26/16 0 06/29/16 History 1000 mg loratadine 10 mg tablet 10 mg PO QHS 30 days 7 Unknown Rx docusate sodium 100 mg capsule 200 mg PO QHS 01/21/23 Unknown History (Colace) multivitamin (Daily Multi-Vitamin 1 tab PO DAILY 01/21 Unknown History tablet) hydrocortisone 2.5 % topical cream 1 applic FL QD-BID PRN hemorrhoids 02/04/23 Unknown History with perineal applicator (Anusol-HC) promethazine 12.5 mg tablet 12.5 mg PO Q6H PRN nausea and 02/04/23 Unknown History vomiting metoprolol tartrate 50 mg tablet 50 mg PO BID #180 tab s 02/24/24 Unknown Rx rosuvastatin 20 mg tablet 20 mg PO QHS #90 tabs Unknown Rx glipizide 10 mg tablet, extended 10 mg PO BID 04/18/24 Unknown History release 24 hr ondansetron 4 mg disintegrating 4 mg PO Q8H PRN PRN Na usea #10 tabs 05/14/24 Unknown Rx tablet warfarin 2.5 mg tablet 2.5 mg PO MOTUWETH 05/15/24 Unknown History warfarin 5 mg tablet 5 mg PO .FRSASU 05/15/24 Unk nown History pantoprazole 40 mg tablet,delayed 40 mg PO BID #60 tab s 05/17/24 Unknown Rx release sucralfate 1 gram tablet 1 g PO TIDAC #90 tabs Unknown Rx losartan 25 mg tablet 12.5 mg (1/2 x 25 mg) PO ORION LY #45 05/21/24 Unknown Rx tabs methocarbamol 500 mg tablet 500 mg PO 4X/DAY PRN Muscl e 05/30/24 Unknown Rx pain/spasm #40 tabs tramadol 50 mg tablet 50 mg PO Q6H PRN pain 3 days #12 05/30/24 Unknown Rx tabs Allergy/AdvReac Type Severity Reaction Status Date / Time simvastatin Allergy Severe Unknown Verified 06/02/24 04:41 etodolac AdvReac Intermediate GI upset Verified 06/02/24 04:41 gabapentin AdvReac Intermediate dizziness Verified 06/02/24 04:41 NSAIDS (Non-Steroidal AdvReac Intermediate GI upset Verified 06/02/24 04:41 Anti-Inflamma sulfamethoxazole AdvReac Intermediate Sulfa Verified 06/02/24 04:41 drugs GI upset sulfametrole AdvReac Intermediate GI upset Verified 06/02/24 04:41 valdecoxib (From Bextra) AdvReac Intermediate GI upset Verified 06/02/24 04:41 atorvastatin AdvReac Unknown unknown Verified 06/02/24 04:41 codeine AdvReac Unknown unknown Verified 06/02/24 04:41 guaifenesin (From Entex [place]) AdvReac Unknown unknown Verified 06/02/24 04:41 hydrocodone AdvReac Unknown unknown Verified 06/02/24 04:41 naproxen (From Naprosyn) AdvReac Unknown unknown Verified 06/02/24 04:41 phenylephrine (From Entex [place]) AdvReac Unknown unknown Verified 06/02/24 04:41 phenylpropanolamine (From AdvReac Unknown unknown Verified 06/02/24 04:41 Entex LA) pravastatin AdvReac Unknown unknown Verified 06/02/24 04:41 quinapril (From Accupril) AdvReac Unknown Unknown Verified 06/02/24 04:41 rofecoxib (From Vioxx) AdvReac Unknown unknown Verified 06/02/24 04:41 Sulfa (Sulfonamide AdvReac Unknown Diarrhea Verified 06/02/24 04:41 Antibiotics) tramadol AdvReac Unknown unknown Verified 06/02/24 04:41 celecoxib (From Celebrex) AdvReac Nausea/Vom/ Verified 06/02/24 04:41 Diarrhea fluoxetine HCl (From Prozac) AdvReac Other Verified 06/02/24 04:41 isosorbide AdvReac Other Verified 06/02/24 04:41 metformin AdvReac Nausea/Vom/ Verified 06/02/24 04:41 Diarrhea Family History Mother CVA (cerebral vascular accident) Diabetes Heart disease Father CVA (cerebral vascular accident) Diabetes Heart disease Other USP (current) use of 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 Surgical History S/P placement of cardiac pacemaker History of incision and drainage H/O partial nephrectomy History of hysterectomy History of knee replacement History of cholecystectomy History of shoulder surgery History of appendectomy Social History household members: spouse Smoking Status: Never smoker alcohol intake: never substance use type: does not use ROS ROS ED ROS Narrative Constitutional: Complains of headache denies any lightheadedness dizziness fevers or chills Eyes: Denies change in vision double vision blurry Cardiovascular: Denies chest pain or palpitations Respiratory: Denies coughing wheezing shortness of breath Abdomen: Complains of abdominal pain denies nausea vomit diarrhea : Denies urinary symptoms Neurological: Denies numbness, tingling Musculoskeletal: Complains of back pain as noted above Skin: Denies rashes or lesions EXAM Physical Exam Narrative Exam Narrative: General: Patient was lying in bed rest comfortably did not appear to be in acutedistress Head: Atraumatic, normocephalic Eyes: PERRL bilaterally, EOMI bilateral, no conjunctival injection noted Neck: Soft, supple, trachea midline Cardiovascular: Regular rate and rhythm no murmurs gallops rubs noted Respiratory: Clear to auscultation bilaterally Abdomen: Soft, nondistended, nontender to palpation Extremities: +4/5 strength noted in the bilateral upper and lower extremities, radial pulse +2/4 inthe bilateral per extremities Neurological: Patient following commands that she was at [facility] years 2024 Skin: Warm, dry, intact no rashes or lesions noted Const Vital Signs: 06/02/24 04:41 06/02/24 04:44 06/02/24 06:40 Temperature 97.8 F 97.8 F Temperature Source Oral Pulse Rate 80 77 Respiratory Rate 18 16 Respiratory Effort Normal Non-Labored Respiratory Depth Normal Respiratory Pattern Normal Blood Pressure 155/78 H 156/57 H Blood Pressure Mean 103 90 Pulse Ox 94 96 Oxygen Delivery Method Room Air Room Air Room Air 06/02/24 07:08 Temperature 98.2 F Temperature Source Pulse Rate 79 Respiratory Rate 18 Respiratory Effort Respiratory Depth Respiratory Pattern Blood Pressure 160/59 H Blood Pressure Mean 92 Pulse Ox 97 Oxygen Delivery Method MDM MDM MDM Narrative Medical decision making narrative: Patient is a 74-year-old female who presented to the emergency department chief complaint of losingher balance and falling backwards hitting her head she is onwarfarin. On the differential diagnose includes but limited to intracranial hemorrhage, cervical spine fracture, intra-abdominal hemorrhage, thoracic lumbarfracture, rib fracture. Once workup is obtained reviewed she will be reevaluated. Patient CBC was reviewed and showed a white blood count of 13,000, hemoglobin 10.6, plate count normal at 277. Patient INR of 2.3 within therapeutic range for on warfarin, sodium was 131, potassium normal 4.4, creatinine was 1. Patient's AST and ALT are 2715 respectively. Patient's troponin was noted be 21delta troponin pending at this point in time. Patient's EKG per computer showedheart rate of149 bpm her heart rate was not 149 bpm on his EKG was roughly around 75 bpm did show a paced rhythmno Sgarbossa criteria were met. Patient'surinalysis reviewed and showed no evidence of infection. Patient's CT head and brain without contrast showed no acute hemorrhage. Patient CT cervical spine was reviewed and showed no fracture or malalignment. Patient CT chest reviewed and showed no evidence of acute intrathoracic traumatic injury. Patient CT abdomen pelvis with IV contrast showed no acute intra-abdominal traumatic injuries possible cirrhosis again noted status post cholecystectomy and right nephrectomy noted. Patient did ambulate to the bathroom however she felt shaky during this. Patient's delta troponin is pending. After further discussion with the patient and family at bedside she states that given that she was unsteady on her feet and has had multiple falls and multiple visits recently they do believe that she will benefit from rehab. Patient's case will be discussed with hospitalist for admission for PT/OTevaluation for possible placement Discussed case with hospitalist Dr. Carroll who accept the patient for admission. Patient and significant other bedside are agreeable this plan all question concerns answered. Lab Data Labs: Laboratory Results - last 24 hr 06/02/24 06/02/24 05:09 05:10 WBC 13.2 H RBC 3.96 L Hgb 10.9 L Hct 33.2 L MCV 83.8 MCH 27.5 MCHC 32.8 RDW Std Deviation 42.4 RDW Coeff of Rukhsana 13.7 Plt Count 277 MPV 11.7 Immature Gran % (Auto) 0.400 Neut % (Auto) 74.3 H Lymph % (Auto) 12.2 L De [place] % (Auto) 12.5 H Eos % (Auto) 0.2 Baso % (Auto) 0.4 Absolute Neuts (auto) 9.8 H Absolute Lymphs (auto) 1.61 Nucleated RBC % 0 Differential Comment SCANNED Diff Path Review May foll PT 25.5 H INR 2.3 APTT 51.1 H Sodium 131 L Potassium 4.4 Chloride 98 Carbon Dioxide 21.1 Anion Gap 12 BUN 15 Creatinine 1.00 Estim Creat Clear Calc 52.57 Est GFR (MDRD) Non-Af 58 L BUN/Creatinine Ratio 15.2 Glucose 190 H Calcium 9.7 Total Bilirubin 1.18 Direct Bilirubin 0.56 H AST 27 ALT 15 Alkaline Phosphatase 78 Troponin T High Sens 21 H D Total Protein 7.7 Albumin 3.6 Globulin 4.1 Urine Color Yellow Urine Clarity Clear Urine pH 6.0 Ur Specific Clyde 1.020 Urine Protein 15 H Urine Glucose (UA) 100 H Urine Ketones Negative Urine Occult Blood Negative Urine Nitrite Negative Urine Bilirubin Negative Urine Urobilinogen Normal Ur Leukocyte Esterase Negative Urine RBC 0 SEEN Urine WBC 0 SEEN Ur Squamous Epith Cells 0 SEEN Urine Bacteria 0 SEEN Urine Mucus 0 SEEN Radiography Diagnostic Testing: Clinical Impression(s) from Imaging Studies Abdomen/Pelvis CT 06/02/24 04:56 IMPRESSION: No evidence of acute intra-abdominal traumatic injury. Possible cirrhosis again noted. Status post cholecystectomy and partial right nephrectomy. Reading Location: [facility] Brain CT 06/02/24 04:56 IMPRESSION: No intracranial hemorrhage, mass effect or calvarial fracture. Reading Location: [facility] Cervical Spine CT 06/02/24 04:56 IMPRESSION: No fracture or malalignment. Reading Location: [facility] Chest CT 06/02/24 04:56 IMPRESSION: No evidence of acute intrathoracic traumatic injury on noncontrast imaging. Reading Location: [facility] Discharge Plan Triage Chief Complaint: Fall ED Provider: Ian Brambila Dx/Rx/DC Orders Clinical Impression: Fall, Generalized weakness Prescriptions: No Action promethazine 12.5 mg tablet 12.5 mg PO Q6H PRN (Reason: nausea and vomiting) hydrocortisone [Anusol-HC] 2.5 % cream with perineal applicator 1 applic FL QD-BID PRN (Reason: hemorrhoids) glipizide 10 mg tablet extended release 24hr 10 mg PO BID acetaminophen 325 MG tablet 1,000 mg PO QHS Patient Comments: pain control loratadine 10 MG tablet 10 mg PO QHS 30 Days 0RF multivitamin [Daily Multi-Vitamin] Tablet 1 tab PO DAILY docusate sodium [Colace] 100 mg capsule 200 mg PO QHS ondansetron 4 mg tablet,disintegrating 4 mg PO Q8H PRN PRN (Reason: Nausea) Qty: 10 0RF warfarin 5 mg tablet 5 mg [facility] Protocol: Dose Management Condition: Tuesday Dose/Route: 5 mg Instruction: 1 x 5 mg tablet Condition: Tuesday Dose/Route: 2.5 mg Instruction: 1 x 2.5 mg tablet Condition: Tuesday Dose/Route: 2.5 mg Instruction: 1 x 2.5 mg tablet Condition: Tuesday Dose/Route: 2.5 mg Instruction: 1 x 2.5 mg tablet Condition: Dose/Route: 2.5 mg Instruction: 1 x 2.5 mg tablet Condition: Tuesday Dose/Route: 5 mg Instruction: 1 x 5 mg tablet Condition: Tuesday Dose/Route: 5 mg Instruction: 1 x 5 mg tablet Protocol Text: Adjustment Start Date: 05/24/24 INR Value: 1.5 INR Date: 05/24/24 Recheck Date: 05/31/24 warfarin 2.5 mg tablet 2.5 mg PO MOTUWETH Protocol: Dose Management Condition: Tuesday Dose/Route: 5 mg Instruction: 1 x 5 mg tablet Condition: Tuesday Dose/Route: 2.5 mg Instruction: 1 x 2.5 mg tablet Condition: Tuesday Dose/Route: 2.5 mg Instruction: 1 x 2.5 mg tablet Condition: Tuesday Dose/Route: 2.5 mg Instruction: 1 x 2.5 mg tablet Condition: Dose/Route: 2.5 mg Instruction: 1 x 2.5 mg tablet Condition: Tuesday Dose/Route: 5 mg Instruction: 1 x 5 mg tablet Condition: Tuesday Dose/Route: 5 mg Instruction: 1 x 5 mg tablet Protocol Text: Adjustment Start Date: 05/24/24 INR Value: 1.5 INR Date: 05/24/24 Recheck Date: 05/31/24 Rx Instructions: 2.5 mg orally 1 tablet (2.5 mg) on Tuesday, Tuesday, Tuesday, and ; 2 tablets together to = 5mg on Tuesday, Tuesday and Tuesday at bedtdime; dose changes often, please give extra tablets sucralfate 1 gram Tablet 1 g PO TIDAC Qty: 90 0RF pantoprazole 40 mg tablet,delayed release (DR/EC) 40 mg PO BID Qty: 60 0RF tramadol 50 mg tablet 50 mg PO Q6H PRN (Reason: pain) 3 Days Qty: 12 0RF methocarbamol 500 mg tablet 500 mg PO 4X/DAY PRN (Reason: Muscle pain/spasm) Qty: 40 0RF metoprolol tartrate 50 mg tablet 50 mg PO BID Qty: 180 3RF rosuvastatin 20 mg tablet 20 mg PO QHS Qty: 90 3RF losartan 25 mg tablet 12.5 mg PO DAILY Qty: 45 3RF Rx Instructions: Hold for SBP less than 130 mmHg Primary Care Provider: Flako Tracy Referrals: Flako Tracy MD [Primary Care Provider] - Print Language: Hungarian Disposition Disposition: Acute Care Hospital [facility] What to do if you have Problems For any increased pain, shortness of breath, bleeding, nausea or vomiting, chestpain, or any unexpected problems, contact your Primary Care Provider. Call [facility] ([phone]) or report tothe closest Emergency Room. Call 911 if necessary. 06/02/24 0713 Cosigner Signature (if applicable): CC: Dr. Flako Tracy MD ~ Signed [facility]03-29-2025 Radiology Diagnostic study note [facility] Imaging Services [address] [place] [address] Abdomen/Pelvis W IV Cont ONLY MR#: [id number] Acct: [id number] Name: LAISHA WALKER Rep #: [id number] : 1950 F 74 From: Emil Coello MD PCP: Dr. Flako Tracy MD Status: RE G ER Study:Abdomen/Pelvis W IV Cont ONLY Date of E xam: 06/02/24 Exam# [id number] Ordering Dr: Fernando Brambila DO EXAM: ABDOMEN/PELVIS W IV CONT ONLY 06/02/2024 CLINICAL HISTORY: Abdomen pain, back pain fall COMPARISON: 05/16/2024 TECHNIQUE: CT of the abdomen and pelvis with contrast with coronal and sagittal reformattedimages. 99 cc Isovue 370 contrast intravenous FINDINGS: Diffusely nodular appearing liver surface contour may represent cirrhosis. Status post cholecystectomy. The adrenal glands, left kidney, pancreas and spleen appear within limits. Large exophytic left lower pole renal cyst again seen. Changes at the lower pole of the right kidney consistent with reported history of previous partial nephrectomy. Likely tiny hepatic cyst left lobe near the dome again seen. Aortoiliac atherosclerotic changes. No abdominal aortic aneurysm. Circumaorticleft renal vein, incidental anatomic variant. No bowel dilation or free air. The appendix is not identified, no secondary signs. The bladder appears within limits. No free fluid seen. Status post apparent hysterectomy. Previous inflammatory changes at the duodenum and alexandr hepatis essentially resolved. Bailey artifact from right femoral intramedullary nail. No acute fracture. Lower lumbar spondylosis/discogenic change. CT/Abdomen/Pelvis W IV Cont ONLY IMPRESSION: No evidence of acute intra-abdominal traumatic injury. Possible cirrhosis again noted. Status post cholecystectomy and partial right nephrectomy. Reading Location: [id number] CC: Dr. Flako Tracy MD; Dr. Ian Brambila DO ~ Account Group Supervisor: Signed [facility]03-29-2025 Radiology Diagnostic study note [facility] Imaging Services [address] [place] [id number] Chest without Contrast MR#: [id number] Acct: [id number] Name: LAISHA WALKER Rep #: [id number] : 1950 F 74 From: Emil Coello MD PCP: Dr. Flako Tracy MD Status: RE G ER Study:Chest without Contrast Date of Exam: 06/02/24 Exam# [id number] Ordering Dr: Fernando Brambila DO EXAM: CHEST WITHOUT CONTRAST 06/02/2024 CLINICAL HISTORY: Back pain COMPARISON: 05/30/2024 TECHNIQUE: Noncontrast CT of the chest with coronal and sagittal reformatted images FINDINGS: Dual-chamber pacemaker again noted. Thoracic aorta appears within limits on noncontrast imaging. Atherosclerotic changes of the arch and descending thoracic aorta. Coronary calcifications appear heavy. No pericardial or pleuraleffusion. Heterogeneous nodular appearing thyroid with areas of calcification again seen. The central airways are patent. Mild dependent basilar atelectasis. The lungs otherwise appear clear. No pneumothorax. Suggestion of right shoulder rotator cuff calcific tendinosis. No acute fracture identified. CT/Chest without Contrast IMPRESSION: No evidence of acute intrathoracic traumatic injury on noncontrast imaging. Reading Location: [facility] CC: Dr. Flako Tracy MD; Dr. Ian Brambila DO ~ Account Group Supervisor: Signed [facility]03-29-2025 Radiology Diagnostic study note [facility] Imaging Services [address], [place] [id number] [phone] Spine Cervical without Contras MR#: [id number] Acct: [id number] Name: LAISHA WALKER Rep #: [id number] : 1950 F 74 From: Emil Coello MD PCP: Dr. Flako Tracy MD Status: RE G ER Study:Spine Cervical without Contras Date of Exam: 06/02/24 Exam# [id number] Ordering Dr: Fernando Brambila DO EXAM: SPINE CERVICAL WITHOUT CONTRAS 06/02/2024 CLINICAL HISTORY: Trauma COMPARISON: 07/15/2023 TECHNIQUE: Noncontrast cervical spine CT with coronal and sagittal reformatted images FINDINGS: No fracture or malalignment. The disc spaces appear within limits. No prevertebral soft tissue swelling. Bilateral facet multilevel degenerative changes again noted. Carotid vascular calcifications. Heterogeneous and somewhat lobular prominent appearance of the thyroid with left lobe larger than right and areas of calcification again noted. May follow-up with thyroid ultrasound as warranted. Visualized apices appear clear. CT/Spine Cervical without Contras IMPRESSION: No fracture or malalignment. Reading Location: [facility] CC: Dr. Flako Tracy MD; Dr. Ian Brambila DO ~ Account Group Supervisor: Signed [facility]03-29-2025 Radiology Diagnostic study note [facility] Imaging Services [address], [place] [id number] Brain/Head without Contrast MR#: [id number] Acct: [id number] Name: LAISHA WALKER Rep #: [id number] : 1950 F 74 From: Emil Coello MD PCP: Dr. Flako Tracy MD Status: RE G ER Study:Brain/Head without Contrast Date of Exa m: 06/02/24 Exam# [id number] Ordering Dr: Fernando Brambila DO EXAM: BRAIN/HEAD WITHOUT CONTRAST 06/02/2024 CLINICAL HISTORY: Trauma COMPARISON: 05/16/2024 TECHNIQUE: Noncontrast head CT with coronal and sagittal reformatted images FINDINGS: No intracranial hemorrhage, mass effect or calvarial fracture. The ventricles are unchanged in sizeand remain midline. Age commensurate chronic and involutional changes again noted. Visualized paranasalsinuses, mastoids and orbits appear within limits. Vascular calcifications again noted. CT/Brain/Head without Contrast IMPRESSION: No intracranial hemorrhage, mass effect or calvarial fracture. Reading Location: [facility] CC: Dr. Flako Tracy MD; Dr. Ian Brambila DO ~ Account Group Supervisor: Signed [facility]03-28-2025 Telephone encounter Note* Telephone Encounter - Chasity Isaacs - 06/01/2024 9:50 AM EDT Called patient to offer a sooner appointment she did take Tuesday06/04/24 but requesting additional pain medication Tramadol 1 tablet every 6 hrs be sent to [facility] in [place], patient also states she has been to the [facility] ER 3 times in the last [address] [facility]03-26-2025 Discharge summary [facility] Medical Records Department [address] [place] [address] Emergency Department Summary 05/30/24 MR#: [id number] Acct: [id number] Name: LAISHA WALKER Rep #:[id number] : 1950 74 From: Timothy James DO PCP: Dr. Flako Tracy MD Status:RE G ER Location: ED HPI History of Present Illness Chief Complaint: Chest Pain Informant: patient, spouse/S.O. and family Narrative Narrative: Patient is a 74-year-old female with past med history of hypertension hyperlipidemia atrial fibrillation status post pacemaker placement and Coumadin use. She was admitted to the hospital roughly 2 weeks ago secondary to upper GIbleed and had an EGD performed which showed a duodenal ulcer but no signs of active bleeding. She was advised to stop her Coumadin for a short time secondary to the blood. She states that she has also had a cough for the last week or so and was positive for influenza. She states she has left-sided chest discomfort that has been present for the last few days but statesthat it was worse this morning and with her recent admission and holding off on her Coumadinshe was concerned this could be related to potential pulmonary embolus and therefore comes in for evaluation. [facility] Medical History Pacemaker Obesity (BMI 30-39.9) Cancer of kidney Cirrhosis of liver not due to alcohol Goiter Depression History of renal carcinoma Stage 3a chronic kidney disease (CKD) Bilateral carotid artery stenosis (10/27/20) Complete heart block Thrombosed external hemorrhoid Osteoporosis Cancer Irregular heart beat DVT (deep venous thrombosis) TIA (transient ischemic attack) Rectal pain Chronic anemia Obesity PAF (paroxysmal atrial fibrillation) Asthma Diabetes Hemorrhoids Arthritis Hypertension VTE (venous thromboembolism) CVA (cerebral vascular accident) PAF (paroxysmal atrial fibrillation) HLD (hyperlipidemia) Home Medications ?Medication ?Instructions ?Recorded ?Last Taken ?Type acetaminophen 325 mg tablet 1,000 mg PO QHS 06/26/16 0 06/29/16 History 1000 mg loratadine 10 mg tablet 10 mg PO QHS 30 days 7 Unknown Rx docusate sodium 100 mg capsule 200 mg PO QHS 01/21/23 Unknown History (Colace) multivitamin (Daily Multi-Vitamin 1 tab PO DAILY 01/21 Unknown History tablet) hydrocortisone 2.5 % topical cream 1 applic FL QD-BID PRN hemorrhoids 02/04/23 Unknown History with perineal applicator (Anusol-HC) promethazine 12.5 mg tablet 12.5 mg PO Q6H PRN nausea and 02/04/23 Unknown History vomiting metoprolol tartrate 50 mg tablet 50 mg PO BID #180 tab s 02/24/24 Unknown Rx rosuvastatin 20 mg tablet 20 mg PO QHS #90 tabs Unknown Rx glipizide 10 mg tablet, extended 10 mg PO BID 04/18/24 Unknown History release 24 hr ondansetron 4 mg disintegrating 4 mg PO Q8H PRN PRN Na usea #10 tabs 05/14/24 Unknown Rx tablet warfarin 2.5 mg tablet 2.5 mg PO MOTUWETH 05/15/24 Unknown History Held on 05/17/24. Instructions: Resume on 05/21/24. warfarin 5 mg tablet 5 mg PO .FRSASU 05/15/24 Unk nown History Held on 05/17/24. Instructions: Resume on 05/20/24. pantoprazole 40 mg tablet,delayed 40 mg PO BID #60 tab s 05/17/24 Unknown Rx release sucralfate 1 gram tablet 1 g PO TIDAC #90 tabs Unknown Rx losartan 25 mg tablet 12.5 mg (1/2 x 25 mg) PO ORION LY #45 05/21/24 Unknown Rx tabs methocarbamol 500 mg tablet 500 mg PO 4X/DAY PRN Muscl e 05/30/24 Unknown Rx pain/spasm #40 tabs tramadol 50 mg tablet 50 mg PO Q6H PRN pain 3 days #12 05/30/24 Unknown Rx tabs Allergy/AdvReac Type Severity Reaction Status Date / Time simvastatin Allergy Severe Unknown Verified 05/15/24 16:48 etodolac AdvReac Intermediate GI upset Verified 05/15/24 16:48 gabapentin AdvReac Intermediate dizziness Verified 05/15/24 16:48 NSAIDS (Non-Steroidal AdvReac Intermediate GI upset Verified 05/15/24 16:48 Anti-Inflamma sulfamethoxazole AdvReac Intermediate Sulfa Verified 05/15/24 16:48 drugs GI upset sulfametrole AdvReac Intermediate GI upset Verified 05/15/24 16:48 valdecoxib (From Bextra) AdvReac Intermediate GI upset Verified 05/15/24 16:48 atorvastatin AdvReac Unknown unknown Verified 05/15/24 16:48 codeine AdvReac Unknown unknown Verified 05/15/24 16:48 guaifenesin (From Entex LA) AdvReac Unknown unknown Verified 05/15/24 16:48 hydrocodone AdvReac Unknown unknown Verified 05/15/24 16:48 naproxen (From Naprosyn) AdvReac Unknown unknown Verified 05/15/24 16:48 phenylephrine (From Entex LA) AdvReac Unknown unknown Verified 05/15/24 16:48 phenylpropanolamine (From AdvReac Unknown unknown Verified 05/15/24 16:48 Entex LA) pravastatin AdvReac Unknown unknown Verified 05/15/24 16:48 quinapril (From Accupril) AdvReac Unknown Unknown Verified 05/15/24 16:48 rofecoxib (From Vioxx) AdvReac Unknown unknown Verified 05/15/24 16:48 Sulfa (Sulfonamide AdvReac Unknown Diarrhea Verified 05/15/24 16:48 Antibiotics) tramadol AdvReac Unknown unknown Verified 05/15/24 16:48 celecoxib (From Celebrex) AdvReac Nausea/Vom/ Verified 05/15/24 16:48 Diarrhea fluoxetine HCl (From Prozac) AdvReac Other Verified 05/15/24 16:48 isosorbide AdvReac Other Verified 05/15/24 16:48 metformin AdvReac Nausea/Vom/ Verified 05/15/24 16:48 Diarrhea Family History Mother CVA (cerebral vascular accident) Diabetes Heart disease Father CVA (cerebral vascular accident) Diabetes Heart disease 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 Surgical History (Updated 05/22/24 @ 00:03 by Srinivas Nuñez) S/P placement of cardiac pacemaker History of incision and drainage H/O partial nephrectomy History of hysterectomy History of knee replacement History of cholecystectomy History of shoulder surgery History of appendectomy Social History household members: spouse Smoking Status: Never smoker alcohol intake: never substance use type: does not use ROS ROS ED Constitutional Constitutional ED: Denies chills or fever(s) Eyes Eyes: Denies change in vision ENT ENT ED: Denies sore throat Cardiovascular Cardiovascular: Reports chest pain; Denies palpitations or racing heartbeat Respiratory/Chest Respiratory/Chest: Reports cough; Denies dyspnea Gastrointestinal Gastrointestinal: Reports diarrhea; Denies abdominal pain, melena, nausea or vomiting Genitourinary Genitourinary ED: Denies dysuria Musculoskeletal Musculoskeletal: Reports myalgias Integumentary Denies rash Neurologic Neurologic: Denies headache(s) Hematologic/Lymphatic Hematologic/Lymphatic: Reports easy bleeding and easy bruising EXAM Physical Exam Const Vital Signs: 05/30/24 10:47 05/30/24 11:15 05/30/24 11:50 Temperature 98.6 F Temperature Source Temporal Pulse Rate 92 80 Respiratory Rate 18 17 Respiratory Effort Normal Blood Pressure 168/92 H 137/121 H Blood Pressure Mean 117 126 Pulse Ox 97 100 Oxygen Delivery Method Room Air Room Air Room Air 05/30/24 11:50 05/30/24 12:00 05/30/24 12:57 Temperature 98.9 F 98.1 F 98.1 F Temperature Source Oral Oral Oral Pulse Rate 84 74 81 Respiratory Rate 17 19 H 19 H Respiratory Effort Blood Pressure 137/121 H 174/77 H 174/77 H Blood Pressure Mean 126 109 109 Pulse Ox 100 95 98 Oxygen Delivery Method Room Air Room Air Room Air 05/30/24 13:59 Temperature Temperature Source Pulse Rate 78 Respiratory Rate 22 H Respiratory Effort Blood Pressure 153/58 H Blood Pressure Mean 89 Pulse Ox 94 Oxygen Delivery Method Room Air Positive well nourished and well developed General Appearance ED: well developed; Negative for pallor HEENT HEENT Narrative: No tongue or lip swelling no oral lesions no airway edema or compromise No secondary findings in the posterior pharynx to suggest infection Eyes PERRL and EOMs intact bilaterally General Eye ED: Negative for scleral icterus Neck supple and no JVD Neck Narrative: No nuchal rigidity or meningeal signs noted Chest Wall Chest Narrative: There is reproducible pain on palpation of the left chest wall without bony deformity or subcutaneous emphysema noted No overlying soft tissue changes to suggest trauma or infection Resp normal respiratory effort Resp Narrative: Breath sounds are diminished throughout with rhonchi in the bilateral bases but no nasal flaring retractions tachypnea or accessory muscle use Cardio regular rate and regular rhythm GI non-tender, non-distended and no masses GI Narrative: Soft nontender nondistended with hyperactive bowel sounds no voluntary guarding or rigidity or pulsatile mass Auscultation: hyperactive bowel sounds Palpation: soft Extremity normal to inspection Extremity Narrative: No asymmetric edema no pitting edema negative Homans' sign bilaterally Neuro oriented x3, CN's II-XII intact bilaterally and no sensory deficits noted Sensorium / Orientation: alert Motor Exam: strength 5/5 throughout Psych Mood & Affect: anxious Skin no rashes or lesions noted General Skin Exam: Negative for jaundice or pallor MDM MDM MDM Narrative Medical decision making narrative: Patient arrived to the ER in no acute distress. She had reducible chest wall pain indicating her pain is most likely musculoskeletal in nature. However because of her recent hospital admission and [facility] there is concern for potentialpulmonary embolus. Patient could also have an esophageal tear secondary to a recent EGD. There is potential for pneumonia or pneumothorax as well. There is also concernfor acute coronary syndrome. Therefore at this time I did elect to perform basic laboratory studies with a CTA of the chest. Lab revealed no clinically significant findings. Patient's initial and delta troponin were both 19 going against ACS. Her CTA revealed no acute lung pathology. After receiving tramadol and IV morphine she did have near resolution of her pain and vitals remained stable. Therefore at this time I do not feelthere is need for furtherworkup and she is otherwise safe for discharge with symptomatic care History & Record Review Discussion w/independent historian: Patient, Family and Significant other Lab Data Attestation: I reviewed the patient's lab results. Labs: Laboratory Results - last 24 hr 05/30/24 05/30/24 11:22 13:02 WBC 10.4 RBC 4.19 L Hgb 11.6 L Hct 35.2 L MCV 84.0 MCH 27.7 MCHC 33.0 RDW Std Deviation 43.2 RDW Coeff of Rukhsana 14.2 Plt Count 279 MPV 11.4 Immature Gran % (Auto) 0.400 Neut % (Auto) 73.2 H Lymph % (Auto) 17.4 L [place] % (Auto) 7.5 Eos % (Auto) 0.8 Baso % (Auto) 0.7 Absolute Neuts (auto) 7.6 Absolute Lymphs (auto) 1.81 Nucleated RBC % 0 PT 24.7 H INR 2.2 Sodium 138 Potassium 4.3 Chloride 104 Carbon Dioxide 22.4 Anion Gap 12 BUN 16 Creatinine 0.98 Estim Creat Clear Calc 53.89 Est GFR (MDRD) Non-Af 60 BUN/Creatinine Ratio 16.3 Glucose 164 H Calcium 9.7 Magnesium 1.8 Troponin T High Sens 19 H D Troponin T Hi Sens 2 Hr 19 H Radiography Diagnostic Testing: Clinical Impression(s) from Imaging Studies Chest CTA 05/30/24 11:03 IMPRESSION: 1. No evidence of pulmonary embolism. 2. No acute pneumonic process is seen. Reading Location: [address] Discharge Plan Triage Chief Complaint: Chest Pain Other Complaint: Shortness of Breath ED Provider: Timothy James Dx/Rx/DC Orders Clinical Impression: Nonspecific chest pain, HTN (hypertension), Current use of assisted anticoagulation, HLD (hyperlipidemia), GERD (gastroesophageal reflux disease) Instructions: ED Chest Pain, Uncertain Cause Prescriptions: New tramadol 50 mg tablet 50 mg PO Q6H PRN (Reason: pain) 3 Days Qty: 12 0RF methocarbamol 500 mg tablet 500 mg PO 4X/DAY PRN (Reason: Muscle pain/spasm) Qty: 40 0RF No Action promethazine 12.5 mg tablet 12.5 mg PO Q6H PRN (Reason: nausea and vomiting) hydrocortisone [Anusol-HC] 2.5 % cream with perineal applicator 1 applic FL QD-BID PRN (Reason: hemorrhoids) glipizide 10 mg tablet extended release 24hr 10 mg PO BID acetaminophen 325 MG tablet 1,000 mg PO QHS Patient Comments: pain control loratadine 10 MG tablet 10 mg PO QHS 30 Days 0RF multivitamin [Daily Multi-Vitamin] Tablet 1 tab PO DAILY docusate sodium [Colace] 100 mg capsule 200 mg PO QHS ondansetron 4 mg tablet,disintegrating 4 mg PO Q8H PRN PRN (Reason: Nausea) Qty: 10 0RF warfarin 5 mg tablet 5 mg PO .FRSASU Protocol: Dose Management Condition: Tuesday Dose/Route: 5 mg Instruction: 1 x 5 mg tablet Condition: Tuesday Dose/Route: 2.5 mg Instruction: 1 x 2.5 mg tablet Condition: Tuesday Dose/Route: 2.5 mg Instruction: 1 x 2.5 mg tablet Condition: Tuesday Dose/Route: 2.5 mg Instruction: 1 x 2.5 mg tablet Condition: Dose/Route: 2.5 mg Instruction: 1 x 2.5 mg tablet Condition: Tuesday Dose/Route: 5 mg Instruction: 1 x 5 mg tablet Condition: Tuesday Dose/Route: 5 mg Instruction: 1 x 5 mg tablet Protocol Text: Adjustment Start Date: 05/24/24 INR Value: 1.5 INR Date: 05/24/24 Recheck Date: 05/31/24 warfarin 2.5 mg tablet 2.5 mg PO MOTUWETH Protocol: Dose Management Condition: Tuesday Dose/Route: 5 mg Instruction: 1 x 5 mg tablet Condition: Tuesday Dose/Route: 2.5 mg Instruction: 1 x 2.5 mg tablet Condition: Tuesday Dose/Route: 2.5 mg Instruction: 1 x 2.5 mg tablet Condition: Tuesday Dose/Route: 2.5 mg Instruction: 1 x 2.5 mg tablet Condition: Dose/Route: 2.5 mg Instruction: 1 x 2.5 mg tablet Condition: Tuesday Dose/Route: 5 mg Instruction: 1 x 5 mg tablet Condition: Tuesday Dose/Route: 5 mg Instruction: 1 x 5 mg tablet Protocol Text: Adjustment Start Date: 05/24/24 INR Value: 1.5 INR Date: 05/24/24 Recheck Date: 05/31/24 Rx Instructions: 2.5 mg orally 1 tablet (2.5 mg) on Tuesday, Tuesday, Tuesday, and ; 2 tablets together to = 5mg on Tuesday, Tuesday and Tuesday at bedtdime; dose changes often, please give extra tablets sucralfate 1 gram Tablet 1 g PO TIDAC Qty: 90 0RF pantoprazole 40 mg tablet,delayed release (DR/EC) 40 mg PO BID Qty: 60 0RF metoprolol tartrate 50 mg tablet 50 mg PO BID Qty: 180 3RF rosuvastatin 20 mg tablet 20 mg PO QHS Qty: 90 3RF losartan 25 mg tablet 12.5 mg PO DAILY Qty: 45 3RF Rx Instructions: Hold for SBP less than 130 mmHg Primary Care Provider: Flako Tracy Referrals: Flako Tracy MD [Primary Care Provider] - Activity Restrictions/Additional Instructions: Your workup today showed no sign of heart attack or blood clot or pneumonia indicating your chest pain is most likely musculoskeletal. Take the prescribed medication as directed to help control symptoms and you may use plzj-geg-drjuasacuqstpfpdan such as IcyHot Bengay or lidocaine patches to help as well. Return to the ER should you have any further concerns Print Language: Hungarian Disposition Disposition: Home, Self Care What to do if you have Problems For any increased pain, shortness of breath, bleeding, nausea or vomiting, chestpain, or any unexpected problems, contact your Primary Care Provider. Call [facility] ([phone]) or report tothe closest Emergency Room. Call 911 if necessary. 05/30/24 1412 Cosigner Signature (if applicable): CC: Dr. Flako Tracy MD ~ Signed [facility]03-26-2025 Discharge summary Author Timothy James [facility] Note Date/Time May 30, 2024 2:1 2pm [facility] Medical Records Department [address] [place] [address] Emergency Department Summary 05/30/24 MR#: [id number] Acct: [id number] Name: LAIHSA WALKER Rep #:[id number] : 1950 74 From: Timothy James DO PCP: Dr. Flako Tracy MD Status:RE G ER Location: ED HPI History of Present Illness Chief Complaint: Chest Pain Informant: patient, spouse/S.O. and family Narrative Narrative: Patient is a 74-year-old female with past med history of hypertension hyperlipidemia atrial fibrillation status post pacemaker placement and Coumadin use. She was admitted to the hospital roughly 2 weeks ago secondary to upper GIbleed and had an EGD performed which showed a duodenal ulcer but no signs of active bleeding. She was advised to stop her Coumadin for a short time secondary to the blood. She states that she has also had a cough for the last week or so and was positive for influenza. She states she has left-sided chest discomfort that has been present for the last few days but states that it was worse this morning and with her recent admission and holding off on her Coumadinshe was concerned this could be related to potential pulmonary embolus and therefore comes in for evaluation. [facility] Medical History Pacemaker Obesity (BMI 30-39.9) Cancer of kidney Cirrhosis of liver not due to alcohol Goiter Depression History of renal carcinoma Stage 3a chronic kidney disease (CKD) Bilateral carotid artery stenosis (10/27/20) Complete heart block Thrombosed external hemorrhoid Osteoporosis Cancer Irregular heart beat DVT (deep venous thrombosis) TIA (transient ischemic attack) Rectal pain Chronic anemia Obesity PAF (paroxysmal atrial fibrillation) Asthma Diabetes Hemorrhoids Arthritis Hypertension VTE (venous thromboembolism) CVA (cerebral vascular accident) PAF (paroxysmal atrial fibrillation) HLD (hyperlipidemia) Home Medications ?Medication ?Instructions ?Recorded ?Last Taken ?Type acetaminophen 325 mg tablet 1,000 mg PO QHS 06/26/16 0 06/29/16 History 1000 mg loratadine 10 mg tablet 10 mg PO QHS 30 days 7 Unknown Rx docusate sodium 100 mg capsule 200 mg PO QHS 01/21/23 Unknown History (Colace) multivitamin (Daily Multi-Vitamin 1 tab PO DAILY 01/21 Unknown History tablet) hydrocortisone 2.5 % topical cream 1 applic FL QD-BID PRN hemorrhoids 02/04/23 Unknown History with perineal applicator (Anusol-HC) promethazine 12.5 mg tablet 12.5 mg PO Q6H PRN nausea and 02/04/23 Unknown History vomiting metoprolol tartrate 50 mg tablet 50 mg PO BID #180 tab s 02/24/24 Unknown Rx rosuvastatin 20 mg tablet 20 mg PO QHS #90 tabs Unknown Rx glipizide 10 mg tablet, extended 10 mg PO BID 04/18/24 Unknown History release 24 hr ondansetron 4 mg disintegrating 4 mg PO Q8H PRN PRN Na usea #10 tabs 05/14/24 Unknown Rx tablet warfarin 2.5 mg tablet 2.5 mg PO MOTUWETH 05/15/24 Unknown History Held on 05/17/24. Instructions: Resume on 05/21/24. warfarin 5 mg tablet 5 mg PO .FRSASU 05/15/24 Unk nown History Held on 05/17/24. Instructions: Resume on 05/20/24. pantoprazole 40 mg tablet,delayed 40 mg PO BID #60 tab s 05/17/24 Unknown Rx release sucralfate 1 gram tablet 1 g PO TIDAC #90 tabs Unknown Rx losartan 25 mg tablet 12.5 mg (1/2 x 25 mg) PO ORION LY #45 05/21/24 Unknown Rx tabs methocarbamol 500 mg tablet 500 mg PO 4X/DAY PRN Muscl e 05/30/24 Unknown Rx pain/spasm #40 tabs tramadol 50 mg tablet 50 mg PO Q6H PRN pain 3 days #12 05/30/24 Unknown Rx tabs Allergy/AdvReac Type Severity Reaction Status Date / Time simvastatin Allergy Severe Unknown Verified 05/15/24 16:48 etodolac AdvReac Intermediate GI upset Verified 05/15/24 16:48 gabapentin AdvReac Intermediate dizziness Verified 05/15/24 16:48 NSAIDS (Non-Steroidal AdvReac Intermediate GI upset Verified 05/15/24 16:48 Anti-Inflamma sulfamethoxazole AdvReac Intermediate Sulfa Verified 05/15/24 16:48 drugs GI upset sulfametrole AdvReac Intermediate GI upset Verified 05/15/24 16:48 valdecoxib (From Bextra) AdvReac Intermediate GI upset Verified 05/15/24 16:48 atorvastatin AdvReac Unknown unknown Verified 05/15/24 16:48 codeine AdvReac Unknown unknown Verified 05/15/24 16:48 guaifenesin (From Entex LA) AdvReac Unknown unknown Verified 05/15/24 16:48 hydrocodone AdvReac Unknown unknown Verified 05/15/24 16:48 naproxen (From Naprosyn) AdvReac Unknown unknown Verified 05/15/24 16:48 phenylephrine (From Entex LA) AdvReac Unknown unknown Verified 05/15/24 16:48 phenylpropanolamine (From AdvReac Unknown unknown Verified 05/15/24 16:48 Entex LA) pravastatin AdvReac Unknown unknown Verified 05/15/24 16:48 quinapril (From Accupril) AdvReac Unknown Unknown Verified 05/15/24 16:48 rofecoxib (From Vioxx) AdvReac Unknown unknown Verified 05/15/24 16:48 Sulfa (Sulfonamide AdvReac Unknown Diarrhea Verified 05/15/24 16:48 Antibiotics) tramadol AdvReac Unknown unknown Verified 05/15/24 16:48 celecoxib (From Celebrex) AdvReac Nausea/Vom/ Verified 05/15/24 16:48 Diarrhea fluoxetine HCl (From Prozac) AdvReac Other Verified 05/15/24 16:48 isosorbide AdvReac Other Verified 05/15/24 16:48 metformin AdvReac Nausea/Vom/ Verified 05/15/24 16:48 Diarrhea Family History Mother CVA (cerebral vascular accident) Diabetes Heart disease Father CVA (cerebral vascular accident) Diabetes Heart disease Other USP (current) use of 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 Surgical History (Updated 05/22/24 @ 00:03 by Srinivas Nuñez) S/P placement of cardiac pacemaker History of incision and drainage H/O partial nephrectomy History of hysterectomy History of knee replacement History of cholecystectomy History of shoulder surgery History of appendectomy Social History household members: spouse Smoking Status: Never smoker alcohol intake: never substance use type: does not use ROS ROS ED Constitutional Constitutional ED: Denies chills or fever(s) Eyes Eyes: Denies change in vision ENT ENT ED: Denies sore throat Cardiovascular Cardiovascular: Reports chest pain; Denies palpitations or racing heartbeat Respiratory/Chest Respiratory/Chest: Reports cough; Denies dyspnea Gastrointestinal Gastrointestinal: Reports diarrhea; Denies abdominal pain, melena, nausea or vomiting Genitourinary Genitourinary ED: Denies dysuria Musculoskeletal Musculoskeletal: Reports myalgias Integumentary Denies rash Neurologic Neurologic: Denies headache(s) Hematologic/Lymphatic Hematologic/Lymphatic: Reports easy bleeding and easy bruising EXAM Physical Exam Const Vital Signs: 05/30/24 10:47 05/30/24 11:15 05/30/24 11:50 Temperature 98.6 F Temperature Source Temporal Pulse Rate 92 80 Respiratory Rate 18 17 Respiratory Effort Normal Blood Pressure 168/92 H 137/121 H Blood Pressure Mean 117 126 Pulse Ox 97 100 Oxygen Delivery Method Room Air Room Air Room Air 05/30/24 11:50 05/30/24 12:00 05/30/24 12:57 Temperature 98.9 F 98.1 F 98.1 F Temperature Source Oral Oral Oral Pulse Rate 84 74 81 Respiratory Rate 17 19 H 19 H Respiratory Effort Blood Pressure 137/121 H 174/77 H 174/77 H Blood Pressure Mean 126 109 109 Pulse Ox 100 95 98 Oxygen Delivery Method Room Air Room Air Room Air 05/30/24 13:59 Temperature Temperature Source Pulse Rate 78 Respiratory Rate 22 H Respiratory Effort Blood Pressure 153/58 H Blood Pressure Mean 89 Pulse Ox 94 Oxygen Delivery Method Room Air Positive well nourished and well developed General Appearance ED: well developed; Negative for pallor HEENT HEENT Narrative: No tongue or lip swelling no oral lesions no airway edema or compromise No secondary findings in the posterior pharynx to suggest infection Eyes PERRL and EOMs intact bilaterally General Eye ED: Negative for scleral icterus Neck supple and no JVD Neck Narrative: No nuchal rigidity or meningeal signs noted Chest Wall Chest Narrative: There is reproducible pain on palpation of the left chest wall without bony deformity or subcutaneous emphysema noted No overlying soft tissue changes to suggest trauma or infection Resp normal respiratory effort Resp Narrative: Breath sounds are diminished throughout with rhonchi in the bilateral bases but no nasal flaring retractions tachypnea or accessory muscle use Cardio regular rate and regular rhythm GI non-tender, non-distended and no masses GI Narrative: Soft nontender nondistended with hyperactive bowel sounds no voluntary guarding or rigidity or pulsatile mass Auscultation: hyperactive bowel sounds Palpation: soft Extremity normal to inspection Extremity Narrative: No asymmetric edema no pitting edema negative Homans' sign bilaterally Neuro oriented x3, CN's II-XII intact bilaterally and no sensory deficits noted Sensorium / Orientation: alert Motor Exam: strength 5/5 throughout Psych Mood & Affect: anxious Skin no rashes or lesions noted General Skin Exam: Negative for jaundice or pallor MDM MDM MDM Narrative Medical decision making narrative: Patient arrived to the ER in no acute distress. She had reducible chest wall pain indicating her pain is most likely musculoskeletal in nature. However because of her recent hospital admission and the fact she had to come off of [facility] because of a upper GI bleed there is concern for potential pulmonary embolus. Patient could also have an esophageal tear secondary to a recent EGD. There is potential for pneumonia or pneumothorax as well. There is also concernfor acute coronary syndrome. Therefore at this time I did elect to perform basic laboratory studies with a CTA of the chest. Lab revealed no clinically significant findings. Patient's initial and delta troponin were both 19 going against ACS. Her CTA revealed no acute lung pathology. After receiving tramadol and IV morphine she did have near resolution of her pain and vitals remained stable. Therefore at this time I do not feel there is need for furtherworkup and she is otherwise safe for discharge with symptomatic care History & Record Review Discussion w/independent historian: Patient, Family and Significant other Lab Data Attestation: I reviewed the patient's lab results. Labs: Laboratory Results - last 24 hr 05/30/24 05/30/24 11:22 13:02 WBC 10.4 RBC 4.19 L Hgb 11.6 L Hct 35.2 L MCV 84.0 MCH 27.7 MCHC 33.0 RDW Std Deviation 43.2 RDW Coeff of Rukhsana 14.2 Plt Count 279 MPV 11.4 Immature Gran % (Auto) 0.400 Neut % (Auto) 73.2 H Lymph % (Auto) 17.4 L [place] % (Auto) 7.5 Eos % (Auto) 0.8 Baso % (Auto) 0.7 Absolute Neuts (auto) 7.6 Absolute Lymphs (auto) 1.81 Nucleated RBC % 0 PT 24.7 H INR 2.2 Sodium 138 Potassium 4.3 Chloride 104 Carbon Dioxide 22.4 Anion Gap 12 BUN 16 Creatinine 0.98 Estim Creat Clear Calc 53.89 Est GFR (MDRD) Non-Af 60 BUN/Creatinine Ratio 16.3 Glucose 164 H Calcium 9.7 Magnesium 1.8 Troponin T High Sens 19 H D Troponin T Hi Sens 2 Hr 19 H Radiography Diagnostic Testing: Clinical Impression(s) from Imaging Studies Chest CTA 05/30/24 11:03 IMPRESSION: 1. No evidence of pulmonary embolism. 2. No acute pneumonic process is seen. 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, HLD (hyperlipidemia), GERD (gastroesophageal reflux disease) Instructions: ED Chest Pain, Uncertain Cause Prescriptions: New tramadol 50 mg tablet 50 mg PO Q6H PRN (Reason: pain) 3 Days Qty: 12 0RF methocarbamol 500 mg tablet 500 mg PO 4X/DAY PRN (Reason: Muscle pain/spasm) Qty: 40 0RF No Action promethazine 12.5 mg tablet 12.5 mg PO Q6H PRN (Reason: nausea and vomiting) hydrocortisone [Anusol-HC] 2.5 % cream with perineal applicator 1 applic FL QD-BID PRN (Reason: hemorrhoids) glipizide 10 mg tablet extended release 24hr 10 mg PO BID acetaminophen 325 MG tablet 1,000 mg PO QHS Patient Comments: pain control loratadine 10 MG tablet 10 mg PO QHS 30 Days 0RF multivitamin [Daily Multi-Vitamin] Tablet 1 tab PO DAILY docusate sodium [Colace] 100 mg capsule 200 mg PO QHS ondansetron 4 mg tablet,disintegrating 4 mg PO Q8H PRN PRN (Reason: Nausea) Qty: 10 0RF warfarin 5 mg tablet 5 mg PO .LOVE Protocol: Dose Management Condition: Tuesday Dose/Route: 5 mg Instruction: 1 x 5 mg tablet Condition: Tuesday Dose/Route: 2.5 mg Instruction: 1 x 2.5 mg tablet Condition: Tuesday Dose/Route: 2.5 mg Instruction: 1 x 2.5 mg tablet Condition: Tuesday Dose/Route: 2.5 mg Instruction: 1 x 2.5 mg tablet Condition: Dose/Route: 2.5 mg Instruction: 1 x 2.5 mg tablet Condition: Tuesday Dose/Route: 5 mg Instruction: 1 x 5 mg tablet Condition: Tuesday Dose/Route: 5 mg Instruction: 1 x 5 mg tablet Protocol Text: Adjustment Start Date: 05/24/24 INR Value: 1.5 INR Date: 05/24/24 Recheck Date: 05/31/24 warfarin 2.5 mg tablet 2.5 mg PO JULIETTE Protocol: Dose Management Condition: Tuesday Dose/Route: 5 mg Instruction: 1 x 5 mg tablet Condition: Tuesday Dose/Route: 2.5 mg Instruction: 1 x 2.5 mg tablet Condition: Tuesday Dose/Route: 2.5 mg Instruction: 1 x 2.5 mg tablet Condition: Tuesday Dose/Route: 2.5 mg Instruction: 1 x 2.5 mg tablet Condition: Dose/Route: 2.5 mg Instruction: 1 x 2.5 mg tablet Condition: Tuesday Dose/Route: 5 mg Instruction: 1 x 5 mg tablet Condition: Tuesday Dose/Route: 5 mg Instruction: 1 x 5 mg tablet Protocol Text: Adjustment Start Date: 05/24/24 INR Value: 1.5 INR Date: 05/24/24 Recheck Date: 05/31/24 Rx Instructions: 2.5 mg orally 1 tablet (2.5 mg) on Tuesday, Tuesday, Tuesday, and ; 2 tablets together to = 5mg on Tuesday, Tuesday and Tuesday at bedtdime; dose changes often, please give extra tablets sucralfate 1 gram Tablet 1 g PO TIDAC Qty: 90 0RF pantoprazole 40 mg tablet,delayed release (DR/EC) 40 mg PO BID Qty: 60 0RF metoprolol tartrate 50 mg tablet 50 mg PO BID Qty: 180 3RF rosuvastatin 20 mg tablet 20 mg PO QHS Qty: 90 3RF losartan 25 mg tablet 12.5 mg PO DAILY Qty: 45 3RF Rx Instructions: Hold for SBP less than 130 mmHg Primary Care Provider: Flako Tracy Referrals: Flako Tracy MD [Primary Care Provider] - Activity Restrictions/Additional Instructions: Your workup today showed no sign of heart attack or blood clot or pneumonia indicating your chest pain is most likely musculoskeletal. Take the prescribed medication as directed to help control symptoms and you may use ptlp-fyz-sctrbgwsiddgsrgqus such as IcyHot Bengay or lidocaine patches to help as well. Return to the ER should you have any further concerns Print Language: Hungarian Disposition Disposition: Home, Self Care What to do if you have Problems For any increased pain, shortness of breath, bleeding, nausea or vomiting, chestpain, or any unexpected problems, contact your Primary Care Provider. Call [facility] ([phone]) or report to the closest Emergency Room. Call 911 if necessary. 05/30/24 1412 <Electronically signed by Timothy James DO> Cosigner Signature (if applicable): CC: Dr. Flako Tracy MD ~ Signed [facility] Work Phone: [phone] Radiology Diagnostic study note [facility] [address] [place] [address] CTA Chest W/WO Contrast MR#: [id number] Acct: [id number] Name: LAISHA WALKER Rep #: [id number] : 1950 F 74 From: Rashid Antonio MD PCP: Dr. Flako Tracy MD Status: RE G ER Study:CTA Chest W/WO Contrast Date of Exam: 05/30/24 Exam# [id number] Ordering Dr: Ligia James DO PROCEDURE: CTA CHEST W/WO CONTRAST 05/30/2024 REASON FOR EXAM: CHEST PAIN / ? PE TECHNIQUE: Contrasted CT pulmonary angiogram.. CONTRAST: Isovue 370 VOLUME: 100mL. One or more dose reduction techniques were used (e.g., Automated exposure control, adjustment of the mA and/or kV according to patient size, use of iterative reconstruction technique). RADIATION DOSE SUMMARY: CTDlvol: 20.68 mGy DLP: 428.96 mGycm COMPARISON: Chest CT of 05/16/2024. FINDINGS: Prominent splenic artery calcification is seen. The visualized upper abdomen shows no acute process. Moderate aortic calcification is seen. No aneurysmal dilation is noted areas, in visualized areas. No pleural effusion is seen. No pneumothorax is evident. No evidence of pulmonary embolism. No pulmonary edema is seen. No focal infiltrate is identified. Htny-cc-tlljwiwk degenerative changes of the visualized spine are seen. CT/CTA Chest W/WO Contrast IMPRESSION: 1. No evidence of pulmonary embolism. 2. No acute pneumonic process is seen. Reading Location: [address] CC: Dr. Flako Tracy MD; Timothy James DO ~ Account Group Supervisor: Signed [facility]03-18-2025 Instructions* Patient Instructions* Otoniel King APRN.[facility] - 05/22/2024 1:40 PM EDT We discussed your recent hospitalization and follow-up care: - You were hospitalized at [facility] from May 15 to May 17 for two episodes of black stools and dizziness. During your stay: - You were diagnosed with a duodenal ulcer, GI bleed, influenza A, and a sinus infection. - You received IV Protonix, IV fluids, and antibiotics. - Your Coumadin was held during admission and restarted on Tuesday, May 20, per the hospital's instructions. - A carotid ultrasound showed 50-69% occlusion on the right side and complete occlusion on the leftside, which may contribute to dizziness. - A CT scan of your head showed no bleeding, and a chest CT was normal except for sinus inflammation. We discussed your medications: - Continue taking Protonix 40 mg twice daily to reduce stomach acid and promote healing of your ulcer. I have sent a refill to your preferred pharmacy ([facility]). - Continue taking Carafate as prescribed, one hour before meals. Be aware that Carafate may interact with Coumadin, so your INR will need to be monitored closely. - Restart Coumadin as instructed. Your next INR check is scheduled for . Please ensure thisis completed to monitor your blood-thinning levels. We discussed your diet and lifestyle: - Avoid spicy, acidic, or citrus-based foods, as well as tomato-based products, as these can increase stomach acid and irritate your ulcer. - Gradually reintroduce normal foods, starting with soft, bland options. Avoid overeating or eatinglarge meals. - Stay hydrated and avoid alcohol, as it can worsen your symptoms. We discussed your symptoms: - You reported no further black stools since discharge, which is a good sign. However, you mentioned yellow stools. This may be related to your liver or gallbladder history, including fatty liver andcirrhosis. Your c d still operator will evaluate this further. - You continue to experience fatigue, nausea, and a persistent cough. The cough may be related to reflux or residual effects of influenza. Monitor these symptoms, and let us know if they worsen. We discussed follow-up care: - Continue follow-up with your c d still operator to manage your duodenal ulcer and evaluate your liver and GI symptoms. If you are unsure of your appointment details, please contact their office. - Continue follow-up with your cardiology team for atrial fibrillation and carotid artery disease. Ensure your blood pressure remains well-controlled at home (target around 120/70). If you notice anysignificant changes in your blood pressure or symptoms of dizziness, please let us know. - Your next appointment with Georgie is scheduled for August. If you have any concerns before then, please contact our office. Please continue monitoring your symptoms and follow the care plan outlined above. If you experienceany new or worsening symptoms, such as black or red stools, severe abdominal pain, or signs of a stroke (e.g., sudden weakness, slurred speech, or visi, on changes), seek immediate medical attention. documented in this encounterSt. [facility] History of Present illness Narrative* Otoniel King APRN.CNP - 05/22/2024 1:20 PM EDT TRANSITION CARE MANAGEMENT (TCM) INITIAL CONTACT Divisional Merchandising Manager Outreach Provider Action/FYI: Pt reports [facility] instructed her to start coumadin on Tuesday05/20/24. Initial contact with patient post discharge, spoke to patient. Patient identified by name and . TRANSITION CARE MANAGEMENT INITIAL OUTREACH DOCUMENTATION: 05/18/2024 Date of Outreach: Outreach Attempt 1: Contact Made Date of Discharge 05/17/2024 SUMMARY: -Pt discharged from [facility] on 05/17/24. -Admitted for: Duodenal ulcer. GI bleed. Flu A. Sinus infection. Do you have a hospital follow up appointment with your PCP? Appointment on 05/22/24 with Otoniel King. Yes. Remind patient of appointment date, time, and location. If not within 14 calendar days of discharge - please reschedule accordingly. MEDICATIONS: Many patients have questions or concerns about their medications once they are home. Were you prescribed any new medications? If yes, what are those medications? Carafate. Protonix. Were you told to hold any medications? If yes, what are those medications? Coumadin on Hold. Has to check INR before restarts. States she has a standing order at [facility] for heart group. Were any of your medications discontinued? No Do you have any questions about getting or taking your medications? No Your discharge instructions/After visit Summary (AVS) are important in guiding you through the recovery process. Is there anything I might help you understand? No Do you have all the necessary equipment and supplies at home? Yes Medical records from recent hospitalization: Care Everywhere Chief Complaint Patient presents with: Hospital F/U: [facility] duodenal ulcer. Flu HPI Laisha Walker is a 74 year old female who presents here today for Hospital Discharge Follow up. Patient Overview: Patient is here for a hospital follow-up. She went to [facility] on May 15 for two episodes of dark stool. Two days prior, she was at [facility] and was diagnosed with influenza A. She is on Coumadin for atrial fibrillation and had a few episodes of dizziness. During her hospital stay, she was given IV Protonix and IV fluids, and her Coumadin was held. Gastroenterology was consulted, and she was admitted for observation to the progressive care unit. Her cardiology group also evaluated her and ordered an ultrasound of her carotid arteries due to dizziness. 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 Referred to vascular surgery. - Discharge Diagnoses (May 17): - Duodenal ulcer - GI bleed - Flu A - Sinus infection - Cirrhosis of the liver - Kidney function and Hgb Hct stable on discharge Items for Follow-Up Today: - Restart Coumadin on Tuesday, May 20 per [facility]. They have been following her INR. Umm is a 74-year-old female with a history of atrial fibrillation on Coumadin, presenting for a follow-up after a recent hospitalization for melena. Umm was admitted to [facility] on May 15 after experiencing two episodes of melena. She had been seen at the same hospital two days prior and was diagnosed with influenza. During her second visit, her hemoglobin levels were stable compared to her May 13 labs. She was givenIV Protonix and IV fluids, and her Coumadin was held during admission. Gastroenterology was consulted, and she was admitted to the progressive care unit for observation. Her cardiology group also evaluated her and ordered a carotid ultrasound due to episodes of dizziness, which revealed 50-69% occlu jimbo. She was discharged in stable condition on May 17 with diagnoses of duodenal ulcerative colitis, GI bleed, influenza A, and sinus infection. She was instructed to restart Coumadin on May 20. Since discharge, she denies any further episodes of melena but notes her stools are now yellow in color. She reports ongoing fatigue, nausea, and a general sense of not feeling well, as well as a persistent cough described as feeling like little feathers tickling her throat. She is currently taking Protonix 40 mg BID and Carafate, both of which were started during her hospital stay. She has a follow-up appointment with a c d still operator but does not recall the name. She also has a scheduled INR check on . She monitors her blood pressure at home, which typically ranges from 120/70mmHg to 140/70 mmHg. Past medical history, appointments, medications, allergies reviewed. EXAM: BP 124/77 (BP Position: Sitting) Pulse 72 Resp 16 Wt 92.1 kg (203 lb) SpO2 96% BMI 35.97 kg/m General Appearance: Well appearing, alert, in no acute distress, well-hydrated, well nourished. andOverweight. Lungs: Lungs clear to auscultation. No wheezing, rhonchi, rales.. Heart: RRR without murmur, gallop, or rubs. No ectopy. Abdomen: Normal abdominal exam, Abdomen soft, non-tender. Bowel sounds normal. No masses, organomegaly. 1. UGIB (upper gastrointestinal bleed) (K92.2) Melanotic stools (K92.1) Recent hospitalization for two episodes of melena; diagnosed with duodenal ulcer. Hemoglobin levelsremained stable during hospitalization. No further episodes of melena since discharge. - Continue Protonix 40 mg BID; refills sent to [facility]. - Continue Carafate as prescribed; monitor INR closely due to potential interaction with Coumadin. - Follow-up with c d still operator for further evaluation and management. 2. Influenza A (J10.1) Diagnosed during initial ER visit; resolved with supportive care. 3. Other cirrhosis of liver (HCC) (K74.69) History of cirrhosis; no acute issues noted during recent hospitalization. - Continue follow-up with c d still operator. 4. Gastroesophageal reflux disease without esophagitis (K21.9) Experiencing symptoms of reflux; currently on Protonix and Carafate. - Continue Protonix 40 mg BID. - Avoid spicy and acidic foods; reintroduce normal foods slowly. 5. Atrial fibrillation, unspecified type (HCC) (I48.91) On Coumadin therapy; held during hospitalization due to UGIB. Coumadin restarted on May 20. - Monitor INR closely; next check scheduled for . - Follow-up with cardiology as scheduled. 6. Stage 3a chronic kidney disease (HCC) (N18.31) Renal function stable; no acute issues noted during recent hospitalization. 7. Bilateral carotid artery stenosis (I65.23) Ultrasound revealed 50-69% occlusion on the right side and complete occlusion on the left side; contributing to episodes of dizziness. - Maintain well-controlled blood pressure; continue home monitoring. - Follow-up with vascular surgery as scheduled for further management. RTO in 3 month, sooner if needed This note was partly generated using Octmamion voice recognition dictation and may contain some misspelled or inaccurate words missed on review. The patient consented to the use of Vgift software for draft documentation of the visit consistent with [facility] Notice of Privacy Practices. documented in this encounterSt. Rita'S [facility]03-18-2025 NoteHNO ID: [id number] Author: OTONIEL KING APRN.CNP Service: ? Author Type: Nurse Practitioner Type: Progress Notes Filed: 05/22/2024 13:48 Note Text: TRANSITION CARE MANAGEMENT (TCM) INITIAL CONTACT Divisional Merchandising Manager Outreach Provider Action/FYI: Pt reports [facility] instructed her to start coumadin on Tuesday05/20/24. Initial contact with patient post discharge, spoke to patient. Patient identified by name and . TRANSITION CARE MANAGEMENT INITIAL OUTREACH DOCUMENTATION: 05/18/2024 Date of Outreach: Outreach Attempt 1: Contact Made Date of Discharge 05/17/2024 SUMMARY: -Pt discharged from [facility] on 05/17/24. -Admitted for: Duodenal ulcer. GI bleed. Flu A. Sinus infection. Do you have a hospital follow up appointment with your PCP? Appointment on 05/22/24 with Otoniel King. Yes. Remind patient of appointment date, time, and location. If not within 14 calendar days of discharge - please reschedule accordingly. MEDICATIONS: Many patients have questions or concerns about their medications once they are home. Were you prescribed any new medications? If yes, what are those medications? Carafate. Protonix. Were you told to hold any medications? If yes, what are those medications? Coumadin on Hold. Has to check INR before restarts. States she has a standing order at [facility] for heart group. Were any of your medications discontinued? No Do you have any questions about getting or taking your medications? No Your discharge instructions/After visit Summary (AVS) are important in guiding you through the recovery process. Is there anything I might help you understand? No Do you have all the necessary equipment and supplies at home? Yes Medical records from recent hospitalization: Care Everywhere Chief Complaint Patient presents with: Hospital F/U: [facility] duodenal ulcer. Flu HPI Laisha Walker is a 74 year old female who presents here today for Hospital Discharge Follow up. Patient Overview: Patient is here for a hospital follow-up. She went to [facility] on May 15 for two episodes of dark stool. Two days prior, she was at [facility] and was diagnosed with influenza A. She is on Coumadin for atrial fibrillation and had a few episodes of dizziness. During her hospital stay, she was given IV Protonix and IV fluids, and her Coumadin was held. Gastroenterology was consulted, and she was admitted for observation to the progressive care unit. Her cardiology group also evaluated her and ordered an ultrasound of her carotid arteries due to dizziness. 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 Referred to vascular surgery. - Discharge Diagnoses (May 17): - Duodenal ulcer - GI bleed - Flu A - Sinus infection - Cirrhosis of the liver - Kidney function and Hgb Hct stable on discharge Items for Follow-Up Today: - Restart Coumadin on May 20 per [facility]. They have been following her INR. Umm is a 74-year-old female with a history of atrial fibrillation on Coumadin, presenting for a follow-up after a recent hospitalization for melena. Umm was admitted to [facility] on May 15 after experiencing two episodes of melena. She had been seen at the same hospital two days prior and was diagnosed with influenza. During her second visit, her hemoglobin levels were stable compared to her May 13 labs. She was given IV Protonix and IV fluids, and her Coumadin was held during admission. Gastroenterology was consulted, and she was admitted to the progressive care unit for observation. Her cardiology group also evaluated her and ordered a carotid ultrasound due to episodes of dizziness, which revealed 50-69% occlusion. She was discharged in stable condition on May 17 with diagnoses of duodenal ulcerative colitis, GI bleed, influenza A, and sinus infection. She was instructed to restart Coumadin on May 20. Since discharge, she denies any further episodes of melena but notes her stools are now yellow in color. She reports ongoing fatigue, nausea, and a general sense of not feeling well, as well as a persistent cough described as feeling like little feathers tickling her throat. She is currently taking Protonix 40 mg BID and Carafate, both of which were started during her hospital stay. She has a follow-up appointment with a c d still operator but does not recall the name. She also has a scheduled INR check on . She monitors her blood pressure at home, which typically ranges from 120/70 mmHg to 140/70 mmHg. Past medical history, appointments, medications, allergies reviewed. EXAM: BP 124/77 (BP Position: Sitting) Pulse 72 Resp 16 Wt 92.1 kg (203 lb) SpO2 96% BMI 35.97 kg/m? General Appearance: Well appearing, alert, in no acute distress, well-hydrated, well nourished. and Overweight. Lung (more content not included)...[facility]03-14-2025 Telephone encounter Note* Telephone Encounter - Areli Stanton LPN - 05/18/2024 11:12 AM EDT Patient notified. Verbalized understanding. [facility]03-14-2025 Miscellaneous Notes* Telephone Encounter - Areli Stanton LPN - 05/18/2024 11:12 AM EDT Patient notified. Verbalized understanding. * Telephone Encounter - Otoniel King APRN.CNP - 05/18/2024 10:29 AM EDT Noted. Since [facility] is managing her Coumadin, INR, she should reach out to them to asktheir guidance. Otoniel King APRN.JASEN * Telephone Encounter - Vickie Gaines RN - 05/18/2024 9:52 AM EDT Pt was d/c'd from [facility] yesterday. Reports she was admitted with duodenal ulcer, GI bleed, Flu A, sinus infection. Pt has f/u appt with Angela King on 05/22/24. TCM completed. Coumadin is on hold. Pt taking new Rx's carafate, and protonix. She was told carafate interacts with coumadin. Pt reports [facility] instructed her to restart coumadin on Tuesday05/20/24. Asking Otoniel if she should start it on Tuesday. Should she have INR checked first. Reports she has a standing order through Heart group at [facility]. Please advise and phone pt with reply. documented in [facility] Telephone encounter Note * Telephone Encounter - Otoniel King APRN.CNP - 05/18/2024 10:29 AM EDT Noted. Since [facility] is managing her Coumadin, INR, she should reach out to them to asktheir guidance. Otoniel King APRN.JASEN [facility]03-14-2025 Telephone encounter Note* Telephone Encounter - Vickie Gaines RN - 05/18/2024 9:52 AM EDT Pt was d/c'd from [facility] yesterday. Reports she was admitted with duodenal ulcer, GI bleed, Flu A, sinus infection. Pt has f/u appt with Angela King on 05/22/24. TCM completed. Coumadin is on hold. Pt taking new Rx's carafate, and protonix. She was told carafate interacts with coumadin. Pt reports [facility] instructed her to restart coumadin on Tuesday05/20/24. Asking Otoniel if she should start it on Tuesday. Should she have INR checked first. Reports she has a standing order through Heart group at [facility]. Please advise and phone pt with reply. [facility]03-14-2025 NoteHNO ID: [id number] Author: Vickie GAINES RN Service: ? Author Type: Registered Nurse Type: Progress Notes Filed: 05/18/2024 09:52 Note Text: TRANSITION CARE MANAGEMENT (TCM) INITIAL CONTACT Divisional Merchandising Manager Outreach Provider Action/FYI: Pt reports [facility] instructed her to start coumadin on Tuesday05/20/24. Initial contact with patient post discharge, spoke to patient. Patient identified by name and . TRANSITION CARE MANAGEMENT INITIAL OUTREACH DOCUMENTATION: 05/18/2024 Date of Outreach: Outreach Attempt 1: Contact Made Date of Discharge 05/17/2024 SUMMARY: -Pt discharged from [facility] on 05/17/24. -Admitted for: Duodenal ulcer. GI bleed. Flu A. Sinus infection. Do you have a hospital follow up appointment with your PCP? Appointment on 05/22/24 with Otoniel King. Yes. Remind patient of appointment date, time, and location. If not within 14 calendar days of discharge - please reschedule accordingly. MEDICATIONS: Many patients have questions or concerns about their medications once they are home. Were you prescribed any new medications? If yes, what are those medications? Carafate. Protonix. Were you told to hold any medications? If yes, what are those medications? Coumadin on Hold. Has to check INR before restarts. States she has a standing order at [facility] for heart group. Were any of your medications discontinued? No Do you have any questions about getting or taking your medications? No Your discharge instructions/After visit Summary (AVS) are important in guiding you through the recovery process. Is there anything I might help you understand? No Do you have all the necessary equipment and supplies at home? Yes Medical records from recent hospitalization: [facility] History of Present illness Narrative* Vickie Gaines, ALONDRA - 05/18/2024 9:29 AM EDT TRANSITION CARE MANAGEMENT (TCM) INITIAL CONTACT Divisional Merchandising Manager Outreach Provider Action/FYI: Pt reports [facility] instructed her to start coumadin on Tuesday05/20/24. Initial contact with patient post discharge, spoke to patient. Patient identified by name and . TRANSITION CARE MANAGEMENT INITIAL OUTREACH DOCUMENTATION: 05/18/2024 Date of Outreach: Outreach Attempt 1: Contact Made Date of Discharge 05/17/2024 SUMMARY: -Pt discharged from [facility] on 05/17/24. -Admitted for: Duodenal ulcer. GI bleed. Flu A. Sinus infection. Do you have a hospital follow up appointment with your PCP? Appointment on 05/22/24 with Otoniel King. Yes. Remind patient of appointment date, time, and location. If not within 14 calendar days of discharge - please reschedule accordingly. MEDICATIONS: Many patients have questions or concerns about their medications once they are home. Were you prescribed any new medications? If yes, what are those medications? Carafate. Protonix. Were you told to hold any medications? If yes, what are those medications? Coumadin on Hold. Has to check INR before restarts. States she has a standing order at [facility] for heart group. Were any of your medications discontinued? No Do you have any questions about getting or taking your medications? No Your discharge instructions/After visit Summary (AVS) are important in guiding you through the recovery process. Is there anything I might help you understand? No Do you have all the necessary equipment and supplies at home? Yes Medical records from recent hospitalization: Care Everywhere documented in this encounterSt. [facility] NotePatient Outreach (FAMPWS) LAISHA WALKER ([id number]) 1950 F Date Time Provider Department 05/18/24 FLAKO TRACY FAMPWS During your visit today, we recorded the following information about you: Vickie Gaines RN 05/18/2024 9:52 AM Signed TRANSITION CARE MANAGEMENT (TCM) INITIAL CONTACT Divisional Merchandising Manager Outreach Provider Action/FYI: Pt reports [facility] instructed her to start coumadin on Tuesday05/20/24. Initial contact with patient post discharge, spoke to patient. Patient identified by name and . TRANSITION CARE MANAGEMENT INITIAL OUTREACH DOCUMENTATION: 05/18/2024 Date of Outreach: Outreach Attempt 1: Contact Made Date of Discharge 05/17/2024 SUMMARY: -Pt discharged from [facility] on 05/17/24. -Admitted for: Duodenal ulcer. GI bleed. Flu A. Sinus infection. Do you have a hospital follow up appointment with your PCP? Appointment on 05/22/24 with Otoniel King. Yes. Remind patient of appointment date, time, and location. If not within 14 calendar days of discharge - please reschedule accordingly. MEDICATIONS: Many patients have questions or concerns about their medications once they are home. Were you prescribed any new medications? If yes, what are those medications? Carafate. Protonix. Were you told to hold any medications? If yes, what are those medications? Coumadin on Hold. Has to check INR before restarts. States she has a standing order at [facility] for heart group. Were any of your medications discontinued? No Do you have any questions about getting or taking your medications? No Your discharge instructions/After visit Summary (AVS) are important in guiding you through the recovery process. Is there anything I might help you understand? No Do you have all the necessary equipment and supplies at home? Yes Medical records from recent hospitalization: Care Everywhere Allergies As of Date: 05/18/2024 Noted Allergy Reaction GABAPENTIN 11/03/2021 14 - Other: See Comments Comments: Dizziness ACCUPRIL (QUINAPRIL HCL) 07/05/2005 14 - Other: See Comments BEXTRA (VALDECOXIB) 07/05/2005 8 - GI Upset CELEBREX (CELECOXIB) 07/05/2005 8 - GI Upset Comments: CODEINE 07/05/2005 14 - Other: See Comments ENTEX LA (PHENYLEPHRINE-GUAIFENES*07/05/2005 14 - Other: See Comments GLUCOPHAGE (METFORMIN HCL) 07/05/2005 14 - Other: See Comments LIPITOR (ATORVASTATIN CALCIUM) 07/05/2005 14 - Other: See Comments LODINE (ETODOLAC) 07/05/2005 8 - GI Upset NAPROSYN (NAPROXEN) 07/05/2005 14 - Other: See Comments NSAIDS (NON-STEROIDAL ANTI-INFLAM*12/06/2019 14 - Other: See Comments PRAVACHOL (PRAVASTATIN SODIUM) 07/05/2005 14 - Other: See Comments Comments: Worsening abdominal pain SULFA (SULFONAMIDE ANTIBIOTICS) 07/08/2014 8 - GI Upset ULTRACET (TRAMADOL-ACETAMINOPHEN) 07/05/2005 14 - Other: See Comments VICODIN (HYDROCODONE-ACETAMINOPHE*07/05/2005 14 - Other: See Comments VIOXX (ROFECOXIB) 07/05/2005 14 - Other: See Comments ZOCOR (SIMVASTATIN) 07/05/2005 14 - Other: See Comments Date Reviewed: 02/16/2024 Reviewed by: Meggan Bartlett LPN - Fully Assessed Reason for Visit: Transition Of Care [4074] Prescriptions as of 05/18/2024 - blood sugar diagnostic (BLOOD GLUCOSE TEST) test strip Test blood sugar(s) 1` times daily. Dx: Type 2 DM - Uncontrolled E11.65 Insulin: No - glipiZIDE (GLUCOTROL XL) 10mg 24 hr tablet Take 1 tablet by mouth two times a day. - metoprolol tartrate, short acting, (LOPRESSOR) 50 mg tablet Take 50 mg by mouth two times a day. - rosuvastatin (CRESTOR) 10 mg tablet Take 20 mg by mouth once daily. - losartan (COZAAR) 25 mg tablet Take 0.5 tablets by mouth every afternoon. - warfarin (COUMADIN) 5 mg tablet 2.5 mg //Tuesday, 5 mg all other days or as directed - docusate sodium (STOOL SOFTENER ORAL) Take by mouth as needed. OTC - Lancets lancets Test blood sugar(s) 1` times daily. Dx: Type 2 DM - Uncontrolled E11.65 Insulin: No - hydrocortisone (ANUSOL-HC) 2.5 % rectal cream by RECTAL route twice daily. - multivitamin (MULTIPLE VITAMINS ORAL) Take by mouth. - alcohol swabs (ALCOHOL PREP PADS) Apply 1 application to affected area once daily. - loratadine (CLARITIN) 10 mg tablet Take 10 mg by mouth once daily. - acetaminophen (TYLENOL) 325 mg tablet Take 500 mg by mouth. 2 TABLETS AT HS Problem List As Of Date 05/18/2024 Noted Resolved LUMBAGO [M54.50] 07/06/2005 ENTHESOPATHY OF HIP [M76.899] 07/06/2005 SPRAIN LUMBAR REGION [S33.5XXA] 07/06/2005 Dyslipidemia associated with type 2 diabetes me* Paroxysmal atrial fibrillation (HCC) [I48.0] 01/15/2023 Carotid stenosis, asymptomatic [I65.29] Right renal mass [N28.89] 05/18/2019 Obesity, Class II, BMI 35-39.9 [E66.812] 05/19/2019 Renal carcinoma, right (HCC) [C64.1] 05/20/2019 01/21/2023 Other cirrhosis of liver (HCC) [K74.69] 05/23/2020 Stage 3a chronic kidney disease (HCC) [ (more content not included)...[facility]03-13-2025 Consult note [facility] Medical Records Department [address] [place] [address] Counseling Note - Pharmacy 05/17/24 1512 MR#: [id number] Acct: [id number] Name: LAISHA WALKER Rep #:[id number] : 1950 74 From: Sangita Cross PCP: Dr. Flako Tracy MD Status:AD M IN Location: [facility] [id number] Pharmacy [facility] Service has performed discharge medication reconciliation and counseling for this patient. 1. PANTOPRAZOLE 40MG PO BID 2. SUCRALFATE 1GM PO TIDAC 3. RESUMES WARFARIN 05/20 The patient's discharge medication list was reviewed for discrepancies and discrepancies were resolved. The patient was counseled on the following discharge medications and changes in medications for homegoing were reviewed. The Reason for Use, instructions for use, and potential side effects were reviewed for all new medications. The patient's questions regarding all of their medications were answered. The patient was able to verbally demonstrate an understanding of their dischargemedications. Medications at Discharge Home Medications acetaminophen 325 mg tablet 1,000 mg PO QHS 06/26/16 loratadine 10 mg tablet 10 mg PO QHS 30 days 07/23/16 docusate sodium 100 mg capsule (Colace) 200 mg PO QHS 01/21/23 multivitamin (Daily Multi-Vitamin tablet) 1 tab PO DAILY 01/21/23 hydrocortisone 2.5 % topical cream with perineal applicator (Anusol-HC) 1 applicPR QD-BID PRN hemorrhoids 02/04/23 promethazine 12.5 mg tablet 12.5 mg PO Q6H PRN nausea and vomiting 02/04/23 losartan 25 mg tablet 12.5 mg (1/2 x 25 mg) PO DAILY #45 tabs 08/15/23 metoprolol tartrate 50 mg tablet 50 mg PO BID #180 tabs 02/24/24 rosuvastatin 20 mg tablet 20 mg PO QHS #90 tabs 03/13/24 glipizide 10 mg tablet, extended release 24 hr 10 mg PO BID 04/18/24 ondansetron 4 mg disintegrating tablet 4 mg PO Q8H PRN PRN Nausea #10 tabs 05/14/24 warfarin 2.5 mg tablet 2.5 mg PO MOTUWETH 05/15/24 Held on 05/17/24. Instructions: Resume on 05/21/24. warfarin 5 mg tablet 5 mg PO .FRSASU 05/15/24 Held on 05/17/24. Instructions: Resume on 05/20/24. pantoprazole 40 mg tablet,delayed release 40 mg PO BID #60 tabs 05/17/24 sucralfate 1 gram tablet 1 g PO TIDAC #90 tabs 05/17/24 05/17/24 1513 Date _ Sangita Cain Signature (if applicable): Date CC: ~ Signed [facility]03-13-2025 Discharge summary Author Adonis Love [facility] Note Date/Time May 17, 2024 12: 37pm [facility] Medical Records Department [address] [place] [address] Discharge Summary 05/17/24 1229 MR#: [id number] Acct: [id number] Name: LAISHA WALKER Rep #:[id number] : 1950 74 From: Adonis Love DO PCP: Dr. Flako Tracy MD Status:AD M IN Location: [facility] [id number] Providers Date of Admission: 05/15/24 Primary Care Physician: Dr. Flako Tracy MD Consultations 05/15/24 23:22 Consult: Gastroenterology Routine Consulting Provider: [facility] Reason for Consult: UGIB with Melanotic Stools on Warfarin. EMERGENT Consult: No MD Notified: Yes Date Notified: 05/16/24 Time Notified: 07:42 Method of Notification: Text Reason For Visit: UGIB WITH MELANOTIC STOOLS & ADVERSE DRUG REACTION Diagnosis Discharge Diagnosis (1) GI bleed: Status: Acute Code(s): K92.2 - Gastrointestinal hemorrhage, unspecified Plan: PPI gtt. Unclear source, but suspect upper source. Warfarin held (not causing the bleeding, but exacerbating it) Hg down slightly to 9.7 (from 11.5). EGD on the show abdominal normal esophagus, small hiatal hernia, nonbleeding cratered duodenal ulcer with pigmented material. Suspect that bleeding that the patient had was due to this duodenal ulcer. Patient continue with pantoprazole and Sucre fate. (2) Debility: Status: Acute Code(s): R53.81 - Other malaise Plan: Patient had falls at home. Case management spoke with patient's in the afternoon on and patient declines home health care. Patient will follow-upwith outpatient therapy. Plan Chronic conditions: * pAfib: warfarin held given GIB. Continue metoprolol * HTN: losartan * DM2: glipizide held. SSI. VTE prophylaxis: SCDs. Medications at Discharge Home Medications acetaminophen 325 mg tablet 1,000 mg PO QHS 06/26/16 loratadine 10 mg tablet 10 mg PO QHS 30 days 07/23/16 docusate sodium 100 mg capsule (Colace) 200 mg PO QHS 01/21/23 multivitamin (Daily Multi-Vitamin tablet) 1 tab PO DAILY 01/21/23 hydrocortisone 2.5 % topical cream with perineal applicator (Anusol-HC) 1 applicPR QD-BID PRN hemorrhoids 02/04/23 promethazine 12.5 mg tablet 12.5 mg PO Q6H PRN nausea and vomiting 02/04/23 losartan 25 mg tablet 12.5 mg (1/2 x 25 mg) PO DAILY #45 tabs 08/15/23 metoprolol tartrate 50 mg tablet 50 mg PO BID #180 tabs 02/24/24 rosuvastatin 20 mg tablet 20 mg PO QHS #90 tabs 03/13/24 glipizide 10 mg tablet, extended release 24 hr 10 mg PO BID 04/18/24 ondansetron 4 mg disintegrating tablet 4 mg PO Q8H PRN PRN Nausea #10 tabs 05/14/24 warfarin 2.5 mg tablet 2.5 mg PO MOTUWETH 05/15/24 Held on 05/17/24. Instructions: Resume on 05/21/24. warfarin 5 mg tablet 5 mg PO .FRSASU 05/15/24 Held on 05/17/24. Instructions: Resume on 05/20/24. pantoprazole 40 mg tablet,delayed release 40 mg PO BID #60 tabs 05/17/24 sucralfate 1 gram tablet 1 g PO TIDAC #90 tabs 05/17/24 Hospital Course Operations None Procedures EGD Summary of Care Provided Minutes Spent on Discharge: 31 Hospital Course: Patient presents with melena. Patient underwent an EGD on the that showed a duodenal ulcer that was not bleeding. Patient was started on pantoprazole drip prior to that and Sucre fate. Patient remained stable and hemoglobin remained stable. Family made concerned about her ability but the medical plan is for patient to go home with outpatient therapy. Weight / BMI Weight Weight: 95.2 kg Body Mass Index (BMI) 36.0 ABG / Lab / Microbiology Data 05/17/24 10:30 05/17/24 05:37 Laboratory: Laboratory Results - last 24 hr 05/16/24 04:19: Urine RBC 0 SEEN 05/16/24 12:06: POC Glucose 120 H 05/16/24 18:25: POC Glucose 120 H 05/17/24 00:14: POC Glucose 137 H 05/17/24 05:37: WBC 4.0 L, RBC 3.47 L, Hgb 9.7 L, Hct 29.2 L, MCV 84.1, MCH 28.0, MCHC 33.2, RDW Std Deviation 44.4 H, RDW Coeff of Rukhsana 14.6, Plt Count 145 L, MPV 11.2, Immature Gran % (Auto) 0.200, Neut % (Auto) 58.6, Lymph % (Auto) 31.8, [place] % (Auto) 8.5, Eos % (Auto) 0.7, Baso % (Auto) 0.2, Absolute Neuts (auto) 2.4, Absolute Lymphs (auto) 1.28, Nucleated RBC % 0, Sodium 135, Potassium 3.6, Chloride 103, Carbon Dioxide 19.2 L, Anion Gap 13, BUN 13, Creatinine 0.91, Estim Creat Clear Calc 58.87, Est GFR (MDRD) Non-Af 66, BUN/Creatinine Ratio 14.2, Glucose 111 H, Calcium 8.4, Phosphorus 3.0, Magnesium1.5 05/17/24 05:49: POC Glucose 112 H 05/17/24 10:30: Hgb 10.5 L, Hct 32.4 L Microbiology: Microbiology 05/15/24 17:15 Stool Stool Occult Blood (MANDY) - Final Radiography Diagnostic Testing: Radiology Impression Abdomen/Pelvis CT 05/16/24 19:10 IMPRESSION: 1. Moderate focal wall thickening of the proximal duodenum with surrounding edema/inflammation likely related to the history of duodenal ulcer. No sanna duodenal abscess or free air. 2. Mild mesenteric edema in the right upper quadrant and along the right pericolic gutter likely related to #1. 3. Cirrhosis. 4. Additional findings as above. One or more dose reduction techniques were used (e.g., Automated exposure control, adjustment of the mA and/or kV according to patient size, use of iterative reconstruction technique). Reading Location: [facility] Instructions Discharge Diet: No restrictions DC O2, CPAP, BIPAP Needs Home O2 Discharge instructions: No Meaningful Use Info Meaningful Use Meaningful Use Diagnoses (Choose all that apply): None applicable Ischemic Stroke Statin Dosing Therapy Reference: STATIN DOSE THERAPY REFERENCE: * Patients > 75 years receive moderate or high dose statin therapy. * Patients 75 years or YOUNGER should receive HIGH intensity statin dose unless contraindicated. You will be required to document reason for non-treatment if statin daily dose does not meet guidelines. HIGH DOSE STATIN THERAPY DAILY Atorvastatin > than or = to 40 mg Rosuvastatin > than or = to 20 mg Amlodipine + Atorvastatin > than or = to 2.5/40 mg Ezetimibe + Simvastatin 10/80 mg Simvastatin 80mg Discharge Plan Admission Admit Date/Time: 05/15/24 22:27 Primary Reason for Your Visit: GI bleed. Attending Provider: Adonis Love Primary Care Provider: Flako Tracy Consulting Providers: [place] Instructions Additional Instructions / Restrictions: You had bleeding due to an ulcer in your duodenum. There is no longer bleeding but you will be on medication with Protonix and Sucre fate. If you have recurrent bleeding, notify your physician or return to the emergency room. We will hold off on your warfarin for 2 more days. Then you can resume that at that time. Please have your INR check later next week with you primary care physician. Discharge Orders/Prescriptions Prescriptions: New sucralfate 1 gram Tablet 1 g PO TIDAC Qty: 90 0RF pantoprazole 40 mg tablet,delayed release (DR/EC) 40 mg PO BID Qty: 60 0RF Continued promethazine 12.5 mg tablet 12.5 mg PO Q6H PRN (Reason: nausea and vomiting) hydrocortisone [Anusol-HC] 2.5 % cream with perineal applicator 1 applic [place] QD-BID PRN (Reason: hemorrhoids) glipizide 10 mg tablet extended release 24hr 10 mg PO BID acetaminophen 325 MG tablet 1,000 mg PO QHS Patient Comments: pain control loratadine 10 MG tablet 10 mg PO QHS 30 Days 0RF multivitamin [Daily Multi-Vitamin] Tablet 1 tab PO DAILY docusate sodium [Colace] 100 mg capsule 200 mg PO QHS ondansetron 4 mg tablet,disintegrating 4 mg PO Q8H PRN PRN (Reason: Nausea) Qty: 10 0RF losartan 25 mg tablet 12.5 mg PO DAILY Qty: 45 3RF Rx Instructions: Hold for SBP less than 130 mmHg metoprolol tartrate 50 mg tablet 50 mg PO BID Qty: 180 3RF rosuvastatin 20 mg tablet 20 mg PO QHS Qty: 90 3RF Held warfarin 5 mg tablet 5 mg PO .FRSASU Hold Instructions: Resume on 05/20/24. warfarin 2.5 mg tablet 2.5 mg PO MOTUWETH Hold Instructions: Resume on 05/21/24. Protocol: Dose Management Condition: Tuesday Dose/Route: 5 mg Instruction: 2 x 2.5 mg tablets Condition: Tuesday Dose/Route: 2.5 mg Instruction: 1 x 2.5 mg tablet Condition: Tuesday Dose/Route: 2.5 mg Instruction: 1 x 2.5 mg tablet Condition: Tuesday Dose/Route: 2.5 mg Instruction: 1 x 2.5 mg tablet Condition: Dose/Route: 2.5 mg Instruction: 1 x 2.5 mg tablet Condition: Tuesday Dose/Route: 5 mg Instruction: 2 x 2.5 mg tablets Condition: Tuesday Dose/Route: 5 mg Instruction: 2 x 2.5 mg tablets Protocol Text: Adjustment Start Date: Tuesday05/02/24 INR Value: 2.2 INR Date: 05/02/24 Recheck Date: 06/01/24 Rx Instructions: 2.5 mg orally 1 tablet (2.5 mg) on Tuesday, Tuesday, Tuesday, and ; 2 tablets together to = 5mg on Tuesday, Tuesday and Tuesday at bedtdime; dose changes often, please give extra tablets Other Ambulatory Orders: Physical Therapy Evaluation (Routine) Location: None Selected Ordered By: Dr. Adonis Love Referrals / Follow Up: Flako Tracy MD [Primary Care Provider] - Within 2 Weeks [facility] [Provider Group] - Within 1 Month Disposition Disposition (needs filled in before D/C Order can be placed): Home, Self Care Charges/Coding Visit Charges Inpatient E&M: 44824 Disch Hosp >30min 05/17/24 1237 <Electronically signed by Adonis Love DO> Cosigner Signature (if applicable): CC: Dr. Adonis Love DO; Dr. Flako Tracy MD~ Signed [facility] Work Phone: [phone] 738-368003-13-2025 Progress note Author Adonis Love [facility] Note Date/Time May 17, 2024 11: 44am [facility] Medical Records Department [address] [place] [address] Progress Note - Hospitalist 05/17/24 0738 MR#: [id number] Acct: [id number] Name: LAISHA WALKER Rep #:[id number] : 1950 74 From: Adonis Love DO PCP: Dr. Flako Tracy MD Status:AD M IN Location: [facility] [id number] Reason for Visit Reason for Visit: Diagnoses Obesity, unspecified (05/15/24) Paroxysmal atrial fibrillation (05/15/24) Influenza due to other identified influenza virus with other respiratory manifestations (05/15/24) Chronic maxillary sinusitis (05/15/24) Chronic ethmoidal sinusitis (05/15/24) Unspecified cirrhosis of liver (05/15/24) Melena (05/15/24) Gastrointestinal hemorrhage, unspecified (05/15/24) Adverse effect of unspecified drugs, medicaments and biological substances, initial encounter (05/15/24) Subjective Subjective Had some black and brown stool. Some abdominal pain. Objective Data Objective Data Vital Signs: Vital Signs Temp Pulse Resp BP Pulse Ox O2 Del Method 36.1 C L 93 16 150/63 H 93 Room Air 05/17/24 04:00 05/17/24 04:00 05/17/24 04:00 05/17/24 04:00 05/17/24 04:00 05/17/24 05:00 Oxygen Delivery Method Room Air Weight: 95.2 kg Body Mass Index (BMI) 36.0 Intake & Output: Intake and Output for Last 24 Hours 05/15/24 05/16/24 05/17/24 23:59 23:59 23:59 Intake Total 610 / 610 2870.34 / 3270.34 855 / 855 Balance 610 / 610 2870.34 / 3270.34 855 / 855 Lab / Micro Data 05/17/24 05:37 05/17/24 05:37 Labs: Laboratory Results - last 24 hr 05/16/24 04:19: Urine Color Yellow, Urine Clarity Clear, Urine pH 6.0, Ur Specific Clyde 1.015, Urine Protein Negative, Urine Glucose (UA) Normal, UrineKetones Negative, Urine Occult Blood Negative, Urine Nitrite Negative, Urine Bilirubin Negative, Urine Urobilinogen Normal, Ur Leukocyte Esterase Negative, Urine RBC 0 SEEN, Urine WBC 0 SEEN, Ur Squamous Epith Cells 0 SEEN, Urine Bacteria 0 SEEN, Urine Mucus 0 SEEN 05/16/24 12:06: POC Glucose 120 H 05/16/24 18:25: POC Glucose 120 H 05/17/24 00:14: POC Glucose 137 H 05/17/24 05:37: WBC 4.0 L, RBC 3.47 L, Hgb 9.7 L, Hct 29.2 L, MCV 84.1, MCH 28.0, MCHC 33.2, RDW Std Deviation 44.4 H, RDW Coeff of Rukhsana 14.6, Plt Count 145 L, MPV 11.2, Immature Gran % (Auto) 0.200, Neut % (Auto) 58.6, Lymph % (Auto) 31.8, [place] % (Auto) 8.5, Eos % (Auto) 0.7, Baso % (Auto) 0.2, Absolute Neuts (auto) 2.4, Absolute Lymphs (auto) 1.28, Nucleated RBC % 0, Sodium 135, Potassium 3.6, Chloride 103, Carbon Dioxide 19.2 L, Anion Gap 13, BUN 13, Creatinine 0.91, Estim Creat Clear Calc 58.87, Est GFR (MDRD) Non-Af 66, BUN/Creatinine Ratio 14.2, Glucose 111 H, Calcium 8.4, Phosphorus 3.0, Magnesium1.5 05/17/24 05:49: POC Glucose 112 H Micro: Microbiology 05/15/24 17:15 Stool Stool Occult Blood (MANDY) - Final Radiography Diagnostic Testing: Radiology Impression Abdomen/Pelvis CT 05/16/24 19:10 IMPRESSION: 1. Moderate focal wall thickening of the proximal duodenum with surrounding edema/inflammation likely related to the history of duodenal ulcer. No sanna duodenal abscess or free air. 2. Mild mesenteric edema in the right upper quadrant and along the right pericolic gutter likely related to #1. 3. Cirrhosis. 4. Additional findings as above. One or more dose reduction techniques were used (e.g., Automated exposure control, adjustment of the mA and/or kV according to patient size, use of iterative reconstruction technique). Reading Location: [facility] Physical Exam Const alert and no apparent distress HEENT head/scalp atraumatic and moist oral mucous membranes Resp normal respiratory effort, no retractions, no use of accessory muscles and clearto auscultation bilaterally Cardio regular rate, regular rhythm, S1 normal heart sound and S2 normal heart sound GI normal to inspection, nondistended, normoactive bowel sounds, soft to palpation,non-tender and non-distended Assessment & Plan Assessment/Plan (1) GI bleed: PLAN: PPI gtt. Unclear source, but suspect upper source. Warfarin held (not causing the bleeding, but exacerbating it) Hg down slightly to 9.7 (from 11.5). EGD on the show abdominal normal esophagus, small hiatal hernia, nonbleeding cratered duodenal ulcer with pigmented material. Suspect that bleeding that the patient had was due to this duodenal ulcer. Patient continue with pantoprazole and Sucre fate. (2) Debility: PLAN: Patient had falls at home. Case management spoke with patient's in the afternoon on and patient declines home health care. Patient will follow- upwith outpatient therapy. PLAN: Plan Chronic conditions: * pAfib: warfarin held given GIB. Continue metoprolol * HTN: losartan * DM2: glipizide held. SSI. VTE prophylaxis: SCDs. Charges/Coding Visit Charges Inpatient E&M: 91024 Subs Hosp L2 05/17/24 1144 <Electronically signed by Adonis Love DO> Cosigner Signature (if applicable): CC: ~ Signed [facility] Work Phone: [phone]) [phone] Discharge summary [facility] Medical Records Department [address] [place] [id number] Discharge Summary 05/17/24 1229 MR#: [id number] Acct: [id number] Name: LAISHA WALKER Rep #:[id number] : 1950 74 From: Adonis Love DO PCP: Dr. Flako Tracy MD Status:AD M IN [facility] Prov[facility] Date of Admission: 05/15/24 Primary Care Physician: Dr. Flako Tracy MD Consultations 05/15/24 23:22 Consult: Gastroenterology Routine Consulting Provider: [facility] Reason for Consult: UGIB with Melanotic Stools on Warfarin. EMERGENT Consult: No MD Notified: Yes Date Notified: 05/16/24 Time Notified: 07:42 Method of Notification: Text Reason For Visit: UGIB WITH MELANOTIC STOOLS & ADVERSE DRUG REACTION Diagnosis Discharge Diagnosis (1) GI bleed: Status: Acute Code(s): K92.2 - Gastrointestinal hemorrhage, unspecified Plan: PPI gtt. Unclear source, but suspect upper source. Warfarin held (not causing the bleeding, but exacerbating it) Hg down slightly to 9.7 (from 11.5). EGD on the show abdominal normal esophagus, small hiatal hernia, nonbleeding cratered duodenalulcer with pigmented material. Suspect that bleeding that the patient had was due to this duodenal ulcer. Patient continue with pantoprazole and Sucre fate. (2) Debility: Status: Acute Code(s): R53.81 - Other malaise Plan: Patient had falls at home. Case management spoke with patient's in the afternoon on and patient declines home health care. Patient will follow-upwith outpatient therapy. Plan Chronic conditions: * pAfib: warfarin held given GIB. Continue metoprolol * HTN: losartan * DM2: glipizide held. SSI. VTE prophylaxis: SCDs. Medications at Discharge Home Medications acetaminophen 325 mg tablet 1,000 mg PO QHS 06/26/16 loratadine 10 mg tablet 10 mg PO QHS 30 days 07/23/16 docusate sodium 100 mg capsule (Colace) 200 mg PO QHS 01/21/23 multivitamin (Daily Multi-Vitamin tablet) 1 tab PO DAILY 01/21/23 hydrocortisone 2.5 % topical cream with perineal applicator (Anusol-HC) 1 applicPR QD-BID PRN hemorrhoids 02/04/23 promethazine 12.5 mg tablet 12.5 mg PO Q6H PRN nausea and vomiting 02/04/23 losartan 25 mg tablet 12.5 mg (1/2 x 25 mg) PO DAILY #45 tabs 08/15/23 metoprolol tartrate 50 mg tablet 50 mg PO BID #180 tabs 02/24/24 rosuvastatin 20 mg tablet 20 mg PO QHS #90 tabs 03/13/24 glipizide 10 mg tablet, extended release 24 hr 10 mg PO BID 04/18/24 ondansetron 4 mg disintegrating tablet 4 mg PO Q8H PRN PRN Nausea #10 tabs 05/14/24 warfarin 2.5 mg tablet 2.5 mg PO MOTUWETH 05/15/24 Held on 05/17/24. Instructions: Resume on 05/21/24. warfarin 5 mg tablet 5 mg PO .FRSASU 05/15/24 Held on 05/17/24. Instructions: Resume on 05/20/24. pantoprazole 40 mg tablet,delayed release 40 mg PO BID #60 tabs 05/17/24 sucralfate 1 gram tablet 1 g PO TIDAC #90 tabs 05/17/24 Hospital Course Operations None Procedures EGD Summary of Care Provided Minutes Spent on Discharge: 31 Hospital Course: Patient presents with melena. Patient underwent an EGD on the that showed a duodenal ulcer that was not bleeding. Patient was started on pantoprazole drip prior to that and Sucre fate. Patient remained stable and hemoglobin remained stable. Family made concerned about her ability but the medical plan is for patient to go home with outpatient therapy. Weight / BMI Weight Weight: 95.2 kg Body Mass Index (BMI) 36.0 ABG / Lab / Microbiology Data 05/17/24 10:30 05/17/24 05:37 Laboratory: Laboratory Results - last 24 hr 05/16/24 04:19: Urine RBC 0 SEEN 05/16/24 12:06: POC Glucose 120 H 05/16/24 18:25: POC Glucose 120 H 05/17/24 00:14: POC Glucose 137 H 05/17/24 05:37: WBC 4.0 L, RBC 3.47 L, Hgb 9.7 L, Hct 29.2 L, MCV 84.1, MCH 28.0, MCHC 33.2, RDW Std Deviation 44.4 H, RDW Coeff of Rukhsana 14.6, Plt Count 145 L, MPV 11.2, Immature Gran % (Auto) 0.200, Neut % (Auto) 58.6, Lymph % (Auto) 31.8, De [place] % (Auto) 8.5, Eos % (Auto) 0.7, Baso % (Auto) 0.2, Absolute Neuts (auto) 2.4, Absolute Lymphs (auto) 1.28, Nucleated RBC % 0, Sodium 135, Potassium 3.6, Chloride 103, Carbon Dioxide 19.2 L, Anion Gap 13, BUN 13, Creatinine 0.91, Estim Creat Clear Calc 58.87, Est GFR (MDRD) Non-Af 66, BUN/Creatinine Ratio 14.2, Glucose 111 H, Calcium 8.4, Phosphorus 3.0, Magnesium1.5 05/17/24 05:49: POC Glucose 112 H 05/17/24 10:30: Hgb 10.5 L, Hct 32.4 L Microbiology: Microbiology 05/15/24 17:15 Stool Stool Occult Blood (MANDY) - Final Radiography Diagnostic Testing: Radiology Impression Abdomen/Pelvis CT 05/16/24 19:10 IMPRESSION: 1. Moderate focal wall thickening of the proximal duodenum with surrounding edema/inflammation likely related to the history of duodenal ulcer. No sanna duodenal abscess or free air. 2. Mild mesenteric edema in the right upper quadrant and along the right pericolic gutter likely related to #1. 3. Cirrhosis. 4. Additional findings as above. One or more dose reduction techniques were used (e.g., Automated exposure control, adjustment of the mA and/or kV according to patient size, use of iterative reconstruction technique). [facility] Instructions Discharge Diet: No restrictions DC O2, CPAP, BIPAP Needs Home O2 Discharge instructions: No Meaningful Use Info Meaningful Use Meaningful Use Diagnoses (Choose all that apply): None applicable Ischemic Stroke Statin Dosing Therapy Reference: STATIN DOSE THERAPY REFERENCE: * Patients > 75 years receive moderate or high dose statin therapy. * Patients 75 years or YOUNGER should receive HIGH intensity statin dose unless contraindicated. You will be required to document reason for non-treatment if statin daily dose does not meet guidelines. HIGH DOSE STATIN THERAPY DAILY Atorvastatin > than or = to 40 mg Rosuvastatin > than or = to 20 mg Amlodipine + Atorvastatin > than or = to 2.5/40 mg Ezetimibe + Simvastatin 10/80 mg Simvastatin 80mg Discharge Plan Admission Admit Date/Time: 05/15/24 22:27 Primary Reason for Your Visit: GI bleed. Attending Provider: Adonis Love Primary Care Provider: Flako Tracy Consulting Providers: [place] Instructions Additional Instructions / Restrictions: You had bleeding due to an ulcer in your duodenum. There is no longer bleeding but you will be on medication with Protonix and Sucre fate. If you have recurrent bleeding, notify your physician or return to the emergency room. We will hold off on your warfarin for 2 more days. Then you can resume that at that time. Please have your INR check later next week with you primary care physician. Discharge Orders/Prescriptions Prescriptions: New sucralfate 1 gram Tablet 1 g PO TIDAC Qty: 90 0RF pantoprazole 40 mg tablet,delayed release (DR/EC) 40 mg PO BID Qty: 60 0RF Continued promethazine 12.5 mg tablet 12.5 mg PO Q6H PRN (Reason: nausea and vomiting) hydrocortisone [Anusol-HC] 2.5 % cream with perineal applicator 1 applic FL QD-BID PRN (Reason: hemorrhoids) glipizide 10 mg tablet extended release 24hr 10 mg PO BID acetaminophen 325 MG tablet 1,000 mg PO QHS Patient Comments: pain control loratadine 10 MG tablet 10 mg PO QHS 30 Days 0RF multivitamin [Daily Multi-Vitamin] Tablet 1 tab PO DAILY docusate sodium [Colace] 100 mg capsule 200 mg PO QHS ondansetron 4 mg tablet,disintegrating 4 mg PO Q8H PRN PRN (Reason: Nausea) Qty: 10 0RF losartan 25 mg tablet 12.5 mg PO DAILY Qty: 45 3RF Rx Instructions: Hold for SBP less than 130 mmHg metoprolol tartrate 50 mg tablet 50 mg PO BID Qty: 180 3RF rosuvastatin 20 mg tablet 20 mg PO QHS Qty: 90 3RF Held warfarin 5 mg tablet 5 mg PO .FRSASU Hold Instructions: Resume on 05/20/24. warfarin 2.5 mg tablet 2.5 mg PO MOTUWETH Hold Instructions: Resume on 05/21/24. Protocol: Dose Management Condition: Tuesday Dose/Route: 5 mg Instruction: 2 x 2.5 mg tablets Condition: Tuesday Dose/Route: 2.5 mg Instruction: 1 x 2.5 mg tablet Condition: Tuesday Dose/Route: 2.5 mg Instruction: 1 x 2.5 mg tablet Condition: Tuesday Dose/Route: 2.5 mg Instruction: 1 x 2.5 mg tablet Condition: Dose/Route: 2.5 mg Instruction: 1 x 2.5 mg tablet Condition: Tuesday Dose/Route: 5 mg Instruction: 2 x 2.5 mg tablets Condition: Tuesday Dose/Route: 5 mg Instruction: 2 x 2.5 mg tablets Protocol Text: Adjustment Start Date: Tuesday05/02/24 INR Value: 2.2 INR Date: 05/02/24 Recheck Date: 06/01/24 Rx Instructions: 2.5 mg orally 1 tablet (2.5 mg) on Tuesday, Tuesday, Tuesday, and ; 2 tablets together to = 5mg on Tuesday, Tuesday and Tuesday at bedtdime; dose changes often, please give extra tablets Other Ambulatory Orders: Physical Therapy Evaluation (Routine) Location: None Selected Ordered By: Dr. Adonis Love Referrals / Follow Up: Flako Tracy MD [Primary Care Provider] - Within 2 Weeks [facility] [Provider Group] - Within 1 Month Disposition Disposition (needs filled in before D/C Order can be placed): Home, Self Care Charges/Coding Visit Charges Inpatient E&M: 58569 Disch Hosp >30min 05/17/24 1237 Cosigner Signature (if applicable): CC: Dr. Adonis Love DO; Dr. Flako Tracy MD~ Signed [facility] note [facility] Medical Records Department [address] [place] [address] Progress Note - Hospitalist 05/17/24 0738 MR#: [id number] Acct: [id number] Name: LAISHA WALKER Rep #:[id number] : 1950 74 From: Adonis Love DO PCP: Dr. Flako Tracy MD Status:AD M IN Location: [place] [address] Reason for Visit Reason for Visit: Diagnoses Obesity, unspecified (05/15/24) Paroxysmal atrial fibrillation (05/15/24) Influenza due to other identified influenza virus with other respiratory manifestations (05/15/24) Chronic maxillary sinusitis (05/15/24) Chronic ethmoidal sinusitis (05/15/24) Unspecified cirrhosis of liver (05/15/24) Melena (05/15/24) Gastrointestinal hemorrhage, unspecified (05/15/24) Adverse effect of unspecified drugs, medicaments and biological substances, initial encounter (05/15/24) Subjective Subjective Had some black and brown stool. Some abdominal pain. Objective Data Objective Data Vital Signs: Vital Signs Temp Pulse Resp BP Pulse Ox O2 Del Method 36.1 C L 93 16 150/63 H 93 Room Air 05/17/24 04:00 05/17/24 04:00 05/17/24 04:00 05/17/24 04:00 05/17/24 04:00 05/17/24 05:00 Oxygen Delivery Method Room Air Weight: 95.2 kg Body Mass Index (BMI) 36.0 Intake & Output: Intake and Output for Last 24 Hours 05/15/24 05/16/24 05/17/24 23:59 23:59 23:59 Intake Total 610 / 610 2870.34 / 3270.34 855 / 855 Balance 610 / 610 2870.34 / 3270.34 855 / 855 Lab / Micro Data 05/17/24 05:37 05/17/24 05:37 Labs: Laboratory Results - last 24 hr 05/16/24 04:19: Urine Color Yellow, Urine Clarity Clear, Urine pH 6.0, Ur Specific Clyde 1.015, Urine Protein Negative, Urine Glucose (UA) Normal, UrineKetones Negative, Urine Occult Blood Negative, Urine Nitrite Negative, Urine Bilirubin Negative, Urine Urobilinogen Normal, Ur Leukocyte Esterase Negative, Urine RBC 0 SEEN, Urine WBC 0 SEEN, Ur Squamous Epith Cells 0 SEEN, Urine Bacteria 0 SEEN, Urine Mucus 0 SEEN 05/16/24 12:06: POC Glucose 120 H 05/16/24 18:25: POC Glucose 120 H 05/17/24 00:14: POC Glucose 137 H 05/17/24 05:37: WBC 4.0 L, RBC 3.47 L, Hgb 9.7 L, Hct 29.2 L, MCV 84.1, MCH 28.0, MCHC 33.2, RDW Std Deviation 44.4 H, RDW Coeff of Rukhsana 14.6, Plt Count 145 L, MPV 11.2, Immature Gran % (Auto) 0.200, Neut % (Auto) 58.6, Lymph % (Auto) 31.8, [place] % (Auto) 8.5, Eos % (Auto) 0.7, Baso % (Auto) 0.2, Absolute Neuts (auto) 2.4, Absolute Lymphs (auto) 1.28, Nucleated RBC % 0, Sodium 135, Potassium 3.6, Chloride 103, Carbon Dioxide 19.2 L, Anion Gap 13, BUN 13, Creatinine 0.91, Estim Creat Clear Calc 58.87, Est GFR (MDRD) Non-Af 66, BUN/Creatinine Ratio 14.2, Glucose 111 H, Calcium 8.4, Phosphorus 3.0, Magnesium1.5 05/17/24 05:49: POC Glucose 112 H Micro: Microbiology 05/15/24 17:15 Stool Stool Occult Blood (AMNDY) - Final Radiography Diagnostic Testing: Radiology Impression Abdomen/Pelvis CT 05/16/24 19:10 IMPRESSION: 1. Moderate focal wall thickening of the proximal duodenum with surrounding edema/inflammation likely related to the history of duodenal ulcer. No sanna duodenal abscess or free air. 2. Mild mesenteric edema in the right upper quadrant and along the right pericolic gutter likely related to #1. 3. Cirrhosis. 4. Additional findings as above. One or more dose reduction techniques were used (e.g., Automated exposure control, adjustment of the mA and/or kV according to patient size, use of iterative reconstruction technique). Reading Location: [facility] Physical Exam Const alert and no apparent distress HEENT head/scalp atraumatic and moist oral mucous membranes Resp normal respiratory effort, no retractions, no use of accessory muscles and clearto auscultation bilaterally Cardio regular rate, regular rhythm, S1 normal heart sound and S2 normal heart sound GI normal to inspection, nondistended, normoactive bowel sounds, soft to palpation,non-tender and non-distended Assessment & Plan Assessment/Plan (1) GI bleed: PLAN: PPI gtt. Unclear source, but suspect upper source. Warfarin held (not causing the bleeding, but exacerbating it) Hg down slightly to 9.7 (from 11.5). EGD on the show abdominal normal esophagus, small hiatal hernia, nonbleeding cratered duodenalulcer with pigmented material. Suspect that bleeding that the patient had was due to this duodenal ulcer. Patient continue with pantoprazole and Sucre fate. (2) Debility: PLAN: Patient had falls at home. Case management spoke with patient's in the afternoon on and patient declines home health care. Patient will follow- upwith outpatient therapy. PLAN: Plan Chronic conditions: * pAfib: warfarin held given GIB. Continue metoprolol * HTN: losartan * DM2: glipizide held. SSI. VTE prophylaxis: SCDs. Charges/Coding Visit Charges Inpatient E&M: 95283 Subs Hosp L2 05/17/24 1144 Cosigner Signature (if applicable): CC: ~ Signed [facility]03-12-2025 Radiology Diagnostic study note [facility] Imaging Services [address] [place] [address] Abdomen/Pelvis WITH Contrast MR#: [id number] Acct: [id number] Name: LAISHA WALKER Rep #: [id number] : 1950 F 74 From: Emil Fischer DO PCP: Dr. Flako Tracy MD Status: AD M IN Study:Abdomen/Pelvis WITH Contrast Date of Ex am: 05/16/24 Exam# [id number] Ordering Dr: Daniella Jane DO PROCEDURE: CT abdomen pelvis with IV contrast REASON FOR EXAM: Pain, duodenal ulcer TECHNIQUE: Multiple contiguous axial images through the abdomen and pelvis were obtained after the administration of intravenous contrast. Two-dimensional coronal and sagittal reformatted images were reconstructed. Low- dose imaging technique was utilized. COMPARISON: 05/14/2024 FINDINGS: Lung bases are clear. Coronary artery calcifications. Cirrhotic morphology of the liver. Spleen, pancreas and adrenal glands are intact. Gallbladder is surgically absent. No significant biliary ductal dilation. Kidneys enhance symmetrically. No suspicious renal mass, calculi or hydronephrosis. Right renal atrophy and scarring along the inferior pole. Left renal cyst. Urinary bladder is intact. Moderate focal wall thickening of the 1st segment ofthe duodenum with moderate surrounding edema/inflammation. No periduodenal abscess or free air. Minimal edema/trace ascites also tracks along the right mesentery and right pericolic gutter toward the pelvis. No bowel obstruction. Severely calcified nonaneurysmal abdominal aorta. A couple mildly prominent periduodenal lymph nodes, likely reactive. No bulky retroperitoneal adenopathy. Small fat containing right inguinal hernia. No acute osseous abnormality. CT/Abdomen/Pelvis WITH Contrast IMPRESSION: 1. Moderate focal wall thickening of the proximal duodenum with surrounding edema/inflammation likely related to the history of duodenal ulcer. No sanna duodenal abscess or free air. 2. Mild mesenteric edema in the right upper quadrant and along the right pericolic gutter likely related to #1. 3. Cirrhosis. 4. Additional findings as above. One or more dose reduction techniques were used (e.g., Automated exposure control, adjustment of the mA and/or kV according to patient size, use of iterative reconstruction technique). Reading Location: [facility] CC: Dr. Flako Tracy MD; Omer Jane, ~ Account Group Supervisor: Signed [facility]03-12-2025 Consult note Author Reggie Murray [facility] Note Date/Time May 16, 2024 4:4 8pm [facility] Medical Records Department [address] [place] [address] Anesthesia Postop Eval II 05/16/24 1648 MR#: [id number] Acct: [id number] Name: LAISHA WALKER Rep #:[id number] : 1950 74 From: Reggie Murray MD PCP: Dr. Flako Tracy MD Status:AD M IN Y Race: C Location: [place] [address] Anesthesia Postop Eval I Sum Postop Eval Completion status Anesthesia document: Postop Eval 1 completed: Yes Anesthesia Postop Eval I Summary Anesthesia Postop Eval I Summary: Anesthesia Postop Eval I: Assessment Summary Airway patent Yes 05/16/24 16:37 [employer].TNES Spontaneous unlabored Yes 05/16/24 16:37 [employer]ER.TNES respirations Mental status nausea No 05/16/24 16:37 [employer] TE[employer]ER.TNES Vomiting No 05/16/24 16:37 [employer] TE[employer]ER.TNES Anesthesia Postop Eval I: Fluid Summary Crystalloid volume administer 100 05/16/24 16:37 [employer] TE[employer]ER.TNES (ml) Colloids volume administered ( ml) Blood Product volume administered (ml) Total IV fluid infused 100 05/16/24 16:37 [employer] TE[employer]ER.TNES Anesthesia Postop Eval I: Summary Notes Anesthesia Complication No 05/16/24 16:37 [employer] TE[employer]ER.TNES Anesthesia Complication Comment: Post-operative progress note Anesthesia: Postop Eval II Evaluation Mental status: Awake Pain Level: 0 nausea: No Vomiting: No 05/16/248 <Electronically signed by Reggie Murray MD > Date _ Reggie Cain Signature: Date CC: ~ Signed [facility] Work Phone: 1(397) 479-447703-12-2025 Consult note Author Link Suresh [facility] Note Date/Time May 16, 2024 4:3 8pm [facility] Medical Records Department [address] [place] [address] Anesthesia Postop Eval I 05/16/24 1637 MR#: [id number] Acct: [id number] Name: LAISHA WALKER Rep #:[id number] : 1950 74 From: Link VILLANUEVA PCP: Dr. Flako Tracy MD Status:AD M IN Y Race: C Location: [place] [address] Anesthesia: Postop Eval I Current Vital Signs Temperature: 98.9 F Pulse Rate: 102 Blood Pressure: 159/55 Respiratory Rate: 20 Pulse Ox: 93 Assessment Airway patent: Yes Spontaneous unlabored respirations: Yes nausea: No Vomiting: No Anesthesia Complication: No Fluid Hydration Crystalloid volume administer (ml): 100 Total IV fluid infused: 100 Progress Note Anesthesia document: Postop Eval 1 completed: Yes 05/16/241637 <Electronically signed by Link Suresh CRNA> Date _ Link Cain Signature: Date CC: ~ Signed [facility] Work Phone: 1(860) 679-275303-12-2025 Consult note Author Omer Jane [facility] Note Date/Time May 16, 2024 4:1 2pm [facility] Medical Records Department [address] [place] [address] Consultation - GI 05/16/24 1610 MR#: [id number] Acct: [id number] Name: LAISHA WALKER Rep #:[id number] : 1950 74 From: Omer Jane DO PCP: Dr. Flako Tracy MD Status:AD M IN Location: [place] [address] HPI Consult Data Date of Consult: 05/16/24 HPI Narrative Reason for Consultation: GI bleed HPI Narrative: LAISHA WALKER, is a 74 F who presents with complaints of nausea, vomiting, diarrhea and intermittent chest discomfort with patient not prescribed Tamiflu due to concerns that it may exacerbate her nausea and vomiting who [facility] [facility] planing of black liquid stools. Mrs. Walker reports her symptoms began approximately 2 days prior to admission with the abrupt-onset of black liquid stools that were voluminous. She also admits to associated lightheadedness, dizziness and falls on May 13, 2024 and May 14, 2024 but she denies loss of consciousness or significant head trauma with her falls along with fever up to 100.6 ?F earlier today which improved after acetaminophen. She denies similar previous episodes as her previous thrombosed external hemorrhoids are generally productive of bright red blood. She denies hematuria, back pain, polydipsia, polyphagia or polyuria. In the ER patient wasdiagnosed with suspected UGIB causing melanotic stools. [facility] Medical History HLD (hyperlipidemia) Cancer of kidney Cirrhosis of liver not due to alcohol Goiter Depression History of renal carcinoma Stage 3a chronic kidney disease (CKD) Bilateral carotid artery stenosis (10/27/20) Complete heart block Thrombosed external hemorrhoid Osteoporosis Cancer Irregular heart beat DVT (deep venous thrombosis) TIA (transient ischemic attack) Rectal pain Chronic anemia Obesity PAF (paroxysmal atrial fibrillation) Asthma Diabetes Hemorrhoids Arthritis Hypertension VTE (venous thromboembolism) CVA (cerebral vascular accident) Home Medications ?Medication ?Instructions ?Recorded ?Last Taken ?Type acetaminophen 325 mg tablet 1,000 mg PO QHS 06/26/16 0 06/29/16 History 1000 mg loratadine 10 mg tablet 10 mg PO QHS 30 days 7 Unknown Rx docusate sodium 100 mg capsule 200 mg PO QHS 01/21/23 Unknown History (Colace) multivitamin (Daily Multi-Vitamin 1 tab PO DAILY 01/21 Unknown History tablet) hydrocortisone 2.5 % topical cream 1 applic FL QD-BID PRN hemorrhoids 02/04/23 Unknown History with perineal applicator (Anusol-HC) promethazine 12.5 mg tablet 12.5 mg PO Q6H PRN nausea and 02/04/23 Unknown History vomiting losartan 25 mg tablet 12.5 mg (1/2 x 25 mg) PO ORION LY #45 08/15/23 Unknown Rx tabs metoprolol tartrate 50 mg tablet 50 mg PO BID #180 tab s 02/24/24 Unknown Rx rosuvastatin 20 mg tablet 20 mg PO QHS #90 tabs Unknown Rx glipizide 10 mg tablet, extended 10 mg PO BID 04/18/24 Unknown History release 24 hr ondansetron 4 mg disintegrating 4 mg PO Q8H PRN PRN Na usea #10 tabs 05/14/24 Unknown Rx tablet warfarin 2.5 mg tablet 2.5 mg PO MOTUWETH 05/15/24 Unknown History warfarin 5 mg tablet 5 mg PO .FRSASU 05/15/24 Unk nown History Allergy/AdvReac Type Severity Reaction Status Date / Time simvastatin Allergy Severe Unknown Verified 05/15/24 16:48 etodolac AdvReac Intermediate GI upset Verified 05/15/24 16:48 gabapentin AdvReac Intermediate dizziness Verified 05/15/24 16:48 NSAIDS (Non-Steroidal AdvReac Intermediate GI upset Verified 05/15/24 16:48 Anti-Inflamma sulfamethoxazole AdvReac Intermediate Sulfa Verified 05/15/24 16:48 drugs GI upset sulfametrole AdvReac Intermediate GI upset Verified 05/15/24 16:48 valdecoxib (From Bextra) AdvReac Intermediate GI upset Verified 05/15/24 16:48 atorvastatin AdvReac Unknown unknown Verified 05/15/24 16:48 codeine AdvReac Unknown unknown Verified 05/15/24 16:48 guaifenesin (From Entex LA) AdvReac Unknown unknown Verified 05/15/24 16:48 hydrocodone AdvReac Unknown unknown Verified 05/15/24 16:48 naproxen (From Naprosyn) AdvReac Unknown unknown Verified 05/15/24 16:48 phenylephrine (From Entex LA) AdvReac Unknown unknown Verified 05/15/24 16:48 phenylpropanolamine (From AdvReac Unknown unknown Verified 05/15/24 16:48 Entex LA) pravastatin AdvReac Unknown unknown Verified 05/15/24 16:48 quinapril (From Accupril) AdvReac Unknown Unknown Verified 05/15/24 16:48 rofecoxib (From Vioxx) AdvReac Unknown unknown Verified 05/15/24 16:48 Sulfa (Sulfonamide AdvReac Unknown Diarrhea Verified 05/15/24 16:48 Antibiotics) tramadol AdvReac Unknown unknown Verified 05/15/24 16:48 celecoxib (From Celebrex) AdvReac Nausea/Vom/ Verified 05/15/24 16:48 Diarrhea fluoxetine HCl (From Prozac) AdvReac Other Verified 05/15/24 16:48 isosorbide AdvReac Other Verified 05/15/24 16:48 metformin AdvReac Nausea/Vom/ Verified 05/15/24 16:48 Diarrhea Family History Mother CVA (cerebral vascular accident) Diabetes Heart disease Father CVA (cerebral vascular accident) Diabetes Heart disease 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 Surgical History S/P placement of cardiac pacemaker History of incision and drainage H/O partial nephrectomy History of hysterectomy History of knee replacement History of cholecystectomy History of shoulder surgery History of appendectomy Social History household members: spouse Smoking Status: Never smoker alcohol intake: never substance use type: does not use ROS Constitutional Constitutional: Denies fatigue, fever(s), poor appetite, weight gain or weight loss Gastrointestinal Gastrointestinal: Denies belching, bloating, change in bowel habits, change in stool character, chewing difficulty, coffee ground emesis, constipation, cramping, diarrhea, dyspepsia, dysphagia, early satiety, excessive flatus, fecalincontinence, heartburn, hematemesis, hematochezia, hemorrhoids, loose stools, melena, nausea, odynophagia, rectal bleeding, tenesmus, vomiting or weight changes Physical Exam Const alert, oriented x3, no apparent distress and healthy appearing General Appearance: cooperative GI normal to inspection, nondistended, normoactive bowel sounds, soft to palpation,non-tender and non-distended Percussion: normal to percussion Rectal Exam: deferred Lab / Micro Data 05/16/24 05:47 05/16/24 05:47 Labs: Laboratory Results - last 24 hr 05/15/24 17:15: WBC 7.2, RBC 4.16 L, Hgb 11.5 L, Hct 35.3 L, MCV 84.9, MCH 27.6,MCHC 32.6, RDW Std Deviation 45.5 H, RDW Coeff of Rukhsana 14.6, Plt Count 154, MPV 11.4, Immature Gran % (Auto) 0.400, Neut % (Auto) 67.4, Lymph % (Auto) 21.6, [place] % (Auto) 10.2 H, Eos % (Auto) 0.1, Baso % (Auto) 0.3, Absolute Neuts (auto) 4.8, Absolute Lymphs (auto) 1.55, Nucleated RBC % 0, PT 19.9 H, INR 1.7, Sodium 135, Potassium 3.8, Chloride 100, Carbon Dioxide 21.2, Anion Gap 13, BUN 27 H, Creatinine 1.23 H, Estim Creat Clear Calc 42.94 L, Est GFR (MDRD) Non-Af 46 L, BUN/Creatinine Ratio 22.1 H, Glucose 222 H, Calcium 9.2, Iron 15 L, TIBC 232 L, Iron Saturation 6.5 L, Unsaturated IBC 217 L, Ferritin 247, Total Bilirubin 0.67,AST 52 H, ALT 26, Alkaline Phosphatase 68, Total Protein 7.1, Albumin 3.6, Globulin 3.5, Albumin/Globulin Ratio 1.0 05/15/24 17:30: Blood Type O POSITIVE, Antibody Screen NEGATIVE 05/16/24 04:19: Urine Color Yellow, Urine Clarity Clear, Urine pH 6.0, Ur Specific Clyde 1.015, Urine Protein Negative, Urine Glucose (UA) Normal, UrineKetones Negative, Urine Occult Blood Negative, Urine Nitrite Negative, Urine Bilirubin Negative, Urine Urobilinogen Normal, Ur Leukocyte Esterase Negative, Urine RBC 0 SEEN, Urine WBC 0 SEEN, Ur Squamous Epith Cells 0 SEEN, Urine Bacteria 0 SEEN, Urine Mucus 0 SEEN 05/16/24 05:47: WBC 5.1, RBC 3.89 L, Hgb 10.7 L, Hct 33.0 L, MCV 84.8, MCH 27.5,MCHC 32.4, RDW Std Deviation 45.3 H, RDW Coeff of Rukhsana 14.6, Plt Count 141 L, MPV11.8, Immature Gran % (Auto) 0.200, Neut % (Auto) 62.9, Lymph % (Auto) 27.1, [place] % (Auto) 8.6, Eos % (Auto) 0.8, Baso % (Auto) 0.4, Absolute Neuts (auto) 3.2, Absolute Lymphs (auto) 1.38, Nucleated RBC % 0, PT 19.0 H, INR 1.6, Sodium 137, Potassium 3.9, Chloride 103, Carbon Dioxide 20.5 L, Anion Gap 13, BUN 19, Creatinine 0.97, Estim Creat Clear Calc 54.29, Est GFR (MDRD) Non-Af 60, BUN/Creatinine Ratio 19.7, Glucose 157 H, Hemoglobin A1c 8.0, Calcium 8.9, Phosphorus 2.5 L, Magnesium 1.8, Total Bilirubin 0.49, AST 45 H, ALT 22, AlkalinePhosphatase 62, Total Protein 6.7, Albumin 3.4, Globulin 3.3, Albumin/Globulin Ratio 1.0, TSH 1.170 05/16/24 12:06: POC Glucose 120 H Micro: Microbiology 05/15/24 17:15 Stool Stool Occult Blood (MANDY) - Final Imaging Radiology Impression Chest CT 05/16/24 02:30 IMPRESSION: Minor scarring. Versus subsegmental atelectasis within the left lung. No definite evidence of pneumonia. Other findings as above. One or more dose reduction techniques were used (e.g., Automated exposure control, adjustment of the mA and/or kV according to patient size, use of iterative reconstruction technique). Reading Location: [id number] Brain CT 05/16/24 02:39 IMPRESSION: Mild mucoperiosteal thickening involving the bilateral ethmoids. Correlate clinically for sinus disease. No acute intracranial hemorrhage, mass effect or midline shift. Reading Location: [id number] Assessment & Plan Assessment/Plan (1) GI bleed: PLAN: Very pleasant 74-year-old comes in with GI bleed suspect upper GI bleed source. She is on a PPI drip. Warfarin held (not causing the bleeding, but exacerbating it) Hg down slightly to 10.7 (from 11.5). She was explained alternatives, risk and benefits include not withstanding bleeding, infection, sepsis, perforation, need emergent urgent . She have an ASA of 3. Charges/Coding Visit Charges Inpatient E&M: 82092 Init Hosp L3 05/16/24 1612 <Electronically signed by Omer Jane DO> Cosigner Signature (if applicable): CC: Dr. Flako Tracy MD~ Signed [facility] Work Phone: [phone]) [phone] Consult note Author Reggie Murray [facility] Note Date/Time May 16, 2024 3:1 0pm [facility] Medical Records Department [address] [place] [address] Pre-Anesthesia Evaluation 05/16/24 1508 MR#: [id number] Acct: [id number] Name: LAISHA WALKER Rep #:[id number] : 1950 74 From: Reggie Murray MD PCP: Dr. Flako Tracy MD Status:AD M IN Y Race: C Location: [place] [address] 9 ASA Classification* ASA Classification ASA Classification: 3 Assessment & Plan Anesthesia* Anesthesia Assessment Anesthesia Assessment: Discussed sedation and/or anesthesia options, risks, benefits, and alternatives with patient/parents/legal guardian/POA. Questions invited. The patient/parents/legal guardian/POA seems to understand and agrees to proceedwith anesthesia plan. Reviewed the physical assessment, medical history, allergy history and patient home medications list prior to surgery/procedure/anesthetic and documented any changes. Performed airway and anesthesia risk assessments. Anesthesia Type Anesthesia Type: MAC (Pacemaker. complete heart block history) Anesthesia Focused Assessment* Temperature: 98.6 F Pulse Rate: 82 Blood Pressure: 121/45 Respiratory Rate: 16 Pulse Ox: 94 Airway Assessment Mouth opens: >3 cm Mallampati Score: II Focused Labs Anesthesia Preop lab: CBC WBC 5.1 K/mm3 (4.4-11.0) 05/16/24 05:47 05/16/24 RBC 3.89 M/mm3 (4.2-5.4) L 05/16/24 05:47 05/16/24 Hgb 10.7 g/dL (12.0-15.0) L 05/16/24 05:47 5 Hct 33.0 % (37-47) L 05/16/24 05:47 05/16/24 Plt Count 141 K/mm3 (150-450) L 05/16/24 05:47 05/16/24 CHEMISTRY Potassium 3.9 mmol/L (3.3-5.1) 05/16/24 05:47 05/16/24 Sodium 137 mmol/L (133-145) 05/16/24 05:47 05/16/24 Magnesium 1.8 mg/dL (1.5-2.2) 05/16/24 05:47 05/16/24 Phosphorus 2.5 mg/dL (2.7-4.5) L 05/16/24 05:47 05/16/24 BUN 19 mg/dL (4-19) 05/16/24 05:47 05/16/24 Creatinine 0.97 mg/dL (0.70-1.20) 05/16/24 05:47 05/16/24 Glucose 157 mg/dL (70-99) H 05/16/24 05:47 05/16/24 POC Glucose 120 mg/dL (74-106) H 05/16/24 12:06 05/16/24 TSH 1.170 uIU/mL (0.300-4.200) 05/16/24 05:47 05/05 05/01 COAG PT 19.0 SECONDS (11.7-14.9) H 05/16/24 05:47 05/05 05/01 INR 4.2 H 02/11/23 15:24 02/11/23 Pre-Assessment Diagnosis/Proposed Procedure Planned Operative Procedure(s): EGD Anesthesia History Anesthesia History - field operations coordinator: Anesthesia History - field operations coordinator Hx Hospitalization Yes: 06/2107/29/23 12:32 Any Problems With Anesthesia No: pt slow to wake from 05/16/24 14:39 general and nausea Cholinesterase deficiency No 05/16/24 14:39 You/Your Family Experience No 05/16/24 14:39 fever (hyperthermia) with Relationship Recent Exposure to Contagious Yes 05/16/24 14:39 Disease Does patient have nerve No 05/16/24 14:39 stimulator Patient instructed to have No 05/16/24 14:39 device shut off --Does patient have Pacemaker Yes 05/16/24 14:00 or ICD? When Was Last Pacemaker Check dr anna 04/1305/16/24 14:39 QUESTION #4 FULL TEXT: You/Your Family Experience fever (hyperthermia) with Anesthesia Last Oral Intake Last Oral intake: Last Oral Intake NPO since 00:00 05/16/24 14:00 Meds taken in AM with sips of No 05/16/24 14:00 water? Meds patient instructed to take am of surgery PONV PONV - field operations coordinator: PONV - field operations coordinator Female HX of Motion Sickness HX of N/V After Surgery Non-Smoker Duration of Surgery greater than 60 minutes Number of Risk Factors PONV Score Height & Weight Height & Weight: Anesthesia: Height & Weight Height 5 ft 4 in 05/16/24 14:00 Weight: 92.2 kg 05/16/24 14:00 Body Mass Index (BMI) 34.9 05/16/24 14:00 Respiratory Assessment Respiratory Assessment - field operations coordinator: Respiratory Tract Infection Hx - field operations coordinator Hx Respiratory Tract Infection Yes: flu a + 05/16/24 14:39 STOP Sleep Apnea STOP Sleep Apnea - field operations coordinator: STOP Sleep Apnea - field operations coordinator Hx Hypertension Yes 05/16/24 11:44 Hx Sleep Apnea No 05/15/24 23:23 CPAP No 05/15/24 23:23 BIPAP No 05/15/24 23:23 Do you snore loudly (louder No 05/15/24 23:23 than talking or can be heard Do you often feel tired/ No 05/15/24 23:23 fatigued/ sleepy during daytime? Has anyone observed you stop No 05/15/24 23:23 breathing during sleep? STOP Results Negative 05/15/24 23:23 QUESTION #5 FULL TEXT : Do you snore loudly (louder than talking or can be heard through closed doors)? Tobacco Use History Tobacco Use History - field operations coordinator: Tobacco Use History - field operations coordinator Tobacco Use Smoking Status Never smoker 05/15/24 23:23 Hx Tobacco Use No 05/15/24 23:23 Years Smoking Packs Smoked per Day Smoking Cessation Date was within the last 15 years Hx Smoking Cessation Date Hx Smoking Cessation No 05/15/24 23:23 Counseling Hematologic Medial History Hematologic Hx - field operations coordinator: Hematologic Medical Hx - net architect Hx of Blood Transfusion Yes 05/15/24 23:23 Hx of Transfusion in last 3 No 05/15/24 23:23 Months Date of Last Transfusion (if within last 3 months) Ever experience any problems No 05/15/24 23:23 with transfusion(s)? Specify any problems Hx of Preganancy in last 3 No 05/15/24 23:23 Months Nurse Filling Out Transfusion AMARTHEY 05/15/24 23:23 & Questions: Date: 05/15/24 05/15/24 23:23 Time: 23:30 05/15/24 23:23 Patient unable to answer at this time (ie. confused, unrespo /Reproduction History /Reproductive History - field operations coordinator: /Reproductive Hx- field operations coordinator Hx Now No 05/16/24 14:39 Gestational Age (in weeks): EDC: Hx Hx Para Hx Section SAB No 05/16/24 14:39 Active Medications Active Medications: Current Medications Generic Name Dose Route Start Last Admin Trade Name Freq PRN Reason Stop Dose Admin Glucagon 1 mg 05/15/24 23:22 Glucagon 1 Mg/Ml Syringe IM X1 PRN HYPOGLYCEMIA Protocol Pantoprazole Sodium 80 mg/ 100 mls @ 10 mls/hr 05/15/24 22:34 05/16/24 10:05 Sodium Chloride CONT INF 10 mls/hr Q10H PREET Administration Sodium Chloride 1,000 mls @ 100 mls/hr 05/15/24 22:34 05/16/24 12:29 IV 05/16/24 18:33 100 mls/hr .Q10H PREET Administration Protocol Dextrose 250 mls @ 0 mls/hr 05/15/24 23:22 Dextrose 10%-Water IV .Q0M PRN HYPOGLYCEMIA Protocol As Directed Sodium Chloride 100 mls @ 15 mls/hr 05/15/24 23:34 IV .Q6H40M PRN Saline Flush Sodium Chloride 100 mls @ 15 mls/hr 05/15/24 23:34 IV .Q6H40M PRN Additional IVPB Infusion Ceftriaxone Sodium 1 gm in 50 mls @ 100 mls/hr 05/16/24 02:35 05/16/24 04:54 Rocephin IV Infused QHS PREET Infusion Azithromycin 500 mg/ Sodium 255 mls @ 255 mls/hr 05/16/24 02:35 05/16/24 04:59 Chloride IV 0 mls/hr QHS PREET Infusion Insulin Human Lispro 0 unit 05/16/24 00:00 05/16/24 13:14 Insulin Lispro 100 Unit/Ml Insuln.Pen SC Not Given Q6 [facility] Protocol Ondansetron HCl 4 mg 05/15/24 23:22 Ondansetron 4 Mg/2 Ml Vial IV Q6H PRN PRN NAUSEA/VOMITING Promethazine HCl 12.5 mg 05/15/24 23:22 Promethazine 25 Mg/Ml Syringe IM Q6H PRN PRN Breakthrough Nausea/Vomiting Sodium Chloride 10 - 40 ml 05/15/24 23:34 05/16/24 04:24 0.9% Saline Lock 10 Ml Syringe IV 10 ml UD PRN Administration SALINE FLUSH PFSH Medical History HLD (hyperlipidemia) Cancer of kidney Cirrhosis of liver not due to alcohol Goiter Depression History of renal carcinoma Stage 3a chronic kidney disease (CKD) Bilateral carotid artery stenosis (10/27/20) Complete heart block Thrombosed external hemorrhoid Osteoporosis Cancer Irregular heart beat DVT (deep venous thrombosis) TIA (transient ischemic attack) Rectal pain Chronic anemia Obesity PAF (paroxysmal atrial fibrillation) Asthma Diabetes Hemorrhoids Arthritis Hypertension VTE (venous thromboembolism) CVA (cerebral vascular accident) Home Medications ?Medication ?Instructions ?Recorded ?Last Taken ?Type acetaminophen 325 mg tablet 1,000 mg PO QHS 06/26/16 0 06/29/16 History 1000 mg loratadine 10 mg tablet 10 mg PO QHS 30 days 7 Unknown Rx docusate sodium 100 mg capsule 200 mg PO QHS 01/21/23 Unknown History (Colace) multivitamin (Daily Multi-Vitamin 1 tab PO DAILY 01/21 Unknown History tablet) hydrocortisone 2.5 % topical cream 1 applic FL QD-BID PRN hemorrhoids 02/04/23 Unknown History with perineal applicator (Anusol-HC) promethazine 12.5 mg tablet 12.5 mg PO Q6H PRN nausea and 02/04/23 Unknown History vomiting losartan 25 mg tablet 12.5 mg (1/2 x 25 mg) PO ORION LY #45 08/15/23 Unknown Rx tabs metoprolol tartrate 50 mg tablet 50 mg PO BID #180 tab s 02/24/24 Unknown Rx rosuvastatin 20 mg tablet 20 mg PO QHS #90 tabs Unknown Rx glipizide 10 mg tablet, extended 10 mg PO BID 04/18/24 Unknown History release 24 hr ondansetron 4 mg disintegrating 4 mg PO Q8H PRN PRN Na usea #10 tabs 05/14/24 Unknown Rx tablet warfarin 2.5 mg tablet 2.5 mg PO MOTUWETH 05/15/24 Unknown History warfarin 5 mg tablet 5 mg PO .FRSASU 05/15/24 Unk nown History Allergy/AdvReac Type Severity Reaction Status Date / Time simvastatin Allergy Severe Unknown Verified 05/15/24 16:48 etodolac AdvReac Intermediate GI upset Verified 05/15/24 16:48 gabapentin AdvReac Intermediate dizziness Verified 05/15/24 16:48 NSAIDS (Non-Steroidal AdvReac Intermediate GI upset Verified 05/15/24 16:48 Anti-Inflamma sulfamethoxazole AdvReac Intermediate Sulfa Verified 05/15/24 16:48 drugs GI upset sulfametrole AdvReac Intermediate GI upset Verified 05/15/24 16:48 valdecoxib (From Bextra) AdvReac Intermediate GI upset Verified 05/15/24 16:48 atorvastatin AdvReac Unknown unknown Verified 05/15/24 16:48 codeine AdvReac Unknown unknown Verified 05/15/24 16:48 guaifenesin (From Entex LA) AdvReac Unknown unknown Verified 05/15/24 16:48 hydrocodone AdvReac Unknown unknown Verified 05/15/24 16:48 naproxen (From Naprosyn) AdvReac Unknown unknown Verified 05/15/24 16:48 phenylephrine (From Entex LA) AdvReac Unknown unknown Verified 05/15/24 16:48 phenylpropanolamine (From AdvReac Unknown unknown Verified 05/15/24 16:48 Entex LA) pravastatin AdvReac Unknown unknown Verified 05/15/24 16:48 quinapril (From Accupril) AdvReac Unknown Unknown Verified 05/15/24 16:48 rofecoxib (From Vioxx) AdvReac Unknown unknown Verified 05/15/24 16:48 Sulfa (Sulfonamide AdvReac Unknown Diarrhea Verified 05/15/24 16:48 Antibiotics) tramadol AdvReac Unknown unknown Verified 05/15/24 16:48 celecoxib (From Celebrex) AdvReac Nausea/Vom/ Verified 05/15/24 16:48 Diarrhea fluoxetine HCl (From Prozac) AdvReac Other Verified 05/15/24 16:48 isosorbide AdvReac Other Verified 05/15/24 16:48 metformin AdvReac Nausea/Vom/ Verified 05/15/24 16:48 Diarrhea Family History Mother CVA (cerebral vascular accident) Diabetes Heart disease Father CVA (cerebral vascular accident) Diabetes Heart disease Other USP (current) use of 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 Surgical History S/P placement of cardiac pacemaker History of incision and drainage H/O partial nephrectomy History of hysterectomy History of knee replacement History of cholecystectomy History of shoulder surgery History of appendectomy Social History household members: spouse Smoking Status: Never smoker alcohol intake: never substance use type: does not use Review of Systems (Anesthesia) ROS Narrative System reviewed and no additional complaints, except as documented. 05/16/24 1510 <Electronically signed by Reggie Murray MD > Date _ Reggie Murray MD Cosigner Signature: Date CC: ~ Signed [facility] Work Phone: [phone]) 533-565003-12-2025 Progress note Author Adonis Lvoe [facility] Note Date/Time May 16, 2024 3:0 8pm [facility] Medical Records Department [address] [place] [address] Progress Note - Hospitalist 05/16/24 0840 MR#: [id number] Acct: [id number] Name: LAISHA WALKER Rep #:[id number] : 1950 74 From: Adonis Love DO PCP: Dr. Flako rTacy MD Status:AD M IN Location: [place] [address] Reason for Visit Reason for Visit: Diagnoses Obesity, unspecified (05/15/24) Paroxysmal atrial fibrillation (05/15/24) Influenza due to other identified influenza virus with other respiratory manifestations (05/15/24) Chronic maxillary sinusitis (05/15/24) Chronic ethmoidal sinusitis (05/15/24) Unspecified cirrhosis of liver (05/15/24) Melena (05/15/24) Gastrointestinal hemorrhage, unspecified (05/15/24) Adverse effect of unspecified drugs, medicaments and biological substances, initial encounter (05/15/24) Subjective Subjective No further melena. Feeling well. Objective Data Objective Data Vital Signs: Vital Signs Temp Pulse Resp BP Pulse Ox O2 Del Method 37.6 C H 74 18 158/60 H 94 Room Air 05/15/24 23:23 05/15/24 23:23 05/15/24 23:23 05/15/24 23:23 05/15/24 23:23 05/15/24 23:23 Oxygen Delivery Method Room Air Weight: 92.2 kg Body Mass Index (BMI) 34.9 Intake & Output: Intake and Output for Last 24 Hours 05/14/24 05/15/24 05/16/24 23:59 23:59 23:59 Intake Total 610 / 610 461.50 / 461.50 Balance 610 / 610 461.50 / 461.50 Lab / Micro Data 05/16/24 05:47 05/16/24 05:47 Labs: Laboratory Results - last 24 hr 05/15/24 17:15: WBC 7.2, RBC 4.16 L, Hgb 11.5 L, Hct 35.3 L, MCV 84.9, MCH 27.6,MCHC 32.6, RDW Std Deviation 45.5 H, RDW Coeff of Rukhsana 14.6, Plt Count 154, MPV 11.4, Immature Gran % (Auto) 0.400, Neut % (Auto) 67.4, Lymph % (Auto) 21.6, [place] % (Auto) 10.2 H, Eos % (Auto) 0.1, Baso % (Auto) 0.3, Absolute Neuts (auto) 4.8, Absolute Lymphs (auto) 1.55, Nucleated RBC % 0, PT 19.9 H, INR 1.7, Sodium 135, Potassium 3.8, Chloride 100, Carbon Dioxide 21.2, Anion Gap 13, BUN 27 H, Creatinine 1.23 H, Estim Creat Clear Calc 42.94 L, Est GFR (MDRD) Non-Af 46 L, BUN/Creatinine Ratio 22.1 H, Glucose 222 H, Calcium 9.2, Iron 15 L, TIBC 232 L, Iron Saturation 6.5 L, Unsaturated IBC 217 L, Ferritin 247, Total Bilirubin 0.67,AST 52 H, ALT 26, Alkaline Phosphatase 68, Total Protein 7.1, Albumin 3.6, Globulin 3.5, Albumin/Globulin Ratio 1.0 05/15/24 17:30: Blood Type O POSITIVE, Antibody Screen NEGATIVE 05/16/24 05:47: WBC 5.1, RBC 3.89 L, Hgb 10.7 L, Hct 33.0 L, MCV 84.8, MCH 27.5,MCHC 32.4, RDW Std Deviation 45.3 H, RDW Coeff of Rukhsana 14.6, Plt Count 141 L, MPV11.8, Immature Gran % (Auto) 0.200, Neut % (Auto) 62.9, Lymph % (Auto) 27.1, [place] % (Auto) 8.6, Eos % (Auto) 0.8, Baso % (Auto) 0.4, Absolute Neuts (auto) 3.2, Absolute Lymphs (auto) 1.38, Nucleated RBC % 0, PT 19.0 H, INR 1.6, Sodium 137, Potassium 3.9, Chloride 103, Carbon Dioxide 20.5 L, Anion Gap 13, BUN 19, Creatinine 0.97, Estim Creat Clear Calc 54.29, Est GFR (MDRD) Non-Af 60, BUN/Creatinine Ratio 19.7, Glucose 157 H, Hemoglobin A1c 8.0, Calcium 8.9, Phosphorus 2.5 L, Magnesium 1.8, Total Bilirubin 0.49, AST 45 H, ALT 22, AlkalinePhosphatase 62, Total Protein 6.7, Albumin 3.4, Globulin 3.3, Albumin/Globulin Ratio 1.0, TSH 1.170 Micro: Microbiology 05/15/24 17:15 Stool Stool Occult Blood (MANDY) - Final Radiography Diagnostic Testing: Radiology Impression Chest CT 05/16/24 02:30 IMPRESSION: Minor scarring. Versus subsegmental atelectasis within the left lung. No definite evidence of pneumonia. Other findings as above. One or more dose reduction techniques were used (e.g., Automated exposure control, adjustment of the mA and/or kV according to patient size, use of iterative reconstruction technique). Reading Location: [facility] Brain CT 05/16/24 02:39 IMPRESSION: Mild mucoperiosteal thickening involving the bilateral ethmoids. Correlate clinically for sinus disease. No acute intracranial hemorrhage, mass effect or midline shift. Reading Location: [facility] Physical Exam Const alert and no apparent distress Constitutional Narrative: up in chair. HEENT head/scalp atraumatic and moist oral mucous membranes Resp normal respiratory effort, no retractions, no use of accessory muscles and clearto auscultation bilaterally Cardio regular rate, regular rhythm, S1 normal heart sound and S2 normal heart sound GI normal to inspection, nondistended, normoactive bowel sounds, soft to palpation and non-distended GI Narrative: TTP Extremity normal to inspection Assessment & Plan Assessment/Plan (1) GI bleed: PLAN: PPI gtt. Unclear source, but suspect upper source. Warfarin held (not causing the bleeding, but exacerbating it) Hg down slightly to 10.7 (from 11.5). GI consult for endoscopy. PLAN: Plan Chronic conditions: * pAfib: warfarin held given GIB. Continue metoprolol * HTN: losartan * DM2: glipizide held. SSI. VTE prophylaxis: SCDs. Charges/Coding Visit Charges Inpatient E&M: 72412 Subs Hosp L2 05/16/24 1508 <Electronically signed by Adonis Love DO> Cosigner Signature (if applicable): CC: ~ Signed [facility] Work Phone: 1(572) 806-367503-12-2025 Consult note [facility] Medical Records Department [address] [place] [address] Anesthesia Postop Eval II 05/16/24 1648 MR#: [id number] Acct: [id number] Name: LAISHA WALKER Rep #:[id number] : 1950 74 From: Reggie Murray MD PCP: Dr. Flako Tracy MD Status:AD M IN Y Race: C Location: [address] Anesthesia Postop Eval I Sum Postop Eval Completion status Anesthesia document: Postop Eval 1 completed: Yes Anesthesia Postop Eval I Summary Anesthesia Postop Eval I Summary: Anesthesia Postop Eval I: Assessment Summary Airway patent Yes 05/16/24 16:37 AGRICULTURAL ECONOMICS TEACHER.TNES Spontaneous unlabored Yes 05/16/24 16:37 AGRICULTURAL ECONOMICS TEACHER.TNES respirations Mental status nausea No 05/16/24 16:37 AGRICULTURAL ECONOMICS TEACHER.TNES Vomiting No 05/16/24 16:37 AGRICULTURAL ECONOMICS TEACHER.TNES Anesthesia Postop Eval I: Fluid Summary Crystalloid volume administer 100 05/16/24 16:37 AGRICULTURAL ECONOMICS TEACHER.TNES (ml) Colloids volume administered ( ml) Blood Product volume administered (ml) Total IV fluid infused 100 05/16/24 16:37 AGRICULTURAL ECONOMICS TEACHER.TNES Anesthesia Postop Eval I: Summary Notes Anesthesia Complication No 05/16/24 16:37 AGRICULTURAL ECONOMICS TEACHER.TNES Anesthesia Complication Comment: Post-operative progress note Anesthesia: Postop Eval II Evaluation Mental status: Awake Pain Level: 0 nausea: No Vomiting: No 05/16/24 1648 > Date _ Reggie Murray MD Cosigner Signature: Date CC: ~ Signed [facility]03-12-2025 Consult note [facility] Medical Records Department [address] [place] [address] Anesthesia Postop Eval I 05/16/24 1637 MR#: [id number] Acct: [id number] Name: LAISHA WALKER Rep #:[id number] : 1950 74 From: Link VILLANUEVA PCP: Dr. Flako Tracy MD Status:AD M IN Y Race: C Location: [place] [address] Anesthesia: Postop Eval I Current Vital Signs Temperature: 98.9 F Pulse Rate: 102 Blood Pressure: 159/55 Respiratory Rate: 20 Pulse Ox: 93 Assessment Airway patent: Yes Spontaneous unlabored respirations: Yes nausea: No Vomiting: No Anesthesia Complication: No Fluid Hydration Crystalloid volume administer (ml): 100 Total IV fluid infused: 100 Progress Note Anesthesia document: Postop Eval 1 completed: Yes 05/16/241637 AGRICULTURAL ECONOMICS TEACHER> Date _ Link Suresh AGRICULTURAL ECONOMICS TEACHER Cosigner Signature: Date CC: ~ Signed [facility]03-12-2025 Procedure note [facility] Medical Records Department [address] [place] [address] EGD Report MR#: [id number] Acct: [id number] Name: LAISHA WALKER Rep #:[id number] : 1950 74 From: Omer Jane DO PCP: Dr. Flako Tracy MD Status:AD M IN Patient Name: Laisha Walker Procedure Date: 05/16/2024 4:03 PM Date of : 1950 Age: 74 Procedure: Upper GI endoscopy Indications: Epigastric abdominal pain, Melena Providers: Omer Jane DO Medicines: Monitored Anesthesia Care Patient Profile: This is a 74 year old female. Refer to note in patient chart for documentation of history and physical. Patient has symptoms of acute epigastric abdominal pain. Complications: No immediate complications. Procedure: Pre-Anesthesia Assessment: - Prior to the procedure, a History and Physical was performed, and patient medications and allergies were reviewed. The patient is competent. The risks and benefits of the procedure and the sedation options and risks were discussed with the patient. All questions were answered and informed consent was obtained. Patient identification and proposed procedure were verified by the physician in the pre-procedure area. Mental Status Examination: alert and oriented. Airway Examination: normal oropharyngeal airway and neck mobility. Respiratory Examination: clear to auscultation. CV Examination: normal. ASA Grade Assessment: II - A patient with mild systemic disease. After reviewing the risks and benefits, the patient was deemed in satisfactory condition to undergo the procedure. The anesthesia plan was to use monitored anesthesia care (MAC). Immediately prior to administration of medications, the patient was re-assessed for adequacy to receive sedatives. The heart rate, respiratory rate, oxygen saturations, blood pressure, adequacy of pulmonary ventilation, and response to care were monitored throughout the procedure. The physical status of the patient was re-assessed after the procedure. After obtaining informed consent, the endoscope was passed under direct vision. Throughout the procedure, the patient's blood pressure, pulse, and oxygen saturations were monitored continuously. The Endoscope was introduced through the mouth, and advanced to the third part of the duodenum. Small bowel enteroscopy was deemed necessary. The upper GI endoscopy was accomplished without difficulty. The patient tolerated the procedure well. Scope In: 4:22:44 PM Scope Out: 4:25:39 PM Total Procedure Duration Time 0 hours 2 minutes 55 seconds Findings: The examined esophagus was normal. A small hiatal hernia was present. No other significant abnormalities were identified in a careful examination of the stomach. One non-bleeding cratered duodenal ulcer with pigmented material was found in the first portion of the duodenum. The lesion was 20 mm in largest dimension. Impression: - No specimens collected. Recommendation: - Discharge patient to home. - Full liquid diet today. - No aspirin, ibuprofen, naproxen, or other non-steroidal anti-inflammatory drugs for 12 weeks. - Use Protonix (pantoprazole) 40 mg PO BID for 3 months. - Use sucralfate tablets 1 gram PO QID for 2 months. Procedure Code(s): --- Professional --- 17859, Small intestinal endoscopy, enteroscopy beyond second portion of duodenum, not including ileum; diagnostic, including collection of specimen(s) by brushing or washing, when performed (separate procedure) CPT copyright 2021 [employer]. All rights reserved. The codes documented in this report are preliminary and upon gallery or museum guide review may be revised to meet current compliance requirements. Omer Jane DO 05/16/2024 4:30:46 PM This report has been signed electronically. Number of Addenda: 0 Note Initiated On: 05/16/2024 4:03 PM 05/16/24 1630 Date _ Omer Jane DO Cosigner Signature: Date (if indicated) CC: Dr. Flako Tracy MD; Omer Jane DO ~ Date Dictated: 05/16/24 1603 Date Transcribed: Account Group Supervisor: RF Signed [facility]03-12-2025 Procedure note [facility] Medical Records Department [address] [place] [address] Operative Report - CC Letter MR#: [id number] Acct: [id number] Name: LAISHA WALKER Rep #:[id number] : 1950 74 From: Omer Jane DO PCP: Dr. Flako Tracy MD Status:AD M IN 05/16/2024 Flako Tracy [address] [place] [address] Re : Upper GI endoscopy procedure for Laisha Walker Dear Dr. Tracy This procedure was performed on Thursday, May 16, 2024. My impressions and recommendations are as follows: Impressions : - No specimens collected. Recommendations : - Discharge patient to home. - Full liquid diet today. - No aspirin, ibuprofen, naproxen, or other non-steroidal anti-inflammatory drugs for 12 weeks. - Use Protonix (pantoprazole) 40 mg PO BID for 3 months. - Use sucralfate tablets 1 gram PO QID for 2 months. My findings are described in the full procedure note, which is enclosed. If I can be of further assistance, please feel free to contact me at . Sincerely, Omer Jane DO 05/16/2024 4:30:46 PM This report has been signed electronically. 05/16/24 1630 Date _ Omer Jane DO Cosigner Signature: Date (if indicated) CC: Dr. South Jesus DO; Dr. Adonis Love DO; Dr. Flako Trayc MD ~ Date Dictated: 05/16/24 1603 Date Transcribed: Account Group Supervisor: RF Signed [facility]03-12-2025 Consult note [facility] Medical Records Department [address] [place] [address] Consultation - GI 05/16/24 1610 MR#: [id number] Acct: [id number] Name: LAISHA WALKER Rep #:[id number] : 1950 74 From: Omer Jane DO PCP: Dr. Flako Tracy MD Status:AD M IN Location: [place] [address] HPI Consult Data Date of Consult: 05/16/24 HPI Narrative Reason for Consultation: GI bleed HPI Narrative: LASIHA WALKER, is a 74 F who presents with complaints of nausea, vomiting, diarrhea and intermittent chest discomfort with patient not prescribed Tamiflu due to concerns that it may exacerbate her nausea and vomiting who presents to [facility] ER planing of black liquid stools. Mrs. Walker reports her symptoms began approximately 2 days prior to admission with the abrupt-onset of black liquid stools that were voluminous. She also admits to associated lightheadedness, dizziness and falls on May 13, 2024 and May 14, 2024 but she denies loss of consciousness or significant head trauma with her falls along with fever up to 100.6 ?F earlier today which improved after acetaminophen. She denies similar previous episodes as her previous thrombosed external hemorrhoids are generally productive of bright red blood. She denies hematuria, back pain, polydipsia, polyphagia or polyuria.In the ER patient wasdiagnosed with suspected UGIB causing melanotic stools. [facility] Medical History HLD (hyperlipidemia) Cancer of kidney Cirrhosis of liver not due to alcohol Goiter Depression History of renal carcinoma Stage 3a chronic kidney disease (CKD) Bilateral carotid artery stenosis (10/27/20) Complete heart block Thrombosed external hemorrhoid Osteoporosis Cancer Irregular heart beat DVT (deep venous thrombosis) TIA (transient ischemic attack) Rectal pain Chronic anemia Obesity PAF (paroxysmal atrial fibrillation) Asthma Diabetes Hemorrhoids Arthritis Hypertension VTE (venous thromboembolism) CVA (cerebral vascular accident) Home Medications ?Medication ?Instructions ?Recorded ?Last Taken ?Type acetaminophen 325 mg tablet 1,000 mg PO QHS 06/26/16 0 06/29/16 History 1000 mg loratadine 10 mg tablet 10 mg PO QHS 30 days 7 Unknown Rx docusate sodium 100 mg capsule 200 mg PO QHS 01/21/23 Unknown History (Colace) multivitamin (Daily Multi-Vitamin 1 tab PO DAILY 01/21 Unknown History tablet) hydrocortisone 2.5 % topical cream 1 applic FL QD-BID PRN hemorrhoids 02/04/23 Unknown History with perineal applicator (Anusol-HC) promethazine 12.5 mg tablet 12.5 mg PO Q6H PRN nausea and 02/04/23 Unknown History vomiting losartan 25 mg tablet 12.5 mg (1/2 x 25 mg) PO ORION LY #45 08/15/23 Unknown Rx tabs metoprolol tartrate 50 mg tablet 50 mg PO BID #180 tab s 02/24/24 Unknown Rx rosuvastatin 20 mg tablet 20 mg PO QHS #90 tabs Unknown Rx glipizide 10 mg tablet, extended 10 mg PO BID 04/18/24 Unknown History release 24 hr ondansetron 4 mg disintegrating 4 mg PO Q8H PRN PRN Na usea #10 tabs 05/14/24 Unknown Rx tablet warfarin 2.5 mg tablet 2.5 mg PO MOTUWETH 05/15/24 Unknown History warfarin 5 mg tablet 5 mg PO .FRSASU 05/15/24 Unk nown History Allergy/AdvReac Type Severity Reaction Status Date / Time simvastatin Allergy Severe Unknown Verified 05/15/24 16:48 etodolac AdvReac Intermediate GI upset Verified 05/15/24 16:48 gabapentin AdvReac Intermediate dizziness Verified 05/15/24 16:48 NSAIDS (Non-Steroidal AdvReac Intermediate GI upset Verified 05/15/24 16:48 Anti-Inflamma sulfamethoxazole AdvReac Intermediate Sulfa Verified 05/15/24 16:48 drugs GI upset sulfametrole AdvReac Intermediate GI upset Verified 05/15/24 16:48 valdecoxib (From Bextra) AdvReac Intermediate GI upset Verified 05/15/24 16:48 atorvastatin AdvReac Unknown unknown Verified 05/15/24 16:48 codeine AdvReac Unknown unknown Verified 05/15/24 16:48 guaifenesin (From Entex [place]) AdvReac Unknown unknown Verified 05/15/24 16:48 hydrocodone AdvReac Unknown unknown Verified 05/15/24 16:48 naproxen (From Naprosyn) AdvReac Unknown unknown Verified 05/15/24 16:48 phenylephrine (From Entex [place]) AdvReac Unknown unknown Verified 05/15/24 16:48 phenylpropanolamine (From AdvReac Unknown unknown Verified 05/15/24 16:48 Entex [place]) pravastatin AdvReac Unknown unknown Verified 05/15/24 16:48 quinapril (From Accupril) AdvReac Unknown Unknown Verified 05/15/24 16:48 rofecoxib (From Vioxx) AdvReac Unknown unknown Verified 05/15/24 16:48 Sulfa (Sulfonamide AdvReac Unknown Diarrhea Verified 05/15/24 16:48 Antibiotics) tramadol AdvReac Unknown unknown Verified 05/15/24 16:48 celecoxib (From Celebrex) AdvReac Nausea/Vom/ Verified 05/15/24 16:48 Diarrhea fluoxetine HCl (From Prozac) AdvReac Other Verified 05/15/24 16:48 isosorbide AdvReac Other Verified 05/15/24 16:48 metformin AdvReac Nausea/Vom/ Verified 05/15/24 16:48 Diarrhea Family History Mother CVA (cerebral vascular accident) Diabetes Heart disease Father CVA (cerebral vascular accident) Diabetes Heart disease 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 Surgical History S/P placement of cardiac pacemaker History of incision and drainage H/O partial nephrectomy History of hysterectomy History of knee replacement History of cholecystectomy History of shoulder surgery History of appendectomy Social History household members: spouse Smoking Status: Never smoker alcohol intake: never substance use type: does not use ROS Constitutional Constitutional: Denies fatigue, fever(s), poor appetite, weight gain or weight loss Gastrointestinal Gastrointestinal: Denies belching, bloating, change in bowel habits, change in stool character, chewing difficulty, coffee ground emesis, constipation, cramping, diarrhea, dyspepsia, dysphagia, earlysatiety, excessive flatus, fecalincontinence, heartburn, hematemesis, hematochezia, hemorrhoids, loose stools, melena, nausea, odynophagia, rectal bleeding, tenesmus, vomiting or weight changes Physical Exam Const alert, oriented x3, no apparent distress and healthy appearing General Appearance: cooperative GI normal to inspection, nondistended, normoactive bowel sounds, soft to palpation,non-tender and non-distended Percussion: normal to percussion Rectal Exam: deferred Lab / Micro Data 05/16/24 05:47 05/16/24 05:47 Labs: Laboratory Results - last 24 hr 05/15/24 17:15: WBC 7.2, RBC 4.16 L, Hgb 11.5 L, Hct 35.3 L, MCV 84.9, MCH 27.6,MCHC 32.6, RDW Std Deviation 45.5 H, RDW Coeff of Rukhsana 14.6, Plt Count 154, MPV 11.4, Immature Gran % (Auto) 0.400, Neut% (Auto) 67.4, Lymph % (Auto) 21.6, [place] % (Auto) 10.2 H, Eos % (Auto) 0.1, Baso % (Auto) 0.3, Absolute Neuts (auto) 4.8, Absolute Lymphs (auto) 1.55, Nucleated RBC % 0, PT 19.9 H, INR 1.7, Sodium 135, Potassium 3.8, Chloride 100, Carbon Dioxide 21.2, Anion Gap 13, BUN 27 H, Creatinine 1.23 H, Estim Creat Clear Calc 42.94 L, Est GFR (MDRD) Non-Af 46 L, BUN/Creatinine Ratio 22.1 H, Glucose 222 H, Calcium 9.2, Iron 15 L, TIBC 232 L, Iron Saturation 6.5 L, Unsaturated IBC 217 L, Ferritin 247, Total Bilirubin 0.67,AST 52 H, ALT 26, Alkaline Phosphatase 68, Total Protein 7.1, Albumin 3.6, Globulin3.5, Albumin/Globulin Ratio 1.0 05/15/24 17:30: Blood Type O POSITIVE, Antibody Screen NEGATIVE 05/16/24 04:19: Urine Color Yellow, Urine Clarity Clear, Urine pH 6.0, Ur Specific [place] 1.015, Urine Protein Negative, Urine Glucose (UA) Normal, UrineKetones Negative, Urine Occult Blood Negative, Urine Nitrite Negative, Urine Bilirubin Negative, Urine Urobilinogen Normal, Ur Leukocyte Esterase Negative, Urine RBC 0 SEEN, Urine WBC 0 SEEN, Ur Squamous Epith Cells 0 SEEN, Urine Bacteria 0 SEEN, Urine Mucus 0 SEEN 05/16/24 05:47: WBC 5.1, RBC 3.89 L, Hgb 10.7 L, Hct 33.0 L, MCV 84.8, MCH 27.5,MCHC 32.4, RDW Std Deviation 45.3 H, RDW Coeff of Rukhsana 14.6, Plt Count 141 L, MPV11.8, Immature Gran % (Auto) 0.200, Neut % (Auto) 62.9, Lymph % (Auto) 27.1, [place] % (Auto) 8.6, Eos % (Auto) 0.8, Baso % (Auto) 0.4, Absolute Neuts (auto) 3.2, Absolute Lymphs (auto) 1.38, Nucleated RBC % 0, PT 19.0 H, INR 1.6, Sodium 137,Potassium 3.9, Chloride 103, Carbon Dioxide 20.5 L, Anion Gap 13, BUN 19, Creatinine 0.97, Estim Creat Clear Calc 54.29, Est GFR (MDRD) Non-Af 60, BUN/Creatinine Ratio 19.7, Glucose 157 H, JcdgaeqvoaD5h 8.0, Calcium 8.9, Phosphorus 2.5 L, Magnesium 1.8, Total Bilirubin 0.49, AST 45 H, ALT 22, Alkal inePhosphatase 62, Total Protein 6.7, Albumin 3.4, Globulin 3.3, Albumin/Globulin Ratio 1.0, TSH 1.170 05/16/24 12:06: POC Glucose 120 H Micro: Microbiology 05/15/24 17:15 Stool Stool Occult Blood (MANDY) - Final Imaging Radiology Impression Chest CT 05/16/24 02:30 IMPRESSION: Minor scarring. Versus subsegmental atelectasis within the left lung. No definite evidence of pneumonia. Other findings as above. One or more dose reduction techniques were used (e.g., Automated exposure control, adjustment of the mA and/or kV according to patient size, use of iterative reconstruction technique). Reading Location: [facility] Brain CT 05/16/24 02:39 IMPRESSION: Mild mucoperiosteal thickening involving the bilateral ethmoids. Correlate clinically for sinus disease. No acute intracranial hemorrhage, mass effect or midline shift. Reading Location: [facility] Assessment & Plan Assessment/Plan (1) GI bleed: PLAN: Very pleasant 74-year-old comes in with GI bleed suspect upper GI bleed source. She is on a PPI drip. Warfarin held (not causing the bleeding, but exacerbating it) Hg down slightly to 10.7 (from 11.5). She was explained alternatives, risk and benefits include not withstanding bleeding, infection, sepsis, perforation, need emergent urgent . She have an ASA of 3. Charges/Coding Visit Charges Inpatient E&M: 63219 Init Hosp L3 05/16/24 1612 Cosigner Signature (if applicable): CC: Dr. Flako Tracy MD~ Signed [facility]03-12-2025 Consult note [facility] Medical Records Department [address] [place] [address] Pre-Anesthesia Evaluation 05/16/24 1508 MR#: [id number] Acct: [id number] Name: LAISHA WALKER Rep #:[id number] : 1950 74 From: Reggie Murray MD PCP: Dr. Flako Tracy MD Status:AD M IN Y Race: C Location: [place] [address] ASA Classification* ASA Classification ASA Classification: 3 Assessment & Plan Anesthesia* Anesthesia Assessment Anesthesia Assessment: Discussed sedation and/or anesthesia options, risks, benefits, and alternatives with patient/parents/legal guardian/POA. Questions invited. The patient/parents/legal guardian/POA seems to understand and agrees to proceedwith anesthesia plan. Reviewed the physical assessment, medical history, allergy history and patient home medications list prior to surgery/procedure/anesthetic and documented any changes. Performed airway and anesthesia risk assessments. Anesthesia Type Anesthesia Type: MAC (Pacemaker. complete heart block history) Anesthesia Focused Assessment* Temperature: 98.6 F Pulse Rate: 82 Blood Pressure: 121/45 Respiratory Rate: 16 Pulse Ox: 94 Airway Assessment Mouth opens: >3 cm Mallampati Score: II Focused Labs Anesthesia Preop lab: CBC WBC 5.1 K/mm3 (4.4-11.0) 05/16/24 05:47 05/16/24 RBC 3.89 M/mm3 (4.2-5.4) L 05/16/24 05:47 05/16/24 Hgb 10.7 g/dL (12.0-15.0) L 05/16/24 05:47 5 Hct 33.0 % (37-47) L 05/16/24 05:47 05/16/24 Plt Count 141 K/mm3 (150-450) L 05/16/24 05:47 05/16/24 CHEMISTRY Potassium 3.9 mmol/L (3.3-5.1) 05/16/24 05:47 05/16/24 Sodium 137 mmol/L (133-145) 05/16/24 05:47 05/16/24 Magnesium 1.8 mg/dL (1.5-2.2) 05/16/24 05:47 05/16/24 Phosphorus 2.5 mg/dL (2.7-4.5) L 05/16/24 05:47 05/16/24 BUN 19 mg/dL (4-19) 05/16/24 05:47 05/16/24 Creatinine 0.97 mg/dL (0.70-1.20) 05/16/24 05:47 05/16/24 Glucose 157 mg/dL (70-99) H 05/16/24 05:47 05/16/24 POC Glucose 120 mg/dL (74-106) H 05/16/24 12:06 05/16/24 TSH 1.170 uIU/mL (0.300-4.200) 05/16/24 05:47 05/05 05/01 COAG PT 19.0 SECONDS (11.7-14.9) H 05/16/24 05:47 05/05 05/01 INR 4.2 H 02/11/23 15:24 02/11/23 Pre-Assessment Diagnosis/Proposed Procedure Planned Operative Procedure(s): EGD Anesthesia History Anesthesia History - field operations coordinator: Anesthesia History - field operations coordinator Hx Hospitalization Yes: 06/2107/29/23 12:32 Any Problems With Anesthesia No: pt slow to wake from 05/16/24 14:39 general and nausea Cholinesterase deficiency No 05/16/24 14:39 You/Your Family Experience No 05/16/24 14:39 fever (hyperthermia) with Relationship Recent Exposure to Contagious Yes 05/16/24 14:39 Disease Does patient have nerve No 05/16/24 14:39 stimulator Patient instructed to have No 05/16/24 14:39 device shut off --Does patient have Pacemaker Yes 05/16/24 14:00 or ICD? When Was Last Pacemaker Check dr anna 04/1305/16/24 14:39 QUESTION #4 FULL TEXT: You/Your Family Experience fever (hyperthermia) with Anesthesia Last Oral Intake Last Oral intake: Last Oral Intake NPO since 00:00 05/16/24 14:00 Meds taken in AM with sips of No 05/16/24 14:00 water? Meds patient instructed to take am of surgery PONV PONV - field operations coordinator: PONV - field operations coordinator Female HX of Motion Sickness HX of N/V After Surgery Non-Smoker Duration of Surgery greater than 60 minutes Number of Risk Factors PONV Score Height & Weight Height & Weight: Anesthesia: Height & Weight Height 5 ft 4 in 05/16/24 14:00 Weight: 92.2 kg 05/16/24 14:00 Body Mass Index (BMI) 34.9 05/16/24 14:00 Respiratory Assessment Respiratory Assessment - field operations coordinator: Respiratory Tract Infection Hx - field operations coordinator Hx Respiratory Tract Infection Yes: flu a + 05/16/24 14:39 STOP Sleep Apnea STOP Sleep Apnea - field operations coordinator: STOP Sleep Apnea - field operations coordinator Hx Hypertension Yes 05/16/24 11:44 Hx Sleep Apnea No 05/15/24 23:23 CPAP No 05/15/24 23:23 BIPAP No 05/15/24 23:23 Do you snore loudly (louder No 05/15/24 23:23 than talking or can be heard Do you often feel tired/ No 05/15/24 23:23 fatigued/ sleepy during daytime? Has anyone observed you stop No 05/15/24 23:23 breathing during sleep? STOP Results Negative 05/15/24 23:23 QUESTION #5 FULL TEXT : Do you snore loudly (louder than talking or can be heard through closeddoors)? Tobacco Use History Tobacco Use History - field operations coordinator: Tobacco Use History - field operations coordinator Tobacco Use Smoking Status Never smoker 05/15/24 23:23 Hx Tobacco Use No 05/15/24 23:23 Years Smoking Packs Smoked per Day Smoking Cessation Date was within the last 15 years Hx Smoking Cessation Date Hx Smoking Cessation No 05/15/24 23:23 Counseling Hematologic Medial History Hematologic Hx - field operations coordinator: Hematologic Medical Hx - net architect Hx of Blood Transfusion Yes 05/15/24 23:23 Hx of Transfusion in last 3 No 05/15/24 23:23 Months Date of Last Transfusion (if within last 3 months) Ever experience any problems No 05/15/24 23:23 with transfusion(s)? Specify any problems Hx of Preganancy in last 3 No 05/15/24 23:23 Months Nurse Filling Out Transfusion LUIGI 05/15/24 23:23 & Questions: Date: 05/15/24 05/15/24 23:23 Time: 23:30 05/15/24 23:23 Patient unable to answer at this time (ie. confused, unrespo /Reproduction History /Reproductive History - field operations coordinator: /Reproductive Hx- field operations coordinator Hx Now No 05/16/24 14:39 Gestational Age (in weeks): EDC: Hx Hx Para Hx Section SAB No 05/16/24 14:39 Active Medications Active Medications: Current Medications Generic Name Dose Route Start Last Admin Trade Name Freq PRN Reason Stop Dose Admin Glucagon 1 mg 05/15/24 23:22 Glucagon 1 Mg/Ml Syringe IM X1 PRN HYPOGLYCEMIA Protocol Pantoprazole Sodium 80 mg/ 100 mls @ 10 mls/hr 05/15/24 22:34 05/16/24 10:05 Sodium Chloride CONT INF 10 mls/hr Q10H PREET Administration Sodium Chloride 1,000 mls @ 100 mls/hr 05/15/24 22:34 05/16/24 12:29 IV 05/16/24 18:33 100 mls/hr .Q10H PREET Administration Protocol Dextrose 250 mls @ 0 mls/hr 05/15/24 23:22 Dextrose 10%-Water IV .Q0M PRN HYPOGLYCEMIA Protocol As Directed Sodium Chloride 100 mls @ 15 mls/hr 05/15/24 23:34 IV .Q6H40M PRN Saline Flush Sodium Chloride 100 mls @ 15 mls/hr 05/15/24 23:34 IV .Q6H40M PRN Additional IVPB Infusion Ceftriaxone Sodium 1 gm in 50 mls @ 100 mls/hr 05/16/24 02:35 05/16/24 04:54 Rocephin IV Infused QHS PREET Infusion Azithromycin 500 mg/ Sodium 255 mls @ 255 mls/hr 05/16/24 02:35 05/16/24 04:59 Chloride IV 0 mls/hr QHS PREET Infusion Insulin Human Lispro 0 unit 05/16/24 00:00 05/16/24 13:14 Insulin Lispro 100 Unit/Ml Insuln.Pen SC Not Given Q6 [facility] Protocol Ondansetron HCl 4 mg 05/15/24 23:22 Ondansetron 4 Mg/2 Ml Vial IV Q6H PRN PRN NAUSEA/VOMITING Promethazine HCl 12.5 mg 05/15/24 23:22 Promethazine 25 Mg/Ml Syringe IM Q6H PRN PRN Breakthrough Nausea/Vomiting Sodium Chloride 10 - 40 ml 05/15/24 23:34 05/16/24 04:24 0.9% Saline Lock 10 Ml Syringe IV 10 ml UD PRN Administration SALINE FLUSH PFSH Medical History HLD (hyperlipidemia) Cancer of kidney Cirrhosis of liver not due to alcohol Goiter Depression History of renal carcinoma Stage 3a chronic kidney disease (CKD) Bilateral carotid artery stenosis (10/27/20) Complete heart block Thrombosed external hemorrhoid Osteoporosis Cancer Irregular heart beat DVT (deep venous thrombosis) TIA (transient ischemic attack) Rectal pain Chronic anemia Obesity PAF (paroxysmal atrial fibrillation) Asthma Diabetes Hemorrhoids Arthritis Hypertension VTE (venous thromboembolism) CVA (cerebral vascular accident) Home Medications ?Medication ?Instructions ?Recorded ?Last Taken ?Type acetaminophen 325 mg tablet 1,000 mg PO QHS 06/26/16 0 06/29/16 History 1000 mg loratadine 10 mg tablet 10 mg PO QHS 30 days 7 Unknown Rx docusate sodium 100 mg capsule 200 mg PO QHS 01/21/23 Unknown History (Colace) multivitamin (Daily Multi-Vitamin 1 tab PO DAILY 01/21 Unknown History tablet) hydrocortisone 2.5 % topical cream 1 applic FL QD-BID PRN hemorrhoids 02/04/23 Unknown History with perineal applicator (Anusol-HC) promethazine 12.5 mg tablet 12.5 mg PO Q6H PRN nausea and 02/04/23 Unknown History vomiting losartan 25 mg tablet 12.5 mg (1/2 x 25 mg) PO ORION LY #45 08/15/23 Unknown Rx tabs metoprolol tartrate 50 mg tablet 50 mg PO BID #180 tab s 02/24/24 Unknown Rx rosuvastatin 20 mg tablet 20 mg PO QHS #90 tabs Unknown Rx glipizide 10 mg tablet, extended 10 mg PO BID 04/18/24 Unknown History release 24 hr ondansetron 4 mg disintegrating 4 mg PO Q8H PRN PRN Na usea #10 tabs 05/14/24 Unknown Rx tablet warfarin 2.5 mg tablet 2.5 mg PO MOTUWETH 05/15/24 Unknown History warfarin 5 mg tablet 5 mg PO .FRSASU 05/15/24 Unk nown History Allergy/AdvReac Type Severity Reaction Status Date / Time simvastatin Allergy Severe Unknown Verified 05/15/24 16:48 etodolac AdvReac Intermediate GI upset Verified 05/15/24 16:48 gabapentin AdvReac Intermediate dizziness Verified 05/15/24 16:48 NSAIDS (Non-Steroidal AdvReac Intermediate GI upset Verified 05/15/24 16:48 Anti-Inflamma sulfamethoxazole AdvReac Intermediate Sulfa Verified 05/15/24 16:48 drugs GI upset sulfametrole AdvReac Intermediate GI upset Verified 05/15/24 16:48 valdecoxib (From Bextra) AdvReac Intermediate GI upset Verified 05/15/24 16:48 atorvastatin AdvReac Unknown unknown Verified 05/15/24 16:48 codeine AdvReac Unknown unknown Verified 05/15/24 16:48 guaifenesin (From Entex LA) AdvReac Unknown unknown Verified 05/15/24 16:48 hydrocodone AdvReac Unknown unknown Verified 05/15/24 16:48 naproxen (From Naprosyn) AdvReac Unknown unknown Verified 05/15/24 16:48 phenylephrine (From Entex LA) AdvReac Unknown unknown Verified 05/15/24 16:48 phenylpropanolamine (From AdvReac Unknown unknown Verified 05/15/24 16:48 Entex LA) pravastatin AdvReac Unknown unknown Verified 05/15/24 16:48 quinapril (From Accupril) AdvReac Unknown Unknown Verified 05/15/24 16:48 rofecoxib (From Vioxx) AdvReac Unknown unknown Verified 05/15/24 16:48 Sulfa (Sulfonamide AdvReac Unknown Diarrhea Verified 05/15/24 16:48 Antibiotics) tramadol AdvReac Unknown unknown Verified 05/15/24 16:48 celecoxib (From Celebrex) AdvReac Nausea/Vom/ Verified 05/15/24 16:48 Diarrhea fluoxetine HCl (From Prozac) AdvReac Other Verified 05/15/24 16:48 isosorbide AdvReac Other Verified 05/15/24 16:48 metformin AdvReac Nausea/Vom/ Verified 05/15/24 16:48 Diarrhea Family History Mother CVA (cerebral vascular accident) Diabetes Heart disease Father CVA (cerebral vascular accident) Diabetes Heart disease Other USP (current) use of 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 Surgical History S/P placement of cardiac pacemaker History of incision and drainage H/O partial nephrectomy History of hysterectomy History of knee replacement History of cholecystectomy History of shoulder surgery History of appendectomy Social History household members: spouse Smoking Status: Never smoker alcohol intake: never substance use type: does not use Review of Systems (Anesthesia) ROS Narrative System reviewed and no additional complaints, except as documented. 05/16/24 1510 > Date _ Reggie Murray MD Cosigner Signature: Date CC: ~ Signed [facility]03-12-2025 Progress note [facility] Medical Records Department [address] [place] [address] Progress Note - Hospitalist 05/16/24 0898 MR#: [id number] Acct: [id number] Name: LAISHA WALKER Vickie Rep #:[id number] : 1950 74 From: Adonis Love DO PCP: Dr. Flako Tracy MD Status:AD M IN Location: [place] [address] Reason for Visit Reason for Visit: Diagnoses Obesity, unspecified (05/15/24) Paroxysmal atrial fibrillation (05/15/24) Influenza due to other identified influenza virus with other respiratory manifestations (05/15/24) Chronic maxillary sinusitis (05/15/24) Chronic ethmoidal sinusitis (05/15/24) Unspecified cirrhosis of liver (05/15/24) Melena (05/15/24) Gastrointestinal hemorrhage, unspecified (05/15/24) Adverse effect of unspecified drugs, medicaments and biological substances, initial encounter (05/15/24) Subjective Subjective No further melena. Feeling well. Objective Data Objective Data Vital Signs: Vital Signs Temp Pulse Resp BP Pulse Ox O2 Del Method 37.6 C H 74 18 158/60 H 94 Room Air 05/15/24 23:23 05/15/24 23:23 05/15/24 23:23 05/15/24 23:23 05/15/24 23:23 05/15/24 23:23 Oxygen Delivery Method Room Air Weight: 92.2 kg Body Mass Index (BMI) 34.9 Intake & Output: Intake and Output for Last 24 Hours 05/14/24 05/15/24 05/16/24 23:59 23:59 23:59 Intake Total 610 / 610 461.50 / 461.50 Balance 610 / 610 461.50 / 461.50 Lab / Micro Data 05/16/24 05:47 05/16/24 05:47 Labs: Laboratory Results - last 24 hr 05/15/24 17:15: WBC 7.2, RBC 4.16 L, Hgb 11.5 L, Hct 35.3 L, MCV 84.9, MCH 27.6,MCHC 32.6, RDW Std Deviation 45.5 H, RDW Coeff of Rukhsana 14.6, Plt Count 154, MPV 11.4, Immature Gran % (Auto) 0.400, Neut% (Auto) 67.4, Lymph % (Auto) 21.6, [place] % (Auto) 10.2 H, Eos % (Auto) 0.1, Baso % (Auto) 0.3, Absolute Neuts (auto) 4.8, Absolute Lymphs (auto) 1.55, Nucleated RBC % 0, PT 19.9 H, INR 1.7, Sodium 135, Potassium 3.8, Chloride 100, Carbon Dioxide 21.2, Anion Gap 13, BUN 27 H, Creatinine 1.23 H, Estim Creat Clear Calc 42.94 L, Est GFR (MDRD) Non-Af 46 L, BUN/Creatinine Ratio 22.1 H, Glucose 222 H, Calcium 9.2, Iron 15 L, TIBC 232 L, Iron Saturation 6.5 L, Unsaturated IBC 217 L, Ferritin 247, Total Bilirubin 0.67,AST 52 H, ALT 26, Alkaline Phosphatase 68, Total Protein 7.1, Albumin 3.6, Globulin3.5, Albumin/Globulin Ratio 1.0 05/15/24 17:30: Blood Type O POSITIVE, Antibody Screen NEGATIVE 05/16/24 05:47: WBC 5.1, RBC 3.89 L, Hgb 10.7 L, Hct 33.0 L, MCV 84.8, MCH 27.5,MCHC 32.4, RDW Std Deviation 45.3 H, RDW Coeff of Rukhsana 14.6, Plt Count 141 L, MPV11.8, Immature Gran % (Auto) 0.200, Neut % (Auto) 62.9, Lymph % (Auto) 27.1, [place] % (Auto) 8.6, Eos % (Auto) 0.8, Baso % (Auto) 0.4, Absolute Neuts (auto) 3.2, Absolute Lymphs (auto) 1.38, Nucleated RBC % 0, PT 19.0 H, INR 1.6, Sodium 137,Potassium 3.9, Chloride 103, Carbon Dioxide 20.5 L, Anion Gap 13, BUN 19, Creatinine 0.97, Estim Creat Clear Calc 54.29, Est GFR (MDRD) Non-Af 60, BUN/Creatinine Ratio 19.7, Glucose 157 H, MskcuegeqvL1m 8.0, Calcium 8.9, Phosphorus 2.5 L, Magnesium 1.8, Total Bilirubin 0.49, AST 45 H, ALT 22, Alkal inePhosphatase 62, Total Protein 6.7, Albumin 3.4, Globulin 3.3, Albumin/Globulin Ratio 1.0, TSH 1.170 Micro: Microbiology 05/15/24 17:15 Stool Stool Occult Blood (MANDY) - Final Radiography Diagnostic Testing: Radiology Impression Chest CT 05/16/24 02:30 IMPRESSION: Minor scarring. Versus subsegmental atelectasis within the left lung. No definite evidence of pneumonia. Other findings as above. One or more dose reduction techniques were used (e.g., Automated exposure control, adjustment of the mA and/or kV according to patient size, use of iterative reconstruction technique). Reading Location: [facility] Brain CT 05/16/24 02:39 IMPRESSION: Mild mucoperiosteal thickening involving the bilateral ethmoids. Correlate clinically for sinus disease. No acute intracranial hemorrhage, mass effect or midline shift. Reading Location: [facility] Physical Exam Const alert and no apparent distress Constitutional Narrative: up in chair. HEENT head/scalp atraumatic and moist oral mucous membranes Resp normal respiratory effort, no retractions, no use of accessory muscles and clearto auscultation bilaterally Cardio regular rate, regular rhythm, S1 normal heart sound and S2 normal heart sound GI normal to inspection, nondistended, normoactive bowel sounds, soft to palpation and non-distended GI Narrative: TTP Extremity normal to inspection Assessment & Plan Assessment/Plan (1) GI bleed: PLAN: PPI gtt. Unclear source, but suspect upper source. Warfarin held (not causing the bleeding, but exacerbating it) Hg down slightly to 10.7 (from 11.5). GI consult for endoscopy. PLAN: Plan Chronic conditions: * pAfib: warfarin held given GIB. Continue metoprolol * HTN: losartan * DM2: glipizide held. SSI. VTE prophylaxis: SCDs. Charges/Coding Visit Charges Inpatient E&M: 67624 Subs Hosp L2 05/16/24 1508 Cosigner Signature (if applicable): CC: ~ Signed [facility]03-12-2025 History and physical note Author [place] [facility] Note Date/Time May 16, 2024 7:0 6am [facility] Medical Records Department [address] [place] [address] H&P Exam - Hospitalist 05/15/242119 MR#: [id number] Acct: [id number] Name: LAISHA WALKER Rep #:[id number] : 1950 74 From: [place] DO PCP: Dr. Flako Tracy MD Status:AD M IN Location: [facility] [id number] HPI - General General Date of Admission: 05/15/24 Date of Service: 05/15/24 Chief Complaint: Black Stools. HPI Narrative LAISHA WALKER, is a 74 F with a past medical history of essential hypertension; on losartan and metoprolol, hyperlipidemia; on rosuvastatin, history of goiter, obesity; with BMI of 35.1 this admission, history of KIDD; with cirrhosis, DM-2;of unknown control on glipizide 10 mg p.o. twice daily, paroxysmal atrial fibrillation; on warfarin, history of CHB; s/p PPM (2022), history of DVT, history of TIA/CVA, history of asymmetric septal hypertrophy, history of bilateral carotid stenosis (2020), history of orthostatic hypotension, history of renal carcinoma; s/p partial Right nephrectomy, CKD; stage IIIa, chronic anemia, history of thrombosed hemorrhoids; with history of BRBPR (2022), historyof sepsis, history of torticollis, OA; with history of bilateral TKR's and chronic Left hip pain and recently diagnosed Influenza A in this ER on May 13, 2024 with complaints of nausea, vomiting, diarrhea and intermittent chest discomfort with patient not prescribed Tamiflu due to concerns that it may exacerbate her nausea and vomiting who [facility] ERplan[facility] of black liquid stools. Mrs. Walker reports her symptoms began approximately 2 days prior to admission with the abrupt-onset of black liquid stools that were voluminous. She also admits to associated lightheadedness, dizziness and falls on May 13, 2024 and May 14, 2024 but she denies loss of consciousness or significant head trauma with her falls along with fever up to 100.6 ?F earlier today which improved after acetaminophen. She denies similar previous episodes as her previous thrombosed external hemorrhoids are generally productive of bright red blood. She also states she did not take her medications for the past 2 days due to not feeling well. She reports associated lightheadedness, dizziness, generalized weakness, fever, nasal/chest congestion, sinus pain, chest pain that is generalized and dull and stabbing and made worse with coughing, cough productiveof pale yellow sputum, abdominal pain, decreased urination and arthralgias. Shedenies hematuria, back pain, polydipsia, polyphagia or polyuria. In the ER patient was diagnosed with suspected UGIB causing melanotic stools likely due atleast in part to adverse drug reaction to warfarin in the setting of suspected PUD. She was then started on IV pantoprazole and made n.p.o. with subsequent transfer to PCU for ongoing care for stay that is expected to extend beyond 2 midnights. [facility] Medical History (Updated 05/16/24 @ 07:[address] [place] Jesus, DO) HLD (hyperlipidemia) Cancer of kidney Cirrhosis of liver not due to alcohol Goiter Depression History of renal carcinoma Stage 3a chronic kidney disease (CKD) Bilateral carotid artery stenosis (10/27/20) Complete heart block Thrombosed external hemorrhoid Osteoporosis Cancer Irregular heart beat DVT (deep venous thrombosis) TIA (transient ischemic attack) Rectal pain Chronic anemia Obesity PAF (paroxysmal atrial fibrillation) Asthma Diabetes Hemorrhoids Arthritis Hypertension VTE (venous thromboembolism) CVA (cerebral vascular accident) Home Medications ?Medication ?Instructions ?Recorded ?Last Taken ?Type acetaminophen 325 mg tablet 1,000 mg PO QHS 06/26/16 0 06/29/16 History 1000 mg loratadine 10 mg tablet 10 mg PO QHS 30 days 7 Unknown Rx docusate sodium 100 mg capsule 200 mg PO QHS 01/21/23 Unknown History (Colace) multivitamin (Daily Multi-Vitamin 1 tab PO DAILY 01/21 Unknown History tablet) hydrocortisone 2.5 % topical cream 1 applic FL QD-BID PRN hemorrhoids 02/04/23 Unknown History with perineal applicator (Anusol-HC) promethazine 12.5 mg tablet 12.5 mg PO Q6H PRN nausea and 02/04/23 Unknown History vomiting losartan 25 mg tablet 12.5 mg (1/2 x 25 mg) PO ORION LY #45 08/15/23 Unknown Rx tabs metoprolol tartrate 50 mg tablet 50 mg PO BID #180 tab s 02/24/24 Unknown Rx rosuvastatin 20 mg tablet 20 mg PO QHS #90 tabs Unknown Rx glipizide 10 mg tablet, extended 10 mg PO BID 04/18/24 Unknown History release 24 hr ondansetron 4 mg disintegrating 4 mg PO Q8H PRN PRN Na usea #10 tabs 05/14/24 Unknown Rx tablet warfarin 2.5 mg tablet 2.5 mg PO MOTUWETH 05/15/24 Unknown History warfarin 5 mg tablet 5 mg PO .FRSASU 05/15/24 Unk nown History Allergy/AdvReac Type Severity Reaction Status Date / Time simvastatin Allergy Severe Unknown Verified 05/15/24 16:48 etodolac AdvReac Intermediate GI upset Verified 05/15/24 16:48 gabapentin AdvReac Intermediate dizziness Verified 05/15/24 16:48 NSAIDS (Non-Steroidal AdvReac Intermediate GI upset Verified 05/15/24 16:48 Anti-Inflamma sulfamethoxazole AdvReac Intermediate Sulfa Verified 05/15/24 16:48 drugs GI upset sulfametrole AdvReac Intermediate GI upset Verified 05/15/24 16:48 valdecoxib (From Bextra) AdvReac Intermediate GI upset Verified 05/15/24 16:48 atorvastatin AdvReac Unknown unknown Verified 05/15/24 16:48 codeine AdvReac Unknown unknown Verified 05/15/24 16:48 guaifenesin (From Entex LA) AdvReac Unknown unknown Verified 05/15/24 16:48 hydrocodone AdvReac Unknown unknown Verified 05/15/24 16:48 naproxen (From Naprosyn) AdvReac Unknown unknown Verified 05/15/24 16:48 phenylephrine (From Entex LA) AdvReac Unknown unknown Verified 05/15/24 16:48 phenylpropanolamine (From AdvReac Unknown unknown Verified 05/15/24 16:48 Entex LA) pravastatin AdvReac Unknown unknown Verified 05/15/24 16:48 quinapril (From Accupril) AdvReac Unknown Unknown Verified 05/15/24 16:48 rofecoxib (From Vioxx) AdvReac Unknown unknown Verified 05/15/24 16:48 Sulfa (Sulfonamide AdvReac Unknown Diarrhea Verified 05/15/24 16:48 Antibiotics) tramadol AdvReac Unknown unknown Verified 05/15/24 16:48 celecoxib (From Celebrex) AdvReac Nausea/Vom/ Verified 05/15/24 16:48 Diarrhea fluoxetine HCl (From Prozac) AdvReac Other Verified 05/15/24 16:48 isosorbide AdvReac Other Verified 05/15/24 16:48 metformin AdvReac Nausea/Vom/ Verified 05/15/24 16:48 Diarrhea Family History Mother CVA (cerebral vascular accident) Diabetes Heart disease Father CVA (cerebral vascular accident) Diabetes Heart disease 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 Eyes: Patient denies changes vision or discharge from eyes. ENT: Patient admits to nasal congestion and sinus pain but she denies sore throat or ear pain. Resp: Patient admits to shortness of breath with congestive cough productive of pale, yellowish sputum after recently being diagnosed with influenza A as per HPI. CV: Patient admits to pleuritic type chest pain made worse with coughing and deep breathing. She denies heart racing or palpitations. GI: Patient admits to generalized abdominal pain with voluminous melanotic stools as per HPI. She admits to nausea but denies vomiting. : Patient admits to decreased urination but she denies dysuria or hematuria. MSK: Patient admits to arthralgias, myalgias and back pain but she denies neck pain. Skin: Patient denies rash, abscess, wounds or jaundice. Psych: Patient denies symptoms of uncontrolled depression or anxiety. Neuro: Patient admits to headache but she denies paresthesias or focal neurologic deficits. Allergy: Patient denies lip swelling, tongue swelling or urticaria. Hematology: Patient admits to voluminous melanotic stools as per HPI. Endocrinology: Patient denies polyuria, polydipsia or polyphagia. 14 point ROS otherwise negative except for positives noted above in HPI. Vital Signs Vital Signs Vital Signs: 05/15/24 16:48 05/15/24 18:47 05/15/24 20:00 Temperature 97.9 F Temperature Source Temporal Pulse Rate 90 77 Respiratory Rate 20 H 18 Blood Pressure 130/54 H 137/48 H 128/41 H Blood Pressure Mean 79 77 70 Pulse Ox 95 95 95 Oxygen Delivery Method Room Air Room Air Room Air 05/15/24 20:55 Temperature 98.4 F Temperature Source Pulse Rate 70 Respiratory Rate 18 Blood Pressure 138/60 H Blood Pressure Mean 86 Pulse Ox 97 Oxygen Delivery Method Weight Weight: 204 lb 5.896 oz Body Mass Index (BMI) 35.0 Physical Exam Const alert, oriented x3 and no apparent distress Constitutional Narrative: Obese with chronically ill appearance. General Appearance: cooperative HEENT normocephalic, head/scalp atraumatic, hearing grossly normal bilaterally and moist oral mucous membranes Eyes PERRL and EOMs intact bilaterally Neck no lymphadenopathy and supple Resp Resp Narrative: Diminished breath sounds throughout with scattered rhonci. Cardio regular rate and regular rhythm GI normal to inspection, nondistended, normoactive bowel sounds, soft to palpation and non-distended GI Narrative: Obese with mild generalized TTP. Extremity normal to inspection, full ROM and no clubbing, cyanosis or edema Skin Skin Narrative: Patient has no evidence of rash, abscess, wounds or jaundice. Neuro oriented x3, CN's II-XII intact bilaterally, moves all extremities and no focal motor deficits Sensorium / Orientation: awake, alert, oriented to person, oriented to place andoriented to time Speech: speech normal Psych affect normal Results Medical Records Data Attestation: I reviewed the patient's medical records Lab / Micro Data Attestation: I reviewed the patient's lab results. 05/16/24 05:47 05/15/24 17:15 Labs: Laboratory Results - last 24 hr 05/15/24 17:15: WBC 7.2, RBC 4.16 L, Hgb 11.5 L, Hct 35.3 L, MCV 84.9, MCH 27.6,MCHC 32.6, RDW Std Deviation 45.5 H, RDW Coeff of Rukhsana 14.6, Plt Count 154, MPV 11.4, Immature Gran % (Auto) 0.400, Neut % (Auto) 67.4, Lymph % (Auto) 21.6, [place] % (Auto) 10.2 H, Eos % (Auto) 0.1, Baso % (Auto) 0.3, Absolute Neuts (auto) 4.8, Absolute Lymphs (auto) 1.55, Nucleated RBC % 0, PT 19.9 H, INR 1.7, Sodium 135, Potassium 3.8, Chloride 100, Carbon Dioxide 21.2, Anion Gap 13, BUN 27 H, Creatinine 1.23 H, Estim Creat Clear Calc 42.94 L, Est GFR (MDRD) Non-Af 46 L, BUN/Creatinine Ratio 22.1 H, Glucose 222 H, Calcium 9.2, Total Bilirubin 0.67, AST 52 H, ALT 26, Alkaline Phosphatase 68, Total Protein 7.1, Albumin 3.6, Globulin 3.5, Albumin/Globulin Ratio 1.0 05/15/24 17:30: Blood Type O POSITIVE, Antibody Screen NEGATIVE Micro: Microbiology 05/15/24 17:15 Stool Stool Occult Blood (MANDY) - Final Imaging [facility] Imaging Services [address] [place], [place] [id number] Chest without Contrast MR#: [id number] Acct: [id number] Name: LAISHA WALKER Rep #: [id number] : 1950 F 74 From: [place] MD PCP: Dr. Flako Tracy MD Status: ADM IN Study: Chest without Contrast Date of Exam: 05/16/24 Exam# [id number] Ordering Dr: [place] DO PROCEDURE: CHEST WITHOUT CONTRAST REASON FOR EXAM: CONGESTED COUGH AFTER RECENT INFLUENZA A; ?PNA TECHNIQUE: Chest CT without contrast. COMPARISON: Chest x-ray performed on May 14, 2024. FINDINGS: Pacemaker device overlying the left chest. The trachea and central bronchial tree are patent. There is no pleural or pericardial effusion. The heart is normal in size. There are shotty lymph nodes within the mediastinum, which are nonspecific. There is no pneumothorax. There are streaky changes within the left upper lobe and lingula, which may represent subsegmental atelectasis versus scarring (best seen on image 78 and image 97 of 121). There are subcentimeter pulmonary nodules present. For example there is a 2 mm right lower lobe nodule best seen on image 80/121. No evidence of pneumonia is seen. No acute osseous abnormalities identified. Extensive atheromatous calcification seen within the thoracic aorta without evidence of aneurysmal dilatation. Calcified nodules seen within the bilateral thyroid, incompletely characterized. CT/Chest without Contrast IMPRESSION: Minor scarring. Versus subsegmental atelectasis within the left lung. No definite evidence of pneumonia. Other findings as above. One or more dose reduction techniques were used (e.g., Automated exposure control, adjustment of the mA and/or kV according to patient size, use of iterative reconstruction technique). Reading Location: [facility] CC: Dr. [place] Jesus DO; Dr. Flako Tracy MD ~ Account Group Supervisor: Signed - ----- ------ [facility] Imaging Services [address] [place] [id number] Brain/Head without Contrast MR#: [id number] Acct: [id number] Name: LAISHA WALKER Rep #: [id number] : 1950 F 74 From: [place] MD PCP: Dr. Flako Tracy MD Status: ADM IN Study: Brain/Head without Contrast Date of Exam: 05/16/24 Exam# [id number] Ordering Dr: South Jesus DO EXAM: BRAIN/HEAD WITHOUT CONTRAST CLINICAL HISTORY: MAXIALLARY SINUS PAIN AND PRESSURE. ?SINUSITIS. COMPARISON: CT brain without contrast dated 07/15/2023. TECHNIQUE: CT of the brain was performed without intravenous contrast. Multiplanar reformats were obtained afterwards. FINDINGS: There is no acute intracranial hemorrhage, mass effect or midline shift. There are no abnormal extra-axial fluid collections present. The ventricles and sulci are within normal limits. Bilateral basal ganglia calcifications are present. Mucoperiosteal thickening seen within the bilateral ethmoids. The maxillary sinuses, frontal sinuses, sphenoid sinuses are well aerated. The mastoids are unremarkable. The calvarium is intact. CT/Brain/Head without Contrast IMPRESSION: Mild mucoperiosteal thickening involving the bilateral ethmoids. Correlate clinically for sinus disease. No acute intracranial hemorrhage, mass effect or midline shift. Reading Location: [id number] CC: Dr. South Jesus DO; Dr. Flako Tracy MD ~ Account Group Supervisor: Signed Assessment & Plan Assessment/Plan (1) UGIB (upper gastrointestinal bleed): (2) Melanotic stools: (3) Adverse drug reaction: QUALIFIERS: Encounter type: initial encounter Qualified Code(s): T50.905A - Adverse effect of unspecified drugs, medicaments and biological substances, initial encounter (4) Influenza A: (5) Ethmoidal sinusitis: QUALIFIERS: Chronicity: unspecified Qualified Code(s): J32.2 - Chronic ethmoidal sinusitis (6) Cirrhosis of liver not due to alcohol: (7) Obesity (BMI 30-39.9): (8) PAF (paroxysmal atrial fibrillation): PLAN: Plan 1. UGIB causing melanotic stools in the setting of previously known OrthostaticHypotension - Admit to PCU. Keep strict n.p.o. and continue IV pantoprazole infusion. Give ondansetron IV as needed nausea vomiting. Give morphine IV as needed severe (level 6-10/10) pain. Finally, we will consult gastroenterologistto see patient on rounds in the a.m. for further recommendations regarding EGD this admission with help appreciated in advance. 2. Adverse Drug Reaction to warfarin in the setting of suspected PUD precipitating #1 - Hold warfarin until further notice. 3. Recently diagnosed Influenza A with persistent low-grade fever plus sinus/chest congestion with Sinusitis complicating #1 & #2 - Checked CT's without contrast to confirm suspicion of suspected bacterial pneumonia and sinusitis with CT negative for pneumonia but positive for evidence of Ethmoid Sinusitis. Start empiric IV ceftriaxone and IV azithromycin. 4. History of KIDD; with cirrhosis in the setting of ongoing Obesity; with BMI of 35.2 this admission adding to the medical complexity of #1 - #3 - Weight losswill be recommended. Check TSH. GI to consult and decide on plan. This complicates her case and may hamper recovery. 5. Paroxysmal atrial fibrillation; on warfarin compounding #1 - #4 - Hold warfarin until further notice. 6. History of thrombosed hemorrhoids; with history of BRBPR (2022) - Noted. 7. Chronic Anemia in the setting of known CKD; stage IIIa - Stable. Check renal indices daily to ensure continued stability. 8. History of Renal Carcinoma; s/p partial Right nephrectomy - Stable. 9. Essential Hypertension; on losartan and metoprolol - Hold scheduled antihypertensives in light of #1. 10. Hyperlipidemia; on rosuvastatin - Restart stain when patient cleared for oral intake. 11. History of goiter - Noted. Check TSH. 12. DM-2; of unknown control on glipizide 10 mg p.o. twice daily - Keep NPO. FSBS q. 6 hours plus cover with lowest intensity SSI. Check HgbA1c to objectively evaluate quality of diabetic control. 13. History of CHB; s/p PPM (2022) - Stable. 14. History of DVT - Noted. 15. History of TIA/CVA - Noted with no signs of recurrence at this time. 16. History of asymmetric septal hypertrophy - Noted. 17. History of bilateral carotid stenosis (2020) - Noted. 18. History of sepsis - Noted. 19. History of torticollis - Stable. 20. OA; with history of bilateral TKR's and chronic Left hip pain - Stable. 21. DVT prophylaxis - SCD's only in light of #1. Total time: Approximately (but not less than) 75 minutes. Charges/Coding Visit Charges Inpatient E&M: 09563 Init Hosp L3 05/16/24 0706 <Electronically signed by South Jesus DO> Cosigner Signature (if applicable): CC: Dr. South Jesus DO; Dr. Flako Tracy MD~ Signed [facility] Work Phone: [phone] History and physical note [facility] Medical Records Department [address] [place] [address] H&P Exam - Hospitalist 05/15/242119 MR#: [id number] Acct: [id number] Name: LAISHA WALKER Rep #:[id number] : 1950 74 From: [place] DO PCP: Dr. Flako Tracy MD Status:AD M IN [facility] - General General Date of Admission: 05/15/24 Date of Service: 05/15/24 Chief Complaint: Black Stools. HPI Narrative LAISHA WALKER, is a 74 F with a past medical history of essential hypertension; on losartan and metoprolol, hyperlipidemia; on rosuvastatin, history of goiter, obesity; with BMI of 35.1 this admission, history of KIDD; with cirrhosis, DM- 2;of unknown control on glipizide 10 mg p.o. twice daily, paroxysmal atrial fibrillation; on warfarin, history of CHB; s/p PPM (2022), history of DVT, history ofTIA/CVA, history of asymmetric septal hypertrophy, history of bilateral carotid stenosis (2020), history of orthostatic hypotension, history of renal carcinoma; s/p partial Right nephrectomy, CKD; stage IIIa, chronic anemia, history of thrombosed hemorrhoids; with history of BRBPR (2022), historyofsepsis, history of torticollis, OA; with history of bilateral TKR's and chronic Left hip pain and recently diagnosed Influenza A in this ER on May 13, 2024 with complaints of nausea, vomiting, diarrhea and intermittent chest discomfort with patient not prescribed Tamiflu due to concerns that it may exacerbate her nausea and vomiting who [facility]. Mrs. Walker reports her symptoms began approximately 2 days prior to admission with the abrupt-onset of black liquid stools that were voluminous. She also admits to associated lightheadedness, dizziness and falls on May 13, 2024 and May 14, 2024 but she denies loss of consciousness or significant head trauma with her falls along with fever up to 100.6 ?F earlier today which improved after acetaminophen. She denies similar previous episodes as her previous thrombosed external hemorrhoids are generally productive of bright red blood. She also states she did not take her medications for the past 2 days due to not feeling well. She reports associated lightheadedness, dizziness, generalized we akness, fever, nasal/chest congestion, sinus pain, chest pain that is generalized and dull and stabbing and made worse with coughing, cough productiveof pale yellow sputum, abdominal pain, decreased urination and arthralgias. Shedenies hematuria, back pain, polydipsia, polyphagia or polyuria. In the ER patient was diagnosed with suspected UGIB causing melanotic stools likely due atleast in part to adverse drug reaction to warfarin in the setting of suspected PUD. She was then started on IV pantoprazole and made n.p.o. with subsequent transfer to PCU for ongoing care for stay that is expected to extend beyond 2 midnights. [facility] Medical History (Updated 05/16/24 @ 07:[address] South Jesus, DO) HLD (hyperlipidemia) Cancer of kidney Cirrhosis of liver not due to alcohol Goiter Depression History of renal carcinoma Stage 3a chronic kidney disease (CKD) Bilateral carotid artery stenosis (10/27/20) Complete heart block Thrombosed external hemorrhoid Osteoporosis Cancer Irregular heart beat DVT (deep venous thrombosis) TIA (transient ischemic attack) Rectal pain Chronic anemia Obesity PAF (paroxysmal atrial fibrillation) Asthma Diabetes Hemorrhoids Arthritis Hypertension VTE (venous thromboembolism) CVA (cerebral vascular accident) Home Medications ?Medication ?Instructions ?Recorded ?Last Taken ?Type acetaminophen 325 mg tablet 1,000 mg PO QHS 06/26/16 0 06/29/16 History 1000 mg loratadine 10 mg tablet 10 mg PO QHS 30 days 7 Unknown Rx docusate sodium 100 mg capsule 200 mg PO QHS 01/21/23 Unknown History (Colace) multivitamin (Daily Multi-Vitamin 1 tab PO DAILY 01/21 Unknown History tablet) hydrocortisone 2.5 % topical cream 1 applic FL QD-BID PRN hemorrhoids 02/04/23 Unknown History with perineal applicator (Anusol-HC) promethazine 12.5 mg tablet 12.5 mg PO Q6H PRN nausea and 02/04/23 Unknown History vomiting losartan 25 mg tablet 12.5 mg (1/2 x 25 mg) PO ORION LY #45 08/15/23 Unknown Rx tabs metoprolol tartrate 50 mg tablet 50 mg PO BID #180 tab s 02/24/24 Unknown Rx rosuvastatin 20 mg tablet 20 mg PO QHS #90 tabs Unknown Rx glipizide 10 mg tablet, extended 10 mg PO BID 04/18/24 Unknown History release 24 hr ondansetron 4 mg disintegrating 4 mg PO Q8H PRN PRN Na usea #10 tabs 05/14/24 Unknown Rx tablet warfarin 2.5 mg tablet 2.5 mg PO MOTUWETH 05/15/24 Unknown History warfarin 5 mg tablet 5 mg PO .FRSASU 05/15/24 Unk nown History Allergy/AdvReac Type Severity Reaction Status Date / Time simvastatin Allergy Severe Unknown Verified 05/15/24 16:48 etodolac AdvReac Intermediate GI upset Verified 05/15/24 16:48 gabapentin AdvReac Intermediate dizziness Verified 05/15/24 16:48 NSAIDS (Non-Steroidal AdvReac Intermediate GI upset Verified 05/15/24 16:48 Anti-Inflamma sulfamethoxazole AdvReac Intermediate Sulfa Verified 05/15/24 16:48 drugs GI upset sulfametrole AdvReac Intermediate GI upset Verified 05/15/24 16:48 valdecoxib (From Bextra) AdvReac Intermediate GI upset Verified 05/15/24 16:48 atorvastatin AdvReac Unknown unknown Verified 05/15/24 16:48 codeine AdvReac Unknown unknown Verified 05/15/24 16:48 guaifenesin (From Entex [place]) AdvReac Unknown unknown Verified 05/15/24 16:48 hydrocodone AdvReac Unknown unknown Verified 05/15/24 16:48 naproxen (From Naprosyn) AdvReac Unknown unknown Verified 05/15/24 16:48 phenylephrine (From Entex [place]) AdvReac Unknown unknown Verified 05/15/24 16:48 phenylpropanolamine (From AdvReac Unknown unknown Verified 05/15/24 16:48 Entex [place]) pravastatin AdvReac Unknown unknown Verified 05/15/24 16:48 quinapril (From Accupril) AdvReac Unknown Unknown Verified 05/15/24 16:48 rofecoxib (From Vioxx) AdvReac Unknown unknown Verified 05/15/24 16:48 Sulfa (Sulfonamide AdvReac Unknown Diarrhea Verified 05/15/24 16:48 Antibiotics) tramadol AdvReac Unknown unknown Verified 05/15/24 16:48 celecoxib (From Celebrex) AdvReac Nausea/Vom/ Verified 05/15/24 16:48 Diarrhea fluoxetine HCl (From Prozac) AdvReac Other Verified 05/15/24 16:48 isosorbide AdvReac Other Verified 05/15/24 16:48 metformin AdvReac Nausea/Vom/ Verified 05/15/24 16:48 Diarrhea Family History Mother CVA (cerebral vascular accident) Diabetes Heart disease Father CVA (cerebral vascular accident) Diabetes Heart disease Other USP (current) use of 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 Surgical History S/P placement of cardiac pacemaker History of incision and drainage H/O partial nephrectomy History of hysterectomy History of knee replacement History of cholecystectomy History of shoulder surgery History of appendectomy Social History household members: spouse Smoking Status: Never smoker alcohol intake: never substance use type: does not use ROS ROS Narrative Review of Systems: Constitutional: Patient admits to low-grade fever, lightheadedness, dizziness and generalized weakness. Eyes: Patient denies changes vision or discharge from eyes. ENT: Patient admits to nasal congestion and sinus pain but she denies sore throat or ear pain. Resp: Patient admits to shortness of breath with congestive cough productive of pale, yellowish sputum after recently being diagnosed with influenza A as per HPI. CV: Patient admits to pleuritic type chest pain made worse with coughing and deep breathing. She denies heart racing or palpitations. GI: Patient admits to generalized abdominal pain with voluminous melanotic stools as per HPI. She admits to nausea but denies vomiting. : Patient admits to decreased urination but she denies dysuria or hematuria. MSK: Patient admits to arthralgias, myalgias and back pain but she denies neck pain. Skin: Patient denies rash, abscess, wounds or jaundice. Psych: Patient denies symptoms of uncontrolled depression or anxiety. Neuro: Patient admits to headache but she denies paresthesias or focal neurologic deficits. Allergy: Patient denies lip swelling, tongue swelling or urticaria. Hematology: Patient admits to voluminous melanotic stools as per HPI. Endocrinology: Patient denies polyuria, polydipsia or polyphagia. 14 point ROS otherwise negative except for positives noted above in HPI. Vital Signs Vital Signs Vital Signs: 05/15/24 16:48 05/15/24 18:47 05/15/24 20:00 Temperature 97.9 F Temperature Source Temporal Pulse Rate 90 77 Respiratory Rate 20 H 18 Blood Pressure 130/54 H 137/48 H 128/41 H Blood Pressure Mean 79 77 70 Pulse Ox 95 95 95 Oxygen Delivery Method Room Air Room Air Room Air 05/15/24 20:55 Temperature 98.4 F Temperature Source Pulse Rate 70 Respiratory Rate 18 Blood Pressure 138/60 H Blood Pressure Mean 86 Pulse Ox 97 Oxygen Delivery Method Weight Weight: 204 lb 5.896 oz Body Mass Index (BMI) 35.0 Physical Exam Const alert, oriented x3 and no apparent distress Constitutional Narrative: Obese with chronically ill appearance. General Appearance: cooperative HEENT normocephalic, head/scalp atraumatic, hearing grossly normal bilaterally and moist oral mucous membranes Eyes PERRL and EOMs intact bilaterally Neck no lymphadenopathy and supple Resp Resp Narrative: Diminished breath sounds throughout with scattered rhonci. Cardio regular rate and regular rhythm GI normal to inspection, nondistended, normoactive bowel sounds, soft to palpation and non-distended GI Narrative: Obese with mild generalized TTP. Extremity normal to inspection, full ROM and no clubbing, cyanosis or edema Skin Skin Narrative: Patient has no evidence of rash, abscess, wounds or jaundice. Neuro oriented x3, CN's II-XII intact bilaterally, moves all extremities and no focal motor deficits Sensorium / Orientation: awake, alert, oriented to person, oriented to place andoriented to time Speech: speech normal Psych affect normal Results Medical Records Data Attestation: I reviewed the patient's medical records Lab / Micro Data Attestation: I reviewed the patient's lab results. 05/16/24 05:47 05/15/24 17:15 Labs: Laboratory Results - last 24 hr 05/15/24 17:15: WBC 7.2, RBC 4.16 L, Hgb 11.5 L, Hct 35.3 L, MCV 84.9, MCH 27.6,MCHC 32.6, RDW Std Deviation 45.5 H, RDW Coeff of Rukhsana 14.6, Plt Count 154, MPV 11.4, Immature Gran % (Auto) 0.400, Neut% (Auto) 67.4, Lymph % (Auto) 21.6, [place] % (Auto) 10.2 H, Eos % (Auto) 0.1, Baso % (Auto) 0.3, Absolute Neuts (auto) 4.8, Absolute Lymphs (auto) 1.55, Nucleated RBC % 0, PT 19.9 H, INR 1.7, Sodium 135, Potassium 3.8, Chloride 100, Carbon Dioxide 21.2, Anion Gap 13, BUN 27 H, Creatinine 1.23 H, Estim Creat Clear Calc 42.94 L, Est GFR (MDRD) Non-Af 46 L, BUN/Creatinine Ratio 22.1 H, Glucose 222 H, Calcium 9.2, Total Bilirubin 0.67, AST 52 H, ALT 26, Alkaline Phosphatase 68, Total Protein 7.1, Albumin 3.6, Globulin 3.5, Albumin/Globulin Ratio 1.0 05/15/24 17:30: Blood Type O POSITIVE, Antibody Screen NEGATIVE Micro: Microbiology 05/15/24 17:15 Stool Stool Occult Blood (MANDY) - Final Imaging [facility] Imaging Services [address] [place] [address] [id number] Chest without Contrast MR#: [id number] Acct: [id number] Name: LAISHA WALKER Rep #: [id number] : 1950 F 74 From: [place] Wharton MD PCP: Dr. Flako Tracy MD Status: ADM IN Study: Chest without Contrast Date of Exam: 05/16/24 Exam# [id number] Ordering Dr: South Jesus DO PROCEDURE: CHEST WITHOUT CONTRAST REASON FOR EXAM: CONGESTED COUGH AFTER RECENT INFLUENZA A; ?PNA TECHNIQUE: Chest CT without contrast. COMPARISON: Chest x-ray performed on May 14, 2024. FINDINGS: Pacemaker device overlying the left chest. The trachea and central bronchial tree are patent. Thereis no pleural or pericardial effusion. The heart is normal in size. There are shotty lymph nodes within the mediastinum, which are nonspecific. There is no pneumothorax. There are streaky changes within the left upper lobe and lingula, which may represent subsegmental atelectasis versus scarring (best seen on image 78 and image 97 of 121). There are subcentimeter pulmonary nodules present. For example there is a 2 mm right lower lobe nodule best seen on image 80/121. No evidence of pneumoniais seen. No acute osseous abnormalities identified. Extensive atheromatous calcification seen within the thoracic aorta without evidence of aneurysmal dilatation. Calcified nodules seen within the bilateral thyroid, incompletely characterized. CT/Chest without Contrast IMPRESSION: Minor scarring. Versus subsegmental atelectasis within the left lung. No definite evidence of pneumonia. Other findings as above. One or more dose reduction techniques were used (e.g., Automated exposure control, adjustment of the mA and/or kV according to patient size, use of iterative reconstruction technique). Reading Location: [id number] CC: Dr. South Jesus DO; Dr. Flako Tracy MD ~ Account Group Supervisor: Signed - ------ [facility] Imaging Services [address] [place] [id number] Brain/Head without Contrast MR#: [id number] Acct: [id number] Name: LAISHA WALKER Rep #: [id number] : 1950 F 74 From: [place] Wharton MD PCP: Dr. Flako Tracy MD Status: ADM IN Study: Brain/Head without Contrast Date of Exam: 05/16/24 Exam# [id number] Ordering Dr: South Jesus DO EXAM: BRAIN/HEAD WITHOUT CONTRAST CLINICAL HISTORY: MAXIALLARY SINUS PAIN AND PRESSURE. ?SINUSITIS. COMPARISON: CT brain without contrast dated 07/15/2023. TECHNIQUE: CT of the brain was performed without intravenous contrast. Multiplanar reformats were obtained afterwards. FINDINGS: There is no acute intracranial hemorrhage, mass effect or midline shift. There are no abnormal extra-axial fluid collections present. The ventricles and sulci are within normal limits. Bilateral basal ganglia calcifications are present. Mucoperiosteal thickening seen within the bilateral ethmoids. The maxillary sinuses, frontal sinuses, sphenoid sinuses are well aerated. The mastoids are unremarkable. The calvarium is intact. CT/Brain/Head without Contrast IMPRESSION: Mild mucoperiosteal thickening involving the bilateral ethmoids. Correlate clinically for sinus disease. No acute intracranial hemorrhage, mass effect or midline shift. Reading Location: [facility] CC: Dr. South Jesus DO; Dr. Flako Tracy MD ~ Account Group Supervisor: Signed Assessment & Plan Assessment/Plan (1) UGIB (upper gastrointestinal bleed): (2) Melanotic stools: (3) Adverse drug reaction: QUALIFIERS: Encounter type: initial encounter Qualified Code(s): T50.905A - Adverse effect of unspecified drugs, medicaments and biological substances, initial encounter (4) Influenza A: (5) Ethmoidal sinusitis: QUALIFIERS: Chronicity: unspecified Qualified Code(s): J32.2 - Chronic ethmoidal sinusitis (6) Cirrhosis of liver not due to alcohol: (7) Obesity (BMI 30-39.9): (8) PAF (paroxysmal atrial fibrillation): PLAN: Plan 1. UGIB causing melanotic stools in the setting of previously known OrthostaticHypotension - Admit to PCU. Keep strict n.p.o. and continue IV pantoprazole infusion. Give ondansetron IV as needed nausea vomiting. Give morphine IV as needed severe (level 6-10/10) pain. Finally, we will consult gastroenterologistto see patient on rounds in the a.m. for further recommendations regarding EGD this admission with help appreciated in advance. 2. Adverse Drug Reaction to warfarin in the setting of suspected PUD precipitating #1 - Hold warfarin until further notice. 3. Recently diagnosed Influenza A with persistent low-grade fever plus sinus/chest congestion with Sinusitis complicating #1 & #2 - Checked CT's without contrast to confirm suspicion of suspectedbacterial pneumonia and sinusitis with CT negative for pneumonia but positive for evidence of Ethmoid Sinusitis. Start empiric IV ceftriaxone and IV azithromycin. 4. History of KIDD; with cirrhosis in the setting of ongoing Obesity; with BMI of 35.2 this admission adding to the medical complexity of #1 - #3 - Weight losswill be recommended. Check TSH. GI to consult and decide on plan. This complicates her case and may hamper recovery. 5. Paroxysmal atrial fibrillation; on warfarin compounding #1 - #4 - Hold warfarin until further notice. 6. History of thrombosed hemorrhoids; with history of BRBPR (2022) - Noted. 7. Chronic Anemia in the setting of known CKD; stage IIIa - Stable. Check renal indices daily to ensure continued stability. 8. History of Renal Carcinoma; s/p partial Right nephrectomy - Stable. 9. Essential Hypertension; on losartan and metoprolol - Hold scheduled antihypertensives in light of #1. 10. Hyperlipidemia; on rosuvastatin - Restart stain when patient cleared for oral intake. 11. History of goiter - Noted. Check TSH. 12. DM-2; of unknown control on glipizide 10 mg p.o. twice daily - Keep NPO. FSBS q. 6 hours plus cover with lowest intensity SSI. Check HgbA1c to objectively evaluate quality of diabetic control. 13. History of CHB; s/p PPM (2022) - Stable. 14. History of DVT - Noted. 15. History of TIA/CVA - Noted with no signs of recurrence at this time. 16. History of asymmetric septal hypertrophy - Noted. 17. History of bilateral carotid stenosis (2020) - Noted. 18. History of sepsis - Noted. 19. History of torticollis - Stable. 20. OA; with history of bilateral TKR's and chronic Left hip pain - Stable. 21. DVT prophylaxis - SCD's only in light of #1. Total time: Approximately (but not less than) 75 minutes. Charges/Coding Visit Charges Inpatient E&M: 00180 Init Hosp L3 05/16/24 0706 Cosigner Signature (if applicable): CC: Dr. South Jesus DO; Dr. Flako Tracy MD~ Signed [facility]03-12-2025 Radiology Diagnostic study note [facility] Imaging Services [address] [place], [place] [id number] Chest without Contrast MR#: [id number] Acct: [id number] Name: LAISHA WALKER Rep #: [id number] : 1950 F 74 From: Mandy Wharton MD PCP: Dr. Flako Tracy MD Status: AD M IN Study:Chest without Contrast Date of Exam: 05/16/24 Exam# [id number] Ordering Dr: South Mcdowell DO PROCEDURE: CHEST WITHOUT CONTRAST REASON FOR EXAM: CONGESTED COUGH AFTER RECENT INFLUENZA A; ?PNA TECHNIQUE: Chest CT without contrast. COMPARISON: Chest x-ray performed on May 14, 2024. FINDINGS: Pacemaker device overlying the left chest. The trachea and central bronchial tree are patent. Thereis no pleural or pericardial effusion. The heart is normal in size. There are shotty lymph nodes within the mediastinum, which are nonspecific. There is no pneumothorax. There are streaky changes within the left upper lobe and lingula, which may represent subsegmental atelectasis versus scarring (best seen on image 78 and image 97 of 121). There are subcentimeter pulmonary nodules present. For example there is a 2 mm right lower lobe nodule best seen on image 80/121. No evidence of pneumoniais seen. No acute osseous abnormalities identified. Extensive atheromatous calcification seen within the thoracic aorta without evidence of aneurysmal dilatation. Calcified nodules seen within the bilateral thyroid, incompletely characterized. CT/Chest without Contrast IMPRESSION: Minor scarring. Versus subsegmental atelectasis within the left lung. No definite evidence of pneumonia. Other findings as above. One or more dose reduction techniques were used (e.g., Automated exposure control, adjustment of the mA and/or kV according to patient size, use of iterative reconstruction technique). Reading Location: [id number] CC: Dr. South Jesus DO; Dr. Flako Tracy MD ~ Account Group Supervisor: Signed [facility]03-12-2025 Radiology Diagnostic study note [facility] Imaging Services [address] [place], [place] [id number] Brain/Head without Contrast MR#: [id number] Acct: [id number] Name: LAISHA WALKER Rep #: [id number] : 1950 F 74 From: Mandy Wharton MD PCP: Dr. Flako Tracy MD Status: AD M IN Study:Brain/Head without Contrast Date of Exa m: 05/16/24 Exam# [id number] Ordering Dr: South Mcdowell DO EXAM: BRAIN/HEAD WITHOUT CONTRAST CLINICAL HISTORY: MAXIALLARY SINUS PAIN AND PRESSURE. ?SINUSITIS. COMPARISON: CT brain without contrast dated 07/15/2023. TECHNIQUE: CT of the brain was performed without intravenous contrast. Multiplanar reformats were obtained afterwards. FINDINGS: There is no acute intracranial hemorrhage, mass effect or midline shift. There are no abnormal extra-axial fluid collections present. The ventricles and sulci are within normal limits. Bilateral basal ganglia calcifications are present. Mucoperiosteal thickening seen within the bilateral ethmoids. The maxillary sinuses, frontal sinuses, sphenoid sinuses are well aerated. The mastoids are unremarkable. The calvarium is intact. CT/Brain/Head without Contrast IMPRESSION: Mild mucoperiosteal thickening involving the bilateral ethmoids. Correlate clinically for sinus disease. No acute intracranial hemorrhage, mass effect or midline shift. Reading Location: [id number] CC: Dr. South Jesus DO; Dr. Flako Tracy MD ~ Account Group Supervisor: Signed [facility]03-12-2025 Evaluation note* Diagnosis Onset Date Resolution Status Admit Date Adverse drug reaction resolved May 10:27pm Debility resolved May 15 10:27pm Ethmoidal sinusitis resolved May 15, 2024 10:27pm GI bleed resolved May 15 10:27pm Influenza A resolved May 15 10:27pm Melanotic stools resolved May 152024 10:27pm UGIB (upper gastrointestinal bleed) resolved May 15, 2024 10:27pm Cirrhosis of liver not due t o alcohol inactive May 15, 2024 10:27pm Obesity (BMI 30-39.9) inactive May 2024 10:27pm PAF (paroxysmal atrial fibrillation) inactive May 15, 2024 10:27pm Debility acute June 02 7:13am Dysuria acute June 02 7:13am Elevated troponin resolved May 062024 7:13am Fall resolved June 02 7:13am Generalized weakness resolved [facility] 2024 7:13am 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 inactive June 02, 2024 7:13am Duodenal ulcer acute June 13, 2024 1:50pm Abdominal pain chronic June 13, 2024 1:50pm Cirrhosis chronic June 13 1:50pm Elevated CA 19-9 level chronic Ap 2024 1:50pm Left carotid artery occlusion acute June 22, 2024 8:24am Stenosis of right carotid artery acu te June 22, 2024 8:24am [facility] Work Phone: 1(540) 513-709403-11-2025 Telephone encounter Note* Telephone Encounter - Vickie Gaines RN - 05/15/2024 3:53 PM EDT Pt reports her stools are pure black today. Reports a lot of black liquid. Abdomen upper and lower bloated/distended, nausea, dizziness, weakness, legs are giving out on her- losing balance when walks. Protocol recommends ER Now. Pt agreeable and states her will drive her. Reason for Disposition [1] Stool color is black (not dark green) AND [2] patient hasn't swallowed substance that causes black stools (e.g., Pepto-Bismol, iron pills) Black or tarry bowel movements (Exception: Chronic-unchanged black-lowe BMs AND is taking iron pills or Pepto-Bismol.) Answer Assessment - Initial Assessment Questions 1. COLOR: A lot of black liquid stool today twice. Pt states it is pure black. 2. ONSET: Today 3:30 pm 3. CAUSE: Has only eaten cream of wheat today. Has not taken pepto bismol or iron- has not taken her MVI for days. 4. OTHER SYMPTOMS: Liquid stool twice - 2nd time that looked like coffee. Nausea. Dizziness. Weakness. Tired. Legs have given out on her twice. Moderate abdominal cramping-bloated both upper and lower abdomen. Has been having a fever. Today temp 101. Reports she's had the flu since Tuesday. Takingzofran for nausea. Went to [facility] ER Tuesday. Having dizziness more since she's been sick- has a pacemaker. Losing balance when walks. Has weakness in shoulders and legs for 4-5 mths. Taking 2.5 mg daily5 mg 2 days / week coumadin for a-fib- not sure if she had missed doses. Also taking metoprolol. Protocols used: Stools - Unusual Wrkhx-WVPSR-XT, Rectal Lhptwlag-YZCBD-PR [facility]03-11-2025 Miscellaneous Notes* Telephone Encounter - Vickie Gaines RN - 05/15/2024 3:53 PM EDT Pt reports her stools are pure black today. Reports a lot of black liquid. Abdomen upper and lower bloated/distended, nausea, dizziness, weakness, legs are giving out on her- losing balance when walks. Protocol recommends ER Now. Pt agreeable and states her will drive her. Reason for Disposition [1] Stool color is black (not dark green) AND [2] patient hasn't swallowed substance that causes black stools (e.g., Pepto-Bismol, iron pills) Black or tarry bowel movements (Exception: Chronic-unchanged black-lowe BMs AND is taking iron pills or Pepto-Bismol.) Answer Assessment - Initial Assessment Questions 1. COLOR: A lot of black liquid stool today twice. Pt states it is pure black. 2. ONSET: Today 3:30 pm 3. CAUSE: Has only eaten cream of wheat today. Has not taken pepto bismol or iron- has not taken her MVI for days. 4. OTHER SYMPTOMS: Liquid stool twice - 2nd time that looked like coffee. Nausea. Dizziness. Weakness. Tired. Legs have given out on her twice. Moderate abdominal cramping-bloated both upper and lower abdomen. Has been having a fever. Today temp 101. Reports she's had the flu since Tuesday. Takingzofran for nausea. Went to [facility] ER Tuesday. Having dizziness more since she's been sick- has a pacemaker. Losing balance when walks. Has weakness in shoulders and legs for 4-5 mths. Taking 2.5 mg daily5 mg 2 days / week coumadin for a-fib- not sure if she had missed doses. Also taking metoprolol. Protocols used: Stools - Unusual Fkquu-ZSHUI-IC, Rectal Qgcgiuof-PWKOX-BI documented in [facility] encounterSt[facility] Telephone encounter Note * Telephone Encounter - Mary Bach RN - 05/14/2024 9:27 AM EDT Patient calls and states that she is needing a new meter since insurance will not cover previous meter and strips. The patient has been identified by name and date of : Yes Caregiver verified no other encounters exist for this prescription request: Yes Caregiver confirmed with patient/requestor that no other refills are due, in the near future, with this provider at this time: Yes The last office visit in the department: 02/16/2024 Does the patient have a future office visit with this provider/department: Yes 08/24/2024 Requested Prescriptions Pending Prescriptions Disp Refills Blood-Glucose Meter monitoring kit 1 Each 0 Sig: Glucose Meter of Choice - Kit - Dx: Type 2 DM - Controlled E11.9 Check sugars 1 time daily Mary Bach RN May 14, 2024 9:[address] [facility]03-10-2025 Miscellaneous Notes* Telephone Encounter - Mary Bach RN - 05/14/2024 9:27 AM EDT Patient calls and states that she is needing a new meter since insurance will not cover previous meter and strips. The patient has been identified by name and date of : Yes Caregiver verified no other encounters exist for this prescription request: Yes Caregiver confirmed with patient/requestor that no other refills are due, in the near future, with this provider at this time: Yes The last office visit in the department: 02/16/2024 Does the patient have a future office visit with this provider/department: Yes 08/24/2024 Requested Prescriptions Pending Prescriptions Disp Refills Blood-Glucose Meter monitoring kit 1 Each 0 Sig: Glucose Meter of Choice - Kit - Dx: Type 2 DM - Controlled E11.9 Check sugars 1 time daily Mary Bach RN May 14, 2024 9:27 AM documented in this encounterSt. [facility]03-10-2025 Radiology Diagnostic study note [facility] [address] [place] [id number] Chest 1 View (Portable) MR#: [id number] Acct: [id number] Name: LAISHA WALKER Rep #: [id number] : 1950 F 74 From: Emil Coello MD PCP: Dr. Flako Tracy MD Status: RE G ER Study:Chest 1 View (Portable) Date of Exam: 05/14/24 Exam# [id number] Ordering Dr: Fernando Copeland DO PROCEDURE: CHEST 1 VIEW (PORTABLE) REASON FOR EXAM: Cough TECHNIQUE: Frontal view of the chest. COMPARISON: 01/14/2023 and 01/21/2023 FINDINGS: The lungs appear clear. There is now a homebirth midwife pacemaker present. The cardiac and mediastinal contours appear within limits. Atherosclerotic changes at the aortic arch again noted. No significant intervalchange in appearanceof the osseous visualized osseous structures. RAD/Chest 1 View (Portable) IMPRESSION: No evidence of acute cardiopulmonary disease. Interval placement of homebirth midwife pacemaker now present. Reading Location: [id number] CC: Dr. Flako Tracy MD; Dr. Alexis Copeland DO ~ Account Group Supervisor: Signed [facility]03-10-2025 Radiology Diagnostic study note [facility] [address] [place], [place] [id number] Abdomen/Pelvis without Cont MR#: [id number] Acct: [id number] Name: LAISHA WALKER Rep #: [id number] : 1950 F 74 From: Emil Coello MD PCP: Dr. Flako Tracy MD Status: FL E ER Study:Abdomen/Pelvis without Cont Date of Exa m: 05/13/24 Exam# [id number] Ordering Dr: Fernando Copeland DO PROCEDURE: ABDOMEN/PELVIS WITHOUT CONT REASON FOR EXAM: Abdominal pain TECHNIQUE: Abdomen and pelvis CT without intravenous contrast. Coronal and sagittal reformatted images COMPARISON: None. FINDINGS: Noncontrast technique limits evaluation of the abdominal and pelvic viscera. Lung bases: Clear scar atelectasis in the lingula. Pacemaker. Liver: Nodular liver surface contour suggesting underlying cirrhosis. Gallbladder: Status post cholecystectomy. Spleen: Unremarkable. Pancreas: Unremarkable. Adrenals: Unremarkable. Kidneys: Staple line at the lower pole/portion of the right kidney limited evaluation on noncontrast study. No obvious mass identified. May correlate with prior imaging when available and follow-up as warranted. No renal stones or hydronephrosis. Exophytic 5.5 cm left renal cyst.. Bladder: Unremarkable. Reproductive Organs: Unremarkable. Bowel: No bowel dilation, free air or free fluid.. Appendix: Not identified, no secondary signs. Lymph nodes: No suspicious lymph node enlargement. Vasculature: Major vascular structures are unremarkable. Aortoiliac atherosclerotic calcifications. Peritoneum / Retroperitoneum: No ascites. No free air. Bones: Bailey artifact from partially imaged retrograde right femoral nail. CT/Abdomen/Pelvis without Cont IMPRESSION: No evidence of acute intra-abdominal process. Nodular liver contour surface suggests underlying cirrhosis. Status post cholecystectomy. One or more dose reduction techniques were used (e.g., Automated exposure control, adjustment of the mA and/or kV according to patient size, use of iterative reconstruction technique). Reading Location: [id number] CC: Dr. Flako Tracy MD; Dr. Alexis Copeland, DO ~ Account Group Supervisor: Signed [facility]02-28-2025 Telephone encounter Note* Telephone Encounter - Vickie Gaines RN - 05/04/2024 1:20 PM EST The patient has been identified by name and date of : Yes Caregiver verified no other encounters exist for this prescription request: Yes Caregiver confirmed with patient/requestor that no other refills are due, in the near future, with this provider at this time: Yes The last office visit in the department: 02/16/2024 Does the patient have a future office visit with this provider/department: Yes 08/24/2024 Requested Prescriptions Pending Prescriptions Disp Refills blood sugar diagnostic (BLOOD GLUCOSE TEST) test strip 100 Strip 3 Sig: Test blood sugar(s) 1` times daily. Dx: Type 2 DM - Uncontrolled E11.65 Insulin: No Vickie Gaines RN May 04, 2024 1:[address] [facility]02-28-2025 Miscellaneous Notes* Telephone Encounter - Vickie Gaines RN - 05/04/2024 1:20 PM EST The patient has been identified by name and date of : Yes Caregiver verified no other encounters exist for this prescription request: Yes Caregiver confirmed with patient/requestor that no other refills are due, in the near future, with this provider at this time: Yes The last office visit in the department: 02/16/2024 Does the patient have a future office visit with this provider/department: Yes 08/24/2024 Requested Prescriptions Pending Prescriptions Disp Refills blood sugar diagnostic (BLOOD GLUCOSE TEST) test strip 100 Strip 3 Sig: Test blood sugar(s) 1` times daily. Dx: Type 2 DM - Uncontrolled E11.65 Insulin: No Vickie Gaines RN May 04, 2024 1:22 PM documented in this encounterSt. [facility]02-12-2025 Evaluation note* Diagnosis Onset Date Resolution Status Admit Date Asymmetric septal hypertrophy acute April 18 1:23pm HLD (hyperlipidemia) acute 2024 1:23pm Bilateral carotid artery stenosis October 27, 2020 chronic April 18, 2024 1:23pm Chronic anticoagulation chronic 2024 1:23pm HTN (hypertension) chronic 2024 1:23pm PAF (paroxysmal atrial fibrillation) chronic April 18 1:23pm S/P placement of cardiac pacemaker chronic April 18 1:23pm S/P placement of cardiac pacemaker chronic April 18 1:23pm Complete heart block resolved 2024 1:23pm [facility] Work Phone: 1(559) 567-947502-12-2025 Evaluation note* Diagnosis Onset Date Resolution Status Admit Date Asymmetric septal hypertrophy acute April 18 1:23pm HLD (hyperlipidemia) acute 2024 1:23pm Bilateral carotid artery stenosis October 27, 2020 chronic April 18, 2024 1:23pm Chronic anticoagulation chronic 2024 1:23pm HTN (hypertension) chronic 2024 1:23pm PAF (paroxysmal atrial fibrillation) chronic April 18 1:23pm S/P placement of cardiac pacemaker April 18 1:23pm S/P placement of cardiac pacemaker chronic April 18 1:23pm Complete heart block resolved 2024 1:23pm Adverse drug reaction acute May 10:27pm Cirrhosis of liver not due to alcohol acute May 15, 2024 10:27pm Debility acute May 15 10:27pm Ethmoidal sinusitis acute May 15, 2024 10:27pm GI bleed acute May 15 10:27pm Influenza A acute May 15 10:27pm Melanotic stools acute May 152024 10:27pm Obesity (BMI 30-39.9) acute May 2024 10:27pm UGIB (upper gastrointestinal bleed) acute May 15, 2024 10:27pm PAF (paroxysmal atrial fibrillation) chronic May 15, 2024 10:27pm [facility] Work Phone: 1(376) 901-810302-12-2025 Evaluation note* Diagnosis Onset Date Resolution Status Admit Date Asymmetric septal hypertrophy acute April 18 1:23pm HLD (hyperlipidemia) acute 2024 1:23pm Bilateral carotid artery stenosis October 27, 2020 chronic April 18, 2024 1:23pm Chronic anticoagulation chronic 2024 1:23pm HTN (hypertension) chronic 2024 1:23pm S/P placement of cardiac pacemaker chronic April 18 1:23pm PAF (paroxysmal atrial fibrillation) inactive April 18 1:23pm S/P placement of cardiac pacemaker chronic April 18 1:23pm Complete heart block resolved 2024 1:23pm Adverse drug reaction resolved [facility] 2024 10:27pm Debility resolved May 15 10:27pm Ethmoidal sinusitis resolved May 15, 2024 10:27pm GI bleed resolved May 15 10:27pm Influenza A resolved May 15 10:27pm Melanotic stools resolved May 152024 10:27pm UGIB (upper gastrointestinal bleed) resolved May 15, 2024 10:27pm Cirrhosis of liver not due to alcohol inactive May 15, 2024 10:27pm Obesity (BMI 30-39.9) inactive [facility] 2024 10:27pm PAF (paroxysmal atrial fibrillation) inactive May 15, 2024 10:27pm [facility] Work Phone: 1(300) 517-502402-12-2025 Evaluation note* Diagnosis Onset Date Resolution Status Admit Date Asymmetric septal hypertrophy acute April 18 025 1:23pm HLD (hyperlipidemia) acute 2024 1:23pm Bilateral carotid artery stenosis October 27, 2020 chronic April 18, 2024 1:23pm Chronic anticoagulation chronic F 2024 1:23pm HTN (hypertension) chronic 2024 1:23pm S/P placement of cardiac pacemaker chronic April 18 1:23pm PAF (paroxysmal atrial fibrillation) inactive April 18 1:23pm S/P placement of cardiac pacemaker chronic April 18 1:23pm Complete heart block resolved 2024 1:23pm Adverse drug reaction resolved [facility] 2024 10:27pm Debility resolved May 15 10:27pm Ethmoidal sinusitis resolved May 15, 2024 10:27pm GI bleed resolved May 15 10:27pm Influenza A resolved May 15 10:27pm Melanotic stools resolved May 152024 10:27pm UGIB (upper gastrointestinal bleed) resolved May 15, 2024 10:27pm Cirrhosis of liver not due to alcohol inactive May 15, 2024 10:27pm Obesity (BMI 30-39.9) inactive [facility] 2024 10:27pm PAF (paroxysmal atrial fibrillation) inactive May 15, 2024 10:27pm 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 acute June 02, 2024 7:13am Debility acute June 02 7:13am Elevated troponin acute May 062024 7:13am Fall acute June 02 7:13am Generalized weakness acute 2024 7:13am [facility] Work Phone: 1(785) 385-823802-12-2025 Evaluation note* Diagnosis Onset Date Resolution Status Admit Date Asymmetric septal hypertrophy acute April 18 1:23pm HLD (hyperlipidemia) acute 2024 1:23pm Bilateral carotid artery stenosis October 27, 2020 chronic April 18, 2024 1:23pm Chronic anticoagulation chronic F ebruary 2024 1:23pm HTN (hypertension) chronic 2024 1:23pm S/P placement of cardiac pacemaker chronic April 18 1:23pm PAF (paroxysmal atrial fibrillation) inactive April 18 1:23pm S/P placement of cardiac pacemaker chronic April 18 1:23pm Complete heart block resolved 2024 1:23pm Adverse drug reaction resolved [facility] 2024 10:27pm Debility resolved May 15 10:27pm Ethmoidal sinusitis resolved May 15, 2024 10:27pm GI bleed resolved May 15 10:27pm Influenza A resolved May 15 10:27pm Melanotic stools resolved May 152024 10:27pm UGIB (upper gastrointestinal bleed) resolved May 15, 2024 10:27pm Cirrhosis of liver not due to alcohol inactive May 15, 2024 10:27pm Obesity (BMI 30-39.9) inactive [facility] 2024 10:27pm PAF (paroxysmal atrial fibrillation) inactive May 15, 2024 10:27pm 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 acute June 02, 2024 7:13am Debility acute June 02 7:13am Dysuria acute June 02 7:13am Elevated troponin acute May 062024 7:13am Fall acute June 02 7:13am Generalized weakness acute 2024 7:13am [facility] Work Phone: 1([phone]) 591-317902-12-2025 Evaluation note* Diagnosis Onset Date Resolution Status Admit Date Asymmetric septal hypertrophy acute April 18 1:23pm HLD (hyperlipidemia) acute 2024 1:23pm Bilateral carotid artery stenosis October 27, 2020 chronic April 18, 2024 1:23pm Chronic anticoagulation chronic F ebruary 2024 1:23pm HTN (hypertension) chronic 2024 1:23pm S/P placement of cardiac pacemaker chronic April 18 1:23pm PAF (paroxysmal atrial fibrillation) inactive April 18 1:23pm S/P placement of cardiac pacemaker chronic April 18 1:23pm Complete heart block resolved 2024 1:23pm Adverse drug reaction resolved [facility] 2024 10:27pm Debility resolved May 15 10:27pm Ethmoidal sinusitis resolved May 15, 2024 10:27pm GI bleed resolved May 15 10:27pm Influenza A resolved May 15 025 10:27pm Melanotic stools resolved May 152024 10:27pm UGIB (upper gastrointestinal bleed) resolved May 15, 2024 10:27pm Cirrhosis of liver not due to alcohol inactive May 15, 2024 10:27pm Obesity (BMI 30-39.9) inactive May 10:27pm PAF (paroxysmal atrial fibrillation) inactive May 15, 2024 10:27pm Debility acute June 02 7:13am Dysuria acute June 02 7:13am Elevated troponin resolved May 062024 7:13am Fall resolved June 02 7:13am Generalized weakness resolved 2024 7:13am 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 inactive June 02, 2024 7:13am Duodenal ulcer acute June 13, 2024 1:50pm Abdominal pain chronic June 13, 2024 1:50pm Cirrhosis chronic June 13 1:50pm Elevated CA 19-9 level chronic Ap 2024 1:50pm Left carotid artery occlusion acute June 22, 2024 8:24am Stenosis of right carotid artery acute June 22, 2024 8:24am [facility] Work Phone: 1(272) 617-773101-29-2025 NoteHNO ID: [id number] Author: ZACHARY BEST MA Service: ? Author Type: Divisional Merchandising Manager Type: Progress Notes Filed: 04/04/2024 09:56 Note Text: POPULATION HEALTH NAVIGATION OUTREACH Action/FYI Care gaps due: DIABETIC RETINAL EXAM 05/09/24 Spoke to pt, [place], opted to continue care w them due to having he rhistory. Reason for Outreach Care Gap/HCC or Scheduling Wellness Visits Care Gaps due: Diabetic Eye Exam Patient Contacted: Spoke to patient/parent/or legal guardian Patient identified by name and : Yes Care Gap/HCC/Scheduling Wellness actions taken: Patient declined: Patient Declines Navigation Scheduling / Outreach Updated appointment note Navigation Signature: Zachary Best MA April 04, 2024 9:55 [facility]01-29-2025 History of Present illness Narrative* Zachary Best MA - 04/04/2024 9:55 AM EST POPULATION HEALTH NAVIGATION OUTREACH Action/FYI Care gaps due: DIABETIC RETINAL EXAM 05/09/24 Spoke to pt, gets her eyes checked at an outside location [place], opted to continue care w themdue to having he rhistory. Reason for Outreach Care Gap/HCC or Scheduling Wellness Visits Care Gaps due: Diabetic Eye Exam Patient Contacted: Spoke to patient/parent/or legal guardian Patient identified by name and : Yes Care Gap/HCC/Scheduling Wellness actions taken: Patient declined: Patient Declines Navigation Scheduling / Outreach Updated appointment note Navigation Signature: Zachary Best MA April 04, 2024 9:55 AM documented in this encounterSt. [facility]01-29-2025 NotePatient Outreach (NETNAV) LAISHA WALKER ([id number]) 1950 F Date Time Provider Department 04/04/24 ZACHARY BEST NETKAYV During your visit today, we recorded the following information about you: Zachary Best MA 04/04/2024 9:56 AM Signed POPULATION HEALTH NAVIGATION OUTREACH Action/FYI Care gaps due: DIABETIC RETINAL EXAM 05/09/24 Spoke to pt, gets her eyes checked at an outside location [place], opted to continue care w them due to having he rhistory. Reason for Outreach Care Gap/HCC or Scheduling Wellness Visits Care Gaps due: Diabetic Eye Exam Patient Contacted: Spoke to patient/parent/or legal guardian Patient identified by name and : Yes Care Gap/HCC/Scheduling Wellness actions taken: Patient declined: Patient Declines Navigation Scheduling / Outreach Updated appointment note Navigation Signature: Zachary Best MA April 04, 2024 9:55 AM Allergies As of Date: 04/04/2024 Noted Allergy Reaction GABAPENTIN 11/03/2021 14 - Other: See Comments Comments: Dizziness ACCUPRIL (QUINAPRIL HCL) 07/05/2005 14 - Other: See Comments BEXTRA (VALDECOXIB) 07/05/2005 8 - GI Upset CELEBREX (CELECOXIB) 07/05/2005 8 - GI Upset Comments: CODEINE 07/05/2005 14 - Other: See Comments ENTEX LA (PHENYLEPHRINE-GUAIFENES*07/05/2005 14 - Other: See Comments GLUCOPHAGE (METFORMIN HCL) 07/05/2005 14 - Other: See Comments LIPITOR (ATORVASTATIN CALCIUM) 07/05/2005 14 - Other: See Comments LODINE (ETODOLAC) 07/05/2005 8 - GI Upset NAPROSYN (NAPROXEN) 07/05/2005 14 - Other: See Comments NSAIDS (NON-STEROIDAL ANTI-INFLAM*12/06/2019 14 - Other: See Comments PRAVACHOL (PRAVASTATIN SODIUM) 07/05/2005 14 - Other: See Comments Comments: Worsening abdominal pain SULFA (SULFONAMIDE ANTIBIOTICS) 07/08/2014 8 - GI Upset ULTRACET (TRAMADOL-ACETAMINOPHEN) 07/05/2005 14 - Other: See Comments VICODIN (HYDROCODONE-ACETAMINOPHE*07/05/2005 14 - Other: See Comments VIOXX (ROFECOXIB) 07/05/2005 14 - Other: See Comments ZOCOR (SIMVASTATIN) 07/05/2005 14 - Other: See Comments Date Reviewed: 02/16/2024 Reviewed by: Meggan Bartlett LPN - Fully Assessed Reason for Visit: Population Health Navigation Outreach [3910] Cmt: Ella high risk attempt 1 Prescriptions as of 04/04/2024 - glipiZIDE (GLUCOTROL XL) 10mg 24 hr tablet Take 1 tablet by mouth two times a day. - metoprolol tartrate, short acting, (LOPRESSOR) 50 mg tablet Take 50 mg by mouth two times a day. - rosuvastatin (CRESTOR) 10 mg tablet Take 20 mg by mouth once daily. - losartan (COZAAR) 25 mg tablet Take 0.5 tablets by mouth every afternoon. - warfarin (COUMADIN) 5 mg tablet 2.5 mg //Tuesday, 5 mg all other days or as directed - docusate sodium (STOOL SOFTENER ORAL) Take by mouth as needed. OTC - blood sugar diagnostic (BLOOD GLUCOSE TEST) test strip Test blood sugar(s) 1` times daily. Dx: Type 2 DM - Uncontrolled E11.65 Insulin: No - Lancets lancets Test blood sugar(s) 1` times daily. Dx: Type 2 DM - Uncontrolled E11.65 Insulin: No - hydrocortisone (ANUSOL-HC) 2.5 % rectal cream by RECTAL route twice daily. - multivitamin (MULTIPLE VITAMINS ORAL) Take by mouth. - alcohol swabs (ALCOHOL PREP PADS) Apply 1 application to affected area once daily. - loratadine (CLARITIN) 10 mg tablet Take 10 mg by mouth once daily. - acetaminophen (TYLENOL) 325 mg tablet Take 500 mg by mouth. 2 TABLETS AT HS Problem List As Of Date 04/04/2024 Noted Resolved LUMBAGO [M54.50] 07/06/2005 ENTHESOPATHY OF HIP [M76.899] 07/06/2005 SPRAIN LUMBAR REGION [S33.5XXA] 07/06/2005 Dyslipidemia associated with type 2 diabetes me* Paroxysmal atrial fibrillation (HCC) [I48.0] 01/15/2023 Carotid stenosis, asymptomatic [I65.29] Right renal mass [N28.89] 05/18/2019 Obesity, Class II, BMI 35-39.9 [E66.812] 05/19/2019 Renal carcinoma, right (HCC) [C64.1] 05/20/2019 01/21/2023 Other cirrhosis of liver (HCC) [K74.69] 05/23/2020 Stage 3a chronic kidney disease (HCC) [N18.31] 08/10/2022 Obesity, Class I, BMI 30-34.9 [E66.811] 11/19/2022 01/22/2023 Anticoagulant long-term use [Z79.01] 11/24/2022 Third degree atrioventricular block (HCC) [I44.*01/22/2023 Bradycardia [R00.1] 01/22/2023 At risk for stroke [Z91.89] 01/22/2023 Bilateral carotid artery stenosis [I65.23] 10/10/2016 Diagnosed: 01/22/2023 Gastroesophageal reflux disease [K21.9] 01/22/2023 Diagnosed: 01/22/2023 Hyperlipidemia [E78.5] 01/22/2023 Diagnosed: 01/22/2023 Recurrent falls [R29.6] 01/22/2023 Diagnosed: 01/22/2023 Orthostatic hypotension [I95.1] 01/17/2023 Diagnosed: 01/22/2023 Holley-Mary syncope [I45.9] 01/22/2023 Diabetes mellitus type 2 in obese (HCC) [E11.6*01/22/2023 S/P placement of cardiac pacemaker [Z95.0] 01/25/2023 Encounter Status:Closed by ZACHARY BEST on 04/04/24[facility] 02-24-2024 Telephone encounter Note* Telephone Encounter - Meggan Chaudhari RN - 02/24/2024 9:49 AM EST Pt called and is notified of results and given providers message. Pt voices understanding. [facility]12-20-2024 Miscellaneous Notes* Telephone Encounter - Meggan Chaudhari RN - 02/24/2024 9:49 AM EST Pt called and is notified of results and given providers message. Pt voices understanding. * Telephone Encounter - Georgie Stallworth APRN.CNP - 02/24/2024 9:15 AM EST Can you please call the patient and let her know that I reviewed her lab results. Labs were relatively normal, glucose was elevated. I would like her to monitor this at home. Work on eating a low-carb diet. Calcium was mildly elevated but PTH was normal. I would like her to get repeat labs in 6 months prior to next visit. Please let me know if she has any questions. Thank you. Georgie Stallworth APRN.JASEN documented in this encounterSt. [facility]12-[facility] Telephone encounter Note * Telephone Encounter - Georgie Stallworth APRN.CNP - 02/24/2024 9:15 AM EST Can you please call the patient and let her know that I reviewed her lab results. Labs were relatively normal, glucose was elevated. I would like her to monitor this at home. Work on eating a low-carb diet. Calcium was mildly elevated but PTH was normal. I would like her to get repeat labs in 6 months prior to next visit. Please let me know if she has any questions. Thank you. Georgie Stallworth APRN.CNP [facility]12-13-2024 Telephone encounter Note* Telephone Encounter - Georgie Stallworth APRN.CNP - 02/17/2024 1:34 PM EST Lab orders placed, thank you Georgie Stallworth APRN.CNP [facility]12-13-2024 Miscellaneous Notes* Telephone Encounter - Georgie Stallworth APRN.CNP - 02/17/2024 1:34 PM EST Lab orders placed, thank you Georgie Stallworth APRN.CNP * Telephone Encounter - Meggan Bartlett LPN - 02/17/2024 1:29 PM EST Patient notified of Rx, verbalizes understanding of instructions. Please put in calcium in one month. Meggan Bartlett LPN * Telephone Encounter - Georgie Stallworth APRN.CNP - 02/17/2024 1:21 PM EST Can you please call the patient back and let her know that I sent in an updated prescription for glipizide 10 mg twice daily to her pharmacy. In regards to her liver enzyme, this is mildly elevated by 1 point. I would not be concerned however she is due to have a follow-up with her c d still operator. We can recheck labs in a month to verify calcium level. Let me know what she prefers. In regards to her back, orthopedics will probably recommend that she complete physical therapy to help with her back, they may be able to offer a back injection which may help provide her with relief. The following approved medication requests have been transmitted electronically. Requested Prescriptions Signed Prescriptions Disp Refills glipiZIDE (GLUCOTROL XL) 10mg 24 hr tablet 60 tablet 5 Sig: Take 1 tablet by mouth two times a day. Authorizing Provider: GEORGIE STALLWORTH APRN.CNP * Telephone Encounter - Tresa Noriega LPN - 02/17/2024 12:57 PM EST Phoned patient went over results, notes from Georgie Nicholson PRODUCER ASSISTANT. Patient has questions concerning her elevated calcium level and liver function AST elevated also. She said with her fatty liver and cirrhosis of the liver. She has sharp pain right upper quadrant off and on and bloating. If she needs to do any follow up with that? She did not discuss that yesterday since it was a wellness visit. She needs new rx for the Glipizide since dose is being increased. She uses [facility] for her pharmacy. Patient asking if she should see Ortho for her back or not? since she has arthritis in her knees and had knee replacement done. * Telephone Encounter - Georgie Stallworth APRN.CNP - 02/17/2024 12:28 PM EST Can you please call the patient and let her know that I reviewed her x-ray of her low back and lab results. A1c went up from 7.5 to 7.6. Mild decreased kidney function but stable.Triglycerides were elevated.I would recommend increasing the glipizide 10 mg twice daily. Get repeat labs in 6 months prior to next office visit. Please let me know what she prefers. X-ray showed no fractures. There is mild arthritis in the low back as well as some mild osteophyte formation. I would recommend that she continue with Tylenol as needed. Continue supportive care at home, may consider physical therapy in the future. If pain does not improve I can place a consult forpain management. Please let me know if she has any questions. Thank you. Georgie Stallworth APRN.JASEN documented in this encounterSt. [facility]12-[facility] Telephone encounter Note * Telephone Encounter - Meggan Bartlett LPN - 02/17/2024 1:29 PM EST Patient notified of Rx, verbalizes understanding of instructions. Please put in calcium in one month. Meggan Bartlett LPN [facility]12-13-2024 Telephone encounter Note* Telephone Encounter - Georgie Stallworth APRN.CNP - 02/17/2024 1:21 PM EST Can you please call the patient back and let her know that I sent in an updated prescription for glipizide 10 mg twice daily to her pharmacy. In regards to her liver enzyme, this is mildly elevated by 1 point. I would not be concerned however she is due to have a follow-up with her c d still operator. We can recheck labs in a month to verify calcium level. Let me know what she prefers. In regards to her back, orthopedics will probably recommend that she complete physical therapy to help with her back, they may be able to offer a back injection which may help provide her with relief. The following approved medication requests have been transmitted electronically. Requested Prescriptions Signed Prescriptions Disp Refills glipiZIDE (GLUCOTROL XL) 10mg 24 hr tablet 60 tablet 5 Sig: Take 1 tablet by mouth two times a day. Authorizing Provider: GEORGIE STALLWORTH APRN.JASEN [facility]12-13-2024 Telephone encounter Note* Telephone Encounter - Tresa Noriega LPN - 02/17/2024 12:57 PM EST Phoned patient went over results, notes from Georgie Nicholson PRODUCER ASSISTANT. Patient has questions concerning her elevated calcium level and liver function AST elevated also. She said with her fatty liver and cirrhosis of the liver. She has sharp pain right upper quadrant off and on and bloating. If she needs to do any follow up with that? She did not discuss that yesterday since it was a wellness visit. She needs new rx for the Glipizide since dose is being increased. She uses [facility] for her pharmacy. Patient asking if she should see Ortho for her back or not? since she has arthritis in her knees and had knee replacement done. [facility]12-13-2024 Telephone encounter Note* Telephone Encounter - Georgie Stallworth APRN.JASEN - 02/17/2024 12:28 PM EST Can you please call the patient and let her know that I reviewed her x-ray of her low back and lab results. A1c went up from 7.5 to 7.6. Mild decreased kidney function but stable.Triglycerides were elevated.I would recommend increasing the glipizide 10 mg twice daily. Get repeat labs in 6 months prior to next office visit. Please let me know what she prefers. X-ray showed no fractures. There is mild arthritis in the low back as well as some mild osteophyte formation. I would recommend that she continue with Tylenol as needed. Continue supportive care at home, may consider physical therapy in the future. If pain does not improve I can place a consult forpain management. Please let me know if she has any questions. Thank you. Georgie Stallworth APRN.MORTICIAN INVESTIGATOR [facility]12-12-2024 History of Present illness Narrative* Teddy Flynn, RT(R) - 02/16/2024 12:20 PM EST Radiology Service Progress Note PATIENT NAME: Laisha Walker DATE OF SERVICE: February 16, 2024 TIME: 11:58 AM PATIENT IDENTITY VERIFICATION COMPLETED USING TWO (2) IDENTIFIERS: Name and Date of confirmedby patient verbally. FALL SCREENING: Has the patient had 2 falls in the last year or 1 fall with injury or currently using an Ambulatory Assistive Device (Walker, Cane, Wheelchair, Crutches, etc.)? No PATIENT GENDER DATA: Female. status: : No status: NO. PATIENT RELEVANT IMPLANT DATA REVIEWED: Yes PATIENT PRESENTS WITH AN IMPLANTABLE OR ATTACHED ORE CHARGER: No RADIOLOGY DEPARTMENT: General X-ray: Exam(s) Completed: Spine X-Ray(s): Lumbar AP / LAT / L5-S1 PERIPHERAL IV DATA: Not applicable SIGNED BY: RT Heather(R) February 16, 2024 11:58 AM documented in this encounterSt. [facility]12-12-2024 NoteHNO ID: [id number] Author: TEDDY FLYNN RT(R) Service: ? Author Type: Blow Down Operator Type: Progress Notes Filed: 02/16/2024 12:12 Note Text: Radiology Service Progress Note PATIENT NAME: Laisha Walker DATE OF SERVICE: February 16, 2024 TIME: 11:58 AM PATIENT IDENTITY VERIFICATION COMPLETED USING TWO (2) IDENTIFIERS: Name and Date of confirmed by patient verbally. FALL SCREENING: Has the patient had 2 falls in the last year or 1 fall with injury or currently using an Ambulatory Assistive Device (Walker, Cane, Wheelchair, Crutches, etc.)? No PATIENT GENDER DATA: Female. status: : No status: NO. PATIENT RELEVANT IMPLANT DATA REVIEWED: Yes PATIENT PRESENTS WITH AN IMPLANTABLE OR ATTACHED ORE CHARGER: No RADIOLOGY DEPARTMENT: General X-ray: Exam(s) Completed: Spine X-Ray(s): Lumbar AP / LAT / L5-S1 PERIPHERAL IV DATA: Not applicable SIGNED BY: RT Heather(R) February 16, 2024 11:58 [facility]12-12-2024 Instructions* Patient Instructions* Georgie Stallworth APRN.MORTICIAN INVESTIGATOR - 02/16/2024 11:14 AM EST Get labs completed today and then again in 6 months prior to next visit Any recurrent UTI recommend seeing Urology, [facility], Dr. Salas Recommend wearing compression socks during the day and elevate when possible. Recommend follow up with GI, Dr. Coates Keep scheduled appointments with Cardiology May consider Colonoscopy in the future, may discuss with Dr. Coates Follow up in 6 months documented in this encounterSt. [facility]12-12-20[facility] History of Present illness Narrative* Georgie Stallworth APRN.JASEN - 02/16/2024 11:00 AM EST Images from the original note were not included. Laisha Walker is a 73 year old female here for a Medicare wellness visit. Medicare Health Risk Assessment General Health Fair Exercise: Minutes/Day 0 min Exercise: Days/Week 0 days Alcohol: Daily Use Never Alcohol: Drinks/Day Patient does not drink Alcohol: 6 or more drinks Never Feel off balance Yes Concerns: Teeth/Dentures Yes Concerns: Sexual function No Troubled by feelings None of the above Frequency: Eating healthy diet Nearly every day ADLs requiring help Housework; Sitting or standing; Walking; Managing urine leakage Safety precautions in home/vehicle Yes Smoke, vape, chews tobacco No Difficulty hearing Yes Difficulty seeing No Current Providers Specialists: I have reviewed specialist-related care of the patient in the medical record. Cardiology: [facility], yearly. Medical/Family history review Reviewed and updated problem list, medical/surgical/family/social history, medications, and allergies. Opioid use review Opioid Medications (last 90 days) No data to display Depression Screening DEPRESSION SCREENING Ordered at: 02/16/24 1110 Based on score and interview, patient is: Not at risk for depression Screening tool discussed with patient, and I recommend: No further intervention at this time PHQ-2 Score: 0 ANXIETY SCREENING Ordered at: 02/16/24 1110 Based on score and interview, patient is: Not at risk for anxiety Screening tool discussed with patient, and I recommend: No further intervention at this time ALAN-2 Score: 0 Cognitive screening Mini Cog Score: 5 Cognitive screening reviewed and No further action needed (score 3-5). Functional Observation Was the patient's Timed Up & Go test unsteady or >= 12 seconds? No Advance Care Planning Surrogate decision maker and/or advance care plan documented Measurements BP 130/64 Pulse 60 Resp 16 Ht 160 cm (5' 2.99) Wt 93 kg (205 lb 0.4 oz) SpO2 98% BMI 36.33 kg/m Vision Screening: Follows with optometry/ophthalmology Assessment/Plan Medicare annual wellness visit, subsequent (Z00.00) - Counseled on healthy diet and regular exercise - Fall avoidance information provided - Personalized prevention plan provided - Discussed need for and benefit of weight loss. BMI 36.33 kg/(m^2) This is a 73 year old female who presents today with: Patient presents with: Medicare Wellness Exam HISTORY OF PRESENT ILLNESS: Laisha Walker is a 73 year old female. Patient presents with: Medicare Wellness Exam Here in the office for extensive exam. Chronic hip, groin, and back pain. Using Tylenol as needed, sparingly. Bilateral leg swelling, on going, but seems to be starting in the left ankle as well. No chest pain. Recurrent UTIs: Has had at least 4 UTI's in the past year. History of left kidney cancer in the past. Mass removed. Chronic constipation, using stool softener as needed. Afib: Following with cardiology, Dr. Christie, switched to [facility]. Taking losartan 25 mg,half tablet daily and Lopressor 50 mg twice daily. Taking Coumadin 5 mg Tuesday, Tuesday, and Tuesday. 2.5 mg all other days. Not currently checking blood pressure at home. Denies chest pain or dizziness. Pace maker placed in January 2023. DM2: Checking fasting sugars, 140's Taking Glucotrol 5 mg twice daily. Working on watching diet Denies any hypoglycemic . Tingling in bilateral feet worse in the toes, seems to be constant, sharp pain. Lipids: Taking Crestor 10 mg daily. Watching diet. Liver: Was getting CT abdomen/pelvis routinely to monitor the liver every 3 to 6 months. Was following with gastroenterology, Dr. Josie Coates, schedule follow-up. Would like to exit mammogram screening Vaccines: Denies wanting any vaccines at this time. PAST MEDICAL HISTORY: PAST MEDICAL HISTORY Diagnosis Date Atrial fibrillation (HCC) SEES DR. BARRERA Carotid stenosis, asymptomatic CVA (cerebral vascular accident) (HCC) post op after 2017 bilateral knee replacements - per pt was told by neurology that it was a questionable stroke Diabetes mellitus type 2 in obese 01/22/2023 DVT (deep venous thrombosis) (HCC) post op Dysthymic disorder Depression (non-psychotic) Esophageal reflux Essential hypertension, benign Goiter, unspecified Goiter Liver cirrhosis (HCC) Macular degeneration (senile) of retina, unspecified Macular degeneration Other and unspecified hyperlipidemia Renal carcinoma, right (HCC) S/P placement of cardiac pacemaker 01/25/2023 Patient underwent implantation of [place] permanent pacemaker with right atrial and right ventricular apex leads with Dr. Steele on 01/24/2023. Type 2 diabetes mellitus (HCC) PAST SURGICAL HISTORY Procedure Laterality Date APPENDECTOMY 1962 RUPTURED APPENDIX ARTHRP KNE CONDYLE&PLATU MEDIAL&LAT COMPARTMENTS Bilateral 2017 CHOLECYSTECTOMY 1995 Cholecystectomy COLONOSCOPY [facility] EGD EUS 06/11/2020 benign leiomyoma GE junction, mild antral gastropathy, fatty pancreas, likely cirrhotic liver, prominent dilated portal vein NEPHRECTOMY PARTIAL Right 05/18/2019 robotic PAST SURGICAL HISTORY OF 07/15/1999 LEFT SHOULDER PAST SURGICAL HISTORY OF Left 2018 REPAIR OF LEFT KNEE FRACTURE TOTAL ABDOMINAL HYSTERECT W/WO RMVL TUBE OVARY 1984 Hysterectomy, JERRY ALLERGIES Gabapentin, Accupril [Quinapril Hcl], Bextra [Valdecoxib], Celebrex [Celecoxib], Codeine,Entex La [Phenylephrine-Guaifenesin], Glucophage [Metformin Hcl], Lipitor [Atorvastatin Calcium], Lodine [Etodolac], Naprosyn [Naproxen], Nsaids (Non-Steroidal Anti-Inflammatory Drug), Pravachol [Pravastatin Sodium], Sulfa (Sulfonamide Antibiotics), Ultracet [Tramadol-Acetaminophen], Vicodin [Hydrocodone-Acetaminophen], Vioxx [Rofecoxib], and Zocor [Simvastatin] MEDICATIONS Current Outpatient Medications Medication Sig metoprolol tartrate, short acting, (LOPRESSOR) 50 mg tablet Take 50 mg by mouth two times a day. glipiZIDE (GLUCOTROL) 5 mg tablet Take 1 tablets by mouth before breakfast and one tablet by mouth before dinner rosuvastatin (CRESTOR) 10 mg tablet Take 20 mg by mouth once daily. losartan (COZAAR) 25 mg tablet Take 0.5 tablets by mouth every afternoon. warfarin (COUMADIN) 5 mg tablet 2.5 mg Tues//Tuesday, 5 mg all other days or as directed (Patient taking differently: 5 mg Fri/Tue/Tue, 2.5 mg all other days or as directed) docusate sodium (STOOL SOFTENER ORAL) Take by mouth as needed. OTC blood sugar diagnostic (BLOOD GLUCOSE TEST) test strip Test blood sugar(s) 1` times daily. Dx: Type2 DM - Uncontrolled E11.65 Insulin: No Lancets lancets Test blood sugar(s) 1` times daily. Dx: Type 2 DM - Uncontrolled E11.65 Insulin: No hydrocortisone (ANUSOL-HC) 2.5 % rectal cream by RECTAL route twice daily. multivitamin (MULTIPLE VITAMINS ORAL) Take by mouth. alcohol swabs (ALCOHOL PREP PADS) Apply 1 application to affected area once daily. loratadine (CLARITIN) 10 mg tablet Take 10 mg by mouth once daily. acetaminophen (TYLENOL) 325 mg tablet Take 500 mg by mouth. 2 TABLETS AT HS No current facility-administered medications for this visit. FAMILY HISTORY Problem Relation Age of Onset Arthritis Mother Hypertension Mother Dementia Mother Heart Father [place] Hypertension Father Heart disease Father other (DEPRESSION) Sister Stroke Sister Diabetes Brother Heart Attack Brother Heart disease Brother other (DEPRESSION) Brother Hypertension Brother Cancer No Family History none Social History Tobacco Use Smoking status: Never Smokeless tobacco: Never Vaping Use Vaping status: Never Used Substance Use Topics Alcohol use: Yes Comment: very seldom Drug use: No REVIEW OF SYSTEMS GENERAL: No weight loss, malaise or fevers/chills HEENT: Negative for frequent or significant headaches, No changes in hearing or vision. NECK: Negative for lumps, goiter, pain and significant neck swelling RESPIRATORY: Negative for cough, hemoptysis, wheezing, dyspnea or shortness of breath CARDIOVASCULAR: Negative for chest pain, orthopnea, or palpitations + Leg swelling GI: No nausea, vomiting, or diarrhea/constipation. No hematochezia/melena. No heartburn or reflux symptoms. : No history of dysuria, frequency or incontinence MUSCULOSKELETAL: + Chronic back pain SKIN: Negative for lesions, rash, and itching ENDOCRINE: Negative for cold or heat intolerance, polyuria, polydipsia and goiter NEURO: No history of headaches, syncope, paralysis, seizures or tremors MOOD: Negative for depression, anxiety, or suicidal ideation. EXAM: BP 130/64 Pulse 60 Resp 16 Ht 160 cm (5' 2.99) Wt 93 kg (205 lb 0.4 oz) SpO2 98% BMI 36.33 kg/m PHYSICAL EXAM: General Appearance: Well appearing, alert, in no acute distress, well-hydrated, well nourished. Skin: Skin color, texture, turgor normal, no suspicious rashes or lesions. Head: Normocephalic, no masses, lesions, tenderness or abnormalities. Eyes: Anicteric sclera. Extraocular movements are intact. Lungs: Lungs clear to auscultation. No wheezing, rhonchi, rales. Heart: RRR without murmur, gallop, or rubs. No ectopy. Extremities: +1 nonpitting edema noted to lower legs bilaterally, no erythema, varicose veins noted. Musculoskeletal: No joint swelling, deformity, or tenderness. Peripheral Pulses: Normal, Capillary refill <2secs, strong peripheral pulses, Pulses palpable. Neurologic: Gait normal. Reflexes normal and symmetric. Decreased sensation in feet bilaterally ASSESSMENT/PLAN: 1. Medicare annual wellness visit, subsequent - ICD9: V70.0, ICD10: Z00.00 (primary diagnosis) - Counseled on healthy diet and regular exercise - Discussed need and benefit for weight loss. BMI 36.33 kg/(m^2) - Follow up for annual exam in one year 2. Recurrent UTI (urinary tract infection) - ICD9: 599.0, ICD10: N39.0 - History of recurrent UTI, recommend consult with Urology - CONSULT TO UROLOGY 3. Bilateral leg edema - ICD9: 782.3, ICD10: R60.0 - Recommend wearing compression socks and elevating the legs when possible. 4. Other cirrhosis of liver (HCC) - ICD9: 571.5, ICD10: K74.69 - Follow up with GI 5. Chronic midline low back pain without sciatica - ICD9: 724.2, 338.29, ICD10: M54.50, G89.29 - Get xray completed - Continue with Tylenol as needed - Due to cost denies wanting consult to physical therapy. - XR LUMBAR GENERAL 3V AP/LAT/L5-S1 6. Chronic constipation - ICD9: 564.00, ICD10: K59.09 - Stable, continue with stool softener as needed. 7. Paroxysmal atrial fibrillation (HCC) - ICD9: 427.31, ICD10: I48.0 - Stable, continue take current medication. - Keep scheduled appointments with cardiology. 8. Controlled type 2 diabetes mellitus without complication, without long-term current use of insulin (HCC) - ICD9: 250.00, ICD10: E11.9 - Control undetermined, due for labs - Continue current medications - Counseled on healthy diet and regular exercise - Discussed need for and benefit of weight loss. BMI 36.33 kg/(m^2) - Get labs completed today and in 6 months prior to next visit. - HEMOGLOBIN A1C - HEMOGLOBIN A1C 9. Hyperlipidemia, unspecified hyperlipidemia type - ICD9: 272.4, ICD10: E78.5 - Control undetermined, due for labs - Continue current medications - Counseled on healthy diet and regular exercise - Discussed need for and benefit of weight loss. BMI 36.33 kg/(m^2) - Get labs completed today and again in 6 months prior to next visit. - COMPREHENSIVE METABOLIC PANEL - COMPREHENSIVE METABOLIC PANEL - LIPID PANEL BASIC - LIPID PANEL BASIC 10. Encounter for screening examination for other mental health and behavioral disorders - ICD9: V79.8, ICD10: Z13.39 - ANXIETY SCREENING 11. Screening for depression - ICD9: V79.0, ICD10: Z13.31 - DEPRESSION SCREENING Follow-up in 6 months or sooner as needed. Discussed treatment plan and patient voices understanding. Patient's questions answered appropriately. Medications and potential side effects were discussed and patient voices understanding. Georgie Stallworth APRN.CNP This note was partially generated using Seat[employer] voice recognition system. Note was reviewed for accuracy. There may be minor misspellings or grammar miscues with SeatID voice recognition. documented in this encounterSt. [facility]12-[facility]-2024 NoteHNO ID: [id number] Author: GEORGIE STALLWORTH APRN.CNP Service: ? Author Type: Nurse Practitioner Type: Progress Notes Filed: 02/16/2024 12:55 Note Text: Laisha Walker is a 73 year old female here for a Medicare wellness visit. Medicare Health Risk Assessment General Health Fair Exercise: Minutes/Day 0 min Exercise: Days/Week 0 days Alcohol: Daily Use Never Alcohol: Drinks/Day Patient does not drink Alcohol: 6 or more drinks Never Feel off balance Yes Concerns: Teeth/Dentures Yes Concerns: Sexual function No Troubled by feelings None of the above Frequency: Eating healthy diet Nearly every day ADLs requiring help Housework; Sitting or standing; Walking; Managing urine leakage Safety precautions in home/vehicle Yes Smoke, vape, chews tobacco No Difficulty hearing Yes Difficulty seeing No Current Providers Specialists: I have reviewed specialist-related care of the patient in the medical record. Cardiology: [facility], yearly. Medical/Family history review Reviewed and updated problem list, medical/surgical/family/social history, medications, and allergies. Opioid use review Opioid Medications (last 90 days) No data to display Depression Screening DEPRESSION SCREENING Ordered at: 02/16/24 1110 Based on score and interview, patient is: Not at risk for depression Screening tool discussed with patient, and I recommend: No further intervention at this time PHQ-2 Score: 0 ANXIETY SCREENING Ordered at: 02/16/24 1110 Based on score and interview, patient is: Not at risk for anxiety Screening tool discussed with patient, and I recommend: No further intervention at this time ALAN-2 Score: 0 Cognitive screening Mini Cog Score: 5 Cognitive screening reviewed and No further action needed (score 3-5). Functional Observation Was the patient's Timed Up AND Go test unsteady or >= 12 seconds? No Advance Care Planning Surrogate decision maker and/or advance care plan documented Measurements BP 130/64 Pulse 60 Resp 16 Ht 160 cm (5' 2.99) Wt 93 kg (205 lb 0.4 oz) SpO2 98% BMI 36.33 kg/m? Vision Screening: Follows with optometry/ophthalmology Assessment/Plan Medicare annual wellness visit, subsequent (Z00.00) - Counseled on healthy diet and regular exercise - Fall avoidance information provided - Personalized prevention plan provided - Discussed need for and benefit of weight loss. BMI 36.33 kg/(m2) This is a 73 year old female who presents today with: Patient presents with: Medicare Wellness Exam HISTORY OF PRESENT ILLNESS: Laisha Walker is a 73 year old female. Patient presents with: Medicare Wellness Exam Here in the office for extensive exam. Chronic hip, groin, and back pain. Using Tylenol as needed, sparingly. Bilateral leg swelling, on going, but seems to be starting in the left ankle as well. No chest pain. Recurrent UTIs: Has had at least 4 UTI's in the past year. History of left kidney cancer in the past. Mass removed. Chronic constipation, using stool softener as needed. Afib: Following with cardiology, Dr. Christie, switched to [facility]. Taking losartan 25 mg, half tablet daily and Lopressor 50 mg twice daily. Taking Coumadin 5 mg Tuesday, Tuesday, and Tuesday. 2.5 mg all other days. Not currently checking blood pressure at home. Denies chest pain or dizziness. Pace maker placed in January 2023. DM2: Checking fasting sugars, 140's Taking Glucotrol 5 mg twice daily. Working on watching diet Denies any hypoglycemic . Tingling in bilateral feet worse in the toes, seems to be constant, sharp pain. Lipids: Taking Crestor 10 mg daily. Watching diet. Liver: Was getting CT abdomen/pelvis routinely to monitor the liver every 3 to 6 months. Was following with gastroenterology, Dr. Josie Coates, schedule follow-up. Would like to exit mammogram screening Vaccines: Denies wanting any vaccines at this time. PAST MEDICAL HISTORY: PAST MEDICAL HISTORY Diagnosis Date Atrial fibrillation (HCC) SEES DR. BARRERA Carotid stenosis, asymptomatic CVA (cerebral vascular accident) (HCC) post op after 2017 bilateral knee replacements - per pt was told by neurology that it was a questionable stroke Diabetes mellitus type 2 in obese 01/22/2023 DVT (deep venous thrombosis) (HCC) post op Dysthymic disorder Depression (non-psychotic) Esophageal reflux Essential hypertension, benign Goiter, unspecified Goiter Liver cirrhosis (HCC) Macular degeneration (senile) of retina, unspecified Macular degeneration Other and unspecified hyperlipidemia Renal carcinoma, right (HCC) S/P placement of cardiac pacemaker 01/25/2023 Patient underwent implantation of [employer] [place] permanent pacemaker with right atrial and right ventricular apex leads with Dr. Steele on 01/24/2023. Type 2 diabetes mellitus (HCC) PAST SURGICAL HISTORY Procedure Laterality Date APPENDECTOMY 1963 RUPTURED APPENDIX (more content not included)...[facility] 02-09-2024 NoteHNO ID: [id number] Author: LESLY BURNETT MA Service: ? Author Type: Divisional Merchandising Manager Type: Progress Notes Filed: 02/09/2024 12:55 Note Text: POPULATION HEALTH NAVIGATION OUTREACH Action/FYI Spoke to patient about scheduling 2023 and 2024 Annual Wellness Exam as well as flu vaccine and closing HCC gaps. Patient agreeable to scheduling both 2023 and 2024 annual wellness visits and both were scheduled. Patient is unsure if she has gotten her flu shot and cannot find papers that she has. I looked and informed her that my documentation does not show that she had it here this year. She will have at her appointment Topic Due (Y or N) Comments Medicare Wellness Y 2023 and 2024 PCP Follow up N Mammogram N Colorectal Cancer Screening N A1C N Controlling BP N Dilated Retinal Exam (YOGI) N KED (UACR and eGFR) N HCC Y Flu Vaccine Y Reason for Outreach Care Gap/HCC or Scheduling Wellness Visits Care Gaps due: Medicare Annual Wellness Visit Flu Vaccine Patient Contacted: Spoke to patient/parent/or legal guardian Patient identified by name and : Yes Care Gap/HCC/Scheduling Wellness actions taken: Patient scheduled/pended orders: Medicare Annual Wellness Visit Flu Vaccine 02/16/2024 in [facility] with GEORGIE STALLWORTH - Annual MEd[employer]are Wellness, flu vaccine, address and close HCC gaps 04/23/2024 in [facility] with OTONIEL KING - follow up 02/19/2025 in [facility] with FLAKO TRACY - Annual Wellness Exam, Address and close HCC gaps HCC related Navigation Signature: Lesly Burnett MA February 09, 2024 12:52 [facility]12-05-2024 History of Present illness Narrative* Lesly Burnett MA - 02/09/2024 12:52 PM EST POPULATION HEALTH NAVIGATION OUTREACH Action/FYI Spoke to patient about scheduling 2023 and 2024 Annual Wellness Exam as well as flu vaccine and closing HCC gaps. Patient agreeable to scheduling both 2023 and 2024 annual wellness visits and both were scheduled. Patient is unsure if she has gotten her flu shot and cannot find papers that she has. I looked and informed her that my documentation does not show that she had it here this year. She will have at her appointment Topic Due (Y or N) Comments Medicare Wellness Y 2023 and 2024 PCP Follow up N Mammogram N Colorectal Cancer Screening N A1C N Controlling BP N Dilated Retinal Exam (YOGI) N KED (UACR and eGFR) N HCC Y Flu Vaccine Y Reason for Outreach Care Gap/HCC or Scheduling Wellness Visits Care Gaps due: Medicare Annual Wellness Visit Flu Vaccine Patient Contacted: Spoke to patient/parent/or legal guardian Patient identified by name and : Yes Care Gap/HCC/Scheduling Wellness actions taken: Patient scheduled/pended orders: Medicare Annual Wellness Visit Flu Vaccine 02/16/2024 in [facility] with GEORGIE STALLWORTH - Annual [employer]Ed[employer]are Wellness, flu vaccine, address and close HCC gaps 04/23/2024 in [facility] with OTONIEL KING - follow up 02/19/2025 in [facility] with FLAKO TRACY - Annual Wellness Exam, Address and close HCC gaps HCC related Navigation Signature: Lesly Burnett MA February 09, 2024 12:52 PM documented in this encounterSt. [facility] NotePatient Outreach (NETNAV) LAISHA WALKER ([id number]) 1950 F Date Time Provider Department 02/09/24 LESLY BURNETT During your visit today, we recorded the following information about you: Lesly Burnett MA 02/09/2024 12:55 PM Signed POPULATION HEALTH NAVIGATION OUTREACH Action/FYI Spoke to patient about scheduling 2023 and 2024 Annual Wellness Exam as well as flu vaccine and closing HCC gaps. Patient agreeable to scheduling both 2023 and 2024 annual wellness visits and both were scheduled. Patient is unsure if she has gotten her flu shot and cannot find papers that she has. I looked and informed her that my documentation does not show that she had it here this year. She will have at her appointment Topic Due (Y or N) Comments Medicare Wellness Y 2023 and 2024 PCP Follow up N Mammogram N Colorectal Cancer Screening N A1C N Controlling BP N Dilated Retinal Exam (YOGI) N KED (UACR and eGFR) N HCC Y Flu Vaccine Y Reason for Outreach Care Gap/HCC or Scheduling Wellness Visits Care Gaps due: Medicare Annual Wellness Visit Flu Vaccine Patient Contacted: Spoke to patient/parent/or legal guardian Patient identified by name and : Yes Care Gap/HCC/Scheduling Wellness actions taken: Patient scheduled/pended orders: Medicare Annual Wellness Visit Flu Vaccine 02/16/2024 in [facility] with GEORGIE STALLWORTH - Annual MEdicare Wellness, flu vaccine, address and close HCC gaps 04/23/2024 in [facility] with OTONIEL KING - follow up 02/19/2025 in [facility] with FLAKO TRACY - Annual Wellness Exam, Address and close HCC gaps HCC related Navigation Signature: Lesly Burnett MA February 09, 2024 12:52 PM Allergies As of Date: 02/09/2024 Noted Allergy Reaction GABAPENTIN 11/03/2021 14 - Other: See Comments Comments: Dizziness ACCUPRIL (QUINAPRIL HCL) 07/05/2005 14 - Other: See Comments BEXTRA (VALDECOXIB) 07/05/2005 8 - GI Upset CELEBREX (CELECOXIB) 07/05/2005 8 - GI Upset Comments: CODEINE 07/05/2005 14 - Other: See Comments ENTEX LA (PHENYLEPHRINE-GUAIFENES*07/05/2005 14 - Other: See Comments GLUCOPHAGE (METFORMIN HCL) 07/05/2005 14 - Other: See Comments LIPITOR (ATORVASTATIN CALCIUM) 07/05/2005 14 - Other: See Comments LODINE (ETODOLAC) 07/05/2005 8 - GI Upset NAPROSYN (NAPROXEN) 07/05/2005 14 - Other: See Comments NSAIDS (NON-STEROIDAL ANTI-INFLAM*12/06/2019 14 - Other: See Comments PRAVACHOL (PRAVASTATIN SODIUM) 07/05/2005 14 - Other: See Comments Comments: Worsening abdominal pain SULFA (SULFONAMIDE ANTIBIOTICS) 07/08/2014 8 - GI Upset ULTRACET (TRAMADOL-ACETAMINOPHEN) 07/05/2005 14 - Other: See Comments VICODIN (HYDROCODONE-ACETAMINOPHE*07/05/2005 14 - Other: See Comments VIOXX (ROFECOXIB) 07/05/2005 14 - Other: See Comments ZOCOR (SIMVASTATIN) 07/05/2005 14 - Other: See Comments Date Reviewed: 11/24/2023 Reviewed by: Areli Escobar APRN.MORTICIAN INVESTIGATOR - Fully Assessed Reason for Visit: Population Health Navigation Outreach [3910] Cmt: [employer] Prescriptions as of 02/09/2024 - metoprolol tartrate, short acting, (LOPRESSOR) 50 mg tablet Take 50 mg by mouth two times a day. - glipiZIDE (GLUCOTROL) 5 mg tablet Take 1 tablets by mouth before breakfast and one tablet by mouth before dinner - rosuvastatin (CRESTOR) 10 mg tablet Take 20 mg by mouth once daily. - losartan (COZAAR) 25 mg tablet Take 0.5 tablets by mouth every afternoon. - warfarin (COUMADIN) 5 mg tablet 2.5 mg //Tuesday, 5 mg all other days or as directed - docusate sodium (STOOL SOFTENER ORAL) Take by mouth as needed. OTC - blood sugar diagnostic (BLOOD GLUCOSE TEST) test strip Test blood sugar(s) 1` times daily. Dx: Type 2 DM - Uncontrolled E11.65 Insulin: No - Lancets lancets Test blood sugar(s) 1` times daily. Dx: Type 2 DM - Uncontrolled E11.65 Insulin: No - hydrocortisone (ANUSOL-HC) 2.5 % rectal cream by RECTAL route twice daily. - multivitamin (MULTIPLE VITAMINS ORAL) Take by mouth. - alcohol swabs (ALCOHOL PREP PADS) Apply 1 application to affected area once daily. - loratadine (CLARITIN) 10 mg tablet Take 10 mg by mouth once daily. - acetaminophen (TYLENOL) 325 mg tablet Take 500 mg by mouth. 2 TABLETS AT HS Problem List As Of Date 02/09/2024 Noted Resolved LUMBAGO [M54.50] 07/06/2005 ENTHESOPATHY OF HIP [M76.899] 07/06/2005 SPRAIN LUMBAR REGION [S33.5XXA] 07/06/2005 Dyslipidemia associated with type 2 diabetes me* Paroxysmal atrial fibrillation (HCC) [I48.0] 01/15/2023 Carotid stenosis, asymptomatic [I65.29] Right renal mass [N28.89] 05/18/2019 Obesity, Class II, BMI 35-39.9 [E66.812] 05/19/2019 Renal carcinoma, right (HCC) [C64.1] 05/20/2019 01/21/2023 Other cirrhosis of liver (HCC) [K74.69] 05/23/2020 Stage 3a chronic kidney disease (HCC) [N18.31] 08/10/2022 Obesity, Class I, BMI 30-34.9 [E66.811] 11/19/2022 (more content not included)...[facility]10-30-2024 NoteHNO ID: [id number] Author: LESLY BURNETT MA Service: ? Author Type: Divisional Merchandising Manager Type: Progress Notes Filed: 01/04/2024 17:06 Note Text: POPULATION HEALTH NAVIGATION OUTREACH Action/FYI Contacted patient to schedule [employer] Annual Wellness Visit and care gaps 1st attempt: Left message with my direct number 2nd attempt: My Chart message sent Reason for Outreach Care Gap/HCC or Scheduling Wellness Visits Care Gaps due: Annual Wellness Exam Flu Vaccine Advanced Directives Patient Contacted: Unable or unnecessary to reach patient: Left message [employer] message sent HCC related Navigation Signature: Lesly Burnett MA January 04, 2024 5:06 [facility] History of Present illness Narrative* Lesly Burnett MA - 01/04/2024 5:04 PM EDT POPULATION HEALTH NAVIGATION OUTREACH Action/FYI Contacted patient to schedule [employer] Annual Wellness Visit and care gaps 1st attempt: Left message with my direct number 2nd attempt: My Chart message sent Reason for Outreach Care Gap/HCC or Scheduling Wellness Visits Care Gaps due: Annual Wellness Exam Flu Vaccine Advanced Directives Patient Contacted: Unable or unnecessary to reach patient: Left message [employer] message sent HCC related Navigation Signature: Lesly Burnett MA January 04, 2024 5:06 PM documented in this encounterSt. [facility]10-30-[facility] NotePatient Outreach (NETNAV) LAISHA WALKER ([id number]) 1950 F Date Time Provider Department 01/04/24 LESLY BURNETT During your visit today, we recorded the following information about you: Lesly Burnett MA 01/04/2024 5:06 PM Signed POPULATION HEALTH NAVIGATION OUTREACH Action/FYI Contacted patient to schedule [employer] Annual Wellness Visit and care gaps 1st attempt: Left message with my direct number 2nd attempt: My Chart message sent Reason for Outreach Care Gap/HCC or Scheduling Wellness Visits Care Gaps due: Annual Wellness Exam Flu Vaccine Advanced Directives Patient Contacted: Unable or unnecessary to reach patient: Left message MyChart message sent HCC related Navigation Signature: Lesly Burnett MA January 04, 2024 5:06 PM Allergies As of Date: 01/04/2024 Noted Allergy Reaction GABAPENTIN 11/03/2021 14 - Other: See Comments Comments: Dizziness ACCUPRIL (QUINAPRIL HCL) 07/05/2005 14 - Other: See Comments BEXTRA (VALDECOXIB) 07/05/2005 8 - GI Upset CELEBREX (CELECOXIB) 07/05/2005 8 - GI Upset Comments: CODEINE 07/05/2005 14 - Other: See Comments ENTEX LA (PHENYLEPHRINE-GUAIFENES*07/05/2005 14 - Other: See Comments GLUCOPHAGE (METFORMIN HCL) 07/05/2005 14 - Other: See Comments LIPITOR (ATORVASTATIN CALCIUM) 07/05/2005 14 - Other: See Comments LODINE (ETODOLAC) 07/05/2005 8 - GI Upset NAPROSYN (NAPROXEN) 07/05/2005 14 - Other: See Comments NSAIDS (NON-STEROIDAL ANTI-INFLAM*12/06/2019 14 - Other: See Comments PRAVACHOL (PRAVASTATIN SODIUM) 07/05/2005 14 - Other: See Comments Comments: Worsening abdominal pain SULFA (SULFONAMIDE ANTIBIOTICS) 07/08/2014 8 - GI Upset ULTRACET (TRAMADOL-ACETAMINOPHEN) 07/05/2005 14 - Other: See Comments VICODIN (HYDROCODONE-ACETAMINOPHE*07/05/2005 14 - Other: See Comments VIOXX (ROFECOXIB) 07/05/2005 14 - Other: See Comments ZOCOR (SIMVASTATIN) 07/05/2005 14 - Other: See Comments Date Reviewed: 11/24/2023 Reviewed by: Areli Escobar APRN.MORTICIAN INVESTIGATOR - Fully Assessed Reason for Visit: Population Health Navigation Outreach [3910] Cmt: [employer] Prescriptions as of 01/04/2024 - metoprolol tartrate, short acting, (LOPRESSOR) 50 mg tablet Take 50 mg by mouth two times a day. - glipiZIDE (GLUCOTROL) 5 mg tablet Take 1 tablets by mouth before breakfast and one tablet by mouth before dinner - rosuvastatin (CRESTOR) 10 mg tablet Take 20 mg by mouth once daily. - losartan (COZAAR) 25 mg tablet Take 0.5 tablets by mouth every afternoon. - warfarin (COUMADIN) 5 mg tablet 2.5 mg //Tuesday, 5 mg all other days or as directed - docusate sodium (STOOL SOFTENER ORAL) Take by mouth as needed. OTC - blood sugar diagnostic (BLOOD GLUCOSE TEST) test strip Test blood sugar(s) 1` times daily. Dx: Type 2 DM - Uncontrolled E11.65 Insulin: No - Lancets lancets Test blood sugar(s) 1` times daily. Dx: Type 2 DM - Uncontrolled E11.65 Insulin: No - hydrocortisone (ANUSOL-HC) 2.5 % rectal cream by RECTAL route twice daily. - multivitamin (MULTIPLE VITAMINS ORAL) Take by mouth. - alcohol swabs (ALCOHOL PREP PADS) Apply 1 application to affected area once daily. - loratadine (CLARITIN) 10 mg tablet Take 10 mg by mouth once daily. - acetaminophen (TYLENOL) 325 mg tablet Take 500 mg by mouth. 2 TABLETS AT HS Problem List As Of Date 01/04/2024 Noted Resolved LUMBAGO [M54.50] 07/06/2005 ENTHESOPATHY OF HIP [M76.899] 07/06/2005 SPRAIN LUMBAR REGION [S33.5XXA] 07/06/2005 Dyslipidemia associated with type 2 diabetes me* Paroxysmal atrial fibrillation (HCC) [I48.0] 01/15/2023 Carotid stenosis, asymptomatic [I65.29] Right renal mass [N28.89] 05/18/2019 Obesity, Class II, BMI 35-39.9 [E66.812] 05/19/2019 Renal carcinoma, right (HCC) [C64.1] 05/20/2019 01/21/2023 Other cirrhosis of liver (HCC) [K74.69] 05/23/2020 Stage 3a chronic kidney disease (HCC) [N18.31] 08/10/2022 Obesity, Class I, BMI 30-34.9 [E66.811] 11/19/2022 01/22/2023 Anticoagulant long-term use [Z79.01] 11/24/2022 Third degree atrioventricular block (HCC) [I44.*01/22/2023 Bradycardia [R00.1] 01/22/2023 At risk for stroke [Z91.89] 01/22/2023 Bilateral carotid artery stenosis [I65.23] 10/10/2016 Diagnosed: 01/22/2023 Gastroesophageal reflux disease [K21.9] 01/22/2023 Diagnosed: 01/22/2023 Hyperlipidemia [E78.5] 01/22/2023 Diagnosed: 01/22/2023 Recurrent falls [R29.6] 01/22/2023 Diagnosed: 01/22/2023 Orthostatic hypotension [I95.1] 01/17/2023 Diagnosed: 01/22/2023 Holley-Mary syncope [I45.9] 01/22/2023 Diabetes mellitus type 2 in obese (HCC) [E11.6*01/22/2023 S/P placement of cardiac pacemaker [Z95.0] 01/25/2023 Encounter Status:Closed by LESLY BURNETT on 01/04/24[facility] Telephone encounter Note* Telephone Encounter - Malathi Nicolas MA - 11/29/2023 8:27 AM EDT Pt advised to continue current dosage of 5 mg Fri/Sat/Sun and 2.5 mg all other days. She verbalized agreement with plan. Malathi Nicolas MA November 29, 2023 8:[address] [facility] Miscellaneous Notes* Telephone Encounter - Malathi Nicolas MA - 11/29/2023 8:27 AM EDT Pt advised to continue current dosage of 5 mg Fri/Sat/Sun and 2.5 mg all other days. She verbalized agreement with plan. Malathi Nicolas MA November 29, 2023 8:29 AM * Telephone Encounter - Areli Escobar APRN.CNP - 11/29/2023 8:11 AM EDT Please let patient know that her INR is 2.1. The antibiotic had no effect on her INR. No changes are needed. Thanks for checking. Suly documented in this encounterSt. [facility]09-24-2024 Telephone encounter Note * Telephone Encounter - Areli Escobar APRN.CNP - 11/29/2023 8:11 AM EDT Please let patient know that her INR is 2.1. The antibiotic had no effect on her INR. No changes are needed. Thanks for checking. Okay [facility] Telephone encounter Note* Telephone Encounter - Malathi Nicolas MA - 11/28/2023 12:49 PM EDT Patient was made aware of the results. Patient verbalizes understanding. Malathi Nicolas Ma [facility]09-23-2024 Miscellaneous Notes* Telephone Encounter - Malathi Nicolas MA - 11/28/2023 12:49 PM EDT Patient was made aware of the results. Patient verbalizes understanding. Malathi Nicolas Ma * Telephone Encounter - Trip Angeles MA - 11/28/2023 10:24 AM EDT ----- Message from Areli Escobar sent at 11/28/2023 7:40 AM EDT ----- Your urinary tract grew E. coli. The ciprofloxacin that I prescribed will be effective. We should recheck your urine culture once antibiotic is finished To make certain that it has resolved. documented in this encounterSt. [facility]09-23-2024 Telephone encounter Note * Telephone Encounter - Trip Angeles MA - 11/28/2023 10:24 AM EDT ----- Message from Areli Escobar sent at 11/28/2023 7:40 AM EDT ----- Your urinary tract grew E. coli. The ciprofloxacin that I prescribed will be effective. We should recheck your urine culture once antibiotic is finished To make certain that it has resolved. [facility] Telephone encounter Note* Telephone Encounter - Trip Angeles MA - 11/28/2023 10:24 AM EDT Pt evaluated at OV. Trip Angeles MA [facility] Miscellaneous Notes* Telephone Encounter - Trip Angeles MA - 11/28/2023 10:24 AM EDT Pt evaluated at OV. Trip Angeles MA * Telephone Encounter - Katia Cabrera LPN - 11/24/2023 11:18 AM EDT patient calling c/o possible UTI. Patient c/o cloudy urin, urinary frequency, burning on urination and nausea x 1 week. Patient has been forcing fluids but it is not working. Patient had UTI back in October and was treated then. Appointment made for today at 3:40pm Katia Cabrera LPN documented in this encounterSt. Rita'[facility]09-19-2024 History of Present illness Narrative* Areli Escobar APRN.MORTICIAN INVESTIGATOR - 11/24/2023 3:41 PM EDT This is a 73 year old female who presents today with: Patient presents with: Cough: Productive cough that started on Sat night, into Sun UTI: 1 week HISTORY OF PRESENT ILLNESS: Laisha Walker is a 73 year old female. Patient presents with: Cough: Productive cough that started on Sat night, into Sun UTI: 1 week Having cloudy urine that uribe. Urgency. Some incontinence. Started last Tuesday. Cough and headache back of head. [place] the [place]. More moist. Yellowishphlegm. No fever but chills. Painful in chest. Burning. Body aches. Tired. Had runny nose. No diarrhea. BSS running 140 PAST MEDICAL HISTORY: PAST MEDICAL HISTORY Diagnosis Date Atrial fibrillation (HCC) SEES DR. BARRERA Carotid stenosis, asymptomatic CVA (cerebral vascular accident) ([facility]) post op after 2017 bilateral knee replacements - per pt was told by neurology that it was a questionable stroke Diabetes mellitus type 2 in obese 01/22/2023 DVT (deep venous thrombosis) ([facility]) post op Dysthymic disorder Depression (non-psychotic) Esophageal reflux Essential hypertension, benign Goiter, unspecified Goiter Liver cirrhosis (HCC) Macular degeneration (senile) of retina, unspecified Macular degeneration Other and unspecified hyperlipidemia Renal carcinoma, right (HCC) S/P placement of cardiac pacemaker 01/25/2023 Patient underwent implantation of [employer] permanent pacemaker with right atrial and right ventricular apex leads with Dr. Steele on 01/24/2023. Type 2 diabetes mellitus (HCC) PAST SURGICAL HISTORY Procedure Laterality Date APPENDECTOMY 1963 RUPTURED APPENDIX ARTHRP KNE CONDYLE&PLATU MEDIAL&LAT COMPARTMENTS Bilateral 2017 CHOLECYSTECTOMY 1996 Cholecystectomy COLONOSCOPY [facility] EGD EUS 06/11/2020 benign leiomyoma GE junction, mild antral gastropathy, fatty pancreas, likely cirrhotic liver, prominent dilated portal vein NEPHRECTOMY PARTIAL Right 05/18/2019 robotic PAST SURGICAL HISTORY OF 07/15/1999 LEFT SHOULDER PAST SURGICAL HISTORY OF Left 2018 REPAIR OF LEFT KNEE FRACTURE TOTAL ABDOMINAL HYSTERECT W/WO RMVL TUBE OVARY 1985 Hysterectomy, JERRY ALLERGIES Gabapentin, Accupril [Quinapril Hcl], Bextra [Valdecoxib], Celebrex [Celecoxib], Codeine,Entex La [Phenylephrine-Guaifenesin], Glucophage [Metformin Hcl], Lipitor [Atorvastatin Calcium], Lodine [Etodolac], Naprosyn [Naproxen], Nsaids (Non-Steroidal Anti-Inflammatory Drug), Pravachol [Pravastatin Sodium], Sulfa (Sulfonamide Antibiotics), Ultracet [Tramadol-Acetaminophen], Vicodin [Hydrocodone-Acetaminophen], Vioxx [Rofecoxib], and Zocor [Simvastatin] MEDICATIONS Current Outpatient Medications Medication Sig nitrofurantoin monohydrate and macrocrystal (MACROBID) 100 mg capsule Take 1 capsule by mouth two times a day with meals for 5 days. metoprolol tartrate, short acting, (LOPRESSOR) 50 mg tablet Take 50 mg by mouth two times a day. glipiZIDE (GLUCOTROL) 5 mg tablet Take 1 tablets by mouth before breakfast and one tablet by mouth before dinner rosuvastatin (CRESTOR) 10 mg tablet Take 20 mg by mouth once daily. losartan (COZAAR) 25 mg tablet Take 0.5 tablets by mouth every afternoon. warfarin (COUMADIN) 5 mg tablet 2.5 mg //Tuesday, 5 mg all other days or as directed (Patient taking differently: 5 mg Fri/Tue/Tue, 2.5 mg all other days or as directed) docusate sodium (STOOL SOFTENER ORAL) Take by mouth as needed. OTC blood sugar diagnostic (BLOOD GLUCOSE TEST) test strip Test blood sugar(s) 1` times daily. Dx: Type2 DM - Uncontrolled E11.65 Insulin: No Lancets lancets Test blood sugar(s) 1` times daily. Dx: Type 2 DM - Uncontrolled E11.65 Insulin: No hydrocortisone (ANUSOL-HC) 2.5 % rectal cream by RECTAL route twice daily. multivitamin (MULTIPLE VITAMINS ORAL) Take by mouth. alcohol swabs (ALCOHOL PREP PADS) Apply 1 application to affected area once daily. loratadine (CLARITIN) 10 mg tablet Take 10 mg by mouth once daily. acetaminophen (TYLENOL) 325 mg tablet Take 500 mg by mouth. 2 TABLETS AT HS No current facility-administered medications for this visit. FAMILY HISTORY Problem Relation Age of Onset Arthritis Mother Hypertension Mother Dementia Mother Heart Father [place] Hypertension Father Heart disease Father other (DEPRESSION) Sister Stroke Sister Diabetes Brother Heart Attack Brother Heart disease Brother other (DEPRESSION) Brother Hypertension Brother Cancer No Family History none Social History Tobacco Use Smoking status: Never Smokeless tobacco: Never Vaping Use Vaping status: Never Used Substance Use Topics Alcohol use: Yes Comment: very seldom Drug use: No EXAM: BP 124/68 Pulse 67 Resp 16 Wt 90.3 kg (199 lb) SpO2 97% BMI 34.16 kg/m PHYSICAL EXAM: Physical Exam Vitals reviewed. Constitutional: Appearance: Normal appearance. HENT: Head: Normocephalic. Right Ear: There is no impacted cerumen. Left Ear: There is no impacted cerumen. Ears: Comments: Ears with no bulging, opaque Mouth/Throat: Mouth: Mucous membranes are moist. Pharynx: Oropharynx is clear. No oropharyngeal exudate or posterior oropharyngeal erythema. Cardiovascular: Rate and Rhythm: Normal rate and regular rhythm. Pulses: Normal pulses. Heart sounds: Normal heart sounds. Pulmonary: Effort: Pulmonary effort is normal. No respiratory distress. Breath sounds: Normal breath sounds. No wheezing, rhonchi or rales. Comments: Bronchial egophony Abdominal: General: Bowel sounds are normal. Palpations: Abdomen is soft. Musculoskeletal: General: Normal range of motion. Skin: General: Skin is warm and dry. Neurological: Mental Status: She is alert. LABS: UA & culture ASSESSMENT/PLAN: 1. Dysuria - ICD9: 788.1, ICD10: R30.0 (primary diagnosis) acute - Patient education for prevention given - URINE CULTURE Positive for nitrates and leukocytes - UA DIP, URINE (POC) - CIPROFLOXACIN 500 MG TABLET 2. Acute cough - ICD9: 786.2, ICD10: R05.1 + egophony - CIPROFLOXACIN 500 MG TABLET for 10 days Discussed treatment plan and patient voices understanding. Patient's questions answered appropriately. Medications and potential side effects were discussed and patient voices understanding. Return to the office as scheduled or as needed for worsening/no improvement. Areli Escobar APRN.CNP documented in this encounterSt. [facility] Instructions* Patient Instructions* Areli Escobar APRN.CNP - 11/24/2023 3:21 PM EDT 1) Urine culture completed- await result (likely Tuesday) 2) Start Cipro 2 x day for 5 days (may need to change once result back) 3) Check INR Tuesday 4) Keep appt. With Otoniel in April documented in this encounterSt. [facility] Telephone encounter Note * Telephone Encounter - Katia Cabrera LPN - 11/24/2023 11:18 AM EDT patient calling c/o possible UTI. Patient c/o cloudy urin, urinary frequency, burning on urination and nausea x 1 week. Patient has been forcing fluids but it is not working. Patient had UTI back in October and was treated then. Appointment made for today at 3:40pm Katia Cabrera LPN [facility]08-22[facility]24 Telephone encounter Note* Telephone Encounter - Clair Heredia RN - 10/27/2023 1:51 PM EDT Spoke with patient. Given message from provider's office. Patient verbalizes understanding. Clair Heredia RN [facility]08[facility]24 Miscellaneous Notes* Telephone Encounter - Clair Heredia RN - 10/27/2023 1:51 PM EDT Spoke with patient. Given message from provider's office. Patient verbalizes understanding. Clair Heredia RN * Telephone Encounter - Sharon Cruz LPN - 10/27/2023 10:53 AM EDT Left message to call and speak with nurse. * Telephone Encounter - Areli Escobar APRN.CNP - 10/27/2023 8:12 AM EDT Please let patient know that flatplate of the abdomen was normal. No bowel obstruction. documented in this encounterSt. [facility]08-[facility]-2024 Telephone encounter Note * Telephone Encounter - Sharon Cruz LPN - 10/27/2023 10:53 AM EDT Left message to call and speak with nurse. [facility] Telephone encounter Note* Telephone Encounter - Areli Escobar APRN.CNP - 10/27/2023 8:12 AM EDT Please let patient know that flatplate of the abdomen was normal. No bowel obstruction. [facility] History of Present illness Narrative* Teddy Flynn, RT(R) - 10/21/2023 2:10 PM EDT Radiology Service Progress Note PATIENT NAME: Laisha Walker DATE OF SERVICE: October 21, 2023 TIME: 2:27 PM PATIENT IDENTITY VERIFICATION COMPLETED USING TWO (2) IDENTIFIERS: Name and Date of confirmedby patient verbally. FALL SCREENING: Has the patient had 2 falls in the last year or 1 fall with injury or currently using an Ambulatory Assistive Device (Walker, Cane, Wheelchair, Crutches, etc.)? No PATIENT GENDER DATA: Female. status: : No status: NO. PATIENT RELEVANT IMPLANT DATA REVIEWED: Yes PATIENT PRESENTS WITH AN IMPLANTABLE OR ATTACHED ORE CHARGER: No RADIOLOGY DEPARTMENT: General X-ray: Exam(s) Completed: Abdomen X-Ray: Abdomen PERIPHERAL IV DATA: Not applicable SIGNED BY: RT Heather(R) October 21, 2023 2:27 PM documented in this encounterSt. Rita'[facility]08-16-2024 Instructions* Patient Instructions* Areli Escobar APRN.CNP - 10/21/2023 1:52 PM EDT 1) Check labs 2) Xray abdomen 3) Ondansetron as needed for nausea 4) Follow 6 months documented in this encounterSt. [facility]08-16-2024 History of Present illness Narrative* Areli Escobar APRN.CNP - 10/21/2023 1:20 PM EDT This is a 73 year old female who presents today with: Patient presents with: Follow Up HISTORY OF PRESENT ILLNESS: Laisha Walker is a 73 year old female. Patient presents with: Follow Up Fell while carrying a bundle of weeds. Bruise on right anterior lower ribs. Fading. Sore but does not hurt to take deep breath or move. Urinary Problem: incontinence, dysuria, LLQ pain, nausea for 2 weeks Constipation Mouth/Lip Problem: Lower left mouth pain Urinary Problem: incontinence is much better- emptying better, no dysuria LLQ pain improved but still hurts if she walks a lot Nausea for 2 weeks- Miralax makes that worse, nausea pill makes her sleepy Constipation much better- more regular Mouth/Lip Problem: Lower left mouth pain IBS with hemorrhoids. If she doesn't take the stool softener with mild laxative didn't help, on [employer] brand of Miralax- not as good as name brand. Has a drink of water whenever she walks through the kitchen. Recently had she had hemorrhoids lanced. Better Cancer removed from right kidney a few years back. Since then, UTI frequency has increased. Painfulurination since last night. Incontinence recently. Soreness just under left mandible. No teeth- had them all pulled. Told she had spurs that will work its way out. Noticed pain this morning. PAST MEDICAL HISTORY: PAST MEDICAL HISTORY No date: Atrial fibrillation ([facility]) Comment: SEES DR. BARRERA No date: Carotid stenosis, asymptomatic No date: CVA (cerebral vascular accident) ([facility]) Comment: post op after 2017 bilateral knee replacements - per pt was told by neurology that it was a questionable stroke 01/22/2023: Diabetes mellitus type 2 in obese No date: DVT (deep venous thrombosis) ([facility]) Comment: post op No date: Dysthymic disorder Comment: Depression (non-psychotic) No date: Esophageal reflux No date: Essential hypertension, benign No date: Goiter, unspecified Comment: Goiter No date: Liver cirrhosis (HCC) No date: Macular degeneration (senile) of retina, unspecified Comment: Macular degeneration No date: Other and unspecified hyperlipidemia No date: Renal carcinoma, right (HCC) 01/25/2023: S/P placement of cardiac pacemaker Comment: Patient underwent implantation of [employer] permanent pacemaker with right atrial and right ventricular apex leads with Dr. Steele on 01/24/2023. No date: Type 2 diabetes mellitus (HCC) PAST SURGICAL HISTORY 1962: APPENDECTOMY Comment: RUPTURED APPENDIX 2017: ARTHRP KNE CONDYLE&PLATU MEDIAL&LAT COMPARTMENTS; Bilateral 1996: CHOLECYSTECTOMY Comment: Cholecystectomy No date: COLONOSCOPY Comment: [facility] 06/11/2020: EGD EUS Comment: benign leiomyoma GE junction, mild antral gastropathy, fatty pancreas, likely cirrhotic liver, prominent dilated portal vein 05/18/2019: NEPHRECTOMY PARTIAL; Right Comment: robotic 07/15/1999: PAST SURGICAL HISTORY OF Comment: LEFT SHOULDER 2018: PAST SURGICAL HISTORY OF; Left Comment: REPAIR OF LEFT KNEE FRACTURE 1985: TOTAL ABDOMINAL HYSTERECT W/WO RMVL TUBE OVARY Comment: Hysterectomy, JERRY ALLERGIES Gabapentin, Accupril [Quinapril Hcl], Bextra [Valdecoxib], Celebrex [Celecoxib], Codeine,Entex La [Phenylephrine-Guaifenesin], Glucophage [Metformin Hcl], Lipitor [Atorvastatin Calcium], Lodine [Etodolac], Naprosyn [Naproxen], Nsaids (Non-Steroidal Anti-Inflammatory Drug), Pravachol [Pravastatin Sodium], Sulfa (Sulfonamide Antibiotics), Ultracet [Tramadol-Acetaminophen], Vicodin [Hydrocodone-Acetaminophen], Vioxx [Rofecoxib], and Zocor [Simvastatin] MEDICATIONS Current Outpatient Medications Medication Sig metoprolol tartrate, short acting, (LOPRESSOR) 50 mg tablet Take 50 mg by mouth two times a day. glipiZIDE (GLUCOTROL) 5 mg tablet Take 1 tablets by mouth before breakfast and one tablet by mouth before dinner rosuvastatin (CRESTOR) 10 mg tablet Take 20 mg by mouth once daily. losartan (COZAAR) 25 mg tablet Take 0.5 tablets by mouth every afternoon. promethazine (PHENERGAN) 12.5 mg tablet Take 1 tablet by mouth every 6 hours as needed. warfarin (COUMADIN) 5 mg tablet 2.5 mg //Tuesday, 5 mg all other days or as directed (Patient taking differently: 5 mg Fri/Sat/Sun, 2.5 mg all other days or as directed) docusate sodium (STOOL SOFTENER ORAL) Take by mouth as needed. OTC blood sugar diagnostic (BLOOD GLUCOSE TEST) test strip Test blood sugar(s) 1` times daily. Dx: Type2 DM - Uncontrolled E11.65 Insulin: No Lancets lancets Test blood sugar(s) 1` times daily. Dx: Type 2 DM - Uncontrolled E11.65 Insulin: No hydrocortisone (ANUSOL-HC) 2.5 % rectal cream by RECTAL route twice daily. multivitamin (MULTIPLE VITAMINS ORAL) Take by mouth. alcohol swabs (ALCOHOL PREP PADS) Apply 1 application to affected area once daily. loratadine (CLARITIN) 10 mg tablet Take 10 mg by mouth once daily. acetaminophen (TYLENOL) 325 mg tablet Take 500 mg by mouth. 2 TABLETS AT HS No current facility-administered medications for this visit. FAMILY HISTORY Problem Relation Age of Onset Arthritis Mother Hypertension Mother Dementia Mother Heart Father [place] Hypertension Father Heart disease Father other (DEPRESSION) Sister Stroke Sister Diabetes Brother Heart Attack Brother Heart disease Brother other (DEPRESSION) Brother Hypertension Brother Cancer No Family History none Social History Tobacco Use Smoking status: Never Smokeless tobacco: Never Vaping Use Vaping Use: Never used Substance Use Topics Alcohol use: Yes Comment: very seldom Drug use: No REVIEW OF SYSTEMS GENERAL: No weight loss- has had gain, + malaise, no fevers/chills HEENT: Some brief annoying headaches but not frequent or significant, No changes in hearing or vision. Drooling. NECK: Negative for lumps, goiter, pain and significant neck swelling RESPIRATORY: + Non-productive cough, no hemoptysis, no wheezing, + dyspnea or shortness of breath CARDIOVASCULAR: Negative for chest pain, + leg swelling, no orthopnea, no palpitations but has PPM GI: + nausea, no vomiting, no diarrhea/constipation- on miralax. No hematochezia/melena. some heartburn or reflux symptoms. : No history of dysuria, frequency or incontinence MUSCULOSKELETAL: Negative for joint pain or swelling except knees and right rib. Ecchymosis on right anterior rib SKIN: Negative for lesions, no rash, back of neck itching & left big toe black spot ENDOCRINE: Negative for cold or heat intolerance, polyuria, polydipsia and goiter- not testing BSS NEURO: No history of headaches, syncope, paralysis, seizures or tremors MOOD: Negative for depression, anxiety, or suicidal ideation. EXAM: BP 130/68 Pulse 68 Resp 16 Wt 91.2 kg (201 lb) SpO2 98% BMI 34.50 kg/m PHYSICAL EXAM: Physical Exam Vitals reviewed. Constitutional: Appearance: Normal appearance. HENT: Head: Normocephalic. Right Ear: Tympanic membrane and ear canal normal. There is no impacted cerumen. Left Ear: Tympanic membrane and ear canal normal. There is no impacted cerumen. Nose: Nose normal. No congestion. Mouth/Throat: Mouth: Mucous membranes are moist. Pharynx: Oropharynx is clear. No oropharyngeal exudate or posterior oropharyngeal erythema. Neck: Vascular: No carotid bruit. Cardiovascular: Rate and Rhythm: Normal rate and regular rhythm. Pulses: Normal pulses. Heart sounds: Normal heart sounds. Pulmonary: Effort: Pulmonary effort is normal. Breath sounds: Normal breath sounds. Abdominal: General: There is no distension. Palpations: Abdomen is soft. Tenderness: There is abdominal tenderness. There is no guarding or rebound. Comments: Jeremy. Pelvis tenderness on palpation, + [place] Musculoskeletal: Cervical back: No tenderness. Comments: Lumbar pain, moves all ext. Walks w/o assisitve device Lymphadenopathy: Cervical: No cervical adenopathy. Skin: General: Skin is warm and dry. Neurological: Mental Status: She is alert and oriented to person, place, and time. LABS: Get flat plate of Xray Screening labs ASSESSMENT/PLAN: 1. Nausea - ICD9: 787.02, ICD10: R11.0 (primary diagnosis) ongoing - ONDANSETRON 4 MG DISINTEGRATING TABLET 2. Pelvic pain - ICD9: MCP2403, ICD10: R10.2 Differential Diagnosis includes likely scar tissue 3. Class 1 obesity due to excess calories with serious comorbidity and body mass index (BMI) of 34.0 to 34.9 in adult - ICD9: 278.00, V85.34, ICD10: E66.09, Z68.34 Weight increasing - Eat well program 4. Chronic fatigue - ICD9: 780.79, ICD10: R53.82 Ongoing - check TSH 5. Screening for lipid disorders - ICD9: V77.91, ICD10: Z13.220 Ongoing 6. Paroxysmal atrial fibrillation (HCC) - ICD9: 427.31, ICD10: I48.0 Stable 7. Other cirrhosis of liver (HCC) - ICD9: 571.5, ICD10: K74.69 Check labs 8. Gastroesophageal reflux disease without esophagitis - ICD9: 530.81, ICD10: K21.9 Ongoing 9. Controlled type 2 diabetes mellitus without complication, without long-term current use of insulin (HCC) - ICD9: 250.00, ICD10: E11.9 - Control undetermined, due for labs - Continue current medications - check urine for MA/C Discussed treatment plan and patient voices understanding. Patient's questions answered appropriately. Medications and potential side effects were discussed and patient voices understanding. Return to the office as scheduled or as needed for worsening/no improvement. Areli Escobar APRN.JASEN documented in this encounterSt. [facility]08-[facility]-20[facility] Telephone encounter Note * Telephone Encounter - Claudia Angel LPN - 10/17/2023 2:04 PM EDT Pt calls in asking if she needs to come in before her appt Tuesday for a new urine cx. Advised orderis placed and cx can be done 2 days before appt to have results to review at appt. Pt states she will come in tomorrow. Claudia Angel LPN [facility]08-12-2024 Miscellaneous Notes* Telephone Encounter - Claudia Angel LPN - 10/17/2023 2:04 PM EDT Pt calls in asking if she needs to come in before her appt Tuesday for a new urine cx. Advised orderis placed and cx can be done 2 days before appt to have results to review at appt. Pt states she will come in tomorrow. Claudia Angel LPN documented in this encounterSt. [facility]08-05-2024 Telephone encounter Note * Telephone Encounter - Malathi Nicolas MA - 10/10/2023 9:48 AM EDT Patient was made aware of the results. Patient verbalizes understanding. Malathi Nicolas Ma [facility]08-[facility]24 Miscellaneous Notes* Telephone Encounter - Malathi Nicolas MA - 10/10/2023 9:48 AM EDT Patient was made aware of the results. Patient verbalizes understanding. Malathi Nioclas Ma * Telephone Encounter - Areli Escobar APRN.CNP - 10/10/2023 7:55 AM EDT Please let patient know that she does have E. coli in her urine. The amoxicillin we gave her shouldbe effective in eradicating the bacteria. Once that antibiotic is complete, please come and get another urine culture so we can make certain that it has resolved. documented in this encounterSt. [facility]08-05-2024 Telephone encounter Note * Telephone Encounter - Areli Escobar APRN.CNP - 10/10/2023 7:55 AM EDT Please let patient know that she does have E. coli in her urine. The amoxicillin we gave her shouldbe effective in eradicating the bacteria. Once that antibiotic is complete, please come and get another urine culture so we can make certain that it has resolved. [facility] Instructions* Patient Instructions* Areli Escobar APRN.CNP - 10/07/2023 2:36 PM EDT 1) Amoxicillin 500 mg 2 x day for 7 days 2) Miralax samples daily 3) Drink 64 oz. Water daily 4) Follow up in 2 weeks documented in this encounterSt. [facility]08-02-2024 History of Present illness Narrative* Arlei Escobar APRN.CNP - 10/07/2023 2:14 PM EDT This is a 73 year old female who presents today with: Patient presents with: Urinary Problem: incontinence, dysuria, LLQ pain, nausea for 2 weeks Constipation Mouth/Lip Problem: Lower left mouth pain HISTORY OF PRESENT ILLNESS: Laisha Walker is a 73 year old female. Patient presents with: Urinary Problem: incontinence, dysuria, LLQ pain, nausea for 2 weeks Constipation Mouth/Lip Problem: Lower left mouth pain IBS with hemorrhoids. If she doesn't take the stool softener with mild laxative, she can't go. Has a drink of water whenever she walks through the kitchen. Recently had she had hemorrhoids lanced. Cancer removed from right kidney a few years back. Since then, UTI frequency has increased. Painfulurination since last night. Incontinence recently. Pain just under left mandible. No teeth- had them all pulled. Told she had spurs that will work its way out. Noticed pain this morning. PAST MEDICAL HISTORY: PAST MEDICAL HISTORY No date: Atrial fibrillation (HCC) Comment: SEES DR. BARRERA No date: Carotid stenosis, asymptomatic No date: CVA (cerebral vascular accident) ([facility]) Comment: post op after 2017 bilateral knee replacements - per pt was told by neurology that it was a questionable stroke 01/22/2023: Diabetes mellitus type 2 in obese No date: DVT (deep venous thrombosis) ([facility]) Comment: post op No date: Dysthymic disorder Comment: Depression (non-psychotic) No date: Esophageal reflux No date: Essential hypertension, benign No date: Goiter, unspecified Comment: Goiter No date: Liver cirrhosis (HCC) No date: Macular degeneration (senile) of retina, unspecified Comment: Macular degeneration No date: Other and unspecified hyperlipidemia No date: Renal carcinoma, right (HCC) 01/25/2023: S/P placement of cardiac pacemaker Comment: Patient underwent implantation of [employer] permanent pacemaker with right atrial and right ventricular apex leads with Dr. Steele on 01/24/2023. No date: Type 2 diabetes mellitus (HCC) PAST SURGICAL HISTORY 1962: APPENDECTOMY Comment: RUPTURED APPENDIX 2017: ARTHRP KNE CONDYLE&PLATU MEDIAL&LAT COMPARTMENTS; Bilateral 1996: CHOLECYSTECTOMY Comment: Cholecystectomy No date: COLONOSCOPY Comment: [facility] 06/11/2020: EGD EUS Comment: benign leiomyoma GE junction, mild antral gastropathy, fatty pancreas, likely cirrhotic liver, prominent dilated portal vein 05/18/2019: NEPHRECTOMY PARTIAL; Right Comment: robotic 07/15/1999: PAST SURGICAL HISTORY OF Comment: LEFT SHOULDER 2018: PAST SURGICAL HISTORY OF; Left Comment: REPAIR OF LEFT KNEE FRACTURE 1985: TOTAL ABDOMINAL HYSTERECT W/WO RMVL TUBE OVARY Comment: Hysterectomy, JERRY ALLERGIES Gabapentin, Accupril [Quinapril Hcl], Bextra [Valdecoxib], Celebrex [Celecoxib], Codeine,Entex La [Phenylephrine-Guaifenesin], Glucophage [Metformin Hcl], Lipitor [Atorvastatin Calcium], Lodine [Etodolac], Naprosyn [Naproxen], Nsaids (Non-Steroidal Anti-Inflammatory Drug), Pravachol [Pravastatin Sodium], Sulfa (Sulfonamide Antibiotics), Ultracet [Tramadol-Acetaminophen], Vicodin [Hydrocodone-Acetaminophen], Vioxx [Rofecoxib], and Zocor [Simvastatin] MEDICATIONS Current Outpatient Medications Medication Sig metoprolol tartrate, short acting, (LOPRESSOR) 50 mg tablet Take 50 mg by mouth two times a day. glipiZIDE (GLUCOTROL) 5 mg tablet Take 1 tablets by mouth before breakfast and one tablet by mouth before dinner rosuvastatin (CRESTOR) 10 mg tablet Take 20 mg by mouth once daily. losartan (COZAAR) 25 mg tablet Take 0.5 tablets by mouth every afternoon. promethazine (PHENERGAN) 12.5 mg tablet Take 1 tablet by mouth every 6 hours as needed. warfarin (COUMADIN) 5 mg tablet 2.5 mg //Tuesday, 5 mg all other days or as directed (Patient taking differently: 5 mg Tue/Tue/Tue, 2.5 mg all other days or as directed) docusate sodium (STOOL SOFTENER ORAL) Take by mouth as needed. OTC hydrocortisone (ANUSOL-HC) 2.5 % rectal cream by RECTAL route twice daily. multivitamin (MULTIPLE VITAMINS ORAL) Take by mouth. loratadine (CLARITIN) 10 mg tablet Take 10 mg by mouth once daily. acetaminophen (TYLENOL) 325 mg tablet Take 500 mg by mouth. 2 TABLETS AT HS blood sugar diagnostic (BLOOD GLUCOSE TEST) test strip Test blood sugar(s) 1` times daily. Dx: Type2 DM - Uncontrolled E11.65 Insulin: No Lancets lancets Test blood sugar(s) 1` times daily. Dx: Type 2 DM - Uncontrolled E11.65 Insulin: No alcohol swabs (ALCOHOL PREP PADS) Apply 1 application to affected area once daily. No current facility-administered medications for this visit. FAMILY HISTORY Problem Relation Age of Onset Arthritis Mother Hypertension Mother Dementia Mother Heart Father [place] Hypertension Father Heart disease Father other (DEPRESSION) Sister Stroke Sister Diabetes Brother Heart Attack Brother Heart disease Brother other (DEPRESSION) Brother Hypertension Brother Cancer No Family History none Social History Tobacco Use Smoking status: Never Smokeless tobacco: Never Vaping Use Vaping Use: Never used Substance Use Topics Alcohol use: Yes Comment: very seldom Drug use: No REVIEW OF SYSTEMS GENERAL: + weight gain, + malaise, no fevers/ +chills HEENT: + occipital headache just today- out of ordinary, No changes in hearing or vision. NECK: Negative for lumps, goiter, pain and significant neck swelling RESPIRATORY: + cough- swallows spit wrong, no hemoptysis, no wheezing, + dyspnea or shortness of breath CARDIOVASCULAR: Negative for chest pain, some pedal leg swelling, + orthopnea moire for knees than breathing, no palpitations since pacemaker GI: + nausea, no vomiting, no diarrhea/ + constipation. No hematochezia/melena except bright red from hemorrhoids. No heartburn or reflux symptoms- terrible belching. : + dysuria, no frequency, + incontinence MUSCULOSKELETAL: Always joint pain or swelling. EXAM: BP 132/70 Pulse 68 Temp 36.9 C (98.5 F) (Tympanic) SpO2 96% PHYSICAL EXAM: Physical Exam Vitals reviewed. Constitutional: Appearance: Normal appearance. HENT: Head: Normocephalic. Comments: Palpable lymph node along mandible 2/3 posterior along ridge- tender to palpate. Cardiovascular: Rate and Rhythm: Normal rate and regular rhythm. Heart sounds: S1 normal and S2 normal. Pulmonary: Effort: Pulmonary effort is normal. Breath sounds: Normal breath sounds. Neurological: Mental Status: She is alert. LABS: send urine culture ASSESSMENT/PLAN: ASSESSMENT/PLAN: 1. Dysuria - ICD9: 788.1, ICD10: R30.0 (primary diagnosis) acute - Patient education for prevention given - UA DIP, URINE (POC) + nitrates, mod. Leukocytes, and large amt. blood - URINE CULTURE - AMOXICILLIN 500 MG TABLET for 7 days 2. Chronic constipation - ICD9: 564.00, ICD10: K59.09 Sample of Miralax given to pt. To try 3. Jaw pain - ICD9: 784.92, ICD10: R68.84 Enlarged lymph node - Starting amoxicillin anyway - WILL NEED FOLLOWED UP Discussed treatment plan and patient voices understanding. Patient's questions answered appropriately. Medications and potential side effects were discussed and patient voices understanding. Return to the office as scheduled or as needed for worsening/no improvement. Areli Escobar APRN.JASEN documented in this encounterSt. [facility] Telephone encounter Note * Telephone Encounter - Meggan Chaudhari RN - 10/07/2023 10:10 AM EDT Pt calling in with c/o UTI symptoms again. Has burning, urgency and leakage of urine. Pt states shefeels like she is getting a UTI every 2-3 weeks. This is the first time she has leaked urine. Pt also states she woke up this morning with a painful jaw-tender to even touch it. Unsure why it is hurting. She states all her teeth have been pulled in that area. She can't wear her partial because it is so painful. Pt states she noted she was drooling out that side of her mouth a couple of weeks ago but did not have pain in the jaw until this morning. Pt c/o constipation-states having bleeding from her hemorrhoids. Pt has been trying to drink more water and is taking stool softeners but they don't seem to be helping. Pt booked for an appt with Zina hSawn this afternoon at 2 pm. Pt reminded she will have to give a urine sample when she comes in. [facility] Miscellaneous Notes* Telephone Encounter - Meggan Chaudhari RN - 10/07/2023 10:10 AM EDT Pt calling in with c/o UTI symptoms again. Has burning, urgency and leakage of urine. Pt states shefeels like she is getting a UTI every 2-3 weeks. This is the first time she has leaked urine. Pt also states she woke up this morning with a painful jaw-tender to even touch it. Unsure why it is hurting. She states all her teeth have been pulled in that area. She can't wear her partial because it is so painful. Pt states she noted she was drooling out that side of her mouth a couple of weeks ago but did not have pain in the jaw until this morning. Pt c/o constipation-states having bleeding from her hemorrhoids. Pt has been trying to drink more water and is taking stool softeners but they don't seem to be helping. Pt booked for an appt with Zina Escobar this afternoon at 2 pm. Pt reminded she will have to give a urine sample when she comes in. documented in this encounterSt. Rita'[facility] Hospital06-24-2024 Telephone encounter Note * Telephone Encounter - Cheryl Harrison MA - 08/29/2023 3:09 PM EDT Pt notified. Cheryl Harrison MA [facility] Miscellaneous Notes* Telephone Encounter - Cheryl Harrison MA - 08/29/2023 3:09 PM EDT Pt notified. Cheryl Harrison MA * Telephone Encounter - Flako Tracy MD - 08/29/2023 3:07 PM EDT OK for Keflex as ordered, this should be effective based on her urine culture results Flako Tracy MD * Telephone Encounter - Tresa Noriega LPN - 08/29/2023 10:11 AM EDT Patient calling she was in express care on 08/24/2023 for UTI was given generic Macrobid rx. She stopped taking the macrobid Tuesday morning due to making her feel dizzy. Patient asking if she needs denisse changed to another antibiotic? Patient uses [facility] for her pharmacy. Patient said shehad UTI month before and took Cephalexin from another urgent care. Please advise documented in this encounterSt. Rita'S Hospital06-24-2024 Telephone encounter Note * Telephone Encounter - Flako Tracy MD - 08/29/2023 3:07 PM EDT OK for Keflex as ordered, this should be effective based on her urine culture results Flako Tracy MD [facility]-24[facility]24 Telephone encounter Note* Telephone Encounter - Tresa Noriega LPN - 08/29/2023 10:11 AM EDT Patient calling she was in express care on 08/24/2023 for UTI was given generic Macrobid rx. She stopped taking the macrobid Tuesday morning due to making her feel dizzy. Patient asking if she needs denisse changed to another antibiotic? Patient uses [facility] for her pharmacy. Patient said shehad UTI month before and took Cephalexin from another urgent care. Please advise [facility]06-19[facility] History of Present illness Narrative* Fermin Weathers MD - 08/24/2023 4:34 PM EDT Patient presents with: Urinary Problem: Possible uti, cloudy urine, lower left abdominal pain/bladder spasms, urgency x 2 days HPI: Symptoms for 3 days. Dysuria: No Frequency: Yes Hematuria: No Nausea: Yes Fever or chills: No Back pain: chronically. Also fell into a door last week and hurt her right side Abdominal pain: left lower quadrant cramping. Bowels are moving normally. Prior UTI: Yes MEDICATIONS: Current Outpatient Medications Medication Sig glipiZIDE (GLUCOTROL) 5 mg tablet Take 1 tablets by mouth before breakfast and one tablet by mouth before dinner rosuvastatin (CRESTOR) 10 mg tablet Take 20 mg by mouth once daily. losartan (COZAAR) 25 mg tablet Take 0.5 tablets by mouth every afternoon. promethazine (PHENERGAN) 12.5 mg tablet Take 1 tablet by mouth every 6 hours as needed. warfarin (COUMADIN) 5 mg tablet 2.5 mg //Tuesday, 5 mg all other days or as directed docusate sodium (STOOL SOFTENER ORAL) Take by mouth as needed. OTC blood sugar diagnostic (BLOOD GLUCOSE TEST) test strip Test blood sugar(s) 1` times daily. Dx: Type2 DM - Uncontrolled E11.65 Insulin: No Lancets lancets Test blood sugar(s) 1` times daily. Dx: Type 2 DM - Uncontrolled E11.65 Insulin: No hydrocortisone (ANUSOL-HC) 2.5 % rectal cream by RECTAL route twice daily. multivitamin (MULTIPLE VITAMINS ORAL) Take by mouth. alcohol swabs (ALCOHOL PREP PADS) Apply 1 application to affected area once daily. loratadine (CLARITIN) 10 mg tablet Take 10 mg by mouth once daily. acetaminophen (TYLENOL) 325 mg tablet Take 500 mg by mouth. 2 TABLETS AT HS No current facility-administered medications for this visit. ALLERGIES: ALLERGIES Allergen Reactions Gabapentin Other: See Comments Dizziness Accupril [Quinapril* Other: See Comments Bextra [Valdecoxib] GI Upset Celebrex [Celecoxib] GI Upset Codeine Other: See Comments Entex La [Phenyleph* Other: See Comments Glucophage [Metform* Other: See Comments Lipitor [Atorvastat* Other: See Comments Lodine [Etodolac] GI Upset Naprosyn [Naproxen] Other: See Comments Nsaids (Non-Steroid* Other: See Comments Pravachol [Pravasta* Other: See Comments Worsening abdominal pain Sulfa (Sulfonamide * GI Upset Ultracet [Tramadol-* Other: See Comments Vicodin [Hydrocodon* Other: See Comments Vioxx [Rofecoxib] Other: See Comments Zocor [Simvastatin] Other: See Comments VITALS: BP 140/66 Pulse 70 Temp 37.2 C (98.9 F) Resp 21 Wt 91.7 kg (202 lb 2.6 oz) SpO2 95% BMI34.70 kg/m PHYSICAL EXAM: GEN: NAD HEENT: EOMI, conjunctiva clear, HEART: regular rate and rhythm, no murmurs LUNGS: clear to auscultation, no wheezes or crackles, no increased WOB ABDOMEN: Soft, nondistended, no masses, LLQ tenderness BACK: bilateral R>L tenderness. Latest Ref Rng 01/25/2023 eGFR >=60 mL/min/1.73m 50 (L) ASSESSMENT/PLAN: 1. Urgency of urination - ICD9: 788.63, ICD10: R39.15 - UA DIP, URINE (POC) - positive for blood and LE. Treat UTI with macrobid. - URINE CULTURE Advised follow up in the ER with increasing LLQ pain or if she develops fever. Fermin Weathers MD documented in this encounterSt. Rita'S Hospital12-08-2023 History of Present illness Narrative* Kay Ken RN - 02/11/2023 2:33 PM EST PATIENT NOTIFIED OF INFORMATION * Kay Ken RN - 02/11/2023 1:32 PM EST patient had inr completed at [facility] patients inr is 4.7 (patients inr range is 2.0-3.0) patient is currently taking 2.5mg Tues,Thurs,Sat and 5mg all other days) patients last dose change unknown patient has had no changes in medication and no missed doses and no change in diet recommend: patient hold coumadin today and then go to 5mg Mon Wed and 2.5mg all other days and recheck inr in 1 week patient will call to schedule follow up pleas review and advise on recommendation * James Riley [facility] - 02/11/2023 1:15 PM EST Please advise patient to hold warfarin today (Feb 11), then decrease weekly warfarin dose to: 5 mg every Mon, Wed, Fri; 2.5 mg all other days Recheck INR in 1-2 weeks. documented in this encounterSt. Rita'S Hospital12-01-2023 Miscellaneous Notes* Telephone Encounter - Izabel Faye [facility] - 02/04/2023 1:49 PM EST Patient due to test INR today. Will continue to monitor for results. Izabel Faye [facility] * Telephone Encounter - Katia Comer [facility] - 01/31/2023 3:31 PM EST Spoke to patient. She is going to call [facility] and make an appt for 02/04 * Telephone Encounter - Magaly Farmer [facility] - 01/28/2023 3:37 PM EST Called patient - no answer. Seems she may be in the ED. Recent ICD implant. PAC will follow up on Tuesday. Magaly Farmer, PharmD., CACP documented in this encounterSt. Rita'S Hospital11-30-2023 Nurse Note* Katherin Kahn RN - 02/03/2023 9:41 AM EST Spoke with patient and regarding wound check, s/p device insertion. Left sided upper chest incisionintact per patient with steri strips. Patient denies any fever or chills. Patient denies any drainage, redness or bleeding. Reviewed post device instructions and restrictions with patient who voiced understanding. Katherin Kahn RN documented in this encounterSt. Rita'S Hospital11-22-2023 History of Present illness Narrative* Yuri Chavarria RN - 01/26/2023 11:40 AM EST TCM Home Visit Referral Source of Stratification: [facility] Admission Status: Discharged Readmission Risk Score: 17 MERRICK Score: 32 Patient meets program referral criteria: No Patient does not qualify for High Risk TCM Home Visit program due to: Discharged home, does not meet program criteria Yuri Chavarria RN January 26, 2023 11:40 AM TRANSITIONAL CARE MANAGEMENT (TCM) COMMUNITY MONITORING PROGRAM Provider Action/FYI: Spoke to patient. Denies SOB or chest pain. Denies fever or chills. Denies s/s of infection or bleeding at incision site. Pt states incision does itch. Denies pain. Pt states she did have some dizziness this morning but it resolved Pt believes it was her Blood sugar. When she checked the BS it was 101. Pt stated that is low for her and she typically runs around 140. Denies questions or concerns re: medications, self-care, and discharge instructions. Agreeable with recommended plan of care. Call PCP for new/worsening symptoms Offered TCM f/u with PCP Pt declined Pt has 6 month f/u on 02/09/23 Pt has Wound check f/u on 02/03/23 Pt has device check on 03/08/22 Appointments for Next 60 Days Date Time Provider Location Dept Phone 02/03/2023 10:00 AM NURSE CARD [facility] [phone] 02/09/2023 9:40 AM [facility] [phone] 03/08/2023 1:00 PM DEVICE CLINIC [facility] [phone] SUMMARY: Discharge Network Status: In-Network Discharge Pt discharged from [facility] on 01/25/23. Admitted for: Heart block Transitions of Care Critical Issues: NEW BASELINE FOR PATIENT: s/p pacemaker placement IMAGING FOLLOW-UP: none LAB MONITORING NEEDED: none SPECIALIST FOLLOW-UP: none [facility] MEDICATION CHANGES: none PROCEDURES SCHEDULED: none LABS AND PROCEDURES PENDING AT DISCHARGE: No pending results. Operations During Hospitalization: None Procedures During Hospitalization: Pacemaker placement Hospital Course: Laisha Walker is a 72 year old female with PMH: Atrial fibrillation Carotid stenosis Self reported 90% stenosis of left w/ significant collaterals, 50% stenosis of right US 10/27/20 Left ICA occlusion Right ICA 20-39% stenosis CVA DVT Warfarin 5 mg daily HTN T2DM (HBA1c 7.7 6 months ago) CKD 3a Renal carcinoma, right Cirrhosis Orthostatic hypotension Depression GERD Goiter Planning for FNA Who presented to the [place] [facility] on January 21, 2023 after a syncopal event at home. Of note, patient was evaluated in the [facility] ED on 01/14 and by her PCP today for this same issue. Patient reports she has been having dizziness for the past 5 months however the episode she had yesterday was a lot worse and when she checked her heart rate it was 35. She initially went to [facility] ED on January 14 for chief complaint of frequent falls and syncope and was diagnosed with orthostatic hypotension. Her home sotalol and hydrochlorothiazide was held and patient was discharged. She again went to her PCP yesterday with similar complaints. Yesterday in the [facility] ED, she was normotensive heart rate of 71 however telemetry was concerning for complete heart block and her heart rate fell to 30s. Her labs were unremarkable and EKG showed normal sinus rhythm with incomplete right bundl e branch block however repeat EKG showed second-degree AV block with 4:1 conduction. Of note, patient reports a tick bite 2 weeks ago which was removed when she noticed it and she is unsure how long it was there. She does not complain of any fever or any rash, arthralgias or myalgias. Review of system was otherwise unremarkable. Given her high-degree AV block, a permanent pacemaker was placed on Tuesday01/24/2023 without complications. She was observed overnight in CVICU and is now stable to be discharged. Contact made with patient: Yes Hi my name is Yuri Chavarria RN and I am calling [facility] the [facility] on behalf of your PCP, Flako Tracy MD I understand you were recently in the hospital so I am calling to check in with you to ensure you are feeling well now that you're home. May I ask you a few questions related to your hospital stay and well-being? Yes Contact with patient post discharge, spoke to patient. Patient identified by name and . Do you feel your health is BETTER, WORSE, or the SAME since leaving the hospital? Better ACTION TAKEN: Patient indicated symptoms are better or same, no action required. Continue outreach. MEDICATIONS: Many patients have questions or concerns about their medications once they are home. Do you have any questions about taking your medications or which medication you should be on? No Do you need any medication refills at this time, including any of the medications you might take only when needed? No ACTION TAKEN: No action required For RNs or Pharmacy completing outreach ONLY, was a medication review completed? Yes SOCIAL: We would like to make sure you have what you need so that your basics needs are met - including your personal safety, food, housing and medications. Would you like to speak with a social work team lead to help give you support for any of these needs? No It can be normal to feel anxious or down during a time like this. Would you like to talk to a mental health professional about how you have been feeling? No ACTION TAKEN: No action taken DISCHARGE INTRUCTIONS: Your discharge instructions / After Visit Summary (AVS) are important in guiding you through the recovery process. Do you have any questions related to your discharge instructions? No Do you have all the necessary equipment and supplies at home? Yes ACTION TAKEN: No action required I would like to help you schedule a hospital follow-up virtual or telephone visit with your PCP. This is a great way for you to connect with your provider to ensure you have safely transitioned home.If you are agreeable, I will send your request to a scheduler conveyor who will contact and assist you with that appointment. This will give you an opportunity to ask any questions or address any concerns youmay have with your PCP. Inform the patient that if they have any questions or concerns prior to that appointment, to call their PCP's office right away. ACTION TAKEN: No action required, patient already has an appointment scheduled. Your doctor would like us to remind you of the recommendations regarding the coronavirus (Covid19) outbreak: Avoid public places as much as possible. Avoid close contact (within 6 feet) with others you don t live with, especially if they are sick. Stay home if you are sick. Wash your hands regularly for at least 20 seconds with soap and water. Wear a cloth mask in public places to help reduce community spread. Do not go to your Doctor s office unless instructed to do so. For any non- emergency symptoms, call your Doctor s office to get instructions on how to manage (we might recommend a telephone or virtualvisit). For emergency symptoms, proceed to Emergency Department as usual but inform them of cough and fever symptoms [place] if present (or call on the way if possible). ARIELLA Education Ordered -: No Yuri Chavarria RN documented in this encounterSt. Rita'S Hospital11-21-2023 Miscellaneous Notes* Telephone Encounter - Yolande Little - 01/25/2023 3:33 PM EST Follow up(s) scheduled. Patient to be notified upon discharge. Yolande Anabel * Telephone Encounter - Miguelito Bruno APRN.MORTICIAN INVESTIGATOR - 01/25/2023 1:56 PM EST Patient underwent implantation of [place] dual-chamber permanent pacemaker with Dr. Steele in01/24/2023. She will need a wound check phone call in 1 week. Subsequently she would prefer to follow with her established general secretarial stenographer with the [facility] for device care moving forward. ThanksMiguelito APRN.MORTICIAN INVESTIGATOR January 25, 2023 1:58 PM documented in this encounterSt. Rita'S Hospital11-21-2023 Miscellaneous Notes* Telephone Encounter - Cheryl Harrison Ma - 01/25/2023 3:09 PM EST Pt notified and voiced understanding. Cheryl Harrison Ma * Telephone Encounter - Flako Tracy MD - 01/25/2023 2:55 PM EST With a 5 day course of prednisone there is no taper, she can just stop it. She may take the glipizide tonight if her sugar is still high; sugar levels should return to normalonce the prednisone is done. Flako Tracy MD * Telephone Encounter - Lorri Stevens LPN - 01/25/2023 1:44 PM EST Pt calls to report she as been in [facility] for a pacemaker. Pt reports she is being released today. Pt reports today is the fifth day of prednisone 40 mg daily x 5 days that was prescribed by pcp 12/21. Pt reports hospitalist was asking pt how she was going to taper prednisone. Pt reports she thought she was just taking med without a taper. Pt is asking if she needs to taper dose. Pt reports sugars have been high because of prednisone and she has been given insulin while in hospital instead of glipizde to cover high bs. Pt is asking if sugars run high later this evening if sheshould just take the glipizide. Please review and advise. Lorri Stevens LPN documented in this encounterSt. Rita'S Hospital11-21-2023 NoteHNO ID: [id number] Author: Kay Melendez RN Service: Electrophysiology Author Type: Registered Nurse Type: Progress Notes Filed: 01/25/2023 11:02 AM Note Text: Device check complete. Stable leads. Teaching reviewed with patient.[facility]11-21-2023 NoteHNO ID: [id number] Author: Lucio Ledezma DO Service: Cardiovascular Medicine Author Type: Resident Type: Progress Notes Filed: 01/25/2023 1:21 PM Note Text: Attestation signed by Adarsh Steele MD at 01/25/2023 2:27 PM I saw and evaluated the patient. Discussed with the resident and agree with resident's findings and plan as documented in the resident's note. Audelia Saucedo CVICU PROGRESS NOTE Service Date: 01/25/2023 Service Time: 7:30 AM Interval History: Patient is a 72 year old female with PMH significant for atrial fibrillation, carotid stenosis, DVT, HTN, Type II DM, cirrhosis, and orthostatic hypotension who initially presented to [facility] with a chief complaint of dizziness. She was admitted to CVICU for 3rd degree heart block. Yesterday, implantation of dual chamber pacemaker was completed. Denies shortness of breath. States there is mild pain near her incision site. Telemetry: Intermittent tachycardia last night between 1900 - 2100. Inpatient Medications: Current Facility-Administered Medications Medication Dose Route Frequency rosuvastatin 20 mg tab(s) (CRESTOR) 20 mg ORAL DAILY losartan 12.5 mg tab(s) (COZAAR) 12.5 mg ORAL DAILY potassium chloride ER 20-40 mEq tab(s) (KLOR-CON) 20-40 mEq ORAL/FEEDING TUBE PRN Or potassium chloride iv piggyback 20 mEq/100 mL 20 mEq INTRAVENOUS PRN phosphorus 500 mg tab(s) (K PHOS NEUTRAL) 500 mg ORAL/FEEDING TUBE PRN(NO DISPENSE) calcium gluconate iv piggyback 2 g in NaCl (iso-osmotic) 100 mL 2 g INTRAVENOUS PRN(NO DISPENSE) NaCl 0.9% iv flush bag 20 mL INTRAVENOUS PRN sodium chloride 0.9 % (flush) 2-10 mL (BD POSIFLUSH) 2-10 mL INTRAVENOUS DIRECTED PRN And perflutren lipid microspheres 1.1 mg/mL 1.3 mL injection (DEFINITY) 1.3 mL INTRAVENOUS DIRECTED PRN atropine 0.4 mg injection 0.4 mg INTRAVENOUS PRN(NO DISPENSE) dextrose 15 gram/32 mL 15 g (TRUEPLUS) 15 g ORAL PRN Or glucagon 1 mg injection 1 mg INTRAMUSCULAR PRN Or dextrose 10% iv bolus 12.5 g INTRAVENOUS PRN predniSONE 40 mg tab(s) (DELTASONE) 40 mg ORAL DAILY AT 12 PM insulin lispro injection (rapid acting) (ADMElog) SUBCUTANEOUS w MEALS acetaminophen 1,000 mg tab(s) (TYLENOL) 1,000 mg ORAL q 6 H PRN WARFARIN DOSING PER PHARMACY 1 Each OTHER DAILY - WARFARIN vancomycin 1.5 g in NaCl 0.9% 250 mL (VANCOCIN) 0.015 g/kg/dose INTRAVENOUS ONCE Home Medications: rosuvastatin (CRESTOR) 10 mg tabletTake 20 mg by mouth once daily.Disp: Rfl: predniSONE (DELTASONE) 20 mg tabletTake 2 tablets by mouth once daily for 5 days.Disp: 10 tabletRfl: 0 losartan (COZAAR) 25 mg tabletTake 0.5 tablets by mouth every afternoon.Disp: Rfl: promethazine (PHENERGAN) 12.5 mg tabletTake 1 tablet by mouth every 6 hours as needed.Disp: 8 tabletRfl: 0 warfarin (COUMADIN) 5 mg tablet2.5 mg //Tuesday, 5 mg all other days or as directedDisp: 30 tabletRfl: 0 glipiZIDE (GLUCOTROL) 5 mg tabletTake 1 tablets by mouth before breakfast and one tablet by mouth before dinnerDisp: 180 tabletRfl: 3 docusate sodium (STOOL SOFTENER ORAL)Take by mouth as needed. OTCDisp: Rfl: blood sugar diagnostic (BLOOD GLUCOSE TEST) test stripTest blood sugar(s) 1` times daily. Dx: Type 2 DM - Uncontrolled E11.65 Insulin: NoDisp: 100 StripRfl: 3 Lancets lancetsTest blood sugar(s) 1` times daily. Dx: Type 2 DM - Uncontrolled E11.65 Insulin: NoDisp: 100 EachRfl: 3 hydrocortisone (ANUSOL-HC) 2.5 % rectal creamby RECTAL route twice daily.Disp: 28 gRfl: 0 multivitamin (MULTIPLE VITAMINS ORAL)Take by mouth.Disp: Rfl: alcohol swabs (ALCOHOL PREP PADS)Apply 1 application to affected area once daily.Disp: 200 EachRfl: 11 loratadine (CLARITIN) 10 mg tabletTake 10 mg by mouth once daily.Disp: Rfl: acetaminophen (TYLENOL) 325 mg tabletTake 500 mg by mouth. 2 TABLETS AT HSDisp: Rfl: Physical Exam: 01/25/23 0500 01/25/23 0600 01/25/23 0601 01/25/23 0700 BP: 129/62 155/70 155/70 Pulse: 73 80 73 Resp: 20 18 21 Temp: 36.2 ?C (97.2 ?F) TempSrc: SpO2: 93% 96% 96% Weight: Height: Intake/Output: Intake/Output Summary (Last 24 hours) at 01/25/2023 0730 Last data filed at 01/25/2023 0601 Gross per 24 hour Intake 1370 ml Output 1300 ml Net 70 ml General: Awake and alert, in no distress, cooperative Neck: Supple without JVD or Lymphadenopathy Cardiac: RRR, S1S2 with no MGR. Dressing over left chest wall. Lungs: Clear to auscultation bilaterally Abdomen: Soft non-tender, non-distended, normal bowel sounds Extremities: No deformities, edema, clubbing or skin discoloration. Lab Data and Diagnostic Imaging: Recent Labs 01/25/23 0250 WBC 10.41 RBC 4.08 HB 11.4* HCT 34.9* MCV 85.5 MCH 27.9 MCHC 32.7 RDWCV 13.5 PLT 291 MPV 10.8 GLUC 3 (more content not included)...[facility]11-20-2023 Note HNO ID: [id number] Author: Adarsh Steele MD Service: Cardiovascular Medicine Author Type: Physician Type: Progress Notes Filed: 01/25/2023 2:24 PM Note Text: [facility] CVICU PROGRESS NOTE Service Date: 01/24/2023 Service Time: 6:53 AM Interval History: Patient is a 72 year old female with PMH significant for atrial fibrillation, carotid stenosis, DVT, HTN, Type II DM, cirrhosis, and orthostatic hypotension who initially presented to [facility] with a chief complaint of dizziness. She was admitted to CVICU for 3rd degree heart block. She states she is currently asymptomatic, resting comfortably in bed. No chest pain or shortness of breath. Inpatient Medications: Current Facility-Administered Medications Medication Dose Route Frequency rosuvastatin 20 mg tab(s) (CRESTOR) 20 mg ORAL DAILY losartan 12.5 mg tab(s) (COZAAR) 12.5 mg ORAL DAILY potassium chloride ER 20-40 mEq tab(s) (KLOR-CON) 20-40 mEq ORAL/FEEDING TUBE PRN Or potassium chloride iv piggyback 20 mEq/100 mL 20 mEq INTRAVENOUS PRN phosphorus 500 mg tab(s) (K PHOS NEUTRAL) 500 mg ORAL/FEEDING TUBE PRN(NO DISPENSE) calcium gluconate iv piggyback 2 g in NaCl (iso-osmotic) 100 mL 2 g INTRAVENOUS PRN(NO DISPENSE) NaCl 0.9% iv flush bag 20 mL INTRAVENOUS PRN sodium chloride 0.9 % (flush) 2-10 mL (BD POSIFLUSH) 2-10 mL INTRAVENOUS DIRECTED PRN And perflutren lipid microspheres 1.1 mg/mL 1.3 mL injection (DEFINITY) 1.3 mL INTRAVENOUS DIRECTED PRN atropine 0.4 mg injection 0.4 mg INTRAVENOUS PRN(NO DISPENSE) dextrose 15 gram/32 mL 15 g (TRUEPLUS) 15 g ORAL PRN Or glucagon 1 mg injection 1 mg INTRAMUSCULAR PRN Or dextrose 10% iv bolus 12.5 g INTRAVENOUS PRN predniSONE 40 mg tab(s) (DELTASONE) 40 mg ORAL DAILY AT 12 PM insulin lispro injection (rapid acting) (ADMElog) SUBCUTANEOUS w MEALS vancomycin 1.5 g in NaCl 0.9% 250 mL (VANCOCIN) 0.015 g/kg/dose INTRAVENOUS Tube Mill Operator to OR acetaminophen 1,000 mg tab(s) (TYLENOL) 1,000 mg ORAL q 6 H PRN WARFARIN DOSING PER PHARMACY 1 Each OTHER DAILY - WARFARIN Home Medications: rosuvastatin (CRESTOR) 10 mg tabletTake 20 mg by mouth once daily.Disp: Rfl: predniSONE (DELTASONE) 20 mg tabletTake 2 tablets by mouth once daily for 5 days.Disp: 10 tabletRfl: 0 losartan (COZAAR) 25 mg tabletTake 0.5 tablets by mouth every afternoon.Disp: Rfl: promethazine (PHENERGAN) 12.5 mg tabletTake 1 tablet by mouth every 6 hours as needed.Disp: 8 tabletRfl: 0 warfarin (COUMADIN) 5 mg tablet2.5 mg //Tuesday, 5 mg all other days or as directedDisp: 30 tabletRfl: 0 glipiZIDE (GLUCOTROL) 5 mg tabletTake 1 tablets by mouth before breakfast and one tablet by mouth before dinnerDisp: 180 tabletRfl: 3 docusate sodium (STOOL SOFTENER ORAL)Take by mouth as needed. OTCDisp: Rfl: blood sugar diagnostic (BLOOD GLUCOSE TEST) test stripTest blood sugar(s) 1` times daily. Dx: Type 2 DM - Uncontrolled E11.65 Insulin: NoDisp: 100 StripRfl: 3 Lancets lancetsTest blood sugar(s) 1` times daily. Dx: Type 2 DM - Uncontrolled E11.65 Insulin: NoDisp: 100 EachRfl: 3 hydrocortisone (ANUSOL-HC) 2.5 % rectal creamby RECTAL route twice daily.Disp: 28 gRfl: 0 multivitamin (MULTIPLE VITAMINS ORAL)Take by mouth.Disp: Rfl: alcohol swabs (ALCOHOL PREP PADS)Apply 1 application to affected area once daily.Disp: 200 EachRfl: 11 loratadine (CLARITIN) 10 mg tabletTake 10 mg by mouth once daily.Disp: Rfl: acetaminophen (TYLENOL) 325 mg tabletTake 500 mg by mouth. 2 TABLETS AT HSDisp: Rfl: Physical Exam: 01/24/23 0200 01/24/23 0300 01/24/23 0400 01/24/23 0500 BP: 99/54 131/64 106/54 155/79 Pulse: 70 70 67 79 Resp: Temp: 36.8 ?C (98.2 ?F) TempSrc: SpO2: 94% 95% 96% 98% Weight: Height: Intake/Output: Intake/Output Summary (Last 24 hours) at 01/24/2023 0653 Last data filed at 01/23/2023 1810 Gross per 24 hour Intake 920 ml Output 2050 ml Net -1130 ml General: Awake and alert, in no distress, cooperative Neck: Supple without JVD or Lymphadenopathy Cardiac: RRR, S1S2 with no MGR Lungs: Clear to auscultation bilaterally Abdomen: Soft non-tender, non-distended, normal bowel sounds Extremities: Edema (+) Neuro: No focal neurologic deficit, moves all 4 extremities Lab Data and Diagnostic Imaging: Recent Labs 01/24/23 0410 01/23/23 0135 01/22/23 0324 WBC 11.68* < > 11.10* RBC 4.04 < > 3.93 HB 11.3* < > 11.0* HCT 34.3* < > 33.4* MCV 84.9 < > 85.0 MCH 28.0 < > 28.0 MCHC 32.9 < > 32.9 RDWCV 13.4 < > 13.6 PLT 290 < > 274 MPV 10.7 < > 11.3 GLUC 239* < > 356* BUN 32* < > 28* CREAT 1.05* < > 1.03* NA 136 < > 137 K 4.7 < > 4.7 CHLOR 102 < > 104 CO2 24 < > 22 TPROT -- -- 7.5 ALB -- -- 3.7* CA 9.3 < > 9.6 ALKPHOS -- -- 78 TBILI -- -- 0.4 AST -- -- 22 ALT -- -- 17 PTSEC 17.5* < > 19.6* INR 1.7* < > 2.0* MG 2.3 < > 1.8 < > = values in this interval not displayed. (more content not included)...[facility]11-19-2023 NoteHNO ID: [id number] Author: Adarsh Steele MD Service: Electrophysiology Author Type: Physician Type: Progress Notes Filed: 01/23/2023 11:38 AM Note Text: 72-year-old female with recent episode of high-grade AV block associated with syncope, plan for dual-chamber pacemaker implantation on Tuesday. Due to [id number]-[id number] score of 7 warfarin dosing in low 2's.[facility]11-19-2023 NoteHNO ID: [id number] Author: Adarsh Steele MD Service: Cardiovascular Medicine Author Type: Physician Type: Progress Notes Filed: 01/25/2023 2:24 PM Note Text: CVICU PROGRESS NOTE PATIENT NAME: Laisha Walker ADMITTED FOR: Complete Heart Block LOS: 1 Subjective HPI Laisha Walker is a 72 year old female with PMH: Atrial fibrillation Carotid stenosis Self reported 90% stenosis of left w/ significant collaterals, 50% stenosis of right US 10/27/20 Left ICA occlusion Right ICA 20-39% stenosis CVA DVT Warfarin 5 mg daily HTN T2DM (HBA1c 7.7 6 months ago) CKD 3a Renal carcinoma, right Cirrhosis Orthostatic hypotension Depression GERD Goiter Planning for FNA Who presented to the [place] ED on January 21, 2023 after a syncopal event at home. Of note, patient was evaluated in the [place] ED on 01/14 and by her PCP today for this same issue. Patient reports she has been having dizziness for the past 5 months however the episode she had yesterday was a lot worse and when she checked her heart rate it was 35. She initially went to [place] ED on January 14 for chief complaint of frequent falls and syncope and was diagnosed with orthostatic hypotension. Her home sotalol and hydrochlorothiazide was held and patient was discharged. She again went to her PCP yesterday with similar complaints. Yesterday in the [place] ED, she was normotensive heart rate of 71 however telemetry was concerning for complete heart block and her heart rate fell to 30s. Her labs were unremarkable and EKG showed normal sinus rhythm with incomplete right bundle branch block however repeat EKG showed second-degree AV block with 4:1 conduction. Of note, patient reports a tick bite 2 weeks ago which was removed when she noticed it and she is unsure how long it was there. She does not complain of any fever or any rash, arthralgias or myalgias. Review of system was otherwise unremarkable. INTERVAL EVENTS No acute events overnight. Hemodynamically stable. Given Tylenol 1 mg q6h for right knee pain. Awaiting pacemaker placement tomorrow. Resting in bed, appears comfortable. Hgb 10.6 from 11 WBC 11.55 from 11.10 INR 1.7 Echo- - The left ventricle is normal in size. There is moderate septal asymmetric left ventricular hypertrophy. Left ventricular systolic function is hyperdynamic. EF = 75 ? 5% (3D) There is a 23 mm resting gradient in the left ventricular outflow tract, which increases to 54 mm with Valsalva. Global longitudinal strain -20.2% - The right ventricle is normal in size. Right ventricular systolic function is normal. Tricuspid annular displacement is 2.2 cm. Objective OBJECTIVE BP 106/60 Pulse 66 Temp 36.6 ?C (97.9 ?F) Resp 21 Ht 162.6 cm (5' 4) Wt 92.5 kg (203 lb 14.8 oz) SpO2 95% BMI 35.00 kg/m? Temp (24hrs), Av.4 ?C (97.6 ?F), Min:36.2 ?C (97.2 ?F), Max:36.6 ?C (97.9 ?F) Body mass index is 35 kg/m?., Hemoglobin A1C (%) Date Value 07/26/2022 7.7 04/30/2021 8.6 Intake/Output Summary (Last 24 hours) at 01/23/2023 0646 Last data filed at 01/23/2023 0500 Gross per 24 hour Intake 1382 ml Output 2350 ml Net -968 ml Physical Exam Constitutional: General: She is not in acute distress. Appearance: Normal appearance. She is normal weight. She is not ill-appearing, toxic-appearing or diaphoretic. HENT: Head: Normocephalic and atraumatic. Mouth/Throat: Mouth: Mucous membranes are moist. Cardiovascular: Rate and Rhythm: Normal rate and regular rhythm. Pulses: Normal pulses. Heart sounds: Normal heart sounds. No murmur heard. No friction rub. No gallop. Pulmonary: Effort: Pulmonary effort is normal. No respiratory distress. Breath sounds: Normal breath sounds. No wheezing, rhonchi or rales. Chest: Chest wall: No tenderness. Abdominal: General: Abdomen is flat. Bowel sounds are normal. Palpations: Abdomen is soft. Musculoskeletal: General: No swelling. Skin: General: Skin is warm and dry. Capillary Refill: Capillary refill takes less than 2 seconds. Coloration: Skin is not jaundiced. Neurological: Mental Status: She is alert and oriented to person, place, and time. Cranial Nerves: No cranial nerve deficit. Sensory: No sensory deficit. Motor: No weakness. Psychiatric: Mood and Affect: Mood normal. CURRENT MEDICATIONS: IV infusions: Scheduled medications:rosuvastatin, 20 mg, DAILY losartan, 12.5 mg, DAILY predniSONE, 40 mg, DAILY AT 12 PM insulin lispro, , w MEALS [START ON 01/24/2023] vancomycin, 0.015 g/kg/dose, Tube Mill Operator to OR PRN:acetaminophen, 1,000 mg, q 6 H PRN potassium chloride ER, 20-40 mEq, PRN Or potassium chloride, 20 mEq, PRN magnesium sulfate, 2 g, PRN phosphorus, 500 mg, PRN(NO DISPENSE) calcium gluconate, 2 g, PRN(NO DISPENSE) NaCl 0.9%, 20 mL, PRN sodium chloride 0.9 % (flush), 2-10 mL, DIRECTED PRN And perflutren lipid micros (more content not included)...[facility]11-18-2023 NoteHNO ID: [id number] Author: Jefferson Alston MD Service: Cardiovascular Medicine Author Type: Resident Type: Progress Notes Filed: 01/22/2023 12:22 PM Note Text: Attestation signed by Leonel Otero MD at 01/22/2023 1:28 PM [facility] Electrophysiology (EP) EP Attending [facility] STAFF PHYSICIAN NOTE OF PERSONAL INVOLVEMENT IN CARE See my documentation in the HANDP note that I signed today 01/22/2023. I have reviewed the documentation obtained and documented by the Resident and I have personally performed a face to face assessment of the patient and have personally participated in the clark components of the visit which includes medical decision making.. I have discussed the case and management of the patient's care. STAFF PHYSICIAN: Leonel Otero MD DATE OF SERVICE: January 22, 2023 TIME OF SERVICE: 1:27 PM CVICU PROGRESS NOTE PATIENT NAME: Laisha Walker ADMITTED FOR: Complete Heart Block LOS: 0 Subjective HPI Laisha Walker is a 72 year old female with PMH: Atrial fibrillation Carotid stenosis Self reported 90% stenosis of left w/ significant collaterals, 50% stenosis of right US 10/27/20 Left ICA occlusion Right ICA 20-39% stenosis CVA DVT Warfarin 5 mg daily HTN T2DM (HBA1c 7.7 6 months ago) CKD 3a Renal carcinoma, right Cirrhosis Orthostatic hypotension Depression GERD Goiter Planning for FNA Who presented to the [place] ED on January 21, 2023 after a syncopal event at home. Of note, patient was evaluated in the [place] ED on 01/14 and by her PCP today for this same issue. Patient reports she has been having dizziness for the past 5 months however the episode she had yesterday was a lot worse and when she checked her heart rate it was 35. She initially went to [place] ED on January 14 for chief complaint of frequent falls and syncope and was diagnosed with orthostatic hypotension. Her home sotalol and hydrochlorothiazide was held and patient was discharged. She again went to her PCP yesterday with similar complaints. Yesterday in the [place] ED, she was normotensive heart rate of 71 however telemetry was concerning for complete heart block and her heart rate fell to 30s. Her labs were unremarkable and EKG showed normal sinus rhythm with incomplete right bundle branch block however repeat EKG showed second-degree AV block with 4:1 conduction. Of note, patient reports a tick bite 2 weeks ago which was removed when she noticed it and she is unsure how long it was there. She does not complain of any fever or any rash, arthralgias or myalgias. Review of system was otherwise unremarkable. INTERVAL EVENTS Nothing overnight Objective OBJECTIVE BP 160/56 Pulse 96 Resp 22 Ht 162.6 cm (5' 4) Wt 92.5 kg (203 lb 14.8 oz) SpO2 99% BMI 35.00 kg/m? No data recorded. Body mass index is 35 kg/m?., Hemoglobin A1C (%) Date Value 07/26/2022 7.7 04/30/2021 8.6 Intake/Output Summary (Last 24 hours) at 01/22/2023 0718 Last data filed at 01/22/2023 0252 Gross per 24 hour Intake -- Output 300 ml Net -300 ml Physical Exam Constitutional: General: She is not in acute distress. Appearance: Normal appearance. She is normal weight. She is not ill-appearing, toxic-appearing or diaphoretic. HENT: Mouth/Throat: Mouth: Mucous membranes are moist. Eyes: General: No scleral icterus. Extraocular Movements: Extraocular movements intact. Conjunctiva/sclera: Conjunctivae normal. Pupils: Pupils are equal, round, and reactive to light. Cardiovascular: Rate and Rhythm: Normal rate and regular rhythm. Pulses: Normal pulses. Heart sounds: Normal heart sounds. No murmur heard. No friction rub. No gallop. Pulmonary: Effort: Pulmonary effort is normal. No respiratory distress. Breath sounds: Normal breath sounds. No wheezing, rhonchi or rales. Chest: Chest wall: No tenderness. Abdominal: General: Abdomen is flat. Bowel sounds are normal. Palpations: Abdomen is soft. Musculoskeletal: General: No swelling or tenderness. Cervical back: Neck supple. No tenderness. Lymphadenopathy: Cervical: No cervical adenopathy. Skin: General: Skin is warm and dry. Capillary Refill: Capillary refill takes less than 2 seconds. Coloration: Skin is not jaundiced. Neurological: General: No focal deficit present. Mental Status: She is alert and oriented to person, place, and time. Mental status is at baseline. Cranial Nerves: No cranial nerve deficit. Sensory: No sensory deficit. Motor: No weakness. Psychiatric: Mood and Affect: Mood normal. CURRENT MEDICATIONS: IV infusions: Scheduled medications:WARFARIN (COUMADIN) DOSING PER PHARMACY, 1 Each, DAILY - WARFARIN glipiZIDE, 5 mg, BEFORE BREAKFAST DAILY rosuvastat (more content not included)...[facility]11-17-2023 History of Present illness Narrative* Flako Tracy MD - 01/21/2023 10:00 AM EST Transitional Care Management TCM Eligibility Documentation The following information was gathered during the initial Patient Outreach Encounter. Date of Outreach: 01/17/2023 Outreach Attempt 1: Contact Made Date of Discharge 01/15/2023 Some recent data might be hidden Provider Documentation Laisha Walker is a 72 year old female here today for a follow up from recent hospitalization. I have reviewed the patient's hospital course including discharge summary, discharge medications , and follow up needs with the patient and any family members present at today's visit. HPI 7 day TCM She has an advanced directive. HM: Depression screening: Admits that she has been weepy and had decreased interest in most things the past month. Has used antidepressants in the past and didn't tolerate them well, does not want denisse dependant on these. Used Prozac in past but it caused decreased appetite and weight loss. She feels she can control this. Back: chronic; to the right hip, goes into the back a little. She had XR done. Pain does not go down into the leg but it does go around to the right side groin. Uses a cane and walker. Pt stated she has XR done Tuesday when she was at the [facility]. Was notified the following day that her XR showed DDD in spine and hip, sacral iliac joint arthritis. She has been told to go to PT but pt doesn'tthink she can do PT, states she can do things at home, goes up and down stairs. She states she doesn't have the funds to pay for her visits each time. Hospital wanted to send her to [facility] for rehab but pt refused, states that her depends on her and she doesn't want to go to a Residential. Pt went to [facility] ER 01/14/23 for frequent falls which was due to the low BP. She would feel like whenshe stood up she would feel her balance was off and like she was going to pass out. Was discharged home 01/15/23. Was getting Orthostatic BP several times while admitted. Denies any falls since beinghome, has been using her cane or walker. Pt states that this past week has not been good, HR and BP have been logged, checking 1-2 x a day. Blood pressure readings since 01/16 have been 138/70, 179/78, 160/72, 155/80, 142/75, 147/76, and today 158/85 with HR running 162-72, been mostly running 129 to 111 at rest or exertion. Heart rate has not been under 100. She states she has intermittent lightheadedness. She has had 5 falls in the last 2 weeks which was why she was admitted. She feels like s he has little energy and extremely tired, shaky. Denies feeling weak. The Sodalol was d/c due to itcausing pt to have low BP and low HR with dizziness. She has been holding the Metoprolol. The only BP medication she has been taking since discharge is Losartan 25 mg, half pill daily. Her Crestor was increased from 10 mg daily to 20 mg daily. Pt is suppose to see [facility] on 02/19/23 and is suppose to be mailed a heart monitor by Cardio. She did call in 01/19/23 with c/o palpitations,states while having testing done while admitted they told her she was in A-fib. Is taking Coumadin. Denies any chest pains or SOB. She had EKG completed at [facility] on Tuesday01/17/23. Has a hard time saying words that she thinks of and drooling at times, has been an issue for some time now but seems worse since this episode. Below copied from [facility]: Chief Complaint: Dizziness Informant: patient Narrative Narrative: Patient is 72-year-old female with history of proximal atrial fibrillation (on Coumadin and sotalol), type 2 diabetes mellitus, GERD and hypertension presenting from the [facility] after a fall/syncopal episode. Apparently states she was visiting her sister at the [facility]. Patient lives at home with [facility]. She was moving a chair when she somehow fell. She is not sure if she passed out or not. She notes she did hit the right side of her head/face. Patient states she had multiple falls over the past week. Week ago she had a fall and hit her head in the back. She did go to the ER to have this evaluated. Review shows that patient was seen on 01/01 for a fall after losing her balance. CT of thebrain at that time did not show any acute process. Patient notes that she has been having issues ofdizziness.Notes that she is having ongoing issues with her balance and is supposed to use either a cane or a walker. She does not use any assistive device when she fell today. She is concerned that some of her symptoms might be a side effect of sotalol. She notes her PCP is currently managing of her cardiac issues because her most recent secretarial stenographer within the clinic moved and she has not followed up with anyone since. Fever or chills. She is little nauseous today. She states while she was on her way to the [facility] today she suddenly felt a pain in her left chest which she gets sometimes and attributes to gas. She then felt a weird sensation in her head like she might pass out but did not. She denies any new swelling of her legs, fever, chills, urinary symptoms or other GI symptoms. No recent illnesses. [facility] Medical Records Department [address] [place] [address] Discharge Summary 01/15/23 1043 MR#: [id number] Acct: [id number] Name: LAISHA WALKER Rep #: [id number] : 1950 72 From: Maykel Sloan MD PCP: Dr. Flako Tracy MD Status: ADM AVERY Location: [place] [address] Providers Date of Admission: 01/14/23 Date of Discharge: 01/15/23 Primary Care Physician: Dr. Flako Tracy MD Consultations 01/14/23 23:54 Consult: Cardiology Routine Consulting Provider: Low Patino Reason for Consult: Adverse drug reaction to sotalol with orthostatic hypotension frequent fall EMERGENT Consult: No MD Notified: Yes Date Notified: 01/15/23 Time Notified: 06:41 Method of Notification: Text Reason For Visit: ORTHOSTATIC HYPOTENSION D/T ADVERSE DRUG REACTION Diagnosis Discharge Diagnosis (1) Orthostatic hypotension: Status: Acute Code(s): I95.1 - Orthostatic hypotension (2) Adverse drug reaction: Status: Acute Code(s): T50.905A - Adverse effect of unspecified drugs, medicaments and biological substances, initial encounter Qualifiers: Encounter type: initial encounter Qualified Code(s): T50.905A - Adverse effect of unspecified drugs, medicaments and biological substances, initial encounter Plan 1. Orthostatic hypotension with frequent falls - Admit to CDU under observation status. Given normal saline IV fluids and continue supportive care. PT/OT and case management consult without appreciated in advance. 01/15: Patient was well resuscitated with IV fluid. Repeat orthostatic vitals were negative. Last few blood pressure 137/68, 132/57. Patient was evaluated by secretarial stenographer. 2D echo was done. 2D echo shows EF 65%, no RWMA. No Doppler evidence for ASD. Moderate to severe mitral annular calcification but no significant valvular stenosis or regurgitation. Social Welfare Administrator recommended to discontinue sotalol and HCTZ. Losartan 12.5 mg daily and metoprolol succinate 12.5 mg daily started with holding parameters. Patient was educated to hold losartan and metoprolol medications as per holding parameter andsit for half an hour after taking medications and avoid sudden change in position/posture. Follow-up with Dr. Patino in clinic. 2. Adverse drug reaction to sotalol use to treat paroxysmal atrial fibrillation likely causing #1 -patient on warfarin INR therapeutic. Sotalol discontinued. HCTZ discontinued as patient was dehydrated. 3. History of carotid stenosis with previous CVA: Fasting profile shows triglyceride 278, VLDL 56. TSH normal. Patient on rosuvastatin 10 mg daily, dose increased to 20 mg daily. Advised carotid Doppler as an outpatient. 4. Essential hypertension - Hold antihypertensives until orthostatic hypotension is resolved. 5. Hyperlipidemia - Resume statin and check lipid profile. 6. Diabetes mellitus type 2; of unknown control - ADA diet. Fingerstick blood sugars before every meal and at bedtime plus sliding scale insulin. 7. Obesity with a BMI of 34.1 this admission - Weight loss will be recommended. 8. DVT prophylaxis - Patient is already on Coumadin, continued at this time with a therapeutic INR of 2.2 present on admission. INR therapeutic. Discharge medication reconciliation done. Discharge follow-up instructions completed. Discharge process discussed with the patient and all questions were answered to patient's satisfaction. Follow with PCP in 1 to 2 weeks PHYSICAL EXAMINATION BP 144/78 Pulse 115 Resp 16 Wt 89.1 kg (196 lb 8 oz) SpO2 96% BMI 33.73 kg/m GENERAL: well appearing, alert, in no acute distress, ambulates with cane, and ambulates with walker HEART: regular rate and rhythm. No murmur, rubs or gallops. LUNGS: clear to auscultation, no wheezing, rhonchi, or crackles Back: tender right SI area and upper buttocks ASSESSMENT/PLAN: 1. Hospital discharge follow-up - ICD9: V67.59, ICD10: Z09 (primary diagnosis) Continue with Losartan 25 mg half pill daily Stop Metoprolol and Sodalol Recommend continue with Cardio Continue to monitor HR and BP at home. 2. Orthostatic hypotension - ICD9: 458.0, ICD10: I95.1 Continue with Losartan 25 mg half pill daily Stop Metoprolol and Sodalol Recommend continue with Cardio Continue to monitor HR and BP at home. 3. Acute right-sided low back pain without sciatica - ICD9: 724.2, ICD10: M54.50 Start Prednisone 20 mg, 2 pills once daily for 5 days Follow up in Dec as scheduled with Georgie Stallworth CNP I agree with the Chief Complaint, ROS, and Past Histories independently gathered by the clinical user support analyst and the remaining scribed note accurately describes my personal service to the patient. Flako Tracy MD The documentation for this note was completed by Cehryl Harrison Ma acting as scribe for Flako Tracy MD. January 21, 2023 10:01 AM. Cheryl Harrison Ma documented in this encounterSt. Rita'S Hospital11-15-2023 Miscellaneous Notes* Telephone Encounter - Chasity Polk RN - 01/19/2023 1:50 PM EST Triage Protocol Recommended: ER. Informed patient that Dr. Tracy is OOO today and OC provider is available. Pt verbalizes understanding to go to ER. Pt states she will call [facility] regarding sx'sand obtain recommendation from them as well. Reason for Disposition Dizziness, lightheadedness, or weakness Answer Assessment - Initial Assessment Questions Patient calling and asking for advise. Reports she was recently discharged from [facility] due to falls and dizziness. Cardiac testing completed. Reports she was informed that she was in A-Fib. Pt states she stayed overnight at [facility] and testing completed. Medications were adjusted and patient has heart monitor ordered and will be delivered to her home. Home SpO2 93-94% and after deep breathing, goes to97%. Patient calling to state her heart rate today has varied from 111-122 at rest and with activity. Reports she can feel palpitations at times. -mild dizziness today, reports it has improved since when she was in hospital -denies chest pain -denies SOB -denies weakness or sweating -no confusion noted on phone -no feeling of passing out Pt states she saw [facility] this past Tuesday. EKG was completed and she states she was not told the final result and assumes it was okay. Protocols used: Heart Rate and Heartbeat [id number] documented in this encounterSt. Rita'S Hospital11-13-2023 Nurse Note* Sharon Gibson RN - 01/17/2023 2:54 PM EST REVIEW OF SYSTEMS: General: The patient NOTES fatigue, denies weight loss, denies weight gain, denies feeling hot, andNOTES feelings of cold. Eyes: The patient denies glaucoma, denies eye injury/surgery, wears glasses or contacts. Ear/Nose/Throat: The patient NOTES allergies, denies hayfever, denies ear infections, and denies bloody noses. Cardiovascular: The patient NOTES chest pain, denies heart disease, NOTES high blood pressure,denies cardiac stent, denies prior heart attack, NOTES irregular heart beat, NOTES high cholesterol, denies poor circulation, denies heart failure, other cardiac issues, NOTES claudication, denies cold feet, denies peripheral arterial stent. Respiratory: The patient denies tuberculosis, denies pneumonia, denies frequent cough, denies pulmonary embolism, denies shortness of breath, and denies coughing up blood. Gastrointestinal: The patient NOTES difficulty swallowing, NOTES acid reflux, denies ulcers, deniesvomiting, denies jaundice/hepatitis, NOTES gallbladder problems, denies black or tarry stools, NOTES hemorrhoids, NOTES bleeding from rectum, NOTES diverticulitis, NOTES constipation, denies diarrhea, denies loss of stool control, and denies hernias. Kidney/Bladder: The patient denies kidney stones, denies urine infections, denies bloody urine, andNOTES partial right nephrectomy. Skin: The patient denies a history of skin cancer, denies bleeding/changing moles, and denies a history of skin rash. Neurologic: The patient denies a history of epilepsy/convulsions, denies headaches, denies head/spinal injuries, and NOTES stroke/TIA. Psychiatric: The patient denies psychiatric medications, denies depression, and denies voices, denies substance abuse. Endocrine: The patient NOTES thyroid disorders, NOTES diabetes, and denies hormonal problems. Hematologic: The patient NOTES a history of bruising, denies bleeding, and denies anemia, NOTES blood clots. Infections: The patient NOTES a history of measles and mumps, denies rheumatic fever, and denies sexually transmitted diseases. Musculoskeletal: The patient NOTES back pain/injury, NOTES back problems, denies sciatica, NOTES knee/foot trouble, NOTES arthritis, or denies gout. When was patient's last Mammogram screening? 12/30/2022 Last Colonoscopy: None Sharon Gibson RN documented in this encounterSt. Rita'S Hospital11-13-2023 History of Present illness Narrative* Pam Ocampo MD - 01/17/2023 2:49 PM EST Laisha Walker 1950 REFERRING PHYSICIAN: Georgie Stallworth APRN.C* CHIEF COMPLAINT: Consult (Abnormal thyroid ultrasound. ) HPI: The patient is a 72 year old female presents with abnormal thyroid ultrasound She states that she had previous thyroid biopsy years ago - does not recall which side. She notes no thyroid cancer in her family. She denies hoarseness. She notes occasional swallowing difficulties. She denies history of thyroiditis and is not taking any thyroid hormones. She denies globus symptoms. She denies exposure to unusual radiation. She is presently on coumadin for chronic atrial fibrillation. US thyroid 01/05/2023 - right lower 1.5 cm, left lower 1.6 cm - for which FNA is rec'd. She states that she is undergoing heart workup - wants to complete that before scheduling for thyroid biopsy PAST MEDICAL HISTORY Diagnosis Date Atrial fibrillation (HCC) SEES DR. BARRERA Carotid stenosis, asymptomatic CVA (cerebral vascular accident) (HCC) post op after 2017 bilateral knee replacements - per pt was told by neurology that it was a questionable stroke DVT (deep venous thrombosis) (HCC) post op Dysthymic disorder Depression (non-psychotic) Esophageal reflux Essential hypertension, benign Goiter, unspecified Goiter Liver cirrhosis (HCC) Macular degeneration (senile) of retina, unspecified Macular degeneration Other and unspecified hyperlipidemia Renal carcinoma, right (HCC) Type 2 diabetes mellitus (HCC) PAST SURGICAL HISTORY Procedure Laterality Date APPENDECTOMY 1962 RUPTURED APPENDIX ARTHRP KNE CONDYLE&PLATU MEDIAL&LAT COMPARTMENTS Bilateral 2017 CHOLECYSTECTOMY 1996 Cholecystectomy COLONOSCOPY [facility] EGD EUS 06/11/2020 benign leiomyoma GE junction, mild antral gastropathy, fatty pancreas, likely cirrhotic liver, prominent dilated portal vein NEPHRECTOMY PARTIAL Right 05/18/2019 robotic PAST SURGICAL HISTORY OF 07/15/1999 LEFT SHOULDER PAST SURGICAL HISTORY OF Left 2018 REPAIR OF LEFT KNEE FRACTURE TOTAL ABDOMINAL HYSTERECT W/WO RMVL TUBE OVARY 1985 Hysterectomy, JERRY Current Outpatient Medications Medication Sig losartan (COZAAR) 25 mg tablet Take 0.5 tablets by mouth every afternoon. benzonatate (TESSALON PERLE) 100 mg capsule Take 2 capsules by mouth three times daily as needed. promethazine (PHENERGAN) 12.5 mg tablet Take 1 tablet by mouth every 6 hours as needed. warfarin (COUMADIN) 5 mg tablet 2.5 mg //Tuesday, 5 mg all other days or as directed rosuvastatin (CRESTOR) 10 mg tablet Take 1 tablet by mouth daily at bedtime. glipiZIDE (GLUCOTROL) 5 mg tablet Take 1 tablets by mouth before breakfast and one tablet by mouth before dinner docusate sodium (STOOL SOFTENER ORAL) Take by mouth as needed. OTC blood sugar diagnostic (BLOOD GLUCOSE TEST) test strip Test blood sugar(s) 1` times daily. Dx: Type2 DM - Uncontrolled E11.65 Insulin: No Lancets lancets Test blood sugar(s) 1` times daily. Dx: Type 2 DM - Uncontrolled E11.65 Insulin: No hydrocortisone (ANUSOL-HC) 2.5 % rectal cream by RECTAL route twice daily. multivitamin (MULTIPLE VITAMINS ORAL) Take by mouth. alcohol swabs (ALCOHOL PREP PADS) Apply 1 application to affected area once daily. loratadine (CLARITIN) 10 mg tablet Take 10 mg by mouth once daily. acetaminophen (TYLENOL) 325 mg tablet Take 500 mg by mouth. 2 TABLETS AT HS losartan-hydroCHLOROthiazide (HYZAAR) 50-12.5 mg per tablet Take 0.5 tablets by mouth once daily. (Patient not taking: Reported on 01/17/2023) sotalol (BETAPACE) 120 mg tablet Take 1 tablet by mouth twice daily. (Patient not taking: Reported on 01/17/2023) No current facility-administered medications for this visit. ALLERGIES: Gabapentin, Accupril [Quinapril Hcl], Bextra [Valdecoxib], Celebrex [Celecoxib], Codeine, Entex La [Phenylephrine-Guaifenesin], Glucophage [Metformin Hcl], Lipitor [Atorvastatin Calcium], Lodine [Etodolac], Naprosyn [Naproxen], Nsaids (Non-Steroidal Anti-Inflammatory Drug), Pravachol [Pra vastatin Sodium], Sulfa (Sulfonamide Antibiotics), Ultracet [Tramadol- Acetaminophen], Vicodin [Hydrocodone-Acetaminophen], Vioxx [Rofecoxib], and Zocor [Simvastatin] PERSONAL HISTORY: Social History Tobacco Use Smoking status: Never Smokeless tobacco: Never Vaping Use Vaping Use: Never used Substance Use Topics Alcohol use: Yes Comment: very seldom Drug use: No FAMILY HISTORY Problem Relation Age of Onset Heart Father [place] Hypertension Father Heart disease Father Arthritis Mother Hypertension Mother Dementia Mother other (DEPRESSION) Sister Diabetes Brother Heart Attack Brother Heart disease Brother other (DEPRESSION) Brother Hypertension Brother Stroke Sister Cancer No Family History none The review of systems data was entered by the nurse and reviewed by me Nursing Notes: Sharon Gibson RN 01/17/2023 2:56 PM Signed REVIEW OF SYSTEMS: General: The patient NOTES fatigue, denies weight loss, denies weight gain, denies feeling hot, andNOTES feelings of cold. Eyes: The patient denies glaucoma, denies eye injury/surgery, wears glasses or contacts. Ear/Nose/Throat: The patient NOTES allergies, denies hayfever, denies ear infections, and denies bloody noses. Cardiovascular: The patient NOTES chest pain, denies heart disease, NOTES high blood pressure,denies cardiac stent, denies prior heart attack, NOTES irregular heart beat, NOTES high cholesterol, denies poor circulation, denies heart failure, other cardiac issues, NOTES claudication, denies cold feet, denies peripheral arterial stent. Respiratory: The patient denies tuberculosis, denies pneumonia, denies frequent cough, denies pulmonary embolism, denies shortness of breath, and denies coughing up blood. Gastrointestinal: The patient NOTES difficulty swallowing, NOTES acid reflux, denies ulcers, deniesvomiting, denies jaundice/hepatitis, NOTES gallbladder problems, denies black or tarry stools, NOTES hemorrhoids, NOTES bleeding from rectum, NOTES diverticulitis, NOTES constipation, denies diarrhea, denies loss of stool control, and denies hernias. Kidney/Bladder: The patient denies kidney stones, denies urine infections, denies bloody urine, andNOTES partial right nephrectomy. Skin: The patient denies a history of skin cancer, denies bleeding/changing moles, and denies a history of skin rash. Neurologic: The patient denies a history of epilepsy/convulsions, denies headaches, denies head/spinal injuries, and NOTES stroke/TIA. Psychiatric: The patient denies psychiatric medications, denies depression, and denies voices, denies substance abuse. Endocrine: The patient NOTES thyroid disorders, NOTES diabetes, and denies hormonal problems. Hematologic: The patient NOTES a history of bruising, denies bleeding, and denies anemia, NOTES blood clots. Infections: The patient NOTES a history of measles and mumps, denies rheumatic fever, and denies sexually transmitted diseases. Musculoskeletal: The patient NOTES back pain/injury, NOTES back problems, denies sciatica, NOTES knee/foot trouble, NOTES arthritis, or denies gout. When was patient's last Mammogram screening? 12/30/2022 Last Colonoscopy: None Sharon Gibson RN PHYSICAL EXAMINATION: General: The patient is 72 year old female, well nourished, well hydrated in no acute distress. Thepatient is oriented to time, place, and person. VITALS: Blood pressure 128/72, pulse 97, temperature 36.6 C (97.8 F), height 162.6 cm (5' 4), weight 90.9 kg (200 lb 6.4 oz), SpO2 98 %. Body mass index is 34.4 kg/m . Head: Normal cephalic, atraumatic Eyes: pupils are equally round, sclera are clear/anicteric, wearing glasses Neck is supple with no tracheal deviation Cardiac: normal heart sounds, irregular Respiratory: normal breath sounds, normal respiratory excursion and pattern. Abdominal exam: benign Extremities: no clubbing, cyanosis or edema. Neuro: non focal Psych: normal mood Assessment IMPRESSION: abnormal ultrasound of thyroid PLAN: I have discussed the above with the patient. I have offered US guided FNA of thyroid nodules. I have explained the procedure to the patient. To be done in the office using local anesthesia. [place] have to be off coumadin for three days prior to procedure I have counseled the patient as to the risks of the procedure, including but not limited to: infection, bleeding, injury to any blood vessels/nerves, scar tissue, wound infections, complications of anesthesia, etc. - the patient understands. The patient wishes to proceed. She states that she is undergoing heart workup - wants to complete that before scheduling for thyroid biopsy I have answered all questions to the patient s satisfaction and the patient has no further questions. I have confirmed and edited as necessary, the PFSH and ROS obtained by others. Consultation requested by Georgie Stallworth for an opinion regarding patient's abnormal ultrasound of thyroid. My final recommendations will be communicated back to the requesting physician by way of shared Medical record or letter to requesting physician via US mail. . Diagnoses: (R93.89) Abnormal ultrasound of thyroid gland (primary encounter diagnosis) (E04.1) Thyroid nodule Return to Clinic: The patient is instructed to follow-up in the clinic when she is ready to schedule for procedure above. Medical Decision Making: Problems: Moderate: New problem with uncertain prognosis Data: Unique test result(s) reviewed: 1 Risk: Low: Low risk from testing/treatment Medical Decision Making Level: 3 - Low Pam Ocampo MD documented in this encounterSt. Rita'S [facility]11-13-2023 History of Present illness Narrative* Cheryl Harrison Ma - 01/17/2023 8:50 AM EST TRANSITION CARE MANAGEMENT (TCM) INITIAL CONTACT Divisional Merchandising Manager Outreach Provider Action/FYI: Started on Toprol xl 25 mg-take 12.5 mg daily if Heart rate less than 60 or Systolic BP less than 100 (pt states she was not given script for Toprol-said she reacted to it possibly) Losartan 25 mg- take 12.5 mg daily Crestor increased from 10 mg daily to 20 mg daily Stopped: Sotalol 80 mg (120 mg BID) (pt states she thinks she should continue taking this at least once daily) Losartan-hctz 50-12.5 mg daily Pt advised to follow up with Cardio in [address] Tracy Pt states that she was told by [facility] provider to go in and get an EKG as her heart rate was at 70 andthen went up to 120 with BP running 146/72. Pt states she was at rest but an anxious rest. She wants to know if she should continue taking the Sotalol once daily since she has been on this for a long time taking it at BID. Advised to discuss with [facility] when she goes in to get EKG. Pt is scheduled fo r follow up onn 01/21/23. Initial contact with patient post discharge, spoke to pt on 01/17/23. Patient identified by name and . TRANSITION CARE MANAGEMENT INITIAL OUTREACH DOCUMENTATION: Date of Outreach: 01/17/2023 Outreach Attempt 1: Contact Made Date of Discharge 01/15/2023 Some recent data might be hidden SUMMARY: -Pt discharged from [facility] on 01/15/23. -Admitted for: 1) Orthostatic Hypotension 2) adverse drug reaction Do you have a hospital follow up appointment with your PCP? Appointment on 01/21/23 with PCP. Yes. Remind patient of appointment date, time, and location. If not within 14 calendar days of discharge - please reschedule accordingly. Below copied from [facility] [employer]: Chief Complaint: Dizziness Informant: patient Narrative Narrative: Patient is 72-year-old female with history of proximal atrial fibrillation (on Coumadin and sotalol), type 2 diabetes mellitus, GERD and hypertension presenting from the [place] after a fall/syncopal episode. Apparently states she was visiting her sister at the [place]. Patient lives at home with [facility]. She was moving a chair when she somehow fell. She is not sure if she passed out or not. She notes she did hit the right side of her head/face. Patient states she had multiple falls over the past week. Week ago she had a fall and hit her head in the back. She did go to the ER to have this evaluated. Review shows that patient was seen on 01/01 for a fall after losing her balance. CT of thebrain at that time did not show any acute process. Patient notes that she has been having issues ofdizziness.Notes that she is having ongoing issues with her balance and is supposed to use either a cane or a walker. She does not use any assistive device when she fell today. She is concerned that some of her symptoms might be a side effect of sotalol. She notes her PCP is currently managing of her cardiac issues because her most recent secretarial stenographer within the clinic moved and she has not followed up with anyone since. Fever or chills. She is little nauseous today. She states while she was [place] way [place] she suddenly felt a pain in her left chest which she gets sometimes and attributes to gas. She then felt a weird sensation in her head like she might pass out but did not. She denies any new swelling of her legs, fever, chills, urinary symptoms or other GI symptoms. No recent illnesses. [facility] Medical Records Department [address] [place] [address] Discharge Summary 01/15/23 1043 MR#: [id number] Acct: [id number] Name: LAISHA WALKER Rep #: [id number] : 1950 72 From: Maykel Sloan MD PCP: Dr. Flako Tracy MD Status: ADM AVERY Location: [place] [address] Providers Date of Admission: 01/14/23 Date of Discharge: 01/15/23 Primary Care Physician: Dr. Flako Tracy MD Consultations 01/14/23 23:54 Consult: Cardiology Routine Consulting Provider: Low Patino Reason for Consult: Adverse drug reaction to sotalol with orthostatic hypotension frequent fall EMERGENT Consult: No MD Notified: Yes Date Notified: 01/15/23 Time Notified: 06:41 Method of Notification: Text Reason For Visit: ORTHOSTATIC HYPOTENSION D/T ADVERSE DRUG REACTION Diagnosis Discharge Diagnosis (1) Orthostatic hypotension: Status: Acute Code(s): I95.1 - Orthostatic hypotension (2) Adverse drug reaction: Status: Acute Code(s): T50.905A - Adverse effect of unspecified drugs, medicaments and biological substances, initial encounter Qualifiers: Encounter type: initial encounter Qualified Code(s): T50.905A - Adverse effect of unspecified drugs, medicaments and biological substances, initial encounter Plan 1. Orthostatic hypotension with frequent falls - Admit to CDU under observation status. Given normal saline IV fluids and continue supportive care. PT/OT and case management consult without appreciated in advance. 01/15: Patient was well resuscitated with IV fluid. Repeat orthostatic vitals were negative. Last few blood pressure 137/68, 132/57. Patient was evaluated by secretarial stenographer. 2D echo was done. 2D echo shows EF 65%, no RWMA. No Doppler evidence for ASD. Moderate to severe mitral annular calcification but no significant valvular stenosis or regurgitation. Social Welfare Administrator recommended to discontinue sotalol and HCTZ. Losartan 12.5 mg daily and metoprolol succinate 12.5 mg daily started with holding parameters. Patient was educated to hold losartan and metoprolol medications as per holding parameter andsit for half an hour after taking medications and avoid sudden change in position/posture. Follow-up with Dr. Patino in clinic. 2. Adverse drug reaction to sotalol use to treat paroxysmal atrial fibrillation likely causing #1 -patient on warfarin INR therapeutic. Sotalol discontinued. HCTZ discontinued as patient was dehydrated. 3. History of carotid stenosis with previous CVA: Fasting profile shows triglyceride 278, VLDL 56. TSH normal. Patient on rosuvastatin 10 mg daily, dose increased to 20 mg daily. Advised carotid Doppler as an outpatient. 4. Essential hypertension - Hold antihypertensives until orthostatic hypotension is resolved. 5. Hyperlipidemia - Resume statin and check lipid profile. 6. Diabetes mellitus type 2; of unknown control - ADA diet. Fingerstick blood sugars before every meal and at bedtime plus sliding scale insulin. 7. Obesity with a BMI of 34.1 this admission - Weight loss will be recommended. 8. DVT prophylaxis - Patient is already on Coumadin, continued at this time with a therapeutic INR of 2.2 present on admission. INR therapeutic. Discharge medication reconciliation done. Discharge follow-up instructions completed. Discharge process discussed with the patient and all questions were answered to patient's satisfaction. Follow with PCP in 1 to 2 weeks MEDICATIONS: Many patients have questions or concerns about their medications once they are home. Were you prescribed any new medications? If yes, what are those medications? Toprol xl 25 mg-take 12.5 mg daily if Heart rate less than 60 or Systolic BP less than 100 Losartan 25 mg- take 12.5 mg daily Crestor increased from 10 mg daily to 20 mg daily Were you told to hold any medications? No Were any of your medications discontinued? Yes Sotalol 80 mg (120 mg BID) Losartan-hctz 50-12.5 mg daily Do you have any questions about getting or taking your medications? Yes, Script - needs a refill or did not get a prescription written, request refill and forward to LIP. (See above) Your discharge instructions/After visit Summary (AVS) are important in guiding you through the recovery process. Is there anything I might help you understand? No Do you have all the necessary equipment and supplies at home? Yes Medical records from recent hospitalization: Placed for provider to review documented in this encounterSt. Rita'S Hospital11-11-2023 Consult note Author Mark Ryan [facility] January 15, 2023 12:35pm Note Date/Time January 15, 2023 12:29pm [facility] Medical Records Department [address] [place] [address] Consultation - Cardiology 01/15/23 1224 MR#: [id number] Acct: [id number] Name: LAISHA WALKER Rep #:[id number] : 1950 72 From: Mark reyes MD PCP: Dr. Flako Tracy MD Status:AD Vickie VARELA Location: [place] [address] Assessment & Plan Assessment/Plan (1) Orthostatic hypotension: PLAN: Agree with holding hydrochlorothiazide and sotalol. Advised patient to stay well-hydrated. Okay to discharge patient home on losartan 12.5 mg p.o. daily and metoprolol succinate 25 mg daily. Advised patient that if she has recurrence of orthostatic hypotension then she can hold the losartan. She does have a blood pressure cuff at home and will monitor her blood pressure at home as well. She can follow-up with cardiology as an outpatient. (2) PAF (paroxysmal atrial fibrillation): HPI Consult Data Date of Consult: 01/15/23 HPI Narrative Reason for Consultation: Dizziness HPI Narrative: LAISHA WALKER, is a 72 F who presents with dizziness. She was found to have orthostatic hypotension. She was given IV fluids and sotalol and hydrochlorothiazide were held. Patient's symptoms have improved overnight. Patient states that she has had dizziness for a very long time and over the last2 weeks it has been particularly worse. Review of systems: All systems reviewed. All else is negative except that in HPI PFSH Medical History Arthritis Asthma Chronic anemia CVA (cerebral vascular accident) Diabetes Hemorrhoids HLD (hyperlipidemia) Hypertension Obesity PAF (paroxysmal atrial fibrillation) Rectal pain VTE (venous thromboembolism) Home Medications acetaminophen 325 mg tablet 1,000 mg PO QHS 06/26/16 [History Last Taken 06/29/16 1000 mg] loratadine 10 mg tablet 10 mg PO QHS 30 days 07/23/16 [Rx Last Taken Unknown] losartan 25 mg tablet 12.5 mg PO DAILY 01/10/17 [History Last Taken Unknown] warfarin 2.5 mg tablet 5 mg PO SUMOWEFR 01/10/17 [History Last Taken Unknown] glipizide 5 mg tablet 5 mg PO BID 07/23/18 [History Last Taken Unknown] phenazopyridine 200 mg tablet 200 mg PO BID PRN PRN Pain #10 tabs 06/24/19 [Rx Last Taken Unknown] Diltiazem 2% / Lidocaine 5% ointment (compound) #1 ea 10/15/22 [Rx Last Taken Unknown] warfarin 5 mg tablet 2.5 mg PO TUTHSA 01/14/23 [History Last Taken Unknown] losartan 25 mg tablet 12.5 mg (1/2 x 25 mg) PO DAILY #30 tabs 01/15/23 [Rx Last Taken Unknown] metoprolol succinate 25 mg tablet,extended release 24 hr (Toprol XL) 12.5 mg (1/2 x 25 mg) PO DAILY 60 days #30 tabs 01/15/23 [Rx Last Taken Unknown] rosuvastatin 10 mg tablet 20 mg (2 x 10 mg) PO DAILY #30 tabs 01/15/23 [Rx Last Taken Unknown] Allergy/AdvReac Type Severity Reaction Status Date / Time Sulfa (Sulfonamide AdvReac Unknown Diarrhea Verified 01/14/23 15:41 Antibiotics) celecoxib [From Celebrex] AdvReac Nausea/Vom/ Verified 01/14/23 15:41 Diarrhea fluoxetine HCl [From Prozac] AdvReac Other Verified 01/14/23 15:41 isosorbide AdvReac Other Verified 01/14/23 15:41 metformin AdvReac Nausea/Vom/ Verified 01/14/23 15:41 Diarrhea Family History Mother CVA (cerebral vascular accident) Diabetes Heart disease Father CVA (cerebral vascular accident) Diabetes Heart disease Surgical History History of appendectomy History of cholecystectomy History of hysterectomy History of knee replacement History of shoulder surgery Social History household members: spouse Smoking Status: Never smoker alcohol intake: never substance use type: does not use Physical Exam Const alert and oriented x3 HEENT normocephalic Eyes no scleral icterus Resp normal respiratory effort Psych mental status grossly normal Risk Stratification Risk Stratification Applicable: No Charges/Coding Visit Charges Inpatient E&M: 51192 Init Hosp L2 Objective Data Vital Signs: Vital Signs Temp Pulse Resp BP Pulse Ox O2 Del Method 98.8 F 65 18 132/57 H 95 Room Air 01/15/23 09:12 01/15/23 10:42 01/15/23 09:12 01/15/23 10:42 01/15/23 09:12 01/15/23 09:12 Oxygen Delivery Method Room Air Weight: 198 lb 6.656 oz Body Mass Index (BMI) 34.0 Intake & Output: Intake and Output for Last 24 Hours 01/13/23 01/14/23 01/15/23 23:59 23:59 23:59 Intake Total 1120 / 1120 1253.75 / 1253.75 Balance 1120 / 1120 1253.75 / 1253.75 Lab / Micro Data 01/15/23 05:43 01/15/23 05:43 Labs: Laboratory Results - last 24 hr 01/14/23 15:50: WBC 8.6, RBC 4.45, Hgb 12.4, Hct 39.3, MCV 88.3, MCH 27.9, MCHC 31.6 L, RDW Std Deviation 45.2 H, RDW Coeff of Rukhsana 14.1, Plt Count 252, MPV 11.7, Immature Gran % (Auto) 0.200, Neut % (Auto) 60.2, Lymph % (Auto) 28.4, [place] % (Auto) 8.3, Eos % (Auto) 2.1, Baso % (Auto) 0.8, Absolute Neuts (auto) 5.2, Absolute Lymphs (auto) 2.43, Nucleated RBC % 0, PT 24.4 H, INR 2.2, Sodium 139, Potassium 4.2, Chloride 106, Carbon Dioxide 27.0, Anion Gap 6, BUN 29 H, Creatinine 1.17 H, Estim Creat Clear Calc 36.43, Est GFR (MDRD) Af Amer 58 L, Est GFR (MDRD) Non-Af 48 L, BUN/Creatinine Ratio 24.8 H, Glucose 188 H, Calcium 9.9, Troponin I High Sens 10 01/14/23 17:47: Troponin I High Sens 13 01/14/23 18:55: Urine Color Yellow, Urine Clarity Sl. Cloudy, Urine pH 6.5, Ur Specific Clyde 1.010, Urine Protein Negative, Urine Glucose (UA) 50 H, Urine Ketones Negative, Urine Occult Blood 10 H, Urine Nitrite Negative, Urine Bilirubin Negative, Urine Urobilinogen Normal, Ur Leukocyte Esterase 25 H, UrineRBC 0-5 SEEN, Urine WBC 0-5 SEEN, Ur Squamous Epith Cells 0-5 SEEN, Amorphous Sediment 1+ URATE, Urine Bacteria 0 SEEN, Urine Mucus 0 SEEN 01/15/23 05:35: PT 24.0 H, INR 2.1 01/15/23 05:43: WBC 7.6, RBC 3.77 L, Hgb 10.5 L, Hct 33.4 L, MCV 88.6, MCH 27.9,MCHC 31.4 L, RDW Std Deviation 46.4 H, RDW Coeff of Rukhsana 14.3, Plt Count 198, MPV11.7, Immature Gran % (Auto) 0.300, Neut % (Auto) 55.2, Lymph % (Auto) 33.5, [place] % (Auto) 8.4, Eos % (Auto) 1.7, Baso % (Auto) 0.9, Absolute Neuts (auto) 4.2, Absolute Lymphs (auto) 2.55, Nucleated RBC % 0, Sodium 141, Potassium 4.0, Chloride 113 H, Carbon Dioxide 23.0, Anion Gap 5, BUN 23 H, Creatinine 0.97, Estim Creat Clear Calc 43.94, Est GFR (MDRD) Af Amer 72, Est GFR (MDRD) Non-Af 60, BUN/Creatinine Ratio 23.8 H, Glucose 124 H, Calcium 9.0, Triglycerides 278 H, Cholesterol 155, LDL Cholesterol 52, VLDL Cholesterol 56 H, HDL Cholesterol 47, TSH 0.80 Rhythm Strip Rhythm Strip: Sinus Rhythm Rate: 73 Ectopy: None Cardiology Labs/Tests 01/14/23 15:50: WBC 8.6, RBC 4.45, Hgb 12.4, Hct 39.3, MCV 88.3, MCH 27.9, MCHC 31.6 L, Plt Count 252, MPV 11.7, Immature Gran % (Auto) 0.200, Neut % (Auto) 60.2, Lymph % (Auto) 28.4, [place] % (Auto) 8.3, Eos % (Auto) 2.1, Baso % (Auto) 0.8, Absolute Neuts (auto) 5.2, Nucleated RBC % 0, PT 24.4 H, INR 2.2, Sodium 139,Potassium 4.2, Chloride 106, Carbon Dioxide 27.0, Anion Gap 6, BUN 29 H, Creatinine 1.17 H, Est GFR (MDRD) Af Amer 58 L, Est GFR (MDRD) Non-Af 48 L, BUN/Creatinine Ratio 24.8 H, Glucose 188 H, Calcium 9.9 01/14/23 18:55: Urine Color Yellow, Urine Clarity Sl. Cloudy, Urine pH 6.5, Ur Specific Clyde 1.010, Urine Protein Negative, Urine Glucose (UA) 50 H, Urine Ketones Negative, Urine Occult Blood 10 H, Urine Nitrite Negative, Urine Bilirubin Negative, Urine Urobilinogen Normal, Ur Leukocyte Esterase 25 H, UrineRBC 0-5 SEEN, Urine WBC 0-5 SEEN 01/15/23 05:35: PT 24.0 H, INR 2.1 01/15/23 05:43: WBC 7.6, RBC 3.77 L, Hgb 10.5 L, Hct 33.4 L, MCV 88.6, MCH 27.9,MCHC 31.4 L, Plt Count 198, MPV 11.7, Immature Gran % (Auto) 0.300, Neut % (Auto) 55.2, Lymph % (Auto) 33.5, [place] % (Auto) 8.4, Eos % (Auto) 1.7, Baso % (Auto) 0.9, Absolute Neuts (auto) 4.2, Nucleated RBC % 0, Sodium 141, Potassium 4.0, Chloride 113 H, Carbon Dioxide 23.0, Anion Gap 5, BUN 23 H, Creatinine 0.97, Est GFR (MDRD) Af Amer 72, Est GFR (MDRD) Non-Af 60, BUN/Creatinine Ratio 23.8 H, Glucose 124 H, Calcium 9.0, Triglycerides 278 H, Cholesterol 155, LDL Cholesterol 52, VLDL Cholesterol 56 H, HDL Cholesterol 47 Rhythm: EKG: ECHO: Stress Test: Cardiac Cath: PCI: CT Surgery: Holter monitor: EPS: PPM: CXR: Chest CT Scan: Radiography Diagnostic Testing: Radiology Impression Brain CT 01/14/23 16:13 IMPRESSION: No acute intracranial findings. Electronically Signed: Randall Hazel MD at 17:06 EST , Cervical Spine CT 01/14/23 16:18 IMPRESSION: No acute fracture. Electronically Signed: Randall Hazel MD at 17:10 EST , Chest X-Ray 01/14/23 16:45 IMPRESSION: No radiographic evidence of acute cardiopulmonary disease. Electronically Signed: Randall Hazel MD at 17:11 EST , Echocardiogram 01/15/23 03:37 Interpretation Summary The estimated ejection fraction is 65 %. Unable to assess diastolic dysfunction. Ordering Physician: [place] Jesus Referring Physician: Flako Tracy Performed By: Cheli Canada, MICK, RVT 01/15/23 1235 <Electronically signed by Mark Ryan MD> Cosigner Signature (if applicable): CC: Dr. Low Patino MD; Dr. South Jesus DO; Dr. Flako Tracy MD~ Signed [facility] Work Phone: [phone]) 558-266711-11-2023 Discharge summary Author Maykel Luther [facility] January 15, 2023 12:34pm Note Date/Time January 15, 2023 12:31pm [facility] Medical Records Department [address] [place] [address] Discharge Summary 01/15/23 1043 MR#: [id number] Acct: [id number] Name: LAISHA WALKER Rep #:[id number] : 1950 72 From: Maykel Frankel PCP: Dr. Flako Tracy MD Status:KSENIA VARELA Location: [place] [address] Providers Date of Admission: 01/14/23 Date of Discharge: 01/15/23 Primary Care Physician: Dr. Flako Tracy MD Consultations 01/14/23 23:54 Consult: Cardiology Routine Consulting Provider: Low Patino Reason for Consult: Adverse drug reaction to sotalol with orthostatic hypotension frequent fall EMERGENT Consult: No MD Notified: Yes Date Notified: 01/15/23 Time Notified: 06:41 Method of Notification: Text Reason For Visit: ORTHOSTATIC HYPOTENSION D/T ADVERSE DRUG REACTION Diagnosis Discharge Diagnosis (1) Orthostatic hypotension: Status: Acute Code(s): I95.1 - Orthostatic hypotension (2) Adverse drug reaction: Status: Acute Code(s): T50.905A - Adverse effect of unspecified drugs, medicaments and biological substances, initial encounter Qualifiers: Encounter type: initial encounter Qualified Code(s): T50.905A - Adverseeffect of unspecified drugs, medicaments and biological substances, initial encounter Plan 1. Orthostatic hypotension with frequent falls - Admit to CDU under observationstatus. Given normal saline IV fluids and continue supportive care. PT/OT and case management consult without appreciated in advance. 01/15: Patient was well resuscitated with IV fluid. Repeat orthostatic vitals were negative. Last few blood pressure 137/68, 132/57. Patient was evaluated by secretarial stenographer. 2D echo was done. 2D echo shows EF 65%, no RWMA. No Doppler evidence for ASD. Moderate to severe mitral annular calcification but no significant valvular stenosis or regurgitation. Social Welfare Administrator recommended to discontinue sotalol and HCTZ. Losartan 12.5 mg daily and metoprolol succinate 12.5 mg daily started with holding parameters. Patient was educated to hold losartan and metoprolol medications as per holding parameter and sit for half anhour after taking medications and avoid sudden change in position/posture. Follow-up with Dr. Patino in clinic. 2. Adverse drug reaction to sotalol use to treat paroxysmal atrial fibrillationlikely causing #1 -patient on warfarin INR therapeutic. Sotalol discontinued. HCTZ discontinued as patient was dehydrated. 3. History of carotid stenosis with previous CVA: Fasting profile shows triglyceride 278, VLDL 56. TSH normal. Patient on rosuvastatin 10 mg daily, dose increased to 20 mg daily. Advised carotid Doppler as an outpatient. 4. Essential hypertension - Hold antihypertensives until orthostatic hypotension is resolved. 5. Hyperlipidemia - Resume statin and check lipid profile. 6. Diabetes mellitus type 2; of unknown control - ADA diet. Fingerstick blood sugars before every meal and at bedtime plus sliding scale insulin. 7. Obesity with a BMI of 34.1 this admission - Weight loss will be recommended. 8. DVT prophylaxis - Patient is already on Coumadin, continued at this time with a therapeutic INR of 2.2 present on admission. INR therapeutic. Discharge medication reconciliation done. Discharge follow-up instructions completed. Discharge process discussed with the patient and all questions wereanswered to patient's satisfaction. Follow with PCP in 1 to 2 weeks Total time spent, exact 35 minutes on discharge meds reconciliation, examination, coordination of care with nurses and ancillary staff, review of imaging and blood test and discussion with the patient on follow-up instructions. Medications at Discharge Home Medications acetaminophen 325 mg tablet 1,000 mg PO QHS 06/26/16 loratadine 10 mg tablet 10 mg PO QHS 30 days 07/23/16 losartan 25 mg tablet 12.5 mg PO DAILY 01/10/17 warfarin 2.5 mg tablet 5 mg PO SUMOWEFR 01/10/17 glipizide 5 mg tablet 5 mg PO BID 07/23/18 phenazopyridine 200 mg tablet 200 mg PO BID PRN PRN Pain #10 tabs 06/24/19 Diltiazem 2% / Lidocaine 5% ointment (compound) #1 ea 10/15/22 warfarin 5 mg tablet 2.5 mg PO TUTHSA 01/14/23 losartan 25 mg tablet 12.5 mg (1/2 x 25 mg) PO DAILY #30 tabs 01/15/23 metoprolol succinate 25 mg tablet,extended release 24 hr (Toprol XL) 12.5 mg (1/2 x 25 mg) PO DAILY 60 days #30 tabs 01/15/23 rosuvastatin 10 mg tablet 20 mg (2 x 10 mg) PO DAILY #30 tabs 01/15/23 Physical Exam Narrative The patient has a history of recurrent fall. He has degenerative arthritis of hips and knee joints. Had bilateral TKA. Patient is poor balance. PT and OT is done. Patient does not want to go to care home. Advised to follow with PCP and outpatient rehab. Physical exam General: Alert, Oriented x3, Cooperative HEENT: Atraumatic, PERRLA, EOMI, Normocephalic Oral: No Gingival or Mucosal Lesions/ Ulcerations Neck: Supple, No JVD, Negative Carotid Bruits Lungs: Air entry diminished in bilateral lung bases. No crepitation/rhonchi Cardiovascular: Regular rate, Regular Rhythm, Normal S1, Normal S2, No murmurs Abdomen: Bowel Sounds Present, Soft, Non Tender, Non-Distended : No renal angle tenderness. No suprapubic tenderness. Extremities: No edema, Capillary Refill Less than 3 Seconds Skin: No rashes, No breakdown Musculoskeletal: No Tenderness to Palpation of Joints or Extremities Neurological: Cranial nerves II-XII grossly intact, DTR 2+/4. No acute focal neurological deficit. Psych/Mental Status: Normal Affect, Appropriate. Weight / BMI Weight Weight: 198 lb 6.656 oz Body Mass Index (BMI) 34.0 ABG / Lab / Microbiology Data 01/15/23 05:43 01/15/23 05:43 Laboratory: Laboratory Results - last 24 hr 01/14/23 15:50: WBC 8.6, RBC 4.45, Hgb 12.4, Hct 39.3, MCV 88.3, MCH 27.9, MCHC 31.6 L, RDW Std Deviation 45.2 H, RDW Coeff of Rukhsana 14.1, Plt Count 252, MPV 11.7, Immature Gran % (Auto) 0.200, Neut % (Auto) 60.2, Lymph % (Auto) 28.4, [place] % (Auto) 8.3, Eos % (Auto) 2.1, Baso % (Auto) 0.8, Absolute Neuts (auto) 5.2, Absolute Lymphs (auto) 2.43, Nucleated RBC % 0, PT 24.4 H, INR 2.2, Sodium 139, Potassium 4.2, Chloride 106, Carbon Dioxide 27.0, Anion Gap 6, BUN 29 H, Creatinine 1.17 H, Estim Creat Clear Calc 36.43, Est GFR (MDRD) Af Amer 58 L, Est GFR (MDRD) Non-Af 48 L, BUN/Creatinine Ratio 24.8 H, Glucose 188 H, Calcium 9.9, Troponin I High Sens 10 01/14/23 17:47: Troponin I High Sens 13 01/14/23 18:55: Urine Color Yellow, Urine Clarity Sl. Cloudy, Urine pH 6.5, Ur Specific Clyde 1.010, Urine Protein Negative, Urine Glucose (UA) 50 H, Urine Ketones Negative, Urine Occult Blood 10 H, Urine Nitrite Negative, Urine Bilirubin Negative, Urine Urobilinogen Normal, Ur Leukocyte Esterase 25 H, UrineRBC 0-5 SEEN, Urine WBC 0-5 SEEN, Ur Squamous Epith Cells 0-5 SEEN, Amorphous Sediment 1+ URATE, Urine Bacteria 0 SEEN, Urine Mucus 0 SEEN 01/15/23 05:35: PT 24.0 H, INR 2.1 01/15/23 05:43: WBC 7.6, RBC 3.77 L, Hgb 10.5 L, Hct 33.4 L, MCV 88.6, MCH 27.9,MCHC 31.4 L, RDW Std Deviation 46.4 H, RDW Coeff of Rukhsana 14.3, Plt Count 198, MPV11.7, Immature Gran % (Auto) 0.300, Neut % (Auto) 55.2, Lymph % (Auto) 33.5, [place] % (Auto) 8.4, Eos % (Auto) 1.7, Baso % (Auto) 0.9, Absolute Neuts (auto) 4.2, Absolute Lymphs (auto) 2.55, Nucleated RBC % 0, Sodium 141, Potassium 4.0, Chloride 113 H, Carbon Dioxide 23.0, Anion Gap 5, BUN 23 H, Creatinine 0.97, Estim Creat Clear Calc 43.94, Est GFR (MDRD) Af Amer 72, Est GFR (MDRD) Non-Af 60, BUN/Creatinine Ratio 23.8 H, Glucose 124 H, Calcium 9.0, Triglycerides 278 H, Cholesterol 155, LDL Cholesterol 52, VLDL Cholesterol 56 H, HDL Cholesterol 47, TSH 0.80 Radiography Diagnostic Testing: Radiology Impression Brain CT 01/14/23 16:13 IMPRESSION: No acute intracranial findings. Electronically Signed: Randall Hazel MD at 17:06 EST , Cervical Spine CT 01/14/23 16:18 IMPRESSION: No acute fracture. Electronically Signed: Randall Hazel MD at 17:10 EST , Chest X-Ray 01/14/23 16:45 IMPRESSION: No radiographic evidence of acute cardiopulmonary disease. Electronically Signed: Randall Hazel MD at 17:11 EST , Meaningful Use Info Meaningful Use Diagnoses (Choose all that apply): None applicable Discharge Plan Admission Admit Date/Time: 01/14/23 23:47 Primary Reason for Your Visit: Fall/orthostatic hypotension. Attending Provider: Maykel Sloan Primary Care Provider: Flako Tracy Consulting Providers: Low Patino; South Jesus Discharge Orders/Prescriptions Prescriptions: New metoprolol succinate [Toprol XL] 25 mg tablet extended release 24 hr 12.5 mg PO DAILY 60 Days Qty: 30 1RF Rx Instructions: Hold for heart less than 60 or systolic blood pressure less than 100 mmHg. losartan 25 mg Tablet 12.5 mg PO DAILY Qty: 30 2RF Rx Instructions: Hold for SBP less than 130 mmHg Continued (DME) Diltiazem 2% / Lidocaine 5% ointment (compound) Ointment See Rx Instructions .ROUTE Qty: 1 0RF Rx Instructions: As directed acetaminophen 325 MG tablet 1,000 mg PO QHS Patient Comments: pain control loratadine 10 MG tablet 10 mg PO QHS 30 Days 0RF warfarin 2.5 MG tablet 5 mg PO SUMOWEFR losartan 25 MG tablet 12.5 mg PO DAILY glipizide 5 MG tablet 5 mg PO BID Patient Comments: TAKE 1 TABLET BY MOUTH TWICE DAILY Rx Instructions: 10 IN THE AM, 5 MG AT NIGHT phenazopyridine 200 MG tablet 200 mg PO BID PRN PRN (Reason: Pain) Qty: 10 0RF Hold Instructions: Pt has been DC'd warfarin 5 mg tablet 2.5 mg PO TUTHSA Changed rosuvastatin 10 mg tablet 20 mg PO DAILY Qty: 30 0RF Discontinued sotalol 80 MG tablet 120 mg PO BID 0RF losartan-hydrochlorothiazide 50-12.5 mg tablet 1 tab PO DAILY Referrals / Follow Up: Low Patino MD [Med Staff - Active Staff] - Within 1 Month Flako Tracy MD [Primary Care Provider] - Within 2 Weeks Disposition Disposition (needs filled in before D/C Order can be placed): Home, Self Care Charges/Coding Visit Charges Inpatient E&M: 69876 Disch Hosp >30min 01/15/23 1234 <Electronically signed by Mayekl Sloan MD> Cosigner Signature (if applicable): CC: Dr. Flako Tracy MD; Dr. Maykel Sloan MD~ Signed [facility] Work Phone: [phone]) 955-864511-11-2023 Discharge summary Author Maykel Sloan [facility] January 15, 2023 12:27pm Note Date/Time January 15, 2023 10:43am [facility] Medical Records Department [address] [place] [id number] Instructions for Home/Discharge Instructions 01/15/23 1043 MR#: [id number] Acct: [id number] Name: LAISHA WALKER Rep #:[id number] : 1950 72 From: Maykel Frankel PCP: Dr. Flako Tracy MD Status:AD M AVERY Discharge Instructions Diet Discharge Diet: No restrictions and 1800 Calorie Control Diet Activity Discharge Activity: Return to Normal Activity Weight Bearing Status: Weight bearing as tolerated Dressing / Incision Call your doctor if you observe: Fever of 101 or Higher, Coldness, Increased Pain, Numbness or Tingling, Change in Color, Inability to urinate, Inability to have a bowel movement, Using more than 1 pad per hour, Shortness of breath, Dizziness, Fainting spells, Swelling in the ankles, Chest pain, Prolonged hiccupping, Increased palpitations (irregular heartbeat) and Calf discomfort Follow Up Care When: IN 2 WEEKS Test Results: Test results from this visit will be discussed in further detail at your follow- up appointment, if applicable. Discharge Plan Admission Admit Date/Time: 01/14/23 23:47 Primary Reason for Your Visit: Fall/orthostatic hypotension. Attending Provider: Maykel Sloan Primary Care Provider: Flako Tracy Consulting Providers: Low Patino; South Jesus Discharge Orders/Prescriptions Prescriptions: New metoprolol succinate [Toprol XL] 25 mg tablet extended release 24 hr 12.5 mg PO DAILY 60 Days Qty: 30 1RF Rx Instructions: Hold for heart less than 60 or systolic blood pressure less than 100 mmHg. losartan 25 mg Tablet 12.5 mg PO DAILY Qty: 30 2RF Rx Instructions: Hold for SBP less than 130 mmHg Continued (DME) Diltiazem 2% / Lidocaine 5% ointment (compound) Ointment See Rx Instructions .ROUTE Qty: 1 0RF Rx Instructions: As directed acetaminophen 325 MG tablet 1,000 mg PO QHS Patient Comments: pain control loratadine 10 MG tablet 10 mg PO QHS 30 Days 0RF warfarin 2.5 MG tablet 5 mg PO SUMOWEFR losartan 25 MG tablet 12.5 mg PO DAILY glipizide 5 MG tablet 5 mg PO BID Patient Comments: TAKE 1 TABLET BY MOUTH TWICE DAILY Rx Instructions: 10 IN THE AM, 5 MG AT NIGHT phenazopyridine 200 MG tablet 200 mg PO BID PRN PRN (Reason: Pain) Qty: 10 0RF Hold Instructions: Pt has been DC'd warfarin 5 mg tablet 2.5 mg PO TUTHSA rosuvastatin 10 mg tablet 10 mg PO DAILY Discontinued sotalol 80 MG tablet 120 mg PO BID 0RF losartan-hydrochlorothiazide 50-12.5 mg tablet 1 tab PO DAILY Referrals / Follow Up: Low Patino MD [Med Staff - Active Staff] - Within 1 Month Flako Tracy MD [Primary Care Provider] - Within 2 Weeks Disposition Disposition (needs filled in before D/C Order can be placed): Home, Self Care 01/15/23 1227<Electronically signed by Maykel Sloan MD>Maykel Sloan MD CC: Dr. Low Patino MD; Dr. South Jesus DO; Dr. Flako Tracy MD ~ Signed [facility] Work Phone: 1(687) 454-441211-11-2023 Hospital Discharge instructions Additional Instructions Date of Discharge: 01/15/23[facility] Work Phone: [phone]) 522-737611-11-2023 History and physical note Author [place] [facility] January 15, 2023 6:33am Note Date/Time January 14, 2023 11:38pm [facility] Medical Records Department [address] [place] [address] H&P Exam - Hospitalist 01/14/232326 MR#: [id number] Acct: [id number] Name: LAISHA WALKER Rep #:[id number] : 1950 72 From: [place] DO PCP: Dr. Flako Tracy MD Status:KSENIA VARELA Location: [place] [address] HPI - General General Date of Admission: 01/14/23 Date of Service: 01/14/23 Chief Complaint: 5 falls in 7 days HPI Narrative LAISHA WALKER, is a 72 F with a past medical history of hypertension, hyperlipidemia, diabetes mellitus type 2; of unknown control, obesity with BMI of 34.7 this admission, chronic anemia, asthma, striae of carotid artery stenosis with history of CVA, GERD and history of proximal atrial fibrillation; on Coumadin and sotalol (with no secretarial stenographer for the past year) who presents [facility] ER complaining of 5 falls in 7 days. Mrs. Walker reports her symptoms began in late December of this year when she was evaluated for a fall after losing her balance with a CT scan of the brain at that time showing no acute pathologic process. Since that time she has had problems with with intermittent dizziness and poor balance and is supposed to use a cane or a walker to ambulate. She now falls almost daily for the past week and earlier on01/14/2023 she was moving a chair at home where she lives with her and somehow fell but she is not sure if she lost consciousness but she does admit tohitting the right side of her head and face. She is concerned that her symptomsmay be due to side effects from her sotalol because her secretarial stenographer left this area approximately 1 year ago and moved to his clinic closer to [place], [place] and she had seen a secretarial stenographer at the [facility] but she did not like his'flippant demeanor' and she has not followed up with an alternative cardiologistsince that time. She denies fever, chills, vomiting, dysuria, diarrhea or constipation but she does admit to nausea and abdominal bloating due to gas today. She denies other recent illness and she claims that she has been on sotalol for the past 5 years and has had minimal heart racing on this agent and when her heart was flutter it only last 3 to 4 seconds. Her INR today is therapeutic at 2.2. In the ER she was noted to be orthostatic even after 1 L offluid was given and there was concern about her continue pattern of falling while on Coumadin. She was then diagnosed with suspected adverse drug reaction to sotalol causing orthostasis and frequent falls and she was then admitted under observation status to the CDU for ongoing care for stay that is expected denisse less than 48 hours. [facility] Medical History Arthritis Asthma Chronic anemia CVA (cerebral vascular accident) Diabetes Hemorrhoids HLD (hyperlipidemia) Hypertension Obesity PAF (paroxysmal atrial fibrillation) Rectal pain VTE (venous thromboembolism) Home Medications acetaminophen 325 mg tablet 1,000 mg PO QHS 06/26/16 [History Last Taken 06/29/16 1000 mg] loratadine 10 mg tablet 10 mg PO QHS 30 days 07/23/16 [Rx Last Taken Unknown] sotalol 80 mg tablet 120 mg (1.5 x 80 mg) PO BID 07/23/16 [Rx Last Taken Unknown] losartan 25 mg tablet 12.5 mg PO DAILY 01/10/17 [History Last Taken Unknown] warfarin 2.5 mg tablet 5 mg PO SUMOWEFR 01/10/17 [History Last Taken Unknown] glipizide 5 mg tablet 5 mg PO BID 07/23/18 [History Last Taken Unknown] phenazopyridine 200 mg tablet 200 mg PO BID PRN PRN Pain #10 tabs 06/24/19 [Rx Last Taken Unknown] Diltiazem 2% / Lidocaine 5% ointment (compound) #1 ea 10/15/22 [Rx Last Taken Unknown] losartan 50 mg-hydrochlorothiazide 12.5 mg tablet 1 tab PO DAILY 01/14/23 [History Last Taken Unknown] rosuvastatin 10 mg tablet 10 mg PO DAILY 01/14/23 [History Last Taken Unknown] warfarin 5 mg tablet 2.5 mg PO TUTHSA 01/14/23 [History Last Taken Unknown] Allergy/AdvReac Type Severity Reaction Status Date / Time Sulfa (Sulfonamide AdvReac Unknown Diarrhea Verified 01/14/23 15:41 Antibiotics) celecoxib [From Celebrex] AdvReac Nausea/Vom/ Verified 01/14/23 15:41 Diarrhea fluoxetine HCl [From Prozac] AdvReac Other Verified 01/14/23 15:41 isosorbide AdvReac Other Verified 01/14/23 15:41 metformin AdvReac Nausea/Vom/ Verified 01/14/23 15:41 Diarrhea Family History Mother CVA (cerebral vascular accident) Diabetes Heart disease Father CVA (cerebral vascular accident) Diabetes Heart disease Surgical History History of appendectomy History of cholecystectomy History of hysterectomy History of knee replacement History of shoulder surgery Social History household members: spouse Smoking Status: Never smoker alcohol intake: never substance use type: does not use ROS ROS Narrative Review of systems: Constitutional: Patient denies fevers chills or sweats Eyes: Patient denies changes in visio ENT: Patient denies runny nose or sore throat Cardiovascular: Patient admits to mild chest discomfort attributed to gas, she denies palpitations Respiratory: Patient denies shortness of breath or cough Gastrointestinal: Patient admits to nausea but denies abdominal pain diarrhea constipation melena or vomiting Genitourinary: Patient denies dysuria or hematuria Musculoskeletal: Patient admits to neck pain but denies arthralgias or myalgia Integumentary: Patient denies rash Neurologic: Patient denies headache or focal neurologic deficits Psychiatric: Patient denies anxiety Hematologic: Patient admits to easy be bleeding and bruising which have been attributed to Coumadin 14 point review systems otherwise negative except for positives noted above in HPI. Vital Signs Vital Signs Vital Signs: 01/14/23 15:42 01/14/23 15:48 01/14/23 18:39 Temperature 96.8 F L Temperature Source Temporal Pulse Rate 75 Pulse Rate [Lying] 75 Pulse Rate [Sitting (for 1 minute prior to obtaining)] 80 Pulse Rate [Standing (for 1 minute prior to obtaining)] 83 Respiratory Rate 20 H Respiratory Effort Normal Non-Labored Blood Pressure 182/62 H Blood Pressure [Lying] 121/55 H Blood Pressure [Sitting (for 1 minute prior to obtaining)] 138/82 H Blood Pressure [Standing (for 1 minute prior to obtaining)] 111/74 Blood Pressure Mean 102 Blood Pressure Mean [Lying] 77 Blood Pressure Mean [Sitting (for 1 minute prior to obtaining)] 100 Blood Pressure Mean [Standing (for 1 minute prior to obtaining)] 86 Pulse Ox 98 Oxygen Delivery Method Room Air 01/14/23 19:33 01/14/23 21:29 01/14/23 22:00 Temperature Temperature Source Pulse Rate 70 76 Pulse Rate [Lying] 63 Pulse Rate [Sitting (for 1 minute prior to obtaining)] 69 Pulse Rate [Standing (for 1 minute prior to obtaining)] 75 Respiratory Rate 17 14 Respiratory Effort Blood Pressure 111/74 146/80 H Blood Pressure [Lying] 146/63 H Blood Pressure [Sitting (for 1 minute prior to obtaining)] 163/66 H Blood Pressure [Standing (for 1 minute prior to obtaining)] 146/80 H Blood Pressure Mean 86 102 Blood Pressure Mean [Lying] 90 Blood Pressure Mean [Sitting (for 1 minute prior to obtaining)] 98 Blood Pressure Mean [Standing (for 1 minute prior to obtaining)] 102 Pulse Ox 95 97 Oxygen Delivery Method Room Air Room Air 01/14/23 23:23 Temperature Temperature Source Pulse Rate 74 Pulse Rate [Lying] Pulse Rate [Sitting (for 1 minute prior to obtaining)] Pulse Rate [Standing (for 1 minute prior to obtaining)] Respiratory Rate 15 Respiratory Effort Blood Pressure 139/74 H Blood Pressure [Lying] Blood Pressure [Sitting (for 1 minute prior to obtaining)] Blood Pressure [Standing (for 1 minute prior to obtaining)] Blood Pressure Mean 95 Blood Pressure Mean [Lying] Blood Pressure Mean [Sitting (for 1 minute prior to obtaining)] Blood Pressure Mean [Standing (for 1 minute prior to obtaining)] Pulse Ox 97 Oxygen Delivery Method Weight Weight: 202 lb 2.622 oz Body Mass Index (BMI) 34.7 Physical Exam Const alert, oriented x3, no apparent distress, average body habitus, healthy appearing and well nourished General Appearance: cooperative HEENT normocephalic, hearing grossly normal bilaterally, moist oral mucous membranes and oropharynx normal HEENT Narrative: Patient has a small abrasion on the right side of her face and head. Eyes PERRL, EOMs intact bilaterally and conjunctivae normal Neck no lymphadenopathy, supple and no JVD Resp normal respiratory effort, no retractions, no use of accessory muscles and clearto auscultation bilaterally Cardio regular rate and regular rhythm GI normal to inspection, nondistended, normoactive bowel sounds, soft to palpation and non-tender Extremity normal to inspection and full ROM Neuro oriented x3, CN's II-XII intact bilaterally, moves all extremities and no focal motor deficits Sensorium / Orientation: awake, alert, oriented to person, oriented to place andoriented to time Speech: speech normal Motor Exam: strength 5/5 throughout Psych affect normal Results Medical Records Data Attestation: I reviewed the patient's medical records Lab / Micro Data Attestation: I reviewed the patient's lab results. 01/15/23 05:43 01/14/23 15:50 Labs: Laboratory Results - last 24 hr 01/14/23 15:50: WBC 8.6, RBC 4.45, Hgb 12.4, Hct 39.3, MCV 88.3, MCH 27.9, MCHC 31.6 L, RDW Std Deviation 45.2 H, RDW Coeff of Rukhsana 14.1, Plt Count 252, MPV 11.7, Immature Gran % (Auto) 0.200, Neut % (Auto) 60.2, Lymph % (Auto) 28.4, [place] % (Auto) 8.3, Eos % (Auto) 2.1, Baso % (Auto) 0.8, Absolute Neuts (auto) 5.2, Absolute Lymphs (auto) 2.43, Nucleated RBC % 0, PT 24.4 H, INR 2.2, Sodium 139, Potassium 4.2, Chloride 106, Carbon Dioxide 27.0, Anion Gap 6, BUN 29 H, Creatinine 1.17 H, Estim Creat Clear Calc 36.43, Est GFR (MDRD) Af Amer 58 L, Est GFR (MDRD) Non-Af 48 L, BUN/Creatinine Ratio 24.8 H, Glucose 188 H, Calcium 9.9, Troponin I High Sens 10 01/14/23 17:47: Troponin I High Sens 13 01/14/23 18:55: Urine Color Yellow, Urine Clarity Sl. Cloudy, Urine pH 6.5, Ur Specific Clyde 1.010, Urine Protein Negative, Urine Glucose (UA) 50 H, Urine Ketones Negative, Urine Occult Blood 10 H, Urine Nitrite Negative, Urine Bilirubin Negative, Urine Urobilinogen Normal, Ur Leukocyte Esterase 25 H, UrineRBC 0-5 SEEN, Urine WBC 0-5 SEEN, Ur Squamous Epith Cells 0-5 SEEN, Amorphous Sediment 1+ URATE, Urine Bacteria 0 SEEN, Urine Mucus 0 SEEN Micro: [facility] [address] [place] [address] Brain/Head without Contrast MR#: [id number] Acct: [id number] Name: LAISHA WALKER Rep #: [id number] : 1950 F 72 From: Randall Hazel MD PCP: Dr. Flako Tracy MD Status: REG ER Study: Brain/Head without Contrast Date of Exam: 01/14/23 Exam# [id number] Ordering Dr: Kelsi Brower DO INDICATION: Trauma, fall, head injury with dizziness EXAMINATION: CT BRAIN - CT Head or Brain W/O Contrast Injection TECHNIQUE: Multiple axial images were obtained of the head without intravenous contrast. A radiation dose optimization technique was used for this scan. IV Contrast dosage and agent: None. COMPARISON: 01/01/2023 FINDINGS: BRAIN PARENCHYMA: No intra- or extra-axial hemorrhage. No evidence of acute infarct. No intracranial mass or mass effect. Stable idiopathic calcifications in the basal ganglia. Posterior fossa structures are unremarkable. CSF SPACES: Stable. No hydrocephalus. Basal cisterns are patent. CALVARIUM, SKULL BASE, PARANASAL SINUSES AND MASTOID AIR CELLS: Clear. No discrete lytic or blastic abnormalities. ORBITS: Both globes, extraocular muscles, optic nerves and retrobulbar fat appear unremarkable. CT/Brain/Head without Contrast IMPRESSION: No acute intracranial findings. Electronically Signed: Randall Hazel MD at 17:06 EST , CC: Dr. Kelsi Brower DO; Dr. Flako Tracy MD ~ Account Group Supervisor: Signed ----- ----- ----- ---- [facility] [address] [place] [address] Chest PA and Lateral MR#: [id number] Acct: [id number] Name: LAISHA WALKER Rep #: [id number] : 1950 F 72 From: Randall Hazel MD PCP: Dr. Flako Tracy MD Status: REG ER Study: Chest PA and Lateral Date of Exam: 01/14/23 Exam# [id number] Ordering Dr: Kelsi Brower DO INDICATION: syncope EXAMINATION/TECHNIQUE: X-RAY - XR Chest 2 Views COMPARISON: 08/14/2022 FINDINGS: LINES/DEVICES: None. LUNGS: No consolidation, edema or effusion. No pneumothorax. MEDIASTINUM AND CARDIOVASCULAR STRUCTURES: Cardiac silhouette not enlarged. Central airways and mediastinal contour are unremarkable. BONES AND SOFT TISSUES: Unremarkable. RAD/Chest PA and Lateral IMPRESSION: No radiographic evidence of acute cardiopulmonary disease. Electronically Signed: Randall Hazel MD at 17:11 EST , CC: Dr. Kelsi Brower DO; Dr. Flako Tracy MD ~ Account Group Supervisor Signed ----- ----- ----- ----- [facility] [address] [facility] [place] [address] Spine Cervical without Contras MR#: [id number] Acct: [id number] Name: LAISHA WALKER Rep #: [id number] : 1950 F 72 From: Randall Hazel MD PCP: Dr. Flako Tracy MD Status: REG ER Study: Spine Cervical without Contras Date of Exam: 01/14/23 Exam# [id number] Ordering Dr: Kelsi Brower DO INDICATION: Trauma, fall EXAMINATION: CT CERVICAL SPINE - CT Spine Cervical W/O Contrast Injection TECHNIQUE: Helically acquired images were obtained of the cervical spine. 2D reformatted images were reviewed. A radiation dose optimization technique was used for this scan. IV Contrast dosage and agent: None. COMPARISON: None. FINDINGS: VERTEBRAE: No acute fracture. Diffuse bilateral facet joint hypertrophy. Normal alignment. Normal craniocervical junction and cervicothoracic junction. DISCS and SPINAL CANAL: Disc heights are preserved. No critical stenosis. NECK SOFT TISSUES: No prevertebral soft tissue swelling. LUNG APICES: Clear. CT/Spine Cervical without Contras IMPRESSION: No acute fracture. Electronically Signed: Randall Hazel MD at 17:10 EST , CC: Dr. Kelsi Brower DO; Dr. Flako Tracy MD ~ Signed Rhythm Strip Rhythm Strip: Sinus Rhythm Rate: 73 Ectopy: None Radiology Impression Brain CT 01/14/23 16:13 IMPRESSION: No acute intracranial findings. Electronically Signed: Randall Hazel MD at 17:06 EST , Cervical Spine CT 01/14/23 16:18 IMPRESSION: No acute fracture. Electronically Signed: Randall Hazel MD at 17:10 EST , Chest X-Ray 01/14/23 16:45 IMPRESSION: No radiographic evidence of acute cardiopulmonary disease. Electronically Signed: Randall Hazel MD at 17:11 EST , Assessment & Plan Assessment/Plan (1) Orthostatic hypotension: (2) Adverse drug reaction: QUALIFIERS: Encounter type: initial encounter Qualified Code(s): T50.905A - Adverse effect of unspecified drugs, medicaments and biological substances, initial encounter PLAN: Plan 1. Orthostatic hypotension with frequent falls - Admit to CDU under observationstatus. Given normal saline IV fluids and continue supportive care. PT/OT and case management consult without appreciated in advance. 2. Adverse drug reaction to sotalol use to treat paroxysmal atrial fibrillationlikely causing #1 - This agent will be discontinued. Finally, we will consult secretarial stenographer on-call to evaluate this patient in the a.m. for recommendations regarding an alternative agent and to give her an opportunity to follow-up with someone that can manage her case with help appreciated in advance. 3. History of carotid stenosis with previous CVA - Check carotid duplex to evaluate for stenosis in case this is causing or contributing to #1. Check echocardiogram to evaluate left ventricular ejection fraction and assess for anypotential aortic stenosis. 4. Essential hypertension - Hold antihypertensives until orthostatic hypotension is resolved. 5. Hyperlipidemia - Resume statin and check lipid profile. 6. Diabetes mellitus type 2; of unknown control - ADA diet. Fingerstick blood sugars before every meal and at bedtime plus sliding scale insulin. Check hemoglobin A1c to evaluate quality of diabetic control. 7. Obesity with a BMI of 34.1 this admission - Weight loss will be recommended. 8. DVT prophylaxis - Patient is already on Coumadin which will be continued at this time with a therapeutic INR of 2.2 present on admission. Total time: Approximately 45 minutes. Charges/Coding Visit Charges OBSV E&M: 47414 Observ/hosp same date L1 01/15/2333 <Electronically signed by South Jesus DO> Cosigner Signature (if applicable): CC: Dr. South Jesus DO; Dr. Flako Tracy MD~ Signed [facility] Work Phone: [phone]) 769-255711-11-2023 Discharge summary Author [facility] January 15, 2023 12:47am Note Date/Time January 14, 2023 4:26pm [facility] Medical Records Department [address] [place] [id number] Emergency Department Summary 01/14/23 MR#: [id number] Acct: [id number] Name: LAISHA WALKER Rep #:[id number] : 1950 72 From: Kelsi Cole PCP: Dr. Flako Tracy MD Status:AD M [facility]ERY Location: [place] [address] HPI History of Present Illness Chief Complaint: Dizziness Informant: patient Narrative Narrative: Patient is 72-year-old female with history of proximal atrial fibrillation (on Coumadin and sotalol), type 2 diabetes mellitus, GERD and hypertension presenting from the [facility] after a fall/syncopal episode. Apparently states shewas visiting her sister at the [place]. Patient lives at home with her . She was moving a chair when she somehow fell. She is not sure if she passed outor not. She notes she did hit the right side of her head/face. Patient states she had multiple falls over the past week. Week ago she had a fall and hit her head in the back. She did go to the ER to have this evaluated. Review shows that patient was seen on 01/01 for a fall after losing her balance. CT of the brain at that time did not show any acute process. Patient notes that she has been having issues of dizziness.Notes that she is having ongoing issues with herbalance and is supposed to use either a cane or a walker. She does not use any assistive device when she fell today. She is concerned that some of her symptoms might be a side effect of sotalol. She notes her PCP is currently managing of her cardiac issues because her most recent secretarial stenographer within the clinic moved and she has not followed up with anyone since. Fever or chills. She is little nauseous today. She states while she was on herway to the [place] today she suddenly felt a pain in her left chest which she gets sometimes and attributes to gas. She then felt a weird sensation in her head like she might pass out but did not. She denies any new swelling of her legs, fever, chills, urinary symptoms or other GI symptoms. No recent illnesses. [facility] Medical History Arthritis Asthma Chronic anemia CVA (cerebral vascular accident) Diabetes Hemorrhoids HLD (hyperlipidemia) Hypertension Obesity PAF (paroxysmal atrial fibrillation) Rectal pain VTE (venous thromboembolism) Home Medications acetaminophen 325 mg tablet 1,000 mg PO QHS 06/26/16 [History Last Taken 06/29/16 1000 mg] loratadine 10 mg tablet 10 mg PO QHS 30 days 07/23/16 [Rx Last Taken Unknown] sotalol 80 mg tablet 120 mg (1.5 x 80 mg) PO BID 07/23/16 [Rx Last Taken Unknown] losartan 25 mg tablet 12.5 mg PO DAILY 01/10/17 [History Last Taken Unknown] warfarin 2.5 mg tablet 5 mg PO SUMOWEFR 01/10/17 [History Last Taken Unknown] glipizide 5 mg tablet 5 mg PO BID 07/23/18 [History Last Taken Unknown] phenazopyridine 200 mg tablet 200 mg PO BID PRN PRN Pain #10 tabs 06/24/19 [Rx Last Taken Unknown] Diltiazem 2% / Lidocaine 5% ointment (compound) #1 ea 10/15/22 [Rx Last Taken Unknown] losartan 50 mg-hydrochlorothiazide 12.5 mg tablet 1 tab PO DAILY 01/14/23 [History Last Taken Unknown] rosuvastatin 10 mg tablet 10 mg PO DAILY 01/14/23 [History Last Taken Unknown] warfarin 5 mg tablet 2.5 mg PO TUTHSA 01/14/23 [History Last Taken Unknown] Allergy/AdvReac Type Severity Reaction Status Date / Time Sulfa (Sulfonamide AdvReac Unknown Diarrhea Verified 01/14/23 15:41 Antibiotics) celecoxib [From Celebrex] AdvReac Nausea/Vom/ Verified 01/14/23 15:41 Diarrhea fluoxetine HCl [From Prozac] AdvReac Other Verified 01/14/23 15:41 isosorbide AdvReac Other Verified 01/14/23 15:41 metformin AdvReac Nausea/Vom/ Verified 01/14/23 15:41 Diarrhea Family History Mother CVA (cerebral vascular accident) Diabetes Heart disease Father CVA (cerebral vascular accident) Diabetes Heart disease Surgical History History of appendectomy History of cholecystectomy History of hysterectomy History of knee replacement History of shoulder surgery Social History household members: spouse Smoking Status: Never smoker alcohol intake: never substance use type: does not use ROS ROS ED Constitutional Constitutional ED: Denies chills, fever(s) or sweats Eyes Eyes: Denies change in vision ENT ENT ED: Denies rhinorrhea or sore throat Cardiovascular Cardiovascular: Reports chest pain; Denies palpitations Respiratory/Chest Respiratory/Chest: Denies cough, dyspnea, dyspnea on exertion or sputum Gastrointestinal Gastrointestinal: Reports nausea; Denies abdominal pain, diarrhea, melena or vomiting Genitourinary Genitourinary ED: Denies dysuria or urinary frequency Musculoskeletal Musculoskeletal: Reports neck pain; Denies arthralgias or myalgias Integumentary Denies rash Neurologic Neurologic: Denies headache(s), paresthesias or weakness Psychiatric Psychiatric: Denies anxiety Hematologic/Lymphatic Hematologic/Lymphatic: Reports easy bleeding and easy bruising EXAM Physical Exam Const Vital Signs: 01/14/23 15:42 01/14/23 15:48 01/14/23 18:39 Temperature 96.8 F L Temperature Source Temporal Pulse Rate 75 Pulse Rate [Lying] 75 Pulse Rate [Sitting (for 1 minute prior to obtaining)] 80 Pulse Rate [Standing (for 1 minute prior to obtaining)] 83 Respiratory Rate 20 H Respiratory Effort Normal Non-Labored Blood Pressure 182/62 H Blood Pressure [Lying] 121/55 H Blood Pressure [Sitting (for 1 minute prior to obtaining)] 138/82 H Blood Pressure [Standing (for 1 minute prior to obtaining)] 111/74 Blood Pressure Mean 102 Blood Pressure Mean [Lying] 77 Blood Pressure Mean [Sitting (for 1 minute prior to obtaining)] 100 Blood Pressure Mean [Standing (for 1 minute prior to obtaining)] 86 Pulse Ox 98 Oxygen Delivery Method Room Air 01/14/23 19:33 01/14/23 21:29 01/14/23 22:00 Temperature Temperature Source Pulse Rate 70 76 Pulse Rate [Lying] 63 Pulse Rate [Sitting (for 1 minute prior to obtaining)] 69 Pulse Rate [Standing (for 1 minute prior to obtaining)] 75 Respiratory Rate 17 14 Respiratory Effort Blood Pressure 111/74 146/80 H Blood Pressure [Lying] 146/63 H Blood Pressure [Sitting (for 1 minute prior to obtaining)] 163/66 H Blood Pressure [Standing (for 1 minute prior to obtaining)] 146/80 H Blood Pressure Mean 86 102 Blood Pressure Mean [Lying] 90 Blood Pressure Mean [Sitting (for 1 minute prior to obtaining)] 98 Blood Pressure Mean [Standing (for 1 minute prior to obtaining)] 102 Pulse Ox 95 97 Oxygen Delivery Method Room Air Room Air 01/14/23 23:23 Temperature Temperature Source Pulse Rate 74 Pulse Rate [Lying] Pulse Rate [Sitting (for 1 minute prior to obtaining)] Pulse Rate [Standing (for 1 minute prior to obtaining)] Respiratory Rate 15 Respiratory Effort Blood Pressure 139/74 H Blood Pressure [Lying] Blood Pressure [Sitting (for 1 minute prior to obtaining)] Blood Pressure [Standing (for 1 minute prior to obtaining)] Blood Pressure Mean 95 Blood Pressure Mean [Lying] Blood Pressure Mean [Sitting (for 1 minute prior to obtaining)] Blood Pressure Mean [Standing (for 1 minute prior to obtaining)] Pulse Ox 97 Oxygen Delivery Method Positive well nourished and well developed General Appearance ED: well developed and NAD HEENT Reports TM's clear and moist mucous membranes Negative for trauma Tympanic Membrane ED: Yes TM's clear Eyes PERRL and EOMs intact bilaterally Neck supple and no JVD Neck Narrative: No midline tenderness Chest Wall inspection of chest normal and palpation of chest normal Resp normal respiratory effort and clear to auscultation bilaterally Cardio regular rate, regular rhythm and no murmurs GI normal to inspection, nondistended, normoactive bowel sounds and non-tender Back/Spine Cervical Spine: Negative for cervical spine tenderness Thoracic Spine / Upper Back: Negative for thoracic spinal tenderness Lumbar Spine / Lower Back: Negative for lumbar spinal tenderness Extremity normal to inspection General Extremety ED: Negative for edema or tenderness General Extremity: Negative for edema Neuro oriented x3 and CN's II-XII intact bilaterally Sensorium / Orientation: alert Motor Exam: Negative for general weakness Psych mental status grossly normal Skin Skin Narrative: abrasions to right fingers MDM MDM MDM Narrative Medical decision making narrative: Patient is evaluated for fall and dizziness. She had multiple falls over the past week or so. She is on Coumadin and high risk for injury associate with fall. CT of the brain and C-spine is obtained which does not show any acute trauma or intracranial hemorrhage. CBC is normal with no leukocytosis. INR is therapeutic at 2.2. Her BMP shows chronic CHANDAN with a creatinine of 1.17 which is actually slightly improved from her baseline. She is mildly hyperglycemic with a glucose of 188 but does have a history of diabetes mellitus. High since he troponin stable at 10 and 13 and EKG does not show acute ischemic changes. Orthostatics are obtained and are positive. Patient is symptomatic during them. She is given a liter of IV fluid and orthostatics were repeated. Blood pressure increases mildly but she still quite symptomatic during them and does drop her systolic blood pressure when she goes from sitting to standing.Due to her frequent falls and continued symptomatic dizziness despite IV fluids, patient is agreeable to be admitted. Urinalysis is consistent with mild contamination and not consistent with urinary tract infection. Patient is on multiple medications that can worsen her symptoms including sotalol, losartan aswell as hydrochlorothiazide. She might benefit from medication management. Shecommented she has not seen a secretarial stenographer in quite some time even though she is on sotalol and she also tells me that she has a history of flexion of carotid arteries wondering if that is related to her dizziness. This is relayed to admitting physician. Lab Data Attestation: I reviewed the patient's lab results. Labs: Laboratory Results - last 24 hr 01/14/23 01/14/23 01/14/23 15:50 17:47 18:55 WBC 8.6 RBC 4.45 Hgb 12.4 Hct 39.3 MCV 88.3 MCH 27.9 MCHC 31.6 L RDW Std Deviation 45.2 H RDW Coeff of Rukhsana 14.1 Plt Count 252 MPV 11.7 Immature Gran % (Auto) 0.200 Neut % (Auto) 60.2 Lymph % (Auto) 28.4 [place] % (Auto) 8.3 Eos % (Auto) 2.1 Baso % (Auto) 0.8 Absolute Neuts (auto) 5.2 Absolute Lymphs (auto) 2.43 Nucleated RBC % 0 PT 24.4 H INR 2.2 Sodium 139 Potassium 4.2 Chloride 106 Carbon Dioxide 27.0 Anion Gap 6 BUN 29 H Creatinine 1.17 H Estim Creat Clear Calc 36.43 Est GFR (MDRD) Af Amer 58 L Est GFR (MDRD) Non-Af 48 L BUN/Creatinine Ratio 24.8 H Glucose 188 H Calcium 9.9 Troponin I High Sens 10 13 Urine Color Yellow Urine Clarity Sl. Cloudy Urine pH 6.5 Ur Specific Clyde 1.010 Urine Protein Negative Urine Glucose (UA) 50 H Urine Ketones Negative Urine Occult Blood 10 H Urine Nitrite Negative Urine Bilirubin Negative Urine Urobilinogen Normal Ur Leukocyte Esterase 25 H Urine RBC 0-5 SEEN Urine WBC 0-5 SEEN Ur Squamous Epith Cells 0-5 SEEN Amorphous Sediment 1+ URATE Urine Bacteria 0 SEEN Urine Mucus 0 SEEN Radiography Chest X-Ray - ED: 2 View, Read by ED Physician, Read by Radiologist and No AcuteDisease Diagnostic Testing: Clinical Impression(s) from Imaging Studies Brain CT 01/14/23 16:13 IMPRESSION: No acute intracranial findings. Electronically Signed: Randall Haezl MD at 17:06 EST , Cervical Spine CT 01/14/23 16:18 IMPRESSION: No acute fracture. Electronically Signed: Randall Hazel MD at 17:10 EST , Chest X-Ray 01/14/23 16:45 IMPRESSION: No radiographic evidence of acute cardiopulmonary disease. Electronically Signed: Randall Hazel MD at 17:11 EST , Rhythm Strip Rhythm Strip: Sinus Rhythm Rate: 73 Ectopy: None EKG Initial EKG: Attestation: I personally reviewed and interpreted this EKG as follows: Interpretation: Sinus Rhythm Comments: Sinus rhythm rate of 73 bpm Left axis deviation Incomplete right bundle cooper block Moderate voltage criteria for LVH Nonspecific T wave version lead III Prior EKG on 08/14/2022 patient now has a T wave version in lead III as well as LVH criteria Discharge Plan Dx/Rx/DC Orders Clinical Impression: Dizziness, Orthostatic hypotension, imaging technologist (current) use of 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, Multiple falls Disposition Disposition: Acute Care Hospital [facility] Discharge Date/Time: 01/14/23 23:28 What to do if you have Problems For any increased pain, shortness of breath, bleeding, nausea or vomiting, chestpain, or any unexpected problems, contact your Primary Care Provider. Call [facility] ([phone]) or report to the closest Emergency Room. Call 911 if necessary. 01/15/23 0047 <Electronically signed by Kelsi Brower DO> Cosigner Signature (if applicable): CC: Dr. Flako Tracy MD ~ Signed [facility] Work Phone: 1(980) 150-558311-02-2023 Miscellaneous Notes* Telephone Encounter - Meggan Bartlett LPN - 01/06/2023 3:34 PM EDT Patient notified of results, verbalizes understanding of instructions. Meggan Bartlett LPN * Telephone Encounter - Georgie Stallworth APRN.CNP - 01/06/2023 3:22 PM EDT Can you please call the patient and let her know that I reviewed her CT and thyroid ultrasound results. CT of the brain was normal. No bleeding noted. Thyroid ultrasound does show several thyroid nodules as well as a palpable lymph node. Radiology isrecommending biopsy of the nodules. I have placed a consult for general surgery, I would recommend scheduling a follow-up with them for further evaluation. Please let me know if she has any questions. Thank you. Georgie Stallworth APRN.MORTICIAN INVESTIGATOR documented in this encounterSt. [facility]11-02-2023 NoteHNO ID: [id number] Author: Aries Mcclendon CT Service: Radiology Author Type: Technologist Type: Progress Notes Filed: 01/06/2023 10:40 AM Note Text: Radiology Service Progress Note PATIENT NAME: Laisha Walker DATE OF SERVICE: January 06, 2023 TIME: 10:40 AM PATIENT IDENTITY VERIFICATION COMPLETED USING TWO (2) IDENTIFIERS: Name and Date of confirmed by patient verbally. FALL SCREENING: Has the patient had 2 falls in the last year or 1 fall with injury or currently using an Ambulatory Assistive Device (Walker, Cane, Wheelchair, Crutches, etc.)? No PATIENT GENDER DATA: Female. status: : No status: NO. PATIENT RELEVANT IMPLANT DATA REVIEWED: Not Applicable RADIOLOGY DEPARTMENT: CT; Exam(s) Completed: Brain PERIPHERAL IV DATA: Not applicable SIGNED BY: AMNA Costa January 06, 2023 10:40 [facility] History of Present illness Narrative* Mary Grace Sears RDMS - 01/05/2023 2:30 PM EDT Radiology Service Progress Note PATIENT NAME: Laisha Walker DATE OF SERVICE: January 05, 2023 TIME: 3:21 PM PATIENT IDENTITY VERIFICATION COMPLETED USING TWO (2) IDENTIFIERS: Name and Date of confirmedby patient verbally. FALL SCREENING: Has the patient had 2 falls in the last year or 1 fall with injury or currently using an Ambulatory Assistive Device (Walker, Cane, Wheelchair, Crutches, etc.)? Yes, Patient High Riskfor Falls What interventions were put in place to prevent falls during this visit? Offered Assistance with Transfers/Clothing and Increased Observations by Caregivers PATIENT GENDER DATA: Female. status: : No status: NO. PATIENT RELEVANT IMPLANT DATA REVIEWED: Not Applicable RADIOLOGY DEPARTMENT: Ultrasound PERIPHERAL IV DATA: Not applicable SIGNED BY: Mary Grace Sears RDMS January 05, 2023 3:21 PM documented in this encounterSt. Rita'[facility]11-01-2023 Instructions* Patient Instructions* Georgie Stallworth APRN.CNP - 01/05/2023 8:49 AM EDT Get Brain CT completed as soon as possible. Red flag symptoms go to ER Schedule ultrasound of thyroid Continue with supportive care at home, ice, rest, gentle stretching, and tylenol as needed. Follow up with Orthopedics or consider physical therapy if the hip pain does not improve. Follow up pending test results or sooner as needed. documented in this encounterSt. Rita'S Hospital11-01-2023 History of Present illness Narrative* Georgie Stallworth APRN.CNP - 01/05/2023 8:20 AM EDT This is a 72 year old female who presents today with: Patient presents with: Follow Up: ER follow up. HISTORY OF PRESENT ILLNESS: Laisha Walker is a 72 year old female. Patient presents with: Follow Up: ER follow up. HOSPITAL/ER FOLLOW UP: Reason for visit: fall Which facility: [facility] ER Date of visit: 01/01/2023 Diagnosis: Fall Testing done: CT brain without contrast was normal. X-rays of the right hip and pelvis and right hand showed no evidence of fractures. Treatment given: None Current symptoms: Still having ongoing right hip discomfort, at times feels like it will give out. Follows with [facility]. Right hand pain is improving. Using Tylenol as needed. Refers thatsmita fell again yesterday while trying to get out of the tub hit head on the side of the tub. Has had some mild ongoing dizziness. Denies LOC. Refers that she does not want to go to the hospital. On Coumadin for A-fib. Neck Nodule: Refers that is has been hard to swallow. Refers she can feel a nodule on her left neck. Mild tenderness at times. Was seen for this concern in November, needs to still complete US thyroid. History of thyroid nodules in the past. PAST MEDICAL HISTORY: PAST MEDICAL HISTORY Diagnosis Date Atrial fibrillation (HCC) SEES DR. BARRERA Carotid stenosis, asymptomatic CVA (cerebral vascular accident) (HCC) post op after 2017 bilateral knee replacements - per pt was told by neurology that it was a questionable stroke DVT (deep venous thrombosis) (HCC) post op Dysthymic disorder Depression (non-psychotic) Esophageal reflux Essential hypertension, benign Goiter, unspecified Goiter Liver cirrhosis (HCC) Macular degeneration (senile) of retina, unspecified Macular degeneration Other and unspecified hyperlipidemia Renal carcinoma, right (HCC) Type 2 diabetes mellitus (HCC) PAST SURGICAL HISTORY Procedure Laterality Date APPENDECTOMY 1962 RUPTURED APPENDIX ARTHRP KNE CONDYLE&PLATU MEDIAL&LAT COMPARTMENTS Bilateral 2017 CHOLECYSTECTOMY 1996 Cholecystectomy COLONOSCOPY [facility] EGD EUS 06/11/2020 benign leiomyoma GE junction, mild antral gastropathy, fatty pancreas, likely cirrhotic liver, prominent dilated portal vein NEPHRECTOMY PARTIAL Right 05/18/2019 robotic PAST SURGICAL HISTORY OF 07/15/1999 LEFT SHOULDER PAST SURGICAL HISTORY OF Left 2018 REPAIR OF LEFT KNEE FRACTURE TOTAL ABDOMINAL HYSTERECT W/WO RMVL TUBE OVARY 1984 Hysterectomy, JERRY ALLERGIES Gabapentin, Accupril [Quinapril Hcl], Bextra [Valdecoxib], Celebrex [Celecoxib], Codeine,Entex La [Phenylephrine-Guaifenesin], Glucophage [Metformin Hcl], Lipitor [Atorvastatin Calcium], Lodine [Etodolac], Naprosyn [Naproxen], Nsaids (Non-Steroidal Anti-Inflammatory Drug), Pravachol [Pravastatin Sodium], Sulfa (Sulfonamide Antibiotics), Ultracet [Tramadol-Acetaminophen], Vicodin [Hydrocodone-Acetaminophen], Vioxx [Rofecoxib], and Zocor [Simvastatin] MEDICATIONS Current Outpatient Medications Medication Sig benzonatate (TESSALON PERLE) 100 mg capsule Take 2 capsules by mouth three times daily as needed. promethazine (PHENERGAN) 12.5 mg tablet Take 1 tablet by mouth every 6 hours as needed. warfarin (COUMADIN) 5 mg tablet 2.5 mg //Tuesday, 5 mg all other days or as directed losartan-hydroCHLOROthiazide (HYZAAR) 50-12.5 mg per tablet Take 0.5 tablets by mouth once daily. rosuvastatin (CRESTOR) 10 mg tablet Take 1 tablet by mouth daily at bedtime. glipiZIDE (GLUCOTROL) 5 mg tablet Take 1 tablets by mouth before breakfast and one tablet by mouth before dinner sotalol (BETAPACE) 120 mg tablet Take 1 tablet by mouth twice daily. docusate sodium (STOOL SOFTENER ORAL) Take by mouth as needed. OTC blood sugar diagnostic (BLOOD GLUCOSE TEST) test strip Test blood sugar(s) 1` times daily. Dx: Type2 DM - Uncontrolled E11.65 Insulin: No Lancets lancets Test blood sugar(s) 1` times daily. Dx: Type 2 DM - Uncontrolled E11.65 Insulin: No hydrocortisone (ANUSOL-HC) 2.5 % rectal cream by RECTAL route twice daily. multivitamin (MULTIPLE VITAMINS ORAL) Take by mouth. alcohol swabs (ALCOHOL PREP PADS) Apply 1 application to affected area once daily. loratadine (CLARITIN) 10 mg tablet Take 10 mg by mouth once daily. acetaminophen (TYLENOL) 325 mg tablet Take 500 mg by mouth. 2 TABLETS AT HS No current facility-administered medications for this visit. FAMILY HISTORY Problem Relation Age of Onset Heart Father [place] Hypertension Father Heart disease Father Arthritis Mother Hypertension Mother Dementia Mother other (DEPRESSION) Sister Diabetes Brother Heart Attack Brother Heart disease Brother other (DEPRESSION) Brother Hypertension Brother Stroke Sister Cancer No Family History none Social History Tobacco Use Smoking status: Never Smokeless tobacco: Never Vaping Use Vaping Use: Never used Substance Use Topics Alcohol use: Yes Comment: very seldom Drug use: No REVIEW OF SYSTEMS GENERAL: + Fall HEENT: + Difficulty swallowing NECK: Negative for lumps, goiter, pain and significant neck swelling RESPIRATORY: Negative for cough, hemoptysis, wheezing, dyspnea or shortness of breath CARDIOVASCULAR: Negative for chest pain, leg swelling, orthopnea, or palpitations GI: No nausea, vomiting, or diarrhea/constipation. No hematochezia/melena. No heartburn or reflux symptoms. : No history of dysuria, frequency or incontinence MUSCULOSKELETAL: + Right Hip Pain SKIN: Negative for lesions, rash, and itching ENDOCRINE: Negative for cold or heat intolerance, polyuria, polydipsia and goiter NEURO: + Dizziness MOOD: Negative for depression, anxiety, or suicidal ideation. EXAM: BP 138/82 Pulse 61 Resp 16 Wt 89.4 kg (197 lb) SpO2 99% BMI 33.81 kg/m PHYSICAL EXAM: General Appearance: Well appearing, alert, in no acute distress, well-hydrated, well nourished. Skin: Skin color, texture, turgor normal, no suspicious rashes or lesions. Head: Normocephalic, no masses, lesions, tenderness or abnormalities. Eyes: Anicteric sclera. Extraocular movements are intact. Neck: Positive findings: thyroid: enlarged, nodular, and tender. Lungs: Lungs clear to auscultation. No wheezing, rhonchi, rales. Heart: RRR without murmur, gallop, or rubs. No ectopy. Extremities: No deformities, edema, skin discoloration, clubbing or cyanosis. Good capillary refill. Musculoskeletal: Right hip tender with palpation, full ROM. Peripheral Pulses: Normal, Capillary refill <2secs, strong peripheral pulses, Pulses palpable. Neurologic: Gait normal. Sensation grossly intact.. ASSESSMENT/PLAN: 1. Hospital discharge follow-up - ICD9: V67.59, ICD10: Z09 (primary diagnosis) - Still having on going pain since discharge. 2. Fall, initial encounter - ICD9: E888.9, ICD10: W19.XXXA - Discussed completing PT to work on balance and strength. Refers that it is too expensive out of pocket. Will look up exercises that she can do at home. 3. Dysphagia, unspecified type - ICD9: 787.20, ICD10: R13.10 - Complete US as soon as possible, may need referral to general surgery pending test results. - US THYROID/PARATHYROID 4. History of thyroid nodule - ICD9: V12.29, ICD10: Z86.39 - Same plan as #3. 5. Injury of head, initial encounter - ICD9: 959.01, ICD10: S09.90XA - Due to repeat fall and Coumadin use we will get CT of brain as soon as possible. - Patient denied wanting to go to the ER. - CT BRAIN WO IVCON Follow-up pending test results or sooner as needed. Discussed treatment plan and patient voices understanding. Patient's questions answered appropriately. Medications and potential side effects were discussed and patient voices understanding. Georgie Stallworth APRN.JASEN This note was partially generated using SeatID voice recognition system. Note was reviewed for accuracy. There may be minor misspellings or grammar miscues with SeatID voice recognition. documented in this encounterSt. Rita'[facility]10-27-2023 NoteIMPRESSION: INCOMPLETE: NEEDS ADDITIONAL IMAGING EVALUATION There is no abnormality seen in the right breast to correspond with the pain in the upper inner quadrant, however, ultrasound is recommended. Katherin lay/yessenia:12/31/2022 08:34:51 Construction Sales Manager(s): RT Altagracia(R)(M), [facility] letter sent: Additional Imaging Needed Mammogram BI-RADS: 0 Incomplete: needs additional imaging evaluation If this report indicates you need additional imaging, and it has NOT yet been performed, please call , to schedule. We sincerely thank you for choosing the [facility] for your breast imaging needs. Multiple national specialty organizations have released breast cancer screening guidelines for women at average risk for developing breast cancer - guidelines that are based on both evidence and opinion, yet differ on when to start and how often to screen for breast cancer. With representation from Breast Imaging, Internal Medicine, Women's Health, Family Medicine, and Medical/Surgical Oncology, the [facility] has carefully reviewed the data and reached the following consensus: 1) All women should engage in shared decision-making with their providers to decide when to start and how often to screen; 2) All women should have the opportunity to start screening mammography at age 40; 3) For women ages 45-55, we recommend annual screening mammograms; 4) For women ages 55 and over, we support both the transition from an annual to a biennial interval if this aligns more with patient's values and preferences, or continuation with annual screening; 5) All women should discuss with their providers when to stop screening mammograms. Account Group Supervisor: Yessenia Transcribe Date/Time: Dec 30 2022 1:59P Dictated by: KATHERIN STALLWORTH MD This examination was interpreted and the report reviewed and electronically signed by: KATHERIN STALLWORTH MD on Dec 31 2022 8:34AM [facility] DIVISION OF [id number] History of Present illness Narrative* Flako Tracy MD - 12/30/2022 3:49 PM EDT I agree with the advice given; stay same and recheck in 3 weeks Flako Tracy MD * Kay Ken RN - 12/30/2022 3:32 PM EDT patient had inr completed at [facility] patients inr is 2.6 (patients inr range is 2.0-3.0) patient is currently taking 2.5mg Tues,Thurs,Sat and 5mg all other days) patients last dose change unknown patient has had no changes in medication and no missed doses and no change in diet Advised patient to continue on the same dose(s) and that they would only be contacted regarding dosage and follow up instructions after review with provider, if a change is needed. Written instructions given and patient verbalized understanding. Presently scheduled in 3 weeks (01/20/23) for follow u p INR. documented in this encounterSt. Rita'S Hospital10-26-2023 History of Present illness Narrative* Tanya Mckeon, Mammo Tech - 12/30/2022 2:10 PM EDT Radiology Service Progress Note PATIENT NAME: Laisha Walker DATE OF SERVICE: December 30, 2022 TIME: 1:56 PM PATIENT IDENTITY VERIFICATION COMPLETED USING TWO (2) IDENTIFIERS: Name and Date of confirmedby patient verbally. FALL SCREENING: Has the patient had 2 falls in the last year or 1 fall with injury or currently using an Ambulatory Assistive Device (Walker, Cane, Wheelchair, Crutches, etc.)? No PATIENT GENDER DATA: Female. status: : No status: NO. PATIENT RELEVANT IMPLANT DATA REVIEWED: Not Applicable RADIOLOGY DEPARTMENT: Mammography PERIPHERAL IV DATA: Not applicable SIGNED BY: Travis Shaho Bruce December 30, 2022 1:56 PM documented in this encounterSt. Rita'S Hospital10-26-2023 Telephone encounter Note * Telephone Encounter - Cheryl Harrison MA - 12/30/2022 11:52 AM EDT Please call pt to set up mammogram. Cheryl Harrison Ma [facility]10-26-2023 Miscellaneous Notes* Telephone Encounter - Cheryl Harrison MA - 12/30/2022 11:52 AM EDT Please call pt to set up mammogram. Cheryl Harrison Ma * Telephone Encounter - Flako Tracy MD - 12/30/2022 11:43 AM EDT Mammogram ordered Flako Tracy MD * Telephone Encounter - Marianna Pugh - 12/29/2022 3:25 PM EDT Patient verified by name and . She is requesting a mammogram screenning order be placed for her to schedule. Review and advise. documented in this encounterSt. Rita'S Hospital10-26-2023 Telephone encounter Note * Telephone Encounter - Flako Tracy MD - 12/30/2022 11:43 AM EDT Mammogram ordered Flako Tracy MD [facility] Telephone encounter Note* Telephone Encounter - Marianna Pugh - 12/29/2022 3:25 PM EDT Patient verified by name and . She is requesting a mammogram screenning order be placed for her to schedule. Review and advise. [facility]-21-[facility] Instructions* Patient Instructions* Jessica Lara APRN.JASEN - 11/25/2022 11:05 AM EDT covid and influenza test ordered You will be notified in 12-24 hours, results available on [facility] isolation until results are back Rest, increase water intake Tylenol as needed for fever or pain. Salt water gargles, chloraseptic spray or lozenges as needed for sore throat. Warm beverages, honey. Nasal saline spray as needed Cool mist humidifier at night Tylenol (generic acetaminophen) 500 mg-2 tabs every 8 hrs. as needed for fever and aches * Seek medical care immediately, call 911, go to ER if you have chest pain, difficulty breathing, shortness of breath, inability to swallow. documented in this encounterSt. Rita'S Hospital09-21-2023 History of Present illness Narrative* Jessica Lara APRN.CNP - 11/25/2022 10:36 AM EDT Subjective The history is provided by the patient. No core java engineer was used. HPI Laisha Walker is a 72 year old female who presents today for CC of nausea, cough, congestion,sore throat for 3 days. She has used covid She did a home covid test that was inconclusive. H/o cva BP 128/82 Pulse 76 Temp 37.8 C (100.1 F) (Tympanic) Resp 18 Wt 89.2 kg (196 lb 9.6 oz) SpO2 96% BMI 33.75 kg/m Social History Tobacco Use Smoking status: Never Smokeless tobacco: Never Vaping Use Vaping Use: Never used Substance Use Topics Alcohol use: Yes Comment: very seldom Drug use: No PAST MEDICAL HISTORY Diagnosis Date Atrial fibrillation (HCC) SEES DR. BARRERA Carotid stenosis, asymptomatic CVA (cerebral vascular accident) (HCC) post op after 2017 bilateral knee replacements - per pt was told by neurology that it was a questionable stroke DVT (deep venous thrombosis) (HCC) post op Dysthymic disorder Depression (non-psychotic) Esophageal reflux Essential hypertension, benign Goiter, unspecified Goiter Liver cirrhosis (HCC) Macular degeneration (senile) of retina, unspecified Macular degeneration Other and unspecified hyperlipidemia Renal carcinoma, right (HCC) Type 2 diabetes mellitus (HCC) I have confirmed and edited as necessary, the [facility] Review of Systems Constitutional: Negative for chills and fever. HENT: Positive for congestion. Negative for ear pain, sinus pain and sore throat. Respiratory: Positive for cough. Negative for sputum production, shortness of breath and wheezing. Cardiovascular: Negative for chest pain. Gastrointestinal: Positive for nausea. Negative for abdominal pain, diarrhea and vomiting. Musculoskeletal: Negative for myalgias. Neurological: Negative for headaches. Objective Physical Exam Vitals and nursing note reviewed. HENT: Head: Normocephalic and atraumatic. Right Ear: Tympanic membrane, ear canal and external ear normal. Left Ear: Tympanic membrane, ear canal and external ear normal. Nose: Mucosal edema, congestion and rhinorrhea present. Right Sinus: No maxillary sinus tenderness or frontal sinus tenderness. Left Sinus: No maxillary sinus tenderness or frontal sinus tenderness. Mouth/Throat: Pharynx: Uvula midline. No oropharyngeal exudate or posterior oropharyngeal erythema. Cardiovascular: Rate and Rhythm: Normal rate and regular rhythm. Heart sounds: Normal heart sounds. Pulmonary: Effort: Pulmonary effort is normal. Breath sounds: Normal breath sounds. Lymphadenopathy: Head: Right side of head: No submental, submandibular or tonsillar adenopathy. Left side of head: No submental, submandibular or tonsillar adenopathy. Cervical: No cervical adenopathy. Skin: General: Skin is warm and dry. Neurological: Mental Status: She is alert. Psychiatric: Mood and Affect: Affect normal. ASSESSMENT/PLAN: 1. URI with cough and congestion - ICD9: 465.9, ICD10: J06.9 (primary diagnosis) - Discussed viral etiology and rationale for treatment. - Symptomatic treatment with prn analgesia - Supportive care with fluids and rest Home isolation Testing ordered Comfort measures discussed - see patient instructions. When to seek higher level of care Notified in 12-24 hours with results, available on [facility] - COVID & INFLUENZA A/B & RSV NAAT, ROUTINE 2. Nausea - ICD9: 787.02, ICD10: R11.0 Phenergan prn Jessica Lara APRN.JASEN documented in this encounterSt. Rita'S Hospital09-20-2023 Miscellaneous Notes* Telephone Encounter - Meggan Bartlett LPN - 11/24/2022 6:22 PM EDT Patient notified of referral, verbalizes understanding of instructions. Coumadin Clinic already contacted Pt. Meggan Bartlett LPN * Telephone Encounter - Georgie Stallworth APRN.JASEN - 11/22/2022 11:27 AM EDT Please let her know that I did place the consult for Coumadin clinic. This should be covered by insurance. She can continue on current dosing of Coumadin. I requested via the Coumadin clinic to have repeat INR drawn on December 19. Please let me know if she has any questions. Thank you. Georgie Stallworth APRN.JASEN * Telephone Encounter - Lorri Stevens LPN - 11/22/2022 10:53 AM EDT Pt notified of results of labs. Pt reports she would be interested in the Coumadin Clinic and is asking what the cost is. Pt is also asking if she is supposed to stay on the same coumadin dose. Please review and advise. Lorri Stevens LPN * Telephone Encounter - Meggan Bartlett LPN - 11/22/2022 9:50 AM EDT TC to pt. LM to call office, ask for triage nurse to get results. Meggan Bartlett LPN * Telephone Encounter - Georgie Stallworth APRN.CNP - 11/22/2022 9:47 AM EDT Can you please call the patient and let her know that her thyroid labs were normal. However she canstill complete the thyroid ultrasound for further evaluation. INR was 2.4. Can you please ask if she would like me to put her into the Coumadin clinic? They can manage her INR and the medication. Thank you. Georgie Stallworth APRN.JASEN documented in this encounterSt. Rita'S Hospital09-20-2023 Miscellaneous Notes* Telephone Encounter - Magaly Farmer RPh - 11/24/2022 4:12 PM EDT I have read the recommendations below and agree with plan. Clarified patient dosage and it is 2.5 mg TuThSat/ 5 mg all other days. Updated Med list Magaly Farmer, PharmD., CACP * Telephone Encounter - Marleny Saleem RN - 11/24/2022 3:[address] Tracy, Thank you for referring Laisha Walker to the Anticoagulation Clinic for follow up. A pharmacist will see your patient for fingerstick INR testing and counseling. Please note: if at any time your patient does not agree to follow our recommendations for follow up care for managing their INR via POCT, home INR meter, or lab, they may be discharged back to your service for follow up. By this referral, we will be following your patient under the consult agreement policy between the Department of Pharmacy and member of the [facility]. Under this policy, you agree to maintain a clinical relationship with the patient as defined by Medicare as seeing the patient at least once a year in the outpatient setting. Our pharmacists will monitor your patient's anticoagulation therapy, adjust doses, order labs and prescriptions for warfarin/enoxaparin/Vitamin K asappropriate, and bill for our visits and lab tests listing you as the responsible referring physician. If for any reason you do not wish to continue working under this collaborative practice agreement or if the patient no longer continues in your care, please contact us to discontinue this service. Thank you for your referral, Anticoagulation Management Services * Telephone Encounter - Marleny Saleem RN - 11/24/2022 3:48 PM EDT New Referral Contact: Pharmacist Anticoagulation [facility] The patient was called to discuss recent referral to the Anticoagulation Clinic. Mode of contact: home phone Referral date: 11/22 Referring physician: Flako Tracy Indication: Afib Goal INR: 2-3 The expected duration of therapy is Indefinite Preferred location for visits: Telemanagement Warfarin start date: 2019 Patient was previously instructed to take warfarin: 2.5mg THSat/5mg all other days Parenteral anticoagulant: No PT INR (no units) Date Value 04/30/2021 1.7 04/03/2021 2.2 02/18/2021 2.2 INR (no units) Date Value 11/19/2022 2.4 10/25/2022 2.6 09/27/2022 3.7 Hemoglobin (g/dL) Date Value 08/10/2022 12.8 02/27/2020 13.8 Hematocrit (%) Date Value 08/10/2022 40.2 02/27/2020 44.7 WBC (k/uL) Date Value 08/10/2022 8.25 02/27/2020 8.45 A/P: Spoke to patient. The patient: DOES agree to INR testing and consult agreement Patient scheduled for next INR Lab INR on this date: 12/19 Patient scheduled for POCT/New Ed at [facility] on this date: n/a Patient declines the warfarin education video. Mode of learning: not new to warfarin Next Action for Anticoag Management: TM 12/19 Marleny Saleem RN documented in this encounterSt. [facility] History of Past illness Narrative* Problem Noted Date Diagnosed Date Resolved Date Obesity, Class I, BMI 30-34.9 11/19/2022 01/22/2023 Renal carcinoma, right 05/20/201901/21 documented as of this encounter (statuses as of 01/25/2023) [facility] History of Past illness Narrative* Problem Noted Date Diagnosed Date Resolved Date Obesity, Class I, BMI 30-34.9 11/19/2022 01/22/2023 Renal carcinoma, right 05/20/201901/21 documented as of this encounter (statuses as of 01/26/2023) [address]15-2023 History of Past illness Narrative* Problem Noted Date Diagnosed Date Resolved Date Obesity, Class I, BMI 30-34.9 11/19/2022 01/22/2023 Renal carcinoma, right 05/20/201901/21 documented as of this encounter (statuses as of 02/03/2023) [address]15-2023 History of Past illness Narrative* Problem Noted Date Diagnosed Date Resolved Date Obesity, Class I, BMI 30-34.9 11/19/2022 01/22/2023 Renal carcinoma, right 05/20/201901/21 documented as of this encounter (statuses as of 02/04/2023) [facility] History of Past illness Narrative* Problem Noted Date Diagnosed Date Resolved Date Obesity, Class I, BMI 30-34.9 11/19/2022 01/22/2023 Renal carcinoma, right 05/20/201901/21 documented as of this encounter (statuses as of 02/11/2023) [facility] History of Past illness Narrative* Problem Noted Date Diagnosed Date Resolved Date Obesity, Class I, BMI 30-34.9 11/19/2022 01/22/2023 Renal carcinoma, right 05/20/201901/21 documented as of this encounter (statuses as of 05/10/2023) [facility] Instructions* Patient Instructions* Georgie Stallworth APRN.CNP - 11/19/2022 8:57 AM EDT Get labs completed Schedule appointment for thyroid ultrasound and urology. Continue to take antibiotic and stay well hydrated. Follow up pending test results. documented in this encounterSt. [facility]09-15-[facility] History of Present illness Narrative* Georgie Stallworth APRN.CNP - 11/19/2022 8:40 AM EDT This is a 72 year old female who presents today with: Patient presents with: Follow Up: follow up for UTI HISTORY OF PRESENT ILLNESS: Laisha Walker is a 72 year old female. Patient presents with: Follow Up: follow up for UTI Urgent care follow up. Recurrent UTI, was seen in [facility] on 11/15/2022, UA dip positive for cystitis, started on Keflex. Patient has been having recurrent UTIs last one was in October. Has had atotal of [place] over the past year. Symptoms improving with Keflex. Denies any abdominal, flank pain or hematuria. Staying well-hydrated. Refers that she has had more than 4 UTI's this year. HX kidney cancer, following with nephrology. Afib: Needs INR checked. Taking Coumadin. Needs refill. Thyroid: Abnormal Thyroid US in the past. Refers she has difficulty at choir with neck fullness. Neck feels tender. US thyroid: IMPRESSION: Goiter Thyroid nodule(s) is/are present. Surveillance imaging is recommended for one or more nodules as detailed in the synoptic report. TI-RADS Category: TR4 ACR Recommendation: TI-RADS 4 nodule. Follow up imaging in 1, 2, 3 and 5 years is advised. PAST MEDICAL HISTORY: PAST MEDICAL HISTORY Diagnosis Date Atrial fibrillation (HCC) SEES DR. BARRERA Carotid stenosis, asymptomatic CVA (cerebral vascular accident) (HCC) post op after 2017 bilateral knee replacements - per pt was told by neurology that it was a questionable stroke DVT (deep venous thrombosis) (HCC) post op Dysthymic disorder Depression (non-psychotic) Esophageal reflux Essential hypertension, benign Goiter, unspecified Goiter Liver cirrhosis (HCC) Macular degeneration (senile) of retina, unspecified Macular degeneration Other and unspecified hyperlipidemia Renal carcinoma, right (HCC) Type 2 diabetes mellitus (HCC) PAST SURGICAL HISTORY Procedure Laterality Date APPENDECTOMY 1963 RUPTURED APPENDIX ARTHRP KNE CONDYLE&PLATU MEDIAL&LAT COMPARTMENTS Bilateral 2017 CHOLECYSTECTOMY 1996 Cholecystectomy COLONOSCOPY [facility] EGD EUS 06/11/2020 benign leiomyoma GE junction, mild antral gastropathy, fatty pancreas, likely cirrhotic liver, prominent dilated portal vein NEPHRECTOMY PARTIAL Right 05/18/2019 robotic PAST SURGICAL HISTORY OF 07/15/1999 LEFT SHOULDER PAST SURGICAL HISTORY OF Left 2018 REPAIR OF LEFT KNEE FRACTURE TOTAL ABDOMINAL HYSTERECT W/WO RMVL TUBE OVARY 1984 Hysterectomy, JERRY ALLERGIES Gabapentin, Accupril [Quinapril Hcl], Bextra [Valdecoxib], Celebrex [Celecoxib], Codeine,Entex La [Phenylephrine-Guaifenesin], Glucophage [Metformin Hcl], Lipitor [Atorvastatin Calcium], Lodine [Etodolac], Naprosyn [Naproxen], Nsaids (Non-Steroidal Anti-Inflammatory Drug), Pravachol [Pravastatin Sodium], Sulfa (Sulfonamide Antibiotics), Ultracet [Tramadol-Acetaminophen], Vicodin [Hydrocodone-Acetaminophen], Vioxx [Rofecoxib], and Zocor [Simvastatin] MEDICATIONS Current Outpatient Medications Medication Sig cephALEXin (KEFLEX) 500 mg capsule Take 1 capsule by mouth twice daily for 7 days. losartan-hydroCHLOROthiazide (HYZAAR) 50-12.5 mg per tablet Take 0.5 tablets by mouth once daily. rosuvastatin (CRESTOR) 10 mg tablet Take 1 tablet by mouth daily at bedtime. warfarin (COUMADIN) 5 mg tablet 2.5 mg Mon/, 5 mg all other days or as directed glipiZIDE (GLUCOTROL) 5 mg tablet Take 1 tablets by mouth before breakfast and one tablet by mouth before dinner sotalol (BETAPACE) 120 mg tablet Take 1 tablet by mouth twice daily. docusate sodium (STOOL SOFTENER ORAL) Take by mouth as needed. OTC blood sugar diagnostic (BLOOD GLUCOSE TEST) test strip Test blood sugar(s) 1` times daily. Dx: Type2 DM - Uncontrolled E11.65 Insulin: No Lancets lancets Test blood sugar(s) 1` times daily. Dx: Type 2 DM - Uncontrolled E11.65 Insulin: No hydrocortisone (ANUSOL-HC) 2.5 % rectal cream by RECTAL route twice daily. multivitamin (MULTIPLE VITAMINS ORAL) Take by mouth. alcohol swabs (ALCOHOL PREP PADS) Apply 1 application to affected area once daily. loratadine (CLARITIN) 10 mg tablet Take 10 mg by mouth once daily. acetaminophen (TYLENOL) 325 mg tablet Take 500 mg by mouth. 2 TABLETS AT HS No current facility-administered medications for this visit. FAMILY HISTORY Problem Relation Age of Onset Heart Father [place] Hypertension Father Heart disease Father Arthritis Mother Hypertension Mother Dementia Mother other (DEPRESSION) Sister Diabetes Brother Heart Attack Brother Heart disease Brother other (DEPRESSION) Brother Hypertension Brother Stroke Sister Cancer No Family History none Social History Tobacco Use Smoking status: Never Smokeless tobacco: Never Vaping Use Vaping Use: Never used Substance Use Topics Alcohol use: Yes Comment: very seldom Drug use: No REVIEW OF SYSTEMS GENERAL: No weight loss, malaise or fevers/chills HEENT: throat pain NECK: Negative for lumps, goiter, pain and significant neck swelling RESPIRATORY: Negative for cough, hemoptysis, wheezing, dyspnea or shortness of breath CARDIOVASCULAR: Negative for chest pain, leg swelling, orthopnea, or palpitations GI: No nausea, vomiting, or diarrhea/constipation. No hematochezia/melena. No heartburn or reflux symptoms. : No history of dysuria, frequency or incontinence MUSCULOSKELETAL: Negative for joint pain or swelling. SKIN: Negative for lesions, rash, and itching ENDOCRINE: Negative for cold or heat intolerance, polyuria, polydipsia and goiter NEURO: No history of headaches, syncope, paralysis, seizures or tremors MOOD: Negative for depression, anxiety, or suicidal ideation. EXAM: BP 108/68 Pulse 61 Resp 16 Wt 89.4 kg (197 lb) SpO2 97% BMI 33.81 kg/m PHYSICAL EXAM: General Appearance: Well appearing, alert, in no acute distress, well-hydrated, well nourished.. Skin: Skin color, texture, turgor normal, no suspicious rashes or lesions. Head: Normocephalic, no masses, lesions, tenderness or abnormalities. Eyes: Anicteric sclera. Pupils are equally round and reactive to light. Extraocular movements are intact. . Neck: Positive findings: thyroid: enlarged. Lungs: Lungs clear to auscultation. No wheezing, rhonchi, rales.. Heart: RRR without murmur, gallop, or rubs. No ectopy. Extremities: No deformities, edema, skin discoloration, clubbing or cyanosis. Good capillary refill. . Peripheral Pulses: Normal, Capillary refill <2secs, strong peripheral pulses, Pulses palpable. Neurologic: Gait normal. Reflexes normal and symmetric. Sensation grossly intact.. ASSESSMENT/PLAN: 1. Recurrent UTI (urinary tract infection) - ICD9: 599.0, ICD10: N39.0 (primary diagnosis) recurrent - Patient education for prevention given - Continue to take antibiotic until finished. - Stay well-hydrated. - Recommend consult with urology due to recurrent UTIs. - CONSULT TO UROLOGY 2. Goiter - ICD9: 240.9, ICD10: E04.9 - US THYROID/PARATHYROID - TSH BLD - T4 FREE/FREE THYROX - T3 BLD - THYROID PEROXIDASE ANTIBODY BLOOD 3. Atrial fibrillation, unspecified type (HCC) - ICD9: 427.31, ICD10: I48.91 - PROTHROMBIN TIME/PT - WARFARIN 5 MG TABLET Follow-up pending test results or sooner as needed. Discussed treatment plan and patient voices understanding. Patient's questions answered appropriately. Medications and potential side effects were discussed and patient voices understanding. Georgie Stallworth APRN.MORTICIAN INVESTIGATOR This note was partially generated using [email or web address] recognition system. Note was reviewed for accuracy. There may be minor misspellings or grammar miscues with [employer] voice recognition. documented in this encounterSt. [facility]09-[facility]-2023 Miscellaneous Notes* Telephone Encounter - Luli Dowling MA - 11/18/2022 9:57 AM EDT Pt states that symptoms are starting to improve, and that she has appt with her PCP tomorrow. Luli Dowling MA * Telephone Encounter - Arielle Lara APRN.CNP - 11/16/2022 7:44 PM EDT Call and verify that patient symptoms are improving. If patient's symptoms or not improving she needs to follow-up with PCP for further testing. documented in this encounterSt. Rita'[facility]09-11-2023 Miscellaneous Notes* Addendum Note - Edgard Hurley APRN.CNP - 11/15/2022 3:47 PM EDTAddended by: EDGARD HURLEY on: 11/15/2022 03:47 PM Modules accepted: Orders documented in this encounterSt. Rita'S Hospital09-11-2023 History of Present illness Narrative* Edgard Hurley APRN.CNP - 11/15/2022 3:02 PM EDT Subjective HPI A nontoxic appearing female presents to urgent care with chief complaint of possible UTI. Duration of symptoms today. Associated symptoms dysuria, frequency, and urgency. Patient has history of UTIs in past with similar signs and symptoms. Last UTI October of this year. Positive for E. coli positive sensitive for Keflex. Patient denies the use of any [id number] medications or home remedies for symptom management. Patient states pain is a 3/10. Patient denies any fevers, flank pain, abdominal pain, nausea, vomiting, vaginal discharge. History of renal carcinoma. Past medical history prescription medication use allergies reviewed. .Patient presents with: Urinary Frequency: and pain with urination x this am PAST MEDICAL HISTORY Diagnosis Date Atrial fibrillation (HCC) SEES DR. BARRERA Carotid stenosis, asymptomatic CVA (cerebral vascular accident) (HCC) post op after 2017 bilateral knee replacements - per pt was told by neurology that it was a questionable stroke DVT (deep venous thrombosis) (HCC) post op Dysthymic disorder Depression (non-psychotic) Esophageal reflux Essential hypertension, benign Goiter, unspecified Goiter Liver cirrhosis (HCC) Macular degeneration (senile) of retina, unspecified Macular degeneration Other and unspecified hyperlipidemia Renal carcinoma, right (HCC) Type 2 diabetes mellitus (HCC) PAST SURGICAL HISTORY Procedure Laterality Date APPENDECTOMY 1963 RUPTURED APPENDIX ARTHRP KNE CONDYLE&PLATU MEDIAL&LAT COMPARTMENTS Bilateral 2017 CHOLECYSTECTOMY 1995 Cholecystectomy COLONOSCOPY [facility] EGD EUS 06/11/2020 benign leiomyoma GE junction, mild antral gastropathy, fatty pancreas, likely cirrhotic liver, prominent dilated portal vein NEPHRECTOMY PARTIAL Right 05/18/2019 robotic PAST SURGICAL HISTORY OF 07/15/1999 LEFT SHOULDER PAST SURGICAL HISTORY OF Left 2018 REPAIR OF LEFT KNEE FRACTURE TOTAL ABDOMINAL HYSTERECT W/WO RMVL TUBE OVARY 1984 Hysterectomy, JERRY ALLERGIES Gabapentin, Accupril [Quinapril Hcl], Bextra [Valdecoxib], Celebrex [Celecoxib], Codeine,Entex La [Phenylephrine-Guaifenesin], Glucophage [Metformin Hcl], Lipitor [Atorvastatin Calcium], Lodine [Etodolac], Naprosyn [Naproxen], Nsaids (Non-Steroidal Anti-Inflammatory Drug), Pravachol [Pravastatin Sodium], Sulfa (Sulfonamide Antibiotics), Ultracet [Tramadol-Acetaminophen], Vicodin [Hydrocodone-Acetaminophen], Vioxx [Rofecoxib], and Zocor [Simvastatin] MEDICATIONS losartan-hydroCHLOROthiazide (HYZAAR) 50-12.5 mg per tablet Take 0.5 tablets by mouth once daily. rosuvastatin (CRESTOR) 10 mg tablet Take 1 tablet by mouth daily at bedtime. warfarin (COUMADIN) 5 mg tablet 2.5 mg Mon/Th, 5 mg all other days or as directed glipiZIDE (GLUCOTROL) 5 mg tablet Take 1 tablets by mouth before breakfast and one tablet by mouth before dinner sotalol (BETAPACE) 120 mg tablet Take 1 tablet by mouth twice daily. docusate sodium (STOOL SOFTENER ORAL) Take by mouth as needed. OTC blood sugar diagnostic (BLOOD GLUCOSE TEST) test strip Test blood sugar(s) 1` times daily. Dx: Type2 DM - Uncontrolled E11.65 Insulin: No Lancets lancets Test blood sugar(s) 1` times daily. Dx: Type 2 DM - Uncontrolled E11.65 Insulin: No hydrocortisone (ANUSOL-HC) 2.5 % rectal cream by RECTAL route twice daily. multivitamin (MULTIPLE VITAMINS ORAL) Take by mouth. alcohol swabs (ALCOHOL PREP PADS) Apply 1 application to affected area once daily. loratadine (CLARITIN) 10 mg tablet Take 10 mg by mouth once daily. acetaminophen (TYLENOL) 325 mg tablet Take 500 mg by mouth. 2 TABLETS AT HS FAMILY HISTORY Problem Relation Age of Onset Heart Father [place] Hypertension Father Heart disease Father Arthritis Mother Hypertension Mother Dementia Mother other (DEPRESSION) Sister Diabetes Brother Heart Attack Brother Heart disease Brother other (DEPRESSION) Brother Hypertension Brother Stroke Sister Cancer No Family History none Social History Tobacco Use Smoking status: Never Smokeless tobacco: Never Vaping Use Vaping Use: Never used Substance Use Topics Alcohol use: Yes Comment: very seldom Drug use: No BP 122/76 Pulse 70 Temp 36.8 C (98.2 F) Resp 16 Wt 90.7 kg (200 lb) SpO2 96% BMI 34.33 kg/m Review of Systems Constitutional: Negative for chills, fever and malaise/fatigue. HENT: Negative for congestion, ear discharge, ear pain, sinus pain and sore throat. Eyes: Negative for blurred vision, pain, discharge and redness. Respiratory: Negative for cough, hemoptysis, sputum production, shortness of breath, wheezing and stridor. Cardiovascular: Negative for chest pain. Gastrointestinal: Negative for abdominal pain, diarrhea, nausea and vomiting. Genitourinary: Positive for dysuria, frequency and urgency. Negative for flank pain and hematuria. Musculoskeletal: Negative for myalgias. Skin: Negative for itching and rash. Neurological: Negative for dizziness and headaches. Objective Physical Exam Vitals and nursing note reviewed. Constitutional: General: She is not in acute distress. Appearance: She is not toxic-appearing or diaphoretic. HENT: Head: Normocephalic. Jaw: No trismus. Right Ear: Hearing normal. No decreased hearing noted. No drainage, swelling or tenderness. Tympanic membrane is not perforated, erythematous or bulging. Left Ear: Hearing normal. No decreased hearing noted. No drainage, swelling or tenderness. Tympanicmembrane is not perforated, erythematous or bulging. Nose: Nose normal. Mouth/Throat: Pharynx: Uvula midline. No uvula swelling. Tonsils: No tonsillar abscesses. Eyes: Pupils: Pupils are equal, round, and reactive to light. Cardiovascular: Rate and Rhythm: Normal rate and regular rhythm. Pulses: Normal pulses. Pulmonary: Effort: Pulmonary effort is normal. No respiratory distress. Breath sounds: Normal breath sounds. Chest: Chest wall: No tenderness. Abdominal: General: Bowel sounds are normal. There is no distension. Palpations: Abdomen is soft. Abdomen is not rigid. Tenderness: There is no abdominal tenderness. There is no right CVA tenderness, left CVA tenderness, guarding or rebound. Negative signs include Swann's sign and McBurney's sign. Musculoskeletal: General: No tenderness. Cervical back: Normal range of motion. Lymphadenopathy: Head: Right side of head: No submental, submandibular, tonsillar, preauricular, posterior auricular or occipital adenopathy. Left side of head: No submental, submandibular, tonsillar, preauricular, posterior auricular or occipital adenopathy. Cervical: Right cervical: No superficial or posterior cervical adenopathy. Left cervical: No superficial or posterior cervical adenopathy. Skin: General: Skin is warm and dry. Findings: No rash. Neurological: General: No focal deficit present. Mental Status: She is alert and oriented to person, place, and time. ASSESSMENT/PLAN: 1. Urinary frequency - ICD9: 788.41, ICD10: R35.0 (primary diagnosis) - UA DIP, URINE (POC) 2. Burning with urination - ICD9: 788.1, ICD10: R30.0 - UA DIP, URINE (POC) Leukocytes nitrites and blood noted on urine dip. Treat for acute cystitis. Placed on Keflex. Urineculture ordered. Patient will follow up with PCP to discuss recurrent UTIs. Patient was educated onsupportive therapies. Patient will follow up with primary care provider as needed. Patient was instructed to immediately proceed to emergency room for any new, worsening, or symptoms lasting longer than anticipated. The patient's clinical presentation is otherwise unremarkable at this time. Based on exam and clinical finding, the patient is stable for discharge. Plan of care was discussed with patient. Patient verbalizes understanding and agrees to plan of care. This note was generated using [employer] software. It may contain errors in wording, punctuation, or spelling. Edgard Hurley APRN.JASEN documented in this encounterSt. Rita'S [facility]09-11-2023 Miscellaneous Notes* Telephone Encounter - Meggan Bartlett LPN - 11/15/2022 2:34 PM EDT Patient notified of recommendations, verbalizes understanding of instructions. Pt is going to . Meggan Bartlett LPN * Telephone Encounter - Otoniel King APRN.CNP - 11/15/2022 2:23 PM EDT Patient would need another evaluation including another urinalysis to determine if she has ongoing urinary tract infection. Otoniel King APRN.CNP * Telephone Encounter - Lorri Stevens LPN - 11/15/2022 1:39 PM EDT Pt calls to report she was seen in UC and was prescribed Keflex bid x 7 days. Pt reports she was feeling better but over the weekend started having dysuria and urgency again. Pt is asking if another round of atb could be sent to the pharmacy. Lorri Stevens LPN documented in this encounterSt. Rita'[facility] Hospital08-29-2023 Miscellaneous Notes* Telephone Encounter - Jessica Lara APRN.CNP - 11/02/2022 8:25 AM EDT Sensitive to cefazolin - continue keflex * Telephone Encounter - Ratna Magana - 11/01/2022 2:22 PM EDT [facility] lab states that keflex is not appropriate for patient, states it dropped of susceptible list. Will need to switch antibiotics. Ratna Magana * Telephone Encounter - Arielle Lara APRN.CNP - 11/01/2022 12:27 PM EDT Call the lab and make sure Keflex is an appropriate antibiotic thank you documented in this encounterSt. Rita'S Hospital08-29-2023 Miscellaneous Notes* Telephone Encounter - Jessica Lara APRN.CNP - 11/02/2022 8:21 AM EDT Keflex is susceptible, continue mediation. Follow up with pcp Jessica Lara APRN.CNP * Telephone Encounter - Meggan Bartlett LPN - 11/01/2022 3:16 PM EDT Patient notified of results, verbalizes understanding of instructions. Meggan Bartlett LPN * Telephone Encounter - Arielle Lara APRN.CNP - 11/01/2022 2:42 PM EDT Please call patient and notify her that we are waiting on a return phone call from infectious disease to see what the most appropriate antibiotic would be with complex medical history. documented in this encounterSt. Rita'S Hospital08-28-2023 Miscellaneous Notes* Telephone Encounter - Arielle Lara APRN.CNP - 11/01/2022 4:16 PM EDT Patient notified her of what infectious disease recommended. Patient is going to stay on the Keflex. Patient will follow-up with primary care provider to check her INR. Patient will also follow-up ifsigns and symptoms seem to be getting worse not better. Patient was okay with this care plan. documented in this encounterSt. Rita'S Hospital08-28-2023 History of Present illness Narrative* Erlinda Urias MD - 11/01/2022 3:42 PM EDT Infectious Disease E consult response In response to your e consult Infectious Disease request for Ms. Walker regarding 72 year old female patient, Laisha Walker who is being treated for UTI. Patient has significant contraindications. Can you please advise best course of treatment given her complex medical history and coumadin usage. Thank you. My clinical question: what antibiotic is okay? History of present illness provided through requesting provider documentation and current treatmentplan was reviewed Based on the patient history, my impression is as follows:\\ 72 year old female with DM type II, liver cirrhosis, depression, HTN, goiter, DVT, bilateral knee replacement with CVA post op 2017, afib Seen at [facility] 10/28/2022 for burning, frequency. UA dipstick with moderate leukocytes. Urine culture with >100K E coli Susceptibility Escherichia coli (1) Antibiotic Interpretation Method Status Ampicillin Susceptible MINIMUM INHIBITORY CONCENTRATION (VIZION) Final Cefazolin Susceptible MINIMUM INHIBITORY CONCENTRATION (VIZION) Final Ceftriaxone Susceptible MINIMUM INHIBITORY CONCENTRATION (VIZION) Final Cefepime Susceptible MINIMUM INHIBITORY CONCENTRATION (VIZION) Final Ertapenem Susceptible MINIMUM INHIBITORY CONCENTRATION (VIZION) Final Meropenem Susceptible MINIMUM INHIBITORY CONCENTRATION (VIZION) Final Ampicillin/Sulbact Susceptible MINIMUM INHIBITORY CONCENTRATION (VIZION) Final Piperacillin/Tazobac Susceptible MINIMUM INHIBITORY CONCENTRATION (VIZION) Final Gentamicin Susceptible MINIMUM INHIBITORY CONCENTRATION (VIZION) Final Tobramycin Susceptible MINIMUM INHIBITORY CONCENTRATION (VIZION) Final Trimeth sulfameth Susceptible MINIMUM INHIBITORY CONCENTRATION (VIZION) Final Nitrofurantoin Susceptible MINIMUM INHIBITORY CONCENTRATION (VIZION) Final Ciprofloxacin MARS-PÉREZ SUSCEPTIBILITY Final See E-test for result Ciprofloxacin Susceptible MINIMUM INHIBITORY CONCENTRATION(E-TEST) Final Avoid quinolones and bactrim as this would interact with coumadin Keflex is option but has some risk for elevated INR so would have to watch Nitrofurantoin does not have any interaction when looking at lexicomp, but would need updated creatinine as should avoid if crcl <30 and Erlinda Urias MD Infectious Disease Pager [phone] documented in this encounterSt. Rita'S Hospital08-22-2023 Miscellaneous Notes* Telephone Encounter - Trip Angeles Ma - 10/26/2022 11:47 AM EDT Viverae message sent to pt notifying her of response below from Provider. Tracker updated. Trip Angeles Ma * Telephone Encounter - Flako Tracy MD - 10/26/2022 11:23 AM EDT INR good at 2.6 Stay on 2.5 mg T/TH/Sun, 5 mg all other days. Recheck in 4 weeks Flako Tracy MD * Telephone Encounter - Cheryl Harrison Ma - 10/26/2022 8:35 AM EDT Last INR: INR 2.6 10/25/2022 Current dose of coumadin is: 2.5 mg T/TH/Sun, 5 mg all other days. Last date of dose change: 09/27/22. Previous INR (date and result): 09/27/22 INR: 3.7 Additional Clinical Information or narrative: no Notify pt via [employer]. documented in this encounterSt. Rita'S Hospital08-14-2023 Miscellaneous Notes* Telephone Encounter - Cheryl Harrison Ma - 10/18/2022 3:40 PM EDT Pt notified and voiced understanding. Tracker and med list updated. Cheryl Harrison Ma * Telephone Encounter - Flako Tracy MD - 10/18/2022 1:16 PM EDT OK to refill as ordered She may stay on coumadin 2.5 mg on , , Tue; 5 mg all other days and check INR in 1 week Flako Tracy MD * Telephone Encounter - Micaela Cooper LPN - 10/18/2022 12:03 PM EDT 1) Pt calling for refill below. She takes 1/2 tablet and has been doing this for a long time. 2). Pt not certain what to do with her coumadin and INR. She was in ER last Tuesday10/13/22 with hemorrhoid problem. Pt saw a specialist 10-15-22. She was told to hold her coumadin on because she thought there was going to be a procedure done which she ended up not having done. Pt started back on her coumadin taking 2.5 on , and Tuesday. Pt not when to repeat her INR and if she is to continue on same dose. Patient has been identified by name and date of : Yes, Provider Dr. Tracy Date 10/18/22 Time 12:13 pm Patient phones for refill(s): Requested Prescriptions Pending Prescriptions Disp Refills losartan-hydroCHLOROthiazide (HYZAAR) 50-12.5 mg per tablet 45 tablet 3 Sig: Take 0.5 tablets by mouth once daily. Date of last office visit in primary care: 08/10/22 next apt 02/09/23 Last 2 Encounter Wt Readings: Date: Wt: 08/10/2022 91.6 kg (201 lb 14.4 oz) 07/12/2022 91.2 kg (201 lb) Previous labs/tests for medication: Blood Pressure: BUN (mg/dL) Date Value 07/26/2022 28 04/30/2021 25 Sodium (mmol/L) Date Value 07/26/2022 136 04/30/2021 134 Last 1 Encounter BP Readings: Date: BP: 08/10/2022 118/70 Please advise. Thank you. Micaela Cooper LPN documented in this encounterSt. Rita'S Hospital08-10-2023 Miscellaneous Notes* Telephone Encounter - Flako Tracy MD - 10/14/2022 5:14 PM EDT Done in other note; OK to hold today Flako Tracy MD * Telephone Encounter - Clair Heredia RN - 10/14/2022 1:21 PM EDT Patient calling to let PCP know she was seen @ [facility] ER for rectal bleeding. She says she is scheduled to see Dr. Sun for possible ? I&D tomorrow. She is asking if okay to hold Coumadin tonight? She states her INR yesterday was 2.6. Clair Heredia, RN documented in this encounterSt. Rita'S Hospital08-10-2023 Miscellaneous Notes* Telephone Encounter - Cheryl Harrison Ma - 10/14/2022 5:10 PM EDT Pt notified. Cheryl Harrison Ma * Telephone Encounter - Flako Tracy MD - 10/14/2022 5:09 PM EDT Yes, she may hold her coumadin tonight Flako Tracy MD * Telephone Encounter - Tresa Noriega LPN - 10/14/2022 1:30 PM EDT Patient returned call and went over notes below from Dr Tracy with understanding. Patient said she has appt on Tuesday with Dr Sun may have to do I&D. She has 6 to 7 hemorrhoids that need to be taken care of having problems for past 6 days now. Patient asking if she should hold her coumadin tonight? Please advise * Telephone Encounter - Simi Jung RN - 10/14/2022 1:15 PM EDT Called and left a voicemail for the Patient to call back and ask for a nurse to receive the providers message. Simi Jung RN * Telephone Encounter - Flako Tracy MD - 10/14/2022 11:44 AM EDT I agree with using hydrocortisone cream, may also do warm sitz baths, and make sure stools are softso that she is not straining. If the hemorrhoids do not improve then she should be see; may need surgical evaluation. Flako Tracy MD * Telephone Encounter - Nik Kate RN - 10/13/2022 3:25 PM EDT Patient calls to report rectal bleeding. Nurse triage completed. Protocol recommends ED now or PCP triage. Patient not wanting to go to the ED and asking for provider recommendation. Patient reports she has hemorrhoids and uses hydrocortisone cream twice daily which usually helps but is currently using 5 times daily with no relief. Patient reports if bleeding worsens will go to ED. Reason for Disposition Taking Coumadin (warfarin) or other strong blood thinner, or known bleeding disorder (e.g., thrombocytopenia) Answer Assessment - Initial Assessment Questions 1. APPEARANCE of BLOOD: Bright red. Patient reports that it occurs each time she has a bowel movement. Sometimes it is passed separately, on the surface, or mixed with the stool. Patient reports rectal pain internal and external. Patient reports it isn't uncommon for these symptoms but they don't generally last this long. 2. AMOUNT: Sometimes it is just on the bowel movement. Sometimes on the toilet tissue, and sometimes it fills the toilet bowel (patient reports filling the toilet bowel maybe once a day). 3. FREQUENCY: Every time she has a bowel movement. 4. ONSET: On-going for years. Started this time on Tuesday night with constipation that was relievedin 3-4 hours and has been having trouble on and off since. 5. DIARRHEA: No 6. CONSTIPATION: Starting on Tuesday 7. RECURRENT SYMPTOMS: Yes for years. 8. BLOOD THINNERS: Yes, Coumadin 5 mg 4 days a week and Coumadin 2.5 mg 3 days a week. Patient is due for an INR. 9. OTHER SYMPTOMS: Chronic left side abdominal pain. Occasional dizziness. No vomiting or fever. Protocols used: Rectal [id number] documented in this encounterSt. Rita'S Hospital06-21-2023 History of Present illness Narrative* Erlinda Allison RDMS - 08/25/2022 10:45 AM EDT Radiology Service Progress Note PATIENT NAME: Laisha Walker DATE OF SERVICE: August 25, 2022 TIME: 3:23 PM PATIENT IDENTITY VERIFICATION COMPLETED USING TWO (2) IDENTIFIERS: Name and Date of confirmedby patient verbally. FALL SCREENING: Has the patient had 2 falls in the last year or 1 fall with injury or currently using an Ambulatory Assistive Device (Walker, Cane, Wheelchair, Crutches, etc.)? No PATIENT GENDER DATA: Female. status: : No status: NO. PATIENT RELEVANT IMPLANT DATA REVIEWED: Not Applicable RADIOLOGY DEPARTMENT: Ultrasound PERIPHERAL IV DATA: Not applicable SIGNED BY: Erlinda Allison RDMS RVT August 25, 2022 3:23 PM documented in this encounterSt. Rita'S Hospital06-21-2023 History of Present illness Narrative* Kourtney Grimm, RT(R) - 08/25/2022 10:00 AM EDT Radiology Service Progress Note DATE OF SERVICE: August 25, 2022 TIME: 1:45 PM PATIENT IDENTITY VERIFICATION COMPLETED USING TWO (2) STANDARD IDENTIFIERS: Name and Date of confirmed by patient verbally. FALL SCREENING: Has the patient had 2 falls in the last year or 1 fall with injury or currently using an Ambulatory Assistive Device (Walker, Cane, Wheelchair, Crutches, etc.)? No PATIENT GENDER DATA: Female. status: : No status: NO. PATIENT RELEVANT IMPLANT DATA REVIEWED: Yes ALLERGIES: Reviewed and unchanged CONTRAST ALLERGY: NO. EXAM: CT -CONTRAST INDUCED NEPHROPATHY RISK FACTORS: Patient age > 60 years CREATININE: Creatinine Date Value Ref Range Status 07/26/2022 1.04 (H) 0.58 - 0.96 mg/dL Final 01/20/2022 0.94 mg/dL Final 10/30/2021 1.03 mg/dL Final Estimated Glomerular Filtration Rate Date Value Ref Range Status 07/26/2022 57 (L) >=60 mL/min/1.73m Final Comment: Estimated Glomerular Filtration Rate (eGFR) is calculated using the 2020 CKD-EPI creatinine equation. This equation utilizes serum creatinine, sex, and age as parameters. The creatinine assay has traceable calibration to isotope dilution- mass spectrometry. Refer to KDIGO guidelines for clinical interpretation. In patients with unstable renal function, e.g. those with acute kidney injury, the eGFRmay not accurately reflect actual GFR. eGFR- Date Value Ref Range Status 04/30/2021 >60 Final P.O.C.T. RESULTS: POC done: Yes, See Lab Tab August 25, 2022 TREATMENT: N/A PERIPHERAL IV DATA: Ambulatory: A peripheral IV was started in the Left antecubital site with a Angio cath: 22 gauge. RADIOLOGY DEPARTMENT: CT; Exam(s) Completed: Abdomen/Pelvis SIGNATURE: RT John(R) PATIENT NAME: Laisha Walker DATE: August 25, 2022 TIME: 1:45 PM documented in this encounterSt. Rita'S Hospital06-08-2023 Miscellaneous Notes* Telephone Encounter - Cheryl Harrison Ma - 08/12/2022 4:48 PM EDT Pt notified and voiced understanding. Transferred to PSS to set up CT and US. Cheryl Harrison Ma * Telephone Encounter - Flako Tracy MD - 08/12/2022 4:30 PM EDT Please notify patient that her lab results look OK. It does look like she should get another CT abd to follow up on her renal cell cancer monitoring, and an US of her thyroid to follow her thyroid nodules Flako Tracy MD . documented in this encounterSt. Rita'S Hospital06-06-2023 History of Present illness Narrative* Flako Tracy MD - 08/10/2022 10:00 AM EDT Chief Complaint Patient presents with: 6 Month Exam HPI Laisha Walker is a 72 year old female who presents here today for a 6 month follow up. Pt here today for a 6 month follow up. Chronic constipation, uses stool softener, 2 tabs daily. Will use Anusol and rectal cream prn. Doesget frequent UTI's. She states she can not eat anything without burping all day. Occ nausea and acid in the throat. She is eating less due to that. HTN: Denies checking BP at home or having symptoms of chest pain, sob or dizziness. Follows with Cardio, Dr. Christie. On current regimen of Sotalol 120 mg bid and Hyzaar 50-12.5 mg daily. DM: Checks sugars 3 x per week at different times, FBS running 157 or 170. On current regimen of Glucotrol 5 mg bid. When sugars get to 110 she feels hungry like her sugars getting too low, will eat a little bit of peanut butter, this occurs occasionally. Denies any neuropathy symptoms. Lipids: Tries to watch diet. Denies any formal exercise due to pain. Will do stretches. On current regimen of Crestor 5 mg daily. She has not tolerated other Statins in the past, made side pain worse. Afib: Takes Coumadin daily, monitored by this office. She has noticed some palpitations. Pain: Chronic continued left sided hip, groin and back pain. She states it is worse as it now seem to be affecting her right arm. Neuropathy in both feet. Leg cramping is severe. She has been trying to get up and move more, exercise, stretch but that has not helped. She was suppose to go to PT but stated she would have to pay $40 a visit and stated she could not afford that. She takes Tylenol at bedtime and occ during the day if needed. She is not able to take much else due to being on Coumadin. She limits her Tylenol intake due to her liver. She states she has to sit while cooking and has totake breaks when she is doing dished because her back will start to hurt. She states she has tried heat and ice in the past but it does not help much, occ might help the back pain. Lump: to the palm of the right hand. She stated she recently had partials give to use but she can't use them, makes it hard to ear. She has not returned to her dentist because it was a bad experience and too costly. Tired a lot more often the 4-5 months. She states she can lay down and take a 2- 3 hour nap several times a day and still sleep at night. She thinks she sleeps well at night. Liver: She was getting Abd/pel CT done routinely to monitor the liver every 3-6 months. States she has not followed up with Gastro Dr. Ugo Coates who was doing the CT. Last visit and CT done in 2020. History of renal cell cancer, has not had follow up CT since 2020 Past medical history, appointments, medications, allergies reviewed. Previous Medical History PAST MEDICAL HISTORY Diagnosis Date Atrial fibrillation (HCC) SEES DR. BARRERA Carotid stenosis, asymptomatic CVA (cerebral vascular accident) (HCC) post op after 2017 bilateral knee replacements - per pt was told by neurology that it was a questionable stroke DVT (deep venous thrombosis) (HCC) post op Dysthymic disorder Depression (non-psychotic) Esophageal reflux Essential hypertension, benign Goiter, unspecified Goiter Liver cirrhosis (HCC) Macular degeneration (senile) of retina, unspecified Macular degeneration Other and unspecified hyperlipidemia Renal carcinoma, right (HCC) Type 2 diabetes mellitus (HCC) Previous Surgical History PAST SURGICAL HISTORY Procedure Laterality Date APPENDECTOMY 1963 RUPTURED APPENDIX ARTHRP KNE CONDYLE&PLATU MEDIAL&LAT COMPARTMENTS Bilateral 2017 CHOLECYSTECTOMY 1995 Cholecystectomy COLONOSCOPY [facility] EGD EUS 06/11/2020 benign leiomyoma GE junction, mild antral gastropathy, fatty pancreas, likely cirrhotic liver, prominent dilated portal vein NEPHRECTOMY PARTIAL Right 05/18/2019 robotic PAST SURGICAL HISTORY OF 07/15/1999 LEFT SHOULDER PAST SURGICAL HISTORY OF Left 2018 REPAIR OF LEFT KNEE FRACTURE TOTAL ABDOMINAL HYSTERECT W/WO RMVL TUBE OVARY 1985 Hysterectomy, JERRY Family History FAMILY HISTORY Problem Relation Age of Onset Heart Father [place] Hypertension Father Heart disease Father Arthritis Mother Hypertension Mother Dementia Mother other (DEPRESSION) Sister Diabetes Brother Heart Attack Brother Heart disease Brother other (DEPRESSION) Brother Hypertension Brother Stroke Sister Cancer No Family History none Patient Allergies ALLERGIES Allergen Reactions Gabapentin Other: See Comments Dizziness Accupril [Quinapril* Bextra [Valdecoxib] GI Upset Celebrex [Celecoxib] GI Upset Codeine Entex La [Phenyleph* Glucophage [Metform* Lipitor [Atorvastat* Lodine [Etodolac] GI Upset Naprosyn [Naproxen] Nsaids (Non-Steroid* Unknown Pravachol [Pravasta* Other: See Comments Worsening abdominal pain Sulfa (Sulfonamide * GI Upset Ultracet [Tramadol-* Vicodin [Hydrocodon* Vioxx [Rofecoxib] Zocor [Simvastatin] Current Medications Current Outpatient Medications on File Prior to Visit Medication Sig warfarin (COUMADIN) 5 mg tablet 2.5 mg Mon/Thurs, 5 mg all other days or as directed rosuvastatin (CRESTOR) 5 mg tablet Take 1 tablet by mouth once daily. glipiZIDE (GLUCOTROL) 5 mg tablet Take 1 tablets by mouth before breakfast and one tablet by mouth before dinner glipiZIDE (GLUCOTROL) 5 mg tablet Take 1 tablets by mouth before breakfast and one tablet by mouth before dinner sotalol (BETAPACE) 120 mg tablet Take 1 tablet by mouth twice daily. docusate sodium (STOOL SOFTENER ORAL) Take by mouth as needed. OTC blood sugar diagnostic (BLOOD GLUCOSE TEST) test strip Test blood sugar(s) 1` times daily. Dx: Type2 DM - Uncontrolled E11.65 Insulin: No Lancets lancets Test blood sugar(s) 1` times daily. Dx: Type 2 DM - Uncontrolled E11.65 Insulin: No ondansetron orally disintegrating (ZOFRAN ODT) 4 mg disintegrating tablet Take 1 tablet by mouth every 8 hours as needed for nausea/vomiting. losartan-hydroCHLOROthiazide (HYZAAR) 50-12.5 mg per tablet Take 1 tablet by mouth once daily. hydrocortisone (ANUSOL-HC) 2.5 % rectal cream by RECTAL route twice daily. multivitamin (MULTIPLE VITAMINS ORAL) Take by mouth. alcohol swabs (ALCOHOL PREP PADS) Apply 1 application to affected area once daily. loratadine (CLARITIN) 10 mg tablet Take 10 mg by mouth once daily. acetaminophen (TYLENOL) 325 mg tablet Take 500 mg by mouth. 2 TABLETS AT HS No current facility-administered medications on file prior to visit. Social History Social History Tobacco Use Smoking status: Never Smokeless tobacco: Never Vaping Use Vaping Use: Never used Substance Use Topics Alcohol use: Yes Comment: very seldom Drug use: No EXAM: BP 118/70 Pulse 74 Resp 16 Wt 91.6 kg (201 lb 14.4 oz) BMI 34.66 kg/m General Appearance: Well appearing, alert, in no acute distress, well-hydrated, well nourished.. Lungs: Lungs clear to auscultation. No wheezing, rhonchi, rales.. Heart: RRR without murmur, gallop, or rubs. No ectopy. Health Maintenance List HEPATITIS A(1 of 2 - Risk 2-dose series) Never done PNEUMOCOCCAL: 65+(1 - PCV) Never done DIABETIC FOOT EXAM Never done BP CONTROLLED (<130/80) Never done SHINGRIX VACCINE(1 of 2) Never done HEPATITIS B(1 of 3 - Risk 3-dose series) Never done COVID-19 VACCINE(4 - Booster for Pfizer series) due on 07/14/2021 ADVANCE DIRECTIVE DISCUSSION Never done DEPRESSION ASSESSMENT Never done URINE ALBUMIN:CREATININE RATIO due on 04/15/2022 DILATED RETINAL EXAM due on 09/15/2022 MAMMOGRAM due on 12/16/2022 LDL CHOLESTEROL due on 01/20/2023 HBA1C due on 01/26/2023 ANNUAL PCP TEAM CHRONIC DISEASE VISIT due on 02/09/2023 DTAP,TDAP,TD(2 - Td or Tdap) due on 09/09/2023 COLORECTAL CANCER SCREENING due on 05/19/2025 BONE DENSITY Completed INFLUENZA Completed HEPATITIS C SCREENING Completed Data reviewed Appointment on 08/06/2022 Component Date Value Cholesterol, Total 08/06/2022 227 (A) Triglyceride 08/06/2022 347 (A) HDL Cholesterol 08/06/2022 46 Non HDL Cholesterol 08/06/2022 181 (A) Fasting Time 08/06/2022 13 VLDL Cholesterol 08/06/2022 69 (A) TC:HDL Ratio 08/06/2022 4.93 LDL Cholesterol 08/06/2022 112 (A) LDL:HDL Ratio 08/06/2022 2.43 PT Sec 08/06/2022 24.5 (A) INR 08/06/2022 2.5 (A) Appointment on 07/26/2022 Component Date Value PT Sec 07/26/2022 34.5 (A) INR 07/26/2022 3.6 (A) Protein, Total 07/26/2022 7.7 Albumin 07/26/2022 4.1 Calcium, Total 07/26/2022 10.4 (A) Bilirubin, Total 07/26/2022 0.5 Alkaline Phosphatase 07/26/2022 76 AST 07/26/2022 39 (A) ALT 07/26/2022 23 Glucose 07/26/2022 255 (A) BUN 07/26/2022 28 (A) Creatinine 07/26/2022 1.04 (A) Sodium 07/26/2022 136 Potassium 07/26/2022 4.7 Chloride 07/26/2022 102 CO2 07/26/2022 22 Anion Gap 07/26/2022 12 Estimated Glomerular Guillaume* 07/26/2022 57 (A) Hemoglobin A1C 07/26/2022 7.7 (A) Estimated Average Glucose 07/26/2022 174 Office Visit on 07/12/2022 Component Date Value GLUCOSE UA (POCT) 07/12/2022 100 (A) BILIRUBIN UA (POCT) 07/12/2022 Small (A) KETONE UA (POCT) 07/12/2022 Trace SPECIFIC GRAVITY UA (POC* 07/12/2022 1.020 HEMOGLOBIN/BLOOD UA (PO* 07/12/2022 Large (A) PH UA (POCT) 07/12/2022 5.0 PROTEIN UA (POCT) 07/12/2022 >=300 (A) UROBILINOGEN UA (POCT) 07/12/2022 1.0 NITRITE UA (POCT) 07/12/2022 Positive (A) LEUKOCYTES UA (POCT) 07/12/2022 Small (A) COLOR UA (POCT) 07/12/2022 Dark yellow CLARITY UA (POCT) 07/12/2022 Slightly Cloudy Culture, Urine 07/12/2022 >=100,000 CFU/ml Escherichia coli (A) ASSESSMENT/PLAN: 1. Atrial fibrillation, unspecified type (HCC) - ICD9: 427.31, ICD10: I48.91 (primary diagnosis) Continue current medications. 2. Hyperlipidemia, mixed - ICD9: 272.2, ICD10: E78.2 - Improving control - Increase rosuvastatin (Crestor) - Counseled on healthy diet and regular exercise 3. Type 2 diabetes mellitus without complication, without long-term current use of insulin (HCC) - ICD9: 250.00, ICD10: E11.9 - Uncontrolled - Continue current medications - Counseled on healthy diet and regular exercise - Discussed need for and benefit of weight loss. BMI 34.66 kg/(m^2) 4. Acute midline low back pain without sciatica - ICD9: 724.2, ICD10: M54.50 Continue with Tylenol prn 5. Fatigue, unspecified type - ICD9: 780.79, ICD10: R53.83 Check blood work today Work on controlling sugars, watch diet 6. Other cirrhosis of liver (HCC) - ICD9: 571.5, ICD10: K74.69 Check labs 7. Tendon sheath thickening - ICD9: 727.89, ICD10: M67.80 Right hand palm, continue to monitor Follow up in 6 months with fasting labs and urine test prior. Will notify of lab results; may need follow up CT and/or thyroid US I agree with the Chief Complaint, ROS, and Past Histories independently gathered by the clinical user support analyst and the remaining scribed note accurately describes my personal service to the patient. Medical Decision Making: Problems: Moderate: 2+ stable chronic illnesses and 1+ chronic illnesses with change Data: Unique test(s) ordered: 3+ Risk: Moderate: Drug management Medical Decision Making Level: 4 - Moderate Flako Tracy MD The documentation for this note was completed by Cheryl Harrison Ma acting as scribe for Flako Tracy MD. August 10, 2022 10:04 AM. Cheryl Harrison Ma documented in this encounterSt. Rita'S Hospital06-02-2023 Miscellaneous Notes* Telephone Encounter - Cheryl Harrison Ma - 08/06/2022 4:28 PM EDT Pt notified via [employer]. Tracker and med list updated. Cheryl Harrison Ma * Telephone Encounter - Flako Tracy MD - 08/06/2022 4:27 PM EDT INR good at 2.5 Stay on 2.5 mg Mon/TH, 5 mg all other days . Recheck in 4 weeks Flako Tracy MD * Telephone Encounter - Cheryl Harrison Ma - 08/06/2022 4:23 PM EDT Last INR: INR 2.5 08/06/2022 Current dose of coumadin is: 2.5 mg Mon/TH, 5 mg all other days . Last date of dose change: 07/26/22. Previous INR (date and result): 07/26/22 INR: 3.6 Additional Clinical Information or narrative: no NOTIFY PT VIA [employer] and [employer]. documented in this encounterSt. Rita'S Hospital05-08-2023 Miscellaneous Notes* Telephone Encounter - Flako Tracy MD - 07/12/2022 3:58 PM EDT INR ordered Flako Tracy MD * Telephone Encounter - Sindi Morris - 07/12/2022 3:13 PM EDT Pt needs INR reordered Sindi documented in this encounterSt. Rita'S Hospital05-08-2023 History of Present illness Narrative* Silva Lancaster RT(R) - 07/12/2022 2:50 PM EDT Radiology Service Progress Note PATIENT NAME: Laisha Walker DATE OF SERVICE: July 12, 2022 TIME: 2:53 PM PATIENT IDENTITY VERIFICATION COMPLETED USING TWO (2) IDENTIFIERS: Name and Date of confirmedby patient verbally. FALL SCREENING: Has the patient had 2 falls in the last year or 1 fall with injury or currently using an Ambulatory Assistive Device (Walker, Cane, Wheelchair, Crutches, etc.)? No PATIENT GENDER DATA: Female. status: : No status: NO. PATIENT RELEVANT IMPLANT DATA REVIEWED: Yes RADIOLOGY DEPARTMENT: General X-ray: Exam(s) Completed: Upper Extremity X- Ray(s): Shoulder, AP / TRUE AP / AXILLARY right and Wrist, right PERIPHERAL IV DATA: Not applicable SIGNED BY: RT Celestino(R) July 12, 2022 2:53 PM documented in this encounterSt. Rita'S Hospital05-08-2023 History of Present illness Narrative* Arielle Lara APRN.JASEN - 07/12/2022 2:47 PM EDT Images from the original note were not included. Subjective Patient came in with 2 separate complaints. First complaint is frequency and burning upon urination. Patient does get frequent UTIs. Patient says it feels the same as normal. Patient denies any feverchills flank pain or other symptoms associated with it. Patient did take Azo for this. Patient's second complaint is of right shoulder and wrist pain. Patient says she did fall a few days ago. Patient says she landed on her wrist and hand. Patient denies any numbness tingling or loss of feeling in that area. The history is provided by the patient. No core java engineer was used. UTI Shoulder Injury Review of Systems Constitutional: Negative. Genitourinary: Positive for dysuria. Skin: Negative. Objective Physical Exam Constitutional: Appearance: Normal appearance. Pulmonary: Effort: Pulmonary effort is normal. Abdominal: General: Abdomen is flat. Palpations: Abdomen is soft. Comments: Very mild tenderness when palpating. Patient's appendix has been removed. Musculoskeletal: Arms: Comments: Red areas marked above are where patient is experiencing tenderness upon palpation. No signs of swelling or deformities. Neurological: Mental Status: She is alert. PAST MEDICAL HISTORY Diagnosis Date Atrial fibrillation (HCC) SEES DR. BARRERA Carotid stenosis, asymptomatic CVA (cerebral vascular accident) ([facility]) post op after 2017 bilateral knee replacements - per pt was told by neurology that it was a questionable stroke DVT (deep venous thrombosis) ([facility]) post op Dysthymic disorder Depression (non-psychotic) Esophageal reflux Essential hypertension, benign Goiter, unspecified Goiter Liver cirrhosis (HCC) Macular degeneration (senile) of retina, unspecified Macular degeneration Other and unspecified hyperlipidemia Renal carcinoma, right (HCC) Type 2 diabetes mellitus (HCC) PAST SURGICAL HISTORY Procedure Laterality Date APPENDECTOMY 1963 RUPTURED APPENDIX ARTHRP KNE CONDYLE&PLATU MEDIAL&LAT COMPARTMENTS Bilateral 2017 CHOLECYSTECTOMY 1996 Cholecystectomy COLONOSCOPY [facility] EGD EUS 06/11/2020 benign leiomyoma GE junction, mild antral gastropathy, fatty pancreas, likely cirrhotic liver, prominent dilated portal vein NEPHRECTOMY PARTIAL Right 05/18/2019 robotic PAST SURGICAL HISTORY OF 07/15/1999 LEFT SHOULDER PAST SURGICAL HISTORY OF Left 2018 REPAIR OF LEFT KNEE FRACTURE TOTAL ABDOMINAL HYSTERECT W/WO RMVL TUBE OVARY 1984 Hysterectomy, JERRY ALLERGIES Gabapentin, Accupril [Quinapril Hcl], Bextra [Valdecoxib], Celebrex [Celecoxib], Codeine,Entex La [Phenylephrine-Guaifenesin], Glucophage [Metformin Hcl], Lipitor [Atorvastatin Calcium], Lodine [Etodolac], Naprosyn [Naproxen], Nsaids (Non-Steroidal Anti-Inflammatory Drug), Pravachol [Pravastatin Sodium], Sulfa (Sulfonamide Antibiotics), Ultracet [Tramadol-Acetaminophen], Vicodin [Hydrocodone-Acetaminophen], Vioxx [Rofecoxib], and Zocor [Simvastatin] MEDICATIONS glipiZIDE (GLUCOTROL) 5 mg tablet Take 1 tablets by mouth before breakfast and one tablet by mouth before dinner glipiZIDE (GLUCOTROL) 5 mg tablet Take 1 tablets by mouth before breakfast and one tablet by mouth before dinner sotalol (BETAPACE) 120 mg tablet Take 1 tablet by mouth twice daily. warfarin (COUMADIN) 5 mg tablet 2.5 mg Mon, 5 mg all other days or as directed docusate sodium (STOOL SOFTENER ORAL) Take by mouth as needed. OTC rosuvastatin (CRESTOR) 5 mg tablet Take 1 tablet by mouth once daily. losartan-hydroCHLOROthiazide (HYZAAR) 50-12.5 mg per tablet Take 1 tablet by mouth once daily. multivitamin (MULTIPLE VITAMINS ORAL) Take by mouth. loratadine (CLARITIN) 10 mg tablet Take 10 mg by mouth once daily. acetaminophen (TYLENOL) 325 mg tablet Take 500 mg by mouth. 2 TABLETS AT HS nitrofurantoin monohydrate and macrocrystal (MACROBID) 100 mg capsule Take 1 capsule by mouth twicedaily for 5 days. blood sugar diagnostic (BLOOD GLUCOSE TEST) test strip Test blood sugar(s) 1` times daily. Dx: Type2 DM - Uncontrolled E11.65 Insulin: No Lancets lancets Test blood sugar(s) 1` times daily. Dx: Type 2 DM - Uncontrolled E11.65 Insulin: No ondansetron orally disintegrating (ZOFRAN ODT) 4 mg disintegrating tablet Take 1 tablet by mouth every 8 hours as needed for nausea/vomiting. hydrocortisone (ANUSOL-HC) 2.5 % rectal cream by RECTAL route twice daily. alcohol swabs (ALCOHOL PREP PADS) Apply 1 application to affected area once daily. FAMILY HISTORY Problem Relation Age of Onset Heart Father [place] Hypertension Father Heart disease Father Arthritis Mother Hypertension Mother Dementia Mother other (DEPRESSION) Sister Diabetes Brother Heart Attack Brother Heart disease Brother other (DEPRESSION) Brother Hypertension Brother Stroke Sister Cancer No Family History none Social History Tobacco Use Smoking status: Never Smokeless tobacco: Never Vaping Use Vaping Use: Never used Substance Use Topics Alcohol use: Yes Comment: very seldom Drug use: No ASSESSMENT/PLAN: 1. Burning with urination - ICD9: 788.1, ICD10: R30.0 (primary diagnosis) - UA DIP, URINE (POC) - URINE CULTURE 2. Recurrent UTI (urinary tract infection) - ICD9: 599.0, ICD10: N39.0 - NITROFURANTOIN MONOHYDRATE & MACROCRYSTAL 100 MG ORAL CAP 3. Pain - ICD9: 780.96, ICD10: R52 - XR SHOULDER GENERAL 3V OR MORE AP/TRUE AP/OTHER RIGHT - XR WRIST INJURY 4V PA/LAT/OBL/SCAPH RIGHT * * * * Physician Interpretation * * * * EXAMINATION: XR WRIST 4V PA/LAT/OBL/SCAPH RT, XR SHLDR >/=3V AP/RENNY AP/OTHR RT PATIENT/TECHNOLOGIST PROVIDED HISTORY: Right radial sided wrist pain x 4 days following a fall. Posterior right shoulder pain following a fall x 4 days ago. Pt could not tolerate laying flat on the table. Y-view instead CLINICAL INFORMATION: 72 years old Female with Pain TECHNIQUE: XR WRIST 4V PA/LAT/OBL/SCAPH RT, XR SHLDR >/=3V AP/RENNY AP/OTHR RT Laterality: RIGHT Number of different views (projections): 3 views of the RIGHT shoulder and 4 views of the RIGHT wrist. COMPARISON: None RESULT: Right shoulder: No acute fracture or dislocation. Glenohumeral joint space is maintained. Mild degenerative change acromioclavicular joint. Acromiohumeral interval is maintained. Right wrist: No fracture. Joint spaces are maintained. IMPRESSION IMPRESSION: No acute osseous abnormality. Account Group Supervisor: RODERICK Transcribe Date/Time: Jul 12 2022 3:12P Dictated by : VIDA GAMBINO DO Was placed orthopedics. Patient will follow-up if signs and symptoms do not seem to be getting better over the next couple weeks. Patient will rest and take it easy. Patient was okay with this care plan. Arielle Lara APRN.MORTICIAN INVESTIGATOR documented in this encounterSt. Rita'[facility]03-07-[facility]23 History of Present illness Narrative* Cheryl Harrison Ma - 05/11/2022 3:44 PM EST Pt notified. Cheryl Harrison Ma * Flako Tracy MD - 05/11/2022 3:08 PM EST Ok for Cologuard as ordered Flako Tracy MD * Paris Mckeon MA - 05/11/2022 10:32 AM EST POPULATION HEALTH NAVIGATION OUTREACH Action/FYI Patient has declined a colonoscopy, but is open to FOBT or FIT. Please review if the patient is a good candidate and have the office reach out to coordinate appropriate test. Patient Identified by Name and : YES, via phone Outreach Outcome/Action Spoke to patient / parent / legal guardian: Patient declined Did you use a PCP flex slot to schedule this appointment? N/A Reason for Outreach Care Gap or Scheduling/Wellness visits Payer: Payor: [employer] MEDICARE / Plan: Office [employer] MEDICARE PPO / Product Type: PPO / Care Gap Reviewed:: Colorectal Cancer Screening Nephropathy (Albumin/Creatinine) Urine Reminder: Reminder note to check Health Maintenance for items below Health Maintenance items due: HEPATITIS A(1 of 2 - Risk 2-dose series) Never done PNEUMOCOCCAL: 65+(1 - PCV) Never done DIABETIC FOOT EXAM Never done BP CONTROLLED (<130/80) Never done COLORECTAL CANCER SCREENING Never done SHINGRIX VACCINE(1 of 2) Never done HEPATITIS B(1 of 3 - Risk 3-dose series) Never done COVID-19 VACCINE(4 - Booster for Pfizer series) due on 07/14/2021 ADVANCE DIRECTIVE DISCUSSION Never done DEPRESSION ASSESSMENT Never done URINE ALBUMIN:CREATININE RATIO due on 04/15/2022 Navigation Signature: Paris Mckeon MA May 11, 2022 10:32 AM documented in this encounterSt. Rita'S Hospital01-30-2023 History of Present illness Narrative* Tiffanie Reyes PA-C - 04/05/2022 6:35 PM EST This note was created using Penanariter. Subjective Laisha Walker is a 71 year old adult. HPI Presents with urinary frequency, dysuria, blood in urine. This started 3 to 4 days ago. She has tried Azo [id number] in the past couple days. This has helped with symptoms but when it wears offthe symptoms come back. No fever or vomiting. She has some low back pain but does have chronic problems with back pain. She does have a history of right renal cell carcinoma and had surgery 2 years ago. Review of Systems Constitutional: Negative. HENT: Negative. Respiratory: Negative. Cardiovascular: Negative. Gastrointestinal: Negative. Genitourinary: Positive for dysuria, hematuria and urgency. Negative for flank pain. Musculoskeletal: Positive for back pain. Skin: Negative. All other systems reviewed and are negative. PAST MEDICAL HISTORY Diagnosis Date Atrial fibrillation (HCC) SEES DR. BARRERA Carotid stenosis, asymptomatic CVA (cerebral vascular accident) (HCC) post op after 2017 bilateral knee replacements - per pt was told by neurology that it was a questionable stroke DVT (deep venous thrombosis) (HCC) post op Dysthymic disorder Depression (non-psychotic) Esophageal reflux Essential hypertension, benign Goiter, unspecified Goiter Liver cirrhosis (HCC) Macular degeneration (senile) of retina, unspecified Macular degeneration Other and unspecified hyperlipidemia Renal carcinoma, right (HCC) Type 2 diabetes mellitus (HCC) Current Outpatient Medications Medication Sig Dispense Refill sotalol (BETAPACE) 120 mg tablet Take 1 tablet by mouth twice daily. 180 tablet 3 warfarin (COUMADIN) 5 mg tablet 2.5 mg Mon, 5 mg all other days or as directed 90 tablet 3 docusate sodium (STOOL SOFTENER ORAL) Take by mouth as needed. OTC glipiZIDE (GLUCOTROL) 5 mg tablet Take 1 tablets by mouth before breakfast and one tablet by mouth before dinner 270 tablet 3 rosuvastatin (CRESTOR) 5 mg tablet Take 1 tablet by mouth once daily. 90 tablet 3 blood sugar diagnostic (BLOOD GLUCOSE TEST) test strip Test blood sugar(s) 1` times daily. Dx: Type2 DM - Uncontrolled E11.65 Insulin: No 100 Strip 3 Lancets lancets Test blood sugar(s) 1` times daily. Dx: Type 2 DM - Uncontrolled E11.65 Insulin: No100 Each 3 ondansetron orally disintegrating (ZOFRAN ODT) 4 mg disintegrating tablet Take 1 tablet by mouth every 8 hours as needed for nausea/vomiting. 18 tablet 1 losartan-hydroCHLOROthiazide (HYZAAR) 50-12.5 mg per tablet Take 1 tablet by mouth once daily. 90 tablet 3 hydrocortisone (ANUSOL-HC) 2.5 % rectal cream by RECTAL route twice daily. 28 g 0 multivitamin (MULTIPLE VITAMINS ORAL) Take by mouth. alcohol swabs (ALCOHOL PREP PADS) Apply 1 application to affected area once daily. 200 Each 11 loratadine (CLARITIN) 10 mg tablet Take 10 mg by mouth once daily. acetaminophen (TYLENOL) 325 mg tablet Take 500 mg by mouth. 2 TABLETS AT HS cephALEXin (KEFLEX) 500 mg capsule Take 1 capsule by mouth twice daily for 7 days. 14 capsule 0 No current facility-administered medications for this visit. PAST SURGICAL HISTORY Procedure Laterality Date APPENDECTOMY 1962 RUPTURED APPENDIX ARTHRP KNE CONDYLE&PLATU MEDIAL&LAT COMPARTMENTS Bilateral 2017 CHOLECYSTECTOMY 1996 Cholecystectomy COLONOSCOPY [facility] EGD EUS 06/11/2020 benign leiomyoma GE junction, mild antral gastropathy, fatty pancreas, likely cirrhotic liver, prominent dilated portal vein NEPHRECTOMY PARTIAL Right 05/18/2019 robotic PAST SURGICAL HISTORY OF 07/15/1999 LEFT SHOULDER PAST SURGICAL HISTORY OF Left 2018 REPAIR OF LEFT KNEE FRACTURE TOTAL ABDOMINAL HYSTERECT W/WO RMVL TUBE OVARY 1985 Hysterectomy, JERRY FAMILY HISTORY Problem Relation Age of Onset Heart Father [place] Hypertension Father Heart disease Father Arthritis Mother Hypertension Mother Dementia Mother other (DEPRESSION) Sister Diabetes Brother Heart Attack Brother Heart disease Brother other (DEPRESSION) Brother Hypertension Brother Stroke Sister Cancer No Family History none Social History Tobacco Use Smoking status: Never Smokeless tobacco: Never Vaping Use Vaping Use: Never used Substance Use Topics Alcohol use: Yes Comment: very seldom Drug use: No Objective BP 132/80 Pulse 72 Temp 36.6 C (97.8 F) Resp 16 Wt 89.8 kg (198 lb) SpO2 98% BMI 33.99 kg/m Physical Exam Vitals reviewed. Constitutional: Appearance: Normal appearance. HENT: Head: Normocephalic and atraumatic. Cardiovascular: Rate and Rhythm: Normal rate and regular rhythm. Heart sounds: Normal heart sounds. Pulmonary: Effort: Pulmonary effort is normal. Breath sounds: Normal breath sounds. Abdominal: General: Abdomen is flat. Palpations: Abdomen is soft. Tenderness: There is no abdominal tenderness. There is no right CVA tenderness or left CVA tenderness. Skin: General: Skin is warm and dry. Findings: No rash. Neurological: Mental Status: Umm Walker is alert. Assessment and Plan ASSESSMENT/PLAN: 1. Acute cystitis with hematuria - ICD9: 595.0, ICD10: N30.01 Patient did take Azo, urine dip unreliable. I will send for culture. We will start her on Keflex. Recommend follow-up with PCP if urine culture is negative. - UA DIP, URINE (POC) - URINE CULTURE Tiffanie Reyes PA-C documented in this encounterSt. Rita'[facility]12-06-2022 History of Present illness Narrative* Dayanna Marshall RT(R) - 02/09/2022 11:00 AM EST Radiology Service Progress Note PATIENT NAME: Laisha Walker DATE OF SERVICE: February 09, 2022 TIME: 10:50 AM PATIENT IDENTITY VERIFICATION COMPLETED USING TWO (2) IDENTIFIERS: Name and Date of confirmedby patient verbally. FALL SCREENING: Has the patient had 2 falls in the last year or 1 fall with injury or currently using an Ambulatory Assistive Device (Walker, Cane, Wheelchair, Crutches, etc.)? No PATIENT GENDER DATA: Female. status: : No status: NO. PATIENT RELEVANT IMPLANT DATA REVIEWED: Not Applicable RADIOLOGY DEPARTMENT: General X-ray: Exam(s) Completed: Spine X-Ray(s): Lumbar AP / LAT / L5-S1 Pelvis X-Ray: Pelvis with Hip Left PERIPHERAL IV DATA: Not applicable SIGNED BY: RT Kaitlynn(R) February 09, 2022 10:50 AM documented in this encounterSt. Rita'[facility] Hospital11-16-2022 History of Present illness Narrative* Mary Grace Sears RDMS - 01/20/2022 11:30 AM EST Radiology Service Progress Note PATIENT NAME: Laisha Walker DATE OF SERVICE: January 20, 2022 TIME: 1:24 PM PATIENT IDENTITY VERIFICATION COMPLETED USING TWO (2) IDENTIFIERS: Name and Date of confirmedby patient verbally. FALL SCREENING: Has the patient had 2 falls in the last year or 1 fall with injury or currently using an Ambulatory Assistive Device (Walker, Cane, Wheelchair, Crutches, etc.)? No PATIENT GENDER DATA: Female. status: : No status: NO. PATIENT RELEVANT IMPLANT DATA REVIEWED: Not Applicable RADIOLOGY DEPARTMENT: Ultrasound PERIPHERAL IV DATA: Not applicable SIGNED BY: Mary Grace Sears RDMS January 20, 2022 1:24 PM documented in this encounterSt. Rita'[facility] Hospital11-16-2022 History of Present illness Narrative* Yeni Montana RT(Daniella) - 01/20/2022 11:00 AM EST Radiology Service Progress Note PATIENT NAME: Laisha Walker DATE OF SERVICE: January 20, 2022 TIME: 10:58 AM PATIENT IDENTITY VERIFICATION COMPLETED USING TWO (2) IDENTIFIERS: Name and Date of confirmedby patient verbally. FALL SCREENING: Has the patient had 2 falls in the last year or 1 fall with injury or currently using an Ambulatory Assistive Device (Walker, Cane, Wheelchair, Crutches, etc.)? No PATIENT GENDER DATA: Female. status: : No status: NO. PATIENT RELEVANT IMPLANT DATA REVIEWED: Not Applicable RADIOLOGY DEPARTMENT: Mammography PERIPHERAL IV DATA: Not applicable SIGNED BY: RT Efrain(R) January 20, 2022 10:58 AM documented in this [facility]02-07-2022 Telephone encounter Note * Telephone Encounter - Ileana Friend MA - 04/13/2021 3:39 PM EST Called and talked with pt she is seeing secretarial stenographer at [facility]. Will refused this request. [id number] Miscellaneous Notes* Telephone Encounter - Ileana Friend MA - 04/13/2021 3:39 PM EST Called and talked with pt she is seeing secretarial stenographer at [facility]. Will refused this request. documented in this [id number] History of Present illness Narrative* Silva Lancaster RT(R) - 12/05/2020 4:30 PM EDT Radiology Service Progress Note PATIENT NAME: Laisha Walker DATE OF SERVICE: December 05, 2020 TIME: 4:22 PM PATIENT IDENTITY VERIFICATION COMPLETED USING TWO (2) IDENTIFIERS: Name and Date of confirmedby patient verbally. FALL SCREENING: Has the patient had 2 falls in the last year or 1 fall with injury or currently using an Ambulatory Assistive Device (Walker, Cane, Wheelchair, Crutches, etc.)? No PATIENT GENDER DATA: Female. status: : No status: NO. PATIENT RELEVANT IMPLANT DATA REVIEWED: Yes RADIOLOGY DEPARTMENT: General X-ray: Exam(s) Completed: Rib X-Ray: Right Upper Extremity X-Ray(s): Hand, bilateral PERIPHERAL IV DATA: Not applicable SIGNED BY: RT Celestino(Daniella) December 05, 2020 4:22 PM documented in this encounterSt. Rita'S Hospital08-23-2021 Evaluation note* Diagnosis Onset Date Resolution Status Bilateral carotid artery stenosis October 27, 2020 chronic HTN (hypertension) chronic PAF (paroxysmal atrial fibrillation) chronic S/P placement of cardiac pacemaker [facility] Work Phone: [phone] 127-331506-21-2021 Miscellaneous Notes* Telephone Encounter - Ileana Friend MA - 08/25/2020 3:13 PM EDT Pt last seen 01/23/2020, F/u in 4 months. Pt has OV 09/29/2020. Refilled Sotalol 120mg Twice a Day 180 with 0 refill and Losartan/HCTZ 50/12.5mg 0.5mg (25/6.25mg) Daily #45 with 0 refill. documented in this [id number] History of Present illness Narrative* Nancy Graves Tech (Tech) - 12/31/2019 8:00 AM EDT Radiology Service Progress Note PATIENT NAME: Laisha Walker DATE OF SERVICE: December 31, 2019 TIME: 8:12 AM PATIENT IDENTITY VERIFICATION COMPLETED USING TWO (2) IDENTIFIERS: Name and Date of confirmedby patient verbally. FALL SCREENING: Has the patient had 2 falls in the last year or 1 fall with injury or currently using an Ambulatory Assistive Device (Walker, Cane, Wheelchair, Crutches, etc.)? No PATIENT GENDER DATA: Female. status: : No status: NO. PATIENT RELEVANT IMPLANT DATA REVIEWED: Not Applicable RADIOLOGY DEPARTMENT: General X-ray: Exam(s) Completed: Spine X-Ray(s): Lumbar AP / LAT / L5-S1 PERIPHERAL IV DATA: Not applicable SIGNED BY: Bruce Lambert December 31, 2019 8:12 AM documented in this encounterSt. Rita'S Hospital10-05-2020 History of Present illness Narrative* Tony Knox Tech (Rt) - 12/10/2019 12:40 PM EDT Radiology Service Progress Note PATIENT NAME: Laisha Walker DATE OF SERVICE: December 10, 2019 TIME: 12:53 PM PATIENT IDENTITY VERIFICATION COMPLETED USING TWO (2) IDENTIFIERS: Name and Date of confirmedby patient verbally. FALL SCREENING: Has the patient had 2 falls in the last year or 1 fall with injury or currently using an Ambulatory Assistive Device (Walker, Cane, Wheelchair, Crutches, etc.)? No PATIENT GENDER DATA: Female. status: : No status: NO. PATIENT RELEVANT IMPLANT DATA REVIEWED: Not Applicable RADIOLOGY DEPARTMENT: General X-ray: Exam(s) Completed: Chest X-Ray PERIPHERAL IV DATA: Not applicable SIGNED BY: RT Darius December 10, 2019 12:53 PM documented in this encounterSt. Rita'S Hospital03-15-2020 History of Past illness Narrative* Problem Noted Date Diagnosed Date Resolved Date Renal carcinoma, right 05/20/201901/21 documented as of this encounter (statuses as of 01/21/2023) [facility] History of Past illness Narrative* Problem Noted Date Diagnosed Date Resolved Date Renal carcinoma, right 05/20/201901/21 documented as of this encounter (statuses as of 01/22/2023) [facility] HospitalConsult note Author Sangita Cross [facility] Note Date/Time May 17, 2024 3:1 3pm [facility] Medical Records Department [address] [place] [address] Counseling Note - Pharmacy 05/17/24 1512 MR#: [id number] Acct: [id number] Name: LAISHA WALKER Rep #:[id number] : 1950 74 From: Sangita Cross PCP: Dr. Flako Tracy MD Status:AD M IN [facility] Service has performed discharge medication reconciliation and counseling for this patient. 1. PANTOPRAZOLE 40MG PO BID 2. SUCRALFATE 1GM PO TIDAC 3. RESUMES WARFARIN 05/20 The patient's discharge medication list was reviewed for discrepancies and discrepancies were resolved. The patient was counseled on the following discharge medications and changes in medications for homegoing were reviewed. The Reason for Use, instructions for use, and potential side effects were reviewed for all new medications. The patient's questions regarding all of their medications were answered. The patient was able to verbally demonstrate an understanding of their dischargemedications. Medications at Discharge Home Medications acetaminophen 325 mg tablet 1,000 mg PO QHS 06/26/16 loratadine 10 mg tablet 10 mg PO QHS 30 days 07/23/16 docusate sodium 100 mg capsule (Colace) 200 mg PO QHS 01/21/23 multivitamin (Daily Multi-Vitamin tablet) 1 tab PO DAILY 01/21/23 hydrocortisone 2.5 % topical cream with perineal applicator (Anusol-HC) 1 applicPR QD-BID PRN hemorrhoids 02/04/23 promethazine 12.5 mg tablet 12.5 mg PO Q6H PRN nausea and vomiting 02/04/23 losartan 25 mg tablet 12.5 mg (1/2 x 25 mg) PO DAILY #45 tabs 08/15/23 metoprolol tartrate 50 mg tablet 50 mg PO BID #180 tabs 02/24/24 rosuvastatin 20 mg tablet 20 mg PO QHS #90 tabs 03/13/24 glipizide 10 mg tablet, extended release 24 hr 10 mg PO BID 04/18/24 ondansetron 4 mg disintegrating tablet 4 mg PO Q8H PRN PRN Nausea #10 tabs 05/14/24 warfarin 2.5 mg tablet 2.5 mg PO MOTUWETH 05/15/24 Held on 05/17/24. Instructions: Resume on 05/21/24. warfarin 5 mg tablet 5 mg PO .FRSASU 05/15/24 Held on 05/17/24. Instructions: Resume on 05/20/24. pantoprazole 40 mg tablet,delayed release 40 mg PO BID #60 tabs 05/17/24 sucralfate 1 gram tablet 1 g PO TIDAC #90 tabs 05/17/24 05/17/24 2723 <Electronically signed by Sangita Cross> Date _ Sangita Cross Cosigner Signature (if applicable): Date CC: ~ Signed [facility] Work Phone: Discharge summary Author Gallito Roberson [facility] January 28, 2023 1:36am Note Date/Time January 28, 2023 12:37am [facility] Medical Records Department [address] [place] [address] Emergency Department Summary 01/28/23 MR#: [id number] Acct: [id number] Name: LAISHA WALKER Rep #:[id number] : 1950 72 From: Gallito Roberson MD PCP: Dr. Flako Tracy MD Status:RE G ER Location: ED HPI HPI - GI History of Present Illness Chief Complaint: Constipation Informant: patient and spouse/S.O. Abdominal Pain/Flank Pain Onset: Days Context: Gradual Onset Timing: Continuous Current Severity: Mild Maximum Severity: Mild Nausea/Vomiting/Emesis GI Symptom: Negative for Nausea or Vomiting Diarrhea/Melena/Hematochezia GI Symptom: Negative for Diarrhea or Melena Associated Symptoms Associated Symptoms: Negative for Dysuria, Frequency, Hematuria or Urgency Narrative Narrative: 72-year-old female status post recent pacemaker placed at [facility] on Tuesday. She is on Coumadin for A-fib. States that she has a history of constipation. After being hospitalized and off her regular diet and routine shesaid she has soft stools but limited bowel movements last several days. Really denies any abdominal pain. She has chronic hemorrhoids had some intermittent bleeding. She said that not new or worse. She denies any nausea or vomiting orany significant abdominal pain. Prior similar symptoms: Yes Recent Illness/Hospitalization: Yes PFSH PFSH Medical History Arthritis Asthma Cancer Chronic anemia CVA (cerebral vascular accident) Diabetes DVT (deep venous thrombosis) Hemorrhoids HLD (hyperlipidemia) Hypertension Irregular heart beat Obesity Osteoporosis PAF (paroxysmal atrial fibrillation) Rectal pain TIA (transient ischemic attack) VTE (venous thromboembolism) Home Medications acetaminophen 325 mg tablet 1,000 mg PO QHS 04/22/17 [History Last Taken 06/29/16 1000 mg] loratadine 10 mg tablet 10 mg PO QHS 30 days 07/23/16 [Rx Last Taken Unknown] warfarin 2.5 mg tablet 5 mg PO SUMOWEFR 01/10/17 [History Last Taken Unknown] glipizide 5 mg tablet 5 mg PO BID 07/23/18 [History Last Taken Unknown] phenazopyridine 200 mg tablet 200 mg PO BID PRN PRN Pain #10 tabs 06/24/19 [Rx Last Taken Unknown] Diltiazem 2% / Lidocaine 5% ointment (compound) #1 ea 10/15/22 [Rx Last Taken Unknown] warfarin 5 mg tablet 2.5 mg PO TUTHSA 01/14/23 [History Last Taken Unknown] losartan 25 mg tablet 12.5 mg (1/2 x 25 mg) PO DAILY #30 tabs 01/15/23 [Rx Last Taken Unknown] docusate sodium 100 mg capsule (Colace) 200 mg PO QHS 01/21/23 [History Last Taken Unknown] multivitamin (Daily Multi-Vitamin tablet) 1 tab PO DAILY 01/21/23 [History Last Taken Unknown] rosuvastatin 10 mg tablet 20 mg PO QHS 01/21/23 [History Last Taken Unknown] Allergy/AdvReac Type Severity Reaction Status Date / Time Sulfa (Sulfonamide AdvReac Unknown Diarrhea Verified 01/28/23 00:15 Antibiotics) celecoxib [From Celebrex] AdvReac Nausea/Vom/ Verified 01/28/23 00:15 Diarrhea fluoxetine HCl [From Prozac] AdvReac Other Verified 01/28/23 00:15 isosorbide AdvReac Other Verified 01/28/23 00:15 metformin AdvReac Nausea/Vom/ Verified 01/28/23 00:15 Diarrhea Family History Mother CVA (cerebral vascular accident) Diabetes Heart disease Father CVA (cerebral vascular accident) Diabetes Heart disease Surgical History H/O partial nephrectomy History of appendectomy History of cholecystectomy History of hysterectomy History of knee replacement History of shoulder surgery Social History household members: spouse Smoking Status: Never smoker alcohol intake: never substance use type: does not use ROS ROS ED ROS Narrative Constipation. Review of Systems ROS Unobtainable: Denies due to encephalopathy Constitutional Constitutional ED: Denies chills or fever(s) Cardiovascular Cardiovascular: Denies chest pain Respiratory/Chest Respiratory/Chest: Denies cough or dyspnea Gastrointestinal Gastrointestinal: Reports constipation; Denies abdominal pain, diarrhea, melena,nausea or vomiting Genitourinary Genitourinary ED: Denies dysuria or hematuria Musculoskeletal Musculoskeletal: Denies arthralgias Integumentary Denies abscess Neurologic Neurologic: Denies headache(s) Psychiatric Psychiatric: Denies anxiety Endocrine Endocrinology: Denies polydipsia or polyphagia Allergic/Immunologic Allergic/Immunologic ED: Denies mouth swelling, tongue swelling or urticaria EXAM Physical Exam Narrative Exam Narrative: Well-appearing 72-year-old female. Vital signs stable afebrile. present at bedside. HEENT exam unremarkable. Lungs clear. Heart regular rhythm rate about 100 no murmur. Abdomen soft, nondistended, normal bowel sounds without peritoneal signs. Moving all 4 extremities. Nontender no edema. Chest wall she has a recently placed pacemaker on the left. It is well-healing. Back nontender. She has external hemorrhoids. Currently no active bleeding. She is awake and alert. Const Vital Signs: 01/28/23 00:12 Temperature 97.6 F L Temperature Source Temporal Pulse Rate 100 Respiratory Rate 18 Blood Pressure 187/90 H Blood Pressure Mean 122 Pulse Ox 99 Oxygen Delivery Method Room Air Positive well nourished and well developed; Negative for cachectic, contracturesor unkempt General Appearance ED: well developed and NAD; Negative for unkempt, cachectic, contractures or pallor Nutritional Appearance: Negative for cachectic HEENT Reports moist mucous membranes normocephalic and atraumatic; Negative for trauma or tenderness Eyes PERRL and EOMs intact bilaterally General Eye ED: Negative for pale conjunctiva or scleral icterus Neck no lymphadenopathy, supple and no JVD General: Negative for tenderness Lymph Lymphatic: Negative for other Resp normal respiratory effort and clear to auscultation bilaterally Effort and Inspection: Negative for respiratory distress Auscultation: Negative for rales, rhonchi or wheezes Cardio regular rate, regular rhythm, S1 normal heart sound, S2 normal heart sound and no murmurs GI non-tender, non-distended and no masses Inspection: Negative for abdominal distention Auscultation: normoactive bowel sounds Palpation: soft; Negative for tender or guarding Back/Spine no CVA tenderness General Back: Negative for CVA tenderness Cervical Spine: Negative for cervical spine tenderness Thoracic Spine / Upper Back: Negative for thoracic spinal tenderness Lumbar Spine / Lower Back: Negative for lumbar spinal tenderness Coccyx: Negative for other Extremity full ROM General Extremety ED: Negative for edema or tenderness General Extremity: Negative for edema Neuro CN's II-XII intact bilaterally and moves all extremities Sensorium / Orientation: alert, oriented to person, oriented to place and oriented to time; Negative for orientation impaired, confused or lethargic Motor Exam: strength 5/5 throughout Psych mental status grossly normal and thought process normal Appearance: Negative for unkempt Attitude: No agitated Mood & Affect: Negative for depressed, anxious or tearful Skin no wounds General Skin Exam: Negative for jaundice or pallor Lesions: no lesions Rashes: no rashes Trauma: Negative for abrasion MDM MDM MDM Narrative Medical decision making narrative: 72-year-old female status post recent hospitalization for pacemaker placement. Complaining of constipation which she has a history of. KUB being obtained. Otherwise exam is benign. Repeat exam patient doing well 1:30 AM. We went over x-ray results they are consistent with constipation. We discussed options and she preferred to go homeand use GoLytely which we will get her from the pharmacy and sent home with her. She will continue to use Preparation H or Anusol cream for hemorrhoids. Follow-up as needed or return if worse. Patient and her at bedside are both comfortable with the plan. She will start using the GoLytely around 8 or 9AM. Radiography Diagnostic Testing: Clinical Impression(s) from Imaging Studies KUB X-Ray 01/28/23 00:45 IMPRESSION: Moderate to large amount of stool. Electronically Signed: Cordell Donohue MD at 1:28 EST , KUB, single view, interpreted by myself and the radiologist showed increased stool in the rectum, ascending, transverse and descending colon. No obstruction. No free air. Discharge Plan Triage Chief Complaint: Constipation ED Provider: Gallito Roberson Dx/Rx/DC Orders Clinical Impression: Acute constipation, Chronic anticoagulation, Hemorrhoids, History of pacemaker,History of atrial fibrillation Instructions: ED Constipation (Adult), ED Hemorrhoids Prescriptions: No Action (DME) Diltiazem 2% / Lidocaine 5% ointment (compound) Ointment See Rx Instructions .Route Qty: 1 0RF Rx Instructions: As directed acetaminophen 325 MG tablet 1,000 mg PO QHS Patient Comments: pain control loratadine 10 MG tablet 10 mg PO QHS 30 Days 0RF warfarin 2.5 MG tablet 5 mg PO SUMOWEFR Rx Instructions: QHS glipizide 5 MG tablet 5 mg PO BID Patient Comments: TAKE 1 TABLET BY MOUTH TWICE DAILY Rx Instructions: 10 IN THE AM, 5 MG AT NIGHT phenazopyridine 200 MG tablet 200 mg PO BID PRN PRN (Reason: Pain) Qty: 10 0RF Hold Instructions: NO LONGER TAKING warfarin 5 mg tablet 2.5 mg PO TUTHSA losartan 25 mg Tablet 12.5 mg PO DAILY Qty: 30 2RF Rx Instructions: Hold for SBP less than 130 mmHg multivitamin [Daily Multi-Vitamin] Tablet 1 tab PO DAILY rosuvastatin 10 mg tablet 20 mg PO QHS docusate sodium [Colace] 100 mg capsule 200 mg PO QHS Primary Care Provider: Flako Tracy Referrals: Flako Tracy MD [Primary Care Provider] - 1-2 Days if not improving Activity Restrictions/Additional Instructions: Start drinking the GoLytely either at 8 or 9 AM. I would start with two 8 ounceglasses. And then an 8 out glass every 2 hours as needed and to have a large bowel movement. Use Preparation H or Anusol cream for your hemorrhoids. Also sit in a warm bathtub. Follow-up with your doctor if not improving or return if worse. Disposition Disposition: Home, Self Care What to do if you have Problems For any increased pain, shortness of breath, bleeding, nausea or vomiting, chestpain, or any unexpected problems, contact your Primary Care Provider. Call [facility] ([phone]) or report to the closest Emergency Room. Call 911 if necessary. 01/28/23 6726 <Electronically signed by Gallito Roberson MD> Cosigner Signature (if applicable): CC: Dr. Flako Tracy MD ~ Signed [facility] Work Phone: Discharge summary Author Ian Brambila [facility] Note Date/Time June 02, 2024 7:1 3am [facility] Medical Records Department [address] [place] [address] Emergency Department Summary 06/02/24 MR#: [id number] Acct: [id number] Name: LAISHA WALKER Rep #:[id number] : 1950 74 From: Ian Brambila DO PCP: Dr. Flako Tracy MD Status:RE G ER Location: ED HPI History of Present Illness Chief Complaint: Fall Narrative Narrative: Patient is a 74-year-old female with past medical history of chronic kidney disease, complete heart block with pacemaker, renal cell carcinoma, DVT on warfarin, TIA, paroxysmal A-fib, diabetes, hyperlipidemia, hypertension who presented to the emerged part with chief complaint of fall. Patient states thatshe was attempted to go use the restroom walking with her rollator when she losther balance falling backwards hitting her head against the wall. Patient is complaining of some back pain as well states that she has had back pain for the last several days. Patient states that she did not pass out she remembers the entire event. [facility] Medical History Pacemaker Obesity (BMI 30-39.9) Cancer of kidney Cirrhosis of liver not due to alcohol Goiter Depression History of renal carcinoma Stage 3a chronic kidney disease (CKD) Bilateral carotid artery stenosis (10/27/20) Complete heart block Thrombosed external hemorrhoid Osteoporosis Cancer Irregular heart beat DVT (deep venous thrombosis) TIA (transient ischemic attack) Rectal pain Chronic anemia Obesity PAF (paroxysmal atrial fibrillation) Asthma Diabetes Hemorrhoids Arthritis Hypertension VTE (venous thromboembolism) CVA (cerebral vascular accident) PAF (paroxysmal atrial fibrillation) HLD (hyperlipidemia) Home Medications ?Medication ?Instructions ?Recorded ?Last Taken ?Type acetaminophen 325 mg tablet 1,000 mg PO QHS 06/26/16 0 06/29/16 History 1000 mg loratadine 10 mg tablet 10 mg PO QHS 30 days 7 Unknown Rx docusate sodium 100 mg capsule 200 mg PO QHS 01/21/23 Unknown History (Colace) multivitamin (Daily Multi-Vitamin 1 tab PO DAILY 01/21 Unknown History tablet) hydrocortisone 2.5 % topical cream 1 applic FL QD-BID PRN hemorrhoids 02/04/23 Unknown History with perineal applicator (Anusol-HC) promethazine 12.5 mg tablet 12.5 mg PO Q6H PRN nausea and 02/04/23 Unknown History vomiting metoprolol tartrate 50 mg tablet 50 mg PO BID #180 tab s 02/24/24 Unknown Rx rosuvastatin 20 mg tablet 20 mg PO QHS #90 tabs Unknown Rx glipizide 10 mg tablet, extended 10 mg PO BID 04/18/24 Unknown History release 24 hr ondansetron 4 mg disintegrating 4 mg PO Q8H PRN PRN Na usea #10 tabs 05/14/24 Unknown Rx tablet warfarin 2.5 mg tablet 2.5 mg PO MOTUWETH 05/15/24 Unknown History warfarin 5 mg tablet 5 mg PO .FRSASU 05/15/24 Unk nown History pantoprazole 40 mg tablet,delayed 40 mg PO BID #60 tab s 05/17/24 Unknown Rx release sucralfate 1 gram tablet 1 g PO TIDAC #90 tabs Unknown Rx losartan 25 mg tablet 12.5 mg (1/2 x 25 mg) PO ORION LY #45 05/21/24 Unknown Rx tabs methocarbamol 500 mg tablet 500 mg PO 4X/DAY PRN Muscl e 05/30/24 Unknown Rx pain/spasm #40 tabs tramadol 50 mg tablet 50 mg PO Q6H PRN pain 3 days #12 05/30/24 Unknown Rx tabs Allergy/AdvReac Type Severity Reaction Status Date / Time simvastatin Allergy Severe Unknown Verified 06/02/24 04:41 etodolac AdvReac Intermediate GI upset Verified 06/02/24 04:41 gabapentin AdvReac Intermediate dizziness Verified 06/02/24 04:41 NSAIDS (Non-Steroidal AdvReac Intermediate GI upset Verified 06/02/24 04:41 Anti-Inflamma sulfamethoxazole AdvReac Intermediate Sulfa Verified 06/02/24 04:41 drugs GI upset sulfametrole AdvReac Intermediate GI upset Verified 06/02/24 04:41 valdecoxib (From Bextra) AdvReac Intermediate GI upset Verified 06/02/24 04:41 atorvastatin AdvReac Unknown unknown Verified 06/02/24 04:41 codeine AdvReac Unknown unknown Verified 06/02/24 04:41 guaifenesin (From Entex [place]) AdvReac Unknown unknown Verified 06/02/24 04:41 hydrocodone AdvReac Unknown unknown Verified 06/02/24 04:41 naproxen (From Naprosyn) AdvReac Unknown unknown Verified 06/02/24 04:41 phenylephrine (From Entex [place]) AdvReac Unknown unknown Verified 06/02/24 04:41 phenylpropanolamine (From AdvReac Unknown unknown Verified 06/02/24 04:41 Entex [place]) pravastatin AdvReac Unknown unknown Verified 06/02/24 04:41 quinapril (From Accupril) AdvReac Unknown Unknown Verified 06/02/24 04:41 rofecoxib (From Vioxx) AdvReac Unknown unknown Verified 06/02/24 04:41 Sulfa (Sulfonamide AdvReac Unknown Diarrhea Verified 06/02/24 04:41 Antibiotics) tramadol AdvReac Unknown unknown Verified 06/02/24 04:41 celecoxib (From Celebrex) AdvReac Nausea/Vom/ Verified 06/02/24 04:41 Diarrhea fluoxetine HCl (From Prozac) AdvReac Other Verified 06/02/24 04:41 isosorbide AdvReac Other Verified 06/02/24 04:41 metformin AdvReac Nausea/Vom/ Verified 06/02/24 04:41 Diarrhea Family History Mother CVA (cerebral vascular accident) Diabetes Heart disease Father CVA (cerebral vascular accident) Diabetes Heart disease 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 Surgical History S/P placement of cardiac pacemaker History of incision and drainage H/O partial nephrectomy History of hysterectomy History of knee replacement History of cholecystectomy History of shoulder surgery History of appendectomy Social History household members: spouse Smoking Status: Never smoker alcohol intake: never substance use type: does not use ROS ROS ED ROS Narrative Constitutional: Complains of headache denies any lightheadedness dizziness fevers or chills Eyes: Denies change in vision double vision blurry Cardiovascular: Denies chest pain or palpitations Respiratory: Denies coughing wheezing shortness of breath Abdomen: Complains of abdominal pain denies nausea vomit diarrhea : Denies urinary symptoms Neurological: Denies numbness, tingling Musculoskeletal: Complains of back pain as noted above Skin: Denies rashes or lesions EXAM Physical Exam Narrative Exam Narrative: General: Patient was lying in bed rest comfortably did not appear to be in acutedistress Head: Atraumatic, normocephalic Eyes: PERRL bilaterally, EOMI bilateral, no conjunctival injection noted Neck: Soft, supple, trachea midline Cardiovascular: Regular rate and rhythm no murmurs gallops rubs noted Respiratory: Clear to auscultation bilaterally Abdomen: Soft, nondistended, nontender to palpation Extremities: +4/5 strength noted in the bilateral upper and lower extremities, radial pulse +2/4 in the bilateral per extremities Neurological: Patient following commands that she was at [facility] years 2024 Skin: Warm, dry, intact no rashes or lesions noted Const Vital Signs: 06/02/24 04:41 06/02/24 04:44 06/02/24 06:40 Temperature 97.8 F 97.8 F Temperature Source Oral Pulse Rate 80 77 Respiratory Rate 18 16 Respiratory Effort Normal Non-Labored Respiratory Depth Normal Respiratory Pattern Normal Blood Pressure 155/78 H 156/57 H Blood Pressure Mean 103 90 Pulse Ox 94 96 Oxygen Delivery Method Room Air Room Air Room Air 06/02/24 07:08 Temperature 98.2 F Temperature Source Pulse Rate 79 Respiratory Rate 18 Respiratory Effort Respiratory Depth Respiratory Pattern Blood Pressure 160/59 H Blood Pressure Mean 92 Pulse Ox 97 Oxygen Delivery Method MDM MDM MDM Narrative Medical decision making narrative: Patient is a 74-year-old female who presented to the emergency department chief complaint of losing her balance and falling backwards hitting her head she is onwarfarin. On the differential diagnose includes but limited to intracranial hemorrhage, cervical spine fracture, intra-abdominal hemorrhage, thoracic lumbarfracture, rib fracture. Once workup is obtained reviewed she will be reevaluated. Patient CBC was reviewed and showed a white blood count of 13,000, hemoglobin 10.6, plate count normal at 277. Patient INR of 2.3 within therapeutic range for on warfarin, sodium was 131, potassium normal 4.4, creatinine was 1. Patient's AST and ALT are 2715 respectively. Patient's troponin was noted be 21delta troponin pending at this point in time. Patient's EKG per computer showedheart rate of 149 bpm her heart rate was not 149 bpm on his EKG was roughly around 75 bpm did show a paced rhythm no Sgarbossa criteria were met. Patient'surinalysis reviewed and showed no evidence of infection. Patient's CT head and brain without contrast showed no acute hemorrhage. Patient CT cervical spine was reviewed and showed no fracture or malalignment. Patient CT chest reviewed and showed no evidence of acute intrathoracic traumatic injury. Patient CT abdomen pelvis with IV contrast showed no acute intra-abdominal traumatic injuries possible cirrhosis again noted status post cholecystectomy and right nephrectomy noted. Patient did ambulate to the bathroom however she felt shaky during this. Patient's delta troponin is pending. After further discussion with the patient and family at bedside she states that given that she was unsteady on her feet and has had multiple falls and multiple visits recently they do believe that she will benefit from rehab. Patient's case will be discussed with hospitalist for admission for PT/OT evaluation for possible placement Discussed case with hospitalist Dr. Carroll who accept the patient for admission. Patient and significant other bedside are agreeable this plan all question concerns answered. Lab Data Labs: Laboratory Results - last 24 hr 06/02/24 06/02/24 05:09 05:10 WBC 13.2 H RBC 3.96 L Hgb 10.9 L Hct 33.2 L MCV 83.8 MCH 27.5 MCHC 32.8 RDW Std Deviation 42.4 RDW Coeff of Rukhsana 13.7 Plt Count 277 MPV 11.7 Immature Gran % (Auto) 0.400 Neut % (Auto) 74.3 H Lymph % (Auto) 12.2 L [place] % (Auto) 12.5 H Eos % (Auto) 0.2 Baso % (Auto) 0.4 Absolute Neuts (auto) 9.8 H Absolute Lymphs (auto) 1.61 Nucleated RBC % 0 Differential Comment SCANNED Diff Path Review May foll PT 25.5 H INR 2.3 APTT 51.1 H Sodium 131 L Potassium 4.4 Chloride 98 Carbon Dioxide 21.1 Anion Gap 12 BUN 15 Creatinine 1.00 Estim Creat Clear Calc 52.57 Est GFR (MDRD) Non-Af 58 L BUN/Creatinine Ratio 15.2 Glucose 190 H Calcium 9.7 Total Bilirubin 1.18 Direct Bilirubin 0.56 H AST 27 ALT 15 Alkaline Phosphatase 78 Troponin T High Sens 21 H D Total Protein 7.7 Albumin 3.6 Globulin 4.1 Urine Color Yellow Urine Clarity Clear Urine pH 6.0 Ur Specific Clyde 1.020 Urine Protein 15 H Urine Glucose (UA) 100 H Urine Ketones Negative Urine Occult Blood Negative Urine Nitrite Negative Urine Bilirubin Negative Urine Urobilinogen Normal Ur Leukocyte Esterase Negative Urine RBC 0 SEEN Urine WBC 0 SEEN Ur Squamous Epith Cells 0 SEEN Urine Bacteria 0 SEEN Urine Mucus 0 SEEN Radiography Diagnostic Testing: Clinical Impression(s) from Imaging Studies Abdomen/Pelvis CT 06/02/24 04:56 IMPRESSION: No evidence of acute intra-abdominal traumatic injury. Possible cirrhosis again noted. Status post cholecystectomy and partial right nephrectomy. Reading Location: [facility] Brain CT 06/02/24 04:56 IMPRESSION: No intracranial hemorrhage, mass effect or calvarial fracture. Reading Location: [facility] Cervical Spine CT 06/02/24 04:56 IMPRESSION: No fracture or malalignment. Reading Location: [facility] Chest CT 06/02/24 04:56 IMPRESSION: No evidence of acute intrathoracic traumatic injury on noncontrast imaging. Reading Location: [facility] Discharge Plan Triage Chief Complaint: Fall ED Provider: Ian Brambila Dx/Rx/DC Orders Clinical Impression: Fall, Generalized weakness Prescriptions: No Action promethazine 12.5 mg tablet 12.5 mg PO Q6H PRN (Reason: nausea and vomiting) hydrocortisone [Anusol-HC] 2.5 % cream with perineal applicator 1 applic FL QD-BID PRN (Reason: hemorrhoids) glipizide 10 mg tablet extended release 24hr 10 mg PO BID acetaminophen 325 MG tablet 1,000 mg PO QHS Patient Comments: pain control loratadine 10 MG tablet 10 mg PO QHS 30 Days 0RF multivitamin [Daily Multi-Vitamin] Tablet 1 tab PO DAILY docusate sodium [Colace] 100 mg capsule 200 mg PO QHS ondansetron 4 mg tablet,disintegrating 4 mg PO Q8H PRN PRN (Reason: Nausea) Qty: 10 0RF warfarin 5 mg tablet 5 mg PO .LOVE Protocol: Dose Management Condition: Tuesday Dose/Route: 5 mg Instruction: 1 x 5 mg tablet Condition: Tuesday Dose/Route: 2.5 mg Instruction: 1 x 2.5 mg tablet Condition: Tuesday Dose/Route: 2.5 mg Instruction: 1 x 2.5 mg tablet Condition: Tuesday Dose/Route: 2.5 mg Instruction: 1 x 2.5 mg tablet Condition: Dose/Route: 2.5 mg Instruction: 1 x 2.5 mg tablet Condition: Tuesday Dose/Route: 5 mg Instruction: 1 x 5 mg tablet Condition: Tuesday Dose/Route: 5 mg Instruction: 1 x 5 mg tablet Protocol Text: Adjustment Start Date: 05/24/24 INR Value: 1.5 INR Date: 05/24/24 Recheck Date: 05/31/24 warfarin 2.5 mg tablet 2.5 mg PO JULIETTE Protocol: Dose Management Condition: Tuesday Dose/Route: 5 mg Instruction: 1 x 5 mg tablet Condition: Tuesday Dose/Route: 2.5 mg Instruction: 1 x 2.5 mg tablet Condition: Tuesday Dose/Route: 2.5 mg Instruction: 1 x 2.5 mg tablet Condition: Tuesday Dose/Route: 2.5 mg Instruction: 1 x 2.5 mg tablet Condition: Dose/Route: 2.5 mg Instruction: 1 x 2.5 mg tablet Condition: Tuesday Dose/Route: 5 mg Instruction: 1 x 5 mg tablet Condition: Tuesday Dose/Route: 5 mg Instruction: 1 x 5 mg tablet Protocol Text: Adjustment Start Date: 05/24/24 INR Value: 1.5 INR Date: 05/24/24 Recheck Date: 05/31/24 Rx Instructions: 2.5 mg orally 1 tablet (2.5 mg) on Tuesday, Tuesday, Tuesday, and ; 2 tablets together to = 5mg on Tuesday, Tuesday and Tuesday at bedtdime; dose changes often, please give extra tablets sucralfate 1 gram Tablet 1 g PO TIDAC Qty: 90 0RF pantoprazole 40 mg tablet,delayed release (DR/EC) 40 mg PO BID Qty: 60 0RF tramadol 50 mg tablet 50 mg PO Q6H PRN (Reason: pain) 3 Days Qty: 12 0RF methocarbamol 500 mg tablet 500 mg PO 4X/DAY PRN (Reason: Muscle pain/spasm) Qty: 40 0RF metoprolol tartrate 50 mg tablet 50 mg PO BID Qty: 180 3RF rosuvastatin 20 mg tablet 20 mg PO QHS Qty: 90 3RF losartan 25 mg tablet 12.5 mg PO DAILY Qty: 45 3RF Rx Instructions: Hold for SBP less than 130 mmHg Primary Care Provider: Flako Tracy Referrals: Flako Tracy MD [Primary Care Provider] - Print Language: Hungarian Disposition Disposition: Acute Care Hospital [facility] What to do if you have Problems For any increased pain, shortness of breath, bleeding, nausea or vomiting, chestpain, or any unexpected problems, contact your Primary Care Provider. Call [facility] ([phone]) or report to the closest Emergency Room. Call 911 if necessary. 06/02/24 07 <Electronically signed by Ian Brambila DO> Cosigner Signature (if applicable): CC: Dr. Flako Tracy MD ~ Signed [facility] Work Phone: Discharge summary Author [place] Lopez [facility] Note Date/Time June 05, 2024 12:3 1pm [facility] Medical Records Department [address] [place] [address] Discharge Summary 06/05/24 1223 MR#: [id number] Acct: [id number] Name: LAISHA WALKER Vickie Rep #:[id number] : 1950 74 From: [place] Lopez MD PCP: Dr. Flako Tracy MD Status:[id number] Prov[facility] Date of Admission: 06/02/24 Date of Discharge: 06/05/24 Primary Care Physician: Dr. Flako Tracy MD Reason For Visit: FALLS/WEAKNESS Diagnosis Discharge Diagnosis (1) Generalized weakness: Status: Acute Code(s): R53.1 - Weakness (2) Fall: Status: Acute Code(s): W19.XXXA - Unspecified fall, initial encounter (3) 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: Status: Acute Code(s): Z79.01 - imaging technologist (current) use of 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 (4) Debility: Status: Acute Code(s): R53.81 - Other malaise (5) Elevated troponin: Status: Acute Code(s): R79.89 - Other specified abnormal findings of blood chemistry (6) Dysuria: Status: Acute Code(s): R30.0 - Dysuria Plan Patient is a 74-year-old lady admitted with frequent falls. Patient had recently been diagnosed with upper GI bleed as well as acute influenza A infection 1. Physical deconditioning ? Secondary to recent hospitalization with influenza A and GI bleed. Patient admitted to regular nursing floor requested for PT OT eval and social media manager to assist with discharge planning 06/05/2024; awaiting insurance decision prior to disposition 2. Dysuria ? Patient urinalysis obtained unremarkable 3. Elevated troponin ? Secondary to demand ischemia from blood pressure 4.Recent GI bleed secondary to peptic ulcer disease Patient is on Carafate as well as Protonix 40 mg p.o. twice daily 5. Anemia ? Secondary to chronic disorder as well as recent acute blood loss anemia from bleeding peptic ulcer. Monitoring H&H and transfuse if patient becomes symptomatic or hemoglobin falls below 7 6. Carotid artery stenosis -90% stenosis of left w/significant collaterals, 50% stenosis of right per U/S 10/27/2020. Right ICA 20-39% stenosis. Patient followed by vascular surgery as outpatient 7. History of complete heart block ? Status post pacemaker placed 7. Chronic atrial fibrillation ? Rate controlled on metoprolol patient is on warfarin close monitoring of H&H implemented ; went into rapid ventricular response heart rate back within normal limits 8. Dyslipidemia ?Patient is on statin therapy, continued at home dose 9. Hypertension ? Blood pressure controlled, home medications continued with dose adjustment as needed 10. Asymmetric septal hypertrophy -EF of 75% on last echo from January 2023; Continue ongoing outpatient follow- up with cardiology 11. 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 Diabetes mellitus type II -patient's oral hypoglycemics held. Placed on long acting insulin, Accu-Cheks a.c. and at bedtime and covered with sliding scale insulin 13. Hemorrhoids -Continue home Anusol 14. History of renal cell carcinoma -Remote; remains in remission 15. DVT prophylaxis -Continue home Coumadin with therapeutic INR presently CODE STATUS -DNR CCA with no intubation as verified at the time of admission Time spent in the patient's overall evaluation,decision-making process, review of diagnostic data, adjustment of management, discussion with other providers, nursing nursing and ancillary staff involved in patient's care documentation, 36minutes Medications at Discharge Home Medications acetaminophen 325 mg tablet 1,000 mg PO QHS 06/26/16 loratadine 10 mg tablet 10 mg PO QHS 30 days 07/23/16 docusate sodium 100 mg capsule (Colace) 200 mg PO QHS 01/21/23 multivitamin (Daily Multi-Vitamin tablet) 1 tab PO DAILY 01/21/23 hydrocortisone 2.5 % topical cream with perineal applicator (Anusol-HC) 1 applicPR QD-BID PRN hemorrhoids 02/04/23 promethazine 12.5 mg tablet 12.5 mg PO Q6H PRN nausea and vomiting 02/04/23 metoprolol tartrate 50 mg tablet 50 mg PO BID #180 tabs 02/24/24 rosuvastatin 20 mg tablet 20 mg PO QHS #90 tabs 03/13/24 glipizide 10 mg tablet, extended release 24 hr 10 mg PO BID 04/18/24 ondansetron 4 mg disintegrating tablet 4 mg PO Q8H PRN PRN Nausea #10 tabs 05/14/24 warfarin 2.5 mg tablet 2.5 mg PO MOTUWETH 05/15/24 warfarin 5 mg tablet 5 mg PO .FRSASU 05/15/24 pantoprazole 40 mg tablet,delayed release 40 mg PO BID #60 tabs 05/17/24 sucralfate 1 gram tablet 1 g PO TIDAC #90 tabs 05/17/24 losartan 25 mg tablet 12.5 mg (1/2 x 25 mg) PO DAILY #45 tabs 05/21/24 methocarbamol 500 mg tablet 500 mg PO 4X/DAY PRN Muscle pain/spasm #40 tabs 05/30/24 tramadol 50 mg tablet 50 mg PO Q6H PRN pain 3 days #12 tabs 05/30/24 Physical Exam Narrative GENERAL: cooperative HEENT: Atraumatic; normocephalic EYES; Anicteric, Normal Conjunctiva NECK; supple, normal thyroid, RESPIRATORY: Diminished to auscultation CARDIOVASCULAR: Irregular S1-S2 GI: soft, normoactive bowel sounds, : No Renal angle tenderness; EXTREMITIES: No edema, no clubbing, MUSCULOSKELETAL: no muscle wasting NEURO: Awake; no lateralizing signs. SKIN: No Rash PSYCH; Flat affect Weight / BMI Weight Weight: 92 kg Body Mass Index (BMI) 34.8 ABG / Lab / Microbiology Data 06/05/24 05:59 06/05/24 05:59 Laboratory: Laboratory Results - last 24 hr 06/04/24 16:24: POC Glucose 199 H 06/04/24 23:04: POC Glucose 160 H 06/05/24 05:59: WBC 6.3, RBC 3.45 L, Hgb 9.4 L, Hct 29.2 L, MCV 84.6, MCH 27.2, MCHC 32.2, RDW Std Deviation 44.3 H, RDW Coeff of Rukhsana 14.3, Plt Count 310, MPV 11.4, Immature Gran % (Auto) 0.300, Neut % (Auto) 51.6, Lymph % (Auto) 35.2, [place] % (Auto) 9.4, Eos % (Auto) 2.4, Baso % (Auto) 1.1 H, Absolute Neuts (auto) 3.3, Absolute Lymphs (auto) 2.22, Nucleated RBC % 0, Sodium 140, Potassium 4.3, Chloride 107, Carbon Dioxide 21.7, Anion Gap 12, BUN 19, Creatinine 1.06, Estim Creat Clear Calc 49.62 L, Est GFR (MDRD) Non-Af 54 L, BUN/Creatinine Ratio 17.8,Glucose 152 H, Calcium 9.6, Phosphorus 3.4, Magnesium 1.9 06/05/24 06:20: POC Glucose 133 H 06/05/24 11:36: POC Glucose 267 H Microbiology: Microbiology 06/03/24 12:00 Urine, Clean Catch Urine Culture - Final Mixed Gram Positive Organisms D/C Instructions Discharge Diet: No restrictions Discharge Activity: Return to Normal Activity Call your doctor if you observe: Fever of 101 or Higher, Shortness of breath, Fainting spells and Chest pain DC O2, CPAP, BIPAP Needs Home O2 Discharge instructions: No Meaningful Use Info Meaningful Use Meaningful Use Diagnoses (Choose all that apply): None applicable Ischemic Stroke Statin Dosing Therapy Reference: STATIN DOSE THERAPY REFERENCE: * Patients > 75 years receive moderate or high dose statin therapy. * Patients 75 years or YOUNGER should receive HIGH intensity statin dose unless contraindicated. You will be required to document reason for non-treatment if statin daily dose does not meet guidelines. HIGH DOSE STATIN THERAPY DAILY Atorvastatin > than or = to 40 mg Rosuvastatin > than or = to 20 mg Amlodipine + Atorvastatin > than or = to 2.5/40 mg Ezetimibe + Simvastatin 10/80 mg Simvastatin 80mg Discharge Plan Admission Admit Date/Time: 06/02/24 07:13 Attending Provider: South Lopez Primary Care Provider: Flako Tracy Consulting Providers: Cheryl Carroll Discharge Orders/Prescriptions Prescriptions: Continued promethazine 12.5 mg tablet 12.5 mg PO Q6H PRN (Reason: nausea and vomiting) hydrocortisone [Anusol-HC] 2.5 % cream with perineal applicator 1 applic [place] QD-BID PRN (Reason: hemorrhoids) glipizide 10 mg tablet extended release 24hr 10 mg PO BID acetaminophen 325 MG tablet 1,000 mg PO QHS Patient Comments: pain control loratadine 10 MG tablet 10 mg PO QHS 30 Days 0RF multivitamin [Daily Multi-Vitamin] Tablet 1 tab PO DAILY docusate sodium [Colace] 100 mg capsule 200 mg PO QHS ondansetron 4 mg tablet,disintegrating 4 mg PO Q8H PRN PRN (Reason: Nausea) Qty: 10 0RF warfarin 5 mg tablet [facility] Protocol: Dose Management Condition: Tuesday Dose/Route: 5 mg Instruction: 1 x 5 mg tablet Condition: Tuesday Dose/Route: 2.5 mg Instruction: 1 x 2.5 mg tablet Condition: Tuesday Dose/Route: 2.5 mg Instruction: 1 x 2.5 mg tablet Condition: Tuesday Dose/Route: 2.5 mg Instruction: 1 x 2.5 mg tablet Condition: Dose/Route: 2.5 mg Instruction: 1 x 2.5 mg tablet Condition: Tuesday Dose/Route: 5 mg Instruction: 1 x 5 mg tablet Condition: Tuesday Dose/Route: 5 mg Instruction: 1 x 5 mg tablet Protocol Text: Adjustment Start Date: 05/24/24 INR Value: 1.5 INR Date: 05/24/24 Recheck Date: 05/31/24 warfarin 2.5 mg tablet 2.5 mg PO MOTUWREANNA Protocol: Dose Management Condition: Tuesday Dose/Route: 5 mg Instruction: 1 x 5 mg tablet Condition: Tuesday Dose/Route: 2.5 mg Instruction: 1 x 2.5 mg tablet Condition: Tuesday Dose/Route: 2.5 mg Instruction: 1 x 2.5 mg tablet Condition: Tuesday Dose/Route: 2.5 mg Instruction: 1 x 2.5 mg tablet Condition: Dose/Route: 2.5 mg Instruction: 1 x 2.5 mg tablet Condition: Tuesday Dose/Route: 5 mg Instruction: 1 x 5 mg tablet Condition: Tuesday Dose/Route: 5 mg Instruction: 1 x 5 mg tablet Protocol Text: Adjustment Start Date: 05/24/24 INR Value: 1.5 INR Date: 05/24/24 Recheck Date: 05/31/24 Rx Instructions: 2.5 mg orally 1 tablet (2.5 mg) on Tuesday, Tuesday, Tuesday, and ; 2 tablets together to = 5mg on Tuesday, Tuesday and Tuesday at bedtdime; dose changes often, please give extra tablets sucralfate 1 gram Tablet 1 g PO TIDAC Qty: 90 0RF pantoprazole 40 mg tablet,delayed release (DR/EC) 40 mg PO BID Qty: 60 0RF tramadol 50 mg tablet 50 mg PO Q6H PRN (Reason: pain) 3 Days Qty: 12 0RF methocarbamol 500 mg tablet 500 mg PO 4X/DAY PRN (Reason: Muscle pain/spasm) Qty: 40 0RF metoprolol tartrate 50 mg tablet 50 mg PO BID Qty: 180 3RF rosuvastatin 20 mg tablet 20 mg PO QHS Qty: 90 3RF losartan 25 mg tablet 12.5 mg PO DAILY Qty: 45 3RF Rx Instructions: Hold for SBP less than 130 mmHg Referrals / Follow Up: Flako Tracy MD [Primary Care Provider] - 06/08/24 12:45 pm Disposition Disposition (needs filled in before D/C Order can be placed): Home Health Service Charges/Coding Visit Charges Inpatient E&M: 87964 Disch Hosp >30min 06/05/24 1231 <Electronically signed by South Lopez MD> Cosigner Signature (if applicable): CC: Dr. South Lopez MD; Dr. Flako Tracy MD~ Signed [facility] Work Phone: Evaluation note* Diagnosis Acute cystitis with hematuria- Primary Acute cystitis documented in this encounter [facility] note* Diagnosis Screening for colon cancer- Primary Special screening for malignant neoplasms, colon documented in this encounter [facility] note* Diagnosis Burning with urination- Primary Dysuria Recurrent UTI (urinary tract infection) Urinary tract infection, site not specified Pain Generalized pain documented in this encounter [facility] note* Diagnosis Atrial fibrillation, unspecified type (HCC)- Primary Encounter for monitoring Coumadin therapy Encounter for therapeutic drug monitoring documented in this encounter [facility] note* Diagnosis Renal carcinoma, right (HCC)- Primary History of thyroid nodule Personal history of other endocrine, metabolic, and immunity disorders Other cirrhosis of liver (HCC) documented in this encounter [facility] note* Diagnosis Atrial fibrillation, unspecified type (HCC) documented in this encounter [facility] note* Diagnosis Atrial fibrillation, unspecified type (HCC)- Primary Hyperlipidemia, mixed Mixed hyperlipidemia Type 2 diabetes mellitus without complication, without long-term current use of insulin (HCC) Acute midline low back pain without sciatica Fatigue, unspecified type Other cirrhosis of liver (HCC) Tendon sheath thickening Other disorders of synovium, tendon, and bursa Stage 3a chronic kidney disease (HCC) Malignant neoplasm of right kidney (HCC) Dyslipidemia associated with type 2 diabetes mellitus (HCC) Type II or unspecified type diabetes mellitus with other specified manifestations, not stated as uncontrolled documented in this encounter [facility] noteNo assessment information availableWGerman [facility] Work Phone: Evaluation note* Diagnosis Atrial fibrillation, unspecified type (HCC)- Primary Hypertension, essential Unspecified essential hypertension documented in this encounter [facility] note* Diagnosis Atrial fibrillation, unspecified type (HCC)- [facility] Diagnosis Recurrent UTI (urinary tract infection)- Primary Urinary tract infection, site not specified documented in this encounter [facility] note* Diagnosis Urinary frequency- Primary Burning with urination Dysuria [facility]* Diagnosis Recurrent UTI (urinary tract infection)- Primary Urinary tract infection, site not specified Goiter Goiter, unspecified Atrial fibrillation, unspecified type (HCC) Obesity, Class I, BMI 30-34.9 Obesity, unspecified [facility] this [facility]* Diagnosis imaging technologist (current) use of 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- Primary Long-term (current) use of 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 [facility]* Diagnosis Atrial fibrillation, unspecified type (HCC)- Primary USP (current) use of 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 Long-term (current) use of 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 [facility]* Diagnosis Atrial fibrillation, unspecified type (HCC)- Primary documented in this encounter [facility] note* Diagnosis URI with cough and congestion- Primary Nausea Nausea alone [facility]* Diagnosis Atrial fibrillation, unspecified type (HCC)- Primary imaging technologist (current) use of 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 Long-term (current) use of 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 [facility] this [facility]* Diagnosis Hospital discharge follow-up- Primary Other follow-up examination Fall, initial encounter Dysphagia, unspecified type History of thyroid nodule Personal history of other endocrine, metabolic, and immunity disorders Injury of head, initial encounter [facility]* Diagnosis Thyroid nodule- Primary Nontoxic uninodular goiter [facility]* Diagnosis History of thyroid nodule Personal history of other endocrine, metabolic, and immunity disorders [facility] this [facility]* Diagnosis Encounter for screening mammogram for malignant neoplasm of breast Other screening mammogram [facility]* Diagnosis Renal carcinoma, right (HCC) Other cirrhosis of liver (HCC) [facility] this [facility]* Diagnosis Abnormal mammogram Abnormal mammogram, unspecified [facility] this [facility]* Diagnosis Dysphagia, unspecified type History of thyroid nodule Personal history of other endocrine, metabolic, and immunity disorders documented in this encounter [facility] note* Diagnosis Abnormal mammogram Abnormal mammogram, unspecified documented in this encounter [facility] note* Diagnosis Onset Date Resolution Status Adverse drug reaction acute Dizziness acute imaging technologist (current) use of 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 acute Multiple falls acute Orthostatic hypotension acut e PAF (paroxysmal atrial fibrillation) chronic [facility] Work Phone: Evaluation note* Diagnosis Abnormal ultrasound of thyroid gland- Primary Nonspecific abnormal results of thyroid function study Thyroid nodule Nontoxic uninodular goiter documented in this encounter [facility] note* Diagnosis Onset Date Resolution Status Adverse drug reaction acute Dizziness acute imaging technologist (current) use of 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 acute Multiple falls acute Orthostatic hypotension acut e PAF (paroxysmal atrial fibrillation) chronic Right hip pain acute HTN (hypertension) chronic PAF (paroxysmal atrial fibrillation) chronic [facility] Work Phone: Evaluation note* Diagnosis Hospital discharge follow-up- Primary Other follow-up examination Orthostatic hypotension Acute right-sided low back pain without sciatica Dyslipidemia associated with type 2 diabetes mellitus (HCC) Type II or unspecified type diabetes mellitus with other specified manifestations, not stated as uncontrolled Atrial fibrillation, unspecified type (HCC) USP (current) use of 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 Long-term (current) use of 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 Stage 3a chronic kidney disease (HCC) documented in this encounter [facility] note* Diagnosis Visit for wound check- Primary Encounter for other specified aftercare documented in this encounter [facility] note* Diagnosis Paroxysmal atrial fibrillation (HCC)- Primary Atrial fibrillation Anticoagulant long-term use Long-term (current) use of 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 documented in this encounter [facility] note* Diagnosis Onset Date Resolution Status Adverse drug reaction acute Dizziness acute Multiple falls acute Orthostatic hypotension acut e PAF (paroxysmal atrial fibrillation) chronic Right hip pain acute HTN (hypertension) chronic PAF (paroxysmal atrial fibrillation) chronic Hemorrhoids, thrombosed acut e [facility] Work Phone: Evaluation note* Diagnosis Onset Date Resolution Status Adverse drug reaction acute Dizziness acute Multiple falls acute Orthostatic hypotension acut e PAF (paroxysmal atrial fibrillation) chronic Right hip pain acute HTN (hypertension) chronic PAF (paroxysmal atrial fibrillation) chronic Hemorrhoids, thrombosed acut e S/P placement of cardiac pacemaker chronic Complete heart block resolve d HTN (hypertension) chronic PAF (paroxysmal atrial fibrillation) chronic S/P placement of cardiac pacemaker [facility] Work Phone: Evaluation note* Diagnosis Onset Date Resolution Status Hemorrhoids, thrombosed acut e S/P placement of cardiac pacemaker chronic Complete heart block resolve d HTN (hypertension) chronic PAF (paroxysmal atrial fibrillation) chronic S/P placement of cardiac pacemaker [facility] Work Phone: Evaluation note* Diagnosis Onset Date Resolution Status S/P placement of cardiac pacemaker chronic Complete heart block resolve d HTN (hypertension) chronic PAF (paroxysmal atrial fibrillation) chronic S/P placement of cardiac pacemaker chronic Bilateral carotid artery stenosis October 27, 2020 chronic HTN (hypertension) chronic PAF (paroxysmal atrial fibrillation) chronic S/P placement of cardiac pacemaker [facility] Work Phone: Evaluation note* Diagnosis Encounter for screening mammogram for malignant neoplasm of breast- Primary Other screening mammogram Encounter for screening mammogram for malignant neoplasm of breast Other screening mammogram [facility]* Diagnosis Urgency of urination- Primary [facility]* Diagnosis Dysuria- Primary Chronic constipation Unspecified constipation Jaw pain [facility]* Diagnosis Recurrent UTI (urinary tract infection)- Primary Urinary tract infection, site not specified [facility]* Diagnosis Nausea- Primary Nausea alone Pelvic pain Class 1 obesity due to excess calories with serious comorbidity and body mass index (BMI) of 34.0 to 34.9 in adult Chronic fatigue Other malaise and fatigue Screening for lipid disorders Paroxysmal atrial fibrillation (HCC) Atrial fibrillation Other cirrhosis of liver (HCC) Gastroesophageal reflux disease without esophagitis Esophageal reflux Controlled type 2 diabetes mellitus without complication, without long-term current use of insulin (HCC) [facility]* Diagnosis Pelvic pain [facility] this [facility]* Diagnosis Dysuria- Primary Acute cough [facility] this [facility]* Diagnosis Pain Generalized pain [facility] this [facility] [facility]* Diagnosis Left groin pain Abdominal pain, left lower quadrant Chronic left hip pain Pain in joint, pelvic region and thigh Left-sided low back pain without sciatica, unspecified chronicity [facility] Rib injury Sprain of ribs Hand injury, left, initial encounter Hand injury, right, initial encounter [facility] Diagnosis Chronic bilateral low back pain without sciatica [facility] Diagnosis Malignant neoplasm of right kidney (HCC) [facility]* Diagnosis Medicare annual wellness visit, subsequent- Primary Routine general medical examination at a health care facility Recurrent UTI (urinary tract infection) Urinary tract infection, site not specified Bilateral leg edema Edema Other cirrhosis of liver (HCC) Chronic midline low back pain without sciatica Chronic constipation Unspecified constipation Paroxysmal atrial fibrillation (HCC) Atrial fibrillation Controlled type 2 diabetes mellitus without complication, without long-term current use of insulin (HCC) Hyperlipidemia, unspecified hyperlipidemia type Encounter for screening examination for other mental health and behavioral disorders Screening for depression Pelvic pain [facility] Diagnosis Chronic midline low back pain without sciatica [facility]* Diagnosis Controlled type 2 diabetes mellitus without complication, without long-term current use of insulin (HCC)- Primary Serum calcium elevated Hypercalcemia [facility]* Diagnosis Type 2 diabetes mellitus without complication, without long-term current use of insulin (HCC) [facility]* Diagnosis Type 2 diabetes mellitus without complication, without long-term current use of insulin (HCC)- Primary [facility]* Diagnosis UGIB (upper gastrointestinal bleed)- Primary Hemorrhage of gastrointestinal tract, unspecified Melanotic stools Blood in stool Influenza A Influenza with other respiratory manifestations Other cirrhosis of liver (HCC) Gastroesophageal reflux disease without esophagitis Esophageal reflux Atrial fibrillation, unspecified type (HCC) Stage 3a chronic kidney disease (HCC) Bilateral carotid artery stenosis Occlusion and stenosis of carotid artery without mention of cerebral infarction [facility]* Diagnosis Generalized weakness- Primary Other malaise and fatigue Fall, sequela Gastrointestinal hemorrhage associated with peptic ulcer Iron deficiency anemia due to chronic blood loss Iron deficiency anemia secondary to blood loss (chronic) Hypertension, essential Unspecified essential hypertension Other cirrhosis of liver (HCC) Pain of right hip Trochanteric bursitis of right hip Enthesopathy of hip region [facility] Diagnosis Fall, sequela Pain of right hip [facility] this 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* Diagnosis Controlled type 2 diabetes mellitus without complication, without long-term current use of insulin (HCC) documented in this encounter [facility] note* Diagnosis Hepatic cirrhosis, unspecified hepatic cirrhosis type, unspecified whether ascites present (HCC)- Primary documented in this encounter [facility] note* Diagnosis Hepatic cirrhosis, unspecified hepatic cirrhosis type, unspecified whether ascites present (HCC) documented in this encounter [facility] note* Diagnosis Holley-Mary syncope- Primary Conduction disorder, unspecified S/P placement of cardiac pacemaker Cardiac pacemaker in situ Paroxysmal atrial fibrillation (HCC) Atrial fibrillation Hyperlipidemia, unspecified hyperlipidemia type Gastroesophageal reflux disease without esophagitis Esophageal reflux Stage 3a chronic kidney disease (HCC) Right renal mass Unspecified disorder of kidney and ureter Dyslipidemia associated with type 2 diabetes mellitus (HCC) Type II or unspecified type diabetes mellitus with other specified manifestations, not stated as uncontrolled BMI 34.0-34.9,adult Body Mass Index 34.0-34.9, adult Bilateral carotid artery stenosis Occlusion and stenosis of carotid artery without mention of cerebral infarction Hypertension, unspecified type History of DVT (deep vein thrombosis) Personal history of venous thrombosis and embolism Acute midline low back pain without sciatica Anemia, unspecified type documented in this encounter [facility] note* Diagnosis Controlled type 2 diabetes mellitus without complication, without long-term current use of insulin (HCC) [facility] Diagnosis Hepatic cirrhosis, unspecified hepatic cirrhosis type, unspecified whether ascites present (HCC) Encounter for screening colonoscopy Special screening for malignant neoplasms, colon [facility] Diagnosis Burning with urination- Primary Dysuria Urinary tract infection with hematuria, site unspecified [facility] Additional Instructions Follow-up with a local general surgeon to discuss with them possible hemorrhoidectomy. Your labs were okay today. Your Coumadin level was 2.6. Your hemoglobin was 11.9. Your urinalysis was normal. Return if heavy bleeding otherwise outpatient follow-up.[facility] Work Phone: Hospital Discharge instructions Additional Instructions Start drinking the GoLytely either at 8 or 9 AM. I would start with two 8 ounce glasses. And then an 8 out glass every 2 hours as needed and to have a large bowel movement. Use Preparation H or Anusol cream for your hemorrhoids. Also sit in a warm bathtub. Follow-up with your doctor if not improving or return if worse.[facility] Work Phone: Hospital Discharge instructions Additional Instructions Thank you for trusting us with your care today! Your labs images were consistent with influenza A. While you are within the window for an antiflu medicine called Tamiflu it does cause nausea and vomiting I think would make your symptoms worse rather than better in the situation. Influenza typically resolves in 7 to 14 days. Please take Zofran as needed for nausea and vomiting. Please take Tylenol (2 pills, 650 mg), ibuprofen (2 pills, 400 mg) every 6 hours as needed for pain and fever control. Please return to the emergency department if your symptoms change or worsen. Specifically develop worsening shortness of breath, chest pain or if you lose consciousness. Please follow with your primary care physician for further outpatient evaluation and management.[facility] Work Phone: Hospital Discharge instructions Additional Instructions Your workup today showed no sign of heart attack or blood clot or pneumonia indicating your chest pain is most likely musculoskeletal. Take the prescribed medication as directed to help control symptoms and you may use [id number]-[id number] medications such as IcyHot Bengay or lidocaine patches to help as well. Return to the ER should you have any further concernsWooMer[facility] Work Phone: Reason for referral (narrative)* Diagnostic Procedure Only (Routine) - Authorized Specialty Diagnoses / Procedures Referred By Fran t Referred To Contact US IMAGING Diagnoses History of thyroid nodule Procedures US THYROID/PARATHYROID US SOFT TISSUE HEAD & NECK REAL TIME IMGE Flako Jolley MD [address] [place] [address] Us Imaging Referral ID Status Reason Start Date Expiration Date Visits Requested Visits Authorized [id number] Authorized Auto-Generat ed Referral 08/12/2022 09/11/2023 1 1 * MRI/CT (Routine) - Authorized Specialty Diagnoses / Procedures [facility] Referred To Contact CT IMAGING Diagnoses Renal carcinoma, right (HCC) Other cirrhosis of liver (HCC) Procedures CT ABD/PEL W IVCON CT ABD & PELVIS W/CONTRAST Flako Tracy MD [address] [place] [address] Ct Imaging Referral ID Status Reason Start Date Expiration Date Visits Requested Visits Authorized [id number] Authorized Auto-Generat ed Referral 08/12/2022 09/11/2023 1 1 [facility] for referral (narrative)* Diagnostic Procedure Only (Routine) - Authorized Specialty Diagnoses / Procedures Referred By [facility] Referred To Contact US IMAGING Diagnoses Goiter Procedures US THYROID/PARATHYROID US SOFT TISSUE HEAD & NECK REAL TIME IMGE DOCM Georgie Stallworth APRN.CNP [address] [place] [address] [place] [address] Referral ID Status Reason Start Date Expiration Date Visits Requested Visits Authorized [id number] Authorized Auto-Generat ed Referral 11/19/2022 12/19/2023 1 1 * Consult, Test, Treat (Routine) - Authorized Specialty Diagnoses / Procedures Referred By [facility] Referred To Contact Urology Diagnoses Recurrent UTI (urinary tract infection) Procedures CONSULT TO UROLOGY OFFICE/OUTPATIENT NEW HIGH MDM 60-74 MINUTES Georgie Stallworth APRN.CNP [address] [place] [address] Referral ID Status Reason Start Date Expiration Date Visits Requested Visits Authorized [id number] Authorized PCP Requested Referral 11/19/2022 11/19/2023 1 1 [facility] for referral (narrative)* Diagnostic Procedure Only (Routine) - Closed Specialty Diagnoses / Procedures Referred [facility] Referred To Contact US IMAGING Diagnoses History of thyroid nodule Procedures US THYROID/PARATHYROID US SOFT TISSUE HEAD & NECK REAL TIME IMGE Flako Jolley MD [address] [place] [address] [place] [address] Referral ID Status Reason Start Date Expiration Date V isits Requested Visits Authorized [id number] Closed Auto-Generate d Referral 08/12/2022 09/11/2023 1 1 [facility] for referral (narrative)* Diagnostic Procedure Only (Routine) - Closed Specialty Diagnoses / Procedures Referred By Fran garcia Referred To Contact BR IMAGING Diagnoses Encounter for screening mammogram for malignant neoplasm of breast Procedures ELI SCREENING SCREENING MAMMOGRAPHY BI 2-VIEW BREAST INC CAD Flako Tracy MD [address] [place] [address] Br Imaging [address] [place] [address] Referral ID Status Reason Start Date Expiration Date V isits Requested Visits Authorized [id number] Closed Auto-Generate d Referral 12/30/2022 01/28/2024 1 1 [facility] for referral (narrative)* Diagnostic Procedure Only (Urgent) - Closed Specialty Diagnoses / Procedures Referred By [facility] Referred To Contact US IMAGING Diagnoses Dysphagia, unspecified type History of thyroid nodule Procedures US THYROID/PARATHYROID US SOFT TISSUE HEAD & NECK REAL TIME IMGE Georgie Paz APRN.CNP [address] [place] [address] [place] [address] Referral ID Status Reason Start Date Expiration Date V isits Requested Visits Authorized [id number] Closed Auto-Generate d Referral 01/05/2023 02/04/2024 1 1 [facility] for referral (narrative)* Diagnostic Procedure Only (Routine) - Closed Specialty Diagnoses / Procedures Referred By Fran t Referred To Contact BR IMAGING Diagnoses Abnormal mammogram Procedures US BREAST LTD RT US BREAST UNI REAL TIME WITH IMAGE LIMITED Flako Tracy MD [address] [place] [address] Br Imaging [address] [place] [address] Referral ID Status Reason Start Date Expiration Date V isits Requested Visits Authorized [id number] Closed Auto-Generate d Referral 12/18/2021 01/17/2023 1 1 [facility] for referral (narrative)* Diagnostic Procedure Only (Routine) - Closed Specialty Diagnoses / Procedures Referred By Fran garcia Referred To Contact BR IMAGING Diagnoses Encounter for screening mammogram for malignant neoplasm of breast Procedures ELI SCREENING SCREENING MAMMOGRAPHY BI 2-VIEW BREAST INC CAD Flako Tracy MD [address] [place] [id number] Br Imaging [address] [place] [address] Referral ID Status Reason Start Date Expiration Date V isits Requested Visits Authorized [id number] Closed Auto-Generate d Referral 12/30/2022 01/28/2024 1 1 [facility] for referral (narrative)* Diagnostic Procedure Only (Routine) - Closed Specialty Diagnoses / Procedures Referred By Fran t Referred To Contact XR IMAGING Diagnoses Pelvic pain Procedures XR ABDOMEN 1V SPECIFY RADIOLOGIC EXAM ABDOMEN 1 VIEW Areli Escobar APRN.CNP [address] [place] [address] [place] [address] Referral ID Status Reason Start Date Expiration Date V isits Requested Visits Authorized [id number] Closed Auto-Generate d Referral 10/21/2023 11/19/2024 1 1 [facility] for referral (narrative)* Diagnostic Procedure Only (Routine) - Closed Specialty Diagnoses / Procedures Referred By Contac t Referred To Contact XR IMAGING Diagnoses Pelvic pain Procedures XR ABDOMEN 1V SPECIFY RADIOLOGIC EXAM ABDOMEN 1 VIEW Areli Escobar APRN.MORTICIAN INVESTIGATOR [address] [place] [address] [place] [address] Referral ID Status Reason Start Date Expiration Date V isits Requested Visits Authorized [id number] Closed Auto-Generate d Referral 10/21/2023 11/19/2024 1 1 [facility] for referral (narrative)* Diagnostic Procedure Only (Urgent) - Closed Specialty Diagnoses / Procedures Referred By Contac t Referred To Contact XR IMAGING Diagnoses Pain Procedures XR WRIST INJURY 4V PA/LAT/OBL/SCAPH RIGHT RADEX WRIST COMPLETE MINIMUM 3 VIEWS Arielle Lara APRN.MORTICIAN INVESTIGATOR [address] [place] [address] [place] [address] Referral ID Status Reason Start Date Expiration Date V isits Requested Visits Authorized [id number] Closed Auto-Generate d Referral 07/12/2022 08/11/2023 1 1 * Diagnostic Procedure Only (Urgent) - Closed Specialty Diagnoses / Procedures Referred By Contac t Referred To Contact XR IMAGING Diagnoses Pain Procedures XR SHOULDER GENERAL 3V OR MORE AP/TRUE AP/OTHER RIGHT RADEX SHOULDER COMPLETE MINIMUM 2 VIEWS Arielle Lara APRN.MORTICIAN INVESTIGATOR [address] [place] [address] [place] [address] Referral ID Status Reason Start Date Expiration Date V isits Requested Visits Authorized [id number] Closed Auto-Generate d Referral 07/12/2022 08/11/2023 1 1 [facility] for referral (narrative)* Diagnostic Procedure Only (Routine) - Closed Specialty Diagnoses / Procedures Referred By Contac t Referred To Contact XR IMAGING Diagnoses Left-sided low back pain without sciatica, unspecified chronicity Procedures XR LUMBAR GENERAL 3V AP/LAT/L5-S1 RADEX SPINE LUMBOSACRAL 2/3 VIEWS Flako Tracy MD [address] [place] [address] [place] [address] Referral ID Status Reason Start Date Expiration Date V isits Requested Visits Authorized [id number] Closed Auto-Generate d Referral 02/09/2022 03/11/2023 1 1 * Diagnostic Procedure Only (Routine) - Closed Specialty Diagnoses / Procedures Referred By Contac t Referred To Contact XR IMAGING Diagnoses Left groin pain Chronic left hip pain Procedures XR HIP GENERAL 3V PELV/AP/LAT LEFT RADEX HIP UNILATERAL WITH PELVIS 2-3 VIEWS Flako Tracy MD [address] [place] [address] [place] [address] Referral ID Status Reason Start Date Expiration Date V isits Requested Visits Authorized [id number] Closed Auto-Generate d Referral 02/09/2022 03/11/2023 1 1 [facility] for referral (narrative)* Diagnostic Procedure Only (Urgent) - Closed Specialty Diagnoses / Procedures Referred By Contac t Referred To Contact XR IMAGING Diagnoses Hand injury, left, initial encounter Hand injury, right, initial encounter Procedures XR HAND GENERAL 3V PA/LAT/OBL BILAT X-RAY HAND MINIMUM 3 VIEWS Norma Fernández, KENNETH [address] [place] [address] [place] [address] Referral ID Status Reason Start Date Expiration Date V isits Requested Visits Authorized [id number] Closed Auto-Generate d Referral 12/05/2020 01/04/2022 1 1 * Diagnostic Procedure Only (Urgent) - Closed Specialty Diagnoses / Procedures Referred By Contac t Referred To Contact XR IMAGING Diagnoses Rib injury Procedures XR RIBS/CHEST 3V AP RIB/OBLS/CXR RT X-RAY RIBS, CHEST 3+ VW Norma Fernández APRN.MORTICIAN INVESTIGATOR [address] [place] [address] [place] [address] Referral ID Status Reason Start Date Expiration Date V isits Requested Visits Authorized [id number] Closed Auto-Generate d Referral 12/05/2020 01/04/2022 1 1 [facility] for referral (narrative)* Diagnostic Procedure Only (Routine) - Closed Specialty Diagnoses / Procedures Referred By Contac t Referred To Contact XR IMAGING Diagnoses Chronic midline low back pain without sciatica Procedures XR LUMBAR GENERAL 3V AP/LAT/L5-S1 RADEX SPINE LUMBOSACRAL 2/3 VIEWS Georgie Stallworth APRN.MORTICIAN INVESTIGATOR [address] [place] [address] [place] [address] Referral ID Status Reason Start Date Expiration Date V isits Requested Visits Authorized [id number] Closed Auto-Generate d Referral 02/16/2024 03/17/2025 1 1 * Consult, Test, Treat (Routine) - Authorized Specialty Diagnoses / Procedures Referred By Contac t Referred To Contact Urology Diagnoses Recurrent UTI (urinary tract infection) Procedures CONSULT TO UROLOGY OFFICE/OUTPATIENT [facility] 60 MINUTES Georgie Stallworth APRN.MORTICIAN INVESTIGATOR [address] [place] [address] Referral ID Status Reason Start Date Expiration Date Visits Requested Visits Authorized [id number] Authorized PCP Requested Referral 02/15/2025 1 1 [facility]No reason for referral information availableW[facility] Work Phone: [facility] N[facility]* Diagnostic Procedure Only (Routine) - Closed Specialty Diagnoses / Procedures Referred By Contac t Referred To Contact BR IMAGING Diagnoses Encounter for screening mammogram for malignant neoplasm of breast Procedures ELI SCREENING SCREENING MAMMOGRAPHY BI 2-VIEW BREAST INC CAD Flako Tracy MD [address] [place] [address] Br Imaging [address] [place] [address] Referral ID Status Reason Start Date Expiration Date V isits Requested Visits Authorized [id number] Closed Auto-Generate d Referral 12/30/2022 01/28/2024 1 1 [facility] for visit Narrative* Diagnostic Procedure Only (Routine) - Closed Specialty Diagnoses / Procedures Referred By Fran t Referred To Contact BR IMAGING Diagnoses Abnormal mammogram Procedures ELI DIAGNOSTIC RT DIAGNOSTIC MAMMOGRAPHY COMPUTER-AIDED DETCJ UNI Flako Tracy MD [address] [place] [address] Br Imaging [address] [place] [id number] Referral ID Status Reason Start Date Expiration Date V isits Requested Visits Authorized [id number] Closed Auto-Generate d Referral 12/18/2021 01/17/2023 1 1 [facility] for visit Narrative* Diagnostic Procedure Only (Routine) - Closed Specialty Diagnoses / Procedures Referred By Janetac t Referred To Contact XR IMAGING Diagnoses Pelvic pain Procedures XR ABDOMEN 1V SPECIFY RADIOLOGIC EXAM ABDOMEN 1 VIEW Areli Escobar SILK SCREEN CUTTER.MORTICIAN INVESTIGATOR [address] [place] [address] [place] [address] Referral ID Status Reason Start Date Expiration Date V isits Requested Visits Authorized [id number] Closed Auto-Generate d Referral 10/21/2023 11/19/2024 1 1 [facility] for visit Narrative* Diagnostic Procedure Only (Urgent) - Closed Specialty Diagnoses / Procedures Referred By Janetac t Referred To Contact XR IMAGING Diagnoses Pain Procedures XR WRIST INJURY 4V PA/LAT/OBL/SCAPH RIGHT RADEX WRIST COMPLETE MINIMUM 3 VIEWS Arielle Lara, JOY.MORTICIAN INVESTIGATOR [address] [place] [address] [place] [address] Referral ID Status Reason Start Date Expiration Date V isits Requested Visits Authorized [id number] Closed Auto-Generate d Referral 07/12/2022 08/11/2023 1 1 [facility] for visit Narrative* Diagnostic Procedure Only (Routine) - Closed Specialty Diagnoses / Procedures Referred By Contac t Referred To Contact XR IMAGING Diagnoses Left-sided low back pain without sciatica, unspecified chronicity Procedures XR LUMBAR GENERAL 3V AP/LAT/L5-S1 RADEX SPINE LUMBOSACRAL 2/3 VIEWS Flako Tracy MD [address] [place] [address] [place] [address] Referral ID Status Reason Start Date Expiration Date V isits Requested Visits Authorized [id number] Closed Auto-Generate d Referral 02/09/2022 03/11/2023 1 1 [facility] for visit Narrative* Diagnostic Procedure Only (Urgent) - Closed Specialty Diagnoses / Procedures Referred By Contac t Referred To Contact XR IMAGING Diagnoses Hand injury, left, initial encounter Hand injury, right, initial encounter Procedures XR HAND GENERAL 3V PA/LAT/OBL BILAT X-RAY HAND MINIMUM 3 VIEWS Norma Fernández, SILK SCREEN CUTTER.MORTICIAN INVESTIGATOR [address] [place] [address] [place] [address] Referral ID Status Reason Start Date Expiration Date V isits Requested Visits Authorized [id number] Closed Auto-Generate d Referral 12/05/2020 01/04/2022 1 1 [facility] for visit Narrative* Diagnostic Procedure Only (Routine) - Closed Specialty Diagnoses / Procedures Referred By Contac t Referred To Contact XR IMAGING Diagnoses Chronic midline low back pain without sciatica Procedures XR LUMBAR GENERAL 3V AP/LAT/L5-S1 RADEX SPINE LUMBOSACRAL 2/3 VIEWS Georgie Stallworth, SILK SCREEN CUTTER.MORTICIAN INVESTIGATOR [address] [place] [address] [place] [address] Referral ID Status Reason Start Date Expiration Date V isits Requested Visits Authorized [id number] Closed Auto-Generate d Referral 02/16/2024 03/17/2025 1 1 [facility] for visit Narrative* Diagnostic Procedure Only (Routine) - Closed Specialty Diagnoses / Procedures Referred By Contac t Referred To Contact XR IMAGING Diagnoses Fall, sequela Pain of right hip Procedures XR HIP GENERAL 3V PELV/AP/LAT RIGHT RADEX HIP UNILATERAL WITH PELVIS 2-3 VIEWS Otoniel King APRN.MORTICIAN INVESTIGATOR [address] [place] [address] Phone: tel: fax: [place] [address] Referral ID Status Reason Start Date Expiration Date V isits Requested Visits Authorized [id number] Closed Auto-Generate d Referral 06/08/2024 07/08/2025 1 1 [facility] for visit Narrative* Outpatient Procedure (Routine) - Closed Specialty Diagnoses / Procedures Referred By Contac t Referred To Contact [facility] Diagnoses Hepatic cirrhosis, unspecified hepatic cirrhosis type, unspecified whether ascites present (HCC) Procedures EGD - THERAPEUTIC, EUS, OR TUBE INTERVENTIONS EDG US EXAM SURGICAL ALTER STOM DUODENUM/JEJUNUM Dariela Coulter, SIMONE [address] [facility] [place] [address] Phone: tel: fax: [facility] [address] [place] [address] Referral ID Status Reason Start Date Expiration Date V isits Requested Visits Authorized [id number] Closed Auto-Generate d Referral 09/26/2024 09/26/[address] [facility] Assessments Diagnosis Bilateral carotid artery yonathan nosis Occlusion and stenosis of carotid artery without mention of cerebral infarction Cerebrovascular accident (CV A), unspecified mechanism (HCC) Diagnosis Dyslipidemia associated with type 2 diabetes mellitus (HCC) - Primary Bilateral carotid artery yonathan nosis Occlusion and stenosis of carotid artery without mention of cerebral infarction Cerebrovascular accident (CV A), unspecified mechanism (HCC) Essential hypertension Unspecified essential hypertension Paroxysmal atrial fibrillati on (HCC) Atrial fibrillation Diagnosis Bilateral carotid artery yonathan nosis Occlusion and stenosis of carotid artery without mention of cerebral infarction Cerebrovascular accident (CV A), unspecified mechanism (HCC) Diagnosis Paroxysmal atrial fibrillati on (HCC) - Primary Atrial fibrillation Essential hypertension Unspecified essential hypertension Dyslipidemia associated with type 2 diabetes mellitus (HCC) Bilateral carotid artery yonathan nosis Occlusion and stenosis of carotid artery without mention of cerebral infarction Cerebrovascular accident (CV A), unspecified mechanism (HCC) Diagnosis Bilateral carotid artery yonathan nosis Occlusion and stenosis of carotid artery without mention of cerebral infarction Diagnosis Carotid stenosis, bilateral Occlusion and stenosis of carotid artery without mention of cerebral infarction Diagnosis Essential hypertension- Primary Unspecified essential hypertension Atrial fibrillation, unspecified type (HCC) Cerebrovascular accident (CVA), unspecified mechanism (HCC) Bilateral carotid artery stenosis Occlusion and stenosis of carotid artery without mention of cerebral infarction Dyslipidemia associated with type 2 diabetes mellitus (HCC) Diagnosis Paroxysmal atrial fibrillation (HCC) Atrial fibrillation Bilateral carotid artery stenosis Occlusion and stenosis of carotid artery without mention of cerebral infarction Essential hypertension Unspecified essential hypertension Dyslipidemia associated with type 2 diabetes mellitus (HCC) Cerebrovascular accident (CVA), unspecified mechanism (HCC) Diagnosis Bilateral carotid artery stenosis Occlusion and stenosis of carotid artery without mention of cerebral infarction Diagnosis Paroxysmal atrial fibrillation (HCC) Atrial fibrillation Summary Purpose Family History No Family History Records Found Relationship Condition Age at Onset Recorded Date/T nataly mother Cerebrovascular accident (CVA) Unknown Diabetes mellitus Unknown Cardiac disease Unknown father Cerebrovascular accident (CVA) Unknown Relationship Condition Age at Onset Recorded Date/T nataly Not Specified 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 us e of anticoagulant therapy Unknown mother Cerebrovascular accident (CVA) Unknown Diabetes mellitus Unknown Cardiac disease Unknown father Cerebrovascular accident (CVA) Unknown Advance Directives No Advanced Directives Records FoundDocuments on File Type Date Recorded Patient Zipper Ironer Expl anation Advance Directives and Livin g Will Advance Directives and Livin g Will 08/02/2018 12:00 AM Documents on File Type Date Recorded Patient Zipper Ironer Expl anation Advance Directives and Livin g Will Advance Directives and Livin g Will 08/02/2018 12:00 AM Documents on File Type Date Recorded Patient Zipper Ironer Expl anation Advance Directives and Livin g Will 09/12/2019 10:40 AM Documents on File Type Date Recorded Patient Zipper Ironer Expl anation Advance Directives and Livin g Will 09/12/2019 10:40 AM Advance Directive Response Recorded Date/ Time Name of Medical Power of Interpersonal Communications Professor TA WALKER August 14, 2022 10:26pm Name of Medical Power of Interpersonal Communications Professor TA/ JESSICA Frankel October 13, 2022 4:57pm Advance Directives Yes December 22, 2015 7:15am Living Will Yes October 13, 2022 4:57pm Power of Interpersonal Communications Professor Yes October 13 4:57pm Advance Directive Response Recorded Date/ Time Name of Medical Power of Interpersonal Communications Professor TA/ MAEVEBAN D October 13, 2022 4:57pm Name of Medical Power of Interpersonal Communications Professor TA WALKER January 01, 2023 11:40am Advance Directives Yes December 22, 2015 7:15am Living Will Yes January 01 11:40am Power of Interpersonal Communications Professor Yes January 01, 2023 11:40am Advance Directive Response Recorded Date/ Time Name of Medical Power of Interpersonal Communications Professor TA/ MAEVEBAN D October 13, 2022 3:57pm Name of Medical Power of Interpersonal Communications Professor TA WALKER January 01, 2023 10:40am Name of Medical Power of Interpersonal Communications Professor JESSICA Poon (EMIR) January 14, 2023 3:48pm Advance Directives Yes December 22, 2015 6:15am Living Will Yes January 14, 2 023 3:48pm Power of Interpersonal Communications Professor Yes January 14, 2023 3:48pm Advance Directive Response Recorded Date/ Time Name of Medical Power of Interpersonal Communications Professor TA/ MAEVEBAN D October 13, 2022 3:57pm Name of Medical Power of Interpersonal Communications Professor TA WALKER January 01, 2023 10:40am Name of Medical Power of Interpersonal Communications Professor Emir Aaron - h usband January 14, 2023 11:40pm Advance Directives Yes December 22, 2015 6:15am Living Will Yes January 14, 2 023 11:40pm Power of Interpersonal Communications Professor Yes January 14, 2023 11:40pm Latest Code Status on File Code Status Date Activated Date Inactivated Comments Full Code 01/22/2023 9:44 AM 01/25/2023 7:36 PM Question Answer Comments Full Code Order Discussed With: Patient Advance Directive Response Recorded Date/ Time Name of Medical Power of Interpersonal Communications Professor TA/ MAEVEBAN D October 13, 2022 3:57pm Name of Medical Power of Interpersonal Communications Professor TA WALKER January 01, 2023 10:40am Name of Medical Power of Interpersonal Communications Professor Emir Aaron - h usband January 14, 2023 11:40pm Name of Medical Power of Interpersonal Communications Professor EMIR AARON HUS BAND January 21, 2023 10:06pm Name of Medical Power of Interpersonal Communications Professor Ta Walker January 28, 2023 12:20am Advance Directives Yes December 22, 2015 6:15am Living Will Yes January 28, 2 023 12:20am Power of Interpersonal Communications Professor Yes January 28, 2023 12:20am Advance Directive Response Recorded Date/ Time Name of Medical Power of Interpersonal Communications Professor TA WALKER January 01, 2023 10:40am Name of Medical Power of Interpersonal Communications Professor Emir brown usband January 14, 2023 11:40pm Name of Medical Power of Interpersonal Communications Professor EMIR WALKER HUS BAND January 21, 2023 10:06pm Name of Medical Power of Interpersonal Communications Professor Ta Walker January 28, 2023 12:20am Advance Directives Yes December 22, 2015 6:15am Living Will Yes January 28, 2 023 12:20am Power of Interpersonal Communications Professor Yes January 28, 2023 12:20am Advance Directive Response Recorded Date/ Time Name of Medical Power of Interpersonal Communications Professor Emir brown usband January 14, 2023 11:40pm Name of Medical Power of Interpersonal Communications Professor EMIR MCFARLANE BAND January 21, 2023 10:06pm Name of Medical Power of Interpersonal Communications Professor Ta Walker January 28, 2023 12:20am Advance Directives Yes December 22, 2015 6:15am Living Will Yes January 28, 2 023 12:20am Power of Interpersonal Communications Professor Yes January 28, 2023 12:20am Advance Directive Response Recorded Date/ Time Name of Medical Power of Interpersonal Communications Professor Ta Walker January 28, 2023 1:20am Advance Directives Yes December 22, 2015 7:15am Living Will Yes January 28, 2 023 1:20am Power of Interpersonal Communications Professor Yes January 28, 2023 1:20am Advance Directive Response Recorded Date/ Time Advance Directives Yes December 22, 2015 7:15am Living Will Yes January 28, 2 023 1:20am Power of Interpersonal Communications Professor Yes January 28, 2023 1:20am Date Activated Date Inactivated Comments 01/22/2023 9:44 AM 01/25/2023 7:36 PM Question Answer Comments Full Code Order Discussed With: Patient Advance Directive Response Recorded Date/ Time Name of Medical Power of Interpersonal Communications Professor TA WALKER July 15, 2023 11:58pm Advance Directives Yes December 22, 2015 7:15am Living Will Yes July 15, 2023 1 1:58pm Power of Interpersonal Communications Professor Yes July 15, 2023 11:58pm Date Activated Date Inactivated Comments 01/22/2023 9:44 AM 01/25/2023 7:36 PM Question Answer Comments Full Code Order Discussed With: Patient Advance Directive Response Recorded Date/ Time Living Will Yes February 03 11:43pm Power of Interpersonal Communications Professor Yes February 04, 2024 11:43pm Living Will Yes April 06 10:08pm Power of Interpersonal Communications Professor Yes April 06, 2024 10:08pm Living Will Yes May 13, 2024 11:42pm Power of Interpersonal Communications Professor Yes May 13 11:42pm Name of Medical Power of Interpersonal Communications Professor May 13, 2024 11:42pm Living Will Yes July 29, 2023 1 2:32pm Power of Interpersonal Communications Professor Yes July 29, 2023 12:32pm Advance Directives Yes July 28 12:32pm Advance Directive Response Recorded Date/ Time Living Will Yes February 03 11:43pm Power of Interpersonal Communications Professor Yes February 04, 2024 11:43pm Living Will Yes April 06 10:08pm Power of Interpersonal Communications Professor Yes April 06, 2024 10:08pm Living Will Yes May 13, 2024 11:42pm Power of Interpersonal Communications Professor Yes May 13 11:42pm Name of Medical Power of Interpersonal Communications Professor May 13, 2024 11:42pm Living Will Yes May 15, 2024 5:49pm Power of Interpersonal Communications Professor Yes May 15 5:49pm Name of Medical Power of Interpersonal Communications Professor Ta May 15, 2024 5:49pm Living Will Yes July 29, 2023 1 2:32pm Power of Interpersonal Communications Professor Yes July 29, 2023 12:32pm Advance Directives Yes July 28 12:32pm Advance Directive Response Recorded Date/ Time Living Will Yes February 03 11:43pm Power of Interpersonal Communications Professor Yes February 04, 2024 11:43pm Living Will Yes April 06 10:08pm Power of Interpersonal Communications Professor Yes April 06, 2024 10:08pm Living Will Yes May 13, 2024 11:42pm Power of Interpersonal Communications Professor Yes May 13 11:42pm Name of Medical Power of Interpersonal Communications Professor May 13, 2024 11:42pm Living Will Yes May 15, 2024 11:23pm Power of Interpersonal Communications Professor Yes May 15 11:23pm Name of Medical Power of Interpersonal Communications Professor Ta May 15, 2024 11:23pm Living Will Yes July 29, 2023 1 2:32pm Power of Interpersonal Communications Professor Yes July 29, 2023 12:32pm Advance Directives Yes July 28 12:32pm Advance Directive Response Recorded Date/ Time Living Will Yes February 03 11:43pm Power of Interpersonal Communications Professor Yes February 04, 2024 11:43pm Living Will Yes April 06 10:08pm Power of Interpersonal Communications Professor Yes April 06, 2024 10:08pm Living Will Yes May 05, 2024 4:45am Power of Interpersonal Communications Professor Yes May 05 4:45am Living Will Yes May 13, 2024 11:42pm Power of Interpersonal Communications Professor Yes May 13 11:42pm Name of Medical Power of Interpersonal Communications Professor May 13, 2024 11:42pm Living Will Yes May 15, 2024 11:23pm Power of Interpersonal Communications Professor Yes May 15 11:23pm Name of Medical Power of Interpersonal Communications Professor Ta May 15, 2024 11:23pm Living Will Yes July 29, 2023 1 2:32pm Power of Interpersonal Communications Professor Yes July 29, 2023 12:32pm Advance Directives Yes July 28 12:32pm Advance Directive Response Recorded Date/ Time Living Will Yes February 03 11:43pm Do you have a Healthcare Pow er of Interpersonal Communications Professor? Yes February 04, 2024 11:43pm Living Will Yes April 06 10:08pm Do you have a Healthcare Pow er of Interpersonal Communications Professor? Yes April 06, 2024 10:08pm Living Will Yes May 05, 2024 4:45am Do you have a Healthcare Pow er of Interpersonal Communications Professor? Yes May 05, 2024 4:45am Living Will Yes May 13, 2024 11:42pm Do you have a Healthcare Pow er of Interpersonal Communications Professor? Yes May 13, 2024 11:42pm Name of Medical Power of Interpersonal Communications Professor May 13, 2024 11:42pm Living Will Yes May 15, 2024 11:23pm Do you have a Healthcare Pow er of Interpersonal Communications Professor? Yes May 15, 2024 11:23pm Name of Medical Power of Interpersonal Communications Professor Ta May 15, 2024 11:23pm Living Will Yes May 30, 2024 11:12am Do you have a Healthcare Pow er of Interpersonal Communications Professor? Yes May 30, 2024 11:12am Name of Medical Power of Interpersonal Communications Professor Ta Walker May 30, 2024 11:12am Advance Directives Yes July 28 12:32pm Advance Directive Response Recorded Date/ Time Living Will Yes February 03 11:43pm Do you have a Healthcare Pow er of Interpersonal Communications Professor? Yes February 04, 2024 11:43pm Living Will Yes April 06 10:08pm Do you have a Healthcare Pow er of Interpersonal Communications Professor? Yes April 06, 2024 10:08pm Living Will Yes May 05, 2024 4:45am Do you have a Healthcare Pow er of Interpersonal Communications Professor? Yes May 05, 2024 4:45am Living Will Yes May 13, 2024 11:42pm Do you have a Healthcare Pow er of Interpersonal Communications Professor? Yes May 13, 2024 11:42pm Name of Medical Power of Interpersonal Communications Professor May 13, 2024 11:42pm Living Will Yes May 15, 2024 11:23pm Do you have a Healthcare Pow er of Interpersonal Communications Professor? Yes May 15, 2024 11:23pm Name of Medical Power of Interpersonal Communications Professor Ta May 15, 2024 11:23pm Living Will Yes May 30, 2024 11:12am Do you have a Healthcare Pow er of Interpersonal Communications Professor? Yes May 30, 2024 11:12am Name of Medical Power of Interpersonal Communications Professor Ta Walker May 30, 2024 11:12am Living Will Yes June 02, 2024 4:44am Do you have a Healthcare Pow er of Interpersonal Communications Professor? Yes June 02, 2024 4:44am Name of Medical Power of Interpersonal Communications Professor Ta Walker June 02, 2024 4:44am Advance Directives Yes July 28 12:32pm Advance Directive Response Recorded Date/ Time Living Will Yes February 03 11:43pm Do you have a Healthcare Pow er of Interpersonal Communications Professor? Yes February 04, 2024 11:43pm Living Will Yes April 06 10:08pm Do you have a Healthcare Pow er of Interpersonal Communications Professor? Yes April 06, 2024 10:08pm Living Will Yes May 05, 2024 4:45am Do you have a Healthcare Pow er of Interpersonal Communications Professor? Yes May 05, 2024 4:45am Living Will Yes May 13, 2024 11:42pm Do you have a Healthcare Pow er of Interpersonal Communications Professor? Yes May 13, 2024 11:42pm Name of Medical Power of Interpersonal Communications Professor May 13, 2024 11:42pm Living Will Yes May 15, 2024 11:23pm Do you have a Healthcare Pow er of Interpersonal Communications Professor? Yes May 15, 2024 11:23pm Name of Medical Power of Interpersonal Communications Professor Ta May 15, 2024 11:23pm Living Will Yes May 30, 2024 11:12am Do you have a Healthcare Pow er of Interpersonal Communications Professor? Yes May 30, 2024 11:12am Name of Medical Power of Interpersonal Communications Professor Ta Walker May 30, 2024 11:12am Living Will Yes June 02, 2024 8:31am Do you have a Healthcare Pow er of Interpersonal Communications Professor? Yes June 02, 2024 8:31am Name of Medical Power of Interpersonal Communications Professor rodrigo Raygoza June 02, 2024 8:31am Advance Directives Yes July 28 12:32pm Advance Directive Response Recorded Date/ Time Living Will Yes May 05, 2024 4:45am Do you have a Healthcare Pow er of Interpersonal Communications Professor? Yes May 05, 2024 4:45am Living Will Yes May 13, 2024 11:42pm Do you have a Healthcare Pow er of Interpersonal Communications Professor? Yes May 13, 2024 11:42pm Name of Medical Power of Interpersonal Communications Professor May 13, 2024 11:42pm Living Will Yes May 15, 2024 11:23pm Do you have a Healthcare Pow er of Interpersonal Communications Professor? Yes May 15, 2024 11:23pm Name of Medical Power of Interpersonal Communications Professor aT May 15, 2024 11:23pm Living Will Yes May 30, 2024 11:12am Do you have a Healthcare Pow er of Interpersonal Communications Professor? Yes May 30, 2024 11:12am Name of Medical Power of Interpersonal Communications Professor Ta Walker May 30, 2024 11:12am Living Will Yes June 02, 2024 8:31am Do you have a Healthcare Pow er of Interpersonal Communications Professor? Yes June 02, 2024 8:31am Name of Medical Power of Interpersonal Communications Professor rodrigo Raygoza June 02, 2024 8:31am Living Will Yes June 04, 2024 9:47pm Do you have a Healthcare Pow er of Interpersonal Communications Professor? Yes June 04, 2024 9:47pm Advance Directives Yes July 28 12:32pm Advance Directive Response Recorded Date/ Time Living Will Yes May 05, 2024 4:45am Do you have a Healthcare Pow er of Interpersonal Communications Professor? Yes May 05, 2024 4:45am Living Will Yes May 30, 2024 11:12am Do you have a Healthcare Pow er of Interpersonal Communications Professor? Yes May 30, 2024 11:12am Name of Medical Power of Interpersonal Communications Professor Ta Walker May 30, 2024 11:12am Living Will Yes June 02, 2024 8:31am Do you have a Healthcare Pow er of Interpersonal Communications Professor? Yes June 02, 2024 8:31am Name of Medical Power of Interpersonal Communications Professor rodrigo Raygoza June 02, 2024 8:31am Living Will Yes June 04, 2024 9:47pm Do you have a Healthcare Pow er of Interpersonal Communications Professor? Yes June 04, 2024 9:47pm Advance Directives Yes July 28 12:32pm Advance Directive Response Recorded Date/ Time Living Will Yes June 04, 2024 9:47pm Do you have a Healthcare Power of Interpersonal Communications Professor? Yes June 04, 2024 9:47pm Advance Directives Yes July 28 12:32pm Reason for Referral Status Reason Specialty Diagnoses / Procedures Referre d By Contact Referred To Contact Closed Radiology Diagnoses Bilateral carotid artery stenosis Procedures CT Angiogram Neck Vic Christie MD [address] [place] [address] Status Reason Specialty Diagnoses / Procedures Referred By Contact Referred To Contact Pending Review Cardiology Diagnoses Carotid stenosis, bilateral Procedures Carotid Duplex Vic Christie MD [address] [address] Status Reason Specialty Diagnoses / Procedures Referred By Contact Referred To Contact Pending Review Cardiology Diagnoses Bilateral carotid artery stenosis Procedures Carotid Duplex Vic Christie MD [address] [address] Status Reason Specialty Diagnoses / Procedures Referre d By Contact Referred To Contact Closed Cardiology Diagnoses Bilateral carotid artery stenosis Procedures Carotid Duplex Vic Christie MD [address] [address] Specialty Diagnoses / Procedures Referred By Contac t Referred To Contact Orthopedics Diagnoses Pain Procedures CONSULT TO ORTHOPAEDICS Arielle Lara APRN.MORTICIAN INVESTIGATOR [address] [place] [address] Referral ID Status Reason Start Date Expiration Date Visits Requested Visits Authorized [id number] Ref Not Required PCP Requested Referral 07/12/2022 07/12/2023 1 1 Specialty Diagnoses / Procedures Referred By Contac t Referred To Contact XR IMAGING Diagnoses Pain Procedures XR WRIST INJURY 4V PA/LAT/OBL/SCAPH RIGHT RADEX WRIST COMPLETE MINIMUM 3 VIEWS Arielle Lara APRN.MORTICIAN INVESTIGATOR [address] [place] [address] Xr Imaging Referral ID Status Reason Start Date Expiration Date V isits Requested Visits Authorized [id number] Closed Auto-Generate d Referral 07/12/2022 08/11/2023 1 1 Specialty Diagnoses / Procedures Referred By Contac t Referred To Contact XR IMAGING Diagnoses Pain Procedures XR SHOULDER GENERAL 3V OR MORE AP/TRUE AP/OTHER RIGHT RADEX SHOULDER COMPLETE MINIMUM 2 VIEWS Arielle Lara, SILK SCREEN CUTTER.MORTICIAN INVESTIGATOR [address] [place] [address] Xr Imaging Referral ID Status Reason Start Date Expiration Date V isits Requested Visits Authorized [id number] Closed Auto-Generate d Referral 07/12/2022 08/11/2023 1 1 Specialty Diagnoses / Procedures Referred By Contac t Referred To Contact CT IMAGING Diagnoses Injury of head, initial encounter Procedures CT BRAIN WO IVCON CT HEAD/BRAIN W/O CONTRAST MATERIAL Georgie Satllworth, SILK SCREEN CUTTER.MORTICIAN INVESTIGATOR [address] [place] [address] [place] [address] Referral ID Status Reason Start Date Expiration Date Visits Requested Visits Authorized [id number] Pending Review Auto-Genera mike Referral Patient Cleared - Admin/Chair man/Directo r advise to proceed or did not respond 01/05/2023 02/04/2024 1 1 Specialty Diagnoses / Procedures Referred By Contac t Referred To Contact US IMAGING Diagnoses Dysphagia, unspecified type History of thyroid nodule Procedures US THYROID/PARATHYROID US SOFT TISSUE HEAD & NECK REAL TIME IMGE DOCM Georgie Stallworth, SILK SCREEN CUTTER.MORTICIAN INVESTIGATOR [address] [place] [address] [place] [address] Referral ID Status Reason Start Date Expiration Date V isits Requested Visits Authorized [id number] Closed Auto-Generate d Referral 01/05/2023 02/04/2024 1 1 Specialty Diagnoses / Procedures Referred By Contac t Referred To Contact General Surgery Diagnoses Thyroid nodule Procedures CONSULT TO GENERAL SURGERY OFFICE/OUTPATIENT [facility] 60-74 MINUTES Georgie Stallworth, SILK SCREEN CUTTER.MORTICIAN INVESTIGATOR [address] [place] [address] Referral ID Status Reason Start Date Expiration Date Visits Requested Visits Authorized [id number] Authorized PCP Requested Referral 01/06/2023 01/06/2024 1 1 Specialty Diagnoses / Procedures Referred By Contac t Referred To Contact CT IMAGING Diagnoses Renal carcinoma, right (HCC) Other cirrhosis of liver (HCC) Procedures CT ABD/PEL W IVCON CT ABD & PELVIS W/CONTRAST Flako Tracy MD [address] [place] [address] [place] [address] Referral ID Status Reason Start Date Expiration Date V isits Requested Visits Authorized [id number] Closed Auto-Generate d Referral 08/12/2022 09/11/2023 1 1 History of Present Illness * Vic Christie MD - 08/03/2018 10:13 AM EDT General Cardiology Clinic Follow-up Heart & [facility] 08/02/2018 Vic Christie MD [address] [facility] [address] Patient: Laisha Walker Date of : 1950 (68 y.o.) PCP: Divya Dockery MD Assessment & Plan Atrial fibrillation (HCC) EKG today looks good, tolerating warfarin and sotalol at 120 mg twice daily. Rare episodes of paroxysmal atrial fibrillation, not enough to justify an increase in medication. No changes HTN (hypertension) Blood pressure is well controlled on losartan hydrochlorothiazide 50/12.5 mg half a tablet daily Dyslipidemia associated with type 2 diabetes mellitus (HCC) Previous attempts at statins were not well-tolerated, specifically trying Zocor, Lipitor and Crestor. She tells me she is fasting today so we will check a lipid profile and we did talk about Zetia aswell as PCSK 9 inhibitors CVA (cerebral vascular accident) (HCC) Postoperative stroke 2016 and it was unclear if it was related to A. fib and a subtherapeutic INR versus carotid stenosis. She has done well on her current regimen. Bilateral carotid artery stenosis She had a carotid duplex in the past that suggested severe stenosis with CTA showing only 70% disease. I will repeat the duplex looking for a change in velocities. We talked about the potential need for revascularization if it is over 80% stenotic. She had questions if she would even pursue this. We will discuss it again if it is significantly changed Follow-up: Return in about 6 months (around 02/02/2019). Chief Complaint: Follow-up (pt would like to discuss cardiac testing ordered before proceeding ) and Medication Management (please discuss Hyzaar ) Subjective History of Present Illness: Laisha Walker is a 68 y.o. female who comes in today for routine cardiac follow- up. She states overall, she feels about the same. She states that her shortness of breath with exertion is chronic and unchanged. She denies any chest pain. She denies any lightheadedness or dizziness. She does states she has had 1 or 2 episodes of atrial fibrillation since I last saw her lasting only for a few minutes. We reviewed her carotid imaging. This included a duplex that suggested severe stenosis but the CTA suggested only 70% stenosis. Objective EKG shows sinus rhythm with isolated T wave inversion in lead III, unchanged from previous. ECG 12 Lead Final Result by Vic Christie MD (08/02/2018 1142) Review of Systems: The following system(s) were reviewed and negative. Pertinent positive and negative findings are noted in the HPI. [x] Const [x] Eyes [x] ENT [x] Resp [] CV [x] GI [x] [x] Neuro [x] Musc [x] Skin [x] Psych [x] Endo [x] Allergy [x] Heme/Lymph HOME Medications: Current Outpatient Medications on File Prior to Visit Medication Sig albuterol sulfate (PROAIR HFA INHL) Inhale 1-2 puffs daily as needed. famotidine (PEPCID) 10 MG tablet Take 10 mg by mouth daily. glipiZIDE (GLUCOTROL) 5 MG tablet Take 5 mg by mouth 2 (two) times a day. HEALTHPRO GLUCOSE MONITOR Misc Use to check blood sugars once daily and as needed HEALTHPRO TEST STRIPS strips use to check blood sugar once daily and as needed loratadine (CLARITIN) 10 mg tablet Take 10 mg by mouth at bedtime. sotalol (BETAPACE) 120 MG tablet Take 1 (one) tablet (120 mg total) by mouth 2 (two) times a day. warfarin (COUMADIN) 5 MG tablet Take 1 (one) tablet (5 mg total) by mouth daily OR as directed Reasons: 5mg 5 day's a week 7.5mg two days a week. No current facility-administered medications on file prior to visit. Vital Signs: BP 125/81 (BP Location: Left arm, Patient Position: Sitting) Pulse 64 Ht 5' 4 Wt 93.7 kg (206 lb 8 oz) SpO2 94% BMI 35.45 kg/m Physical Exam Constitutional: She is oriented to person, place, and time. She appears well- developed and well-nourished. HENT: Head: Normocephalic and atraumatic. Nose: Nose normal. Mouth/Throat: Oropharynx is clear and moist. Eyes: Pupils are equal, round, and reactive to light. Conjunctivae and EOM are normal. Neck: Carotid bruit is present. Cardiovascular: Normal rate, regular rhythm, S1 normal, S2 normal, normal heart sounds and normal pulses. No cyanosis, clubbing or edema Pulmonary/Chest: Effort normal and breath sounds normal. Abdominal: Soft. She exhibits no distension. There is no tenderness. There is no guarding. Musculoskeletal: Normal range of motion. Neurological: She is alert and oriented to person, place, and time. Skin: Skin is warm and dry. Psychiatric: She has a normal mood and affect. Her behavior is normal. Judgment and thought contentnormal. Labs: I personally reviewed and interpreted the labs documented below. Lab Results Component Value Date CHOL 277 (H) 08/02/2018 LDLCALC 170 (H) 08/02/2018 TRIG 330 (H) 08/02/2018 HDL 41 08/02/2018 Creatinine clearance cannot be calculated (Patient's most recent lab result is older than the maximum 14 days allowed.) * Cheli Talley MA - 08/02/2018 11:36 AM EDT Review of Systems Constitution: Positive for malaise/fatigue. Negative for diaphoresis, weight gain and weight loss. HENT: Positive for hearing loss and tinnitus. Negative for nosebleeds. Eyes: Positive for blurred vision. Negative for visual disturbance. Cardiovascular: Positive for dyspnea on exertion, irregular heartbeat, leg swelling and palpitations. Negative for chest pain, claudication, cyanosis, near-syncope, orthopnea, paroxysmal nocturnal dyspnea and syncope. Sleeps on elevated pillow Respiratory: Positive for shortness of breath and snoring. Negative for hemoptysis. Endocrine: Negative for cold intolerance and heat intolerance. Hematologic/Lymphatic: Bruises/bleeds easily. Skin: Negative for flushing, poor wound healing and rash. Musculoskeletal: Positive for arthritis and back pain. Negative for muscle weakness and myalgias. Gastrointestinal: Negative for abdominal pain, change in bowel habit, melena, nausea and vomiting. Genitourinary: Positive for hematuria. Negative for decreased libido. Neurological: Positive for loss of balance and numbness. Psychiatric/Behavioral: Negative for memory loss. The patient is not nervous/anxious. documented in this encounter* Vic Christie MD - 01/31/2019 1:37 PM EST Interventional Cardiology Clinic Follow-up Heart & [facility]ascular [facility] 01/31/2019 Vic Christie MD [address] [place] [address] Patient: Laisha Walker Date of : 1950 (68 y.o.) PCP: Divya Dockery MD Assessment & Plan Atrial fibrillation (HCC) She feels she is maintaining NSR most of the time -- rare complaints of perhaps recurrent atrial fibrillation -- she feels not bad enough to warrant higher dose of sotalol -- tolerating warfarin withtarget INR 2-3. No changes. HTN (hypertension) Blood pressure is well controlled on losartan hydrochlorothiazide 50/12.5 mg half a tablet daily Dyslipidemia associated with type 2 diabetes mellitus (HCC) Previous attempts at statins were not well-tolerated, specifically trying Zocor, Lipitor and Crestor. LDL is high from labs this year - she is not interested in another new med CVA (cerebral vascular accident) (HCC) Postoperative stroke 2017 and it was unclear if it was related to A. fib and a subtherapeutic INR versus carotid stenosis. She has done well on her current regimen. Bilateral carotid artery stenosis She had a carotid duplex in the past that suggested severe stenosis with CTA showing only 70% disease. I will repeat the duplex looking for a change in velocities. We talked about the potential need for revascularization if it is over 80% stenotic. She had questions if she would even pursue this. Follow-up: Return in about 6 months (around 08/01/2019). Chief Complaint: Follow-up (6 mo f/u. No complaints or concerns for todays visit. Medications reviewed; no refills at this time ) Subjective History of Present Illness: Laisha Walker is a 68 y.o. female who comes in today for routine cardiac follow- up. Overall, she states she is doing reasonably well. Her biggest complaint is related to right hip bursitis. Since herlast visit, she thinks she had less than 5 episodes of atrial fibrillation all lasting less than a minute. She denies any symptoms to suggest recurrent stroke. She denies any blood in her stool or urine. Her INR from last week was 2.3. Objective ECG 12 Lead Final Result by Vic Christie MD (08/02/2018 1142) Review of Systems: The following system(s) were reviewed and negative. Pertinent positive and negative findings are noted in the HPI. [x] Const [x] Eyes [x] ENT [x] Resp [] CV [x] GI [x] [x] Neuro [x] Musc [x] Skin [x] Psych [x] Endo [x] Allergy [x] Heme/Lymph HOME Medications: Current Outpatient Medications on File Prior to Visit Medication Sig albuterol sulfate (PROAIR HFA INHL) Inhale 1-2 puffs daily as needed. famotidine (PEPCID) 10 MG tablet Take 10 mg by mouth daily. glipiZIDE (GLUCOTROL) 5 MG tablet Take 5 mg by mouth 2 (two) times a day. HEALTHPRO GLUCOSE MONITOR Misc Use to check blood sugars once daily and as needed HEALTHPRO TEST STRIPS strips use to check blood sugar once daily and as needed loratadine (CLARITIN) 10 mg tablet Take 10 mg by mouth at bedtime. losartan-hydrochlorothiazide (HYZAAR) 50-12.5 mg per tablet Take 0.5 (one-half) tablet by mouth daily . sotalol (BETAPACE) 120 MG tablet Take 1 (one) tablet (120 mg total) by mouth 2 (two) times a day . warfarin (COUMADIN) 5 MG tablet Take 1 (one) tablet (5 mg total) by mouth daily OR as directed Reasons: 5mg 5 day's a week 7.5mg two days a week. No current facility-administered medications on file prior to visit. Vital Signs: BP 137/80 (BP Location: Left arm, Patient Position: Sitting) Pulse 65 Ht 5' 4 Wt 93.9 kg (207 lb) SpO2 96% BMI 35.53 kg/m Physical Exam Constitutional: She is oriented to person, place, and time. She appears well- developed and well-nourished. HENT: Head: Normocephalic and atraumatic. Nose: Nose normal. Mouth/Throat: Oropharynx is clear and moist. Eyes: Pupils are equal, round, and reactive to light. Conjunctivae and EOM are normal. Neck: Carotid bruit is present. Cardiovascular: Normal rate, regular rhythm, S1 normal, S2 normal, normal heart sounds and normal pulses. No cyanosis, clubbing or edema Pulmonary/Chest: Effort normal and breath sounds normal. Abdominal: Soft. She exhibits no distension. There is no abdominal tenderness. There is no guarding. Musculoskeletal: Normal range of motion. Neurological: She is alert and oriented to person, place, and time. Skin: Skin is warm and dry. Psychiatric: She has a normal mood and affect. Her behavior is normal. Judgment and thought contentnormal. Labs: I personally reviewed and interpreted the labs documented below. Lab Results Component Value Date CHOL 277 (H) 08/02/2018 LDLCALC 170 (H) 08/02/2018 TRIG 330 (H) 08/02/2018 HDL 41 08/02/2018 Creatinine clearance cannot be calculated (Patient's most recent lab result is older than the maximum 14 days allowed.) * Cheli Talley MA - 01/31/2019 11:49 AM EST Review of Systems Constitution: Positive for malaise/fatigue. Negative for diaphoresis, weight gain and weight loss. HENT: Positive for hearing loss and tinnitus. Negative for nosebleeds. Eyes: Negative for blurred vision and visual disturbance. Cardiovascular: Positive for dyspnea on exertion and palpitations. Negative for chest pain, claudication, cyanosis, irregular heartbeat, leg swelling, near- syncope, orthopnea, paroxysmal nocturnal dyspnea and syncope. Sleeps on elevated pillow Respiratory: Positive for shortness of breath. Negative for hemoptysis and snoring. Endocrine: Negative for cold intolerance and heat intolerance. Hematologic/Lymphatic: Does not bruise/bleed easily. Skin: Negative for flushing, poor wound healing and rash. Musculoskeletal: Positive for back pain and myalgias. Negative for muscle weakness. Gastrointestinal: Negative for abdominal pain, change in bowel habit, melena, nausea and vomiting. Genitourinary: Negative for decreased libido and hematuria. Neurological: Positive for loss of balance and numbness. Psychiatric/Behavioral: Negative for memory loss. The patient is not nervous/anxious. 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 Multiple falls Orthostatic hypotension PAF (paroxysmal atrial fibrillation) Chief Complaint HEMORIOD THROMBOSSED HEMORRHOID FALL ORTHOSTATIC HYPOTENSION D/T ADVERSE DRUG REACTION ORTHOSTATIC HYPOTENSION D/T ADVERSE DRUG REACTION S/P [facility] 01/15/NEEDS EKG PER NN Reason for Visit Adverse drug reactio n Dizziness USP (current) use of 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 Multiple falls Orthostatic hypotension PAF (paroxysmal atrial fibrillation) Right hip pain HTN (hypertension) PAF (paroxysmal atrial fibrillation) Chief Complaint HEMORIOD THROMBOSSED HEMORRHOID FALL ORTHOSTATIC HYPOTENSION D/T ADVERSE DRUG REACTION ORTHOSTATIC HYPOTENSION D/T ADVERSE DRUG REACTION S/P [facility] 01/15/NEEDS EKG PER NN DIZZINESS CONSTIPATION Reason for Visit Adverse drug reactio n 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 Multiple falls Orthostatic hypotension PAF (paroxysmal atrial fibrillation) Right hip pain HTN (hypertension) PAF (paroxysmal atrial fibrillation) Chief Complaint FALL ORTHOSTATIC HYPOTENSION D/T ADVERSE DRUG REACTION ORTHOSTATIC HYPOTENSION D/T ADVERSE DRUG REACTION S/P [facility] 01/15/NEEDS EKG PER NN DIZZINESS CONSTIPATION possible thrombosed hemorrhoid Amb Documentation S/O INR DRAW INT LABS Reason for Visit Adverse drug reactio n Dizziness Multiple falls Orthostatic hypotension PAF (paroxysmal atrial fibrillation) Right hip pain HTN (hypertension) PAF (paroxysmal atrial fibrillation) Hemorrhoids, thrombosed Chief Complaint FALL ORTHOSTATIC HYPOTENSION D/T ADVERSE DRUG REACTION ORTHOSTATIC HYPOTENSION D/T ADVERSE DRUG REACTION S/P [facility] 01/15/NEEDS EKG PER NN DIZZINESS CONSTIPATION possible thrombosed hemorrhoid Amb Documentation S/O INR DRAW INT LABS Pacer Check Remote [facility] [place] [facility] IMPLANT (SCANNED) / MMM @ 930 S/P [facility] 11/20 PPM IMPLANT / TALHA @ 9 (SCANNED) STANDING ORDER Reason for Visit Adverse drug reactio n Dizziness Multiple falls Orthostatic hypotension PAF (paroxysmal atrial fibrillation) Right hip pain HTN (hypertension) PAF (paroxysmal atrial fibrillation) Hemorrhoids, thrombosed S/P placement of cardiac pacemaker Complete heart block HTN (hypertension) PAF (paroxysmal atrial fibrillation) S/P placement of cardiac pacemaker Chief Complaint ORTHOSTATIC HYPOTENS ION D/T ADVERSE DRUG REACTION ORTHOSTATIC HYPOTENSION D/T ADVERSE DRUG REACTION S/P [facility] 01/15/NEEDS EKG PER NN DIZZINESS CONSTIPATION possible thrombosed hemorrhoid Amb Documentation S/O INR DRAW INT LABS Pacer Check Remote [facility] IMPLANT (SCANNED) / MMM @ 930 S/P [facility] 11/20 PPM IMPLANT / TALHA @ 9 (SCANNED) STANDING ORDER I480 Reason for Visit Adverse drug reactio n Dizziness Multiple falls Orthostatic hypotension PAF (paroxysmal atrial fibrillation) Right hip pain HTN (hypertension) PAF (paroxysmal atrial fibrillation) Hemorrhoids, thrombosed S/P placement of cardiac pacemaker Complete heart block HTN (hypertension) PAF (paroxysmal atrial fibrillation) S/P placement of cardiac pacemaker Chief Complaint CONSTIPATION possible thrombosed hemorrhoid Amb Documentation S/O INR DRAW INT LABS Pacer Check Remote [facility] IMPLANT (SCANNED) / MMM @ 930 S/P [facility] 11/20 PPM IMPLANT / TALHA @ 9 (SCANNED) STANDING ORDER I480 Reason for Visit Hemorrhoids, thrombo sed S/P placement of cardiac pacemaker Complete heart block HTN (hypertension) PAF (paroxysmal atrial fibrillation) S/P placement of cardiac pacemaker Chief Complaint Pacer Check Remote [facility] IMPLANT (SCANNED) / MMM @ 930 S/P [facility] 11/20 PPM IMPLANT / TALHA @ 9 (SCANNED) STANDING ORDER I480 Pacer Check Remote I480 Pacer Check Remote 3 M FU DIZZINESS Reason for Visit S/P placement of car diac pacemaker Complete heart block HTN (hypertension) PAF (paroxysmal atrial fibrillation) S/P placement of cardiac pacemaker Bilateral carotid artery stenosis HTN (hypertension) PAF (paroxysmal atrial fibrillation) S/P placement of cardiac pacemaker Chief Complaint STANDING ORDER I480 Pacer Check Remote I480 Pacer Check Remote 3 M FU DIZZINESS fall Reason for Visit Bilateral carotid ar augustina stenosis HTN (hypertension) PAF (paroxysmal atrial fibrillation) S/P placement of cardiac pacemaker Chief Complaint FALL ORTHOSTATIC HYPOTENSION D/T ADVERSE DRUG REACTION ORTHOSTATIC HYPOTENSION D/T ADVERSE DRUG REACTION S/P [facility] 01/15/NEEDS EKG PER NN DIZZINESS CONSTIPATION possible thrombosed hemorrhoid Amb Documentation S/O INR DRAW Reason for Visit Adverse drug reactio n Dizziness Multiple falls Orthostatic hypotension PAF (paroxysmal atrial fibrillation) Right hip pain HTN (hypertension) PAF (paroxysmal atrial fibrillation) Hemorrhoids, thrombosed Chief Complaint Admit Date INR January 30, 2024 2:22pm Pacer Check Remote March 12, 2024 2: 00am INR March 29, 2024 1 :38pm Pacer Check Remote April 18, 2024 9:00am Annual In-Clinic Check/sees MH @ 2pm [facility] 2024 1:23pm INR May 02, 2024 3:00pm KNOWN LICA STENOSIS WITH DIZZINESS May 11, 2024 7:44am general illness May 13, 2024 11:4 1pm Reason for Visit Admit Date Asymmetric septal hypertrophy April 072024 1:23pm HLD (hyperlipidemia) April 18, 2024 1:23pm Bilateral carotid artery stenosis Februa 2024 1:23pm Chronic anticoagulation April 18, 2 025 1:23pm HTN (hypertension) April 18, 2024 1:23pm PAF (paroxysmal atrial fibrillation) [facility] 2024 1:23pm S/P placement of cardiac pacemaker Febr [email or web address] 1:23pm Complete heart block April 18, 2024 1:23pm Chief Complaint Admit Date INR January 30, 2024 2:22pm Pacer Check Remote March 12, 2024 2: 00am INR March 29, 2024 1 :38pm Pacer Check Remote April 18, 2024 9:00am Annual In-Clinic Check/sees @ 2pm [facility] 2024 1:23pm INR May 02, 2024 3:00pm KNOWN LICA STENOSIS WITH DIZZINESS May 11, 2024 7:44am general illness May 13, 2024 11:4 1pm UGIB WITH MELANOTIC STOOLS & ADVERSE CRISTIANA G REACTION May 15, 2024 10:27pm Chief Complaint Admit Date INR January 30, 2024 2:22pm Pacer Check Remote March 12, 2024 2: 00am INR March 29, 2024 1 :38pm Pacer Check Remote April 18, 2024 9:00am Annual In-Clinic Check/sees MH @ 2pm [facility] [place] 2024 1:23pm INR May 02, 2024 3:00pm KNOWN LICA STENOSIS WITH DIZZINESS May 11, 2024 7:44am general illness May 13, 2024 11:4 1pm UGIB WITH MELANOTIC STOOLS & ADVERSE CRISTIANA G REACTION May 15, 2024 10:27pm UGIB WITH MELANOTIC STOOLS & ADVERSE CRISTIANA G REACTION May 16, 2024 8:40am UGIB WITH MELANOTIC STOOLS & ADVERSE CRISTIANA G REACTION May 16, 2024 4:10pm UGIB WITH MELANOTIC STOOLS & ADVERSE CRISTIANA G REACTION May 17, 2024 7:38am Reason for Visit Admit Date Asymmetric septal hypertrophy April 072024 1:23pm HLD (hyperlipidemia) April 18, 2024 1:23pm Bilateral carotid artery stenosis Februa ry 2024 1:23pm Chronic anticoagulation April 18 1:23pm HTN (hypertension) April 18, 2024 1:23pm PAF (paroxysmal [facility] 1:23pm S/P placement of cardiac pacemaker [email or web address] 1:23pm Complete heart block April 18, 2024 1:23pm Adverse drug reaction May 15, 2024 1 0:27pm Cirrhosis of liver not due to alcohol [facility] 2024 10:27pm Debility May 15, 2024 10: 27pm Ethmoidal sinusitis May 15, 2024 10: 27pm GI bleed May 15, 2024 10: 27pm Influenza A May 15, 2024 10: 27pm Melanotic stools May 15, 2024 10: 27pm Obesity (BMI 30-39.9) May 15, 2024 1 0:27pm UGIB (upper gastrointestinal bleed) [facility] 2024 10:27pm PAF (paroxysmal atrial fibrillation) [facility] 2024 10:27pm Chief Complaint Admit Date INR January 30, 2024 2:22pm Pacer Check Remote March 12, 2024 2: 00am INR March 29, 2024 1 :38pm Pacer Check Remote April 18, 2024 9:00am Annual In-Clinic Check/sees MH @ 2pm Feb ruary 2024 1:23pm INR May 02, 2024 3:00pm KNOWN LICA STENOSIS WITH DIZZINESS May 11, 2024 7:44am general illness May 13, 2024 11:4 1pm UGIB WITH MELANOTIC STOOLS & ADVERSE CRISTIANA G REACTION May 15, 2024 10:27pm UGIB WITH MELANOTIC STOOLS & ADVERSE CRISTIANA G REACTION May 16, 2024 8:40am UGIB WITH MELANOTIC STOOLS & ADVERSE CRISTIANA G REACTION May 16, 2024 4:10pm UGIB WITH MELANOTIC STOOLS & ADVERSE CRISTIANA G REACTION May 17, 2024 7:38am INR May 18, 2024 2:5 6pm Reason for Visit Admit Date Asymmetric septal hypertrophy April 072024 1:23pm HLD (hyperlipidemia) April 18, 2024 1:23pm Bilateral carotid artery stenosis Februa ry 2024 1:23pm Chronic anticoagulation April 18 1:23pm HTN (hypertension) April 18, 2024 1:23pm S/P placement of cardiac pacemaker [email or web address] 1:23pm PAF (paroxysmal atrial fibrillation) Fe ruary 2024 1:23pm Complete heart block April 18, 2024 1:23pm Adverse drug reaction May 15, 2024 1 0:27pm Debility May 15, 2024 10: 27pm Ethmoidal sinusitis May 15, 2024 10: 27pm GI bleed May 15, 2024 10: 27pm Influenza A May 15, 2024 10: 27pm Melanotic stools May 15, 2024 10: 27pm UGIB (upper gastrointestinal bleed) [facility] 2024 10:27pm Cirrhosis of liver not due to alcohol [facility] 2024 10:27pm Obesity (BMI 30-39.9) May 15, 2024 1 0:27pm PAF (paroxysmal atrial fibrillation) [facility] 2024 10:27pm Chief Complaint Admit Date Pacer Check Remote March 12, 2024 2: 00am INR March 29, 2024 1 :38pm Pacer Check Remote April 18, 2024 9:00am Annual In-Clinic Check/sees MH @ 2pm Feb ruary 2024 1:23pm INR May 02, 2024 3:00pm KNOWN LICA STENOSIS WITH DIZZINESS May 11, 2024 7:44am general illness May 13, 2024 11:4 1pm UGIB WITH MELANOTIC STOOLS & ADVERSE CRISTIANA G REACTION May 15, 2024 10:27pm UGIB WITH MELANOTIC STOOLS & ADVERSE CRISTIANA G REACTION May 16, 2024 8:40am UGIB WITH MELANOTIC STOOLS & ADVERSE CRISTIANA G REACTION May 16, 2024 4:10pm UGIB WITH MELANOTIC STOOLS & ADVERSE CRISTIANA G REACTION May 17, 2024 7:38am INR May 24, 2024 12: 33pm cp,sob May 30, 2024 10: 45am Chief Complaint Admit Date Pacer Check Remote March 12, 2024 2: 00am INR March 29, 2024 1 :38pm Pacer Check Remote April 18, 2024 9:00am Annual In-Clinic Check/sees MH @ 2pm [facility] 2024 1:23pm INR May 02, 2024 3:00pm KNOWN LICA STENOSIS WITH DIZZINESS May 11, 2024 7:44am general illness May 13, 2024 11:4 1pm UGIB WITH MELANOTIC STOOLS & ADVERSE CRISTIANA G REACTION May 15, 2024 10:27pm UGIB WITH MELANOTIC STOOLS & ADVERSE CRISTIANA G REACTION May 16, 2024 8:40am UGIB WITH MELANOTIC STOOLS & ADVERSE CRISTIANA G REACTION May 16, 2024 4:10pm UGIB WITH MELANOTIC STOOLS & ADVERSE CRISTIANA G REACTION May 17, 2024 7:38am INR May 24, 2024 12: 33pm cp,sob May 30, 2024 10: 45am FALLS/WEAKNESS June 02, 2024 7:1 3am Reason for Visit Admit Date Asymmetric septal hypertrophy April 072024 1:23pm HLD (hyperlipidemia) April 18, 2024 1:23pm Bilateral carotid artery stenosis Februa ry 2024 1:23pm Chronic anticoagulation April 18 1:23pm HTN (hypertension) April 18, 2024 1:23pm S/P placement of cardiac pacemaker [email or web address] 1:23pm PAF (paroxysmal [facility] 1:23[facility] Complete heart block April 18, 2024 1:23pm Adverse drug reaction May 15, 2024 1 0:27pm Debility May 15, 2024 10: 27pm Ethmoidal sinusitis May 15, 2024 10: 27pm GI bleed May 15, 2024 10: 27pm Influenza A May 15, 2024 10: 27pm Melanotic stools May 15, 2024 10: 27pm UGIB (upper gastrointestinal bleed) [facility] 2024 10:27pm Cirrhosis of liver not due to alcohol [facility] 2024 10:27pm Obesity (BMI 30-39.9) May 15, 2024 1 0:27pm PAF (paroxysmal atrial fibrillation) [facility] 2024 10:27pm Current use of assisted anticoagulation June 02, 2024 7:13am Debility June 02, 2024 7:1 3am Elevated troponin June 02, 2024 7:1 3am Fall June 02, 2024 7:1 3am Generalized weakness June 02, 2024 7: 13am Chief Complaint Admit Date Pacer Check Remote March 12, 2024 2: 00am INR March 29, 2024 1 :38pm Pacer Check Remote April 18, 2024 9:00am Annual In-Clinic Check/sees MH @ 2pm [facility] [place] 2024 1:23pm INR May 02, 2024 3:00pm KNOWN LICA STENOSIS WITH DIZZINESS May 11, 2024 7:44am general illness May 13, 2024 11:4 1pm UGIB WITH MELANOTIC STOOLS & ADVERSE CRISTIANA G REACTION May 15, 2024 10:27pm UGIB WITH MELANOTIC STOOLS & ADVERSE CRISTIANA G REACTION May 16, 2024 8:40am UGIB WITH MELANOTIC STOOLS & ADVERSE CRISTIANA G REACTION May 16, 2024 4:10pm UGIB WITH MELANOTIC STOOLS & ADVERSE CRISTIANA G REACTION May 17, 2024 7:38am INR May 24, 2024 12: 33pm cp,sob May 30, 2024 10: 45am FALLS/WEAKNESS June 02, 2024 7:1 3am FALLS/WEAKNESS June 02, 2024 7:2 1am FALLS/WEAKNESS June 03, 2024 8:5 7am FALLS/WEAKNESS June 04, 2024 8:0 5am Reason for Visit Admit Date Asymmetric septal hypertrophy April 072024 1:23pm HLD (hyperlipidemia) April 18, 2024 1:23pm Bilateral carotid artery stenosis Februa ry 2024 1:23pm Chronic anticoagulation April 18 1:23pm HTN (hypertension) April 18, 2024 1:23pm S/P placement of cardiac pacemaker Febru yoshi 2024 1:23pm PAF (paroxysmal atrial fibrillation) Feb ruary 2024 1:23pm Complete heart block April 18, 2024 1:23pm Adverse drug reaction May 15, 2024 1 0:27pm Debility May 15, 2024 10: 27pm Ethmoidal sinusitis May 15, 2024 10: 27pm GI bleed May 15, 2024 10: 27pm Influenza A May 15, 2024 10: 27pm Melanotic stools May 15, 2024 10: 27pm UGIB (upper gastrointestinal bleed) [facility] 2024 10:27pm Cirrhosis of liver not due to alcohol [facility] 2024 10:27pm Obesity (BMI 30-39.9) May 15, 2024 1 0:27pm PAF (paroxysmal atrial fibrillation) [facility] 2024 10:27pm 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 June 02, 2024 7:13am Debility June 02, 2024 7:1 3am Dysuria June 02, 2024 7:1 3am Elevated troponin June 02, 2024 7:1 3am Fall June 02, 2024 7:1 3am Generalized weakness June 02, 2024 7: 13am Chief Complaint Admit Date Pacer Check Remote March 12, 2024 2: 00am INR March 29, 2024 1 :38pm Pacer Check Remote April 18, 2024 9:00am Annual In-Clinic Check/sees MH @ 2pm Feb ruary 2024 1:23pm INR May 02, 2024 3:00pm KNOWN LICA STENOSIS WITH DIZZINESS May 11, 2024 7:44am general illness May 13, 2024 11:4 1pm UGIB WITH MELANOTIC STOOLS & ADVERSE CRISTIANA G REACTION May 15, 2024 10:27pm UGIB WITH MELANOTIC STOOLS & ADVERSE CRISTIANA G REACTION May 16, 2024 8:40am UGIB WITH MELANOTIC STOOLS & ADVERSE CRISTIANA G REACTION May 16, 2024 4:10pm UGIB WITH MELANOTIC STOOLS & ADVERSE CRISTIANA G REACTION May 17, 2024 7:38am INR May 24, 2024 12: 33pm cp,sob May 30, 2024 10: 45am FALLS/WEAKNESS June 02, 2024 7:1 3am FALLS/WEAKNESS June 02, 2024 7:2 1am FALLS/WEAKNESS June 03, 2024 8:5 7am FALLS/WEAKNESS June 04, 2024 8:0 5am FALLS/WEAKNESS June 05, 2024 7:23 am Chief Complaint Admit Date INR March 29, 2024 1 :38pm Pacer Check Remote April 18, 2024 9:00am Annual In-Clinic Check/sees MH @ 2pm [facility] [place] 2024 1:23pm INR May 02, 2024 3:00pm KNOWN LICA STENOSIS WITH DIZZINESS May 11, 2024 7:44am general illness May 13, 2024 11:4 1pm UGIB WITH MELANOTIC STOOLS & ADVERSE CRISTIANA G REACTION May 15, 2024 10:27pm UGIB WITH MELANOTIC STOOLS & ADVERSE CRISTIANA G REACTION May 16, 2024 8:40am UGIB WITH MELANOTIC STOOLS & ADVERSE CRISTIANA G REACTION May 16, 2024 4:10pm UGIB WITH MELANOTIC STOOLS & ADVERSE CRISTIANA G REACTION May 17, 2024 7:38am INR May 24, 2024 12: 33pm cp,sob May 30, 2024 10: 45am FALLS/WEAKNESS June 02, 2024 7:1 3am FALLS/WEAKNESS June 02, 2024 7:2 1am FALLS/WEAKNESS June 03, 2024 8:5 7am FALLS/WEAKNESS June 04, 2024 8:0 5am FALLS/WEAKNESS June 05, 2024 7:23 am Pacer Check Remote June 11, 2024 2:00 am Liver Issues June 13, 2024 1:50 pm Carotid Artery Stenosis June 22, 2024 8:24am INT ORDERS July 11, 2024 1:27pm DYSURIA July 13, 2024 11:37a m Reason for Visit Admit Date Asymmetric septal hypertrophy April 072024 1:23pm HLD (hyperlipidemia) April 18, 2024 1:23pm Bilateral carotid artery stenosis Februa ry 2024 1:23pm Chronic anticoagulation April 18 1:23pm HTN (hypertension) April 18, 2024 1:23pm S/P placement of cardiac pacemaker Febru yoshi 2024 1:23pm PAF (paroxysmal atrial fibrillation) Feb ruary 2024 1:23pm Complete heart block April 18, 2024 1:23pm Adverse drug reaction May 15, 2024 1 0:27pm Debility May 15, 2024 10: 27pm Ethmoidal sinusitis May 15, 2024 10: 27pm GI bleed May 15, 2024 10: 27pm Influenza A May 15, 2024 10: 27pm Melanotic stools May 15, 2024 10: 27pm UGIB (upper gastrointestinal bleed) [facility] 2024 10:27pm Cirrhosis of liver not due to alcohol [facility] 2024 10:27pm Obesity (BMI 30-39.9) May 15, 2024 1 0:27pm PAF (paroxysmal atrial fibrillation) [facility] 2024 10:27pm Debility June 02, 2024 7:1 3am Dysuria June 02, 2024 7:1 3am Elevated troponin June 02, 2024 7:1 3am Fall June 02, 2024 7:1 3am Generalized weakness June 02, 2024 7: 13am 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 June 02, 2024 7:13am Duodenal ulcer June 13, 2024 1:50 pm Abdominal pain June 13, 2024 1:50 pm Cirrhosis June 13, 2024 1:50 pm Elevated CA 19-9 level June 13, 2024 1 :50pm Left carotid artery occlusion June 8:24am Stenosis of right carotid artery June 052024 8:24am Chief Complaint Admit Date KNOWN LICA STENOSIS WITH DIZZINESS May 11, 2024 7:44am general illness May 13, 2024 11:4 1pm UGIB WITH MELANOTIC STOOLS & ADVERSE CRISTIANA G REACTION May 15, 2024 10:27pm UGIB WITH MELANOTIC STOOLS & ADVERSE CRISTIANA G REACTION May 16, 2024 8:40am UGIB WITH MELANOTIC STOOLS & ADVERSE CRISTIANA G REACTION May 16, 2024 4:10pm UGIB WITH MELANOTIC STOOLS & ADVERSE CRISTIANA G REACTION May 17, 2024 7:38am INR May 24, 2024 12: 33pm cp,sob May 30, 2024 10: 45am FALLS/WEAKNESS June 02, 2024 7:1 3am FALLS/WEAKNESS June 02, 2024 7:2 1am FALLS/WEAKNESS June 03, 2024 8:5 7am FALLS/WEAKNESS June 04, 2024 8:0 5am FALLS/WEAKNESS June 05, 2024 7:23 am Pacer Check Remote June 11, 2024 2:00 am Liver Issues June 13, 2024 1:50 pm Carotid Artery Stenosis June 22, 2024 8:24am INT ORDERS July 11, 2024 1:27pm DYSURIA July 13, 2024 11:37a m INR August 13, 2024 9:11a m Reason for Visit Admit Date Adverse drug reaction May 15, 2024 1 0:27pm Debility May 15, 2024 10: 27pm Ethmoidal sinusitis May 15, 2024 10: 27pm GI bleed May 15, 2024 10: 27pm Influenza A May 15, 2024 10: 27pm Melanotic stools May 15, 2024 10: 27pm UGIB (upper gastrointestinal bleed) [facility] 2024 10:27pm Cirrhosis of liver not due to alcohol [facility] 2024 10:27pm Obesity (BMI 30-39.9) May 15, 2024 1 0:27pm PAF (paroxysmal atrial fibrillation) [facility] 2024 10:27pm Debility June 02, 2024 7:1 3am Dysuria June 02, 2024 7:1 3am Elevated troponin June 02, 2024 7:1 3am Fall June 02, 2024 7:1 3am Generalized weakness June 02, 2024 7: 13am 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 June 02, 2024 7:13am Duodenal ulcer June 13, 2024 1:50 pm Abdominal pain June 13, 2024 1:50 pm Cirrhosis June 13, 2024 1:50 pm Elevated CA 19-9 level June 13, 2024 1 :50pm Left carotid artery occlusion June 8:24am Stenosis of right carotid artery June 052024 8:24am Chief Complaint Admit Date INR May 24, 2024 12: 33pm cp,sob May 30, 2024 10: 45am FALLS/WEAKNESS June 02, 2024 7:1 3am FALLS/WEAKNESS June 02, 2024 7:2 1am FALLS/WEAKNESS June 03, 2024 8:5 7am FALLS/WEAKNESS June 04, 2024 8:0 5am FALLS/WEAKNESS June 05, 2024 7:23 am Pacer Check Remote June 11, 2024 2:00 am Liver Issues June 13, 2024 1:50 pm Carotid Artery Stenosis June 22, 2024 8:24am INT ORDERS July 11, 2024 1:27pm DYSURIA July 13, 2024 11:37a m INR August 13, 2024 9:11a m CIRRHOSIS, ELEVATED CA 19-9 September 12 8:17am INR September 12, 2024 8:20a m Reason for Visit Admit Date Debility June 02, 2024 7:1 3am Dysuria June 02, 2024 7:1 3am Elevated troponin June 02, 2024 7:1 3am Fall June 02, 2024 7:1 3am Generalized weakness June 02, 2024 7: 13am Current use of assisted anticoagulation June 02, 2024 7:13am Duodenal ulcer June 13, 2024 1:50 pm Abdominal pain June 13, 2024 1:50 pm Cirrhosis June 13, 2024 1:50 pm Elevated CA 19-9 level June 13, 2024 1 :50pm Left carotid artery occlusion June 8:24am Stenosis of right carotid artery June 052024 8:24am Chief Complaint Admit Date INR May 24, 2024 12: 33pm cp,sob May 30, 2024 10: 45am FALLS/WEAKNESS June 02, 2024 7:1 3am FALLS/WEAKNESS June 02, 2024 7:2 1am FALLS/WEAKNESS June 03, 2024 8:5 7am FALLS/WEAKNESS June 04, 2024 8:0 5am FALLS/WEAKNESS June 05, 2024 7:23 am Pacer Check Remote June 11, 2024 2:00 am Liver Issues June 13, 2024 1:50 pm Carotid Artery Stenosis June 22, 2024 8:24am INT ORDERS July 11, 2024 1:27pm DYSURIA July 13, 2024 11:37a m INR August 13, 2024 9:11a m Pacer Check Remote September 10, 2024 2:00a m CIRRHOSIS, ELEVATED CA 19-9 September 12 8:17am INR September 12, 2024 8:20a m Chief Complaint Admit Date Pacer Check Remote June 11, 2024 2:00 am Liver Issues June 13, 2024 1:50 pm Carotid Artery Stenosis June 22, 2024 8:24am INT ORDERS July 11, 2024 1:27pm DYSURIA July 13, 2024 11:37a m INR August 13, 2024 9:11a m Pacer Check Remote September 10, 2024 2:00a m CIRRHOSIS, ELEVATED CA 19-9 September 12 8:17am INR September 12, 2024 8:20a m Reason for Visit Admit Date Duodenal ulcer June 13, 2024 1:50 pm Abdominal pain June 13, 2024 1:50 pm Cirrhosis June 13, 2024 1:50 pm Elevated CA 19-9 level June 13, 2024 1 :50pm Left carotid artery occlusion June 8:24am Stenosis of right carotid artery June 052024 8:24am Chief Complaint Admit Date Carotid Artery Stenosis June 22, 2024 8:24am INT ORDERS July 11, 2024 1:27pm DYSURIA July 13, 2024 11:37a m INR August 13, 2024 9:11a m Pacer Check Remote September 10, 2024 2:00a m CIRRHOSIS, ELEVATED CA 19-9 September 12 8:17am INR September 12, 2024 8:20a m INR October 08, 2024 12: 11pm 6 M FU October 17, 2024 11 :32am Reason for Visit Admit Date Left carotid artery occlusion June 8:24am Stenosis of right carotid artery June 052024 8:24am Asymmetric septal hypertrophy October 11:32am HLD (hyperlipidemia) October 17, 2024 1 1:32am Bilateral carotid artery stenosis October 17, 2024 11:32am Chronic anticoagulation October 17 11:32am HTN (hypertension) October 17, 2024 11 :32am S/P placement of cardiac pacemaker Augus t 2024 11:32am PAF (paroxysmal atrial fibrillation) Aug ust 2024 11:32am Chief Complaint Admit Date INT ORDERS July 11, 2024 1:27pm DYSURIA July 13, 2024 11:37a m INR August 13, 2024 9:11a m Pacer Check Remote September 10, 2024 2:00a m CIRRHOSIS, ELEVATED CA 19-9 September 12 8:17am INR September 12, 2024 8:20a m 6 M FU October 17, 2024 11 :32am INR October 26, 2024 12 :10pm Reason for Visit Admit Date Asymmetric septal hypertrophy October 11:32am HLD (hyperlipidemia) October 17, 2024 1 1:32am Bilateral carotid artery stenosis October 17, 2024 11:32am Chronic anticoagulation October 17 11:32am HTN (hypertension) October 17, 2024 11 :32am S/P placement of cardiac pacemaker Augus t 2024 11:32am PAF (paroxysmal atrial fibrillation) Aug ust 2024 11:32am Chief Complaint Admit Date INR August 13, 2024 9:11a m Pacer Check Remote September 10, 2024 2:00a m CIRRHOSIS, ELEVATED CA 19-9 September 12 25 8:17am INR September 12, 2024 8:20a m 6 M FU October 17, 2024 11 :32am INR October 26, 2024 12 :10pm CARDIOMEGALY November 16, 2024 8:54am INR November 30, 2024 3:55pm Chief Complaint Admit Date INR August 13, 2024 9:11a m Pacer Check Remote September 10, 2024 2:00a m CIRRHOSIS, ELEVATED CA 19-9 September 12 20 25 8:17am INR September 12, 2024 8:20a m 6 M FU October 17, 2024 11 :32am INR October 26, 2024 12 :10pm CARDIOMEGALY November 16, 2024 8:54am INR November 30, 2024 3:55pm Pacer Check Remote December 10, 2024 2: 00am Health Concerns Infection Onset Date Last Indicated Resolved Time COVID-19 Rule-Out 11/25/2022 11/25/2022 11/25/2022 10:02 PM EDT Infection Onset Date Last Indicated Resolved Time COVID-19 Rule-Out 11/25/2022 11/25/2022 11/25/2022 10:02 PM EDT COVID-19 Confirmed 11/25/2022 11/25/2022 8:53 PM EDT Additional Source Comments Assessment & Plan Note - Vic Christie MD - 04/11/2017 8:21 AM ESTAssessment & Plan Note - Vic Christie MD - 04/11/2017 8:21 AM EST Miscellaneous Notes (unrecog nized section and content) Associated Problem(s): Dyslipidemia associated with type 2 diabetes [...] we will have to work through insurance. Associated Problem(s): Bilateral carotid artery stenosis History of mild disease in the right, 70% by noninvasive imaging per outside facility, I will repeat a duplex in May 2017 to make sure there has not been any progression. Associated Problem(s): CVA (cerebral vascular accident) (HCC) Postoperative stroke last year and it was unclear if it was related to A. fib and a subtherapeutic INR versus carotid stenosis. She has done well on her current regimen. I will repeat carotid duplex imaging. Associated Problem(s): HTN (hypertension) Her losartan hydrochlorothiazide was discontinued during hospitalization due to hypovolemia and acute kidney injury. Blood pressure is fantastic today at 117/78 yesterday was elevated in the 150s. I did not restart her medicines and I asked her to continue monitoring home blood pressure we can always restart it as needed. Associated Problem(s): Atrial fibrillation (HCC) She is in sinus rhythm today. Her EKGs during hospitalization for the flu also demonstrated sinus rhythm. Continue warfarin and sotalol, no changesin this encounter Associated Problem(s): Bilateral carotid artery stenosis She had a carotid duplex in the past that suggested severe stenosis with CTA showing only 70% disease. I will repeat the duplex looking for a change in velocities. We talked about the potential need for revascularization if it is over 80% stenotic. She had questions if she would even pursue this. We will discuss it again if it is significantly changed Associated Problem(s): CVA (cerebral vascular accident) (HCC) Postoperative stroke 2016 and it was unclear if it was related to A. fib and a subtherapeutic INR versus carotid stenosis. She has done well on her current regimen. Associated Problem(s): Dyslipidemia associated with type 2 diabetes mellitus (HCC) Previous attempts at statins were not well-tolerated, specifically trying Zocor, Lipitor and Crestor. She tells me she is fasting today so we will check a lipid profile and we did talk about Zetia as well as PCSK 9 inhibitors Associated Problem(s): HTN (hypertension) Blood pressure is well controlled on losartan hydrochlorothiazide 50/12.5 mg half a tablet daily Associated Problem(s): Atrial fibrillation (HCC) EKG today looks good, tolerating warfarin and sotalol at 120 mg twice daily. Rare episodes of paroxysmal atrial fibrillation, not enough to justify an increase in medication. No changes documented in this encounter Associated Problem(s): Bilateral carotid artery stenosis She had a carotid duplex in the past that suggested severe stenosis with CTA showing only 70% disease. I will repeat the duplex looking for a change in velocities. We talked about the potential need for revascularization if it is over 80% stenotic. She had questions if she would even pursue this. Associated Problem(s): CVA (cerebral vascular accident) (HCC) Postoperative stroke 2017 and it was unclear if it was related to A. fib and a subtherapeutic INR versus carotid stenosis. She has done well on her current regimen. Associated Problem(s): Dyslipidemia associated with type 2 diabetes mellitus (HCC) Previous attempts at statins were not well-tolerated, specifically trying Zocor, Lipitor and Crestor. LDL is high from labs this year - she is not interested in another new med Associated Problem(s): HTN (hypertension) Blood pressure is well controlled on losartan hydrochlorothiazide 50/12.5 mg half a tablet daily Associated Problem(s): Atrial fibrillation (HCC) She feels she is maintaining NSR most of the time -- rare complaints of perhaps recurrent atrial fibrillation -- she feels not bad enough to warrant higher dose of sotalol -- tolerating warfarin with target INR 2-3. No changes. documented in this encounter Pt last seen 01/23/2020, F/u in 4 months, Pt has OV 05/21/2020. Refilled Warfarin 5mg 5 days a week and 7.5mg 2 days a week. Will sent to [facility] not sure when pt should have INR recheck. documented in this encounter Pt last seen 01/23/2020, F/u in 4 months, Pt has OV 05/21/2020. Refilled Warfarin 5mg 5 days a week and 7.5mg 2 days a week. Will sent to [facility] not sure when pt should have INR recheck. documented in this encounter INFORMATION SOURCE (unrecogn ized section and content) DATE CREATED AUTHOR 08/26/2017 [facility] DATE CREATED AUTHOR AUTHOR'S ORGANIZ ATION 02/11/2018 [facility] DATE CREATED AUTHOR AUTHOR'S ORGANIZ ATION 09/28/2019 [facility] DATE CREATED AUTHOR AUTHOR'S ORGANIZ ATION 12/06/2019 [facility] DATE CREATED AUTHOR AUTHOR'S ORGANIZ ATION 02/15/2020 [facility] DATE CREATED AUTHOR AUTHOR'S ORGANIZ ATION 03/13/2023 [facility] DATE CREATED AUTHOR AUTHOR'S ORGANIZ ATION 10/28/2024 [facility] DATE CREATED AUTHOR AUTHOR'S ORGANIZ ATION 12/29/2024 [facility] DATE CREATED AUTHOR AUTHOR'S ORGANIZ ATION 01/11/2025 [facility] Reason for Visit (unrecogniz ed section and content) Reason Comments Radiology US Specialty Diagnoses / Procedures Referred By Contac t Referred To Contact [facility] IMAGING Diagnoses Hepatic cirrhosis, unspecified hepatic cirrhosis type, unspecified whether ascites present (HCC) Procedures US ASCITES SURVEY US ABDOMINAL REAL TIME W/IMAGE LIMITED Dariela Coulter PA-C [address] [place] [address] Phone: tel: fax: [place] [address] Referral ID Status Reason Start Date Expiration Date V isits Requested Visits Authorized [id number] Closed Auto-Generate d Referral 09/26/2024 10/26/2025 1 1 Specialty Diagnoses / Procedures Referred By Contac t Referred To Contact [facility] IMAGING Diagnoses Abnormal mammogram Procedures US BREAST LTD RT US BREAST UNI REAL TIME WITH IMAGE LIMITED Flako Tracy MD [address] [place] [address] Br Imaging [address] [place] [address] Referral ID Status Reason Start Date Expiration Date V isits Requested Visits Authorized [id number] Closed Auto-Generate d Referral 12/18/2021 01/17/2023 [address] Specialty Diagnoses / Procedures Referred By Contac t Referred To Contact CT IMAGING Diagnoses Renal carcinoma, right (HCC) Other cirrhosis of liver (HCC) Procedures CT ABD/PEL W IVCON CT ABD & PELVIS W/CONTRAST Flako Tracy MD [address] [place] [address] [place] [address] Referral ID Status Reason Start Date Expiration Date V isits Requested Visits Authorized [id number] Closed Auto-Generate d Referral 08/12/2022 09/11/2023 1 1 Status Reason Specialty Diagnoses / Procedures Referre d By Contact Referred To Contact Closed Radiology Diagnoses Bilateral carotid artery stenosis Procedures CT Angiogram Neck Vic Christie MD [address] [place] [address] Reason Comments Follow-up pt would like to dis cuss cardiac testing ordered before proceeding Medication Management please discuss Hyz aar Reason Comments Follow-up 6 mo f/u. No complai nts or concerns for todays visit. Medications reviewed; no refills at this time Status Reason Specialty Diagnoses / Procedures Referred By Contact Referred To Contact Pending Review Cardiology Diagnoses Bilateral carotid artery stenosis Procedures Carotid Duplex Vic Christie MD [address] [facility] [address] [place] [address] Status Reason Specialty Diagnoses / Procedures Referre d By Contact Referred To Contact Closed Cardiology Diagnoses Bilateral carotid artery stenosis Procedures Carotid Duplex Vic Christie MD [address] [facility] [address] [place] [address] Reason Comments Medication Refill Warfarin Reason Comments Medication Refill Sotalol and Losartan /HCTZ Reason Comments Medication Refill SotaloL Reason Comments Urinary Frequency burning with urinati on, hematuria and low back pain x 4 days, took azo Reason Onset Date Comments Population Health Navigation Outreach 05/11/2022 [employer] G[employer] Reason Comments UTI Burning and urgency of urination x4 days Shoulder Injury R shoulder injury Reason Comments Orders Reason Comments Results Reason Comments Anticoagulation Reason Comments 6 Month Exam Reason Comments Patient Update Reason Comments Rectal Bleeding Reason Onset Date Comments Refill Request 10/18/2022 Reason Comments Results Reason Comments Urinary Frequency and pain with urinat ion x this am Reason Comments Follow Up UC follow up for UTI Reason Comments Anticoagulation - Initial Consult Reason Comments Results Labs Reason Comments Cough Cough, sinus, fever, St, bodyaches x 3 days Reason Comments Follow Up ER follow up. Reason Comments Mammogram Result Call Back Reason Comments Results US Thyroid and Head CT Orders Specialty Diagnoses / Procedures Referred By Contac t Referred To Contact [facility] IMAG[facility] Diagnoses History of thyroid nodule Procedures US THYROID/PARATHYROID US SOFT TISSUE HEAD & NECK REAL TIME IMGE DOCFlako Srinivasan MD [address] [place] [address] [place] [address] Referral ID Status Reason Start Date Expiration Date V isits Requested Visits Authorized [id number] Closed Auto-Generate d Referral 08/12/2022 09/11/2023 1 1 Specialty Diagnoses / Procedures Referred By Contac t Referred To Contact [facility] IM[facility] Diagnoses Dysphagia, unspecified type History of thyroid nodule Procedures US THYROID/PARATHYROID US SOFT TISSUE HEAD & NECK REAL TIME IMGE Georgie Paz APRN.MORTICIAN INVESTIGATOR [address] [place] [place] [id number] [place] [address] Referral ID Status Reason Start Date Expiration Date V isits Requested Visits Authorized [id number] Closed Auto-Generate d Referral 01/05/2023 02/04/2024 1 1 Reason Comments Consult Abnormal thyroid ult rasound. Specialty Diagnoses / Procedures Referred By Contac t Referred To Contact General Surgery Diagnoses Thyroid nodule Procedures CONSULT TO GENERAL SURGERY OFFICE/OUTPATIENT [facility] 60-74 MINUTES Georgie Stallworth APRN.MORTICIAN INVESTIGATOR [address] [place] [address] Referral ID Status Reason Start Date Expiration Date V isits Requested Visits Authorized [id number] Closed PCP Requested Referral 01/06/2023 01/06/2024 1 1 Reason Comments Palpitations Reason Onset Date Comments Transition Of Care 01/17/2023 Reason Comments Hospital F/U 7 Day [facility] for Ort hostatic Hypotension and adverse drug reaction Reason Comments Wound Check Reason Comments medication question/prednisone Reason Onset Date Comments Transition Of Care 01/26/2023 TCM Initial A [facility] Discharge 01/25/23 Reason Comments Wound Check Wound check, s/p dev ice insertion Reason Onset Date Comments Anticoagulation Telephone Fu 01/28/2023 Reason Comments dysuria Reason Comments Orders Reason Comments Urinary Problem Possible uti, cloudy urine, lower left abdominal pain/bladder spasms, urgency x 2 days Reason Comments Medication Question Reason Comments UTI Constipation painful jaw Reason Comments Urinary Problem incontinence, dysuri a, LLQ pain, nausea for 2 weeks Constipation Mouth/Lip Problem Lower left mouth mervin n Reason Comments Lab Orders Reason Comments Follow Up Reason Comments Cough Productive cough briseida t started on Sat night, into Sun UTI 1 week Reason Comments Radiology XR Reason Onset Date Comments [facility] Navigation Outreach 01/04/2024 [employer] Reason Onset Date Comments [facility] Navigation Outreach 02/09/2024 [employer] Reason Comments Medicare Wellness Exam Reason Comments Results Lumbar Xray/Labs Reason Onset Date Comments [facility] Navigation Outreach 04/04/2024 [place] high risk attempt 1 Reason Onset Date Comments Refill Request 05/04/2024 Reason Onset Date Comments Refill Request 05/14/2024 Reason Comments Gastrointestinal Bleed Reason Onset Date Comments Transition Of Care 05/18/2024 Reason Comments Patient Question Reason Comments Hospital F/U [facility] duodenal ulcer. Flu Reason Comments [facility] agree to follow Reason Comments skilled nusring plan of care Reason Comments Hospital F/U [facility] Reason Comments [facility] PT Plan of Care Reason Comments Trochanteric bursitis right hip Referred by Otoniel King Specialty Diagnoses / Procedures Referred By Contac t Referred To Contact Orthopedics Diagnoses Trochanteric bursitis of right hip Procedures CONSULT TO ORTHOPAEDICS OFFICE/OUTPATIENT 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 Reason Comments [facility] discharge Reason Onset Date Comments Refill Request 08/29/2024 Medication Question 08/29/2024 Reason Comments EUS eval Reason Comments Consult Reason Comments Preparations For Surgery Reason Comments Urinary Symptoms Reason Comments UTI Burning, pain, urine odor x5 days Reason Onset Date Comments Population Health Navigation Outreach 11/21/2024 [employer] [facility] Care Teams (unrecognized sec tion and content) Button Maker Relationship Specialty Start Date End Date Christine, OtonielJASEN carney [address] [place] [address] PCP - General Nurse Practitioner 07/25/19 Button Maker Relationship Specialty [place] [address] [place] [address] PCP - General Family Medicine 05/10/19 Button Maker Relationship Specialty Start Date End Date Flako Tracy MD [address] [place] [address] PCP - General Family Medicine 05/10/19 Button Maker Relationship Specialty Start Date End Date Flako Tracy MD [address] [place] [address] PCP - General Family Medicine 05/10/19 Button Maker Relationship Specialty Start Date End Date Flako Tracy MD [address] [place] [address] PCP - General Family Medicine 05/10/19 Button Maker Relationship Specialty Start Date End Date Flako Tracy MD [address] [place] [address] PCP - General Family Medicine 05/10/19 Button Maker Relationship Specialty Start Date End Date Flako Tracy MD [address] [place] [address] PCP - General Family Medicine 05/10/19 Team Status: Active Member Role Status Dates Dr. Divya Dockery MD Family Provider Active Dr. Flako Tracy MD Primary Care Provider Active Team Status: Inactive Member Role Status Dates Dr. Flako Tracy MD Primary Care Provider Active Dr. Adonis Reyez DO Attending Provider, Emergency Jamal kelley Active Team Status: Inactive Member Role Status Dates Dr. Flako Tracy MD Primary Care Provider Active Dr. Gallito Roberson MD Emergency Provider Active Button Maker Relationship Specialty Start Date End Date Flako Tracy MD [address] [facility] [address] PCP - General Family Medicine 05/10/19 Button Maker Relationship Specialty Start Date End Date Flako Tracy MD [address] [place] [address] PCP - General Family Medicine 05/10/19 Button Maker Relationship Specialty Start Date End Date Flako Tracy MD [address] [place] [address] PCP - General Family Medicine 05/10/19 Button Maker Relationship Specialty Start Date End Date Flako Tracy MD [address] [place] [address] PCP - General Family Medicine 05/10/19 Button Maker Relationship Specialty Start Date End Date Flako Tracy MD [address] [facility] [address] PCP - General Family Medicine 05/10/19 Button Maker Relationship Specialty Start Date End Date Flako Tracy MD [address] [address] PCP - General Family Medicine 05/10/19 Button Maker Relationship Specialty Start Date End Date Flako Tracy MD [address] [place] [address] PCP - General Family Medicine 05/10/19 Button Maker Relationship Specialty Start Date End Date Flako Tracy MD [address] [place] [address] PCP - General Family Medicine 05/10/19 Button Maker Relationship Specialty Start Date End Date Flako Tracy MD [address] [place] [address] PCP - General Family Medicine 05/10/19 Button Maker Relationship Specialty Start Date End Date Flako Tracy MD [address] [place] [address] PCP - General Family Medicine 05/10/19 13, Pharmacist [id number] [place] [address] Pharmacist Pharmacy 11/24/22 Button Maker Relationship Specialty Start Date End Date Flako Tracy MD [address] [place] [address] PCP - General Family Medicine 05/10/19 13, Pharmacist [id number] [place] [address] Pharmacist Pharmacy 11/24/22 Button Maker Relationship Specialty Start Date End Date Flako Tracy MD [address] [place] [address] PCP - General Family Medicine 05/10/19 13, Pharmacist [id number] [place] [address] Pharmacist Pharmacy 11/24/22 Button Maker Relationship Specialty Start Date End Date Flako Tracy MD [address] [place] [address] PCP - General Family Medicine 05/10/19 13, Pharmacist [id number] [facility] [place] [address] Pharmacist Pharmacy 11/24/22 Team Status: Inactive Member Role Status Dates Dr. Flako Tracy MD Primary Care Provider, Referr ing Provider Active Dr. Neal Sun MD Attending Provider Active Team Status: Inactive Member Role Status Dates Dr. Flako Tracy MD Primary Care Provider Active Dr. Gallito Roberson MD Attending Provider, Emergency Pro vider Active Team Status: Inactive Member Role Status Dates Dr. Flako Tracy MD Primary Care Provider Active Dr. Arben Wagner DO Emergency Provider Active Button Maker Relationship Specialty Start Date End Date Flako Tracy MD [address] [place] [address] PCP - General Family Medicine 05/10/19 13, Pharmacist [id number] [place] [address] Pharmacist Pharmacy 11/24/22 Button Maker Relationship Specialty Start Date End Date Flako Tracy MD [address] [place] [address] PCP - General Family Medicine 05/10/19 13, Pharmacist [id number] [place] [address] Pharmacist Pharmacy 11/24/22 Button Maker Relationship Specialty Start Date End Date Flako Tracy MD [address] [place] [address] PCP - General Family Medicine 05/10/19 13, Pharmacist [id number] [place] [address] Pharmacist Pharmacy 11/24/22 Button Maker Relationship Specialty Start Date End Date Flako Tracy MD [address] [place] [address] PCP - General Family Medicine 05/10/19 Button Maker Relationship Specialty Start Date End Date Flako Tracy MD [address] [place] [address] PCP - General Family Medicine 05/10/19 Button Maker Relationship Specialty Start Date End Date Flako Tracy MD [address] [place] [address] PCP - General Family Medicine 05/10/19 13, Pharmacist [id number] [place] [address] Pharmacist Pharmacy 11/24/22 Button Maker Relationship Specialty Start Date End Date Flako Tracy MD [address] [place] [address] PCP - General Family Medicine 05/10/19 Button Maker Relationship Specialty Start Date End Date Flako Tracy MD [address] [place] [address] PCP - General Family Medicine 05/10/19 Button Maker Relationship Specialty Start Date End Date Flako Tracy MD [address] [place] [address] PCP - General Family Medicine 05/10/19 13, Pharmacist [id number] [place] [address] Pharmacist Pharmacy 11/24/22 Button Maker Relationship Specialty Start Date End Date Flako Tracy MD [address] [place] [address] PCP - General Family Medicine 05/10/19 Team Status: Inactive Member Role Status Dates Dr. Flako Tracy MD Primary Care Provider Active Dr. Arben Wagner DO Attending Provider, Emergency Pro vider Active Team Status: Active Member Role Status Dates Dr. Flako Tracy MD Primary Care Provider Active Dr. Kelsi Brower , Emergency Provider Active Dr. South Jesus DO Admit Provider, Attending Pr ovider Active Team Status: Active Member Role Status Dates Dr. Flako Tracy MD Primary Care Provider Active Dr. Mark Ryan MD Attending Provider Activ e Team Status: Active Member Role Status Dates Dr. Flako Tracy MD Primary Care Provider Active Dr. Kelsi Brower DO Emergency Provider Active Dr. South Jesus DO Admit Provider, Other Provid er Active Dr. Low Patino MD Other Provider Active Dr. Maykel Sloan MD Attending Provider, Other Provi walter Active Team Status: Inactive Member Role Status Dates Dr. Flako Tracy MD Primary Care Provider Active Dr. Kelsi Brower DO Emergency Provider Active Dr. South Jesus DO Admit Provider, Other Provid er Active Dr. Low Patino MD Other Provider Active Dr. Maykel Sloan MD Attending Provider Active Button Maker Relationship Specialty Start Date End Date Flako Tracy MD [address] [place] [address] PCP - General Family Medicine 05/10/19 13, Pharmacist [id number] [place] [address] Pharmacist Pharmacy 11/24/22 Team Status: Inactive Member Role Status Dates Dr. Flako Tracy MD Primary Care Provider, Referr ing Provider Active Kay SANDOVAL PA Attending Provider Active Team Status: Inactive Member Role Status Dates Dr. Flako Tracy MD Primary Care Provider Active Kay SANDOVAL, PA Attending Provider, Referr ing Provider Active Button Maker Relationship Specialty Start Date End Date Flako Tracy MD [address] [place] [address] PCP - General Family Medicine 05/10/19 13, Pharmacist [id number] [place] [address] Pharmacist Pharmacy 11/24/22 Button Maker Relationship Specialty Start Date End Date Flako Tracy MD [address] [place] [address] PCP - General Family Medicine 05/10/19 13, Pharmacist [id number] [place] [address] Pharmacist Pharmacy 11/24/22 Low Patino MD [address] [address] Specialty Business Process Lead Cardiology 01/22/23 Button Maker Relationship Specialty Start Date End Date Flako Tracy MD [address] [place] [address] PCP - General Family Medicine 05/10/19 13, Pharmacist [address] [place] [address] Pharmacist Pharmacy 11/24/22 Low Patino MD [address] [address] Specialty Business Process Lead Cardiology 01/22/23 Button Maker Relationship Specialty Start Date End Date Flako Tracy MD [address] [place] [address] PCP - General Family Medicine 05/10/19 13, Pharmacist [id number] [place] [address] Pharmacist Pharmacy 11/24/22 Low Patino MD [address] [address] Specialty Business Process Lead Cardiology 01/22/23 Button Maker Relationship Specialty Start Date End Date Flako Tracy MD [address] [place] [address] PCP - General Family Medicine 05/10/19 13, Pharmacist [address] [place] [address] Pharmacist Pharmacy 11/24/22 Low Patino MD [address] [address] Specialty Business Process Lead Cardiology 01/22/23 Yuri Chavarria, ALONDRA [address] [facility] [place] [address] Primary Care Armature Tester Internal Medicine 01/26/23 02/25/23 Team Status: Inactive Member Role Status Dates Dr. Flako Tracy MD Primary Care Provider Active Dr. Bonnie Ramirez MD Emergency Provider Active Button Maker Relationship Specialty Start Date End Date Flako Tracy MD [address] [place] [address] PCP - General Family Medicine 05/10/19 13, Pharmacist [id number] [place] [address] Pharmacist Pharmacy 11/24/22 Low Patino MD [address] [address] Specialty Business Process Lead Cardiology 01/22/23 Yuri Chavarria, ALONDRA [address] [place] [address] Primary Care Armature Tester Internal Medicine 01/26/23 02/25/23 Button Maker Relationship Specialty Start Date End Date Flako Tracy MD [address] [place] [address] PCP - General Family Medicine 05/10/19 13, Pharmacist [address] [place] [address] Pharmacist Pharmacy 11/24/22 Low Patino MD [address] [id number] Specialty Business Process Lead Cardiology 01/22/23 Yuri Chavarria, ALONDRA [address] [place] [address] Primary Care Armature Tester Internal Medicine 01/26/23 02/25/23 Team Status: Inactive Member Role Status Dates Dr. Flako Tracy MD Primary Care Provider, Referr ing Provider Active Simi SANDOVAL PA-C Attending Provider Active Team Status: Active Member Role Status Dates Dr. Flako Tracy MD Primary Care Provider Active Darleen Aranda Attending Provider Active Team Status: Active Member Role Status Dates Dr. Flako Tracy MD Primary Care Provider, Attend ing Provider Active Team Status: Inactive Member Role Status Dates Dr. Flako Tracy MD Primary Care Provider Active Dr. Bonnie Ramirez MD Attending Provider, Emergency Provider Active Team Status: Inactive Member Role Status Dates Dr. Flako Tracy MD Primary Care Provider, Referr ing Provider Active Gina Barrera Attending Provider Active Team Status: Active Member Role Status Dates Dr. Flako Tracy MD Primary Care Provider Active Dr. Low Patino MD Attending Provider Active Team Status: Inactive Member Role Status Dates Dr. Flako Tracy MD Primary Care Provider Active Dr. Low Patino MD Attending Provider Active Button Maker Relationship Specialty Start Date End Date Flako Tracy MD [address] [place], [place] [address] PCP - General Family Medicine 05/10/19 13, Pharmacist [id number] [place], [place] [id number] Pharmacist Pharmacy 11/24/22 04/06/23 Low Patino MD [address] [phone] Specialty Business Process Lead Cardiology 01/22/23 Yuri Chavarria, ALONDRA [address] [place] [address] Primary Care Armature Tester Internal Medicine 01/26/23 02/25/23 Team Status: Inactive Member Role Status Dates Dr. Flako Tracy MD Primary Care Provider Active Dr. Chris Land MD Attending Provider, Referring P warren Active Team Status: Inactive Member Role Status Dates Dr. Flako Tracy MD Primary Care Provider Active Dr. Low Patino MD Attending Provider, Referring Pro vider Active Team Status: Active Member Role Status Dates Dr. Flako Tracy MD Primary Care Provider Active Dr. Adonis Newman MD Attending Provider Active Team Status: Active Member Role Status Dates Dr. Flako Tracy MD Primary Care Provider Active Kay Cavazos PA, PA Attending Provider, Referr ing Provider Active Button Maker Relationship Specialty Start Date End Date Flako Tracy MD [address] [place] [address] PCP - General Family Medicine 05/10/19 13, Pharmacist [address] [place] [address] Pharmacist Pharmacy 11/24/22 04/06/23 Low Patino MD [address] [address] Specialty Business Process Lead Cardiology 01/22/23 Yuri Chavarria, RN [address] [place] [address] Primary Care Armature Tester Internal Medicine 01/26/23 02/25/23 Team Status: Active Member Role Status Dates Dr. Flako Tracy MD Primary Care Provider Active Dr. Adonis Newman MD Attending Provider Active Kay Cavazos PA, PA Referring Provider Active Button Maker Relationship Specialty Start Date End Date Flako Tracy MD [address] [place] [address] PCP - General Family Medicine 05/10/19 Low Patino MD [address] [address] Specialty Business Process Lead Cardiology 01/22/23 Button Maker Relationship Specialty Start Date End Date Flako Tracy MD [address] [place] [address] PCP - General Family Medicine 05/10/19 Low Patino MD [address] [address] Specialty Business Process Lead Cardiology 01/22/23 Button Maker Relationship Specialty Start Date End Date Flako Tracy MD [address] [place] [address] PCP - General Family Medicine 05/10/19 Low Patino MD [address] [address] Specialty Business Process Lead Cardiology 01/22/23 Button Maker Relationship Specialty Start Date End Date Flako Tracy MD [address] [place] [address] PCP - General Family Medicine 05/10/19 Low Patino MD [address] [address] Specialty Business Process Lead Cardiology 01/22/23 Button Maker Relationship Specialty Start Date End Date Flako Tracy MD [address] [place] [address] PCP - General Family Medicine 05/10/19 Low Patino MD [address] [address] Specialty Business Process Lead Cardiology 01/22/23 Button Maker Relationship Specialty Start Date End Date Flako Tracy MD [address] [place] [address] PCP - General Family Medicine 05/10/19 Low Patino MD [address] [address] Specialty Business Process Lead Cardiology 01/22/23 Button Maker Relationship Specialty Start Date End Date Flako Tracy MD [address] [place] [address] PCP - General Family Medicine 05/10/19 Low Patino MD [address] [address] Specialty Business Process Lead Cardiology 01/22/23 Button Maker Relationship Specialty Start Date End Date Flako Tracy MD [address] [place] [address] PCP - General Family Medicine 05/10/19 Low Patino MD [address] [address] Specialty Business Process Lead Cardiology 01/22/23 Button Maker Relationship Specialty Start Date End Date Flako Tracy MD [address] [place] [address] PCP - General Family Medicine 05/10/19 Button Maker Relationship Specialty Start Date End Date Flako Tracy MD [address] [place] [address] PCP - General Family Medicine 05/10/19 Button Maker Relationship Specialty Start Date End Date Flako Tracy MD [address] [place] [address] PCP - General Family Medicine 05/10/19 Button Maker Relationship Specialty Start Date End Date Flako Tracy MD [address] [place] [address] PCP - General Family Medicine 05/10/19 Button Maker Relationship Specialty Start Date End Date Flako Tracy MD [address] [place] [address] PCP - General Family Medicine 05/10/19 Low Patino MD [address] [place] [address] [place] [address] Specialty Business Process Lead Cardiology 01/22/23 Button Maker Relationship Specialty Start Date End Date Flako Tracy MD [address] [place] [address] PCP - General Family Medicine 05/10/19 Low Patino MD [address] [place] [address] [place] [address] Specialty Business Process Lead Cardiology 01/22/23 Button Maker Relationship Specialty Start Date End Date Flako Tracy MD [address] [place] [address] PCP - General Family Medicine 05/10/19 Low Patino MD [address] [place] [address] [place] [address] Specialty Business Process Lead Cardiology 01/22/23 Georgie Stallworth APRN.MORTICIAN INVESTIGATOR [address] [facility] [place] [address] Director Of Photography Family Medicine 02/12/24 Button Maker Relationship Specialty Start Date End Date Flako Tracy MD [address] [place] [address] PCP - General Family Medicine 05/10/19 Low Patino MD [address] [address] Specialty Business Process Lead Cardiology 01/22/23 Georgie Stallworth APRN.MORTICIAN INVESTIGATOR [address] [place] [address] Director Of Photography Family Medicine 02/12/24 Button Maker Relationship Specialty Start Date End Date Flako Tracy MD [address] [facility] [place] [address] PCP - General Family Medicine 05/10/19 Low Patino MD [address] [address] Specialty Business Process Lead Cardiology 01/22/23 Georgie Stallworth APRN.MORTICIAN INVESTIGATOR [address] [facility] [place] [address] Director Of Photography Family Medicine 02/12/24 Button Maker Relationship Specialty Start Date End Date Flako Tracy MD [address] [place] [address] PCP - General Family Medicine 05/10/19 Low Patino MD [address] [place] [address] Specialty Business Process Lead Cardiology 01/22/23 Georgie Stallworth SILK SCREEN CUTTER.MORTICIAN INVESTIGATOR [address] [place] [address] Director Of Photography Family Medicine 02/12/24 Otoniel King APRN.MORTICIAN INVESTIGATOR [address] [place] [address] Director Of Photography Family Medicine 02/21/24 Button Maker Relationship Specialty Start Date End Date Flako Tracy MD [address] [place] [address] PCP - General Family Medicine 05/10/19 Low Patino MD [address] [address] Specialty Business Process Lead Cardiology 01/22/23 Georgie Stallworth SILK SCREEN CUTTER.MORTICIAN INVESTIGATOR [address] [place] [address] Director Of Photography Family Medicine 02/12/24 Otoniel King SILK SCREEN CUTTER.MORTICIAN INVESTIGATOR [address] [place] [address] [facility] Family Medicine 02/21/24 Button Maker Relationship Specialty Start Date End Date Flako Tracy MD [address] [place] [address] PCP - General Family Medicine 05/10/19 Low Patino MD [address] [place] [address] Specialty Business Process Lead Cardiology 01/22/23 Georgie Stallworth APRN.MORTICIAN INVESTIGATOR [address] [place] [address] Director Of Photography Family Medicine 02/12/24 Otoniel King SILK SCREEN CUTTER.MORTICIAN INVESTIGATOR [address] [place] [address] Director Of Photography Family Medicine 02/21/24 Button Maker Relationship Specialty Start Date End Date Flako Tracy MD [address] [place] [address] PCP - General Family Medicine 05/10/19 Low Patino MD [address] [place] [address] Specialty Business Process Lead Cardiology 01/22/23 Georgie Stallworth, SILK SCREEN CUTTER.MORTICIAN INVESTIGATOR [address] [place] [address] Director Of Photography Family Medicine 02/12/24 Otoniel King SILK SCREEN CUTTER.MORTICIAN INVESTIGATOR [address] [place] [address] Director Of Photography Family Medicine 02/21/24 Button Maker Relationship Specialty Start Date End Date Flako Tracy MD [address] [place] [address] PCP - General Family Medicine 05/10/19 Low Patino MD [address] [phone] Specialty Business Process Lead Cardiology 01/22/23 Georgie Stallworth APRN.MORTICIAN INVESTIGATOR [address] [place], [place] [address] Director Of Photography Family Medicine 02/12/24 Otoniel King APRN.MORTICIAN INVESTIGATOR [address] [facility] [place], [place] [address] Director Of Photography Family Medicine 02/21/24 Team Status: Active Member Role Status Dates Dr. Flako Tracy MD Primary Care Provider Active Team Status: Inactive Member Role Status Dates Dr. Flako Tracy MD Primary Care Provider Active Start: January 30, 2024 End: February 04, 2024 Kay SANDOVAL PA Attending Provider Active Start: January 30, 2024 End: February 04, 2024 Kay SANDOVAL PA Referring Provider Active Start: January 30, 2024 End: February 04, 2024 Team Status: Inactive Member Role Status Dates Dr. Flako Tracy MD Primary Care Provider Active Start: March 12, 2024 End: March 12, 2024 Dr. Low Patino MD Attending Provider Active S tart: March 12, 2024 End: March 12, 2024 Dr. Low Patino MD Referring Provider Active S tart: March 12, 2024 End: March 12, 2024 Team Status: Inactive Member Role Status Dates Dr. Flako Tracy MD Primary Care Provider Active Start: March 29, 2024 End: March 29, 2024 Kay SANDOVAL PA Attending Provider Active Start: March 29, 2024 End: March 29, 2024 Kay SANDOVAL PA Referring Provider Active Start: March 29, 2024 End: March 29, 2024 Team Status: Inactive Member Role Status Dates Dr. Flako Tracy MD Primary Care Provider Active Start: April 18, 2024 End: April 18, 2024 Dr. Low Patino MD Attending Provider Active S tart: April 18, 2024 End: April 18, 2024 Team Status: Inactive Member Role Status Dates Dr. Flako Tracy MD Primary Care Provider Active Start: April 18, 2024 End: April 18, 2024 Dr. Low Patino MD Attending Provider Active S tart: April 18, 2024 End: April 18, 2024 Dr. Low Patino MD Referring Provider Active S tart: April 18, 2024 End: April 18, 2024 Team Status: Inactive Member Role Status Dates Dr. Flako Tracy MD Primary Care Provider Active Start: May 02, 2024 End: May 04, 2024 Kay Cavazos PA PA Attending Provider Active Start: May 02, 2024 End: May 04, 2024 Kay Cavazos PA PA Referring Provider Active Start: May 02, 2024 End: May 04, 2024 Dr. London Anna MD Other Provider Active St art: May 02, 2024 End: May 04, 2024 Team Status: Active Member Role Status Dates Dr. Flako Tracy MD Primary Care Provider Active Start: May 11, 2024 Dr. London Anna MD Attending Provider Active Start: May 11, 2024 Dr. London Anna MD Referring Provider Active Start: May 11, 2024 Team Status: Inactive Member Role Status Dates Dr. Flako Tracy MD Primary Care Provider Active Start: May 13, 2024 End: May 14, 2024 Dr. Alexis Copeland DO Emergency Provider Active Start: May 13, 2024 End: May 14, 2024 Team Status: Active Member Role Status Dates Dr. Flako Tracy MD Primary Care Provider Active Start: May 11, 2024 Dr. Adonis Newman MD Attending Provider Active S tart: May 11, 2024 Team Status: Active Member Role Status Dates Dr. Flako Tracy MD Primary Care Provider Active Start: May 15, 2024 Dr. Gallito Roberson MD Emergency Provider Active S tart: May 15, 2024 Dr. South Jesus DO Admit Provider Active Start: May 15, 2024 Dr. South Jesus DO Attending Provider Active Start: May 15, 2024 Team Status: Active Member Role Status Dates Dr. Flako Tracy MD Primary Care Provider Active Start: May 11, 2024 Dr. Adonis Newman MD Attending Provider Active S tart: May 11, 2024 Dr. London Anna MD Referring Provider Active Start: May 11, 2024 Team Status: Inactive Member Role Status Dates Dr. Flako Tracy MD Primary Care Provider Active Start: May 13, 2024 End: May 14, 2024 Dr. Alexis Copeland DO Attending Provider Active Start: May 13, 2024 End: May 14, 2024 Dr. Alexis Copeland DO Emergency Provider Active Start: May 13, 2024 End: May 14, 2024 Team Status: Inactive Member Role Status Dates Dr. Flako Tracy MD Primary Care Provider Active Start: May 15, 2024 End: May 17, 2024 Dr. Gallito Roberson MD Emergency Provider Active S tart: May 15, 2024 End: May 17, 2024 Dr. South Jesus DO Admit Provider Active Start: May 15, 2024 End: May 17, 2024 Dr. South Jesus DO Other Provider Active Start: May 15, 2024 End: May 17, 2024 Dr. Adonis Love DO Attending Provider Active Start: May 15, 2024 End: May 17, 2024 Dr. Adonis Love DO Other Provider Active Star t: May 15, 2024 Team Status: Active Member Role Status Dates Dr. Flako Tracy MD Primary Care Provider Active Start: May 16, 2024 Dr. Gallito oRberson MD Emergency Provider Active S tart: May 16, 2024 Dr. South Jesus DO Admit Provider Active Start: May 16, 2024 Dr. South Jesus DO Other Provider Active Start: May 16, 2024 Dr. Adonis Love DO Attending Provider Active Start: May 16, 2024 Dr. Adonis Love DO Other Provider Active Star t: May 16, 2024 Team Status: Active Member Role Status Dates Dr. Flako Tracy MD Primary Care Provider Active Start: May 16, 2024 Dr. Gallito Roberson MD Emergency Provider Active S tart: May 16, 2024 Dr. South Jesus DO Admit Provider Active Start: May 16, 2024 Dr. South Jesus DO Other Provider Active Start: May 16, 2024 Dr. Adonis Love DO Other Provider Active Star t: May 16, 2024 Dr. Omer Jane DO Attending Provider Active Start: May 16, 2024 Team Status: Active Member Role Status Dates Dr. Flako Tracy MD Primary Care Provider Active Start: May 17, 2024 Dr. Gallito Roberson MD Emergency Provider Active S tart: May 17, 2024 Dr. South Jesus DO Admit Provider Active Start: May 17, 2024 Dr. South Jesus DO Other Provider Active Start: May 17, 2024 Dr. Adonis Love DO Attending Provider Active Start: May 17, 2024 Dr. Adonis Love DO Other Provider Active Star t: May 17, 2024 Team Status: Inactive Member Role Status Dates Dr. Flako Tracy MD Primary Care Provider Active Start: May 11, 2024 End: May 11, 2024 Dr. London Anna MD Attending Provider Active Start: May 11, 2024 End: May 11, 2024 Dr. London Anna MD Referring Provider Active Start: May 11, 2024 End: May 11, 2024 Team Status: Active Member Role Status Dates Dr. Flako Tracy MD Primary Care Provider Active Start: May 16, 2024 Dr. Gallito Roberson MD Emergency Provider Active S tart: May 16, 2024 Dr. South Jesus DO Admit Provider Active Start: May 16, 2024 Dr. South Jesus DO Other Provider Active Start: May 16, 2024 Dr. Adonis Love DO Referring Provider Active Start: May 16, 2024 Dr. Adonis Love DO Other Provider Active Star t: May 16, 2024 Dr. Omer Jane DO Attending Provider Active Start: May 16, 2024 Team Status: Active Member Role Status Dates Dr. Flako Tracy MD Primary Care Provider Active Start: May 18, 2024 Kay Cavazos PA, PA Attending Provider Active Start: May 18, 2024 Kay Cavazos PA, PA Referring Provider Active Start: May 18, 2024 Dr. London Anna MD Other Provider Active St art: May 18, 2024 Team Status: Active Member Role Status Dates Dr. Flako Tracy MD Primary Care Provider Active Start: May 24, 2024 Kay SANDOVAL, PA Attending Provider Active Start: May 24, 2024 Kay SANDOVAL, PA Referring Provider Active Start: May 24, 2024 Dr. London Anna MD Other Provider Active St art: May 24, 2024 Team Status: Inactive Member Role Status Dates Dr. Flako Tracy MD Primary Care Provider Active Start: May 30, 2024 End: May 30, 2024 Dr. Timothy James , Emergency Provider Active Start: May 30, 2024 End: May 30, 2024 Team Status: Active Member Role Status Dates Dr. Flako Tracy MD Primary Care Provider Active Start: June 02, 2024 Dr. Ian Brambila , Emergency Provider Active Start: June 02, 2024 Dr. Cheryl Carroll , Admit Provider Active Start : June 02, 2024 Dr. Cheryl Carroll DO Attending Provider Active S tart: June 02, 2024 Button Maker Relationship Specialty Start Date End Date Flako Tracy MD [address] [place] [address] PCP - General Family Medicine 05/10/19 Low Patino MD [address] [address] Specialty Business Process Lead Cardiology 01/22/23 Georgie Stallworth, SILK SCREEN CUTTER.MORTICIAN INVESTIGATOR [address] [place] [address] Director Of Photography Family Medicine 02/12/24 Otoniel King APRN.MORTICIAN INVESTIGATOR [address] [place], [place] [id number] Director Of Photography Family Medicine 02/21/24 Team Status: Inactive Member Role Status Dates Dr. Flako Tracy MD Primary Care Provider Active Start: May 24, 2024 End: May 24, 2024 Kay SANDOVAL, PA Attending Provider Active Start: May 24, 2024 End: May 24, 2024 LORI Harding Referring Provider Active Start: May 24, 2024 End: May 24, 2024 Dr. London Anna MD Other Provider Active St art: May 24, 2024 End: May 24, 2024 Team Status: Inactive Member Role Status Dates Dr. Flako Tracy MD Primary Care Provider Active Start: May 30, 2024 End: May 30, 2024 Dr. Timothy James DO Attending Provider Active Start: May 30, 2024 End: May 30, 2024 Dr. Timothy James , Emergency Provider Active Start: May 30, 2024 End: May 30, 2024 Team Status: Active Member Role Status Dates Dr. Flako Tracy MD Primary Care Provider Active Start: June 02, 2024 Dr. Ian Brambila DO Emergency Provider Active Start: June 02, 2024 Dr. Cheryl Carroll , Admit Provider Active Start : June 02, 2024 Dr. Cheryl Carroll DO Other Provider Active Start : June 02, 2024 Dr. South Lopez MD Attending Provider Active Start: June 02, 2024 Team Status: Active Member Role Status Dates Dr. Flako Tracy MD Primary Care Provider Active Start: June 02, 2024 Dr. Ian Brambila DO Emergency Provider Active Start: June 02, 2024 Dr. Cheryl Carroll DO Admit Provider Active Start : June 02, 2024 Dr. Cheryl Carroll DO Attending Provider Active S tart: June 02, 2024 Dr. Cheryl Carroll DO Other Provider Active Start : June 02, 2024 Team Status: Active Member Role Status Dates Dr. Flako Tracy MD Primary Care Provider Active Start: June 03, 2024 Dr. Ian Brambila DO Emergency Provider Active Start: June 03, 2024 Dr. Cheryl Carroll DO Admit Provider Active Start : June 03, 2024 Dr. Cheryl Carroll DO Attending Provider Active S tart: June 03, 2024 Dr. Cheryl Carroll DO Other Provider Active Start : June 03, 2024 Team Status: Active Member Role Status Dates Dr. Flako Tracy MD Primary Care Provider Active Start: June 04, 2024 Dr. Ian Brambila DO Emergency Provider Active Start: June 04, 2024 Dr. Cheryl Carroll DO Admit Provider Active Start : June 04, 2024 Dr. Cheryl Carroll DO Other Provider Active Start : June 04, 2024 Dr. South Lopez MD Attending Provider Active Start: June 04, 2024 Dr. South Lopez MD Other Provider Active Star t: June 04, 2024 Team Status: Inactive Member Role Status Dates Dr. Flako Tracy MD Primary Care Provider Active Start: June 02, 2024 End: June 05, 2024 Dr. Ian Brambila DO Emergency Provider Active Start: June 02, 2024 End: June 05, 2024 Dr. Cheryl Carroll DO Admit Provider Active Start : June 02, 2024 End: June 05, 2024 Dr. Cheryl Carroll DO Other Provider Active Start : June 02, 2024 End: June 05, 2024 Dr. South Lopez MD Attending Provider Active Start: June 02, 2024 End: June 05, 2024 Team Status: Active Member Role Status Dates Dr. Flako Tracy MD Primary Care Provider Active Start: June 05, 2024 Dr. Ian Brambila DO Emergency Provider Active Start: June 05, 2024 Dr. Cheryl Carroll DO Admit Provider Active Start : June 05, 2024 Dr. Cheryl Carroll DO Other Provider Active Start : June 05, 2024 Dr. South Lopez MD Attending Provider Active Start: June 05, 2024 Dr. South Lopez MD Other Provider Active Star t: June 05, 2024 Button Maker Relationship Specialty Start Date End Date Flako Tracy MD [address] [place], [place] [address] PCP - General Family Medicine 05/10/19 Low Patino MD [address] [id number] Specialty Business Process Lead Cardiology 01/22/23 Georgie Stallworth, JOY.MORTICIAN INVESTIGATOR [address] [place] [address] Director Of Photography Family Medicine 02/12/24 Otoniel King APRN.MORTICIAN INVESTIGATOR [address] [place] [address] Director Of Photography Family [facility] 02/21/24 Button Maker Relationship Specialty Start Date End Date Flako Tracy MD [address] [place] [address] PCP - General Family Medicine 05/10/19 Low Patino MD [address] [address] Specialty Business Process Lead Cardiology 01/22/23 Georgie Stallworth APRN.MORTICIAN INVESTIGATOR [address] [place] [address] Director Of Photography Family Medicine 02/12/24 Otoniel King APRN.MORTICIAN INVESTIGATOR [address] [place] [address] Director Of Photography Family [facility] 02/21/24 Button Maker Relationship Specialty Start Date End Date Flako Tracy MD [address] [place] [address] PCP - General Family Medicine 05/10/19 Low Patino MD [address] [address] Specialty Business Process Lead Cardiology 01/22/23 Georgie Stallworth APRN.MORTICIAN INVESTIGATOR [address] [place] [address] Director Of Photography Family Medicine 02/12/24 Otoniel King APRN.MORTICIAN INVESTIGATOR [address] [place] [address] [facility]/21/[facility] Button Maker Relationship Specialty Start Date End Date Flako Tracy MD [address] [place] [address] PCP - General Family Medicine 05/10/19 Low Patino MD [address] [place] [address] Specialty Business Process Lead Cardiology 01/22/23 Georgie Stallworth APRN.MORTICIAN INVESTIGATOR [address] [place] [address] Director Of Photography Family Medicine 02/12/24 Otoniel King APRN.MORTICIAN INVESTIGATOR [address] [facility] [address] [facility] 02/21/24 Button Maker Relationship Specialty Start Date End Date Flako Tracy MD [address] [place] [address] PCP - General Family Medicine 05/10/19 Low Patino MD [address] [place] [address] Specialty Business Process Lead Cardiology 01/22/23 Georgie Stallworth APRN.MORTICIAN INVESTIGATOR [address] [place] [address] Director Of Photography Family Medicine 02/12/24 Otoniel King APRN.MORTICIAN INVESTIGATOR [address] [place] [address] Director Of Photography Family Medicine 02/21/24 Button Maker Relationship Specialty Start Date End Date Flako Tracy MD [address] [place] [address] PCP - General Family Medicine 05/10/19 Low Patino MD [address] [place] [address] Specialty Business Process Lead Cardiology 01/22/23 Georgie Stallworth APRN.MORTICIAN INVESTIGATOR [address] [address] Director Of Photography Family Medicine 02/12/24 Otoniel King APRN.MORTICIAN INVESTIGATOR [address] [place] [address] Director Of Photography Family Medicine 02/21/24 Button Maker Relationship Specialty Start Date End Date Flako Tracy MD [address] [place] [address] PCP - General Family Medicine 05/10/19 Low Patino MD [address] [address] Specialty Business Process Lead Cardiology 01/22/23 Georgie Stallworth APRN.MORTICIAN INVESTIGATOR [address] [address] Director Of Photography Family Medicine 02/12/24 Otoniel King APRN.MORTICIAN INVESTIGATOR [address] [place] [address] Director Of Photography Family Medicine 02/21/24 Team Status: Inactive Member Role Status Dates Dr. Flako Tracy MD Primary Care Provider Active Start: June 11, 2024 End: June 11, 2024 Dr. Low Patino MD Attending Provider Active S tart: June 11, 2024 End: June 11, 2024 Team Status: Active Member Role Status Dates Dr. Flako Tracy MD Primary Care Provider Active Start: June 12, 2024 Dr. Flako Tracy MD Attending Provider Active Start: June 12, 2024 Team Status: Inactive Member Role Status Dates Dr. Flako Tracy MD Primary Care Provider Active Start: June 13, 2024 End: June 13, 2024 Dr. Flako Tracy MD Referring Provider Active Start: June 13, 2024 End: June 13, 2024 Dr. Maykel Sloan MD Attending Provider Active Start: June 13, 2024 End: June 13, 2024 Team Status: Inactive Member Role Status Dates Dr. Flako Tracy MD Primary Care Provider Active Start: June 22, 2024 End: June 22, 2024 LORI Ferraro Attending Provider Active Star t: June 22, 2024 End: June 22, 2024 Kay SANDOVAL, PA Referring Provider Active Start: June 22, 2024 End: June 22, 2024 Team Status: Active Member Role Status Dates Dr. Flako Tracy MD Primary Care Provider Active Start: June 25, 2024 Dr. Flako Tracy MD Attending Provider Active Start: June 25, 2024 Team Status: Inactive Member Role Status Dates Dr. Flako Tracy MD Primary Care Provider Active Start: June 25, 2024 End: June 25, 2024 Otoniel King PRODUCER ASSISTANT, PRODUCER ASSISTANT-C Attending Provider Active S tart: June 25, 2024 End: June 25, 2024 Team Status: Active Member Role Status Dates Dr. Flako Tracy MD Primary Care Provider Active Start: July 11, 2024 Dr. Maykel Sloan MD Attending Provider Active Start: July 11, 2024 Dr. Maykel Sloan MD Referring Provider Active Start: July 11, 2024 Team Status: Active Member Role Status Dates Dr. Flako Tracy MD Primary Care Provider Active Start: July 13, 2024 Dr. Maykel Sloan MD Attending Provider Active Start: July 13, 2024 Dr. Maykel Sloan MD Referring Provider Active Start: July 13, 2024 Team Status: Inactive Member Role Status Dates Dr. Flako Tracy MD Primary Care Provider Active Start: July 11, 2024 End: July 11, 2024 Dr. Maykel Sloan MD Attending Provider Active Start: July 11, 2024 End: July 11, 2024 Dr. Maykel Sloan MD Referring Provider Active Start: July 11, 2024 End: July 11, 2024 Team Status: Inactive Member Role Status Dates Dr. Flako Trayc MD Primary Care Provider Active Start: July 13, 2024 End: July 13, 2024 Dr. Maykel Sloan MD Attending Provider Active Start: July 13, 2024 End: July 13, 2024 Dr. Maykel Sloan MD Referring Provider Active Start: July 13, 2024 End: July 13, 2024 Button Maker Relationship Specialty Start Date End Date Otoniel King CNP [address] [place], [place] [id number] PCP - General Nurse Practitioner 07/25/19 Button Maker Relationship Specialty Start Date End Date Flako Tracy MD [address] [place], [place] [id number] PCP - General Family Medicine 05/10/19 Low Patino MD [address] [address] Specialty Business Process Lead Cardiology 01/22/23 Georgie Stallworth APRN.MORTICIAN INVESTIGATOR [address] [address] Director Of Photography Family Medicine 02/12/24 07/18/24 Otoniel King APRN.MORTICIAN INVESTIGATOR [address] [place], [place] [address] Director Of Photography Family Medicine 02/21/24 Button Maker Relationship Specialty Start Date End Date Flako Tracy MD [address] [place] [address] PCP - General Family Medicine 05/10/19 Low Patino MD [address] [address] Specialty Business Process Lead Cardiology 01/22/23 Otoniel King APRN.MORTICIAN INVESTIGATOR [address] [place] [address] Director Of Photography Family Medicine 02/21/24 Button Maker Relationship Specialty Start Date End Date Flako Tracy MD [address] [place] [address] PCP - General Family Medicine 05/10/19 Low Patino MD [address] [address] Specialty Business Process Lead Cardiology 01/22/23 Otoniel King APRN.MORTICIAN INVESTIGATOR [address] [place] [address] Director Of Photography Family Medicine 02/21/24 Team Status: Active Member Role/Relationship Status Dates Dr. Flako Tracy MD Primary Care Provider Active Team Status: Inactive Member Role/Relationship Status Dates Dr. Flako Tracy MD Primary Care Provider Active Start: May 11, 2024 End: May 11, 2024 Dr. London Anna MD Attending Provider Active Start: May 11, 2024 End: May 11, 2024 Dr. London Anna MD Referring Provider Active Start: May 11, 2024 End: May 11, 2024 Team Status: Active Member Role/Relationship Status Dates Dr. Flako Tracy MD Primary Care Provider Active Start: May 11, 2024 Dr. Adonis Newman MD Attending Provider Active S tart: May 11, 2024 Dr. London Anna MD Referring Provider Active Start: May 11, 2024 Team Status: Inactive Member Role/Relationship Status Dates Dr. Flako Tracy MD Primary Care Provider Active Start: May 13, 2024 End: May 14, 2024 Dr. Alexis Copeland DO Attending Provider Active Start: May 13, 2024 End: May 14, 2024 Dr. Alexis Copeland DO Emergency Provider Active Start: May 13, 2024 End: May 14, 2024 Team Status: Inactive Member Role/Relationship Status Dates Dr. Flako Tracy MD Primary Care Provider Active Start: May 15, 2024 End: May 17, 2024 Dr. Gallito Roberson MD Emergency Provider Active S tart: May 15, 2024 End: May 17, 2024 Dr. South Jesus DO Admit Provider Active Start: May 15, 2024 End: May 17, 2024 Dr. South Jesus DO Other Provider Active Start: May 15, 2024 End: May 17, 2024 Dr. Adonis Love DO Attending Provider Active Start: May 15, 2024 End: May 17, 2024 Dr. Adonis Love DO Other Provider Active Star t: May 15, 2024 Team Status: Active Member Role/Relationship Status Dates Dr. Flako Tracy MD Primary Care Provider Active Start: May 16, 2024 Dr. Gallito Roberson MD Emergency Provider Active S tart: May 16, 2024 Dr. South Jesus DO Admit Provider Active Start: May 16, 2024 Dr. South Jesus DO Other Provider Active Start: May 16, 2024 Dr. Adnois Love DO Attending Provider Active Start: May 16, 2024 Dr. Adonis Love DO Other Provider Active Star t: May 16, 2024 Team Status: Active Member Role/Relationship Status Dates Dr. Flako Tracy MD Primary Care Provider Active Start: May 16, 2024 Dr. Gallito Roberson MD Emergency Provider Active S tart: May 16, 2024 Dr. South Jesus DO Admit Provider Active Start: May 16, 2024 Dr. South Jesus DO Other Provider Active Start: May 16, 2024 Dr. Adonis Love DO Referring Provider Active Start: May 16, 2024 Dr. Adonis Love DO Other Provider Active Star t: May 16, 2024 Dr. Omer Jane DO Attending Provider Active Start: May 16, 2024 Team Status: Active Member Role/Relationship Status Dates Dr. Flako Tracy MD Primary Care Provider Active Start: May 17, 2024 Dr. Gallito Roberson MD Emergency Provider Active S tart: May 17, 2024 Dr. South Jesus DO Admit Provider Active Start: May 17, 2024 Dr. South Jesus DO Other Provider Active Start: May 17, 2024 Dr. Adonis Love DO Attending Provider Active Start: May 17, 2024 Dr. Adonis Love DO Other Provider Active Star t: May 17, 2024 Team Status: Inactive Member Role/Relationship Status Dates Dr. Flako Tracy MD Primary Care Provider Active Start: May 24, 2024 End: May 24, 2024 Kay Cavazos PA, PA Attending Provider Active Start: May 24, 2024 End: May 24, 2024 Kay Cavazos PA, PA Referring Provider Active Start: May 24, 2024 End: May 24, 2024 Dr. London Anna MD Other Provider Active St art: May 24, 2024 End: May 24, 2024 Team Status: Inactive Member Role/Relationship Status Dates Dr. Flako Tracy MD Primary Care Provider Active Start: May 30, 2024 End: May 30, 2024 Dr. Timothy James DO Attending Provider Active Start: May 30, 2024 End: May 30, 2024 Dr. Timothy James DO Emergency Provider Active Start: May 30, 2024 End: May 30, 2024 Team Status: Inactive Member Role/Relationship Status Dates Dr. Flako Tracy MD Primary Care Provider Active Start: June 02, 2024 End: June 05, 2024 Dr. Ian Brambila DO Emergency Provider Active Start: June 02, 2024 End: June 05, 2024 Dr. Cheryl Carroll DO Admit Provider Active Start : June 02, 2024 End: June 05, 2024 Dr. Cheryl Carroll DO Other Provider Active Start : June 02, 2024 End: June 05, 2024 Dr. South Lopez MD Attending Provider Active Start: June 02, 2024 End: June 05, 2024 Team Status: Active Member Role/Relationship Status Dates Dr. Flako Tracy MD Primary Care Provider Active Start: June 02, 2024 Dr. Ian Brambila DO Emergency Provider Active Start: June 02, 2024 Dr. Cheryl Carroll DO Admit Provider Active Start : June 02, 2024 Dr. Cheryl Carroll DO Attending Provider Active S tart: June 02, 2024 Dr. Cheryl Carroll DO Other Provider Active Start : June 02, 2024 Team Status: Active Member Role/Relationship Status Dates Dr. Flako Tracy MD Primary Care Provider Active Start: June 03, 2024 Dr. Ian Brambila DO Emergency Provider Active Start: June 03, 2024 Dr. Cheryl Carroll DO Admit Provider Active Start : June 03, 2024 Dr. Cheryl Carroll DO Attending Provider Active S tart: June 03, 2024 Dr. Cheryl Carroll DO Other Provider Active Start : June 03, 2024 Team Status: Active Member Role/Relationship Status Dates Dr. Flako Tracy MD Primary Care Provider Active Start: June 04, 2024 Dr. Ian Brambila DO Emergency Provider Active Start: June 04, 2024 Dr. Cheryl Carroll DO Admit Provider Active Start : June 04, 2024 Dr. Cheryl Carroll DO Other Provider Active Start : June 04, 2024 Dr. South Lopez MD Attending Provider Active Start: June 04, 2024 Dr. South Lopez MD Other Provider Active Star t: June 04, 2024 Team Status: Active Member Role/Relationship Status Dates Dr. Flako Tracy MD Primary Care Provider Active Start: June 05, 2024 Dr. Ian Brambila DO Emergency Provider Active Start: June 05, 2024 Dr. Cheryl Carroll DO Admit Provider Active Start : June 05, 2024 Dr. Cheryl Carroll DO Other Provider Active Start : June 05, 2024 Dr. South Lopez MD Attending Provider Active Start: June 05, 2024 Dr. South Lopez MD Other Provider Active Star t: June 05, 2024 Team Status: Inactive Member Role/Relationship Status Dates Dr. Flako Tracy MD Primary Care Provider Active Start: June 11, 2024 End: June 11, 2024 Dr. Low Patino MD Attending Provider Active S tart: June 11, 2024 End: June 11, 2024 Team Status: Active Member Role/Relationship Status Dates Dr. Flako Tracy MD Primary Care Provider Active Start: June 12, 2024 Dr. Flako Tracy MD Attending Provider Active Start: June 12, 2024 Team Status: Inactive Member Role/Relationship Status Dates Dr. Flako Tracy MD Primary Care Provider Active Start: June 13, 2024 End: June 13, 2024 Dr. Flako Tracy MD Referring Provider Active Start: June 13, 2024 End: June 13, 2024 Dr. Maykel Sloan MD Attending Provider Active Start: June 13, 2024 End: June 13, 2024 Team Status: Inactive Member Role/Relationship Status Dates Dr. Flako Tracy MD Primary Care Provider Active Start: June 22, 2024 End: June 22, 2024 LORI Ferraro Attending Provider Active Star t: June 22, 2024 End: June 22, 2024 Kay SANDOVAL, PA Referring Provider Active Start: June 22, 2024 End: June 22, 2024 Team Status: Active Member Role/Relationship Status Dates Dr. Flako Tracy MD Primary Care Provider Active Start: June 25, 2024 Dr. Flako Tracy MD Attending Provider Active Start: June 25, 2024 Team Status: Inactive Member Role/Relationship Status Dates Dr. Flako Tracy MD Primary Care Provider Active Start: June 25, 2024 End: June 25, 2024 Otoniel King PRODUCER ASSISTANT, PRODUCER ASSISTANT-C Attending Provider Active S tart: June 25, 2024 End: June 25, 2024 Team Status: Inactive Member Role/Relationship Status Dates Dr. Flako Tracy MD Primary Care Provider Active Start: July 11, 2024 End: July 11, 2024 Dr. Maykel Sloan MD Attending Provider Active Start: July 11, 2024 End: July 11, 2024 Dr. Maykel Sloan MD Referring Provider Active Start: July 11, 2024 End: July 11, 2024 Team Status: Inactive Member Role/Relationship Status Dates Dr. Flako Tracy MD Primary Care Provider Active Start: July 13, 2024 End: July 13, 2024 Dr. Maykel Sloan MD Attending Provider Active Start: July 13, 2024 End: July 13, 2024 Dr. Maykel Sloan MD Referring Provider Active Start: July 13, 2024 End: July 13, 2024 Team Status: Inactive Member Role/Relationship Status Dates Dr. Flako Tracy MD Primary Care Provider Active Start: August 13, 2024 End: August 13, 2024 Kay Cavazos PA, PA Attending Provider Active Start: August 13, 2024 End: August 13, 2024 Kay Cavazos PA, PA Referring Provider Active Start: August 13, 2024 End: August 13, 2024 Dr. London Anna MD Other Provider Active St art: August 13, 2024 End: August 13, 2024 Team Status: Inactive Member Role/Relationship Status Dates Dr. Flako Tracy MD Primary Care Provider Active Start: May 24, 2024 End: May 24, 2024 Kay Cavazos PA, PA Attending Provider Active Start: May 24, 2024 End: May 24, 2024 Kay Cavazos PA, PA Referring Provider Active Start: May 24, 2024 End: May 24, 2024 Dr. London Anna MD Other Provider Active St art: May 24, 2024 End: May 24, 2024 Team Status: Inactive Member Role/Relationship Status Dates Dr. Flako Tracy MD Primary Care Provider Active Start: May 30, 2024 End: May 30, 2024 Dr. Timothy James DO Attending Provider Active Start: May 30, 2024 End: May 30, 2024 Dr. Timothy James DO Emergency Provider Active Start: May 30, 2024 End: May 30, 2024 Team Status: Inactive Member Role/Relationship Status Dates Dr. Flako Tracy MD Primary Care Provider Active Start: June 02, 2024 End: June 05, 2024 Dr. Ian Brambila DO Emergency Provider Active Start: June 02, 2024 End: June 05, 2024 Dr. Cheryl Carroll DO Admit Provider Active Start : June 02, 2024 End: June 05, 2024 Dr. Cheryl Carroll DO Other Provider Active Start : June 02, 2024 End: June 05, 2024 Dr. South Lopez MD Attending Provider Active Start: June 02, 2024 End: June 05, 2024 Team Status: Active Member Role/Relationship Status Dates Dr. Flako Tracy MD Primary Care Provider Active Start: June 02, 2024 Dr. Ian Brambila DO Emergency Provider Active Start: June 02, 2024 Dr. Cheryl Carroll DO Admit Provider Active Start : June 02, 2024 Dr. Cheryl Carroll DO Attending Provider Active S tart: June 02, 2024 Dr. Cheryl Carroll DO Other Provider Active Start : June 02, 2024 Team Status: Active Member Role/Relationship Status Dates Dr. Flako Tracy MD Primary Care Provider Active Start: June 03, 2024 Dr. Ian Brambila DO Emergency Provider Active Start: June 03, 2024 Dr. Cheryl Carroll DO Admit Provider Active Start : June 03, 2024 Dr. Cheryl Carroll DO Attending Provider Active S tart: June 03, 2024 Dr. Cheryl Carroll DO Other Provider Active Start : June 03, 2024 Team Status: Active Member Role/Relationship Status Dates Dr. Flako Tracy MD Primary Care Provider Active Start: June 04, 2024 Dr. Ian Brambila DO Emergency Provider Active Start: June 04, 2024 Dr. Cheryl Carroll DO Admit Provider Active Start : June 04, 2024 Dr. Cheryl Carroll DO Other Provider Active Start : June 04, 2024 Dr. South Lopez MD Attending Provider Active Start: June 04, 2024 Dr. South Lopez MD Other Provider Active Star t: June 04, 2024 Team Status: Active Member Role/Relationship Status Dates Dr. Flako Tracy MD Primary Care Provider Active Start: June 05, 2024 Dr. Ian Brambila DO Emergency Provider Active Start: June 05, 2024 Dr. Cheryl Carroll DO Admit Provider Active Start : June 05, 2024 Dr. Cheryl Carroll DO Other Provider Active Start : June 05, 2024 Dr. South Lopez MD Attending Provider Active Start: June 05, 2024 Dr. South Lopez MD Other Provider Active Star t: June 05, 2024 Team Status: Inactive Member Role/Relationship Status Dates Dr. Flako Tracy MD Primary Care Provider Active Start: June 11, 2024 End: June 11, 2024 Dr. Low Patino MD Attending Provider Active S tart: June 11, 2024 End: June 11, 2024 Team Status: Active Member Role/Relationship Status Dates Dr. Flako Tracy MD Primary Care Provider Active Start: June 12, 2024 Dr. Flako Tracy MD Attending Provider Active Start: June 12, 2024 Team Status: Inactive Member Role/Relationship Status Dates Dr. Flako Tracy MD Primary Care Provider Active Start: June 13, 2024 End: June 13, 2024 Dr. Flako Tracy MD Referring Provider Active Start: June 13, 2024 End: June 13, 2024 Dr. Maykel Sloan MD Attending Provider Active Start: June 13, 2024 End: June 13, 2024 Team Status: Inactive Member Role/Relationship Status Dates Dr. Flako Tracy MD Primary Care Provider Active Start: June 22, 2024 End: June 22, 2024 LORI Ferraro Attending Provider Active Star t: June 22, 2024 End: June 22, 2024 Kay SANDOVAL, PA Referring Provider Active Start: June 22, 2024 End: June 22, 2024 Team Status: Active Member Role/Relationship Status Dates Dr. Flako Tracy MD Primary Care Provider Active Start: June 25, 2024 Dr. Flako Tracy MD Attending Provider Active Start: June 25, 2024 Team Status: Inactive Member Role/Relationship Status Dates Dr. Flako Tracy MD Primary Care Provider Active Start: June 25, 2024 End: June 25, 2024 Otoniel King PRODUCER ASSISTANT, PRODUCER ASSISTANT-C Attending Provider Active S tart: June 25, 2024 End: June 25, 2024 Team Status: Inactive Member Role/Relationship Status Dates Dr. Flako Tracy MD Primary Care Provider Active Start: July 11, 2024 End: July 11, 2024 Dr. Maykel Sloan MD Attending Provider Active Start: July 11, 2024 End: July 11, 2024 Dr. Maykel Sloan MD Referring Provider Active Start: July 11, 2024 End: July 11, 2024 Team Status: Inactive Member Role/Relationship Status Dates Dr. Flako Tracy MD Primary Care Provider Active Start: July 13, 2024 End: July 13, 2024 Dr. Maykel Sloan MD Attending Provider Active Start: July 13, 2024 End: July 13, 2024 Dr. Maykel Sloan MD Referring Provider Active Start: July 13, 2024 End: July 13, 2024 Team Status: Inactive Member Role/Relationship Status Dates Dr. Flako Tracy MD Primary Care Provider Active Start: August 13, 2024 End: August 13, 2024 Kay SANDOVAL PA Attending Provider Active Start: August 13, 2024 End: August 13, 2024 Kay SANDOVAL, PA Referring Provider Active Start: August 13, 2024 End: August 13, 2024 Dr. London Anna MD Other Provider Active St art: August 13, 2024 End: August 13, 2024 Team Status: Inactive Member Role/Relationship Status Dates Dr. Flako Tracy MD Primary Care Provider Active Start: September 12, 2024 End: September 12, 2024 Dr. Maykel Sloan MD Attending Provider Active Start: September 12, 2024 End: September 12, 2024 Dr. Maykel Sloan MD Referring Provider Active Start: September 12, 2024 End: September 12, 2024 Team Status: Active Member Role/Relationship Status Dates Dr. Flako Tracy MD Primary Care Provider Active Start: September 12, 2024 Kay Cavazos PA, PA Attending Provider Active Start: September 12, 2024 Kay Cavazos PA, PA Referring Provider Active Start: September 12, 2024 Dr. London Anna MD Other Provider Active St art: September 12, 2024 Button Maker Relationship Specialty Start Date End Date Flako Tracy MD [address] [place] [address] PCP - General Family Medicine 05/10/19 Low Patino MD [address] [id number] Specialty Business Process Lead Cardiology 01/22/23 Otoniel King APRN.MORTICIAN INVESTIGATOR [address] [facility] [place] [address] Director Of Photography Family Medicine 02/21/24 Team Status: Inactive Member Role/Relationship Status Dates Dr. Flako Tracy MD Primary Care Provider Active Start: September 10, 2024 End: September 10, 2024 Dr. Low Patino MD Attending Provider Active S tart: September 10, 2024 End: September 10, 2024 Team Status: Inactive Member Role/Relationship Status Dates Dr. Flako Tracy MD Primary Care Provider Active Start: September 12, 2024 End: September 12, 2024 Dr. Maykel Sloan MD Attending Provider Active Start: September 12, 2024 End: September 12, 2024 Dr. Maykel Sloan MD Referring Provider Active Start: September 12, 2024 End: September 12, 2024 Team Status: Active Member Role/Relationship Status Dates Dr. Flako Tracy MD Primary Care Provider Active Start: September 12, 2024 Kay SANDOVAL PA Attending Provider Active Start: September 12, 2024 Kay SANDOVAL PA Referring Provider Active Start: September 12, 2024 Dr. London Anna MD Other Provider Active St art: September 12, 2024 Button Maker Relationship Specialty Start Date End Date Flako Tracy MD [address] [facility] [address] [place] [id number] PCP - General Family Medicine 05/10/19 Low Patino MD [address] [id number] Specialty Business Process Lead Cardiology 01/22/23 Otoniel King APRN.MORTICIAN INVESTIGATOR [address] [place], [place] [id number] Director Of Photography Family Medicine 02/21/24 Button Maker Relationship Specialty Start Date End Date Flako Tracy MD [address] [place] [address] PCP - General Family Medicine 05/10/19 Low Patino MD [address] [address] Specialty Business Process Lead Cardiology 01/22/23 Otoniel King APRN.MORTICIAN INVESTIGATOR [address] [place] [address] Director [facility] 02/21/24 Button Maker Relationship Specialty Start Date End Date Flako Tracy MD [address] [place] [address] PCP - General Family Medicine 05/10/19 Low Patino MD [address] [address] Specialty Business Process Lead Cardiology 01/22/23 Otoniel King APRN.MORTICIAN INVESTIGATOR [address] [place] [address] Director Of Photography Family Medicine 02/21/24 Team Status: Inactive Member Role/Relationship Status Dates Dr. Flako Tracy MD Primary Care Provider Active Start: June 11, 2024 End: June 11, 2024 Dr. Low Patino MD Attending Provider Active S tart: June 11, 2024 End: June 11, 2024 Team Status: Active Member Role/Relationship Status Dates Dr. Flako Tracy MD Primary Care Provider Active Start: June 12, 2024 Dr. Flako Tracy MD Attending Provider Active Start: June 12, 2024 Team Status: Inactive Member Role/Relationship Status Dates Dr. Flako Tracy MD Primary Care Provider Active Start: June 13, 2024 End: June 13, 2024 Dr. Flako Tracy MD Referring Provider Active Start: June 13, 2024 End: June 13, 2024 Dr. Maykel Sloan MD Attending Provider Active Start: June 13, 2024 End: June 13, 2024 Team Status: Inactive Member Role/Relationship Status Dates Dr. Flako Tracy MD Primary Care Provider Active Start: June 22, 2024 End: June 22, 2024 LORI Ferraro Attending Provider Active Star t: June 22, 2024 End: June 22, 2024 Kay SANDOVAL, PA Referring Provider Active Start: June 22, 2024 End: June 22, 2024 Team Status: Active Member Role/Relationship Status Dates Dr. Flako Tracy MD Primary Care Provider Active Start: June 25, 2024 Dr. Flako Tracy MD Attending Provider Active Start: June 25, 2024 Team Status: Inactive Member Role/Relationship Status Dates Dr. Flako Tracy MD Primary Care Provider Active Start: June 25, 2024 End: June 25, 2024 Otoniel King PRODUCER ASSISTANT, PRODUCER ASSISTANT-C Attending Provider Active S tart: June 25, 2024 End: June 25, 2024 Team Status: Inactive Member Role/Relationship Status Dates Dr. Flako Tracy MD Primary Care Provider Active Start: July 11, 2024 End: July 11, 2024 Dr. Maykel Sloan MD Attending Provider Active Start: July 11, 2024 End: July 11, 2024 Dr. Maykel Sloan MD Referring Provider Active Start: July 11, 2024 End: July 11, 2024 Team Status: Inactive Member Role/Relationship Status Dates Dr. Flako Tracy MD Primary Care Provider Active Start: July 13, 2024 End: July 13, 2024 Dr. Maykel Sloan MD Attending Provider Active Start: July 13, 2024 End: July 13, 2024 Dr. Maykel Sloan MD Referring Provider Active Start: July 13, 2024 End: July 13, 2024 Team Status: Inactive Member Role/Relationship Status Dates Dr. Flako Tracy MD Primary Care Provider Active Start: August 13, 2024 End: August 13, 2024 LORI Harding Attending Provider Active Start: August 13, 2024 End: August 13, 2024 LORI Harding Referring Provider Active Start: August 13, 2024 End: August 13, 2024 Dr. London Anna MD Other Provider Active St art: August 13, 2024 End: August 13, 2024 Team Status: Inactive Member Role/Relationship Status Dates Dr. Flako Tracy MD Primary Care Provider Active Start: September 10, 2024 End: September 10, 2024 Dr. Low Patino MD Attending Provider Active S tart: September 10, 2024 End: September 10, 2024 Dr. Low Patino MD Referring Provider Active S tart: September 10, 2024 End: September 10, 2024 Team Status: Inactive Member Role/Relationship Status Dates Dr. Flako Tracy MD Primary Care Provider Active Start: September 12, 2024 End: September 12, 2024 Dr. Maykel Sloan MD Attending Provider Active Start: September 12, 2024 End: September 12, 2024 Dr. Maykel Sloan MD Referring Provider Active Start: September 12, 2024 End: September 12, 2024 Team Status: Inactive Member Role/Relationship Status Dates Dr. Flako Tracy MD Primary Care Provider Active Start: September 12, 2024 End: October 04, 2024 LORI Harding Attending Provider Active Start: September 12, 2024 End: October 04, 2024 LORI Harding Referring Provider Active Start: September 12, 2024 End: October 04, 2024 Dr. London Anna MD Other Provider Active St art: September 12, 2024 End: October 04, 2024 Button Maker Relationship Specialty Start Date End Date Flako Tracy MD [address] [place], [place] [id number] PCP - General Family Medicine 05/10/19 Low Patino MD [address] [id number] Specialty Business Process Lead Cardiology 01/22/23 Otoniel King APRN.MORTICIAN INVESTIGATOR [address] [place] [address] Director Of Photography Family Medicine 02/21/24 Team Status: Inactive Member Role/Relationship Status Dates Dr. Flako Tracy MD Primary Care Provider Active Start: June 22, 2024 End: June 22, 2024 LORI Ferraro Attending Provider Active Star t: June 22, 2024 End: June 22, 2024 Kay Cavazos PA, PA Referring Provider Active Start: June 22, 2024 End: June 22, 2024 Team Status: Active Member Role/Relationship Status Dates Dr. Flako Tracy MD Primary Care Provider Active Start: June 25, 2024 Dr. Flako Tracy MD Attending Provider Active Start: June 25, 2024 Team Status: Inactive Member Role/Relationship Status Dates Dr. Flako Tracy MD Primary Care Provider Active Start: June 25, 2024 End: June 25, 2024 Otoniel King PRODUCER ASSISTANT, PRODUCER ASSISTANT-C Attending Provider Active S tart: June 25, 2024 End: June 25, 2024 Team Status: Inactive Member Role/Relationship Status Dates Dr. Flako Tracy MD Primary Care Provider Active Start: July 11, 2024 End: July 11, 2024 Dr. Maykel Sloan MD Attending Provider Active Start: July 11, 2024 End: July 11, 2024 Dr. Maykel Sloan MD Referring Provider Active Start: July 11, 2024 End: July 11, 2024 Team Status: Inactive Member Role/Relationship Status Dates Dr. Flako Tracy MD Primary Care Provider Active Start: July 13, 2024 End: July 13, 2024 Dr. Maykel Sloan MD Attending Provider Active Start: July 13, 2024 End: July 13, 2024 Dr. Maykel Sloan MD Referring Provider Active Start: July 13, 2024 End: July 13, 2024 Team Status: Inactive Member Role/Relationship Status Dates Dr. Flako Tracy MD Primary Care Provider Active Start: August 13, 2024 End: August 13, 2024 Kay Cavazos PA, PA Attending Provider Active Start: August 13, 2024 End: August 13, 2024 Kay SANDOVAL, PA Referring Provider Active Start: August 13, 2024 End: August 13, 2024 Dr. London Anna MD Other Provider Active St art: August 13, 2024 End: August 13, 2024 Team Status: Inactive Member Role/Relationship Status Dates Dr. Flako Tracy MD Primary Care Provider Active Start: September 10, 2024 End: September 10, 2024 Dr. Low Patino MD Attending Provider Active S tart: September 10, 2024 End: September 10, 2024 Dr. Low Patino MD Referring Provider Active S tart: September 10, 2024 End: September 10, 2024 Team Status: Inactive Member Role/Relationship Status Dates Dr. Flako Tracy MD Primary Care Provider Active Start: September 12, 2024 End: September 12, 2024 Dr. Maykel Sloan MD Attending Provider Active Start: September 12, 2024 End: September 12, 2024 Dr. Maykel Sloan MD Referring Provider Active Start: September 12, 2024 End: September 12, 2024 Team Status: Inactive Member Role/Relationship Status Dates Dr. Flako Tracy MD Primary Care Provider Active Start: September 12, 2024 End: October 04, 2024 Kay SANDOVAL PA Attending Provider Active Start: September 12, 2024 End: October 04, 2024 Kay SANDOVAL, PA Referring Provider Active Start: September 12, 2024 End: October 04, 2024 Dr. London Anna MD Other Provider Active St art: September 12, 2024 End: October 04, 2024 Team Status: Active Member Role/Relationship Status Dates Dr. Flako Tracy MD Primary Care Provider Active Start: October 08, 2024 Kay SANDOVAL PA Attending Provider Active Start: October 08, 2024 Kay SANDOVAL, PA Referring Provider Active Start: October 08, 2024 Dr. London Anna MD Other Provider Active St art: October 08, 2024 Team Status: Inactive Member Role/Relationship Status Dates Dr. Flako Tracy MD Primary Care Provider Active Start: October 17, 2024 End: October 17, 2024 Dr. Flkao Tracy MD Referring Provider Active Start: October 17, 2024 End: October 17, 2024 Kay Cavazos PA, PA Attending Provider Active Start: October 17, 2024 End: October 17, 2024 Button Maker Relationship Specialty Start Date End Date Flako Tracy MD [address] [place] [address] PCP - General Family Medicine 05/10/19 Low Patino MD [address] [facility] [address] [place] [address] Specialty Business Process Lead Cardiology 01/22/23 Otoniel King APRN.MORTICIAN INVESTIGATOR [address] [place] [address] Director Of Photography Family Medicine 02/21/24 Button Maker Relationship Specialty Start Date End Date Flako Tracy MD [address] [place] [address] PCP - General Family Medicine 05/10/19 Low Patino MD [address] [facility] [address] [place] [address] Specialty Business Process Lead Cardiology 01/22/23 Otoniel King, SILK SCREEN CUTTER.MORTICIAN INVESTIGATOR [address] [place] [address] Director Of Photography Family Medicine 02/21/24 Button Maker Relationship Specialty Start Date End Date Flako Tracy MD [address] [facility] [address] PCP - General Family Medicine 05/10/19 Low Patino MD [address] [place] [address] Specialty Business Process Lead Cardiology 01/22/23 Otoniel King APRN.MORTICIAN INVESTIGATOR [address] [place] [address] Director Of Photography Family Medicine 02/21/24 Button Maker Relationship Specialty Start Date End Date Flako Tracy MD [address] [place] [address] PCP - General Family Medicine 05/10/19 Low Patino MD [address] [address] Specialty Business Process Lead Cardiology 01/22/23 Otoniel King APRN.MORTICIAN INVESTIGATOR [address] [place] [address] Director Of Photography Family Medicine 02/21/24 Button Maker Relationship Specialty Start Date End Date Flako Tracy MD [address] [place] [address] PCP - General Family Medicine 05/10/19 Low Patino MD [address] [facility] [address] [address] Specialty Business Process Lead Cardiology 01/22/23 Otoniel King APRN.MORTICIAN INVESTIGATOR [address] [place] [address] Director Of Photography Family Medicine 02/21/24 Button Maker Relationship Specialty Start Date End Date Flako Tracy MD [address] [place] [address] PCP - General Family Medicine 05/10/19 Low Patino MD [address] [place] [address] Specialty Business Process Lead Cardiology 01/22/23 Otoniel King APRN.MORTICIAN INVESTIGATOR [address] [place] [address] Director Of Photography Family Medicine 02/21/24 Button Maker Relationship Specialty Start Date End Date Flako Tracy MD [address] [place] [address] PCP - General Family Medicine 05/10/19 Low Patino MD [address] [place] [address] Specialty Business Process Lead Cardiology 01/22/23 Otoniel King APRN.MORTICIAN INVESTIGATOR [address] [place] [address] Director Of Photography Family Medicine 02/21/24 Team Status: Inactive Member Role/Relationship Status Dates Dr. Flako Tracy MD Primary Care Provider Active Start: July 11, 2024 End: July 11, 2024 Dr. Maykel Sloan MD Attending Provider Active Start: July 11, 2024 End: July 11, 2024 Dr. Maykel Sloan MD Referring Provider Active Start: July 11, 2024 End: July 11, 2024 Team Status: Inactive Member Role/Relationship Status Dates Dr. Flako Tracy MD Primary Care Provider Active Start: July 13, 2024 End: July 13, 2024 Dr. Makyel Sloan MD Attending Provider Active Start: July 13, 2024 End: July 13, 2024 Dr. Maykel Sloan MD Referring Provider Active Start: July 13, 2024 End: July 13, 2024 Team Status: Inactive Member Role/Relationship Status Dates Dr. Flako Tracy MD Primary Care Provider Active Start: August 13, 2024 End: August 13, 2024 Kay Cavazos PA, PA Attending Provider Active Start: August 13, 2024 End: August 13, 2024 Kay Cavazos PA, PA Referring Provider Active Start: August 13, 2024 End: August 13, 2024 Dr. London Anna MD Other Provider Active St art: August 13, 2024 End: August 13, 2024 Team Status: Inactive Member Role/Relationship Status Dates Dr. Flako Tracy MD Primary Care Provider Active Start: September 10, 2024 End: September 10, 2024 Dr. Low Patino MD Attending Provider Active S tart: September 10, 2024 End: September 10, 2024 Dr. Low Patino MD Referring Provider Active S tart: September 10, 2024 End: September 10, 2024 Team Status: Inactive Member Role/Relationship Status Dates Dr. Flako Tracy MD Primary Care Provider Active Start: September 12, 2024 End: September 12, 2024 Dr. Maykel Sloan MD Attending Provider Active Start: September 12, 2024 End: September 12, 2024 Dr. Maykel Sloan MD Referring Provider Active Start: September 12, 2024 End: September 12, 2024 Team Status: Inactive Member Role/Relationship Status Dates Dr. Flako Tracy MD Primary Care Provider Active Start: September 12, 2024 End: October 04, 2024 Kay Cavazos PA, PA Attending Provider Active Start: September 12, 2024 End: October 04, 2024 Kay Cavazos PA, PA Referring Provider Active Start: September 12, 2024 End: October 04, 2024 Dr. London Anna MD Other Provider Active St art: September 12, 2024 End: October 04, 2024 Team Status: Inactive Member Role/Relationship Status Dates Dr. Flako Tracy MD Primary Care Provider Active Start: October 17, 2024 End: October 17, 2024 Dr. Flako Tracy MD Referring Provider Active Start: October 17, 2024 End: October 17, 2024 LORI Harding Attending Provider Active Start: October 17, 2024 End: October 17, 2024 Team Status: Inactive Member Role/Relationship Status Dates Dr. Flako Tracy MD Primary Care Provider Active Start: October 26, 2024 End: October 26, 2024 LORI Harding Attending Provider Active Start: October 26, 2024 End: October 26, 2024 LORI Harding Referring Provider Active Start: October 26, 2024 End: October 26, 2024 Dr. London Anna MD Other Provider Active St art: October 26, 2024 End: October 26, 2024 Button Maker Relationship Specialty Start Date End Date Flako Tracy MD [address] [place], [place] [id number] PCP - General Family Medicine 05/10/19 Low Patino MD [address] [id number] Specialty Business Process Lead Cardiology 01/22/23 Otoniel King APRN.MORTICIAN INVESTIGATOR [address] [place], [place] [id number] Director Of Photography Family Medicine 02/21/24 Team Status: Active Member Role/Relationship Status Dates Dr. Flako Tracy MD Primary care physician Active Team Status: Inactive Member Role/Relationship Status Dates Dr. Flako Tracy MD Primary care physician Active Start: August 13, 2024 End: August 13, 2024 LORI Harding Attending physician Active Start: August 13, 2024 End: August 13, 2024 LORI Harding Referring Provider Active Start: August 13, 2024 End: August 13, 2024 Dr. London Anna MD Nurse Practitioner Active Start: August 13, 2024 End: August 13, 2024 Team Status: Inactive Member Role/Relationship Status Dates Dr. Flako Tracy MD Primary care physician Active Start: September 10, 2024 End: September 10, 2024 Dr. Low Patino MD Attending physician Active Start: September 10, 2024 End: September 10, 2024 Dr. Low Patino MD Referring Provider Active S tart: September 10, 2024 End: September 10, 2024 Team Status: Inactive Member Role/Relationship Status Dates Dr. Flako Tracy MD Primary care physician Active Start: September 12, 2024 End: September 12, 2024 Dr. Maykel Sloan MD Attending physician Active Start: September 12, 2024 End: September 12, 2024 Dr. Maykel Sloan MD Referring Provider Active Start: September 12, 2024 End: September 12, 2024 Team Status: Inactive Member Role/Relationship Status Dates Dr. Flako Tracy MD Primary care physician Active Start: September 12, 2024 End: October 04, 2024 Kay SANDOVAL, PA Attending physician Active Start: September 12, 2024 End: October 04, 2024 Kay Cavazos PA, PA Referring Provider Active Start: September 12, 2024 End: October 04, 2024 Dr. London Anna MD Nurse Practitioner Active Start: September 12, 2024 End: October 04, 2024 Team Status: Inactive Member Role/Relationship Status Dates Dr. Flako Tracy MD Primary care physician Active Start: October 17, 2024 End: October 17, 2024 Dr. Flako Tracy MD Referring Provider Active Start: October 17, 2024 End: October 17, 2024 Kay Cavazos PA, PA Attending physician Active Start: October 17, 2024 End: October 17, 2024 Team Status: Inactive Member Role/Relationship Status Dates Dr. Flako Tracy MD Primary care physician Active Start: October 26, 2024 End: October 26, 2024 Kay Cavazos PA, PA Attending physician Active Start: October 26, 2024 End: October 26, 2024 Kay Cavazos PA, PA Referring Provider Active Start: October 26, 2024 End: October 26, 2024 Dr. London Anna MD Nurse Practitioner Active Start: October 26, 2024 End: October 26, 2024 Team Status: Inactive Member Role/Relationship Status Dates Dr. Flako Tracy MD Primary care physician Active Start: November 16, 2024 End: November 16, 2024 Kay SANDOVAL PA Attending physician Active Start: November 16, 2024 End: November 16, 2024 Kay SANDOVAL PA Referring Provider Active Start: November 16, 2024 End: November 16, 2024 Team Status: Active Member Role/Relationship Status Dates Dr. Flako Tracy MD Primary care physician Active Start: November 16, 2024 Dr. Hector Rodarte MD Attending physician Active Start: November 16, 2024 Team Status: Active Member Role/Relationship Status Dates Dr. Flako Tracy MD Primary care physician Active Start: November 30, 2024 Kay SANDOVAL PA Attending physician Active Start: November 30, 2024 Kay SANDOVAL PA Referring Provider Active Start: November 30, 2024 Dr. London Anna MD Nurse Practitioner Active Start: November 30, 2024 Team Status: Inactive Member Role/Relationship Status Dates Dr. Flako Tracy MD Primary care physician Active Start: November 30, 2024 End: December 04, 2024 Kay SANDOVAL PA Attending physician Active Start: November 30, 2024 End: December 04, 2024 Kay SANDOVAL PA Referring Provider Active Start: November 30, 2024 End: December 04, 2024 Dr. London Anna MD Nurse Practitioner Active Start: November 30, 2024 End: December 04, 2024 Team Status: Inactive Member Role/Relationship Status Dates Dr. Flako Tracy MD Primary care physician Active Start: December 10, 2024 End: December 10, 2024 Dr. Lwo Patino MD Attending physician Active Start: December 10, 2024 End: December 10, 2024 Source Comments (unrecognize d section and content) In the event this informatio n is protected by the Federal Confidentiality of Alcohol and Drug Abuse Patient Records regulations: The Federal rules restrict any use of the information to criminally investigate or prosecute any alcohol or drug abuse patient.[facility] Hospital[facility] the event this information is protected by the Federal Confidentiality of Alcohol and Drug Abuse Patient Records regulations: The Federal rules restrict any use of the information to criminally investigate or prosecute any alcohol or drug abuse patient.[facility] HospitalIn the event this information is protected by the Federal Confidentiality of Alcohol and Drug Abuse Patient Records regulations: The Federal rules restrict any use of the information to criminally investigate or prosecute any alcohol or drug abuse patient.[facility] HospitalIn the event this information is protected by the Federal Confidentiality of Alcohol and Drug Abuse Patient Records regulations: The Federal rules restrict any use of the information to criminally investigate or prosecute any alcohol or drug abuse patient.[facility] HospitalIn the event this information is protected by the Federal Confidentiality of Alcohol and Drug Abuse Patient Records regulations: The Federal rules restrict any use of the information to criminally investigate or prosecute any alcohol or drug abuse patient.[facility] HospitalIn the event this information is protected by the Federal Confidentiality of Alcohol and Drug Abuse Patient Records regulations: The Federal rules restrict any use of the information to criminally investigate or prosecute any alcohol or drug abuse patient.[facility] HospitalIn the event this information is protected by the Federal Confidentiality of Alcohol and Drug Abuse Patient Records regulations: The Federal rules restrict any use of the information to criminally investigate or prosecute any alcohol or drug abuse patient.[facility] HospitalIn the event this information is protected by the Federal Confidentiality of Alcohol and Drug Abuse Patient Records regulations: The Federal rules restrict any use of the information to criminally investigate or prosecute any alcohol or drug abuse patient.[facility] HospitalIn the event this information is protected by the Federal Confidentiality of Alcohol and Drug Abuse Patient Records regulations: The Federal rules restrict any use of the information to criminally investigate or prosecute any alcohol or drug abuse patient.[facility] HospitalIn the event this information is protected by the Federal Confidentiality of Alcohol and Drug Abuse Patient Records regulations: The Federal rules restrict any use of the information to criminally investigate or prosecute any alcohol or drug abuse patient.[facility] HospitalIn the event this information is protected by the Federal Confidentiality of Alcohol and Drug Abuse Patient Records regulations: The Federal rules restrict any use of the information to criminally investigate or prosecute any alcohol or drug abuse patient.[facility] HospitalIn the event this information is protected by the Federal Confidentiality of Alcohol and Drug Abuse Patient Records regulations: The Federal rules restrict any use of the information to criminally investigate or prosecute any alcohol or drug abuse patient.[facility] HospitalIn the event this information is protected by the Federal Confidentiality of Alcohol and Drug Abuse Patient Records regulations: The Federal rules restrict any use of the information to criminally investigate or prosecute any alcohol or drug abuse patient.[facility] HospitalIn the event this information is protected by the Federal Confidentiality of Alcohol and Drug Abuse Patient Records regulations: The Federal rules restrict any use of the information to criminally investigate or prosecute any alcohol or drug abuse patient.[facility] HospitalIn the event this information is protected by the Federal Confidentiality of Alcohol and Drug Abuse Patient Records regulations: The Federal rules restrict any use of the information to criminally investigate or prosecute any alcohol or drug abuse patient.[facility] HospitalIn the event this information is protected by the Federal Confidentiality of Alcohol and Drug Abuse Patient Records regulations: The Federal rules restrict any use of the information to criminally investigate or prosecute any alcohol or drug abuse patient.[facility] HospitalIn the event this information is protected by the Federal Confidentiality of Alcohol and Drug Abuse Patient Records regulations: The Federal rules restrict any use of the information to criminally investigate or prosecute any alcohol or drug abuse patient.[facility] HospitalIn the event this information is protected by the Federal Confidentiality of Alcohol and Drug Abuse Patient Records regulations: The Federal rules restrict any use of the information to criminally investigate or prosecute any alcohol or drug abuse patient.[facility] HospitalIn the event this information is protected by the Federal Confidentiality of Alcohol and Drug Abuse Patient Records regulations: The Federal rules restrict any use of the information to criminally investigate or prosecute any alcohol or drug abuse patient.[facility] HospitalIn the event this information is protected by the Federal Confidentiality of Alcohol and Drug Abuse Patient Records regulations: The Federal rules restrict any use of the information to criminally investigate or prosecute any alcohol or drug abuse patient.[facility] HospitalIn the event this information is protected by the Federal Confidentiality of Alcohol and Drug Abuse Patient Records regulations: The Federal rules restrict any use of the information to criminally investigate or prosecute any alcohol or drug abuse patient.[facility] HospitalIn the event this information is protected by the Federal Confidentiality of Alcohol and Drug Abuse Patient Records regulations: The Federal rules restrict any use of the information to criminally investigate or prosecute any alcohol or drug abuse patient.[facility] HospitalIn the event this information is protected by the Federal Confidentiality of Alcohol and Drug Abuse Patient Records regulations: The Federal rules restrict any use of the information to criminally investigate or prosecute any alcohol or drug abuse patient.[facility] HospitalIn the event this information is protected by the Federal Confidentiality of Alcohol and Drug Abuse Patient Records regulations: The Federal rules restrict any use of the information to criminally investigate or prosecute any alcohol or drug abuse patient.[facility] HospitalIn the event this information is protected by the Federal Confidentiality of Alcohol and Drug Abuse Patient Records regulations: The Federal rules restrict any use of the information to criminally investigate or prosecute any alcohol or drug abuse patient.[facility] HospitalIn the event this information is protected by the Federal Confidentiality of Alcohol and Drug Abuse Patient Records regulations: The Federal rules restrict any use of the information to criminally investigate or prosecute any alcohol or drug abuse patient.[facility] HospitalIn the event this information is protected by the Federal Confidentiality of Alcohol and Drug Abuse Patient Records regulations: The Federal rules restrict any use of the information to criminally investigate or prosecute any alcohol or drug abuse patient.[facility] HospitalIn the event this information is protected by the Federal Confidentiality of Alcohol and Drug Abuse Patient Records regulations: The Federal rules restrict any use of the information to criminally investigate or prosecute any alcohol or drug abuse patient.[facility] HospitalIn the event this information is protected by the Federal Confidentiality of Alcohol and Drug Abuse Patient Records regulations: The Federal rules restrict any use of the information to criminally investigate or prosecute any alcohol or drug abuse patient.[facility] HospitalIn the event this information is protected by the Federal Confidentiality of Alcohol and Drug Abuse Patient Records regulations: The Federal rules restrict any use of the information to criminally investigate or prosecute any alcohol or drug abuse patient.[facility] HospitalIn the event this information is protected by the Federal Confidentiality of Alcohol and Drug Abuse Patient Records regulations: The Federal rules restrict any use of the information to criminally investigate or prosecute any alcohol or drug abuse patient.[facility] HospitalIn the event this information is protected by the Federal Confidentiality of Alcohol and Drug Abuse Patient Records regulations: The Federal rules restrict any use of the information to criminally investigate or prosecute any alcohol or drug abuse patient.[facility] HospitalIn the event this information is protected by the Federal Confidentiality of Alcohol and Drug Abuse Patient Records regulations: The Federal rules restrict any use of the information to criminally investigate or prosecute any alcohol or drug abuse patient.[facility] HospitalIn the event this information is protected by the Federal Confidentiality of Alcohol and Drug Abuse Patient Records regulations: The Federal rules restrict any use of the information to criminally investigate or prosecute any alcohol or drug abuse patient.[facility] HospitalIn the event this information is protected by the Federal Confidentiality of Alcohol and Drug Abuse Patient Records regulations: The Federal rules restrict any use of the information to criminally investigate or prosecute any alcohol or drug abuse patient.[facility] HospitalIn the event this information is protected by the Federal Confidentiality of Alcohol and Drug Abuse Patient Records regulations: The Federal rules restrict any use of the information to criminally investigate or prosecute any alcohol or drug abuse patient.[facility] HospitalIn the event this information is protected by the Federal Confidentiality of Alcohol and Drug Abuse Patient Records regulations: The Federal rules restrict any use of the information to criminally investigate or prosecute any alcohol or drug abuse patient.[facility] HospitalIn the event this information is protected by the Federal Confidentiality of Alcohol and Drug Abuse Patient Records regulations: The Federal rules restrict any use of the information to criminally investigate or prosecute any alcohol or drug abuse patient.[facility] HospitalIn the event this information is protected by the Federal Confidentiality of Alcohol and Drug Abuse Patient Records regulations: The Federal rules restrict any use of the information to criminally investigate or prosecute any alcohol or drug abuse patient.[facility] HospitalIn the event this information is protected by the Federal Confidentiality of Alcohol and Drug Abuse Patient Records regulations: The Federal rules restrict any use of the information to criminally investigate or prosecute any alcohol or drug abuse patient.[facility] HospitalIn the event this information is protected by the Federal Confidentiality of Alcohol and Drug Abuse Patient Records regulations: The Federal rules restrict any use of the information to criminally investigate or prosecute any alcohol or drug abuse patient.[facility] HospitalIn the event this information is protected by the Federal Confidentiality of Alcohol and Drug Abuse Patient Records regulations: The Federal rules restrict any use of the information to criminally investigate or prosecute any alcohol or drug abuse patient.[facility] HospitalIn the event this information is protected by the Federal Confidentiality of Alcohol and Drug Abuse Patient Records regulations: The Federal rules restrict any use of the information to criminally investigate or prosecute any alcohol or drug abuse patient.[facility] HospitalIn the event this information is protected by the Federal Confidentiality of Alcohol and Drug Abuse Patient Records regulations: The Federal rules restrict any use of the information to criminally investigate or prosecute any alcohol or drug abuse patient.[facility] HospitalIn the event this information is protected by the Federal Confidentiality of Alcohol and Drug Abuse Patient Records regulations: The Federal rules restrict any use of the information to criminally investigate or prosecute any alcohol or drug abuse patient.[facility] HospitalIn the event this information is protected by the Federal Confidentiality of Alcohol and Drug Abuse Patient Records regulations: The Federal rules restrict any use of the information to criminally investigate or prosecute any alcohol or drug abuse patient.[facility] HospitalIn the event this information is protected by the Federal Confidentiality of Alcohol and Drug Abuse Patient Records regulations: The Federal rules restrict any use of the information to criminally investigate or prosecute any alcohol or drug abuse patient.[facility] HospitalIn the event this information is protected by the Federal Confidentiality of Alcohol and Drug Abuse Patient Records regulations: The Federal rules restrict any use of the information to criminally investigate or prosecute any alcohol or drug abuse patient.[facility] HospitalIn the event this information is protected by the Federal Confidentiality of Alcohol and Drug Abuse Patient Records regulations: The Federal rules restrict any use of the information to criminally investigate or prosecute any alcohol or drug abuse patient.[facility] HospitalIn the event this information is protected by the Federal Confidentiality of Alcohol and Drug Abuse Patient Records regulations: The Federal rules restrict any use of the information to criminally investigate or prosecute any alcohol or drug abuse patient.[facility] HospitalIn the event this information is protected by the Federal Confidentiality of Alcohol and Drug Abuse Patient Records regulations: The Federal rules restrict any use of the information to criminally investigate or prosecute any alcohol or drug abuse patient.[facility] HospitalIn the event this information is protected by the Federal Confidentiality of Alcohol and Drug Abuse Patient Records regulations: The Federal rules restrict any use of the information to criminally investigate or prosecute any alcohol or drug abuse patient.[facility] HospitalIn the event this information is protected by the Federal Confidentiality of Alcohol and Drug Abuse Patient Records regulations: The Federal rules restrict any use of the information to criminally investigate or prosecute any alcohol or drug abuse patient.[facility] HospitalIn the event this information is protected by the Federal Confidentiality of Alcohol and Drug Abuse Patient Records regulations: The Federal rules restrict any use of the information to criminally investigate or prosecute any alcohol or drug abuse patient.[facility] HospitalIn the event this information is protected by the Federal Confidentiality of Alcohol and Drug Abuse Patient Records regulations: The Federal rules restrict any use of the information to criminally investigate or prosecute any alcohol or drug abuse patient.[facility] HospitalIn the event this information is protected by the Federal Confidentiality of Alcohol and Drug Abuse Patient Records regulations: The Federal rules restrict any use of the information to criminally investigate or prosecute any alcohol or drug abuse patient.[facility] HospitalIn the event this information is protected by the Federal Confidentiality of Alcohol and Drug Abuse Patient Records regulations: The Federal rules restrict any use of the information to criminally investigate or prosecute any alcohol or drug abuse patient.[facility] HospitalIn the event this information is protected by the Federal Confidentiality of Alcohol and Drug Abuse Patient Records regulations: The Federal rules restrict any use of the information to criminally investigate or prosecute any alcohol or drug abuse patient.[facility] HospitalIn the event this information is protected by the Federal Confidentiality of Alcohol and Drug Abuse Patient Records regulations: The Federal rules restrict any use of the information to criminally investigate or prosecute any alcohol or drug abuse patient.[facility] HospitalIn the event this information is protected by the Federal Confidentiality of Alcohol and Drug Abuse Patient Records regulations: The Federal rules restrict any use of the information to criminally investigate or prosecute any alcohol or drug abuse patient.[facility] HospitalIn the event this information is protected by the Federal Confidentiality of Alcohol and Drug Abuse Patient Records regulations: The Federal rules restrict any use of the information to criminally investigate or prosecute any alcohol or drug abuse patient.[facility] HospitalIn the event this information is protected by the Federal Confidentiality of Alcohol and Drug Abuse Patient Records regulations: The Federal rules restrict any use of the information to criminally investigate or prosecute any alcohol or drug abuse patient.[facility] HospitalIn the event this information is protected by the Federal Confidentiality of Alcohol and Drug Abuse Patient Records regulations: The Federal rules restrict any use of the information to criminally investigate or prosecute any alcohol or drug abuse patient.[facility] HospitalIn the event this information is protected by the Federal Confidentiality of Alcohol and Drug Abuse Patient Records regulations: The Federal rules restrict any use of the information to criminally investigate or prosecute any alcohol or drug abuse patient.[facility] HospitalIn the event this information is protected by the Federal Confidentiality of Alcohol and Drug Abuse Patient Records regulations: The Federal rules restrict any use of the information to criminally investigate or prosecute any alcohol or drug abuse patient.[facility] HospitalIn the event this information is protected by the Federal Confidentiality of Alcohol and Drug Abuse Patient Records regulations: The Federal rules restrict any use of the information to criminally investigate or prosecute any alcohol or drug abuse patient.[facility] HospitalIn the event this information is protected by the Federal Confidentiality of Alcohol and Drug Abuse Patient Records regulations: The Federal rules restrict any use of the information to criminally investigate or prosecute any alcohol or drug abuse patient.[facility] HospitalIn the event this information is protected by the Federal Confidentiality of Alcohol and Drug Abuse Patient Records regulations: The Federal rules restrict any use of the information to criminally investigate or prosecute any alcohol or drug abuse patient.[facility] HospitalIn the event this information is protected by the Federal Confidentiality of Alcohol and Drug Abuse Patient Records regulations: The Federal rules restrict any use of the information to criminally investigate or prosecute any alcohol or drug abuse patient.[facility] HospitalIn the event this information is protected by the Federal Confidentiality of Alcohol and Drug Abuse Patient Records regulations: The Federal rules restrict any use of the information to criminally investigate or prosecute any alcohol or drug abuse patient.[facility] HospitalIn the event this information is protected by the Federal Confidentiality of Alcohol and Drug Abuse Patient Records regulations: The Federal rules restrict any use of the information to criminally investigate or prosecute any alcohol or drug abuse patient.[facility] HospitalIn the event this information is protected by the Federal Confidentiality of Alcohol and Drug Abuse Patient Records regulations: The Federal rules restrict any use of the information to criminally investigate or prosecute any alcohol or drug abuse patient.[facility] HospitalIn the event this information is protected by the Federal Confidentiality of Alcohol and Drug Abuse Patient Records regulations: The Federal rules restrict any use of the information to criminally investigate or prosecute any alcohol or drug abuse patient.[facility] HospitalIn the event this information is protected by the Federal Confidentiality of Alcohol and Drug Abuse Patient Records regulations: The Federal rules restrict any use of the information to criminally investigate or prosecute any alcohol or drug abuse patient.[facility] HospitalIn the event this information is protected by the Federal Confidentiality of Alcohol and Drug Abuse Patient Records regulations: The Federal rules restrict any use of the information to criminally investigate or prosecute any alcohol or drug abuse patient.[facility] HospitalIn the event this information is protected by the Federal Confidentiality of Alcohol and Drug Abuse Patient Records regulations: The Federal rules restrict any use of the information to criminally investigate or prosecute any alcohol or drug abuse patient.[facility] HospitalIn the event this information is protected by the Federal Confidentiality of Alcohol and Drug Abuse Patient Records regulations: The Federal rules restrict any use of the information to criminally investigate or prosecute any alcohol or drug abuse patient.[facility] HospitalIn the event this information is protected by the Federal Confidentiality of Alcohol and Drug Abuse Patient Records regulations: The Federal rules restrict any use of the information to criminally investigate or prosecute any alcohol or drug abuse patient.[facility] HospitalIn the event this information is protected by the Federal Confidentiality of Alcohol and Drug Abuse Patient Records regulations: The Federal rules restrict any use of the information to criminally investigate or prosecute any alcohol or drug abuse patient.[facility] HospitalIn the event this information is protected by the Federal Confidentiality of Alcohol and Drug Abuse Patient Records regulations: The Federal rules restrict any use of the information to criminally investigate or prosecute any alcohol or drug abuse patient.[facility] HospitalIn the event this information is protected by the Federal Confidentiality of Alcohol and Drug Abuse Patient Records regulations: The Federal rules restrict any use of the information to criminally investigate or prosecute any alcohol or drug abuse patient.[facility] HospitalIn the event this information is protected by the Federal Confidentiality of Alcohol and Drug Abuse Patient Records regulations: The Federal rules restrict any use of the information to criminally investigate or prosecute any alcohol or drug abuse patient.[facility] HospitalIn the event this information is protected by the Federal Confidentiality of Alcohol and Drug Abuse Patient Records regulations: The Federal rules restrict any use of the information to criminally investigate or prosecute any alcohol or drug abuse patient.[facility] HospitalIn the event this information is protected by the Federal Confidentiality of Alcohol and Drug Abuse Patient Records regulations: The Federal rules restrict any use of the information to criminally investigate or prosecute any alcohol or drug abuse patient.[facility] HospitalIn the event this information is protected by the Federal Confidentiality of Alcohol and Drug Abuse Patient Records regulations: The Federal rules restrict any use of the information to criminally investigate or prosecute any alcohol or drug abuse patient.[facility] HospitalIn the event this information is protected by the Federal Confidentiality of Alcohol and Drug Abuse Patient Records regulations: The Federal rules restrict any use of the information to criminally investigate or prosecute any alcohol or drug abuse patient.[facility] HospitalIn the event this information is protected by the Federal Confidentiality of Alcohol and Drug Abuse Patient Records regulations: The Federal rules restrict any use of the information to criminally investigate or prosecute any alcohol or drug abuse patient.[facility] HospitalIn the event this information is protected by the Federal Confidentiality of Alcohol and Drug Abuse Patient Records regulations: The Federal rules restrict any use of the information to criminally investigate or prosecute any alcohol or drug abuse patient.[facility] HospitalIn the event this information is protected by the Federal Confidentiality of Alcohol and Drug Abuse Patient Records regulations: The Federal rules restrict any use of the information to criminally investigate or prosecute any alcohol or drug abuse patient.[facility] HospitalIn the event this information is protected by the Federal Confidentiality of Alcohol and Drug Abuse Patient Records regulations: The Federal rules restrict any use of the information to criminally investigate or prosecute any alcohol or drug abuse patient.[facility] HospitalIn the event this information is protected by the Federal Confidentiality of Alcohol and Drug Abuse Patient Records regulations: The Federal rules restrict any use of the information to criminally investigate or prosecute any alcohol or drug abuse patient.[facility] HospitalIn the event this information is protected by the Federal Confidentiality of Alcohol and Drug Abuse Patient Records regulations: The Federal rules restrict any use of the information to criminally investigate or prosecute any alcohol or drug abuse patient.[facility] HospitalIn the event this information is protected by the Federal Confidentiality of Alcohol and Drug Abuse Patient Records regulations: The Federal rules restrict any use of the information to criminally investigate or prosecute any alcohol or drug abuse patient.[facility] HospitalIn the event this information is protected by the Federal Confidentiality of Alcohol and Drug Abuse Patient Records regulations: The Federal rules restrict any use of the information to criminally investigate or prosecute any alcohol or drug abuse patient.[facility] HospitalIn the event this information is protected by the Federal Confidentiality of Alcohol and Drug Abuse Patient Records regulations: The Federal rules restrict any use of the information to criminally investigate or prosecute any alcohol or drug abuse patient.[facility] HospitalIn the event this information is protected by the Federal Confidentiality of Alcohol and Drug Abuse Patient Records regulations: The Federal rules restrict any use of the information to criminally investigate or prosecute any alcohol or drug abuse patient.[facility] HospitalIn the event this information is protected by the Federal Confidentiality of Alcohol and Drug Abuse Patient Records regulations: The Federal rules restrict any use of the information to criminally investigate or prosecute any alcohol or drug abuse patient.[facility] HospitalIn the event this information is protected by the Federal Confidentiality of Alcohol and Drug Abuse Patient Records regulations: The Federal rules restrict any use of the information to criminally investigate or prosecute any alcohol or drug abuse patient.[facility] HospitalIn the event this information is protected by the Federal Confidentiality of Alcohol and Drug Abuse Patient Records regulations: The Federal rules restrict any use of the information to criminally investigate or prosecute any alcohol or drug abuse patient.[facility] HospitalIn the event this information is protected by the Federal Confidentiality of Alcohol and Drug Abuse Patient Records regulations: The Federal rules restrict any use of the information to criminally investigate or prosecute any alcohol or drug abuse patient.[facility] HospitalIn the event this information is protected by the Federal Confidentiality of Alcohol and Drug Abuse Patient Records regulations: The Federal rules restrict any use of the information to criminally investigate or prosecute any alcohol or drug abuse patient.[facility] HospitalIn the event this information is protected by the Federal Confidentiality of Alcohol and Drug Abuse Patient Records regulations: The Federal rules restrict any use of the information to criminally investigate or prosecute any alcohol or drug abuse patient.[facility] HospitalIn the event this information is protected by the Federal Confidentiality of Alcohol and Drug Abuse Patient Records regulations: The Federal rules restrict any use of the information to criminally investigate or prosecute any alcohol or drug abuse patient.[facility] HospitalIn the event this information is protected by the Federal Confidentiality of Alcohol and Drug Abuse Patient Records regulations: The Federal rules restrict any use of the information to criminally investigate or prosecute any alcohol or drug abuse patient.[facility] HospitalIn the event this information is protected by the Federal Confidentiality of Alcohol and Drug Abuse Patient Records regulations: The Federal rules restrict any use of the information to criminally investigate or prosecute any alcohol or drug abuse patient.[facility] HospitalIn the event this information is protected by the Federal Confidentiality of Alcohol and Drug Abuse Patient Records regulations: The Federal rules restrict any use of the information to criminally investigate or prosecute any alcohol or drug abuse patient.[facility] HospitalIn the event this information is protected by the Federal Confidentiality of Alcohol and Drug Abuse Patient Records regulations: The Federal rules restrict any use of the information to criminally investigate or prosecute any alcohol or drug abuse patient.[facility] the event this information is protected by the Federal Confidentiality of Alcohol and Drug Abuse Patient Records regulations: The Federal rules restrict any use of the information to criminally investigate or prosecute any alcohol or drug abuse patient.[facility] Hospital[facility] the event this information is protected by the Federal Confidentiality of Alcohol and Drug Abuse Patient Records regulations: The Federal rules restrict any use of the information to criminally investigate or prosecute any alcohol or drug abuse patient.[facility] Goals (unrecognized section and content) Goals may be documented in a n alternate sectionGoals may be documented in an alternate sectionGoals may be documented in an alternate sectionGoals may be documented in an alternate sectionGoals may be documented in an alternate sectionGoals may be documented in an alternate sectionGoals may be documented in an alternate sectionGoals may be documented in an alternate sectionGoals may be documented in an alternate sectionGoals may be documented in an alternate sectionGoals may be documented in an alternate sectionGoals may be documented in an alternate sectionGoals may be documented in an alternate sectionGoals may be documented in an alternate sectionGoals may be documented in an alternate section FOR RECORDS PERTAINING TO PATIENTS WHO ARE OR HAVE BEEN ENROLLED IN A CHEMICAL DEPENDENCY/SUBSTANCEABUSE PROGRAM, SOME INFORMATION MAY BE OMITTED. This clinical summary was aggregated from multiple sources. Caution should be exercised in using it in the provision of clinical care. This summary normalizes information from multiple sources, and as a consequence, information in this document may materially change the coding, format and clinical context of patient data. In addition, data may be omitted in some cases. CLINICAL DECISIONS SHOULD BE BASED ON THE PRIMARY CLINICAL RECORDS. [facility]. provides no warranty or guarantee of the accuracy or completeness of information in this document.
[2025-02-12 21:54] VITALS: BP 156/52; PULSE 69; RESP 18; TEMP 36.9; O2SAT 98
[2025-02-12 22:13] VITALS: BMI 32.8
[2025-02-12 22:31] LABS: Hematocrit 33.9 % (37-47); Hemoglobin 10.7 g/dL (12.0-15.0)
[2025-02-12] MEDS: 0.9% Normal Saline (1000mL) 1,000 ML 75 ML IV (22:38)
[2025-02-12] MEDS: Phytonadione (Vit K) 5 MG in 0.9% Normal Saline (50mL Bag) 50 ML 150 MG IV (22:44)
[2025-02-12 22:49] VITALS: BP 156/52; PULSE 69
[2025-02-12] MEDS: Pantoprazole Sodium 80 MG in 0.9% Normal Saline (100mL Bag) 80 ML 10 MG CONT INF (23:18)
--- NOTE | 2025-02-13 02:15 | PCM.HOSP.N ---
Hospitalist Note Most recent repeat Hgb 9.8. Patient still extremely resistant to FFP consideration. Given VS stable will continue to monitor and plan repeat AM INR. Had discussed with patient on admission this if the repeat INR was not decreased to the point desired FFP would need to be considered. direct care staffer has also mentioned and she is extremely resistant.
[2025-02-13 02:17] LABS: Hematocrit 30.8 % (37-47); Hemoglobin 9.8 g/dL (12.0-15.0)
[2025-02-13 03:48] VITALS: BP 125/48; PULSE 64; RESP 18; TEMP 36.7; O2SAT 97
[2025-02-13] MEDS: 0.9% Saline Lock 10 ML Syringe IV (04:04)
[2025-02-13 04:09] VITALS: BMI 32.8
[2025-02-13 07:05] LABS: Prothrombin Time (Protime)PT. 23.0 SECONDS (11.7-14.9)
[2025-02-13 07:06] LABS: Hematocrit 32.7 % (37-47); Hemoglobin 10.2 g/dL (12.0-15.0); Immature Granulocytes Count 0.010 X10^3/uL (0.0-0.0); Mean Corp Hgb Conc 31.2 g/dL (32-36); Mean Corpuscular Volume 82.6 fL (81-99); Mean Platelet Vol. 12.1 fl (6.2-12.0); NRBC Flagged by Analyzer 0 % (0-5); Platelet Count 181 K/mm3 (150-450); RBC Distribution Width CV 15.0 % (11.6-14.6); RBC Distribution Width SD 45.5 fl (35.1-43.9); Red Blood Count 3.96 M/mm3 (4.2-5.4); White Blood Count 6.1 K/mm3 (4.4-11.0)
[2025-02-13 07:19] LABS: AST(SGOT) 33 U/L (<=31); Alanine Aminotransfer ALT/SGPT 20 U/L (<=34); Albumin, Serum 3.5 g/dL (3.4-4.8); Alkaline Phosphatase 82 U/L (35-104); Anion Gap 11 (5-15); BUN 17 mg/dL (4-19); BUN/Creat Ratio 15.0 RATIO (10-20); Calcium,Total 9.0 mg/dL (7.6-11.0); Carbon Dioxide 21.4 mmol/L (21.0-32.0); Chloride 109 mmol/L (98-108); Estimated Creatinine Clearance 46.65 ml/min (50-250); Globulin 3.2 g/dL (2.2-4.2); Glucose 114 mg/dL (70-99); Potassium 4.2 mmol/L (3.3-5.1)
[2025-02-13] MEDS: Pantoprazole Sodium 80 MG in 0.9% Normal Saline (100mL Bag) 80 ML 10 MG CONT INF ×2 (08:45→18:18)
[2025-02-13 09:49] VITALS: BP 116/54; PULSE 61; RESP 16; TEMP 36.8; O2SAT 98
--- NOTE | 2025-02-13 10:53 | PCM.PN.HOSP ---
Subjective Subjective No issues overnight Objective Data Objective Data Vital Signs: Vital Signs Temp Pulse Resp BP Pulse Ox O2 Del Method 98.3 F 61 16 116/54 L 98 Room Air 02/13/25 09:49 02/13/25 09:49 02/13/25 09:49 02/13/25 09:49 02/13/25 09:49 02/13/25 09:50 Oxygen Delivery Method Room Air Weight: 196 lb 13.965 oz Body Mass Index (BMI) 32.8 Intake & Output: Intake and Output for Last 24 Hours 02/12/25 02/13/25 02/14/25 03:59 03:59 03:59 Intake Total 400.5 / 400.5 94.5 / 94.5 Balance 400.5 / 400.5 94.5 / 94.5 Lab / Micro Data 02/13/25 06:18 02/13/25 06:18 Labs: Laboratory Results - last 24 hr 02/12/25 18:45: WBC 8.6, RBC 4.42, Hgb 11.5 L, Hct 36.9 L, MCV 83.5, MCH 26.0 L, MCHC 31.2 L, RDW Std Deviation 45.4 H, RDW Coeff of Rukhsana 15.0 H, Plt Count 241, MPV 11.9, Immature Gran % (Auto) 0.300, Neut % (Auto) 61.7, Lymph % (Auto) 28.4, [place] % (Auto) 7.0, Eos % (Auto) 1.7, Baso % (Auto) 0.9, Absolute Neuts (auto) 5.3, Absolute Lymphs (auto) 2.45, Nucleated RBC % 0, PT 28.2 H, INR 2.6, APTT 42.0 H, Sodium 138, Potassium 4.2, Chloride 103, Carbon Dioxide 23.5, Anion Gap 11, BUN 20 H, Creatinine 1.28 H, Estim Creat Clear Calc 41.45 L, Est GFR (MDRD) Non-Af 43 L, BUN/Creatinine Ratio 15.9, Glucose 231 H, Calcium 9.6, Total Bilirubin 0.72, AST 41 H, ALT 22, Alkaline Phosphatase 96, Total Protein 7.6, Albumin 4.0, Globulin 3.6, Albumin/Globulin Ratio 1.1, Lipase 90 H, Urine Color Yellow, Urine Clarity Clear, Urine pH 6.0, Ur Specific [place] 1.015, Urine Protein 15 H, Urine Glucose (UA) Normal, Urine Ketones Negative, Urine Occult Blood 10 H, Urine Nitrite Negative, Urine Bilirubin Negative, Urine Urobilinogen Normal, Ur Leukocyte Esterase 100 H, Urine RBC 0-5 SEEN, Urine WBC 5-10 SEEN, Ur Squamous Epith Cells 0-5 SEEN, Urine Bacteria RARE, Urine Mucus 0 SEEN, Blood Type O POSITIVE, Antibody Screen POSITIVE H, Antibody Identification ANTI-E, Antigen Identification E ANTIGEN - NEGATIVE 02/12/25 22:01: POC Glucose 133 H 02/12/25 22:16: Hgb 10.7 L, Hct 33.9 L 02/12/25 23:25: POC Glucose 134 H 02/13/25 02:12: Hgb 9.8 L, Hct 30.8 L 02/13/25 06:08: POC Glucose 109 H 02/13/25 06:18: WBC 6.1, RBC 3.96 L, Hgb 10.2 L, Hct 32.7 L, MCV 82.6, MCH 25.8 L, MCHC 31.2 L, RDW Std Deviation 45.5 H, RDW Coeff of Rukhsana 15.0 H, Plt Count 181, MPV 12.1 H, Immature Gran % (Auto) 0.200, Neut % (Auto) 57.4, Lymph % (Auto) 31.8, [place] % (Auto) 8.2, Eos % (Auto) 1.6, Baso % (Auto) 0.8, Absolute Neuts (auto) 3.5, Absolute Lymphs (auto) 1.93, Nucleated RBC % 0, PT 23.0 H, INR 2.0, Sodium 141, Potassium 4.2, Chloride 109 H, Carbon Dioxide 21.4, Anion Gap 11, BUN 17, Creatinine 1.11, Estim Creat Clear Calc 46.65 L, Est GFR (MDRD) Non-Af 52 L, BUN/Creatinine Ratio 15.0, Glucose 114 H, Calcium 9.0, Total Bilirubin 0.41, AST 33 H, ALT 20, Alkaline Phosphatase 82, Total Protein 6.6, Albumin 3.5, Globulin 3.2, Albumin/Globulin Ratio 1.1 Micro: Microbiology 02/12/25 18:54 Stool Stool Occult Blood (MANDY) - Final Occult Blood Positive Radiography Diagnostic Testing: Radiology Impression Abdomen/Pelvis CT 02/12/25 18:20 IMPRESSION: 1. No acute or active inflammatory intra-abdominal pathology. 2. Hepatic cirrhosis and mild splenomegaly. 3. Ancillary findings noted above. Reading Location: [facility] Physical Exam Narrative General: Alert, Oriented x3, Cooperative, No apparent distress HEENT: Atraumatic, PERRLA, EOMI, Normocephalic Oral: Moist Mucosa Neck: Supple, No JVD Lungs: Diminished, Normal air movement, No rhonchi, No wheeze, No rales Cardiovascular: Regular rate, Regular Rhythm, Normal S1, Normal S2, No murmurs Abdomen: Soft, left lower quadrant tender, Non-Distended, No Hepato-splenomegaly Extremities: Edema, Capillary Refill Less than 3 Seconds Skin: No rashes, No breakdown Musculoskeletal: No Tenderness to Palpation of Joints or Extremities Neurological: No focal neurological deficits, moves all extremities Psych/Mental Status: Normal Affect, Appropriate Assessment & Plan Assessment/Plan (1) LUQ pain: PLAN: Plan 1. Left lower quadrant pain possible GI bleed/chronic hepatic cirrhosis/GERD ? Hemoglobin is unremarkable ? CT of the abdomen pelvis was unremarkable ? Continue with Protonix ? She was given a dose of vitamin K to lower her INR with the concern of possible GI bleed ? INR today is 2.0 ? Continue with Rocephin in the setting of her history of cirrhosis with her belly pain 2. Essential HTN/HLD/complete heart block/paroxysmal A-fib/history of CVA ? Continue with her home blood pressure medications ? Continue with her Crestor ? She does have a pacemaker in place ? Will hold her Coumadin 3. DM2 with CKD 3 ? Insulin ? Accu-Cheks ? Will monitor make adjustments as necessary ? Renal functions at baseline in the setting of right partial nephrectomy for right renal carcinoma 4. Asthma with allergies ? No exacerbation ? Continue with her home meds DVT: SCDs Charges/Coding Visit Charges Inpatient E&M: 66169 Subs Hosp L2
--- NOTE | 2025-02-13 14:34 | CHAPLAIN ---
Type of Pastoral Visit ___ Initial Visit ___ Follow-up Visit ___ On-call Visit ___ General Patient Visit ___ Spiritual Assessment ___ Family Conference ___ Bereavement ___ Rapid Response ___ Code Blue ___ Other (describe below) Pastoral Care Referral From ___ Patient ___ Family ___ Nurse ___ Physician ___ Benzol Still Operator ___ Dining Car Conductor ___ Other (describe below) Sacrament/Intervention ___ Active listening ___ Anointing ___ Restorationism ___ Bereavement ___ Communion ___ Yolis exploration ___ ___ Life review ___ Prayer ___ Reconciliation ___ Sacrament of Sick ___ Supportive presence ___ Wedding ___ Other (describe below) Pastoral Comments patient was sound asleep and was not disturbed
--- NOTE | 2025-02-13 15:44 | CASEMGMT ---
WEBBER Met with patient to complete WEBBER form. WEBBER form and its content were verbally explained and patient's questions were answered to the best of my ability.? Patient voiced understanding and signed WEBBER form.? Patient provided a copy of signed WEBBER form and original placed in patient's chart.? Patient had no further questions. Darleen Parker, Discharge Planning Asst
[2025-02-13 16:00] VITALS: BP 122/60; PULSE 66; RESP 18; TEMP 36.8; O2SAT 99
--- NOTE | 2025-02-13 17:53 | CON.PCM.GI_ITS ---
HPI Consult Data Date of Consult: 02/13/25 HPI Narrative Reason for Consultation: GI bleed HPI Narrative: The patient is a 74-year-old female who presented to the Emergency Department (ED) with a chief complaint of melanotic stool and left lower quadrant (LLQ) pain. * Patient reports one episode of black, watery stool this evening. She attributes this to laxative use following constipation. She also notes some bright red blood per rectum (BRBPR), which she attributes to her known thrombosed hemorrhoids. She denies recent use of iron supplements or bismuth subsalicylate (Pepto-Bismol). She endorses lightheadedness and nausea, both of which she states are chronic and unchanged from baseline. She reports chronic, unchanged LLQ pain for months. She denies fever, chills, vomiting, dysuria, hematuria, chest pain, or shortness of breath. * Past Medical History (PMH): * Duodenal ulcer * Cirrhosis * Atrial fibrillation (A-fib) on warfarin * Thrombosed hemorrhoids * Type 2 Diabetes * Hypertension * Hyperlipidemia * Chronic Kidney Disease (CKD) Stage III * Obesity * Medications:?Warfarin (among others for chronic conditions). [facility] Medical History Pacemaker Obesity (BMI 30-39.9) Cancer of kidney Cirrhosis of liver not due to alcohol Goiter Depression History of renal carcinoma Stage 3a chronic kidney disease (CKD) Bilateral carotid artery stenosis (10/27/20) Complete heart block Thrombosed external hemorrhoid Osteoporosis Cancer Irregular heart beat DVT (deep venous thrombosis) TIA (transient ischemic attack) Rectal pain Chronic anemia Obesity PAF (paroxysmal atrial fibrillation) Asthma Diabetes Hemorrhoids Arthritis Hypertension VTE (venous thromboembolism) CVA (cerebral vascular accident) PAF (paroxysmal atrial fibrillation) HLD (hyperlipidemia) Home Medications ?Medication ?Instructions ?Recorded ?Last Taken ?Type loratadine 10 mg tablet 10 mg PO QHS allergies 30 da ys 07/23/16 02/11/25 Rx hydrocortisone 2.5 % topical cream 1 applic CA QD-BID PRN hemorrhoids 02/04/23 02/05/25 History with perineal applicator (Anusol-) metoprolol tartrate 50 mg tablet 50 mg PO BID heart #1 80 tabs 02/24/24 02/12/25 Rx glipizide 10 mg tablet, extended 10 mg PO BID blood reardon gar 04/18/24 02/12/25 History release 24 hr warfarin 2.5 mg tablet 2.5 mg PO MOTUWETH afib 05/0502/12/25 History warfarin 5 mg tablet 5 mg PO SUMOFRSA afib 02/11/25 History losartan 25 mg tablet 12.5 mg (1/2 x 25 mg) PO ORION LY #45 05/21/24 02/11/25 Rx tabs acetaminophen 500 mg capsule 500 mg PO Q6H PRN pain 02/08/25 History docusate sodium 100 mg capsule 100 mg PO DAILY stool s oftner 02/12/25 02/11/25 History (Colace) fluticasone propionate 50 1 spray intranasal DAILY all ergies 02/12/25 02/12/25 History mcg/actuation nasal spray,suspension multivitamin (Daily Multi-Vitamin 1 tab PO DAILY suppl ement 02/12/25 02/12/25 History tablet) ondansetron 4 mg disintegrating 4 mg PO Q8H PRN Nausea 02/12/25 02/12/25 History tablet pantoprazole 40 mg tablet,delayed 40 mg PO BID gerd 02/12/25 History release rosuvastatin 20 mg tablet 20 mg PO QHS cholesterol 11/2902/11/25 History Allergy/AdvReac Type Severity Reaction Status Date / Time simvastatin Allergy Severe Unknown Verified 02/12/25 17:55 etodolac AdvReac Intermediate GI upset Verified 02/12/25 17:55 gabapentin AdvReac Intermediate dizziness Verified 02/12/25 17:55 NSAIDS (Non-Steroidal AdvReac Intermediate GI upset Verified 02/12/25 17:55 Anti-Inflamma sulfamethoxazole AdvReac Intermediate Sulfa Verified 02/12/25 17:55 drugs GI upset sulfametrole AdvReac Intermediate GI upset Verified 02/12/25 17:55 valdecoxib (From Bextra) AdvReac Intermediate GI upset Verified 02/12/25 17:55 atorvastatin AdvReac Unknown unknown Verified 02/12/25 17:55 codeine AdvReac Unknown unknown Verified 02/12/25 17:55 guaifenesin (From Entex [place]) AdvReac Unknown unknown Verified 02/12/25 17:55 hydrocodone AdvReac Unknown unknown Verified 02/12/25 17:55 naproxen (From Naprosyn) AdvReac Unknown unknown Verified 02/12/25 17:55 phenylephrine (From Entex [place]) AdvReac Unknown unknown Verified 02/12/25 17:55 phenylpropanolamine (From AdvReac Unknown unknown Verified 02/12/25 17:55 Entex [place]) pravastatin AdvReac Unknown unknown Verified 02/12/25 17:55 quinapril (From Accupril) AdvReac Unknown Unknown Verified 02/12/25 17:55 rofecoxib (From Vioxx) AdvReac Unknown unknown Verified 02/12/25 17:55 Sulfa (Sulfonamide AdvReac Unknown Diarrhea Verified 02/12/25 17:55 Antibiotics) tramadol AdvReac Unknown unknown Verified 02/12/25 17:55 celecoxib (From Celebrex) AdvReac Nausea/Vom/ Verified 02/12/25 17:55 Diarrhea fluoxetine HCl (From Prozac) AdvReac Other Verified 02/12/25 17:55 isosorbide AdvReac Other Verified 02/12/25 17:55 metformin AdvReac Nausea/Vom/ Verified 02/12/25 17:55 Diarrhea Family History Mother CVA (cerebral vascular accident) Diabetes Heart disease Father CVA (cerebral vascular accident) Diabetes Heart disease Other penitentiary (current) use of 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 Surgical History S/P placement of cardiac pacemaker History of incision and drainage H/O partial nephrectomy History of hysterectomy History of knee replacement History of cholecystectomy History of shoulder surgery History of appendectomy Social History household members: spouse Smoking Status: Never smoker alcohol intake: never substance use type: does not use additional social history: Ambulates with a wheeled walker ROS Constitutional Constitutional: Denies fatigue, fever(s), poor appetite, weight gain or weight loss Gastrointestinal Gastrointestinal: Denies belching, bloating, change in bowel habits, change in stool character, chewing difficulty, coffee ground emesis, constipation, cramping, diarrhea, dyspepsia, dysphagia, early satiety, excessive flatus, fecal incontinence, heartburn, hematemesis, hematochezia, hemorrhoids, loose stools, melena, nausea, odynophagia, rectal bleeding, tenesmus, vomiting or weight changes Physical Exam Const alert, oriented x3, no apparent distress and healthy appearing General Appearance: cooperative GI normal to inspection, nondistended, normoactive bowel sounds, soft to palpation, non-tender and non-distended Percussion: normal to percussion Rectal Exam: deferred Lab / Micro Data 02/13/25 06:18 02/13/25 06:18 Labs: Laboratory Results - last 24 hr 02/12/25 18:45: WBC 8.6, RBC 4.42, Hgb 11.5 L, Hct 36.9 L, MCV 83.5, MCH 26.0 L, MCHC 31.2 L, RDW Std Deviation 45.4 H, RDW Coeff of Rukhsana 15.0 H, Plt Count 241, MPV 11.9, Immature Gran % (Auto) 0.300, Neut % (Auto) 61.7, Lymph % (Auto) 28.4, [place] % (Auto) 7.0, Eos % (Auto) 1.7, Baso % (Auto) 0.9, Absolute Neuts (auto) 5.3, Absolute Lymphs (auto) 2.45, Nucleated RBC % 0, PT 28.2 H, INR 2.6, APTT 42.0 H, Sodium 138, Potassium 4.2, Chloride 103, Carbon Dioxide 23.5, Anion Gap 11, BUN 20 H, Creatinine 1.28 H, Estim Creat Clear Calc 41.45 L, Est GFR (MDRD) Non-Af 43 L, BUN/Creatinine Ratio 15.9, Glucose 231 H, Calcium 9.6, Total Bilirubin 0.72, AST 41 H, ALT 22, Alkaline Phosphatase 96, Total Protein 7.6, Albumin 4.0, Globulin 3.6, Albumin/Globulin Ratio 1.1, Lipase 90 H, Urine Color Yellow, Urine Clarity Clear, Urine pH 6.0, Ur Specific [place] 1.015, Urine Protein 15 H, Urine Glucose (UA) Normal, Urine Ketones Negative, Urine Occult Blood 10 H, Urine Nitrite Negative, Urine Bilirubin Negative, Urine Urobilinogen Normal, Ur Leukocyte Esterase 100 H, Urine RBC 0-5 SEEN, Urine WBC 5-10 SEEN, Ur Squamous Epith Cells 0-5 SEEN, Urine Bacteria RARE, Urine Mucus 0 SEEN, Blood Type O POSITIVE, Antibody Screen POSITIVE H, Antibody Identification ANTI-E, Antigen Identification E ANTIGEN - NEGATIVE 02/12/25 22:01: POC Glucose 133 H 02/12/25 22:16: Hgb 10.7 L, Hct 33.9 L 02/12/25 23:25: POC Glucose 134 H 02/13/25 02:12: Hgb 9.8 L, Hct 30.8 L 02/13/25 06:08: POC Glucose 109 H 02/13/25 06:18: WBC 6.1, RBC 3.96 L, Hgb 10.2 L, Hct 32.7 L, MCV 82.6, MCH 25.8 L, MCHC 31.2 L, RDW Std Deviation 45.5 H, RDW Coeff of Rukhsana 15.0 H, Plt Count 181, MPV 12.1 H, Immature Gran % (Auto) 0.200, Neut % (Auto) 57.4, Lymph % (Auto) 31.8, [place] % (Auto) 8.2, Eos % (Auto) 1.6, Baso % (Auto) 0.8, Absolute Neuts (auto) 3.5, Absolute Lymphs (auto) 1.93, Nucleated RBC % 0, PT 23.0 H, INR 2.0, Sodium 141, Potassium 4.2, Chloride 109 H, Carbon Dioxide 21.4, Anion Gap 11, BUN 17, Creatinine 1.11, Estim Creat Clear Calc 46.65 L, Est GFR (MDRD) Non- Af 52 L, BUN/Creatinine Ratio 15.0, Glucose 114 H, Calcium 9.0, Total Bilirubin 0.41, AST 33 H, ALT 20, Alkaline Phosphatase 82, Total Protein 6.6, Albumin 3.5, Globulin 3.2, Albumin/Globulin Ratio 1.1 02/13/25 11:01: POC Glucose 128 H 02/13/25 16:23: POC Glucose 161 H Micro: Microbiology 02/12/25 18:54 Stool Stool Occult Blood (MANDY) - Final Occult Blood Positive Imaging Radiology Impression Abdomen/Pelvis CT 02/12/25 18:20 IMPRESSION: 1. No acute or active inflammatory intra-abdominal pathology. 2. Hepatic cirrhosis and mild splenomegaly. 3. Ancillary findings noted above. Reading Location: [id number] Assessment & Plan Assessment/Plan (1) Rectal pain: (2) Acute lower gastrointestinal bleeding: (3) Cirrhosis of liver not due to alcohol: PLAN: Assessment The patient is a 74-year-old female with multiple comorbidities presenting with acute gastrointestinal bleeding (GIB) manifestations (melena, BRBPR, Hgb decline) while on anticoagulation therapy (warfarin).? * Acute Upper GI Bleed vs. Lower GI Bleed:?The presentation of melanotic stool is highly suggestive of an upper GI bleed (UGIB), especially given her history of duodenal ulcers and cirrhosis. The concurrent BRBPR may be secondary to a rapid UGIB or her hemorrhoids. The drop in hemoglobin confirms active bleeding. * Anticoagulation Complication:?The patient's supratherapeutic INR (2.6) upon arrival indicates that her bleeding is likely exacerbated by anticoagulation. The INR has been corrected to a safer level (2.0) with Vitamin K. * Chronic LLQ Pain:?The chronic LLQ pain appears unrelated to the acute bleed as it is described as unchanged for months. Potential etiologies could be diverticulosis, though it has not been investigated here. * Differential Diagnoses for GIB: * Peptic Ulcer Disease (PUD), especially given history of duodenal ulcer. * Gastritis/Esophagitis. * Esophageal or Gastric Varices (given cirrhosis history). * Diverticular bleeding (less likely with melena presentation). * Ischemic colitis.? Plan * Diagnostics: * Complete blood count (CBC) with serial Hgb checks (q6h or more frequent if unstable). * Comprehensive metabolic panel (CMP) focusing on renal function (CKD stage III) and liver function (cirrhosis). * Type & Crossmatch for potential transfusion. * STAT EGD (Esophagogastroduodenoscopy) for definitive diagnosis and potential therapeutic intervention of UGIB source. * Therapeutics: * IV fluid resuscitation. * Proton Pump Inhibitor (PPI) therapy initiated . * Transfuse Packed Red Blood Cells (PRBCs) as needed based on Hgb levels and clinical stability (transfusion threshold typically <7 g/dL in stable patients, possibly higher given comorbidities). * Continue INR management; hold warfarin temporarily. Portions of this note were generated using voice recognition software ([employer]). I have reviewed the contents and every effort has been made to ensure accuracy; however, inadvertent errors in grammar, spelling, punctuation, or word choice may occur, that were not noted before signing the document and should not alter the intended clinical meaning. Charges/Coding Visit Charges Inpatient E&M: 01425 Init Hosp L3
[2025-02-13 18:28] VITALS: BP 121/56; PULSE 58; RESP 16; TEMP 37.2; O2SAT 95
[2025-02-13 22:25] VITALS: BP 152/81; PULSE 66; RESP 16; TEMP 36.8; O2SAT 96
[2025-02-13 22:30] VITALS: BP 152/81; PULSE 66
[2025-02-13] MEDS: Ceftriaxone 2 GM in 0.9% Normal Saline (50mL MB+) 50 ML IV (22:30)
[2025-02-14] VITALS (14 sets, daily range): BP systolic 112–152; BP diastolic 51–90; PULSE 59–76; RESP 16–20; TEMP 36.3–36.8; O2SAT 94–97; BMI 32.2
[2025-02-14] MEDS: Pantoprazole Sodium 80 MG in 0.9% Normal Saline (100mL Bag) 80 ML 10 MG CONT INF ×2 (04:55→18:41)
--- NOTE | 2025-02-14 05:55 | EKG12_ITS ---
Test Reason : AM EKG Blood Pressure : */* mmHG Vent. Rate : 60 BPM Atrial Rate : 60 BPM P-R Int : * ms QRS Dur : 178 ms QT Int : 516 ms P-R-T Axes : * -72 87 degrees QTcB Int : 516 ms AV dual-paced rhythm Abnormal ECG When compared with ECG of 02-Jun-2024 05:05, Premature ventricular complexes are no longer Present Vent. rate has decreased by 89 bpm Confirmed by BARBARA BRYANT, RADHA ([id number]), video effects editor ADA LINTON ([id number]) on 02/18/2025 6:37:23 AM Referred By: ABRIL Confirmed By: RADHA JIMENEZ MD
[2025-02-14 06:24] LABS: Hematocrit 31.4 % (37-47); Hemoglobin 10.2 g/dL (12.0-15.0); Immature Granulocytes Count 0.010 X10^3/uL (0.0-0.0); Mean Corp Hgb Conc 32.5 g/dL (32-36); Mean Corpuscular Volume 82.0 fL (81-99); Mean Platelet Vol. 11.4 fl (6.2-12.0); NRBC Flagged by Analyzer 0 % (0-5); Platelet Count 169 K/mm3 (150-450); RBC Distribution Width CV 14.9 % (11.6-14.6); RBC Distribution Width SD 45.1 fl (35.1-43.9); Red Blood Count 3.83 M/mm3 (4.2-5.4); White Blood Count 5.5 K/mm3 (4.4-11.0)
[2025-02-14 06:53] LABS: Prothrombin Time (Protime)PT. 17.3 SECONDS (11.7-14.9)
[2025-02-14 06:54] LABS: Partial Thromboplast Time 33.4 Seconds (24.1-36.2)
[2025-02-14 07:01] LABS: AST(SGOT) 39 U/L (<=31); Alanine Aminotransfer ALT/SGPT 18 U/L (<=34); Albumin, Serum 3.6 g/dL (3.4-4.8); Alkaline Phosphatase 82 U/L (35-104); Anion Gap 12 (5-15); BUN 12 mg/dL (4-19); BUN/Creat Ratio 11.1 RATIO (10-20); Calcium,Total 9.4 mg/dL (7.6-11.0); Carbon Dioxide 21.5 mmol/L (21.0-32.0); Chloride 107 mmol/L (98-108); Estimated Creatinine Clearance 46.64 ml/min (50-250); Globulin 3.1 g/dL (2.2-4.2); Glucose 108 mg/dL (70-99); Potassium 4.0 mmol/L (3.3-5.1)
[2025-02-14] MEDS: Fluticasone 0.05% 1 SPRAY NASAL.SRY NASAL (07:20)
--- NOTE | 2025-02-14 12:30 | EGD_PTH ---
PATIENT: SVEN ALEJO LOC: [facility] U#:[id number] AGE/SX: 74/F ROOM: [facility] [place] RE02/12/[address]: Dr. Madhav Keene MD : [id number] BED: 1 DIS: 02/15/2025 SPEC #: [id number] RECD: 02/15/25 07:12 STATUS: ANAYELI DYSONDesiree #: [id number] BRANDON: 02/14/25 12:[address]: Omer Jane DEPT: SURGICAL PATHOLOGY RECD BY: Roderick Perez ENTERED: 02/15/25 10:57 SP TYPE: EGD BIOPSY OTHR DR: MD Dr. Alexys Blake MD Dr. Nicholas F Kotsonis, MD Dr. Prakash Chand, MD Heather Evans, NP-C Bonnie De Jesus NP-C LORI Lemus Tissues: A - Gastric mucous membrane Procedures: Surgery Specimen Level IV HEADER OPERATION: EGD with biopsies PRE-OP DIAGNOSIS: Gastrointestinal bleeding, cirrhosis of liver not due to alcohol TISSUE SUBMITTED: A- Gastric polyp biopsy x2 MICROSCOPIC DIAGNOSIS A. Stomach, polyp x2, biopsy: - Hyperplastic polyp (two fragments). - Oxyntic mucosa with foveolar hyperplasia. (one fragment). MICROSCOPIC DESCRIPTION Slides are reviewed. GROSS DESCRIPTION A. Received in fixative is one container labeled with the patient's name and designated Gastric polyp biopsy x2. The specimen consists of three irregular fragments of florence tissue that measure 0.3 to 0.5cm. The specimen is totally submitted in one cassette. SD 02/15/2025 CPT:22486
--- NOTE | 2025-02-14 14:22 | PCM.PN.HOSP ---
Subjective Subjective Doing well, no issues overnight. Hemoglobin stabilized Objective Data Objective Data Vital Signs: Vital Signs Temp Pulse Resp BP Pulse Ox O2 Del Method 98 F 60 16 128/51 H 96 Room Air 02/14/25 11:18 02/14/25 11:18 02/14/25 11:18 02/14/25 11:18 02/14/25 11:18 02/14/25 13:33 Oxygen Delivery Method Room Air Weight: 193 lb 5.526 oz Body Mass Index (BMI) 32.2 Intake & Output: Intake and Output for Last 24 Hours 02/13/25 02/14/25 02/15/25 03:59 03:59 03:59 Intake Total 400.5 / 400.5 1440.0 / 1440.0 100 / 100 Balance 400.5 / 400.5 1440.0 / 1440.0 100 / 100 Lab / Micro Data 02/14/25 06:04 02/14/25 06:04 Labs: Laboratory Results - last 24 hr 02/13/25 16:23: POC Glucose 161 H 02/14/25 00:11: POC Glucose 96 02/14/25 05:53: POC Glucose 105 02/14/25 06:04: WBC 5.5, RBC 3.83 L, Hgb 10.2 L, Hct 31.4 L, MCV 82.0, MCH 26.6 L, MCHC 32.5, RDW Std Deviation 45.1 H, RDW Coeff of Rukhsana 14.9 H, Plt Count 169, MPV 11.4, Immature Gran % (Auto) 0.200, Neut % (Auto) 52.7, Lymph % (Auto) 36.2, [place] % (Auto) 8.0, Eos % (Auto) 2.0, Baso % (Auto) 0.9, Absolute Neuts (auto) 2.9, Absolute Lymphs (auto) 1.99, Nucleated RBC % 0, PT 17.3 H, INR 1.4, APTT 33.4, Sodium 140, Potassium 4.0, Chloride 107, Carbon Dioxide 21.5, Anion Gap 12, BUN 12, Creatinine 1.10, Estim Creat Clear Calc 46.64 L, Est GFR (MDRD) Non-Af 52 L, BUN/Creatinine Ratio 11.1, Glucose 108 H, Calcium 9.4, Total Bilirubin 0.56, AST 39 H, ALT 18, Alkaline Phosphatase 82, Total Protein 6.7, Albumin 3.6, Globulin 3.1, Albumin/Globulin Ratio 1.1 02/14/25 11:11: POC Glucose 146 H Micro: Microbiology 02/12/25 18:54 Stool Stool Occult Blood (MANDY) - Final Occult Blood Positive Physical Exam Narrative General: Alert, Oriented x3, Cooperative, No apparent distress HEENT: Atraumatic, PERRLA, EOMI, Normocephalic Oral: Moist Mucosa Neck: Supple, No JVD Lungs: Diminished, Normal air movement, No rhonchi, No wheeze, No rales Cardiovascular: Regular rate, Regular Rhythm, Normal S1, Normal S2, No murmurs Abdomen: Soft, left lower quadrant tender, Non-Distended, No Hepato-splenomegaly Extremities: Edema, Capillary Refill Less than 3 Seconds Skin: No rashes, No breakdown Musculoskeletal: No Tenderness to Palpation of Joints or Extremities Neurological: No focal neurological deficits, moves all extremities Psych/Mental Status: Normal Affect, Appropriate Assessment & Plan Assessment/Plan (1) LUQ pain: PLAN: Plan 1. Left lower quadrant pain possible GI bleed/chronic hepatic cirrhosis/GERD ? Hemoglobin is unremarkable ? CT of the abdomen pelvis was unremarkable ? Continue with Protonix ? She was given a dose of vitamin K to lower her INR with the concern of possible GI bleed ? INR today is 1.4 ? Continue with Rocephin in the setting of her history of cirrhosis with her belly pain ? Plan for EGD appreciate GIs assistance 2. Essential HTN/HLD/complete heart block/paroxysmal A-fib/history of CVA ? Continue with her home blood pressure medications ? Continue with her Crestor ? She does have a pacemaker in place ? Will hold her Coumadin 3. DM2 with CKD 3 ? Insulin ? Accu-Cheks ? Will monitor make adjustments as necessary ? Renal functions at baseline in the setting of right partial nephrectomy for right renal carcinoma 4. Asthma with allergies ? No exacerbation ? Continue with her home meds DVT: SCDs Charges/Coding Visit Charges Inpatient E&M: 65670 Subs Hosp L2
--- NOTE | 2025-02-14 15:55 | NURSING ---
pt to endo
[2025-02-14] MEDS: Lactated Ringers 1,000 ML 15 ML IV (16:00)
--- NOTE | 2025-02-14 16:29 | PCM.PRE.AN2 ---
ASA Classification* ASA Classification ASA Classification: 3 Assessment & Plan Anesthesia* Anesthesia Assessment Anesthesia Assessment: Discussed sedation and/or anesthesia options, risks, benefits, and alternatives with patient/parents/legal guardian/POA. Questions invited. The patient/parents/legal guardian/POA seems to understand and agrees to proceed with anesthesia plan. Reviewed the physical assessment, medical history, allergy history and patient home medications list prior to surgery/procedure/anesthetic and documented any changes. Performed airway and anesthesia risk assessments. Anesthesia Type Anesthesia Type: MAC History Source History Obtained from:: Patient and Chart Anesthesia Focused Assessment* Temperature: 98 F Pulse Rate: 66 Blood Pressure: 138/52 Respiratory Rate: 16 Pulse Ox: 94 Oxygen Delivery Method: Room Air Airway Assessment Mouth opens: >3 cm Mallampati Score: III Teeth Condition: Missing (Patient is missing multiple teeth. Remaining teeth are tight.) Neck Range of motion (ROM): Limited ROM (Somewhat Decreased) Labs Anesthesia Preop lab: CBC WBC, (4.4-11.0) 5.5 K/mm3 Today, 06:04 RBC, (4.2-5.4) 3.83 M/mm3 L Today, 06:04 Hgb, (12.0-15.0) 10.2 g/dL L Today, 06:04 Hct, (37-47) 31.4 % L Today, 06:04 Plt Count, (150-450) 169 K/mm3 Today, 06:04 CHEMISTRY Potassium, (3.3-5.1) 4.0 mmol/L Today, 06:04 Sodium, (133-145) 140 mmol/L Today, 06:04 Magnesium, (1.5-2.2) 1.9 mg/dL 06/05/24, 05:59 Phosphorus, (2.7-4.5) 3.4 mg/dL 06/05/24, 05:59 BUN, (4-19) 12 mg/dL Today, 06:04 Creatinine, (0.70-1.20) 1.10 mg/dL Today, 06:04 Glucose, (70-99) 108 mg/dL H Today, 06:04 POC Glucose, (74-106) 146 mg/dL H Today, 11:11 TSH, (0.300-4.200) 0.817 uIU/mL 09/12/24, 09:20 COAG PT, (11.7-14.9) 17.3 SECONDS H Today, 06:04 INR 2.5 06/25/24, 12:00 Pre-Assessment Diagnosis/Proposed Procedure Planned Operative Procedure(s): EGD Anesthesia History Anesthesia History - baling machine tender: Anesthesia History - baling machine tender Hx Hospitalization Yes: 06/2107/29/23 12:32 Any Problems With Anesthesia slow to wake up. 02/14/25 04:20 Cholinesterase deficiency No 02/14/25 04:20 You/Your Family Experience No 02/14/25 04:20 fever (hyperthermia) with Relationship Recent Exposure to Contagious No 02/14/25 04:20 Disease Does patient have nerve No 02/14/25 04:20 stimulator Patient instructed to have No 02/14/25 04:20 device shut off --Does patient have Pacemaker Yes 02/14/25 13:47 or ICD? When Was Last Pacemaker Check 02/13/2025 02/14/25 04:20 QUESTION #4 FULL TEXT: You/Your Family Experience fever (hyperthermia) with Anesthesia Last Oral Intake Last Oral intake: Last Oral Intake NPO since 00:00 02/14/25 13:47 Meds taken in AM with sips of Yes 02/14/25 13:47 water? Meds patient instructed to see mar 02/14/25 13:47 take am of surgery PONV PONV - baling machine tender: PONV - baling machine tender Female HX of Motion Sickness HX of N/V After Surgery Non-Smoker Duration of Surgery greater than 60 minutes Number of Risk Factors PONV Score Height & Weight Height & Weight: Anesthesia: Height & Weight Height 5 ft 4.96 in 02/14/25 13:47 Weight: 87.7 kg 02/14/25 13:47 Body Mass Index (BMI) 32.2 02/14/25 13:47 Respiratory Assessment Respiratory Assessment - baling machine tender: Respiratory Tract Infection Hx - baling machine tender Hx Respiratory Tract Infection No 02/14/25 04:20 STOP Sleep Apnea STOP Sleep Apnea - baling machine tender: STOP Sleep Apnea - baling machine tender Hx Hypertension Yes 02/12/25 22:17 Hx Sleep Apnea No 02/12/25 22:17 CPAP No 05/16/24 16:35 BIPAP No 05/15/24 23:23 Do you snore loudly (louder No 02/12/25 22:17 than talking or can be heard Do you often feel tired/ No 02/12/25 22:17 fatigued/ sleepy during daytime? Has anyone observed you stop No 02/12/25 22:17 breathing during sleep? STOP Results Negative 02/12/25 22:17 QUESTION #5 FULL TEXT : Do you snore loudly (louder than talking or can be heard through closed doors)? Tobacco Use History Tobacco Use History - baling machine tender: Tobacco Use History - baling machine tender Tobacco Use Smoking Status Never smoker 02/12/25 22:17 Hx Tobacco Use No 02/12/25 22:17 Years Smoking Packs Smoked per Day Smoking Cessation Date was within the last 15 years Hx Smoking Cessation Date Hx Smoking Cessation No 02/12/25 22:17 Counseling Hematologic Medial History Hematologic Hx - baling machine tender: Hematologic Medical Hx - behavior specialist Hx of Blood Transfusion Yes 02/12/25 22:17 Hx of Transfusion in last 3 No 02/12/25 22:17 Months Date of Last Transfusion (if within last 3 months) Ever experience any problems No 02/12/25 22:17 with transfusion(s)? Specify any problems Hx of Preganancy in last 3 N/A 02/12/25 22:17 Months Nurse Filling Out Transfusion CSIGNORIN 02/12/25 22:17 & Questions: Date: 02/12/25 02/12/25 22:17 Time: 22:20 02/12/25 22:17 Patient unable to answer at this time (ie. confused, unrespo /Reproduction History /Reproductive History - baling machine tender: /Reproductive Hx- baling machine tender Hx Now No 02/14/25 04:20 Gestational Age (in weeks): EDC: Hx Hx Para Hx Section SAB No 02/14/25 04:20 Does the father of the baby or his family experience fever w Father of the baby Malignant Hypertension history comment Active Medications Active Medications: Current Medications Generic Name Dose Route Start Last Admin Trade Name Freq PRN Reason Stop Dose Admin Acetaminophen 500 mg 02/12/25 21:50 Acetaminophen 500 Mg Tablet PO Q6H PRN PRN Fever, pain 1-12/14 Al Hydroxide/Mg Hydroxide 30 ml 02/12/25 21:50 Mag Hydrox/Al Hydrox/Simeth 30 Ml Udc PO Q6H PRN PRN Gastric Burning Albuterol Sulfate 2.5 mg 02/12/25 21:50 Albuterol 2.5 Mg/3 Ml Vial.Neb. INHALATION Q2H PRN PRN Dyspnea, wheezing Fluticasone Propionate 1 spray 02/13/25 10:00 02/14/25 07:20 Fluticasone 0.05% 1 [place] Nasal.Sry NASAL 1 spray DAILY PREET Administration Glucagon 1 mg 02/12/25 21:50 Glucagon 1 Mg/Ml Syringe IM X1 PRN Hypoglycemia Protocol Hydralazine HCl 10 mg 02/12/25 21:50 Hydralazine 20 Mg/Ml Vial IV Q4H PRN PRN SBP > 160 Protocol Hydrocortisone 1 applic 02/12/25 21:50 Hydrocortisone 2.5% Crm RC BID PRN PRN hemorrhoids Dextrose 250 mls @ 0 mls/hr 02/12/25 21:50 Dextrose 10%-Water IV .Q0M PRN HYPOGLYCEMIA Protocol As Directed Ceftriaxone Sodium 2 gm/ 50 mls @ 100 mls/hr 02/13/25 22:00 02/13/25 23:00 Sodium Chloride IV Infused 2200 PREET Infusion Pantoprazole Sodium 80 mg/ 100 mls @ 10 mls/hr 02/12/25 21:50 02/14/25 15:12 Sodium Chloride CONT INF Infused Q10H PREET Infusion Sodium Chloride 250 mls @ 15 mls/hr 02/12/25 22:02 IV .[id number] PRN Saline Flush Sodium Chloride 250 mls @ 15 mls/hr 02/12/25 22:02 IV .[id number] PRN Additional IVPB Infusion Lactated Ringer's 1,000 mls @ 15 mls/hr 02/14/25 16:00 02/14/25 16:00 IV 15 mls/hr .Q48H PREET Administration Insulin Human Lispro 0 unit 02/13/25 00:00 02/14/25 11:19 Insulin Lispro 100 Unit/Ml Insuln.Pen SC Not Given Q6H PREET Protocol Loratadine 10 mg 02/12/25 22:00 02/13/25 22:30 Loratadine 10 Mg Tablet PO 10 mg QHS PREET Administration Losartan Potassium 12.5 mg 02/13/25 10:00 02/14/25 07:21 Losartan Potassium 25 Mg Tablet PO 12.5 mg DAILY PREET Administration Protocol Melatonin 3 mg 02/12/25 21:50 Melatonin 3 Mg Tablet PO QHS PRN PRN INSOMNIA Metoprolol Tartrate 50 mg 02/12/25 22:00 02/14/25 07:21 Metoprolol Tartrate 50 Mg Tablet PO 50 mg BID PREET Administration Protocol Ondansetron HCl 4 mg 02/12/25 21:50 02/13/25 04:04 Ondansetron 4 Mg/2 Ml Vial IV 4 mg Q8H PRN PRN Administration NAUSEA/VOMITING Rosuvastatin Calcium 20 mg 02/12/25 22:00 02/13/25 22:30 Rosuvastatin 20 Mg Tablet PO 20 mg QHS PREET Administration Senna/Docusate Sodium 2 tablet 02/12/25 21:50 Senna/Docusate Sodium 1 Tablet PO BID PRN PRN Constipation Sodium Chloride 10 - 40 ml 02/12/25 22:02 02/13/25 04:04 0.9% Saline Lock 10 Ml Syringe IV 10 ml UD PRN Administration SALINE FLUSH PFSH Medical History Pacemaker Obesity (BMI 30-39.9) Cancer of kidney Cirrhosis of liver not due to alcohol Goiter Depression History of renal carcinoma Stage 3a chronic kidney disease (CKD) Bilateral carotid artery stenosis (10/27/20) Complete heart block Thrombosed external hemorrhoid Osteoporosis Cancer Irregular heart beat DVT (deep venous thrombosis) TIA (transient ischemic attack) Rectal pain Chronic anemia Obesity PAF (paroxysmal atrial fibrillation) Asthma Diabetes Hemorrhoids Arthritis Hypertension VTE (venous thromboembolism) CVA (cerebral vascular accident) PAF (paroxysmal atrial fibrillation) HLD (hyperlipidemia) Home Medications ?Medication ?Instructions ?Recorded ?Last Taken ?Type loratadine 10 mg tablet 10 mg PO QHS allergies 30 days 07/23/16 02/11/25 Rx hydrocortisone 2.5 % topical cream 1 applic [place] QD-BID PRN hemorrhoids 02/04/23 02/05/25 History with perineal applicator (Anusol-HC) metoprolol tartrate 50 mg tablet 50 mg PO BID heart #180 tabs 02/24/24 02/12/25 Rx glipizide 10 mg tablet, extended 10 mg PO BID blood sugar 04/18/24 02/12/25 History release 24 hr warfarin 2.5 mg tablet 2.5 mg PO MOTUWETH afib 05/15/24 02/12/25 History warfarin 5 mg tablet 5 mg PO SUMOFRSA afib 05/15/24 02/11/25 History losartan 25 mg tablet 12.5 mg (1/2 x 25 mg) PO DAILY #45 05/21/24 02/11/25 Rx tabs acetaminophen 500 mg capsule 500 mg PO Q6H PRN pain 02/12/25 02/08/25 History docusate sodium 100 mg capsule 100 mg PO DAILY stool softner 02/12/25 02/11/25 History (Colace) fluticasone propionate 50 1 spray intranasal DAILY allergies 02/12/25 02/12/25 History mcg/actuation nasal spray,suspension multivitamin (Daily Multi-Vitamin 1 tab PO DAILY supplement 02/12/25 02/12/25 History tablet) ondansetron 4 mg disintegrating 4 mg PO Q8H PRN Nausea 02/12/25 02/12/25 History tablet pantoprazole 40 mg tablet,delayed 40 mg PO BID gerd 02/12/25 02/12/25 History release rosuvastatin 20 mg tablet 20 mg PO QHS cholesterol 02/12/25 02/11/25 History Allergy/AdvReac Type Severity Reaction Status Date / Time simvastatin Allergy Severe Unknown Verified 02/12/25 17:55 etodolac AdvReac Intermediate GI upset Verified 02/12/25 17:55 gabapentin AdvReac Intermediate dizziness Verified 02/12/25 17:55 NSAIDS (Non-Steroidal AdvReac Intermediate GI upset Verified 02/12/25 17:55 Anti-Inflamma sulfamethoxazole AdvReac Intermediate Sulfa Verified 02/12/25 17:55 drugs GI upset sulfametrole AdvReac Intermediate GI upset Verified 02/12/25 17:55 valdecoxib (From Bextra) AdvReac Intermediate GI upset Verified 02/12/25 17:55 atorvastatin AdvReac Unknown unknown Verified 02/12/25 17:55 codeine AdvReac Unknown unknown Verified 02/12/25 17:55 guaifenesin (From Entex [place]) AdvReac Unknown unknown Verified 02/12/25 17:55 hydrocodone AdvReac Unknown unknown Verified 02/12/25 17:55 naproxen (From Naprosyn) AdvReac Unknown unknown Verified 02/12/25 17:55 phenylephrine (From Entex [place]) AdvReac Unknown unknown Verified 02/12/25 17:55 phenylpropanolamine (From AdvReac Unknown unknown Verified 02/12/25 17:55 Entex [place]) pravastatin AdvReac Unknown unknown Verified 02/12/25 17:55 quinapril (From Accupril) AdvReac Unknown Unknown Verified 02/12/25 17:55 rofecoxib (From Vioxx) AdvReac Unknown unknown Verified 02/12/25 17:55 Sulfa (Sulfonamide AdvReac Unknown Diarrhea Verified 02/12/25 17:55 Antibiotics) tramadol AdvReac Unknown unknown Verified 02/12/25 17:55 celecoxib (From Celebrex) AdvReac Nausea/Vom/ Verified 02/12/25 17:55 Diarrhea fluoxetine HCl (From Prozac) AdvReac Other Verified 02/12/25 17:55 isosorbide AdvReac Other Verified 02/12/25 17:55 metformin AdvReac Nausea/Vom/ Verified 02/12/25 17:55 Diarrhea Family History Mother CVA (cerebral vascular accident) Diabetes Heart disease Father CVA (cerebral vascular accident) Diabetes Heart disease Other director long term care (current) use of 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 Surgical History S/P placement of cardiac pacemaker History of incision and drainage H/O partial nephrectomy History of hysterectomy History of knee replacement History of cholecystectomy History of shoulder surgery History of appendectomy Social History household members: spouse Smoking Status: Never smoker alcohol intake: never substance use type: does not use additional social history: Ambulates with a wheeled walker Review of Systems (Anesthesia) ROS Narrative System reviewed and no additional complaints, except as documented.
--- NOTE | 2025-02-14 17:33 | OP.EGD_ITS ---
Patient Name: Laisha Walker Procedure Date: 02/14/2025 5:13 PM Date of : 1950 Age: 74 Procedure: Upper GI endoscopy Indications: Iron deficiency anemia, Melena Providers: Omer Jane DO Medicines: Monitored Anesthesia Care Patient Profile: This is a 74 year old female. Refer to note in patient chart for documentation of history and physical. Patient has symptoms of acute abdominal cramping. Complications: No immediate complications. Procedure: Pre-Anesthesia Assessment: - Prior to the procedure, a History and Physical was performed, and patient medications and allergies were reviewed. The patient is competent. The risks and benefits of the procedure and the sedation options and risks were discussed with the patient. All questions were answered and informed consent was obtained. Patient identification and proposed procedure were verified by the physician in the pre-procedure area. Mental Status Examination: alert and oriented. Airway Examination: normal oropharyngeal airway and neck mobility. Respiratory Examination: clear to auscultation. CV Examination: normal. Prophylactic Antibiotics: The patient does not require prophylactic antibiotics. Prior Anticoagulants: The patient has taken no anticoagulant or antiplatelet agents except for NSAID medication. ASA Grade Assessment: II - A patient with mild systemic disease. After reviewing the risks and benefits, the patient was deemed in satisfactory condition to undergo the procedure. The anesthesia plan was to use monitored anesthesia care (MAC). Immediately prior to administration of medications, the patient was re-assessed for adequacy to receive sedatives. The heart rate, respiratory rate, oxygen saturations, blood pressure, adequacy of pulmonary ventilation, and response to care were monitored throughout the procedure. The physical status of the patient was re-assessed after the procedure. After obtaining informed consent, the endoscope was passed under direct vision. Throughout the procedure, the patient's blood pressure, pulse, and oxygen saturations were monitored continuously. The Endoscope was introduced through the mouth, and advanced to the fourth part of the duodenum. Small bowel enteroscopy was deemed necessary. The upper GI endoscopy was accomplished without difficulty. The patient tolerated the procedure well. Scope In: 5:24:14 PM Scope Out: 5:27:52 PM Total Procedure Duration Time 0 hours 3 minutes 38 seconds Findings: The examined esophagus was normal. A few 5 mm sessile polyps with no bleeding and no stigmata of recent bleeding were found in the cardia, in the gastric fundus and in the gastric body. Biopsies were taken with a cold forceps for histology. Verification of patient identification for the specimen was done. Estimated blood loss was minimal. No gross lesions were noted in the entire examined duodenum. Impression: - Normal esophagus. - A few gastric polyps. Biopsied. - No gross lesions in the entire examined duodenum. Recommendation: - [facility] to [facility]. - Advance diet as tolerated. - Continue present medications. - Await pathology results. Procedure Code(s): --- Professional --- 66561, Small intestinal endoscopy, enteroscopy beyond second portion of duodenum, not including ileum; with biopsy, single or multiple CPT copyright 2021 [employer]. All rights reserved. The codes documented in this report are preliminary and upon medical records coder review may be revised to meet current compliance requirements. Omer Jane DO 02/14/2025 5:32:54 PM This report has been signed electronically. Number of Addenda: 0 Note Initiated On: 02/14/2025 5:13 PM
--- NOTE | 2025-02-14 17:33 | OP.PROVAT_ITS ---
02/14/2025 Alexys Tracy [address] [place] [address] Re : Upper GI endoscopy procedure for Laisha Walker Dear Dr. Tracy This procedure was performed on February. My impressions and recommendations are as follows: Impressions : - Normal esophagus. - A few gastric polyps. Biopsied. - No gross lesions in the entire examined duodenum. Recommendations : - [facility] patient to [facility]. - Advance diet as tolerated. - Continue present medications. - Await pathology results. My findings are described in the full procedure note, which is enclosed. If I can be of further assistance, please feel free to contact me at . Sincerely, Omre Jane, 02/14/2025 5:32:54 PM This report has been signed electronically.
--- NOTE | 2025-02-14 17:35 | PCM.POST.ANE ---
Anesthesia: Postop Eval I Current Vital Signs Temperature: 97.7 F Pulse Rate: 76 Blood Pressure: 148/52 Respiratory Rate: 20 Pulse Ox: 95 Oxygen Delivery Method: Room Air Assessment Airway patent: Yes Spontaneous unlabored respirations: Yes Mental status: Awake and Calm nausea: No Vomiting: No Anesthesia Complication: No Fluid Hydration Crystalloid volume administer (ml): 200 Total IV fluid infused: 200 Progress Note Anesthesia document: Postop Eval 1 completed: Yes
--- NOTE | 2025-02-14 20:44 | POSTOPAN2_ITS ---
Anesthesia Postop Eval I Sum Postop Eval Completion status Anesthesia document: Postop Eval 1 completed: Yes Anesthesia Postop Eval I Summary Anesthesia Postop Eval I Summary: Anesthesia Postop Eval I: Assessment Summary Airway patent Yes 02/14/25 17:36 [email or web address] Spontaneous unlabored Yes 02/14/25 17:36 [email or web address] respirations Mental status Awake,Calm 02/14/25 17:36 [email or web address] nausea No 02/14/25 17:36 [email or web address] Vomiting No 02/14/25 17:36 [email or web address] Anesthesia Postop Eval I: Fluid Summary Crystalloid volume administer 200 02/14/25 17:36 [email or web address] (ml) Colloids volume administered ( ml) Blood Product volume administered (ml) Total IV fluid infused 200 02/14/25 17:36 [email or web address] Anesthesia Postop Eval I: Summary Notes Anesthesia Complication No 02/14/25 17:36 [email or web address] Anesthesia Complication Comment: Post-operative progress note Anesthesia: Postop Eval II Evaluation Mental status: Awake and Calm Pain Level: 0 nausea: No Vomiting: No Complications Anesthesia Complication: No
--- NOTE | 2025-02-14 20:44 | PCM.POSTANE2 ---
Anesthesia Postop Eval I Sum Postop Eval Completion status Anesthesia document: Postop Eval 1 completed: Yes Anesthesia Postop Eval I Summary Anesthesia Postop Eval I Summary: Anesthesia Postop Eval I: Assessment Summary Airway patent Yes 02/14/25 17:36 [email or web address] Spontaneous unlabored Yes 02/14/25 17:36 [email or web address] respirations Mental status Awake,Calm 02/14/25 17:36 [email or web address] nausea No 02/14/25 17:36 [email or web address] Vomiting No 02/14/25 17:36 [email or web address] Anesthesia Postop Eval I: Fluid Summary Crystalloid volume administer 200 02/14/25 17:36 [email or web address] (ml) Colloids volume administered ( ml) Blood Product volume administered (ml) Total IV fluid infused 200 02/14/25 17:36 [email or web address] Anesthesia Postop Eval I: Summary Notes Anesthesia Complication No 02/14/25 17:36 [email or web address] Anesthesia Complication Comment: Post-operative progress note Anesthesia: Postop Eval II Evaluation Mental status: Awake and Calm Pain Level: 0 nausea: No Vomiting: No Complications Anesthesia Complication: No
[2025-02-14] MEDS: Ceftriaxone 2 GM in 0.9% Normal Saline (50mL MB+) 50 ML IV (22:30)
[2025-02-15 04:07] VITALS: BMI 33.1
[2025-02-15 04:30] VITALS: BP 130/59; PULSE 62; RESP 16; TEMP 37.1; O2SAT 97
[2025-02-15] MEDS: Pantoprazole Sodium 80 MG in 0.9% Normal Saline (100mL Bag) 80 ML 10 MG CONT INF (05:42)
--- NOTE | 2025-02-15 07:21 | DCINST_ITS ---
Discharge Instructions DC O2, CPAP, BIPAP needs Home O2 Discharge instructions: No Dressing / Incision Discharge Activity: Return to Normal Activity Dressing / Incision Call your doctor if you observe: Fever of 101 or Higher, Shortness of breath, Dizziness, Fainting spells, Swelling in the ankles, Chest pain and Increased palpitations (irregular heartbeat) Follow Up Care Test Results: Test results from this visit will be discussed in further detail at your follow- up appointment, if applicable. Discharge Plan Admission Admit Date/Time: 02/12/25 21:03 Attending Provider: Madhav Keene Primary Care Provider: Alexys Tracy Consulting Providers: Maykel Sloan; Omer Jane; Sindi Thomas; Bonnie De Jesus; Maria G Escamilla; Elayne Mcmahon Instructions Additional Instructions / Restrictions: Follow-up with your PCP in 3 to 5 days to monitor your hemoglobin Discharge Orders/Prescriptions Prescriptions: Continued hydrocortisone [Anusol-HC] 2.5 % cream with perineal applicator 1 applic RI QD-BID PRN (Reason: hemorrhoids) glipizide 10 mg tablet extended release 24hr 10 mg PO BID loratadine 10 MG tablet 10 mg PO QHS 30 Days 0RF warfarin 5 mg tablet 5 mg PO Protocol: Dose Management Condition: Tuesday Dose/Route: 5 mg Instruction: 1 x 5 mg tablet Condition: Tuesday Dose/Route: 5 mg Instruction: 1 x 5 mg tablet Condition: Tuesday Dose/Route: 2.5 mg Instruction: 1 x 2.5 mg tablet Condition: Tuesday Dose/Route: 2.5 mg Instruction: 1 x 2.5 mg tablet Condition: Dose/Route: 2.5 mg Instruction: 1 x 2.5 mg tablet Condition: Tuesday Dose/Route: 5 mg Instruction: 1 x 5 mg tablet Condition: Tuesday Dose/Route: 5 mg Instruction: 1 x 5 mg tablet Protocol Text: Adjustment Start Date: Tuesday01/11/25 INR Value: 2.0 INR Date: 01/11/25 Recheck Date: 02/10/25 warfarin 2.5 mg tablet 2.5 mg PO JULIETTE Protocol: Dose Management Condition: Tuesday Dose/Route: 5 mg Instruction: 1 x 5 mg tablet Condition: Tuesday Dose/Route: 5 mg Instruction: 1 x 5 mg tablet Condition: Tuesday Dose/Route: 2.5 mg Instruction: 1 x 2.5 mg tablet Condition: Tuesday Dose/Route: 2.5 mg Instruction: 1 x 2.5 mg tablet Condition: Dose/Route: 2.5 mg Instruction: 1 x 2.5 mg tablet Condition: Tuesday Dose/Route: 5 mg Instruction: 1 x 5 mg tablet Condition: Tuesday Dose/Route: 5 mg Instruction: 1 x 5 mg tablet Protocol Text: Adjustment Start Date: Tuesday01/11/25 INR Value: 2.0 INR Date: 01/11/25 Recheck Date: 02/10/25 Rx Instructions: 2.5 mg orally 1 tablet (2.5 mg) on , Tuesday, Tuesday, and ; 2 tablets together to = 5mg on Tuesday, Tuesday and Tuesday at bedtdime; dose changes often, please give extra tablets fluticasone propionate 50 mcg/actuation spray,suspension 1 spray INTRANASAL DAILY docusate sodium [Colace] 100 mg capsule 100 mg PO DAILY multivitamin [Daily Multi-Vitamin] Tablet 1 tab PO DAILY acetaminophen 500 mg capsule 500 mg PO Q6H PRN (Reason: pain) pantoprazole 40 mg tablet,delayed release (DR/EC) 40 mg PO BID ondansetron 4 mg tablet,disintegrating 4 mg PO Q8H PRN (Reason: Nausea) rosuvastatin 20 mg tablet 20 mg PO QHS metoprolol tartrate 50 mg tablet 50 mg PO BID Qty: 180 3RF losartan 25 mg tablet 12.5 mg PO DAILY Qty: 45 3RF Rx Instructions: Hold for SBP less than 130 mmHg Referrals / Follow Up: Alexys Tracy MD [Primary Care Provider, Family Practice] - Within 1 Week Omer Jane DO [Med Staff - Active Staff, Gastroenterology] - Within 1 Month Disposition Disposition (needs filled in before D/C Order can be placed): Home, Self Care
[2025-02-15 08:22] LABS: Hematocrit 33.6 % (37-47); Hemoglobin 10.5 g/dL (12.0-15.0); Immature Granulocytes Count 0.030 X10^3/uL (0.0-0.0); Mean Corp Hgb Conc 31.3 g/dL (32-36); Mean Corpuscular Volume 83.2 fL (81-99); Mean Platelet Vol. 11.9 fl (6.2-12.0); NRBC Flagged by Analyzer 0 % (0-5); Platelet Count 182 K/mm3 (150-450); RBC Distribution Width CV 15.0 % (11.6-14.6); RBC Distribution Width SD 45.7 fl (35.1-43.9); Red Blood Count 4.04 M/mm3 (4.2-5.4); White Blood Count 5.9 K/mm3 (4.4-11.0)
[2025-02-15 08:41] VITALS: BP 146/91; PULSE 61; RESP 18; TEMP 36.7; O2SAT 96
[2025-02-15 08:45] VITALS: PULSE 61
[2025-02-15] MEDS: Fluticasone 0.05% 1 SPRAY NASAL.SRY NASAL (08:46)
--- NOTE | 2025-02-15 09:27 | PHA.DC.MR.R ---
Pharm[facility] [place] Med Reconciliation Pharmacy Service has performed discharge medication reconciliation for this patient. The patient's discharge medication list was reviewed for discrepancies and discrepancies were resolved. Medications at Discharge Home Medications loratadine 10 mg tablet 10 mg PO QHS allergies 30 days 07/23/16 hydrocortisone 2.5 % topical cream with perineal applicator (Anusol-HC) 1 applic [place] QD-BID PRN hemorrhoids 02/04/23 metoprolol tartrate 50 mg tablet 50 mg PO BID heart #180 tabs 02/24/24 glipizide 10 mg tablet, extended release 24 hr 10 mg PO BID blood sugar 04/18/24 warfarin 2.5 mg tablet 2.5 mg PO MOTUWETH afib 05/15/24 warfarin 5 mg tablet 5 mg PO SUMOFRSA afib 05/15/24 losartan 25 mg tablet 12.5 mg (1/2 x 25 mg) PO DAILY #45 tabs 05/21/24 acetaminophen 500 mg capsule 500 mg PO Q6H PRN pain 02/12/25 docusate sodium 100 mg capsule (Colace) 100 mg PO DAILY stool softner 02/12/25 fluticasone propionate 50 mcg/actuation nasal spray,suspension 1 spray intranasal DAILY allergies 02/12/25 multivitamin (Daily Multi-Vitamin tablet) 1 tab PO DAILY supplement 02/12/25 ondansetron 4 mg disintegrating tablet 4 mg PO Q8H PRN Nausea 02/12/25 pantoprazole 40 mg tablet,delayed release 40 mg PO BID gerd 02/12/25 rosuvastatin 20 mg tablet 20 mg PO QHS cholesterol 02/12/25
--- NOTE | 2025-02-15 13:26 | PCM.DC.SUM ---
Providers Date of Admission: 02/12/25 Primary Care Physician: Dr. Alexys Tracy MD Consultations 02/12/25 21:50 Consult: Gastroenterology Routine Consulting Provider: [facility] Reason for Consult: GI bleed, chronically anticoagulated EMERGENT Consult: No MD Notified: Yes Date Notified: 02/12/25 Time Notified: 21:08 Method of Notification: Text Reason For Visit: GI BLEED Diagnosis Discharge Diagnosis (1) LUQ pain: Status: Acute Code(s): R10.12 - Left upper quadrant pain Medications at Discharge Home Medications loratadine 10 mg tablet 10 mg PO QHS allergies 30 days 07/23/16 hydrocortisone 2.5 % topical cream with perineal applicator (Anusol-HC) 1 applic [place] QD-BID PRN hemorrhoids 02/04/23 metoprolol tartrate 50 mg tablet 50 mg PO BID heart #180 tabs 02/24/24 glipizide 10 mg tablet, extended release 24 hr 10 mg PO BID blood sugar 04/18/24 warfarin 2.5 mg tablet 2.5 mg PO MOTUWETH afib 05/15/24 warfarin 5 mg tablet 5 mg PO SUMOFRSA afib 05/15/24 losartan 25 mg tablet 12.5 mg (1/2 x 25 mg) PO DAILY #45 tabs 05/21/24 acetaminophen 500 mg capsule 500 mg PO Q6H PRN pain 02/12/25 docusate sodium 100 mg capsule (Colace) 100 mg PO DAILY stool softner 02/12/25 fluticasone propionate 50 mcg/actuation nasal spray,suspension 1 spray intranasal DAILY allergies 02/12/25 multivitamin (Daily Multi-Vitamin tablet) 1 tab PO DAILY supplement 02/12/25 ondansetron 4 mg disintegrating tablet 4 mg PO Q8H PRN Nausea 02/12/25 pantoprazole 40 mg tablet,delayed release 40 mg PO BID gerd 02/12/25 rosuvastatin 20 mg tablet 20 mg PO QHS cholesterol 02/12/25 Hospital Course Operations None Procedures EGD Summary of Care Provided Minutes Spent on Discharge: 37 Hospital Course: Per HPI: The patient is a 74-year-old female with PMHx: GERD with history of previous duodenal ulcer/GI bleed, obesity, chronic hepatic cirrhosis nonalcoholic with chronically elevated CEA, history of right renal carcinoma, CKD stage II unclear subtype, history VTE, history of CVA, diabetes mellitus type 2, carotid disease, history complete heart block, hypertension, hyperlipidemia, chronic asthma with allergic rhinitis, PAF, GERD who presents to the [facility] ED on 02/12/2025 with concern for melanotic stools and left lower quadrant pain with 1 bowel movement on the evening of day of presentation noted to be black and watery recently dealing with constipation with self administration of laxatives earlier in the day with also some bright red blood in the stool however she does have ongoing hemorrhoids with lightheadedness however noted to be chronic with mild nausea also chronic per patient in addition to left lower quadrant pain however she also reports there is some chronic component to this with no emesis prompting eventual ED evaluation to be cautious. Patient denies any ongoing iron usage or Pepto-Bismol usage. She does report acute on chronic bloating sensation throughout the abdomen. She describes the LLQ pain as more aching, 3-4/10 in severity. Workup in the ED included T98.6, heart rate 66, BP 146/63, respiratory rate 16, 99% on room air with most recent repeat vitals heart rate 68, BP 107/52, respiratory rate 16, 100% on room air, CBC with WBC 8.6, Hgb 11.5, MCV 83.5, platelet 241, acute shift, coags with INR 2.6, CMP with BUN/creatinine 20/1.28, GFR 43, glucose 231, hepatic profile with AST 41 otherwise not marked appearing, lipase 90, urinalysis with specific gravity 1.015, protein 15, occult blood 10, negative nitrite, leukocyte esterase 100 with no marked urine WBCs or bacteria, type and screen initiated per ED physician, CT abdomen and pelvis with IV contrast only with no acute or active inflammatory intra-abdominal pathology, chronic hepatic cirrhosis and mild splenomegaly, stool guaiac positive. In the ED patient ministered Rocephin 2 g IV x 1 as well as Protonix 40 mg IV x 1. Hospital Course: 1. Left lower quadrant pain possible GI bleed/chronic hepatic cirrhosis/GERD ? Hemoglobin is unremarkable ? CT of the abdomen pelvis was unremarkable ? Continue with Protonix ? She was given a dose of vitamin K to lower her INR with the concern of possible GI bleed ? INR today is 1.4 ? Continue with Rocephin in the setting of her history of cirrhosis with her belly pain ? Plan for EGD appreciate GIs assistance 02/15/2025: EGD last evening was unremarkable will continue with her home medications. Gastroenterology felt that she was stable for discharge with outpatient follow-up for an outpatient colonoscopy. I discussed with her the possibility for discharge and she expressed understanding of the risks and benefits of going home and would like to go home today. Will restart all of her home medications on discharge and recommend outpatient follow-up. 2. Essential HTN/HLD/complete heart block/paroxysmal A-fib/history of CVA ? Continue with her home blood pressure medications ? Continue with her Crestor ? She does have a pacemaker in place ? Will hold her Coumadin can resume on discharge 3. DM2 with CKD 3 ? Insulin ? Accu-Cheks ? Will monitor make adjustments as necessary ? Renal functions at baseline in the setting of right partial nephrectomy for right renal carcinoma 4. Asthma with allergies ? No exacerbation ? Continue with her home meds Physical Exam Narrative General: Alert, Oriented x3, Cooperative, No apparent distress HEENT: Atraumatic, PERRLA, EOMI, Normocephalic Oral: Moist Mucosa Neck: Supple, No JVD Lungs: Diminished, Normal air movement, No rhonchi, No wheeze, No rales Cardiovascular: Regular rate, Regular Rhythm, Normal S1, Normal S2, No murmurs Abdomen: Soft, left lower quadrant tender, Non-Distended, No Hepato-splenomegaly Extremities: Edema, Capillary Refill Less than 3 Seconds Skin: No rashes, No breakdown Musculoskeletal: No Tenderness to Palpation of Joints or Extremities Neurological: No focal neurological deficits, moves all extremities Psych/Mental Status: Normal Affect, Appropriate Weight / BMI Weight Weight: 199 lb 1.239 oz Body Mass Index (BMI) 33.1 ABG / Lab / Microbiology Data 02/15/25 07:45 02/14/25 06:04 Laboratory: Laboratory Results - last 24 hr 02/14/25 18:12: POC Glucose 116 H 02/14/25 23:51: POC Glucose 162 H 02/15/25 05:44: POC Glucose 137 H 02/15/25 07:45: WBC 5.9, RBC 4.04 L, Hgb 10.5 L, Hct 33.6 L, MCV 83.2, MCH 26.0 L, MCHC 31.3 L, RDW Std Deviation 45.7 H, RDW Coeff of Rukhsana 15.0 H, Plt Count 182, MPV 11.9, Immature Gran % (Auto) 0.500, Neut % (Auto) 59.5, Lymph % (Auto) 29.9, [place] % (Auto) 7.8, Eos % (Auto) 1.5, Baso % (Auto) 0.8, Absolute Neuts (auto) 3.5, Absolute Lymphs (auto) 1.76, Nucleated RBC % 0 Microbiology: Microbiology 02/12/25 18:54 Stool Stool Occult Blood (MANDY) - Final Occult Blood Positive D/C Instructions Call your doctor if you observe: Fever of 101 or Higher, Shortness of breath, Dizziness, Fainting spells, Swelling in the ankles, Chest pain and Increased palpitations (irregular heartbeat) DC O2, CPAP, BIPAP Needs Home O2 Discharge instructions: No Meaningful Use Info Meaningful Use Meaningful Use Diagnoses (Choose all that apply): None applicable Discharge Plan Admission Admit Date/Time: 02/12/25 21:03 Attending Provider: Madhav Keene Primary Care Provider: Alexys Tracy Consulting Providers: Maykel Sloan; Omer Jane; Sindi Thomas; Bonnie De Jesus; Maria G Escamilla; Elayne Mcmahon Instructions Additional Instructions / Restrictions: Follow-up with your PCP in 3 to 5 days to monitor your hemoglobin Discharge Orders/Prescriptions Prescriptions: Continued hydrocortisone [Anusol-HC] 2.5 % cream with perineal applicator 1 applic [place] QD-BID PRN (Reason: hemorrhoids) glipizide 10 mg tablet extended release 24hr 10 mg PO BID loratadine 10 MG tablet 10 mg PO QHS 30 Days 0RF warfarin 5 mg tablet 5 mg PO SUMO Protocol: Dose Management Condition: Tuesday Dose/Route: 5 mg Instruction: 1 x 5 mg tablet Condition: Tuesday Dose/Route: 5 mg Instruction: 1 x 5 mg tablet Condition: Tuesday Dose/Route: 2.5 mg Instruction: 1 x 2.5 mg tablet Condition: Tuesday Dose/Route: 2.5 mg Instruction: 1 x 2.5 mg tablet Condition: Dose/Route: 2.5 mg Instruction: 1 x 2.5 mg tablet Condition: Tuesday Dose/Route: 5 mg Instruction: 1 x 5 mg tablet Condition: Tuesday Dose/Route: 5 mg Instruction: 1 x 5 mg tablet Protocol Text: Adjustment Start Date: Tuesday01/11/25 INR Value: 2.0 INR Date: 01/11/25 Recheck Date: 02/10/25 warfarin 2.5 mg tablet 2.5 mg PO MOTUWETH Protocol: Dose Management Condition: Tuesday Dose/Route: 5 mg Instruction: 1 x 5 mg tablet Condition: Tuesday Dose/Route: 5 mg Instruction: 1 x 5 mg tablet Condition: Tuesday Dose/Route: 2.5 mg Instruction: 1 x 2.5 mg tablet Condition: Tuesday Dose/Route: 2.5 mg Instruction: 1 x 2.5 mg tablet Condition: Dose/Route: 2.5 mg Instruction: 1 x 2.5 mg tablet Condition: Tuesday Dose/Route: 5 mg Instruction: 1 x 5 mg tablet Condition: Tuesday Dose/Route: 5 mg Instruction: 1 x 5 mg tablet Protocol Text: Adjustment Start Date: Tuesday01/11/25 INR Value: 2.0 INR Date: 01/11/25 Recheck Date: 02/10/25 Rx Instructions: 2.5 mg orally 1 tablet (2.5 mg) on , Tuesday, Tuesday, and ; 2 tablets together to = 5mg on Tuesday, Tuesday and Tuesday at bedtdime; dose changes often, please give extra tablets fluticasone propionate 50 mcg/actuation spray,suspension 1 spray INTRANASAL DAILY docusate sodium [Colace] 100 mg capsule 100 mg PO DAILY multivitamin [Daily Multi-Vitamin] Tablet 1 tab PO DAILY acetaminophen 500 mg capsule 500 mg PO Q6H PRN (Reason: pain) pantoprazole 40 mg tablet,delayed release (DR/EC) 40 mg PO BID ondansetron 4 mg tablet,disintegrating 4 mg PO Q8H PRN (Reason: Nausea) rosuvastatin 20 mg tablet 20 mg PO QHS metoprolol tartrate 50 mg tablet 50 mg PO BID Qty: 180 3RF losartan 25 mg tablet 12.5 mg PO DAILY Qty: 45 3RF Rx Instructions: Hold for SBP less than 130 mmHg Referrals / Follow Up: Alexys Tracy MD [Primary Care Provider, Family Practice] - 02/20/25 10:00 am Omer Jane DO [Med Staff - Active Staff, Gastroenterology] - 03/06/25 12:30 pm Disposition Disposition (needs filled in before D/C Order can be placed): Home, Self Care Charges/Coding Visit Charges Inpatient E&M: 57629 Disch Hosp >30min
== END 2025-02-15 10:06 | disposition home or self-care (01) ==
LOC: ED 21:01 → MS3 21:27
PROVIDERS: Anesthesiology; Internal Medicine Gastroenterology; Admitting Provider Family Medicine; Emergency Provider Student in an Organized Health Care Education/Training Program; PCP Family Medicine; Visit Provider Family Medicine
PROC: 0DJ08ZZ Inspection of Upper Intestinal Tract, Via Natural or Artificial Opening Endoscopic (ICD-10-PCS; CPT 43235; principal; 2025-02-14 12:25)
DX: K92.2 Gastrointestinal hemorrhage, unspecified (principal); I48.0 Paroxysmal atrial fibrillation; E11.22 Type 2 diabetes mellitus with diabetic chronic kidney disease; N18.31 Chronic kidney disease, stage 3a; R10.12 Left upper quadrant pain; K75.81 Nonalcoholic steatohepatitis (NASH); Z86.73 Personal history of transient ischemic attack (TIA), and cerebral infarction without residual deficits; K64.4 Residual hemorrhoidal skin tags; Z79.84 Long term (current) use of oral hypoglycemic drugs; E66.9 Obesity, unspecified; K21.9 Gastro-esophageal reflux disease without esophagitis; I12.9 Hypertensive chronic kidney disease with stage 1 through stage 4 chronic kidney disease, or unspecified chronic kidney disease; E78.5 Hyperlipidemia, unspecified; D50.9 Iron deficiency anemia, unspecified; Z86.718 Personal history of other venous thrombosis and embolism; Z79.899 Other long term (current) drug therapy; D68.32 Hemorrhagic disorder due to extrinsic circulating 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; K31.7 Polyp of stomach and duodenum; J45.909 Unspecified asthma, uncomplicated; Z79.01 Long term (current) use of 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; Z79.51 Long term (current) use of inhaled steroids; Z95.1 Presence of aortocoronary bypass graft
CPT/HCPCS: 44361; 36415; 74177; 80053; 81001; 82274; 82962; 83690; 85014; 85018; 85025; 85610; 85730; 86850; 86870; 86900; 86901; 86905; 88305; 93005; 94668; 96365; 96366; 96367; 96368; 96375; 97802; 99221; 99284; Q9967; A4216; G0378; J0696; J2405

== ENCOUNTER 2025-03-06 13:48 | Outpatient (RCR) | payer MEDICARE, SELFPAY ==
[2025-03-06 14:36] LABS: Hematocrit 36.0 % (37-47); Hemoglobin 11.5 g/dL (12.0-15.0); Immature Granulocytes Count 0.020 X10^3/uL (0.0-0.0); Mean Corp Hgb Conc 31.9 g/dL (32-36); Mean Corpuscular Volume 82.0 fL (81-99); Mean Platelet Vol. 11.0 fl (6.2-12.0); NRBC Flagged by Analyzer 0 % (0-5); Platelet Count 235 K/mm3 (150-450); RBC Distribution Width CV 14.6 % (11.6-14.6); RBC Distribution Width SD 44.0 fl (35.1-43.9); Red Blood Count 4.39 M/mm3 (4.2-5.4); White Blood Count 7.9 K/mm3 (4.4-11.0)
[2025-03-06 15:05] LABS: AST(SGOT) 36 U/L (<=31); Alanine Aminotransfer ALT/SGPT 21 U/L (<=34); Albumin, Serum 4.0 g/dL (3.4-4.8); Alkaline Phosphatase 110 U/L (35-104); Anion Gap 9 (7-18); BUN 21 mg/dL (4-19); BUN/Creat Ratio 18.7 RATIO (10-20); Calcium,Total 10.2 mg/dL (7.6-11.0); Carbon Dioxide 24.1 mmol/L (20.0-29.0); Chloride 103 mmol/L (96-106); Globulin 3.9 g/dL (2.2-4.2); Glucose 213 mg/dL (70-99); Potassium 4.6 mmol/L (3.5-5.1)
[2025-03-06 15:14] LABS: Prothrombin Time (Protime)PT. 29.0 SECONDS (11.7-14.9)
== END 2025-03-06 18:00 | disposition home or self-care (01) ==
LOC: LAB 13:48
PROVIDERS: Nurse Practitioner Family; Student in an Organized Health Care Education/Training Program; PCP Family Medicine; Referring Provider Physician Assistant Medical; Visit Provider Physician Assistant Medical
DX: I48.0 Paroxysmal atrial fibrillation (principal); Z79.01 Long term (current) use of 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; D64.9 Anemia, unspecified; I44.2 Atrioventricular block, complete; Z95.0 Presence of cardiac pacemaker; I82.412 Acute embolism and thrombosis of left femoral vein
CPT/HCPCS: 36415; 80053; 85025; 85610